=== PATIENT | male | born 1955 | race Caucasian/White ===

== ENCOUNTER 2017-01-01 21:50 | Inpatient (IN) | payer BC ==
[~2017-01-01] VITALS: Ht 182.9 cm; Wt 169.6 kg
[~2017-01-01 21:50] MED LIST: ATOR20TA PO; CITA40TA5 PO; CLOP75TA57 PO; INSU100V13 SQ; INSU100V31 SQ; LISI10TA2 PO; METF500T4 PO; NIAC500T PO; TAMS0.4C97 PO
[2017-01-01 22:42] LABS: BILIRUBIN,URINE SMALL (NEG); GLUCOSE,URINE >=1000 mg/dL (NEG); NITRITE,URINE NEGATIVE (NEG); PROTEIN,URINE 100 mg/dL (NEG-TRACE)
[2017-01-01 22:48] LABS: BASO % 0 % (0-3); EOS % 0 % (0-3); HEMOGLOBIN 9.6 g/dL (13.0-17.5); LYMPH # 0.5 x10^3/uL (1.0-4.8); LYMPH % 3 % (24-48); MEAN CORPUSCULAR HEMOGLOBIN 31 pg (25-35); MEAN CORPUSCULAR HGB CONC 33 g/dL (31-37); MEAN CORPUSCULAR VOLUME 93 fL (79-100); MONO % 9 % (0-9); NEUT % 88 % (31-73); PLATELET COUNT 142 x10^3/uL (140-400); RED BLOOD COUNT 3.13 x10^6/uL (4.30-5.70); RED CELL DISTRIBUTION WIDTH 15.3 % (11.5-14.5); WHITE BLOOD COUNT 16.7 x10^3/uL (4.0-11.0)
[2017-01-01 22:59] LABS: ALBUMIN/GLOBULIN RATIO 0.8 (1.0-1.7); CREATININE 1.8 mg/dL (0.7-1.3); GFR 38.4; POTASSIUM 4.3 mmol/L (3.5-5.1); TOTAL BILIRUBIN 1.5 mg/dL (0.2-1.0); TOTAL PROTEIN 6.7 g/dL (6.4-8.2)
[2017-01-01] MEDS ORDERED: IV NORMAL SALINE 1000ML BAG 1,000 ML IV ONE (23:00)
[2017-01-01 23:02] LABS: BACTERIA,URINE 0 /HPF (0-FEW); RBC,URINE 0 /HPF (0-2); SQUAMOUS EPITHELIAL CELL,UR OCC /LPF; WBC,URINE OCC /HPF (0-4)
[2017-01-02] VITALS (7 sets, daily range): BP systolic 85–128; BP diastolic 53–73
[2017-01-02] MEDS ORDERED: HYDROCORTISONE ACETATE 25 MG SUPP.RECT PR ONE
[2017-01-02] MEDS ORDERED: VANCOMYCIN 2 GM in IV NORMAL SALINE 500ML BAG 500 ML IV ONE ×2
[2017-01-02] MEDS ORDERED: AMPICILLIN/SULBACTAM 3 GM in IV NORMAL SALINE 100ML 100 ML IV ONE ×2
[2017-01-02] MEDS: IV NORMAL SALINE 1000ML BAG 1,000 ML IV SCH ×3 (00:32→04:10)
[2017-01-02] MEDS ORDERED: HYDROmorphone 2 MG/ML VIAL ONE (00:33)
[2017-01-02] MEDS ORDERED: ONDANSETRON PF 4 MG/2 ML VIAL. IV ONE (01:00)
[2017-01-02] MEDS ORDERED: HYDROmorphone 2 MG/ML VIAL IV ONE (01:00)
[2017-01-02] MEDS ORDERED: ACETAMINOPHEN 325 MG TABLET. PO PRN (01:15)
[2017-01-02] MEDS ORDERED: ONDANSETRON PF 4 MG/2 ML VIAL. IV PRN (01:15)
[2017-01-02 01:42] LABS: PLT ESTIMATE ADEQUATE (ADEQUATE)
[2017-01-02] MEDS: fentaNYL PF VIAL 100 MCG/2 ML VIAL IV PRN ×5 (01:59→20:45)
[2017-01-02] MEDS: VANCOMYCIN PER PHARMACY MC PRN ×2 (02:53→13:53)
[2017-01-02] MEDS ORDERED: ESOM40CA PO (03:02)
[2017-01-02] MEDS ORDERED: LOSA50TA6 PO (03:02)
[2017-01-02] MEDS ORDERED: CELE200C PO (03:02)
[2017-01-02] MEDS ORDERED: CHOL10003 PO (03:02)
[2017-01-02] MEDS ORDERED: INSU100C SQ (03:02)
[2017-01-02] MEDS ORDERED: GABA-586 PO (03:02)
--- NOTE | 2017-01-02 06:12 | PHYS DOC ---
Past Medical History Past Medical History: CVA, Depression, Diabetes-Type II, GERD, High Cholesterol , Hypertension, Other Additional Past Medical Histor: charcoit foot, NEUROPATHY, SLEEP APNEA Past Surgical History: Cholecystectomy, Other Additional Past Surgical Histo: right foot surgery, hemmorhoid surgery, non- descended testicle, hernia, R K Alcohol Use: None Drug Use: None Adult General Chief Complaint Chief Complaint: MULTIPLE COMPLAINTS HPI HPI Patient is a 61 year old [f__sex] who presents with [] Review of Systems Review of Systems Constitutional: Denies fever or chills [] Eyes: Denies change in visual acuity, redness, or eye pain [] HENT: Denies nasal congestion or sore throat [] Respiratory: Denies cough or shortness of breath [] Cardiovascular: No additional information not addressed in HPI [] GI: Denies abdominal pain, nausea, vomiting, bloody stools or diarrhea [] : Denies dysuria or hematuria [] Musculoskeletal: Denies back pain or joint pain [] Integument: Denies rash or skin lesions [] Neurologic: Denies headache, focal weakness or sensory changes [] Endocrine: Denies polyuria or polydipsia [] Current Medications Current Medications Current Medications Medications (Trade) Dose Ordered Sig/Serenity Start Time Stop Time Status Last Admin Dose Admin Sodium Chloride 1,000 ml @ 1,000 mls/hr 1X ONCE 01/01/17 23:00 01/01/17 23:59 DC 01/01/17 23:15 1,000 MLS/HR Vancomycin HCl (Vanco Per Pharmacy) 1 each PRN DAILY PRN 01/01/17 23:30 01/02/17 02:53 1 EACH Physical Exam Physical Exam Constitutional: Well developed, well nourished, no acute distress, non-toxic appearance. [] HENT: Normocephalic, atraumatic, bilateral external ears normal, oropharynx moist, no oral exudates, nose normal. [] Eyes: PERRLA, EOMI, conjunctiva normal, no discharge. [] Neck: Normal range of motion, no tenderness, supple, no stridor. [] Cardiovascular:Heart rate regular rhythm, no murmur [] Lungs & Thorax: Bilateral breath sounds clear to auscultation [] Abdomen: Bowel sounds normal, soft, no tenderness, no masses, no pulsatile masses. [] Skin: Warm, dry, no erythema, no rash. [] Back: No tenderness, no CVA tenderness. [] Extremities: No tenderness, no cyanosis, no clubbing, ROM intact, no edema. [] Neurologic: Alert and oriented X 3, normal motor function, normal sensory function, no focal deficits noted. [] Psychologic: Affect normal, judgement normal, mood normal. [] Current Patient Data Vital Signs Vital Signs Date Time Temp Pulse Resp B/P (MAP) Pulse Ox O2 Delivery O2 Flow Rate FiO2 01/01/17 23:30 102 36 96/54 (68) 95 Nasal Cannula 2.0 01/01/17 22:31 99.4 99.4 Lab Values Laboratory Tests Test 01/01/17 22:23 01/01/17 22:25 Glucose (Fingerstick) 453 mg/dL (70-99) H White Blood Count 16.7 x10^3/uL (4.0-11.0) H Red Blood Count 3.13 x10^6/uL (4.30-5.70) L Hemoglobin 9.6 g/dL (13.0-17.5) L Hematocrit 29.0 % (39.0-53.0) L Mean Corpuscular Volume 93 fL (79-100) Mean Corpuscular Hemoglobin 31 pg (25-35) Mean Corpuscular Hemoglobin Concent 33 g/dL (31-37) Red Cell Distribution Width 15.3 % (11.5-14.5) H Platelet Count 142 x10^3/uL (140-400) Neutrophils (%) (Auto) 88 % (31-73) H Lymphocytes (%) (Auto) 3 % (24-48) L Monocytes (%) (Auto) 9 % (0-9) Eosinophils (%) (Auto) 0 % (0-3) Basophils (%) (Auto) 0 % (0-3) Neutrophils # (Auto) 14.6 x10^3uL (1.8-7.7) H Lymphocytes # (Auto) 0.5 x10^3/uL (1.0-4.8) L Monocytes # (Auto) 1.5 x10^3/uL (0.0-1.1) H Eosinophils # (Auto) 0.0 x10^3/uL (0.0-0.7) Basophils # (Auto) 0.0 x10^3/uL (0.0-0.2) Segmented Neutrophils % 68 % (35-66) H Band Neutrophils % 23 % (0-9) H Lymphocytes % 5 % (24-48) L Monocytes % 4 % (0-10) Platelet Estimate Adequate (ADEQUATE) Urine Collection Type Unknown Urine Color Evita Urine Clarity Cloudy Urine pH 5.0 Urine Specific [place] >=1.030 Urine Protein 100 mg/dL (NEG-TRACE) Urine Glucose (UA) >=1000 mg/dL (NEG) Urine Ketones (Stick) Trace mg/dL (NEG) Urine Blood Trace (NEG) Urine Nitrite Negative (NEG) Urine Bilirubin Small (NEG) Urine Urobilinogen Dipstick 1.0 mg/dL (0.2 mg/dL) Urine Leukocyte Esterase Negative (NEG) Urine RBC 0 /HPF (0-2) Urine WBC Occ /HPF (0-4) Urine Squamous Epithelial Cells Occ /LPF Urine Bacteria 0 /HPF (0-FEW) Urine Hyaline Casts Few /HPF Urine Granular Casts Few /HPF Sodium Level 132 mmol/L (136-145) L Potassium Level 4.3 mmol/L (3.5-5.1) Chloride Level 96 mmol/L (98-107) L Carbon Dioxide Level 20 mmol/L (21-32) L Anion Gap 16 (6-14) H Blood Urea Nitrogen 30 mg/dL (8-26) H Creatinine 1.8 mg/dL (0.7-1.3) H Estimated GFR (Cockcroft-Gault) 38.4 BUN/Creatinine Ratio 17 (6-20) Glucose Level 504 mg/dL (70-99) *H Calcium Level 8.0 mg/dL (8.5-10.1) L Total Bilirubin 1.5 mg/dL (0.2-1.0) H Aspartate Amino Transferase (AST) 14 U/L (15-37) L Alanine Aminotransferase (ALT) 22 U/L (16-63) Alkaline Phosphatase 90 U/L (46-116) Troponin I Quantitative < 0.017 ng/mL (0.000-0.055) Total Protein 6.7 g/dL (6.4-8.2) Albumin 3.0 g/dL (3.4-5.0) L Albumin/Globulin Ratio 0.8 (1.0-1.7) L Lipase 81 U/L (73-393) Laboratory Tests 01/01/17 22:25 Laboratory Tests 01/01/17 22:25 EKG EKG [] Radiology/Procedures Radiology/Procedures [] Course & Med Decision Making Course & Med Decision Making Pertinent Labs and Imaging studies reviewed. (See chart for details) [] Dragon Disclaimer Dragon Disclaimer This electronic medical record was generated, in whole or in part, using a voice recognition dictation system. Departure Departure Impression: Primary Impression: Diabetic foot ulcer Additional Impressions: Sepsis Hyperglycemia Disposition: ADMITTED INPATIENT Admitting Physician: Other (reusch) Condition: GUARDED Referrals: TEE BENAVIDES MD (PCP) Problem Qualifiers LEO SCHULTE MD Jan 02, 2017 06:12
--- NOTE | 2017-01-02 08:18 | RAD ---
Indication diabetic. Admission. Protocol study. A single view of the chest was obtained and is compared to an exam 06/09/2013. Heart size is at the upper limits of normal. There is no congestive heart failure. There is no focal infiltrate. Significant pleural fluid is not seen. There is no pneumothorax. Some increased density at the left lung base is likely a reflection of overlying soft tissues. IMPRESSION: No acute finding apparent in the chest
--- NOTE | 2017-01-02 08:25 | RAD ---
Indication diabetic foot. Ulcer.. Assess for potential osteomyelitis. AP oblique and lateral views of the right foot were obtained. Arthrodesis procedure is noted. Vascular calcification is noted. No acute bony finding is seen. Plain film findings of osteomyelitis are not seen. IMPRESSION: Chronic changes. No acute bony finding seen
[2017-01-02] MEDS ORDERED: IV NORMAL SALINE 1000ML BAG 1,000 ML IV ONE (08:45)
[2017-01-02] MEDS ORDERED: DEXTROSE 50% 25 GM / 50ML DISP.SYRIN. IV PRN (08:45)
[2017-01-02] MEDS ORDERED: CELECOXIB 200 MG CAPSULE. PO SCH (09:00)
--- NOTE | 2017-01-02 09:09 | PDOC1 ---
History and Physical Date of Admission Date of Admission DATE: 01/02/17 TIME: 09:01 History of Present Illness History of Present Illness Bunny presents with pain and inability to walk. Pain in right heel is new, new lesion, ulcer with weeping, photos taken, now wrapped. he complains of pain, 6/10, left heel, right knee, right hip and low back. Pain has been worsening, and progressively he cannot walk, the past few weeks. Blood sugar in 500 range, at home, sometime > 600, he has not notified Dr. Costello of this. ONly takes meal-time insulin, 23 u. 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 Current Problem List Problem List Problems Medical Problems: (1) Diabetic foot ulcer Status: Acute (2) Hyperglycemia Status: Acute (3) Sepsis Status: Acute Problems: Current Medications Current Medications Current Medications Sodium Chloride 1,000 ml @ 1,000 mls/hr 1X ONCE IV Last administered on 23:15; Start 01/01/17 at 23:00; Stop 01/01/17 at 23:59; Status DC Ampicillin Sodium/ Sulbactam Sodium 3 gm/Sodium Chloride 100 ml @ 200 mls/hr 1X ONCE IV Last administered on 01/01/17 23:43; Start 01/02/17 at 00:00; Stop 01/02/17 at 00:29; Status DC Vancomycin HCl (Vanco Per Pharmacy) 1 each PRN DAILY PRN MC SEE COMMENTS Last administered on 01/02/17 02:53; Start 01/01/17 at 23:30 Vancomycin HCl 2 gm/Sodium Chloride 500 ml @ 250 mls/hr 1X ONCE IV Last administered on 01/02/17 00:32; Start 01/02/17 at 00:00; Stop 01/02/17 at 01:59 ; Status DC Sodium Chloride 1,000 ml @ 2,000 mls/hr Q30M IV Last administered on 04:10; Start 01/02/17 at 00:00; Stop 01/02/17 at 02:15; Status DC Hydrocortisone Acetate (Anucort-Hc) 25 mg 1X ONCE FL Last administered on 01/01 23:43; Start 01/02/17 at 00:00; Stop 01/02/17 at 00:01; Status DC Hydromorphone HCl (Dilaudid) 1 mg 1X ONCE IV Last administered on 01/02/17 00 :35; Start 01/02/17 at 01:00; Stop 01/02/17 at 01:01; Status DC Ondansetron HCl (Zofran) 4 mg 1X ONCE IV Last administered on 01/02/17 00:35 ; Start 01/02/17 at 01:00; Stop 01/02/17 at 01:01; Status DC Hydromorphone HCl (Dilaudid) 2 mg STK-MED ONCE .ROUTE ; Start 01/02/17 at 00:33 ; Stop 01/02/17 at 00:34; Status DC Ondansetron HCl (Zofran) 4 mg PRN Q8HRS PRN IV NAUSEA/VOMITING; Start 01/02/17 at 01:15; Stop 01/03/17 at 01:14 Fentanyl Citrate (Fentanyl 2ml Vial) 50 mcg PRN Q2HR PRN IV SEVERE PAIN Last administered on 01/02/17 04:09; Start 01/02/17 at 01:15; Stop 01/03/17 at 01:14 Acetaminophen (Tylenol) 650 mg PRN Q4HRS PRN PO FEVER; Start 01/02/17 at 01:15 ; Stop 01/03/17 at 01:14 Vancomycin HCl 2 gm/Sodium Chloride 500 ml @ 250 mls/hr Q12H IV ; Start at 12:00 Vancomycin HCl 1 each 1X ONCE MC ; Start 01/03/17 at 11:30; Stop 01/03/17 at 11 :31 Atorvastatin Calcium (Lipitor) 20 mg QHS PO ; Start 01/02/17 at 21:00 Celecoxib (CeleBREX) 200 mg BID PO ; Start 01/02/17 at 09:00 Vitamin D (Vitamin D3) 1,000 unit DAILY PO ; Start 01/02/17 at 09:00 Clopidogrel Bisulfate (Plavix) 75 mg DAILY PO ; Start 01/02/17 at 09:00 Losartan Potassium (Cozaar) 50 mg DAILY PO ; Start 01/02/17 at 09:00 Metformin HCl (Glucophage) 500 mg BID PO ; Start 01/02/17 at 09:00 Tamsulosin HCl (Flomax) 0.4 mg HS PO ; Start 01/02/17 at 21:00 Citalopram Hydrobromide (CeleXA) 40 mg DAILY PO ; Start 01/02/17 at 09:00 Pantoprazole Sodium (Protonix) 40 mg DAILYAC PO ; Start 01/02/17 at 09:00 Gabapentin (Neurontin) 300 mg BID PO ; Start 01/02/17 at 09:00 Insulin Aspart (NovoLOG) 23 units TIDAC SQ ; Start 01/02/17 at 11:30 Insulin Aspart (NovoLOG) 0-9 UNITS QIDACHS SQ ; Start 01/02/17 at 11:30 Dextrose (Dextrose 50%-Water Syringe) 12.5 gm PRN Q15MIN PRN IV SEE COMMENTS; Start 01/02/17 at 08:45 Sodium Chloride 1,000 ml @ 100 mls/hr 1X ONCE IV ; Start 01/02/17 at 08:45; Stop 01/02/17 at 18:44 Lidocaine (Lidoderm) 1 patch DAILY TD ; Start 01/02/17 at 09:00; Status UNV Insulin Detemir (Levemir) 40 units DAILY08 SQ ; Start 01/02/17 at 09:00; Status UNV Active Scripts Active Reported Humalog (Insulin Lispro) 100 Unit/1 Ml Cartridge 23 Unit SQ TIDAC Vitamin D3 (Cholecalciferol (Vitamin D3)) 1,000 Unit Tablet 1 Tab PO DAILY Nexium Capsule (Esomeprazole Magnesium) 40 Mg Capsule.dr 1 Cap PO DAILY Losartan Potassium 50 Mg Tablet 50 Mg PO DAILY Gabapentin 300 Mg Capsule 300 Mg PO BID Celebrex (Celecoxib) 200 Mg Capsule 200 Mg PO BID 30 Days Citalopram Hbr (Citalopram Hydrobromide) 40 Mg Tablet 40 Mg PO DAILY Lipitor (Atorvastatin Calcium) 20 Mg Tablet 20 Mg PO QHS Flomax (Tamsulosin Hcl) 0.4 Mg Cap.er.24h 0.4 Mg PO HS Metformin Hcl 500 Mg Tablet 500 Mg PO BID Plavix (Clopidogrel Bisulfate) 75 Mg Tablet 75 Mg PO DAILY Allergies Allergies: Coded Allergies: morphine (Verified Allergy, Intermediate, 01/02/17) causes hallucinations Physical Exam General: Alert, Oriented X3, Cooperative, mild distress HEENT: EOMI, Mucous membr. moist/pink Lungs: Clear to auscultation, Normal air movement Heart: S1S2, no gallops, no murmurs Abdomen: Normal bowel sounds, Soft (very obese) Extremities: No clubbing, Other (1+ BLE edema) Skin: No rashes Neuro: Normal speech, Sensation intact Psych/Mental Status: Mental status NL, Mood NL Vitals Vitals Vital Signs Date Time Temp Pulse Resp B/P (MAP) Pulse Ox O2 Delivery O2 Flow Rate FiO2 01/02/17 07:00 98.2 99 22 114/71 (85) 96 Room Air 98.2 01/02/17 04:39 2.0 Labs Labs Laboratory Tests Test 01/01/17 22:23 01/01/17 22:25 01/02/17 00:05 01/02/17 06:51 Glucose (Fingerstick) 453 mg/dL (70-99) White Blood Count 16.7 x10^3/uL (4.0-11.0) Red Blood Count 3.13 x10^6/uL (4.30-5.70) Hemoglobin 9.6 g/dL (13.0-17.5) Hematocrit 29.0 % (39.0-53.0) Mean Corpuscular Volume 93 fL (79-100) Mean Corpuscular Hemoglobin 31 pg (25-35) Mean Corpuscular Hemoglobin Concent 33 g/dL (31-37) Red Cell Distribution Width 15.3 % (11.5-14.5) Platelet Count 142 x10^3/uL (140-400) Neutrophils (%) (Auto) 88 % (31-73) Lymphocytes (%) (Auto) 3 % (24-48) Monocytes (%) (Auto) 9 % (0-9) Eosinophils (%) (Auto) 0 % (0-3) Basophils (%) (Auto) 0 % (0-3) Neutrophils # (Auto) 14.6 x10^3uL (1.8-7.7) Lymphocytes # (Auto) 0.5 x10^3/uL (1.0-4.8) Monocytes # (Auto) 1.5 x10^3/uL (0.0-1.1) Eosinophils # (Auto) 0.0 x10^3/uL (0.0-0.7) Basophils # (Auto) 0.0 x10^3/uL (0.0-0.2) Segmented Neutrophils % 68 % (35-66) Band Neutrophils % 23 % (0-9) Lymphocytes % 5 % (24-48) Monocytes % 4 % (0-10) Platelet Estimate Adequate (ADEQUATE) Urine Collection Type Unknown Urine Color Evita Urine Clarity Cloudy Urine pH 5.0 Urine Specific [place] >=1.030 Urine Protein 100 mg/dL (NEG-TRACE) Urine Glucose (UA) >=1000 mg/dL (NEG) Urine Ketones (Stick) Trace mg/dL (NEG) Urine Blood Trace (NEG) Urine Nitrite Negative (NEG) Urine Bilirubin Small (NEG) Urine Urobilinogen Dipstick 1.0 mg/dL (0.2 mg/dL) Urine Leukocyte Esterase Negative (NEG) Urine RBC 0 /HPF (0-2) Urine WBC Occ /HPF (0-4) Urine Squamous Epithelial Cells Occ /LPF Urine Bacteria 0 /HPF (0-FEW) Urine Hyaline Casts Few /HPF Urine Granular Casts Few /HPF Sodium Level 132 mmol/L (136-145) Potassium Level 4.3 mmol/L (3.5-5.1) Chloride Level 96 mmol/L (98-107) Carbon Dioxide Level 20 mmol/L (21-32) Anion Gap 16 (6-14) Blood Urea Nitrogen 30 mg/dL (8-26) Creatinine 1.8 mg/dL (0.7-1.3) Estimated GFR (Cockcroft-Gault) 38.4 BUN/Creatinine Ratio 17 (6-20) Glucose Level 504 mg/dL (70-99) Calcium Level 8.0 mg/dL (8.5-10.1) Total Bilirubin 1.5 mg/dL (0.2-1.0) Aspartate Amino Transf (AST/SGOT) 14 U/L (15-37) Alanine Aminotransferase (ALT/SGPT) 22 U/L (16-63) Alkaline Phosphatase 90 U/L (46-116) Troponin I Quantitative < 0.017 ng/mL (0.000-0.055) Total Protein 6.7 g/dL (6.4-8.2) Albumin 3.0 g/dL (3.4-5.0) Albumin/Globulin Ratio 0.8 (1.0-1.7) Lipase 81 U/L (73-393) Lactic Acid Level 3.3 mmol/L (0.4-2.0) 1.1 mmol/L (0.4-2.0) Test 01/02/17 07:30 Glucose (Fingerstick) 304 mg/dL (70-99) Laboratory Tests Test 01/01/17 22:23 01/01/17 22:25 01/02/17 00:05 01/02/17 06:51 Glucose (Fingerstick) 453 mg/dL (70-99) White Blood Count 16.7 x10^3/uL (4.0-11.0) Red Blood Count 3.13 x10^6/uL (4.30-5.70) Hemoglobin 9.6 g/dL (13.0-17.5) Hematocrit 29.0 % (39.0-53.0) Mean Corpuscular Volume 93 fL (79-100) Mean Corpuscular Hemoglobin 31 pg (25-35) Mean Corpuscular Hemoglobin Concent 33 g/dL (31-37) Red Cell Distribution Width 15.3 % (11.5-14.5) Platelet Count 142 x10^3/uL (140-400) Neutrophils (%) (Auto) 88 % (31-73) Lymphocytes (%) (Auto) 3 % (24-48) Monocytes (%) (Auto) 9 % (0-9) Eosinophils (%) (Auto) 0 % (0-3) Basophils (%) (Auto) 0 % (0-3) Neutrophils # (Auto) 14.6 x10^3uL (1.8-7.7) Lymphocytes # (Auto) 0.5 x10^3/uL (1.0-4.8) Monocytes # (Auto) 1.5 x10^3/uL (0.0-1.1) Eosinophils # (Auto) 0.0 x10^3/uL (0.0-0.7) Basophils # (Auto) 0.0 x10^3/uL (0.0-0.2) Segmented Neutrophils % 68 % (35-66) Band Neutrophils % 23 % (0-9) Lymphocytes % 5 % (24-48) Monocytes % 4 % (0-10) Platelet Estimate Adequate (ADEQUATE) Urine Collection Type Unknown Urine Color Evita Urine Clarity Cloudy Urine pH 5.0 Urine Specific [place] >=1.030 Urine Protein 100 mg/dL (NEG-TRACE) Urine Glucose (UA) >=1000 mg/dL (NEG) Urine Ketones (Stick) Trace mg/dL (NEG) Urine Blood Trace (NEG) Urine Nitrite Negative (NEG) Urine Bilirubin Small (NEG) Urine Urobilinogen Dipstick 1.0 mg/dL (0.2 mg/dL) Urine Leukocyte Esterase Negative (NEG) Urine RBC 0 /HPF (0-2) Urine WBC Occ /HPF (0-4) Urine Squamous Epithelial Cells Occ /LPF Urine Bacteria 0 /HPF (0-FEW) Urine Hyaline Casts Few /HPF Urine Granular Casts Few /HPF Sodium Level 132 mmol/L (136-145) Potassium Level 4.3 mmol/L (3.5-5.1) Chloride Level 96 mmol/L (98-107) Carbon Dioxide Level 20 mmol/L (21-32) Anion Gap 16 (6-14) Blood Urea Nitrogen 30 mg/dL (8-26) Creatinine 1.8 mg/dL (0.7-1.3) Estimated GFR (Cockcroft-Gault) 38.4 BUN/Creatinine Ratio 17 (6-20) Glucose Level 504 mg/dL (70-99) Calcium Level 8.0 mg/dL (8.5-10.1) Total Bilirubin 1.5 mg/dL (0.2-1.0) Aspartate Amino Transf (AST/SGOT) 14 U/L (15-37) Alanine Aminotransferase (ALT/SGPT) 22 U/L (16-63) Alkaline Phosphatase 90 U/L (46-116) Troponin I Quantitative < 0.017 ng/mL (0.000-0.055) Total Protein 6.7 g/dL (6.4-8.2) Albumin 3.0 g/dL (3.4-5.0) Albumin/Globulin Ratio 0.8 (1.0-1.7) Lipase 81 U/L (73-393) Lactic Acid Level 3.3 mmol/L (0.4-2.0) 1.1 mmol/L (0.4-2.0) Test 01/02/17 07:30 Glucose (Fingerstick) 304 mg/dL (70-99) VTE Prophylaxis Ordered VTE Prophylaxis Devices: No VTE Pharmacological Prophylaxi: Yes Assessment/Plan Assessment/Plan right foot heel ulceration, DM2 foot ulcer, vanc and unasyn started. sepsis, w/ HTN on admit, accel from marked pain, now improved Pain is severe, knee, hip and back pain, try lidoderm and narcotic meds for control. Pain is too high to asif MRI this AM. may need MRI foot tomorrow consult Physiatry for poor mobility, mult pain problems. moderate malnutrition in morbid obesity, BMI 46 Dm2, very poor control, add SSI and long-acting, he has Endo f/u sched for january Anemia of CKD, CKD 3 of DM2 hyponatremia, likely dry, IV Fluid, recheck labs in AM DARYL WANG MD Jan 02, 2017 09:09
[2017-01-02] MEDS: metFORMIN 500 MG TABLET PO SCH ×2 (09:50→23:12)
[2017-01-02] MEDS: CHOLECALCIFEROL (VITAMIN D3) 1,000 UNIT TABLET PO SCH (09:50)
[2017-01-02] MEDS: PANTOPRAZOLE 40 MG TABLET.DR. PO SCH (09:50)
[2017-01-02] MEDS: CITALOPRAM 20 MG TABLET. PO SCH (09:50)
[2017-01-02] MEDS: GABAPENTIN 300 MG CAPSULE. PO SCH ×2 (09:51→23:12)
[2017-01-02] MEDS: LOSARTAN POTASSIUM 50 MG TABLET. PO SCH (09:51)
[2017-01-02] MEDS: CLOPIDOGREL BISULFATE 75 MG TABLET PO SCH (09:51)
[2017-01-02] MEDS: ENOXAPARIN 40 MG/0.4 ML SYRINGE. SQ SCH ×2 (09:52→23:12)
[2017-01-02] MEDS: LIDOCAINE (700MG/PATCH) PATCH. TD SCH (09:52)
--- NOTE | 2017-01-02 11:45 | RAD ---
Indication left calf pain and swelling. Grayscale color Doppler and spectral imaging was performed. Examination was targeted to the veins of the left lower extremity. The common femoral, femoral and popliteal veins demonstrate normal flow compressibility and augmentation. No thrombus is seen. The visualized calf veins appeared unremarkable. The right common femoral vein also appeared normal. IMPRESSION: Negative left lower extremity venous analysis for DVT
--- NOTE | 2017-01-02 11:56 | RAD ---
Indication swelling and pain. AP oblique and lateral views of the left ankle were obtained. No prior imaging of the ankle is available. There is an essentially nondisplaced spiral fracture involving the distal fibula. There is some soft tissue swelling. An additional finding is not seen. IMPRESSION: Nondisplaced fracture distal fibula
--- NOTE | 2017-01-02 11:57 | PDOC2 ---
CONSULT Date of Consult Date of Consult DATE: 01/02/17 TIME: 11:54 Reason for Consult Reason for Consult: Bilateral foot and ankle issues, right heel ulcer, left ankle pain Referring Physician Referring Physician: Sil Identification/Chief Complaint Chief Complaint Right heel ulcer, and left ankle pain Problems: Source Source: Chart review, Patient History of Present Illness Reason for Visit: This 61-year-old man who is retired but lives in his own home and "hobbles" chair to chair has had a right ankle heel ulcer for 2 weeks. He has a previous right ankle fusion surgery performed by Dr. Cyril Lundberg in 2012. He developed left ankle pain, possible trauma. He has severe neuropathy in both lower extremities. He is admitted to the hospital, and I was asked to see him by Dr. Mujica Past Medical History Cardiovascular: HTN, Hyperlipidemia CENTRAL NERVOUS SYSTEM: CVA, Periperal neuropathy, Other (sleep apnea) GI: GERD Psych: Depression Musculoskeletal: low back pain, Osteoarthritis Renal/: Chronic renal insuff Endocrine: Diabetes Current Problem List Problem List Problems Medical Problems: (1) Diabetic foot ulcer Status: Acute (2) Hyperglycemia Status: Acute (3) Sepsis Status: Acute Current Medications Current Medications Current Medications Sodium Chloride 1,000 ml @ 1,000 mls/hr 1X ONCE IV Last administered on 23:15; Start 01/01/17 at 23:00; Stop 01/01/17 at 23:59; Status DC Ampicillin Sodium/ Sulbactam Sodium 3 gm/Sodium Chloride 100 ml @ 200 mls/hr 1X ONCE IV Last administered on 01/01/17 23:43; Start 01/02/17 at 00:00; Stop 01/02/17 at 00:29; Status DC Vancomycin HCl (Vanco Per Pharmacy) 1 each PRN DAILY PRN MC SEE COMMENTS Last administered on 01/02/17 02:53; Start 01/01/17 at 23:30 Vancomycin HCl 2 gm/Sodium Chloride 500 ml @ 250 mls/hr 1X ONCE IV Last administered on 01/02/17 00:32; Start 01/02/17 at 00:00; Stop 01/02/17 at 01:59 ; Status DC Sodium Chloride 1,000 ml @ 2,000 mls/hr Q30M IV Last administered on 04:10; Start 01/02/17 at 00:00; Stop 01/02/17 at 02:15; Status DC Hydrocortisone Acetate (Anucort-Hc) 25 mg 1X ONCE ND Last administered on 01/01 23:43; Start 01/02/17 at 00:00; Stop 01/02/17 at 00:01; Status DC Hydromorphone HCl (Dilaudid) 1 mg 1X ONCE IV Last administered on 01/02/17 00 :35; Start 01/02/17 at 01:00; Stop 01/02/17 at 01:01; Status DC Ondansetron HCl (Zofran) 4 mg 1X ONCE IV Last administered on 01/02/17 00:35 ; Start 01/02/17 at 01:00; Stop 01/02/17 at 01:01; Status DC Hydromorphone HCl (Dilaudid) 2 mg STK-MED ONCE .ROUTE ; Start 01/02/17 at 00:33 ; Stop 01/02/17 at 00:34; Status DC Ondansetron HCl (Zofran) 4 mg PRN Q8HRS PRN IV NAUSEA/VOMITING; Start 01/02/17 at 01:15; Stop 01/03/17 at 01:14 Fentanyl Citrate (Fentanyl 2ml Vial) 50 mcg PRN Q2HR PRN IV SEVERE PAIN Last administered on 01/02/17 09:38; Start 01/02/17 at 01:15; Stop 01/03/17 at 01:14 Acetaminophen (Tylenol) 650 mg PRN Q4HRS PRN PO FEVER; Start 01/02/17 at 01:15 ; Stop 01/03/17 at 01:14 Vancomycin HCl 2 gm/Sodium Chloride 500 ml @ 250 mls/hr Q12H IV ; Start at 12:00 Vancomycin HCl 1 each 1X ONCE MC ; Start 01/03/17 at 11:30; Stop 01/03/17 at 11 :31 Atorvastatin Calcium (Lipitor) 20 mg QHS PO ; Start 01/02/17 at 21:00 Celecoxib (CeleBREX) 200 mg BID PO Last administered on 01/02/17 09:51; Start 01/02/17 at 09:00; Stop 01/02/17 at 10:30; Status DC Vitamin D (Vitamin D3) 1,000 unit DAILY PO Last administered on 01/02/17 09:50 ; Start 01/02/17 at 09:00 Clopidogrel Bisulfate (Plavix) 75 mg DAILY PO Last administered on 01/02/17 09 :51; Start 01/02/17 at 09:00 Losartan Potassium (Cozaar) 50 mg DAILY PO Last administered on 01/02/17 09:51 ; Start 01/02/17 at 09:00 Metformin HCl (Glucophage) 500 mg BID PO Last administered on 01/02/17 09:50; Start 01/02/17 at 09:00 Tamsulosin HCl (Flomax) 0.4 mg HS PO ; Start 01/02/17 at 21:00 Citalopram Hydrobromide (CeleXA) 40 mg DAILY PO Last administered on 01/02/17 09:50; Start 01/02/17 at 09:00 Pantoprazole Sodium (Protonix) 40 mg DAILYAC PO Last administered on 01/02/17 09:50; Start 01/02/17 at 09:00 Gabapentin (Neurontin) 300 mg BID PO Last administered on 01/02/17 09:51; Start 01/02/17 at 09:00 Insulin Aspart (NovoLOG) 23 units TIDAC SQ ; Start 01/02/17 at 11:30 Insulin Aspart (NovoLOG) 0-9 UNITS QIDACHS SQ ; Start 01/02/17 at 11:30 Dextrose (Dextrose 50%-Water Syringe) 12.5 gm PRN Q15MIN PRN IV SEE COMMENTS; Start 01/02/17 at 08:45 Sodium Chloride 1,000 ml @ 100 mls/hr 1X ONCE IV Last administered on 09:50; Start 01/02/17 at 08:45; Stop 01/02/17 at 18:44 Lidocaine (Lidoderm) 1 patch DAILY TD Last administered on 01/02/17 09:52; Start 01/02/17 at 09:00 Insulin Detemir (Levemir) 40 units DAILY08 SQ ; Start 01/02/17 at 09:00 Enoxaparin Sodium (Lovenox Per Pharmacy Prophylaxis Dosing) 1 each PRN DAILY PRN MC SEE COMMENTS; Start 01/02/17 at 09:15 Enoxaparin Sodium (Lovenox 40mg Syringe) 40 mg Q12H SQ Last administered on 7/ 22/17at 09:52; Start 01/02/17 at 10:00 Polysaccharide Iron Complex (Niferex 150) 150 mg BID PO ; Start 01/02/17 at 12: 00 Bisacodyl (Dulcolax Tab) 10 mg DAILY PO ; Start 01/02/17 at 12:00 Senna/Docusate Sodium (Senna Plus) 2 tab PRN BID PRN PO CONSTIPATION; Start at 10:45 Senna/Docusate Sodium (Senna Plus) 1 tab BID PO ; Start 01/02/17 at 12:00 Active Scripts Active Reported Humalog (Insulin Lispro) 100 Unit/1 Ml Cartridge 23 Unit SQ TIDAC Vitamin D3 (Cholecalciferol (Vitamin D3)) 1,000 Unit Tablet 1 Tab PO DAILY Nexium Capsule (Esomeprazole Magnesium) 40 Mg Capsule.dr 1 Cap PO DAILY Losartan Potassium 50 Mg Tablet 50 Mg PO DAILY Gabapentin 300 Mg Capsule 300 Mg PO BID Celebrex (Celecoxib) 200 Mg Capsule 200 Mg PO BID 30 Days Citalopram Hbr (Citalopram Hydrobromide) 40 Mg Tablet 40 Mg PO DAILY Lipitor (Atorvastatin Calcium) 20 Mg Tablet 20 Mg PO QHS Flomax (Tamsulosin Hcl) 0.4 Mg Cap.er.24h 0.4 Mg PO HS Metformin Hcl 500 Mg Tablet 500 Mg PO BID Plavix (Clopidogrel Bisulfate) 75 Mg Tablet 75 Mg PO DAILY Allergies Allergies: Coded Allergies: morphine (Verified Allergy, Intermediate, 01/02/17) causes hallucinations ROS General: No: Chills, Night Sweats PSYCHOLOGICAL ROS: YES: Depression Respiratory: YES: Cough Musculoskeletal: Yes Gait Disturbance Skin: Yes Skin Lesion Changes Physical Exam General: Cooperative, mild distress HEENT: Atraumatic Lungs: Normal air movement Heart: Regular rate Abdomen: Soft Extremities: Other (thready dorsalis pedis pulse bilaterally, barely palpable) Skin: Other (right heel ulcer, full-thickness with necrosis. Probable dry gangrene, possible deep osteomyelitis) Neuro: Other (nearly absent bilateral lower extremity light touch sensation, due to severe bilateral diabetic neuropathy) MUSCULOSKELETAL: Abnormal exam of right (calcaneus as above. The ankle proper seems more benign, and there are well-healed surgical scars from the prior ankle fusion surgery), Abnormal exam of left (ankle, with tenderness, swelling and trace warmth. Examination is suspicious for either trauma, gout flare at the ankle joint, or possibly a low-grade infection) Vitals VITALS Vital Signs Date Time Temp Pulse Resp B/P (MAP) Pulse Ox O2 Delivery O2 Flow Rate FiO2 01/02/17 11:00 98.0 104 22 105/59 (74) 90 Room Air 98.0 01/02/17 10:08 2.0 Labs Labs Laboratory Tests Test 01/01/17 22:23 01/01/17 22:25 01/02/17 00:05 01/02/17 06:51 Glucose (Fingerstick) 453 mg/dL (70-99) White Blood Count 16.7 x10^3/uL (4.0-11.0) Red Blood Count 3.13 x10^6/uL (4.30-5.70) Hemoglobin 9.6 g/dL (13.0-17.5) Hematocrit 29.0 % (39.0-53.0) Mean Corpuscular Volume 93 fL (79-100) Mean Corpuscular Hemoglobin 31 pg (25-35) Mean Corpuscular Hemoglobin Concent 33 g/dL (31-37) Red Cell Distribution Width 15.3 % (11.5-14.5) Platelet Count 142 x10^3/uL (140-400) Neutrophils (%) (Auto) 88 % (31-73) Lymphocytes (%) (Auto) 3 % (24-48) Monocytes (%) (Auto) 9 % (0-9) Eosinophils (%) (Auto) 0 % (0-3) Basophils (%) (Auto) 0 % (0-3) Neutrophils # (Auto) 14.6 x10^3uL (1.8-7.7) Lymphocytes # (Auto) 0.5 x10^3/uL (1.0-4.8) Monocytes # (Auto) 1.5 x10^3/uL (0.0-1.1) Eosinophils # (Auto) 0.0 x10^3/uL (0.0-0.7) Basophils # (Auto) 0.0 x10^3/uL (0.0-0.2) Segmented Neutrophils % 68 % (35-66) Band Neutrophils % 23 % (0-9) Lymphocytes % 5 % (24-48) Monocytes % 4 % (0-10) Platelet Estimate Adequate (ADEQUATE) Urine Collection Type Unknown Urine Color Evita Urine Clarity Cloudy Urine pH 5.0 Urine Specific [place] >=1.030 Urine Protein 100 mg/dL (NEG-TRACE) Urine Glucose (UA) >=1000 mg/dL (NEG) Urine Ketones (Stick) Trace mg/dL (NEG) Urine Blood Trace (NEG) Urine Nitrite Negative (NEG) Urine Bilirubin Small (NEG) Urine Urobilinogen Dipstick 1.0 mg/dL (0.2 mg/dL) Urine Leukocyte Esterase Negative (NEG) Urine RBC 0 /HPF (0-2) Urine WBC Occ /HPF (0-4) Urine Squamous Epithelial Cells Occ /LPF Urine Bacteria 0 /HPF (0-FEW) Urine Hyaline Casts Few /HPF Urine Granular Casts Few /HPF Sodium Level 132 mmol/L (136-145) Potassium Level 4.3 mmol/L (3.5-5.1) Chloride Level 96 mmol/L (98-107) Carbon Dioxide Level 20 mmol/L (21-32) Anion Gap 16 (6-14) Blood Urea Nitrogen 30 mg/dL (8-26) Creatinine 1.8 mg/dL (0.7-1.3) Estimated GFR (Cockcroft-Gault) 38.4 BUN/Creatinine Ratio 17 (6-20) Glucose Level 504 mg/dL (70-99) Calcium Level 8.0 mg/dL (8.5-10.1) Total Bilirubin 1.5 mg/dL (0.2-1.0) Aspartate Amino Transf (AST/SGOT) 14 U/L (15-37) Alanine Aminotransferase (ALT/SGPT) 22 U/L (16-63) Alkaline Phosphatase 90 U/L (46-116) Troponin I Quantitative < 0.017 ng/mL (0.000-0.055) Total Protein 6.7 g/dL (6.4-8.2) Albumin 3.0 g/dL (3.4-5.0) Albumin/Globulin Ratio 0.8 (1.0-1.7) Lipase 81 U/L (73-393) Lactic Acid Level 3.3 mmol/L (0.4-2.0) 1.1 mmol/L (0.4-2.0) Test 01/02/17 07:30 01/02/17 10:55 01/02/17 11:35 Glucose (Fingerstick) 304 mg/dL (70-99) 392 mg/dL (70-99) Uric Acid 6.9 mg/dL (3.5-7.2) Laboratory Tests Test 01/01/17 22:23 01/01/17 22:25 01/02/17 00:05 01/02/17 06:51 Glucose (Fingerstick) 453 mg/dL (70-99) White Blood Count 16.7 x10^3/uL (4.0-11.0) Red Blood Count 3.13 x10^6/uL (4.30-5.70) Hemoglobin 9.6 g/dL (13.0-17.5) Hematocrit 29.0 % (39.0-53.0) Mean Corpuscular Volume 93 fL (79-100) Mean Corpuscular Hemoglobin 31 pg (25-35) Mean Corpuscular Hemoglobin Concent 33 g/dL (31-37) Red Cell Distribution Width 15.3 % (11.5-14.5) Platelet Count 142 x10^3/uL (140-400) Neutrophils (%) (Auto) 88 % (31-73) Lymphocytes (%) (Auto) 3 % (24-48) Monocytes (%) (Auto) 9 % (0-9) Eosinophils (%) (Auto) 0 % (0-3) Basophils (%) (Auto) 0 % (0-3) Neutrophils # (Auto) 14.6 x10^3uL (1.8-7.7) Lymphocytes # (Auto) 0.5 x10^3/uL (1.0-4.8) Monocytes # (Auto) 1.5 x10^3/uL (0.0-1.1) Eosinophils # (Auto) 0.0 x10^3/uL (0.0-0.7) Basophils # (Auto) 0.0 x10^3/uL (0.0-0.2) Segmented Neutrophils % 68 % (35-66) Band Neutrophils % 23 % (0-9) Lymphocytes % 5 % (24-48) Monocytes % 4 % (0-10) Platelet Estimate Adequate (ADEQUATE) Urine Collection Type Unknown Urine Color Evita Urine Clarity Cloudy Urine pH 5.0 Urine Specific [place] >=1.030 Urine Protein 100 mg/dL (NEG-TRACE) Urine Glucose (UA) >=1000 mg/dL (NEG) Urine Ketones (Stick) Trace mg/dL (NEG) Urine Blood Trace (NEG) Urine Nitrite Negative (NEG) Urine Bilirubin Small (NEG) Urine Urobilinogen Dipstick 1.0 mg/dL (0.2 mg/dL) Urine Leukocyte Esterase Negative (NEG) Urine RBC 0 /HPF (0-2) Urine WBC Occ /HPF (0-4) Urine Squamous Epithelial Cells Occ /LPF Urine Bacteria 0 /HPF (0-FEW) Urine Hyaline Casts Few /HPF Urine Granular Casts Few /HPF Sodium Level 132 mmol/L (136-145) Potassium Level 4.3 mmol/L (3.5-5.1) Chloride Level 96 mmol/L (98-107) Carbon Dioxide Level 20 mmol/L (21-32) Anion Gap 16 (6-14) Blood Urea Nitrogen 30 mg/dL (8-26) Creatinine 1.8 mg/dL (0.7-1.3) Estimated GFR (Cockcroft-Gault) 38.4 BUN/Creatinine Ratio 17 (6-20) Glucose Level 504 mg/dL (70-99) Calcium Level 8.0 mg/dL (8.5-10.1) Total Bilirubin 1.5 mg/dL (0.2-1.0) Aspartate Amino Transf (AST/SGOT) 14 U/L (15-37) Alanine Aminotransferase (ALT/SGPT) 22 U/L (16-63) Alkaline Phosphatase 90 U/L (46-116) Troponin I Quantitative < 0.017 ng/mL (0.000-0.055) Total Protein 6.7 g/dL (6.4-8.2) Albumin 3.0 g/dL (3.4-5.0) Albumin/Globulin Ratio 0.8 (1.0-1.7) Lipase 81 U/L (73-393) Lactic Acid Level 3.3 mmol/L (0.4-2.0) 1.1 mmol/L (0.4-2.0) Test 01/02/17 07:30 01/02/17 10:55 01/02/17 11:35 Glucose (Fingerstick) 304 mg/dL (70-99) 392 mg/dL (70-99) Uric Acid 6.9 mg/dL (3.5-7.2) Images Images I reviewed the x-rays of bilateral ankles. The right ankle has a retrograde calcaneotibial nail. There is no remaining talus bone. The hardware is in good position. There is no definitive bridging or healing at the attempted fusion, and there may be a nonunion. Difficult to assess whether there is infection at the nonunion. There are degenerative changes and osteophytes at the remnant tibiocalcaneal joint. The left ankle shows a nondisplaced lateral malleolus fracture, with no widening of the medial clear space. Assessment/Plan Assessment/Plan Nondisplaced fracture of lateral malleolus of left fibula, initial encounter for closed fracture S82.65XA. Splinting and offloading would be appropriate for this fracture. Due to the diabetes he may need nonweightbearing to prevent a Charcot arthropathy or displacement. Plantar ulcer right heel. Consider osteomyelitis. Possible nonunion of the ankle fusion and possible osteomyelitis in that location. Severe diabetic neuropathy bilaterally. Poor pulses. This is likely a combination of neuropathic ulcer and ischemic vascular ulcer on the right. Obtained an MRI of the ankle to evaluate for osteomyelitis and marrow edema. Other option would include a 3-phase bone scan. Arterial Dopplers to assess blood flow. Further recommendations once these studies are completed. Bedrest, antibiotics, and pain control for now. Offloading of the right heel is appropriate at this time. DELVIN STROUD MD Jan 02, 2017 11:56
[2017-01-02] MEDS: SENNOSIDES/DOCUSATE 8.6/50MG TABLET. PO SCH ×2 (12:00→23:12)
[2017-01-02] MEDS: BISACODYL 5 MG TABLET.DR. PO SCH (12:00)
--- NOTE | 2017-01-02 12:00 | RAD ---
Indication wound left foot. Grayscale color Doppler and spectral imaging was performed. The examination was targeted to the major arteries of the lower extremities. On the right there is a biphasic waveform in the common femoral artery indicative of a component of inlet disease. A similar biphasic waveform is seen extending throughout the course of the superficial femoral artery into the popliteal artery. Posterior tibial artery proximally and distally demonstrates a biphasic waveform. The peroneal artery is not visualized. The anterior tibial and dorsal pedal arteries are both biphasic. On the left there is also biphasic waveform in the common femoral artery again indicative of a component of inlet disease. Biphasic waveform is seen throughout the course of the superficial femoral artery extending into the popliteal artery. The posterior tibial artery anteriorly and distally is also biphasic. The peroneal artery is not seen. The anterior tibial artery is biphasic and the dorsal pedal artery is monophasic. 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 Additional superimposed high-grade arterial stenosis is not suggested involving the major arteries of either lower extremity
[2017-01-02] MEDS: SENNOSIDES/DOCUSATE 8.6/50MG TABLET. PO PRN (12:03)
[2017-01-02] MEDS: INSULIN DETEMIR 300 UNITS/3 ML INSULN.PEN. SQ SCH (12:08)
[2017-01-02] MEDS: INSULIN ASPART 300 UNITS/3 ML INSULN.PEN SQ SCH ×5 (12:11→23:19)
[2017-01-02] MEDS: VANCOMYCIN 2 GM in IV NORMAL SALINE 500ML BAG 500 ML IV SCH (12:14)
[2017-01-02] MEDS: IRON POLYSACCHARIDE COMPLEX 150 MG CAPSULE PO SCH ×2 (12:16→23:12)
--- NOTE | 2017-01-02 14:51 | PDOC ---
Infectious Disease Note ROS ROS Vital Sign Vital Signs Vital Signs Date Time Temp Pulse Resp B/P (MAP) Pulse Ox O2 Delivery O2 Flow Rate FiO2 01/02/17 11:00 98.0 104 22 105/59 (74) 90 Room Air 98.0 01/02/17 10:08 2.0 Labs Lab Laboratory Tests Test 01/01/17 22:23 01/01/17 22:25 01/02/17 00:05 01/02/17 06:51 Glucose (Fingerstick) 453 mg/dL (70-99) White Blood Count 16.7 x10^3/uL (4.0-11.0) Red Blood Count 3.13 x10^6/uL (4.30-5.70) Hemoglobin 9.6 g/dL (13.0-17.5) Hematocrit 29.0 % (39.0-53.0) Mean Corpuscular Volume 93 fL (79-100) Mean Corpuscular Hemoglobin 31 pg (25-35) Mean Corpuscular Hemoglobin Concent 33 g/dL (31-37) Red Cell Distribution Width 15.3 % (11.5-14.5) Platelet Count 142 x10^3/uL (140-400) Neutrophils (%) (Auto) 88 % (31-73) Lymphocytes (%) (Auto) 3 % (24-48) Monocytes (%) (Auto) 9 % (0-9) Eosinophils (%) (Auto) 0 % (0-3) Basophils (%) (Auto) 0 % (0-3) Neutrophils # (Auto) 14.6 x10^3uL (1.8-7.7) Lymphocytes # (Auto) 0.5 x10^3/uL (1.0-4.8) Monocytes # (Auto) 1.5 x10^3/uL (0.0-1.1) Eosinophils # (Auto) 0.0 x10^3/uL (0.0-0.7) Basophils # (Auto) 0.0 x10^3/uL (0.0-0.2) Segmented Neutrophils % 68 % (35-66) Band Neutrophils % 23 % (0-9) Lymphocytes % 5 % (24-48) Monocytes % 4 % (0-10) Platelet Estimate Adequate (ADEQUATE) Urine Collection Type Unknown Urine Color Evita Urine Clarity Cloudy Urine pH 5.0 Urine Specific [place] >=1.030 Urine Protein 100 mg/dL (NEG-TRACE) Urine Glucose (UA) >=1000 mg/dL (NEG) Urine Ketones (Stick) Trace mg/dL (NEG) Urine Blood Trace (NEG) Urine Nitrite Negative (NEG) Urine Bilirubin Small (NEG) Urine Urobilinogen Dipstick 1.0 mg/dL (0.2 mg/dL) Urine Leukocyte Esterase Negative (NEG) Urine RBC 0 /HPF (0-2) Urine WBC Occ /HPF (0-4) Urine Squamous Epithelial Cells Occ /LPF Urine Bacteria 0 /HPF (0-FEW) Urine Hyaline Casts Few /HPF Urine Granular Casts Few /HPF Sodium Level 132 mmol/L (136-145) Potassium Level 4.3 mmol/L (3.5-5.1) Chloride Level 96 mmol/L (98-107) Carbon Dioxide Level 20 mmol/L (21-32) Anion Gap 16 (6-14) Blood Urea Nitrogen 30 mg/dL (8-26) Creatinine 1.8 mg/dL (0.7-1.3) Estimated GFR (Cockcroft-Gault) 38.4 BUN/Creatinine Ratio 17 (6-20) Glucose Level 504 mg/dL (70-99) Calcium Level 8.0 mg/dL (8.5-10.1) Total Bilirubin 1.5 mg/dL (0.2-1.0) Aspartate Amino Transf (AST/SGOT) 14 U/L (15-37) Alanine Aminotransferase (ALT/SGPT) 22 U/L (16-63) Alkaline Phosphatase 90 U/L (46-116) Troponin I Quantitative < 0.017 ng/mL (0.000-0.055) Total Protein 6.7 g/dL (6.4-8.2) Albumin 3.0 g/dL (3.4-5.0) Albumin/Globulin Ratio 0.8 (1.0-1.7) Lipase 81 U/L (73-393) Lactic Acid Level 3.3 mmol/L (0.4-2.0) 1.1 mmol/L (0.4-2.0) Test 01/02/17 07:30 01/02/17 10:55 01/02/17 11:35 Glucose (Fingerstick) 304 mg/dL (70-99) 392 mg/dL (70-99) Erythrocyte Sedimentation Rate > 150 (0-15) Uric Acid 6.9 mg/dL (3.5-7.2) Objective Assessment Gangrenous ulcer of right heel, osteomyelitis not ruled out Leukocytosis Lactic acidosis Left ankle nondisplaced fracture PVD Severe peripheral neuropathy Uncontrolled Type II diabetes mellitus CKD Morbid obesity, BMI 46 Plan Plan of Care Vanc, add Zosyn Likely will need debridement, await MRI Await vascular evaluation am labs Thank you [id number] Patient seen and Examined. Chart reviewed in detail. Case discussed with HYPERBARIC TECHNICIAN. Agree with above plan. ULISSES CABEZAS APRN Jan 02, 2017 14:51 MISTI YAÑEZ MD Jan 02, 2017 16:49
[2017-01-02] MEDS: PIPERACILLIN/TAZOBACTAM 3.375 GM in IV NORMAL SALINE 50ML 50 ML IV SCH ×2 (16:00→23:13)
--- NOTE | 2017-01-02 16:46 | RAD ---
EXAM: MRI LUMBAR SPINE WITHOUT CONTRAST. HISTORY: Low back pain. TECHNIQUE: Magnetic resonance images of the lumbar spine were obtained without contrast. COMPARISON: None. FINDINGS: Alignment is normal. No fractures are identified. There is mild degenerative disc disease at L1-2 and T11-12. The conus is at L1 and appears normal. At T11-12, there is a small partially ossified central disc bulge. It exerts mild mass effect on the distal thoracic cord without clear central canal stenosis. At L1-2, there is a small posterior disc bulge. It effaces the anterior thecal sac mildly without clear stenosis. At L2-3, there is mild to moderate right facet and ligamentum flavum hypertrophy. There is no stenosis. At L3-4, there is an annular tear in the left foraminal territory. Facet and ligamentum flavum hypertrophy is mild. There is no stenosis. At L4-5, there is a small posterior disc bulge. Right facet osteoarthritis is moderate. Facet osteophytosis exerts some mass effect on multiple nerve roots in the right lateral recess with overall moderate right lateral recess narrowing. Right neural foraminal stenosis is mild. At L5-S1, there is a minimal posterior disc bulge. There is no stenosis. IMPRESSION: 1. Small posterior disc bulges and facet and ligamentum flavum hypertrophy result in only mild stenosis, worst at the right lateral recess and right neural foramen at L4-5 as detailed above. 2. Mild degenerative disc disease at T11-12 and L1-2. Electronically signed by: Huy Peraza MD (01/02/2017 4:43 PM) [facility] [place]
--- NOTE | 2017-01-02 17:03 | RAD ---
MR of the right ankle with without contrast HISTORY: Ankle fusion 2 months ago. Open wound, gotten larger over the last week. Calcaneal osteomyelitis. FINDINGS: There is severe destruction of the distal tibia, talus and calcaneus. The talus is essentially absent. There is evidence of an intramedullary nail transfixing the tibia and calcaneus and a cross locking calcaneal nail. There is not solid osseous fusion across the tibia and calcaneus, but rather there is a soft tissue gap the 2 structures. Severe degenerative changes at the talonavicular joint. No overtly aggressive acute bone destruction to suggest acute osteomyelitis is apparent. There is no evidence of a drainable fluid collection or abscess. No gross joint effusion is seen. No significant tendon sheath fluid is identified. Mild generalized subcutaneous edema. IMPRESSION: 1. Severe destruction of the distal tibia, talus and calcaneus appears chronic. Talus essentially absent, with evidence of surgical tibiocalcaneal fusion. Soft tissue gap between the tibia and calcaneus without solid osseous bridging. 2. Severe destructive changes at the hindfoot as well as the talonavicular joint could be due to severe chronic neuropathic arthropathy or old osteomyelitis. No definite evidence of acute osteomyelitis, although early or mild osteoarthritis could potentially be undetected due to the background changes of arthropathy and artifact from fusion hardware. 3. No drainable abscess. Electronically signed by: Dipesh Anderson MD (01/02/2017 5:00 PM) [facility]
[2017-01-02] MEDS: ATORVASTATIN CALCIUM 20 MG TABLET PO SCH (23:12)
[2017-01-02] MEDS: TAMSULOSIN 0.4 MG CAP.ER.24H. PO SCH (23:13)
[2017-01-03] VITALS (13 sets, daily range): BP systolic 75–121; BP diastolic 46–77
[2017-01-03] MEDS: VANCOMYCIN 2 GM in IV NORMAL SALINE 500ML BAG 500 ML IV SCH ×2
--- NOTE | 2017-01-03 00:46 | CONS ---
DATE OF CONSULTATION: 01/02/2017 ATTENDING PHYSICIAN: Dr. Bobo. The patient was seen at the request of Dr. Oneal for rehab evaluation. He is in room 406. 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 The patient with known diabetes mellitus with chronic right heel wound for about a year. He is taking care of himself, Dr. Mi Costello is his family physician, but he does not see her regularly. He also complains of pain in his lower back without any specific injury and without any radiation for about 2 months and also left heel area pain for about 2 months. The patient was admitted through the Emergency Room on 01/02/2017, in the morning with pain and inability to walk. The patient also admits pain in his right knee, right hip. The patient is having difficulty to walk for the last several weeks. He was noted with hyperglycemia. The patient had 33 stairs for him to manage at home. The patient is being treated with a tentative diagnosis of hyperglycemia, sepsis. The patient denies any specific injury to his left ankle area. He denies any history of gouty arthritis. The patient had ORIF right ankle done in 2012 or 2011 at [facility]. The patient denies any trouble with bladder control. He admits to constipation for about 3 days. PHYSICAL EXAMINATION: Today revealed a middle-aged male. He is alert, oriented to time, place, person, and circumstance and follows commands appropriately, moves all 4 extremities voluntarily where he had 4+/5 grade muscle strength with relatively increased weakness in hand and foot intrinsic muscles where he had some degree of muscle atrophy noted in his hand intrinsic muscles. He had deep seated ulcer over posterior and lateral aspect of his right heel. The patient had crepitus on range of motion of both knees and ankles. He had significant edema of his feet, especially left one and also left ankle and left leg. Tenderness to palpation of left calf, left ankle, left tendo Achilles, and left heel. He had equal perception of touch and pinprick sensation bilaterally. Deep tendon reflexes are absent at both ankles and decreased at both knees. He had tenderness to palpation over left lumbar paraspinal muscles extending over to sacroiliac joint area and straight leg raising test is negative bilaterally. He had pain free range of motion on both hip joints. He is independent with bed mobility. I have not tested his transfers or ambulation skills at this time. He is using oxygen by nasal cannula and he is receiving IV fluids. ASSESSMENT: Mobility and self-care limitation in a patient with chronic right heel ulcer in a patient with known diabetes mellitus with peripheral neuropathy, to rule out associated peripheral vascular disease and also left ankle area swelling and pain, most probably from degenerative joint disease with associated tendinitis, left heel cord to rule out associated gouty arthritis and deep vein thrombosis, left lower extremity. The patient with known obesity, clinical evidence of peripheral neuropathy, degenerative joint disease of both knees without any significant pain left knee, but pain in right knee and subacute lumbar sprain. No clinical evidence of ongoing lumbar radiculopathy to rule out associated degenerative disk disease of lumbar vertebrae. The patient is also with anemia. RECOMMENDATION: To obtain radiological studies and lab studies to rule out deep venous thrombosis, gouty arthritis, or any new disk problem in the lumbar area, to ask for physical therapy and occupational therapy to see him to get him Rooke boot to get rid of redness and swelling of his left ankle and foot and to use splints to keep pressure of right heel. Dr. Oneal, I appreciate asking me to participate in the care of this interesting patient. I will be glad to follow him with you as needed for his rehabilitation. MARTA SHIPMAN MD DR: MARICRUZ/annika JOB#: [id number] / [id number]
--- NOTE | 2017-01-03 01:44 | CONS ---
DATE OF CONSULTATION: 01/02/2017 REFERRING PHYSICIAN: Monik Bobo MD. REASON FOR CONSULTATION: Diabetic foot infection. HISTORY OF PRESENT ILLNESS: This patient is a 61-year-old male with a history of insulin-dependent type 2 diabetes mellitus, chronic kidney disease and severe peripheral neuropathy who presented with 2-month history of left ankle pain associated with difficulty walking and swelling. He does not recall trauma. An x-ray of the left ankle revealed a nondisplaced fracture of the distal fibula. He was seen by ortho and is to have a splint put in place. In addition, the patient developed an ulcer on the right heel. He recalls noticing a blister about 2 weeks ago that progressively worsened. Denies odor, redness or drainage. He checks his feet regularly. Denies injury or ill-fitting shoes. An x-ray of the right foot revealed chronic changes without evidence of osteomyelitis. A followup MRI is pending. He has an elevated white blood cell count of 16,700, segs 68% and bands 28%. ESR is greater than 150. Lactic acid 3.3. He is on vancomycin and received a one-time dose of Unasyn in the ER. ID has been asked to consult for further evaluation and antibiotic management. PAST MEDICAL HISTORY: Morbid obesity with a BMI of 46, chronic kidney disease stage 3, diabetes mellitus type 2, hypertension, hyperlipidemia, cerebrovascular accident, sleep apnea, gastroesophageal reflux disease, depression, osteoarthritis, bleeding ulcers in esophagus, hemorrhoids. PAST SURGICAL HISTORY: Cataract extraction bilaterally, cholecystectomy, ventral hernia repair, left testicle removed in 1980, right knee arthroscopy x 2, right ankle fusion. 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 FAMILY HISTORY: Positive for diabetes mellitus, cirrhosis, cancer. ALLERGIES: MORPHINE. REVIEW OF SYSTEMS: The patient denies fevers, chills. He has been having sweats. His appetite has been alright. Denies headache, nasal/sinus congestion or sore throat. Denies shortness of air, cough or wheezing. Denies chest pain or palpitations. He has been a little constipated. Denies cramps, bloating, nausea or vomiting. Denies dysuria. Denies rash. PHYSICAL EXAMINATION: GENERAL: Overweight male, limping with his right leg in his room. VITAL SIGNS: Afebrile. Blood pressure 105/59, heart rate 104, respiratory rate 22, pulse oximetry is 90% on room air, weight is 336 pounds. HEENT: Pupils equally round. Normal conjunctivae. Oral mucosa is pink and moist. NECK: Supple. CHEST: Lungs clear to auscultation. HEART: Normal S1, S2. ABDOMEN: Obese, bowel sounds are present, soft, nontender. EXTREMITIES: Left lower extremity 1+ edema. He has a dry gangrenous ulcer of right heel. Distal pulses difficult to palpate bilaterally. No cyanosis. SKIN: Without rash. NEUROLOGIC: Alert and 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. Diminished sensation in lower extremities. LABORATORY DATA: WBC 16.7, hemoglobin 9.6, platelet count 142,000, segs. 68% bands 28%. ESR greater than 150. Sodium 132, potassium 4.3, creatinine 1.8, BUN 30, glucose 504. Repeat lactic acid 1.1. Uric acid 6.9. Total bilirubin 1.5, AST 14, ALT 22. Troponin less than 0.017, albumin 3.0, lipase 81. Urinalysis unremarkable for infection. Blood cultures pending. Venous Doppler left lower extremity negative for DVT. Arterial ultrasound shows evidence of ____ disease bilaterally. Foot and ankle x-ray per HPI. Chest x-ray shows no acute findings. IMPRESSION: 1. Gangrenous ulcer of right heel, osteomyelitis not ruled out. 2. Leukocytosis. 3. Lactic acidosis. 4. Left ankle nondisplaced fracture. 5. Peripheral vascular disease. 6. Severe peripheral neuropathy. 7. Uncontrolled type 2 diabetes mellitus. 8. Chronic kidney disease. 9. Morbid obesity with a BMI of 46. PLAN: Continue the vancomycin and add Zosyn for broader coverage. The patient will likely need debridement. Await MRI to rule out bone involvement. Await vascular evaluation. Repeat labs in the morning. We will continue to follow along. Thank you, Dr. Bobo, for asking us to participate in this patient's care. Should you have further questions or concerns, please call. MISTI YAÑEZ MD DR: ANNE-MARIE/annika JOB#: [id number] / [id number]
[2017-01-03 05:39] LABS: BASO % 0 % (0-3); EOS % 0 % (0-3); HEMATOCRIT 24.4 % (39.0-53.0); HEMOGLOBIN 8.3 g/dL (13.0-17.5); LYMPH # 0.6 x10^3/uL (1.0-4.8); LYMPH % 5 % (24-48); MEAN CORPUSCULAR HEMOGLOBIN 31 pg (25-35); MEAN CORPUSCULAR HGB CONC 34 g/dL (31-37); MEAN CORPUSCULAR VOLUME 93 fL (79-100); MONO % 9 % (0-9); NEUT % 86 % (31-73); PLATELET COUNT 117 x10^3/uL (140-400); RED BLOOD COUNT 2.64 x10^6/uL (4.30-5.70); RED CELL DISTRIBUTION WIDTH 15.7 % (11.5-14.5); WHITE BLOOD COUNT 13.1 x10^3/uL (4.0-11.0)
[2017-01-03] MEDS: PIPERACILLIN/TAZOBACTAM 3.375 GM in IV NORMAL SALINE 50ML 50 ML IV SCH ×2 (06:02→10:40)
[2017-01-03 06:09] LABS: ALBUMIN 2.3 g/dL (3.4-5.0); ALBUMIN/GLOBULIN RATIO 0.5 (1.0-1.7); CALCIUM 7.8 mg/dL (8.5-10.1); CREATININE 3.7 mg/dL (0.7-1.3); GFR 16.7; POTASSIUM 4.4 mmol/L (3.5-5.1); TOTAL BILIRUBIN 0.9 mg/dL (0.2-1.0); TOTAL PROTEIN 6.6 g/dL (6.4-8.2)
[2017-01-03] MEDS: INSULIN ASPART 300 UNITS/3 ML INSULN.PEN SQ SCH ×7 (07:30→21:41)
[2017-01-03] MEDS: SENNOSIDES/DOCUSATE 8.6/50MG TABLET. PO SCH ×2 (09:00→21:40)
--- NOTE | 2017-01-03 09:49 | PDOC ---
PROGRESS NOTES Chief Complaint Chief Complaint Chief complaint: Right lower extremity ulcer Assessment and plan Altered mental status,: Unclear etiology, suspected due to hyperglycemia and acidosis, continue IV hydration, ordered ABGs, and chest x-ray bolus normal saline 500 MLS 1 Right lower extremity heel ulcer, osteomyelitis ruled out: Imaging studies reviewed discussed with Dr. Biswas, orthopedics is planning for a debridement and the VAC placement. Elevated WBC: Continue current antibiotics Zosyn and vancomycin, renal dosing of vancomycin, ESR and the CRP elevated. Metabolic acidosis: Likely related to infection: Ordered blood cultures, and all of temperature spike this morning Acute kidney injury: Continue current IV hydration Type 2 diabetes mellitus with hyperglycemia: Sliding scale insulin with IV hydration Chronic kidney disease unknown baseline : Morbid obesity with sleep apnea: Try BiPAP based on ABGs Peripheral artery disease: Arterial ultrasound reviewed and venous Doppler revealed no DVTs discussed with Dr. Biswas, no plans for angiography based on renal functions at this time. History of Present Illness History of Present Illness Patient is diaphoretic and confused this morning he is alert, but very slow to response fevers Vitals Vitals Vital Signs Date Time Temp Pulse Resp B/P (MAP) Pulse Ox O2 Delivery O2 Flow Rate FiO2 01/03/17 07:00 98.9 106 22 121/77 (92) 88 Room Air 98.9 01/03/17 03:00 2.0 Physical Exam General: Alert, Cooperative, mild distress, Other Heart: Regular rate, Normal S1 (confused slow to response), Normal S2 Lungs: Clear Abdomen: Normal bowel sounds, Soft, Other Extremities: Other (thready dorsalis pedis pulse bilaterally, barely palpable) Skin: Other (right heel ulcer, full-thickness with necrosis. Probable dry gangrene, possible deep osteomyelitis) Labs LABS Laboratory Tests Test 01/02/17 10:55 01/02/17 11:35 01/02/17 17:19 01/02/17 20:20 Erythrocyte Sedimentation Rate > 150 (0-15) Uric Acid 6.9 mg/dL (3.5-7.2) Glucose (Fingerstick) 392 mg/dL (70-99) 263 mg/dL (70-99) 263 mg/dL (70-99) Test 01/03/17 04:40 01/03/17 08:15 01/03/17 09:44 White Blood Count 13.1 x10^3/uL (4.0-11.0) Red Blood Count 2.64 x10^6/uL (4.30-5.70) Hemoglobin 8.3 g/dL (13.0-17.5) Hematocrit 24.4 % (39.0-53.0) Mean Corpuscular Volume 93 fL (79-100) Mean Corpuscular Hemoglobin 31 pg (25-35) Mean Corpuscular Hemoglobin Concent 34 g/dL (31-37) Red Cell Distribution Width 15.7 % (11.5-14.5) Platelet Count 117 x10^3/uL (140-400) Neutrophils (%) (Auto) 86 % (31-73) Lymphocytes (%) (Auto) 5 % (24-48) Monocytes (%) (Auto) 9 % (0-9) Eosinophils (%) (Auto) 0 % (0-3) Basophils (%) (Auto) 0 % (0-3) Neutrophils # (Auto) 11.2 x10^3uL (1.8-7.7) Lymphocytes # (Auto) 0.6 x10^3/uL (1.0-4.8) Monocytes # (Auto) 1.2 x10^3/uL (0.0-1.1) Eosinophils # (Auto) 0.0 x10^3/uL (0.0-0.7) Basophils # (Auto) 0.0 x10^3/uL (0.0-0.2) Sodium Level 135 mmol/L (136-145) Potassium Level 4.4 mmol/L (3.5-5.1) Chloride Level 101 mmol/L (98-107) Carbon Dioxide Level 19 mmol/L (21-32) Anion Gap 15 (6-14) Blood Urea Nitrogen 49 mg/dL (8-26) Creatinine 3.7 mg/dL (0.7-1.3) Estimated GFR (Cockcroft-Gault) 16.7 BUN/Creatinine Ratio 13 (6-20) Glucose Level 231 mg/dL (70-99) Calcium Level 7.8 mg/dL (8.5-10.1) Total Bilirubin 0.9 mg/dL (0.2-1.0) Aspartate Amino Transf (AST/SGOT) 26 U/L (15-37) Alanine Aminotransferase (ALT/SGPT) 26 U/L (16-63) Alkaline Phosphatase 91 U/L (46-116) C-Reactive Protein, Quantitative 408.0 mg/L (0-3.3) Total Protein 6.6 g/dL (6.4-8.2) Albumin 2.3 g/dL (3.4-5.0) Albumin/Globulin Ratio 0.5 (1.0-1.7) Glucose (Fingerstick) 266 mg/dL (70-99) 295 mg/dL (70-99) Assessment and Plan Assessmemt and Plan Problems Medical Problems: (1) Diabetic foot ulcer Status: Acute (2) Hyperglycemia Status: Acute (3) Sepsis Status: Acute Problems: Comment Review of Relevant I have reviewed the following items lauryn (where applicable) has been applied. Labs Laboratory Tests Test 01/01/17 22:23 01/01/17 22:25 01/02/17 00:05 01/02/17 06:51 Glucose (Fingerstick) 453 mg/dL (70-99) White Blood Count 16.7 x10^3/uL (4.0-11.0) Red Blood Count 3.13 x10^6/uL (4.30-5.70) Hemoglobin 9.6 g/dL (13.0-17.5) Hematocrit 29.0 % (39.0-53.0) Mean Corpuscular Volume 93 fL (79-100) Mean Corpuscular Hemoglobin 31 pg (25-35) Mean Corpuscular Hemoglobin Concent 33 g/dL (31-37) Red Cell Distribution Width 15.3 % (11.5-14.5) Platelet Count 142 x10^3/uL (140-400) Neutrophils (%) (Auto) 88 % (31-73) Lymphocytes (%) (Auto) 3 % (24-48) Monocytes (%) (Auto) 9 % (0-9) Eosinophils (%) (Auto) 0 % (0-3) Basophils (%) (Auto) 0 % (0-3) Neutrophils # (Auto) 14.6 x10^3uL (1.8-7.7) Lymphocytes # (Auto) 0.5 x10^3/uL (1.0-4.8) Monocytes # (Auto) 1.5 x10^3/uL (0.0-1.1) Eosinophils # (Auto) 0.0 x10^3/uL (0.0-0.7) Basophils # (Auto) 0.0 x10^3/uL (0.0-0.2) Segmented Neutrophils % 68 % (35-66) Band Neutrophils % 23 % (0-9) Lymphocytes % 5 % (24-48) Monocytes % 4 % (0-10) Platelet Estimate Adequate (ADEQUATE) Urine Collection Type Unknown Urine Color Evita Urine Clarity Cloudy Urine pH 5.0 Urine Specific [place] >=1.030 Urine Protein 100 mg/dL (NEG-TRACE) Urine Glucose (UA) >=1000 mg/dL (NEG) Urine Ketones (Stick) Trace mg/dL (NEG) Urine Blood Trace (NEG) Urine Nitrite Negative (NEG) Urine Bilirubin Small (NEG) Urine Urobilinogen Dipstick 1.0 mg/dL (0.2 mg/dL) Urine Leukocyte Esterase Negative (NEG) Urine RBC 0 /HPF (0-2) Urine WBC Occ /HPF (0-4) Urine Squamous Epithelial Cells Occ /LPF Urine Bacteria 0 /HPF (0-FEW) Urine Hyaline Casts Few /HPF Urine Granular Casts Few /HPF Sodium Level 132 mmol/L (136-145) Potassium Level 4.3 mmol/L (3.5-5.1) Chloride Level 96 mmol/L (98-107) Carbon Dioxide Level 20 mmol/L (21-32) Anion Gap 16 (6-14) Blood Urea Nitrogen 30 mg/dL (8-26) Creatinine 1.8 mg/dL (0.7-1.3) Estimated GFR (Cockcroft-Gault) 38.4 BUN/Creatinine Ratio 17 (6-20) Glucose Level 504 mg/dL (70-99) Calcium Level 8.0 mg/dL (8.5-10.1) Total Bilirubin 1.5 mg/dL (0.2-1.0) Aspartate Amino Transf (AST/SGOT) 14 U/L (15-37) Alanine Aminotransferase (ALT/SGPT) 22 U/L (16-63) Alkaline Phosphatase 90 U/L (46-116) Troponin I Quantitative < 0.017 ng/mL (0.000-0.055) Total Protein 6.7 g/dL (6.4-8.2) Albumin 3.0 g/dL (3.4-5.0) Albumin/Globulin Ratio 0.8 (1.0-1.7) Lipase 81 U/L (73-393) Lactic Acid Level 3.3 mmol/L (0.4-2.0) 1.1 mmol/L (0.4-2.0) Test 01/02/17 06:57 01/02/17 07:30 01/02/17 10:55 01/02/17 11:35 Hemoglobin A1c 10.4 % (4.8-5.6) Glucose (Fingerstick) 304 mg/dL (70-99) 392 mg/dL (70-99) Erythrocyte Sedimentation Rate > 150 (0-15) Uric Acid 6.9 mg/dL (3.5-7.2) Test 01/02/17 17:19 01/02/17 20:20 01/03/17 04:40 01/03/17 08:15 Glucose (Fingerstick) 263 mg/dL (70-99) 263 mg/dL (70-99) 266 mg/dL (70-99) White Blood Count 13.1 x10^3/uL (4.0-11.0) Red Blood Count 2.64 x10^6/uL (4.30-5.70) Hemoglobin 8.3 g/dL (13.0-17.5) Hematocrit 24.4 % (39.0-53.0) Mean Corpuscular Volume 93 fL (79-100) Mean Corpuscular Hemoglobin 31 pg (25-35) Mean Corpuscular Hemoglobin Concent 34 g/dL (31-37) Red Cell Distribution Width 15.7 % (11.5-14.5) Platelet Count 117 x10^3/uL (140-400) Neutrophils (%) (Auto) 86 % (31-73) Lymphocytes (%) (Auto) 5 % (24-48) Monocytes (%) (Auto) 9 % (0-9) Eosinophils (%) (Auto) 0 % (0-3) Basophils (%) (Auto) 0 % (0-3) Neutrophils # (Auto) 11.2 x10^3uL (1.8-7.7) Lymphocytes # (Auto) 0.6 x10^3/uL (1.0-4.8) Monocytes # (Auto) 1.2 x10^3/uL (0.0-1.1) Eosinophils # (Auto) 0.0 x10^3/uL (0.0-0.7) Basophils # (Auto) 0.0 x10^3/uL (0.0-0.2) Sodium Level 135 mmol/L (136-145) Potassium Level 4.4 mmol/L (3.5-5.1) Chloride Level 101 mmol/L (98-107) Carbon Dioxide Level 19 mmol/L (21-32) Anion Gap 15 (6-14) Blood Urea Nitrogen 49 mg/dL (8-26) Creatinine 3.7 mg/dL (0.7-1.3) Estimated GFR (Cockcroft-Gault) 16.7 BUN/Creatinine Ratio 13 (6-20) Glucose Level 231 mg/dL (70-99) Calcium Level 7.8 mg/dL (8.5-10.1) Total Bilirubin 0.9 mg/dL (0.2-1.0) Aspartate Amino Transf (AST/SGOT) 26 U/L (15-37) Alanine Aminotransferase (ALT/SGPT) 26 U/L (16-63) Alkaline Phosphatase 91 U/L (46-116) C-Reactive Protein, Quantitative 408.0 mg/L (0-3.3) Total Protein 6.6 g/dL (6.4-8.2) Albumin 2.3 g/dL (3.4-5.0) Albumin/Globulin Ratio 0.5 (1.0-1.7) Test 01/03/17 09:44 Glucose (Fingerstick) 295 mg/dL (70-99) Laboratory Tests Test 01/02/17 10:55 01/02/17 11:35 01/02/17 17:19 01/02/17 20:20 Erythrocyte Sedimentation Rate > 150 (0-15) Uric Acid 6.9 mg/dL (3.5-7.2) Glucose (Fingerstick) 392 mg/dL (70-99) 263 mg/dL (70-99) 263 mg/dL (70-99) Test 01/03/17 04:40 01/03/17 08:15 01/03/17 09:44 White Blood Count 13.1 x10^3/uL (4.0-11.0) Red Blood Count 2.64 x10^6/uL (4.30-5.70) Hemoglobin 8.3 g/dL (13.0-17.5) Hematocrit 24.4 % (39.0-53.0) Mean Corpuscular Volume 93 fL (79-100) Mean Corpuscular Hemoglobin 31 pg (25-35) Mean Corpuscular Hemoglobin Concent 34 g/dL (31-37) Red Cell Distribution Width 15.7 % (11.5-14.5) Platelet Count 117 x10^3/uL (140-400) Neutrophils (%) (Auto) 86 % (31-73) Lymphocytes (%) (Auto) 5 % (24-48) Monocytes (%) (Auto) 9 % (0-9) Eosinophils (%) (Auto) 0 % (0-3) Basophils (%) (Auto) 0 % (0-3) Neutrophils # (Auto) 11.2 x10^3uL (1.8-7.7) Lymphocytes # (Auto) 0.6 x10^3/uL (1.0-4.8) Monocytes # (Auto) 1.2 x10^3/uL (0.0-1.1) Eosinophils # (Auto) 0.0 x10^3/uL (0.0-0.7) Basophils # (Auto) 0.0 x10^3/uL (0.0-0.2) Sodium Level 135 mmol/L (136-145) Potassium Level 4.4 mmol/L (3.5-5.1) Chloride Level 101 mmol/L (98-107) Carbon Dioxide Level 19 mmol/L (21-32) Anion Gap 15 (6-14) Blood Urea Nitrogen 49 mg/dL (8-26) Creatinine 3.7 mg/dL (0.7-1.3) Estimated GFR (Cockcroft-Gault) 16.7 BUN/Creatinine Ratio 13 (6-20) Glucose Level 231 mg/dL (70-99) Calcium Level 7.8 mg/dL (8.5-10.1) Total Bilirubin 0.9 mg/dL (0.2-1.0) Aspartate Amino Transf (AST/SGOT) 26 U/L (15-37) Alanine Aminotransferase (ALT/SGPT) 26 U/L (16-63) Alkaline Phosphatase 91 U/L (46-116) C-Reactive Protein, Quantitative 408.0 mg/L (0-3.3) Total Protein 6.6 g/dL (6.4-8.2) Albumin 2.3 g/dL (3.4-5.0) Albumin/Globulin Ratio 0.5 (1.0-1.7) Glucose (Fingerstick) 266 mg/dL (70-99) 295 mg/dL (70-99) Microbiology 01/02/17 Blood Culture - Preliminary, Resulted NO GROWTH AFTER 1 DAY Medications Current Medications Sodium Chloride 1,000 ml @ 1,000 mls/hr 1X ONCE IV Last administered on 23:15; Start 01/01/17 at 23:00; Stop 01/01/17 at 23:59; Status DC Ampicillin Sodium/ Sulbactam Sodium 3 gm/Sodium Chloride 100 ml @ 200 mls/hr 1X ONCE IV Last administered on 01/01/17 23:43; Start 01/02/17 at 00:00; Stop 01/02/17 at 00:29; Status DC Vancomycin HCl (Vanco Per Pharmacy) 1 each PRN DAILY PRN MC SEE COMMENTS Last administered on 01/02/17 13:53; Start 01/01/17 at 23:30 Vancomycin HCl 2 gm/Sodium Chloride 500 ml @ 250 mls/hr 1X ONCE IV Last administered on 01/02/17 00:32; Start 01/02/17 at 00:00; Stop 01/02/17 at 01:59 ; Status DC Sodium Chloride 1,000 ml @ 2,000 mls/hr Q30M IV Last administered on 04:10; Start 01/02/17 at 00:00; Stop 01/02/17 at 02:15; Status DC Hydrocortisone Acetate (Anucort-Hc) 25 mg 1X ONCE TX Last administered on 01/01 23:43; Start 01/02/17 at 00:00; Stop 01/02/17 at 00:01; Status DC Hydromorphone HCl (Dilaudid) 1 mg 1X ONCE IV Last administered on 01/02/17 00 :35; Start 01/02/17 at 01:00; Stop 01/02/17 at 01:01; Status DC Ondansetron HCl (Zofran) 4 mg 1X ONCE IV Last administered on 01/02/17 00:35 ; Start 01/02/17 at 01:00; Stop 01/02/17 at 01:01; Status DC Hydromorphone HCl (Dilaudid) 2 mg STK-MED ONCE .ROUTE ; Start 01/02/17 at 00:33 ; Stop 01/02/17 at 00:34; Status DC Ondansetron HCl (Zofran) 4 mg PRN Q8HRS PRN IV NAUSEA/VOMITING; Start 01/02/17 at 01:15; Stop 01/03/17 at 01:14; Status DC Fentanyl Citrate (Fentanyl 2ml Vial) 50 mcg PRN Q2HR PRN IV SEVERE PAIN Last administered on 01/02/17 20:45; Start 01/02/17 at 01:15; Stop 01/03/17 at 01:14 ; Status DC Acetaminophen (Tylenol) 650 mg PRN Q4HRS PRN PO FEVER; Start 01/02/17 at 01:15 ; Stop 01/03/17 at 01:14; Status DC Vancomycin HCl 2 gm/Sodium Chloride 500 ml @ 250 mls/hr Q12H IV Last administered on 01/03/17 00:00; Start 01/02/17 at 12:00 Vancomycin HCl 1 each 1X ONCE MC ; Start 01/03/17 at 11:30; Stop 01/03/17 at 11 :31 Atorvastatin Calcium (Lipitor) 20 mg QHS PO Last administered on 01/02/17 23: 12; Start 01/02/17 at 21:00 Celecoxib (CeleBREX) 200 mg BID PO Last administered on 01/02/17 09:51; Start 01/02/17 at 09:00; Stop 01/02/17 at 10:30; Status DC Vitamin D (Vitamin D3) 1,000 unit DAILY PO Last administered on 01/02/17 09:50 ; Start 01/02/17 at 09:00 Clopidogrel Bisulfate (Plavix) 75 mg DAILY PO Last administered on 01/02/17 09 :51; Start 01/02/17 at 09:00 Losartan Potassium (Cozaar) 50 mg DAILY PO Last administered on 01/02/17 09:51 ; Start 01/02/17 at 09:00 Metformin HCl (Glucophage) 500 mg BID PO Last administered on 01/02/17 23:12; Start 01/02/17 at 09:00 Tamsulosin HCl (Flomax) 0.4 mg HS PO Last administered on 01/02/17 23:13; Start 01/02/17 at 21:00 Citalopram Hydrobromide (CeleXA) 40 mg DAILY PO Last administered on 01/02/17 09:50; Start 01/02/17 at 09:00 Pantoprazole Sodium (Protonix) 40 mg DAILYAC PO Last administered on 01/02/17 09:50; Start 01/02/17 at 09:00 Gabapentin (Neurontin) 300 mg BID PO Last administered on 01/02/17 23:12; Start 01/02/17 at 09:00 Insulin Aspart (NovoLOG) 23 units TIDAC SQ Last administered on 01/02/17 18:20 ; Start 01/02/17 at 11:30 Insulin Aspart (NovoLOG) 0-9 UNITS QIDACHS SQ Last administered on 01/02/17 23 :19; Start 01/02/17 at 11:30 Dextrose (Dextrose 50%-Water Syringe) 12.5 gm PRN Q15MIN PRN IV SEE COMMENTS; Start 01/02/17 at 08:45 Sodium Chloride 1,000 ml @ 100 mls/hr 1X ONCE IV Last administered on 09:50; Start 01/02/17 at 08:45; Stop 01/02/17 at 18:44; Status DC Lidocaine (Lidoderm) 1 patch DAILY TD Last administered on 01/02/17 09:52; Start 01/02/17 at 09:00 Insulin Detemir (Levemir) 40 units DAILY08 SQ Last administered on 01/02/17 12 :08; Start 01/02/17 at 09:00 Enoxaparin Sodium (Lovenox Per Pharmacy Prophylaxis Dosing) 1 each PRN DAILY PRN MC SEE COMMENTS; Start 01/02/17 at 09:15 Enoxaparin Sodium (Lovenox 40mg Syringe) 40 mg Q12H SQ Last administered on 23:12; Start 01/02/17 at 10:00 Polysaccharide Iron Complex (Niferex 150) 150 mg BID PO Last administered on 23:12; Start 01/02/17 at 12:00 Bisacodyl (Dulcolax Tab) 10 mg DAILY PO ; Start 01/02/17 at 12:00 Senna/Docusate Sodium (Senna Plus) 2 tab PRN BID PRN PO CONSTIPATION Last administered on 01/02/17 12:03; Start 01/02/17 at 10:45 Senna/Docusate Sodium (Senna Plus) 1 tab BID PO Last administered on 01/02/17 23:12; Start 01/02/17 at 12:00 Piperacillin Sod/ Tazobactam Sod 3.375 gm/Sodium Chloride 50 ml @ 100 mls/hr Q6H IV Last administered on 01/03/17 06:02; Start 01/02/17 at 16:00 Active Scripts Active Reported Humalog (Insulin Lispro) 100 Unit/1 Ml Cartridge 23 Unit SQ TIDAC Vitamin D3 (Cholecalciferol (Vitamin D3)) 1,000 Unit Tablet 1 Tab PO DAILY Nexium Capsule (Esomeprazole Magnesium) 40 Mg Capsule.dr 1 Cap PO DAILY Losartan Potassium 50 Mg Tablet 50 Mg PO DAILY Gabapentin 300 Mg Capsule 300 Mg PO BID Celebrex (Celecoxib) 200 Mg Capsule 200 Mg PO BID 30 Days Citalopram Hbr (Citalopram Hydrobromide) 40 Mg Tablet 40 Mg PO DAILY Lipitor (Atorvastatin Calcium) 20 Mg Tablet 20 Mg PO QHS Flomax (Tamsulosin Hcl) 0.4 Mg Cap.er.24h 0.4 Mg PO HS Metformin Hcl 500 Mg Tablet 500 Mg PO BID Plavix (Clopidogrel Bisulfate) 75 Mg Tablet 75 Mg PO DAILY Vitals/I & O Vital Sign - Last 24 Hours 01/02/17 01/02/17 01/02/17 01/02/17 09:51 11:00 15:00 18:16 Temp 98.0 98.2 98.0 98.2 Pulse 99 104 93 Resp B/P (MAP) 114/71 105/59 (74) 85/53 (64) Pulse Ox 90 95 O2 Delivery Room Air Room Air Nasal Cannula O2 Flow Rate 2.0 01/02/17 01/02/17 01/02/17 01/02/17 18:46 19:00 20:00 20:00 Temp 98.3 98.3 Pulse 64 Resp 18 B/P (MAP) 92/53 (66) 107/57 (74) Pulse Ox 97 O2 Delivery Nasal Cannula Nasal Cannula Nasal Cannula O2 Flow Rate 2.0 2.0 2.0 01/02/17 01/03/17 01/03/17 23:00 03:00 07:00 Temp 98.3 100.1 98.9 98.3 100.1 98.9 Pulse 113 100 106 Resp 18 18 22 B/P (MAP) 128/68 (88) 106/69 (81) 121/77 (92) Pulse Ox 94 96 88 O2 Delivery Nasal Cannula Nasal Cannula Room Air O2 Flow Rate 2.0 2.0 Intake and Output 01/02/17 01/02/17 01/03/17 15:00 23:00 07:00 Intake Total 200 ml Balance 200 ml CHANELLE BEAL MD Jan 03, 2017 09:49
--- NOTE | 2017-01-03 10:26 | PDOC ---
Provider Note Provider Note Vascular surgery consult dictated 61 year old male with a right heel wound with eschar and small amount of wet necrotic tissue. No severe infection seen. Left ankle fracture with no skin wounds. The feet and ankles have mild swelling. Arterial duplex shows the vessels are patent with no stenosis seen and biphasic flow, likely mild arterial disease. No further arterial testing with angiogram at this time with his elevated Cr and likely on mild disease. Would proceed with right heel debridement and VAC dressing. If heeling is poor over the next few weeks than would consider an angiogram with the risk of worsening renal function. I discussed with plan with ortho and they will proceed with treatment. ISSAC LAGUNA MD Jan 03, 2017 10:26
[2017-01-03] MEDS: LOSARTAN POTASSIUM 50 MG TABLET. PO SCH (10:41)
[2017-01-03] MEDS: GABAPENTIN 300 MG CAPSULE. PO SCH ×2 (10:41→21:40)
[2017-01-03] MEDS: CITALOPRAM 20 MG TABLET. PO SCH (10:41)
[2017-01-03] MEDS: BISACODYL 5 MG TABLET.DR. PO SCH (10:41)
[2017-01-03] MEDS: CLOPIDOGREL BISULFATE 75 MG TABLET PO SCH (10:41)
[2017-01-03] MEDS: IRON POLYSACCHARIDE COMPLEX 150 MG CAPSULE PO SCH ×2 (10:42→21:40)
[2017-01-03] MEDS: PANTOPRAZOLE 40 MG TABLET.DR. PO SCH (10:42)
[2017-01-03] MEDS: metFORMIN 500 MG TABLET PO SCH ×2 (10:42→21:00)
[2017-01-03] MEDS: ENOXAPARIN 40 MG/0.4 ML SYRINGE. SQ SCH ×2 (10:42→21:42)
[2017-01-03] MEDS: SENNOSIDES/DOCUSATE 8.6/50MG TABLET. PO PRN (10:42)
[2017-01-03] MEDS: CHOLECALCIFEROL (VITAMIN D3) 1,000 UNIT TABLET PO SCH (10:43)
[2017-01-03] MEDS: LIDOCAINE (700MG/PATCH) PATCH. TD SCH (10:43)
[2017-01-03] MEDS: IV NORMAL SALINE 1000ML BAG 1,000 ML IV SCH ×2 (10:45→20:45)
[2017-01-03] MEDS: INSULIN DETEMIR 300 UNITS/3 ML INSULN.PEN. SQ SCH (11:01)
--- NOTE | 2017-01-03 11:44 | RAD ---
Indication shortness of breath. A single view of the chest was obtained. Comparison is made to an examination 2 days previously. There is generalized cardiomegaly. The heart size appears increased relative to the previous exam. Some of this may be artifactual in nature.. There is perhaps very slight pulmonary vascular congestion. Gross congestive heart failure is not seen. There is no consolidated pneumonia significant pleural fluid collection or pneumothorax. IMPRESSION: Cardiomegaly. Suspect mild pulmonary vascular congestion. No focal consolidated pneumonia.
--- NOTE | 2017-01-03 12:25 | PDOC ---
Infectious Disease Note Subjective Subjective Developed acute onset SOA, sweats and weakness earlier, feeling better now Denies CP and cough Urinating less ROS ROS GEN: Denies fevers, chills CV: Denies chest pain GI: Denies n/v/d Vital Sign Vital Signs Vital Signs Date Time Temp Pulse Resp B/P (MAP) Pulse Ox O2 Delivery O2 Flow Rate FiO2 01/03/17 10:41 106 121/77 01/03/17 08:00 Nasal Cannula 2.0 01/03/17 07:00 98.9 22 88 98.9 Physical Exam PHYSICAL EXAM GENERAL: Lying down, NAD LUNGS: Clear HEART: S1S2 ABD: Obese, soft, NT EXT: Right foot bandaged. Heel protectors on bilat. 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 TEAM LEADER: Alert, responds appropriately SKIN: No rash Labs Lab Laboratory Tests Test 01/02/17 17:19 01/02/17 20:20 01/03/17 04:40 01/03/17 08:15 Glucose (Fingerstick) 263 mg/dL (70-99) 263 mg/dL (70-99) 266 mg/dL (70-99) White Blood Count 13.1 x10^3/uL (4.0-11.0) Red Blood Count 2.64 x10^6/uL (4.30-5.70) Hemoglobin 8.3 g/dL (13.0-17.5) Hematocrit 24.4 % (39.0-53.0) Mean Corpuscular Volume 93 fL (79-100) Mean Corpuscular Hemoglobin 31 pg (25-35) Mean Corpuscular Hemoglobin Concent 34 g/dL (31-37) Red Cell Distribution Width 15.7 % (11.5-14.5) Platelet Count 117 x10^3/uL (140-400) Neutrophils (%) (Auto) 86 % (31-73) Lymphocytes (%) (Auto) 5 % (24-48) Monocytes (%) (Auto) 9 % (0-9) Eosinophils (%) (Auto) 0 % (0-3) Basophils (%) (Auto) 0 % (0-3) Neutrophils # (Auto) 11.2 x10^3uL (1.8-7.7) Lymphocytes # (Auto) 0.6 x10^3/uL (1.0-4.8) Monocytes # (Auto) 1.2 x10^3/uL (0.0-1.1) Eosinophils # (Auto) 0.0 x10^3/uL (0.0-0.7) Basophils # (Auto) 0.0 x10^3/uL (0.0-0.2) Sodium Level 135 mmol/L (136-145) Potassium Level 4.4 mmol/L (3.5-5.1) Chloride Level 101 mmol/L (98-107) Carbon Dioxide Level 19 mmol/L (21-32) Anion Gap 15 (6-14) Blood Urea Nitrogen 49 mg/dL (8-26) Creatinine 3.7 mg/dL (0.7-1.3) Estimated GFR (Cockcroft-Gault) 16.7 BUN/Creatinine Ratio 13 (6-20) Glucose Level 231 mg/dL (70-99) Calcium Level 7.8 mg/dL (8.5-10.1) Total Bilirubin 0.9 mg/dL (0.2-1.0) Aspartate Amino Transf (AST/SGOT) 26 U/L (15-37) Alanine Aminotransferase (ALT/SGPT) 26 U/L (16-63) Alkaline Phosphatase 91 U/L (46-116) C-Reactive Protein, Quantitative 408.0 mg/L (0-3.3) Total Protein 6.6 g/dL (6.4-8.2) Albumin 2.3 g/dL (3.4-5.0) Albumin/Globulin Ratio 0.5 (1.0-1.7) Test 01/03/17 09:44 01/03/17 11:50 Glucose (Fingerstick) 295 mg/dL (70-99) 346 mg/dL (70-99) Indication shortness of breath. A single view of the chest was obtained. Comparison is made to an examination 2 days previously. There is generalized cardiomegaly. The heart size appears increased relative to the previous exam. Some of this may be artifactual in nature.. There is perhaps very slight pulmonary vascular congestion. Gross congestive heart failure is not seen. There is no consolidated pneumonia significant pleural fluid collection or pneumothorax. IMPRESSION: Cardiomegaly. Suspect mild pulmonary vascular congestion. No focal consolidated pneumonia. MRI right foot IMPRESSION: 1. Severe destruction of the distal tibia, talus and calcaneus appears chronic. Talus essentially absent, with evidence of surgical tibiocalcaneal fusion. Soft tissue gap between the tibia and calcaneus without solid osseous bridging. 2. Severe destructive changes at the hindfoot as well as the talonavicular joint could be due to severe chronic neuropathic arthropathy or old osteomyelitis. No definite evidence of acute osteomyelitis, although early or mild osteoarthritis could potentially be undetected due to the background changes of arthropathy and artifact from fusion hardware. 3. No drainable abscess. Micro BLOOD CULTURE Preliminary NO GROWTH AFTER 1 DAY Objective Assessment Gangrenous ulcer of right heel. MRI shows chronic neuropathic arthropathy changes with hardware in place; no evidence of acute osteo noted Leukocytosis, better Lactic acidosis BRYCE on CKD Left ankle nondisplaced fracture PVD-mild Severe peripheral neuropathy Uncontrolled Type II diabetes mellitus Morbid obesity, BMI 46 Plan Plan of Care D/c vanc Continue Zosyn, dose adjusted for renal function Appreciate vascular input Await debridement by ortho am labs await renal eval Patient seen and examined. Chart reviewed in detail. Case discussed with DIGITAL MARKETING ASSISTANT. Agree with above ULISSES CABEZAS APRN Jan 03, 2017 12:24 MISTI YAÑEZ MD Jan 03, 2017 17:10
[2017-01-03 13:01] LABS: HCO3 ABG 13 mmol/L (21-28); PCO2 ABG 29 mmHg (35-46); PH ABG 7.29 (7.35-7.45); PO2 ABG 60 mmHg (65-108); SAT O2 ABG 88 % (92-99)
[2017-01-03 13:02] LABS: FIO2 ABG 21
--- NOTE | 2017-01-03 13:38 | PDOC ---
PROGRESS NOTES Subjective Subjective Problems overnight: none. Results and plan discussed with him and questions answered. Objective Vital Signs Vital Signs Date Time Temp Pulse Resp B/P (MAP) Pulse Ox O2 Delivery O2 Flow Rate FiO2 01/03/17 13:00 Room Air 01/03/17 11:00 99.4 108 24 106/71 (83) 95 99.4 01/03/17 08:00 2.0 Physical Exam Heel ulcer on the right, left ankle tenderness is slightly improved, [place] boots in the bed bilaterally, although patient not wearing them all the time. Labs Laboratory Tests Test 01/01/17 22:23 01/01/17 22:25 01/02/17 00:05 01/02/17 06:51 Glucose (Fingerstick) 453 mg/dL (70-99) White Blood Count 16.7 x10^3/uL (4.0-11.0) Red Blood Count 3.13 x10^6/uL (4.30-5.70) Hemoglobin 9.6 g/dL (13.0-17.5) Hematocrit 29.0 % (39.0-53.0) Mean Corpuscular Volume 93 fL (79-100) Mean Corpuscular Hemoglobin 31 pg (25-35) Mean Corpuscular Hemoglobin Concent 33 g/dL (31-37) Red Cell Distribution Width 15.3 % (11.5-14.5) Platelet Count 142 x10^3/uL (140-400) Neutrophils (%) (Auto) 88 % (31-73) Lymphocytes (%) (Auto) 3 % (24-48) Monocytes (%) (Auto) 9 % (0-9) Eosinophils (%) (Auto) 0 % (0-3) Basophils (%) (Auto) 0 % (0-3) Neutrophils # (Auto) 14.6 x10^3uL (1.8-7.7) Lymphocytes # (Auto) 0.5 x10^3/uL (1.0-4.8) Monocytes # (Auto) 1.5 x10^3/uL (0.0-1.1) Eosinophils # (Auto) 0.0 x10^3/uL (0.0-0.7) Basophils # (Auto) 0.0 x10^3/uL (0.0-0.2) Segmented Neutrophils % 68 % (35-66) Band Neutrophils % 23 % (0-9) Lymphocytes % 5 % (24-48) Monocytes % 4 % (0-10) Platelet Estimate Adequate (ADEQUATE) Urine Collection Type Unknown Urine Color Evita Urine Clarity Cloudy Urine pH 5.0 Urine Specific [place] >=1.030 Urine Protein 100 mg/dL (NEG-TRACE) Urine Glucose (UA) >=1000 mg/dL (NEG) Urine Ketones (Stick) Trace mg/dL (NEG) Urine Blood Trace (NEG) Urine Nitrite Negative (NEG) Urine Bilirubin Small (NEG) Urine Urobilinogen Dipstick 1.0 mg/dL (0.2 mg/dL) Urine Leukocyte Esterase Negative (NEG) Urine RBC 0 /HPF (0-2) Urine WBC Occ /HPF (0-4) Urine Squamous Epithelial Cells Occ /LPF Urine Bacteria 0 /HPF (0-FEW) Urine Hyaline Casts Few /HPF Urine Granular Casts Few /HPF Sodium Level 132 mmol/L (136-145) Potassium Level 4.3 mmol/L (3.5-5.1) Chloride Level 96 mmol/L (98-107) Carbon Dioxide Level 20 mmol/L (21-32) Anion Gap 16 (6-14) Blood Urea Nitrogen 30 mg/dL (8-26) Creatinine 1.8 mg/dL (0.7-1.3) Estimated GFR (Cockcroft-Gault) 38.4 BUN/Creatinine Ratio 17 (6-20) Glucose Level 504 mg/dL (70-99) Calcium Level 8.0 mg/dL (8.5-10.1) Total Bilirubin 1.5 mg/dL (0.2-1.0) Aspartate Amino Transf (AST/SGOT) 14 U/L (15-37) Alanine Aminotransferase (ALT/SGPT) 22 U/L (16-63) Alkaline Phosphatase 90 U/L (46-116) Troponin I Quantitative < 0.017 ng/mL (0.000-0.055) Total Protein 6.7 g/dL (6.4-8.2) Albumin 3.0 g/dL (3.4-5.0) Albumin/Globulin Ratio 0.8 (1.0-1.7) Lipase 81 U/L (73-393) Lactic Acid Level 3.3 mmol/L (0.4-2.0) 1.1 mmol/L (0.4-2.0) Test 01/02/17 06:57 01/02/17 07:30 01/02/17 10:55 01/02/17 11:35 Hemoglobin A1c 10.4 % (4.8-5.6) Glucose (Fingerstick) 304 mg/dL (70-99) 392 mg/dL (70-99) Erythrocyte Sedimentation Rate > 150 (0-15) Uric Acid 6.9 mg/dL (3.5-7.2) Test 01/02/17 17:19 01/02/17 20:20 01/03/17 04:40 01/03/17 08:15 Glucose (Fingerstick) 263 mg/dL (70-99) 263 mg/dL (70-99) 266 mg/dL (70-99) White Blood Count 13.1 x10^3/uL (4.0-11.0) Red Blood Count 2.64 x10^6/uL (4.30-5.70) Hemoglobin 8.3 g/dL (13.0-17.5) Hematocrit 24.4 % (39.0-53.0) Mean Corpuscular Volume 93 fL (79-100) Mean Corpuscular Hemoglobin 31 pg (25-35) Mean Corpuscular Hemoglobin Concent 34 g/dL (31-37) Red Cell Distribution Width 15.7 % (11.5-14.5) Platelet Count 117 x10^3/uL (140-400) Neutrophils (%) (Auto) 86 % (31-73) Lymphocytes (%) (Auto) 5 % (24-48) Monocytes (%) (Auto) 9 % (0-9) Eosinophils (%) (Auto) 0 % (0-3) Basophils (%) (Auto) 0 % (0-3) Neutrophils # (Auto) 11.2 x10^3uL (1.8-7.7) Lymphocytes # (Auto) 0.6 x10^3/uL (1.0-4.8) Monocytes # (Auto) 1.2 x10^3/uL (0.0-1.1) Eosinophils # (Auto) 0.0 x10^3/uL (0.0-0.7) Basophils # (Auto) 0.0 x10^3/uL (0.0-0.2) Sodium Level 135 mmol/L (136-145) Potassium Level 4.4 mmol/L (3.5-5.1) Chloride Level 101 mmol/L (98-107) Carbon Dioxide Level 19 mmol/L (21-32) Anion Gap 15 (6-14) Blood Urea Nitrogen 49 mg/dL (8-26) Creatinine 3.7 mg/dL (0.7-1.3) Estimated GFR (Cockcroft-Gault) 16.7 BUN/Creatinine Ratio 13 (6-20) Glucose Level 231 mg/dL (70-99) Calcium Level 7.8 mg/dL (8.5-10.1) Total Bilirubin 0.9 mg/dL (0.2-1.0) Aspartate Amino Transf (AST/SGOT) 26 U/L (15-37) Alanine Aminotransferase (ALT/SGPT) 26 U/L (16-63) Alkaline Phosphatase 91 U/L (46-116) C-Reactive Protein, Quantitative 408.0 mg/L (0-3.3) Total Protein 6.6 g/dL (6.4-8.2) Albumin 2.3 g/dL (3.4-5.0) Albumin/Globulin Ratio 0.5 (1.0-1.7) Test 01/03/17 09:44 01/03/17 11:07 01/03/17 11:30 01/03/17 11:50 Glucose (Fingerstick) 295 mg/dL (70-99) 346 mg/dL (70-99) O2 Saturation 88 % (92-99) Arterial Blood pH 7.29 (7.35-7.45) Arterial Blood pCO2 at Patient Temp 29 mmHg (35-46) Arterial Blood pO2 at Patient Temp 60 mmHg (65-108) Arterial Blood HCO3 13 mmol/L (21-28) Arterial Blood Base Excess -12 mmol/L (-3-3) FiO2 21 Vancomycin Level Trough 46.4 mcg/mL (10.0-20.0) Vancomycin Last Dose Date 01/03/17 Vancomycin Last Dose Time 0000 Laboratory Tests Test 01/02/17 17:19 01/02/17 20:20 01/03/17 04:40 01/03/17 08:15 Glucose (Fingerstick) 263 mg/dL (70-99) 263 mg/dL (70-99) 266 mg/dL (70-99) White Blood Count 13.1 x10^3/uL (4.0-11.0) Red Blood Count 2.64 x10^6/uL (4.30-5.70) Hemoglobin 8.3 g/dL (13.0-17.5) Hematocrit 24.4 % (39.0-53.0) Mean Corpuscular Volume 93 fL (79-100) Mean Corpuscular Hemoglobin 31 pg (25-35) Mean Corpuscular Hemoglobin Concent 34 g/dL (31-37) Red Cell Distribution Width 15.7 % (11.5-14.5) Platelet Count 117 x10^3/uL (140-400) Neutrophils (%) (Auto) 86 % (31-73) Lymphocytes (%) (Auto) 5 % (24-48) Monocytes (%) (Auto) 9 % (0-9) Eosinophils (%) (Auto) 0 % (0-3) Basophils (%) (Auto) 0 % (0-3) Neutrophils # (Auto) 11.2 x10^3uL (1.8-7.7) Lymphocytes # (Auto) 0.6 x10^3/uL (1.0-4.8) Monocytes # (Auto) 1.2 x10^3/uL (0.0-1.1) Eosinophils # (Auto) 0.0 x10^3/uL (0.0-0.7) Basophils # (Auto) 0.0 x10^3/uL (0.0-0.2) Sodium Level 135 mmol/L (136-145) Potassium Level 4.4 mmol/L (3.5-5.1) Chloride Level 101 mmol/L (98-107) Carbon Dioxide Level 19 mmol/L (21-32) Anion Gap 15 (6-14) Blood Urea Nitrogen 49 mg/dL (8-26) Creatinine 3.7 mg/dL (0.7-1.3) Estimated GFR (Cockcroft-Gault) 16.7 BUN/Creatinine Ratio 13 (6-20) Glucose Level 231 mg/dL (70-99) Calcium Level 7.8 mg/dL (8.5-10.1) Total Bilirubin 0.9 mg/dL (0.2-1.0) Aspartate Amino Transf (AST/SGOT) 26 U/L (15-37) Alanine Aminotransferase (ALT/SGPT) 26 U/L (16-63) Alkaline Phosphatase 91 U/L (46-116) C-Reactive Protein, Quantitative 408.0 mg/L (0-3.3) Total Protein 6.6 g/dL (6.4-8.2) Albumin 2.3 g/dL (3.4-5.0) Albumin/Globulin Ratio 0.5 (1.0-1.7) Test 01/03/17 09:44 01/03/17 11:07 01/03/17 11:30 01/03/17 11:50 Glucose (Fingerstick) 295 mg/dL (70-99) 346 mg/dL (70-99) O2 Saturation 88 % (92-99) Arterial Blood pH 7.29 (7.35-7.45) Arterial Blood pCO2 at Patient Temp 29 mmHg (35-46) Arterial Blood pO2 at Patient Temp 60 mmHg (65-108) Arterial Blood HCO3 13 mmol/L (21-28) Arterial Blood Base Excess -12 mmol/L (-3-3) FiO2 21 Vancomycin Level Trough 46.4 mcg/mL (10.0-20.0) Vancomycin Last Dose Date 01/03/17 Vancomycin Last Dose Time 0000 Imaging MRI shows nonunion as expected but no convincing evidence of deep osteomyelitis or bone destruction. Assessment Assessment Right calcaneus open wound. No convincing evidence on MRI of osteomyelitis. 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 Problems: Plan Plan of Care Case discussed by Chelita with Dr. Biswas vascular surgery, and with adequate blood flow, and minimal osteomyelitis evidence on MRI, debridement could be successful. We will plan debridement tomorrow and wound VAC application. I discussed the case with the patient, and risks and benefits, and that there is a chance of failure of debridement with wound care, and then I would consider below-knee amputation. We will plan the debridement tomorrow. DELVIN STROUD MD Jan 03, 2017 13:38
--- NOTE | 2017-01-03 14:17 | PDOC ---
Provider Note Provider Note [id number] acute resp fail abnl cxr septis anjelica worsening to icu bipap abx better control of bs see orders EFREM BLUE MD Jan 03, 2017 14:17
--- NOTE | 2017-01-03 14:24 | RAD ---
Indication peripheral vascular disease. At risk for carotid stenosis. Grayscale color Doppler and spectral imaging was performed. Examination was targeted to the carotid bifurcations. On the right there is mild plaquing at the bifurcation. The common carotid waveform and velocities are normal. There is a moderately elevated peak systolic velocity associated with the external carotid compatible with incidental stenosis in this vessel. The internal carotid waveform and velocities are within normal limits. The vertebral is patent and demonstrates normal directional flow. On the left there is also some mild plaquing similar to the contralateral side. The color Doppler images do not suggest significant turbulence. The common carotid waveform and velocities are normal. There is a slightly elevated peak systolic velocity associated with the external carotid compatible with incidental stenosis in this vessel. The internal carotid waveform appears unremarkable.. There is slightly elevated peak systolic and diastolic velocities associated with the external carotid. These values are approximately 141 and 38 cm/s respectively. These findings would be compatible with stenosis in the 50-69% range associated with the internal carotid. The vertebral is patent and demonstrates normal directional flow. The visualized subclavian arteries appear normal. IMPRESSION: Mild plaquing of the carotid bifurcations. Stenosis in the 50-69% range associated with the left internal carotid. No hemodynamically significant stenosis seen on the right Incidental stenosis noted in the external carotid arteries bilaterally. Note: Stenosis calculations for CT, MR and conventional angiography are based upon determination of the distal ICA diameter in accordance with the NASCET methodology. Stenosis calculations for doppler studies are derived from validated velocity criteria which are known to correlate with NASCET methodology of determining stenosis.
--- NOTE | 2017-01-03 14:52 | CONS ---
DATE OF CONSULTATION: 01/03/2017 I was asked to see this 61-year-old gentleman for hypoxemia. HISTORY OF PRESENT ILLNESS: He is a lifelong nonsmoker. He is confused. He opens his eyes and answers all my questions. Per nurse, he had one episode of sweating and has become more confused. An ABG was done, pH 7.28, pCO2 of 28, pO2 of 60 on 2 liters of oxygen. He has foot pain. He has cough. He has shortness of breath. He denies chest pain. PAST MEDICAL HISTORY: Chronic kidney disease, peripheral vascular disease, diabetes mellitus, morbid obesity. He has sleep apnea, but does not use his CPAP. He has gangrenous of the peripheral right heel. He is on antibiotic. He is going for debridement tomorrow. SOCIAL HISTORY: He is lifelong nonsmoker. FAMILY HISTORY: Positive for hypertension. ALLERGIES: MORPHINE. MEDICATIONS: Currently, he is on Zosyn, Flomax, Lipitor, insulin, Lovenox, gabapentin, Protonix, Celexa, Glucophage. REVIEW OF SYSTEMS: As mentioned as above. He states that he does not like his CPAP, other systems are otherwise negative. PHYSICAL EXAMINATION: GENERAL: This is an obese gentleman. VITAL SIGNS: His O2 saturation on 2 liters of oxygen is 92%, respiratory rate 24, blood pressure 103/68, temperature 99.4, heart rate 108. HEENT: Normocephalic, atraumatic. Pupils equal, round, reactive to light. He has shallow oropharynx. Nose is clear. NECK: There is no JVD, lymphadenopathy, or thyromegaly. CARDIOVASCULAR: Tachycardic. CHEST: Inspection is normal. LUNGS: There are bibasilar crackles, dullness at the bases. ABDOMEN: Soft and obese. Bowel sounds are good. EXTREMITIES: There is edema. LYMPHATICS: There is no lymphadenopathy. NEUROLOGIC: He is confused. SKIN: Chronic changes. LABORATORY DATA: I reviewed the following lab data: Chest x-ray shows increased vascular marking and cardiomegaly. Sodium 135, potassium 4.4, chloride 101, CO2 19, glucose 231, BUN 49, creatinine 3.7. On 01/01/2017, his creatinine was 1.8 and glucose 346. ABG: pH 7.28, pCO2 of 28, pO2 of 60 on 2 liters of oxygen. IMPRESSION: 1. Acute hypoxemic respiratory failure. 2. Confusion, could be secondary to sepsis versus others. 3. Metabolic acidosis secondary to worsening renal failure. 4. Acute kidney injury. 5. Chronic kidney disease. 6. Diabetes mellitus. 7. Hypertension. 8. Obstructive sleep apnea-hypopnea syndrome. 9. Diabetic foot. PLAN AND RECOMMENDATIONS: 1. I do recommend to transfer the patient to ICU. 2. Start BiPAP 12/8, rate of 8. Monitor respiratory status very closely. Continue BiPAP until his respiratory status is more stable. 3. Check cardiac enzymes. 4. Continue antibiotic per ID. 5. Nephrology is consulted. 6. Check lactic acidosis. 7. Monitor respiratory status very closely. 8. Lovenox for DVT prophylaxis. 9. Protonix for stress ulcer prophylaxis. 10. The findings and recommendations were discussed with the patient, his family, and RN. I will discuss the findings and recommendations with attending physician regarding transferring the patient to ICU. Thank you very much for allowing me to participate in care of this very nice gentleman. EFREM BLUE M.D. DR: Mich JOB#: [id number] / [id number]
[2017-01-03] MEDS ORDERED: IV NORMAL SALINE 1000ML BAG 1,000 ML IV ONE (15:15)
[2017-01-03] MEDS: IPRATRPIUM/ALBUTEROL 0.5/2.5MG 3 ML NEBU. NEB SCH ×2 (15:30→20:52)
[2017-01-03 15:44] LABS: CKMB MASS 1.4 ng/mL (0.0-3.6)
[2017-01-03] MEDS ORDERED: SODIUM BICARB ADULT 8.4% 50 MEQ/50 ML DISP.SYRIN. IV ONE ×3 (16:00)
[2017-01-03] MEDS ORDERED: IV NORMAL SALINE 500ML BAG 500 ML IV PRN (16:00)
[2017-01-03] MEDS: PIPERACILLIN/TAZOBACTAM 2.25 GM in IV NORMAL SALINE 50ML 50 ML IV SCH ×2 (16:08→21:42)
--- NOTE | 2017-01-03 16:28 | RAD ---
Indication abnormal liver function tests. Grayscale imaging targeted to the kidneys was performed. An attempt was made to also interrogated the renal vasculature but this was unsuccessful on the right. Limited on the left. The proximal left main renal artery was not seen. The mid and distal aspects of the left renal artery were seen. The right kidney measures approximately 12.8 cm and appears grossly morphologically normal. The left kidney measures approximately 12.5 cm and also appears unremarkable. Again the renal vasculature associated with the right kidney was not visualized. That portion of the main left renal artery which was seen appeared normal. The peak systolic velocities associated with the visualized left renal artery appeared normal. The resistive index of 0.77 was normal. The aorta also was obscured by gas. IMPRESSION: Normal morphologic appearance of the kidneys. Inability to visualize renal vasculature associated with the right kidney. Limited evaluation of the renal vasculature associated with the left kidney is unremarkable
--- NOTE | 2017-01-03 16:34 | RAD ---
Indication edema and swelling. Grayscale color Doppler and spectral imaging was performed. The examination was targeted to the veins of the right lower extremity. The common femoral, femoral and popliteal vessels demonstrate normal flow compressibility and augmentation. No thrombus is seen. The visualized calf veins appeared unremarkable. IMPRESSION: Negative right lower extremity venous analysis for DVT
[2017-01-03] MEDS: SODIUM BICARBONATE VIAL 75 MEQ in IV 1/2 NORMAL SALINE 1,000 ML IV SCH (17:09)
[2017-01-03 20:15] LABS: BILIRUBIN,URINE SMALL (NEG); GLUCOSE,URINE >=1000 mg/dL (NEG); NITRITE,URINE NEGATIVE (NEG); PROTEIN,URINE 100 mg/dL (NEG-TRACE)
[2017-01-03 20:27] LABS: BACTERIA,URINE 0 /HPF (0-FEW); RBC,URINE 0 /HPF (0-2); WBC,URINE OCC /HPF (0-4)
[2017-01-03] MEDS: TAMSULOSIN 0.4 MG CAP.ER.24H. PO SCH (21:39)
[2017-01-03] MEDS: ATORVASTATIN CALCIUM 20 MG TABLET PO SCH (21:40)
--- NOTE | 2017-01-03 22:54 | CONS ---
DATE OF CONSULTATION: 01/03/2017 CHIEF COMPLAINT: Right heel DICTATION ENDS HERE ISSAC LAGUNA MD DR: MELISSA/annika JOB#: [id number] / [id number]
[2017-01-04] VITALS (24 sets, daily range): BP systolic 81–125; BP diastolic 51–77
[2017-01-04] MEDS: SODIUM BICARBONATE VIAL 75 MEQ in IV 1/2 NORMAL SALINE 1,000 ML IV SCH ×3 (00:36→20:34)
[2017-01-04 00:39] LABS: HCO3 ABG 18 mmol/L (21-28); PCO2 ABG 36 mmHg (35-46); PO2 ABG 108 mmHg (65-108); SAT O2 ABG 97 % (92-99)
[2017-01-04 00:42] LABS: PH ABG 7.33 (7.35-7.45)
[2017-01-04 00:43] LABS: FIO2 ABG 40
[2017-01-04] MEDS ORDERED: ACETAMINOPHEN 650 MG SUPP.RECT. PR PRN (02:00)
[2017-01-04] MEDS: PIPERACILLIN/TAZOBACTAM 2.25 GM in IV NORMAL SALINE 50ML 50 ML IV SCH ×3 (06:13→21:51)
[2017-01-04 06:58] LABS: BASO % 0 % (0-3); EOS % 0 % (0-3); LYMPH # 0.7 x10^3/uL (1.0-4.8); LYMPH % 6 % (24-48); MEAN CORPUSCULAR HEMOGLOBIN 31 pg (25-35); MEAN CORPUSCULAR HGB CONC 34 g/dL (31-37); MEAN CORPUSCULAR VOLUME 91 fL (79-100); MONO % 8 % (0-9); NEUT % 86 % (31-73); PLATELET COUNT 128 x10^3/uL (140-400); RED BLOOD COUNT 2.24 x10^6/uL (4.30-5.70); RED CELL DISTRIBUTION WIDTH 15.3 % (11.5-14.5); WHITE BLOOD COUNT 11.9 x10^3/uL (4.0-11.0)
[2017-01-04 07:08] LABS: HEMATOCRIT 20.4 % (39.0-53.0)
[2017-01-04 07:15] LABS: CALCIUM 7.9 mg/dL (8.5-10.1); CREATININE 5.5 mg/dL (0.7-1.3); GFR 10.6; POTASSIUM 4.1 mmol/L (3.5-5.1)
[2017-01-04] MEDS: IPRATRPIUM/ALBUTEROL 0.5/2.5MG 3 ML NEBU. NEB SCH ×4 (08:23→20:11)
[2017-01-04] MEDS: LOSARTAN POTASSIUM 50 MG TABLET. PO SCH (09:00)
[2017-01-04] MEDS: metFORMIN 500 MG TABLET PO SCH (09:00)
[2017-01-04] MEDS: CHOLECALCIFEROL (VITAMIN D3) 1,000 UNIT TABLET PO SCH (09:50)
[2017-01-04] MEDS: BISACODYL 5 MG TABLET.DR. PO SCH (09:50)
[2017-01-04] MEDS: PANTOPRAZOLE 40 MG TABLET.DR. PO SCH (09:51)
[2017-01-04] MEDS: IRON POLYSACCHARIDE COMPLEX 150 MG CAPSULE PO SCH ×2 (09:51→20:44)
[2017-01-04] MEDS: CITALOPRAM 20 MG TABLET. PO SCH (09:51)
[2017-01-04] MEDS: SENNOSIDES/DOCUSATE 8.6/50MG TABLET. PO SCH ×2 (09:51→20:44)
[2017-01-04] MEDS: GABAPENTIN 300 MG CAPSULE. PO SCH ×2 (09:51→20:44)
[2017-01-04] MEDS: LIDOCAINE (700MG/PATCH) PATCH. TD SCH (09:53)
--- NOTE | 2017-01-04 09:55 | PDOC ---
Infectious Disease Note Subjective Subjective c/o lower back and left heel pain. Denies SOA, cough or CP Temp 100.0 UO decreased ROS ROS GEN: Denies chills GI: Denies n/v/d NEURO: Denies confusion Vital Sign Vital Signs Vital Signs Date Time Temp Pulse Resp B/P (MAP) Pulse Ox O2 Delivery O2 Flow Rate FiO2 01/04/17 08:23 93 Nasal Cannula 3.0 01/04/17 06:00 99.1 94 20 117/67 (84) 99.1 Physical Exam PHYSICAL EXAM GENERAL: Lying down, NAD LUNGS: Clear HEART: S1S2 ABD: Obese, soft, NT EXT: Right foot bandaged. LLE swelling STADIUM ATTENDANT: Alert, Oriented x 3. SKIN: No rash Peripheral IVs Labs Lab Laboratory Tests Test 01/03/17 11:07 01/03/17 11:30 01/03/17 11:50 01/03/17 15:07 O2 Saturation 88 % (92-99) Arterial Blood pH 7.29 (7.35-7.45) Arterial Blood pCO2 at Patient Temp 29 mmHg (35-46) Arterial Blood pO2 at Patient Temp 60 mmHg (65-108) Arterial Blood HCO3 13 mmol/L (21-28) Arterial Blood Base Excess -12 mmol/L (-3-3) FiO2 21 Vancomycin Level Trough 46.4 mcg/mL (10.0-20.0) Vancomycin Last Dose Date 01/03/17 Vancomycin Last Dose Time 0000 Glucose (Fingerstick) 346 mg/dL (70-99) Lactic Acid Level 1.1 mmol/L (0.4-2.0) Creatine Kinase 106 U/L (39-308) Creatine Kinase MB (Mass) 1.4 ng/mL (0.0-3.6) Creatine Kinase MB Relative Index 1.3 % (0-4) Troponin I Quantitative 0.240 ng/mL (0.000-0.055) Test 01/03/17 17:07 01/03/17 19:00 01/03/17 21:39 01/04/17 00:23 Glucose (Fingerstick) 341 mg/dL (70-99) 262 mg/dL (70-99) Urine Collection Type Unknown Urine Color [place] Urine Clarity Turbid Urine pH 5.0 Urine Specific [place] >=1.030 Urine Protein 100 mg/dL (NEG-TRACE) Urine Glucose (UA) >=1000 mg/dL (NEG) Urine Ketones (Stick) Trace mg/dL (NEG) Urine Blood Negative (NEG) Urine Nitrite Negative (NEG) Urine Bilirubin Small (NEG) Urine Urobilinogen Dipstick 1.0 mg/dL (0.2 mg/dL) Urine Leukocyte Esterase Trace (NEG) Urine RBC 0 /HPF (0-2) Urine WBC Occ /HPF (0-4) Urine Amorphous Sediment Present /HPF Urine Bacteria 0 /HPF (0-FEW) O2 Saturation 97 % (92-99) Arterial Blood pH 7.33 (7.35-7.45) Arterial Blood pCO2 at Patient Temp 36 mmHg (35-46) Arterial Blood pO2 at Patient Temp 108 mmHg (65-108) Arterial Blood HCO3 18 mmol/L (21-28) Arterial Blood Base Excess -7 mmol/L (-3-3) FiO2 40 Test / 06:50 White Blood Count 11.9 x10^3/uL (4.0-11.0) Red Blood Count 2.24 x10^6/uL (4.30-5.70) Hemoglobin 7.0 g/dL (13.0-17.5) Hematocrit 20.4 % (39.0-53.0) Mean Corpuscular Volume 91 fL (79-100) Mean Corpuscular Hemoglobin 31 pg (25-35) Mean Corpuscular Hemoglobin Concent 34 g/dL (31-37) Red Cell Distribution Width 15.3 % (11.5-14.5) Platelet Count 128 x10^3/uL (140-400) Neutrophils (%) (Auto) 86 % (31-73) Lymphocytes (%) (Auto) 6 % (24-48) Monocytes (%) (Auto) 8 % (0-9) Eosinophils (%) (Auto) 0 % (0-3) Basophils (%) (Auto) 0 % (0-3) Neutrophils # (Auto) 10.2 x10^3uL (1.8-7.7) Lymphocytes # (Auto) 0.7 x10^3/uL (1.0-4.8) Monocytes # (Auto) 1.0 x10^3/uL (0.0-1.1) Eosinophils # (Auto) 0.0 x10^3/uL (0.0-0.7) Basophils # (Auto) 0.0 x10^3/uL (0.0-0.2) Sodium Level 135 mmol/L (136-145) Potassium Level 4.1 mmol/L (3.5-5.1) Chloride Level 100 mmol/L (98-107) Carbon Dioxide Level 22 mmol/L (21-32) Anion Gap 13 (6-14) Blood Urea Nitrogen 67 mg/dL (8-26) Creatinine 5.5 mg/dL (0.7-1.3) Estimated GFR (Cockcroft-Gault) 10.6 Glucose Level 227 mg/dL (70-99) Calcium Level 7.9 mg/dL (8.5-10.1) Micro BLOOD CULTURE Preliminary NO GROWTH AFTER 2 DAY Objective Assessment Gangrenous ulcer of right heel. MRI shows chronic neuropathic arthropathy changes with hardware in place; no definite evidence of acute osteo noted but cannot ruled out entirely with elevated ESR and WBC. Leukocytosis, better Lactic acidosis, better BRYCE on CKD, worse Left ankle nondisplaced fracture PVD-mild Severe peripheral neuropathy Uncontrolled Type II diabetes mellitus Morbid obesity, BMI 46 Plan Plan of Care Continue Zosyn, dose for renal function Await debridement, will need intra-op tissue/bone cultures Await renal f/u D/w RN Attending Co-Sign The patient was seen and interviewed as well as examined at the bedside. The chart was reviewed. The case was discussed. Agree with the plan of care. ULISSES CABEZAS APRN Jan 04, 2017 09:55 ROLANDO RUIZ MD Jan 04, 2017 14:46
[2017-01-04] MEDS: INSULIN ASPART 300 UNITS/3 ML INSULN.PEN SQ SCH ×7 (09:56→20:51)
[2017-01-04] MEDS: INSULIN DETEMIR 300 UNITS/3 ML INSULN.PEN. SQ SCH ×2 (09:57→14:00)
[2017-01-04] MEDS ORDERED: HEPARIN for IV BOLUS 10,000 UNIT/10 ML VIAL. ONE (11:22)
--- NOTE | 2017-01-04 11:22 | PDOC2 ---
CONSULT Date of Consult Date of Consult DATE: 01/04/17 TIME: 11:12 Reason for Consult Reason for Consult: BRYCE Referring Physician Referring Physician: ETHAN Identification/Chief Complaint Chief Complaint CONFUSION AND FOOT WOUND Problems: Source Source: Chart review, Patient History of Present Illness Reason for Visit: THIS IS A 61 YR OLD MAN WITH SOB AND CONFUSION. WAS DX WITH ACUTE HYPOXIC RESP FAILURE. ALSO NOTED TO HAVE UNCONTROLLED BLOOD SUGARS AND RIGHT FOOT ULCER AND WOUND NEEDING DEBRIDEMENT. CR ON ADMIT WAS 1.8 BUT SINCE THEN HE HAS HAS PROGRESSIVE DECREASE IN HIS UO AND IS NOTED TO HAVE A CR OF 5.5 NOW. HE IS SCHEDULED FOR THE OR FOR WOUND DEBRIDEMENT TODAY. HE WAS SOMEWHAT CONFUSED ON ADMIT BUT APPEARS TO BE THINKING CLEARLY TODAY Past Medical History Cardiovascular: HTN, Hyperlipidemia CENTRAL NERVOUS SYSTEM: CVA, Periperal neuropathy, Other (sleep apnea) GI: GERD Psych: Depression Musculoskeletal: low back pain, Osteoarthritis Renal/: Chronic renal insuff Endocrine: Diabetes Family History Family History: Diabetes, Hypertension Social History 1 pack per day ALCOHOL: rare Drugs: None Lives: with Family Current Problem List Problem List Problems Medical Problems: (1) Diabetic foot ulcer Status: Acute (2) Hyperglycemia Status: Acute (3) Sepsis Status: Acute Current Medications Current Medications Current Medications Sodium Chloride 1,000 ml @ 1,000 mls/hr 1X ONCE IV Last administered on 23:15; Start 01/01/17 at 23:00; Stop 01/01/17 at 23:59; Status DC Ampicillin Sodium/ Sulbactam Sodium 3 gm/Sodium Chloride 100 ml @ 200 mls/hr 1X ONCE IV Last administered on 01/01/17 23:43; Start 01/02/17 at 00:00; Stop 01/02/17 at 00:29; Status DC Vancomycin HCl (Vanco Per Pharmacy) 1 each PRN DAILY PRN MC SEE COMMENTS Last administered on 01/02/17 13:53; Start 01/01/17 at 23:30; Stop 01/03/17 at 12:11 ; Status DC Vancomycin HCl 2 gm/Sodium Chloride 500 ml @ 250 mls/hr 1X ONCE IV Last administered on 01/02/17 00:32; Start 01/02/17 at 00:00; Stop 01/02/17 at 01:59 ; Status DC Sodium Chloride 1,000 ml @ 2,000 mls/hr Q30M IV Last administered on 04:10; Start 01/02/17 at 00:00; Stop 01/02/17 at 02:15; Status DC Hydrocortisone Acetate (Anucort-Hc) [address] Last administered on 01/01 23:43; Start 01/02/17 at 00:00; Stop 01/02/17 at 00:01; Status DC Hydromorphone HCl (Dilaudid) 1 mg 1X ONCE IV Last administered on 01/02/17 00 :35; Start 01/02/17 at 01:00; Stop 01/02/17 at 01:01; Status DC Ondansetron HCl (Zofran) 4 mg 1X ONCE IV Last administered on 01/02/17 00:35 ; Start 01/02/17 at 01:00; Stop 01/02/17 at 01:01; Status DC Hydromorphone HCl (Dilaudid) 2 mg STK-MED ONCE .ROUTE ; Start 01/02/17 at 00:33 ; Stop 01/02/17 at 00:34; Status DC Ondansetron HCl (Zofran) 4 mg PRN Q8HRS PRN IV NAUSEA/VOMITING; Start 01/02/17 at 01:15; Stop 01/03/17 at 01:14; Status DC Fentanyl Citrate (Fentanyl 2ml Vial) 50 mcg PRN Q2HR PRN IV SEVERE PAIN Last administered on 01/02/17 20:45; Start 01/02/17 at 01:15; Stop 01/03/17 at 01:14 ; Status DC Acetaminophen (Tylenol) 650 mg PRN Q4HRS PRN PO FEVER; Start 01/02/17 at 01:15 ; Stop 01/03/17 at 01:14; Status DC Vancomycin HCl 2 gm/Sodium Chloride 500 ml @ 250 mls/hr Q12H IV Last administered on 01/03/17 00:00; Start 01/02/17 at 12:00; Stop 01/03/17 at 12:11 ; Status DC Vancomycin HCl 1 each 1X ONCE MC Last administered on 01/03/17 11:30; Start 01/03/17 at 11:30; Stop 01/03/17 at 11:31; Status DC Atorvastatin Calcium (Lipitor) 20 mg QHS PO Last administered on 01/03/17 21: 40; Start 01/02/17 at 21:00 Celecoxib (CeleBREX) 200 mg BID PO Last administered on 01/02/17 09:51; Start 01/02/17 at 09:00; Stop 01/02/17 at 10:30; Status DC Vitamin D (Vitamin D3) 1,000 unit DAILY PO Last administered on 01/04/17 09:50 ; Start 01/02/17 at 09:00 Clopidogrel Bisulfate (Plavix) 75 mg DAILY PO Last administered on 01/03/17 10 :41; Start 01/02/17 at 09:00 Losartan Potassium (Cozaar) 50 mg DAILY PO Last administered on 01/03/17 10:41 ; Start 01/02/17 at 09:00 Metformin HCl (Glucophage) 500 mg BID PO Last administered on 01/03/17 10:42; Start 01/02/17 at 09:00 Tamsulosin HCl (Flomax) 0.4 mg HS PO Last administered on 01/03/17 21:39; Start 01/02/17 at 21:00 Citalopram Hydrobromide (CeleXA) 40 mg DAILY PO Last administered on 01/04/17 09:51; Start 01/02/17 at 09:00 Pantoprazole Sodium (Protonix) 40 mg DAILYAC PO Last administered on 01/04/17 09:51; Start 01/02/17 at 09:00 Gabapentin (Neurontin) 300 mg BID PO Last administered on 01/04/17 09:51; Start 01/02/17 at 09:00 Insulin Aspart (NovoLOG) 23 units TIDAC SQ Last administered on 01/04/17 09:56 ; Start 01/02/17 at 11:30 Insulin Aspart (NovoLOG) 0-9 UNITS QIDACHS SQ Last administered on 01/04/17 09 :56; Start 01/02/17 at 11:30 Dextrose (Dextrose 50%-Water Syringe) 12.5 gm PRN Q15MIN PRN IV SEE COMMENTS; Start 01/02/17 at 08:45 Sodium Chloride 1,000 ml @ 100 mls/hr 1X ONCE IV Last administered on 09:50; Start 01/02/17 at 08:45; Stop 01/02/17 at 18:44; Status DC Lidocaine (Lidoderm) 1 patch DAILY TD Last administered on 01/04/17 09:53; Start 01/02/17 at 09:00 Insulin Detemir (Levemir) 40 units DAILY08 SQ Last administered on 01/04/17 09 :57; Start 01/02/17 at 09:00 Enoxaparin Sodium (Lovenox Per Pharmacy Prophylaxis Dosing) 1 each PRN DAILY PRN MC SEE COMMENTS; Start 01/02/17 at 09:15 Enoxaparin Sodium (Lovenox 40mg Syringe) 40 mg Q12H SQ Last administered on 21:42; Start 01/02/17 at 10:00; Stop 01/04/17 at 10:18; Status DC Polysaccharide Iron Complex (Niferex 150) 150 mg BID PO Last administered on 09:51; Start 01/02/17 at 12:00 Bisacodyl (Dulcolax Tab) 10 mg DAILY PO Last administered on 01/04/17 09:50; Start 01/02/17 at 12:00 Senna/Docusate Sodium (Senna Plus) 2 tab PRN BID PRN PO CONSTIPATION Last administered on 01/03/17 10:42; Start 01/02/17 at 10:45 Senna/Docusate Sodium (Senna Plus) 1 tab BID PO Last administered on 01/04/17 09:51; Start 01/02/17 at 12:00 Piperacillin Sod/ Tazobactam Sod 3.375 gm/Sodium Chloride 50 ml @ 100 mls/hr Q6H IV Last administered on 01/03/17 10:40; Start 01/02/17 at 16:00; Stop at 12:11; Status DC Sodium Chloride 1,000 ml @ 100 mls/hr Q10H IV ; Start 01/03/17 at 10:45; Stop 01/04/17 at 00:59; Status DC Piperacillin Sod/ Tazobactam Sod 2.25 gm/Sodium Chloride 50 ml @ 100 mls/hr Q8HRS IV Last administered on 01/04/17 06:13; Start 01/03/17 at 14:00 Albuterol/ Ipratropium (Duoneb) 3 ml RTQID NEB Last administered on 01/04/17 08:23; Start 01/03/17 at 16:00 Sodium Chloride 1,000 ml @ 1,000 mls/hr 1X ONCE IV Last administered on 15:16; Start 01/03/17 at 15:15; Stop 01/03/17 at 16:14; Status DC Sodium Bicarbonate 75 meq/Sodium Chloride 1,075 ml @ 125 mls/hr Q8H36M IV Last administered on 01/04/17 09:52; Start 01/03/17 at 16:00 Sodium Bicarbonate 50 meq 1X ONCE IV Last administered on 01/03/17 16:08; Start 01/03/17 at 16:00; Stop 01/03/17 at 16:15; Status DC Sodium Bicarbonate 50 meq 1X ONCE IV Last administered on 01/03/17 16:09; Start 01/03/17 at 16:00; Stop 01/03/17 at 16:15; Status DC Sodium Bicarbonate 50 meq 1X ONCE IV Last administered on 01/03/17 16:09; Start 01/03/17 at 16:00; Stop 01/03/17 at 16:15; Status DC Sodium Chloride 500 ml @ 500 mls/hr PRN Q4HRS PRN IV HYPOTENSION; Start at 16:00 Acetaminophen (Acetaminophen Supp) 650 [address]N Q6HRS PR[address] MILD PAIN / TEMP Last administered on 01/04/17 02:43; Start 01/04/17 at 02:00 Enoxaparin Sodium (Lovenox 40mg Syringe) 40 mg HS SQ ; Start 01/04/17 at 21:00 Active Scripts Active Reported Humalog (Insulin Lispro) 100 Unit/1 Ml Cartridge 23 Unit SQ TIDAC Vitamin D3 (Cholecalciferol (Vitamin D3)) 1,000 Unit Tablet 1 Tab PO DAILY Nexium Capsule (Esomeprazole Magnesium) 40 Mg Capsule.dr 1 Cap PO DAILY Losartan Potassium 50 Mg Tablet 50 Mg PO DAILY Gabapentin 300 Mg Capsule 300 Mg PO BID Celebrex (Celecoxib) 200 Mg Capsule 200 Mg PO BID 30 Days Citalopram Hbr (Citalopram Hydrobromide) 40 Mg Tablet 40 Mg PO DAILY Lipitor (Atorvastatin Calcium) 20 Mg Tablet 20 Mg PO QHS Flomax (Tamsulosin Hcl) 0.4 Mg Cap.er.24h 0.4 Mg PO HS Metformin Hcl 500 Mg Tablet 500 Mg PO BID Plavix (Clopidogrel Bisulfate) 75 Mg Tablet 75 Mg PO DAILY Allergies Allergies: Coded Allergies: morphine (Verified Allergy, Intermediate, 01/02/17) causes hallucinations ROS General: YES: Fatigue, Appetite PSYCHOLOGICAL ROS: YES: Anxiety Eyes: Yes Decreased vision HEENT: YES: Heacaches Respiratory: YES: Cough, Orthopnea Cardiovascular: yes Orthopnea Gastrointestinal: Yes Constipation Genitourinary: YES Other (ANURIA) Musculoskeletal: Yes Muscular Weakness Neurological: Yes Confusion Skin: Yes Dry Skin, Yes Skin Lesion Changes Physical Exam General: Alert, Oriented X3, Cooperative, No acute distress HEENT: Atraumatic, PERRLA Lungs: Clear to auscultation Heart: Regular rate, Normal S1 Abdomen: Normal bowel sounds, Soft, No tenderness Extremities: No clubbing Skin: Other (RIGHT FOOT GANGRENE) Psych/Mental Status: Mental status NL, Mood NL MUSCULOSKELETAL: No joint tenderness, No swelling Vitals VITALS Vital Signs Date Time Temp Pulse Resp B/P (MAP) Pulse Ox O2 Delivery O2 Flow Rate FiO2 01/04/17 11:00 98 20 104/58 (73) 96 Nasal Cannula 3.0 01/04/17 08:00 98.7 98.7 Labs Labs Laboratory Tests Test 01/02/17 11:35 01/02/17 17:19 01/02/17 20:20 01/03/17 04:40 Glucose (Fingerstick) 392 mg/dL (70-99) 263 mg/dL (70-99) 263 mg/dL (70-99) White Blood Count 13.1 x10^3/uL (4.0-11.0) Red Blood Count 2.64 x10^6/uL (4.30-5.70) Hemoglobin 8.3 g/dL (13.0-17.5) Hematocrit 24.4 % (39.0-53.0) Mean Corpuscular Volume 93 fL (79-100) Mean Corpuscular Hemoglobin 31 pg (25-35) Mean Corpuscular Hemoglobin Concent 34 g/dL (31-37) Red Cell Distribution Width 15.7 % (11.5-14.5) Platelet Count 117 x10^3/uL (140-400) Neutrophils (%) (Auto) 86 % (31-73) Lymphocytes (%) (Auto) 5 % (24-48) Monocytes (%) (Auto) 9 % (0-9) Eosinophils (%) (Auto) 0 % (0-3) Basophils (%) (Auto) 0 % (0-3) Neutrophils # (Auto) 11.2 x10^3uL (1.8-7.7) Lymphocytes # (Auto) 0.6 x10^3/uL (1.0-4.8) Monocytes # (Auto) 1.2 x10^3/uL (0.0-1.1) Eosinophils # (Auto) 0.0 x10^3/uL (0.0-0.7) Basophils # (Auto) 0.0 x10^3/uL (0.0-0.2) Sodium Level 135 mmol/L (136-145) Potassium Level 4.4 mmol/L (3.5-5.1) Chloride Level 101 mmol/L (98-107) Carbon Dioxide Level 19 mmol/L (21-32) Anion Gap 15 (6-14) Blood Urea Nitrogen 49 mg/dL (8-26) Creatinine 3.7 mg/dL (0.7-1.3) Estimated GFR (Cockcroft-Gault) 16.7 BUN/Creatinine Ratio 13 (6-20) Glucose Level 231 mg/dL (70-99) Calcium Level 7.8 mg/dL (8.5-10.1) Total Bilirubin 0.9 mg/dL (0.2-1.0) Aspartate Amino Transf (AST/SGOT) 26 U/L (15-37) Alanine Aminotransferase (ALT/SGPT) 26 U/L (16-63) Alkaline Phosphatase 91 U/L (46-116) C-Reactive Protein, Quantitative 408.0 mg/L (0-3.3) Total Protein 6.6 g/dL (6.4-8.2) Albumin 2.3 g/dL (3.4-5.0) Albumin/Globulin Ratio 0.5 (1.0-1.7) Test 01/03/17 08:15 01/03/17 09:44 01/03/17 11:07 01/03/17 11:30 Glucose (Fingerstick) 266 mg/dL (70-99) 295 mg/dL (70-99) O2 Saturation 88 % (92-99) Arterial Blood pH 7.29 (7.35-7.45) Arterial Blood pCO2 at Patient Temp 29 mmHg (35-46) Arterial Blood pO2 at Patient Temp 60 mmHg (65-108) Arterial Blood HCO3 13 mmol/L (21-28) Arterial Blood Base Excess -12 mmol/L (-3-3) FiO2 21 Vancomycin Level Trough 46.4 mcg/mL (10.0-20.0) Vancomycin Last Dose Date 01/03/17 Vancomycin Last Dose Time 0000 Test 01/03/17 11:50 01/03/17 15:07 01/03/17 17:07 01/03/17 19:00 Glucose (Fingerstick) 346 mg/dL (70-99) 341 mg/dL (70-99) Lactic Acid Level 1.1 mmol/L (0.4-2.0) Creatine Kinase 106 U/L (39-308) Creatine Kinase MB (Mass) 1.4 ng/mL (0.0-3.6) Creatine Kinase MB Relative Index 1.3 % (0-4) Troponin I Quantitative 0.240 ng/mL (0.000-0.055) Urine Collection Type Unknown Urine Color [place] Urine Clarity Turbid Urine pH 5.0 Urine Specific [place] >=1.030 Urine Protein 100 mg/dL (NEG-TRACE) Urine Glucose (UA) >=1000 mg/dL (NEG) Urine Ketones (Stick) Trace mg/dL (NEG) Urine Blood Negative (NEG) Urine Nitrite Negative (NEG) Urine Bilirubin Small (NEG) Urine Urobilinogen Dipstick 1.0 mg/dL (0.2 mg/dL) Urine Leukocyte Esterase Trace (NEG) Urine RBC 0 /HPF (0-2) Urine WBC Occ /HPF (0-4) Urine Amorphous Sediment Present /HPF Urine Bacteria 0 /HPF (0-FEW) Test 01/03/17 21:39 01/04/17 00:23 01/04/17 06:50 Glucose (Fingerstick) 262 mg/dL (70-99) O2 Saturation 97 % (92-99) Arterial Blood pH 7.33 (7.35-7.45) Arterial Blood pCO2 at Patient Temp 36 mmHg (35-46) Arterial Blood pO2 at Patient Temp 108 mmHg (65-108) Arterial Blood HCO3 18 mmol/L (21-28) Arterial Blood Base Excess -7 mmol/L (-3-3) FiO2 40 White Blood Count 11.9 x10^3/uL (4.0-11.0) Red Blood Count 2.24 x10^6/uL (4.30-5.70) Hemoglobin 7.0 g/dL (13.0-17.5) Hematocrit 20.4 % (39.0-53.0) Mean Corpuscular Volume 91 fL (79-100) Mean Corpuscular Hemoglobin 31 pg (25-35) Mean Corpuscular Hemoglobin Concent 34 g/dL (31-37) Red Cell Distribution Width 15.3 % (11.5-14.5) Platelet Count 128 x10^3/uL (140-400) Neutrophils (%) (Auto) 86 % (31-73) Lymphocytes (%) (Auto) 6 % (24-48) Monocytes (%) (Auto) 8 % (0-9) Eosinophils (%) (Auto) 0 % (0-3) Basophils (%) (Auto) 0 % (0-3) Neutrophils # (Auto) 10.2 x10^3uL (1.8-7.7) Lymphocytes # (Auto) 0.7 x10^3/uL (1.0-4.8) Monocytes # (Auto) 1.0 x10^3/uL (0.0-1.1) Eosinophils # (Auto) 0.0 x10^3/uL (0.0-0.7) Basophils # (Auto) 0.0 x10^3/uL (0.0-0.2) Sodium Level 135 mmol/L (136-145) Potassium Level 4.1 mmol/L (3.5-5.1) Chloride Level 100 mmol/L (98-107) Carbon Dioxide Level 22 mmol/L (21-32) Anion Gap 13 (6-14) Blood Urea Nitrogen 67 mg/dL (8-26) Creatinine 5.5 mg/dL (0.7-1.3) Estimated GFR (Cockcroft-Gault) 10.6 Glucose Level 227 mg/dL (70-99) Calcium Level 7.9 mg/dL (8.5-10.1) Laboratory Tests Test 01/03/17 11:30 01/03/17 11:50 01/03/17 15:07 01/03/17 17:07 Vancomycin Level Trough 46.4 mcg/mL (10.0-20.0) Vancomycin Last Dose Date 01/03/17 Vancomycin Last Dose Time 0000 Glucose (Fingerstick) 346 mg/dL (70-99) 341 mg/dL (70-99) Lactic Acid Level 1.1 mmol/L (0.4-2.0) Creatine Kinase 106 U/L (39-308) Creatine Kinase MB (Mass) 1.4 ng/mL (0.0-3.6) Creatine Kinase MB Relative Index 1.3 % (0-4) Troponin I Quantitative 0.240 ng/mL (0.000-0.055) Test 01/03/17 19:00 01/03/17 21:39 01/04/17 00:23 01/04/17 06:50 Urine Collection Type Unknown Urine Color [place] Urine Clarity Turbid Urine pH 5.0 Urine Specific [place] >=1.030 Urine Protein 100 mg/dL (NEG-TRACE) Urine Glucose (UA) >=1000 mg/dL (NEG) Urine Ketones (Stick) Trace mg/dL (NEG) Urine Blood Negative (NEG) Urine Nitrite Negative (NEG) Urine Bilirubin Small (NEG) Urine Urobilinogen Dipstick 1.0 mg/dL (0.2 mg/dL) Urine Leukocyte Esterase Trace (NEG) Urine RBC 0 /HPF (0-2) Urine WBC Occ /HPF (0-4) Urine Amorphous Sediment Present /HPF Urine Bacteria 0 /HPF (0-FEW) Glucose (Fingerstick) 262 mg/dL (70-99) O2 Saturation 97 % (92-99) Arterial Blood pH 7.33 (7.35-7.45) Arterial Blood pCO2 at Patient Temp 36 mmHg (35-46) Arterial Blood pO2 at Patient Temp 108 mmHg (65-108) Arterial Blood HCO3 18 mmol/L (21-28) Arterial Blood Base Excess -7 mmol/L (-3-3) FiO2 40 White Blood Count 11.9 x10^3/uL (4.0-11.0) Red Blood Count 2.24 x10^6/uL (4.30-5.70) Hemoglobin 7.0 g/dL (13.0-17.5) Hematocrit 20.4 % (39.0-53.0) Mean Corpuscular Volume 91 fL (79-100) Mean Corpuscular Hemoglobin 31 pg (25-35) Mean Corpuscular Hemoglobin Concent 34 g/dL (31-37) Red Cell Distribution Width 15.3 % (11.5-14.5) Platelet Count 128 x10^3/uL (140-400) Neutrophils (%) (Auto) 86 % (31-73) Lymphocytes (%) (Auto) 6 % (24-48) Monocytes (%) (Auto) 8 % (0-9) Eosinophils (%) (Auto) 0 % (0-3) Basophils (%) (Auto) 0 % (0-3) Neutrophils # (Auto) 10.2 x10^3uL (1.8-7.7) Lymphocytes # (Auto) 0.7 x10^3/uL (1.0-4.8) Monocytes # (Auto) 1.0 x10^3/uL (0.0-1.1) Eosinophils # (Auto) 0.0 x10^3/uL (0.0-0.7) Basophils # (Auto) 0.0 x10^3/uL (0.0-0.2) Sodium Level 135 mmol/L (136-145) Potassium Level 4.1 mmol/L (3.5-5.1) Chloride Level 100 mmol/L (98-107) Carbon Dioxide Level 22 mmol/L (21-32) Anion Gap 13 (6-14) Blood Urea Nitrogen 67 mg/dL (8-26) Creatinine 5.5 mg/dL (0.7-1.3) Estimated GFR (Cockcroft-Gault) 10.6 Glucose Level 227 mg/dL (70-99) Calcium Level 7.9 mg/dL (8.5-10.1) Assessment/Plan Assessment/Plan IMP BRYCE-POSSIBLE RELATED TO ANTIBIOTICS PROB CKD STAGE 3-CR 1.8 ON ADMIT ANEMIA DM II FOOT ULCER RIGHT LEFT FOOT FX LEUCOCYTOSIS RECENT ACUTE HYPOXIC RESP FAILURE COPD-HX OF TOBACCOISM PLAN STOP IVF'S START ARANESP TRIAL OF IV LASIX UNLESS EMERGENT WOULD HOLD OFF OR TODAY SINCE HE IS ANURIC WITH BRYCE WILL HAVE IR PLACE TEMP HD CATHETER TODAY AND INITIATE HD WILL UF ABOUT 1 LITER TOLERATED STOP HIS METFORMIN STOP HIS LOSARTAN MARSHAL SNOW MD Jan 04, 2017 11:22
[2017-01-04] MEDS ORDERED: LIDOCAINE 1% / SOD BICARB 8.4% 20 ML VIAL. IJ ONE (11:30)
[2017-01-04] MEDS ORDERED: FUROSEMIDE 40 MG/4 ML VIAL. IVP SCH (11:30)
[2017-01-04] MEDS: CLOPIDOGREL BISULFATE 75 MG TABLET PO SCH (12:22)
--- NOTE | 2017-01-04 12:50 | RAD ---
CHEST AP ONLY Clinical Indication: Central line placement Comparison: Chest radiograph dated 01/03/2017 Findings: New right IJ central venous catheter with tip at the superior cavoatrial junction. Low lung volume. No focal consolidation. Possible small right pleural effusion. No pneumothorax. Stable pulmonary vasculature. Stable cardiomegaly. The great vessels of the thorax are stable. No acute osseous abnormality. IMPRESSION: 1. New right IJ central venous catheter with tip at the superior cavoatrial junction. No pneumothorax. 2. Stable cardiomegaly. 3. Possible small right pleural effusion.
[2017-01-04] MEDS ORDERED: IV NORMAL SALINE 1000ML BAG 1,000 ML IV PRN (13:02)
[2017-01-04] MEDS ORDERED: diphenhydrAMINE 50 MG/ML VIAL IV PRN ×2 (13:15)
[2017-01-04] MEDS ORDERED: DIALYSIS PATIENT. MC PRN ×2 (13:15)
--- NOTE | 2017-01-04 13:43 | PDOC ---
PROGRESS NOTES Chief Complaint Chief Complaint Chief complaint: Right lower extremity ulcer Assessment and plan Altered mental status,: Unclear etiology, suspected due to hyperglycemia and acidosis, metabolic encephalopathy with BRYCE Right lower extremity heel ulcer, osteomyelitis ruled out: Imaging studies reviewed discussed with Dr. Biswas, orthopedics is planning for a debridement and the VAC placement. Elevated WBC: Continue current antibiotics Zosyn and vancomycin, fu with ID Metabolic acidosis: Likely related to infection: Ordered blood cultures, and all of temperature spike this morning Acute kidney injury: fu with renal ,new HD 01/04 Type 2 diabetes mellitus with hyperglycemia: Sliding scale insulin, increase levemir ot 45u daily, aspart 23u tid. Chronic kidney disease unknown baseline : Morbid obesity with sleep apnea: Try BiPAP based on ABGs Peripheral artery disease: Arterial ultrasound reviewed and venous Doppler revealed no DVTs discussed with Dr. Biswas, no plans for angiography based on renal functions at this time. Anemia, chronic dz, 1u PRBC 01/04 History of Present Illness History of Present Illness higher Cr, oliguria chronic right heel unhealing wound forgetful, cough with mucus hyperglycemia [id number] Vitals Vitals Vital Signs Date Time Temp Pulse Resp B/P (MAP) Pulse Ox O2 Delivery O2 Flow Rate FiO2 01/04/17 13:00 97 20 104/64 (77) 96 Nasal Cannula 3.0 01/04/17 12:00 99.4 99.4 Physical Exam General: Alert, Oriented X3, Cooperative, No acute distress Heart: Regular rate, Normal S1 Lungs: Clear Abdomen: Normal bowel sounds, Soft, No tenderness Extremities: No clubbing Skin: Other (RIGHT FOOT GANGRENE) Labs LABS Laboratory Tests Test 01/03/17 15:07 01/03/17 17:07 01/03/17 19:00 01/03/17 21:39 Lactic Acid Level 1.1 mmol/L (0.4-2.0) Creatine Kinase 106 U/L (39-308) Creatine Kinase MB (Mass) 1.4 ng/mL (0.0-3.6) Creatine Kinase MB Relative Index 1.3 % (0-4) Troponin I Quantitative 0.240 ng/mL (0.000-0.055) Glucose (Fingerstick) 341 mg/dL (70-99) 262 mg/dL (70-99) Urine Collection Type Unknown Urine Color Riley Urine Clarity Turbid Urine pH 5.0 Urine Specific [place] >=1.030 Urine Protein 100 mg/dL (NEG-TRACE) Urine Glucose (UA) >=1000 mg/dL (NEG) Urine Ketones (Stick) Trace mg/dL (NEG) Urine Blood Negative (NEG) Urine Nitrite Negative (NEG) Urine Bilirubin Small (NEG) Urine Urobilinogen Dipstick 1.0 mg/dL (0.2 mg/dL) Urine Leukocyte Esterase Trace (NEG) Urine RBC 0 /HPF (0-2) Urine WBC Occ /HPF (0-4) Urine Amorphous Sediment Present /HPF Urine Bacteria 0 /HPF (0-FEW) Test 01/04/17 00:23 01/04/17 06:50 01/04/17 09:55 01/04/17 12:20 O2 Saturation 97 % (92-99) Arterial Blood pH 7.33 (7.35-7.45) Arterial Blood pCO2 at Patient Temp 36 mmHg (35-46) Arterial Blood pO2 at Patient Temp 108 mmHg (65-108) Arterial Blood HCO3 18 mmol/L (21-28) Arterial Blood Base Excess -7 mmol/L (-3-3) FiO2 40 White Blood Count 11.9 x10^3/uL (4.0-11.0) Red Blood Count 2.24 x10^6/uL (4.30-5.70) Hemoglobin 7.0 g/dL (13.0-17.5) Hematocrit 20.4 % (39.0-53.0) Mean Corpuscular Volume 91 fL (79-100) Mean Corpuscular Hemoglobin 31 pg (25-35) Mean Corpuscular Hemoglobin Concent 34 g/dL (31-37) Red Cell Distribution Width 15.3 % (11.5-14.5) Platelet Count 128 x10^3/uL (140-400) Neutrophils (%) (Auto) 86 % (31-73) Lymphocytes (%) (Auto) 6 % (24-48) Monocytes (%) (Auto) 8 % (0-9) Eosinophils (%) (Auto) 0 % (0-3) Basophils (%) (Auto) 0 % (0-3) Neutrophils # (Auto) 10.2 x10^3uL (1.8-7.7) Lymphocytes # (Auto) 0.7 x10^3/uL (1.0-4.8) Monocytes # (Auto) 1.0 x10^3/uL (0.0-1.1) Eosinophils # (Auto) 0.0 x10^3/uL (0.0-0.7) Basophils # (Auto) 0.0 x10^3/uL (0.0-0.2) Sodium Level 135 mmol/L (136-145) Potassium Level 4.1 mmol/L (3.5-5.1) Chloride Level 100 mmol/L (98-107) Carbon Dioxide Level 22 mmol/L (21-32) Anion Gap 13 (6-14) Blood Urea Nitrogen 67 mg/dL (8-26) Creatinine 5.5 mg/dL (0.7-1.3) Estimated GFR (Cockcroft-Gault) 10.6 Glucose Level 227 mg/dL (70-99) Calcium Level 7.9 mg/dL (8.5-10.1) Glucose (Fingerstick) 243 mg/dL (70-99) 198 mg/dL (70-99) Review of Systems Review of Systems no fever, chills, sob or chest pain Assessment and Plan Assessmemt and Plan Problems Medical Problems: (1) Diabetic foot ulcer Status: Acute (2) Hyperglycemia Status: Acute (3) Sepsis Status: Acute Problems: Comment Review of Relevant I have reviewed the following items lauryn (where applicable) has been applied. Labs Laboratory Tests Test 01/02/17 17:19 01/02/17 20:20 01/03/17 04:40 01/03/17 08:15 Glucose (Fingerstick) 263 mg/dL (70-99) 263 mg/dL (70-99) 266 mg/dL (70-99) White Blood Count 13.1 x10^3/uL (4.0-11.0) Red Blood Count 2.64 x10^6/uL (4.30-5.70) Hemoglobin 8.3 g/dL (13.0-17.5) Hematocrit 24.4 % (39.0-53.0) Mean Corpuscular Volume 93 fL (79-100) Mean Corpuscular Hemoglobin 31 pg (25-35) Mean Corpuscular Hemoglobin Concent 34 g/dL (31-37) Red Cell Distribution Width 15.7 % (11.5-14.5) Platelet Count 117 x10^3/uL (140-400) Neutrophils (%) (Auto) 86 % (31-73) Lymphocytes (%) (Auto) 5 % (24-48) Monocytes (%) (Auto) 9 % (0-9) Eosinophils (%) (Auto) 0 % (0-3) Basophils (%) (Auto) 0 % (0-3) Neutrophils # (Auto) 11.2 x10^3uL (1.8-7.7) Lymphocytes # (Auto) 0.6 x10^3/uL (1.0-4.8) Monocytes # (Auto) 1.2 x10^3/uL (0.0-1.1) Eosinophils # (Auto) 0.0 x10^3/uL (0.0-0.7) Basophils # (Auto) 0.0 x10^3/uL (0.0-0.2) Sodium Level 135 mmol/L (136-145) Potassium Level 4.4 mmol/L (3.5-5.1) Chloride Level 101 mmol/L (98-107) Carbon Dioxide Level 19 mmol/L (21-32) Anion Gap 15 (6-14) Blood Urea Nitrogen 49 mg/dL (8-26) Creatinine 3.7 mg/dL (0.7-1.3) Estimated GFR (Cockcroft-Gault) 16.7 BUN/Creatinine Ratio 13 (6-20) Glucose Level 231 mg/dL (70-99) Calcium Level 7.8 mg/dL (8.5-10.1) Total Bilirubin 0.9 mg/dL (0.2-1.0) Aspartate Amino Transf (AST/SGOT) 26 U/L (15-37) Alanine Aminotransferase (ALT/SGPT) 26 U/L (16-63) Alkaline Phosphatase 91 U/L (46-116) C-Reactive Protein, Quantitative 408.0 mg/L (0-3.3) Total Protein 6.6 g/dL (6.4-8.2) Albumin 2.3 g/dL (3.4-5.0) Albumin/Globulin Ratio 0.5 (1.0-1.7) Test 01/03/17 09:44 01/03/17 11:07 01/03/17 11:30 01/03/17 11:50 Glucose (Fingerstick) 295 mg/dL (70-99) 346 mg/dL (70-99) O2 Saturation 88 % (92-99) Arterial Blood pH 7.29 (7.35-7.45) Arterial Blood pCO2 at Patient Temp 29 mmHg (35-46) Arterial Blood pO2 at Patient Temp 60 mmHg (65-108) Arterial Blood HCO3 13 mmol/L (21-28) Arterial Blood Base Excess -12 mmol/L (-3-3) FiO2 21 Vancomycin Level Trough 46.4 mcg/mL (10.0-20.0) Vancomycin Last Dose Date 01/03/17 Vancomycin Last Dose Time 0000 Test 01/03/17 15:07 01/03/17 17:07 01/03/17 19:00 01/03/17 21:39 Lactic Acid Level 1.1 mmol/L (0.4-2.0) Creatine Kinase 106 U/L (39-308) Creatine Kinase MB (Mass) 1.4 ng/mL (0.0-3.6) Creatine Kinase MB Relative Index 1.3 % (0-4) Troponin I Quantitative 0.240 ng/mL (0.000-0.055) Glucose (Fingerstick) 341 mg/dL (70-99) 262 mg/dL (70-99) Urine Collection Type Unknown Urine Color Riley Urine Clarity Turbid Urine pH 5.0 Urine Specific [place] >=1.030 Urine Protein 100 mg/dL (NEG-TRACE) Urine Glucose (UA) >=1000 mg/dL (NEG) Urine Ketones (Stick) Trace mg/dL (NEG) Urine Blood Negative (NEG) Urine Nitrite Negative (NEG) Urine Bilirubin Small (NEG) Urine Urobilinogen Dipstick 1.0 mg/dL (0.2 mg/dL) Urine Leukocyte Esterase Trace (NEG) Urine RBC 0 /HPF (0-2) Urine WBC Occ /HPF (0-4) Urine Amorphous Sediment Present /HPF Urine Bacteria 0 /HPF (0-FEW) Test 01/04/17 00:23 01/04/17 06:50 01/04/17 09:55 01/04/17 12:20 O2 Saturation 97 % (92-99) Arterial Blood pH 7.33 (7.35-7.45) Arterial Blood pCO2 at Patient Temp 36 mmHg (35-46) Arterial Blood pO2 at Patient Temp 108 mmHg (65-108) Arterial Blood HCO3 18 mmol/L (21-28) Arterial Blood Base Excess -7 mmol/L (-3-3) FiO2 40 White Blood Count 11.9 x10^3/uL (4.0-11.0) Red Blood Count 2.24 x10^6/uL (4.30-5.70) Hemoglobin 7.0 g/dL (13.0-17.5) Hematocrit 20.4 % (39.0-53.0) Mean Corpuscular Volume 91 fL (79-100) Mean Corpuscular Hemoglobin 31 pg (25-35) Mean Corpuscular Hemoglobin Concent 34 g/dL (31-37) Red Cell Distribution Width 15.3 % (11.5-14.5) Platelet Count 128 x10^3/uL (140-400) Neutrophils (%) (Auto) 86 % (31-73) Lymphocytes (%) (Auto) 6 % (24-48) Monocytes (%) (Auto) 8 % (0-9) Eosinophils (%) (Auto) 0 % (0-3) Basophils (%) (Auto) 0 % (0-3) Neutrophils # (Auto) 10.2 x10^3uL (1.8-7.7) Lymphocytes # (Auto) 0.7 x10^3/uL (1.0-4.8) Monocytes # (Auto) 1.0 x10^3/uL (0.0-1.1) Eosinophils # (Auto) 0.0 x10^3/uL (0.0-0.7) Basophils # (Auto) 0.0 x10^3/uL (0.0-0.2) Sodium Level 135 mmol/L (136-145) Potassium Level 4.1 mmol/L (3.5-5.1) Chloride Level 100 mmol/L (98-107) Carbon Dioxide Level 22 mmol/L (21-32) Anion Gap 13 (6-14) Blood Urea Nitrogen 67 mg/dL (8-26) Creatinine 5.5 mg/dL (0.7-1.3) Estimated GFR (Cockcroft-Gault) 10.6 Glucose Level 227 mg/dL (70-99) Calcium Level 7.9 mg/dL (8.5-10.1) Glucose (Fingerstick) 243 mg/dL (70-99) 198 mg/dL (70-99) Laboratory Tests Test 01/03/17 15:07 01/03/17 17:07 01/03/17 19:00 01/03/17 21:39 Lactic Acid Level 1.1 mmol/L (0.4-2.0) Creatine Kinase 106 U/L (39-308) Creatine Kinase MB (Mass) 1.4 ng/mL (0.0-3.6) Creatine Kinase MB Relative Index 1.3 % (0-4) Troponin I Quantitative 0.240 ng/mL (0.000-0.055) Glucose (Fingerstick) 341 mg/dL (70-99) 262 mg/dL (70-99) Urine Collection Type Unknown Urine Color Riley Urine Clarity Turbid Urine pH 5.0 Urine Specific [place] >=1.030 Urine Protein 100 mg/dL (NEG-TRACE) Urine Glucose (UA) >=1000 mg/dL (NEG) Urine Ketones (Stick) Trace mg/dL (NEG) Urine Blood Negative (NEG) Urine Nitrite Negative (NEG) Urine Bilirubin Small (NEG) Urine Urobilinogen Dipstick 1.0 mg/dL (0.2 mg/dL) Urine Leukocyte Esterase Trace (NEG) Urine RBC 0 /HPF (0-2) Urine WBC Occ /HPF (0-4) Urine Amorphous Sediment Present /HPF Urine Bacteria 0 /HPF (0-FEW) Test 01/04/17 00:23 01/04/17 06:50 01/04/17 09:55 01/04/17 12:20 O2 Saturation 97 % (92-99) Arterial Blood pH 7.33 (7.35-7.45) Arterial Blood pCO2 at Patient Temp 36 mmHg (35-46) Arterial Blood pO2 at Patient Temp 108 mmHg (65-108) Arterial Blood HCO3 18 mmol/L (21-28) Arterial Blood Base Excess -7 mmol/L (-3-3) FiO2 40 White Blood Count 11.9 x10^3/uL (4.0-11.0) Red Blood Count 2.24 x10^6/uL (4.30-5.70) Hemoglobin 7.0 g/dL (13.0-17.5) Hematocrit 20.4 % (39.0-53.0) Mean Corpuscular Volume 91 fL (79-100) Mean Corpuscular Hemoglobin 31 pg (25-35) Mean Corpuscular Hemoglobin Concent 34 g/dL (31-37) Red Cell Distribution Width 15.3 % (11.5-14.5) Platelet Count 128 x10^3/uL (140-400) Neutrophils (%) (Auto) 86 % (31-73) Lymphocytes (%) (Auto) 6 % (24-48) Monocytes (%) (Auto) 8 % (0-9) Eosinophils (%) (Auto) 0 % (0-3) Basophils (%) (Auto) 0 % (0-3) Neutrophils # (Auto) 10.2 x10^3uL (1.8-7.7) Lymphocytes # (Auto) 0.7 x10^3/uL (1.0-4.8) Monocytes # (Auto) 1.0 x10^3/uL (0.0-1.1) Eosinophils # (Auto) 0.0 x10^3/uL (0.0-0.7) Basophils # (Auto) 0.0 x10^3/uL (0.0-0.2) Sodium Level 135 mmol/L (136-145) Potassium Level 4.1 mmol/L (3.5-5.1) Chloride Level 100 mmol/L (98-107) Carbon Dioxide Level 22 mmol/L (21-32) Anion Gap 13 (6-14) Blood Urea Nitrogen 67 mg/dL (8-26) Creatinine 5.5 mg/dL (0.7-1.3) Estimated GFR (Cockcroft-Gault) 10.6 Glucose Level 227 mg/dL (70-99) Calcium Level 7.9 mg/dL (8.5-10.1) Glucose (Fingerstick) 243 mg/dL (70-99) 198 mg/dL (70-99) Microbiology 01/03/17 Blood Culture - Final, Complete 01/03/17 Urine Culture - Preliminary, Resulted 01/03/17 Urine Culture Result 1 (LIONEL) - Preliminary, Resulted Medications Current Medications Sodium Chloride 1,000 ml @ 1,000 mls/hr 1X ONCE IV Last administered on t 23:15; Start 01/01/17 at 23:00; Stop 01/01/17 at 23:59; Status DC Ampicillin Sodium/ Sulbactam Sodium 3 gm/Sodium Chloride 100 ml @ 200 mls/hr 1X ONCE IV Last administered on 01/01/17 23:43; Start 01/02/17 at 00:00; Stop 01/02/17 at 00:29; Status DC Vancomycin HCl (Vanco Per Pharmacy) 1 each PRN DAILY PRN MC SEE COMMENTS Last administered on 01/02/17 13:53; Start 01/01/17 at 23:30; Stop 01/03/17 at 12:11 ; Status DC Vancomycin HCl 2 gm/Sodium Chloride 500 ml @ 250 mls/hr 1X ONCE IV Last administered on 01/02/17 00:32; Start 01/02/17 at 00:00; Stop 01/02/17 at 01:59 ; Status DC Sodium Chloride 1,000 ml @ 2,000 mls/hr Q30M IV Last administered on 04:10; Start 01/02/17 at 00:00; Stop 01/02/17 at 02:15; Status DC Hydrocortisone Acetate (Anucort-Hc) 25 mg 1X ONCE MS Last administered on 01/01 23:43; Start 01/02/17 at 00:00; Stop 01/02/17 at 00:01; Status DC Hydromorphone HCl (Dilaudid) 1 mg 1X ONCE IV Last administered on 01/02/17 00 :35; Start 01/02/17 at 01:00; Stop 01/02/17 at 01:01; Status DC Ondansetron HCl (Zofran) 4 mg 1X ONCE IV Last administered on 01/02/17 00:35 ; Start 01/02/17 at 01:00; Stop 01/02/17 at 01:01; Status DC Hydromorphone HCl (Dilaudid) 2 mg STK-MED ONCE .ROUTE ; Start 01/02/17 at 00:33 ; Stop 01/02/17 at 00:34; Status DC Ondansetron HCl (Zofran) 4 mg PRN Q8HRS PRN IV NAUSEA/VOMITING; Start 01/02/17 at 01:15; Stop 01/03/17 at 01:14; Status DC Fentanyl Citrate (Fentanyl 2ml Vial) 50 mcg PRN Q2HR PRN IV SEVERE PAIN Last administered on 01/02/17 20:45; Start 01/02/17 at 01:15; Stop 01/03/17 at 01:14 ; Status DC Acetaminophen (Tylenol) 650 mg PRN Q4HRS PRN PO FEVER; Start 01/02/17 at 01:15 ; Stop 01/03/17 at 01:14; Status DC Vancomycin HCl 2 gm/Sodium Chloride 500 ml @ 250 mls/hr Q12H IV Last administered on 01/03/17 00:00; Start 01/02/17 at 12:00; Stop 01/03/17 at 12:11 ; Status DC Vancomycin HCl 1 each 1X ONCE MC Last administered on 01/03/17 11:30; Start 01/03/17 at 11:30; Stop 01/03/17 at 11:31; Status DC Atorvastatin Calcium (Lipitor) 20 mg QHS PO Last administered on 01/03/17 21: 40; Start 01/02/17 at 21:00 Celecoxib (CeleBREX) 200 mg BID PO Last administered on 01/02/17 09:51; Start 01/02/17 at 09:00; Stop 01/02/17 at 10:30; Status DC Vitamin D (Vitamin D3) 1,000 unit DAILY PO Last administered on 01/04/17 09:50 ; Start 01/02/17 at 09:00 Clopidogrel Bisulfate (Plavix) 75 mg DAILY PO Last administered on 01/04/17 12 :22; Start 01/02/17 at 09:00 Losartan Potassium (Cozaar) 50 mg DAILY PO Last administered on 01/03/17 10:41 ; Start 01/02/17 at 09:00; Stop 01/04/17 at 11:25; Status DC Metformin HCl (Glucophage) 500 mg BID PO Last administered on 01/03/17 10:42; Start 01/02/17 at 09:00; Stop 01/04/17 at 11:25; Status DC Tamsulosin HCl (Flomax) 0.4 mg HS PO Last administered on 01/03/17 21:39; Start 01/02/17 at 21:00 Citalopram Hydrobromide (CeleXA) 40 mg DAILY PO Last administered on 01/04/17 09:51; Start 01/02/17 at 09:00 Pantoprazole Sodium (Protonix) 40 mg DAILYAC PO Last administered on 01/04/17 09:51; Start 01/02/17 at 09:00 Gabapentin (Neurontin) 300 mg BID PO Last administered on 01/04/17 09:51; Start 01/02/17 at 09:00 Insulin Aspart (NovoLOG) 23 units TIDAC SQ Last administered on 01/04/17 12:25 ; Start 01/02/17 at 11:30 Insulin Aspart (NovoLOG) 0-9 UNITS QIDACHS SQ Last administered on 01/04/17 09 :56; Start 01/02/17 at 11:30 Dextrose (Dextrose 50%-Water Syringe) 12.5 gm PRN Q15MIN PRN IV SEE COMMENTS; Start 01/02/17 at 08:45 Sodium Chloride 1,000 ml @ 100 mls/hr 1X ONCE IV Last administered on 09:50; Start 01/02/17 at 08:45; Stop 01/02/17 at 18:44; Status DC Lidocaine (Lidoderm) 1 patch DAILY TD Last administered on 01/04/17 09:53; Start 01/02/17 at 09:00 Insulin Detemir (Levemir) 40 units DAILY08 SQ Last administered on 01/04/17 09 :57; Start 01/02/17 at 09:00 Enoxaparin Sodium (Lovenox Per Pharmacy Prophylaxis Dosing) 1 each PRN DAILY PRN MC SEE COMMENTS; Start 01/02/17 at 09:15 Enoxaparin Sodium (Lovenox 40mg Syringe) 40 mg Q12H SQ Last administered on 21:42; Start 01/02/17 at 10:00; Stop 01/04/17 at 10:18; Status DC Polysaccharide Iron Complex (Niferex 150) 150 mg BID PO Last administered on 09:51; Start 01/02/17 at 12:00 Bisacodyl (Dulcolax Tab) 10 mg DAILY PO Last administered on 01/04/17 09:50; Start 01/02/17 at 12:00 Senna/Docusate Sodium (Senna Plus) 2 tab PRN BID PRN PO CONSTIPATION Last administered on 01/03/17 10:42; Start 01/02/17 at 10:45 Senna/Docusate Sodium (Senna Plus) 1 tab BID PO Last administered on 01/04/17 09:51; Start 01/02/17 at 12:00 Piperacillin Sod/ Tazobactam Sod 3.375 gm/Sodium Chloride 50 ml @ 100 mls/hr Q6H IV Last administered on 01/03/17 10:40; Start 01/02/17 at 16:00; Stop at 12:11; Status DC Sodium Chloride 1,000 ml @ 100 mls/hr Q10H IV ; Start 01/03/17 at 10:45; Stop 01/04/17 at 00:59; Status DC Piperacillin Sod/ Tazobactam Sod 2.25 gm/Sodium Chloride 50 ml @ 100 mls/hr Q8HRS IV Last administered on 01/04/17 06:13; Start 01/03/17 at 14:00 Albuterol/ Ipratropium (Duoneb) 3 ml RTQID NEB Last administered on 01/04/17 12:28; Start 01/03/17 at 16:00 Sodium Chloride 1,000 ml @ 1,000 mls/hr 1X ONCE IV Last administered on 15:16; Start 01/03/17 at 15:15; Stop 01/03/17 at 16:14; Status DC Sodium Bicarbonate 75 meq/Sodium Chloride 1,075 ml @ 125 mls/hr Q8H36M IV Last administered on 01/04/17 09:52; Start 01/03/17 at 16:00 Sodium Bicarbonate 50 meq 1X ONCE IV Last administered on 01/03/17 16:08; Start 01/03/17 at 16:00; Stop 01/03/17 at 16:15; Status DC Sodium Bicarbonate 50 meq 1X ONCE IV Last administered on 01/03/17 16:09; Start 01/03/17 at 16:00; Stop 01/03/17 at 16:15; Status DC Sodium Bicarbonate 50 meq 1X ONCE IV Last administered on 01/03/17 16:09; Start 01/03/17 at 16:00; Stop 01/03/17 at 16:15; Status DC Sodium Chloride 500 ml @ 500 mls/hr PRN Q4HRS PRN IV HYPOTENSION; Start at 16:00 Acetaminophen (Acetaminophen Supp) 650 mg PRN Q6HRS PRN MS MILD PAIN / TEMP Last administered on 01/04/17 02:43; Start 01/04/17 at 02:00 Enoxaparin Sodium (Lovenox 40mg Syringe) 40 mg HS SQ ; Start 01/04/17 at 21:00 Lidocaine/Sodium Bicarbonate (Buffered Lidocaine 1%) 3 ml 1X ONCE IJ Last administered on 01/04/17 11:50; Start 01/04/17 at 11:30; Stop 01/04/17 at 11:31 ; Status DC Heparin Sodium/ Sodium Chloride 60 unit 1X ONCE IV Last administered on 11:50; Start 01/04/17 at 11:30; Stop 01/04/17 at 11:31; Status DC Heparin Sodium (Porcine) (Heparin Sodium) 2,500 unit 1X ONCE INT CAT Last administered on 01/04/17 11:51; Start 01/04/17 at 11:30; Stop 01/04/17 at 11:31 ; Status DC Heparin Sodium (Porcine) (Heparin Sodium) 10,000 unit STK-MED ONCE .ROUTE ; Start 01/04/17 at 11:22; Stop 01/04/17 at 11:23; Status DC Furosemide (Lasix) 40 mg [id number] IVP ; Start 01/04/17 at 11:30 Darbepoetin Robert (Aranesp) 60 mcg WEEKLYHS SQ ; Start 01/04/17 at 21:00 Sodium Chloride 1,000 ml @ 1,000 mls/hr Q1H PRN IV hypotension; Start 01/04/17 at 13:02; Stop 01/04/17 at 19:01 Diphenhydramine HCl (Benadryl) 25 mg 1X PRN PRN IV ITCHING; Start 01/04/17 at 13:15; Stop 01/05/17 at 13:14 Diphenhydramine HCl (Benadryl) 25 mg 1X PRN PRN IV ITCHING; Start 01/04/17 at 13:15; Stop 01/05/17 at 13:14 Info (PHARMACY MONITORING -- do not chart) 1 each PRN DAILY PRN MC SEE COMMENTS ; Start 01/04/17 at 13:15; Status UNV Info (PHARMACY MONITORING -- do not chart) 1 each PRN DAILY PRN MC SEE COMMENTS ; Start 01/04/17 at 13:15 Active Scripts Active Reported Humalog (Insulin Lispro) 100 Unit/1 Ml Cartridge 23 Unit SQ TIDAC Vitamin D3 (Cholecalciferol (Vitamin D3)) 1,000 Unit Tablet 1 Tab PO DAILY Nexium Capsule (Esomeprazole Magnesium) 40 Mg Capsule.dr 1 Cap PO DAILY Losartan Potassium 50 Mg Tablet 50 Mg PO DAILY Gabapentin 300 Mg Capsule 300 Mg PO BID Celebrex (Celecoxib) 200 Mg Capsule 200 Mg PO BID 30 Days Citalopram Hbr (Citalopram Hydrobromide) 40 Mg Tablet 40 Mg PO DAILY Lipitor (Atorvastatin Calcium) 20 Mg Tablet 20 Mg PO QHS Flomax (Tamsulosin Hcl) 0.4 Mg Cap.er.24h 0.4 Mg PO HS Metformin Hcl 500 Mg Tablet 500 Mg PO BID Plavix (Clopidogrel Bisulfate) 75 Mg Tablet 75 Mg PO DAILY Vitals/I & O Vital Sign - Last 24 Hours 01/03/17 01/03/17 01/03/17 01/03/17 14:45 15:00 15:03 15:33 Temp 99.9 99.9 Pulse 95 92 Resp 16 21 B/P (MAP) 87/56 (66) 75/46 (56) Pulse Ox 99 100 100 O2 Delivery BiPAP/CPAP 01/03/17 01/03/17 01/03/17 01/03/17 16:00 16:00 17:00 17:27 Pulse 92 92 Resp 21 21 B/P (MAP) 75/46 (56) 101/66 (78) Pulse Ox 99 99 100 O2 Delivery BiPAP/CPAP Bi-pap BiPAP/CPAP 01/03/17 01/03/17 01/03/17 01/03/17 18:00 19:00 20:00 20:00 Temp 99.1 99.1 Pulse 94 96 98 Resp 21 20 20 B/P (MAP) 108/66 (80) 111/69 (83) 99/61 (74) Pulse Ox 99 96 96 O2 Delivery BiPAP/CPAP Nasal Cannula Nasal Cannula Nasal Cannula O2 Flow Rate 2.0 2.0 2.0 01/03/17 01/03/17 01/03/17 01/03/17 20:53 21:00 22:00 23:00 Pulse 99 90 100 Resp 20 20 20 B/P (MAP) 96/61 (73) 104/67 (79) 93/53 (66) Pulse Ox 94 94 100 100 O2 Delivery Nasal Cannula Nasal Cannula BiPAP/CPAP BiPAP/CPAP O2 Flow Rate 3.0 2.0 01/04/17 01/04/17 01/04/17 01/04/17 00:00 00:00 00:07 01:00 Temp 99.2 99.2 Pulse 95 88 Resp 20 22 B/P (MAP) 106/59 (75) 90/55 (67) Pulse Ox 100 97 99 O2 Delivery BiPAP/CPAP Bi-pap BiPAP/CPAP 01/04/17 01/04/17 01/04/17 01/04/17 02:00 03:00 03:06 04:00 Temp 100.0 99.1 100.0 99.1 Pulse 94 95 94 Resp 22 20 20 B/P (MAP) 101/62 (75) 97/60 (72) 101/61 (74) Pulse Ox 99 98 98 99 O2 Delivery BiPAP/CPAP BiPAP/CPAP BiPAP/CPAP 01/04/17 01/04/17 01/04/17 01/04/17 04:00 05:00 05:29 06:00 Temp 99.1 99.1 Pulse 94 94 Resp 20 20 B/P (MAP) 100/63 (75) 117/67 (84) Pulse Ox 99 97 99 O2 Delivery Bi-pap BiPAP/CPAP BiPAP/CPAP 01/04/17 01/04/17 01/04/17 01/04/17 07:00 08:00 08:00 08:23 Temp 99.7 99.7 Pulse 92 91 Resp 16 20 B/P (MAP) 106/72 (83) 106/75 (85) Pulse Ox 98 100 93 O2 Delivery BiPAP/CPAP Bi-pap BiPAP/CPAP Nasal Cannula O2 Flow Rate 3.0 01/04/17 01/04/17 01/04/17 01/04/17 09:00 10:00 11:00 12:00 Temp 99.4 99.4 Pulse 97 97 98 98 Resp 17 18 20 24 B/P (MAP) 125/70 (88) 104/58 (73) 104/58 (73) 94/64 (74) Pulse Ox 93 95 96 97 O2 Delivery Nasal Cannula Nasal Cannula Nasal Cannula Nasal Cannula O2 Flow Rate 3.0 3.0 3.0 3.0 01/04/17 01/04/17 01/04/17 12:00 12:28 13:00 Pulse 97 Resp 20 B/P (MAP) 104/64 (77) Pulse Ox 95 96 O2 Delivery Nasal Cannula Nasal Cannula Nasal Cannula O2 Flow Rate 3.0 3.0 3.0 Intake and Output 01/03/17 01/03/17 01/04/17 15:00 23:00 07:00 Intake Total 50 ml 3925 ml Output Total 220 ml 40 ml Balance -170 ml 3885 ml Nutrition Consultation Dietary Evaluation: Recommendations by RD: Increase Calorie Intake Comments: Rec. resume the ada diet as medically appropriate rec. 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
--- NOTE | 2017-01-04 13:47 | RAD ---
Procedure: Temporary hemodialysis catheter placement under fluoroscopy 01/04/2017 Clinical Indication: Renal failure Sterility: All elements of maximal sterile barrier technique including the use of a cap, mask, sterile gown, sterile gloves, large sterile sheet, appropriate hand hygiene, and 2% chlorhexidine for cutaneous antisepsis (or acceptable alternative antiseptic per current guidelines) were followed for this procedure. Consent: The procedure was explained in its entirety to the patient or the patients designated inside technical sales representative by a member of the treatment team, including a discussion of the risks, benefits and commonly accepted alternatives to the procedure, as well as the expected consequences of no therapy whatsoever. Discussion of the risks included, but was not limited to, those that are most frequent and those that are rare but possibly severe or life-threatening, as well as the possibility of unforeseen complications. Technique and Findings: Following informed consent, the patient was prepped and draped in the usual sterile fashion. A timeout procedure was performed. Ultrasound interrogation of the right neck revealed patency and compressibility of the right internal jugular vein. A 21-gauge micropuncture needle was used to gain access to this vein after 1% Lidocaine was used to achieve local anesthesia. A hardcopy ultrasound image was recorded. The needle was exchanged over a wire for serial dilators followed by a 19 cm temporary hemodialysis catheter which was deployed under fluoroscopic guidance such that the distal tip resided in the mid right atrium. The catheter flow rates were assessed manually and found to be excellent. The catheter was then flushed, packed with Heparin, capped, and sutured to the skin. No immediate complications were identified Impression: Successful ultrasound-guided placement of a right internal jugular temporary hemodialysis catheter
[2017-01-04] MEDS: HEPARIN PF for SUB-Q USE 5,000 UNIT/0.5 ML VIAL. SQ SCH ×2 (14:55→21:54)
--- NOTE | 2017-01-04 17:32 | PDOC ---
PROGRESS NOTES Subjective Subjective He continues with low back and right heel pain. 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 He is being considered for hemodialysis. Assessment Assessment Problems Medical Problems: (1) Diabetic foot ulcer Status: Acute (2) Hyperglycemia Status: Acute (3) Sepsis Status: Acute Plan Plan of Care To resume physical and occupational therapy when medically stable and to consider cam boot to left ankle. Comment Review of Relevant I have reviewed the following items lauryn (where applicable) has been applied. Labs Laboratory Tests Test 01/02/17 20:20 01/03/17 04:40 01/03/17 08:15 01/03/17 09:44 Glucose (Fingerstick) 263 mg/dL (70-99) 266 mg/dL (70-99) 295 mg/dL (70-99) White Blood Count 13.1 x10^3/uL (4.0-11.0) Red Blood Count 2.64 x10^6/uL (4.30-5.70) Hemoglobin 8.3 g/dL (13.0-17.5) Hematocrit 24.4 % (39.0-53.0) Mean Corpuscular Volume 93 fL (79-100) Mean Corpuscular Hemoglobin 31 pg (25-35) Mean Corpuscular Hemoglobin Concent 34 g/dL (31-37) Red Cell Distribution Width 15.7 % (11.5-14.5) Platelet Count 117 x10^3/uL (140-400) Neutrophils (%) (Auto) 86 % (31-73) Lymphocytes (%) (Auto) 5 % (24-48) Monocytes (%) (Auto) 9 % (0-9) Eosinophils (%) (Auto) 0 % (0-3) Basophils (%) (Auto) 0 % (0-3) Neutrophils # (Auto) 11.2 x10^3uL (1.8-7.7) Lymphocytes # (Auto) 0.6 x10^3/uL (1.0-4.8) Monocytes # (Auto) 1.2 x10^3/uL (0.0-1.1) Eosinophils # (Auto) 0.0 x10^3/uL (0.0-0.7) Basophils # (Auto) 0.0 x10^3/uL (0.0-0.2) Sodium Level 135 mmol/L (136-145) Potassium Level 4.4 mmol/L (3.5-5.1) Chloride Level 101 mmol/L (98-107) Carbon Dioxide Level 19 mmol/L (21-32) Anion Gap 15 (6-14) Blood Urea Nitrogen 49 mg/dL (8-26) Creatinine 3.7 mg/dL (0.7-1.3) Estimated GFR (Cockcroft-Gault) 16.7 BUN/Creatinine Ratio 13 (6-20) Glucose Level 231 mg/dL (70-99) Calcium Level 7.8 mg/dL (8.5-10.1) Total Bilirubin 0.9 mg/dL (0.2-1.0) Aspartate Amino Transf (AST/SGOT) 26 U/L (15-37) Alanine Aminotransferase (ALT/SGPT) 26 U/L (16-63) Alkaline Phosphatase 91 U/L (46-116) C-Reactive Protein, Quantitative 408.0 mg/L (0-3.3) Total Protein 6.6 g/dL (6.4-8.2) Albumin 2.3 g/dL (3.4-5.0) Albumin/Globulin Ratio 0.5 (1.0-1.7) Test 01/03/17 11:07 01/03/17 11:30 01/03/17 11:50 01/03/17 15:07 O2 Saturation 88 % (92-99) Arterial Blood pH 7.29 (7.35-7.45) Arterial Blood pCO2 at Patient Temp 29 mmHg (35-46) Arterial Blood pO2 at Patient Temp 60 mmHg (65-108) Arterial Blood HCO3 13 mmol/L (21-28) Arterial Blood Base Excess -12 mmol/L (-3-3) FiO2 21 Vancomycin Level Trough 46.4 mcg/mL (10.0-20.0) Vancomycin Last Dose Date 01/03/17 Vancomycin Last Dose Time 0000 Glucose (Fingerstick) 346 mg/dL (70-99) Lactic Acid Level 1.1 mmol/L (0.4-2.0) Creatine Kinase 106 U/L (39-308) Creatine Kinase MB (Mass) 1.4 ng/mL (0.0-3.6) Creatine Kinase MB Relative Index 1.3 % (0-4) Troponin I Quantitative 0.240 ng/mL (0.000-0.055) Test 01/03/17 17:07 01/03/17 18:55 01/03/17 19:00 01/03/17 21:39 Glucose (Fingerstick) 341 mg/dL (70-99) 262 mg/dL (70-99) Nasal Screen MRSA (PCR) Negative (Negative) Urine Collection Type Unknown Urine Color Idamay Urine Clarity Turbid Urine pH 5.0 Urine Specific [place] >=1.030 Urine Protein 100 mg/dL (NEG-TRACE) Urine Glucose (UA) >=1000 mg/dL (NEG) Urine Ketones (Stick) Trace mg/dL (NEG) Urine Blood Negative (NEG) Urine Nitrite Negative (NEG) Urine Bilirubin Small (NEG) Urine Urobilinogen Dipstick 1.0 mg/dL (0.2 mg/dL) Urine Leukocyte Esterase Trace (NEG) Urine RBC 0 /HPF (0-2) Urine WBC Occ /HPF (0-4) Urine Amorphous Sediment Present /HPF Urine Bacteria 0 /HPF (0-FEW) Test 01/04/17 00:23 01/04/17 06:50 01/04/17 09:55 01/04/17 12:20 O2 Saturation 97 % (92-99) Arterial Blood pH 7.33 (7.35-7.45) Arterial Blood pCO2 at Patient Temp 36 mmHg (35-46) Arterial Blood pO2 at Patient Temp 108 mmHg (65-108) Arterial Blood HCO3 18 mmol/L (21-28) Arterial Blood Base Excess -7 mmol/L (-3-3) FiO2 40 White Blood Count 11.9 x10^3/uL (4.0-11.0) Red Blood Count 2.24 x10^6/uL (4.30-5.70) Hemoglobin 7.0 g/dL (13.0-17.5) Hematocrit 20.4 % (39.0-53.0) Mean Corpuscular Volume 91 fL (79-100) Mean Corpuscular Hemoglobin 31 pg (25-35) Mean Corpuscular Hemoglobin Concent 34 g/dL (31-37) Red Cell Distribution Width 15.3 % (11.5-14.5) Platelet Count 128 x10^3/uL (140-400) Neutrophils (%) (Auto) 86 % (31-73) Lymphocytes (%) (Auto) 6 % (24-48) Monocytes (%) (Auto) 8 % (0-9) Eosinophils (%) (Auto) 0 % (0-3) Basophils (%) (Auto) 0 % (0-3) Neutrophils # (Auto) 10.2 x10^3uL (1.8-7.7) Lymphocytes # (Auto) 0.7 x10^3/uL (1.0-4.8) Monocytes # (Auto) 1.0 x10^3/uL (0.0-1.1) Eosinophils # (Auto) 0.0 x10^3/uL (0.0-0.7) Basophils # (Auto) 0.0 x10^3/uL (0.0-0.2) Sodium Level 135 mmol/L (136-145) Potassium Level 4.1 mmol/L (3.5-5.1) Chloride Level 100 mmol/L (98-107) Carbon Dioxide Level 22 mmol/L (21-32) Anion Gap 13 (6-14) Blood Urea Nitrogen 67 mg/dL (8-26) Creatinine 5.5 mg/dL (0.7-1.3) Estimated GFR (Cockcroft-Gault) 10.6 Glucose Level 227 mg/dL (70-99) Calcium Level 7.9 mg/dL (8.5-10.1) Glucose (Fingerstick) 243 mg/dL (70-99) 198 mg/dL (70-99) Test 01/04/17 17:12 Glucose (Fingerstick) 117 mg/dL (70-99) Laboratory Tests Test 01/03/17 18:55 01/03/17 19:00 01/03/17 21:39 01/04/17 00:23 Nasal Screen MRSA (PCR) Negative (Negative) Urine Collection Type Unknown Urine Color Idamay Urine Clarity Turbid Urine pH 5.0 Urine Specific [place] >=1.030 Urine Protein 100 mg/dL (NEG-TRACE) Urine Glucose (UA) >=1000 mg/dL (NEG) Urine Ketones (Stick) Trace mg/dL (NEG) Urine Blood Negative (NEG) Urine Nitrite Negative (NEG) Urine Bilirubin Small (NEG) Urine Urobilinogen Dipstick 1.0 mg/dL (0.2 mg/dL) Urine Leukocyte Esterase Trace (NEG) Urine RBC 0 /HPF (0-2) Urine WBC Occ /HPF (0-4) Urine Amorphous Sediment Present /HPF Urine Bacteria 0 /HPF (0-FEW) Glucose (Fingerstick) 262 mg/dL (70-99) O2 Saturation 97 % (92-99) Arterial Blood pH 7.33 (7.35-7.45) Arterial Blood pCO2 at Patient Temp 36 mmHg (35-46) Arterial Blood pO2 at Patient Temp 108 mmHg (65-108) Arterial Blood HCO3 18 mmol/L (21-28) Arterial Blood Base Excess -7 mmol/L (-3-3) FiO2 40 Test 01/04/17 06:50 01/04/17 09:55 01/04/17 12:20 01/04/17 17:12 White Blood Count 11.9 x10^3/uL (4.0-11.0) Red Blood Count 2.24 x10^6/uL (4.30-5.70) Hemoglobin 7.0 g/dL (13.0-17.5) Hematocrit 20.4 % (39.0-53.0) Mean Corpuscular Volume 91 fL (79-100) Mean Corpuscular Hemoglobin 31 pg (25-35) Mean Corpuscular Hemoglobin Concent 34 g/dL (31-37) Red Cell Distribution Width 15.3 % (11.5-14.5) Platelet Count 128 x10^3/uL (140-400) Neutrophils (%) (Auto) 86 % (31-73) Lymphocytes (%) (Auto) 6 % (24-48) Monocytes (%) (Auto) 8 % (0-9) Eosinophils (%) (Auto) 0 % (0-3) Basophils (%) (Auto) 0 % (0-3) Neutrophils # (Auto) 10.2 x10^3uL (1.8-7.7) Lymphocytes # (Auto) 0.7 x10^3/uL (1.0-4.8) Monocytes # (Auto) 1.0 x10^3/uL (0.0-1.1) Eosinophils # (Auto) 0.0 x10^3/uL (0.0-0.7) Basophils # (Auto) 0.0 x10^3/uL (0.0-0.2) Sodium Level 135 mmol/L (136-145) Potassium Level 4.1 mmol/L (3.5-5.1) Chloride Level 100 mmol/L (98-107) Carbon Dioxide Level 22 mmol/L (21-32) Anion Gap 13 (6-14) Blood Urea Nitrogen 67 mg/dL (8-26) Creatinine 5.5 mg/dL (0.7-1.3) Estimated GFR (Cockcroft-Gault) 10.6 Glucose Level 227 mg/dL (70-99) Calcium Level 7.9 mg/dL (8.5-10.1) Glucose (Fingerstick) 243 mg/dL (70-99) 198 mg/dL (70-99) 117 mg/dL (70-99) Microbiology 01/03/17 Blood Culture - Final, Complete 01/03/17 Urine Culture - Preliminary, Resulted 01/03/17 Urine Culture Result 1 (LIONEL) - Preliminary, Resulted Medications Current Medications Sodium Chloride 1,000 ml @ 1,000 mls/hr 1X ONCE IV Last administered on 23:15; Start 01/01/17 at 23:00; Stop 01/01/17 at 23:59; Status DC Ampicillin Sodium/ Sulbactam Sodium 3 gm/Sodium Chloride 100 ml @ 200 mls/hr 1X ONCE IV Last administered on 01/01/17 23:43; Start 01/02/17 at 00:00; Stop 01/02/17 at 00:29; Status DC Vancomycin HCl (Vanco Per Pharmacy) 1 each PRN DAILY PRN MC SEE COMMENTS Last administered on 01/02/17 13:53; Start 01/01/17 at 23:30; Stop 01/03/17 at 12:11 ; Status DC Vancomycin HCl 2 gm/Sodium Chloride 500 ml @ 250 mls/hr 1X ONCE IV Last administered on 01/02/17 00:32; Start 01/02/17 at 00:00; Stop 01/02/17 at 01:59 ; Status DC Sodium Chloride 1,000 ml @ 2,000 mls/hr Q30M IV Last administered on 04:10; Start 01/02/17 at 00:00; Stop 01/02/17 at 02:15; Status DC Hydrocortisone Acetate (Anucort-Hc) 25 mg 1X ONCE OR Last administered on 01/01 23:43; Start 01/02/17 at 00:00; Stop 01/02/17 at 00:01; Status DC Hydromorphone HCl (Dilaudid) 1 mg 1X ONCE IV Last administered on 01/02/17 00 :35; Start 01/02/17 at 01:00; Stop 01/02/17 at 01:01; Status DC Ondansetron HCl (Zofran) 4 mg 1X ONCE IV Last administered on 01/02/17 00:35 ; Start 01/02/17 at 01:00; Stop 01/02/17 at 01:01; Status DC Hydromorphone HCl (Dilaudid) 2 mg STK-MED ONCE .ROUTE ; Start 01/02/17 at 00:33 ; Stop 01/02/17 at 00:34; Status DC Ondansetron HCl (Zofran) 4 mg PRN Q8HRS PRN IV NAUSEA/VOMITING; Start 01/02/17 at 01:15; Stop 01/03/17 at 01:14; Status DC Fentanyl Citrate (Fentanyl 2ml Vial) 50 mcg PRN Q2HR PRN IV SEVERE PAIN Last administered on 01/02/17 20:45; Start 01/02/17 at 01:15; Stop 01/03/17 at 01:14 ; Status DC Acetaminophen (Tylenol) 650 mg PRN Q4HRS PRN PO FEVER; Start 01/02/17 at 01:15 ; Stop 01/03/17 at 01:14; Status DC Vancomycin HCl 2 gm/Sodium Chloride 500 ml @ 250 mls/hr Q12H IV Last administered on 01/03/17 00:00; Start 01/02/17 at 12:00; Stop 01/03/17 at 12:11 ; Status DC Vancomycin HCl 1 each 1X ONCE MC Last administered on 01/03/17 11:30; Start 01/03/17 at 11:30; Stop 01/03/17 at 11:31; Status DC Atorvastatin Calcium (Lipitor) 20 mg QHS PO Last administered on 01/03/17 21: 40; Start 01/02/17 at 21:00 Celecoxib (CeleBREX) 200 mg BID PO Last administered on 01/02/17 09:51; Start 01/02/17 at 09:00; Stop 01/02/17 at 10:30; Status DC Vitamin D (Vitamin D3) 1,000 unit DAILY PO Last administered on 01/04/17 09:50 ; Start 01/02/17 at 09:00 Clopidogrel Bisulfate (Plavix) 75 mg DAILY PO Last administered on 01/04/17 12 :22; Start 01/02/17 at 09:00 Losartan Potassium (Cozaar) 50 mg DAILY PO Last administered on 01/03/17 10:41 ; Start 01/02/17 at 09:00; Stop 01/04/17 at 11:25; Status DC Metformin HCl (Glucophage) 500 mg BID PO Last administered on 01/03/17 10:42; Start 01/02/17 at 09:00; Stop 01/04/17 at 11:25; Status DC Tamsulosin HCl (Flomax) 0.4 mg HS PO Last administered on 01/03/17 21:39; Start 01/02/17 at 21:00 Citalopram Hydrobromide (CeleXA) 40 mg DAILY PO Last administered on 01/04/17 09:51; Start 01/02/17 at 09:00 Pantoprazole Sodium (Protonix) 40 mg DAILYAC PO Last administered on 01/04/17 09:51; Start 01/02/17 at 09:00 Gabapentin (Neurontin) 300 mg BID PO Last administered on 01/04/17 09:51; Start 01/02/17 at 09:00 Insulin Aspart (NovoLOG) 23 units TIDAC SQ Last administered on 01/04/17 12:25 ; Start 01/02/17 at 11:30 Insulin Aspart (NovoLOG) 0-9 UNITS QIDACHS SQ Last administered on 01/04/17 09 :56; Start 01/02/17 at 11:30 Dextrose (Dextrose 50%-Water Syringe) 12.5 gm PRN Q15MIN PRN IV SEE COMMENTS; Start 01/02/17 at 08:45 Sodium Chloride 1,000 ml @ 100 mls/hr 1X ONCE IV Last administered on 09:50; Start 01/02/17 at 08:45; Stop 01/02/17 at 18:44; Status DC Lidocaine (Lidoderm) 1 patch DAILY TD Last administered on 01/04/17 09:53; Start 01/02/17 at 09:00 Insulin Detemir (Levemir) 40 units DAILY08 SQ Last administered on 01/04/17 09 :57; Start 01/02/17 at 09:00; Stop 01/04/17 at 13:39; Status DC Enoxaparin Sodium (Lovenox Per Pharmacy Prophylaxis Dosing) 1 each PRN DAILY PRN MC SEE COMMENTS; Start 01/02/17 at 09:15; Status Cancel Enoxaparin Sodium (Lovenox 40mg Syringe) 40 mg Q12H SQ Last administered on 21:42; Start 01/02/17 at 10:00; Stop 01/04/17 at 10:18; Status DC Polysaccharide Iron Complex (Niferex 150) 150 mg BID PO Last administered on 09:51; Start 01/02/17 at 12:00 Bisacodyl (Dulcolax Tab) 10 mg DAILY PO Last administered on 01/04/17 09:50; Start 01/02/17 at 12:00 Senna/Docusate Sodium (Senna Plus) 2 tab PRN BID PRN PO CONSTIPATION Last administered on 01/03/17 10:42; Start 01/02/17 at 10:45 Senna/Docusate Sodium (Senna Plus) 1 tab BID PO Last administered on 01/04/17 09:51; Start 01/02/17 at 12:00 Piperacillin Sod/ Tazobactam Sod 3.375 gm/Sodium Chloride 50 ml @ 100 mls/hr Q6H IV Last administered on 01/03/17 10:40; Start 01/02/17 at 16:00; Stop at 12:11; Status DC Sodium Chloride 1,000 ml @ 100 mls/hr Q10H IV ; Start 01/03/17 at 10:45; Stop 01/04/17 at 00:59; Status DC Piperacillin Sod/ Tazobactam Sod 2.25 gm/Sodium Chloride 50 ml @ 100 mls/hr Q8HRS IV Last administered on 01/04/17 06:13; Start 01/03/17 at 14:00 Albuterol/ Ipratropium (Duoneb) 3 ml RTQID NEB Last administered on 01/04/17 16:21; Start 01/03/17 at 16:00 Sodium Chloride 1,000 ml @ 1,000 mls/hr 1X ONCE IV Last administered on 15:16; Start 01/03/17 at 15:15; Stop 01/03/17 at 16:14; Status DC Sodium Bicarbonate 75 meq/Sodium Chloride 1,075 ml @ 75 mls/hr [id number] IV Last administered on 01/04/17 09:52; Start 01/03/17 at 16:00 Sodium Bicarbonate 50 meq 1X ONCE IV Last administered on 01/03/17 16:08; Start 01/03/17 at 16:00; Stop 01/03/17 at 16:15; Status DC Sodium Bicarbonate 50 meq 1X ONCE IV Last administered on 01/03/17 16:09; Start 01/03/17 at 16:00; Stop 01/03/17 at 16:15; Status DC Sodium Bicarbonate 50 meq 1X ONCE IV Last administered on 01/03/17 16:09; Start 01/03/17 at 16:00; Stop 01/03/17 at 16:15; Status DC Sodium Chloride 500 ml @ 500 mls/hr PRN Q4HRS PRN IV HYPOTENSION; Start at 16:00 Acetaminophen (Acetaminophen Supp) 650 mg PRN Q6HRS PRN OR MILD PAIN / TEMP Last administered on 01/04/17 02:43; Start 01/04/17 at 02:00 Enoxaparin Sodium (Lovenox 40mg Syringe) 40 mg HS SQ ; Start 01/04/17 at 21:00; Stop 01/04/17 at 21:00; Status DC Lidocaine/Sodium Bicarbonate (Buffered Lidocaine 1%) 3 ml 1X ONCE IJ Last administered on 01/04/17 11:50; Start 01/04/17 at 11:30; Stop 01/04/17 at 11:31 ; Status DC Heparin Sodium/ Sodium Chloride 60 unit 1X ONCE IV Last administered on 11:50; Start 01/04/17 at 11:30; Stop 01/04/17 at 11:31; Status DC Heparin Sodium (Porcine) (Heparin Sodium) 2,500 unit 1X ONCE INT CAT Last administered on 01/04/17 11:51; Start 01/04/17 at 11:30; Stop 01/04/17 at 11:31 ; Status DC Heparin Sodium (Porcine) (Heparin Sodium) 10,000 unit STK-MED ONCE .ROUTE ; Start 01/04/17 at 11:22; Stop 01/04/17 at 11:23; Status DC Furosemide (Lasix) 40 mg BID92 IVP ; Start 01/04/17 at 11:30; Stop 01/04/17 at 14:58; Status DC Darbepoetin Robert (Aranesp) 60 mcg WEEKLYHS SQ ; Start 01/04/17 at 21:00 Sodium Chloride 1,000 ml @ 1,000 mls/hr Q1H PRN IV hypotension; Start 01/04/17 at 13:02; Stop 01/04/17 at 19:01 Diphenhydramine HCl (Benadryl) 25 mg 1X PRN PRN IV ITCHING; Start 01/04/17 at 13:15; Stop 01/05/17 at 13:14 Diphenhydramine HCl (Benadryl) 25 mg 1X PRN PRN IV ITCHING; Start 01/04/17 at 13:15; Stop 01/05/17 at 13:14 Info (PHARMACY MONITORING -- do not chart) 1 each PRN DAILY PRN MC SEE COMMENTS ; Start 01/04/17 at 13:15; Status UNV Info (PHARMACY MONITORING -- do not chart) 1 each PRN DAILY PRN MC SEE COMMENTS ; Start 01/04/17 at 13:15 Insulin Detemir (Levemir) 45 units DAILY08 SQ ; Start 01/04/17 at 14:00 Heparin Sodium (Porcine) (Heparin Sq) 5,000 unit Q8HRS SQ Last administered on 7/24/17at 14:55; Start 01/04/17 at 14:00 Ondansetron HCl (Zofran) 4 mg PRN Q6HRS PRN IV NAUSEA/VOMITING; Start 01/05/17 at 07:00; Stop 01/06/17 at 06:59 Fentanyl Citrate (Fentanyl 2ml Vial) 25 mcg PRN Q5MIN PRN IV MILD PAIN; Start 01/05/17 at 07:00; Stop 01/06/17 at 06:59 Fentanyl Citrate (Fentanyl 2ml Vial) 50 mcg PRN Q5MIN PRN IV MODERATE PAIN; Start 01/05/17 at 07:00; Stop 01/06/17 at 06:59 Ringer's Solution 1,000 ml @ 30 mls/hr Q24H IV ; Start 01/05/17 at 07:00; Stop 01/05/17 at 18:59 Lidocaine HCl 2 ml PRN 1X PRN ID PRIOR TO IV START; Start 01/05/17 at 07:00; Stop 01/06/17 at 06:59 Prochlorperazine Edisylate (Compazine) 5 mg PACU PRN PRN IV NAUSEA, MRX1; Start 01/05/17 at 07:00; Stop 01/06/17 at 06:59 Furosemide (Lasix) 40 mg BID92 IVP ; Start 01/04/17 at 21:00 Active Scripts Active Reported Humalog (Insulin Lispro) 100 Unit/1 Ml Cartridge 23 Unit SQ TIDAC Vitamin D3 (Cholecalciferol (Vitamin D3)) 1,000 Unit Tablet 1 Tab PO DAILY Nexium Capsule (Esomeprazole Magnesium) 40 Mg Capsule.dr 1 Cap PO DAILY Losartan Potassium 50 Mg Tablet 50 Mg PO DAILY Gabapentin 300 Mg Capsule 300 Mg PO BID Celebrex (Celecoxib) 200 Mg Capsule 200 Mg PO BID 30 Days Citalopram Hbr (Citalopram Hydrobromide) 40 Mg Tablet 40 Mg PO DAILY Lipitor (Atorvastatin Calcium) 20 Mg Tablet 20 Mg PO QHS Flomax (Tamsulosin Hcl) 0.4 Mg Cap.er.24h 0.4 Mg PO HS Metformin Hcl 500 Mg Tablet 500 Mg PO BID Plavix (Clopidogrel Bisulfate) 75 Mg Tablet 75 Mg PO DAILY Vitals/I & O Vital Sign - Last 24 Hours 01/03/17 01/03/17 01/03/17 01/03/17 18:00 19:00 20:00 20:00 Temp 99.1 99.1 Pulse 94 96 98 Resp 21 20 20 B/P (MAP) 108/66 (80) 111/69 (83) 99/61 (74) Pulse Ox 99 96 96 O2 Delivery BiPAP/CPAP Nasal Cannula Nasal Cannula Nasal Cannula O2 Flow Rate 2.0 2.0 2.0 01/03/17 01/03/17 01/03/17 01/03/17 20:53 21:00 22:00 23:00 Pulse 99 90 100 Resp 20 20 20 B/P (MAP) 96/61 (73) 104/67 (79) 93/53 (66) Pulse Ox 94 94 100 100 O2 Delivery Nasal Cannula Nasal Cannula BiPAP/CPAP BiPAP/CPAP O2 Flow Rate 3.0 2.0 01/04/17 01/04/17 01/04/17 01/04/17 00:00 00:00 00:07 01:00 Temp 99.2 99.2 Pulse 95 88 Resp 20 22 B/P (MAP) 106/59 (75) 90/55 (67) Pulse Ox 100 97 99 O2 Delivery BiPAP/CPAP Bi-pap BiPAP/CPAP 01/04/17 01/04/17 01/04/17 01/04/17 02:00 03:00 03:06 04:00 Temp 100.0 99.1 100.0 99.1 Pulse 94 95 94 Resp 22 20 20 B/P (MAP) 101/62 (75) 97/60 (72) 101/61 (74) Pulse Ox 99 98 98 99 O2 Delivery BiPAP/CPAP BiPAP/CPAP BiPAP/CPAP 01/04/17 01/04/17 01/04/17 01/04/17 04:00 05:00 05:29 06:00 Temp 99.1 99.1 Pulse 94 94 Resp 20 20 B/P (MAP) 100/63 (75) 117/67 (84) Pulse Ox 99 97 99 O2 Delivery Bi-pap BiPAP/CPAP BiPAP/CPAP 01/04/17 01/04/17 01/04/17 01/04/17 07:00 08:00 08:00 08:23 Temp 99.7 99.7 Pulse 92 91 Resp 16 20 B/P (MAP) 106/72 (83) 106/75 (85) Pulse Ox 98 100 93 O2 Delivery BiPAP/CPAP Bi-pap BiPAP/CPAP Nasal Cannula O2 Flow Rate 3.0 01/04/17 01/04/17 01/04/17 01/04/17 09:00 10:00 11:00 12:00 Temp 99.4 99.4 Pulse 97 97 98 98 Resp 17 18 20 24 B/P (MAP) 125/70 (88) 104/58 (73) 104/58 (73) 94/64 (74) Pulse Ox 93 95 96 97 O2 Delivery Nasal Cannula Nasal Cannula Nasal Cannula Nasal Cannula O2 Flow Rate 3.0 3.0 3.0 3.0 01/04/17 01/04/17 01/04/17 01/04/17 12:00 12:28 13:00 14:00 Pulse 97 93 Resp 20 21 B/P (MAP) 104/64 (77) 116/63 (80) Pulse Ox 95 96 95 O2 Delivery Nasal Cannula Nasal Cannula Nasal Cannula Nasal Cannula O2 Flow Rate 3.0 3.0 3.0 3.0 01/04/17 01/04/17 01/04/17 01/04/17 15:00 16:00 16:00 16:21 Temp 98.8 98.8 Pulse 91 93 Resp 19 20 B/P (MAP) 100/63 (75) 110/56 (74) Pulse Ox 94 92 92 O2 Delivery Nasal Cannula Nasal Cannula Nasal Cannula Nasal Cannula O2 Flow Rate 3.0 3.0 3.0 3.0 01/04/17 17:00 Pulse 99 Resp 28 B/P (MAP) 95/58 (70) Pulse Ox 94 O2 Delivery Nasal Cannula O2 Flow Rate 3.0 Intake and Output 01/03/17 01/03/17 01/04/17 15:00 23:00 07:00 Intake Total 50 ml 3925 ml Output Total 220 ml 40 ml Balance -170 ml 3885 ml Nutrition Consultation Dietary Evaluation: Recommendations by RD: Increase Calorie Intake Comments: Rec. resume the ada diet as medically appropriate rec. PPN at 80 ml/hr if unable to advance diet Expected Outcomes/Goals: meet 75% estimated nutrition needs Malnutrition Findings: Reduced Attending Psychiatrist Strength: N/A Malnutrition related to morbid: No Weight Status: Morbidly Obese MARTA SHIPMAN MD Jan 04, 2017 17:32
--- NOTE | 2017-01-04 17:41 | PDOC ---
PULMONARY PROGRESS NOTES Subjective PT FEELS BETTER NON COMPLIANT WITH CPAP AT HOME NO O2 AT HOME Vitals Vital Signs Date Time Temp Pulse Resp B/P (MAP) Pulse Ox O2 Delivery O2 Flow Rate FiO2 01/04/17 17:00 99 28 95/58 (70) 94 Nasal Cannula 3.0 01/04/17 16:00 98.8 98.8 ROS: No Nausea, No Chest Pain, No Increase Cough General: Alert Lungs: Crackles Cardiovascular: S1, S2 Abdomen: Other (OBESE) Neuro Exam: Alert, Oriented Extremities: Other (EDEMA) Skin: Warm, Dry Labs Laboratory Tests Test 01/02/17 20:20 01/03/17 04:40 01/03/17 08:15 01/03/17 09:44 Glucose (Fingerstick) 263 mg/dL (70-99) 266 mg/dL (70-99) 295 mg/dL (70-99) White Blood Count 13.1 x10^3/uL (4.0-11.0) Red Blood Count 2.64 x10^6/uL (4.30-5.70) Hemoglobin 8.3 g/dL (13.0-17.5) Hematocrit 24.4 % (39.0-53.0) Mean Corpuscular Volume 93 fL (79-100) Mean Corpuscular Hemoglobin 31 pg (25-35) Mean Corpuscular Hemoglobin Concent 34 g/dL (31-37) Red Cell Distribution Width 15.7 % (11.5-14.5) Platelet Count 117 x10^3/uL (140-400) Neutrophils (%) (Auto) 86 % (31-73) Lymphocytes (%) (Auto) 5 % (24-48) Monocytes (%) (Auto) 9 % (0-9) Eosinophils (%) (Auto) 0 % (0-3) Basophils (%) (Auto) 0 % (0-3) Neutrophils # (Auto) 11.2 x10^3uL (1.8-7.7) Lymphocytes # (Auto) 0.6 x10^3/uL (1.0-4.8) Monocytes # (Auto) 1.2 x10^3/uL (0.0-1.1) Eosinophils # (Auto) 0.0 x10^3/uL (0.0-0.7) Basophils # (Auto) 0.0 x10^3/uL (0.0-0.2) Sodium Level 135 mmol/L (136-145) Potassium Level 4.4 mmol/L (3.5-5.1) Chloride Level 101 mmol/L (98-107) Carbon Dioxide Level 19 mmol/L (21-32) Anion Gap 15 (6-14) Blood Urea Nitrogen 49 mg/dL (8-26) Creatinine 3.7 mg/dL (0.7-1.3) Estimated GFR (Cockcroft-Gault) 16.7 BUN/Creatinine Ratio 13 (6-20) Glucose Level 231 mg/dL (70-99) Calcium Level 7.8 mg/dL (8.5-10.1) Total Bilirubin 0.9 mg/dL (0.2-1.0) Aspartate Amino Transf (AST/SGOT) 26 U/L (15-37) Alanine Aminotransferase (ALT/SGPT) 26 U/L (16-63) Alkaline Phosphatase 91 U/L (46-116) C-Reactive Protein, Quantitative 408.0 mg/L (0-3.3) Total Protein 6.6 g/dL (6.4-8.2) Albumin 2.3 g/dL (3.4-5.0) Albumin/Globulin Ratio 0.5 (1.0-1.7) Test 01/03/17 11:07 01/03/17 11:30 01/03/17 11:50 01/03/17 15:07 O2 Saturation 88 % (92-99) Arterial Blood pH 7.29 (7.35-7.45) Arterial Blood pCO2 at Patient Temp 29 mmHg (35-46) Arterial Blood pO2 at Patient Temp 60 mmHg (65-108) Arterial Blood HCO3 13 mmol/L (21-28) Arterial Blood Base Excess -12 mmol/L (-3-3) FiO2 21 Vancomycin Level Trough 46.4 mcg/mL (10.0-20.0) Vancomycin Last Dose Date 01/03/17 Vancomycin Last Dose Time 0000 Glucose (Fingerstick) 346 mg/dL (70-99) Lactic Acid Level 1.1 mmol/L (0.4-2.0) Creatine Kinase 106 U/L (39-308) Creatine Kinase MB (Mass) 1.4 ng/mL (0.0-3.6) Creatine Kinase MB Relative Index 1.3 % (0-4) Troponin I Quantitative 0.240 ng/mL (0.000-0.055) Test 01/03/17 17:07 01/03/17 18:55 01/03/17 19:00 01/03/17 21:39 Glucose (Fingerstick) 341 mg/dL (70-99) 262 mg/dL (70-99) Nasal Screen MRSA (PCR) Negative (Negative) Urine Collection Type Unknown Urine Color Bailey Urine Clarity Turbid Urine pH 5.0 Urine Specific Goode >=1.030 Urine Protein 100 mg/dL (NEG-TRACE) Urine Glucose (UA) >=1000 mg/dL (NEG) Urine Ketones (Stick) Trace mg/dL (NEG) Urine Blood Negative (NEG) Urine Nitrite Negative (NEG) Urine Bilirubin Small (NEG) Urine Urobilinogen Dipstick 1.0 mg/dL (0.2 mg/dL) Urine Leukocyte Esterase Trace (NEG) Urine RBC 0 /HPF (0-2) Urine WBC Occ /HPF (0-4) Urine Amorphous Sediment Present /HPF Urine Bacteria 0 /HPF (0-FEW) Test 01/04/17 00:23 01/04/17 06:50 01/04/17 09:55 01/04/17 12:20 O2 Saturation 97 % (92-99) Arterial Blood pH 7.33 (7.35-7.45) Arterial Blood pCO2 at Patient Temp 36 mmHg (35-46) Arterial Blood pO2 at Patient Temp 108 mmHg (65-108) Arterial Blood HCO3 18 mmol/L (21-28) Arterial Blood Base Excess -7 mmol/L (-3-3) FiO2 40 White Blood Count 11.9 x10^3/uL (4.0-11.0) Red Blood Count 2.24 x10^6/uL (4.30-5.70) Hemoglobin 7.0 g/dL (13.0-17.5) Hematocrit 20.4 % (39.0-53.0) Mean Corpuscular Volume 91 fL (79-100) Mean Corpuscular Hemoglobin 31 pg (25-35) Mean Corpuscular Hemoglobin Concent 34 g/dL (31-37) Red Cell Distribution Width 15.3 % (11.5-14.5) Platelet Count 128 x10^3/uL (140-400) Neutrophils (%) (Auto) 86 % (31-73) Lymphocytes (%) (Auto) 6 % (24-48) Monocytes (%) (Auto) 8 % (0-9) Eosinophils (%) (Auto) 0 % (0-3) Basophils (%) (Auto) 0 % (0-3) Neutrophils # (Auto) 10.2 x10^3uL (1.8-7.7) Lymphocytes # (Auto) 0.7 x10^3/uL (1.0-4.8) Monocytes # (Auto) 1.0 x10^3/uL (0.0-1.1) Eosinophils # (Auto) 0.0 x10^3/uL (0.0-0.7) Basophils # (Auto) 0.0 x10^3/uL (0.0-0.2) Sodium Level 135 mmol/L (136-145) Potassium Level 4.1 mmol/L (3.5-5.1) Chloride Level 100 mmol/L (98-107) Carbon Dioxide Level 22 mmol/L (21-32) Anion Gap 13 (6-14) Blood Urea Nitrogen 67 mg/dL (8-26) Creatinine 5.5 mg/dL (0.7-1.3) Estimated GFR (Cockcroft-Gault) 10.6 Glucose Level 227 mg/dL (70-99) Calcium Level 7.9 mg/dL (8.5-10.1) Glucose (Fingerstick) 243 mg/dL (70-99) 198 mg/dL (70-99) Test 01/04/17 17:12 Glucose (Fingerstick) 117 mg/dL (70-99) Laboratory Tests Test 01/03/17 18:55 01/03/17 19:00 01/03/17 21:39 01/04/17 00:23 Nasal Screen MRSA (PCR) Negative (Negative) Urine Collection Type Unknown Urine Color Bailey Urine Clarity Turbid Urine pH 5.0 Urine Specific Goode >=1.030 Urine Protein 100 mg/dL (NEG-TRACE) Urine Glucose (UA) >=1000 mg/dL (NEG) Urine Ketones (Stick) Trace mg/dL (NEG) Urine Blood Negative (NEG) Urine Nitrite Negative (NEG) Urine Bilirubin Small (NEG) Urine Urobilinogen Dipstick 1.0 mg/dL (0.2 mg/dL) Urine Leukocyte Esterase Trace (NEG) Urine RBC 0 /HPF (0-2) Urine WBC Occ /HPF (0-4) Urine Amorphous Sediment Present /HPF Urine Bacteria 0 /HPF (0-FEW) Glucose (Fingerstick) 262 mg/dL (70-99) O2 Saturation 97 % (92-99) Arterial Blood pH 7.33 (7.35-7.45) Arterial Blood pCO2 at Patient Temp 36 mmHg (35-46) Arterial Blood pO2 at Patient Temp 108 mmHg (65-108) Arterial Blood HCO3 18 mmol/L (21-28) Arterial Blood Base Excess -7 mmol/L (-3-3) FiO2 40 Test 01/04/17 06:50 01/04/17 09:55 01/04/17 12:20 01/04/17 17:12 White Blood Count 11.9 x10^3/uL (4.0-11.0) Red Blood Count 2.24 x10^6/uL (4.30-5.70) Hemoglobin 7.0 g/dL (13.0-17.5) Hematocrit 20.4 % (39.0-53.0) Mean Corpuscular Volume 91 fL (79-100) Mean Corpuscular Hemoglobin 31 pg (25-35) Mean Corpuscular Hemoglobin Concent 34 g/dL (31-37) Red Cell Distribution Width 15.3 % (11.5-14.5) Platelet Count 128 x10^3/uL (140-400) Neutrophils (%) (Auto) 86 % (31-73) Lymphocytes (%) (Auto) 6 % (24-48) Monocytes (%) (Auto) 8 % (0-9) Eosinophils (%) (Auto) 0 % (0-3) Basophils (%) (Auto) 0 % (0-3) Neutrophils # (Auto) 10.2 x10^3uL (1.8-7.7) Lymphocytes # (Auto) 0.7 x10^3/uL (1.0-4.8) Monocytes # (Auto) 1.0 x10^3/uL (0.0-1.1) Eosinophils # (Auto) 0.0 x10^3/uL (0.0-0.7) Basophils # (Auto) 0.0 x10^3/uL (0.0-0.2) Sodium Level 135 mmol/L (136-145) Potassium Level 4.1 mmol/L (3.5-5.1) Chloride Level 100 mmol/L (98-107) Carbon Dioxide Level 22 mmol/L (21-32) Anion Gap 13 (6-14) Blood Urea Nitrogen 67 mg/dL (8-26) Creatinine 5.5 mg/dL (0.7-1.3) Estimated GFR (Cockcroft-Gault) 10.6 Glucose Level 227 mg/dL (70-99) Calcium Level 7.9 mg/dL (8.5-10.1) Glucose (Fingerstick) 243 mg/dL (70-99) 198 mg/dL (70-99) 117 mg/dL (70-99) Medications Active Scripts Medications Dose Route/Sig Max Daily Dose Days Date Category Humalog (Insulin Lispro) 100 Unit/1 Ml Cartridge 23 Unit SQ TIDAC 01/02/17 Reported Vitamin D3 (Cholecalciferol (Vitamin D3)) 1,000 Unit Tablet 1 Tab PO DAILY 01/02/17 Reported Nexium Capsule (Esomeprazole Magnesium) 40 Mg Capsule.dr 1 Cap PO DAILY 01/02/17 Reported Losartan Potassium 50 Mg Tablet 50 Mg PO DAILY 01/02/17 Reported Gabapentin 300 Mg Capsule 300 Mg PO BID 01/02/17 Reported Celebrex (Celecoxib) 200 Mg Capsule 200 Mg PO BID 30 01/02/17 Reported Citalopram Hbr (Citalopram Hydrobromide) 40 Mg Tablet 40 Mg PO DAILY 06/09/13 Reported Lipitor (Atorvastatin Calcium) 20 Mg Tablet 20 Mg PO QHS 06/09/13 Reported Flomax (Tamsulosin Hcl) 0.4 Mg Cap.er.24h 0.4 Mg PO HS 06/09/13 Reported Metformin Hcl 500 Mg Tablet 500 Mg PO BID 06/09/13 Reported Plavix (Clopidogrel Bisulfate) 75 Mg Tablet 75 Mg PO DAILY 06/09/13 Reported Impression . IMPRESSION: 1. Acute hypoxemic respiratory failure. 2. Met /toxic encephalopathy 3. Metabolic acidosis 4. Acute kidney injury. 5. Chronic kidney disease. 6. Diabetes mellitus. 7. Hypertension. 8. Obstructive sleep apnea-hypopnea syndrome. 9. Diabetic foot. Plan . HD PER NEPHRO BIPAP ANTIBX DVT PROPH MAY NEED BIPAP AT HOME FAILED CPAP ANDERS DESIR MD Jan 04, 2017 17:41
[2017-01-04 20:02] LABS: HEMOGLOBIN 7.3 g/dL (13.0-17.5); RED BLOOD COUNT 2.39 x10^6/uL (4.30-5.70); RED CELL DISTRIBUTION WIDTH 15.7 % (11.5-14.5); WHITE BLOOD COUNT 11.3 x10^3/uL (4.0-11.0)
[2017-01-04 20:21] LABS: CALCIUM 7.7 mg/dL (8.5-10.1); CREATININE 3.7 mg/dL (0.7-1.3); GFR 16.7; MAGNESIUM 1.5 mg/dL (1.8-2.4); POTASSIUM 3.6 mmol/L (3.5-5.1)
[2017-01-04] MEDS ORDERED: oxyCODONE/APAP 5/325 1 TAB TABLET PO PRN (20:30)
[2017-01-04] MEDS: FUROSEMIDE 40 MG/4 ML VIAL. IVP SCH (20:44)
[2017-01-04] MEDS: ATORVASTATIN CALCIUM 20 MG TABLET PO SCH (20:44)
[2017-01-04] MEDS: TAMSULOSIN 0.4 MG CAP.ER.24H. PO SCH (20:44)
[2017-01-04] MEDS ORDERED: DARBEPOETIN ALFA 60 MCG/0.3 ML DISP.SYRIN. SQ SCH (21:00)
[2017-01-04] MEDS ORDERED: ENOXAPARIN 40 MG/0.4 ML SYRINGE. SQ SCH (21:00)
[2017-01-05] VITALS (21 sets, daily range): BP systolic 85–153; BP diastolic 49–88
[2017-01-05] MEDS: PIPERACILLIN/TAZOBACTAM 2.25 GM in IV NORMAL SALINE 50ML 50 ML IV SCH ×3 (05:41→22:01)
[2017-01-05] MEDS: HEPARIN PF for SUB-Q USE 5,000 UNIT/0.5 ML VIAL. SQ SCH ×3 (05:42→22:05)
[2017-01-05] MEDS: fentaNYL PF VIAL 100 MCG/2 ML VIAL IV PRN ×2 (06:12→19:07)
[2017-01-05 06:13] LABS: CALCIUM 7.8 mg/dL (8.5-10.1); CREATININE 4.6 mg/dL (0.7-1.3)
[2017-01-05] MEDS ORDERED: PROCHLORPERAZINE 10 MG/2 ML VIAL. IV PRN (07:00)
[2017-01-05] MEDS ORDERED: LIDOCAINE 1% 1 ML SYRINGE. ID PRN (07:00)
[2017-01-05] MEDS ORDERED: ONDANSETRON PF 4 MG/2 ML VIAL. IV PRN ×2 (07:00→15:30)
[2017-01-05] MEDS ORDERED: IV RINGERS,LACTATED 1000ML 1,000 ML IV SCH (07:00)
[2017-01-05] MEDS ORDERED: fentaNYL PF VIAL 100 MCG/2 ML VIAL IV PRN ×3 (07:00→15:30)
[2017-01-05] MEDS: INSULIN ASPART 300 UNITS/3 ML INSULN.PEN SQ SCH ×6 (07:30→20:39)
[2017-01-05] MEDS: IPRATRPIUM/ALBUTEROL 0.5/2.5MG 3 ML NEBU. NEB SCH ×4 (08:00→20:13)
[2017-01-05] MEDS: CLOPIDOGREL BISULFATE 75 MG TABLET PO SCH (09:00)
[2017-01-05] MEDS: FUROSEMIDE 40 MG/4 ML VIAL. IVP SCH ×2 (09:00→18:23)
--- NOTE | 2017-01-05 09:19 | PDOC ---
Infectious Disease Note Subjective Subjective Not feeling things are going well started on dialysis yesterday No fever last 24 hours ROS ROS GEN: Denies chills, sweats CV: Denies chest pain RESP: Denies shortness of air, cough GI: Denies n/v/d Vital Sign Vital Signs Vital Signs Date Time Temp Pulse Resp B/P (MAP) Pulse Ox O2 Delivery O2 Flow Rate FiO2 01/05/17 08:25 96 Nasal Cannula 4.0 01/05/17 06:00 84 9 108/64 (79) 01/05/17 04:00 98.5 98.5 Physical Exam PHYSICAL EXAM GENERAL: Propped up in bed, NAD LUNGS: Clear anteriorly HEART: S1S2 ABD: Obese, soft, NT EXT: Right foot bandaged. LLE swelling LANDMAN: Alert, Oriented x 3. SKIN: No rash RIJ/HDC. (01/04). clean Labs Lab Laboratory Tests Test 01/04/17 09:55 01/04/17 12:20 01/04/17 17:12 01/04/17 19:55 Glucose (Fingerstick) 243 mg/dL (70-99) 198 mg/dL (70-99) 117 mg/dL (70-99) White Blood Count 11.3 x10^3/uL (4.0-11.0) Red Blood Count 2.39 x10^6/uL (4.30-5.70) Hemoglobin 7.3 g/dL (13.0-17.5) Hematocrit 22.0 % (39.0-53.0) Mean Corpuscular Volume 92 fL (79-100) Mean Corpuscular Hemoglobin 31 pg (25-35) Mean Corpuscular Hemoglobin Concent 33 g/dL (31-37) Red Cell Distribution Width 15.7 % (11.5-14.5) Platelet Count 148 x10^3/uL (140-400) Sodium Level 136 mmol/L (136-145) Potassium Level 3.6 mmol/L (3.5-5.1) Chloride Level 98 mmol/L (98-107) Carbon Dioxide Level 27 mmol/L (21-32) Anion Gap 11 (6-14) Blood Urea Nitrogen 37 mg/dL (8-26) Creatinine 3.7 mg/dL (0.7-1.3) Estimated GFR (Cockcroft-Gault) 16.7 Glucose Level 183 mg/dL (70-99) Calcium Level 7.7 mg/dL (8.5-10.1) Magnesium Level 1.5 mg/dL (1.8-2.4) Test 01/04/17 20:43 01/05/17 05:45 01/05/17 07:51 Glucose (Fingerstick) 208 mg/dL (70-99) 125 mg/dL (70-99) Sodium Level 138 mmol/L (136-145) Potassium Level 4.0 mmol/L (3.5-5.1) Chloride Level 100 mmol/L (98-107) Carbon Dioxide Level 27 mmol/L (21-32) Anion Gap 11 (6-14) Blood Urea Nitrogen 45 mg/dL (8-26) Creatinine 4.6 mg/dL (0.7-1.3) Estimated GFR (Cockcroft-Gault) 13.0 Glucose Level 134 mg/dL (70-99) Calcium Level 7.8 mg/dL (8.5-10.1) Micro BLOOD CULTURE Final GRAM POSITIVE COCCI IN CLUSTERS IN 1 OF 5 BOTTLES(AEROBIC BOTTLE THIS SET);REPRESENTING 3 SETS DRAWN. URINE CULTURE RES 1 Preliminary No growth after 18-24 hours. Objective Assessment Gangrenous ulcer of right heel. MRI shows chronic neuropathic arthropathy changes with hardware in place; no definite evidence of acute osteo noted but cannot ruled out entirely with elevated ESR and WBC. GPC bacteremia (1 of 5 bottles), 01/03 Leukocytosis, better Lactic acidosis, better BRYCE on CKD, worse. Now on HD Left ankle nondisplaced fracture PVD-mild Severe peripheral neuropathy Uncontrolled Type II diabetes mellitus Morbid obesity, BMI 46 Plan Plan of Care Continue Zosyn, dose for renal function Await debridement, will need intra-op tissue/bone cultures Last dose vanc 01/03. Trough 46.4 D/w RN Attending Co-Sign The patient was seen and interviewed as well as examined at the bedside. The chart was reviewed. The case was discussed. Agree with the plan of care. ULISSES CABEZAS APRN Jan 05, 2017 09:19 ROLANDO RUIZ MD Jan 05, 2017 14:29
[2017-01-05] MEDS: LIDOCAINE (700MG/PATCH) PATCH. TD SCH (09:34)
[2017-01-05] MEDS: SENNOSIDES/DOCUSATE 8.6/50MG TABLET. PO SCH ×2 (09:34→20:38)
[2017-01-05] MEDS: CITALOPRAM 20 MG TABLET. PO SCH (09:34)
[2017-01-05] MEDS: IRON POLYSACCHARIDE COMPLEX 150 MG CAPSULE PO SCH ×2 (09:35→20:38)
[2017-01-05] MEDS: GABAPENTIN 300 MG CAPSULE. PO SCH ×2 (09:35→20:38)
[2017-01-05] MEDS: PANTOPRAZOLE 40 MG TABLET.DR. PO SCH (09:35)
[2017-01-05] MEDS: BISACODYL 5 MG TABLET.DR. PO SCH (09:35)
[2017-01-05] MEDS: CHOLECALCIFEROL (VITAMIN D3) 1,000 UNIT TABLET PO SCH (09:35)
[2017-01-05] MEDS: INSULIN DETEMIR 300 UNITS/3 ML INSULN.PEN. SQ SCH (09:37)
--- NOTE | 2017-01-05 10:36 | PDOC ---
PROGRESS NOTES Subjective Subjective He continues with pain in his right foot and low back. Objective Objective Vital Signs Date Time Temp Pulse Resp B/P (MAP) Pulse Ox O2 Delivery O2 Flow Rate FiO2 01/05/17 10:00 89 16 120/66 (84) 94 Nasal Cannula 4.0 01/05/17 08:00 98.8 98.8 Intake and Output 01/05/17 07:00 Intake Total 1488 ml Output Total 53 ml Balance 1435 ml Intake Oral 325 ml IV Total 1163 ml Output Urine Total 53 ml Physical Exam Physical Exam He is supine in bed receiving hemodialysis. Assessment Assessment Problems Medical Problems: (1) Diabetic foot ulcer Status: Acute (2) Hyperglycemia Status: Acute (3) Sepsis Status: Acute Plan Plan of Care To continue present care efforts as tolerated. Comment Review of Relevant I have reviewed the following items lauryn (where applicable) has been applied. Labs Laboratory Tests Test 01/03/17 11:07 01/03/17 11:30 01/03/17 11:50 01/03/17 15:07 O2 Saturation 88 % (92-99) Arterial Blood pH 7.29 (7.35-7.45) Arterial Blood pCO2 at Patient Temp 29 mmHg (35-46) Arterial Blood pO2 at Patient Temp 60 mmHg (65-108) Arterial Blood HCO3 13 mmol/L (21-28) Arterial Blood Base Excess -12 mmol/L (-3-3) FiO2 21 Vancomycin Level Trough 46.4 mcg/mL (10.0-20.0) Vancomycin Last Dose Date 01/03/17 Vancomycin Last Dose Time 0000 Glucose (Fingerstick) 346 mg/dL (70-99) Lactic Acid Level 1.1 mmol/L (0.4-2.0) Creatine Kinase 106 U/L (39-308) Creatine Kinase MB (Mass) 1.4 ng/mL (0.0-3.6) Creatine Kinase MB Relative Index 1.3 % (0-4) Troponin I Quantitative 0.240 ng/mL (0.000-0.055) Test 01/03/17 17:07 01/03/17 18:55 01/03/17 19:00 01/03/17 21:39 Glucose (Fingerstick) 341 mg/dL (70-99) 262 mg/dL (70-99) Nasal Screen MRSA (PCR) Negative (Negative) Urine Collection Type Unknown Urine Color Tower Urine Clarity Turbid Urine pH 5.0 Urine Specific [place] >=1.030 Urine Protein 100 mg/dL (NEG-TRACE) Urine Glucose (UA) >=1000 mg/dL (NEG) Urine Ketones (Stick) Trace mg/dL (NEG) Urine Blood Negative (NEG) Urine Nitrite Negative (NEG) Urine Bilirubin Small (NEG) Urine Urobilinogen Dipstick 1.0 mg/dL (0.2 mg/dL) Urine Leukocyte Esterase Trace (NEG) Urine RBC 0 /HPF (0-2) Urine WBC Occ /HPF (0-4) Urine Amorphous Sediment Present /HPF Urine Bacteria 0 /HPF (0-FEW) Test 01/04/17 00:23 01/04/17 06:50 01/04/17 09:55 01/04/17 12:20 O2 Saturation 97 % (92-99) Arterial Blood pH 7.33 (7.35-7.45) Arterial Blood pCO2 at Patient Temp 36 mmHg (35-46) Arterial Blood pO2 at Patient Temp 108 mmHg (65-108) Arterial Blood HCO3 18 mmol/L (21-28) Arterial Blood Base Excess -7 mmol/L (-3-3) FiO2 40 White Blood Count 11.9 x10^3/uL (4.0-11.0) Red Blood Count 2.24 x10^6/uL (4.30-5.70) Hemoglobin 7.0 g/dL (13.0-17.5) Hematocrit 20.4 % (39.0-53.0) Mean Corpuscular Volume 91 fL (79-100) Mean Corpuscular Hemoglobin 31 pg (25-35) Mean Corpuscular Hemoglobin Concent 34 g/dL (31-37) Red Cell Distribution Width 15.3 % (11.5-14.5) Platelet Count 128 x10^3/uL (140-400) Neutrophils (%) (Auto) 86 % (31-73) Lymphocytes (%) (Auto) 6 % (24-48) Monocytes (%) (Auto) 8 % (0-9) Eosinophils (%) (Auto) 0 % (0-3) Basophils (%) (Auto) 0 % (0-3) Neutrophils # (Auto) 10.2 x10^3uL (1.8-7.7) Lymphocytes # (Auto) 0.7 x10^3/uL (1.0-4.8) Monocytes # (Auto) 1.0 x10^3/uL (0.0-1.1) Eosinophils # (Auto) 0.0 x10^3/uL (0.0-0.7) Basophils # (Auto) 0.0 x10^3/uL (0.0-0.2) Sodium Level 135 mmol/L (136-145) Potassium Level 4.1 mmol/L (3.5-5.1) Chloride Level 100 mmol/L (98-107) Carbon Dioxide Level 22 mmol/L (21-32) Anion Gap 13 (6-14) Blood Urea Nitrogen 67 mg/dL (8-26) Creatinine 5.5 mg/dL (0.7-1.3) Estimated GFR (Cockcroft-Gault) 10.6 Glucose Level 227 mg/dL (70-99) Calcium Level 7.9 mg/dL (8.5-10.1) Glucose (Fingerstick) 243 mg/dL (70-99) 198 mg/dL (70-99) Test 01/04/17 17:12 01/04/17 19:55 01/04/17 20:43 01/05/17 05:45 Glucose (Fingerstick) 117 mg/dL (70-99) 208 mg/dL (70-99) White Blood Count 11.3 x10^3/uL (4.0-11.0) Red Blood Count 2.39 x10^6/uL (4.30-5.70) Hemoglobin 7.3 g/dL (13.0-17.5) Hematocrit 22.0 % (39.0-53.0) Mean Corpuscular Volume 92 fL (79-100) Mean Corpuscular Hemoglobin 31 pg (25-35) Mean Corpuscular Hemoglobin Concent 33 g/dL (31-37) Red Cell Distribution Width 15.7 % (11.5-14.5) Platelet Count 148 x10^3/uL (140-400) Sodium Level 136 mmol/L (136-145) 138 mmol/L (136-145) Potassium Level 3.6 mmol/L (3.5-5.1) 4.0 mmol/L (3.5-5.1) Chloride Level 98 mmol/L (98-107) 100 mmol/L (98-107) Carbon Dioxide Level 27 mmol/L (21-32) 27 mmol/L (21-32) Anion Gap 11 (6-14) 11 (6-14) Blood Urea Nitrogen 37 mg/dL (8-26) 45 mg/dL (8-26) Creatinine 3.7 mg/dL (0.7-1.3) 4.6 mg/dL (0.7-1.3) Estimated GFR (Cockcroft-Gault) 16.7 13.0 Glucose Level 183 mg/dL (70-99) 134 mg/dL (70-99) Calcium Level 7.7 mg/dL (8.5-10.1) 7.8 mg/dL (8.5-10.1) Magnesium Level 1.5 mg/dL (1.8-2.4) Test 01/05/17 07:51 Glucose (Fingerstick) 125 mg/dL (70-99) Laboratory Tests Test 01/04/17 12:20 01/04/17 17:12 01/04/17 19:55 01/04/17 20:43 Glucose (Fingerstick) 198 mg/dL (70-99) 117 mg/dL (70-99) 208 mg/dL (70-99) White Blood Count 11.3 x10^3/uL (4.0-11.0) Red Blood Count 2.39 x10^6/uL (4.30-5.70) Hemoglobin 7.3 g/dL (13.0-17.5) Hematocrit 22.0 % (39.0-53.0) Mean Corpuscular Volume 92 fL (79-100) Mean Corpuscular Hemoglobin 31 pg (25-35) Mean Corpuscular Hemoglobin Concent 33 g/dL (31-37) Red Cell Distribution Width 15.7 % (11.5-14.5) Platelet Count 148 x10^3/uL (140-400) Sodium Level 136 mmol/L (136-145) Potassium Level 3.6 mmol/L (3.5-5.1) Chloride Level 98 mmol/L (98-107) Carbon Dioxide Level 27 mmol/L (21-32) Anion Gap 11 (6-14) Blood Urea Nitrogen 37 mg/dL (8-26) Creatinine 3.7 mg/dL (0.7-1.3) Estimated GFR (Cockcroft-Gault) 16.7 Glucose Level 183 mg/dL (70-99) Calcium Level 7.7 mg/dL (8.5-10.1) Magnesium Level 1.5 mg/dL (1.8-2.4) Test 01/05/17 05:45 01/05/17 07:51 Sodium Level 138 mmol/L (136-145) Potassium Level 4.0 mmol/L (3.5-5.1) Chloride Level 100 mmol/L (98-107) Carbon Dioxide Level 27 mmol/L (21-32) Anion Gap 11 (6-14) Blood Urea Nitrogen 45 mg/dL (8-26) Creatinine 4.6 mg/dL (0.7-1.3) Estimated GFR (Cockcroft-Gault) 13.0 Glucose Level 134 mg/dL (70-99) Calcium Level 7.8 mg/dL (8.5-10.1) Glucose (Fingerstick) 125 mg/dL (70-99) Microbiology 01/03/17 Blood Culture - Preliminary, Resulted 01/03/17 Blood Culture Result 1 (LIONEL) - Preliminary, Resulted 01/03/17 Urine Culture - Preliminary, Resulted 01/03/17 Urine Culture Result 1 (LIONEL) - Preliminary, Resulted Medications Current Medications Sodium Chloride 1,000 ml @ 1,000 mls/hr 1X ONCE IV Last administered on 23:15; Start 01/01/17 at 23:00; Stop 01/01/17 at 23:59; Status DC Ampicillin Sodium/ Sulbactam Sodium 3 gm/Sodium Chloride 100 ml @ 200 mls/hr 1X ONCE IV Last administered on 01/01/17 23:43; Start 01/02/17 at 00:00; Stop 01/02/17 at 00:29; Status DC Vancomycin HCl (Vanco Per Pharmacy) 1 each PRN DAILY PRN MC SEE COMMENTS Last administered on 01/02/17 13:53; Start 01/01/17 at 23:30; Stop 01/03/17 at 12:11 ; Status DC Vancomycin HCl 2 gm/Sodium Chloride 500 ml @ 250 mls/hr 1X ONCE IV Last administered on 01/02/17 00:32; Start 01/02/17 at 00:00; Stop 01/02/17 at 01:59 ; Status DC Sodium Chloride 1,000 ml @ 2,000 mls/hr Q30M IV Last administered on 04:10; Start 01/02/17 at 00:00; Stop 01/02/17 at 02:15; Status DC Hydrocortisone Acetate (Anucort-Hc) 25 mg 1X ONCE MO Last administered on 01/01 23:43; Start 01/02/17 at 00:00; Stop 01/02/17 at 00:01; Status DC Hydromorphone HCl (Dilaudid) 1 mg 1X ONCE IV Last administered on 01/02/17 00 :35; Start 01/02/17 at 01:00; Stop 01/02/17 at 01:01; Status DC Ondansetron HCl (Zofran) 4 mg 1X ONCE IV Last administered on 01/02/17 00:35 ; Start 01/02/17 at 01:00; Stop 01/02/17 at 01:01; Status DC Hydromorphone HCl (Dilaudid) 2 mg STK-MED ONCE .ROUTE ; Start 01/02/17 at 00:33 ; Stop 01/02/17 at 00:34; Status DC Ondansetron HCl (Zofran) 4 mg PRN Q8HRS PRN IV NAUSEA/VOMITING; Start 01/02/17 at 01:15; Stop 01/03/17 at 01:14; Status DC Fentanyl Citrate (Fentanyl 2ml Vial) 50 mcg PRN Q2HR PRN IV SEVERE PAIN Last administered on 01/02/17 20:45; Start 01/02/17 at 01:15; Stop 01/03/17 at 01:14 ; Status DC Acetaminophen (Tylenol) 650 mg PRN Q4HRS PRN PO FEVER; Start 01/02/17 at 01:15 ; Stop 01/03/17 at 01:14; Status DC Vancomycin HCl 2 gm/Sodium Chloride 500 ml @ 250 mls/hr Q12H IV Last administered on 01/03/17 00:00; Start 01/02/17 at 12:00; Stop 01/03/17 at 12:11 ; Status DC Vancomycin HCl 1 each 1X ONCE MC Last administered on 01/03/17 11:30; Start 01/03/17 at 11:30; Stop 01/03/17 at 11:31; Status DC Atorvastatin Calcium (Lipitor) 20 mg QHS PO Last administered on 01/04/17 20: 44; Start 01/02/17 at 21:00 Celecoxib (CeleBREX) 200 mg BID PO Last administered on 01/02/17 09:51; Start 01/02/17 at 09:00; Stop 01/02/17 at 10:30; Status DC Vitamin D (Vitamin D3) 1,000 unit DAILY PO Last administered on 01/05/17 09:35 ; Start 01/02/17 at 09:00 Clopidogrel Bisulfate (Plavix) 75 mg DAILY PO Last administered on 01/04/17 12 :22; Start 01/02/17 at 09:00 Losartan Potassium (Cozaar) 50 mg DAILY PO Last administered on 01/03/17 10:41 ; Start 01/02/17 at 09:00; Stop 01/04/17 at 11:25; Status DC Metformin HCl (Glucophage) 500 mg BID PO Last administered on 01/03/17 10:42; Start 01/02/17 at 09:00; Stop 01/04/17 at 11:25; Status DC Tamsulosin HCl (Flomax) 0.4 mg HS PO Last administered on 01/04/17 20:44; Start 01/02/17 at 21:00 Citalopram Hydrobromide (CeleXA) 40 mg DAILY PO Last administered on 01/05/17 09:34; Start 01/02/17 at 09:00 Pantoprazole Sodium (Protonix) 40 mg DAILYAC PO Last administered on 01/05/17 09:35; Start 01/02/17 at 09:00 Gabapentin (Neurontin) 300 mg BID PO Last administered on 01/05/17 09:35; Start 01/02/17 at 09:00 Insulin Aspart (NovoLOG) 23 units TIDAC SQ Last administered on 01/04/17 12:25 ; Start 01/02/17 at 11:30 Insulin Aspart (NovoLOG) 0-9 UNITS QIDACHS SQ Last administered on 01/04/17 20 :51; Start 01/02/17 at 11:30 Dextrose (Dextrose 50%-Water Syringe) 12.5 gm PRN Q15MIN PRN IV SEE COMMENTS; Start 01/02/17 at 08:45 Sodium Chloride 1,000 ml @ 100 mls/hr 1X ONCE IV Last administered on 09:50; Start 01/02/17 at 08:45; Stop 01/02/17 at 18:44; Status DC Lidocaine (Lidoderm) 1 patch DAILY TD Last administered on 01/05/17 09:34; Start 01/02/17 at 09:00 Insulin Detemir (Levemir) 40 units DAILY08 SQ Last administered on 01/04/17 09 :57; Start 01/02/17 at 09:00; Stop 01/04/17 at 13:39; Status DC Enoxaparin Sodium (Lovenox Per Pharmacy Prophylaxis Dosing) 1 each PRN DAILY PRN MC SEE COMMENTS; Start 01/02/17 at 09:15; Status Cancel Enoxaparin Sodium (Lovenox 40mg Syringe) 40 mg Q12H SQ Last administered on 21:42; Start 01/02/17 at 10:00; Stop 01/04/17 at 10:18; Status DC Polysaccharide Iron Complex (Niferex 150) 150 mg BID PO Last administered on 09:35; Start 01/02/17 at 12:00 Bisacodyl (Dulcolax Tab) 10 mg DAILY PO Last administered on 01/05/17 09:35; Start 01/02/17 at 12:00 Senna/Docusate Sodium (Senna Plus) 2 tab PRN BID PRN PO CONSTIPATION Last administered on 01/03/17 10:42; Start 01/02/17 at 10:45 Senna/Docusate Sodium (Senna Plus) 1 tab BID PO Last administered on 01/05/17 09:34; Start 01/02/17 at 12:00 Piperacillin Sod/ Tazobactam Sod 3.375 gm/Sodium Chloride 50 ml @ 100 mls/hr Q6H IV Last administered on 01/03/17 10:40; Start 01/02/17 at 16:00; Stop at 12:11; Status DC Sodium Chloride 1,000 ml @ 100 mls/hr Q10H IV ; Start 01/03/17 at 10:45; Stop 01/04/17 at 00:59; Status DC Piperacillin Sod/ Tazobactam Sod 2.25 gm/Sodium Chloride 50 ml @ 100 mls/hr Q8HRS IV Last administered on 01/05/17 05:41; Start 01/03/17 at 14:00 Albuterol/ Ipratropium (Duoneb) 3 ml RTQID NEB Last administered on 01/05/17 08:00; Start 01/03/17 at 16:00 Sodium Chloride 1,000 ml @ 1,000 mls/hr 1X ONCE IV Last administered on 15:16; Start 01/03/17 at 15:15; Stop 01/03/17 at 16:14; Status DC Sodium Bicarbonate 75 meq/Sodium Chloride 1,075 ml @ 75 mls/hr [id number] IV Last administered on 01/04/17 09:52; Start 01/03/17 at 16:00 Sodium Bicarbonate 50 meq 1X ONCE IV Last administered on 01/03/17 16:08; Start 01/03/17 at 16:00; Stop 01/03/17 at 16:15; Status DC Sodium Bicarbonate 50 meq 1X ONCE IV Last administered on 01/03/17 16:09; Start 01/03/17 at 16:00; Stop 01/03/17 at 16:15; Status DC Sodium Bicarbonate 50 meq 1X ONCE IV Last administered on 01/03/17 16:09; Start 01/03/17 at 16:00; Stop 01/03/17 at 16:15; Status DC Sodium Chloride 500 ml @ 500 mls/hr PRN Q4HRS PRN IV HYPOTENSION; Start at 16:00 Acetaminophen (Acetaminophen Supp) 650 mg PRN Q6HRS PRN MO MILD PAIN / TEMP Last administered on 01/04/17 02:43; Start 01/04/17 at 02:00 Enoxaparin Sodium (Lovenox 40mg Syringe) 40 mg HS SQ ; Start 01/04/17 at 21:00; Stop 01/04/17 at 21:00; Status DC Lidocaine/Sodium Bicarbonate (Buffered Lidocaine 1%) 3 ml 1X ONCE IJ Last administered on 01/04/17 11:50; Start 01/04/17 at 11:30; Stop 01/04/17 at 11:31 ; Status DC Heparin Sodium/ Sodium Chloride 60 unit 1X ONCE IV Last administered on 11:50; Start 01/04/17 at 11:30; Stop 01/04/17 at 11:31; Status DC Heparin Sodium (Porcine) (Heparin Sodium) 2,500 unit 1X ONCE INT CAT Last administered on 01/04/17 11:51; Start 01/04/17 at 11:30; Stop 01/04/17 at 11:31 ; Status DC Heparin Sodium (Porcine) (Heparin Sodium) 10,000 unit STK-MED ONCE .ROUTE ; Start 01/04/17 at 11:22; Stop 01/04/17 at 11:23; Status DC Furosemide (Lasix) 40 mg BID92 IVP ; Start 01/04/17 at 11:30; Stop 01/04/17 at 14:58; Status DC Darbepoetin Robert (Aranesp) 60 mcg WEEKLYHS SQ Last administered on 01/04/17 20 :45; Start 01/04/17 at 21:00 Sodium Chloride 1,000 ml @ 1,000 mls/hr Q1H PRN IV hypotension; Start 01/04/17 at 13:02; Stop 01/04/17 at 19:01; Status DC Diphenhydramine HCl (Benadryl) 25 mg 1X PRN PRN IV ITCHING; Start 01/04/17 at 13:15; Stop 01/05/17 at 13:14 Diphenhydramine HCl (Benadryl) 25 mg 1X PRN PRN IV ITCHING; Start 01/04/17 at 13:15; Stop 01/05/17 at 13:14 Info (PHARMACY MONITORING -- do not chart) 1 each PRN DAILY PRN MC SEE COMMENTS ; Start 01/04/17 at 13:15; Status UNV Info (PHARMACY MONITORING -- do not chart) 1 each PRN DAILY PRN MC SEE COMMENTS ; Start 01/04/17 at 13:15 Insulin Detemir (Levemir) 45 units DAILY08 SQ Last administered on 01/05/17 09 :37; Start 01/04/17 at 14:00 Heparin Sodium (Porcine) (Heparin Sq) 5,000 unit Q8HRS SQ Last administered on 01/05/17 05:42; Start 01/04/17 at 14:00 Ondansetron HCl (Zofran) 4 mg PRN Q6HRS PRN IV NAUSEA/VOMITING; Start 01/05/17 at 07:00; Stop 01/06/17 at 06:59 Fentanyl Citrate (Fentanyl 2ml Vial) 25 mcg PRN Q5MIN PRN IV MILD PAIN; Start 01/05/17 at 07:00; Stop 01/06/17 at 06:59 Fentanyl Citrate (Fentanyl 2ml Vial) 50 mcg PRN Q5MIN PRN IV MODERATE PAIN; Start 01/05/17 at 07:00; Stop 01/06/17 at 06:59 Ringer's Solution 1,000 ml @ 30 mls/hr Q24H IV ; Start 01/05/17 at 07:00; Stop 01/05/17 at 18:59 Lidocaine HCl 2 ml PRN 1X PRN ID PRIOR TO IV START; Start 01/05/17 at 07:00; Stop 01/06/17 at 06:59 Prochlorperazine Edisylate (Compazine) 5 mg PACU PRN PRN IV NAUSEA, MRX1; Start 01/05/17 at 07:00; Stop 01/06/17 at 06:59 Furosemide (Lasix) 40 mg BID92 IVP Last administered on 01/04/17 20:44; Start 01/04/17 at 21:00 Oxycodone/ Acetaminophen (Percocet 5/325) 1 tab PRN Q4HRS PRN PO PAIN Last administered on 01/04/17 20:44; Start 01/04/17 at 20:30 Fentanyl Citrate (Fentanyl 2ml Vial) 50 mcg PRN Q2HR PRN IV SEVERE PAIN Last administered on 01/05/17 06:12; Start 01/05/17 at 06:00 Active Scripts Active Reported Humalog (Insulin Lispro) 100 Unit/1 Ml Cartridge 23 Unit SQ TIDAC Vitamin D3 (Cholecalciferol (Vitamin D3)) 1,000 Unit Tablet 1 Tab PO DAILY Nexium Capsule (Esomeprazole Magnesium) 40 Mg Capsule.dr 1 Cap PO DAILY Losartan Potassium 50 Mg Tablet 50 Mg PO DAILY Gabapentin 300 Mg Capsule 300 Mg PO BID Celebrex (Celecoxib) 200 Mg Capsule 200 Mg PO BID 30 Days Citalopram Hbr (Citalopram Hydrobromide) 40 Mg Tablet 40 Mg PO DAILY Lipitor (Atorvastatin Calcium) 20 Mg Tablet 20 Mg PO QHS Flomax (Tamsulosin Hcl) 0.4 Mg Cap.er.24h 0.4 Mg PO HS Metformin Hcl 500 Mg Tablet 500 Mg PO BID Plavix (Clopidogrel Bisulfate) 75 Mg Tablet 75 Mg PO DAILY Vitals/I & O Vital Sign - Last 24 Hours 01/04/17 01/04/17 01/04/17 01/04/17 11:00 12:00 12:00 12:28 Temp 99.4 99.4 Pulse 98 98 Resp 20 24 B/P (MAP) 104/58 (73) 94/64 (74) Pulse Ox 96 97 95 O2 Delivery Nasal Cannula Nasal Cannula Nasal Cannula Nasal Cannula O2 Flow Rate 3.0 3.0 3.0 3.0 01/04/17 01/04/17 01/04/17 01/04/17 13:00 14:00 15:00 16:00 Pulse 97 93 91 Resp 20 19 B/P (MAP) 104/64 (77) 116/63 (80) 100/63 (75) Pulse Ox 96 95 94 O2 Delivery Nasal Cannula Nasal Cannula Nasal Cannula Nasal Cannula O2 Flow Rate 3.0 3.0 3.0 3.0 01/04/17 01/04/17 01/04/17 01/04/17 16:00 16:21 17:00 18:00 Temp 98.8 98.8 Pulse 93 99 102 Resp 19 B/P (MAP) 110/56 (74) 95/58 (70) 110/71 (84) Pulse Ox 92 92 94 95 O2 Delivery Nasal Cannula Nasal Cannula Nasal Cannula Nasal Cannula O2 Flow Rate 3.0 3.0 3.0 3.0 01/04/17 01/04/17 01/04/17 01/04/17 19:00 20:00 20:00 20:11 Temp 99.4 99.4 Pulse 101 106 Resp 23 18 B/P (MAP) 116/77 (90) 95/65 (75) Pulse Ox 94 85 96 O2 Delivery Nasal Cannula Room Air Nasal Cannula Nasal Cannula O2 Flow Rate 3.0 3.0 3.0 01/04/17 01/04/17 01/04/17 01/04/17 20:44 21:00 22:00 22:05 Pulse 108 107 Resp 30 22 B/P (MAP) 99/53 (68) 81/59 (66) Pulse Ox 90 97 96 O2 Delivery Nasal Cannula BiPAP/CPAP O2 Flow Rate 3.0 01/04/17 01/05/17 01/05/17 01/05/17 23:00 00:00 00:00 00:09 Temp 99.9 99.9 Pulse 86 89 Resp 19 19 B/P (MAP) 87/51 (63) 89/57 (68) Pulse Ox 99 99 96 O2 Delivery BiPAP/CPAP BiPAP/CPAP Bi-pap 01/05/17 01/05/17 01/05/17 01/05/17 01:00 02:00 02:32 03:00 Pulse 87 88 89 Resp 20 16 11 B/P (MAP) 95/52 (66) 85/59 (68) 118/81 (93) Pulse Ox 98 99 96 100 O2 Delivery BiPAP/CPAP BiPAP/CPAP BiPAP/CPAP 01/05/17 01/05/17 01/05/17 01/05/17 04:00 04:00 05:00 05:10 Temp 98.5 98.5 Pulse 87 86 Resp 16 18 B/P (MAP) 90/56 (67) 106/61 (76) Pulse Ox 100 100 96 O2 Delivery Bi-pap BiPAP/CPAP BiPAP/CPAP 01/05/17 01/05/17 01/05/17 01/05/17 06:00 06:12 06:40 07:00 Pulse 84 86 Resp 9 24 B/P (MAP) 108/64 (79) 111/67 (82) Pulse Ox 97 100 96 98 O2 Delivery BiPAP/CPAP BiPAP/CPAP BiPAP/CPAP BiPAP/CPAP 01/05/17 01/05/17 01/05/17 01/05/17 08:00 08:00 08:25 09:00 Temp 98.8 98.8 Pulse 84 86 Resp 18 19 B/P (MAP) 116/65 (82) 110/72 (85) Pulse Ox 97 96 96 O2 Delivery Nasal Cannula Nasal Cannula Nasal Cannula Nasal Cannula O2 Flow Rate 4.0 4.0 4.0 4.0 01/05/17 10:00 Pulse 89 Resp 16 B/P (MAP) 120/66 (84) Pulse Ox 94 O2 Delivery Nasal Cannula O2 Flow Rate 4.0 Intake and Output 01/04/17 01/04/17 01/05/17 15:00 23:00 07:00 Intake Total 823 ml 300 ml 365 ml Output Total 45 ml 8 ml 0 ml Balance 778 ml 292 ml 365 ml Nutrition Consultation Dietary Evaluation: Recommendations by RD: Increase Calorie Intake Comments: Rec. resume the ada diet as medically appropriate rec. PPN at 80 ml/hr if unable to advance diet Expected Outcomes/Goals: meet 75% estimated nutrition needs Malnutrition Findings: Reduced Paperhanger Pipe Strength: N/A Malnutrition related to morbid: No Weight Status: Morbidly Obese MRATA SHIPMAN MD Jan 05, 2017 10:36
[2017-01-05] MEDS: SODIUM BICARBONATE VIAL 75 MEQ in IV 1/2 NORMAL SALINE 1,000 ML IV SCH (10:54)
[2017-01-05] MEDS ORDERED: IV NORMAL SALINE 1000ML BAG 1,000 ML IV PRN ×2 (11:47)
--- NOTE | 2017-01-05 11:57 | PDOC ---
Renal-Progress Notes Subjective Notes Notes NO COMPLAINTS History of Present Illness Hx of present illness STABLE Vitals Vitals Vital Signs Date Time Temp Pulse Resp B/P (MAP) Pulse Ox O2 Delivery O2 Flow Rate FiO2 01/05/17 11:00 90 17 111/56 (74) 98 Nasal Cannula 4.0 01/05/17 08:00 98.8 98.8 Weight Weight [ ] I.O. Intake and Output Intake and Output 01/05/17 07:00 Intake Total 1488 ml Output Total 53 ml Balance 1435 ml Intake Oral 325 ml IV Total 1163 ml Output Urine Total 53 ml Labs Labs Laboratory Tests Test 01/04/17 12:20 01/04/17 17:12 01/04/17 19:55 01/04/17 20:43 Glucose (Fingerstick) 198 mg/dL (70-99) 117 mg/dL (70-99) 208 mg/dL (70-99) White Blood Count 11.3 x10^3/uL (4.0-11.0) Red Blood Count 2.39 x10^6/uL (4.30-5.70) Hemoglobin 7.3 g/dL (13.0-17.5) Hematocrit 22.0 % (39.0-53.0) Mean Corpuscular Volume 92 fL (79-100) Mean Corpuscular Hemoglobin 31 pg (25-35) Mean Corpuscular Hemoglobin Concent 33 g/dL (31-37) Red Cell Distribution Width 15.7 % (11.5-14.5) Platelet Count 148 x10^3/uL (140-400) Sodium Level 136 mmol/L (136-145) Potassium Level 3.6 mmol/L (3.5-5.1) Chloride Level 98 mmol/L (98-107) Carbon Dioxide Level 27 mmol/L (21-32) Anion Gap 11 (6-14) Blood Urea Nitrogen 37 mg/dL (8-26) Creatinine 3.7 mg/dL (0.7-1.3) Estimated GFR (Cockcroft-Gault) 16.7 Glucose Level 183 mg/dL (70-99) Calcium Level 7.7 mg/dL (8.5-10.1) Magnesium Level 1.5 mg/dL (1.8-2.4) Test 01/05/17 05:45 01/05/17 07:51 01/05/17 11:24 Sodium Level 138 mmol/L (136-145) Potassium Level 4.0 mmol/L (3.5-5.1) Chloride Level 100 mmol/L (98-107) Carbon Dioxide Level 27 mmol/L (21-32) Anion Gap 11 (6-14) Blood Urea Nitrogen 45 mg/dL (8-26) Creatinine 4.6 mg/dL (0.7-1.3) Estimated GFR (Cockcroft-Gault) 13.0 Glucose Level 134 mg/dL (70-99) Calcium Level 7.8 mg/dL (8.5-10.1) Glucose (Fingerstick) 125 mg/dL (70-99) 103 mg/dL (70-99) Micro Micro Microbiology 01/03/17 Blood Culture - Preliminary, Resulted 01/03/17 Blood Culture Result 1 (LIONEL) - Preliminary, Resulted 01/03/17 Urine Culture - Preliminary, Resulted 01/03/17 Urine Culture Result 1 (LIONEL) - Preliminary, Resulted Review of Systems Constitutional: yes: weakness, alert Ears/Nose/Throat: Yes: no symptom reported Eyes: Yes: no symptom reported Pulmonary: Yes dyspnea Cardiovascular: Yes no symptom reported, Yes edema Gastrointestional: Yes: constipation Skin: Yes no symptom reported Psychiatric/Neurological: Yes: no symptom reported Physical Exam General Appearance: no apparent distress Skin: warm Respiratory: bilateral CTA Heart: S1S2 Abdomen: soft, tenderness Genitourinary: bladder flat Neurology: alert Assessment Assessment IMP BRYCE-ATN AND PROB IN LEUCOCYTOSIS CKD STAGE 3-CR PROB 1.8 AT BASELINE DM II RIGHT HEEL WOUND PLAN HD AGAIN TODAY UF 2 LITERS CONT IV LASIX WOUND DEBRIDEMENT PENDING ANTIBIOTICS MARSHAL GROSS MD Jan 05, 2017 11:56
[2017-01-05] MEDS ORDERED: DIALYSIS PATIENT. MC PRN ×2 (12:00)
[2017-01-05] MEDS ORDERED: 0.9 % SODIUM CHLORIDE 10 ML DISP.SYRIN. IV PRN ×2 (12:00)
[2017-01-05] MEDS ORDERED: ONDANSETRON PF 4 MG/2 ML VIAL. ONE (13:42)
[2017-01-05] MEDS ORDERED: LIDOCAINE 2% PF Vial for OR 5 ML VIAL. ONE (13:42)
[2017-01-05] MEDS ORDERED: PROPOFOL 20 ML IV ONE (13:42)
[2017-01-05] MEDS ORDERED: DEXAMETHASONE SOD PHOS 20 MG/5 ML VIAL. ONE (13:42)
--- NOTE | 2017-01-05 13:52 | PDOC ---
PULMONARY PROGRESS NOTES Subjective PT DOES NOT RECALL IF HE WAS ON BIPAP LAST LENA Vitals Vital Signs Date Time Temp Pulse Resp B/P (MAP) Pulse Ox O2 Delivery O2 Flow Rate FiO2 01/05/17 12:53 Nasal Cannula 4.0 01/05/17 12:00 98.0 90 19 153/75 (101) 93 98.0 ROS: No Nausea, No Chest Pain, No Increase Cough General: Alert Lungs: Crackles Cardiovascular: S1, S2 Abdomen: Other (OBESE) Neuro Exam: Alert, Oriented Extremities: Other (EDEMA) Skin: Warm, Dry Labs Laboratory Tests Test 01/03/17 15:07 01/03/17 17:07 01/03/17 18:55 01/03/17 19:00 Lactic Acid Level 1.1 mmol/L (0.4-2.0) Creatine Kinase 106 U/L (39-308) Creatine Kinase MB (Mass) 1.4 ng/mL (0.0-3.6) Creatine Kinase MB Relative Index 1.3 % (0-4) Troponin I Quantitative 0.240 ng/mL (0.000-0.055) Glucose (Fingerstick) 341 mg/dL (70-99) Nasal Screen MRSA (PCR) Negative (Negative) Urine Collection Type Unknown Urine Color Oliver Urine Clarity Turbid Urine pH 5.0 Urine Specific Spencer >=1.030 Urine Protein 100 mg/dL (NEG-TRACE) Urine Glucose (UA) >=1000 mg/dL (NEG) Urine Ketones (Stick) Trace mg/dL (NEG) Urine Blood Negative (NEG) Urine Nitrite Negative (NEG) Urine Bilirubin Small (NEG) Urine Urobilinogen Dipstick 1.0 mg/dL (0.2 mg/dL) Urine Leukocyte Esterase Trace (NEG) Urine RBC 0 /HPF (0-2) Urine WBC Occ /HPF (0-4) Urine Amorphous Sediment Present /HPF Urine Bacteria 0 /HPF (0-FEW) Test 01/03/17 21:39 01/04/17 00:23 01/04/17 06:50 01/04/17 09:55 Glucose (Fingerstick) 262 mg/dL (70-99) 243 mg/dL (70-99) O2 Saturation 97 % (92-99) Arterial Blood pH 7.33 (7.35-7.45) Arterial Blood pCO2 at Patient Temp 36 mmHg (35-46) Arterial Blood pO2 at Patient Temp 108 mmHg (65-108) Arterial Blood HCO3 18 mmol/L (21-28) Arterial Blood Base Excess -7 mmol/L (-3-3) FiO2 40 White Blood Count 11.9 x10^3/uL (4.0-11.0) Red Blood Count 2.24 x10^6/uL (4.30-5.70) Hemoglobin 7.0 g/dL (13.0-17.5) Hematocrit 20.4 % (39.0-53.0) Mean Corpuscular Volume 91 fL (79-100) Mean Corpuscular Hemoglobin 31 pg (25-35) Mean Corpuscular Hemoglobin Concent 34 g/dL (31-37) Red Cell Distribution Width 15.3 % (11.5-14.5) Platelet Count 128 x10^3/uL (140-400) Neutrophils (%) (Auto) 86 % (31-73) Lymphocytes (%) (Auto) 6 % (24-48) Monocytes (%) (Auto) 8 % (0-9) Eosinophils (%) (Auto) 0 % (0-3) Basophils (%) (Auto) 0 % (0-3) Neutrophils # (Auto) 10.2 x10^3uL (1.8-7.7) Lymphocytes # (Auto) 0.7 x10^3/uL (1.0-4.8) Monocytes # (Auto) 1.0 x10^3/uL (0.0-1.1) Eosinophils # (Auto) 0.0 x10^3/uL (0.0-0.7) Basophils # (Auto) 0.0 x10^3/uL (0.0-0.2) Sodium Level 135 mmol/L (136-145) Potassium Level 4.1 mmol/L (3.5-5.1) Chloride Level 100 mmol/L (98-107) Carbon Dioxide Level 22 mmol/L (21-32) Anion Gap 13 (6-14) Blood Urea Nitrogen 67 mg/dL (8-26) Creatinine 5.5 mg/dL (0.7-1.3) Estimated GFR (Cockcroft-Gault) 10.6 Glucose Level 227 mg/dL (70-99) Calcium Level 7.9 mg/dL (8.5-10.1) Test 01/04/17 12:20 01/04/17 17:12 01/04/17 19:55 01/04/17 20:43 Glucose (Fingerstick) 198 mg/dL (70-99) 117 mg/dL (70-99) 208 mg/dL (70-99) White Blood Count 11.3 x10^3/uL (4.0-11.0) Red Blood Count 2.39 x10^6/uL (4.30-5.70) Hemoglobin 7.3 g/dL (13.0-17.5) Hematocrit 22.0 % (39.0-53.0) Mean Corpuscular Volume 92 fL (79-100) Mean Corpuscular Hemoglobin 31 pg (25-35) Mean Corpuscular Hemoglobin Concent 33 g/dL (31-37) Red Cell Distribution Width 15.7 % (11.5-14.5) Platelet Count 148 x10^3/uL (140-400) Sodium Level 136 mmol/L (136-145) Potassium Level 3.6 mmol/L (3.5-5.1) Chloride Level 98 mmol/L (98-107) Carbon Dioxide Level 27 mmol/L (21-32) Anion Gap 11 (6-14) Blood Urea Nitrogen 37 mg/dL (8-26) Creatinine 3.7 mg/dL (0.7-1.3) Estimated GFR (Cockcroft-Gault) 16.7 Glucose Level 183 mg/dL (70-99) Calcium Level 7.7 mg/dL (8.5-10.1) Magnesium Level 1.5 mg/dL (1.8-2.4) Test 01/05/17 05:45 01/05/17 07:51 01/05/17 11:24 Sodium Level 138 mmol/L (136-145) Potassium Level 4.0 mmol/L (3.5-5.1) Chloride Level 100 mmol/L (98-107) Carbon Dioxide Level 27 mmol/L (21-32) Anion Gap 11 (6-14) Blood Urea Nitrogen 45 mg/dL (8-26) Creatinine 4.6 mg/dL (0.7-1.3) Estimated GFR (Cockcroft-Gault) 13.0 Glucose Level 134 mg/dL (70-99) Calcium Level 7.8 mg/dL (8.5-10.1) Glucose (Fingerstick) 125 mg/dL (70-99) 103 mg/dL (70-99) Laboratory Tests Test 01/04/17 17:12 01/04/17 19:55 01/04/17 20:43 01/05/17 05:45 Glucose (Fingerstick) 117 mg/dL (70-99) 208 mg/dL (70-99) White Blood Count 11.3 x10^3/uL (4.0-11.0) Red Blood Count 2.39 x10^6/uL (4.30-5.70) Hemoglobin 7.3 g/dL (13.0-17.5) Hematocrit 22.0 % (39.0-53.0) Mean Corpuscular Volume 92 fL (79-100) Mean Corpuscular Hemoglobin 31 pg (25-35) Mean Corpuscular Hemoglobin Concent 33 g/dL (31-37) Red Cell Distribution Width 15.7 % (11.5-14.5) Platelet Count 148 x10^3/uL (140-400) Sodium Level 136 mmol/L (136-145) 138 mmol/L (136-145) Potassium Level 3.6 mmol/L (3.5-5.1) 4.0 mmol/L (3.5-5.1) Chloride Level 98 mmol/L (98-107) 100 mmol/L (98-107) Carbon Dioxide Level 27 mmol/L (21-32) 27 mmol/L (21-32) Anion Gap 11 (6-14) 11 (6-14) Blood Urea Nitrogen 37 mg/dL (8-26) 45 mg/dL (8-26) Creatinine 3.7 mg/dL (0.7-1.3) 4.6 mg/dL (0.7-1.3) Estimated GFR (Cockcroft-Gault) 16.7 13.0 Glucose Level 183 mg/dL (70-99) 134 mg/dL (70-99) Calcium Level 7.7 mg/dL (8.5-10.1) 7.8 mg/dL (8.5-10.1) Magnesium Level 1.5 mg/dL (1.8-2.4) Test 01/05/17 07:51 01/05/17 11:24 Glucose (Fingerstick) 125 mg/dL (70-99) 103 mg/dL (70-99) Medications Active Scripts Medications Dose Route/Sig Max Daily Dose Days Date Category Humalog (Insulin Lispro) 100 Unit/1 Ml Cartridge 23 Unit SQ TIDAC 01/02/17 Reported Vitamin D3 (Cholecalciferol (Vitamin D3)) 1,000 Unit Tablet 1 Tab PO DAILY 01/02/17 Reported Nexium Capsule (Esomeprazole Magnesium) 40 Mg Capsule.dr 1 Cap PO DAILY 01/02/17 Reported Losartan Potassium 50 Mg Tablet 50 Mg PO DAILY 01/02/17 Reported Gabapentin 300 Mg Capsule 300 Mg PO BID 01/02/17 Reported Celebrex (Celecoxib) 200 Mg Capsule 200 Mg PO BID 30 01/02/17 Reported Citalopram Hbr (Citalopram Hydrobromide) 40 Mg Tablet 40 Mg PO DAILY 06/09/13 Reported Lipitor (Atorvastatin Calcium) 20 Mg Tablet 20 Mg PO QHS 06/09/13 Reported Flomax (Tamsulosin Hcl) 0.4 Mg Cap.er.24h 0.4 Mg PO HS 06/09/13 Reported Metformin Hcl 500 Mg Tablet 500 Mg PO BID 06/09/13 Reported Plavix (Clopidogrel Bisulfate) 75 Mg Tablet 75 Mg PO DAILY 06/09/13 Reported Impression . IMPRESSION: 1. Acute hypoxemic respiratory failure. 2. Met /toxic encephalopathy 3. Metabolic acidosis 4. Acute kidney injury. 5. Chronic kidney disease. 6. Diabetes mellitus. 7. Hypertension. 8. Obstructive sleep apnea-hypopnea syndrome. 9. Diabetic foot. Plan . HD PER NEPHRO BIPAP QHS AND PRN ANTIBX DVT PROPH MAY NEED BIPAP AT HOME FAILED CPAP ANDERS DESIR MD Jan 05, 2017 13:52
--- NOTE | 2017-01-05 13:55 | PDOC ---
PROGRESS NOTES Chief Complaint Chief Complaint Chief complaint: Right lower extremity ulcer Assessment and plan Altered mental status,: Unclear etiology, suspected due to hyperglycemia and acidosis, metabolic encephalopathy with BRYCE Right lower extremity heel ulcer, osteomyelitis ruled out: Imaging studies reviewed discussed with Dr. Biswas, orthopedics is planning for a debridement and the VAC placement. Elevated WBC: Continue current antibiotics Zosyn and vancomycin, fu with ID Metabolic acidosis: Likely related to infection: Ordered blood cultures, and all of temperature spike this morning Acute kidney injury: fu with renal ,new HD 01/04 Type 2 diabetes mellitus with hyperglycemia: Sliding scale insulin, increase levemir ot 45u daily, decrease aspart to 15u tid. Chronic kidney disease unknown baseline : Morbid obesity with sleep apnea: Try BiPAP based on ABGs Peripheral artery disease: Arterial ultrasound reviewed and venous Doppler revealed no DVTs discussed with Dr. Biswas, no plans for angiography based on renal functions at this time. Anemia, chronic dz, 1u PRBC 01/04 1/ + bacteremia, fu with ID, on zosyn History of Present Illness History of Present Illness higher Cr, oliguria, HD start from 01/04 chronic right heel unhealing wound forgetful, cough with mucus hyperglycemia [id number] Vitals Vitals Vital Signs Date Time Temp Pulse Resp B/P (MAP) Pulse Ox O2 Delivery O2 Flow Rate FiO2 01/05/17 12:53 Nasal Cannula 4.0 01/05/17 12:00 98.0 90 19 153/75 (101) 93 98.0 Physical Exam General: Alert, Oriented X3, Cooperative, No acute distress Heart: Regular rate, Normal S1 Lungs: Crackles Abdomen: Normal bowel sounds, Soft, No tenderness Extremities: No clubbing Skin: Other (RIGHT FOOT GANGRENE) Labs LABS Laboratory Tests Test 01/04/17 17:12 01/04/17 19:55 01/04/17 20:43 01/05/17 05:45 Glucose (Fingerstick) 117 mg/dL (70-99) 208 mg/dL (70-99) White Blood Count 11.3 x10^3/uL (4.0-11.0) Red Blood Count 2.39 x10^6/uL (4.30-5.70) Hemoglobin 7.3 g/dL (13.0-17.5) Hematocrit 22.0 % (39.0-53.0) Mean Corpuscular Volume 92 fL (79-100) Mean Corpuscular Hemoglobin 31 pg (25-35) Mean Corpuscular Hemoglobin Concent 33 g/dL (31-37) Red Cell Distribution Width 15.7 % (11.5-14.5) Platelet Count 148 x10^3/uL (140-400) Sodium Level 136 mmol/L (136-145) 138 mmol/L (136-145) Potassium Level 3.6 mmol/L (3.5-5.1) 4.0 mmol/L (3.5-5.1) Chloride Level 98 mmol/L (98-107) 100 mmol/L (98-107) Carbon Dioxide Level 27 mmol/L (21-32) 27 mmol/L (21-32) Anion Gap 11 (6-14) 11 (6-14) Blood Urea Nitrogen 37 mg/dL (8-26) 45 mg/dL (8-26) Creatinine 3.7 mg/dL (0.7-1.3) 4.6 mg/dL (0.7-1.3) Estimated GFR (Cockcroft-Gault) 16.7 13.0 Glucose Level 183 mg/dL (70-99) 134 mg/dL (70-99) Calcium Level 7.7 mg/dL (8.5-10.1) 7.8 mg/dL (8.5-10.1) Magnesium Level 1.5 mg/dL (1.8-2.4) Test 01/05/17 07:51 01/05/17 11:24 Glucose (Fingerstick) 125 mg/dL (70-99) 103 mg/dL (70-99) Review of Systems Review of Systems no fever, chills, sob or chest pain Assessment and Plan Assessmemt and Plan Problems Medical Problems: (1) Diabetic foot ulcer Status: Acute (2) Hyperglycemia Status: Acute (3) Sepsis Status: Acute Problems: Comment Review of Relevant I have reviewed the following items lauryn (where applicable) has been applied. Labs Laboratory Tests Test 01/03/17 15:07 01/03/17 17:07 01/03/17 18:55 01/03/17 19:00 Lactic Acid Level 1.1 mmol/L (0.4-2.0) Creatine Kinase 106 U/L (39-308) Creatine Kinase MB (Mass) 1.4 ng/mL (0.0-3.6) Creatine Kinase MB Relative Index 1.3 % (0-4) Troponin I Quantitative 0.240 ng/mL (0.000-0.055) Glucose (Fingerstick) 341 mg/dL (70-99) Nasal Screen MRSA (PCR) Negative (Negative) Urine Collection Type Unknown Urine Color [place] Urine Clarity Turbid Urine pH 5.0 Urine Specific [place] >=1.030 Urine Protein 100 mg/dL (NEG-TRACE) Urine Glucose (UA) >=1000 mg/dL (NEG) Urine Ketones (Stick) Trace mg/dL (NEG) Urine Blood Negative (NEG) Urine Nitrite Negative (NEG) Urine Bilirubin Small (NEG) Urine Urobilinogen Dipstick 1.0 mg/dL (0.2 mg/dL) Urine Leukocyte Esterase Trace (NEG) Urine RBC 0 /HPF (0-2) Urine WBC Occ /HPF (0-4) Urine Amorphous Sediment Present /HPF Urine Bacteria 0 /HPF (0-FEW) Test 01/03/17 21:39 01/04/17 00:23 01/04/17 06:50 01/04/17 09:55 Glucose (Fingerstick) 262 mg/dL (70-99) 243 mg/dL (70-99) O2 Saturation 97 % (92-99) Arterial Blood pH 7.33 (7.35-7.45) Arterial Blood pCO2 at Patient Temp 36 mmHg (35-46) Arterial Blood pO2 at Patient Temp 108 mmHg (65-108) Arterial Blood HCO3 18 mmol/L (21-28) Arterial Blood Base Excess -7 mmol/L (-3-3) FiO2 40 White Blood Count 11.9 x10^3/uL (4.0-11.0) Red Blood Count 2.24 x10^6/uL (4.30-5.70) Hemoglobin 7.0 g/dL (13.0-17.5) Hematocrit 20.4 % (39.0-53.0) Mean Corpuscular Volume 91 fL (79-100) Mean Corpuscular Hemoglobin 31 pg (25-35) Mean Corpuscular Hemoglobin Concent 34 g/dL (31-37) Red Cell Distribution Width 15.3 % (11.5-14.5) Platelet Count 128 x10^3/uL (140-400) Neutrophils (%) (Auto) 86 % (31-73) Lymphocytes (%) (Auto) 6 % (24-48) Monocytes (%) (Auto) 8 % (0-9) Eosinophils (%) (Auto) 0 % (0-3) Basophils (%) (Auto) 0 % (0-3) Neutrophils # (Auto) 10.2 x10^3uL (1.8-7.7) Lymphocytes # (Auto) 0.7 x10^3/uL (1.0-4.8) Monocytes # (Auto) 1.0 x10^3/uL (0.0-1.1) Eosinophils # (Auto) 0.0 x10^3/uL (0.0-0.7) Basophils # (Auto) 0.0 x10^3/uL (0.0-0.2) Sodium Level 135 mmol/L (136-145) Potassium Level 4.1 mmol/L (3.5-5.1) Chloride Level 100 mmol/L (98-107) Carbon Dioxide Level 22 mmol/L (21-32) Anion Gap 13 (6-14) Blood Urea Nitrogen 67 mg/dL (8-26) Creatinine 5.5 mg/dL (0.7-1.3) Estimated GFR (Cockcroft-Gault) 10.6 Glucose Level 227 mg/dL (70-99) Calcium Level 7.9 mg/dL (8.5-10.1) Test 01/04/17 12:20 01/04/17 17:12 01/04/17 19:55 01/04/17 20:43 Glucose (Fingerstick) 198 mg/dL (70-99) 117 mg/dL (70-99) 208 mg/dL (70-99) White Blood Count 11.3 x10^3/uL (4.0-11.0) Red Blood Count 2.39 x10^6/uL (4.30-5.70) Hemoglobin 7.3 g/dL (13.0-17.5) Hematocrit 22.0 % (39.0-53.0) Mean Corpuscular Volume 92 fL (79-100) Mean Corpuscular Hemoglobin 31 pg (25-35) Mean Corpuscular Hemoglobin Concent 33 g/dL (31-37) Red Cell Distribution Width 15.7 % (11.5-14.5) Platelet Count 148 x10^3/uL (140-400) Sodium Level 136 mmol/L (136-145) Potassium Level 3.6 mmol/L (3.5-5.1) Chloride Level 98 mmol/L (98-107) Carbon Dioxide Level 27 mmol/L (21-32) Anion Gap 11 (6-14) Blood Urea Nitrogen 37 mg/dL (8-26) Creatinine 3.7 mg/dL (0.7-1.3) Estimated GFR (Cockcroft-Gault) 16.7 Glucose Level 183 mg/dL (70-99) Calcium Level 7.7 mg/dL (8.5-10.1) Magnesium Level 1.5 mg/dL (1.8-2.4) Test 01/05/17 05:45 01/05/17 07:51 01/05/17 11:24 Sodium Level 138 mmol/L (136-145) Potassium Level 4.0 mmol/L (3.5-5.1) Chloride Level 100 mmol/L (98-107) Carbon Dioxide Level 27 mmol/L (21-32) Anion Gap 11 (6-14) Blood Urea Nitrogen 45 mg/dL (8-26) Creatinine 4.6 mg/dL (0.7-1.3) Estimated GFR (Cockcroft-Gault) 13.0 Glucose Level 134 mg/dL (70-99) Calcium Level 7.8 mg/dL (8.5-10.1) Glucose (Fingerstick) 125 mg/dL (70-99) 103 mg/dL (70-99) Laboratory Tests Test 01/04/17 17:12 01/04/17 19:55 01/04/17 20:43 01/05/17 05:45 Glucose (Fingerstick) 117 mg/dL (70-99) 208 mg/dL (70-99) White Blood Count 11.3 x10^3/uL (4.0-11.0) Red Blood Count 2.39 x10^6/uL (4.30-5.70) Hemoglobin 7.3 g/dL (13.0-17.5) Hematocrit 22.0 % (39.0-53.0) Mean Corpuscular Volume 92 fL (79-100) Mean Corpuscular Hemoglobin 31 pg (25-35) Mean Corpuscular Hemoglobin Concent 33 g/dL (31-37) Red Cell Distribution Width 15.7 % (11.5-14.5) Platelet Count 148 x10^3/uL (140-400) Sodium Level 136 mmol/L (136-145) 138 mmol/L (136-145) Potassium Level 3.6 mmol/L (3.5-5.1) 4.0 mmol/L (3.5-5.1) Chloride Level 98 mmol/L (98-107) 100 mmol/L (98-107) Carbon Dioxide Level 27 mmol/L (21-32) 27 mmol/L (21-32) Anion Gap 11 (6-14) 11 (6-14) Blood Urea Nitrogen 37 mg/dL (8-26) 45 mg/dL (8-26) Creatinine 3.7 mg/dL (0.7-1.3) 4.6 mg/dL (0.7-1.3) Estimated GFR (Cockcroft-Gault) 16.7 13.0 Glucose Level 183 mg/dL (70-99) 134 mg/dL (70-99) Calcium Level 7.7 mg/dL (8.5-10.1) 7.8 mg/dL (8.5-10.1) Magnesium Level 1.5 mg/dL (1.8-2.4) Test 01/05/17 07:51 01/05/17 11:24 Glucose (Fingerstick) 125 mg/dL (70-99) 103 mg/dL (70-99) Microbiology 01/03/17 Blood Culture - Preliminary, Resulted 01/03/17 Blood Culture Result 1 (LIONEL) - Preliminary, Resulted 01/03/17 Urine Culture - Final, Complete 01/03/17 Urine Culture Result 1 (LIONEL) - Final, Complete Medications Current Medications Sodium Chloride 1,000 ml @ 1,000 mls/hr 1X ONCE IV Last administered on 23:15; Start 01/01/17 at 23:00; Stop 01/01/17 at 23:59; Status DC Ampicillin Sodium/ Sulbactam Sodium 3 gm/Sodium Chloride 100 ml @ 200 mls/hr 1X ONCE IV Last administered on 01/01/17 23:43; Start 01/02/17 at 00:00; Stop 01/02/17 at 00:29; Status DC Vancomycin HCl (Vanco Per Pharmacy) 1 each PRN DAILY PRN MC SEE COMMENTS Last administered on 01/02/17 13:53; Start 01/01/17 at 23:30; Stop 01/03/17 at 12:11 ; Status DC Vancomycin HCl 2 gm/Sodium Chloride 500 ml @ 250 mls/hr 1X ONCE IV Last administered on 01/02/17 00:32; Start 01/02/17 at 00:00; Stop 01/02/17 at 01:59 ; Status DC Sodium Chloride 1,000 ml @ 2,000 mls/hr Q30M IV Last administered on 04:10; Start 01/02/17 at 00:00; Stop 01/02/17 at 02:15; Status DC Hydrocortisone Acetate (Anucort-Hc) 25 mg 1X ONCE MS Last administered on 01/01 23:43; Start 01/02/17 at 00:00; Stop 01/02/17 at 00:01; Status DC Hydromorphone HCl (Dilaudid) 1 mg 1X ONCE IV Last administered on 01/02/17 00 :35; Start 01/02/17 at 01:00; Stop 01/02/17 at 01:01; Status DC Ondansetron HCl (Zofran) 4 mg 1X ONCE IV Last administered on 01/02/17 00:35 ; Start 01/02/17 at 01:00; Stop 01/02/17 at 01:01; Status DC Hydromorphone HCl (Dilaudid) 2 mg STK-MED ONCE .ROUTE ; Start 01/02/17 at 00:33 ; Stop 01/02/17 at 00:34; Status DC Ondansetron HCl (Zofran) 4 mg PRN Q8HRS PRN IV NAUSEA/VOMITING; Start 01/02/17 at 01:15; Stop 01/03/17 at 01:14; Status DC Fentanyl Citrate (Fentanyl 2ml Vial) 50 mcg PRN Q2HR PRN IV SEVERE PAIN Last administered on 01/02/17 20:45; Start 01/02/17 at 01:15; Stop 01/03/17 at 01:14 ; Status DC Acetaminophen (Tylenol) 650 mg PRN Q4HRS PRN PO FEVER; Start 01/02/17 at 01:15 ; Stop 01/03/17 at 01:14; Status DC Vancomycin HCl 2 gm/Sodium Chloride 500 ml @ 250 mls/hr Q12H IV Last administered on 01/03/17 00:00; Start 01/02/17 at 12:00; Stop 01/03/17 at 12:11 ; Status DC Vancomycin HCl 1 each 1X ONCE MC Last administered on 01/03/17 11:30; Start 01/03/17 at 11:30; Stop 01/03/17 at 11:31; Status DC Atorvastatin Calcium (Lipitor) 20 mg QHS PO Last administered on 01/04/17 20: 44; Start 01/02/17 at 21:00 Celecoxib (CeleBREX) 200 mg BID PO Last administered on 01/02/17 09:51; Start 01/02/17 at 09:00; Stop 01/02/17 at 10:30; Status DC Vitamin D (Vitamin D3) 1,000 unit DAILY PO Last administered on 01/05/17 09:35 ; Start 01/02/17 at 09:00 Clopidogrel Bisulfate (Plavix) 75 mg DAILY PO Last administered on 01/04/17 12 :22; Start 01/02/17 at 09:00 Losartan Potassium (Cozaar) 50 mg DAILY PO Last administered on 01/03/17 10:41 ; Start 01/02/17 at 09:00; Stop 01/04/17 at 11:25; Status DC Metformin HCl (Glucophage) 500 mg BID PO Last administered on 01/03/17 10:42; Start 01/02/17 at 09:00; Stop 01/04/17 at 11:25; Status DC Tamsulosin HCl (Flomax) 0.4 mg HS PO Last administered on 01/04/17 20:44; Start 01/02/17 at 21:00 Citalopram Hydrobromide (CeleXA) 40 mg DAILY PO Last administered on 01/05/17 09:34; Start 01/02/17 at 09:00 Pantoprazole Sodium (Protonix) 40 mg DAILYAC PO Last administered on 01/05/17 09:35; Start 01/02/17 at 09:00 Gabapentin (Neurontin) 300 mg BID PO Last administered on 01/05/17 09:35; Start 01/02/17 at 09:00 Insulin Aspart (NovoLOG) 23 units TIDAC SQ Last administered on 01/04/17 12:25 ; Start 01/02/17 at 11:30 Insulin Aspart (NovoLOG) 0-9 UNITS QIDACHS SQ Last administered on 01/04/17 20 :51; Start 01/02/17 at 11:30 Dextrose (Dextrose 50%-Water Syringe) 12.5 gm PRN Q15MIN PRN IV SEE COMMENTS; Start 01/02/17 at 08:45 Sodium Chloride 1,000 ml @ 100 mls/hr 1X ONCE IV Last administered on 09:50; Start 01/02/17 at 08:45; Stop 01/02/17 at 18:44; Status DC Lidocaine (Lidoderm) 1 patch DAILY TD Last administered on 01/05/17 09:34; Start 01/02/17 at 09:00 Insulin Detemir (Levemir) 40 units DAILY08 SQ Last administered on 01/04/17 09 :57; Start 01/02/17 at 09:00; Stop 01/04/17 at 13:39; Status DC Enoxaparin Sodium (Lovenox Per Pharmacy Prophylaxis Dosing) 1 each PRN DAILY PRN MC SEE COMMENTS; Start 01/02/17 at 09:15; Status Cancel Enoxaparin Sodium (Lovenox 40mg Syringe) 40 mg Q12H SQ Last administered on 21:42; Start 01/02/17 at 10:00; Stop 01/04/17 at 10:18; Status DC Polysaccharide Iron Complex (Niferex 150) 150 mg BID PO Last administered on 09:35; Start 01/02/17 at 12:00 Bisacodyl (Dulcolax Tab) 10 mg DAILY PO Last administered on 01/05/17 09:35; Start 01/02/17 at 12:00 Senna/Docusate Sodium (Senna Plus) 2 tab PRN BID PRN PO CONSTIPATION Last administered on 01/03/17 10:42; Start 01/02/17 at 10:45 Senna/Docusate Sodium (Senna Plus) 1 tab BID PO Last administered on 01/05/17 09:34; Start 01/02/17 at 12:00 Piperacillin Sod/ Tazobactam Sod 3.375 gm/Sodium Chloride 50 ml @ 100 mls/hr Q6H IV Last administered on 01/03/17 10:40; Start 01/02/17 at 16:00; Stop at 12:11; Status DC Sodium Chloride 1,000 ml @ 100 mls/hr Q10H IV ; Start 01/03/17 at 10:45; Stop 01/04/17 at 00:59; Status DC Piperacillin Sod/ Tazobactam Sod 2.25 gm/Sodium Chloride 50 ml @ 100 mls/hr Q8HRS IV Last administered on 01/05/17 05:41; Start 01/03/17 at 14:00 Albuterol/ Ipratropium (Duoneb) 3 ml RTQID NEB Last administered on 01/05/17 12:52; Start 01/03/17 at 16:00 Sodium Chloride 1,000 ml @ 1,000 mls/hr 1X ONCE IV Last administered on 15:16; Start 01/03/17 at 15:15; Stop 01/03/17 at 16:14; Status DC Sodium Bicarbonate 75 meq/Sodium Chloride 1,075 ml @ 75 mls/hr [id number] IV Last administered on 01/04/17 09:52; Start 01/03/17 at 16:00 Sodium Bicarbonate 50 meq 1X ONCE IV Last administered on 01/03/17 16:08; Start 01/03/17 at 16:00; Stop 01/03/17 at 16:15; Status DC Sodium Bicarbonate 50 meq 1X ONCE IV Last administered on 01/03/17 16:09; Start 01/03/17 at 16:00; Stop 01/03/17 at 16:15; Status DC Sodium Bicarbonate 50 meq 1X ONCE IV Last administered on 01/03/17 16:09; Start 01/03/17 at 16:00; Stop 01/03/17 at 16:15; Status DC Sodium Chloride 500 ml @ 500 mls/hr PRN Q4HRS PRN IV HYPOTENSION; Start at 16:00 Acetaminophen (Acetaminophen Supp) 650 mg PRN Q6HRS PRN MS MILD PAIN / TEMP Last administered on 01/04/17 02:43; Start 01/04/17 at 02:00 Enoxaparin Sodium (Lovenox 40mg Syringe) 40 mg HS SQ ; Start 01/04/17 at 21:00; Stop 01/04/17 at 21:00; Status DC Lidocaine/Sodium Bicarbonate (Buffered Lidocaine 1%) 3 ml 1X ONCE IJ Last administered on 01/04/17 11:50; Start 01/04/17 at 11:30; Stop 01/04/17 at 11:31 ; Status DC Heparin Sodium/ Sodium Chloride 60 unit 1X ONCE IV Last administered on 11:50; Start 01/04/17 at 11:30; Stop 01/04/17 at 11:31; Status DC Heparin Sodium (Porcine) (Heparin Sodium) 2,500 unit 1X ONCE INT CAT Last administered on 01/04/17 11:51; Start 01/04/17 at 11:30; Stop 01/04/17 at 11:31 ; Status DC Heparin Sodium (Porcine) (Heparin Sodium) 10,000 unit STK-MED ONCE .ROUTE ; Start 01/04/17 at 11:22; Stop 01/04/17 at 11:23; Status DC Furosemide (Lasix) 40 mg [id number] IVP ; Start 01/04/17 at 11:30; Stop 01/04/17 at 14:58; Status DC Darbepoetin Robert (Aranesp) 60 mcg WEEKLYHS SQ Last administered on 01/04/17 20 :45; Start 01/04/17 at 21:00 Sodium Chloride 1,000 ml @ 1,000 mls/hr Q1H PRN IV hypotension; Start 01/04/17 at 13:02; Stop 01/04/17 at 19:01; Status DC Diphenhydramine HCl (Benadryl) 25 mg 1X PRN PRN IV ITCHING; Start 01/04/17 at 13:15; Stop 01/05/17 at 13:14; Status DC Diphenhydramine HCl (Benadryl) 25 mg 1X PRN PRN IV ITCHING; Start 01/04/17 at 13:15; Stop 01/05/17 at 13:14; Status DC Info (PHARMACY MONITORING -- do not chart) 1 each PRN DAILY PRN MC SEE COMMENTS ; Start 01/04/17 at 13:15; Status UNV Info (PHARMACY MONITORING -- do not chart) 1 each PRN DAILY PRN MC SEE COMMENTS ; Start 01/04/17 at 13:15 Insulin Detemir (Levemir) 45 units DAILY08 SQ Last administered on 01/05/17 09 :37; Start 01/04/17 at 14:00 Heparin Sodium (Porcine) (Heparin Sq) 5,000 unit Q8HRS SQ Last administered on 01/05/17 05:42; Start 01/04/17 at 14:00 Ondansetron HCl (Zofran) 4 mg PRN Q6HRS PRN IV NAUSEA/VOMITING; Start 01/05/17 at 07:00; Stop 01/06/17 at 06:59 Fentanyl Citrate (Fentanyl 2ml Vial) 25 mcg PRN Q5MIN PRN IV MILD PAIN; Start 01/05/17 at 07:00; Stop 01/06/17 at 06:59 Fentanyl Citrate (Fentanyl 2ml Vial) 50 mcg PRN Q5MIN PRN IV MODERATE PAIN; Start 01/05/17 at 07:00; Stop 01/06/17 at 06:59 Ringer's Solution 1,000 ml @ 30 mls/hr Q24H IV ; Start 01/05/17 at 07:00; Stop 01/05/17 at 18:59 Lidocaine HCl 2 ml PRN 1X PRN ID PRIOR TO IV START; Start 01/05/17 at 07:00; Stop 01/06/17 at 06:59 Prochlorperazine Edisylate (Compazine) 5 mg PACU PRN PRN IV NAUSEA, MRX1; Start 01/05/17 at 07:00; Stop 01/06/17 at 06:59 Furosemide (Lasix) 40 mg [id number] IVP Last administered on 01/04/17 20:44; Start 01/04/17 at 21:00 Oxycodone/ Acetaminophen (Percocet 5/325) 1 tab PRN Q4HRS PRN PO PAIN Last administered on 01/04/17 20:44; Start 01/04/17 at 20:30 Fentanyl Citrate (Fentanyl 2ml Vial) 50 mcg PRN Q2HR PRN IV SEVERE PAIN Last administered on 01/05/17 06:12; Start 01/05/17 at 06:00 Sodium Chloride 1,000 ml @ 1,000 mls/hr Q1H PRN IV hypotension; Start 01/05/17 at 11:47; Stop 01/05/17 at 17:46 Sodium Chloride (Normal Saline Flush) 10 ml 1X PRN PRN IV AP catheter pack; Start 01/05/17 at 12:00; Stop 01/06/17 at 11:59 Sodium Chloride (Normal Saline Flush) 10 ml 1X PRN PRN IV MARKER MACHINE catheter pack; Start 01/05/17 at 12:00; Stop 01/06/17 at 11:59 Sodium Chloride 1,000 ml @ 400 mls/hr Q2H30M PRN IV PATENCY; Start 01/05/17 at 11:47; Stop 01/05/17 at 23:46 Info (PHARMACY MONITORING -- do not chart) 1 each PRN DAILY PRN MC SEE COMMENTS ; Start 01/05/17 at 12:00; Status UNV Info (PHARMACY MONITORING -- do not chart) 1 each PRN DAILY PRN MC SEE COMMENTS ; Start 01/05/17 at 12:00; Status UNV Propofol 20 ml @ As Directed STK-MED ONCE IV ; Start 01/05/17 at 13:42; Stop at 13:43; Status DC Dexamethasone Sodium Phosphate (Decadron) 20 mg STK-MED ONCE .ROUTE ; Start at 13:42; Stop 01/05/17 at 13:43; Status DC Ondansetron HCl (Zofran) 4 mg STK-MED ONCE .ROUTE ; Start 01/05/17 at 13:42; Stop 01/05/17 at 13:43; Status DC Lidocaine HCl (Lidocaine Pf 2% Vial) 5 ml STK-MED ONCE .ROUTE ; Start 01/05/17 at 13:42; Stop 01/05/17 at 13:43; Status DC Active Scripts Active Reported Humalog (Insulin Lispro) 100 Unit/1 Ml Cartridge 23 Unit SQ TIDAC Vitamin D3 (Cholecalciferol (Vitamin D3)) 1,000 Unit Tablet 1 Tab PO DAILY Nexium Capsule (Esomeprazole Magnesium) 40 Mg Capsule.dr 1 Cap PO DAILY Losartan Potassium 50 Mg Tablet 50 Mg PO DAILY Gabapentin 300 Mg Capsule 300 Mg PO BID Celebrex (Celecoxib) 200 Mg Capsule 200 Mg PO BID 30 Days Citalopram Hbr (Citalopram Hydrobromide) 40 Mg Tablet 40 Mg PO DAILY Lipitor (Atorvastatin Calcium) 20 Mg Tablet 20 Mg PO QHS Flomax (Tamsulosin Hcl) 0.4 Mg Cap.er.24h 0.4 Mg PO HS Metformin Hcl 500 Mg Tablet 500 Mg PO BID Plavix (Clopidogrel Bisulfate) 75 Mg Tablet 75 Mg PO DAILY Vitals/I & O Vital Sign - Last 24 Hours 01/04/17 01/04/17 01/04/17 01/04/17 14:00 15:00 16:00 16:00 Temp 98.8 98.8 Pulse 93 91 93 Resp 21 19 20 B/P (MAP) 116/63 (80) 100/63 (75) 110/56 (74) Pulse Ox 95 94 92 O2 Delivery Nasal Cannula Nasal Cannula Nasal Cannula Nasal Cannula O2 Flow Rate 3.0 3.0 3.0 3.0 01/04/17 01/04/17 01/04/17 01/04/17 16:21 17:00 18:00 19:00 Pulse 99 102 101 Resp 28 19 23 B/P (MAP) 95/58 (70) 110/71 (84) 116/77 (90) Pulse Ox 92 94 95 94 O2 Delivery Nasal Cannula Nasal Cannula Nasal Cannula Nasal Cannula O2 Flow Rate 3.0 3.0 3.0 3.0 01/04/17 01/04/17 01/04/17 01/04/17 20:00 20:00 20:11 20:44 Temp 99.4 99.4 Pulse 106 Resp 18 30 B/P (MAP) 95/65 (75) Pulse Ox 85 96 O2 Delivery Room Air Nasal Cannula Nasal Cannula O2 Flow Rate 3.0 3.0 01/04/17 01/04/17 01/04/17 01/04/17 21:00 22:00 22:05 23:00 Pulse 108 107 86 Resp 25 22 19 B/P (MAP) 99/53 (68) 81/59 (66) 87/51 (63) Pulse Ox 90 97 96 99 O2 Delivery Nasal Cannula BiPAP/CPAP BiPAP/CPAP O2 Flow Rate 3.0 01/05/17 01/05/17 01/05/17 01/05/17 00:00 00:00 00:09 01:00 Temp 99.9 99.9 Pulse 89 87 Resp 19 20 B/P (MAP) 89/57 (68) 95/52 (66) Pulse Ox 99 96 98 O2 Delivery BiPAP/CPAP Bi-pap BiPAP/CPAP 01/05/17 01/05/17 01/05/17 01/05/17 02:00 02:32 03:00 04:00 Pulse 88 89 Resp 16 11 B/P (MAP) 85/59 (68) 118/81 (93) Pulse Ox 99 96 100 O2 Delivery BiPAP/CPAP BiPAP/CPAP Bi-pap 01/05/17 01/05/17 01/05/17 01/05/17 04:00 05:00 05:10 06:00 Temp 98.5 98.5 Pulse 87 86 84 Resp 16 18 9 B/P (MAP) 90/56 (67) 106/61 (76) 108/64 (79) Pulse Ox 100 100 96 97 O2 Delivery BiPAP/CPAP BiPAP/CPAP BiPAP/CPAP 01/05/17 01/05/17 01/05/17 01/05/17 06:12 06:40 07:00 08:00 Pulse 86 Resp 24 B/P (MAP) 111/67 (82) Pulse Ox 100 96 98 O2 Delivery BiPAP/CPAP BiPAP/CPAP BiPAP/CPAP Nasal Cannula O2 Flow Rate 4.0 01/05/17 01/05/17 01/05/17 01/05/17 08:00 08:25 09:00 10:00 Temp 98.8 98.8 Pulse 84 86 89 Resp 18 19 16 B/P (MAP) 116/65 (82) 110/72 (85) 120/66 (84) Pulse Ox 97 96 96 94 O2 Delivery Nasal Cannula Nasal Cannula Nasal Cannula Nasal Cannula O2 Flow Rate 4.0 4.0 4.0 4.0 01/05/17 01/05/17 01/05/17 01/05/17 11:00 12:00 12:00 12:53 Temp 98.0 98.0 Pulse 90 90 Resp 17 19 B/P (MAP) 111/56 (74) 153/75 (101) Pulse Ox 98 93 O2 Delivery Nasal Cannula Nasal Cannula Nasal Cannula Nasal Cannula O2 Flow Rate 4.0 4.0 4.0 4.0 Intake and Output 01/04/17 01/04/17 01/05/17 15:00 23:00 07:00 Intake Total 823 ml 300 ml 365 ml Output Total 45 ml 8 ml 0 ml Balance 778 ml 292 ml 365 ml Nutrition Consultation Dietary Evaluation: Recommendations by RD: Increase Calorie Intake Comments: Rec. resume the ada diet as medically appropriate rec. PPN at 80 ml/hr if unable to advance diet Expected Outcomes/Goals: meet 75% estimated nutrition needs Malnutrition Findings: Reduced Loom Checker Strength: N/A Malnutrition related to morbid: No Weight Status: Morbidly Obese MELISSA CHO MD Jan 05, 2017 13:55
[2017-01-05] MEDS ORDERED: MIDAZOLAM HCL/PF 2 MG/2 ML VIAL. ONE (14:28)
[2017-01-05] MEDS ORDERED: fentaNYL PF VIAL 100 MCG/2 ML VIAL ONE (14:28)
[2017-01-05] MEDS ORDERED: DESFLURANE 31 TO 60 MINUTES IH ONE (15:05)
--- NOTE | 2017-01-05 15:25 | PDOC4 ---
Operative Note Operative Note Date of Procedure: January 05, 2017 Pre-Op Diagnosis: Right heel full-thickness dry gangrene ulcer Post-Op Diagnosis: Same Procedure: Excisional debridement skin and subcutaneous tissue right foot dry gangrene Surgeon: Delvin Van MD Wrapper Stemmer Hand: Chelita Street PA-C Anesthesia: General EBL: 5 mL Specimens Obtained: none Complications: none Drains: none Indications for Procedure: The patient is a 61-year-old man with diabetes, multiple comorbidities, neuropathy, previous ankle fusion, and a full-thickness calcaneal ulcer with necrotic tissue. An MRI shows no obvious evidence of deep abscess or osteomyelitis. The patient and I discussed the risks, benefits and alternatives of surgery. I recommended surgical debridement and he agreed. Written consent was obtained. Procedure in Detail: The patient was identified in the intensive care unit, and the correct right lower extremity was marked by me. The patient was taken to the operating room where general anesthesia was used. The patient was positioned supine on the operating table. The patient remains on intravenous Zosyn and no additional antibodies were given. A timeout procedure was performed. The limb was prepared in sterile fashion with Betadine and sterile drapes were applied. An Esmarch bandage was used as a tourniquet, and tightened around the ankle. A 10 blade scalpel was used for excisional debridement of the skin and subcutaneous tissue. There was a full-thickness dry gangrenous ulcer, without obvious deep infection or obvious extension to the radius bone. The tourniquet was released. Bovie electrocautery was used for hemostasis. Copious irrigation was performed with the Nicole interpulse device. Further hemostasis was achieved with Bovie electrocautery. A sterile dressing was applied. The plan is to begin wound VAC application treatments. There was no obvious purulent drainage nor need for cultures. The patient tolerated the procedure well and returned to the intensive care unit in good condition. Needle and sponge counts were correct. DELVIN VAN MD Jan 05, 2017 15:25
[2017-01-05] MEDS ORDERED: oxyCODONE IR 5 MG TABLET PO PRN (15:30)
[2017-01-05] MEDS ORDERED: DEXTROSE 50% 25 GM / 50ML DISP.SYRIN. IV PRN (15:30)
[2017-01-05] MEDS ORDERED: POLYETHYLENE GLYCOL 3350 17 GM PACKET. PO PRN (15:30)
[2017-01-05 16:16] LABS: HEP B SURFACE ABDY Non Reactive (.)
[2017-01-05] MEDS: ATORVASTATIN CALCIUM 20 MG TABLET PO SCH (20:38)
[2017-01-05] MEDS: TAMSULOSIN 0.4 MG CAP.ER.24H. PO SCH (22:06)
[2017-01-06] VITALS (17 sets, daily range): BP systolic 98–139; BP diastolic 56–78
[2017-01-06] MEDS: SODIUM BICARBONATE VIAL 75 MEQ in IV 1/2 NORMAL SALINE 1,000 ML IV SCH ×2 (01:14→15:34)
[2017-01-06] MEDS: fentaNYL PF VIAL 100 MCG/2 ML VIAL IV PRN (05:33)
[2017-01-06] MEDS: HEPARIN PF for SUB-Q USE 5,000 UNIT/0.5 ML VIAL. SQ SCH ×3 (05:37→20:46)
[2017-01-06] MEDS: PIPERACILLIN/TAZOBACTAM 2.25 GM in IV NORMAL SALINE 50ML 50 ML IV SCH ×3 (05:38→20:31)
[2017-01-06] MEDS ORDERED: MAGNESIUM HYDROXIDE 2,400 MG/30 ML ORAL.SUSP. PO PRN (06:00)
[2017-01-06 06:07] LABS: BASO % 0 % (0-3); EOS % 1 % (0-3); LYMPH # 0.5 x10^3/uL (1.0-4.8); LYMPH % 6 % (24-48); MEAN CORPUSCULAR HEMOGLOBIN 32 pg (25-35); MEAN CORPUSCULAR HGB CONC 34 g/dL (31-37); MEAN CORPUSCULAR VOLUME 94 fL (79-100); MONO % 13 % (0-9); NEUT % 80 % (31-73); PLATELET COUNT 152 x10^3/uL (140-400); RED CELL DISTRIBUTION WIDTH 15.5 % (11.5-14.5); WHITE BLOOD COUNT 9.4 x10^3/uL (4.0-11.0)
[2017-01-06 06:09] LABS: HEMOGLOBIN 6.9 g/dL (13.0-17.5)
[2017-01-06 06:10] LABS: HEMATOCRIT 20.7 % (39.0-53.0)
[2017-01-06 06:14] LABS: CALCIUM 8.2 mg/dL (8.5-10.1); GFR 15.3; POTASSIUM 3.9 mmol/L (3.5-5.1)
[2017-01-06] MEDS: INSULIN ASPART 300 UNITS/3 ML INSULN.PEN SQ SCH ×7 (07:30→21:00)
[2017-01-06] MEDS: INSULIN DETEMIR 300 UNITS/3 ML INSULN.PEN. SQ SCH (08:30)
[2017-01-06] MEDS: LIDOCAINE (700MG/PATCH) PATCH. TD SCH (09:00)
[2017-01-06] MEDS: GABAPENTIN 300 MG CAPSULE. PO SCH ×2 (09:00→20:32)
[2017-01-06] MEDS: SENNOSIDES/DOCUSATE 8.6/50MG TABLET. PO SCH ×3 (09:00→20:32)
[2017-01-06] MEDS: IPRATRPIUM/ALBUTEROL 0.5/2.5MG 3 ML NEBU. NEB SCH ×4 (09:01→19:40)
--- NOTE | 2017-01-06 10:24 | PDOC ---
Infectious Disease Note Subjective Subjective s/p right heel I and D Feeling groggy this morning, otherwise comfortable at the moment No fever last 24 hours ROS ROS GEN: Denies fevers, chills, sweats CV: Denies chest pain RESP: Denies shortness of air, cough GI: Denies n/v/d Vital Sign Vital Signs Vital Signs Date Time Temp Pulse Resp B/P (MAP) Pulse Ox O2 Delivery O2 Flow Rate FiO2 01/06/17 09:04 96 Nasal Cannula 3.0 01/06/17 06:30 18 01/06/17 06:00 89 123/70 (87) 01/06/17 04:00 97.8 97.8 Physical Exam PHYSICAL EXAM GENERAL: Sitting in the chair, NAD LUNGS: Clear anteriorly HEART: S1S2 ABD: Obese, soft, NT EXT: Right foot bandaged. LLE in splint BLOCK CAPTAIN: Alert, Oriented x 3. SKIN: No rash RIJ/HDC. (01/04). clean Labs Lab Laboratory Tests Test 01/05/17 11:24 01/05/17 14:16 01/05/17 16:43 01/05/17 17:19 Glucose (Fingerstick) 103 mg/dL (70-99) 116 mg/dL (70-99) 122 mg/dL (70-99) 126 mg/dL (70-99) Test 01/05/17 20:38 01/06/17 05:15 Glucose (Fingerstick) 174 mg/dL (70-99) White Blood Count 9.4 x10^3/uL (4.0-11.0) Red Blood Count 2.20 x10^6/uL (4.30-5.70) Hemoglobin 6.9 g/dL (13.0-17.5) Hematocrit 20.7 % (39.0-53.0) Mean Corpuscular Volume 94 fL (79-100) Mean Corpuscular Hemoglobin 32 pg (25-35) Mean Corpuscular Hemoglobin Concent 34 g/dL (31-37) Red Cell Distribution Width 15.5 % (11.5-14.5) Platelet Count 152 x10^3/uL (140-400) Neutrophils (%) (Auto) 80 % (31-73) Lymphocytes (%) (Auto) 6 % (24-48) Monocytes (%) (Auto) 13 % (0-9) Eosinophils (%) (Auto) 1 % (0-3) Basophils (%) (Auto) 0 % (0-3) Neutrophils # (Auto) 7.5 x10^3uL (1.8-7.7) Lymphocytes # (Auto) 0.5 x10^3/uL (1.0-4.8) Monocytes # (Auto) 1.2 x10^3/uL (0.0-1.1) Eosinophils # (Auto) 0.1 x10^3/uL (0.0-0.7) Basophils # (Auto) 0.0 x10^3/uL (0.0-0.2) Sodium Level 135 mmol/L (136-145) Potassium Level 3.9 mmol/L (3.5-5.1) Chloride Level 97 mmol/L (98-107) Carbon Dioxide Level 27 mmol/L (21-32) Anion Gap 11 (6-14) Blood Urea Nitrogen 38 mg/dL (8-26) Creatinine 4.0 mg/dL (0.7-1.3) Estimated GFR (Cockcroft-Gault) 15.3 Glucose Level 157 mg/dL (70-99) Calcium Level 8.2 mg/dL (8.5-10.1) Micro BLOOD CULTURE Final GRAM POSITIVE COCCI IN CLUSTERS IN 1 OF 5 BOTTLES(AEROBIC BOTTLE THIS SET);REPRESENTING 3 SETS DRAWN. BLOOD CULTURE PRL Preliminary Preliminary report BLD CULT RESULT 1 Preliminary Comment Coagulase negative Staphylococcus species. Recovered from aerobic bottle only. GROWTH IN 1 OF 3 SETS PROBABLE CONTAMINANT Antibiotic RSLT#1 Ciprofloxacin S Gentamicin S Levofloxacin S Nitrofurantoin S Oxacillin S Penicillin R Rifampin S Tetracycline S Trimethoprim/Sulfa S Vancomycin S URINE CULTURE RES 1 No growth Objective Assessment Gangrenous ulcer of right heel. s/p excisional debridement skin and subcutaneous tissue, 01/05 -MRI shows chronic neuropathic arthropathy changes with hardware in place; no definite evidence of acute osteo noted but cannot ruled out entirely with elevated ESR and WBC. CoNS bacteremia (1 of 5 bottles), 01/03, likely contaminate Leukocytosis, better, Lactic acidosis, better BRYCE on CKD, worse. Now on HD Left ankle nondisplaced fracture, splint in place PVD-mild Severe peripheral neuropathy Uncontrolled Type II diabetes mellitus Morbid obesity, BMI 46 Anemia Plan [facility] for [facility] function D/w Dr. Fatima, HBO in the works Last dose vanc 01/03. Trough 46.4 Received dose steroids pre-op, 01/05 Attending Co-Sign The patient was seen and interviewed as well as examined at the bedside. The chart was reviewed. The case was discussed. Agree with the plan of care. ULISSES CABEZAS APRN Jan 06, 2017 10:24 ROLANDO RUIZ MD Jan 06, 2017 12:49
--- NOTE | 2017-01-06 10:43 | PDOC ---
PROGRESS NOTES Subjective Subjective He feels better. Objective Objective Vital Signs Date Time Temp Pulse Resp B/P (MAP) Pulse Ox O2 Delivery O2 Flow Rate FiO2 01/06/17 09:04 96 Nasal Cannula 3.0 01/06/17 06:30 18 01/06/17 06:00 89 123/70 (87) 01/06/17 04:00 97.8 97.8 Intake and Output 01/06/17 06:59 Intake Total 450 ml Output Total 45 ml Balance 405 ml Intake Oral 250 ml IV Total 200 ml Output Urine Total 45 ml Physical Exam Physical Exam He is sitting up on commode chair at bedside with cam walker boot to left ankle and dressing to right ankle. Assessment Assessment Problems Medical Problems: (1) Diabetic foot ulcer Status: Acute (2) Hyperglycemia Status: Acute (3) Sepsis Status: Acute Plan Plan of Care To resume physical and occupational therapy follow up and get PRAFO boot to right ankle. Comment Review of Relevant I have reviewed the following items lauryn (where applicable) has been applied. Labs Laboratory Tests Test 01/04/17 12:20 01/04/17 17:12 01/04/17 19:55 01/04/17 20:43 Glucose (Fingerstick) 198 mg/dL (70-99) 117 mg/dL (70-99) 208 mg/dL (70-99) White Blood Count 11.3 x10^3/uL (4.0-11.0) Red Blood Count 2.39 x10^6/uL (4.30-5.70) Hemoglobin 7.3 g/dL (13.0-17.5) Hematocrit 22.0 % (39.0-53.0) Mean Corpuscular Volume 92 fL (79-100) Mean Corpuscular Hemoglobin 31 pg (25-35) Mean Corpuscular Hemoglobin Concent 33 g/dL (31-37) Red Cell Distribution Width 15.7 % (11.5-14.5) Platelet Count 148 x10^3/uL (140-400) Sodium Level 136 mmol/L (136-145) Potassium Level 3.6 mmol/L (3.5-5.1) Chloride Level 98 mmol/L (98-107) Carbon Dioxide Level 27 mmol/L (21-32) Anion Gap 11 (6-14) Blood Urea Nitrogen 37 mg/dL (8-26) Creatinine 3.7 mg/dL (0.7-1.3) Estimated GFR (Cockcroft-Gault) 16.7 Glucose Level 183 mg/dL (70-99) Calcium Level 7.7 mg/dL (8.5-10.1) Magnesium Level 1.5 mg/dL (1.8-2.4) Test 01/05/17 05:45 01/05/17 07:51 01/05/17 11:24 01/05/17 14:16 Sodium Level 138 mmol/L (136-145) Potassium Level 4.0 mmol/L (3.5-5.1) Chloride Level 100 mmol/L (98-107) Carbon Dioxide Level 27 mmol/L (21-32) Anion Gap 11 (6-14) Blood Urea Nitrogen 45 mg/dL (8-26) Creatinine 4.6 mg/dL (0.7-1.3) Estimated GFR (Cockcroft-Gault) 13.0 Glucose Level 134 mg/dL (70-99) Calcium Level 7.8 mg/dL (8.5-10.1) Glucose (Fingerstick) 125 mg/dL (70-99) 103 mg/dL (70-99) 116 mg/dL (70-99) Test 01/05/17 16:43 01/05/17 17:19 01/05/17 20:38 01/06/17 05:15 Glucose (Fingerstick) 122 mg/dL (70-99) 126 mg/dL (70-99) 174 mg/dL (70-99) White Blood Count 9.4 x10^3/uL (4.0-11.0) Red Blood Count 2.20 x10^6/uL (4.30-5.70) Hemoglobin 6.9 g/dL (13.0-17.5) Hematocrit 20.7 % (39.0-53.0) Mean Corpuscular Volume 94 fL (79-100) Mean Corpuscular Hemoglobin 32 pg (25-35) Mean Corpuscular Hemoglobin Concent 34 g/dL (31-37) Red Cell Distribution Width 15.5 % (11.5-14.5) Platelet Count 152 x10^3/uL (140-400) Neutrophils (%) (Auto) 80 % (31-73) Lymphocytes (%) (Auto) 6 % (24-48) Monocytes (%) (Auto) 13 % (0-9) Eosinophils (%) (Auto) 1 % (0-3) Basophils (%) (Auto) 0 % (0-3) Neutrophils # (Auto) 7.5 x10^3uL (1.8-7.7) Lymphocytes # (Auto) 0.5 x10^3/uL (1.0-4.8) Monocytes # (Auto) 1.2 x10^3/uL (0.0-1.1) Eosinophils # (Auto) 0.1 x10^3/uL (0.0-0.7) Basophils # (Auto) 0.0 x10^3/uL (0.0-0.2) Sodium Level 135 mmol/L (136-145) Potassium Level 3.9 mmol/L (3.5-5.1) Chloride Level 97 mmol/L (98-107) Carbon Dioxide Level 27 mmol/L (21-32) Anion Gap 11 (6-14) Blood Urea Nitrogen 38 mg/dL (8-26) Creatinine 4.0 mg/dL (0.7-1.3) Estimated GFR (Cockcroft-Gault) 15.3 Glucose Level 157 mg/dL (70-99) Calcium Level 8.2 mg/dL (8.5-10.1) Laboratory Tests Test 01/05/17 11:24 01/05/17 14:16 01/05/17 16:43 01/05/17 17:19 Glucose (Fingerstick) 103 mg/dL (70-99) 116 mg/dL (70-99) 122 mg/dL (70-99) 126 mg/dL (70-99) Test 01/05/17 20:38 01/06/17 05:15 Glucose (Fingerstick) 174 mg/dL (70-99) White Blood Count 9.4 x10^3/uL (4.0-11.0) Red Blood Count 2.20 x10^6/uL (4.30-5.70) Hemoglobin 6.9 g/dL (13.0-17.5) Hematocrit 20.7 % (39.0-53.0) Mean Corpuscular Volume 94 fL (79-100) Mean Corpuscular Hemoglobin 32 pg (25-35) Mean Corpuscular Hemoglobin Concent 34 g/dL (31-37) Red Cell Distribution Width 15.5 % (11.5-14.5) Platelet Count 152 x10^3/uL (140-400) Neutrophils (%) (Auto) 80 % (31-73) Lymphocytes (%) (Auto) 6 % (24-48) Monocytes (%) (Auto) 13 % (0-9) Eosinophils (%) (Auto) 1 % (0-3) Basophils (%) (Auto) 0 % (0-3) Neutrophils # (Auto) 7.5 x10^3uL (1.8-7.7) Lymphocytes # (Auto) 0.5 x10^3/uL (1.0-4.8) Monocytes # (Auto) 1.2 x10^3/uL (0.0-1.1) Eosinophils # (Auto) 0.1 x10^3/uL (0.0-0.7) Basophils # (Auto) 0.0 x10^3/uL (0.0-0.2) Sodium Level 135 mmol/L (136-145) Potassium Level 3.9 mmol/L (3.5-5.1) Chloride Level 97 mmol/L (98-107) Carbon Dioxide Level 27 mmol/L (21-32) Anion Gap 11 (6-14) Blood Urea Nitrogen 38 mg/dL (8-26) Creatinine 4.0 mg/dL (0.7-1.3) Estimated GFR (Cockcroft-Gault) 15.3 Glucose Level 157 mg/dL (70-99) Calcium Level 8.2 mg/dL (8.5-10.1) Microbiology 01/03/17 Blood Culture - Preliminary, Resulted 01/03/17 Blood Culture Result 1 (LIONEL) - Preliminary, Resulted 01/03/17 Antimicrobic Susceptibility - Preliminary, Resulted 01/03/17 Urine Culture - Final, Complete 01/03/17 Urine Culture Result 1 (LIONEL) - Final, Complete Medications Current Medications Sodium Chloride 1,000 ml @ 1,000 mls/hr 1X ONCE IV Last administered on t 23:15; Start 01/01/17 at 23:00; Stop 01/01/17 at 23:59; Status DC Ampicillin Sodium/ Sulbactam Sodium 3 gm/Sodium Chloride 100 ml @ 200 mls/hr 1X ONCE IV Last administered on 01/01/17 23:43; Start 01/02/17 at 00:00; Stop 01/02/17 at 00:29; Status DC Vancomycin HCl (Vanco Per Pharmacy) 1 each PRN DAILY PRN MC SEE COMMENTS Last administered on 01/02/17 13:53; Start 01/01/17 at 23:30; Stop 01/03/17 at 12:11 ; Status DC Vancomycin HCl 2 gm/Sodium Chloride 500 ml @ 250 mls/hr 1X ONCE IV Last administered on 01/02/17 00:32; Start 01/02/17 at 00:00; Stop 01/02/17 at 01:59 ; Status DC Sodium Chloride 1,000 ml @ 2,000 mls/hr Q30M IV Last administered on 04:10; Start 01/02/17 at 00:00; Stop 01/02/17 at 02:15; Status DC Hydrocortisone Acetate (Anucort-Hc) 25 mg 1X ONCE [place] Last administered on 01/01 23:43; Start 01/02/17 at 00:00; Stop 01/02/17 at 00:01; Status DC Hydromorphone HCl (Dilaudid) 1 mg 1X ONCE IV Last administered on 01/02/17 00 :35; Start 01/02/17 at 01:00; Stop 01/02/17 at 01:01; Status DC Ondansetron HCl (Zofran) 4 mg 1X ONCE IV Last administered on 01/02/17 00:35 ; Start 01/02/17 at 01:00; Stop 01/02/17 at 01:01; Status DC Hydromorphone HCl (Dilaudid) 2 mg STK-MED ONCE .ROUTE ; Start 01/02/17 at 00:33 ; Stop 01/02/17 at 00:34; Status DC Ondansetron HCl (Zofran) 4 mg PRN Q8HRS PRN IV NAUSEA/VOMITING; Start 01/02/17 at 01:15; Stop 01/03/17 at 01:14; Status DC Fentanyl Citrate (Fentanyl 2ml Vial) 50 mcg PRN Q2HR PRN IV SEVERE PAIN Last administered on 01/02/17 20:45; Start 01/02/17 at 01:15; Stop 01/03/17 at 01:14 ; Status DC Acetaminophen (Tylenol) 650 mg PRN Q4HRS PRN PO FEVER; Start 01/02/17 at 01:15 ; Stop 01/03/17 at 01:14; Status DC Vancomycin HCl 2 gm/Sodium Chloride 500 ml @ 250 mls/hr Q12H IV Last administered on 01/03/17 00:00; Start 01/02/17 at 12:00; Stop 01/03/17 at 12:11 ; Status DC Vancomycin HCl 1 each 1X ONCE MC Last administered on 01/03/17 11:30; Start 01/03/17 at 11:30; Stop 01/03/17 at 11:31; Status DC Atorvastatin Calcium (Lipitor) 20 mg QHS PO Last administered on 01/05/17 20: 38; Start 01/02/17 at 21:00 Celecoxib (CeleBREX) 200 mg BID PO Last administered on 01/02/17 09:51; Start 01/02/17 at 09:00; Stop 01/02/17 at 10:30; Status DC Vitamin D (Vitamin D3) 1,000 unit DAILY PO Last administered on 01/05/17 09:35 ; Start 01/02/17 at 09:00 Clopidogrel Bisulfate (Plavix) 75 mg DAILY PO Last administered on 01/04/17 12 :22; Start 01/02/17 at 09:00 Losartan Potassium (Cozaar) 50 mg DAILY PO Last administered on 01/03/17 10:41 ; Start 01/02/17 at 09:00; Stop 01/04/17 at 11:25; Status DC Metformin HCl (Glucophage) 500 mg BID PO Last administered on 01/03/17 10:42; Start 01/02/17 at 09:00; Stop 01/04/17 at 11:25; Status DC Tamsulosin HCl (Flomax) 0.4 mg HS PO Last administered on 01/05/17 22:06; Start 01/02/17 at 21:00 Citalopram Hydrobromide (CeleXA) 40 mg DAILY PO Last administered on 01/05/17 09:34; Start 01/02/17 at 09:00 Pantoprazole Sodium (Protonix) 40 mg DAILYAC PO Last administered on 01/05/17 09:35; Start 01/02/17 at 09:00 Gabapentin (Neurontin) 300 mg BID PO Last administered on 01/05/17 20:38; Start 01/02/17 at 09:00 Insulin Aspart (NovoLOG) 23 units TIDAC SQ Last administered on 01/04/17 12:25 ; Start 01/02/17 at 11:30; Stop 01/05/17 at 13:53; Status DC Insulin Aspart (NovoLOG) 0-9 UNITS QIDACHS SQ Last administered on 01/04/17 20 :51; Start 01/02/17 at 11:30 Dextrose (Dextrose 50%-Water Syringe) 12.5 gm PRN Q15MIN PRN IV SEE COMMENTS; Start 01/02/17 at 08:45 Sodium Chloride 1,000 ml @ 100 mls/hr 1X ONCE IV Last administered on 09:50; Start 01/02/17 at 08:45; Stop 01/02/17 at 18:44; Status DC Lidocaine (Lidoderm) 1 patch DAILY TD Last administered on 01/05/17 09:34; Start 01/02/17 at 09:00 Insulin Detemir (Levemir) 40 units DAILY08 SQ Last administered on 01/04/17 09 :57; Start 01/02/17 at 09:00; Stop 01/04/17 at 13:39; Status DC Enoxaparin Sodium (Lovenox Per Pharmacy Prophylaxis Dosing) 1 each PRN DAILY PRN MC SEE COMMENTS; Start 01/02/17 at 09:15; Status Cancel Enoxaparin Sodium (Lovenox 40mg Syringe) 40 mg Q12H SQ Last administered on 21:42; Start 01/02/17 at 10:00; Stop 01/04/17 at 10:18; Status DC Polysaccharide Iron Complex (Niferex 150) 150 mg BID PO Last administered on 20:38; Start 01/02/17 at 12:00 Bisacodyl (Dulcolax Tab) 10 mg DAILY PO Last administered on 01/05/17 09:35; Start 01/02/17 at 12:00 Senna/Docusate Sodium (Senna Plus) 2 tab PRN BID PRN PO CONSTIPATION Last administered on 01/03/17 10:42; Start 01/02/17 at 10:45 Senna/Docusate Sodium (Senna Plus) 1 tab BID PO Last administered on 01/05/17 20:38; Start 01/02/17 at 12:00 Piperacillin Sod/ Tazobactam Sod 3.375 gm/Sodium Chloride 50 ml @ 100 mls/hr Q6H IV Last administered on 01/03/17 10:40; Start 01/02/17 at 16:00; Stop at 12:11; Status DC Sodium Chloride 1,000 ml @ 100 mls/hr Q10H IV ; Start 01/03/17 at 10:45; Stop 01/04/17 at 00:59; Status DC Piperacillin Sod/ Tazobactam Sod 2.25 gm/Sodium Chloride 50 ml @ 100 mls/hr Q8HRS IV Last administered on 01/06/17 05:38; Start 01/03/17 at 14:00 Albuterol/ Ipratropium (Duoneb) 3 ml RTQID NEB Last administered on 01/06/17 09:01; Start 01/03/17 at 16:00 Sodium Chloride 1,000 ml @ 1,000 mls/hr 1X ONCE IV Last administered on 15:16; Start 01/03/17 at 15:15; Stop 01/03/17 at 16:14; Status DC Sodium Bicarbonate 75 meq/Sodium Chloride 1,075 ml @ 75 mls/hr [id number] IV Last administered on 01/04/17 09:52; Start 01/03/17 at 16:00 Sodium Bicarbonate 50 meq 1X ONCE IV Last administered on 01/03/17 16:08; Start 01/03/17 at 16:00; Stop 01/03/17 at 16:15; Status DC Sodium Bicarbonate 50 meq 1X ONCE IV Last administered on 01/03/17 16:09; Start 01/03/17 at 16:00; Stop 01/03/17 at 16:15; Status DC Sodium Bicarbonate 50 meq 1X ONCE IV Last administered on 01/03/17 16:09; Start 01/03/17 at 16:00; Stop 01/03/17 at 16:15; Status DC Sodium Chloride 500 ml @ 500 mls/hr PRN Q4HRS PRN IV HYPOTENSION; Start at 16:00 Acetaminophen (Acetaminophen Supp) 650 mg PRN Q6HRS PRN [place] MILD PAIN / TEMP Last administered on 01/04/17 02:43; Start 01/04/17 at 02:00 Enoxaparin Sodium (Lovenox 40mg Syringe) 40 mg HS SQ ; Start 01/04/17 at 21:00; Stop 01/04/17 at 21:00; Status DC Lidocaine/Sodium Bicarbonate (Buffered Lidocaine 1%) 3 ml 1X ONCE IJ Last administered on 01/04/17 11:50; Start 01/04/17 at 11:30; Stop 01/04/17 at 11:31 ; Status DC Heparin Sodium/ Sodium Chloride 60 unit 1X ONCE IV Last administered on 11:50; Start 01/04/17 at 11:30; Stop 01/04/17 at 11:31; Status DC Heparin Sodium (Porcine) (Heparin Sodium) 2,500 unit 1X ONCE INT CAT Last administered on 01/04/17 11:51; Start 01/04/17 at 11:30; Stop 01/04/17 at 11:31 ; Status DC Heparin Sodium (Porcine) (Heparin Sodium) 10,000 unit STK-MED ONCE .ROUTE ; Start 01/04/17 at 11:22; Stop 01/04/17 at 11:23; Status DC Furosemide (Lasix) 40 mg [id number] IVP ; Start 01/04/17 at 11:30; Stop 01/04/17 at 14:58; Status DC Darbepoetin Robert (Aranesp) 60 mcg [id number] SQ Last administered on 01/04/17 20 :45; Start 01/04/17 at 21:00 Sodium Chloride 1,000 ml @ 1,000 mls/hr Q1H PRN IV hypotension; Start 01/04/17 at 13:02; Stop 01/04/17 at 19:01; Status DC Diphenhydramine HCl (Benadryl) 25 mg 1X PRN PRN IV ITCHING; Start 01/04/17 at 13:15; Stop 01/05/17 at 13:14; Status DC Diphenhydramine HCl (Benadryl) 25 mg 1X PRN PRN IV ITCHING; Start 01/04/17 at 13:15; Stop 01/05/17 at 13:14; Status DC Info (PHARMACY MONITORING -- do not chart) 1 each PRN DAILY PRN MC SEE COMMENTS ; Start 01/04/17 at 13:15; Status UNV Info (PHARMACY MONITORING -- do not chart) 1 each PRN DAILY PRN MC SEE COMMENTS ; Start 01/04/17 at 13:15 Insulin Detemir (Levemir) 45 units DAILY08 SQ Last administered on 01/05/17 09 :37; Start 01/04/17 at 14:00 Heparin Sodium (Porcine) (Heparin Sq) 5,000 unit Q8HRS SQ Last administered on 01/06/17 05:37; Start 01/04/17 at 14:00 Ondansetron HCl (Zofran) 4 mg PRN Q6HRS PRN IV NAUSEA/VOMITING; Start 01/05/17 at 07:00; Stop 01/06/17 at 06:59; Status DC Fentanyl Citrate (Fentanyl 2ml Vial) 25 mcg PRN Q5MIN PRN IV MILD PAIN; Start 01/05/17 at 07:00; Stop 01/06/17 at 06:59; Status DC Fentanyl Citrate (Fentanyl 2ml Vial) 50 mcg PRN Q5MIN PRN IV MODERATE PAIN; Start 01/05/17 at 07:00; Stop 01/06/17 at 06:59; Status DC Ringer's Solution 1,000 ml @ 30 mls/hr Q24H IV ; Start 01/05/17 at 07:00; Stop 01/05/17 at 18:59; Status DC Lidocaine HCl 2 ml PRN 1X PRN ID PRIOR TO IV START; Start 01/05/17 at 07:00; Stop 01/06/17 at 06:59; Status DC Prochlorperazine Edisylate (Compazine) 5 mg PACU PRN PRN IV NAUSEA, MRX1; Start 01/05/17 at 07:00; Stop 01/06/17 at 06:59; Status DC Furosemide (Lasix) 40 mg BID92 IVP Last administered on 01/05/17 18:23; Start 01/04/17 at 21:00 Oxycodone/ Acetaminophen (Percocet 5/325) 1 tab PRN Q4HRS PRN PO PAIN Last administered on 01/04/17 20:44; Start 01/04/17 at 20:30 Fentanyl Citrate (Fentanyl 2ml Vial) 50 mcg PRN Q2HR PRN IV SEVERE PAIN Last administered on 01/06/17 05:33; Start 01/05/17 at 06:00 Sodium Chloride 1,000 ml @ 1,000 mls/hr Q1H PRN IV hypotension; Start 01/05/17 at 11:47; Stop 01/05/17 at 17:46; Status DC Sodium Chloride (Normal Saline Flush) 10 ml 1X PRN PRN IV AP catheter pack; Start 01/05/17 at 12:00; Stop 01/06/17 at 11:59 Sodium Chloride (Normal Saline Flush) 10 ml 1X PRN PRN IV DERMATOLOGY TEACHER catheter pack; Start 01/05/17 at 12:00; Stop 01/06/17 at 11:59 Sodium Chloride 1,000 ml @ 400 mls/hr Q2H30M PRN IV PATENCY; Start 01/05/17 at 11:47; Stop 01/05/17 at 23:46; Status DC Info (PHARMACY MONITORING -- do not chart) 1 each PRN DAILY PRN MC SEE COMMENTS ; Start 01/05/17 at 12:00; Status UNV Info (PHARMACY MONITORING -- do not chart) 1 each PRN DAILY PRN MC SEE COMMENTS ; Start 01/05/17 at 12:00; Status UNV Propofol 20 ml @ As Directed STK-MED ONCE IV ; Start 01/05/17 at 13:42; Stop at 13:43; Status DC Dexamethasone Sodium Phosphate (Decadron) 20 mg STK-MED ONCE .ROUTE ; Start at 13:42; Stop 01/05/17 at 13:43; Status DC Ondansetron HCl (Zofran) 4 mg STK-MED ONCE .ROUTE ; Start 01/05/17 at 13:42; Stop 01/05/17 at 13:43; Status DC Lidocaine HCl (Lidocaine Pf 2% Vial) 5 ml STK-MED ONCE .ROUTE ; Start 01/05/17 at 13:42; Stop 01/05/17 at 13:43; Status DC Insulin Aspart (NovoLOG) 15 units TIDAC SQ Last administered on 01/05/17 18:44 ; Start 01/05/17 at 16:30 Fentanyl Citrate (Fentanyl 2ml Vial) 100 mcg STK-MED ONCE .ROUTE ; Start at 14:28; Stop 01/05/17 at 14:29; Status DC Midazolam HCl (Versed) 2 mg STK-MED ONCE .ROUTE ; Start 01/05/17 at 14:28; Stop 01/05/17 at 14:29; Status DC Desflurane (Suprane) 30 ml STK-MED ONCE IH ; Start 01/05/17 at 15:05; Stop 01/05 at 15:06; Status DC Oxycodone HCl (Roxicodone) 5 mg PRN Q3HRS PRN PO PAIN; Start 01/05/17 at 15:30 Fentanyl Citrate (Fentanyl 2ml Vial) 25 mcg PRN Q1HR PRN IV PAIN; Start at 15:30 Senna/Docusate Sodium (Senna Plus) 1 tab DAILY PO ; Start 01/06/17 at 09:00 Polyethylene Glycol (miraLAX PACKET) 17 gm PRN DAILY PRN PO CONSTIPATION; Start 01/05/17 at 15:30 Ondansetron HCl (Zofran) 4 mg PRN Q4HRS PRN IV NAUSEA/VOMITING; Start 01/05/17 at 15:30 Magnesium Hydroxide (Milk Of Magnesia) 2,400 mg 1X PRN PRN PO CONSTIPATION; Start 01/06/17 at 06:00; Stop 01/07/17 at 05:59 Bisacodyl (Dulcolax Supp) 10 mg 1X PRN PRN [place] CONSTIPATION; Start 01/06/17 at 16:00; Stop 01/07/17 at 15:59 Acetaminophen/ Hydrocodone Bitart (Lortab 7.5/325) 1 tab PRN Q4HRS PRN PO PAIN ; Start 01/05/17 at 15:30 Dextrose (Dextrose 50%-Water Syringe) 12.5 gm PRN Q15MIN PRN IV SEE COMMENTS; Start 01/05/17 at 15:30 Active Scripts Active Reported Humalog (Insulin Lispro) 100 Unit/1 Ml Cartridge 23 Unit SQ TIDAC Vitamin D3 (Cholecalciferol (Vitamin D3)) 1,000 Unit Tablet 1 Tab PO DAILY Nexium Capsule (Esomeprazole Magnesium) 40 Mg Capsule.dr 1 Cap PO DAILY Losartan Potassium 50 Mg Tablet 50 Mg PO DAILY Gabapentin 300 Mg Capsule 300 Mg PO BID Celebrex (Celecoxib) 200 Mg Capsule 200 Mg PO BID 30 Days Citalopram Hbr (Citalopram Hydrobromide) 40 Mg Tablet 40 Mg PO DAILY Lipitor (Atorvastatin Calcium) 20 Mg Tablet 20 Mg PO QHS Flomax (Tamsulosin Hcl) 0.4 Mg Cap.er.24h 0.4 Mg PO HS Metformin Hcl 500 Mg Tablet 500 Mg PO BID Plavix (Clopidogrel Bisulfate) 75 Mg Tablet 75 Mg PO DAILY Vitals/I & O Vital Sign - Last 24 Hours 01/05/17 01/05/17 01/05/17 01/05/17 11:00 12:00 12:00 12:53 Temp 98.0 98.0 Pulse 90 90 Resp 19 B/P (MAP) 111/56 (74) 153/75 (101) Pulse Ox 98 93 O2 Delivery Nasal Cannula Nasal Cannula Nasal Cannula Nasal Cannula O2 Flow Rate 4.0 4.0 4.0 4.0 01/05/17 01/05/17 01/05/17 01/05/17 14:01 15:19 15:19 15:34 Temp 99.9 97.8 99.9 97.8 Pulse 85 98 96 Resp 18 20 20 B/P (MAP) 117/61 (79) 144/90 121/62 Pulse Ox 95 90 97 O2 Delivery Nasal Cannula Simple Mask Mask O2 Flow Rate 4.0 10 10 10 01/05/17 01/05/17 01/05/17 01/05/17 15:59 16:00 16:07 16:22 Temp 98.1 98.1 Pulse 92 92 91 Resp 20 20 B/P (MAP) 125/77 125/77 136/83 Pulse Ox 91 94 94 O2 Delivery Room Air Nasal Cannula Nasal Cannula O2 Flow Rate 10.0 2 2 01/05/17 01/05/17 01/05/17 01/05/17 16:37 17:12 18:04 19:00 Temp 97.5 97.7 97.7 97.5 97.7 97.7 Pulse 92 72 72 94 Resp 20 18 18 13 B/P (MAP) 153/85 151/88 (109) 120/70 (87) 120/70 (87) Pulse Ox 95 95 95 95 O2 Delivery Nasal Cannula Nasal Cannula Nasal Cannula Nasal Cannula O2 Flow Rate 3 4.0 4.0 4.0 01/05/17 01/05/17 01/05/17 01/05/17 19:07 20:00 20:00 20:00 Temp 98.1 98.1 Pulse 94 Resp 15 B/P (MAP) 133/74 (93) Pulse Ox 95 O2 Delivery Nasal Cannula Nasal Cannula Nasal Cannula O2 Flow Rate 4.0 4.0 4.0 01/05/17 01/05/17 01/05/17 01/05/17 20:13 20:39 21:00 22:00 Pulse 90 92 Resp 20 14 B/P (MAP) 101/62 (75) 100/51 (67) Pulse Ox 98 95 94 91 O2 Delivery Nasal Cannula Nasal Cannula Nasal Cannula O2 Flow Rate 3.0 4.0 4.0 01/05/17 01/05/17 01/06/17 01/06/17 23:00 23:08 00:00 00:00 Pulse 91 Resp 12 B/P (MAP) 91/49 (63) Pulse Ox 100 98 O2 Delivery BiPAP/CPAP Nasal Cannula O2 Flow Rate 4.0 4.0 01/06/17 01/06/17 01/06/17 01/06/17 00:00 01:00 02:00 03:00 Temp 98.4 98.4 Pulse 88 90 89 91 Resp 21 16 19 19 B/P (MAP) 126/70 (88) 122/75 (91) 139/78 (98) 135/74 (94) Pulse Ox 97 95 91 96 O2 Delivery BiPAP/CPAP Nasal Cannula Nasal Cannula Nasal Cannula O2 Flow Rate 4.0 4.0 4.0 01/06/17 01/06/17 01/06/17 01/06/17 03:50 04:00 04:00 05:00 Temp 97.8 97.8 Pulse 89 92 Resp 12 19 B/P (MAP) 133/77 (95) 133/71 (91) Pulse Ox 92 96 O2 Delivery Nasal Cannula Nasal Cannula Nasal Cannula O2 Flow Rate 4.0 4.0 4.0 4.0 01/06/17 01/06/17 01/06/17 01/06/17 05:00 05:33 06:00 06:30 Pulse 91 89 Resp 15 20 16 18 B/P (MAP) 133/71 (91) 123/70 (87) Pulse Ox 91 97 98 O2 Delivery Nasal Cannula Nasal Cannula Nasal Cannula Nasal Cannula O2 Flow Rate 4.0 4.0 4.0 4.0 01/06/17 09:04 Pulse Ox 96 O2 Delivery Nasal Cannula O2 Flow Rate 3.0 Intake and Output 01/05/17 01/05/17 01/06/17 14:59 22:59 06:59 Intake Total 150 ml 250 ml 50 ml Output Total 0 ml 15 ml 30 ml Balance 150 ml 235 ml 20 ml Nutrition Consultation Dietary Evaluation: Recommendations by RD: Increase Calorie Intake Comments: Rec. resume the ada diet as medically appropriate rec. 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
--- NOTE | 2017-01-06 12:05 | PDOC ---
PULMONARY PROGRESS NOTES Subjective NO RESP COMPLAINTS Vitals Vital Signs Date Time Temp Pulse Resp B/P (MAP) Pulse Ox O2 Delivery O2 Flow Rate FiO2 01/06/17 09:04 96 Nasal Cannula 3.0 01/06/17 08:00 98.5 119/67 (84) 98.5 01/06/17 06:30 18 01/06/17 06:00 89 ROS: No Nausea, No Chest Pain, No Increase Cough General: Alert Lungs: Crackles Cardiovascular: S1, S2 Abdomen: Other (OBESE) Neuro Exam: Alert, Oriented Extremities: Other (EDEMA) Skin: Warm, Dry Labs Laboratory Tests Test 01/04/17 12:20 01/04/17 17:12 01/04/17 19:55 01/04/17 20:43 Glucose (Fingerstick) 198 mg/dL (70-99) 117 mg/dL (70-99) 208 mg/dL (70-99) White Blood Count 11.3 x10^3/uL (4.0-11.0) Red Blood Count 2.39 x10^6/uL (4.30-5.70) Hemoglobin 7.3 g/dL (13.0-17.5) Hematocrit 22.0 % (39.0-53.0) Mean Corpuscular Volume 92 fL (79-100) Mean Corpuscular Hemoglobin 31 pg (25-35) Mean Corpuscular Hemoglobin Concent 33 g/dL (31-37) Red Cell Distribution Width 15.7 % (11.5-14.5) Platelet Count 148 x10^3/uL (140-400) Sodium Level 136 mmol/L (136-145) Potassium Level 3.6 mmol/L (3.5-5.1) Chloride Level 98 mmol/L (98-107) Carbon Dioxide Level 27 mmol/L (21-32) Anion Gap 11 (6-14) Blood Urea Nitrogen 37 mg/dL (8-26) Creatinine 3.7 mg/dL (0.7-1.3) Estimated GFR (Cockcroft-Gault) 16.7 Glucose Level 183 mg/dL (70-99) Calcium Level 7.7 mg/dL (8.5-10.1) Magnesium Level 1.5 mg/dL (1.8-2.4) Test 01/05/17 05:45 01/05/17 07:51 01/05/17 11:24 01/05/17 14:16 Sodium Level 138 mmol/L (136-145) Potassium Level 4.0 mmol/L (3.5-5.1) Chloride Level 100 mmol/L (98-107) Carbon Dioxide Level 27 mmol/L (21-32) Anion Gap 11 (6-14) Blood Urea Nitrogen 45 mg/dL (8-26) Creatinine 4.6 mg/dL (0.7-1.3) Estimated GFR (Cockcroft-Gault) 13.0 Glucose Level 134 mg/dL (70-99) Calcium Level 7.8 mg/dL (8.5-10.1) Glucose (Fingerstick) 125 mg/dL (70-99) 103 mg/dL (70-99) 116 mg/dL (70-99) Test 01/05/17 16:43 01/05/17 17:19 01/05/17 20:38 01/06/17 05:15 Glucose (Fingerstick) 122 mg/dL (70-99) 126 mg/dL (70-99) 174 mg/dL (70-99) White Blood Count 9.4 x10^3/uL (4.0-11.0) Red Blood Count 2.20 x10^6/uL (4.30-5.70) Hemoglobin 6.9 g/dL (13.0-17.5) Hematocrit 20.7 % (39.0-53.0) Mean Corpuscular Volume 94 fL (79-100) Mean Corpuscular Hemoglobin 32 pg (25-35) Mean Corpuscular Hemoglobin Concent 34 g/dL (31-37) Red Cell Distribution Width 15.5 % (11.5-14.5) Platelet Count 152 x10^3/uL (140-400) Neutrophils (%) (Auto) 80 % (31-73) Lymphocytes (%) (Auto) 6 % (24-48) Monocytes (%) (Auto) 13 % (0-9) Eosinophils (%) (Auto) 1 % (0-3) Basophils (%) (Auto) 0 % (0-3) Neutrophils # (Auto) 7.5 x10^3uL (1.8-7.7) Lymphocytes # (Auto) 0.5 x10^3/uL (1.0-4.8) Monocytes # (Auto) 1.2 x10^3/uL (0.0-1.1) Eosinophils # (Auto) 0.1 x10^3/uL (0.0-0.7) Basophils # (Auto) 0.0 x10^3/uL (0.0-0.2) Sodium Level 135 mmol/L (136-145) Potassium Level 3.9 mmol/L (3.5-5.1) Chloride Level 97 mmol/L (98-107) Carbon Dioxide Level 27 mmol/L (21-32) Anion Gap 11 (6-14) Blood Urea Nitrogen 38 mg/dL (8-26) Creatinine 4.0 mg/dL (0.7-1.3) Estimated GFR (Cockcroft-Gault) 15.3 Glucose Level 157 mg/dL (70-99) Calcium Level 8.2 mg/dL (8.5-10.1) Laboratory Tests Test 01/05/17 14:16 01/05/17 16:43 01/05/17 17:19 01/05/17 20:38 Glucose (Fingerstick) 116 mg/dL (70-99) 122 mg/dL (70-99) 126 mg/dL (70-99) 174 mg/dL (70-99) Test 01/06/17 05:15 White Blood Count 9.4 x10^3/uL (4.0-11.0) Red Blood Count 2.20 x10^6/uL (4.30-5.70) Hemoglobin 6.9 g/dL (13.0-17.5) Hematocrit 20.7 % (39.0-53.0) Mean Corpuscular Volume 94 fL (79-100) Mean Corpuscular Hemoglobin 32 pg (25-35) Mean Corpuscular Hemoglobin Concent 34 g/dL (31-37) Red Cell Distribution Width 15.5 % (11.5-14.5) Platelet Count 152 x10^3/uL (140-400) Neutrophils (%) (Auto) 80 % (31-73) Lymphocytes (%) (Auto) 6 % (24-48) Monocytes (%) (Auto) 13 % (0-9) Eosinophils (%) (Auto) 1 % (0-3) Basophils (%) (Auto) 0 % (0-3) Neutrophils # (Auto) 7.5 x10^3uL (1.8-7.7) Lymphocytes # (Auto) 0.5 x10^3/uL (1.0-4.8) Monocytes # (Auto) 1.2 x10^3/uL (0.0-1.1) Eosinophils # (Auto) 0.1 x10^3/uL (0.0-0.7) Basophils # (Auto) 0.0 x10^3/uL (0.0-0.2) Sodium Level 135 mmol/L (136-145) Potassium Level 3.9 mmol/L (3.5-5.1) Chloride Level 97 mmol/L (98-107) Carbon Dioxide Level 27 mmol/L (21-32) Anion Gap 11 (6-14) Blood Urea Nitrogen 38 mg/dL (8-26) Creatinine 4.0 mg/dL (0.7-1.3) Estimated GFR (Cockcroft-Gault) 15.3 Glucose Level 157 mg/dL (70-99) Calcium Level 8.2 mg/dL (8.5-10.1) Medications Active Scripts Medications Dose Route/Sig Max Daily Dose Days Date Category Humalog (Insulin Lispro) 100 Unit/1 Ml Cartridge 23 Unit SQ TIDAC 01/02/17 Reported Vitamin D3 (Cholecalciferol (Vitamin D3)) 1,000 Unit Tablet 1 Tab PO DAILY 01/02/17 Reported Nexium Capsule (Esomeprazole Magnesium) 40 Mg Capsule.dr 1 Cap PO DAILY 01/02/17 Reported Losartan Potassium 50 Mg Tablet 50 Mg PO DAILY 01/02/17 Reported Gabapentin 300 Mg Capsule 300 Mg PO BID 01/02/17 Reported Celebrex (Celecoxib) 200 Mg Capsule 200 Mg PO BID 30 01/02/17 Reported Citalopram Hbr (Citalopram Hydrobromide) 40 Mg Tablet 40 Mg PO DAILY 06/09/13 Reported Lipitor (Atorvastatin Calcium) 20 Mg Tablet 20 Mg PO QHS 06/09/13 Reported Flomax (Tamsulosin Hcl) 0.4 Mg Cap.er.24h 0.4 Mg PO HS 06/09/13 Reported Metformin Hcl 500 Mg Tablet 500 Mg PO BID 06/09/13 Reported Plavix (Clopidogrel Bisulfate) 75 Mg Tablet 75 Mg PO DAILY 06/09/13 Reported Impression . IMPRESSION: 1. Acute hypoxemic respiratory failure. 2. Met /toxic encephalopathy 3. Metabolic acidosis 4. Acute kidney injury. 5. Chronic kidney disease. 6. Diabetes mellitus. 7. Hypertension. 8. Obstructive sleep apnea-hypopnea syndrome. 9. Diabetic foot. Plan . TRANSFER OUT OF ICU HD PER NEPHRO BIPAP QHS AND PRN ANTIBX DVT PROPH MAY NEED BIPAP AT HOME FAILED CPAP ANDERS DESIR MD Jan 06, 2017 12:05
[2017-01-06] MEDS ORDERED: IV NORMAL SALINE 1000ML BAG 1,000 ML IV PRN (12:10)
[2017-01-06] MEDS ORDERED: diphenhydrAMINE 50 MG/ML VIAL IV PRN ×2 (12:15)
[2017-01-06] MEDS ORDERED: DIALYSIS PATIENT. MC PRN (12:15)
[2017-01-06] MEDS: CITALOPRAM 20 MG TABLET. PO SCH (12:34)
[2017-01-06] MEDS: BISACODYL 5 MG TABLET.DR. PO SCH (12:34)
[2017-01-06] MEDS: CHOLECALCIFEROL (VITAMIN D3) 1,000 UNIT TABLET PO SCH (12:35)
[2017-01-06] MEDS: PANTOPRAZOLE 40 MG TABLET.DR. PO SCH (12:35)
[2017-01-06] MEDS: CLOPIDOGREL BISULFATE 75 MG TABLET PO SCH (12:35)
[2017-01-06] MEDS: IRON POLYSACCHARIDE COMPLEX 150 MG CAPSULE PO SCH ×2 (12:36→20:32)
--- NOTE | 2017-01-06 12:42 | PDOC ---
PROGRESS NOTES Chief Complaint Chief Complaint Chief complaint: Right lower extremity ulcer Assessment and plan Altered mental status,: Unclear etiology, suspected due to hyperglycemia and acidosis, metabolic encephalopathy with BRYCE Right lower extremity heel ulcer, osteomyelitis ruled out: Imaging studies reviewed discussed with Dr. Biswas, orthopedics is planning for a debridement and the VAC placement. Elevated WBC: Continue current antibiotics Zosyn and vancomycin, fu with ID Metabolic acidosis: Likely related to infection: Ordered blood cultures, and all of temperature spike this morning Acute kidney injury: fu with renal ,new HD 01/04 Type 2 diabetes mellitus with hyperglycemia: Sliding scale insulin, increase levemir ot 45u daily, decrease aspart to 15u tid. Chronic kidney disease unknown baseline : Morbid obesity with sleep apnea: Try BiPAP based on ABGs Peripheral artery disease: Arterial ultrasound reviewed and venous Doppler revealed no DVTs discussed with Dr. Biswas, no plans for angiography based on renal functions at this time. Anemia, chronic dz, 1u PRBC 01/06 1/5 + bacteremia, LIKELY CONtamination, fu with ID, on zosyn cont HD x3ds now, fu with vascular, need i and d eventually, monitor glucose, Hb , on ZOSYN, ok to transfer out of ICU. PTOT History of Present Illness History of Present Illness higher Cr, oliguria, HD start from 01/04, 01/05, 01/06 chronic right heel unhealing wound forgetful, cough with mucus hyperglycemia better hb6.9 today, 1u PrBC Vitals Vitals Vital Signs Date Time Temp Pulse Resp B/P (MAP) Pulse Ox O2 Delivery O2 Flow Rate FiO2 01/06/17 09:04 96 Nasal Cannula 3.0 01/06/17 08:00 98.5 119/67 (84) 98.5 01/06/17 06:30 18 01/06/17 06:00 89 Physical Exam General: Alert, Oriented X3, Cooperative, No acute distress Heart: Regular rate, Normal S1 Lungs: Crackles Abdomen: Normal bowel sounds, Soft, No tenderness Extremities: No clubbing Skin: Other (RIGHT FOOT GANGRENE) Labs LABS Laboratory Tests Test 01/05/17 14:16 01/05/17 16:43 01/05/17 17:19 01/05/17 20:38 Glucose (Fingerstick) 116 mg/dL (70-99) 122 mg/dL (70-99) 126 mg/dL (70-99) 174 mg/dL (70-99) Test 01/06/17 05:15 01/06/17 12:08 White Blood Count 9.4 x10^3/uL (4.0-11.0) Red Blood Count 2.20 x10^6/uL (4.30-5.70) Hemoglobin 6.9 g/dL (13.0-17.5) Hematocrit 20.7 % (39.0-53.0) Mean Corpuscular Volume 94 fL (79-100) Mean Corpuscular Hemoglobin 32 pg (25-35) Mean Corpuscular Hemoglobin Concent 34 g/dL (31-37) Red Cell Distribution Width 15.5 % (11.5-14.5) Platelet Count 152 x10^3/uL (140-400) Neutrophils (%) (Auto) 80 % (31-73) Lymphocytes (%) (Auto) 6 % (24-48) Monocytes (%) (Auto) 13 % (0-9) Eosinophils (%) (Auto) 1 % (0-3) Basophils (%) (Auto) 0 % (0-3) Neutrophils # (Auto) 7.5 x10^3uL (1.8-7.7) Lymphocytes # (Auto) 0.5 x10^3/uL (1.0-4.8) Monocytes # (Auto) 1.2 x10^3/uL (0.0-1.1) Eosinophils # (Auto) 0.1 x10^3/uL (0.0-0.7) Basophils # (Auto) 0.0 x10^3/uL (0.0-0.2) Sodium Level 135 mmol/L (136-145) Potassium Level 3.9 mmol/L (3.5-5.1) Chloride Level 97 mmol/L (98-107) Carbon Dioxide Level 27 mmol/L (21-32) Anion Gap 11 (6-14) Blood Urea Nitrogen 38 mg/dL (8-26) Creatinine 4.0 mg/dL (0.7-1.3) Estimated GFR (Cockcroft-Gault) 15.3 Glucose Level 157 mg/dL (70-99) Calcium Level 8.2 mg/dL (8.5-10.1) Glucose (Fingerstick) 257 mg/dL (70-99) Review of Systems Review of Systems no fever, chills, sob or chest pain Assessment and Plan Assessmemt and Plan Problems Medical Problems: (1) Diabetic foot ulcer Status: Acute (2) Hyperglycemia Status: Acute (3) Sepsis Status: Acute Problems: Comment Review of Relevant I have reviewed the following items lauryn (where applicable) has been applied. Labs Laboratory Tests Test 01/04/17 17:12 01/04/17 19:55 01/04/17 20:43 01/05/17 05:45 Glucose (Fingerstick) 117 mg/dL (70-99) 208 mg/dL (70-99) White Blood Count 11.3 x10^3/uL (4.0-11.0) Red Blood Count 2.39 x10^6/uL (4.30-5.70) Hemoglobin 7.3 g/dL (13.0-17.5) Hematocrit 22.0 % (39.0-53.0) Mean Corpuscular Volume 92 fL (79-100) Mean Corpuscular Hemoglobin 31 pg (25-35) Mean Corpuscular Hemoglobin Concent 33 g/dL (31-37) Red Cell Distribution Width 15.7 % (11.5-14.5) Platelet Count 148 x10^3/uL (140-400) Sodium Level 136 mmol/L (136-145) 138 mmol/L (136-145) Potassium Level 3.6 mmol/L (3.5-5.1) 4.0 mmol/L (3.5-5.1) Chloride Level 98 mmol/L (98-107) 100 mmol/L (98-107) Carbon Dioxide Level 27 mmol/L (21-32) 27 mmol/L (21-32) Anion Gap 11 (6-14) 11 (6-14) Blood Urea Nitrogen 37 mg/dL (8-26) 45 mg/dL (8-26) Creatinine 3.7 mg/dL (0.7-1.3) 4.6 mg/dL (0.7-1.3) Estimated GFR (Cockcroft-Gault) 16.7 13.0 Glucose Level 183 mg/dL (70-99) 134 mg/dL (70-99) Calcium Level 7.7 mg/dL (8.5-10.1) 7.8 mg/dL (8.5-10.1) Magnesium Level 1.5 mg/dL (1.8-2.4) Test 01/05/17 07:51 01/05/17 11:24 01/05/17 14:16 01/05/17 16:43 Glucose (Fingerstick) 125 mg/dL (70-99) 103 mg/dL (70-99) 116 mg/dL (70-99) 122 mg/dL (70-99) Test 01/05/17 17:19 01/05/17 20:38 01/06/17 05:15 01/06/17 12:08 Glucose (Fingerstick) 126 mg/dL (70-99) 174 mg/dL (70-99) 257 mg/dL (70-99) White Blood Count 9.4 x10^3/uL (4.0-11.0) Red Blood Count 2.20 x10^6/uL (4.30-5.70) Hemoglobin 6.9 g/dL (13.0-17.5) Hematocrit 20.7 % (39.0-53.0) Mean Corpuscular Volume 94 fL (79-100) Mean Corpuscular Hemoglobin 32 pg (25-35) Mean Corpuscular Hemoglobin Concent 34 g/dL (31-37) Red Cell Distribution Width 15.5 % (11.5-14.5) Platelet Count 152 x10^3/uL (140-400) Neutrophils (%) (Auto) 80 % (31-73) Lymphocytes (%) (Auto) 6 % (24-48) Monocytes (%) (Auto) 13 % (0-9) Eosinophils (%) (Auto) 1 % (0-3) Basophils (%) (Auto) 0 % (0-3) Neutrophils # (Auto) 7.5 x10^3uL (1.8-7.7) Lymphocytes # (Auto) 0.5 x10^3/uL (1.0-4.8) Monocytes # (Auto) 1.2 x10^3/uL (0.0-1.1) Eosinophils # (Auto) 0.1 x10^3/uL (0.0-0.7) Basophils # (Auto) 0.0 x10^3/uL (0.0-0.2) Sodium Level 135 mmol/L (136-145) Potassium Level 3.9 mmol/L (3.5-5.1) Chloride Level 97 mmol/L (98-107) Carbon Dioxide Level 27 mmol/L (21-32) Anion Gap 11 (6-14) Blood Urea Nitrogen 38 mg/dL (8-26) Creatinine 4.0 mg/dL (0.7-1.3) Estimated GFR (Cockcroft-Gault) 15.3 Glucose Level 157 mg/dL (70-99) Calcium Level 8.2 mg/dL (8.5-10.1) Laboratory Tests Test 01/05/17 14:16 01/05/17 16:43 01/05/17 17:19 01/05/17 20:38 Glucose (Fingerstick) 116 mg/dL (70-99) 122 mg/dL (70-99) 126 mg/dL (70-99) 174 mg/dL (70-99) Test 01/06/17 05:15 01/06/17 12:08 White Blood Count 9.4 x10^3/uL (4.0-11.0) Red Blood Count 2.20 x10^6/uL (4.30-5.70) Hemoglobin 6.9 g/dL (13.0-17.5) Hematocrit 20.7 % (39.0-53.0) Mean Corpuscular Volume 94 fL (79-100) Mean Corpuscular Hemoglobin 32 pg (25-35) Mean Corpuscular Hemoglobin Concent 34 g/dL (31-37) Red Cell Distribution Width 15.5 % (11.5-14.5) Platelet Count 152 x10^3/uL (140-400) Neutrophils (%) (Auto) 80 % (31-73) Lymphocytes (%) (Auto) 6 % (24-48) Monocytes (%) (Auto) 13 % (0-9) Eosinophils (%) (Auto) 1 % (0-3) Basophils (%) (Auto) 0 % (0-3) Neutrophils # (Auto) 7.5 x10^3uL (1.8-7.7) Lymphocytes # (Auto) 0.5 x10^3/uL (1.0-4.8) Monocytes # (Auto) 1.2 x10^3/uL (0.0-1.1) Eosinophils # (Auto) 0.1 x10^3/uL (0.0-0.7) Basophils # (Auto) 0.0 x10^3/uL (0.0-0.2) Sodium Level 135 mmol/L (136-145) Potassium Level 3.9 mmol/L (3.5-5.1) Chloride Level 97 mmol/L (98-107) Carbon Dioxide Level 27 mmol/L (21-32) Anion Gap 11 (6-14) Blood Urea Nitrogen 38 mg/dL (8-26) Creatinine 4.0 mg/dL (0.7-1.3) Estimated GFR (Cockcroft-Gault) 15.3 Glucose Level 157 mg/dL (70-99) Calcium Level 8.2 mg/dL (8.5-10.1) Glucose (Fingerstick) 257 mg/dL (70-99) Microbiology 01/03/17 Blood Culture - Preliminary, Resulted 01/03/17 Blood Culture Result 1 (LIONEL) - Preliminary, Resulted 01/03/17 Antimicrobic Susceptibility - Preliminary, Resulted 01/03/17 Urine Culture - Final, Complete 01/03/17 Urine Culture Result 1 (LIONEL) - Final, Complete Medications Current Medications Sodium Chloride 1,000 ml @ 1,000 mls/hr 1X ONCE IV Last administered on 23:15; Start 01/01/17 at 23:00; Stop 01/01/17 at 23:59; Status DC Ampicillin Sodium/ Sulbactam Sodium 3 gm/Sodium Chloride 100 ml @ 200 mls/hr 1X ONCE IV Last administered on 01/01/17 23:43; Start 01/02/17 at 00:00; Stop 01/02/17 at 00:29; Status DC Vancomycin HCl (Vanco Per Pharmacy) 1 each PRN DAILY PRN MC SEE COMMENTS Last administered on 01/02/17 13:53; Start 01/01/17 at 23:30; Stop 01/03/17 at 12:11 ; Status DC Vancomycin HCl 2 gm/Sodium Chloride 500 ml @ 250 mls/hr 1X ONCE IV Last administered on 01/02/17 00:32; Start 01/02/17 at 00:00; Stop 01/02/17 at 01:59 ; Status DC Sodium Chloride 1,000 ml @ 2,000 mls/hr Q30M IV Last administered on 04:10; Start 01/02/17 at 00:00; Stop 01/02/17 at 02:15; Status DC Hydrocortisone Acetate (Anucort-Hc) 25 mg 1X ONCE MT Last administered on 01/01 23:43; Start 01/02/17 at 00:00; Stop 01/02/17 at 00:01; Status DC Hydromorphone HCl (Dilaudid) 1 mg 1X ONCE IV Last administered on 01/02/17 00 :35; Start 01/02/17 at 01:00; Stop 01/02/17 at 01:01; Status DC Ondansetron HCl (Zofran) 4 mg 1X ONCE IV Last administered on 01/02/17 00:35 ; Start 01/02/17 at 01:00; Stop 01/02/17 at 01:01; Status DC Hydromorphone HCl (Dilaudid) 2 mg STK-MED ONCE .ROUTE ; Start 01/02/17 at 00:33 ; Stop 01/02/17 at 00:34; Status DC Ondansetron HCl (Zofran) 4 mg PRN Q8HRS PRN IV NAUSEA/VOMITING; Start 01/02/17 at 01:15; Stop 01/03/17 at 01:14; Status DC Fentanyl Citrate (Fentanyl 2ml Vial) 50 mcg PRN Q2HR PRN IV SEVERE PAIN Last administered on 01/02/17 20:45; Start 01/02/17 at 01:15; Stop 01/03/17 at 01:14 ; Status DC Acetaminophen (Tylenol) 650 mg PRN Q4HRS PRN PO FEVER; Start 01/02/17 at 01:15 ; Stop 01/03/17 at 01:14; Status DC Vancomycin HCl 2 gm/Sodium Chloride 500 ml @ 250 mls/hr Q12H IV Last administered on 01/03/17 00:00; Start 01/02/17 at 12:00; Stop 01/03/17 at 12:11 ; Status DC Vancomycin HCl 1 each 1X ONCE MC Last administered on 01/03/17 11:30; Start 01/03/17 at 11:30; Stop 01/03/17 at 11:31; Status DC Atorvastatin Calcium (Lipitor) 20 mg QHS PO Last administered on 01/05/17 20: 38; Start 01/02/17 at 21:00 Celecoxib (CeleBREX) 200 mg BID PO Last administered on 01/02/17 09:51; Start 01/02/17 at 09:00; Stop 01/02/17 at 10:30; Status DC Vitamin D (Vitamin D3) 1,000 unit DAILY PO Last administered on 01/06/17 12:35 ; Start 01/02/17 at 09:00 Clopidogrel Bisulfate (Plavix) 75 mg DAILY PO Last administered on 01/06/17 12 :35; Start 01/02/17 at 09:00 Losartan Potassium (Cozaar) 50 mg DAILY PO Last administered on 01/03/17 10:41 ; Start 01/02/17 at 09:00; Stop 01/04/17 at 11:25; Status DC Metformin HCl (Glucophage) 500 mg BID PO Last administered on 01/03/17 10:42; Start 01/02/17 at 09:00; Stop 01/04/17 at 11:25; Status DC Tamsulosin HCl (Flomax) 0.4 mg HS PO Last administered on 01/05/17 22:06; Start 01/02/17 at 21:00 Citalopram Hydrobromide (CeleXA) 40 mg DAILY PO Last administered on 01/06/17 12:34; Start 01/02/17 at 09:00 Pantoprazole Sodium (Protonix) 40 mg DAILYAC PO Last administered on 01/06/17 12:35; Start 01/02/17 at 09:00 Gabapentin (Neurontin) 300 mg BID PO Last administered on 01/05/17 20:38; Start 01/02/17 at 09:00 Insulin Aspart (NovoLOG) 23 units TIDAC SQ Last administered on 01/04/17 12:25 ; Start 01/02/17 at 11:30; Stop 01/05/17 at 13:53; Status DC Insulin Aspart (NovoLOG) 0-9 UNITS QIDACHS SQ Last administered on 01/06/17 12 :28; Start 01/02/17 at 11:30 Dextrose (Dextrose 50%-Water Syringe) 12.5 gm PRN Q15MIN PRN IV SEE COMMENTS; Start 01/02/17 at 08:45 Sodium Chloride 1,000 ml @ 100 mls/hr 1X ONCE IV Last administered on 09:50; Start 01/02/17 at 08:45; Stop 01/02/17 at 18:44; Status DC Lidocaine (Lidoderm) 1 patch DAILY TD Last administered on 01/05/17 09:34; Start 01/02/17 at 09:00 Insulin Detemir (Levemir) 40 units DAILY08 SQ Last administered on 01/04/17 09 :57; Start 01/02/17 at 09:00; Stop 01/04/17 at 13:39; Status DC Enoxaparin Sodium (Lovenox Per Pharmacy Prophylaxis Dosing) 1 each PRN DAILY PRN MC SEE COMMENTS; Start 01/02/17 at 09:15; Status Cancel Enoxaparin Sodium (Lovenox 40mg Syringe) 40 mg Q12H SQ Last administered on 21:42; Start 01/02/17 at 10:00; Stop 01/04/17 at 10:18; Status DC Polysaccharide Iron Complex (Niferex 150) 150 mg BID PO Last administered on 12:36; Start 01/02/17 at 12:00 Bisacodyl (Dulcolax Tab) 10 mg DAILY PO Last administered on 01/06/17 12:34; Start 01/02/17 at 12:00 Senna/Docusate Sodium (Senna Plus) 2 tab PRN BID PRN PO CONSTIPATION Last administered on 01/03/17 10:42; Start 01/02/17 at 10:45 Senna/Docusate Sodium (Senna Plus) 1 tab BID PO Last administered on 01/06/17 12:35; Start 01/02/17 at 12:00 Piperacillin Sod/ Tazobactam Sod 3.375 gm/Sodium Chloride 50 ml @ 100 mls/hr Q6H IV Last administered on 01/03/17 10:40; Start 01/02/17 at 16:00; Stop at 12:11; Status DC Sodium Chloride 1,000 ml @ 100 mls/hr Q10H IV ; Start 01/03/17 at 10:45; Stop 01/04/17 at 00:59; Status DC Piperacillin Sod/ Tazobactam Sod 2.25 gm/Sodium Chloride 50 ml @ 100 mls/hr Q8HRS IV Last administered on 01/06/17 05:38; Start 01/03/17 at 14:00 Albuterol/ Ipratropium (Duoneb) 3 ml RTQID NEB Last administered on 01/06/17 09:01; Start 01/03/17 at 16:00 Sodium Chloride 1,000 ml @ 1,000 mls/hr 1X ONCE IV Last administered on 15:16; Start 01/03/17 at 15:15; Stop 01/03/17 at 16:14; Status DC Sodium Bicarbonate 75 meq/Sodium Chloride 1,075 ml @ 75 mls/hr [id number] IV Last administered on 01/04/17 09:52; Start 01/03/17 at 16:00 Sodium Bicarbonate 50 meq 1X ONCE IV Last administered on 01/03/17 16:08; Start 01/03/17 at 16:00; Stop 01/03/17 at 16:15; Status DC Sodium Bicarbonate 50 meq 1X ONCE IV Last administered on 01/03/17 16:09; Start 01/03/17 at 16:00; Stop 01/03/17 at 16:15; Status DC Sodium Bicarbonate 50 meq 1X ONCE IV Last administered on 01/03/17 16:09; Start 01/03/17 at 16:00; Stop 01/03/17 at 16:15; Status DC Sodium Chloride 500 ml @ 500 mls/hr PRN Q4HRS PRN IV HYPOTENSION; Start at 16:00 Acetaminophen (Acetaminophen Supp) 650 mg PRN Q6HRS PRN MT MILD PAIN / TEMP Last administered on 01/04/17 02:43; Start 01/04/17 at 02:00 Enoxaparin Sodium (Lovenox 40mg Syringe) 40 mg HS SQ ; Start 01/04/17 at 21:00; Stop 01/04/17 at 21:00; Status DC Lidocaine/Sodium Bicarbonate (Buffered Lidocaine 1%) 3 ml 1X ONCE IJ Last administered on 01/04/17 11:50; Start 01/04/17 at 11:30; Stop 01/04/17 at 11:31 ; Status DC Heparin Sodium/ Sodium Chloride 60 unit 1X ONCE IV Last administered on 11:50; Start 01/04/17 at 11:30; Stop 01/04/17 at 11:31; Status DC Heparin Sodium (Porcine) (Heparin Sodium) 2,500 unit 1X ONCE INT CAT Last administered on 01/04/17 11:51; Start 01/04/17 at 11:30; Stop 01/04/17 at 11:31 ; Status DC Heparin Sodium (Porcine) (Heparin Sodium) 10,000 unit STK-MED ONCE .ROUTE ; Start 01/04/17 at 11:22; Stop 01/04/17 at 11:23; Status DC Furosemide (Lasix) 40 mg [id number] IVP ; Start 01/04/17 at 11:30; Stop 01/04/17 at 14:58; Status DC Darbepoetin Robert (Aranesp) 60 mcg WEEKLYHS SQ Last administered on 01/04/17 20 :45; Start 01/04/17 at 21:00 Sodium Chloride 1,000 ml @ 1,000 mls/hr Q1H PRN IV hypotension; Start 01/04/17 at 13:02; Stop 01/04/17 at 19:01; Status DC Diphenhydramine HCl (Benadryl) 25 mg 1X PRN PRN IV ITCHING; Start 01/04/17 at 13:15; Stop 01/05/17 at 13:14; Status DC Diphenhydramine HCl (Benadryl) 25 mg 1X PRN PRN IV ITCHING; Start 01/04/17 at 13:15; Stop 01/05/17 at 13:14; Status DC Info (PHARMACY MONITORING -- do not chart) 1 each PRN DAILY PRN MC SEE COMMENTS ; Start 01/04/17 at 13:15; Status UNV Info (PHARMACY MONITORING -- do not chart) 1 each PRN DAILY PRN MC SEE COMMENTS ; Start 01/04/17 at 13:15 Insulin Detemir (Levemir) 45 units DAILY08 SQ Last administered on 01/05/17 09 :37; Start 01/04/17 at 14:00 Heparin Sodium (Porcine) (Heparin Sq) 5,000 unit Q8HRS SQ Last administered on 01/06/17 05:37; Start 01/04/17 at 14:00 Ondansetron HCl (Zofran) 4 mg PRN Q6HRS PRN IV NAUSEA/VOMITING; Start 01/05/17 at 07:00; Stop 01/06/17 at 06:59; Status DC Fentanyl Citrate (Fentanyl 2ml Vial) 25 mcg PRN Q5MIN PRN IV MILD PAIN; Start 01/05/17 at 07:00; Stop 01/06/17 at 06:59; Status DC Fentanyl Citrate (Fentanyl 2ml Vial) 50 mcg PRN Q5MIN PRN IV MODERATE PAIN; Start 01/05/17 at 07:00; Stop 01/06/17 at 06:59; Status DC Ringer's Solution 1,000 ml @ 30 mls/hr Q24H IV ; Start 01/05/17 at 07:00; Stop 01/05/17 at 18:59; Status DC Lidocaine HCl 2 ml PRN 1X PRN ID PRIOR TO IV START; Start 01/05/17 at 07:00; Stop 01/06/17 at 06:59; Status DC Prochlorperazine Edisylate (Compazine) 5 mg PACU PRN PRN IV NAUSEA, MRX1; Start 01/05/17 at 07:00; Stop 01/06/17 at 06:59; Status DC Furosemide (Lasix) 40 mg BID92 IVP Last administered on 01/05/17 18:23; Start 01/04/17 at 21:00 Oxycodone/ Acetaminophen (Percocet 5/325) 1 tab PRN Q4HRS PRN PO PAIN Last administered on 01/04/17 20:44; Start 01/04/17 at 20:30 Fentanyl Citrate (Fentanyl 2ml Vial) 50 mcg PRN Q2HR PRN IV SEVERE PAIN Last administered on 01/06/17 05:33; Start 01/05/17 at 06:00 Sodium Chloride 1,000 ml @ 1,000 mls/hr Q1H PRN IV hypotension; Start 01/05/17 at 11:47; Stop 01/05/17 at 17:46; Status DC Sodium Chloride (Normal Saline Flush) 10 ml 1X PRN PRN IV AP catheter pack; Start 01/05/17 at 12:00; Stop 01/06/17 at 11:59; Status DC Sodium Chloride (Normal Saline Flush) 10 ml 1X PRN PRN IV INSIDE OUTSIDE SALES REPRESENTATIVE catheter pack; Start 01/05/17 at 12:00; Stop 01/06/17 at 11:59; Status DC Sodium Chloride 1,000 ml @ 400 mls/hr Q2H30M PRN IV PATENCY; Start 01/05/17 at 11:47; Stop 01/05/17 at 23:46; Status DC Info (PHARMACY MONITORING -- do not chart) 1 each PRN DAILY PRN MC SEE COMMENTS ; Start 01/05/17 at 12:00; Status UNV Info (PHARMACY MONITORING -- do not chart) 1 each PRN DAILY PRN MC SEE COMMENTS ; Start 01/05/17 at 12:00; Status UNV Propofol 20 ml @ As Directed STK-MED ONCE IV ; Start 01/05/17 at 13:42; Stop at 13:43; Status DC Dexamethasone Sodium Phosphate (Decadron) 20 mg STK-MED ONCE .ROUTE ; Start at 13:42; Stop 01/05/17 at 13:43; Status DC Ondansetron HCl (Zofran) 4 mg STK-MED ONCE .ROUTE ; Start 01/05/17 at 13:42; Stop 01/05/17 at 13:43; Status DC Lidocaine HCl (Lidocaine Pf 2% Vial) 5 ml STK-MED ONCE .ROUTE ; Start 01/05/17 at 13:42; Stop 01/05/17 at 13:43; Status DC Insulin Aspart (NovoLOG) 15 units TIDAC SQ Last administered on 01/05/17t 18:44 ; Start 01/05/17 at 16:30 Fentanyl Citrate (Fentanyl 2ml Vial) 100 mcg STK-MED ONCE .ROUTE ; Start at 14:28; Stop 01/05/17 at 14:29; Status DC Midazolam HCl (Versed) 2 mg STK-MED ONCE .ROUTE ; Start 01/05/17 at 14:28; Stop 01/05/17 at 14:29; Status DC Desflurane (Suprane) 30 ml STK-MED ONCE IH ; Start 01/05/17 at 15:05; Stop 01/05 at 15:06; Status DC Oxycodone HCl (Roxicodone) 5 mg PRN Q3HRS PRN PO PAIN; Start 01/05/17 at 15:30 Fentanyl Citrate (Fentanyl 2ml Vial) 25 mcg PRN Q1HR PRN IV PAIN; Start at 15:30 Senna/Docusate Sodium (Senna Plus) 1 tab DAILY PO ; Start 01/06/17 at 09:00 Polyethylene Glycol (miraLAX PACKET) 17 gm PRN DAILY PRN PO CONSTIPATION; Start 01/05/17 at 15:30 Ondansetron HCl (Zofran) 4 mg PRN Q4HRS PRN IV NAUSEA/VOMITING; Start 01/05/17 at 15:30 Magnesium Hydroxide (Milk Of Magnesia) 2,400 mg 1X PRN PRN PO CONSTIPATION; Start 01/06/17 at 06:00; Stop 01/07/17 at 05:59 Bisacodyl (Dulcolax Supp) 10 mg 1X PRN PRN MT CONSTIPATION; Start 01/06/17 at 16:00; Stop 01/07/17 at 15:59 Acetaminophen/ Hydrocodone Bitart (Lortab 7.5/325) 1 tab PRN Q4HRS PRN PO PAIN ; Start 01/05/17 at 15:30 Dextrose (Dextrose 50%-Water Syringe) 12.5 gm PRN Q15MIN PRN IV SEE COMMENTS; Start 01/05/17 at 15:30; Status Cancel Sodium Chloride 1,000 ml @ 1,000 mls/hr Q1H PRN IV hypotension; Start 01/06/17 at 12:10; Stop 01/06/17 at 19:00 Diphenhydramine HCl (Benadryl) 25 mg 1X PRN PRN IV ITCHING; Start 01/06/17 at 12:15; Stop 01/06/17 at 19:00 Diphenhydramine HCl (Benadryl) 25 mg 1X PRN PRN IV ITCHING; Start 01/06/17 at 12:15; Stop 01/06/17 at 19:00 Info (PHARMACY MONITORING -- do not chart) 1 each PRN DAILY PRN MC SEE COMMENTS ; Start 01/06/17 at 12:15; Status UNV Active Scripts Active Reported Humalog (Insulin Lispro) 100 Unit/1 Ml Cartridge 23 Unit SQ TIDAC Vitamin D3 (Cholecalciferol (Vitamin D3)) 1,000 Unit Tablet 1 Tab PO DAILY Nexium Capsule (Esomeprazole Magnesium) 40 Mg Capsule.dr 1 Cap PO DAILY Losartan Potassium 50 Mg Tablet 50 Mg PO DAILY Gabapentin 300 Mg Capsule 300 Mg PO BID Celebrex (Celecoxib) 200 Mg Capsule 200 Mg PO BID 30 Days Citalopram Hbr (Citalopram Hydrobromide) 40 Mg Tablet 40 Mg PO DAILY Lipitor (Atorvastatin Calcium) 20 Mg Tablet 20 Mg PO QHS Flomax (Tamsulosin Hcl) 0.4 Mg Cap.er.24h 0.4 Mg PO HS Metformin Hcl 500 Mg Tablet 500 Mg PO BID Plavix (Clopidogrel Bisulfate) 75 Mg Tablet 75 Mg PO DAILY Vitals/I & O Vital Sign - Last 24 Hours 01/05/17 01/05/17 01/05/17 01/05/17 12:53 14:01 15:19 15:19 Temp 99.9 97.8 99.9 97.8 Pulse 85 98 Resp 18 20 B/P (MAP) 117/61 (79) 144/90 Pulse Ox 95 90 O2 Delivery Nasal Cannula Nasal Cannula Simple Mask Mask O2 Flow Rate 4.0 4.0 10 10 01/05/17 01/05/17 01/05/17 01/05/17 15:34 15:59 16:00 16:07 Temp 98.1 98.1 Pulse 96 92 92 Resp 20 20 20 B/P (MAP) 121/62 125/77 125/77 Pulse Ox 97 91 94 O2 Delivery Room Air Nasal Cannula O2 Flow Rate 10 10.0 2 01/05/17 01/05/17 01/05/17 01/05/17 16:22 16:37 17:12 18:04 Temp 97.5 97.7 97.7 97.5 97.7 97.7 Pulse 91 92 72 72 Resp 20 20 18 18 B/P (MAP) 136/83 153/85 151/88 (109) 120/70 (87) Pulse Ox 94 95 95 95 O2 Delivery Nasal Cannula Nasal Cannula Nasal Cannula Nasal Cannula O2 Flow Rate 2 3 4.0 4.0 01/05/17 01/05/17 01/05/17 01/05/17 19:00 19:07 20:00 20:00 Temp 98.1 98.1 Pulse 94 94 Resp 13 15 B/P (MAP) 120/70 (87) 133/74 (93) Pulse Ox 95 95 O2 Delivery Nasal Cannula Nasal Cannula Nasal Cannula O2 Flow Rate 4.0 4.0 4.0 01/05/17 01/05/17 01/05/17 01/05/17 20:00 20:13 20:39 21:00 Pulse 90 Resp 20 B/P (MAP) 101/62 (75) Pulse Ox 98 95 94 O2 Delivery Nasal Cannula Nasal Cannula Nasal Cannula O2 Flow Rate 4.0 3.0 4.0 01/05/17 01/05/17 01/05/17 01/06/17 22:00 23:00 23:08 00:00 Pulse 92 91 Resp 14 12 B/P (MAP) 100/51 (67) 91/49 (63) Pulse Ox 91 100 98 O2 Delivery Nasal Cannula BiPAP/CPAP Nasal Cannula O2 Flow Rate 4.0 4.0 01/06/17 01/06/17 01/06/17 01/06/17 00:00 00:00 01:00 02:00 Temp 98.4 98.4 Pulse 88 90 89 Resp 21 16 19 B/P (MAP) 126/70 (88) 122/75 (91) 139/78 (98) Pulse Ox 97 95 91 O2 Delivery BiPAP/CPAP Nasal Cannula Nasal Cannula O2 Flow Rate 4.0 4.0 4.0 01/06/17 01/06/17 01/06/17 01/06/17 03:00 03:50 04:00 04:00 Temp 97.8 97.8 Pulse 91 89 Resp 19 12 B/P (MAP) 135/74 (94) 133/77 (95) Pulse Ox 96 92 O2 Delivery Nasal Cannula Nasal Cannula Nasal Cannula O2 Flow Rate 4.0 4.0 4.0 4.0 01/06/17 01/06/17 01/06/17 01/06/17 05:00 05:00 05:33 06:00 Pulse 92 91 89 Resp 19 15 20 16 B/P (MAP) 133/71 (91) 133/71 (91) 123/70 (87) Pulse Ox 96 91 97 98 O2 Delivery Nasal Cannula Nasal Cannula Nasal Cannula Nasal Cannula O2 Flow Rate 4.0 4.0 4.0 4.0 01/06/17 01/06/17 01/06/17 01/06/17 06:30 08:00 08:00 09:04 Temp 98.5 98.5 Resp 18 B/P (MAP) 119/67 (84) Pulse Ox 96 O2 Delivery Nasal Cannula Nasal Cannula Nasal Cannula Nasal Cannula O2 Flow Rate 4.0 4.0 3.0 Intake and Output 01/05/17 01/05/17 01/06/17 14:59 22:59 06:59 Intake Total 150 ml 250 ml 50 ml Output Total 0 ml 15 ml 30 ml Balance 150 ml 235 ml 20 ml Nutrition Consultation Dietary Evaluation: Recommendations by RD: Increase Calorie Intake Comments: Rec. resume the ada diet as medically appropriate rec. PPN at 80 ml/hr if unable to advance diet Expected Outcomes/Goals: meet 75% estimated nutrition needs Malnutrition Findings: Reduced Ballistician Strength: N/A Malnutrition related to morbid: No Weight Status: Morbidly Obese MELISSA CHO MD Jan 06, 2017 12:42
--- NOTE | 2017-01-06 14:26 | PDOC ---
Renal-Progress Notes Subjective Notes Notes SOME CONFUSION AND SOMNOLENCE History of Present Illness Hx of present illness NO CHANGE Vitals Vitals Vital Signs Date Time Temp Pulse Resp B/P (MAP) Pulse Ox O2 Delivery O2 Flow Rate FiO2 01/06/17 14:15 98.6 79 20 98/56 98.6 01/06/17 09:04 96 Nasal Cannula 3.0 Weight Weight [ ] I.O. Intake and Output Intake and Output 01/06/17 07:00 Intake Total 450 ml Output Total 45 ml Balance 405 ml Intake Oral 250 ml IV Total 200 ml Output Urine Total 45 ml Labs Labs Laboratory Tests Test 01/05/17 16:43 01/05/17 17:19 01/05/17 20:38 01/06/17 05:15 Glucose (Fingerstick) 122 mg/dL (70-99) 126 mg/dL (70-99) 174 mg/dL (70-99) White Blood Count 9.4 x10^3/uL (4.0-11.0) Red Blood Count 2.20 x10^6/uL (4.30-5.70) Hemoglobin 6.9 g/dL (13.0-17.5) Hematocrit 20.7 % (39.0-53.0) Mean Corpuscular Volume 94 fL (79-100) Mean Corpuscular Hemoglobin 32 pg (25-35) Mean Corpuscular Hemoglobin Concent 34 g/dL (31-37) Red Cell Distribution Width 15.5 % (11.5-14.5) Platelet Count 152 x10^3/uL (140-400) Neutrophils (%) (Auto) 80 % (31-73) Lymphocytes (%) (Auto) 6 % (24-48) Monocytes (%) (Auto) 13 % (0-9) Eosinophils (%) (Auto) 1 % (0-3) Basophils (%) (Auto) 0 % (0-3) Neutrophils # (Auto) 7.5 x10^3uL (1.8-7.7) Lymphocytes # (Auto) 0.5 x10^3/uL (1.0-4.8) Monocytes # (Auto) 1.2 x10^3/uL (0.0-1.1) Eosinophils # (Auto) 0.1 x10^3/uL (0.0-0.7) Basophils # (Auto) 0.0 x10^3/uL (0.0-0.2) Sodium Level 135 mmol/L (136-145) Potassium Level 3.9 mmol/L (3.5-5.1) Chloride Level 97 mmol/L (98-107) Carbon Dioxide Level 27 mmol/L (21-32) Anion Gap 11 (6-14) Blood Urea Nitrogen 38 mg/dL (8-26) Creatinine 4.0 mg/dL (0.7-1.3) Estimated GFR (Cockcroft-Gault) 15.3 Glucose Level 157 mg/dL (70-99) Calcium Level 8.2 mg/dL (8.5-10.1) Test 01/06/17 12:08 Glucose (Fingerstick) 257 mg/dL (70-99) Micro Micro Microbiology 01/03/17 Blood Culture - Preliminary, Resulted 01/03/17 Blood Culture Result 1 (LIONEL) - Preliminary, Resulted 01/03/17 Antimicrobic Susceptibility - Preliminary, Resulted 01/03/17 Urine Culture - Final, Complete 01/03/17 Urine Culture Result 1 (LIONEL) - Final, Complete Review of Systems Constitutional: yes: weakness, alert Ears/Nose/Throat: Yes: no symptom reported Eyes: Yes: no symptom reported Pulmonary: Yes dyspnea Cardiovascular: Yes no symptom reported, Yes edema Gastrointestional: Yes: constipation Skin: Yes no symptom reported Psychiatric/Neurological: Yes: no symptom reported Physical Exam General Appearance: no apparent distress Skin: warm Respiratory: bilateral CTA Heart: S1S2 Abdomen: soft, tenderness Genitourinary: bladder flat Neurology: alert Assessment Assessment IMP BRYCE-ATN AND PROB IN LEUCOCYTOSIS CKD STAGE 3-CR PROB 1.8 AT BASELINE DM II RIGHT HEEL WOUND-DEBRIDEMENT SOMNOLENCE RESP FAILURE WITH POOR COMPLIANCE WITH BIPAP PLAN HD AGAIN TODAY UF 2 LITERS INCREASE IV LASIX WOUND DEBRIDEMENT ANTIBIOTICS ARANESP TO CONTINUE CONSIDER ABG PULMONARY FOLLOWING MARSHAL SNOW MD Jan 06, 2017 14:26
--- NOTE | 2017-01-06 14:37 | PDOC ---
PROGRESS NOTES Subjective Subjective Saw patient at HD. Patient somnolent, but HD nurse states mental status is better today. Objective Vital Signs Vital Signs Date Time Temp Pulse Resp B/P (MAP) Pulse Ox O2 Delivery O2 Flow Rate FiO2 01/06/17 14:15 98.6 79 20 98/56 98.6 01/06/17 09:04 96 Nasal Cannula 3.0 Physical Exam Right foot dressing dry and intact. There is an abrasion on top of the right great toe that is new, likely from trying to scoot himself up in bed. CAM walker to left lower extremity. Calf soft. Labs Laboratory Tests Test 01/04/17 17:12 01/04/17 19:55 01/04/17 20:43 01/05/17 05:45 Glucose (Fingerstick) 117 mg/dL (70-99) 208 mg/dL (70-99) White Blood Count 11.3 x10^3/uL (4.0-11.0) Red Blood Count 2.39 x10^6/uL (4.30-5.70) Hemoglobin 7.3 g/dL (13.0-17.5) Hematocrit 22.0 % (39.0-53.0) Mean Corpuscular Volume 92 fL (79-100) Mean Corpuscular Hemoglobin 31 pg (25-35) Mean Corpuscular Hemoglobin Concent 33 g/dL (31-37) Red Cell Distribution Width 15.7 % (11.5-14.5) Platelet Count 148 x10^3/uL (140-400) Sodium Level 136 mmol/L (136-145) 138 mmol/L (136-145) Potassium Level 3.6 mmol/L (3.5-5.1) 4.0 mmol/L (3.5-5.1) Chloride Level 98 mmol/L (98-107) 100 mmol/L (98-107) Carbon Dioxide Level 27 mmol/L (21-32) 27 mmol/L (21-32) Anion Gap 11 (6-14) 11 (6-14) Blood Urea Nitrogen 37 mg/dL (8-26) 45 mg/dL (8-26) Creatinine 3.7 mg/dL (0.7-1.3) 4.6 mg/dL (0.7-1.3) Estimated GFR (Cockcroft-Gault) 16.7 13.0 Glucose Level 183 mg/dL (70-99) 134 mg/dL (70-99) Calcium Level 7.7 mg/dL (8.5-10.1) 7.8 mg/dL (8.5-10.1) Magnesium Level 1.5 mg/dL (1.8-2.4) Test 01/05/17 07:51 01/05/17 11:24 01/05/17 14:16 01/05/17 16:43 Glucose (Fingerstick) 125 mg/dL (70-99) 103 mg/dL (70-99) 116 mg/dL (70-99) 122 mg/dL (70-99) Test 01/05/17 17:19 01/05/17 20:38 01/06/17 05:15 01/06/17 12:08 Glucose (Fingerstick) 126 mg/dL (70-99) 174 mg/dL (70-99) 257 mg/dL (70-99) White Blood Count 9.4 x10^3/uL (4.0-11.0) Red Blood Count 2.20 x10^6/uL (4.30-5.70) Hemoglobin 6.9 g/dL (13.0-17.5) Hematocrit 20.7 % (39.0-53.0) Mean Corpuscular Volume 94 fL (79-100) Mean Corpuscular Hemoglobin 32 pg (25-35) Mean Corpuscular Hemoglobin Concent 34 g/dL (31-37) Red Cell Distribution Width 15.5 % (11.5-14.5) Platelet Count 152 x10^3/uL (140-400) Neutrophils (%) (Auto) 80 % (31-73) Lymphocytes (%) (Auto) 6 % (24-48) Monocytes (%) (Auto) 13 % (0-9) Eosinophils (%) (Auto) 1 % (0-3) Basophils (%) (Auto) 0 % (0-3) Neutrophils # (Auto) 7.5 x10^3uL (1.8-7.7) Lymphocytes # (Auto) 0.5 x10^3/uL (1.0-4.8) Monocytes # (Auto) 1.2 x10^3/uL (0.0-1.1) Eosinophils # (Auto) 0.1 x10^3/uL (0.0-0.7) Basophils # (Auto) 0.0 x10^3/uL (0.0-0.2) Sodium Level 135 mmol/L (136-145) Potassium Level 3.9 mmol/L (3.5-5.1) Chloride Level 97 mmol/L (98-107) Carbon Dioxide Level 27 mmol/L (21-32) Anion Gap 11 (6-14) Blood Urea Nitrogen 38 mg/dL (8-26) Creatinine 4.0 mg/dL (0.7-1.3) Estimated GFR (Cockcroft-Gault) 15.3 Glucose Level 157 mg/dL (70-99) Calcium Level 8.2 mg/dL (8.5-10.1) Laboratory Tests Test 01/05/17 16:43 01/05/17 17:19 01/05/17 20:38 01/06/17 05:15 Glucose (Fingerstick) 122 mg/dL (70-99) 126 mg/dL (70-99) 174 mg/dL (70-99) White Blood Count 9.4 x10^3/uL (4.0-11.0) Red Blood Count 2.20 x10^6/uL (4.30-5.70) Hemoglobin 6.9 g/dL (13.0-17.5) Hematocrit 20.7 % (39.0-53.0) Mean Corpuscular Volume 94 fL (79-100) Mean Corpuscular Hemoglobin 32 pg (25-35) Mean Corpuscular Hemoglobin Concent 34 g/dL (31-37) Red Cell Distribution Width 15.5 % (11.5-14.5) Platelet Count 152 x10^3/uL (140-400) Neutrophils (%) (Auto) 80 % (31-73) Lymphocytes (%) (Auto) 6 % (24-48) Monocytes (%) (Auto) 13 % (0-9) Eosinophils (%) (Auto) 1 % (0-3) Basophils (%) (Auto) 0 % (0-3) Neutrophils # (Auto) 7.5 x10^3uL (1.8-7.7) Lymphocytes # (Auto) 0.5 x10^3/uL (1.0-4.8) Monocytes # (Auto) 1.2 x10^3/uL (0.0-1.1) Eosinophils # (Auto) 0.1 x10^3/uL (0.0-0.7) Basophils # (Auto) 0.0 x10^3/uL (0.0-0.2) Sodium Level 135 mmol/L (136-145) Potassium Level 3.9 mmol/L (3.5-5.1) Chloride Level 97 mmol/L (98-107) Carbon Dioxide Level 27 mmol/L (21-32) Anion Gap 11 (6-14) Blood Urea Nitrogen 38 mg/dL (8-26) Creatinine 4.0 mg/dL (0.7-1.3) Estimated GFR (Cockcroft-Gault) 15.3 Glucose Level 157 mg/dL (70-99) Calcium Level 8.2 mg/dL (8.5-10.1) Test 01/06/17 12:08 Glucose (Fingerstick) 257 mg/dL (70-99) Assessment Assessment POD #1 right heel debridement left lateral malleolus fracture Problems: Plan Plan of Care Continue dressing changes prn to right foot, per wound care team. Continue CAM walker on LLE. May put partial weight on front of right foot for transfers. No weight on heel of right foot. NWB or minimal weightbearing on LLE. D/w ICU nurse and HD nurse. LELAND LUU Jan 06, 2017 14:37
[2017-01-06] MEDS ORDERED: BISACODYL 10 MG SUPP.RECT. PR PRN (16:00)
[2017-01-06] MEDS: FUROSEMIDE 100 MG/10 ML VIAL. IVP SCH (17:16)
[2017-01-06] MEDS: TAMSULOSIN 0.4 MG CAP.ER.24H. PO SCH (20:32)
[2017-01-06] MEDS: ATORVASTATIN CALCIUM 20 MG TABLET PO SCH (20:32)
[2017-01-07] MEDS: PIPERACILLIN/TAZOBACTAM 2.25 GM in IV NORMAL SALINE 50ML 50 ML IV SCH ×3 (04:59→21:23)
[2017-01-07] MEDS: HEPARIN PF for SUB-Q USE 5,000 UNIT/0.5 ML VIAL. SQ SCH ×3 (05:08→21:31)
[2017-01-07 05:25] LABS: BASO # 0.1 x10^3/uL (0.0-0.2); BASO % 1 % (0-3); EOS % 1 % (0-3); HEMOGLOBIN 8.1 g/dL (13.0-17.5); LYMPH # 0.6 x10^3/uL (1.0-4.8); LYMPH % 6 % (24-48); MEAN CORPUSCULAR HEMOGLOBIN 32 pg (25-35); MEAN CORPUSCULAR HGB CONC 35 g/dL (31-37); MEAN CORPUSCULAR VOLUME 91 fL (79-100); MONO % 10 % (0-9); NEUT % 83 % (31-73); PLATELET COUNT 204 x10^3/uL (140-400); RED BLOOD COUNT 2.54 x10^6/uL (4.30-5.70); RED CELL DISTRIBUTION WIDTH 15.3 % (11.5-14.5); WHITE BLOOD COUNT 11.1 x10^3/uL (4.0-11.0)
[2017-01-07 05:36] LABS: CALCIUM 7.7 mg/dL (8.5-10.1); CREATININE 3.7 mg/dL (0.7-1.3); GFR 16.7; POTASSIUM 4.1 mmol/L (3.5-5.1)
--- NOTE | 2017-01-07 05:38 | ACF ---
Admission Forms Criteria SKIN AND WOUND CARE Clinical Indications for Inpatient Care (Place 'X' for any and all applicable criteria): Ongoing inpatient care may be indicated for pressure, venous, arterial, or neuropathic ulcers, with ANY ONE of the following (2)(3)(8)(9)(21)(25): [X]I. Need for ANY ONE of the following(26) [ ]a) Pressure ulcer closure procedures [ ]b) Skin grafting [X]c) Wound debridement [ ]d) Dressing change under general anesthesia [ ]e) Arterial revascularization procedures(19) (Also use Aortofemoral or Aortoiliac Bypass or Femoral Popliteal Bypass Criteria as appropriate) [ ]f) Amputation (Also use Foot: Transmetatarsal Amputation or Knee: Amputation Above or Below Knee Criteria as appropriate) [ ]g) Diverting colostomy [ ]h) Other significant surgical treatment [ ]II. Infection requiring inpatient care as indicated by ALL of the following( 27) [ ]a) ANY ONE of the following signs of infection: [ ]i) Poorly approximated incision line. [ ]ii) Excessive drainage [ ]iii) Foul odor [ ]iv) Pus [ ]v) Increased redness [ ]vi) Breakdown in tissue after suture removal [ ]vii) Fever [ ]b) ANY ONE of the following findings: [ ]i) Mental status changes [ ]ii) Dehydration [ ]iii) Bacteremia [ ]iv) Perineal infection [ ]v) Hemodynamic instability [ ]vi) High-risk conditions, such as ANY ONE of the following: [ ]1) Poorly controlled diabetes [ ]2) Cirrhosis [ ]3) Neutropenia [ ]4) Asplenia [ ]5) HIV infection [ ]6) Immunosuppression Extended stay beyond goal length of stay for primary condition may be needed until ALL of the following are present(1)(2)(13)(21)(27): [ ]a) Tissue necrosis absent or treatment plan manageable at lower level of care [ ]b) Fistulas, tunneling, or underlying deep tissue infection absent or treated [ ]c) Purulence and tissue breakdown absent or improved [ ]d) Ulcer surgical repair absent or healing without complications [ ]e) Wound infection absent or manageable at lower level of care [ ]f) Comorbidities absent or manageable at lower level of care The original [facility] content created by Franci Ontiveros has been revised. The portions of the content which have been revised are identified through the use of italic text or in bold, and [facility] has neither reviewed nor approved the modified material. All other unmodified content is copyright [facility]. Please see references footnoted in the original [facility] edition 2016 Admission Criteria Met?: Yes GABI CHAND Jan 07, 2017 05:38
[2017-01-07] MEDS: SODIUM BICARBONATE VIAL 75 MEQ in IV 1/2 NORMAL SALINE 1,000 ML IV SCH (05:54)
[2017-01-07 08:02] VITALS: BP 137/77
[2017-01-07] MEDS: CHOLECALCIFEROL (VITAMIN D3) 1,000 UNIT TABLET PO SCH (08:20)
[2017-01-07] MEDS: IRON POLYSACCHARIDE COMPLEX 150 MG CAPSULE PO SCH ×2 (08:20→21:22)
[2017-01-07] MEDS: CITALOPRAM 20 MG TABLET. PO SCH (08:20)
[2017-01-07] MEDS: PANTOPRAZOLE 40 MG TABLET.DR. PO SCH (08:20)
[2017-01-07] MEDS: LIDOCAINE (700MG/PATCH) PATCH. TD SCH (08:21)
[2017-01-07] MEDS: SENNOSIDES/DOCUSATE 8.6/50MG TABLET. PO SCH ×2 (08:22→09:00)
[2017-01-07] MEDS: HYDROcodone/APAP 7.5/325MG 1 TAB TABLET PO PRN (08:23)
[2017-01-07] MEDS: BISACODYL 5 MG TABLET.DR. PO SCH (08:25)
[2017-01-07] MEDS: GABAPENTIN 300 MG CAPSULE. PO SCH ×2 (08:25→21:22)
[2017-01-07] MEDS: CLOPIDOGREL BISULFATE 75 MG TABLET PO SCH (08:25)
[2017-01-07] MEDS: FUROSEMIDE 100 MG/10 ML VIAL. IVP SCH ×3 (08:26→15:30)
[2017-01-07] MEDS: IPRATRPIUM/ALBUTEROL 0.5/2.5MG 3 ML NEBU. NEB SCH ×4 (08:29→19:17)
[2017-01-07] MEDS: INSULIN DETEMIR 300 UNITS/3 ML INSULN.PEN. SQ SCH (08:31)
[2017-01-07] MEDS: INSULIN ASPART 300 UNITS/3 ML INSULN.PEN SQ SCH ×7 (08:48→21:31)
--- NOTE | 2017-01-07 10:01 | PDOC ---
Infectious Disease Note Subjective Subjective Transferred to floor Feeling ok Denies pain, Ate breakfast ROS ROS GEN: Denies fevers, chills, sweats CV: Denies chest pain RESP: Denies shortness of air, cough GI: Denies n/v/d NEURO: Denies confusion Vital Sign Vital Signs Vital Signs Date Time Temp Pulse Resp B/P (MAP) Pulse Ox O2 Delivery O2 Flow Rate FiO2 01/07/17 09:25 18 96 Nasal Cannula 3.0 01/07/17 08:02 98.1 85 137/77 (97) 98.1 Physical Exam PHYSICAL EXAM GENERAL: Propped up in bed, relaxed appearance, alert LUNGS: Clear anteriorly HEART: S1S2 ABD: Obese, soft, NT EXT: Right foot bandaged. MARKER ASSEMBLER: Alert, Oriented x 3. SKIN: No rash RIJ/HDC. (01/04). clean Labs Lab Laboratory Tests Test 01/06/17 12:08 01/06/17 17:23 01/06/17 20:37 01/07/17 05:00 Glucose (Fingerstick) 257 mg/dL (70-99) 149 mg/dL (70-99) 196 mg/dL (70-99) White Blood Count 11.1 x10^3/uL (4.0-11.0) Red Blood Count 2.54 x10^6/uL (4.30-5.70) Hemoglobin 8.1 g/dL (13.0-17.5) Hematocrit 23.0 % (39.0-53.0) Mean Corpuscular Volume 91 fL (79-100) Mean Corpuscular Hemoglobin 32 pg (25-35) Mean Corpuscular Hemoglobin Concent 35 g/dL (31-37) Red Cell Distribution Width 15.3 % (11.5-14.5) Platelet Count 204 x10^3/uL (140-400) Neutrophils (%) (Auto) 83 % (31-73) Lymphocytes (%) (Auto) 6 % (24-48) Monocytes (%) (Auto) 10 % (0-9) Eosinophils (%) (Auto) 1 % (0-3) Basophils (%) (Auto) 1 % (0-3) Neutrophils # (Auto) 9.1 x10^3uL (1.8-7.7) Lymphocytes # (Auto) 0.6 x10^3/uL (1.0-4.8) Monocytes # (Auto) 1.1 x10^3/uL (0.0-1.1) Eosinophils # (Auto) 0.1 x10^3/uL (0.0-0.7) Basophils # (Auto) 0.1 x10^3/uL (0.0-0.2) Sodium Level 137 mmol/L (136-145) Potassium Level 4.1 mmol/L (3.5-5.1) Chloride Level 97 mmol/L (98-107) Carbon Dioxide Level 32 mmol/L (21-32) Anion Gap 8 (6-14) Blood Urea Nitrogen 37 mg/dL (8-26) Creatinine 3.7 mg/dL (0.7-1.3) Estimated GFR (Cockcroft-Gault) 16.7 Glucose Level 190 mg/dL (70-99) Calcium Level 7.7 mg/dL (8.5-10.1) Test 01/07/17 08:16 Glucose (Fingerstick) 210 mg/dL (70-99) Objective Assessment Gangrenous ulcer of right heel. s/p excisional debridement skin and subcutaneous tissue, 01/05. No intra-op cultures obtained -MRI shows chronic neuropathic arthropathy changes with hardware in place; no definite evidence of acute osteo noted but cannot ruled out entirely with elevated ESR and WBC. CoNS bacteremia (1 of 5 bottles), 01/03, likely contaminate Leukocytosis, better, Lactic acidosis, better BRYCE on CKD, worse. Now on HD Left ankle nondisplaced fracture, splint in place PVD-mild Severe peripheral neuropathy Uncontrolled Type II diabetes mellitus Morbid obesity, BMI 46 Anemia s/p PRBCs 01/06 Plan Plan of Care Continue Zosyn, dose for renal function HBO in the works Last dose vanc 01/03. Trough 46.4 Received dose steroids pre-op, 01/05 Attending Co-Sign The patient was seen and interviewed as well as examined at the bedside. The chart was reviewed. The case was discussed. Agree with the plan of care. ULISSES CABEZAS APRN Jan 07, 2017 10:01 ROLANDO RUIZ MD Jan 07, 2017 15:37
--- NOTE | 2017-01-07 10:20 | PDOC ---
PULMONARY PROGRESS NOTES Subjective NO RESP COMPLAINTS NON COMPLIANT WITH BIPAP Vitals Vital Signs Date Time Temp Pulse Resp B/P (MAP) Pulse Ox O2 Delivery O2 Flow Rate FiO2 01/07/17 09:25 18 96 Nasal Cannula 3.0 01/07/17 08:02 98.1 85 137/77 (97) 98.1 ROS: No Nausea, No Chest Pain, No Increase Cough General: Alert Lungs: Crackles Cardiovascular: S1, S2 Abdomen: Other (OBESE) Neuro Exam: Alert, Oriented Extremities: Other (EDEMA) Skin: Warm, Dry Labs Laboratory Tests Test 01/05/17 11:24 01/05/17 14:16 01/05/17 16:43 01/05/17 17:19 Glucose (Fingerstick) 103 mg/dL (70-99) 116 mg/dL (70-99) 122 mg/dL (70-99) 126 mg/dL (70-99) Test 01/05/17 20:38 01/06/17 05:15 01/06/17 12:08 01/06/17 17:23 Glucose (Fingerstick) 174 mg/dL (70-99) 257 mg/dL (70-99) 149 mg/dL (70-99) White Blood Count 9.4 x10^3/uL (4.0-11.0) Red Blood Count 2.20 x10^6/uL (4.30-5.70) Hemoglobin 6.9 g/dL (13.0-17.5) Hematocrit 20.7 % (39.0-53.0) Mean Corpuscular Volume 94 fL (79-100) Mean Corpuscular Hemoglobin 32 pg (25-35) Mean Corpuscular Hemoglobin Concent 34 g/dL (31-37) Red Cell Distribution Width 15.5 % (11.5-14.5) Platelet Count 152 x10^3/uL (140-400) Neutrophils (%) (Auto) 80 % (31-73) Lymphocytes (%) (Auto) 6 % (24-48) Monocytes (%) (Auto) 13 % (0-9) Eosinophils (%) (Auto) 1 % (0-3) Basophils (%) (Auto) 0 % (0-3) Neutrophils # (Auto) 7.5 x10^3uL (1.8-7.7) Lymphocytes # (Auto) 0.5 x10^3/uL (1.0-4.8) Monocytes # (Auto) 1.2 x10^3/uL (0.0-1.1) Eosinophils # (Auto) 0.1 x10^3/uL (0.0-0.7) Basophils # (Auto) 0.0 x10^3/uL (0.0-0.2) Sodium Level 135 mmol/L (136-145) Potassium Level 3.9 mmol/L (3.5-5.1) Chloride Level 97 mmol/L (98-107) Carbon Dioxide Level 27 mmol/L (21-32) Anion Gap 11 (6-14) Blood Urea Nitrogen 38 mg/dL (8-26) Creatinine 4.0 mg/dL (0.7-1.3) Estimated GFR (Cockcroft-Gault) 15.3 Glucose Level 157 mg/dL (70-99) Calcium Level 8.2 mg/dL (8.5-10.1) Test 01/06/17 20:37 01/07/17 05:00 01/07/17 08:16 Glucose (Fingerstick) 196 mg/dL (70-99) 210 mg/dL (70-99) White Blood Count 11.1 x10^3/uL (4.0-11.0) Red Blood Count 2.54 x10^6/uL (4.30-5.70) Hemoglobin 8.1 g/dL (13.0-17.5) Hematocrit 23.0 % (39.0-53.0) Mean Corpuscular Volume 91 fL (79-100) Mean Corpuscular Hemoglobin 32 pg (25-35) Mean Corpuscular Hemoglobin Concent 35 g/dL (31-37) Red Cell Distribution Width 15.3 % (11.5-14.5) Platelet Count 204 x10^3/uL (140-400) Neutrophils (%) (Auto) 83 % (31-73) Lymphocytes (%) (Auto) 6 % (24-48) Monocytes (%) (Auto) 10 % (0-9) Eosinophils (%) (Auto) 1 % (0-3) Basophils (%) (Auto) 1 % (0-3) Neutrophils # (Auto) 9.1 x10^3uL (1.8-7.7) Lymphocytes # (Auto) 0.6 x10^3/uL (1.0-4.8) Monocytes # (Auto) 1.1 x10^3/uL (0.0-1.1) Eosinophils # (Auto) 0.1 x10^3/uL (0.0-0.7) Basophils # (Auto) 0.1 x10^3/uL (0.0-0.2) Sodium Level 137 mmol/L (136-145) Potassium Level 4.1 mmol/L (3.5-5.1) Chloride Level 97 mmol/L (98-107) Carbon Dioxide Level 32 mmol/L (21-32) Anion Gap 8 (6-14) Blood Urea Nitrogen 37 mg/dL (8-26) Creatinine 3.7 mg/dL (0.7-1.3) Estimated GFR (Cockcroft-Gault) 16.7 Glucose Level 190 mg/dL (70-99) Calcium Level 7.7 mg/dL (8.5-10.1) Laboratory Tests Test 01/06/17 12:08 01/06/17 17:23 01/06/17 20:37 01/07/17 05:00 Glucose (Fingerstick) 257 mg/dL (70-99) 149 mg/dL (70-99) 196 mg/dL (70-99) White Blood Count 11.1 x10^3/uL (4.0-11.0) Red Blood Count 2.54 x10^6/uL (4.30-5.70) Hemoglobin 8.1 g/dL (13.0-17.5) Hematocrit 23.0 % (39.0-53.0) Mean Corpuscular Volume 91 fL (79-100) Mean Corpuscular Hemoglobin 32 pg (25-35) Mean Corpuscular Hemoglobin Concent 35 g/dL (31-37) Red Cell Distribution Width 15.3 % (11.5-14.5) Platelet Count 204 x10^3/uL (140-400) Neutrophils (%) (Auto) 83 % (31-73) Lymphocytes (%) (Auto) 6 % (24-48) Monocytes (%) (Auto) 10 % (0-9) Eosinophils (%) (Auto) 1 % (0-3) Basophils (%) (Auto) 1 % (0-3) Neutrophils # (Auto) 9.1 x10^3uL (1.8-7.7) Lymphocytes # (Auto) 0.6 x10^3/uL (1.0-4.8) Monocytes # (Auto) 1.1 x10^3/uL (0.0-1.1) Eosinophils # (Auto) 0.1 x10^3/uL (0.0-0.7) Basophils # (Auto) 0.1 x10^3/uL (0.0-0.2) Sodium Level 137 mmol/L (136-145) Potassium Level 4.1 mmol/L (3.5-5.1) Chloride Level 97 mmol/L (98-107) Carbon Dioxide Level 32 mmol/L (21-32) Anion Gap 8 (6-14) Blood Urea Nitrogen 37 mg/dL (8-26) Creatinine 3.7 mg/dL (0.7-1.3) Estimated GFR (Cockcroft-Gault) 16.7 Glucose Level 190 mg/dL (70-99) Calcium Level 7.7 mg/dL (8.5-10.1) Test 01/07/17 08:16 Glucose (Fingerstick) 210 mg/dL (70-99) Medications Active Scripts Medications Dose Route/Sig Max Daily Dose Days Date Category Humalog (Insulin Lispro) 100 Unit/1 Ml Cartridge 23 Unit SQ TIDAC 01/02/17 Reported Vitamin D3 (Cholecalciferol (Vitamin D3)) 1,000 Unit Tablet 1 Tab PO DAILY 01/02/17 Reported Nexium Capsule (Esomeprazole Magnesium) 40 Mg Capsule.dr 1 Cap PO DAILY 01/02/17 Reported Losartan Potassium 50 Mg Tablet 50 Mg PO DAILY 01/02/17 Reported Gabapentin 300 Mg Capsule 300 Mg PO BID 01/02/17 Reported Celebrex (Celecoxib) 200 Mg Capsule 200 Mg PO BID 30 01/02/17 Reported Citalopram Hbr (Citalopram Hydrobromide) 40 Mg Tablet 40 Mg PO DAILY 06/09/13 Reported Lipitor (Atorvastatin Calcium) 20 Mg Tablet 20 Mg PO QHS 06/09/13 Reported Flomax (Tamsulosin Hcl) 0.4 Mg Cap.er.24h 0.4 Mg PO HS 06/09/13 Reported Metformin Hcl 500 Mg Tablet 500 Mg PO BID 06/09/13 Reported Plavix (Clopidogrel Bisulfate) 75 Mg Tablet 75 Mg PO DAILY 06/09/13 Reported Impression . IMPRESSION: 1. Acute hypoxemic respiratory failure. 2. Met /toxic encephalopathy 3. Metabolic acidosis 4. Acute kidney injury. 5. Chronic kidney disease. 6. Diabetes mellitus. 7. Hypertension. 8. Obstructive sleep apnea-hypopnea syndrome. 9. Diabetic foot. Plan . PT INSTRUCTED ON IMPORTANCE OF BIPAP USE TO AVOID FURTHER COMPLICATION I SPOKE TO HIM REGARDING OPTION OF TRACH HE DOES NOT HAVE ANY INTEREST HD PER NEPHRO BIPAP QHS AND PRN ANTIBX DVT PROPH SAY HE HAS BIPAP AT HOME ANDERS DESIR MD Jan 07, 2017 10:20
--- NOTE | 2017-01-07 10:32 | PDOC ---
PROGRESS NOTES Subjective Subjective He is eager to get up. Objective Objective Vital Signs Date Time Temp Pulse Resp B/P (MAP) Pulse Ox O2 Delivery O2 Flow Rate FiO2 01/07/17 09:25 18 96 Nasal Cannula 3.0 01/07/17 08:02 98.1 85 137/77 (97) 98.1 Intake and Output 01/07/17 07:00 Intake Total 1775 ml Output Total 100 ml Balance 1675 ml Intake Oral 1450 ml Blood Product IV Normal Saline Flush 325 ml Output Urine Total 100 ml # Bowel Movements 2 Physical Exam Physical Exam He is receiving dialysis and he is alert,supine in bed and he had cam walker boot to left ankle and L'nard splint to right foot. Assessment Assessment Problems Medical Problems: (1) Diabetic foot ulcer Status: Acute (2) Hyperglycemia Status: Acute (3) Sepsis Status: Acute Plan Plan of Care To get him up as tolerated. Comment Review of Relevant I have reviewed the following items lauryn (where applicable) has been applied. Labs Laboratory Tests Test 01/05/17 11:24 01/05/17 14:16 01/05/17 16:43 01/05/17 17:19 Glucose (Fingerstick) 103 mg/dL (70-99) 116 mg/dL (70-99) 122 mg/dL (70-99) 126 mg/dL (70-99) Test 01/05/17 20:38 01/06/17 05:15 01/06/17 12:08 01/06/17 17:23 Glucose (Fingerstick) 174 mg/dL (70-99) 257 mg/dL (70-99) 149 mg/dL (70-99) White Blood Count 9.4 x10^3/uL (4.0-11.0) Red Blood Count 2.20 x10^6/uL (4.30-5.70) Hemoglobin 6.9 g/dL (13.0-17.5) Hematocrit 20.7 % (39.0-53.0) Mean Corpuscular Volume 94 fL (79-100) Mean Corpuscular Hemoglobin 32 pg (25-35) Mean Corpuscular Hemoglobin Concent 34 g/dL (31-37) Red Cell Distribution Width 15.5 % (11.5-14.5) Platelet Count 152 x10^3/uL (140-400) Neutrophils (%) (Auto) 80 % (31-73) Lymphocytes (%) (Auto) 6 % (24-48) Monocytes (%) (Auto) 13 % (0-9) Eosinophils (%) (Auto) 1 % (0-3) Basophils (%) (Auto) 0 % (0-3) Neutrophils # (Auto) 7.5 x10^3uL (1.8-7.7) Lymphocytes # (Auto) 0.5 x10^3/uL (1.0-4.8) Monocytes # (Auto) 1.2 x10^3/uL (0.0-1.1) Eosinophils # (Auto) 0.1 x10^3/uL (0.0-0.7) Basophils # (Auto) 0.0 x10^3/uL (0.0-0.2) Sodium Level 135 mmol/L (136-145) Potassium Level 3.9 mmol/L (3.5-5.1) Chloride Level 97 mmol/L (98-107) Carbon Dioxide Level 27 mmol/L (21-32) Anion Gap 11 (6-14) Blood Urea Nitrogen 38 mg/dL (8-26) Creatinine 4.0 mg/dL (0.7-1.3) Estimated GFR (Cockcroft-Gault) 15.3 Glucose Level 157 mg/dL (70-99) Calcium Level 8.2 mg/dL (8.5-10.1) Test 01/06/17 20:37 01/07/17 05:00 01/07/17 08:16 Glucose (Fingerstick) 196 mg/dL (70-99) 210 mg/dL (70-99) White Blood Count 11.1 x10^3/uL (4.0-11.0) Red Blood Count 2.54 x10^6/uL (4.30-5.70) Hemoglobin 8.1 g/dL (13.0-17.5) Hematocrit 23.0 % (39.0-53.0) Mean Corpuscular Volume 91 fL (79-100) Mean Corpuscular Hemoglobin 32 pg (25-35) Mean Corpuscular Hemoglobin Concent 35 g/dL (31-37) Red Cell Distribution Width 15.3 % (11.5-14.5) Platelet Count 204 x10^3/uL (140-400) Neutrophils (%) (Auto) 83 % (31-73) Lymphocytes (%) (Auto) 6 % (24-48) Monocytes (%) (Auto) 10 % (0-9) Eosinophils (%) (Auto) 1 % (0-3) Basophils (%) (Auto) 1 % (0-3) Neutrophils # (Auto) 9.1 x10^3uL (1.8-7.7) Lymphocytes # (Auto) 0.6 x10^3/uL (1.0-4.8) Monocytes # (Auto) 1.1 x10^3/uL (0.0-1.1) Eosinophils # (Auto) 0.1 x10^3/uL (0.0-0.7) Basophils # (Auto) 0.1 x10^3/uL (0.0-0.2) Sodium Level 137 mmol/L (136-145) Potassium Level 4.1 mmol/L (3.5-5.1) Chloride Level 97 mmol/L (98-107) Carbon Dioxide Level 32 mmol/L (21-32) Anion Gap 8 (6-14) Blood Urea Nitrogen 37 mg/dL (8-26) Creatinine 3.7 mg/dL (0.7-1.3) Estimated GFR (Cockcroft-Gault) 16.7 Glucose Level 190 mg/dL (70-99) Calcium Level 7.7 mg/dL (8.5-10.1) Laboratory Tests Test 01/06/17 12:08 01/06/17 17:23 01/06/17 20:37 01/07/17 05:00 Glucose (Fingerstick) 257 mg/dL (70-99) 149 mg/dL (70-99) 196 mg/dL (70-99) White Blood Count 11.1 x10^3/uL (4.0-11.0) Red Blood Count 2.54 x10^6/uL (4.30-5.70) Hemoglobin 8.1 g/dL (13.0-17.5) Hematocrit 23.0 % (39.0-53.0) Mean Corpuscular Volume 91 fL (79-100) Mean Corpuscular Hemoglobin 32 pg (25-35) Mean Corpuscular Hemoglobin Concent 35 g/dL (31-37) Red Cell Distribution Width 15.3 % (11.5-14.5) Platelet Count 204 x10^3/uL (140-400) Neutrophils (%) (Auto) 83 % (31-73) Lymphocytes (%) (Auto) 6 % (24-48) Monocytes (%) (Auto) 10 % (0-9) Eosinophils (%) (Auto) 1 % (0-3) Basophils (%) (Auto) 1 % (0-3) Neutrophils # (Auto) 9.1 x10^3uL (1.8-7.7) Lymphocytes # (Auto) 0.6 x10^3/uL (1.0-4.8) Monocytes # (Auto) 1.1 x10^3/uL (0.0-1.1) Eosinophils # (Auto) 0.1 x10^3/uL (0.0-0.7) Basophils # (Auto) 0.1 x10^3/uL (0.0-0.2) Sodium Level 137 mmol/L (136-145) Potassium Level 4.1 mmol/L (3.5-5.1) Chloride Level 97 mmol/L (98-107) Carbon Dioxide Level 32 mmol/L (21-32) Anion Gap 8 (6-14) Blood Urea Nitrogen 37 mg/dL (8-26) Creatinine 3.7 mg/dL (0.7-1.3) Estimated GFR (Cockcroft-Gault) 16.7 Glucose Level 190 mg/dL (70-99) Calcium Level 7.7 mg/dL (8.5-10.1) Test 01/07/17 08:16 Glucose (Fingerstick) 210 mg/dL (70-99) Microbiology 01/03/17 Blood Culture - Preliminary, Resulted 01/03/17 Blood Culture Result 1 (LIONEL) - Preliminary, Resulted 01/03/17 Antimicrobic Susceptibility - Preliminary, Resulted 01/03/17 Urine Culture - Final, Complete 01/03/17 Urine Culture Result 1 (LIONEL) - Final, Complete Medications Current Medications Sodium Chloride 1,000 ml @ 1,000 mls/hr 1X ONCE IV Last administered on t 23:15; Start 01/01/17 at 23:00; Stop 01/01/17 at 23:59; Status DC Ampicillin Sodium/ Sulbactam Sodium 3 gm/Sodium Chloride 100 ml @ 200 mls/hr 1X ONCE IV Last administered on 01/01/17 23:43; Start 01/02/17 at 00:00; Stop 01/02/17 at 00:29; Status DC Vancomycin HCl (Vanco Per Pharmacy) 1 each PRN DAILY PRN MC SEE COMMENTS Last administered on 01/02/17 13:53; Start 01/01/17 at 23:30; Stop 01/03/17 at 12:11 ; Status DC Vancomycin HCl 2 gm/Sodium Chloride 500 ml @ 250 mls/hr 1X ONCE IV Last administered on 01/02/17 00:32; Start 01/02/17 at 00:00; Stop 01/02/17 at 01:59 ; Status DC Sodium Chloride 1,000 ml @ 2,000 mls/hr Q30M IV Last administered on 04:10; Start 01/02/17 at 00:00; Stop 01/02/17 at 02:15; Status DC Hydrocortisone Acetate (Anucort-Hc) 25 mg 1X ONCE TX Last administered on 01/01 23:43; Start 01/02/17 at 00:00; Stop 01/02/17 at 00:01; Status DC Hydromorphone HCl (Dilaudid) 1 mg 1X ONCE IV Last administered on 01/02/17 00 :35; Start 01/02/17 at 01:00; Stop 01/02/17 at 01:01; Status DC Ondansetron HCl (Zofran) 4 mg 1X ONCE IV Last administered on 01/02/17 00:35 ; Start 01/02/17 at 01:00; Stop 01/02/17 at 01:01; Status DC Hydromorphone HCl (Dilaudid) 2 mg STK-MED ONCE .ROUTE ; Start 01/02/17 at 00:33 ; Stop 01/02/17 at 00:34; Status DC Ondansetron HCl (Zofran) 4 mg PRN Q8HRS PRN IV NAUSEA/VOMITING; Start 01/02/17 at 01:15; Stop 01/03/17 at 01:14; Status DC Fentanyl Citrate (Fentanyl 2ml Vial) 50 mcg PRN Q2HR PRN IV SEVERE PAIN Last administered on 01/02/17 20:45; Start 01/02/17 at 01:15; Stop 01/03/17 at 01:14 ; Status DC Acetaminophen (Tylenol) 650 mg PRN Q4HRS PRN PO FEVER; Start 01/02/17 at 01:15 ; Stop 01/03/17 at 01:14; Status DC Vancomycin HCl 2 gm/Sodium Chloride 500 ml @ 250 mls/hr Q12H IV Last administered on 01/03/17 00:00; Start 01/02/17 at 12:00; Stop 01/03/17 at 12:11 ; Status DC Vancomycin HCl 1 each 1X ONCE MC Last administered on 01/03/17 11:30; Start 01/03/17 at 11:30; Stop 01/03/17 at 11:31; Status DC Atorvastatin Calcium (Lipitor) 20 mg QHS PO Last administered on 01/06/17 20: 32; Start 01/02/17 at 21:00 Celecoxib (CeleBREX) 200 mg BID PO Last administered on 01/02/17 09:51; Start 01/02/17 at 09:00; Stop 01/02/17 at 10:30; Status DC Vitamin D (Vitamin D3) 1,000 unit DAILY PO Last administered on 01/07/17 08:20 ; Start 01/02/17 at 09:00 Clopidogrel Bisulfate (Plavix) 75 mg DAILY PO Last administered on 01/07/17 08 :25; Start 01/02/17 at 09:00 Losartan Potassium (Cozaar) 50 mg DAILY PO Last administered on 01/03/17 10:41 ; Start 01/02/17 at 09:00; Stop 01/04/17 at 11:25; Status DC Metformin HCl (Glucophage) 500 mg BID PO Last administered on 01/03/17 10:42; Start 01/02/17 at 09:00; Stop 01/04/17 at 11:25; Status DC Tamsulosin HCl (Flomax) 0.4 mg HS PO Last administered on 01/06/17 20:32; Start 01/02/17 at 21:00 Citalopram Hydrobromide (CeleXA) 40 mg DAILY PO Last administered on 01/07/17 08:20; Start 01/02/17 at 09:00 Pantoprazole Sodium (Protonix) 40 mg DAILYAC PO Last administered on 01/07/17 08:20; Start 01/02/17 at 09:00 Gabapentin (Neurontin) 300 mg BID PO Last administered on 01/07/17 08:25; Start 01/02/17 at 09:00 Insulin Aspart (NovoLOG) 23 units TIDAC SQ Last administered on 01/04/17 12:25 ; Start 01/02/17 at 11:30; Stop 01/05/17 at 13:53; Status DC Insulin Aspart (NovoLOG) 0-9 UNITS QIDACHS SQ Last administered on 01/07/17 08 :49; Start 01/02/17 at 11:30 Dextrose (Dextrose 50%-Water Syringe) 12.5 gm PRN Q15MIN PRN IV SEE COMMENTS; Start 01/02/17 at 08:45 Sodium Chloride 1,000 ml @ 100 mls/hr 1X ONCE IV Last administered on 09:50; Start 01/02/17 at 08:45; Stop 01/02/17 at 18:44; Status DC Lidocaine (Lidoderm) 1 patch DAILY TD Last administered on 01/07/17 08:21; Start 01/02/17 at 09:00 Insulin Detemir (Levemir) 40 units DAILY08 SQ Last administered on 01/04/17 09 :57; Start 01/02/17 at 09:00; Stop 01/04/17 at 13:39; Status DC Enoxaparin Sodium (Lovenox Per Pharmacy Prophylaxis Dosing) 1 each PRN DAILY PRN MC SEE COMMENTS; Start 01/02/17 at 09:15; Status Cancel Enoxaparin Sodium (Lovenox 40mg Syringe) 40 mg Q12H SQ Last administered on 21:42; Start 01/02/17 at 10:00; Stop 01/04/17 at 10:18; Status DC Polysaccharide Iron Complex (Niferex 150) 150 mg BID PO Last administered on 08:20; Start 01/02/17 at 12:00 Bisacodyl (Dulcolax Tab) 10 mg DAILY PO Last administered on 01/07/17 08:25; Start 01/02/17 at 12:00 Senna/Docusate Sodium (Senna Plus) 2 tab PRN BID PRN PO CONSTIPATION Last administered on 01/03/17 10:42; Start 01/02/17 at 10:45 Senna/Docusate Sodium (Senna Plus) 1 tab BID PO Last administered on 01/06/17 20:32; Start 01/02/17 at 12:00 Piperacillin Sod/ Tazobactam Sod 3.375 gm/Sodium Chloride 50 ml @ 100 mls/hr Q6H IV Last administered on 01/03/17 10:40; Start 01/02/17 at 16:00; Stop at 12:11; Status DC Sodium Chloride 1,000 ml @ 100 mls/hr Q10H IV ; Start 01/03/17 at 10:45; Stop 01/04/17 at 00:59; Status DC Piperacillin Sod/ Tazobactam Sod 2.25 gm/Sodium Chloride 50 ml @ 100 mls/hr Q8HRS IV Last administered on 01/07/17 04:59; Start 01/03/17 at 14:00 Albuterol/ Ipratropium (Duoneb) 3 ml RTQID NEB Last administered on 01/07/17 08:29; Start 01/03/17 at 16:00 Sodium Chloride 1,000 ml @ 1,000 mls/hr 1X ONCE IV Last administered on 15:16; Start 01/03/17 at 15:15; Stop 01/03/17 at 16:14; Status DC Sodium Bicarbonate 75 meq/Sodium Chloride 1,075 ml @ 75 mls/hr [id number] IV Last administered on 01/04/17 09:52; Start 01/03/17 at 16:00 Sodium Bicarbonate 50 meq 1X ONCE IV Last administered on 01/03/17 16:08; Start 01/03/17 at 16:00; Stop 01/03/17 at 16:15; Status DC Sodium Bicarbonate 50 meq 1X ONCE IV Last administered on 01/03/17 16:09; Start 01/03/17 at 16:00; Stop 01/03/17 at 16:15; Status DC Sodium Bicarbonate 50 meq 1X ONCE IV Last administered on 01/03/17 16:09; Start 01/03/17 at 16:00; Stop 01/03/17 at 16:15; Status DC Sodium Chloride 500 ml @ 500 mls/hr PRN Q4HRS PRN IV HYPOTENSION; Start at 16:00 Acetaminophen (Acetaminophen Supp) 650 mg PRN Q6HRS PRN TX MILD PAIN / TEMP Last administered on 01/04/17 02:43; Start 01/04/17 at 02:00 Enoxaparin Sodium (Lovenox 40mg Syringe) 40 mg HS SQ ; Start 01/04/17 at 21:00; Stop 01/04/17 at 21:00; Status DC Lidocaine/Sodium Bicarbonate (Buffered Lidocaine 1%) 3 ml 1X ONCE IJ Last administered on 01/04/17 11:50; Start 01/04/17 at 11:30; Stop 01/04/17 at 11:31 ; Status DC Heparin Sodium/ Sodium Chloride 60 unit 1X ONCE IV Last administered on 11:50; Start 01/04/17 at 11:30; Stop 01/04/17 at 11:31; Status DC Heparin Sodium (Porcine) (Heparin Sodium) 2,500 unit 1X ONCE INT CAT Last administered on 01/04/17 11:51; Start 01/04/17 at 11:30; Stop 01/04/17 at 11:31 ; Status DC Heparin Sodium (Porcine) (Heparin Sodium) 10,000 unit STK-MED ONCE .ROUTE ; Start 01/04/17 at 11:22; Stop 01/04/17 at 11:23; Status DC Furosemide (Lasix) 40 mg [id number] IVP ; Start 01/04/17 at 11:30; Stop 01/04/17 at 14:58; Status DC Darbepoetin Robert (Aranesp) 60 mcg [id number] SQ Last administered on 01/04/17 20 :45; Start 01/04/17 at 21:00 Sodium Chloride 1,000 ml @ 1,000 mls/hr Q1H PRN IV hypotension; Start 01/04/17 at 13:02; Stop 01/04/17 at 19:01; Status DC Diphenhydramine HCl (Benadryl) 25 mg 1X PRN PRN IV ITCHING; Start 01/04/17 at 13:15; Stop 01/05/17 at 13:14; Status DC Diphenhydramine HCl (Benadryl) 25 mg 1X PRN PRN IV ITCHING; Start 01/04/17 at 13:15; Stop 01/05/17 at 13:14; Status DC Info (PHARMACY MONITORING -- do not chart) 1 each PRN DAILY PRN MC SEE COMMENTS ; Start 01/04/17 at 13:15; Status UNV Info (PHARMACY MONITORING -- do not chart) 1 each PRN DAILY PRN MC SEE COMMENTS ; Start 01/04/17 at 13:15 Insulin Detemir (Levemir) 45 units DAILY08 SQ Last administered on 01/07/17 08 :31; Start 01/04/17 at 14:00 Heparin Sodium (Porcine) (Heparin Sq) 5,000 unit Q8HRS SQ Last administered on 01/07/17 05:08; Start 01/04/17 at 14:00 Ondansetron HCl (Zofran) 4 mg PRN Q6HRS PRN IV NAUSEA/VOMITING; Start 01/05/17 at 07:00; Stop 01/06/17 at 06:59; Status DC Fentanyl Citrate (Fentanyl 2ml Vial) 25 mcg PRN Q5MIN PRN IV MILD PAIN; Start 01/05/17 at 07:00; Stop 01/06/17 at 06:59; Status DC Fentanyl Citrate (Fentanyl 2ml Vial) 50 mcg PRN Q5MIN PRN IV MODERATE PAIN; Start 01/05/17 at 07:00; Stop 01/06/17 at 06:59; Status DC Ringer's Solution 1,000 ml @ 30 mls/hr Q24H IV ; Start 01/05/17 at 07:00; Stop 01/05/17 at 18:59; Status DC Lidocaine HCl 2 ml PRN 1X PRN ID PRIOR TO IV START; Start 01/05/17 at 07:00; Stop 01/06/17 at 06:59; Status DC Prochlorperazine Edisylate (Compazine) 5 mg PACU PRN PRN IV NAUSEA, MRX1; Start 01/05/17 at 07:00; Stop 01/06/17 at 06:59; Status DC Furosemide (Lasix) 40 mg BID92 IVP Last administered on 01/05/17 18:23; Start 01/04/17 at 21:00; Stop 01/06/17 at 14:28; Status DC Oxycodone/ Acetaminophen (Percocet 5/325) 1 tab PRN Q4HRS PRN PO PAIN Last administered on 01/04/17t 20:44; Start 01/04/17 at 20:30 Fentanyl Citrate (Fentanyl 2ml Vial) 50 mcg PRN Q2HR PRN IV SEVERE PAIN Last administered on 01/06/17t 05:33; Start 01/05/17 at 06:00 Sodium Chloride 1,000 ml @ 1,000 mls/hr Q1H PRN IV hypotension; Start 01/05/17 at 11:47; Stop 01/05/17 at 17:46; Status DC Sodium Chloride (Normal Saline Flush) 10 ml 1X PRN PRN IV AP catheter pack; Start 01/05/17 at 12:00; Stop 01/06/17 at 11:59; Status DC Sodium Chloride (Normal Saline Flush) 10 ml 1X PRN PRN IV [employer] catheter pack; Start 01/05/17 at 12:00; Stop 01/06/17 at 11:59; Status DC Sodium Chloride 1,000 ml @ 400 mls/hr Q2H30M PRN IV PATENCY; Start 01/05/17 at 11:47; Stop 01/05/17 at 23:46; Status DC Info (PHARMACY MONITORING -- do not chart) 1 each PRN DAILY PRN MC SEE COMMENTS ; Start 01/05/17 at 12:00; Status UNV Info (PHARMACY MONITORING -- do not chart) 1 each PRN DAILY PRN MC SEE COMMENTS ; Start 01/05/17 at 12:00; Status UNV Propofol 20 ml @ As Directed STK-MED ONCE IV ; Start 01/05/17 at 13:42; Stop at 13:43; Status DC Dexamethasone Sodium Phosphate (Decadron) 20 mg STK-MED ONCE .ROUTE ; Start at 13:42; Stop 01/05/17 at 13:43; Status DC Ondansetron HCl (Zofran) 4 mg STK-MED ONCE .ROUTE ; Start 01/05/17 at 13:42; Stop 01/05/17 at 13:43; Status DC Lidocaine HCl (Lidocaine Pf 2% Vial) 5 ml STK-MED ONCE .ROUTE ; Start 01/05/17 at 13:42; Stop 01/05/17 at 13:43; Status DC Insulin Aspart (NovoLOG) 15 units TIDAC SQ Last administered on 01/07/17 08:48 ; Start 01/05/17 at 16:30 Fentanyl Citrate (Fentanyl 2ml Vial) 100 mcg STK-MED ONCE .ROUTE ; Start at 14:28; Stop 01/05/17 at 14:29; Status DC Midazolam HCl (Versed) 2 mg STK-MED ONCE .ROUTE ; Start 01/05/17 at 14:28; Stop 01/05/17 at 14:29; Status DC Desflurane (Suprane) 30 ml STK-MED ONCE IH ; Start 01/05/17 at 15:05; Stop 01/05 at 15:06; Status DC Oxycodone HCl (Roxicodone) 5 mg PRN Q3HRS PRN PO PAIN; Start 01/05/17 at 15:30 Fentanyl Citrate (Fentanyl 2ml Vial) 25 mcg PRN Q1HR PRN IV PAIN; Start at 15:30 Senna/Docusate Sodium (Senna Plus) 1 tab DAILY PO Last administered on 08:22; Start 01/06/17 at 09:00 Polyethylene Glycol (miraLAX PACKET) 17 gm PRN DAILY PRN PO CONSTIPATION; Start 01/05/17 at 15:30 Ondansetron HCl (Zofran) 4 mg PRN Q4HRS PRN IV NAUSEA/VOMITING; Start 01/05/17 at 15:30 Magnesium Hydroxide (Milk Of Magnesia) 2,400 mg 1X PRN PRN PO CONSTIPATION; Start 01/06/17 at 06:00; Stop 01/07/17 at 05:59; Status DC Bisacodyl (Dulcolax Supp) 10 mg 1X PRN PRN [place] CONSTIPATION; Start 01/06/17 at 16:00; Stop 01/07/17 at 15:59 Acetaminophen/ Hydrocodone Bitart (Lortab 7.5/325) 1 tab PRN Q4HRS PRN PO PAIN Last administered on 01/07/17 08:23; Start 01/05/17 at 15:30 Dextrose (Dextrose 50%-Water Syringe) 12.5 gm PRN Q15MIN PRN IV SEE COMMENTS; Start 01/05/17 at 15:30; Status Cancel Sodium Chloride 1,000 ml @ 1,000 mls/hr Q1H PRN IV hypotension; Start 01/06/17 at 12:10; Stop 01/06/17 at 19:00; Status DC Diphenhydramine HCl (Benadryl) 25 mg 1X PRN PRN IV ITCHING; Start 01/06/17 at 12:15; Stop 01/06/17 at 19:00; Status DC Diphenhydramine HCl (Benadryl) 25 mg 1X PRN PRN IV ITCHING; Start 01/06/17 at 12:15; Stop 01/06/17 at 19:00; Status DC Info (PHARMACY MONITORING -- do not chart) 1 each PRN DAILY PRN MC SEE COMMENTS ; Start 01/06/17 at 12:15; Status UNV Furosemide (Lasix) 80 mg BID92 IVP Last administered on 01/06/17t 17:16; Start 01/06/17 at 14:30 Active Scripts Active Reported Humalog (Insulin Lispro) 100 Unit/1 Ml Cartridge 23 Unit SQ TIDAC Vitamin D3 (Cholecalciferol (Vitamin D3)) 1,000 Unit Tablet 1 Tab PO DAILY Nexium Capsule (Esomeprazole Magnesium) 40 Mg Capsule.dr 1 Cap PO DAILY Losartan Potassium 50 Mg Tablet 50 Mg PO DAILY Gabapentin 300 Mg Capsule 300 Mg PO BID Celebrex (Celecoxib) 200 Mg Capsule 200 Mg PO BID 30 Days Citalopram Hbr (Citalopram Hydrobromide) 40 Mg Tablet 40 Mg PO DAILY Lipitor (Atorvastatin Calcium) 20 Mg Tablet 20 Mg PO QHS Flomax (Tamsulosin Hcl) 0.4 Mg Cap.er.24h 0.4 Mg PO HS Metformin Hcl 500 Mg Tablet 500 Mg PO BID Plavix (Clopidogrel Bisulfate) 75 Mg Tablet 75 Mg PO DAILY Vitals/I & O Vital Sign - Last 24 Hours 01/06/17 01/06/17 01/06/17 01/06/17 12:00 13:50 14:15 14:40 Temp 98.1 98.9 98.6 98.6 98.1 98.9 98.6 98.6 Pulse 88 84 79 77 Resp 18 20 20 20 B/P (MAP) 121/68 (85) 108/61 98/56 110/57 Pulse Ox 92 O2 Delivery Nasal Cannula O2 Flow Rate 4.0 701/06/17 01/06/17 01/06/17 14:40 17:00 18:06 18:15 Temp 98.6 98.3 97.9 98.6 98.3 97.9 Pulse 76 86 92 85 Resp 20 19 20 B/P (MAP) 110/57 110/68 (82) 116/65 (82) 116/65 (82) Pulse Ox 96 94 O2 Delivery Nasal Cannula Nasal Cannula O2 Flow Rate 4.0 4.0 01/06/17 01/06/17 01/06/17 01/06/17 19:38 19:40 20:00 22:00 Temp 97.6 97.6 Pulse 92 Resp 23 B/P (MAP) 121/64 (83) Pulse Ox 96 96 O2 Delivery Nasal Cannula Nasal Cannula Nasal Cannula Nasal Cannula O2 Flow Rate 4.0 3.0 3.0 3.0 01/06/17 01/06/17 01/06/17 01/06/17 22:00 23:24 23:40 23:59 Temp 97.5 97.5 Pulse 84 82 Resp 22 B/P (MAP) 125/64 (84) Pulse Ox 98 99 O2 Delivery Nasal Cannula O2 Flow Rate 3.0 4.0 01/07/17 01/07/17 01/07/17 01/07/17 03:51 08:02 08:23 08:31 Temp 98.1 98.1 Pulse 90 85 Resp 24 16 B/P (MAP) 137/77 (97) Pulse Ox 96 89 96 O2 Delivery Room Air Room Air Nasal Cannula O2 Flow Rate 3.0 01/07/17 09:25 Resp 18 Pulse Ox 96 O2 Delivery Nasal Cannula O2 Flow Rate 3.0 Intake and Output 01/06/17 01/06/17 01/07/17 15:00 23:00 07:00 Intake Total 325 ml 1050 ml 400 ml Output Total 100 ml Balance 325 ml 1050 ml 300 ml Nutrition Consultation Dietary Evaluation: Recommendations by RD: Increase Calorie Intake Comments: Continue nutrition care plan Encourage good PO intake add the renal diet Expected Outcomes/Goals: meet 75% estimated nutrition needs 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
--- NOTE | 2017-01-07 11:06 | PDOC2 ---
CONSULT Date of Consult Date of Consult DATE: 01/07/17 TIME: 10:54 Reason for Consult Reason for Consult: Right heel wound Referring Physician Referring Physician: Dr. Ca Identification/Chief Complaint Chief Complaint Right heel diabetes Arias to ulceration with evidence of fat layer exposure Problems: Source Source: Chart review, Patient History of Present Illness Reason for Visit: This is a 61-year-old patient who is being seen today for care of right heel diabetic ulceration. On hospital presentation, chart documentation described gangrenous change to the right heel. He subsequently underwent operative debridement and placement of negative pressure wound therapy. Evidence of bone involvement was not demonstrated in the OR or with imaging. He was seen by vascular surgery who suggested adequate blood flow to achieve healing and safe debridement. At this time the patient has no significant complaint of discomfort at the site. He is in a heel lift boot. Wound VAC is not in place at this time. Patient is currently undergoing dialysis during the time of my consultation. He is demonstrating mild confusion. Status of prior ulceration history was questionable. Patient does have history of type 2 diabetes, chronic kidney disease, DAVID and currently with metabolic encephalopathy. Past Medical History Cardiovascular: HTN, Hyperlipidemia CENTRAL NERVOUS SYSTEM: CVA, Periperal neuropathy, Other (sleep apnea) GI: GERD Psych: Depression Renal/: Chronic renal insuff Endocrine: Diabetes Family History Family History: Diabetes, Hypertension Social History 1 pack per day ALCOHOL: rare Drugs: None Lives: with Family Current Problem List Problem List Problems Medical Problems: (1) Diabetic foot ulcer Status: Acute (2) Hyperglycemia Status: Acute (3) Sepsis Status: Acute Current Medications Current Medications Current Medications Sodium Chloride 1,000 ml @ 1,000 mls/hr 1X ONCE IV Last administered on 23:15; Start 01/01/17 at 23:00; Stop 01/01/17 at 23:59; Status DC Ampicillin Sodium/ Sulbactam Sodium 3 gm/Sodium Chloride 100 ml @ 200 mls/hr 1X ONCE IV Last administered on 01/01/17 23:43; Start 01/02/17 at 00:00; Stop 01/02/17 at 00:29; Status DC Vancomycin HCl (Vanco Per Pharmacy) 1 each PRN DAILY PRN MC SEE COMMENTS Last administered on 01/02/17 13:53; Start 01/01/17 at 23:30; Stop 01/03/17 at 12:11 ; Status DC Vancomycin HCl 2 gm/Sodium Chloride 500 ml @ 250 mls/hr 1X ONCE IV Last administered on 01/02/17 00:32; Start 01/02/17 at 00:00; Stop 01/02/17 at 01:59 ; Status DC Sodium Chloride 1,000 ml @ 2,000 mls/hr Q30M IV Last administered on 04:10; Start 01/02/17 at 00:00; Stop 01/02/17 at 02:15; Status DC Hydrocortisone Acetate (Anucort-Hc) 25 mg 1X ONCE AL Last administered on 01/01 23:43; Start 01/02/17 at 00:00; Stop 01/02/17 at 00:01; Status DC Hydromorphone HCl (Dilaudid) 1 mg 1X ONCE IV Last administered on 01/02/17 00 :35; Start 01/02/17 at 01:00; Stop 01/02/17 at 01:01; Status DC Ondansetron HCl (Zofran) 4 mg 1X ONCE IV Last administered on 01/02/17 00:35 ; Start 01/02/17 at 01:00; Stop 01/02/17 at 01:01; Status DC Hydromorphone HCl (Dilaudid) 2 mg STK-MED ONCE .ROUTE ; Start 01/02/17 at 00:33 ; Stop 01/02/17 at 00:34; Status DC Ondansetron HCl (Zofran) 4 mg PRN Q8HRS PRN IV NAUSEA/VOMITING; Start 01/02/17 at 01:15; Stop 01/03/17 at 01:14; Status DC Fentanyl Citrate (Fentanyl 2ml Vial) 50 mcg PRN Q2HR PRN IV SEVERE PAIN Last administered on 01/02/17 20:45; Start 01/02/17 at 01:15; Stop 01/03/17 at 01:14 ; Status DC Acetaminophen (Tylenol) 650 mg PRN Q4HRS PRN PO FEVER; Start 01/02/17 at 01:15 ; Stop 01/03/17 at 01:14; Status DC Vancomycin HCl 2 gm/Sodium Chloride 500 ml @ 250 mls/hr Q12H IV Last administered on 01/03/17 00:00; Start 01/02/17 at 12:00; Stop 01/03/17 at 12:11 ; Status DC Vancomycin HCl 1 each 1X ONCE MC Last administered on 01/03/17 11:30; Start 01/03/17 at 11:30; Stop 01/03/17 at 11:31; Status DC Atorvastatin Calcium (Lipitor) 20 mg QHS PO Last administered on 01/06/17 20: 32; Start 01/02/17 at 21:00 Celecoxib (CeleBREX) 200 mg BID PO Last administered on 01/02/17 09:51; Start 01/02/17 at 09:00; Stop 01/02/17 at 10:30; Status DC Vitamin D (Vitamin D3) 1,000 unit DAILY PO Last administered on 01/07/17 08:20 ; Start 01/02/17 at 09:00 Clopidogrel Bisulfate (Plavix) 75 mg DAILY PO Last administered on 01/07/17 08 :25; Start 01/02/17 at 09:00 Losartan Potassium (Cozaar) 50 mg DAILY PO Last administered on 01/03/17 10:41 ; Start 01/02/17 at 09:00; Stop 01/04/17 at 11:25; Status DC Metformin HCl (Glucophage) 500 mg BID PO Last administered on 01/03/17 10:42; Start 01/02/17 at 09:00; Stop 01/04/17 at 11:25; Status DC Tamsulosin HCl (Flomax) 0.4 mg HS PO Last administered on 01/06/17 20:32; Start 01/02/17 at 21:00 Citalopram Hydrobromide (CeleXA) 40 mg DAILY PO Last administered on 01/07/17 08:20; Start 01/02/17 at 09:00 Pantoprazole Sodium (Protonix) 40 mg DAILYAC PO Last administered on 01/07/17 08:20; Start 01/02/17 at 09:00 Gabapentin (Neurontin) 300 mg BID PO Last administered on 01/07/17 08:25; Start 01/02/17 at 09:00 Insulin Aspart (NovoLOG) 23 units TIDAC SQ Last administered on 01/04/17 12:25 ; Start 01/02/17 at 11:30; Stop 01/05/17 at 13:53; Status DC Insulin Aspart (NovoLOG) 0-9 UNITS QIDACHS SQ Last administered on 01/07/17 08 :49; Start 01/02/17 at 11:30 Dextrose (Dextrose 50%-Water Syringe) 12.5 gm PRN Q15MIN PRN IV SEE COMMENTS; Start 01/02/17 at 08:45 Sodium Chloride 1,000 ml @ 100 mls/hr 1X ONCE IV Last administered on 09:50; Start 01/02/17 at 08:45; Stop 01/02/17 at 18:44; Status DC Lidocaine (Lidoderm) 1 patch DAILY TD Last administered on 01/07/17 08:21; Start 01/02/17 at 09:00 Insulin Detemir (Levemir) 40 units DAILY08 SQ Last administered on 01/04/17 09 :57; Start 01/02/17 at 09:00; Stop 01/04/17 at 13:39; Status DC Enoxaparin Sodium (Lovenox Per Pharmacy Prophylaxis Dosing) 1 each PRN DAILY PRN MC SEE COMMENTS; Start 01/02/17 at 09:15; Status Cancel Enoxaparin Sodium (Lovenox 40mg Syringe) 40 mg Q12H SQ Last administered on 21:42; Start 01/02/17 at 10:00; Stop 01/04/17 at 10:18; Status DC Polysaccharide Iron Complex (Niferex 150) 150 mg BID PO Last administered on 08:20; Start 01/02/17 at 12:00 Bisacodyl (Dulcolax Tab) 10 mg DAILY PO Last administered on 01/07/17 08:25; Start 01/02/17 at 12:00 Senna/Docusate Sodium (Senna Plus) 2 tab PRN BID PRN PO CONSTIPATION Last administered on 01/03/17 10:42; Start 01/02/17 at 10:45 Senna/Docusate Sodium (Senna Plus) 1 tab BID PO Last administered on 01/06/17 20:32; Start 01/02/17 at 12:00 Piperacillin Sod/ Tazobactam Sod 3.375 gm/Sodium Chloride 50 ml @ 100 mls/hr Q6H IV Last administered on 01/03/17 10:40; Start 01/02/17 at 16:00; Stop at 12:11; Status DC Sodium Chloride 1,000 ml @ 100 mls/hr Q10H IV ; Start 01/03/17 at 10:45; Stop 01/04/17 at 00:59; Status DC Piperacillin Sod/ Tazobactam Sod 2.25 gm/Sodium Chloride 50 ml @ 100 mls/hr Q8HRS IV Last administered on 01/07/17 04:59; Start 01/03/17 at 14:00 Albuterol/ Ipratropium (Duoneb) 3 ml RTQID NEB Last administered on 01/07/17 08:29; Start 01/03/17 at 16:00 Sodium Chloride 1,000 ml @ 1,000 mls/hr 1X ONCE IV Last administered on 15:16; Start 01/03/17 at 15:15; Stop 01/03/17 at 16:14; Status DC Sodium Bicarbonate 75 meq/Sodium Chloride 1,075 ml @ 75 mls/hr [id number] IV Last administered on 01/04/17 09:52; Start 01/03/17 at 16:00 Sodium Bicarbonate 50 meq 1X ONCE IV Last administered on 01/03/17 16:08; Start 01/03/17 at 16:00; Stop 01/03/17 at 16:15; Status DC Sodium Bicarbonate 50 meq 1X ONCE IV Last administered on 01/03/17 16:09; Start 01/03/17 at 16:00; Stop 01/03/17 at 16:15; Status DC Sodium Bicarbonate 50 meq 1X ONCE IV Last administered on 01/03/17 16:09; Start 01/03/17 at 16:00; Stop 01/03/17 at 16:15; Status DC Sodium Chloride 500 ml @ 500 mls/hr PRN Q4HRS PRN IV HYPOTENSION; Start at 16:00 Acetaminophen (Acetaminophen Supp) 650 mg PRN Q6HRS PRN AL MILD PAIN / TEMP Last administered on 01/04/17 02:43; Start 01/04/17 at 02:00 Enoxaparin Sodium (Lovenox 40mg Syringe) 40 mg HS SQ ; Start 01/04/17 at 21:00; Stop 01/04/17 at 21:00; Status DC Lidocaine/Sodium Bicarbonate (Buffered Lidocaine 1%) 3 ml 1X ONCE IJ Last administered on 01/04/17 11:50; Start 01/04/17 at 11:30; Stop 01/04/17 at 11:31 ; Status DC Heparin Sodium/ Sodium Chloride 60 unit 1X ONCE IV Last administered on 11:50; Start 01/04/17 at 11:30; Stop 01/04/17 at 11:31; Status DC Heparin Sodium (Porcine) (Heparin Sodium) 2,500 unit 1X ONCE INT CAT Last administered on 01/04/17 11:51; Start 01/04/17 at 11:30; Stop 01/04/17 at 11:31 ; Status DC Heparin Sodium (Porcine) (Heparin Sodium) 10,000 unit STK-MED ONCE .ROUTE ; Start 01/04/17 at 11:22; Stop 01/04/17 at 11:23; Status DC Furosemide (Lasix) 40 mg BID92 IVP ; Start 01/04/17 at 11:30; Stop 01/04/17 at 14:58; Status DC Darbepoetin Robert (Aranesp) 60 mcg WEEKLYHS SQ Last administered on 01/04/17 20 :45; Start 01/04/17 at 21:00 Sodium Chloride 1,000 ml @ 1,000 mls/hr Q1H PRN IV hypotension; Start 01/04/17 at 13:02; Stop 01/04/17 at 19:01; Status DC Diphenhydramine HCl (Benadryl) 25 mg 1X PRN PRN IV ITCHING; Start 01/04/17 at 13:15; Stop 01/05/17 at 13:14; Status DC Diphenhydramine HCl (Benadryl) 25 mg 1X PRN PRN IV ITCHING; Start 01/04/17 at 13:15; Stop 01/05/17 at 13:14; Status DC Info (PHARMACY MONITORING -- do not chart) 1 each PRN DAILY PRN MC SEE COMMENTS ; Start 01/04/17 at 13:15; Status UNV Info (PHARMACY MONITORING -- do not chart) 1 each PRN DAILY PRN MC SEE COMMENTS ; Start 01/04/17 at 13:15 Insulin Detemir (Levemir) 45 units DAILY08 SQ Last administered on 01/07/17 08 :31; Start 01/04/17 at 14:00 Heparin Sodium (Porcine) (Heparin Sq) 5,000 unit Q8HRS SQ Last administered on 01/07/17 05:08; Start 01/04/17 at 14:00 Ondansetron HCl (Zofran) 4 mg PRN Q6HRS PRN IV NAUSEA/VOMITING; Start 01/05/17 at 07:00; Stop 01/06/17 at 06:59; Status DC Fentanyl Citrate (Fentanyl 2ml Vial) 25 mcg PRN Q5MIN PRN IV MILD PAIN; Start 01/05/17 at 07:00; Stop 01/06/17 at 06:59; Status DC Fentanyl Citrate (Fentanyl 2ml Vial) 50 mcg PRN Q5MIN PRN IV MODERATE PAIN; Start 01/05/17 at 07:00; Stop 01/06/17 at 06:59; Status DC Ringer's Solution 1,000 ml @ 30 mls/hr Q24H IV ; Start 01/05/17 at 07:00; Stop 01/05/17 at 18:59; Status DC Lidocaine HCl 2 ml PRN 1X PRN ID PRIOR TO IV START; Start 01/05/17 at 07:00; Stop 01/06/17 at 06:59; Status DC Prochlorperazine Edisylate (Compazine) 5 mg PACU PRN PRN IV NAUSEA, MRX1; Start 01/05/17 at 07:00; Stop 01/06/17 at 06:59; Status DC Furosemide (Lasix) 40 mg BID92 IVP Last administered on 01/05/17 18:23; Start 01/04/17 at 21:00; Stop 01/06/17 at 14:28; Status DC Oxycodone/ Acetaminophen (Percocet 5/325) 1 tab PRN Q4HRS PRN PO PAIN Last administered on 01/04/17 20:44; Start 01/04/17 at 20:30 Fentanyl Citrate (Fentanyl 2ml Vial) 50 mcg PRN Q2HR PRN IV SEVERE PAIN Last administered on 01/06/17 05:33; Start 01/05/17 at 06:00 Sodium Chloride 1,000 ml @ 1,000 mls/hr Q1H PRN IV hypotension; Start 01/05/17 at 11:47; Stop 01/05/17 at 17:46; Status DC Sodium Chloride (Normal Saline Flush) 10 ml 1X PRN PRN IV AP catheter pack; Start 01/05/17 at 12:00; Stop 01/06/17 at 11:59; Status DC Sodium Chloride (Normal Saline Flush) 10 ml 1X PRN PRN IV CARGO CHECKER catheter pack; Start 01/05/17 at 12:00; Stop 01/06/17 at 11:59; Status DC Sodium Chloride 1,000 ml @ 400 mls/hr Q2H30M PRN IV PATENCY; Start 01/05/17 at 11:47; Stop 01/05/17 at 23:46; Status DC Info (PHARMACY MONITORING -- do not chart) 1 each PRN DAILY PRN MC SEE COMMENTS ; Start 01/05/17 at 12:00; Status UNV Info (PHARMACY MONITORING -- do not chart) 1 each PRN DAILY PRN MC SEE COMMENTS ; Start 01/05/17 at 12:00; Status UNV Propofol 20 ml @ As Directed STK-MED ONCE IV ; Start 01/05/17 at 13:42; Stop at 13:43; Status DC Dexamethasone Sodium Phosphate (Decadron) 20 mg STK-MED ONCE .ROUTE ; Start at 13:42; Stop 01/05/17 at 13:43; Status DC Ondansetron HCl (Zofran) 4 mg STK-MED ONCE .ROUTE ; Start 01/05/17 at 13:42; Stop 01/05/17 at 13:43; Status DC Lidocaine HCl (Lidocaine Pf 2% Vial) 5 ml STK-MED ONCE .ROUTE ; Start 01/05/17 at 13:42; Stop 01/05/17 at 13:43; Status DC Insulin Aspart (NovoLOG) 15 units TIDAC SQ Last administered on 01/07/17t 08:48 ; Start 01/05/17 at 16:30 Fentanyl Citrate (Fentanyl 2ml Vial) 100 mcg STK-MED ONCE .ROUTE ; Start at 14:28; Stop 01/05/17 at 14:29; Status DC Midazolam HCl (Versed) 2 mg STK-MED ONCE .ROUTE ; Start 01/05/17 at 14:28; Stop 01/05/17 at 14:29; Status DC Desflurane (Suprane) 30 ml STK-MED ONCE IH ; Start 01/05/17 at 15:05; Stop 01/05 at 15:06; Status DC Oxycodone HCl (Roxicodone) 5 mg PRN Q3HRS PRN PO PAIN; Start 01/05/17 at 15:30 Fentanyl Citrate (Fentanyl 2ml Vial) 25 mcg PRN Q1HR PRN IV PAIN; Start at 15:30 Senna/Docusate Sodium (Senna Plus) 1 tab DAILY PO Last administered on 08:22; Start 01/06/17 at 09:00 Polyethylene Glycol (miraLAX PACKET) 17 gm PRN DAILY PRN PO CONSTIPATION; Start 01/05/17 at 15:30 Ondansetron HCl (Zofran) 4 mg PRN Q4HRS PRN IV NAUSEA/VOMITING; Start 01/05/17 at 15:30 Magnesium Hydroxide (Milk Of Magnesia) 2,400 mg 1X PRN PRN PO CONSTIPATION; Start 01/06/17 at 06:00; Stop 01/07/17 at 05:59; Status DC Bisacodyl (Dulcolax Supp) 10 mg 1X PRN PRN AL CONSTIPATION; Start 01/06/17 at 16:00; Stop 01/07/17 at 15:59 Acetaminophen/ Hydrocodone Bitart (Lortab 7.5/325) 1 tab PRN Q4HRS PRN PO PAIN Last administered on 01/07/17 08:23; Start 01/05/17 at 15:30 Dextrose (Dextrose 50%-Water Syringe) 12.5 gm PRN Q15MIN PRN IV SEE COMMENTS; Start 01/05/17 at 15:30; Status Cancel Sodium Chloride 1,000 ml @ 1,000 mls/hr Q1H PRN IV hypotension; Start 01/06/17 at 12:10; Stop 01/06/17 at 19:00; Status DC Diphenhydramine HCl (Benadryl) 25 mg 1X PRN PRN IV ITCHING; Start 01/06/17 at 12:15; Stop 01/06/17 at 19:00; Status DC Diphenhydramine HCl (Benadryl) 25 mg 1X PRN PRN IV ITCHING; Start 01/06/17 at 12:15; Stop 01/06/17 at 19:00; Status DC Info (PHARMACY MONITORING -- do not chart) 1 each PRN DAILY PRN MC SEE COMMENTS ; Start 01/06/17 at 12:15; Status UNV Furosemide (Lasix) 80 mg BID92 IVP Last administered on 01/06/17t 17:16; Start 01/06/17 at 14:30 Active Scripts Active Reported Humalog (Insulin Lispro) 100 Unit/1 Ml Cartridge 23 Unit SQ TIDAC Vitamin D3 (Cholecalciferol (Vitamin D3)) 1,000 Unit Tablet 1 Tab PO DAILY Nexium Capsule (Esomeprazole Magnesium) 40 Mg Capsule.dr 1 Cap PO DAILY Losartan Potassium 50 Mg Tablet 50 Mg PO DAILY Gabapentin 300 Mg Capsule 300 Mg PO BID Celebrex (Celecoxib) 200 Mg Capsule 200 Mg PO BID 30 Days Citalopram Hbr (Citalopram Hydrobromide) 40 Mg Tablet 40 Mg PO DAILY Lipitor (Atorvastatin Calcium) 20 Mg Tablet 20 Mg PO QHS Flomax (Tamsulosin Hcl) 0.4 Mg Cap.er.24h 0.4 Mg PO HS Metformin Hcl 500 Mg Tablet 500 Mg PO BID Plavix (Clopidogrel Bisulfate) 75 Mg Tablet 75 Mg PO DAILY Allergies Allergies: Coded Allergies: morphine (Verified Allergy, Intermediate, 01/05/17) causes hallucinations ROS General: YES: Fatigue PSYCHOLOGICAL ROS: YES: Concentration difficultie Respiratory: YES: Other (patient denies current shortness of breath) Musculoskeletal: Yes Other (not tested) Neurological: Yes Confusion (mild confusion is demonstrated) Skin: Yes Other (right heel diabetic Arias to ulceration with evidence of fat layer exposure.) Physical Exam General: No acute distress HEENT: Atraumatic, PERRLA, EOMI, Mucous membr. moist/pink Lungs: Other (clear anteriorly) Heart: Regular rate Abdomen: Soft, No tenderness Extremities: Other (mild lower extremity edema) Skin: Other (diabetic Arias to ulceration of the right heel) Psych/Mental Status: Other (mild confusion demonstrated) Vitals VITALS Vital Signs Date Time Temp Pulse Resp B/P (MAP) Pulse Ox O2 Delivery O2 Flow Rate FiO2 01/07/17 09:25 18 96 Nasal Cannula 3.0 01/07/17 08:02 98.1 85 137/77 (97) 98.1 Labs Labs Laboratory Tests Test 01/05/17 11:24 01/05/17 14:16 01/05/17 16:43 01/05/17 17:19 Glucose (Fingerstick) 103 mg/dL (70-99) 116 mg/dL (70-99) 122 mg/dL (70-99) 126 mg/dL (70-99) Test 01/05/17 20:38 01/06/17 05:15 01/06/17 12:08 01/06/17 17:23 Glucose (Fingerstick) 174 mg/dL (70-99) 257 mg/dL (70-99) 149 mg/dL (70-99) White Blood Count 9.4 x10^3/uL (4.0-11.0) Red Blood Count 2.20 x10^6/uL (4.30-5.70) Hemoglobin 6.9 g/dL (13.0-17.5) Hematocrit 20.7 % (39.0-53.0) Mean Corpuscular Volume 94 fL (79-100) Mean Corpuscular Hemoglobin 32 pg (25-35) Mean Corpuscular Hemoglobin Concent 34 g/dL (31-37) Red Cell Distribution Width 15.5 % (11.5-14.5) Platelet Count 152 x10^3/uL (140-400) Neutrophils (%) (Auto) 80 % (31-73) Lymphocytes (%) (Auto) 6 % (24-48) Monocytes (%) (Auto) 13 % (0-9) Eosinophils (%) (Auto) 1 % (0-3) Basophils (%) (Auto) 0 % (0-3) Neutrophils # (Auto) 7.5 x10^3uL (1.8-7.7) Lymphocytes # (Auto) 0.5 x10^3/uL (1.0-4.8) Monocytes # (Auto) 1.2 x10^3/uL (0.0-1.1) Eosinophils # (Auto) 0.1 x10^3/uL (0.0-0.7) Basophils # (Auto) 0.0 x10^3/uL (0.0-0.2) Sodium Level 135 mmol/L (136-145) Potassium Level 3.9 mmol/L (3.5-5.1) Chloride Level 97 mmol/L (98-107) Carbon Dioxide Level 27 mmol/L (21-32) Anion Gap 11 (6-14) Blood Urea Nitrogen 38 mg/dL (8-26) Creatinine 4.0 mg/dL (0.7-1.3) Estimated GFR (Cockcroft-Gault) 15.3 Glucose Level 157 mg/dL (70-99) Calcium Level 8.2 mg/dL (8.5-10.1) Test 01/06/17 20:37 01/07/17 05:00 01/07/17 08:16 Glucose (Fingerstick) 196 mg/dL (70-99) 210 mg/dL (70-99) White Blood Count 11.1 x10^3/uL (4.0-11.0) Red Blood Count 2.54 x10^6/uL (4.30-5.70) Hemoglobin 8.1 g/dL (13.0-17.5) Hematocrit 23.0 % (39.0-53.0) Mean Corpuscular Volume 91 fL (79-100) Mean Corpuscular Hemoglobin 32 pg (25-35) Mean Corpuscular Hemoglobin Concent 35 g/dL (31-37) Red Cell Distribution Width 15.3 % (11.5-14.5) Platelet Count 204 x10^3/uL (140-400) Neutrophils (%) (Auto) 83 % (31-73) Lymphocytes (%) (Auto) 6 % (24-48) Monocytes (%) (Auto) 10 % (0-9) Eosinophils (%) (Auto) 1 % (0-3) Basophils (%) (Auto) 1 % (0-3) Neutrophils # (Auto) 9.1 x10^3uL (1.8-7.7) Lymphocytes # (Auto) 0.6 x10^3/uL (1.0-4.8) Monocytes # (Auto) 1.1 x10^3/uL (0.0-1.1) Eosinophils # (Auto) 0.1 x10^3/uL (0.0-0.7) Basophils # (Auto) 0.1 x10^3/uL (0.0-0.2) Sodium Level 137 mmol/L (136-145) Potassium Level 4.1 mmol/L (3.5-5.1) Chloride Level 97 mmol/L (98-107) Carbon Dioxide Level 32 mmol/L (21-32) Anion Gap 8 (6-14) Blood Urea Nitrogen 37 mg/dL (8-26) Creatinine 3.7 mg/dL (0.7-1.3) Estimated GFR (Cockcroft-Gault) 16.7 Glucose Level 190 mg/dL (70-99) Calcium Level 7.7 mg/dL (8.5-10.1) Laboratory Tests Test 01/06/17 12:08 01/06/17 17:23 01/06/17 20:37 01/07/17 05:00 Glucose (Fingerstick) 257 mg/dL (70-99) 149 mg/dL (70-99) 196 mg/dL (70-99) White Blood Count 11.1 x10^3/uL (4.0-11.0) Red Blood Count 2.54 x10^6/uL (4.30-5.70) Hemoglobin 8.1 g/dL (13.0-17.5) Hematocrit 23.0 % (39.0-53.0) Mean Corpuscular Volume 91 fL (79-100) Mean Corpuscular Hemoglobin 32 pg (25-35) Mean Corpuscular Hemoglobin Concent 35 g/dL (31-37) Red Cell Distribution Width 15.3 % (11.5-14.5) Platelet Count 204 x10^3/uL (140-400) Neutrophils (%) (Auto) 83 % (31-73) Lymphocytes (%) (Auto) 6 % (24-48) Monocytes (%) (Auto) 10 % (0-9) Eosinophils (%) (Auto) 1 % (0-3) Basophils (%) (Auto) 1 % (0-3) Neutrophils # (Auto) 9.1 x10^3uL (1.8-7.7) Lymphocytes # (Auto) 0.6 x10^3/uL (1.0-4.8) Monocytes # (Auto) 1.1 x10^3/uL (0.0-1.1) Eosinophils # (Auto) 0.1 x10^3/uL (0.0-0.7) Basophils # (Auto) 0.1 x10^3/uL (0.0-0.2) Sodium Level 137 mmol/L (136-145) Potassium Level 4.1 mmol/L (3.5-5.1) Chloride Level 97 mmol/L (98-107) Carbon Dioxide Level 32 mmol/L (21-32) Anion Gap 8 (6-14) Blood Urea Nitrogen 37 mg/dL (8-26) Creatinine 3.7 mg/dL (0.7-1.3) Estimated GFR (Cockcroft-Gault) 16.7 Glucose Level 190 mg/dL (70-99) Calcium Level 7.7 mg/dL (8.5-10.1) Test 01/07/17 08:16 Glucose (Fingerstick) 210 mg/dL (70-99) Assessment/Plan Assessment/Plan Diabetic Arias to ulceration of the right heel with fat layer exposure Would recommend current negative pressure wound therapy and heel lift boot as previously prescribed. Upon discharge, it is likely aqua cell AG will be sufficient to continue manage this ulcer. Would recommend heel sparing shoe for offloading at that point. Would be happy to follow along to wound closure in the wound clinic. AYLIN CHRISTENSEN DO Jan 07, 2017 11:06
[2017-01-07] MEDS ORDERED: DIALYSIS PATIENT. MC PRN ×2 (11:45)
[2017-01-07] MEDS ORDERED: 0.9 % SODIUM CHLORIDE 10 ML DISP.SYRIN. IV PRN ×2 (11:45)
[2017-01-07] MEDS ORDERED: IV NORMAL SALINE 1000ML BAG 1,000 ML IV PRN ×2 (11:45)
--- NOTE | 2017-01-07 12:08 | PDOC ---
PROGRESS NOTES Chief Complaint Chief Complaint Chief complaint: Right lower extremity ulcer Assessment and plan Altered mental status,: Unclear etiology, suspected due to hyperglycemia and acidosis, metabolic encephalopathy with BRYCE Right lower extremity heel ulcer, osteomyelitis ruled out: Imaging studies reviewed discussed with Dr. Biswas, orthopedics is planning for a debridement and the VAC placement. Elevated WBC: Continue current antibiotics Zosyn and vancomycin, fu with ID Metabolic acidosis: Likely related to infection: Ordered blood cultures, and all of temperature spike this morning Acute kidney injury: fu with renal ,new HD 01/04 Type 2 diabetes mellitus with hyperglycemia: Sliding scale insulin, increase levemir ot 45u daily, decrease aspart to 15u tid. Chronic kidney disease unknown baseline : Morbid obesity with sleep apnea: Try BiPAP based on ABGs Peripheral artery disease: Arterial ultrasound reviewed and venous Doppler revealed no DVTs discussed with Dr. Biswas, no plans for angiography based on renal functions at this time. Anemia, chronic dz, 1u PRBC 01/06 1/5 + bacteremia, LIKELY CONtamination, fu with ID, on zosyn cont HD x3ds now, fu with vascular, need i and d eventually, monitor glucose, Hb , on ZOSYN, ok to transfer out of ICU. PTOT History of Present Illness History of Present Illness Seen in HD- HD start from 01/04, 01/05, 01/06 Asleep, no RN issues LAbs reviewed, chronic right heel unhealing wound forgetful, cough with mucus hyperglycemia better hb6.9 today, 1u PrBC s/p PLAN: On iV abx IV lasix ESRd - new Screen for LTAC Vitals Vitals Vital Signs Date Time Temp Pulse Resp B/P (MAP) Pulse Ox O2 Delivery O2 Flow Rate FiO2 01/07/17 09:25 18 96 Nasal Cannula 3.0 01/07/17 08:02 98.1 85 137/77 (97) 98.1 Physical Exam General: No acute distress Heart: Regular rate Lungs: Clear, Crackles Abdomen: Soft, No tenderness Extremities: No clubbing, Other (mild lower extremity edema) Skin: No rashes, Other (diabetic Arias to ulceration of the right heel) Labs LABS Laboratory Tests Test 01/06/17 12:08 01/06/17 17:23 01/06/17 20:37 01/07/17 05:00 Glucose (Fingerstick) 257 mg/dL (70-99) 149 mg/dL (70-99) 196 mg/dL (70-99) White Blood Count 11.1 x10^3/uL (4.0-11.0) Red Blood Count 2.54 x10^6/uL (4.30-5.70) Hemoglobin 8.1 g/dL (13.0-17.5) Hematocrit 23.0 % (39.0-53.0) Mean Corpuscular Volume 91 fL (79-100) Mean Corpuscular Hemoglobin 32 pg (25-35) Mean Corpuscular Hemoglobin Concent 35 g/dL (31-37) Red Cell Distribution Width 15.3 % (11.5-14.5) Platelet Count 204 x10^3/uL (140-400) Neutrophils (%) (Auto) 83 % (31-73) Lymphocytes (%) (Auto) 6 % (24-48) Monocytes (%) (Auto) 10 % (0-9) Eosinophils (%) (Auto) 1 % (0-3) Basophils (%) (Auto) 1 % (0-3) Neutrophils # (Auto) 9.1 x10^3uL (1.8-7.7) Lymphocytes # (Auto) 0.6 x10^3/uL (1.0-4.8) Monocytes # (Auto) 1.1 x10^3/uL (0.0-1.1) Eosinophils # (Auto) 0.1 x10^3/uL (0.0-0.7) Basophils # (Auto) 0.1 x10^3/uL (0.0-0.2) Sodium Level 137 mmol/L (136-145) Potassium Level 4.1 mmol/L (3.5-5.1) Chloride Level 97 mmol/L (98-107) Carbon Dioxide Level 32 mmol/L (21-32) Anion Gap 8 (6-14) Blood Urea Nitrogen 37 mg/dL (8-26) Creatinine 3.7 mg/dL (0.7-1.3) Estimated GFR (Cockcroft-Gault) 16.7 Glucose Level 190 mg/dL (70-99) Calcium Level 7.7 mg/dL (8.5-10.1) Test 01/07/17 08:16 Glucose (Fingerstick) 210 mg/dL (70-99) Review of Systems Review of Systems asleep - neg 14 pt Assessment and Plan Assessmemt and Plan Problems Medical Problems: (1) Diabetic foot ulcer Status: Acute (2) Hyperglycemia Status: Acute (3) Sepsis Status: Acute Problems: Comment Review of Relevant I have reviewed the following items lauryn (where applicable) has been applied. Labs Laboratory Tests Test 01/05/17 14:16 01/05/17 16:43 01/05/17 17:19 01/05/17 20:38 Glucose (Fingerstick) 116 mg/dL (70-99) 122 mg/dL (70-99) 126 mg/dL (70-99) 174 mg/dL (70-99) Test 01/06/17 05:15 01/06/17 12:08 01/06/17 17:23 01/06/17 20:37 White Blood Count 9.4 x10^3/uL (4.0-11.0) Red Blood Count 2.20 x10^6/uL (4.30-5.70) Hemoglobin 6.9 g/dL (13.0-17.5) Hematocrit 20.7 % (39.0-53.0) Mean Corpuscular Volume 94 fL (79-100) Mean Corpuscular Hemoglobin 32 pg (25-35) Mean Corpuscular Hemoglobin Concent 34 g/dL (31-37) Red Cell Distribution Width 15.5 % (11.5-14.5) Platelet Count 152 x10^3/uL (140-400) Neutrophils (%) (Auto) 80 % (31-73) Lymphocytes (%) (Auto) 6 % (24-48) Monocytes (%) (Auto) 13 % (0-9) Eosinophils (%) (Auto) 1 % (0-3) Basophils (%) (Auto) 0 % (0-3) Neutrophils # (Auto) 7.5 x10^3uL (1.8-7.7) Lymphocytes # (Auto) 0.5 x10^3/uL (1.0-4.8) Monocytes # (Auto) 1.2 x10^3/uL (0.0-1.1) Eosinophils # (Auto) 0.1 x10^3/uL (0.0-0.7) Basophils # (Auto) 0.0 x10^3/uL (0.0-0.2) Sodium Level 135 mmol/L (136-145) Potassium Level 3.9 mmol/L (3.5-5.1) Chloride Level 97 mmol/L (98-107) Carbon Dioxide Level 27 mmol/L (21-32) Anion Gap 11 (6-14) Blood Urea Nitrogen 38 mg/dL (8-26) Creatinine 4.0 mg/dL (0.7-1.3) Estimated GFR (Cockcroft-Gault) 15.3 Glucose Level 157 mg/dL (70-99) Calcium Level 8.2 mg/dL (8.5-10.1) Glucose (Fingerstick) 257 mg/dL (70-99) 149 mg/dL (70-99) 196 mg/dL (70-99) Test 01/07/17 05:00 01/07/17 08:16 White Blood Count 11.1 x10^3/uL (4.0-11.0) Red Blood Count 2.54 x10^6/uL (4.30-5.70) Hemoglobin 8.1 g/dL (13.0-17.5) Hematocrit 23.0 % (39.0-53.0) Mean Corpuscular Volume 91 fL (79-100) Mean Corpuscular Hemoglobin 32 pg (25-35) Mean Corpuscular Hemoglobin Concent 35 g/dL (31-37) Red Cell Distribution Width 15.3 % (11.5-14.5) Platelet Count 204 x10^3/uL (140-400) Neutrophils (%) (Auto) 83 % (31-73) Lymphocytes (%) (Auto) 6 % (24-48) Monocytes (%) (Auto) 10 % (0-9) Eosinophils (%) (Auto) 1 % (0-3) Basophils (%) (Auto) 1 % (0-3) Neutrophils # (Auto) 9.1 x10^3uL (1.8-7.7) Lymphocytes # (Auto) 0.6 x10^3/uL (1.0-4.8) Monocytes # (Auto) 1.1 x10^3/uL (0.0-1.1) Eosinophils # (Auto) 0.1 x10^3/uL (0.0-0.7) Basophils # (Auto) 0.1 x10^3/uL (0.0-0.2) Sodium Level 137 mmol/L (136-145) Potassium Level 4.1 mmol/L (3.5-5.1) Chloride Level 97 mmol/L (98-107) Carbon Dioxide Level 32 mmol/L (21-32) Anion Gap 8 (6-14) Blood Urea Nitrogen 37 mg/dL (8-26) Creatinine 3.7 mg/dL (0.7-1.3) Estimated GFR (Cockcroft-Gault) 16.7 Glucose Level 190 mg/dL (70-99) Calcium Level 7.7 mg/dL (8.5-10.1) Glucose (Fingerstick) 210 mg/dL (70-99) Laboratory Tests Test 01/06/17 12:08 01/06/17 17:23 01/06/17 20:37 01/07/17 05:00 Glucose (Fingerstick) 257 mg/dL (70-99) 149 mg/dL (70-99) 196 mg/dL (70-99) White Blood Count 11.1 x10^3/uL (4.0-11.0) Red Blood Count 2.54 x10^6/uL (4.30-5.70) Hemoglobin 8.1 g/dL (13.0-17.5) Hematocrit 23.0 % (39.0-53.0) Mean Corpuscular Volume 91 fL (79-100) Mean Corpuscular Hemoglobin 32 pg (25-35) Mean Corpuscular Hemoglobin Concent 35 g/dL (31-37) Red Cell Distribution Width 15.3 % (11.5-14.5) Platelet Count 204 x10^3/uL (140-400) Neutrophils (%) (Auto) 83 % (31-73) Lymphocytes (%) (Auto) 6 % (24-48) Monocytes (%) (Auto) 10 % (0-9) Eosinophils (%) (Auto) 1 % (0-3) Basophils (%) (Auto) 1 % (0-3) Neutrophils # (Auto) 9.1 x10^3uL (1.8-7.7) Lymphocytes # (Auto) 0.6 x10^3/uL (1.0-4.8) Monocytes # (Auto) 1.1 x10^3/uL (0.0-1.1) Eosinophils # (Auto) 0.1 x10^3/uL (0.0-0.7) Basophils # (Auto) 0.1 x10^3/uL (0.0-0.2) Sodium Level 137 mmol/L (136-145) Potassium Level 4.1 mmol/L (3.5-5.1) Chloride Level 97 mmol/L (98-107) Carbon Dioxide Level 32 mmol/L (21-32) Anion Gap 8 (6-14) Blood Urea Nitrogen 37 mg/dL (8-26) Creatinine 3.7 mg/dL (0.7-1.3) Estimated GFR (Cockcroft-Gault) 16.7 Glucose Level 190 mg/dL (70-99) Calcium Level 7.7 mg/dL (8.5-10.1) Test 01/07/17 08:16 Glucose (Fingerstick) 210 mg/dL (70-99) Microbiology 01/03/17 Blood Culture - Preliminary, Resulted 01/03/17 Blood Culture Result 1 (LIONEL) - Preliminary, Resulted 01/03/17 Antimicrobic Susceptibility - Preliminary, Resulted 01/03/17 Urine Culture - Final, Complete 01/03/17 Urine Culture Result 1 (LIONEL) - Final, Complete Medications Current Medications Sodium Chloride 1,000 ml @ 1,000 mls/hr 1X ONCE IV Last administered on 23:15; Start 01/01/17 at 23:00; Stop 01/01/17 at 23:59; Status DC Ampicillin Sodium/ Sulbactam Sodium 3 gm/Sodium Chloride 100 ml @ 200 mls/hr 1X ONCE IV Last administered on 01/01/17 23:43; Start 01/02/17 at 00:00; Stop 01/02/17 at 00:29; Status DC Vancomycin HCl (Vanco Per Pharmacy) 1 each PRN DAILY PRN MC SEE COMMENTS Last administered on 01/02/17 13:53; Start 01/01/17 at 23:30; Stop 01/03/17 at 12:11 ; Status DC Vancomycin HCl 2 gm/Sodium Chloride 500 ml @ 250 mls/hr 1X ONCE IV Last administered on 01/02/17 00:32; Start 01/02/17 at 00:00; Stop 01/02/17 at 01:59 ; Status DC Sodium Chloride 1,000 ml @ 2,000 mls/hr Q30M IV Last administered on 04:10; Start 01/02/17 at 00:00; Stop 01/02/17 at 02:15; Status DC Hydrocortisone Acetate (Anucort-Hc) 25 mg 1X ONCE ND Last administered on 01/01 23:43; Start 01/02/17 at 00:00; Stop 01/02/17 at 00:01; Status DC Hydromorphone HCl (Dilaudid) 1 mg 1X ONCE IV Last administered on 01/02/17 00 :35; Start 01/02/17 at 01:00; Stop 01/02/17 at 01:01; Status DC Ondansetron HCl (Zofran) 4 mg 1X ONCE IV Last administered on 01/02/17 00:35 ; Start 01/02/17 at 01:00; Stop 01/02/17 at 01:01; Status DC Hydromorphone HCl (Dilaudid) 2 mg STK-MED ONCE .ROUTE ; Start 01/02/17 at 00:33 ; Stop 01/02/17 at 00:34; Status DC Ondansetron HCl (Zofran) 4 mg PRN Q8HRS PRN IV NAUSEA/VOMITING; Start 01/02/17 at 01:15; Stop 01/03/17 at 01:14; Status DC Fentanyl Citrate (Fentanyl 2ml Vial) 50 mcg PRN Q2HR PRN IV SEVERE PAIN Last administered on 01/02/17 20:45; Start 01/02/17 at 01:15; Stop 01/03/17 at 01:14 ; Status DC Acetaminophen (Tylenol) 650 mg PRN Q4HRS PRN PO FEVER; Start 01/02/17 at 01:15 ; Stop 01/03/17 at 01:14; Status DC Vancomycin HCl 2 gm/Sodium Chloride 500 ml @ 250 mls/hr Q12H IV Last administered on 01/03/17 00:00; Start 01/02/17 at 12:00; Stop 01/03/17 at 12:11 ; Status DC Vancomycin HCl 1 each 1X ONCE MC Last administered on 01/03/17 11:30; Start 01/03/17 at 11:30; Stop 01/03/17 at 11:31; Status DC Atorvastatin Calcium (Lipitor) 20 mg QHS PO Last administered on 01/06/17 20: 32; Start 01/02/17 at 21:00 Celecoxib (CeleBREX) 200 mg BID PO Last administered on 01/02/17 09:51; Start 01/02/17 at 09:00; Stop 01/02/17 at 10:30; Status DC Vitamin D (Vitamin D3) 1,000 unit DAILY PO Last administered on 01/07/17 08:20 ; Start 01/02/17 at 09:00 Clopidogrel Bisulfate (Plavix) 75 mg DAILY PO Last administered on 01/07/17 08 :25; Start 01/02/17 at 09:00 Losartan Potassium (Cozaar) 50 mg DAILY PO Last administered on 01/03/17 10:41 ; Start 01/02/17 at 09:00; Stop 01/04/17 at 11:25; Status DC Metformin HCl (Glucophage) 500 mg BID PO Last administered on 01/03/17 10:42; Start 01/02/17 at 09:00; Stop 01/04/17 at 11:25; Status DC Tamsulosin HCl (Flomax) 0.4 mg HS PO Last administered on 01/06/17 20:32; Start 01/02/17 at 21:00 Citalopram Hydrobromide (CeleXA) 40 mg DAILY PO Last administered on 01/07/17 08:20; Start 01/02/17 at 09:00 Pantoprazole Sodium (Protonix) 40 mg DAILYAC PO Last administered on 01/07/17 08:20; Start 01/02/17 at 09:00 Gabapentin (Neurontin) 300 mg BID PO Last administered on 01/07/17 08:25; Start 01/02/17 at 09:00 Insulin Aspart (NovoLOG) 23 units TIDAC SQ Last administered on 01/04/17 12:25 ; Start 01/02/17 at 11:30; Stop 01/05/17 at 13:53; Status DC Insulin Aspart (NovoLOG) 0-9 UNITS QIDACHS SQ Last administered on 01/07/17 08 :49; Start 01/02/17 at 11:30 Dextrose (Dextrose 50%-Water Syringe) 12.5 gm PRN Q15MIN PRN IV SEE COMMENTS; Start 01/02/17 at 08:45 Sodium Chloride 1,000 ml @ 100 mls/hr 1X ONCE IV Last administered on 09:50; Start 01/02/17 at 08:45; Stop 01/02/17 at 18:44; Status DC Lidocaine (Lidoderm) 1 patch DAILY TD Last administered on 01/07/17 08:21; Start 01/02/17 at 09:00 Insulin Detemir (Levemir) 40 units DAILY08 SQ Last administered on 01/04/17 09 :57; Start 01/02/17 at 09:00; Stop 01/04/17 at 13:39; Status DC Enoxaparin Sodium (Lovenox Per Pharmacy Prophylaxis Dosing) 1 each PRN DAILY PRN MC SEE COMMENTS; Start 01/02/17 at 09:15; Status Cancel Enoxaparin Sodium (Lovenox 40mg Syringe) 40 mg Q12H SQ Last administered on 21:42; Start 01/02/17 at 10:00; Stop 01/04/17 at 10:18; Status DC Polysaccharide Iron Complex (Niferex 150) 150 mg BID PO Last administered on 08:20; Start 01/02/17 at 12:00 Bisacodyl (Dulcolax Tab) 10 mg DAILY PO Last administered on 01/07/17 08:25; Start 01/02/17 at 12:00 Senna/Docusate Sodium (Senna Plus) 2 tab PRN BID PRN PO CONSTIPATION Last administered on 01/03/17 10:42; Start 01/02/17 at 10:45 Senna/Docusate Sodium (Senna Plus) 1 tab BID PO Last administered on 01/06/17 20:32; Start 01/02/17 at 12:00 Piperacillin Sod/ Tazobactam Sod 3.375 gm/Sodium Chloride 50 ml @ 100 mls/hr Q6H IV Last administered on 01/03/17 10:40; Start 01/02/17 at 16:00; Stop at 12:11; Status DC Sodium Chloride 1,000 ml @ 100 mls/hr Q10H IV ; Start 01/03/17 at 10:45; Stop 01/04/17 at 00:59; Status DC Piperacillin Sod/ Tazobactam Sod 2.25 gm/Sodium Chloride 50 ml @ 100 mls/hr Q8HRS IV Last administered on 01/07/17 04:59; Start 01/03/17 at 14:00 Albuterol/ Ipratropium (Duoneb) 3 ml RTQID NEB Last administered on 01/07/17 08:29; Start 01/03/17 at 16:00 Sodium Chloride 1,000 ml @ 1,000 mls/hr 1X ONCE IV Last administered on 15:16; Start 01/03/17 at 15:15; Stop 01/03/17 at 16:14; Status DC Sodium Bicarbonate 75 meq/Sodium Chloride 1,075 ml @ 75 mls/hr [id number] IV Last administered on 01/04/17 09:52; Start 01/03/17 at 16:00 Sodium Bicarbonate 50 meq 1X ONCE IV Last administered on 01/03/17 16:08; Start 01/03/17 at 16:00; Stop 01/03/17 at 16:15; Status DC Sodium Bicarbonate 50 meq 1X ONCE IV Last administered on 01/03/17 16:09; Start 01/03/17 at 16:00; Stop 01/03/17 at 16:15; Status DC Sodium Bicarbonate 50 meq 1X ONCE IV Last administered on 01/03/17 16:09; Start 01/03/17 at 16:00; Stop 01/03/17 at 16:15; Status DC Sodium Chloride 500 ml @ 500 mls/hr PRN Q4HRS PRN IV HYPOTENSION; Start at 16:00 Acetaminophen (Acetaminophen Supp) 650 mg PRN Q6HRS PRN ND MILD PAIN / TEMP Last administered on 01/04/17 02:43; Start 01/04/17 at 02:00 Enoxaparin Sodium (Lovenox 40mg Syringe) 40 mg HS SQ ; Start 01/04/17 at 21:00; Stop 01/04/17 at 21:00; Status DC Lidocaine/Sodium Bicarbonate (Buffered Lidocaine 1%) 3 ml 1X ONCE IJ Last administered on 01/04/17 11:50; Start 01/04/17 at 11:30; Stop 01/04/17 at 11:31 ; Status DC Heparin Sodium/ Sodium Chloride 60 unit 1X ONCE IV Last administered on 11:50; Start 01/04/17 at 11:30; Stop 01/04/17 at 11:31; Status DC Heparin Sodium (Porcine) (Heparin Sodium) 2,500 unit 1X ONCE INT CAT Last administered on 01/04/17 11:51; Start 01/04/17 at 11:30; Stop 01/04/17 at 11:31 ; Status DC Heparin Sodium (Porcine) (Heparin Sodium) 10,000 unit STK-MED ONCE .ROUTE ; Start 01/04/17 at 11:22; Stop 01/04/17 at 11:23; Status DC Furosemide (Lasix) 40 mg BID92 IVP ; Start 01/04/17 at 11:30; Stop 01/04/17 at 14:58; Status DC Darbepoetin Robert (Aranesp) 60 mcg WEEKLYHS SQ Last administered on 01/04/17 20 :45; Start 01/04/17 at 21:00 Sodium Chloride 1,000 ml @ 1,000 mls/hr Q1H PRN IV hypotension; Start 01/04/17 at 13:02; Stop 01/04/17 at 19:01; Status DC Diphenhydramine HCl (Benadryl) 25 mg 1X PRN PRN IV ITCHING; Start 01/04/17 at 13:15; Stop 01/05/17 at 13:14; Status DC Diphenhydramine HCl (Benadryl) 25 mg 1X PRN PRN IV ITCHING; Start 01/04/17 at 13:15; Stop 01/05/17 at 13:14; Status DC Info (PHARMACY MONITORING -- do not chart) 1 each PRN DAILY PRN MC SEE COMMENTS ; Start 01/04/17 at 13:15; Status UNV Info (PHARMACY MONITORING -- do not chart) 1 each PRN DAILY PRN MC SEE COMMENTS ; Start 01/04/17 at 13:15 Insulin Detemir (Levemir) 45 units DAILY08 SQ Last administered on 01/07/17 08 :31; Start 01/04/17 at 14:00 Heparin Sodium (Porcine) (Heparin Sq) 5,000 unit Q8HRS SQ Last administered on 01/07/17 05:08; Start 01/04/17 at 14:00 Ondansetron HCl (Zofran) 4 mg PRN Q6HRS PRN IV NAUSEA/VOMITING; Start 01/05/17 at 07:00; Stop 01/06/17 at 06:59; Status DC Fentanyl Citrate (Fentanyl 2ml Vial) 25 mcg PRN Q5MIN PRN IV MILD PAIN; Start 01/05/17 at 07:00; Stop 01/06/17 at 06:59; Status DC Fentanyl Citrate (Fentanyl 2ml Vial) 50 mcg PRN Q5MIN PRN IV MODERATE PAIN; Start 01/05/17 at 07:00; Stop 01/06/17 at 06:59; Status DC Ringer's Solution 1,000 ml @ 30 mls/hr Q24H IV ; Start 01/05/17 at 07:00; Stop 01/05/17 at 18:59; Status DC Lidocaine HCl 2 ml PRN 1X PRN ID PRIOR TO IV START; Start 01/05/17 at 07:00; Stop 01/06/17 at 06:59; Status DC Prochlorperazine Edisylate (Compazine) 5 mg PACU PRN PRN IV NAUSEA, MRX1; Start 01/05/17 at 07:00; Stop 01/06/17 at 06:59; Status DC Furosemide (Lasix) 40 mg BID92 IVP Last administered on 01/05/17 18:23; Start 01/04/17 at 21:00; Stop 01/06/17 at 14:28; Status DC Oxycodone/ Acetaminophen (Percocet 5/325) 1 tab PRN Q4HRS PRN PO PAIN Last administered on 01/04/17 20:44; Start 01/04/17 at 20:30 Fentanyl Citrate (Fentanyl 2ml Vial) 50 mcg PRN Q2HR PRN IV SEVERE PAIN Last administered on 01/06/17 05:33; Start 01/05/17 at 06:00 Sodium Chloride 1,000 ml @ 1,000 mls/hr Q1H PRN IV hypotension; Start 01/05/17 at 11:47; Stop 01/05/17 at 17:46; Status DC Sodium Chloride (Normal Saline Flush) 10 ml 1X PRN PRN IV AP catheter pack; Start 01/05/17 at 12:00; Stop 01/06/17 at 11:59; Status DC Sodium Chloride (Normal Saline Flush) 10 ml 1X PRN PRN IV ASSURANCE ANALYST catheter pack; Start 01/05/17 at 12:00; Stop 01/06/17 at 11:59; Status DC Sodium Chloride 1,000 ml @ 400 mls/hr Q2H30M PRN IV PATENCY; Start 01/05/17 at 11:47; Stop 01/05/17 at 23:46; Status DC Info (PHARMACY MONITORING -- do not chart) 1 each PRN DAILY PRN MC SEE COMMENTS ; Start 01/05/17 at 12:00; Status UNV Info (PHARMACY MONITORING -- do not chart) 1 each PRN DAILY PRN MC SEE COMMENTS ; Start 01/05/17 at 12:00; Status UNV Propofol 20 ml @ As Directed STK-MED ONCE IV ; Start 01/05/17 at 13:42; Stop at 13:43; Status DC Dexamethasone Sodium Phosphate (Decadron) 20 mg STK-MED ONCE .ROUTE ; Start at 13:42; Stop 01/05/17 at 13:43; Status DC Ondansetron HCl (Zofran) 4 mg STK-MED ONCE .ROUTE ; Start 01/05/17 at 13:42; Stop 01/05/17 at 13:43; Status DC Lidocaine HCl (Lidocaine Pf 2% Vial) 5 ml STK-MED ONCE .ROUTE ; Start 01/05/17 at 13:42; Stop 01/05/17 at 13:43; Status DC Insulin Aspart (NovoLOG) 15 units TIDAC SQ Last administered on 01/07/17t 08:48 ; Start 01/05/17 at 16:30 Fentanyl Citrate (Fentanyl 2ml Vial) 100 mcg STK-MED ONCE .ROUTE ; Start at 14:28; Stop 01/05/17 at 14:29; Status DC Midazolam HCl (Versed) 2 mg STK-MED ONCE .ROUTE ; Start 01/05/17 at 14:28; Stop 01/05/17 at 14:29; Status DC Desflurane (Suprane) 30 ml STK-MED ONCE IH ; Start 01/05/17 at 15:05; Stop 01/05 at 15:06; Status DC Oxycodone HCl (Roxicodone) 5 mg PRN Q3HRS PRN PO PAIN; Start 01/05/17 at 15:30 Fentanyl Citrate (Fentanyl 2ml Vial) 25 mcg PRN Q1HR PRN IV PAIN; Start at 15:30 Senna/Docusate Sodium (Senna Plus) 1 tab DAILY PO Last administered on 08:22; Start 01/06/17 at 09:00 Polyethylene Glycol (miraLAX PACKET) 17 gm PRN DAILY PRN PO CONSTIPATION; Start 01/05/17 at 15:30 Ondansetron HCl (Zofran) 4 mg PRN Q4HRS PRN IV NAUSEA/VOMITING; Start 01/05/17 at 15:30 Magnesium Hydroxide (Milk Of Magnesia) 2,400 mg 1X PRN PRN PO CONSTIPATION; Start 01/06/17 at 06:00; Stop 01/07/17 at 05:59; Status DC Bisacodyl (Dulcolax Supp) 10 mg 1X PRN PRN ND CONSTIPATION; Start 01/06/17 at 16:00; Stop 01/07/17 at 15:59 Acetaminophen/ Hydrocodone Bitart (Lortab 7.5/325) 1 tab PRN Q4HRS PRN PO PAIN Last administered on 01/07/17 08:23; Start 01/05/17 at 15:30 Dextrose (Dextrose 50%-Water Syringe) 12.5 gm PRN Q15MIN PRN IV SEE COMMENTS; Start 01/05/17 at 15:30; Status Cancel Sodium Chloride 1,000 ml @ 1,000 mls/hr Q1H PRN IV hypotension; Start 01/06/17 at 12:10; Stop 01/06/17 at 19:00; Status DC Diphenhydramine HCl (Benadryl) 25 mg 1X PRN PRN IV ITCHING; Start 01/06/17 at 12:15; Stop 01/06/17 at 19:00; Status DC Diphenhydramine HCl (Benadryl) 25 mg 1X PRN PRN IV ITCHING; Start 01/06/17 at 12:15; Stop 01/06/17 at 19:00; Status DC Info (PHARMACY MONITORING -- do not chart) 1 each PRN DAILY PRN MC SEE COMMENTS ; Start 01/06/17 at 12:15; Status UNV Furosemide (Lasix) 80 mg BID92 IVP Last administered on 01/06/17t 17:16; Start 01/06/17 at 14:30 Sodium Chloride 1,000 ml @ 1,000 mls/hr Q1H PRN IV hypotension; Start 01/07/17 at 11:45; Stop 01/07/17 at 17:44 Sodium Chloride (Normal Saline Flush) 10 ml 1X PRN PRN IV AP catheter pack; Start 01/07/17 at 11:45; Stop 01/08/17 at 11:44 Sodium Chloride (Normal Saline Flush) 10 ml 1X PRN PRN IV ASSURANCE ANALYST catheter pack; Start 01/07/17 at 11:45; Stop 01/08/17 at 11:44 Sodium Chloride 1,000 ml @ 400 mls/hr Q2H30M PRN IV PATENCY; Start 01/07/17 at 11:45; Stop 01/07/17 at 23:44 Info (PHARMACY MONITORING -- do not chart) 1 each PRN DAILY PRN MC SEE COMMENTS ; Start 01/07/17 at 11:45; Status UNV Info (PHARMACY MONITORING -- do not chart) 1 each PRN DAILY PRN MC SEE COMMENTS ; Start 01/07/17 at 11:45; Status UNV Active Scripts Active Reported Humalog (Insulin Lispro) 100 Unit/1 Ml Cartridge 23 Unit SQ TIDAC Vitamin D3 (Cholecalciferol (Vitamin D3)) 1,000 Unit Tablet 1 Tab PO DAILY Nexium Capsule (Esomeprazole Magnesium) 40 Mg Capsule.dr 1 Cap PO DAILY Losartan Potassium 50 Mg Tablet 50 Mg PO DAILY Gabapentin 300 Mg Capsule 300 Mg PO BID Celebrex (Celecoxib) 200 Mg Capsule 200 Mg PO BID 30 Days Citalopram Hbr (Citalopram Hydrobromide) 40 Mg Tablet 40 Mg PO DAILY Lipitor (Atorvastatin Calcium) 20 Mg Tablet 20 Mg PO QHS Flomax (Tamsulosin Hcl) 0.4 Mg Cap.er.24h 0.4 Mg PO HS Metformin Hcl 500 Mg Tablet 500 Mg PO BID Plavix (Clopidogrel Bisulfate) 75 Mg Tablet 75 Mg PO DAILY Vitals/I & O Vital Sign - Last 24 Hours 01/06/17 01/06/17 01/06/17 01/06/17 13:50 14:15 14:40 14:40 Temp 98.9 98.6 98.6 98.6 98.9 98.6 98.6 98.6 Pulse 84 79 77 76 Resp 20 20 20 20 B/P (MAP) 108/61 98/56 110/57 110/57 01/06/17 01/06/17 01/06/17 01/06/17 17:00 18:06 18:15 19:38 Temp 98.3 97.9 97.6 98.3 97.9 97.6 Pulse 86 92 85 92 Resp 19 20 23 B/P (MAP) 110/68 (82) 116/65 (82) 116/65 (82) 121/64 (83) Pulse Ox 96 94 96 O2 Delivery Nasal Cannula Nasal Cannula Nasal Cannula O2 Flow Rate 4.0 4.0 4.0 01/06/17 01/06/17 01/06/17 01/06/17 19:40 20:00 22:00 22:00 Pulse Ox 96 O2 Delivery Nasal Cannula Nasal Cannula Nasal Cannula O2 Flow Rate 3.0 3.0 3.0 3.0 01/06/17 01/06/17 01/06/17 01/07/17 23:24 23:40 23:59 03:51 Temp 97.5 97.5 Pulse 84 82 90 Resp 22 B/P (MAP) 125/64 (84) Pulse Ox 98 99 O2 Delivery Nasal Cannula O2 Flow Rate 4.0 01/07/17 01/07/17 01/07/17 01/07/17 08:00 08:02 08:23 08:31 Temp 98.1 98.1 Pulse 85 Resp 24 16 B/P (MAP) 137/77 (97) Pulse Ox 96 89 96 O2 Delivery Nasal Cannula Room Air Room Air Nasal Cannula O2 Flow Rate 3.0 3.0 01/07/17 09:25 Resp 18 Pulse Ox 96 O2 Delivery Nasal Cannula O2 Flow Rate 3.0 Intake and Output 01/06/17 01/06/17 01/07/17 15:00 23:00 07:00 Intake Total 325 ml 1050 ml 400 ml Output Total 100 ml Balance 325 ml 1050 ml 300 ml Nutrition Consultation Dietary Evaluation: Recommendations by RD: Increase Calorie Intake Comments: Continue nutrition care plan Encourage good PO intake add the renal diet Expected Outcomes/Goals: meet 75% estimated nutrition needs 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
--- NOTE | 2017-01-07 12:57 | PDOC ---
Renal-Progress Notes Subjective Notes Notes NO NEW COMPLAINTS History of Present Illness Hx of present illness NO CHANGE Vitals Vitals Vital Signs Date Time Temp Pulse Resp B/P (MAP) Pulse Ox O2 Delivery O2 Flow Rate FiO2 01/07/17 09:25 18 96 Nasal Cannula 3.0 01/07/17 08:02 98.1 85 137/77 (97) 98.1 Weight Weight [ ] I.O. Intake and Output Intake and Output 01/07/17 07:00 Intake Total 1775 ml Output Total 100 ml Balance 1675 ml Intake Oral 1450 ml Blood Product IV Normal Saline Flush 325 ml Output Urine Total 100 ml # Bowel Movements 2 Labs Labs Laboratory Tests Test 01/06/17 17:23 01/06/17 20:37 01/07/17 05:00 01/07/17 08:16 Glucose (Fingerstick) 149 mg/dL (70-99) 196 mg/dL (70-99) 210 mg/dL (70-99) White Blood Count 11.1 x10^3/uL (4.0-11.0) Red Blood Count 2.54 x10^6/uL (4.30-5.70) Hemoglobin 8.1 g/dL (13.0-17.5) Hematocrit 23.0 % (39.0-53.0) Mean Corpuscular Volume 91 fL (79-100) Mean Corpuscular Hemoglobin 32 pg (25-35) Mean Corpuscular Hemoglobin Concent 35 g/dL (31-37) Red Cell Distribution Width 15.3 % (11.5-14.5) Platelet Count 204 x10^3/uL (140-400) Neutrophils (%) (Auto) 83 % (31-73) Lymphocytes (%) (Auto) 6 % (24-48) Monocytes (%) (Auto) 10 % (0-9) Eosinophils (%) (Auto) 1 % (0-3) Basophils (%) (Auto) 1 % (0-3) Neutrophils # (Auto) 9.1 x10^3uL (1.8-7.7) Lymphocytes # (Auto) 0.6 x10^3/uL (1.0-4.8) Monocytes # (Auto) 1.1 x10^3/uL (0.0-1.1) Eosinophils # (Auto) 0.1 x10^3/uL (0.0-0.7) Basophils # (Auto) 0.1 x10^3/uL (0.0-0.2) Sodium Level 137 mmol/L (136-145) Potassium Level 4.1 mmol/L (3.5-5.1) Chloride Level 97 mmol/L (98-107) Carbon Dioxide Level 32 mmol/L (21-32) Anion Gap 8 (6-14) Blood Urea Nitrogen 37 mg/dL (8-26) Creatinine 3.7 mg/dL (0.7-1.3) Estimated GFR (Cockcroft-Gault) 16.7 Glucose Level 190 mg/dL (70-99) Calcium Level 7.7 mg/dL (8.5-10.1) Micro Micro Microbiology 01/03/17 Blood Culture - Preliminary, Resulted 01/03/17 Blood Culture Result 1 ([facility]IONEL) - Preliminary, Resulted 01/03/17 Antimicrobic Susceptibility - Preliminary, Resulted 01/03/17 Urine Culture - Final, Complete 01/03/17 Urine Culture Result 1 (LIONEL) - Final, Complete Review of Systems Constitutional: yes: weakness, alert Ears/Nose/Throat: Yes: no symptom reported Eyes: Yes: no symptom reported Pulmonary: Yes dyspnea Cardiovascular: Yes no symptom reported, Yes edema Gastrointestional: Yes: constipation Skin: Yes no symptom reported Psychiatric/Neurological: Yes: no symptom reported Physical Exam General Appearance: no apparent distress Skin: warm Respiratory: bilateral CTA Heart: S1S2 Abdomen: soft, tenderness Genitourinary: bladder flat Neurology: alert Assessment Assessment IMP BRYCE-ATN AND PROB IN LEUCOCYTOSIS CKD STAGE 3-CR PROB 1.8 AT BASELINE DM II RIGHT HEEL WOUND-DEBRIDEMENT SOMNOLENCE RESP FAILURE WITH POOR COMPLIANCE WITH BIPAP PLAN HD AGAIN TODAY CONT IV LASIX WOUND DEBRIDEMENT ANTIBIOTICS ARANESP TO CONTINUE PULMONARY FOLLOWING TO [facility] SNOW MD Jan 07, 2017 12:57
[2017-01-07 15:00] VITALS: BP 142/86
[2017-01-07 19:40] VITALS: BP 133/77
[2017-01-07] MEDS: TAMSULOSIN 0.4 MG CAP.ER.24H. PO SCH (21:22)
[2017-01-07] MEDS: ATORVASTATIN CALCIUM 20 MG TABLET PO SCH (21:22)
[2017-01-07 23:30] VITALS: BP 115/76
[2017-01-08 03:35] VITALS: BP 159/84
[2017-01-08] MEDS: PIPERACILLIN/TAZOBACTAM 2.25 GM in IV NORMAL SALINE 50ML 50 ML IV SCH (05:32)
[2017-01-08] MEDS: HYDROcodone/APAP 7.5/325MG 1 TAB TABLET PO PRN (05:33)
[2017-01-08] MEDS: HEPARIN PF for SUB-Q USE 5,000 UNIT/0.5 ML VIAL. SQ SCH (05:38)
[2017-01-08 06:12] LABS: CREATININE 4.1 mg/dL (0.7-1.3); GFR 14.9
[2017-01-08 07:15] VITALS: BP 137/79
[2017-01-08] MEDS: IPRATRPIUM/ALBUTEROL 0.5/2.5MG 3 ML NEBU. NEB SCH ×2 (07:47→12:00)
[2017-01-08] MEDS: FUROSEMIDE 100 MG/10 ML VIAL. IVP SCH (08:27)
[2017-01-08] MEDS: LIDOCAINE (700MG/PATCH) PATCH. TD SCH (08:30)
[2017-01-08] MEDS: CHOLECALCIFEROL (VITAMIN D3) 1,000 UNIT TABLET PO SCH (08:39)
[2017-01-08] MEDS: CITALOPRAM 20 MG TABLET. PO SCH (08:39)
[2017-01-08] MEDS: CLOPIDOGREL BISULFATE 75 MG TABLET PO SCH (08:39)
[2017-01-08] MEDS: PANTOPRAZOLE 40 MG TABLET.DR. PO SCH (08:39)
[2017-01-08] MEDS: GABAPENTIN 300 MG CAPSULE. PO SCH (08:40)
[2017-01-08] MEDS: SENNOSIDES/DOCUSATE 8.6/50MG TABLET. PO SCH (08:40)
[2017-01-08] MEDS: IRON POLYSACCHARIDE COMPLEX 150 MG CAPSULE PO SCH (08:40)
[2017-01-08] MEDS: INSULIN DETEMIR 300 UNITS/3 ML INSULN.PEN. SQ SCH (08:49)
[2017-01-08] MEDS: INSULIN ASPART 300 UNITS/3 ML INSULN.PEN SQ SCH ×2 (08:50)
[2017-01-08] MEDS: BISACODYL 5 MG TABLET.DR. PO SCH (09:00)
--- NOTE | 2017-01-08 09:41 | PDOC ---
Renal-Progress Notes Subjective Notes Notes NO NEW COMPLAINTS History of Present Illness Hx of present illness NO CHANGE Vitals Vitals Vital Signs Date Time Temp Pulse Resp B/P (MAP) Pulse Ox O2 Delivery O2 Flow Rate FiO2 01/08/17 07:50 Nasal Cannula 3.0 01/08/17 07:47 94 01/08/17 07:15 98.3 81 20 137/79 (98) 98.3 Weight Weight [ ] I.O. Intake and Output Intake and Output 01/08/17 07:00 Intake Total 1450 ml Output Total 1375 ml Balance 75 ml Intake Oral 1390 ml IV Total 60 ml Output Urine Total 1375 ml Labs Labs Laboratory Tests Test 01/07/17 14:48 01/07/17 17:14 01/07/17 20:28 01/08/17 05:30 Glucose (Fingerstick) 144 mg/dL (70-99) 185 mg/dL (70-99) 202 mg/dL (70-99) Sodium Level 136 mmol/L (136-145) Potassium Level 4.0 mmol/L (3.5-5.1) Chloride Level 99 mmol/L (98-107) Carbon Dioxide Level 29 mmol/L (21-32) Anion Gap 8 (6-14) Blood Urea Nitrogen 43 mg/dL (8-26) Creatinine 4.1 mg/dL (0.7-1.3) Estimated GFR (Cockcroft-Gault) 14.9 Glucose Level 198 mg/dL (70-99) Calcium Level 8.0 mg/dL (8.5-10.1) Test 01/08/17 07:45 Glucose (Fingerstick) 189 mg/dL (70-99) Micro Micro Microbiology 01/03/17 Blood Culture - Final, Complete 01/03/17 Blood Culture Result 1 (LIONEL) - Final, Complete 01/03/17 Antimicrobic Susceptibility - Final, Complete 01/03/17 Urine Culture - Final, Complete 01/03/17 Urine Culture Result 1 (LIONEL) - Final, Complete Review of Systems Constitutional: yes: weakness, alert Ears/Nose/Throat: Yes: no symptom reported Eyes: Yes: no symptom reported Pulmonary: Yes dyspnea Cardiovascular: Yes no symptom reported, Yes edema Gastrointestional: Yes: constipation Skin: Yes no symptom reported Psychiatric/Neurological: Yes: no symptom reported Physical Exam General Appearance: no apparent distress Skin: warm Respiratory: bilateral CTA Heart: S1S2 Abdomen: soft, tenderness Genitourinary: bladder flat Neurology: alert Assessment Assessment IMP BRYCE-ATN AND PROB IN-INCREASING UO LEUCOCYTOSIS CKD STAGE 3-CR PROB 1.8 AT BASELINE DM II RIGHT HEEL WOUND-DEBRIDEMENT SOMNOLENCE RESP FAILURE WITH POOR COMPLIANCE WITH BIPAP PLAN HD AGAIN TODAY CONT IV LASIX WOUND DEBRIDEMENT ANTIBIOTICS ARANESP TO CONTINUE PULMONARY FOLLOWING TO [facility] SNOW MD Jan 08, 2017 09:41
--- NOTE | 2017-01-08 09:42 | PDOC ---
Infectious Disease Note Subjective Subjective Comfortable, denies pain Appetite good ROS ROS GEN: Denies fevers, chills, sweats CV: Denies chest pain RESP: Denies shortness of air, cough GI: Denies n/v/d Vital Sign Vital Signs Vital Signs Date Time Temp Pulse Resp B/P (MAP) Pulse Ox O2 Delivery O2 Flow Rate FiO2 01/08/17 07:50 Nasal Cannula 3.0 01/08/17 07:47 94 01/08/17 07:15 98.3 81 20 137/79 (98) 98.3 Physical Exam PHYSICAL EXAM GENERAL: Propped up in bed, eating, NAD LUNGS: Clear anteriorly HEART: S1S2 ABD: Obese, soft, NT EXT: Right foot wound vac in place. LLE splin/brace t FOOD SAFETY SPECIALIST: Alert, Oriented x 3. SKIN: No rash RIJ/HDC. (01/04). clean Labs Lab Laboratory Tests Test 01/07/17 14:48 01/07/17 17:14 01/07/17 20:28 01/08/17 05:30 Glucose (Fingerstick) 144 mg/dL (70-99) 185 mg/dL (70-99) 202 mg/dL (70-99) Sodium Level 136 mmol/L (136-145) Potassium Level 4.0 mmol/L (3.5-5.1) Chloride Level 99 mmol/L (98-107) Carbon Dioxide Level 29 mmol/L (21-32) Anion Gap 8 (6-14) Blood Urea Nitrogen 43 mg/dL (8-26) Creatinine 4.1 mg/dL (0.7-1.3) Estimated GFR (Cockcroft-Gault) 14.9 Glucose Level 198 mg/dL (70-99) Calcium Level 8.0 mg/dL (8.5-10.1) Test 01/08/17 07:45 Glucose (Fingerstick) 189 mg/dL (70-99) Objective Assessment Gangrenous ulcer of right heel. s/p excisional debridement skin and subcutaneous tissue, 01/05. No intra-op cultures obtained -MRI shows chronic neuropathic arthropathy changes with hardware in place; no definite evidence of acute osteo noted but cannot ruled out entirely with elevated ESR and WBC. CoNS bacteremia (1 of 5 bottles), 01/03, likely contaminate Leukocytosis, better, Lactic acidosis, better BRYCE on CKD, worse. Now on HD Left ankle nondisplaced fracture, splint in place PVD-mild Severe peripheral neuropathy Uncontrolled Type II diabetes mellitus Morbid obesity, BMI 46 Anemia s/p PRBCs 01/06 Plan Plan of Care Continue Zosyn, dose for renal function Last dose vanc 01/03. Trough 46.4 Received dose steroids pre-op, 01/05 Attending Co-Sign The patient was seen and interviewed as well as examined at the bedside. The chart was reviewed. The case was discussed. Agree with the plan of care. ULISSES CABEZAS APRN Jan 08, 2017 09:42 ROLANDO RUIZ MD Jan 08, 2017 12:46
--- NOTE | 2017-01-08 10:02 | PDOC ---
PROGRESS NOTES Subjective Subjective He feels tired of lying in bed all the time. Objective Objective Vital Signs Date Time Temp Pulse Resp B/P (MAP) Pulse Ox O2 Delivery O2 Flow Rate FiO2 01/08/17 07:50 Nasal Cannula 3.0 01/08/17 07:47 94 01/08/17 07:15 98.3 81 20 137/79 (98) 98.3 Intake and Output 01/08/17 07:00 Intake Total 1450 ml Output Total 1375 ml Balance 75 ml Intake Oral 1390 ml IV Total 60 ml Output Urine Total 1375 ml Physical Exam Physical Exam He is supine in bed and had L'nard splint in place to right ankle and cam boot lying beside bed. Assessment Assessment Problems Medical Problems: (1) Diabetic foot ulcer Status: Acute (2) Hyperglycemia Status: Acute (3) Sepsis Status: Acute Plan Plan of Care To get him up as tolerated. Comment Review of Relevant I have reviewed the following items lauryn (where applicable) has been applied. Labs Laboratory Tests Test 01/06/17 12:08 01/06/17 17:23 01/06/17 20:37 01/07/17 05:00 Glucose (Fingerstick) 257 mg/dL (70-99) 149 mg/dL (70-99) 196 mg/dL (70-99) White Blood Count 11.1 x10^3/uL (4.0-11.0) Red Blood Count 2.54 x10^6/uL (4.30-5.70) Hemoglobin 8.1 g/dL (13.0-17.5) Hematocrit 23.0 % (39.0-53.0) Mean Corpuscular Volume 91 fL (79-100) Mean Corpuscular Hemoglobin 32 pg (25-35) Mean Corpuscular Hemoglobin Concent 35 g/dL (31-37) Red Cell Distribution Width 15.3 % (11.5-14.5) Platelet Count 204 x10^3/uL (140-400) Neutrophils (%) (Auto) 83 % (31-73) Lymphocytes (%) (Auto) 6 % (24-48) Monocytes (%) (Auto) 10 % (0-9) Eosinophils (%) (Auto) 1 % (0-3) Basophils (%) (Auto) 1 % (0-3) Neutrophils # (Auto) 9.1 x10^3uL (1.8-7.7) Lymphocytes # (Auto) 0.6 x10^3/uL (1.0-4.8) Monocytes # (Auto) 1.1 x10^3/uL (0.0-1.1) Eosinophils # (Auto) 0.1 x10^3/uL (0.0-0.7) Basophils # (Auto) 0.1 x10^3/uL (0.0-0.2) Sodium Level 137 mmol/L (136-145) Potassium Level 4.1 mmol/L (3.5-5.1) Chloride Level 97 mmol/L (98-107) Carbon Dioxide Level 32 mmol/L (21-32) Anion Gap 8 (6-14) Blood Urea Nitrogen 37 mg/dL (8-26) Creatinine 3.7 mg/dL (0.7-1.3) Estimated GFR (Cockcroft-Gault) 16.7 Glucose Level 190 mg/dL (70-99) Calcium Level 7.7 mg/dL (8.5-10.1) Test 01/07/17 08:16 01/07/17 14:48 01/07/17 17:14 01/07/17 20:28 Glucose (Fingerstick) 210 mg/dL (70-99) 144 mg/dL (70-99) 185 mg/dL (70-99) 202 mg/dL (70-99) Test 01/08/17 05:30 01/08/17 07:45 Sodium Level 136 mmol/L (136-145) Potassium Level 4.0 mmol/L (3.5-5.1) Chloride Level 99 mmol/L (98-107) Carbon Dioxide Level 29 mmol/L (21-32) Anion Gap 8 (6-14) Blood Urea Nitrogen 43 mg/dL (8-26) Creatinine 4.1 mg/dL (0.7-1.3) Estimated GFR (Cockcroft-Gault) 14.9 Glucose Level 198 mg/dL (70-99) Calcium Level 8.0 mg/dL (8.5-10.1) Glucose (Fingerstick) 189 mg/dL (70-99) Laboratory Tests Test 01/07/17 14:48 01/07/17 17:14 01/07/17 20:28 01/08/17 05:30 Glucose (Fingerstick) 144 mg/dL (70-99) 185 mg/dL (70-99) 202 mg/dL (70-99) Sodium Level 136 mmol/L (136-145) Potassium Level 4.0 mmol/L (3.5-5.1) Chloride Level 99 mmol/L (98-107) Carbon Dioxide Level 29 mmol/L (21-32) Anion Gap 8 (6-14) Blood Urea Nitrogen 43 mg/dL (8-26) Creatinine 4.1 mg/dL (0.7-1.3) Estimated GFR (Cockcroft-Gault) 14.9 Glucose Level 198 mg/dL (70-99) Calcium Level 8.0 mg/dL (8.5-10.1) Test 01/08/17 07:45 Glucose (Fingerstick) 189 mg/dL (70-99) Microbiology 01/03/17 Blood Culture - Final, Complete 01/03/17 Blood Culture Result 1 (LIONEL) - Final, Complete 01/03/17 Antimicrobic Susceptibility - Final, Complete 01/03/17 Urine Culture - Final, Complete 01/03/17 Urine Culture Result 1 (LIONEL) - Final, Complete Medications Current Medications Sodium Chloride 1,000 ml @ 1,000 mls/hr 1X ONCE IV Last administered on 23:15; Start 01/01/17 at 23:00; Stop 01/01/17 at 23:59; Status DC Ampicillin Sodium/ Sulbactam Sodium 3 gm/Sodium Chloride 100 ml @ 200 mls/hr 1X ONCE IV Last administered on 01/01/17 23:43; Start 01/02/17 at 00:00; Stop 01/02/17 at 00:29; Status DC Vancomycin HCl (Vanco Per Pharmacy) 1 each PRN DAILY PRN MC SEE COMMENTS Last administered on 01/02/17 13:53; Start 01/01/17 at 23:30; Stop 01/03/17 at 12:11 ; Status DC Vancomycin HCl 2 gm/Sodium Chloride 500 ml @ 250 mls/hr 1X ONCE IV Last administered on 01/02/17 00:32; Start 01/02/17 at 00:00; Stop 01/02/17 at 01:59 ; Status DC Sodium Chloride 1,000 ml @ 2,000 mls/hr Q30M IV Last administered on 04:10; Start 01/02/17 at 00:00; Stop 01/02/17 at 02:15; Status DC Hydrocortisone Acetate (Anucort-Hc) 25 mg 1X ONCE [place] Last administered on 01/01 23:43; Start 01/02/17 at 00:00; Stop 01/02/17 at 00:01; Status DC Hydromorphone HCl (Dilaudid) 1 mg 1X ONCE IV Last administered on 01/02/17 00 :35; Start 01/02/17 at 01:00; Stop 01/02/17 at 01:01; Status DC Ondansetron HCl (Zofran) 4 mg 1X ONCE IV Last administered on 01/02/17 00:35 ; Start 01/02/17 at 01:00; Stop 01/02/17 at 01:01; Status DC Hydromorphone HCl (Dilaudid) 2 mg STK-MED ONCE .ROUTE ; Start 01/02/17 at 00:33 ; Stop 01/02/17 at 00:34; Status DC Ondansetron HCl (Zofran) 4 mg PRN Q8HRS PRN IV NAUSEA/VOMITING; Start 01/02/17 at 01:15; Stop 01/03/17 at 01:14; Status DC Fentanyl Citrate (Fentanyl 2ml Vial) 50 mcg PRN Q2HR PRN IV SEVERE PAIN Last administered on 01/02/17 20:45; Start 01/02/17 at 01:15; Stop 01/03/17 at 01:14 ; Status DC Acetaminophen (Tylenol) 650 mg PRN Q4HRS PRN PO FEVER; Start 01/02/17 at 01:15 ; Stop 01/03/17 at 01:14; Status DC Vancomycin HCl 2 gm/Sodium Chloride 500 ml @ 250 mls/hr Q12H IV Last administered on 01/03/17 00:00; Start 01/02/17 at 12:00; Stop 01/03/17 at 12:11 ; Status DC Vancomycin HCl 1 each 1X ONCE MC Last administered on 01/03/17 11:30; Start 01/03/17 at 11:30; Stop 01/03/17 at 11:31; Status DC Atorvastatin Calcium (Lipitor) 20 mg QHS PO Last administered on 01/07/17 21: 22; Start 01/02/17 at 21:00 Celecoxib (CeleBREX) 200 mg BID PO Last administered on 01/02/17 09:51; Start 01/02/17 at 09:00; Stop 01/02/17 at 10:30; Status DC Vitamin D (Vitamin D3) 1,000 unit DAILY PO Last administered on 01/08/17 08:39 ; Start 01/02/17 at 09:00 Clopidogrel Bisulfate (Plavix) 75 mg DAILY PO Last administered on 01/08/17 08 :39; Start 01/02/17 at 09:00 Losartan Potassium (Cozaar) 50 mg DAILY PO Last administered on 01/03/17 10:41 ; Start 01/02/17 at 09:00; Stop 01/04/17 at 11:25; Status DC Metformin HCl (Glucophage) 500 mg BID PO Last administered on 01/03/17 10:42; Start 01/02/17 at 09:00; Stop 01/04/17 at 11:25; Status DC Tamsulosin HCl (Flomax) 0.4 mg HS PO Last administered on 01/07/17 21:22; Start 01/02/17 at 21:00 Citalopram Hydrobromide (CeleXA) 40 mg DAILY PO Last administered on 01/08/17 08:39; Start 01/02/17 at 09:00 Pantoprazole Sodium (Protonix) 40 mg DAILYAC PO Last administered on 01/08/17 08:39; Start 01/02/17 at 09:00 Gabapentin (Neurontin) 300 mg BID PO Last administered on 01/08/17 08:40; Start 01/02/17 at 09:00 Insulin Aspart (NovoLOG) 23 units TIDAC SQ Last administered on 01/04/17 12:25 ; Start 01/02/17 at 11:30; Stop 01/05/17 at 13:53; Status DC Insulin Aspart (NovoLOG) 0-9 UNITS QIDACHS SQ Last administered on 01/08/17 08 :50; Start 01/02/17 at 11:30 Dextrose (Dextrose 50%-Water Syringe) 12.5 gm PRN Q15MIN PRN IV SEE COMMENTS; Start 01/02/17 at 08:45 Sodium Chloride 1,000 ml @ 100 mls/hr 1X ONCE IV Last administered on 09:50; Start 01/02/17 at 08:45; Stop 01/02/17 at 18:44; Status DC Lidocaine (Lidoderm) 1 patch DAILY TD Last administered on 01/08/17 08:30; Start 01/02/17 at 09:00 Insulin Detemir (Levemir) 40 units DAILY08 SQ Last administered on 01/04/17 09 :57; Start 01/02/17 at 09:00; Stop 01/04/17 at 13:39; Status DC Enoxaparin Sodium (Lovenox Per Pharmacy Prophylaxis Dosing) 1 each PRN DAILY PRN MC SEE COMMENTS; Start 01/02/17 at 09:15; Status Cancel Enoxaparin Sodium (Lovenox 40mg Syringe) 40 mg Q12H SQ Last administered on 21:42; Start 01/02/17 at 10:00; Stop 01/04/17 at 10:18; Status DC Polysaccharide Iron Complex (Niferex 150) 150 mg BID PO Last administered on 08:40; Start 01/02/17 at 12:00 Bisacodyl (Dulcolax Tab) 10 mg DAILY PO Last administered on 01/07/17 08:25; Start 01/02/17 at 12:00 Senna/Docusate Sodium (Senna Plus) 2 tab PRN BID PRN PO CONSTIPATION Last administered on 01/03/17 10:42; Start 01/02/17 at 10:45 Senna/Docusate Sodium (Senna Plus) 1 tab BID PO Last administered on 01/06/17 20:32; Start 01/02/17 at 12:00; Stop 01/07/17 at 13:17; Status DC Piperacillin Sod/ Tazobactam Sod 3.375 gm/Sodium Chloride 50 ml @ 100 mls/hr Q6H IV Last administered on 01/03/17 10:40; Start 01/02/17 at 16:00; Stop at 12:11; Status DC Sodium Chloride 1,000 ml @ 100 mls/hr Q10H IV ; Start 01/03/17 at 10:45; Stop 01/04/17 at 00:59; Status DC Piperacillin Sod/ Tazobactam Sod 2.25 gm/Sodium Chloride 50 ml @ 100 mls/hr Q8HRS IV Last administered on 01/08/17 05:32; Start 01/03/17 at 14:00 Albuterol/ Ipratropium (Duoneb) 3 ml RTQID NEB Last administered on 01/08/17 07:47; Start 01/03/17 at 16:00 Sodium Chloride 1,000 ml @ 1,000 mls/hr 1X ONCE IV Last administered on 15:16; Start 01/03/17 at 15:15; Stop 01/03/17 at 16:14; Status DC Sodium Bicarbonate 75 meq/Sodium Chloride 1,075 ml @ 75 mls/hr [id number] IV Last administered on 01/04/17 09:52; Start 01/03/17 at 16:00; Stop 01/07/17 at 17:39; Status DC Sodium Bicarbonate 50 meq 1X ONCE IV Last administered on 01/03/17 16:08; Start 01/03/17 at 16:00; Stop 01/03/17 at 16:15; Status DC Sodium Bicarbonate 50 meq 1X ONCE IV Last administered on 01/03/17 16:09; Start 01/03/17 at 16:00; Stop 01/03/17 at 16:15; Status DC Sodium Bicarbonate 50 meq 1X ONCE IV Last administered on 01/03/17 16:09; Start 01/03/17 at 16:00; Stop 01/03/17 at 16:15; Status DC Sodium Chloride 500 ml @ 500 mls/hr PRN Q4HRS PRN IV HYPOTENSION; Start at 16:00 Acetaminophen (Acetaminophen Supp) 650 mg PRN Q6HRS PRN [place] MILD PAIN / TEMP Last administered on 01/04/17 02:43; Start 01/04/17 at 02:00 Enoxaparin Sodium (Lovenox 40mg Syringe) 40 mg HS SQ ; Start 01/04/17 at 21:00; Stop 01/04/17 at 21:00; Status DC Lidocaine/Sodium Bicarbonate (Buffered Lidocaine 1%) 3 ml 1X ONCE IJ Last administered on 01/04/17 11:50; Start 01/04/17 at 11:30; Stop 01/04/17 at 11:31 ; Status DC Heparin Sodium/ Sodium Chloride 60 unit 1X ONCE IV Last administered on 11:50; Start 01/04/17 at 11:30; Stop 01/04/17 at 11:31; Status DC Heparin Sodium (Porcine) (Heparin Sodium) 2,500 unit 1X ONCE INT CAT Last administered on 01/04/17 11:51; Start 01/04/17 at 11:30; Stop 01/04/17 at 11:31 ; Status DC Heparin Sodium (Porcine) (Heparin Sodium) 10,000 unit STK-MED ONCE .ROUTE ; Start 01/04/17 at 11:22; Stop 01/04/17 at 11:23; Status DC Furosemide (Lasix) 40 mg [id number] IVP ; Start 01/04/17 at 11:30; Stop 01/04/17 at 14:58; Status DC Darbepoetin Robert (Aranesp) 60 mcg [id number] SQ Last administered on 01/04/17 20 :45; Start 01/04/17 at 21:00 Sodium Chloride 1,000 ml @ 1,000 mls/hr Q1H PRN IV hypotension; Start 01/04/17 at 13:02; Stop 01/04/17 at 19:01; Status DC Diphenhydramine HCl (Benadryl) 25 mg 1X PRN PRN IV ITCHING; Start 01/04/17 at 13:15; Stop 01/05/17 at 13:14; Status DC Diphenhydramine HCl (Benadryl) 25 mg 1X PRN PRN IV ITCHING; Start 01/04/17 at 13:15; Stop 01/05/17 at 13:14; Status DC Info (PHARMACY MONITORING -- do not chart) 1 each PRN DAILY PRN MC SEE COMMENTS ; Start 01/04/17 at 13:15; Status UNV Info (PHARMACY MONITORING -- do not chart) 1 each PRN DAILY PRN MC SEE COMMENTS ; Start 01/04/17 at 13:15 Insulin Detemir (Levemir) 45 units DAILY08 SQ Last administered on 01/08/17 08 :49; Start 01/04/17 at 14:00 Heparin Sodium (Porcine) (Heparin Sq) 5,000 unit Q8HRS SQ Last administered on 01/08/17 05:38; Start 01/04/17 at 14:00 Ondansetron HCl (Zofran) 4 mg PRN Q6HRS PRN IV NAUSEA/VOMITING; Start 01/05/17 at 07:00; Stop 01/06/17 at 06:59; Status DC Fentanyl Citrate (Fentanyl 2ml Vial) 25 mcg PRN Q5MIN PRN IV MILD PAIN; Start 01/05/17 at 07:00; Stop 01/06/17 at 06:59; Status DC Fentanyl Citrate (Fentanyl 2ml Vial) 50 mcg PRN Q5MIN PRN IV MODERATE PAIN; Start 01/05/17 at 07:00; Stop 01/06/17 at 06:59; Status DC Ringer's Solution 1,000 ml @ 30 mls/hr Q24H IV ; Start 01/05/17 at 07:00; Stop 01/05/17 at 18:59; Status DC Lidocaine HCl 2 ml PRN 1X PRN ID PRIOR TO IV START; Start 01/05/17 at 07:00; Stop 01/06/17 at 06:59; Status DC Prochlorperazine Edisylate (Compazine) 5 mg PACU PRN PRN IV NAUSEA, MRX1; Start 01/05/17 at 07:00; Stop 01/06/17 at 06:59; Status DC Furosemide (Lasix) 40 mg BID92 IVP Last administered on 01/05/17 18:23; Start 01/04/17 at 21:00; Stop 01/06/17 at 14:28; Status DC Oxycodone/ Acetaminophen (Percocet 5/325) 1 tab PRN Q4HRS PRN PO MILD PAIN Last administered on 01/04/17 20:44; Start 01/04/17 at 20:30 Fentanyl Citrate (Fentanyl 2ml Vial) 50 mcg PRN Q2HR PRN IV SEVERE PAIN Last administered on 01/06/17 05:33; Start 01/05/17 at 06:00 Sodium Chloride 1,000 ml @ 1,000 mls/hr Q1H PRN IV hypotension; Start 01/05/17 at 11:47; Stop 01/05/17 at 17:46; Status DC Sodium Chloride (Normal Saline Flush) 10 ml 1X PRN PRN IV AP catheter pack; Start 01/05/17 at 12:00; Stop 01/06/17 at 11:59; Status DC Sodium Chloride (Normal Saline Flush) 10 ml 1X PRN PRN IV ROUGHER OPERATOR catheter pack; Start 01/05/17 at 12:00; Stop 01/06/17 at 11:59; Status DC Sodium Chloride 1,000 ml @ 400 mls/hr Q2H30M PRN IV PATENCY; Start 01/05/17 at 11:47; Stop 01/05/17 at 23:46; Status DC Info (PHARMACY MONITORING -- do not chart) 1 each PRN DAILY PRN MC SEE COMMENTS ; Start 01/05/17 at 12:00; Status UNV Info (PHARMACY MONITORING -- do not chart) 1 each PRN DAILY PRN MC SEE COMMENTS ; Start 01/05/17 at 12:00; Status UNV Propofol 20 ml @ As Directed STK-MED ONCE IV ; Start 01/05/17 at 13:42; Stop at 13:43; Status DC Dexamethasone Sodium Phosphate (Decadron) 20 mg STK-MED ONCE .ROUTE ; Start at 13:42; Stop 01/05/17 at 13:43; Status DC Ondansetron HCl (Zofran) 4 mg STK-MED ONCE .ROUTE ; Start 01/05/17 at 13:42; Stop 01/05/17 at 13:43; Status DC Lidocaine HCl (Lidocaine Pf 2% Vial) 5 ml STK-MED ONCE .ROUTE ; Start 01/05/17 at 13:42; Stop 01/05/17 at 13:43; Status DC Insulin Aspart (NovoLOG) 15 units TIDAC SQ Last administered on 01/08/17t 08:50 ; Start 01/05/17 at 16:30 Fentanyl Citrate (Fentanyl 2ml Vial) 100 mcg STK-MED ONCE .ROUTE ; Start at 14:28; Stop 01/05/17 at 14:29; Status DC Midazolam HCl (Versed) 2 mg STK-MED ONCE .ROUTE ; Start 01/05/17 at 14:28; Stop 01/05/17 at 14:29; Status DC Desflurane (Suprane) 30 ml STK-MED ONCE IH ; Start 01/05/17 at 15:05; Stop 01/05 at 15:06; Status DC Oxycodone HCl (Roxicodone) 5 mg PRN Q3HRS PRN PO PAIN Last administered on 01/07 15:47; Start 01/05/17 at 15:30 Fentanyl Citrate (Fentanyl 2ml Vial) 25 mcg PRN Q1HR PRN IV PAIN; Start at 15:30 Senna/Docusate Sodium (Senna Plus) 1 tab DAILY PO Last administered on 08:40; Start 01/06/17 at 09:00 Polyethylene Glycol (miraLAX PACKET) 17 gm PRN DAILY PRN PO CONSTIPATION; Start 01/05/17 at 15:30 Ondansetron HCl (Zofran) 4 mg PRN Q4HRS PRN IV NAUSEA/VOMITING; Start 01/05/17 at 15:30 Magnesium Hydroxide (Milk Of Magnesia) 2,400 mg 1X PRN PRN PO CONSTIPATION; Start 01/06/17 at 06:00; Stop 01/07/17 at 05:59; Status DC Bisacodyl (Dulcolax Supp) 10 mg 1X PRN PRN [place] CONSTIPATION; Start 01/06/17 at 16:00; Stop 01/07/17 at 15:59; Status DC Acetaminophen/ Hydrocodone Bitart (Lortab 7.5/325) 1 tab PRN Q4HRS PRN PO MODERATE PAIN Last administered on 01/08/17 05:33; Start 01/05/17 at 15:30 Dextrose (Dextrose 50%-Water Syringe) 12.5 gm PRN Q15MIN PRN IV SEE COMMENTS; Start 01/05/17 at 15:30; Status Cancel Sodium Chloride 1,000 ml @ 1,000 mls/hr Q1H PRN IV hypotension; Start 01/06/17 at 12:10; Stop 01/06/17 at 19:00; Status DC Diphenhydramine HCl (Benadryl) 25 mg 1X PRN PRN IV ITCHING; Start 01/06/17 at 12:15; Stop 01/06/17 at 19:00; Status DC Diphenhydramine HCl (Benadryl) 25 mg 1X PRN PRN IV ITCHING; Start 01/06/17 at 12:15; Stop 01/06/17 at 19:00; Status DC Info (PHARMACY MONITORING -- do not chart) 1 each PRN DAILY PRN MC SEE COMMENTS ; Start 01/06/17 at 12:15; Status UNV Furosemide (Lasix) 80 mg BID92 IVP Last administered on 01/08/17t 08:27; Start 01/06/17 at 14:30 Sodium Chloride 1,000 ml @ 1,000 mls/hr Q1H PRN IV hypotension; Start 01/07/17 at 11:45; Stop 01/07/17 at 17:44; Status DC Sodium Chloride (Normal Saline Flush) 10 ml 1X PRN PRN IV AP catheter pack; Start 01/07/17 at 11:45; Stop 01/08/17 at 11:44 Sodium Chloride (Normal Saline Flush) 10 ml 1X PRN PRN IV ROUGHER OPERATOR catheter pack; Start 01/07/17 at 11:45; Stop 01/08/17 at 11:44 Sodium Chloride 1,000 ml @ 400 mls/hr Q2H30M PRN IV PATENCY; Start 01/07/17 at 11:45; Stop 01/07/17 at 23:44; Status DC Info (PHARMACY MONITORING -- do not chart) 1 each PRN DAILY PRN MC SEE COMMENTS ; Start 01/07/17 at 11:45; Status UNV Info (PHARMACY MONITORING -- do not chart) 1 each PRN DAILY PRN MC SEE COMMENTS ; Start 01/07/17 at 11:45; Status UNV Active Scripts Active Reported Humalog (Insulin Lispro) 100 Unit/1 Ml Cartridge 23 Unit SQ TIDAC Vitamin D3 (Cholecalciferol (Vitamin D3)) 1,000 Unit Tablet 1 Tab PO DAILY Nexium Capsule (Esomeprazole Magnesium) 40 Mg Capsule.dr 1 Cap PO DAILY Losartan Potassium 50 Mg Tablet 50 Mg PO DAILY Gabapentin 300 Mg Capsule 300 Mg PO BID Celebrex (Celecoxib) 200 Mg Capsule 200 Mg PO BID 30 Days Citalopram Hbr (Citalopram Hydrobromide) 40 Mg Tablet 40 Mg PO DAILY Lipitor (Atorvastatin Calcium) 20 Mg Tablet 20 Mg PO QHS Flomax (Tamsulosin Hcl) 0.4 Mg Cap.er.24h 0.4 Mg PO HS Metformin Hcl 500 Mg Tablet 500 Mg PO BID Plavix (Clopidogrel Bisulfate) 75 Mg Tablet 75 Mg PO DAILY Vitals/I & O Vital Sign - Last 24 Hours 01/07/17 01/07/17 01/07/17 01/07/17 15:00 15:47 16:09 16:55 Temp 98.4 98.4 Pulse 86 Resp 24 20 18 B/P (MAP) 142/86 (104) Pulse Ox 96 96 97 O2 Delivery Room Air Nasal Cannula Nasal Cannula Nasal Cannula O2 Flow Rate 3.0 3.0 3.0 01/07/17 01/07/17 01/07/17 01/07/17 19:17 19:40 19:40 21:57 Temp 98.3 98.3 Pulse 85 Resp 24 B/P (MAP) 133/77 (95) Pulse Ox 96 95 96 O2 Delivery Nasal Cannula Nasal Cannula Nasal Cannula O2 Flow Rate 3.0 4.0 3.0 01/07/17 01/07/17 01/08/17 01/08/17 23:20 23:30 03:35 05:33 Temp 98.6 98.0 98.6 98.0 Pulse 84 86 Resp 18 21 20 B/P (MAP) 115/76 (89) 159/84 (109) Pulse Ox 98 95 O2 Delivery Nasal Cannula Nasal Cannula Nasal Cannula O2 Flow Rate 4.0 4.0 4.0 2.0 01/08/17 01/08/17 01/08/17 01/08/17 06:33 07:15 07:47 07:50 Temp 98.3 98.3 Pulse 81 Resp 20 20 B/P (MAP) 137/79 (98) Pulse Ox 95 94 O2 Delivery Nasal Cannula Nasal Cannula Nasal Cannula Nasal Cannula O2 Flow Rate 2.0 4.0 3.0 3.0 Intake and Output 01/07/17 01/07/17 01/08/17 15:00 23:00 07:00 Intake Total 240 ml 610 ml 600 ml Output Total 250 ml 1125 ml Balance 240 ml 360 ml -525 ml Nutrition Consultation Dietary Evaluation: Recommendations by RD: Increase Calorie Intake Comments: Continue nutrition care plan Encourage good PO intake add the renal diet Expected Outcomes/Goals: meet 75% estimated nutrition needs Malnutrition 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
[2017-01-08 11:01] VITALS: BP 137/82
--- NOTE | 2017-01-08 11:40 | PDOC3 ---
Discharge Summary Visit Information Date of Admission: Jan 01, 2017 Date of Discharge: Jan 08, 2017 Admitting Diagnosis Comment: Assessment and plan Altered mental status,: Unclear etiology, suspected due to hyperglycemia and acidosis, metabolic encephalopathy with BRYCE Right lower extremity heel ulcer, osteomyelitis ruled out: Imaging studies reviewed discussed with Dr. Biswas, orthopedics is planning for a debridement and the VAC placement. Elevated WBC: Continue current antibiotics Zosyn and vancomycin, fu with ID Metabolic acidosis: Likely related to infection: Ordered blood cultures, and all of temperature spike this morning Acute kidney injury: fu with renal ,new HD 01/04 Type 2 diabetes mellitus with hyperglycemia: Sliding scale insulin, increase levemir ot 45u daily, decrease aspart to 15u tid. Chronic kidney disease unknown baseline : Morbid obesity with sleep apnea: Try BiPAP based on ABGs Peripheral artery disease: Arterial ultrasound reviewed and venous Doppler revealed no DVTs discussed with Dr. Biswas, no plans for angiography based on renal functions at this time. Anemia, chronic dz, 1u PRBC 01/06 1 + bacteremia, LIKELY CONtamination, fu with ID, on zosyn Final Diagnosis Problems Medical Problems: (1) Diabetic foot ulcer Status: Acute (2) Hyperglycemia Status: Acute (3) Sepsis Status: Acute Brief Hospital Course Allergies Allergies Coded Allergies Type Severity Reaction Last Updated Verified morphine Allergy Intermediate 01/05/17 Yes Vital Signs Vital Signs Date Time Temp Pulse Resp B/P (MAP) Pulse Ox O2 Delivery O2 Flow Rate FiO2 01/08/17 11:01 98.1 80 22 137/82 (100) 96 Nasal Cannula 4.0 98.1 Lab Results Laboratory Tests Test 01/06/17 12:08 01/06/17 17:23 01/06/17 20:37 01/07/17 05:00 Glucose (Fingerstick) 257 mg/dL (70-99) 149 mg/dL (70-99) 196 mg/dL (70-99) White Blood Count 11.1 x10^3/uL (4.0-11.0) Red Blood Count 2.54 x10^6/uL (4.30-5.70) Hemoglobin 8.1 g/dL (13.0-17.5) Hematocrit 23.0 % (39.0-53.0) Mean Corpuscular Volume 91 fL (79-100) Mean Corpuscular Hemoglobin 32 pg (25-35) Mean Corpuscular Hemoglobin Concent 35 g/dL (31-37) Red Cell Distribution Width 15.3 % (11.5-14.5) Platelet Count 204 x10^3/uL (140-400) Neutrophils (%) (Auto) 83 % (31-73) Lymphocytes (%) (Auto) 6 % (24-48) Monocytes (%) (Auto) 10 % (0-9) Eosinophils (%) (Auto) 1 % (0-3) Basophils (%) (Auto) 1 % (0-3) Neutrophils # (Auto) 9.1 x10^3uL (1.8-7.7) Lymphocytes # (Auto) 0.6 x10^3/uL (1.0-4.8) Monocytes # (Auto) 1.1 x10^3/uL (0.0-1.1) Eosinophils # (Auto) 0.1 x10^3/uL (0.0-0.7) Basophils # (Auto) 0.1 x10^3/uL (0.0-0.2) Sodium Level 137 mmol/L (136-145) Potassium Level 4.1 mmol/L (3.5-5.1) Chloride Level 97 mmol/L (98-107) Carbon Dioxide Level 32 mmol/L (21-32) Anion Gap 8 (6-14) Blood Urea Nitrogen 37 mg/dL (8-26) Creatinine 3.7 mg/dL (0.7-1.3) Estimated GFR (Cockcroft-Gault) 16.7 Glucose Level 190 mg/dL (70-99) Calcium Level 7.7 mg/dL (8.5-10.1) Test 01/07/17 08:16 01/07/17 14:48 01/07/17 17:14 01/07/17 20:28 Glucose (Fingerstick) 210 mg/dL (70-99) 144 mg/dL (70-99) 185 mg/dL (70-99) 202 mg/dL (70-99) Test 01/08/17 05:30 01/08/17 07:45 01/08/17 11:28 Sodium Level 136 mmol/L (136-145) Potassium Level 4.0 mmol/L (3.5-5.1) Chloride Level 99 mmol/L (98-107) Carbon Dioxide Level 29 mmol/L (21-32) Anion Gap 8 (6-14) Blood Urea Nitrogen 43 mg/dL (8-26) Creatinine 4.1 mg/dL (0.7-1.3) Estimated GFR (Cockcroft-Gault) 14.9 Glucose Level 198 mg/dL (70-99) Calcium Level 8.0 mg/dL (8.5-10.1) Glucose (Fingerstick) 189 mg/dL (70-99) 254 mg/dL (70-99) Laboratory Tests Test 01/07/17 14:48 01/07/17 17:14 01/07/17 20:28 01/08/17 05:30 Glucose (Fingerstick) 144 mg/dL (70-99) 185 mg/dL (70-99) 202 mg/dL (70-99) Sodium Level 136 mmol/L (136-145) Potassium Level 4.0 mmol/L (3.5-5.1) Chloride Level 99 mmol/L (98-107) Carbon Dioxide Level 29 mmol/L (21-32) Anion Gap 8 (6-14) Blood Urea Nitrogen 43 mg/dL (8-26) Creatinine 4.1 mg/dL (0.7-1.3) Estimated GFR (Cockcroft-Gault) 14.9 Glucose Level 198 mg/dL (70-99) Calcium Level 8.0 mg/dL (8.5-10.1) Test 01/08/17 07:45 01/08/17 11:28 Glucose (Fingerstick) 189 mg/dL (70-99) 254 mg/dL (70-99) Brief Hospital Course Mr. Soliz is a 61 old male, complicated medical stay here with us for 7 days - see dx above .BActeremia etc, Essentially has multiple wounds, now has wound vac with IV zosyn, co managed with ID. HAd heel debridement, on special booots,. ON bariatric bed also, minimal ambulation, needs zelaya, DAVID refuses CPAP. ESRD on HD,which is new,.Anemia stable. REady for select on IV antibiotics, wound care for wound vac and PT/OT and new HD sessions, Consult ID and pulmo at select PT seen and examined time 40 mins total Discharge Information Condition at Discharge: Improved, Stable Disposition/Orders: Other (LTAC) Scheduled Atorvastatin Calcium (Lipitor), 20 MG PO QHS, (Reported) Celecoxib (Celebrex), 200 MG PO BID, (Reported) Cholecalciferol (Vitamin D3) (Vitamin D3), 1 TAB PO DAILY, (Reported) Citalopram Hydrobromide (Citalopram Hbr), 40 MG PO DAILY, (Reported) Clopidogrel Bisulfate (Plavix), 75 MG PO DAILY, (Reported) Esomeprazole Magnesium (Nexium Capsule), 1 CAP PO DAILY, (Reported) Gabapentin (Gabapentin), 300 MG PO BID, (Reported) Insulin Lispro (Humalog), 23 UNIT SQ TIDAC, (Reported) Losartan Potassium (Losartan Potassium), 50 MG PO DAILY, (Reported) Metformin Hcl (Metformin Hcl), 500 MG PO BID, (Reported) Tamsulosin Hcl (Flomax), 0.4 MG PO HS, (Reported) Discontinued Medications Insulin Aspart (Novolog), 40 UNIT SQ TIDAC, (Reported) Lisinopril (Lisinopril), 10 MG PO DAILY, (Reported) MARINA GREGG MD Jan 08, 2017 11:40
--- NOTE | 2017-01-08 12:49 | PDOC ---
PULMONARY PROGRESS NOTES Subjective didnt use BIPAP last night, sob better. no cough, no pain Vitals Vital Signs Date Time Temp Pulse Resp B/P (MAP) Pulse Ox O2 Delivery O2 Flow Rate FiO2 01/08/17 11:01 98.1 80 22 137/82 (100) 96 Nasal Cannula 4.0 98.1 ROS: No Nausea, No Chest Pain, No Increase Cough General: Alert Lungs: Crackles Cardiovascular: S1, S2 Abdomen: Other (OBESE) Neuro Exam: Alert, Oriented Extremities: Other (EDEMA) Skin: Warm, Dry Labs Laboratory Tests Test 01/06/17 17:23 01/06/17 20:37 01/07/17 05:00 01/07/17 08:16 Glucose (Fingerstick) 149 mg/dL (70-99) 196 mg/dL (70-99) 210 mg/dL (70-99) White Blood Count 11.1 x10^3/uL (4.0-11.0) Red Blood Count 2.54 x10^6/uL (4.30-5.70) Hemoglobin 8.1 g/dL (13.0-17.5) Hematocrit 23.0 % (39.0-53.0) Mean Corpuscular Volume 91 fL (79-100) Mean Corpuscular Hemoglobin 32 pg (25-35) Mean Corpuscular Hemoglobin Concent 35 g/dL (31-37) Red Cell Distribution Width 15.3 % (11.5-14.5) Platelet Count 204 x10^3/uL (140-400) Neutrophils (%) (Auto) 83 % (31-73) Lymphocytes (%) (Auto) 6 % (24-48) Monocytes (%) (Auto) 10 % (0-9) Eosinophils (%) (Auto) 1 % (0-3) Basophils (%) (Auto) 1 % (0-3) Neutrophils # (Auto) 9.1 x10^3uL (1.8-7.7) Lymphocytes # (Auto) 0.6 x10^3/uL (1.0-4.8) Monocytes # (Auto) 1.1 x10^3/uL (0.0-1.1) Eosinophils # (Auto) 0.1 x10^3/uL (0.0-0.7) Basophils # (Auto) 0.1 x10^3/uL (0.0-0.2) Sodium Level 137 mmol/L (136-145) Potassium Level 4.1 mmol/L (3.5-5.1) Chloride Level 97 mmol/L (98-107) Carbon Dioxide Level 32 mmol/L (21-32) Anion Gap 8 (6-14) Blood Urea Nitrogen 37 mg/dL (8-26) Creatinine 3.7 mg/dL (0.7-1.3) Estimated GFR (Cockcroft-Gault) 16.7 Glucose Level 190 mg/dL (70-99) Calcium Level 7.7 mg/dL (8.5-10.1) Test 01/07/17 14:48 01/07/17 17:14 01/07/17 20:28 01/08/17 05:30 Glucose (Fingerstick) 144 mg/dL (70-99) 185 mg/dL (70-99) 202 mg/dL (70-99) Sodium Level 136 mmol/L (136-145) Potassium Level 4.0 mmol/L (3.5-5.1) Chloride Level 99 mmol/L (98-107) Carbon Dioxide Level 29 mmol/L (21-32) Anion Gap 8 (6-14) Blood Urea Nitrogen 43 mg/dL (8-26) Creatinine 4.1 mg/dL (0.7-1.3) Estimated GFR (Cockcroft-Gault) 14.9 Glucose Level 198 mg/dL (70-99) Calcium Level 8.0 mg/dL (8.5-10.1) Test 01/08/17 07:45 01/08/17 11:28 Glucose (Fingerstick) 189 mg/dL (70-99) 254 mg/dL (70-99) Laboratory Tests Test 01/07/17 14:48 01/07/17 17:14 01/07/17 20:28 01/08/17 05:30 Glucose (Fingerstick) 144 mg/dL (70-99) 185 mg/dL (70-99) 202 mg/dL (70-99) Sodium Level 136 mmol/L (136-145) Potassium Level 4.0 mmol/L (3.5-5.1) Chloride Level 99 mmol/L (98-107) Carbon Dioxide Level 29 mmol/L (21-32) Anion Gap 8 (6-14) Blood Urea Nitrogen 43 mg/dL (8-26) Creatinine 4.1 mg/dL (0.7-1.3) Estimated GFR (Cockcroft-Gault) 14.9 Glucose Level 198 mg/dL (70-99) Calcium Level 8.0 mg/dL (8.5-10.1) Test 01/08/17 07:45 01/08/17 11:28 Glucose (Fingerstick) 189 mg/dL (70-99) 254 mg/dL (70-99) Medications Active Scripts Medications Dose Route/Sig Max Daily Dose Days Date Category Humalog (Insulin Lispro) 100 Unit/1 Ml Cartridge 23 Unit SQ TIDAC 01/02/17 Reported Vitamin D3 (Cholecalciferol (Vitamin D3)) 1,000 Unit Tablet 1 Tab PO DAILY 01/02/17 Reported Nexium Capsule (Esomeprazole Magnesium) 40 Mg Capsule.dr 1 Cap PO DAILY 01/02/17 Reported Losartan Potassium 50 Mg Tablet 50 Mg PO DAILY 01/02/17 Reported Gabapentin 300 Mg Capsule 300 Mg PO BID 01/02/17 Reported Celebrex (Celecoxib) 200 Mg Capsule 200 Mg PO BID 30 01/02/17 Reported Citalopram Hbr (Citalopram Hydrobromide) 40 Mg Tablet 40 Mg PO DAILY 06/09/13 Reported Lipitor (Atorvastatin Calcium) 20 Mg Tablet 20 Mg PO QHS 06/09/13 Reported Flomax (Tamsulosin Hcl) 0.4 Mg Cap.er.24h 0.4 Mg PO HS 06/09/13 Reported Metformin Hcl 500 Mg Tablet 500 Mg PO BID 06/09/13 Reported Plavix (Clopidogrel Bisulfate) 75 Mg Tablet 75 Mg PO DAILY 06/09/13 Reported Impression . IMPRESSION: 1. Acute hypoxemic respiratory failure. 2. Met /toxic encephalopathy 3. Metabolic acidosis 4. Acute kidney injury. 5. Chronic kidney disease. 6. Diabetes mellitus. 7. Hypertension. 8. Obstructive sleep apnea-hypopnea syndrome. 9. Diabetic foot. Plan . the importance of bipap use and tx of aly discussed I SPOKE TO HIM REGARDING OPTION OF TRACH HE DOES NOT HAVE ANY INTEREST HD PER NEPHRO BIPAP QHS AND PRN ANTIBX DVT PROPH SAY HE HAS BIPAP AT HOME discussed w rn, pt EFREM BLUE MD Jan 08, 2017 12:49
== END 2017-01-08 15:30 | DRG 853 ==
LOC: ER 21:50 → 4 NORTH 23:47 → 1 WEST ICU 01-03 14:29 → 2 SOUTH 01-06 18:02
PROVIDERS: ADMIT Internal Medicine Hematology & Oncology; ATTEND Internal Medicine Hematology & Oncology
PROC: 02HV33Z Insertion of Infusion Device into Superior Vena Cava, Percutaneous Approach (ICD-10-PCS; 2017-01-02)
PROC: 5A1D00Z (ICD-10-PCS; 2017-01-02)
PROC: 5A09457 Assistance with Respiratory Ventilation, 24-96 Consecutive Hours, Continuous Positive Airway Pressure (ICD-10-PCS; 2017-01-02)
PROC: 30233N1 Transfusion of Nonautologous Red Blood Cells into Peripheral Vein, Percutaneous Approach (ICD-10-PCS; 2017-01-02)
PROC: B543ZZA Ultrasonography of Right Jugular Veins, Guidance (ICD-10-PCS; 2017-01-04)
PROC: 05HM33Z Insertion of Infusion Device into Right Internal Jugular Vein, Percutaneous Approach (ICD-10-PCS; principal; 2017-01-04 11:00)
PROC: 0JBQ0ZZ Excision of Right Foot Subcutaneous Tissue and Fascia, Open Approach (ICD-10-PCS; 2017-01-05)
DX: A41.9 Sepsis, unspecified organism (principal); J96.01 Acute respiratory failure with hypoxia; G92 Toxic encephalopathy; N17.0 Acute kidney failure with tubular necrosis; N18.6 End stage renal disease; E11.52 Type 2 diabetes mellitus with diabetic peripheral angiopathy with gangrene; E44.0 Moderate protein-calorie malnutrition; Z68.42 Body mass index [BMI] 45.0-49.9, adult; E87.1 Hypo-osmolality and hyponatremia; E87.2 Acidosis; L97.419 Non-pressure chronic ulcer of right heel and midfoot with unspecified severity; N17.9 Acute kidney failure, unspecified; I13.11 Hypertensive heart and chronic kidney disease without heart failure, with stage 5 chronic kidney disease, or end stage renal disease; M86.8X8 Other osteomyelitis, other site; D63.1 Anemia in chronic kidney disease; E11.22 Type 2 diabetes mellitus with diabetic chronic kidney disease; E11.42 Type 2 diabetes mellitus with diabetic polyneuropathy; E11.621 Type 2 diabetes mellitus with foot ulcer; E11.628 Type 2 diabetes mellitus with other skin complications; E11.65 Type 2 diabetes mellitus with hyperglycemia; E11.69 Type 2 diabetes mellitus with other specified complication; E66.01 Morbid (severe) obesity due to excess calories; E78.00 Pure hypercholesterolemia, unspecified; E78.5 Hyperlipidemia, unspecified; G47.33 Obstructive sleep apnea (adult) (pediatric); K21.9 Gastro-esophageal reflux disease without esophagitis; L08.9 Local infection of the skin and subcutaneous tissue, unspecified; L97.509 Non-pressure chronic ulcer of other part of unspecified foot with unspecified severity; M17.0 Bilateral primary osteoarthritis of knee; S82.65XA Nondisplaced fracture of lateral malleolus of left fibula, initial encounter for closed fracture; Z82.49 Family history of ischemic heart disease and other diseases of the circulatory system; Z83.3 Family history of diabetes mellitus; Z86.73 Personal history of transient ischemic attack (TIA), and cerebral infarction without residual deficits; Z87.19 Personal history of other diseases of the digestive system; F32.9 Major depressive disorder, single episode, unspecified; Z88.5 Allergy status to narcotic agent; Z90.49 Acquired absence of other specified parts of digestive tract; J44.9 Chronic obstructive pulmonary disease, unspecified; L97.519 Non-pressure chronic ulcer of other part of right foot with unspecified severity; Z87.891 Personal history of nicotine dependence; Z91.19 Patient's noncompliance with other medical treatment and regimen; Z99.2 Dependence on renal dialysis; Z98.42 Cataract extraction status, left eye; Z98.41 Cataract extraction status, right eye
CPT/HCPCS: 36415; 36556; 36600; 71010; 72148; 73610; 73630; 73721; 76937; 80048; 80053; 80202; 81001; 82553; 82805; 82962; 83036; 83605; 83690; 83735; 84484; 84550; 85007; 85027; 85651; 86140; 86705; 86706; 86850; 86900; 86901; 86920; 87040; 87086; 87205; 87340; 87341; 87641; 93880; 93925; 93971; 93975; 94640; 94660; 94760; 96365; 96375; C1769; C1892; J0295; J0881; J1100; J1170; J1644; J1650; J1815; J1940; J2001; J2250; J2405; J2543; J2704; J3010; J3370; J7030; J7040; J7620; P9016; 97530; 99285-25

== ENCOUNTER 2017-02-02 13:36 | Inpatient (IN) | payer BC ==
[~2017-02-02] VITALS: Ht 182.9 cm; Wt 160.1 kg
[~2017-02-02 13:36] MED LIST changes: +CELE200C PO; +CHOL10003 PO; +ESOM40CA PO; +GABA-586 PO; +INSU100C SQ; +LOSA50TA6 PO
[2017-02-02] MEDS ORDERED: fentaNYL PF VIAL 100 MCG/2 ML VIAL IM ONE (16:00)
--- NOTE | 2017-02-02 16:42 | RAD ---
Foot x-rays Indication: Nontraumatic left foot pain. Technique: 3 views of the left foot Comparison: Previous study from 01/01/2017. Findings: Significant soft tissue swelling around the ankle with multiple foci of gas. There is swelling of the soft tissues of the dorsum of the foot. There is cortical erosion at the posterior inferior aspect of the tibia. Diffuse vascular calcifications noted. No acute fractures. Impression: 1. Diffuse soft tissue swelling in the region of ankle with multiple foci of gas concerning for necrotizing infection. 2. Cortical erosion in the posterior inferior aspect of the tibia. Osteomyelitis not ruled out. The critical findings were discussed with () on 02/02/17 at 4:37 PM.
[2017-02-02] MEDS ORDERED: VANCOMYCIN 2 GM in IV NORMAL SALINE 500ML BAG 500 ML IV ONE (17:00)
[2017-02-02] MEDS ORDERED: PIPERACILLIN/TAZOBACTAM 4.5 GM in IV NORMAL SALINE 100ML 100 ML IV ONE (17:00)
[2017-02-02 17:38] LABS: BASO # 0.1 x10^3/uL (0.0-0.2); BASO % 1 % (0-3); EOS % 3 % (0-3); HEMATOCRIT 21.9 % (39.0-53.0); HEMOGLOBIN 7.7 g/dL (13.0-17.5); LYMPH # 0.8 x10^3/uL (1.0-4.8); LYMPH % 7 % (24-48); MEAN CORPUSCULAR HEMOGLOBIN 32 pg (25-35); MEAN CORPUSCULAR HGB CONC 35 g/dL (31-37); MEAN CORPUSCULAR VOLUME 91 fL (79-100); MONO % 13 % (0-9); NEUT % 76 % (31-73); PLATELET COUNT 182 x10^3/uL (140-400); RED CELL DISTRIBUTION WIDTH 15.9 % (11.5-14.5); WHITE BLOOD COUNT 10.7 x10^3/uL (4.0-11.0)
[2017-02-02 17:47] LABS: INR 1.4 (0.8-1.1); PROTHROMBIN TIME PATIENT 15.9 SEC (11.7-14.0)
[2017-02-02 17:51] LABS: CALCIUM 9.2 mg/dL (8.5-10.1); CREATININE 2.9 mg/dL (0.7-1.3); GFR 22.1; POTASSIUM 4.6 mmol/L (3.5-5.1)
[2017-02-02 17:57] LABS: ALBUMIN 2.8 g/dL (3.4-5.0); ALBUMIN/GLOBULIN RATIO 0.6 (1.0-1.7); C-REACTIVE PROTEIN 99.3 mg/L (0-3.3); TOTAL BILIRUBIN 0.4 mg/dL (0.2-1.0); TOTAL PROTEIN 7.4 g/dL (6.4-8.2)
[2017-02-02] MEDS ORDERED: fentaNYL PF VIAL 100 MCG/2 ML VIAL IV ONE (18:30)
[2017-02-02] MEDS ORDERED: DIPHTH,PERTUSS(ACELL),TET TOX 0.5 ML DISP.SYRIN. VAX IM ONE (18:30)
[2017-02-02] MEDS ORDERED: LABETALOL 20 MG/4 ML DISP.SYRIN. IVP PRN (19:00)
[2017-02-02] MEDS ORDERED: fentaNYL PF VIAL 100 MCG/2 ML VIAL IV PRN ×5 (19:00→21:45)
[2017-02-02] MEDS ORDERED: DEXTROSE 50% 25 GM / 50ML DISP.SYRIN. IV PRN ×2 (19:00→21:45)
[2017-02-02] MEDS ORDERED: IV NORMAL SALINE 1000ML BAG 1,000 ML IV ONE (19:00)
[2017-02-02] MEDS ORDERED: oxyCODONE/APAP 5/325 1 TAB TABLET PO PRN (19:00)
[2017-02-02] MEDS ORDERED: IV RINGERS,LACTATED 1000ML 1,000 ML IV SCH (19:05)
--- NOTE | 2017-02-02 19:07 | PDOC1 ---
History and Physical Date of Admission Date of Admission DATE: 02/02/17 TIME: 18:58 Identification/Chief Complaint Chief Complaint sent from acute rehab bec of painful left ankle Problems: Source Source: Caregiver, Chart review, Patient History of Present Illness History of Present Illness 62 y.o male, very poor historian, has been in acute rehab as inpt for about 4 weeks now accdg to him, he denies falling today but maybe twristed his ankle, then left ankle pain, difficulty ambulating and bleeding, NOt on OAC but on celebrex. Wound is oozing, DM type 2 on insulin BS high side, unknown hgba1c. Looking at old admits also would have high BP and high BS. Xray shows fracture possible left ankle and signs of necrotizing fasciitis, ESR elevated, Started on broad spectrum by mid level provider with ortho consulted. Procalcitonin and lactate still pending at ER level. Hgb 7, normocytic indices CReat 2 ,3 , upon review old records was 4 plus Past Medical History Cardiovascular: HTN, Hyperlipidemia CENTRAL NERVOUS SYSTEM: CVA, Periperal neuropathy, Other GI: GERD Psych: Depression Renal/: Chronic renal insuff Endocrine: Diabetes Past Surgical History Past Surgical History: Other Family History Family History: Diabetes, Hypertension Social History Smoke: No ALCOHOL: rare Drugs: None Current Medications Current Medications Current Medications Fentanyl Citrate (Fentanyl 2ml Vial) 50 mcg 1X ONCE IM Last administered on 15:59; Start 02/02/17 at 16:00; Stop 02/02/17 at 16:01; Status DC Vancomycin HCl (Vanco Per Pharmacy) 1 each DAILY MC ; Start 02/03/17 at 09:00; Status UNV Piperacillin Sod/ Tazobactam Sod 4.5 gm/Sodium Chloride 100 ml @ 200 mls/hr Q6HRS IV ; Start 02/03/17 at 00:00; Status UNV Vancomycin HCl 2 gm/Sodium Chloride 500 ml @ 250 mls/hr 1X ONCE IV Last administered on 02/02/17 18:13; Start 02/02/17 at 17:00; Stop 02/02/17 at 18:59 Piperacillin Sod/ Tazobactam Sod 4.5 gm/Sodium Chloride 100 ml @ 200 mls/hr 1X ONCE IV Last administered on 02/02/17 17:40; Start 02/02/17 at 17:00; Stop 02/02/17 at 17:29; Status DC Diphtheria/ Tetanus/Acell Pertussis (Boostrix) 0.5 ml ONCE ONCE VAX IM Last administered on 02/02/17t 18:35; Start 02/02/17 at 18:30; Stop 02/02/17 at 18:31 ; Status DC Fentanyl Citrate (Fentanyl 2ml Vial) 75 mcg 1X ONCE IV Last administered on 18:33; Start 02/02/17 at 18:30; Stop 02/02/17 at 18:31; Status DC Labetalol HCl (Normodyne) 10 mg PRN Q2HR PRN IVP 160/100; Start 02/02/17 at 19: 00; Status UNV Atorvastatin Calcium (Lipitor) 20 mg QHS PO ; Start 02/02/17 at 21:00; Status UNV Vitamin D (Vitamin D3) 1,000 unit DAILY PO ; Start 02/03/17 at 09:00; Status UNV Losartan Potassium (Cozaar) 50 mg DAILY PO ; Start 02/03/17 at 09:00; Status UNV Metformin HCl (Glucophage) 500 mg BID PO ; Start 02/02/17 at 21:00; Status UNV Tamsulosin HCl (Flomax) 0.4 mg HS PO ; Start 02/02/17 at 21:00; Status UNV Non-Formulary Medication 40 mg DAILY PO ; Start 02/03/17 at 09:00; Status UNV Non-Formulary Medication 1 cap DAILY PO ; Start 02/03/17 at 09:00; Status UNV Non-Formulary Medication 300 mg BID PO ; Start 02/02/17 at 21:00; Status UNV Non-Formulary Medication 23 unit TIDAC SQ ; Start 02/03/17 at 07:30; Status UNV Active Scripts Active Reported Humalog (Insulin Lispro) 100 Unit/1 Ml Cartridge 23 Unit SQ TIDAC Vitamin D3 (Cholecalciferol (Vitamin D3)) 1,000 Unit Tablet 1 Tab PO DAILY Nexium Capsule (Esomeprazole Magnesium) 40 Mg Capsule. 1 Cap PO DAILY Losartan Potassium 50 Mg Tablet 50 Mg PO DAILY Gabapentin 300 Mg Capsule 300 Mg PO BID Celebrex (Celecoxib) 200 Mg Capsule 200 Mg PO BID 30 Days Citalopram Hbr (Citalopram Hydrobromide) 40 Mg Tablet 40 Mg PO DAILY Lipitor (Atorvastatin Calcium) 20 Mg Tablet 20 Mg PO QHS Flomax (Tamsulosin Hcl) 0.4 Mg Cap.er.24h 0.4 Mg PO HS Metformin Hcl 500 Mg Tablet 500 Mg PO BID Plavix (Clopidogrel Bisulfate) 75 Mg Tablet 75 Mg PO DAILY Allergies Allergies: Coded Allergies: morphine (Verified Allergy, Intermediate, 01/05/17) causes hallucinations ROS Review of System left ankle pain, some neuropathy,.otherwise all else neg Physical Exam General: Alert, Oriented X3, Cooperative, No acute distress HEENT: Atraumatic, PERRLA, EOMI Lungs: Clear to auscultation, Normal air movement Heart: S1S2, RRR, no thrills, no rubs, no gallops Cardiovascular: S1, S2 Abdomen: Normal bowel sounds, Soft, No tenderness, No hepatosplenomegaly, No masses Male Genitals Exam: normal genitalia, normal prostate Rectal Exam: not examined PELVIC: Nml ext genitalia Skin: No rashes, No breakdown, No significant lesion, Other (left ankle swelling and pain and limited ROM with palpable sift tissue sweliing, some crepitus appreciable, oozing blood) Neuro: Normal gait, Normal speech, Strength at 5/5 X4 ext, Normal tone, Sensation intact, Cranial nerves 3-12 NL, Reflexes 2+ Psych/Mental Status: Mental status NL, Mood NL Vitals Vitals Vital Signs Date Time Temp Pulse Resp B/P (MAP) Pulse Ox O2 Delivery O2 Flow Rate FiO2 02/02/17 17:39 94 18 153/72 (99) 94 Room Air 02/02/17 13:36 99.4 99.4 Labs Labs Laboratory Tests Test 02/02/17 17:20 White Blood Count 10.7 x10^3/uL (4.0-11.0) Red Blood Count 2.40 x10^6/uL (4.30-5.70) Hemoglobin 7.7 g/dL (13.0-17.5) Hematocrit 21.9 % (39.0-53.0) Mean Corpuscular Volume 91 fL (79-100) Mean Corpuscular Hemoglobin 32 pg (25-35) Mean Corpuscular Hemoglobin Concent 35 g/dL (31-37) Red Cell Distribution Width 15.9 % (11.5-14.5) Platelet Count 182 x10^3/uL (140-400) Neutrophils (%) (Auto) 76 % (31-73) Lymphocytes (%) (Auto) 7 % (24-48) Monocytes (%) (Auto) 13 % (0-9) Eosinophils (%) (Auto) 3 % (0-3) Basophils (%) (Auto) 1 % (0-3) Neutrophils # (Auto) 8.1 x10^3uL (1.8-7.7) Lymphocytes # (Auto) 0.8 x10^3/uL (1.0-4.8) Monocytes # (Auto) 1.4 x10^3/uL (0.0-1.1) Eosinophils # (Auto) 0.3 x10^3/uL (0.0-0.7) Basophils # (Auto) 0.1 x10^3/uL (0.0-0.2) Erythrocyte Sedimentation Rate 143 (0-15) Prothrombin Time 15.9 SEC (11.7-14.0) Prothromb Time International Ratio 1.4 (0.8-1.1) Activated Partial Thromboplast Time 31 SEC (24-38) Sodium Level 138 mmol/L (136-145) Potassium Level 4.6 mmol/L (3.5-5.1) Chloride Level 101 mmol/L (98-107) Carbon Dioxide Level 26 mmol/L (21-32) Anion Gap 11 (6-14) Blood Urea Nitrogen 81 mg/dL (8-26) Creatinine 2.9 mg/dL (0.7-1.3) Estimated GFR (Cockcroft-Gault) 22.1 BUN/Creatinine Ratio 28 (6-20) Glucose Level 215 mg/dL (70-99) Lactic Acid Level 0.9 mmol/L (0.4-2.0) Calcium Level 9.2 mg/dL (8.5-10.1) Total Bilirubin 0.4 mg/dL (0.2-1.0) Aspartate Amino Transf (AST/SGOT) 30 U/L (15-37) Alanine Aminotransferase (ALT/SGPT) 45 U/L (16-63) Alkaline Phosphatase 93 U/L (46-116) C-Reactive Protein, Quantitative 99.3 mg/L (0-3.3) Total Protein 7.4 g/dL (6.4-8.2) Albumin 2.8 g/dL (3.4-5.0) Albumin/Globulin Ratio 0.6 (1.0-1.7) Laboratory Tests Test 02/02/17 17:20 White Blood Count 10.7 x10^3/uL (4.0-11.0) Red Blood Count 2.40 x10^6/uL (4.30-5.70) Hemoglobin 7.7 g/dL (13.0-17.5) Hematocrit 21.9 % (39.0-53.0) Mean Corpuscular Volume 91 fL (79-100) Mean Corpuscular Hemoglobin 32 pg (25-35) Mean Corpuscular Hemoglobin Concent 35 g/dL (31-37) Red Cell Distribution Width 15.9 % (11.5-14.5) Platelet Count 182 x10^3/uL (140-400) Neutrophils (%) (Auto) 76 % (31-73) Lymphocytes (%) (Auto) 7 % (24-48) Monocytes (%) (Auto) 13 % (0-9) Eosinophils (%) (Auto) 3 % (0-3) Basophils (%) (Auto) 1 % (0-3) Neutrophils # (Auto) 8.1 x10^3uL (1.8-7.7) Lymphocytes # (Auto) 0.8 x10^3/uL (1.0-4.8) Monocytes # (Auto) 1.4 x10^3/uL (0.0-1.1) Eosinophils # (Auto) 0.3 x10^3/uL (0.0-0.7) Basophils # (Auto) 0.1 x10^3/uL (0.0-0.2) Erythrocyte Sedimentation Rate 143 (0-15) Prothrombin Time 15.9 SEC (11.7-14.0) Prothromb Time International Ratio 1.4 (0.8-1.1) Activated Partial Thromboplast Time 31 SEC (24-38) Sodium Level 138 mmol/L (136-145) Potassium Level 4.6 mmol/L (3.5-5.1) Chloride Level 101 mmol/L (98-107) Carbon Dioxide Level 26 mmol/L (21-32) Anion Gap 11 (6-14) Blood Urea Nitrogen 81 mg/dL (8-26) Creatinine 2.9 mg/dL (0.7-1.3) Estimated GFR (Cockcroft-Gault) 22.1 BUN/Creatinine Ratio 28 (6-20) Glucose Level 215 mg/dL (70-99) Lactic Acid Level 0.9 mmol/L (0.4-2.0) Calcium Level 9.2 mg/dL (8.5-10.1) Total Bilirubin 0.4 mg/dL (0.2-1.0) Aspartate Amino Transf (AST/SGOT) 30 U/L (15-37) Alanine Aminotransferase (ALT/SGPT) 45 U/L (16-63) Alkaline Phosphatase 93 U/L (46-116) C-Reactive Protein, Quantitative 99.3 mg/L (0-3.3) Total Protein 7.4 g/dL (6.4-8.2) Albumin 2.8 g/dL (3.4-5.0) Albumin/Globulin Ratio 0.6 (1.0-1.7) VTE Prophylaxis Ordered VTE Prophylaxis Devices: Contraindicated VTE Pharmacological Prophylaxi: Contraindicated Assessment/Plan Assessment/Plan 1. Left ankle fx, left ankle necrotizing fasciitis with oozing wound/bloody dc - ortho, ID consults, broad spectrum vanc and zosyn 2. BRYCE on CKD 3. DM 2 insulin req, uncontrolled 4.MOrbid Obesity BMI 46 5. Anemia, normocytic possible of CKD 6. Allergy/adverse effect to morphine (loopy) 7. HTN, Depression CVA, dyslipidemia - - all chronc stable PLAn: Admit 2 MN PT/OT Wound care ADA tonight then NPO post MN incase I and D ID consult SSI high dose REsume home meds HOld losartan and celebrex in case sx and also bec of BRYCE Hydrate, judiciously NO DVT prophy bec of anemia, may do SCDs UA for BRYCE Renal consult to monitor/address kidney fcn while early Would transfuse if hgb < 7 Seen at ER 5 MARINA GREGG MD Feb 02, 2017 19:07
[2017-02-02] MEDS: VANCOMYCIN PER PHARMACY MC PRN (19:11)
[2017-02-02 19:12] LABS: BILIRUBIN,URINE NEGATIVE (NEG); GLUCOSE,URINE NEGATIVE (NEG); NITRITE,URINE NEGATIVE (NEG); PROTEIN,URINE NEGATIVE (NEG-TRACE); UROBILINOGEN,URINE 0.2 mg/dL (0.2 mg/dL)
[2017-02-02] MEDS ORDERED: LIDOCAINE 1% 1 ML SYRINGE. ID PRN (19:15)
[2017-02-02] MEDS ORDERED: PROCHLORPERAZINE 10 MG/2 ML VIAL. IV PRN (19:15)
[2017-02-02 19:17] LABS: BACTERIA,URINE 0 /HPF (0-FEW); RBC,URINE OCC /HPF (0-2)
[2017-02-02 19:18] LABS: SQUAMOUS EPITHELIAL CELL,UR OCC /LPF
[2017-02-02] MEDS ORDERED: DEXAMETHASONE SOD PHOS 20 MG/5 ML VIAL. ONE (19:30)
[2017-02-02] MEDS ORDERED: PROPOFOL 20 ML IV ONE (19:30)
[2017-02-02] MEDS ORDERED: LIDOCAINE 2% PF Vial for OR 5 ML VIAL. ONE (19:30)
[2017-02-02] MEDS ORDERED: DESFLURANE 31 TO 60 MINUTES IH ONE (19:30)
[2017-02-02] MEDS ORDERED: ONDANSETRON PF 4 MG/2 ML VIAL. ONE (19:30)
[2017-02-02] MEDS ORDERED: fentaNYL PF VIAL 100 MCG/2 ML VIAL ONE (19:30)
[2017-02-02] MEDS ORDERED: BUPIVACAINE-EPI 0.25%-1:200000 MPF 30 ML VIAL. ONE (19:33)
[2017-02-02] MEDS ORDERED: ONDANSETRON PF 4 MG/2 ML VIAL. IV PRN ×2 (19:45→21:45)
--- NOTE | 2017-02-02 19:56 | PHYS DOC ---
Past Medical History Past Medical History: CVA, Depression, Diabetes-Type II, GERD, High Cholesterol , Hypertension, Other Additional Past Medical Histor: charcoit foot, NEUROPATHY, SLEEP APNEA Past Surgical History: Cholecystectomy, Other Additional Past Surgical Histo: right foot surgery, hemmorhoid surgery, non- descended testicle, hernia, R K Alcohol Use: None Drug Use: None Adult General Chief Complaint Chief Complaint: FOOT INJURY PAIN HPI HPI Patient is a 62 year old male very poor historian presenting to the ED from [facility]. Patient states he was admitted 4 weeks ago for right foot infection. Patient states this morning at 3 AM he got up to use the bathroom twisting his left ankle and it immediately started hurting. Patient states he has history of renal failure and is currently on dialysis. He also states he has history of diabetes type 2, hypertension, right foot chronic wound with wound vac PCP-Dr. Mi Costello. Review of Systems Review of Systems Constitutional: Denies fever or chills [] Eyes: Denies change in visual acuity, redness, or eye pain [] HENT: Denies nasal congestion or sore throat [] Respiratory: Denies cough or shortness of breath [] Cardiovascular: No additional information not addressed in HPI [] GI: Denies abdominal pain, nausea, vomiting, bloody stools or diarrhea [] : Denies dysuria or hematuria [] Musculoskeletal: Left ankle and foot pain Integument: Right foot chronic wound with a wound VAC, left foot wound Neurologic: Denies headache, focal weakness or sensory changes [] Endocrine: Denies polyuria or polydipsia [] Current Medications Current Medications Current Medications Medications (Trade) Dose Ordered Sig/Serenity Start Time Stop Time Status Last Admin Dose Admin Fentanyl Citrate (Fentanyl 2ml Vial) 50 mcg 1X ONCE 02/02/17 16:00 02/02/17 16:01 DC 02/02/17 15:59 50 MCG Piperacillin Sod/ Tazobactam Sod 4.5 gm/Sodium Chloride 100 ml @ 200 mls/hr 1X ONCE 02/02/17 17:00 02/02/17 17:29 DC 02/02/17 17:40 200 MLS/HR Vancomycin HCl 2 gm/Sodium Chloride 500 ml @ 250 mls/hr 1X ONCE 02/02/17 17:00 02/02/17 18:59 DC 02/02/17 18:13 250 MLS/HR Allergies Allergies Allergies Coded Allergies Type Severity Reaction Last Updated Verified morphine Allergy Intermediate 01/05/17 Yes Physical Exam Physical Exam Constitutional: Overweight patient. Well developed, well nourished, no acute distress, non-toxic appearance. [] HENT: Normocephalic, atraumatic, bilateral external ears normal, oropharynx moist, no oral exudates, nose normal. [] Eyes: PERRLA, EOMI, conjunctiva normal, no discharge. [] Neck: Normal range of motion, no tenderness, supple, no stridor. [] Cardiovascular:Heart rate regular rhythm, no murmur [] Lungs & Thorax: Bilateral breath sounds clear to auscultation [] Abdomen: Bowel sounds normal, soft, no tenderness, no masses, no pulsatile masses. [] Skin: Please see extremity Back: No tenderness, no CVA tenderness. [] Extremities: Left ankle and foot are moderately swollen, left foot above the heel with an open stage 2-3 foot ulcer approx. 6X5 cm with yellow bloody drainage. There is cellulitis noted on anterior aspect of the ankle. The ankle appears deformed. Poor sensation to the left lower extremity due to chronic neuropathy. +1 left pedal pulse. Cap refill less than 2 seconds the left toes. Limited range of motion to the left foot and ankle due to pain. Right foot with a wound vac. Neurologic: Alert and oriented X 3, normal motor function, normal sensory function, no focal deficits noted. [] Psychologic: Affect normal, judgement normal, mood normal. [] Current Patient Data Vital Signs Vital Signs Date Time Temp Pulse Resp B/P (MAP) Pulse Ox O2 Delivery O2 Flow Rate FiO2 02/02/17 18:00 64 18 147/82 (103) 95 Room Air 02/02/17 13:36 99.4 99.4 Lab Values Laboratory Tests Test 02/02/17 16:45 02/02/17 17:20 Urine Collection Type Unknown Urine Color Yellow Urine Clarity Clear Urine pH 5.0 Urine Specific [place] 1.010 Urine Protein Negative mg/dL (NEG-TRACE) Urine Glucose (UA) Negative mg/dL (NEG) Urine Ketones (Stick) Negative mg/dL (NEG) Urine Blood Negative (NEG) Urine Nitrite Negative (NEG) Urine Bilirubin Negative (NEG) Urine Urobilinogen Dipstick 0.2 mg/dL (0.2 mg/dL) Urine Leukocyte Esterase Negative (NEG) Urine RBC Occ /HPF (0-2) Urine WBC 1-4 /HPF (0-4) Urine Squamous Epithelial Cells Occ /LPF Urine Bacteria 0 /HPF (0-FEW) Urine Mucus Slight /LPF White Blood Count 10.7 x10^3/uL (4.0-11.0) Red Blood Count 2.40 x10^6/uL (4.30-5.70) L Hemoglobin 7.7 g/dL (13.0-17.5) L Hematocrit 21.9 % (39.0-53.0) L Mean Corpuscular Volume 91 fL (79-100) Mean Corpuscular Hemoglobin 32 pg (25-35) Mean Corpuscular Hemoglobin Concent 35 g/dL (31-37) Red Cell Distribution Width 15.9 % (11.5-14.5) H Platelet Count 182 x10^3/uL (140-400) Neutrophils (%) (Auto) 76 % (31-73) H Lymphocytes (%) (Auto) 7 % (24-48) L Monocytes (%) (Auto) 13 % (0-9) H Eosinophils (%) (Auto) 3 % (0-3) Basophils (%) (Auto) 1 % (0-3) Neutrophils # (Auto) 8.1 x10^3uL (1.8-7.7) H Lymphocytes # (Auto) 0.8 x10^3/uL (1.0-4.8) L Monocytes # (Auto) 1.4 x10^3/uL (0.0-1.1) H Eosinophils # (Auto) 0.3 x10^3/uL (0.0-0.7) Basophils # (Auto) 0.1 x10^3/uL (0.0-0.2) Erythrocyte Sedimentation Rate 143 (0-15) H Prothrombin Time 15.9 SEC (11.7-14.0) H Prothrombin Time INR 1.4 (0.8-1.1) H PTT 31 SEC (24-38) Sodium Level 138 mmol/L (136-145) Potassium Level 4.6 mmol/L (3.5-5.1) Chloride Level 101 mmol/L (98-107) Carbon Dioxide Level 26 mmol/L (21-32) Anion Gap 11 (6-14) Blood Urea Nitrogen 81 mg/dL (8-26) H Creatinine 2.9 mg/dL (0.7-1.3) H Estimated GFR (Cockcroft-Gault) 22.1 BUN/Creatinine Ratio 28 (6-20) H Glucose Level 215 mg/dL (70-99) H Lactic Acid Level 0.9 mmol/L (0.4-2.0) Calcium Level 9.2 mg/dL (8.5-10.1) Total Bilirubin 0.4 mg/dL (0.2-1.0) Aspartate Amino Transferase (AST) 30 U/L (15-37) Alanine Aminotransferase (ALT) 45 U/L (16-63) Alkaline Phosphatase 93 U/L (46-116) C-Reactive Protein, Quantitative 99.3 mg/L (0-3.3) H Total Protein 7.4 g/dL (6.4-8.2) Albumin 2.8 g/dL (3.4-5.0) L Albumin/Globulin Ratio 0.6 (1.0-1.7) L Procalcitonin 0.56 ng/mL (0.00-0.10) H Laboratory Tests 02/02/17 17:20 Laboratory Tests 02/02/17 17:20 EKG EKG [] Radiology/Procedures Radiology/Procedures [] Course & Med Decision Making Course & Med Decision Making Pertinent Labs and Imaging studies reviewed. (See chart for details) This is a 62-year-old male patient presenting from [facility]. Patient is very poor historian. He is in the ED with complaints of left foot/ankle pain after twisting his ankle this morning at 3 AM at the rehabilitation facility. Left foot x-ray interpreted by radiologist was noted for diffuse soft tissue swelling on the left ankle concerning for gas and necrotizing fasciitis. There is also concern for osteomyelitis. Patient also has Tibia dislocation, he does have a wound on the foot just above the heel draining yellow purulent material. This wound does not appear to be new. Consulted with Dr. Van who will take patient to surgery today Consulted with Dr. Perez who accepted patient for admission Patient was started on the sepsis protocol. Precaution was exercised to avoid IV fluid infusion per sepsis protocol because patient has history of renal failure and is on dialysis. Patient was started on vancomycin and Zosyn. Dragon Disclaimer Dragon Disclaimer This electronic medical record was generated, in whole or in part, using a voice recognition dictation system. Departure Departure Impression: Primary Impression: ESRD (end stage renal disease) Additional Impressions: Necrotizing fasciitis Dislocation of tibia, upper, lateral Fractured fibula Disposition: ADMITTED INPATIENT Condition: STABLE Referrals: MI COSTELLO MD (PCP) Problem Qualifiers Additional Impressions: Dislocation of tibia, upper, lateral Encounter type: initial encounter Laterality: left Qualified Codes: S83.145A - Lateral dislocation of proximal end of tibia, left knee, initial encounter Fractured fibula Encounter type: initial encounter Fibula location: proximal Fracture type: open Open fracture type: open type I or II Fracture morphology: other fracture Laterality: left Qualified Codes: S82.832B - Other fracture of upper and lower end of left fibula, initial encounter for open fracture type I or II ASHLEE TOLENTINO APRN Feb 02, 2017 19:56
[2017-02-02] MEDS: TAMSULOSIN 0.4 MG CAP.ER.24H. PO SCH (21:00)
[2017-02-02] MEDS: ATORVASTATIN CALCIUM 20 MG TABLET PO SCH (21:00)
[2017-02-02] MEDS ORDERED: metFORMIN 500 MG TABLET PO SCH (21:00)
[2017-02-02] MEDS: GABAPENTIN 300 MG CAPSULE. PO SCH (21:00)
--- NOTE | 2017-02-02 21:43 | PDOC ---
BRIEF OPERATIVE NOTE Date: Feb 02, 2017 Pre-Op Diagnosis Closed left ankle trimalleolar fracture dislocation Ankle abscess Post-Op Diagnosis Closed left ankle trimalleolar fracture dislocation Ankle abscess Procedure Performed Closed reduction ankle fracture dislocation with external Fixateur application An incision and drainage of the left ankle abscess Surgeon [address] Anesthesiologist Rolly Anesthesia Type: General Blood Loss 25 mL Specimens Obtained Deep cultures from the lateral ankle Findings Lateral ankle abscess or hematoma probably extending to the ankle joint, and extending somewhat anteriorly along the ankle capsule. Cultures taken. Incision and drainage performed and open wound packing performed. A closed reduction was performed of the ankle dislocation with delta frame external fixator application , including a heel protector posterior hoop. Satisfactory reduction and fixation was obtained with the ex-fix. Copious irrigation was used with the [employer] glove stitcher of that lateral ankle wound. Complications None OPerative Note Dictation to follow DELVIN STROUD MD Feb 02, 2017 21:43
[2017-02-02] MEDS ORDERED: oxyCODONE IR 5 MG TABLET PO PRN (21:45)
[2017-02-02] MEDS ORDERED: POLYETHYLENE GLYCOL 3350 17 GM PACKET. PO PRN (21:45)
[2017-02-02] MEDS ORDERED: PROCHLORPERAZINE 10 MG/2 ML VIAL. ONE (21:58)
[2017-02-02 22:15] VITALS: BP 137/76
[2017-02-02 22:30] VITALS: BP 130/83
[2017-02-02] MEDS: HALOPERIDOL LACTATE 5 MG/ML VIAL. IVP PRN ×2 (22:40→23:35)
[2017-02-02] MEDS ORDERED: HALOPERIDOL LACTATE 5 MG/ML VIAL. IVP PRN (22:45)
[2017-02-02] MEDS ORDERED: LORazepam 1 MG TABLET PO PRN (22:45)
--- NOTE | 2017-02-02 23:28 | ACF ---
Admission Forms Criteria WOUND COMPLICATIONS Clinical Indications for Inpatient Care (Place 'X' for any and all applicable criteria): Ongoing inpatient care may be indicated for wound complications with ANY ONE of the following (1) (15): [X]I. Infection with ANY ONE of the following(32)(33): [ ]a) Temperature greater than 38.5 C (101.3 F) [X]b) Evidence of tissue necrosis [ ]c) Erythema diameter expanding around wound despite treatment [ ]d) Mental status changes [ ]e) Dehydration [ ]f) Bacteremia [ ]g) Hemodynamic instability [ ]h) Suspected necrotizing fasciitis [ ]i) Rapidly spreading lesions [ ]j) High-risk location (eg, perineum, sternum, orbit) [X]k) High-risk coexisting clinical condition as indicated by ANY ONE of the following: [ ]i) Poorly controlled diabetes [ ]ii) Cirrhosis [X]iii) Renal failure [ ]iv) Neutropenia [ ] v) Asplenia [ ]vi) Immunosuppression (eg, AIDS, chronic corticosteroid use) [ ]viii) Other high-risk medical comorbidities [ ] II. Dehiscence requiring frequent monitoring or immediate treatment [ ] III. Hematoma with ANY ONE of the following: [ ]a) Hemodynamic instability or acute anemia due to rapid development of hematoma [ ]b) Neck hematoma causing airway compression [ ]c) Retroperitoneal hematoma [ ]d) Uncontrolled coagulopathy [ ]IV. Seroma with evidence of secondary infection and requirement for IV antibiotics [D](31) [ ]V. Pain that cannot be managed at lower level of care Extended stay beyond goal length of stay for primary condition may be needed until ALL of the following are present(1)(33)(34): [ ]a) Afebrile or fever resolving [ ]b) Hemodynamic stability [ ]c) Pain resolving [ ]d) Wound closed, continuity adequately restored, or wound manageable at lower level of care [ ]e) No drain needed or drain care manageable at lower level of care [ ]f) Wound hematoma or seroma resolving [ ]g) Antibiotics not needed or regimen manageable at lower level of care(38) [ ]h) Dressing care manageable at lower level of care [ ]i) Coagulopathy absent, resolved, or treatable at lower level of care [ ]j) Medical comorbidities resolved or treatable at lower level of care The original [facility] [employer] content created by [employer] has been revised. The portions of the content which have been revised are identified through the use of italic text or in bold, and Franci Ontiveros has neither reviewed nor approved the modified material. All other unmodified content is copyright [facility] [employer]. Please see references footnoted in the original [facility] edition 2016 Admission Criteria Met?: Yes GABI CHAND Feb 02, 2017 23:28
[2017-02-02 23:30] VITALS: BP 134/73
[2017-02-02 23:55] VITALS: BP 136/72
[2017-02-03] VITALS (12 sets, daily range): BP systolic 96–140; BP diastolic 48–77
[2017-02-03] MEDS ORDERED: PIPERACILLIN/TAZOBACTAM 4.5 GM in IV NORMAL SALINE 100ML 100 ML IV SCH ×2
[2017-02-03] MEDS: PIPERACILLIN/TAZOBACTAM 3.375 GM in IV NORMAL SALINE 50ML 50 ML IV SCH ×5 (00:57→18:10)
[2017-02-03] MEDS: HALOPERIDOL LACTATE 5 MG/ML VIAL. IVP PRN (05:47)
[2017-02-03] MEDS ORDERED: MAGNESIUM HYDROXIDE 2,400 MG/30 ML ORAL.SUSP. PO PRN (06:00)
[2017-02-03] MEDS ORDERED: VANCOMYCIN 1 GM in IV NORMAL SALINE 250ML 250 ML IV SCH (06:00)
[2017-02-03] MEDS ORDERED: INSULIN ASPART 300 UNITS/3 ML INSULN.PEN SQ SCH (07:30)
[2017-02-03 08:07] LABS: BASO % 0 % (0-3); EOS % 0 % (0-3); LYMPH # 0.4 x10^3/uL (1.0-4.8); LYMPH % 5 % (24-48); MEAN CORPUSCULAR HEMOGLOBIN 32 pg (25-35); MEAN CORPUSCULAR HGB CONC 34 g/dL (31-37); MEAN CORPUSCULAR VOLUME 93 fL (79-100); MONO % 7 % (0-9); NEUT % 88 % (31-73); PLATELET COUNT 137 x10^3/uL (140-400); RED BLOOD COUNT 2.07 x10^6/uL (4.30-5.70); RED CELL DISTRIBUTION WIDTH 15.9 % (11.5-14.5); WHITE BLOOD COUNT 8.8 x10^3/uL (4.0-11.0)
[2017-02-03 08:14] LABS: HEMATOCRIT 19.2 % (39.0-53.0); HEMOGLOBIN 6.5 g/dL (13.0-17.5)
[2017-02-03 08:15] LABS: CREATININE 2.7 mg/dL (0.7-1.3); POTASSIUM 4.9 mmol/L (3.5-5.1)
--- NOTE | 2017-02-03 08:29 | RAD ---
Left ankle, 3 views, 02/02/2017: History: Fracture, pain There is a fracture of the medial malleolus with considerable lateral displacement of the distal fracture fragment. There is a slightly comminuted fracture of the distal fibula with lateral displacement and angulation of the major distal fracture fragment. The talus is dislocated laterally relative to the articular surface of the distal tibia. There is extensive soft tissue swelling. Arterial calcifications are noted. IMPRESSION: Bimalleolar fracture/dislocation of the left ankle.
--- NOTE | 2017-02-03 08:46 | RAD ---
Portable chest, 02/02/2017: History: Preop evaluation Comparison is made to a study from 01/04/2017. A dialysis type catheter extends into the inferior aspect of the superior vena cava. The heart size and pulmonary vascularity are normal. The lungs are clear. There is no evidence of pleural fluid. IMPRESSION: No acute cardiopulmonary abnormality is detected.
[2017-02-03] MEDS ORDERED: LOSARTAN POTASSIUM 50 MG TABLET. PO SCH (09:00)
--- NOTE | 2017-02-03 09:33 | PDOC ---
Infectious Disease Note Vital Sign Vital Signs Vital Signs Date Time Temp Pulse Resp B/P (MAP) Pulse Ox O2 Delivery O2 Flow Rate FiO2 02/03/17 07:00 97.5 83 18 134/77 (96) 92 Room Air 97.5 02/03/17 02:00 2.0 Labs Lab Laboratory Tests Test 02/02/17 16:45 02/02/17 17:20 02/02/17 21:37 02/02/17 22:25 Urine Collection Type Unknown Urine Color Yellow Urine Clarity Clear Urine pH 5.0 Urine Specific [place] 1.010 Urine Protein Negative mg/dL (NEG-TRACE) Urine Glucose (UA) Negative mg/dL (NEG) Urine Ketones (Stick) Negative mg/dL (NEG) Urine Blood Negative (NEG) Urine Nitrite Negative (NEG) Urine Bilirubin Negative (NEG) Urine Urobilinogen Dipstick 0.2 mg/dL (0.2 mg/dL) Urine Leukocyte Esterase Negative (NEG) Urine RBC Occ /HPF (0-2) Urine WBC 1-4 /HPF (0-4) Urine Squamous Epithelial Cells Occ /LPF Urine Bacteria 0 /HPF (0-FEW) Urine Mucus Slight /LPF White Blood Count 10.7 x10^3/uL (4.0-11.0) Red Blood Count 2.40 x10^6/uL (4.30-5.70) Hemoglobin 7.7 g/dL (13.0-17.5) Hematocrit 21.9 % (39.0-53.0) Mean Corpuscular Volume 91 fL (79-100) Mean Corpuscular Hemoglobin 32 pg (25-35) Mean Corpuscular Hemoglobin Concent 35 g/dL (31-37) Red Cell Distribution Width 15.9 % (11.5-14.5) Platelet Count 182 x10^3/uL (140-400) Neutrophils (%) (Auto) 76 % (31-73) Lymphocytes (%) (Auto) 7 % (24-48) Monocytes (%) (Auto) 13 % (0-9) Eosinophils (%) (Auto) 3 % (0-3) Basophils (%) (Auto) 1 % (0-3) Neutrophils # (Auto) 8.1 x10^3uL (1.8-7.7) Lymphocytes # (Auto) 0.8 x10^3/uL (1.0-4.8) Monocytes # (Auto) 1.4 x10^3/uL (0.0-1.1) Eosinophils # (Auto) 0.3 x10^3/uL (0.0-0.7) Basophils # (Auto) 0.1 x10^3/uL (0.0-0.2) Erythrocyte Sedimentation Rate 143 (0-15) Prothrombin Time 15.9 SEC (11.7-14.0) Prothromb Time International Ratio 1.4 (0.8-1.1) Activated Partial Thromboplast Time 31 SEC (24-38) Sodium Level 138 mmol/L (136-145) Potassium Level 4.6 mmol/L (3.5-5.1) Chloride Level 101 mmol/L (98-107) Carbon Dioxide Level 26 mmol/L (21-32) Anion Gap 11 (6-14) Blood Urea Nitrogen 81 mg/dL (8-26) Creatinine 2.9 mg/dL (0.7-1.3) Estimated GFR (Cockcroft-Gault) 22.1 BUN/Creatinine Ratio 28 (6-20) Glucose Level 215 mg/dL (70-99) Lactic Acid Level 0.9 mmol/L (0.4-2.0) Calcium Level 9.2 mg/dL (8.5-10.1) Total Bilirubin 0.4 mg/dL (0.2-1.0) Aspartate Amino Transf (AST/SGOT) 30 U/L (15-37) Alanine Aminotransferase (ALT/SGPT) 45 U/L (16-63) Alkaline Phosphatase 93 U/L (46-116) C-Reactive Protein, Quantitative 99.3 mg/L (0-3.3) Total Protein 7.4 g/dL (6.4-8.2) Albumin 2.8 g/dL (3.4-5.0) Albumin/Globulin Ratio 0.6 (1.0-1.7) Procalcitonin 0.56 ng/mL (0.00-0.10) Glucose (Fingerstick) 205 mg/dL (70-99) 247 mg/dL (70-99) Test 02/02/17 23:15 02/03/17 07:36 02/03/17 07:45 Lactic Acid Level 1.1 mmol/L (0.4-2.0) Glucose (Fingerstick) 253 mg/dL (70-99) White Blood Count 8.8 x10^3/uL (4.0-11.0) Red Blood Count 2.07 x10^6/uL (4.30-5.70) Hemoglobin 6.5 g/dL (13.0-17.5) Hematocrit 19.2 % (39.0-53.0) Mean Corpuscular Volume 93 fL (79-100) Mean Corpuscular Hemoglobin 32 pg (25-35) Mean Corpuscular Hemoglobin Concent 34 g/dL (31-37) Red Cell Distribution Width 15.9 % (11.5-14.5) Platelet Count 137 x10^3/uL (140-400) Neutrophils (%) (Auto) 88 % (31-73) Lymphocytes (%) (Auto) 5 % (24-48) Monocytes (%) (Auto) 7 % (0-9) Eosinophils (%) (Auto) 0 % (0-3) Basophils (%) (Auto) 0 % (0-3) Neutrophils # (Auto) 7.8 x10^3uL (1.8-7.7) Lymphocytes # (Auto) 0.4 x10^3/uL (1.0-4.8) Monocytes # (Auto) 0.6 x10^3/uL (0.0-1.1) Eosinophils # (Auto) 0.0 x10^3/uL (0.0-0.7) Basophils # (Auto) 0.0 x10^3/uL (0.0-0.2) Sodium Level 139 mmol/L (136-145) Potassium Level 4.9 mmol/L (3.5-5.1) Chloride Level 102 mmol/L (98-107) Carbon Dioxide Level 25 mmol/L (21-32) Anion Gap 12 (6-14) Blood Urea Nitrogen 76 mg/dL (8-26) Creatinine 2.7 mg/dL (0.7-1.3) Estimated GFR (Cockcroft-Gault) 24.0 Glucose Level 255 mg/dL (70-99) Calcium Level 9.0 mg/dL (8.5-10.1) Troponin I Quantitative < 0.017 ng/mL (0.000-0.055) Objective Assessment Left ankle abscess s/p I and D ? necrotizing fascitis Bi malleolar ankle fracture s/p ext fixation Rt calcaneal wound with vac in place ESRD on HD Plan Plan of Care smith I and D done supportive care ROLANDO RUIZ MD Feb 03, 2017 09:33
[2017-02-03 09:42] LABS: HYPOCHROMIA SLIGHT; PLT ESTIMATE ADEQUATE (ADEQUATE)
--- NOTE | 2017-02-03 10:13 | PDOC ---
PROGRESS NOTES Subjective Subjective Resting in bed with RN at bedside preparing for straight cath. Per RN, Joaquim Rick was called last night on patient. RN states pt has been agitated and somewhat confused since surgery. Pt reports he is doing okay and pain is controlled. Objective Vital Signs Vital Signs Date Time Temp Pulse Resp B/P (MAP) Pulse Ox O2 Delivery O2 Flow Rate FiO2 02/03/17 07:00 97.5 83 18 134/77 (96) 92 Room Air 97.5 02/03/17 02:00 2.0 Physical Exam Lying in bed with RN at bedside. Left ankle external fixator in place. Postop dressing intact with spotty drainage around medial ankle. Able to dorsiflex and plantarflex toes without difficulty. NVI distally. Wound vac in place to right heel. Labs Laboratory Tests Test 02/02/17 16:45 02/02/17 17:20 02/02/17 21:37 02/02/17 22:25 Urine Collection Type Unknown Urine Color Yellow Urine Clarity Clear Urine pH 5.0 Urine Specific [place] 1.010 Urine Protein Negative mg/dL (NEG-TRACE) Urine Glucose (UA) Negative mg/dL (NEG) Urine Ketones (Stick) Negative mg/dL (NEG) Urine Blood Negative (NEG) Urine Nitrite Negative (NEG) Urine Bilirubin Negative (NEG) Urine Urobilinogen Dipstick 0.2 mg/dL (0.2 mg/dL) Urine Leukocyte Esterase Negative (NEG) Urine RBC Occ /HPF (0-2) Urine WBC 1-4 /HPF (0-4) Urine Squamous Epithelial Cells Occ /LPF Urine Bacteria 0 /HPF (0-FEW) Urine Mucus Slight /LPF White Blood Count 10.7 x10^3/uL (4.0-11.0) Red Blood Count 2.40 x10^6/uL (4.30-5.70) Hemoglobin 7.7 g/dL (13.0-17.5) Hematocrit 21.9 % (39.0-53.0) Mean Corpuscular Volume 91 fL (79-100) Mean Corpuscular Hemoglobin 32 pg (25-35) Mean Corpuscular Hemoglobin Concent 35 g/dL (31-37) Red Cell Distribution Width 15.9 % (11.5-14.5) Platelet Count 182 x10^3/uL (140-400) Neutrophils (%) (Auto) 76 % (31-73) Lymphocytes (%) (Auto) 7 % (24-48) Monocytes (%) (Auto) 13 % (0-9) Eosinophils (%) (Auto) 3 % (0-3) Basophils (%) (Auto) 1 % (0-3) Neutrophils # (Auto) 8.1 x10^3uL (1.8-7.7) Lymphocytes # (Auto) 0.8 x10^3/uL (1.0-4.8) Monocytes # (Auto) 1.4 x10^3/uL (0.0-1.1) Eosinophils # (Auto) 0.3 x10^3/uL (0.0-0.7) Basophils # (Auto) 0.1 x10^3/uL (0.0-0.2) Erythrocyte Sedimentation Rate 143 (0-15) Prothrombin Time 15.9 SEC (11.7-14.0) Prothromb Time International Ratio 1.4 (0.8-1.1) Activated Partial Thromboplast Time 31 SEC (24-38) Sodium Level 138 mmol/L (136-145) Potassium Level 4.6 mmol/L (3.5-5.1) Chloride Level 101 mmol/L (98-107) Carbon Dioxide Level 26 mmol/L (21-32) Anion Gap 11 (6-14) Blood Urea Nitrogen 81 mg/dL (8-26) Creatinine 2.9 mg/dL (0.7-1.3) Estimated GFR (Cockcroft-Gault) 22.1 BUN/Creatinine Ratio 28 (6-20) Glucose Level 215 mg/dL (70-99) Lactic Acid Level 0.9 mmol/L (0.4-2.0) Calcium Level 9.2 mg/dL (8.5-10.1) Total Bilirubin 0.4 mg/dL (0.2-1.0) Aspartate Amino Transf (AST/SGOT) 30 U/L (15-37) Alanine Aminotransferase (ALT/SGPT) 45 U/L (16-63) Alkaline Phosphatase 93 U/L (46-116) C-Reactive Protein, Quantitative 99.3 mg/L (0-3.3) Total Protein 7.4 g/dL (6.4-8.2) Albumin 2.8 g/dL (3.4-5.0) Albumin/Globulin Ratio 0.6 (1.0-1.7) Procalcitonin 0.56 ng/mL (0.00-0.10) Glucose (Fingerstick) 205 mg/dL (70-99) 247 mg/dL (70-99) Test 02/02/17 23:15 02/03/17 07:36 02/03/17 07:45 Lactic Acid Level 1.1 mmol/L (0.4-2.0) Glucose (Fingerstick) 253 mg/dL (70-99) White Blood Count 8.8 x10^3/uL (4.0-11.0) Red Blood Count 2.07 x10^6/uL (4.30-5.70) Hemoglobin 6.5 g/dL (13.0-17.5) Hematocrit 19.2 % (39.0-53.0) Mean Corpuscular Volume 93 fL (79-100) Mean Corpuscular Hemoglobin 32 pg (25-35) Mean Corpuscular Hemoglobin Concent 34 g/dL (31-37) Red Cell Distribution Width 15.9 % (11.5-14.5) Platelet Count 137 x10^3/uL (140-400) Neutrophils (%) (Auto) 88 % (31-73) Lymphocytes (%) (Auto) 5 % (24-48) Monocytes (%) (Auto) 7 % (0-9) Eosinophils (%) (Auto) 0 % (0-3) Basophils (%) (Auto) 0 % (0-3) Neutrophils # (Auto) 7.8 x10^3uL (1.8-7.7) Lymphocytes # (Auto) 0.4 x10^3/uL (1.0-4.8) Monocytes # (Auto) 0.6 x10^3/uL (0.0-1.1) Eosinophils # (Auto) 0.0 x10^3/uL (0.0-0.7) Basophils # (Auto) 0.0 x10^3/uL (0.0-0.2) Segmented Neutrophils % 94 % (35-66) Lymphocytes % 1 % (24-48) Monocytes % 5 % (0-10) Platelet Estimate Adequate (ADEQUATE) Hypochromasia Slight Sodium Level 139 mmol/L (136-145) Potassium Level 4.9 mmol/L (3.5-5.1) Chloride Level 102 mmol/L (98-107) Carbon Dioxide Level 25 mmol/L (21-32) Anion Gap 12 (6-14) Blood Urea Nitrogen 76 mg/dL (8-26) Creatinine 2.7 mg/dL (0.7-1.3) Estimated GFR (Cockcroft-Gault) 24.0 Glucose Level 255 mg/dL (70-99) Calcium Level 9.0 mg/dL (8.5-10.1) Troponin I Quantitative < 0.017 ng/mL (0.000-0.055) Laboratory Tests Test 02/02/17 16:45 02/02/17 17:20 02/02/17 21:37 02/02/17 22:25 Urine Collection Type Unknown Urine Color Yellow Urine Clarity Clear Urine pH 5.0 Urine Specific [place] 1.010 Urine Protein Negative mg/dL (NEG-TRACE) Urine Glucose (UA) Negative mg/dL (NEG) Urine Ketones (Stick) Negative mg/dL (NEG) Urine Blood Negative (NEG) Urine Nitrite Negative (NEG) Urine Bilirubin Negative (NEG) Urine Urobilinogen Dipstick 0.2 mg/dL (0.2 mg/dL) Urine Leukocyte Esterase Negative (NEG) Urine RBC Occ /HPF (0-2) Urine WBC 1-4 /HPF (0-4) Urine Squamous Epithelial Cells Occ /LPF Urine Bacteria 0 /HPF (0-FEW) Urine Mucus Slight /LPF White Blood Count 10.7 x10^3/uL (4.0-11.0) Red Blood Count 2.40 x10^6/uL (4.30-5.70) Hemoglobin 7.7 g/dL (13.0-17.5) Hematocrit 21.9 % (39.0-53.0) Mean Corpuscular Volume 91 fL (79-100) Mean Corpuscular Hemoglobin 32 pg (25-35) Mean Corpuscular Hemoglobin Concent 35 g/dL (31-37) Red Cell Distribution Width 15.9 % (11.5-14.5) Platelet Count 182 x10^3/uL (140-400) Neutrophils (%) (Auto) 76 % (31-73) Lymphocytes (%) (Auto) 7 % (24-48) Monocytes (%) (Auto) 13 % (0-9) Eosinophils (%) (Auto) 3 % (0-3) Basophils (%) (Auto) 1 % (0-3) Neutrophils # (Auto) 8.1 x10^3uL (1.8-7.7) Lymphocytes # (Auto) 0.8 x10^3/uL (1.0-4.8) Monocytes # (Auto) 1.4 x10^3/uL (0.0-1.1) Eosinophils # (Auto) 0.3 x10^3/uL (0.0-0.7) Basophils # (Auto) 0.1 x10^3/uL (0.0-0.2) Erythrocyte Sedimentation Rate 143 (0-15) Prothrombin Time 15.9 SEC (11.7-14.0) Prothromb Time International Ratio 1.4 (0.8-1.1) Activated Partial Thromboplast Time 31 SEC (24-38) Sodium Level 138 mmol/L (136-145) Potassium Level 4.6 mmol/L (3.5-5.1) Chloride Level 101 mmol/L (98-107) Carbon Dioxide Level 26 mmol/L (21-32) Anion Gap 11 (6-14) Blood Urea Nitrogen 81 mg/dL (8-26) Creatinine 2.9 mg/dL (0.7-1.3) Estimated GFR (Cockcroft-Gault) 22.1 BUN/Creatinine Ratio 28 (6-20) Glucose Level 215 mg/dL (70-99) Lactic Acid Level 0.9 mmol/L (0.4-2.0) Calcium Level 9.2 mg/dL (8.5-10.1) Total Bilirubin 0.4 mg/dL (0.2-1.0) Aspartate Amino Transf (AST/SGOT) 30 U/L (15-37) Alanine Aminotransferase (ALT/SGPT) 45 U/L (16-63) Alkaline Phosphatase 93 U/L (46-116) C-Reactive Protein, Quantitative 99.3 mg/L (0-3.3) Total Protein 7.4 g/dL (6.4-8.2) Albumin 2.8 g/dL (3.4-5.0) Albumin/Globulin Ratio 0.6 (1.0-1.7) Procalcitonin 0.56 ng/mL (0.00-0.10) Glucose (Fingerstick) 205 mg/dL (70-99) 247 mg/dL (70-99) Test 02/02/17 23:15 02/03/17 07:36 02/03/17 07:45 Lactic Acid Level 1.1 mmol/L (0.4-2.0) Glucose (Fingerstick) 253 mg/dL (70-99) White Blood Count 8.8 x10^3/uL (4.0-11.0) Red Blood Count 2.07 x10^6/uL (4.30-5.70) Hemoglobin 6.5 g/dL (13.0-17.5) Hematocrit 19.2 % (39.0-53.0) Mean Corpuscular Volume 93 fL (79-100) Mean Corpuscular Hemoglobin 32 pg (25-35) Mean Corpuscular Hemoglobin Concent 34 g/dL (31-37) Red Cell Distribution Width 15.9 % (11.5-14.5) Platelet Count 137 x10^3/uL (140-400) Neutrophils (%) (Auto) 88 % (31-73) Lymphocytes (%) (Auto) 5 % (24-48) Monocytes (%) (Auto) 7 % (0-9) Eosinophils (%) (Auto) 0 % (0-3) Basophils (%) (Auto) 0 % (0-3) Neutrophils # (Auto) 7.8 x10^3uL (1.8-7.7) Lymphocytes # (Auto) 0.4 x10^3/uL (1.0-4.8) Monocytes # (Auto) 0.6 x10^3/uL (0.0-1.1) Eosinophils # (Auto) 0.0 x10^3/uL (0.0-0.7) Basophils # (Auto) 0.0 x10^3/uL (0.0-0.2) Segmented Neutrophils % 94 % (35-66) Lymphocytes % 1 % (24-48) Monocytes % 5 % (0-10) Platelet Estimate Adequate (ADEQUATE) Hypochromasia Slight Sodium Level 139 mmol/L (136-145) Potassium Level 4.9 mmol/L (3.5-5.1) Chloride Level 102 mmol/L (98-107) Carbon Dioxide Level 25 mmol/L (21-32) Anion Gap 12 (6-14) Blood Urea Nitrogen 76 mg/dL (8-26) Creatinine 2.7 mg/dL (0.7-1.3) Estimated GFR (Cockcroft-Gault) 24.0 Glucose Level 255 mg/dL (70-99) Calcium Level 9.0 mg/dL (8.5-10.1) Troponin I Quantitative < 0.017 ng/mL (0.000-0.055) Assessment Assessment POD #1 left CR of ankle fracture dislocation with ex fix application and I&D of left ankle abscess Problems: Plan Plan of Care Continue POC. Pin care: clean pin sites twice daily with equal parts hydrogen peroxide and saline. Remove approximately 12 inches of iodoform packing from lateral ankle wound and cut off. DO NOT repack. NWB on LLE. LELAND LUU Feb 03, 2017 10:13
[2017-02-03] MEDS: ASPIRIN 325 MG TABLET PO SCH (10:14)
[2017-02-03] MEDS: PANTOPRAZOLE 40 MG TABLET.DR. PO SCH (10:14)
[2017-02-03] MEDS: GABAPENTIN 300 MG CAPSULE. PO SCH ×2 (10:18→22:05)
[2017-02-03] MEDS: CITALOPRAM 20 MG TABLET. PO SCH (10:18)
[2017-02-03] MEDS: SENNOSIDES/DOCUSATE 8.6/50MG TABLET. PO SCH (10:19)
[2017-02-03] MEDS: CHOLECALCIFEROL (VITAMIN D3) 1,000 UNIT TABLET PO SCH (10:19)
[2017-02-03] MEDS ORDERED: diphenhydrAMINE HCL 25 MG CAPSULE PO PRN (10:30)
[2017-02-03] MEDS: INSULIN ASPART 300 UNITS/3 ML INSULN.PEN SQ SCH ×6 (10:53→17:00)
--- NOTE | 2017-02-03 11:29 | PDOC2 ---
CONSULT Date of Consult Date of Consult DATE: 02/03/17 TIME: 11:21 Reason for Consult Reason for Consult: BRYCE Referring Physician Referring Physician: KUSHAL Identification/Chief Complaint Chief Complaint FOOT INFECTION AND BRYCE Problems: Source Source: Chart review History of Present Illness Reason for Visit: THIS IS A 62 YR OLD ADMITTED WITH LEFT FOOT DISLOCATION AND LEFT FOOT INFECTION. ORTHO EVAL AND TX ARE ONGOING AT THIS TIME. HX NOTABLE FOR WHAT WAS FELT TO BE ACUTE INTERSTITIAL NEPHRITIS FOR WHICH HAS BEEN ON HD. LEFT HERE AND WENT TO OP REHAB WHERE HE HAS BEEN RECEIVING HD. LAST HD ON WEDNESDAY. WEDNESDAY HD WAS SKIPPED DUE TO POSSIBLE RECOVERY. HE IS NOW ON ANTIBIOTICS HERE. INTERMITTENT CATH REVEALED A LARGE URINARY RESIDUAL. HE HAS A TUNNELED HD CATHETER ON THE RIGHT. LABS SHOWED A CR OF 2.7 AND ANEMIA WITH HGB OF 6.5. 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 ALERT BUT NOT ORIENTED Past Medical History Cardiovascular: HTN, Hyperlipidemia CENTRAL NERVOUS SYSTEM: CVA, Periperal neuropathy, Other GI: GERD Psych: Depression Renal/: Chronic renal insuff, Acute renal failure Endocrine: Diabetes Past Surgical History Past Surgical History: Other Family History Family History: Diabetes, Hypertension Social History No ALCOHOL: rare Drugs: None Lives: with Family Current Problem List Problem List Problems Medical Problems: (1) Dislocation of tibia, upper, lateral Status: Acute (2) Fractured fibula Status: Acute (3) Necrotizing fasciitis Status: Acute Current Medications Current Medications Current Medications Fentanyl Citrate (Fentanyl 2ml Vial) 50 mcg 1X ONCE IM Last administered on 15:59; Start 02/02/17 at 16:00; Stop 02/02/17 at 16:01; Status DC Vancomycin HCl (Vanco Per Pharmacy) 1 each PRN DAILY PRN MC SEE COMMENTS Last administered on 02/02/17 19:11; Start 02/02/17 at 19:06 Piperacillin Sod/ Tazobactam Sod 4.5 gm/Sodium Chloride 100 ml @ 200 mls/hr Q6HRS IV ; Start 02/03/17 at 00:00; Status UNV Vancomycin HCl 2 gm/Sodium Chloride 500 ml @ 250 mls/hr 1X ONCE IV Last administered on 02/02/17 18:13; Start 02/02/17 at 17:00; Stop 02/02/17 at 18:59 ; Status DC Piperacillin Sod/ Tazobactam Sod 4.5 gm/Sodium Chloride 100 ml @ 200 mls/hr 1X ONCE IV Last administered on 02/02/17 17:40; Start 02/02/17 at 17:00; Stop 02/02/17 at 17:29; Status DC Diphtheria/ Tetanus/Acell Pertussis (Boostrix) 0.5 ml ONCE ONCE VAX IM Last administered on 02/02/17 18:35; Start 02/02/17 at 18:30; Stop 02/02/17 at 18:31 ; Status DC Fentanyl Citrate (Fentanyl 2ml Vial) 75 mcg 1X ONCE IV Last administered on 18:33; Start 02/02/17 at 18:30; Stop 02/02/17 at 18:31; Status DC Labetalol HCl (Normodyne) 10 mg PRN Q2HR PRN IVP 160/100; Start 02/02/17 at 19: 00 Atorvastatin Calcium (Lipitor) 20 mg QHS PO ; Start 02/02/17 at 21:00 Vitamin D (Vitamin D3) 1,000 unit DAILY PO Last administered on 02/03/17 10:19 ; Start 02/03/17 at 09:00 Losartan Potassium (Cozaar) 50 mg DAILY PO Last administered on 02/03/17 10:19 ; Start 02/03/17 at 09:00 Metformin HCl (Glucophage) 500 mg BID PO ; Start 02/02/17 at 21:00; Stop at 21:00; Status DC Tamsulosin HCl (Flomax) 0.4 mg HS PO ; Start 02/02/17 at 21:00 Citalopram Hydrobromide (CeleXA) 40 mg DAILY PO Last administered on 02/03/17 10:18; Start 02/03/17 at 09:00 Pantoprazole Sodium (Protonix) 40 mg DAILYAC PO Last administered on 02/03/17 10:14; Start 02/03/17 at 07:30 Gabapentin (Neurontin) 300 mg BID PO Last administered on 02/03/17 10:18; Start 02/02/17 at 21:00 Insulin Aspart (NovoLOG) 23 units TIDAC SQ ; Start 02/03/17 at 07:30; Stop 02/03 at 09:53; Status DC Fentanyl Citrate (Fentanyl 2ml Vial) 50 mcg PRN Q2HR PRN IV pain; Start at 19:00 Oxycodone/ Acetaminophen (Percocet 5/325) 1 tab PRN QID PRN PO pain; Start at 19:00 Insulin Aspart (NovoLOG) 0-9 UNITS TIDWMEALS SQ Last administered on 02/03/17 10:54; Start 02/03/17 at 08:00 Dextrose (Dextrose 50%-Water Syringe) 12.5 gm PRN Q15MIN PRN IV SEE COMMENTS; Start 02/02/17 at 19:00; Stop 02/02/17 at 21:51; Status DC Sodium Chloride 1,000 ml @ 100 mls/hr 1X ONCE IV Last administered on 19:30; Start 02/02/17 at 19:00; Stop 02/03/17 at 04:59; Status DC Fentanyl Citrate (Fentanyl 2ml Vial) 25 mcg PRN Q5MIN PRN IV MILD PAIN; Start 02/02/17 at 19:15; Stop 02/03/17 at 19:14 Fentanyl Citrate (Fentanyl 2ml Vial) 50 mcg PRN Q5MIN PRN IV MODERATE PAIN; Start 02/02/17 at 19:15; Stop 02/03/17 at 19:14 Ringer's Solution 1,000 ml @ 30 mls/hr Q24H IV Last administered on 02/02/17 19:33; Start 02/02/17 at 19:05; Stop 02/03/17 at 07:04; Status DC Lidocaine HCl 2 ml PRN 1X PRN ID PRIOR TO IV START; Start 02/02/17 at 19:15; Stop 02/03/17 at 19:14 Prochlorperazine Edisylate (Compazine) 5 mg PACU PRN PRN IV NAUSEA, MRX1 Last administered on 02/02/17 21:40; Start 02/02/17 at 19:15; Stop 02/03/17 at 19:14 Vancomycin HCl 1.75 gm/Sodium Chloride 500 ml @ 250 mls/hr Q24H IV ; Start at 18:00; Stop 02/03/17 at 18:00; Status DC Vancomycin HCl 1 each 1X ONCE MC ; Start 02/04/17 at 17:30; Stop 02/04/17 at 17 :31; Status Cancel Piperacillin Sod/ Tazobactam Sod 3.375 gm/Sodium Chloride 50 ml @ 100 mls/hr Q6HRS IV Last administered on 02/03/17t 05:23; Start 02/03/17 at 00:00 Dexamethasone Sodium Phosphate (Decadron) 20 mg STK-MED ONCE .ROUTE ; Start at 19:30; Stop 02/02/17 at 19:31; Status DC Ondansetron HCl (Zofran) 4 mg STK-MED ONCE .ROUTE ; Start 02/02/17 at 19:30; Stop 02/02/17 at 19:31; Status DC Propofol 20 ml @ As Directed STK-MED ONCE IV ; Start 02/02/17 at 19:30; Stop at 19:31; Status DC Lidocaine HCl (Lidocaine Pf 2% Vial) 5 ml STK-MED ONCE .ROUTE ; Start 02/02/17 at 19:30; Stop 02/02/17 at 19:31; Status DC Desflurane (Suprane) 30 ml STK-MED ONCE IH ; Start 02/02/17 at 19:30; Stop 02/02 at 19:31; Status DC Fentanyl Citrate (Fentanyl 2ml Vial) 100 mcg STK-MED ONCE .ROUTE ; Start at 19:30; Stop 02/02/17 at 19:31; Status DC Bupivacaine HCl/ Epinephrine Bitart (Sensorcaine-Epi 0.25%-1:[id number] Mpf) 30 ml STK-MED ONCE .ROUTE ; Start 02/02/17 at 19:33; Stop 02/02/17 at 19:34; Status DC Ondansetron HCl (Zofran) 4 mg PRN Q8HRS PRN IV NAUSEA/VOMITING; Start 02/02/17 at 19:45; Stop 02/03/17 at 19:44 Fentanyl Citrate (Fentanyl 2ml Vial) 50 mcg PRN Q2HR PRN IV PAIN; Start at 19:45; Stop 02/03/17 at 19:44 Oxycodone HCl (Roxicodone) 5 mg PRN Q3HRS PRN PO MODERATE PAIN; Start 02/02/17 at 21:45 Fentanyl Citrate (Fentanyl 2ml Vial) 25 mcg PRN Q1HR PRN IV SEVERE PAIN; Start 02/02/17 at 21:45 Senna/Docusate Sodium (Senna Plus) 1 tab DAILY PO Last administered on 10:19; Start 02/03/17 at 09:00 Polyethylene Glycol (miraLAX PACKET) 17 gm PRN DAILY PRN PO CONSTIPATION; Start 02/02/17 at 21:45 Vancomycin HCl 1 gm/Sodium Chloride 250 ml @ 250 mls/hr Q12H IV ; Start at 06:00; Stop 02/03/17 at 06:59; Status Cancel Ondansetron HCl (Zofran) 4 mg PRN Q4HRS PRN IV NAUSEA/VOMITING; Start 02/02/17 at 21:45 Aspirin (Omkar Aspirin) 325 mg DAILYWBKFT PO Last administered on 02/03/17 10: 14; Start 02/03/17 at 08:00 Magnesium Hydroxide (Milk Of Magnesia) 2,400 mg 1X PRN PRN PO CONSTIPATION; Start 02/03/17 at 06:00; Stop 02/04/17 at 05:59 Bisacodyl (Dulcolax Supp) 10 mg 1X PRN PRN ME CONSTIPATION; Start 02/03/17 at 16:00; Stop 02/04/17 at 15:59 Acetaminophen/ Hydrocodone Bitart (Lortab 7.5/325) 1 tab PRN Q4HRS PRN PO MODERATE PAIN; Start 02/02/17 at 21:45 Acetaminophen/ Hydrocodone Bitart (Lortab 7.5/325) 2 tab PRN Q4HRS PRN PO SEVERE PAIN; Start 02/02/17 at 21:45 Dextrose (Dextrose 50%-Water Syringe) 12.5 gm PRN Q15MIN PRN IV SEE COMMENTS; Start 02/02/17 at 21:45 Prochlorperazine Edisylate (Compazine) 10 mg STK-MED ONCE .ROUTE ; Start at 21:58; Stop 02/02/17 at 21:59; Status DC Haloperidol Lactate (Haldol) 2.5 mg PRN Q6HRS PRN IVP MODERATE AGITATION Last administered on 02/03/17 05:47; Start 02/02/17 at 22:45 Haloperidol Lactate (Haldol) 5 mg PRN Q6HRS PRN IVP SEVERE AGITATION; Start at 22:45; Stop 02/03/17 at 09:53; Status DC Lorazepam (Ativan) 1 mg PRN Q4HRS PRN PO MODERATE ANXIETY / AGITATION; Start at 22:45 Lorazepam (Ativan) 2 mg PRN Q4HRS PRN IV SEVERE ANXIETY / AGITATION; Start at 22:45 Insulin Aspart (NovoLOG) 15 units TIDAC SQ Last administered on 02/03/17t 10:53 ; Start 02/03/17 at 10:00 Insulin Detemir (Levemir) 20 units QHS SQ ; Start 02/03/17 at 21:00 Diphenhydramine HCl (Benadryl) 25 mg 1X PRN PRN PO prior to blood transfusion; Start 02/03/17 at 10:30; Stop 02/04/17 at 10:29 Active Scripts Active Reported Humalog (Insulin Lispro) 100 Unit/1 Ml Cartridge 23 Unit SQ TIDAC Vitamin D3 (Cholecalciferol (Vitamin D3)) 1,000 Unit Tablet 1 Tab PO DAILY Nexium Capsule (Esomeprazole Magnesium) 40 Mg Capsule.dr 1 Cap PO DAILY Losartan Potassium 50 Mg Tablet 50 Mg PO DAILY Gabapentin 300 Mg Capsule 300 Mg PO BID Celebrex (Celecoxib) 200 Mg Capsule 200 Mg PO BID 30 Days Citalopram Hbr (Citalopram Hydrobromide) 40 Mg Tablet 40 Mg PO DAILY Lipitor (Atorvastatin Calcium) 20 Mg Tablet 20 Mg PO QHS Flomax (Tamsulosin Hcl) 0.4 Mg Cap.er.24h 0.4 Mg PO HS Metformin Hcl 500 Mg Tablet 500 Mg PO BID Plavix (Clopidogrel Bisulfate) 75 Mg Tablet 75 Mg PO DAILY Allergies Allergies: Coded Allergies: morphine (Verified Allergy, Intermediate, 01/05/17) causes hallucinations ROS Review of System UNABLE TO OBTAIN, NOT RELIABLE Physical Exam General: Alert, Oriented X3, Cooperative, No acute distress HEENT: Atraumatic, PERRLA Lungs: Clear to auscultation Heart: Regular rate, Normal S1 Abdomen: Normal bowel sounds, Soft, No tenderness Extremities: No clubbing Neuro: Normal speech, Other (NO ASYMMETRY) Psych/Mental Status: Other (CONFUSED) MUSCULOSKELETAL: Other (LEFT ANKLE WRAPPED WITH NOTABLE DRAINAGE) Vitals VITALS Vital Signs Date Time Temp Pulse Resp B/P (MAP) Pulse Ox O2 Delivery O2 Flow Rate FiO2 02/03/17 11:08 97.7 87 18 127/72 (90) 92 Room Air 97.7 02/03/17 02:00 2.0 Labs Labs Laboratory Tests Test 02/02/17 16:45 02/02/17 17:20 02/02/17 21:37 02/02/17 22:25 Urine Collection Type Unknown Urine Color Yellow Urine Clarity Clear Urine pH 5.0 Urine Specific Mcdonough 1.010 Urine Protein Negative mg/dL (NEG-TRACE) Urine Glucose (UA) Negative mg/dL (NEG) Urine Ketones (Stick) Negative mg/dL (NEG) Urine Blood Negative (NEG) Urine Nitrite Negative (NEG) Urine Bilirubin Negative (NEG) Urine Urobilinogen Dipstick 0.2 mg/dL (0.2 mg/dL) Urine Leukocyte Esterase Negative (NEG) Urine RBC Occ /HPF (0-2) Urine WBC 1-4 /HPF (0-4) Urine Squamous Epithelial Cells Occ /LPF Urine Bacteria 0 /HPF (0-FEW) Urine Mucus Slight /LPF White Blood Count 10.7 x10^3/uL (4.0-11.0) Red Blood Count 2.40 x10^6/uL (4.30-5.70) Hemoglobin 7.7 g/dL (13.0-17.5) Hematocrit 21.9 % (39.0-53.0) Mean Corpuscular Volume 91 fL (79-100) Mean Corpuscular Hemoglobin 32 pg (25-35) Mean Corpuscular Hemoglobin Concent 35 g/dL (31-37) Red Cell Distribution Width 15.9 % (11.5-14.5) Platelet Count 182 x10^3/uL (140-400) Neutrophils (%) (Auto) 76 % (31-73) Lymphocytes (%) (Auto) 7 % (24-48) Monocytes (%) (Auto) 13 % (0-9) Eosinophils (%) (Auto) 3 % (0-3) Basophils (%) (Auto) 1 % (0-3) Neutrophils # (Auto) 8.1 x10^3uL (1.8-7.7) Lymphocytes # (Auto) 0.8 x10^3/uL (1.0-4.8) Monocytes # (Auto) 1.4 x10^3/uL (0.0-1.1) Eosinophils # (Auto) 0.3 x10^3/uL (0.0-0.7) Basophils # (Auto) 0.1 x10^3/uL (0.0-0.2) Erythrocyte Sedimentation Rate 143 (0-15) Prothrombin Time 15.9 SEC (11.7-14.0) Prothromb Time International Ratio 1.4 (0.8-1.1) Activated Partial Thromboplast Time 31 SEC (24-38) Sodium Level 138 mmol/L (136-145) Potassium Level 4.6 mmol/L (3.5-5.1) Chloride Level 101 mmol/L (98-107) Carbon Dioxide Level 26 mmol/L (21-32) Anion Gap 11 (6-14) Blood Urea Nitrogen 81 mg/dL (8-26) Creatinine 2.9 mg/dL (0.7-1.3) Estimated GFR (Cockcroft-Gault) 22.1 BUN/Creatinine Ratio 28 (6-20) Glucose Level 215 mg/dL (70-99) Lactic Acid Level 0.9 mmol/L (0.4-2.0) Calcium Level 9.2 mg/dL (8.5-10.1) Total Bilirubin 0.4 mg/dL (0.2-1.0) Aspartate Amino Transf (AST/SGOT) 30 U/L (15-37) Alanine Aminotransferase (ALT/SGPT) 45 U/L (16-63) Alkaline Phosphatase 93 U/L (46-116) C-Reactive Protein, Quantitative 99.3 mg/L (0-3.3) Total Protein 7.4 g/dL (6.4-8.2) Albumin 2.8 g/dL (3.4-5.0) Albumin/Globulin Ratio 0.6 (1.0-1.7) Procalcitonin 0.56 ng/mL (0.00-0.10) Glucose (Fingerstick) 205 mg/dL (70-99) 247 mg/dL (70-99) Test 02/02/17 23:15 02/03/17 07:36 02/03/17 07:45 Lactic Acid Level 1.1 mmol/L (0.4-2.0) Glucose (Fingerstick) 253 mg/dL (70-99) White Blood Count 8.8 x10^3/uL (4.0-11.0) Red Blood Count 2.07 x10^6/uL (4.30-5.70) Hemoglobin 6.5 g/dL (13.0-17.5) Hematocrit 19.2 % (39.0-53.0) Mean Corpuscular Volume 93 fL (79-100) Mean Corpuscular Hemoglobin 32 pg (25-35) Mean Corpuscular Hemoglobin Concent 34 g/dL (31-37) Red Cell Distribution Width 15.9 % (11.5-14.5) Platelet Count 137 x10^3/uL (140-400) Neutrophils (%) (Auto) 88 % (31-73) Lymphocytes (%) (Auto) 5 % (24-48) Monocytes (%) (Auto) 7 % (0-9) Eosinophils (%) (Auto) 0 % (0-3) Basophils (%) (Auto) 0 % (0-3) Neutrophils # (Auto) 7.8 x10^3uL (1.8-7.7) Lymphocytes # (Auto) 0.4 x10^3/uL (1.0-4.8) Monocytes # (Auto) 0.6 x10^3/uL (0.0-1.1) Eosinophils # (Auto) 0.0 x10^3/uL (0.0-0.7) Basophils # (Auto) 0.0 x10^3/uL (0.0-0.2) Segmented Neutrophils % 94 % (35-66) Lymphocytes % 1 % (24-48) Monocytes % 5 % (0-10) Platelet Estimate Adequate (ADEQUATE) Hypochromasia Slight Sodium Level 139 mmol/L (136-145) Potassium Level 4.9 mmol/L (3.5-5.1) Chloride Level 102 mmol/L (98-107) Carbon Dioxide Level 25 mmol/L (21-32) Anion Gap 12 (6-14) Blood Urea Nitrogen 76 mg/dL (8-26) Creatinine 2.7 mg/dL (0.7-1.3) Estimated GFR (Cockcroft-Gault) 24.0 Glucose Level 255 mg/dL (70-99) Calcium Level 9.0 mg/dL (8.5-10.1) Troponin I Quantitative < 0.017 ng/mL (0.000-0.055) Laboratory Tests Test 02/02/17 16:45 02/02/17 17:20 02/02/17 21:37 02/02/17 22:25 Urine Collection Type Unknown Urine Color Yellow Urine Clarity Clear Urine pH 5.0 Urine Specific Mcdonough 1.010 Urine Protein Negative mg/dL (NEG-TRACE) Urine Glucose (UA) Negative mg/dL (NEG) Urine Ketones (Stick) Negative mg/dL (NEG) Urine Blood Negative (NEG) Urine Nitrite Negative (NEG) Urine Bilirubin Negative (NEG) Urine Urobilinogen Dipstick 0.2 mg/dL (0.2 mg/dL) Urine Leukocyte Esterase Negative (NEG) Urine RBC Occ /HPF (0-2) Urine WBC 1-4 /HPF (0-4) Urine Squamous Epithelial Cells Occ /LPF Urine Bacteria 0 /HPF (0-FEW) Urine Mucus Slight /LPF White Blood Count 10.7 x10^3/uL (4.0-11.0) Red Blood Count 2.40 x10^6/uL (4.30-5.70) Hemoglobin 7.7 g/dL (13.0-17.5) Hematocrit 21.9 % (39.0-53.0) Mean Corpuscular Volume 91 fL (79-100) Mean Corpuscular Hemoglobin 32 pg (25-35) Mean Corpuscular Hemoglobin Concent 35 g/dL (31-37) Red Cell Distribution Width 15.9 % (11.5-14.5) Platelet Count 182 x10^3/uL (140-400) Neutrophils (%) (Auto) 76 % (31-73) Lymphocytes (%) (Auto) 7 % (24-48) Monocytes (%) (Auto) 13 % (0-9) Eosinophils (%) (Auto) 3 % (0-3) Basophils (%) (Auto) 1 % (0-3) Neutrophils # (Auto) 8.1 x10^3uL (1.8-7.7) Lymphocytes # (Auto) 0.8 x10^3/uL (1.0-4.8) Monocytes # (Auto) 1.4 x10^3/uL (0.0-1.1) Eosinophils # (Auto) 0.3 x10^3/uL (0.0-0.7) Basophils # (Auto) 0.1 x10^3/uL (0.0-0.2) Erythrocyte Sedimentation Rate 143 (0-15) Prothrombin Time 15.9 SEC (11.7-14.0) Prothromb Time International Ratio 1.4 (0.8-1.1) Activated Partial Thromboplast Time 31 SEC (24-38) Sodium Level 138 mmol/L (136-145) Potassium Level 4.6 mmol/L (3.5-5.1) Chloride Level 101 mmol/L (98-107) Carbon Dioxide Level 26 mmol/L (21-32) Anion Gap 11 (6-14) Blood Urea Nitrogen 81 mg/dL (8-26) Creatinine 2.9 mg/dL (0.7-1.3) Estimated GFR (Cockcroft-Gault) 22.1 BUN/Creatinine Ratio 28 (6-20) Glucose Level 215 mg/dL (70-99) Lactic Acid Level 0.9 mmol/L (0.4-2.0) Calcium Level 9.2 mg/dL (8.5-10.1) Total Bilirubin 0.4 mg/dL (0.2-1.0) Aspartate Amino Transf (AST/SGOT) 30 U/L (15-37) Alanine Aminotransferase (ALT/SGPT) 45 U/L (16-63) Alkaline Phosphatase 93 U/L (46-116) C-Reactive Protein, Quantitative 99.3 mg/L (0-3.3) Total Protein 7.4 g/dL (6.4-8.2) Albumin 2.8 g/dL (3.4-5.0) Albumin/Globulin Ratio 0.6 (1.0-1.7) Procalcitonin 0.56 ng/mL (0.00-0.10) Glucose (Fingerstick) 205 mg/dL (70-99) 247 mg/dL (70-99) Test 02/02/17 23:15 02/03/17 07:36 02/03/17 07:45 Lactic Acid Level 1.1 mmol/L (0.4-2.0) Glucose (Fingerstick) 253 mg/dL (70-99) White Blood Count 8.8 x10^3/uL (4.0-11.0) Red Blood Count 2.07 x10^6/uL (4.30-5.70) Hemoglobin 6.5 g/dL (13.0-17.5) Hematocrit 19.2 % (39.0-53.0) Mean Corpuscular Volume 93 fL (79-100) Mean Corpuscular Hemoglobin 32 pg (25-35) Mean Corpuscular Hemoglobin Concent 34 g/dL (31-37) Red Cell Distribution Width 15.9 % (11.5-14.5) Platelet Count 137 x10^3/uL (140-400) Neutrophils (%) (Auto) 88 % (31-73) Lymphocytes (%) (Auto) 5 % (24-48) Monocytes (%) (Auto) 7 % (0-9) Eosinophils (%) (Auto) 0 % (0-3) Basophils (%) (Auto) 0 % (0-3) Neutrophils # (Auto) 7.8 x10^3uL (1.8-7.7) Lymphocytes # (Auto) 0.4 x10^3/uL (1.0-4.8) Monocytes # (Auto) 0.6 x10^3/uL (0.0-1.1) Eosinophils # (Auto) 0.0 x10^3/uL (0.0-0.7) Basophils # (Auto) 0.0 x10^3/uL (0.0-0.2) Segmented Neutrophils % 94 % (35-66) Lymphocytes % 1 % (24-48) Monocytes % 5 % (0-10) Platelet Estimate Adequate (ADEQUATE) Hypochromasia Slight Sodium Level 139 mmol/L (136-145) Potassium Level 4.9 mmol/L (3.5-5.1) Chloride Level 102 mmol/L (98-107) Carbon Dioxide Level 25 mmol/L (21-32) Anion Gap 12 (6-14) Blood Urea Nitrogen 76 mg/dL (8-26) Creatinine 2.7 mg/dL (0.7-1.3) Estimated GFR (Cockcroft-Gault) 24.0 Glucose Level 255 mg/dL (70-99) Calcium Level 9.0 mg/dL (8.5-10.1) Troponin I Quantitative < 0.017 ng/mL (0.000-0.055) Assessment/Plan Assessment/Plan IMP BRYCE-FELT TO BE SECONDARY TO INTERSTITIAL NEPHRITIS BRYCE-HAS BEEN ON HD BUT CLEARANCE IS IMPROVING LAST HD WAS WEDNESDAY AT OP REHAB. HD SKIPPED ON WEDNESDAY DUE TO IMPROVED CLEARANCE URINARY RETENTION-HAS ABOUT 500 MLS LEFT ANKLE FX LEFT FOOT CELLULITIS ANEMIA MET ENCEPHALOPATHY DM II HTN PLAN STOP LOSARTAN STOP CELEBREX STOP METFORMIN PLACE CORNELIUS TO DD PRBC AND ARANESP START ISOTONIC SALINE ANTIBIOTICS LABS IN AM WILL HOLD OFF ON HD FOR NOW LOOK FOR RENAL RECOVERY WOUND CARE MARSHAL SNOW MD Feb 03, 2017 11:29
[2017-02-03] MEDS: VANCOMYCIN PER PHARMACY MC PRN ×2 (12:09→12:11)
--- NOTE | 2017-02-03 13:07 | PDOC ---
PROGRESS NOTES Chief Complaint Chief Complaint 1. Left ankle fx, left ankle necrotizing fasciitis with oozing wound/bloody dc - s/p left ankle external fixation, I and D , wound vac 2. ESRD on HD, didnot get on Wednesday 3. DM 2 insulin req, uncontrolled 4.MOrbid Obesity BMI 46 5. Anemia, normocytic possible of CKD 6. Allergy/adverse effect to morphine (loopy) 7. HTN, Depression CVA, dyslipidemia - - all chronc stable AMS, metabolic encephalopathy, better today from rehab right heel wound with wound vac acute on chronic anemia, esrd, expected post op plan: fu with ortho, id, renal consider resume HD local wound care on misa leyva now dc ob if mental cont better change insulin to levemir 20u qhs, aspart 15u tid, ssi ptot dvt ppx 1u PRBC 02/03 History of Present Illness History of Present Illness no fever, chills, sob or chest pain confused yesterday, on ob, better today hyperglycemia has urine output, not HD on Wednesday with ok cr post op 02/02 for left ankle Hb 6.5 today Vitals Vitals Vital Signs Date Time Temp Pulse Resp B/P (MAP) Pulse Ox O2 Delivery O2 Flow Rate FiO2 02/03/17 11:08 97.7 87 18 127/72 (90) 92 Room Air 97.7 02/03/17 02:00 2.0 Physical Exam General: Alert, Oriented X3, Cooperative, No acute distress Heart: Regular rate, Normal S1 Lungs: Clear Abdomen: Normal bowel sounds, Soft, No tenderness Extremities: No clubbing Skin: No rashes, No breakdown, No significant lesion, Other (left ankle swelling and pain and limited ROM with palpable sift tissue sweliing, some crepitus appreciable,with external fixaiton. right ankle has wound vac on. ) Labs LABS Laboratory Tests Test 02/02/17 16:45 02/02/17 17:20 02/02/17 21:37 02/02/17 22:25 Urine Collection Type Unknown Urine Color Yellow Urine Clarity Clear Urine pH 5.0 Urine Specific Pringle 1.010 Urine Protein Negative mg/dL (NEG-TRACE) Urine Glucose (UA) Negative mg/dL (NEG) Urine Ketones (Stick) Negative mg/dL (NEG) Urine Blood Negative (NEG) Urine Nitrite Negative (NEG) Urine Bilirubin Negative (NEG) Urine Urobilinogen Dipstick 0.2 mg/dL (0.2 mg/dL) Urine Leukocyte Esterase Negative (NEG) Urine RBC Occ /HPF (0-2) Urine WBC 1-4 /HPF (0-4) Urine Squamous Epithelial Cells Occ /LPF Urine Bacteria 0 /HPF (0-FEW) Urine Mucus Slight /LPF White Blood Count 10.7 x10^3/uL (4.0-11.0) Red Blood Count 2.40 x10^6/uL (4.30-5.70) Hemoglobin 7.7 g/dL (13.0-17.5) Hematocrit 21.9 % (39.0-53.0) Mean Corpuscular Volume 91 fL (79-100) Mean Corpuscular Hemoglobin 32 pg (25-35) Mean Corpuscular Hemoglobin Concent 35 g/dL (31-37) Red Cell Distribution Width 15.9 % (11.5-14.5) Platelet Count 182 x10^3/uL (140-400) Neutrophils (%) (Auto) 76 % (31-73) Lymphocytes (%) (Auto) 7 % (24-48) Monocytes (%) (Auto) 13 % (0-9) Eosinophils (%) (Auto) 3 % (0-3) Basophils (%) (Auto) 1 % (0-3) Neutrophils # (Auto) 8.1 x10^3uL (1.8-7.7) Lymphocytes # (Auto) 0.8 x10^3/uL (1.0-4.8) Monocytes # (Auto) 1.4 x10^3/uL (0.0-1.1) Eosinophils # (Auto) 0.3 x10^3/uL (0.0-0.7) Basophils # (Auto) 0.1 x10^3/uL (0.0-0.2) Erythrocyte Sedimentation Rate 143 (0-15) Prothrombin Time 15.9 SEC (11.7-14.0) Prothromb Time International Ratio 1.4 (0.8-1.1) Activated Partial Thromboplast Time 31 SEC (24-38) Sodium Level 138 mmol/L (136-145) Potassium Level 4.6 mmol/L (3.5-5.1) Chloride Level 101 mmol/L (98-107) Carbon Dioxide Level 26 mmol/L (21-32) Anion Gap 11 (6-14) Blood Urea Nitrogen 81 mg/dL (8-26) Creatinine 2.9 mg/dL (0.7-1.3) Estimated GFR (Cockcroft-Gault) 22.1 BUN/Creatinine Ratio 28 (6-20) Glucose Level 215 mg/dL (70-99) Lactic Acid Level 0.9 mmol/L (0.4-2.0) Calcium Level 9.2 mg/dL (8.5-10.1) Total Bilirubin 0.4 mg/dL (0.2-1.0) Aspartate Amino Transf (AST/SGOT) 30 U/L (15-37) Alanine Aminotransferase (ALT/SGPT) 45 U/L (16-63) Alkaline Phosphatase 93 U/L (46-116) C-Reactive Protein, Quantitative 99.3 mg/L (0-3.3) Total Protein 7.4 g/dL (6.4-8.2) Albumin 2.8 g/dL (3.4-5.0) Albumin/Globulin Ratio 0.6 (1.0-1.7) Procalcitonin 0.56 ng/mL (0.00-0.10) Glucose (Fingerstick) 205 mg/dL (70-99) 247 mg/dL (70-99) Test 02/02/17 23:15 02/03/17 07:36 02/03/17 07:45 02/03/17 12:23 Lactic Acid Level 1.1 mmol/L (0.4-2.0) Glucose (Fingerstick) 253 mg/dL (70-99) 228 mg/dL (70-99) White Blood Count 8.8 x10^3/uL (4.0-11.0) Red Blood Count 2.07 x10^6/uL (4.30-5.70) Hemoglobin 6.5 g/dL (13.0-17.5) Hematocrit 19.2 % (39.0-53.0) Mean Corpuscular Volume 93 fL (79-100) Mean Corpuscular Hemoglobin 32 pg (25-35) Mean Corpuscular Hemoglobin Concent 34 g/dL (31-37) Red Cell Distribution Width 15.9 % (11.5-14.5) Platelet Count 137 x10^3/uL (140-400) Neutrophils (%) (Auto) 88 % (31-73) Lymphocytes (%) (Auto) 5 % (24-48) Monocytes (%) (Auto) 7 % (0-9) Eosinophils (%) (Auto) 0 % (0-3) Basophils (%) (Auto) 0 % (0-3) Neutrophils # (Auto) 7.8 x10^3uL (1.8-7.7) Lymphocytes # (Auto) 0.4 x10^3/uL (1.0-4.8) Monocytes # (Auto) 0.6 x10^3/uL (0.0-1.1) Eosinophils # (Auto) 0.0 x10^3/uL (0.0-0.7) Basophils # (Auto) 0.0 x10^3/uL (0.0-0.2) Segmented Neutrophils % 94 % (35-66) Lymphocytes % 1 % (24-48) Monocytes % 5 % (0-10) Platelet Estimate Adequate (ADEQUATE) Hypochromasia Slight Sodium Level 139 mmol/L (136-145) Potassium Level 4.9 mmol/L (3.5-5.1) Chloride Level 102 mmol/L (98-107) Carbon Dioxide Level 25 mmol/L (21-32) Anion Gap 12 (6-14) Blood Urea Nitrogen 76 mg/dL (8-26) Creatinine 2.7 mg/dL (0.7-1.3) Estimated GFR (Cockcroft-Gault) 24.0 Glucose Level 255 mg/dL (70-99) Calcium Level 9.0 mg/dL (8.5-10.1) Troponin I Quantitative < 0.017 ng/mL (0.000-0.055) Assessment and Plan Assessmemt and Plan Problems Medical Problems: (1) Dislocation of tibia, upper, lateral Status: Acute (2) Fractured fibula Status: Acute (3) Necrotizing fasciitis Status: Acute Problems: Comment Review of Relevant I have reviewed the following items lauryn (where applicable) has been applied. Labs Laboratory Tests Test 02/02/17 16:45 02/02/17 17:20 02/02/17 21:37 02/02/17 22:25 Urine Collection Type Unknown Urine Color Yellow Urine Clarity Clear Urine pH 5.0 Urine Specific Pringle 1.010 Urine Protein Negative mg/dL (NEG-TRACE) Urine Glucose (UA) Negative mg/dL (NEG) Urine Ketones (Stick) Negative mg/dL (NEG) Urine Blood Negative (NEG) Urine Nitrite Negative (NEG) Urine Bilirubin Negative (NEG) Urine Urobilinogen Dipstick 0.2 mg/dL (0.2 mg/dL) Urine Leukocyte Esterase Negative (NEG) Urine RBC Occ /HPF (0-2) Urine WBC 1-4 /HPF (0-4) Urine Squamous Epithelial Cells Occ /LPF Urine Bacteria 0 /HPF (0-FEW) Urine Mucus Slight /LPF White Blood Count 10.7 x10^3/uL (4.0-11.0) Red Blood Count 2.40 x10^6/uL (4.30-5.70) Hemoglobin 7.7 g/dL (13.0-17.5) Hematocrit 21.9 % (39.0-53.0) Mean Corpuscular Volume 91 fL (79-100) Mean Corpuscular Hemoglobin 32 pg (25-35) Mean Corpuscular Hemoglobin Concent 35 g/dL (31-37) Red Cell Distribution Width 15.9 % (11.5-14.5) Platelet Count 182 x10^3/uL (140-400) Neutrophils (%) (Auto) 76 % (31-73) Lymphocytes (%) (Auto) 7 % (24-48) Monocytes (%) (Auto) 13 % (0-9) Eosinophils (%) (Auto) 3 % (0-3) Basophils (%) (Auto) 1 % (0-3) Neutrophils # (Auto) 8.1 x10^3uL (1.8-7.7) Lymphocytes # (Auto) 0.8 x10^3/uL (1.0-4.8) Monocytes # (Auto) 1.4 x10^3/uL (0.0-1.1) Eosinophils # (Auto) 0.3 x10^3/uL (0.0-0.7) Basophils # (Auto) 0.1 x10^3/uL (0.0-0.2) Erythrocyte Sedimentation Rate 143 (0-15) Prothrombin Time 15.9 SEC (11.7-14.0) Prothromb Time International Ratio 1.4 (0.8-1.1) Activated Partial Thromboplast Time 31 SEC (24-38) Sodium Level 138 mmol/L (136-145) Potassium Level 4.6 mmol/L (3.5-5.1) Chloride Level 101 mmol/L (98-107) Carbon Dioxide Level 26 mmol/L (21-32) Anion Gap 11 (6-14) Blood Urea Nitrogen 81 mg/dL (8-26) Creatinine 2.9 mg/dL (0.7-1.3) Estimated GFR (Cockcroft-Gault) 22.1 BUN/Creatinine Ratio 28 (6-20) Glucose Level 215 mg/dL (70-99) Lactic Acid Level 0.9 mmol/L (0.4-2.0) Calcium Level 9.2 mg/dL (8.5-10.1) Total Bilirubin 0.4 mg/dL (0.2-1.0) Aspartate Amino Transf (AST/SGOT) 30 U/L (15-37) Alanine Aminotransferase (ALT/SGPT) 45 U/L (16-63) Alkaline Phosphatase 93 U/L (46-116) C-Reactive Protein, Quantitative 99.3 mg/L (0-3.3) Total Protein 7.4 g/dL (6.4-8.2) Albumin 2.8 g/dL (3.4-5.0) Albumin/Globulin Ratio 0.6 (1.0-1.7) Procalcitonin 0.56 ng/mL (0.00-0.10) Glucose (Fingerstick) 205 mg/dL (70-99) 247 mg/dL (70-99) Test 02/02/17 23:15 02/03/17 07:36 02/03/17 07:45 02/03/17 12:23 Lactic Acid Level 1.1 mmol/L (0.4-2.0) Glucose (Fingerstick) 253 mg/dL (70-99) 228 mg/dL (70-99) White Blood Count 8.8 x10^3/uL (4.0-11.0) Red Blood Count 2.07 x10^6/uL (4.30-5.70) Hemoglobin 6.5 g/dL (13.0-17.5) Hematocrit 19.2 % (39.0-53.0) Mean Corpuscular Volume 93 fL (79-100) Mean Corpuscular Hemoglobin 32 pg (25-35) Mean Corpuscular Hemoglobin Concent 34 g/dL (31-37) Red Cell Distribution Width 15.9 % (11.5-14.5) Platelet Count 137 x10^3/uL (140-400) Neutrophils (%) (Auto) 88 % (31-73) Lymphocytes (%) (Auto) 5 % (24-48) Monocytes (%) (Auto) 7 % (0-9) Eosinophils (%) (Auto) 0 % (0-3) Basophils (%) (Auto) 0 % (0-3) Neutrophils # (Auto) 7.8 x10^3uL (1.8-7.7) Lymphocytes # (Auto) 0.4 x10^3/uL (1.0-4.8) Monocytes # (Auto) 0.6 x10^3/uL (0.0-1.1) Eosinophils # (Auto) 0.0 x10^3/uL (0.0-0.7) Basophils # (Auto) 0.0 x10^3/uL (0.0-0.2) Segmented Neutrophils % 94 % (35-66) Lymphocytes % 1 % (24-48) Monocytes % 5 % (0-10) Platelet Estimate Adequate (ADEQUATE) Hypochromasia Slight Sodium Level 139 mmol/L (136-145) Potassium Level 4.9 mmol/L (3.5-5.1) Chloride Level 102 mmol/L (98-107) Carbon Dioxide Level 25 mmol/L (21-32) Anion Gap 12 (6-14) Blood Urea Nitrogen 76 mg/dL (8-26) Creatinine 2.7 mg/dL (0.7-1.3) Estimated GFR (Cockcroft-Gault) 24.0 Glucose Level 255 mg/dL (70-99) Calcium Level 9.0 mg/dL (8.5-10.1) Troponin I Quantitative < 0.017 ng/mL (0.000-0.055) Laboratory Tests Test 02/02/17 16:45 02/02/17 17:20 02/02/17 21:37 02/02/17 22:25 Urine Collection Type Unknown Urine Color Yellow Urine Clarity Clear Urine pH 5.0 Urine Specific Pringle 1.010 Urine Protein Negative mg/dL (NEG-TRACE) Urine Glucose (UA) Negative mg/dL (NEG) Urine Ketones (Stick) Negative mg/dL (NEG) Urine Blood Negative (NEG) Urine Nitrite Negative (NEG) Urine Bilirubin Negative (NEG) Urine Urobilinogen Dipstick 0.2 mg/dL (0.2 mg/dL) Urine Leukocyte Esterase Negative (NEG) Urine RBC Occ /HPF (0-2) Urine WBC 1-4 /HPF (0-4) Urine Squamous Epithelial Cells Occ /LPF Urine Bacteria 0 /HPF (0-FEW) Urine Mucus Slight /LPF White Blood Count 10.7 x10^3/uL (4.0-11.0) Red Blood Count 2.40 x10^6/uL (4.30-5.70) Hemoglobin 7.7 g/dL (13.0-17.5) Hematocrit 21.9 % (39.0-53.0) Mean Corpuscular Volume 91 fL (79-100) Mean Corpuscular Hemoglobin 32 pg (25-35) Mean Corpuscular Hemoglobin Concent 35 g/dL (31-37) Red Cell Distribution Width 15.9 % (11.5-14.5) Platelet Count 182 x10^3/uL (140-400) Neutrophils (%) (Auto) 76 % (31-73) Lymphocytes (%) (Auto) 7 % (24-48) Monocytes (%) (Auto) 13 % (0-9) Eosinophils (%) (Auto) 3 % (0-3) Basophils (%) (Auto) 1 % (0-3) Neutrophils # (Auto) 8.1 x10^3uL (1.8-7.7) Lymphocytes # (Auto) 0.8 x10^3/uL (1.0-4.8) Monocytes # (Auto) 1.4 x10^3/uL (0.0-1.1) Eosinophils # (Auto) 0.3 x10^3/uL (0.0-0.7) Basophils # (Auto) 0.1 x10^3/uL (0.0-0.2) Erythrocyte Sedimentation Rate 143 (0-15) Prothrombin Time 15.9 SEC (11.7-14.0) Prothromb Time International Ratio 1.4 (0.8-1.1) Activated Partial Thromboplast Time 31 SEC (24-38) Sodium Level 138 mmol/L (136-145) Potassium Level 4.6 mmol/L (3.5-5.1) Chloride Level 101 mmol/L (98-107) Carbon Dioxide Level 26 mmol/L (21-32) Anion Gap 11 (6-14) Blood Urea Nitrogen 81 mg/dL (8-26) Creatinine 2.9 mg/dL (0.7-1.3) Estimated GFR (Cockcroft-Gault) 22.1 BUN/Creatinine Ratio 28 (6-20) Glucose Level 215 mg/dL (70-99) Lactic Acid Level 0.9 mmol/L (0.4-2.0) Calcium Level 9.2 mg/dL (8.5-10.1) Total Bilirubin 0.4 mg/dL (0.2-1.0) Aspartate Amino Transf (AST/SGOT) 30 U/L (15-37) Alanine Aminotransferase (ALT/SGPT) 45 U/L (16-63) Alkaline Phosphatase 93 U/L (46-116) C-Reactive Protein, Quantitative 99.3 mg/L (0-3.3) Total Protein 7.4 g/dL (6.4-8.2) Albumin 2.8 g/dL (3.4-5.0) Albumin/Globulin Ratio 0.6 (1.0-1.7) Procalcitonin 0.56 ng/mL (0.00-0.10) Glucose (Fingerstick) 205 mg/dL (70-99) 247 mg/dL (70-99) Test 02/02/17 23:15 02/03/17 07:36 02/03/17 07:45 02/03/17 12:23 Lactic Acid Level 1.1 mmol/L (0.4-2.0) Glucose (Fingerstick) 253 mg/dL (70-99) 228 mg/dL (70-99) White Blood Count 8.8 x10^3/uL (4.0-11.0) Red Blood Count 2.07 x10^6/uL (4.30-5.70) Hemoglobin 6.5 g/dL (13.0-17.5) Hematocrit 19.2 % (39.0-53.0) Mean Corpuscular Volume 93 fL (79-100) Mean Corpuscular Hemoglobin 32 pg (25-35) Mean Corpuscular Hemoglobin Concent 34 g/dL (31-37) Red Cell Distribution Width 15.9 % (11.5-14.5) Platelet Count 137 x10^3/uL (140-400) Neutrophils (%) (Auto) 88 % (31-73) Lymphocytes (%) (Auto) 5 % (24-48) Monocytes (%) (Auto) 7 % (0-9) Eosinophils (%) (Auto) 0 % (0-3) Basophils (%) (Auto) 0 % (0-3) Neutrophils # (Auto) 7.8 x10^3uL (1.8-7.7) Lymphocytes # (Auto) 0.4 x10^3/uL (1.0-4.8) Monocytes # (Auto) 0.6 x10^3/uL (0.0-1.1) Eosinophils # (Auto) 0.0 x10^3/uL (0.0-0.7) Basophils # (Auto) 0.0 x10^3/uL (0.0-0.2) Segmented Neutrophils % 94 % (35-66) Lymphocytes % 1 % (24-48) Monocytes % 5 % (0-10) Platelet Estimate Adequate (ADEQUATE) Hypochromasia Slight Sodium Level 139 mmol/L (136-145) Potassium Level 4.9 mmol/L (3.5-5.1) Chloride Level 102 mmol/L (98-107) Carbon Dioxide Level 25 mmol/L (21-32) Anion Gap 12 (6-14) Blood Urea Nitrogen 76 mg/dL (8-26) Creatinine 2.7 mg/dL (0.7-1.3) Estimated GFR (Cockcroft-Gault) 24.0 Glucose Level 255 mg/dL (70-99) Calcium Level 9.0 mg/dL (8.5-10.1) Troponin I Quantitative < 0.017 ng/mL (0.000-0.055) Microbiology 02/02/17 Gram Stain - Final, Complete Medications Current Medications Fentanyl Citrate (Fentanyl 2ml Vial) 50 mcg 1X ONCE IM Last administered on t 15:59; Start 02/02/17 at 16:00; Stop 02/02/17 at 16:01; Status DC Vancomycin HCl (Vanco Per Pharmacy) 1 each PRN DAILY PRN MC SEE COMMENTS Last administered on 02/03/17 12:11; Start 02/02/17 at 19:06 Piperacillin Sod/ Tazobactam Sod 4.5 gm/Sodium Chloride 100 ml @ 200 mls/hr Q6HRS IV ; Start 02/03/17 at 00:00; Status UNV Vancomycin HCl 2 gm/Sodium Chloride 500 ml @ 250 mls/hr 1X ONCE IV Last administered on 02/02/17 18:13; Start 02/02/17 at 17:00; Stop 02/02/17 at 18:59 ; Status DC Piperacillin Sod/ Tazobactam Sod 4.5 gm/Sodium Chloride 100 ml @ 200 mls/hr 1X ONCE IV Last administered on 02/02/17 17:40; Start 02/02/17 at 17:00; Stop 02/02/17 at 17:29; Status DC Diphtheria/ Tetanus/Acell Pertussis (Boostrix) 0.5 ml ONCE ONCE VAX IM Last administered on 02/02/17 18:35; Start 02/02/17 at 18:30; Stop 02/02/17 at 18:31 ; Status DC Fentanyl Citrate (Fentanyl 2ml Vial) 75 mcg 1X ONCE IV Last administered on 18:33; Start 02/02/17 at 18:30; Stop 02/02/17 at 18:31; Status DC Labetalol HCl (Normodyne) 10 mg PRN Q2HR PRN IVP 160/100; Start 02/02/17 at 19: 00 Atorvastatin Calcium (Lipitor) 20 mg QHS PO ; Start 02/02/17 at 21:00 Vitamin D (Vitamin D3) 1,000 unit DAILY PO Last administered on 02/03/17 10:19 ; Start 02/03/17 at 09:00 Losartan Potassium (Cozaar) 50 mg DAILY PO Last administered on 02/03/17 10:19 ; Start 02/03/17 at 09:00; Stop 02/03/17 at 11:41; Status DC Metformin HCl (Glucophage) 500 mg BID PO ; Start 02/02/17 at 21:00; Stop at 21:00; Status DC Tamsulosin HCl (Flomax) 0.4 mg HS PO ; Start 02/02/17 at 21:00 Citalopram Hydrobromide (CeleXA) 40 mg DAILY PO Last administered on 02/03/17 10:18; Start 02/03/17 at 09:00 Pantoprazole Sodium (Protonix) 40 mg DAILYAC PO Last administered on 02/03/17 10:14; Start 02/03/17 at 07:30 Gabapentin (Neurontin) 300 mg BID PO Last administered on 02/03/17 10:18; Start 02/02/17 at 21:00 Insulin Aspart (NovoLOG) 23 units TIDAC SQ ; Start 02/03/17 at 07:30; Stop 02/03 at 09:53; Status DC Fentanyl Citrate (Fentanyl 2ml Vial) 50 mcg PRN Q2HR PRN IV pain; Start at 19:00 Oxycodone/ Acetaminophen (Percocet 5/325) 1 tab PRN QID PRN PO pain; Start at 19:00 Insulin Aspart (NovoLOG) 0-9 UNITS TIDWMEALS SQ Last administered on 02/03/17 10:54; Start 02/03/17 at 08:00 Dextrose (Dextrose 50%-Water Syringe) 12.5 gm PRN Q15MIN PRN IV SEE COMMENTS; Start 02/02/17 at 19:00; Stop 02/02/17 at 21:51; Status DC Sodium Chloride 1,000 ml @ 100 mls/hr 1X ONCE IV Last administered on 19:30; Start 02/02/17 at 19:00; Stop 02/03/17 at 04:59; Status DC Fentanyl Citrate (Fentanyl 2ml Vial) 25 mcg PRN Q5MIN PRN IV MILD PAIN; Start 02/02/17 at 19:15; Stop 02/03/17 at 19:14 Fentanyl Citrate (Fentanyl 2ml Vial) 50 mcg PRN Q5MIN PRN IV MODERATE PAIN; Start 02/02/17 at 19:15; Stop 02/03/17 at 19:14 Ringer's Solution 1,000 ml @ 30 mls/hr Q24H IV Last administered on 02/02/17 19:33; Start 02/02/17 at 19:05; Stop 02/03/17 at 07:04; Status DC Lidocaine HCl 2 ml PRN 1X PRN ID PRIOR TO IV START; Start 02/02/17 at 19:15; Stop 02/03/17 at 19:14 Prochlorperazine Edisylate (Compazine) 5 mg PACU PRN PRN IV NAUSEA, MRX1 Last administered on 02/02/17t 21:40; Start 02/02/17 at 19:15; Stop 02/03/17 at 19:14 Vancomycin HCl 1.75 gm/Sodium Chloride 500 ml @ 250 mls/hr Q24H IV ; Start at 18:00 Vancomycin HCl 1 each 1X ONCE MC ; Start 02/04/17 at 17:30; Stop 02/04/17 at 17 :31 Piperacillin Sod/ Tazobactam Sod 3.375 gm/Sodium Chloride 50 ml @ 100 mls/hr Q6HRS IV Last administered on 02/03/17t 05:23; Start 02/03/17 at 00:00 Dexamethasone Sodium Phosphate (Decadron) 20 mg STK-MED ONCE .ROUTE ; Start at 19:30; Stop 02/02/17 at 19:31; Status DC Ondansetron HCl (Zofran) 4 mg STK-MED ONCE .ROUTE ; Start 02/02/17 at 19:30; Stop 02/02/17 at 19:31; Status DC Propofol 20 ml @ As Directed STK-MED ONCE IV ; Start 02/02/17 at 19:30; Stop at 19:31; Status DC Lidocaine HCl (Lidocaine Pf 2% Vial) 5 ml STK-MED ONCE .ROUTE ; Start 02/02/17 at 19:30; Stop 02/02/17 at 19:31; Status DC Desflurane (Suprane) 30 ml STK-MED ONCE IH ; Start 02/02/17 at 19:30; Stop 02/02 at 19:31; Status DC Fentanyl Citrate (Fentanyl 2ml Vial) 100 mcg STK-MED ONCE .ROUTE ; Start at 19:30; Stop 02/02/17 at 19:31; Status DC Bupivacaine HCl/ Epinephrine Bitart (Sensorcaine-Epi 0.25%-1:[id number] Mpf) 30 ml STK-MED ONCE .ROUTE ; Start 02/02/17 at 19:33; Stop 02/02/17 at 19:34; Status DC Ondansetron HCl (Zofran) 4 mg PRN Q8HRS PRN IV NAUSEA/VOMITING; Start 02/02/17 at 19:45; Stop 02/03/17 at 19:44 Fentanyl Citrate (Fentanyl 2ml Vial) 50 mcg PRN Q2HR PRN IV PAIN; Start at 19:45; Stop 02/03/17 at 19:44 Oxycodone HCl (Roxicodone) 5 mg PRN Q3HRS PRN PO MODERATE PAIN; Start 02/02/17 at 21:45 Fentanyl Citrate (Fentanyl 2ml Vial) 25 mcg PRN Q1HR PRN IV SEVERE PAIN; Start 02/02/17 at 21:45 Senna/Docusate Sodium (Senna Plus) 1 tab DAILY PO Last administered on 10:19; Start 02/03/17 at 09:00 Polyethylene Glycol (miraLAX PACKET) 17 gm PRN DAILY PRN PO CONSTIPATION; Start 02/02/17 at 21:45 Vancomycin HCl 1 gm/Sodium Chloride 250 ml @ 250 mls/hr Q12H IV ; Start at 06:00; Stop 02/03/17 at 06:59; Status Cancel Ondansetron HCl (Zofran) 4 mg PRN Q4HRS PRN IV NAUSEA/VOMITING; Start 02/02/17 at 21:45 Aspirin (Omkar Aspirin) 325 mg [id number] PO Last administered on 02/03/17 10: 14; Start 02/03/17 at 08:00 Magnesium Hydroxide (Milk Of Magnesia) 2,400 mg 1X PRN PRN PO CONSTIPATION; Start 02/03/17 at 06:00; Stop 02/04/17 at 05:59 Bisacodyl (Dulcolax Supp) 10 mg 1X PRN PRN NC CONSTIPATION; Start 02/03/17 at 16:00; Stop 02/04/17 at 15:59 Acetaminophen/ Hydrocodone Bitart (Lortab 7.5/325) 1 tab PRN Q4HRS PRN PO MODERATE PAIN; Start 02/02/17 at 21:45 Acetaminophen/ Hydrocodone Bitart (Lortab 7.5/325) 2 tab PRN Q4HRS PRN PO SEVERE PAIN; Start 02/02/17 at 21:45 Dextrose (Dextrose 50%-Water Syringe) 12.5 gm PRN Q15MIN PRN IV SEE COMMENTS; Start 02/02/17 at 21:45 Prochlorperazine Edisylate (Compazine) 10 mg STK-MED ONCE .ROUTE ; Start at 21:58; Stop 02/02/17 at 21:59; Status DC Haloperidol Lactate (Haldol) 2.5 mg PRN Q6HRS PRN IVP MODERATE AGITATION Last administered on 02/03/17 05:47; Start 02/02/17 at 22:45 Haloperidol Lactate (Haldol) 5 mg PRN Q6HRS PRN IVP SEVERE AGITATION; Start at 22:45; Stop 02/03/17 at 09:53; Status DC Lorazepam (Ativan) 1 mg PRN Q4HRS PRN PO MODERATE ANXIETY / AGITATION; Start at 22:45 Lorazepam (Ativan) 2 mg PRN Q4HRS PRN IV SEVERE ANXIETY / AGITATION; Start at 22:45; Stop 02/03/17 at 12:58; Status DC Insulin Aspart (NovoLOG) 15 units TIDAC SQ Last administered on 02/03/17 10:53 ; Start 02/03/17 at 10:00 Insulin Detemir (Levemir) 20 units QHS SQ ; Start 02/03/17 at 21:00 Diphenhydramine HCl (Benadryl) 25 mg 1X PRN PRN PO prior to blood transfusion; Start 02/03/17 at 10:30; Stop 02/04/17 at 10:29 Darbepoetin Orbert (Aranesp) 60 mcg WEEKLYHS SQ ; Start 02/03/17 at 21:00 Sodium Chloride 1,000 ml @ 75 mls/hr [id number] IV ; Start 02/03/17 at 11:30 Active Scripts Active Reported Humalog (Insulin Lispro) 100 Unit/1 Ml Cartridge 23 Unit SQ TIDAC Vitamin D3 (Cholecalciferol (Vitamin D3)) 1,000 Unit Tablet 1 Tab PO DAILY Nexium Capsule (Esomeprazole Magnesium) 40 Mg Capsule.dr 1 Cap PO DAILY Losartan Potassium 50 Mg Tablet 50 Mg PO DAILY Gabapentin 300 Mg Capsule 300 Mg PO BID Celebrex (Celecoxib) 200 Mg Capsule 200 Mg PO BID 30 Days Citalopram Hbr (Citalopram Hydrobromide) 40 Mg Tablet 40 Mg PO DAILY Lipitor (Atorvastatin Calcium) 20 Mg Tablet 20 Mg PO QHS Flomax (Tamsulosin Hcl) 0.4 Mg Cap.er.24h 0.4 Mg PO HS Metformin Hcl 500 Mg Tablet 500 Mg PO BID Plavix (Clopidogrel Bisulfate) 75 Mg Tablet 75 Mg PO DAILY Vitals/I & O Vital Sign - Last 24 Hours 02/02/17 02/02/17 02/02/17 02/02/17 13:36 14:09 16:09 16:39 Temp 99.4 99.4 Pulse 92 94 96 91 Resp 22 18 18 22 B/P (MAP) 112/62 (79) 167/75 (105) 137/69 (91) 112/60 (77) Pulse Ox 97 94 96 96 O2 Delivery Room Air Room Air Room Air Room Air 02/02/17 02/02/17 02/02/17 02/02/17 17:24 17:39 18:00 18:30 Pulse 97 94 64 82 Resp 20 18 18 18 B/P (MAP) 171/75 (107) 153/72 (99) 147/82 (103) 115/64 (81) Pulse Ox 95 94 95 95 O2 Delivery Room Air Room Air Room Air Room Air 02/02/17 02/02/17 02/02/17 02/02/17 19:00 19:30 21:34 21:49 Temp 99.4 99.0 99.4 99.0 Pulse 82 82 82 82 Resp 16 18 15 B/P (MAP) 148/75 (99) 161/77 (105) 161/77 143/75 Pulse Ox 97 96 96 92 O2 Delivery Room Air Room Air 02/02/17 02/02/17 02/02/17 02/02/17 22:15 22:30 23:30 23:55 Temp 99.6 99.6 99.3 97.8 99.6 99.6 99.3 97.8 Pulse 95 99 91 91 Resp 18 19 19 B/P (MAP) 137/76 (96) 130/83 (99) 134/73 (93) 136/72 (93) Pulse Ox 96 93 96 95 O2 Delivery Nasal Cannula Nasal Cannula Nasal Cannula Nasal Cannula O2 Flow Rate 2.0 2.0 2.0 2.0 02/03/17 02/03/17 02/03/17 02/03/17 00:25 00:25 01:00 01:21 Temp 98.1 97.9 98.1 97.9 Pulse 91 88 Resp 16 22 20 12 B/P (MAP) 119/75 (90) 110/48 (68) Pulse Ox 96 98 97 97 O2 Delivery Nasal Cannula Nasal Cannula O2 Flow Rate 2.0 2.0 2.0 02/03/17 02/03/17 02/03/17 02/03/17 02:00 03:00 04:30 05:00 Temp 98.1 98.1 Pulse 78 76 85 Resp 18 16 B/P (MAP) 104/51 (68) Pulse Ox 92 91 95 O2 Delivery Nasal Cannula Room Air Room Air Room Air O2 Flow Rate 2.0 02/03/17 02/03/17 02/03/17 02/03/17 06:00 07:00 10:19 11:08 Temp 97.5 97.7 97.5 97.7 Pulse 83 83 87 Resp 18 18 B/P (MAP) 134/77 (96) 134/77 127/72 (90) Pulse Ox 92 92 O2 Delivery Room Air Room Air Room Air Intake and Output 02/02/17 02/02/17 02/03/17 15:00 23:00 07:00 Intake Total 620 ml 120 ml Output Total 200 ml 300 ml Balance 420 ml -180 ml MELISSA CHO MD Feb 03, 2017 13:07
--- NOTE | 2017-02-03 13:27 | CONS ---
DATE OF CONSULTATION: 02/03/2017 REQUESTING PHYSICIAN: Jayde Perez M.D. REASON FOR CONSULTATION: Left ankle abscess, question necrotizing fasciitis. HISTORY OF PRESENT ILLNESS: This is a 62-year-old . DICTATION ENDS HERE. ROLANDO RUIZ MD DR: RONALDO/annika JOB#: [id number] / [id number]
[2017-02-03] MEDS ORDERED: BISACODYL 10 MG SUPP.RECT. PR PRN (16:00)
[2017-02-03] MEDS ORDERED: VANCOMYCIN 1.75 GM in IV NORMAL SALINE 500ML BAG 500 ML IV SCH (18:00)
[2017-02-03] MEDS: IV NORMAL SALINE 1000ML BAG 1,000 ML IV SCH (18:04)
--- NOTE | 2017-02-03 19:10 | CONS ---
DATE OF CONSULTATION: DATE OF ADMISSION: 02/02/2017 DATE OF CONSULTATION: 02/03/2017 REQUESTING PHYSICIAN: Dr. Jayde Perez. REASON FOR CONSULTATION: Ankle infection. HISTORY OF PRESENT ILLNESS: This is a 62-year-old gentleman with multiple medical problems who had been a month ago here with right calcaneal infection, was getting antibiotics and wound VAC and the patient returned with left ankle infection, bimalleolar fracture and question necrotizing fasciitis. The patient was put on vancomycin and Zosyn and I&D of the ankle done as well as external fixation done yesterday by Dr. Van. The patient is alert, awake. The patient denies any nausea, vomiting, diarrhea. Denies any falls, denies any trauma. Denies any chest pain, shortness of breath, abdominal pain. Denies any fever even. PAST MEDICAL HISTORY: Positive for end-stage renal disease on hemodialysis. The patient also has a right calcaneal infection, hypertension, hyperlipidemia, CVA, peripheral neuropathy, diabetes, depression. SOCIAL HISTORY: Negative for smoking, alcohol, illicit drug use. ALLERGIES: LISTED ALLERGIC TO MORPHINE. CURRENT MEDICATIONS: Reviewed. REVIEW OF SYSTEMS: As per HPI, all other systems reviewed and are negative. PHYSICAL EXAMINATION: GENERAL: Alert, oriented gentleman, not in distress. VITAL SIGNS: Stable, afebrile. HEENT: NAD. NECK: Supple, no JVP, no lymphadenopathy. LUNGS: Clear. HEART: S1, S2 regular. ABDOMEN: Benign. EXTREMITIES: There is no edema or cyanosis. The patient does have right calcaneal wound VAC in place and the left leg with external fixation and a dressing in place, the post-surgical dressing was not opened. NEUROLOGIC: The patient is neurologically intact. LABORATORY DATA: White count is 8.8, hemoglobin 6.5, platelets are 137,000. Sed rate is 143, BUN 76, creatinine 2.7. Lactic acid was normal. Cultures are pending. X-rays reviewed. IMPRESSION: 1. Left ankle abscess with question necrotizing fasciitis status post I&D. 2. Bimalleolar left ankle fracture status post external fixation. 3. Right calcaneal wound with a wound VAC in place. 4. End-stage renal disease. 5. Diabetes. 6. Hypertension. 7. Obesity. PLAN: Recommend continue vancomycin and Zosyn, supportive care. We will check the culture and adjust and will continue to follow. Thank you very much, Dr. Perez for giving me the opportunity to participate in this patient's care. ROLANDO RUIZ MD DR: RONALDO/annika JOB#: [id number] / [id number]
--- NOTE | 2017-02-03 19:48 | RAD ---
Exam: AP portable chest History: PICC line placement. Comparison: February 02, 2017. Findings: Patient is rotated. Cardiac silhouette is probably at the upper limits of normal for size given positioning. A right internal jugular dialysis catheter is unchanged. No pneumothorax or pleural effusion is identified. No failure is evident. There has been placement of left-sided PICC line with tip projecting at the confluence of brachiocephalic veins and superior vena cava. Impression: 1. Left-sided PICC line tip projects at the confluence of brachiocephalic veins and superior vena cava. Electronically signed by: Dipesh Jara MD (02/03/2017 7:45 PM) [id number]
[2017-02-03] MEDS ORDERED: DARBEPOETIN ALFA 60 MCG/0.3 ML DISP.SYRIN. SQ SCH (21:00)
[2017-02-03] MEDS: TAMSULOSIN 0.4 MG CAP.ER.24H. PO SCH (22:05)
[2017-02-03] MEDS: ATORVASTATIN CALCIUM 20 MG TABLET PO SCH (22:05)
[2017-02-03] MEDS: INSULIN DETEMIR 300 UNITS/3 ML INSULN.PEN. SQ SCH (22:55)
[2017-02-04] VITALS (10 sets, daily range): BP systolic 92–122; BP diastolic 48–75
[2017-02-04] MEDS: PIPERACILLIN/TAZOBACTAM 3.375 GM in IV NORMAL SALINE 50ML 50 ML IV SCH ×4 (00:47→17:33)
[2017-02-04] MEDS: IV NORMAL SALINE 1000ML BAG 1,000 ML IV SCH ×2 (00:50→15:26)
[2017-02-04 06:34] LABS: BASO # 0.1 x10^3/uL (0.0-0.2); BASO % 1 % (0-3); EOS % 3 % (0-3); LYMPH # 0.9 x10^3/uL (1.0-4.8); LYMPH % 11 % (24-48); MEAN CORPUSCULAR HEMOGLOBIN 32 pg (25-35); MEAN CORPUSCULAR HGB CONC 34 g/dL (31-37); MEAN CORPUSCULAR VOLUME 94 fL (79-100); MONO % 9 % (0-9); NEUT % 76 % (31-73); PLATELET COUNT 145 x10^3/uL (140-400); RED BLOOD COUNT 2.22 x10^6/uL (4.30-5.70); RED CELL DISTRIBUTION WIDTH 16.2 % (11.5-14.5); WHITE BLOOD COUNT 8.2 x10^3/uL (4.0-11.0)
[2017-02-04 06:38] LABS: HEMATOCRIT 20.8 % (39.0-53.0)
[2017-02-04 06:54] LABS: CREATININE 2.4 mg/dL (0.7-1.3); GFR 27.5; POTASSIUM 4.4 mmol/L (3.5-5.1)
[2017-02-04] MEDS: PANTOPRAZOLE 40 MG TABLET.DR. PO SCH (09:08)
[2017-02-04] MEDS: ASPIRIN 325 MG TABLET PO SCH (09:08)
[2017-02-04] MEDS: CHOLECALCIFEROL (VITAMIN D3) 1,000 UNIT TABLET PO SCH (09:08)
[2017-02-04] MEDS: GABAPENTIN 300 MG CAPSULE. PO SCH ×2 (09:08→21:48)
[2017-02-04] MEDS: CITALOPRAM 20 MG TABLET. PO SCH (09:09)
[2017-02-04] MEDS: SENNOSIDES/DOCUSATE 8.6/50MG TABLET. PO SCH ×3 (09:09→21:49)
--- NOTE | 2017-02-04 09:14 | PDOC ---
Infectious Disease Note Subjective Subjective feeling good ROS ROS GEN: Denies fevers, chills, sweats HEENT: Denies blurred vision, sore throat CV: Denies chest pain RESP: Denies shortness of air, cough GI: Denies n/v/d NEURO: Denies confusion, dizziness Vital Sign Vital Signs Vital Signs Date Time Temp Pulse Resp B/P (MAP) Pulse Ox O2 Delivery O2 Flow Rate FiO2 02/04/17 07:26 97.7 82 18 120/62 (81) 93 97.7 02/03/17 23:00 Room Air Physical Exam PHYSICAL EXAM GENERAL: NAD, Alert HEENT: PERRL, OC/OP NECK: Supple, no JVD, no LN LUNGS: Clear HEART: S1S2, no gallop, no murmur ABD: Soft, NT, no organomegaly, no rebound EXT: No edema, no cyanosis [employer]: Alert, 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, no focal neurologic deficit SKIN: No rash, rt leg with ext fixator, rt foot with wound vac IV: ok Labs Lab Laboratory Tests Test 02/03/17 12:23 02/03/17 16:34 02/03/17 21:44 02/04/17 06:15 Glucose (Fingerstick) 228 mg/dL (70-99) 147 mg/dL (70-99) 187 mg/dL (70-99) White Blood Count 8.2 x10^3/uL (4.0-11.0) Red Blood Count 2.22 x10^6/uL (4.30-5.70) Hemoglobin 7.0 g/dL (13.0-17.5) Hematocrit 20.8 % (39.0-53.0) Mean Corpuscular Volume 94 fL (79-100) Mean Corpuscular Hemoglobin 32 pg (25-35) Mean Corpuscular Hemoglobin Concent 34 g/dL (31-37) Red Cell Distribution Width 16.2 % (11.5-14.5) Platelet Count 145 x10^3/uL (140-400) Neutrophils (%) (Auto) 76 % (31-73) Lymphocytes (%) (Auto) 11 % (24-48) Monocytes (%) (Auto) 9 % (0-9) Eosinophils (%) (Auto) 3 % (0-3) Basophils (%) (Auto) 1 % (0-3) Neutrophils # (Auto) 6.2 x10^3uL (1.8-7.7) Lymphocytes # (Auto) 0.9 x10^3/uL (1.0-4.8) Monocytes # (Auto) 0.7 x10^3/uL (0.0-1.1) Eosinophils # (Auto) 0.3 x10^3/uL (0.0-0.7) Basophils # (Auto) 0.1 x10^3/uL (0.0-0.2) Sodium Level 143 mmol/L (136-145) Potassium Level 4.4 mmol/L (3.5-5.1) Chloride Level 107 mmol/L (98-107) Carbon Dioxide Level 26 mmol/L (21-32) Anion Gap 10 (6-14) Blood Urea Nitrogen 71 mg/dL (8-26) Creatinine 2.4 mg/dL (0.7-1.3) Estimated GFR (Cockcroft-Gault) 27.5 Glucose Level 186 mg/dL (70-99) Calcium Level 9.0 mg/dL (8.5-10.1) Test 02/04/17 07:32 Glucose (Fingerstick) 172 mg/dL (70-99) Micro G neg zhang on G stain Objective Assessment Left ankle abscess s/p I and D Bi malleolar ankle fracture s/p ext fixation Rt calcaneal wound with vac in place ESRD on HD Plan Plan of Care smith I and D done supportive care ROLANDO RUIZ MD Feb 04, 2017 09:14
[2017-02-04] MEDS ORDERED: MAGNESIUM HYDROXIDE 2,400 MG/30 ML ORAL.SUSP. PO PRN (09:15)
[2017-02-04] MEDS: INSULIN ASPART 300 UNITS/3 ML INSULN.PEN SQ SCH ×6 (09:15→17:35)
[2017-02-04] MEDS: fentaNYL 25MCG/HR PATCH 1 PATCH PATCH.TD72 TD SCH (10:36)
[2017-02-04] MEDS: DOCUSATE SODIUM 100 MG CAPSULE. PO SCH ×2 (10:37→21:49)
--- NOTE | 2017-02-04 10:45 | PDOC ---
Renal-Progress Notes Subjective Notes Notes STABLE History of Present Illness Hx of present illness NO CHANGE Vitals Vitals Vital Signs Date Time Temp Pulse Resp B/P (MAP) Pulse Ox O2 Delivery O2 Flow Rate FiO2 02/04/17 10:36 12 93 Room Air 02/04/17 10:15 97.7 77 106/66 97.7 Weight Weight [ ] I.O. Intake and Output Intake and Output 02/04/17 07:00 Intake Total 2940 ml Output Total 1900 ml Balance 1040 ml Intake Oral 1690 ml IV Total 950 ml Blood Product IV Normal Saline Flush 300 ml Output Urine Total 1900 ml Labs Labs Laboratory Tests Test 02/03/17 12:23 02/03/17 16:34 02/03/17 21:44 02/04/17 06:15 Glucose (Fingerstick) 228 mg/dL (70-99) 147 mg/dL (70-99) 187 mg/dL (70-99) White Blood Count 8.2 x10^3/uL (4.0-11.0) Red Blood Count 2.22 x10^6/uL (4.30-5.70) Hemoglobin 7.0 g/dL (13.0-17.5) Hematocrit 20.8 % (39.0-53.0) Mean Corpuscular Volume 94 fL (79-100) Mean Corpuscular Hemoglobin 32 pg (25-35) Mean Corpuscular Hemoglobin Concent 34 g/dL (31-37) Red Cell Distribution Width 16.2 % (11.5-14.5) Platelet Count 145 x10^3/uL (140-400) Neutrophils (%) (Auto) 76 % (31-73) Lymphocytes (%) (Auto) 11 % (24-48) Monocytes (%) (Auto) 9 % (0-9) Eosinophils (%) (Auto) 3 % (0-3) Basophils (%) (Auto) 1 % (0-3) Neutrophils # (Auto) 6.2 x10^3uL (1.8-7.7) Lymphocytes # (Auto) 0.9 x10^3/uL (1.0-4.8) Monocytes # (Auto) 0.7 x10^3/uL (0.0-1.1) Eosinophils # (Auto) 0.3 x10^3/uL (0.0-0.7) Basophils # (Auto) 0.1 x10^3/uL (0.0-0.2) Sodium Level 143 mmol/L (136-145) Potassium Level 4.4 mmol/L (3.5-5.1) Chloride Level 107 mmol/L (98-107) Carbon Dioxide Level 26 mmol/L (21-32) Anion Gap 10 (6-14) Blood Urea Nitrogen 71 mg/dL (8-26) Creatinine 2.4 mg/dL (0.7-1.3) Estimated GFR (Cockcroft-Gault) 27.5 Glucose Level 186 mg/dL (70-99) Calcium Level 9.0 mg/dL (8.5-10.1) Test 02/04/17 07:32 Glucose (Fingerstick) 172 mg/dL (70-99) Micro Micro Microbiology 02/02/17 Blood Culture - Preliminary, Resulted NO GROWTH AFTER 1 DAY 02/02/17 Gram Stain - Final, Complete Review of Systems Constitutional: yes: alert, oriented Ears/Nose/Throat: Yes: no symptom reported Eyes: Yes: no symptom reported Cardiovascular: Yes no symptom reported Musculoskeletal: Yes: joint pain Skin: Yes no symptom reported Endocrine: Yes: no symptom reported Physical Exam General Appearance: no apparent distress Skin: warm Respiratory: bilateral CTA Heart: S1S2, RRR Abdomen: soft, bowel sounds present Genitourinary: bladder flat Extremities: pulses present Neurology: alert, oriented Assessment Assessment IMP BRYCE-MOST LIKELY FROM IN-RESOLVING URINARY RETENTION LEFT ANKLE DISLOCATION AND INFECTION ANEMIA PLAN IVF'S PRBC TODAY CONT TO HOLD OFF DIALYSIS LABS IN AM D/W ATTENDING MARSHAL SNOW MD Feb 04, 2017 10:44
--- NOTE | 2017-02-04 12:45 | PDOC ---
PROGRESS NOTES Chief Complaint Chief Complaint 1. Left ankle fx, left ankle necrotizing fasciitis with oozing wound/bloody dc - s/p left ankle external fixation, I and D 2. ESRD on HD, didnot get on Wednesday 3. DM 2 insulin req, uncontrolled 4.MOrbid Obesity BMI 46 5. Anemia, normocytic possible of CKD 6. Allergy/adverse effect to morphine (loopy) 7. HTN, Depression CVA, dyslipidemia - - all chronc stable AMS, metabolic encephalopathy,post op from rehab right heel wound with wound vac, chronic acute on chronic anemia, esrd, expected post op constipation plan: fu with ortho, id, renal HD held since this Wednesday local wound care on arnulfomisa alvarez now, wound cx + pseudomonas dc ob if mental cont better change insulin to levemir 20u qhs, aspart 15u tid, ssi ptot dvt ppx 1u PRBC 02/03, 02/04 add stool softner History of Present Illness History of Present Illness no fever, chills, sob or chest pain confused post ob, on ob x1 ,, off 02/03 hyperglycemia better has urine output, not HD on Wednesday with ok cr post op 02/02 for left ankle Hb 6.5 to 7 post 1 U PRBC still constipation Vitals Vitals Vital Signs Date Time Temp Pulse Resp B/P (MAP) Pulse Ox O2 Delivery O2 Flow Rate FiO2 02/04/17 12:27 97.6 75 18 107/73 97.6 02/04/17 10:43 95 02/04/17 10:36 Room Air Physical Exam General: Alert, Oriented X3, Cooperative, No acute distress Heart: Regular rate, Normal S1 Lungs: Clear Abdomen: Normal bowel sounds, Soft, No tenderness Extremities: No clubbing Skin: No rashes, No breakdown, No significant lesion, Other (left ankle swelling and pain and limited ROM with palpable sift tissue sweliing, some crepitus appreciable,with external fixaiton. right ankle has wound vac on. ) Labs LABS Laboratory Tests Test 02/03/17 16:34 02/03/17 21:44 02/04/17 06:15 02/04/17 07:32 Glucose (Fingerstick) 147 mg/dL (70-99) 187 mg/dL (70-99) 172 mg/dL (70-99) White Blood Count 8.2 x10^3/uL (4.0-11.0) Red Blood Count 2.22 x10^6/uL (4.30-5.70) Hemoglobin 7.0 g/dL (13.0-17.5) Hematocrit 20.8 % (39.0-53.0) Mean Corpuscular Volume 94 fL (79-100) Mean Corpuscular Hemoglobin 32 pg (25-35) Mean Corpuscular Hemoglobin Concent 34 g/dL (31-37) Red Cell Distribution Width 16.2 % (11.5-14.5) Platelet Count 145 x10^3/uL (140-400) Neutrophils (%) (Auto) 76 % (31-73) Lymphocytes (%) (Auto) 11 % (24-48) Monocytes (%) (Auto) 9 % (0-9) Eosinophils (%) (Auto) 3 % (0-3) Basophils (%) (Auto) 1 % (0-3) Neutrophils # (Auto) 6.2 x10^3uL (1.8-7.7) Lymphocytes # (Auto) 0.9 x10^3/uL (1.0-4.8) Monocytes # (Auto) 0.7 x10^3/uL (0.0-1.1) Eosinophils # (Auto) 0.3 x10^3/uL (0.0-0.7) Basophils # (Auto) 0.1 x10^3/uL (0.0-0.2) Sodium Level 143 mmol/L (136-145) Potassium Level 4.4 mmol/L (3.5-5.1) Chloride Level 107 mmol/L (98-107) Carbon Dioxide Level 26 mmol/L (21-32) Anion Gap 10 (6-14) Blood Urea Nitrogen 71 mg/dL (8-26) Creatinine 2.4 mg/dL (0.7-1.3) Estimated GFR (Cockcroft-Gault) 27.5 Glucose Level 186 mg/dL (70-99) Calcium Level 9.0 mg/dL (8.5-10.1) Test 02/04/17 11:20 Glucose (Fingerstick) 226 mg/dL (70-99) Assessment and Plan Assessmemt and Plan Problems Medical Problems: (1) Dislocation of tibia, upper, lateral Status: Acute (2) Fractured fibula Status: Acute (3) Necrotizing fasciitis Status: Acute Problems: Comment Review of Relevant I have reviewed the following items lauryn (where applicable) has been applied. Labs Laboratory Tests Test 02/02/17 16:45 02/02/17 17:20 02/02/17 21:37 02/02/17 22:25 Urine Collection Type Unknown Urine Color Yellow Urine Clarity Clear Urine pH 5.0 Urine Specific [place] 1.010 Urine Protein Negative mg/dL (NEG-TRACE) Urine Glucose (UA) Negative mg/dL (NEG) Urine Ketones (Stick) Negative mg/dL (NEG) Urine Blood Negative (NEG) Urine Nitrite Negative (NEG) Urine Bilirubin Negative (NEG) Urine Urobilinogen Dipstick 0.2 mg/dL (0.2 mg/dL) Urine Leukocyte Esterase Negative (NEG) Urine RBC Occ /HPF (0-2) Urine WBC 1-4 /HPF (0-4) Urine Squamous Epithelial Cells Occ /LPF Urine Bacteria 0 /HPF (0-FEW) Urine Mucus Slight /LPF White Blood Count 10.7 x10^3/uL (4.0-11.0) Red Blood Count 2.40 x10^6/uL (4.30-5.70) Hemoglobin 7.7 g/dL (13.0-17.5) Hematocrit 21.9 % (39.0-53.0) Mean Corpuscular Volume 91 fL (79-100) Mean Corpuscular Hemoglobin 32 pg (25-35) Mean Corpuscular Hemoglobin Concent 35 g/dL (31-37) Red Cell Distribution Width 15.9 % (11.5-14.5) Platelet Count 182 x10^3/uL (140-400) Neutrophils (%) (Auto) 76 % (31-73) Lymphocytes (%) (Auto) 7 % (24-48) Monocytes (%) (Auto) 13 % (0-9) Eosinophils (%) (Auto) 3 % (0-3) Basophils (%) (Auto) 1 % (0-3) Neutrophils # (Auto) 8.1 x10^3uL (1.8-7.7) Lymphocytes # (Auto) 0.8 x10^3/uL (1.0-4.8) Monocytes # (Auto) 1.4 x10^3/uL (0.0-1.1) Eosinophils # (Auto) 0.3 x10^3/uL (0.0-0.7) Basophils # (Auto) 0.1 x10^3/uL (0.0-0.2) Erythrocyte Sedimentation Rate 143 (0-15) Prothrombin Time 15.9 SEC (11.7-14.0) Prothromb Time International Ratio 1.4 (0.8-1.1) Activated Partial Thromboplast Time 31 SEC (24-38) Sodium Level 138 mmol/L (136-145) Potassium Level 4.6 mmol/L (3.5-5.1) Chloride Level 101 mmol/L (98-107) Carbon Dioxide Level 26 mmol/L (21-32) Anion Gap 11 (6-14) Blood Urea Nitrogen 81 mg/dL (8-26) Creatinine 2.9 mg/dL (0.7-1.3) Estimated GFR (Cockcroft-Gault) 22.1 BUN/Creatinine Ratio 28 (6-20) Glucose Level 215 mg/dL (70-99) Lactic Acid Level 0.9 mmol/L (0.4-2.0) Calcium Level 9.2 mg/dL (8.5-10.1) Total Bilirubin 0.4 mg/dL (0.2-1.0) Aspartate Amino Transf (AST/SGOT) 30 U/L (15-37) Alanine Aminotransferase (ALT/SGPT) 45 U/L (16-63) Alkaline Phosphatase 93 U/L (46-116) C-Reactive Protein, Quantitative 99.3 mg/L (0-3.3) Total Protein 7.4 g/dL (6.4-8.2) Albumin 2.8 g/dL (3.4-5.0) Albumin/Globulin Ratio 0.6 (1.0-1.7) Procalcitonin 0.56 ng/mL (0.00-0.10) Glucose (Fingerstick) 205 mg/dL (70-99) 247 mg/dL (70-99) Test 02/02/17 23:15 02/03/17 06:00 02/03/17 07:36 02/03/17 07:45 Lactic Acid Level 1.1 mmol/L (0.4-2.0) Nasal Screen MRSA (PCR) Negative (Negative) Glucose (Fingerstick) 253 mg/dL (70-99) White Blood Count 8.8 x10^3/uL (4.0-11.0) Red Blood Count 2.07 x10^6/uL (4.30-5.70) Hemoglobin 6.5 g/dL (13.0-17.5) Hematocrit 19.2 % (39.0-53.0) Mean Corpuscular Volume 93 fL (79-100) Mean Corpuscular Hemoglobin 32 pg (25-35) Mean Corpuscular Hemoglobin Concent 34 g/dL (31-37) Red Cell Distribution Width 15.9 % (11.5-14.5) Platelet Count 137 x10^3/uL (140-400) Neutrophils (%) (Auto) 88 % (31-73) Lymphocytes (%) (Auto) 5 % (24-48) Monocytes (%) (Auto) 7 % (0-9) Eosinophils (%) (Auto) 0 % (0-3) Basophils (%) (Auto) 0 % (0-3) Neutrophils # (Auto) 7.8 x10^3uL (1.8-7.7) Lymphocytes # (Auto) 0.4 x10^3/uL (1.0-4.8) Monocytes # (Auto) 0.6 x10^3/uL (0.0-1.1) Eosinophils # (Auto) 0.0 x10^3/uL (0.0-0.7) Basophils # (Auto) 0.0 x10^3/uL (0.0-0.2) Segmented Neutrophils % 94 % (35-66) Lymphocytes % 1 % (24-48) Monocytes % 5 % (0-10) Platelet Estimate Adequate (ADEQUATE) Hypochromasia Slight Sodium Level 139 mmol/L (136-145) Potassium Level 4.9 mmol/L (3.5-5.1) Chloride Level 102 mmol/L (98-107) Carbon Dioxide Level 25 mmol/L (21-32) Anion Gap 12 (6-14) Blood Urea Nitrogen 76 mg/dL (8-26) Creatinine 2.7 mg/dL (0.7-1.3) Estimated GFR (Cockcroft-Gault) 24.0 Glucose Level 255 mg/dL (70-99) Calcium Level 9.0 mg/dL (8.5-10.1) Troponin I Quantitative < 0.017 ng/mL (0.000-0.055) Test 02/03/17 12:23 02/03/17 16:34 02/03/17 21:44 02/04/17 06:15 Glucose (Fingerstick) 228 mg/dL (70-99) 147 mg/dL (70-99) 187 mg/dL (70-99) White Blood Count 8.2 x10^3/uL (4.0-11.0) Red Blood Count 2.22 x10^6/uL (4.30-5.70) Hemoglobin 7.0 g/dL (13.0-17.5) Hematocrit 20.8 % (39.0-53.0) Mean Corpuscular Volume 94 fL (79-100) Mean Corpuscular Hemoglobin 32 pg (25-35) Mean Corpuscular Hemoglobin Concent 34 g/dL (31-37) Red Cell Distribution Width 16.2 % (11.5-14.5) Platelet Count 145 x10^3/uL (140-400) Neutrophils (%) (Auto) 76 % (31-73) Lymphocytes (%) (Auto) 11 % (24-48) Monocytes (%) (Auto) 9 % (0-9) Eosinophils (%) (Auto) 3 % (0-3) Basophils (%) (Auto) 1 % (0-3) Neutrophils # (Auto) 6.2 x10^3uL (1.8-7.7) Lymphocytes # (Auto) 0.9 x10^3/uL (1.0-4.8) Monocytes # (Auto) 0.7 x10^3/uL (0.0-1.1) Eosinophils # (Auto) 0.3 x10^3/uL (0.0-0.7) Basophils # (Auto) 0.1 x10^3/uL (0.0-0.2) Sodium Level 143 mmol/L (136-145) Potassium Level 4.4 mmol/L (3.5-5.1) Chloride Level 107 mmol/L (98-107) Carbon Dioxide Level 26 mmol/L (21-32) Anion Gap 10 (6-14) Blood Urea Nitrogen 71 mg/dL (8-26) Creatinine 2.4 mg/dL (0.7-1.3) Estimated GFR (Cockcroft-Gault) 27.5 Glucose Level 186 mg/dL (70-99) Calcium Level 9.0 mg/dL (8.5-10.1) Test 02/04/17 07:32 02/04/17 11:20 Glucose (Fingerstick) 172 mg/dL (70-99) 226 mg/dL (70-99) Laboratory Tests Test 02/03/17 16:34 02/03/17 21:44 02/04/17 06:15 02/04/17 07:32 Glucose (Fingerstick) 147 mg/dL (70-99) 187 mg/dL (70-99) 172 mg/dL (70-99) White Blood Count 8.2 x10^3/uL (4.0-11.0) Red Blood Count 2.22 x10^6/uL (4.30-5.70) Hemoglobin 7.0 g/dL (13.0-17.5) Hematocrit 20.8 % (39.0-53.0) Mean Corpuscular Volume 94 fL (79-100) Mean Corpuscular Hemoglobin 32 pg (25-35) Mean Corpuscular Hemoglobin Concent 34 g/dL (31-37) Red Cell Distribution Width 16.2 % (11.5-14.5) Platelet Count 145 x10^3/uL (140-400) Neutrophils (%) (Auto) 76 % (31-73) Lymphocytes (%) (Auto) 11 % (24-48) Monocytes (%) (Auto) 9 % (0-9) Eosinophils (%) (Auto) 3 % (0-3) Basophils (%) (Auto) 1 % (0-3) Neutrophils # (Auto) 6.2 x10^3uL (1.8-7.7) Lymphocytes # (Auto) 0.9 x10^3/uL (1.0-4.8) Monocytes # (Auto) 0.7 x10^3/uL (0.0-1.1) Eosinophils # (Auto) 0.3 x10^3/uL (0.0-0.7) Basophils # (Auto) 0.1 x10^3/uL (0.0-0.2) Sodium Level 143 mmol/L (136-145) Potassium Level 4.4 mmol/L (3.5-5.1) Chloride Level 107 mmol/L (98-107) Carbon Dioxide Level 26 mmol/L (21-32) Anion Gap 10 (6-14) Blood Urea Nitrogen 71 mg/dL (8-26) Creatinine 2.4 mg/dL (0.7-1.3) Estimated GFR (Cockcroft-Gault) 27.5 Glucose Level 186 mg/dL (70-99) Calcium Level 9.0 mg/dL (8.5-10.1) Test 02/04/17 11:20 Glucose (Fingerstick) 226 mg/dL (70-99) Microbiology 02/02/17 Blood Culture - Preliminary, Resulted NO GROWTH AFTER 1 DAY 02/02/17 Gram Stain - Final, Complete Medications Current Medications Fentanyl Citrate (Fentanyl 2ml Vial) 50 mcg 1X ONCE IM Last administered on 15:59; Start 02/02/17 at 16:00; Stop 02/02/17 at 16:01; Status DC Vancomycin HCl (Vanco Per Pharmacy) 1 each PRN DAILY PRN MC SEE COMMENTS Last administered on 02/03/17 12:11; Start 02/02/17 at 19:06 Piperacillin Sod/ Tazobactam Sod 4.5 gm/Sodium Chloride 100 ml @ 200 mls/hr Q6HRS IV ; Start 02/03/17 at 00:00; Status UNV Vancomycin HCl 2 gm/Sodium Chloride 500 ml @ 250 mls/hr 1X ONCE IV Last administered on 02/02/17 18:13; Start 02/02/17 at 17:00; Stop 02/02/17 at 18:59 ; Status DC Piperacillin Sod/ Tazobactam Sod 4.5 gm/Sodium Chloride 100 ml @ 200 mls/hr 1X ONCE IV Last administered on 02/02/17 17:40; Start 02/02/17 at 17:00; Stop 02/02/17 at 17:29; Status DC Diphtheria/ Tetanus/Acell Pertussis (Boostrix) 0.5 ml ONCE ONCE VAX IM Last administered on 02/02/17 18:35; Start 02/02/17 at 18:30; Stop 02/02/17 at 18:31 ; Status DC Fentanyl Citrate (Fentanyl 2ml Vial) 75 mcg 1X ONCE IV Last administered on 18:33; Start 02/02/17 at 18:30; Stop 02/02/17 at 18:31; Status DC Labetalol HCl (Normodyne) 10 mg PRN Q2HR PRN IVP 160/100; Start 02/02/17 at 19: 00 Atorvastatin Calcium (Lipitor) 20 mg QHS PO Last administered on 02/03/17 22: 05; Start 02/02/17 at 21:00 Vitamin D (Vitamin D3) 1,000 unit DAILY PO Last administered on 02/04/17 09:08 ; Start 02/03/17 at 09:00 Losartan Potassium (Cozaar) 50 mg DAILY PO Last administered on 02/03/17 10:19 ; Start 02/03/17 at 09:00; Stop 02/03/17 at 11:41; Status DC Metformin HCl (Glucophage) 500 mg BID PO ; Start 02/02/17 at 21:00; Stop at 21:00; Status DC Tamsulosin HCl (Flomax) 0.4 mg HS PO Last administered on 02/03/17 22:05; Start 02/02/17 at 21:00 Citalopram Hydrobromide (CeleXA) 40 mg DAILY PO Last administered on 02/04/17 09:09; Start 02/03/17 at 09:00 Pantoprazole Sodium (Protonix) 40 mg DAILYAC PO Last administered on 02/04/17 09:08; Start 02/03/17 at 07:30 Gabapentin (Neurontin) 300 mg BID PO Last administered on 02/04/17 09:08; Start 02/02/17 at 21:00 Insulin Aspart (NovoLOG) 23 units TIDAC SQ ; Start 02/03/17 at 07:30; Stop 02/03 at 09:53; Status DC Fentanyl Citrate (Fentanyl 2ml Vial) 50 mcg PRN Q2HR PRN IV pain; Start at 19:00 Oxycodone/ Acetaminophen (Percocet 5/325) 1 tab PRN QID PRN PO pain; Start at 19:00 Insulin Aspart (NovoLOG) 0-9 UNITS TIDWMEALS SQ Last administered on 02/04/17 09:16; Start 02/03/17 at 08:00 Dextrose (Dextrose 50%-Water Syringe) 12.5 gm PRN Q15MIN PRN IV SEE COMMENTS; Start 02/02/17 at 19:00; Stop 02/02/17 at 21:51; Status DC Sodium Chloride 1,000 ml @ 100 mls/hr 1X ONCE IV Last administered on 19:30; Start 02/02/17 at 19:00; Stop 02/03/17 at 04:59; Status DC Fentanyl Citrate (Fentanyl 2ml Vial) 25 mcg PRN Q5MIN PRN IV MILD PAIN; Start 02/02/17 at 19:15; Stop 02/03/17 at 19:14; Status DC Fentanyl Citrate (Fentanyl 2ml Vial) 50 mcg PRN Q5MIN PRN IV MODERATE PAIN; Start 02/02/17 at 19:15; Stop 02/03/17 at 19:14; Status DC Ringer's Solution 1,000 ml @ 30 mls/hr Q24H IV Last administered on 02/02/17 19:33; Start 02/02/17 at 19:05; Stop 02/03/17 at 07:04; Status DC Lidocaine HCl 2 ml PRN 1X PRN ID PRIOR TO IV START; Start 02/02/17 at 19:15; Stop 02/03/17 at 19:14; Status DC Prochlorperazine Edisylate (Compazine) 5 mg PACU PRN PRN IV NAUSEA, MRX1 Last administered on 02/02/17 21:40; Start 02/02/17 at 19:15; Stop 02/03/17 at 19:14 ; Status DC Vancomycin HCl 1.75 gm/Sodium Chloride 500 ml @ 250 mls/hr Q24H IV Last administered on 02/03/17 18:06; Start 02/03/17 at 18:00 Vancomycin HCl 1 each 1X ONCE MC ; Start 02/04/17 at 17:30; Stop 02/04/17 at 17 :31 Piperacillin Sod/ Tazobactam Sod 3.375 gm/Sodium Chloride 50 ml @ 100 mls/hr Q6HRS IV Last administered on 02/04/17 06:00; Start 02/03/17 at 00:00 Dexamethasone Sodium Phosphate (Decadron) 20 mg STK-MED ONCE .ROUTE ; Start at 19:30; Stop 02/02/17 at 19:31; Status DC Ondansetron HCl (Zofran) 4 mg STK-MED ONCE .ROUTE ; Start 02/02/17 at 19:30; Stop 02/02/17 at 19:31; Status DC Propofol 20 ml @ As Directed STK-MED ONCE IV ; Start 02/02/17 at 19:30; Stop at 19:31; Status DC Lidocaine HCl (Lidocaine Pf 2% Vial) 5 ml STK-MED ONCE .ROUTE ; Start 02/02/17 at 19:30; Stop 02/02/17 at 19:31; Status DC Desflurane (Suprane) 30 ml STK-MED ONCE IH ; Start 02/02/17 at 19:30; Stop 02/02 at 19:31; Status DC Fentanyl Citrate (Fentanyl 2ml Vial) 100 mcg STK-MED ONCE .ROUTE ; Start at 19:30; Stop 02/02/17 at 19:31; Status DC Bupivacaine HCl/ Epinephrine Bitart (Sensorcaine-Epi 0.25%-1:211409 Mpf) 30 ml STK-MED ONCE .ROUTE ; Start 02/02/17 at 19:33; Stop 02/02/17 at 19:34; Status DC Ondansetron HCl (Zofran) 4 mg PRN Q8HRS PRN IV NAUSEA/VOMITING; Start 02/02/17 at 19:45; Stop 02/03/17 at 19:44; Status DC Fentanyl Citrate (Fentanyl 2ml Vial) 50 mcg PRN Q2HR PRN IV PAIN; Start at 19:45; Stop 02/03/17 at 19:44; Status DC Oxycodone HCl (Roxicodone) 5 mg PRN Q3HRS PRN PO MODERATE PAIN; Start 02/02/17 at 21:45 Fentanyl Citrate (Fentanyl 2ml Vial) 25 mcg PRN Q1HR PRN IV SEVERE PAIN; Start 02/02/17 at 21:45 Senna/Docusate Sodium (Senna Plus) 1 tab DAILY PO Last administered on t 09:09; Start 02/03/17 at 09:00 Polyethylene Glycol (miraLAX PACKET) 17 gm PRN DAILY PRN PO CONSTIPATION Last administered on 02/04/17 09:08; Start 02/02/17 at 21:45 Vancomycin HCl 1 gm/Sodium Chloride 250 ml @ 250 mls/hr Q12H IV ; Start at 06:00; Stop 02/03/17 at 06:59; Status Cancel Ondansetron HCl (Zofran) 4 mg PRN Q4HRS PRN IV NAUSEA/VOMITING; Start 02/02/17 at 21:45 Aspirin (Omkar Aspirin) 325 mg [id number] PO Last administered on 02/04/17 09: 08; Start 02/03/17 at 08:00 Magnesium Hydroxide (Milk Of Magnesia) 2,400 mg 1X PRN PRN PO CONSTIPATION; Start 02/03/17 at 06:00; Stop 02/04/17 at 05:59; Status DC Bisacodyl (Dulcolax Supp) 10 mg 1X PRN PRN MD CONSTIPATION; Start 02/03/17 at 16:00; Stop 02/04/17 at 15:59 Acetaminophen/ Hydrocodone Bitart (Lortab 7.5/325) 1 tab PRN Q4HRS PRN PO MODERATE PAIN; Start 02/02/17 at 21:45 Acetaminophen/ Hydrocodone Bitart (Lortab 7.5/325) 2 tab PRN Q4HRS PRN PO SEVERE PAIN; Start 02/02/17 at 21:45 Dextrose (Dextrose 50%-Water Syringe) 12.5 gm PRN Q15MIN PRN IV SEE COMMENTS; Start 02/02/17 at 21:45 Prochlorperazine Edisylate (Compazine) 10 mg STK-MED ONCE .ROUTE ; Start at 21:58; Stop 02/02/17 at 21:59; Status DC Haloperidol Lactate (Haldol) 2.5 mg PRN Q6HRS PRN IVP MODERATE AGITATION Last administered on 02/03/17 05:47; Start 02/02/17 at 22:45 Haloperidol Lactate (Haldol) 5 mg PRN Q6HRS PRN IVP SEVERE AGITATION; Start at 22:45; Stop 02/03/17 at 09:53; Status DC Lorazepam (Ativan) 1 mg PRN Q4HRS PRN PO MODERATE ANXIETY / AGITATION; Start at 22:45 Lorazepam (Ativan) 2 mg PRN Q4HRS PRN IV SEVERE ANXIETY / AGITATION; Start at 22:45; Stop 02/03/17 at 12:58; Status DC Insulin Aspart (NovoLOG) 15 units TIDAC SQ Last administered on 02/04/17 09:15 ; Start 02/03/17 at 10:00 Insulin Detemir (Levemir) 20 units QHS SQ Last administered on 02/03/17 22:55 ; Start 02/03/17 at 21:00 Diphenhydramine HCl (Benadryl) 25 mg 1X PRN PRN PO prior to blood transfusion; Start 02/03/17 at 10:30; Stop 02/04/17 at 10:29; Status DC Darbepoetin Robert (Aranesp) 60 mcg WEEKLYHS SQ Last administered on 02/03/17 22 :05; Start 02/03/17 at 21:00 Sodium Chloride 1,000 ml @ 75 mls/hr [id number] IV Last administered on 18:04; Start 02/03/17 at 11:30; Stop 02/04/17 at 08:05; Status DC Fentanyl (Duragesic 25mcg/ Hr Patch) 1 patch Q3DAYS TD Last administered on 10:36; Start 02/04/17 at 08:00 Senna/Docusate Sodium (Senna Plus) 1 tab BID PO Last administered on 02/04/17 10:37; Start 02/04/17 at 10:00 Docusate Sodium (Colace) 100 mg BID PO Last administered on 02/04/17 10:37; Start 02/04/17 at 10:00 Magnesium Hydroxide (Milk Of Magnesia) 2,400 mg PRN Q12HR PRN PO CONSTIPATION; Start 02/04/17 at 09:15 Sodium Chloride 1,000 ml @ 75 mls/hr [id number] IV ; Start 02/04/17 at 10:45 Active Scripts Active Reported Humalog (Insulin Lispro) 100 Unit/1 Ml Cartridge 23 Unit SQ TIDAC Vitamin D3 (Cholecalciferol (Vitamin D3)) 1,000 Unit Tablet 1 Tab PO DAILY Nexium Capsule (Esomeprazole Magnesium) 40 Mg Capsule.dr 1 Cap PO DAILY Losartan Potassium 50 Mg Tablet 50 Mg PO DAILY Gabapentin 300 Mg Capsule 300 Mg PO BID Celebrex (Celecoxib) 200 Mg Capsule 200 Mg PO BID 30 Days Citalopram Hbr (Citalopram Hydrobromide) 40 Mg Tablet 40 Mg PO DAILY Lipitor (Atorvastatin Calcium) 20 Mg Tablet 20 Mg PO QHS Flomax (Tamsulosin Hcl) 0.4 Mg Cap.er.24h 0.4 Mg PO HS Metformin Hcl 500 Mg Tablet 500 Mg PO BID Plavix (Clopidogrel Bisulfate) 75 Mg Tablet 75 Mg PO DAILY Vitals/I & O Vital Sign - Last 24 Hours 02/03/17 02/03/17 02/03/17 02/03/17 13:34 14:05 15:00 15:10 Temp 97.5 96.8 98.1 97.5 97.5 96.8 98.1 97.5 Pulse 72 80 79 79 Resp 18 18 16 16 B/P (MAP) 102/65 114/60 (78) 96/52 (67) 140/76 (97) Pulse Ox 92 92 95 O2 Delivery Room Air Room Air Room Air 02/03/17 02/03/17 02/03/17 02/03/17 16:00 19:00 20:10 23:00 Temp 97.5 97.9 97.7 97.5 97.9 97.7 Pulse 80 80 81 Resp 16 18 18 B/P (MAP) 102/53 (69) 112/67 (82) 116/68 (84) Pulse Ox 97 95 92 O2 Delivery Room Air Room Air Room Air Room Air 02/04/17 02/04/17 02/04/17 02/04/17 03:00 07:26 08:20 09:27 Temp 97.9 97.7 96.5 97.9 97.7 96.5 Pulse 76 82 77 Resp 16 18 16 B/P (MAP) 120/68 (85) 120/62 (81) 92/48 Pulse Ox 95 93 O2 Delivery Room Air 02/04/17 02/04/17 02/04/17 02/04/17 09:45 10:15 10:36 10:43 Temp 96.7 97.7 97.7 96.7 97.7 97.7 Pulse 73 77 77 Resp 16 18 12 18 B/P (MAP) 112/64 106/66 106/66 (79) Pulse Ox 93 95 O2 Delivery Room Air 02/04/17 12:27 Temp 97.6 97.6 Pulse 75 Resp 18 B/P (MAP) 107/73 Intake and Output 02/03/17 02/03/17 02/04/17 14:59 22:59 06:59 Intake Total 350 ml 1220 ml 1370 ml Output Total 1200 ml 700 ml Balance -850 ml 1220 ml 670 ml MELISSA CHO MD Feb 04, 2017 12:45
[2017-02-04] MEDS: VANCOMYCIN PER PHARMACY MC PRN ×2 (16:05→18:14)
--- NOTE | 2017-02-04 16:39 | RAD ---
Ankle, 3 views, 02/04/2017: History: Postop evaluation The ankle dislocation has been reduced. The degree of displacement at the sites of the medial malleolar and lateral fibular fractures has also been reduced. There are surgical pins running through the hindfoot and through the mid tibia apparently attached to an external fixation device. There is bony fragmentation and irregularity of the fracture ends at the fibular fracture site raising the possibility of an old nonhealed fracture or superimposed infection. Gas collections are again noted in the soft tissues also raising the possibility of chronic infection.
[2017-02-04] MEDS: TAMSULOSIN 0.4 MG CAP.ER.24H. PO SCH (21:49)
[2017-02-04] MEDS: ATORVASTATIN CALCIUM 20 MG TABLET PO SCH (21:50)
[2017-02-04] MEDS: INSULIN DETEMIR 300 UNITS/3 ML INSULN.PEN. SQ SCH (21:56)
[2017-02-04] MEDS ORDERED: VANCOMYCIN 1.5 GM in IV NORMAL SALINE 500ML BAG 500 ML IV SCH (23:00)
[2017-02-05] MEDS: IV NORMAL SALINE 1000ML BAG 1,000 ML IV SCH ×2 (00:05→13:37)
[2017-02-05] MEDS: PIPERACILLIN/TAZOBACTAM 3.375 GM in IV NORMAL SALINE 50ML 50 ML IV SCH ×4 (01:00→17:42)
[2017-02-05 02:57] VITALS: BP 136/72
[2017-02-05] MEDS ORDERED: ALTEPLASE 2 MG VIAL INT CAT ONE (06:15)
[2017-02-05 07:15] VITALS: BP 138/79
[2017-02-05 08:53] LABS: BASO # 0.1 x10^3/uL (0.0-0.2); BASO % 1 % (0-3); EOS % 4 % (0-3); HEMOGLOBIN 8.2 g/dL (13.0-17.5); LYMPH # 0.7 x10^3/uL (1.0-4.8); LYMPH % 9 % (24-48); MEAN CORPUSCULAR HEMOGLOBIN 31 pg (25-35); MEAN CORPUSCULAR HGB CONC 34 g/dL (31-37); MEAN CORPUSCULAR VOLUME 92 fL (79-100); MONO % 8 % (0-9); NEUT % 78 % (31-73); PLATELET COUNT 169 x10^3/uL (140-400); RED BLOOD COUNT 2.61 x10^6/uL (4.30-5.70); RED CELL DISTRIBUTION WIDTH 16.4 % (11.5-14.5); WHITE BLOOD COUNT 7.9 x10^3/uL (4.0-11.0)
[2017-02-05] MEDS: SENNOSIDES/DOCUSATE 8.6/50MG TABLET. PO SCH (08:57)
[2017-02-05] MEDS: CHOLECALCIFEROL (VITAMIN D3) 1,000 UNIT TABLET PO SCH (08:57)
[2017-02-05] MEDS: PANTOPRAZOLE 40 MG TABLET.DR. PO SCH (08:57)
[2017-02-05] MEDS: CITALOPRAM 20 MG TABLET. PO SCH (08:57)
[2017-02-05] MEDS: GABAPENTIN 300 MG CAPSULE. PO SCH ×2 (08:58→21:05)
[2017-02-05] MEDS: DOCUSATE SODIUM 100 MG CAPSULE. PO SCH ×2 (08:58→21:05)
[2017-02-05] MEDS: ASPIRIN 325 MG TABLET PO SCH (08:58)
--- NOTE | 2017-02-05 09:03 | PDOC ---
Infectious Disease Note Subjective Subjective feeling good ROS ROS GEN: Denies fevers, chills, sweats HEENT: Denies blurred vision, sore throat CV: Denies chest pain RESP: Denies shortness of air, cough GI: Denies n/v/d NEURO: Denies confusion, dizziness MSK: Denies weakness, joint pain/swelling Vital Sign Vital Signs Vital Signs Date Time Temp Pulse Resp B/P (MAP) Pulse Ox O2 Delivery O2 Flow Rate FiO2 02/05/17 07:15 97.8 86 18 138/79 (98) 96 Room Air 97.8 02/04/17 20:00 2.0 Physical Exam PHYSICAL EXAM GENERAL: NAD, Alert HEENT: PERRL, OC/OP NECK: Supple, no JVD, no LN LUNGS: Clear HEART: S1S2, no gallop, no murmur ABD: Soft, NT, no organomegaly, no rebound EXT: No edema, no cyanosis FLIGHT SURVEYOR: Alert, 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, no focal neurologic deficit SKIN: No rash IV: ok Labs Lab Laboratory Tests Test 02/04/17 11:20 02/04/17 16:48 02/04/17 17:35 02/04/17 20:52 Glucose (Fingerstick) 226 mg/dL (70-99) 150 mg/dL (70-99) 228 mg/dL (70-99) Vancomycin Level Trough 21.7 mcg/mL (10.0-20.0) Vancomycin Last Dose Date 02/03/17 Vancomycin Last Dose Time 1800 Test 02/05/17 07:17 02/05/17 08:25 Glucose (Fingerstick) 177 mg/dL (70-99) White Blood Count 7.9 x10^3/uL (4.0-11.0) Red Blood Count 2.61 x10^6/uL (4.30-5.70) Hemoglobin 8.2 g/dL (13.0-17.5) Hematocrit 24.0 % (39.0-53.0) Mean Corpuscular Volume 92 fL (79-100) Mean Corpuscular Hemoglobin 31 pg (25-35) Mean Corpuscular Hemoglobin Concent 34 g/dL (31-37) Red Cell Distribution Width 16.4 % (11.5-14.5) Platelet Count 169 x10^3/uL (140-400) Neutrophils (%) (Auto) 78 % (31-73) Lymphocytes (%) (Auto) 9 % (24-48) Monocytes (%) (Auto) 8 % (0-9) Eosinophils (%) (Auto) 4 % (0-3) Basophils (%) (Auto) 1 % (0-3) Neutrophils # (Auto) 6.2 x10^3uL (1.8-7.7) Lymphocytes # (Auto) 0.7 x10^3/uL (1.0-4.8) Monocytes # (Auto) 0.7 x10^3/uL (0.0-1.1) Eosinophils # (Auto) 0.3 x10^3/uL (0.0-0.7) Basophils # (Auto) 0.1 x10^3/uL (0.0-0.2) Micro G neg zhang on G stain/ PSA Objective Assessment Left ankle abscess s/p I and D PSA Bi malleolar ankle fracture s/p ext fixation Rt calcaneal wound with vac in place ESRD on HD Plan Plan of Care vanc and gordon,,, PSA suseptibility pending,, add cipro and d/c vanc I and D done supportive care ROLANDO RUIZ MD Feb 05, 2017 09:03
[2017-02-05] MEDS: TAMSULOSIN 0.4 MG CAP.ER.24H. PO SCH (09:06)
[2017-02-05 09:08] LABS: CALCIUM 8.8 mg/dL (8.5-10.1); CREATININE 2.3 mg/dL (0.7-1.3); GFR 28.9
[2017-02-05] MEDS: INSULIN ASPART 300 UNITS/3 ML INSULN.PEN SQ SCH ×6 (09:08→17:46)
[2017-02-05 11:14] VITALS: BP 135/78
[2017-02-05] MEDS: CIPROFLOXACIN 400MG PREMIX 200 ML IV SCH ×2 (11:15→21:05)
--- NOTE | 2017-02-05 11:39 | PDOC ---
Renal-Progress Notes Subjective Notes Notes FEELS WELL History of Present Illness Hx of present illness IMPROVED Vitals Vitals Vital Signs Date Time Temp Pulse Resp B/P (MAP) Pulse Ox O2 Delivery O2 Flow Rate FiO2 02/05/17 11:14 98.2 80 18 135/78 (97) 97 Room Air 98.2 02/05/17 08:12 2.0 Weight Weight [ ] I.O. Intake and Output Intake and Output 02/05/17 07:00 Intake Total 2050 ml Output Total 5550 ml Balance -3500 ml Intake Oral 1060 ml IV Total 600 ml Blood Product IV Normal Saline Flush 390 ml Output Urine Total 5550 ml Labs Labs Laboratory Tests Test 02/04/17 16:48 02/04/17 17:35 02/04/17 20:52 02/05/17 07:17 Glucose (Fingerstick) 150 mg/dL (70-99) 228 mg/dL (70-99) 177 mg/dL (70-99) Vancomycin Level Trough 21.7 mcg/mL (10.0-20.0) Vancomycin Last Dose Date 02/03/17 Vancomycin Last Dose Time 1800 Test 02/05/17 08:25 White Blood Count 7.9 x10^3/uL (4.0-11.0) Red Blood Count 2.61 x10^6/uL (4.30-5.70) Hemoglobin 8.2 g/dL (13.0-17.5) Hematocrit 24.0 % (39.0-53.0) Mean Corpuscular Volume 92 fL (79-100) Mean Corpuscular Hemoglobin 31 pg (25-35) Mean Corpuscular Hemoglobin Concent 34 g/dL (31-37) Red Cell Distribution Width 16.4 % (11.5-14.5) Platelet Count 169 x10^3/uL (140-400) Neutrophils (%) (Auto) 78 % (31-73) Lymphocytes (%) (Auto) 9 % (24-48) Monocytes (%) (Auto) 8 % (0-9) Eosinophils (%) (Auto) 4 % (0-3) Basophils (%) (Auto) 1 % (0-3) Neutrophils # (Auto) 6.2 x10^3uL (1.8-7.7) Lymphocytes # (Auto) 0.7 x10^3/uL (1.0-4.8) Monocytes # (Auto) 0.7 x10^3/uL (0.0-1.1) Eosinophils # (Auto) 0.3 x10^3/uL (0.0-0.7) Basophils # (Auto) 0.1 x10^3/uL (0.0-0.2) Sodium Level 145 mmol/L (136-145) Potassium Level 5.0 mmol/L (3.5-5.1) Chloride Level 109 mmol/L (98-107) Carbon Dioxide Level 27 mmol/L (21-32) Anion Gap 9 (6-14) Blood Urea Nitrogen 57 mg/dL (8-26) Creatinine 2.3 mg/dL (0.7-1.3) Estimated GFR (Cockcroft-Gault) 28.9 Glucose Level 214 mg/dL (70-99) Calcium Level 8.8 mg/dL (8.5-10.1) Micro Micro Microbiology 02/02/17 Blood Culture - Preliminary, Resulted NO GROWTH AFTER 2 DAYS 02/02/17 Gram Stain - Final, Complete Review of Systems Constitutional: yes: alert, oriented Ears/Nose/Throat: Yes: no symptom reported Eyes: Yes: no symptom reported Cardiovascular: Yes no symptom reported Musculoskeletal: Yes: joint pain Skin: Yes no symptom reported Endocrine: Yes: no symptom reported Physical Exam General Appearance: no apparent distress Skin: warm Respiratory: bilateral CTA Heart: S1S2, RRR Abdomen: soft, bowel sounds present Genitourinary: bladder flat Extremities: pulses present Neurology: alert, oriented Assessment Assessment IMP BRYCE-MOST LIKELY FROM [id number] DOWN TO 2.3-LAST HD WAS LAST WEDNESDAY ONE WEEK AGO URINARY RETENTION LEFT ANKLE DISLOCATION AND INFECTION ANEMIA-BETTER PLAN IVF'S TO CONTINUE CONT TO HOLD OFF DIALYSIS IF CR CONTINUES TO IMPROVE OVER THE WEEKEND WILL HAVE HIS DIALYSIS CATHETER REMOVED LABS IN AM MARSHAL SNOW MD Feb 05, 2017 11:39
--- NOTE | 2017-02-05 12:53 | PDOC ---
PROGRESS NOTES Chief Complaint Chief Complaint 1. Left ankle fx, left ankle necrotizing fasciitis with oozing wound/bloody dc - s/p left ankle external fixation, I and D 2. ESRD on HD, didnot get on Wednesday 3. DM 2 insulin req, uncontrolled 4.MOrbid Obesity BMI 46 5. Anemia, normocytic possible of CKD 6. Allergy/adverse effect to morphine (loopy) 7. HTN, Depression CVA, dyslipidemia - - all chronc stable AMS, metabolic encephalopathy,post op from rehab right heel wound with wound vac, chronic acute on chronic anemia, esrd, expected post op constipation plan: fu with ortho, id, renal HD held since this Wednesday local wound care on zosyn, dc vanco, on cipro with ID, wound cx + pseudomonas dc ob change insulin to levemir 20u qhs, aspart 15u tid, ssi ptot dvt ppx 1u PRBC 02/03, 02/04 add stool softner cont IVF with renal, cont hold HD, consider remove HD cath next Wednesday fu with ORTHO, if not intervention, likely dc to snf on Wednesday podiatry consult for long nails. pt wants 2nd idea from dr. Galvin. asked nurse to let dr. Van know then let me know and may get Dr. Galvin to talk to pt. History of Present Illness History of Present Illness no fever, chills, sob or chest pain confused post ob, on ob x1 ,, off 02/03 hyperglycemia better has urine output, not HD on Wednesday with ok cr post op 02/02 for left ankle Hb 6.5 to 8 post 1 U PRBC constipation resolved Cr stable Vitals Vitals Vital Signs Date Time Temp Pulse Resp B/P (MAP) Pulse Ox O2 Delivery O2 Flow Rate FiO2 02/05/17 11:14 98.2 80 18 135/78 (97) 97 Room Air 98.2 02/05/17 08:12 2.0 Physical Exam General: Alert, Oriented X3, Cooperative, No acute distress Heart: Regular rate, Normal S1 Lungs: Clear Abdomen: Normal bowel sounds, Soft, No tenderness Extremities: No clubbing Skin: No rashes, No breakdown, No significant lesion, Other (left ankle swelling and pain and limited ROM with palpable sift tissue sweliing, some crepitus appreciable,with external fixaiton. right ankle has wound vac on. ) Labs LABS Laboratory Tests Test 02/04/17 16:48 02/04/17 17:35 02/04/17 20:52 02/05/17 07:17 Glucose (Fingerstick) 150 mg/dL (70-99) 228 mg/dL (70-99) 177 mg/dL (70-99) Vancomycin Level Trough 21.7 mcg/mL (10.0-20.0) Vancomycin Last Dose Date 02/03/17 Vancomycin Last Dose Time 1800 Test 02/05/17 08:25 02/05/17 11:28 White Blood Count 7.9 x10^3/uL (4.0-11.0) Red Blood Count 2.61 x10^6/uL (4.30-5.70) Hemoglobin 8.2 g/dL (13.0-17.5) Hematocrit 24.0 % (39.0-53.0) Mean Corpuscular Volume 92 fL (79-100) Mean Corpuscular Hemoglobin 31 pg (25-35) Mean Corpuscular Hemoglobin Concent 34 g/dL (31-37) Red Cell Distribution Width 16.4 % (11.5-14.5) Platelet Count 169 x10^3/uL (140-400) Neutrophils (%) (Auto) 78 % (31-73) Lymphocytes (%) (Auto) 9 % (24-48) Monocytes (%) (Auto) 8 % (0-9) Eosinophils (%) (Auto) 4 % (0-3) Basophils (%) (Auto) 1 % (0-3) Neutrophils # (Auto) 6.2 x10^3uL (1.8-7.7) Lymphocytes # (Auto) 0.7 x10^3/uL (1.0-4.8) Monocytes # (Auto) 0.7 x10^3/uL (0.0-1.1) Eosinophils # (Auto) 0.3 x10^3/uL (0.0-0.7) Basophils # (Auto) 0.1 x10^3/uL (0.0-0.2) Sodium Level 145 mmol/L (136-145) Potassium Level 5.0 mmol/L (3.5-5.1) Chloride Level 109 mmol/L (98-107) Carbon Dioxide Level 27 mmol/L (21-32) Anion Gap 9 (6-14) Blood Urea Nitrogen 57 mg/dL (8-26) Creatinine 2.3 mg/dL (0.7-1.3) Estimated GFR (Cockcroft-Gault) 28.9 Glucose Level 214 mg/dL (70-99) Calcium Level 8.8 mg/dL (8.5-10.1) Glucose (Fingerstick) 204 mg/dL (70-99) Assessment and Plan Assessmemt and Plan Problems Medical Problems: (1) Dislocation of tibia, upper, lateral Status: Acute (2) Fractured fibula Status: Acute (3) Necrotizing fasciitis Status: Acute Problems: Comment Review of Relevant I have reviewed the following items lauryn (where applicable) has been applied. Labs Laboratory Tests Test 02/03/17 16:34 02/03/17 21:44 02/04/17 06:15 02/04/17 07:32 Glucose (Fingerstick) 147 mg/dL (70-99) 187 mg/dL (70-99) 172 mg/dL (70-99) White Blood Count 8.2 x10^3/uL (4.0-11.0) Red Blood Count 2.22 x10^6/uL (4.30-5.70) Hemoglobin 7.0 g/dL (13.0-17.5) Hematocrit 20.8 % (39.0-53.0) Mean Corpuscular Volume 94 fL (79-100) Mean Corpuscular Hemoglobin 32 pg (25-35) Mean Corpuscular Hemoglobin Concent 34 g/dL (31-37) Red Cell Distribution Width 16.2 % (11.5-14.5) Platelet Count 145 x10^3/uL (140-400) Neutrophils (%) (Auto) 76 % (31-73) Lymphocytes (%) (Auto) 11 % (24-48) Monocytes (%) (Auto) 9 % (0-9) Eosinophils (%) (Auto) 3 % (0-3) Basophils (%) (Auto) 1 % (0-3) Neutrophils # (Auto) 6.2 x10^3uL (1.8-7.7) Lymphocytes # (Auto) 0.9 x10^3/uL (1.0-4.8) Monocytes # (Auto) 0.7 x10^3/uL (0.0-1.1) Eosinophils # (Auto) 0.3 x10^3/uL (0.0-0.7) Basophils # (Auto) 0.1 x10^3/uL (0.0-0.2) Sodium Level 143 mmol/L (136-145) Potassium Level 4.4 mmol/L (3.5-5.1) Chloride Level 107 mmol/L (98-107) Carbon Dioxide Level 26 mmol/L (21-32) Anion Gap 10 (6-14) Blood Urea Nitrogen 71 mg/dL (8-26) Creatinine 2.4 mg/dL (0.7-1.3) Estimated GFR (Cockcroft-Gault) 27.5 Glucose Level 186 mg/dL (70-99) Calcium Level 9.0 mg/dL (8.5-10.1) Test 02/04/17 11:20 02/04/17 16:48 02/04/17 17:35 02/04/17 20:52 Glucose (Fingerstick) 226 mg/dL (70-99) 150 mg/dL (70-99) 228 mg/dL (70-99) Vancomycin Level Trough 21.7 mcg/mL (10.0-20.0) Vancomycin Last Dose Date 02/03/17 Vancomycin Last Dose Time 1800 Test 02/05/17 07:17 02/05/17 08:25 02/05/17 11:28 Glucose (Fingerstick) 177 mg/dL (70-99) 204 mg/dL (70-99) White Blood Count 7.9 x10^3/uL (4.0-11.0) Red Blood Count 2.61 x10^6/uL (4.30-5.70) Hemoglobin 8.2 g/dL (13.0-17.5) Hematocrit 24.0 % (39.0-53.0) Mean Corpuscular Volume 92 fL (79-100) Mean Corpuscular Hemoglobin 31 pg (25-35) Mean Corpuscular Hemoglobin Concent 34 g/dL (31-37) Red Cell Distribution Width 16.4 % (11.5-14.5) Platelet Count 169 x10^3/uL (140-400) Neutrophils (%) (Auto) 78 % (31-73) Lymphocytes (%) (Auto) 9 % (24-48) Monocytes (%) (Auto) 8 % (0-9) Eosinophils (%) (Auto) 4 % (0-3) Basophils (%) (Auto) 1 % (0-3) Neutrophils # (Auto) 6.2 x10^3uL (1.8-7.7) Lymphocytes # (Auto) 0.7 x10^3/uL (1.0-4.8) Monocytes # (Auto) 0.7 x10^3/uL (0.0-1.1) Eosinophils # (Auto) 0.3 x10^3/uL (0.0-0.7) Basophils # (Auto) 0.1 x10^3/uL (0.0-0.2) Sodium Level 145 mmol/L (136-145) Potassium Level 5.0 mmol/L (3.5-5.1) Chloride Level 109 mmol/L (98-107) Carbon Dioxide Level 27 mmol/L (21-32) Anion Gap 9 (6-14) Blood Urea Nitrogen 57 mg/dL (8-26) Creatinine 2.3 mg/dL (0.7-1.3) Estimated GFR (Cockcroft-Gault) 28.9 Glucose Level 214 mg/dL (70-99) Calcium Level 8.8 mg/dL (8.5-10.1) Laboratory Tests Test 02/04/17 16:48 02/04/17 17:35 02/04/17 20:52 02/05/17 07:17 Glucose (Fingerstick) 150 mg/dL (70-99) 228 mg/dL (70-99) 177 mg/dL (70-99) Vancomycin Level Trough 21.7 mcg/mL (10.0-20.0) Vancomycin Last Dose Date 02/03/17 Vancomycin Last Dose Time 1800 Test 02/05/17 08:25 02/05/17 11:28 White Blood Count 7.9 x10^3/uL (4.0-11.0) Red Blood Count 2.61 x10^6/uL (4.30-5.70) Hemoglobin 8.2 g/dL (13.0-17.5) Hematocrit 24.0 % (39.0-53.0) Mean Corpuscular Volume 92 fL (79-100) Mean Corpuscular Hemoglobin 31 pg (25-35) Mean Corpuscular Hemoglobin Concent 34 g/dL (31-37) Red Cell Distribution Width 16.4 % (11.5-14.5) Platelet Count 169 x10^3/uL (140-400) Neutrophils (%) (Auto) 78 % (31-73) Lymphocytes (%) (Auto) 9 % (24-48) Monocytes (%) (Auto) 8 % (0-9) Eosinophils (%) (Auto) 4 % (0-3) Basophils (%) (Auto) 1 % (0-3) Neutrophils # (Auto) 6.2 x10^3uL (1.8-7.7) Lymphocytes # (Auto) 0.7 x10^3/uL (1.0-4.8) Monocytes # (Auto) 0.7 x10^3/uL (0.0-1.1) Eosinophils # (Auto) 0.3 x10^3/uL (0.0-0.7) Basophils # (Auto) 0.1 x10^3/uL (0.0-0.2) Sodium Level 145 mmol/L (136-145) Potassium Level 5.0 mmol/L (3.5-5.1) Chloride Level 109 mmol/L (98-107) Carbon Dioxide Level 27 mmol/L (21-32) Anion Gap 9 (6-14) Blood Urea Nitrogen 57 mg/dL (8-26) Creatinine 2.3 mg/dL (0.7-1.3) Estimated GFR (Cockcroft-Gault) 28.9 Glucose Level 214 mg/dL (70-99) Calcium Level 8.8 mg/dL (8.5-10.1) Glucose (Fingerstick) 204 mg/dL (70-99) Microbiology 02/02/17 Blood Culture - Preliminary, Resulted NO GROWTH AFTER 2 DAYS 02/02/17 Gram Stain - Final, Complete Medications Current Medications Fentanyl Citrate (Fentanyl 2ml Vial) 50 mcg 1X ONCE IM Last administered on 15:59; Start 02/02/17 at 16:00; Stop 02/02/17 at 16:01; Status DC Vancomycin HCl (Vanco Per Pharmacy) 1 each PRN DAILY PRN MC SEE COMMENTS Last administered on 02/04/17 18:14; Start 02/02/17 at 19:06; Stop 02/05/17 at 09:05 ; Status DC Piperacillin Sod/ Tazobactam Sod 4.5 gm/Sodium Chloride 100 ml @ 200 mls/hr Q6HRS IV ; Start 02/03/17 at 00:00; Status UNV Vancomycin HCl 2 gm/Sodium Chloride 500 ml @ 250 mls/hr 1X ONCE IV Last administered on 02/02/17 18:13; Start 02/02/17 at 17:00; Stop 02/02/17 at 18:59 ; Status DC Piperacillin Sod/ Tazobactam Sod 4.5 gm/Sodium Chloride 100 ml @ 200 mls/hr 1X ONCE IV Last administered on 02/02/17 17:40; Start 02/02/17 at 17:00; Stop 02/02/17 at 17:29; Status DC Diphtheria/ Tetanus/Acell Pertussis (Boostrix) 0.5 ml ONCE ONCE VAX IM Last administered on 02/02/17 18:35; Start 02/02/17 at 18:30; Stop 02/02/17 at 18:31 ; Status DC Fentanyl Citrate (Fentanyl 2ml Vial) 75 mcg 1X ONCE IV Last administered on 18:33; Start 02/02/17 at 18:30; Stop 02/02/17 at 18:31; Status DC Labetalol HCl (Normodyne) 10 mg PRN Q2HR PRN IVP 160/100; Start 02/02/17 at 19: 00 Atorvastatin Calcium (Lipitor) 20 mg QHS PO Last administered on 02/04/17 21: 50; Start 02/02/17 at 21:00 Vitamin D (Vitamin D3) 1,000 unit DAILY PO Last administered on 02/05/17 08:57 ; Start 02/03/17 at 09:00 Losartan Potassium (Cozaar) 50 mg DAILY PO Last administered on 02/03/17 10:19 ; Start 02/03/17 at 09:00; Stop 02/03/17 at 11:41; Status DC Metformin HCl (Glucophage) 500 mg BID PO ; Start 02/02/17 at 21:00; Stop at 21:00; Status DC Tamsulosin HCl (Flomax) 0.4 mg HS PO Last administered on 02/05/17 09:06; Start 02/02/17 at 21:00 Citalopram Hydrobromide (CeleXA) 40 mg DAILY PO Last administered on 02/05/17 08:57; Start 02/03/17 at 09:00 Pantoprazole Sodium (Protonix) 40 mg DAILYAC PO Last administered on 02/05/17 08:57; Start 02/03/17 at 07:30 Gabapentin (Neurontin) 300 mg BID PO Last administered on 02/05/17 08:58; Start 02/02/17 at 21:00 Insulin Aspart (NovoLOG) 23 units TIDAC SQ ; Start 02/03/17 at 07:30; Stop 02/03 at 09:53; Status DC Fentanyl Citrate (Fentanyl 2ml Vial) 50 mcg PRN Q2HR PRN IV pain; Start at 19:00 Oxycodone/ Acetaminophen (Percocet 5/325) 1 tab PRN QID PRN PO pain; Start at 19:00; Stop 02/05/17 at 09:31; Status DC Insulin Aspart (NovoLOG) 0-9 UNITS TIDWMEALS SQ Last administered on 02/05/17 09:13; Start 02/03/17 at 08:00 Dextrose (Dextrose 50%-Water Syringe) 12.5 gm PRN Q15MIN PRN IV SEE COMMENTS; Start 02/02/17 at 19:00; Stop 02/02/17 at 21:51; Status DC Sodium Chloride 1,000 ml @ 100 mls/hr 1X ONCE IV Last administered on 19:30; Start 02/02/17 at 19:00; Stop 02/03/17 at 04:59; Status DC Fentanyl Citrate (Fentanyl 2ml Vial) 25 mcg PRN Q5MIN PRN IV MILD PAIN; Start 02/02/17 at 19:15; Stop 02/03/17 at 19:14; Status DC Fentanyl Citrate (Fentanyl 2ml Vial) 50 mcg PRN Q5MIN PRN IV MODERATE PAIN; Start 02/02/17 at 19:15; Stop 02/03/17 at 19:14; Status DC Ringer's Solution 1,000 ml @ 30 mls/hr Q24H IV Last administered on 02/02/17 19:33; Start 02/02/17 at 19:05; Stop 02/03/17 at 07:04; Status DC Lidocaine HCl 2 ml PRN 1X PRN ID PRIOR TO IV START; Start 02/02/17 at 19:15; Stop 02/03/17 at 19:14; Status DC Prochlorperazine Edisylate (Compazine) 5 mg PACU PRN PRN IV NAUSEA, MRX1 Last administered on 02/02/17 21:40; Start 02/02/17 at 19:15; Stop 02/03/17 at 19:14 ; Status DC Vancomycin HCl 1.75 gm/Sodium Chloride 500 ml @ 250 mls/hr Q24H IV Last administered on 02/03/17 18:06; Start 02/03/17 at 18:00; Stop 02/04/17 at 18:12 ; Status DC Vancomycin HCl 1 each 1X ONCE MC ; Start 02/04/17 at 17:30; Stop 02/04/17 at 17 :31; Status DC Piperacillin Sod/ Tazobactam Sod 3.375 gm/Sodium Chloride 50 ml @ 100 mls/hr Q6HRS IV Last administered on 02/05/17 11:14; Start 02/03/17 at 00:00 Dexamethasone Sodium Phosphate (Decadron) 20 mg STK-MED ONCE .ROUTE ; Start at 19:30; Stop 02/02/17 at 19:31; Status DC Ondansetron HCl (Zofran) 4 mg STK-MED ONCE .ROUTE ; Start 02/02/17 at 19:30; Stop 02/02/17 at 19:31; Status DC Propofol 20 ml @ As Directed STK-MED ONCE IV ; Start 02/02/17 at 19:30; Stop at 19:31; Status DC Lidocaine HCl (Lidocaine Pf 2% Vial) 5 ml STK-MED ONCE .ROUTE ; Start 02/02/17 at 19:30; Stop 02/02/17 at 19:31; Status DC Desflurane (Suprane) 30 ml STK-MED ONCE IH ; Start 02/02/17 at 19:30; Stop 02/02 at 19:31; Status DC Fentanyl Citrate (Fentanyl 2ml Vial) 100 mcg STK-MED ONCE .ROUTE ; Start at 19:30; Stop 02/02/17 at 19:31; Status DC Bupivacaine HCl/ Epinephrine Bitart (Sensorcaine-Epi 0.25%-1:075538 Mpf) 30 ml STK-MED ONCE .ROUTE ; Start 02/02/17 at 19:33; Stop 02/02/17 at 19:34; Status DC Ondansetron HCl (Zofran) 4 mg PRN Q8HRS PRN IV NAUSEA/VOMITING; Start 02/02/17 at 19:45; Stop 02/03/17 at 19:44; Status DC Fentanyl Citrate (Fentanyl 2ml Vial) 50 mcg PRN Q2HR PRN IV PAIN; Start at 19:45; Stop 02/03/17 at 19:44; Status DC Oxycodone HCl (Roxicodone) 5 mg PRN Q3HRS PRN PO MODERATE PAIN; Start 02/02/17 at 21:45 Fentanyl Citrate (Fentanyl 2ml Vial) 25 mcg PRN Q1HR PRN IV SEVERE PAIN; Start 02/02/17 at 21:45 Senna/Docusate Sodium (Senna Plus) 1 tab DAILY PO Last administered on 08:57; Start 02/03/17 at 09:00 Polyethylene Glycol (miraLAX PACKET) 17 gm PRN DAILY PRN PO CONSTIPATION Last administered on 02/04/17 09:08; Start 02/02/17 at 21:45 Vancomycin HCl 1 gm/Sodium Chloride 250 ml @ 250 mls/hr Q12H IV ; Start at 06:00; Stop 02/03/17 at 06:59; Status Cancel Ondansetron HCl (Zofran) 4 mg PRN Q4HRS PRN IV NAUSEA/VOMITING; Start 02/02/17 at 21:45 Aspirin (Omkar Aspirin) 325 mg [id number] PO Last administered on 02/05/17 08: 58; Start 02/03/17 at 08:00 Magnesium Hydroxide (Milk Of Magnesia) 2,400 mg 1X PRN PRN PO CONSTIPATION; Start 02/03/17 at 06:00; Stop 02/04/17 at 05:59; Status DC Bisacodyl (Dulcolax Supp) 10 mg 1X PRN PRN NE CONSTIPATION; Start 02/03/17 at 16:00; Stop 02/04/17 at 15:59; Status DC Acetaminophen/ Hydrocodone Bitart (Lortab 7.5/325) 1 tab PRN Q4HRS PRN PO MODERATE PAIN; Start 02/02/17 at 21:45 Acetaminophen/ Hydrocodone Bitart (Lortab 7.5/325) 2 tab PRN Q4HRS PRN PO SEVERE PAIN; Start 02/02/17 at 21:45 Dextrose (Dextrose 50%-Water Syringe) 12.5 gm PRN Q15MIN PRN IV SEE COMMENTS; Start 02/02/17 at 21:45 Prochlorperazine Edisylate (Compazine) 10 mg STK-MED ONCE .ROUTE ; Start at 21:58; Stop 02/02/17 at 21:59; Status DC Haloperidol Lactate (Haldol) 2.5 mg PRN Q6HRS PRN IVP MODERATE AGITATION Last administered on 02/03/17 05:47; Start 02/02/17 at 22:45 Haloperidol Lactate (Haldol) 5 mg PRN Q6HRS PRN IVP SEVERE AGITATION; Start at 22:45; Stop 02/03/17 at 09:53; Status DC Lorazepam (Ativan) 1 mg PRN Q4HRS PRN PO MODERATE ANXIETY / AGITATION; Start at 22:45 Lorazepam (Ativan) 2 mg PRN Q4HRS PRN IV SEVERE ANXIETY / AGITATION; Start at 22:45; Stop 02/03/17 at 12:58; Status DC Insulin Aspart (NovoLOG) 15 units TIDAC SQ Last administered on 02/05/17 09:08 ; Start 02/03/17 at 10:00 Insulin Detemir (Levemir) 20 units QHS SQ Last administered on 02/04/17 21:56 ; Start 02/03/17 at 21:00 Diphenhydramine HCl (Benadryl) 25 mg 1X PRN PRN PO prior to blood transfusion; Start 02/03/17 at 10:30; Stop 02/04/17 at 10:29; Status DC Darbepoetin Robert (Aranesp) 60 mcg [id number] SQ Last administered on 02/03/17 22 :05; Start 02/03/17 at 21:00 Sodium Chloride 1,000 ml @ 75 mls/hr [id number] IV Last administered on 18:04; Start 02/03/17 at 11:30; Stop 02/04/17 at 08:05; Status DC Fentanyl (Duragesic 25mcg/ Hr Patch) 1 patch Q3DAYS TD Last administered on 10:36; Start 02/04/17 at 08:00 Senna/Docusate Sodium (Senna Plus) 1 tab BID PO Last administered on 02/04/17 21:49; Start 02/04/17 at 10:00; Stop 02/05/17 at 09:31; Status DC Docusate Sodium (Colace) 100 mg BID PO Last administered on 02/05/17 08:58; Start 02/04/17 at 10:00 Magnesium Hydroxide (Milk Of Magnesia) 2,400 mg PRN Q12HR PRN PO CONSTIPATION; Start 02/04/17 at 09:15 Sodium Chloride 1,000 ml @ 75 mls/hr [id number] IV Last administered on 00:05; Start 02/04/17 at 10:45 Vancomycin HCl 1.5 gm/Sodium Chloride 500 ml @ 250 mls/hr Q24H IV Last administered on 02/04/17 22:47; Start 02/04/17 at 23:00; Stop 02/05/17 at 09:05 ; Status DC Alteplase, Recombinant (Cathflo) 2 mg 1X ONCE INT CAT Last administered on 06:32; Start 02/05/17 at 06:15; Stop 02/05/17 at 06:16; Status DC Active Scripts Active Reported Humalog (Insulin Lispro) 100 Unit/1 Ml Cartridge 23 Unit SQ TIDAC Vitamin D3 (Cholecalciferol (Vitamin D3)) 1,000 Unit Tablet 1 Tab PO DAILY Nexium Capsule (Esomeprazole Magnesium) 40 Mg Capsule.dr 1 Cap PO DAILY Losartan Potassium 50 Mg Tablet 50 Mg PO DAILY Gabapentin 300 Mg Capsule 300 Mg PO BID Celebrex (Celecoxib) 200 Mg Capsule 200 Mg PO BID 30 Days Citalopram Hbr (Citalopram Hydrobromide) 40 Mg Tablet 40 Mg PO DAILY Lipitor (Atorvastatin Calcium) 20 Mg Tablet 20 Mg PO QHS Flomax (Tamsulosin Hcl) 0.4 Mg Cap.er.24h 0.4 Mg PO HS Metformin Hcl 500 Mg Tablet 500 Mg PO BID Plavix (Clopidogrel Bisulfate) 75 Mg Tablet 75 Mg PO DAILY Vitals/I & O Vital Sign - Last 24 Hours 02/04/17 02/04/17 02/04/17 02/04/17 14:36 14:50 19:00 20:00 Temp 97.7 97.1 97.7 97.1 Pulse 77 79 Resp 12 19 20 B/P (MAP) 114/64 (81) 122/66 (84) Pulse Ox 93 96 97 O2 Delivery Room Air Room Air Room Air O2 Flow Rate 2.0 02/04/17 02/05/17 02/05/17 02/05/17 23:00 02:57 07:15 08:12 Temp 97.9 98.9 97.8 97.9 98.9 97.8 Pulse 82 79 86 Resp 20 20 18 B/P (MAP) 119/71 (87) 136/72 (93) 138/79 (98) Pulse Ox 94 96 96 O2 Delivery Room Air Room Air Room Air Room Air O2 Flow Rate 2.0 02/05/17 11:14 Temp 98.2 98.2 Pulse 80 Resp 18 B/P (MAP) 135/78 (97) Pulse Ox 97 O2 Delivery Room Air Intake and Output 02/04/17 02/04/17 02/05/17 15:00 23:00 07:00 Intake Total 510 ml 750 ml 790 ml Output Total 450 ml 2200 ml 2900 ml Balance 60 ml -1450 ml -2110 ml MELISSA CHO MD Feb 05, 2017 12:53
[2017-02-05 15:10] VITALS: BP 125/78
[2017-02-05] MEDS: HYDROcodone/APAP 7.5/325MG 1 TAB TABLET PO PRN (15:51)
--- NOTE | 2017-02-05 18:29 | PDOC ---
PROGRESS NOTES Subjective Subjective Pt states he is doing better today. Pain is controlled. Objective Vital Signs Vital Signs Date Time Temp Pulse Resp B/P (MAP) Pulse Ox O2 Delivery O2 Flow Rate FiO2 02/05/17 17:47 94 Room Air 02/05/17 15:51 16 02/05/17 15:10 97.9 81 125/78 (94) 97.9 02/05/17 08:12 2.0 Physical Exam Lying in bed. External fixator and postop dressing intact. Pin sites are clean without sign of infection. Right heel wrapped and wound vac in place. Left calf soft and nontender. Can dorsiflex and plantarflex toes. Light touch sensation diminished at toes. Labs Laboratory Tests Test 02/03/17 21:44 02/04/17 06:15 02/04/17 07:32 02/04/17 11:20 Glucose (Fingerstick) 187 mg/dL (70-99) 172 mg/dL (70-99) 226 mg/dL (70-99) White Blood Count 8.2 x10^3/uL (4.0-11.0) Red Blood Count 2.22 x10^6/uL (4.30-5.70) Hemoglobin 7.0 g/dL (13.0-17.5) Hematocrit 20.8 % (39.0-53.0) Mean Corpuscular Volume 94 fL (79-100) Mean Corpuscular Hemoglobin 32 pg (25-35) Mean Corpuscular Hemoglobin Concent 34 g/dL (31-37) Red Cell Distribution Width 16.2 % (11.5-14.5) Platelet Count 145 x10^3/uL (140-400) Neutrophils (%) (Auto) 76 % (31-73) Lymphocytes (%) (Auto) 11 % (24-48) Monocytes (%) (Auto) 9 % (0-9) Eosinophils (%) (Auto) 3 % (0-3) Basophils (%) (Auto) 1 % (0-3) Neutrophils # (Auto) 6.2 x10^3uL (1.8-7.7) Lymphocytes # (Auto) 0.9 x10^3/uL (1.0-4.8) Monocytes # (Auto) 0.7 x10^3/uL (0.0-1.1) Eosinophils # (Auto) 0.3 x10^3/uL (0.0-0.7) Basophils # (Auto) 0.1 x10^3/uL (0.0-0.2) Sodium Level 143 mmol/L (136-145) Potassium Level 4.4 mmol/L (3.5-5.1) Chloride Level 107 mmol/L (98-107) Carbon Dioxide Level 26 mmol/L (21-32) Anion Gap 10 (6-14) Blood Urea Nitrogen 71 mg/dL (8-26) Creatinine 2.4 mg/dL (0.7-1.3) Estimated GFR (Cockcroft-Gault) 27.5 Glucose Level 186 mg/dL (70-99) Calcium Level 9.0 mg/dL (8.5-10.1) Test 02/04/17 16:48 02/04/17 17:35 02/04/17 20:52 02/05/17 07:17 Glucose (Fingerstick) 150 mg/dL (70-99) 228 mg/dL (70-99) 177 mg/dL (70-99) Vancomycin Level Trough 21.7 mcg/mL (10.0-20.0) Vancomycin Last Dose Date 02/03/17 Vancomycin Last Dose Time 1800 Test 02/05/17 08:25 02/05/17 11:28 02/05/17 17:00 White Blood Count 7.9 x10^3/uL (4.0-11.0) Red Blood Count 2.61 x10^6/uL (4.30-5.70) Hemoglobin 8.2 g/dL (13.0-17.5) Hematocrit 24.0 % (39.0-53.0) Mean Corpuscular Volume 92 fL (79-100) Mean Corpuscular Hemoglobin 31 pg (25-35) Mean Corpuscular Hemoglobin Concent 34 g/dL (31-37) Red Cell Distribution Width 16.4 % (11.5-14.5) Platelet Count 169 x10^3/uL (140-400) Neutrophils (%) (Auto) 78 % (31-73) Lymphocytes (%) (Auto) 9 % (24-48) Monocytes (%) (Auto) 8 % (0-9) Eosinophils (%) (Auto) 4 % (0-3) Basophils (%) (Auto) 1 % (0-3) Neutrophils # (Auto) 6.2 x10^3uL (1.8-7.7) Lymphocytes # (Auto) 0.7 x10^3/uL (1.0-4.8) Monocytes # (Auto) 0.7 x10^3/uL (0.0-1.1) Eosinophils # (Auto) 0.3 x10^3/uL (0.0-0.7) Basophils # (Auto) 0.1 x10^3/uL (0.0-0.2) Sodium Level 145 mmol/L (136-145) Potassium Level 5.0 mmol/L (3.5-5.1) Chloride Level 109 mmol/L (98-107) Carbon Dioxide Level 27 mmol/L (21-32) Anion Gap 9 (6-14) Blood Urea Nitrogen 57 mg/dL (8-26) Creatinine 2.3 mg/dL (0.7-1.3) Estimated GFR (Cockcroft-Gault) 28.9 Glucose Level 214 mg/dL (70-99) Calcium Level 8.8 mg/dL (8.5-10.1) Glucose (Fingerstick) 204 mg/dL (70-99) 116 mg/dL (70-99) Laboratory Tests Test 02/04/17 20:52 02/05/17 07:17 02/05/17 08:25 02/05/17 11:28 Glucose (Fingerstick) 228 mg/dL (70-99) 177 mg/dL (70-99) 204 mg/dL (70-99) White Blood Count 7.9 x10^3/uL (4.0-11.0) Red Blood Count 2.61 x10^6/uL (4.30-5.70) Hemoglobin 8.2 g/dL (13.0-17.5) Hematocrit 24.0 % (39.0-53.0) Mean Corpuscular Volume 92 fL (79-100) Mean Corpuscular Hemoglobin 31 pg (25-35) Mean Corpuscular Hemoglobin Concent 34 g/dL (31-37) Red Cell Distribution Width 16.4 % (11.5-14.5) Platelet Count 169 x10^3/uL (140-400) Neutrophils (%) (Auto) 78 % (31-73) Lymphocytes (%) (Auto) 9 % (24-48) Monocytes (%) (Auto) 8 % (0-9) Eosinophils (%) (Auto) 4 % (0-3) Basophils (%) (Auto) 1 % (0-3) Neutrophils # (Auto) 6.2 x10^3uL (1.8-7.7) Lymphocytes # (Auto) 0.7 x10^3/uL (1.0-4.8) Monocytes # (Auto) 0.7 x10^3/uL (0.0-1.1) Eosinophils # (Auto) 0.3 x10^3/uL (0.0-0.7) Basophils # (Auto) 0.1 x10^3/uL (0.0-0.2) Sodium Level 145 mmol/L (136-145) Potassium Level 5.0 mmol/L (3.5-5.1) Chloride Level 109 mmol/L (98-107) Carbon Dioxide Level 27 mmol/L (21-32) Anion Gap 9 (6-14) Blood Urea Nitrogen 57 mg/dL (8-26) Creatinine 2.3 mg/dL (0.7-1.3) Estimated GFR (Cockcroft-Gault) 28.9 Glucose Level 214 mg/dL (70-99) Calcium Level 8.8 mg/dL (8.5-10.1) Test 8 17:00 Glucose (Fingerstick) 116 mg/dL (70-99) Imaging Three views of the left ankle taken 02/04/17 reviewed. External fixation remains intact. Alignment is unchanged from intraoperative films. Assessment Assessment POD #3 left CR of ankle fracture dislocation with ex fix application and I&D of left ankle abscess Problems: Plan Plan of Care Continue POC including PT/OT and DVT ppx. NWB on LLE, may hang legs over side of bed. Per RN, patient has requested a second opinion by Dr. Galvin; Dr. Van would appreciate his input. Will put in consult. Continue pin care twice daily and pulling 12 inches of iodoform packing daily. LELAND LUU Feb 05, 2017 18:29
[2017-02-05 19:00] VITALS: BP 131/75
[2017-02-05] MEDS: ATORVASTATIN CALCIUM 20 MG TABLET PO SCH (21:05)
[2017-02-05] MEDS: INSULIN DETEMIR 300 UNITS/3 ML INSULN.PEN. SQ SCH (21:08)
[2017-02-05 23:00] VITALS: BP 137/77
[2017-02-06 03:00] VITALS: BP 159/86
[2017-02-06 04:54] LABS: CALCIUM 8.8 mg/dL (8.5-10.1); GFR 33.9; POTASSIUM 4.9 mmol/L (3.5-5.1)
[2017-02-06] MEDS: PIPERACILLIN/TAZOBACTAM 3.375 GM in IV NORMAL SALINE 50ML 50 ML IV SCH ×5 (06:00→17:58)
[2017-02-06 07:29] VITALS: BP 140/77
[2017-02-06] MEDS: CIPROFLOXACIN 400MG PREMIX 200 ML IV SCH (08:52)
[2017-02-06] MEDS: ASPIRIN 325 MG TABLET PO SCH (08:53)
[2017-02-06] MEDS: CITALOPRAM 20 MG TABLET. PO SCH (08:54)
[2017-02-06] MEDS: SENNOSIDES/DOCUSATE 8.6/50MG TABLET. PO SCH (08:54)
[2017-02-06] MEDS: CHOLECALCIFEROL (VITAMIN D3) 1,000 UNIT TABLET PO SCH (08:54)
[2017-02-06] MEDS: DOCUSATE SODIUM 100 MG CAPSULE. PO SCH ×2 (08:54→21:07)
[2017-02-06] MEDS: PANTOPRAZOLE 40 MG TABLET.DR. PO SCH (08:54)
[2017-02-06] MEDS: GABAPENTIN 300 MG CAPSULE. PO SCH ×2 (08:54→21:07)
[2017-02-06] MEDS: IV NORMAL SALINE 1000ML BAG 1,000 ML IV SCH ×2 (08:55→16:05)
[2017-02-06] MEDS: INSULIN ASPART 300 UNITS/3 ML INSULN.PEN SQ SCH ×6 (09:10→18:02)
--- NOTE | 2017-02-06 10:57 | PDOC ---
Infectious Disease Note Subjective Subjective Feeling well Pain controlled ROS ROS GEN: Denies fevers, chills, sweats CV: Denies chest pain RESP: Denies shortness of air, cough GI: Denies n/v/d Vital Sign Vital Signs Vital Signs Date Time Temp Pulse Resp B/P (MAP) Pulse Ox O2 Delivery O2 Flow Rate FiO2 02/06/17 07:29 97.5 77 20 140/77 (98) 96 Room Air 97.5 02/05/17 08:12 2.0 Physical Exam PHYSICAL EXAM GENERAL: Sitting side of bed, relaxed appearance HEENT: OC/OP clear NECK: Supple LUNGS: Clear HEART: S1S2, no gallop, no murmur appreciated ABD: Obese, soft, NT EXT: Both feet are bandaged with wound vac on the right foot and external fixator on LLE. 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 clean HDC. clean Labs Lab Laboratory Tests Test 02/05/17 11:28 02/05/17 17:00 02/05/17 21:04 02/06/17 04:40 Glucose (Fingerstick) 204 mg/dL (70-99) 116 mg/dL (70-99) 194 mg/dL (70-99) Sodium Level 145 mmol/L (136-145) Potassium Level 4.9 mmol/L (3.5-5.1) Chloride Level 111 mmol/L (98-107) Carbon Dioxide Level 26 mmol/L (21-32) Anion Gap 8 (6-14) Blood Urea Nitrogen 47 mg/dL (8-26) Creatinine 2.0 mg/dL (0.7-1.3) Estimated GFR (Cockcroft-Gault) 33.9 Glucose Level 205 mg/dL (70-99) Calcium Level 8.8 mg/dL (8.5-10.1) Test 02/06/17 07:31 Glucose (Fingerstick) 216 mg/dL (70-99) Micro BLOOD CULTURE Preliminary NO GROWTH AFTER 3 DAYS Objective Assessment Left ankle abscess s/p I and D, 02/02, Proteus (R tetra), PSA ( R ticarcillin) , Enterococcus spp and Staph aureus Bi malleolar ankle fracture s/p ext fixation, 02/02 Right calcaneal wound with vac in place -h/o gangrenous ulcer of right heel. s/p excisional debridement skin and subcutaneous tissue, 01/05. No intra-op cultures were obtained -MRI from 01/02 showed chronic neuropathic arthropathy changes with hardware in place; no definite evidence of acute osteo noted but could not r/o with elevated ESR and WBC at the time. BRYCE/CKD. Cr clearance improving, off HD since 01/30 Plan Plan of Care Zosyn D/c Cipro supportive care Attending Co-Sign Attending Co-Sign The patient was seen and interviewed as well as examined at the bedside. The chart was reviewed. The case was discussed. Agree with the plan of care. ULISSES CABEZAS APRN Feb 06, 2017 10:57 RADHA SILVA MD Feb 06, 2017 15:24
[2017-02-06 11:44] VITALS: BP 134/79
--- NOTE | 2017-02-06 12:06 | PDOC ---
PROGRESS NOTES Chief Complaint Chief Complaint 1. Left ankle fx, left ankle necrotizing fasciitis with oozing wound/bloody dc s/p External fixation 2. BRYCE on CKD 3. ESRD NEW HD 3. DM 2 insulin req, uncontrolled 4.MOrbid Obesity BMI 46 5. Anemia, normocytic possible of CKD 6. Allergy/adverse effect to morphine (loopy) 7. HTN, Depression CVA, dyslipidemia - - all chronc stable History of Present Illness History of Present Illness NEw HD - got couple sessions in this admission BUt creat stable at 2.0 RENal note reviwed, might be able to get off HD and dc the HD cath PAin controlled LAying flat wants toe nail clipping and H cream Onb iV Cipro q12 per ID PLAN: Podiatry consult for toe nail clipping H cream CPm Kush Gleason Vitals Vitals Vital Signs Date Time Temp Pulse Resp B/P (MAP) Pulse Ox O2 Delivery O2 Flow Rate FiO2 02/06/17 11:44 97.5 80 18 134/79 (97) 94 Room Air 97.5 02/05/17 08:12 2.0 Physical Exam General: Alert, Oriented X3, Cooperative, No acute distress Heart: Regular rate, Normal S1 Lungs: Clear Abdomen: Normal bowel sounds, Soft, No tenderness Extremities: No clubbing Skin: No rashes, No breakdown, No significant lesion, Other (left ankle swelling and pain and limited ROM with palpable sift tissue sweliing, some crepitus appreciable,with external fixaiton. right ankle has wound vac on. ) Labs LABS Laboratory Tests Test 02/05/17 17:00 02/05/17 21:04 02/06/17 04:40 02/06/17 07:31 Glucose (Fingerstick) 116 mg/dL (70-99) 194 mg/dL (70-99) 216 mg/dL (70-99) Sodium Level 145 mmol/L (136-145) Potassium Level 4.9 mmol/L (3.5-5.1) Chloride Level 111 mmol/L (98-107) Carbon Dioxide Level 26 mmol/L (21-32) Anion Gap 8 (6-14) Blood Urea Nitrogen 47 mg/dL (8-26) Creatinine 2.0 mg/dL (0.7-1.3) Estimated GFR (Cockcroft-Gault) 33.9 Glucose Level 205 mg/dL (70-99) Calcium Level 8.8 mg/dL (8.5-10.1) Test 02/06/17 11:45 Glucose (Fingerstick) 238 mg/dL (70-99) Review of Systems Review of Systems hemorrhoids, long toe nails, pain ok Assessment and Plan Assessmemt and Plan Problems Medical Problems: (1) Dislocation of tibia, upper, lateral Status: Acute (2) Fractured fibula Status: Acute (3) Necrotizing fasciitis Status: Acute Problems: Comment Review of Relevant I have reviewed the following items lauryn (where applicable) has been applied. Labs Laboratory Tests Test 02/04/17 16:48 02/04/17 17:35 02/04/17 20:52 02/05/17 07:17 Glucose (Fingerstick) 150 mg/dL (70-99) 228 mg/dL (70-99) 177 mg/dL (70-99) Vancomycin Level Trough 21.7 mcg/mL (10.0-20.0) Vancomycin Last Dose Date 02/03/17 Vancomycin Last Dose Time 1800 Test 02/05/17 08:25 02/05/17 11:28 02/05/17 17:00 02/05/17 21:04 White Blood Count 7.9 x10^3/uL (4.0-11.0) Red Blood Count 2.61 x10^6/uL (4.30-5.70) Hemoglobin 8.2 g/dL (13.0-17.5) Hematocrit 24.0 % (39.0-53.0) Mean Corpuscular Volume 92 fL (79-100) Mean Corpuscular Hemoglobin 31 pg (25-35) Mean Corpuscular Hemoglobin Concent 34 g/dL (31-37) Red Cell Distribution Width 16.4 % (11.5-14.5) Platelet Count 169 x10^3/uL (140-400) Neutrophils (%) (Auto) 78 % (31-73) Lymphocytes (%) (Auto) 9 % (24-48) Monocytes (%) (Auto) 8 % (0-9) Eosinophils (%) (Auto) 4 % (0-3) Basophils (%) (Auto) 1 % (0-3) Neutrophils # (Auto) 6.2 x10^3uL (1.8-7.7) Lymphocytes # (Auto) 0.7 x10^3/uL (1.0-4.8) Monocytes # (Auto) 0.7 x10^3/uL (0.0-1.1) Eosinophils # (Auto) 0.3 x10^3/uL (0.0-0.7) Basophils # (Auto) 0.1 x10^3/uL (0.0-0.2) Sodium Level 145 mmol/L (136-145) Potassium Level 5.0 mmol/L (3.5-5.1) Chloride Level 109 mmol/L (98-107) Carbon Dioxide Level 27 mmol/L (21-32) Anion Gap 9 (6-14) Blood Urea Nitrogen 57 mg/dL (8-26) Creatinine 2.3 mg/dL (0.7-1.3) Estimated GFR (Cockcroft-Gault) 28.9 Glucose Level 214 mg/dL (70-99) Calcium Level 8.8 mg/dL (8.5-10.1) Glucose (Fingerstick) 204 mg/dL (70-99) 116 mg/dL (70-99) 194 mg/dL (70-99) Test 02/06/17 04:40 02/06/17 07:31 02/06/17 11:45 Sodium Level 145 mmol/L (136-145) Potassium Level 4.9 mmol/L (3.5-5.1) Chloride Level 111 mmol/L (98-107) Carbon Dioxide Level 26 mmol/L (21-32) Anion Gap 8 (6-14) Blood Urea Nitrogen 47 mg/dL (8-26) Creatinine 2.0 mg/dL (0.7-1.3) Estimated GFR (Cockcroft-Gault) 33.9 Glucose Level 205 mg/dL (70-99) Calcium Level 8.8 mg/dL (8.5-10.1) Glucose (Fingerstick) 216 mg/dL (70-99) 238 mg/dL (70-99) Laboratory Tests Test 02/05/17 17:00 02/05/17 21:04 02/06/17 04:40 02/06/17 07:31 Glucose (Fingerstick) 116 mg/dL (70-99) 194 mg/dL (70-99) 216 mg/dL (70-99) Sodium Level 145 mmol/L (136-145) Potassium Level 4.9 mmol/L (3.5-5.1) Chloride Level 111 mmol/L (98-107) Carbon Dioxide Level 26 mmol/L (21-32) Anion Gap 8 (6-14) Blood Urea Nitrogen 47 mg/dL (8-26) Creatinine 2.0 mg/dL (0.7-1.3) Estimated GFR (Cockcroft-Gault) 33.9 Glucose Level 205 mg/dL (70-99) Calcium Level 8.8 mg/dL (8.5-10.1) Test 02/06/17 11:45 Glucose (Fingerstick) 238 mg/dL (70-99) Microbiology 02/02/17 Blood Culture - Preliminary, Resulted NO GROWTH AFTER 3 DAYS 02/02/17 Gram Stain - Final, Complete Medications Current Medications Fentanyl Citrate (Fentanyl 2ml Vial) 50 mcg 1X ONCE IM Last administered on 15:59; Start 02/02/17 at 16:00; Stop 02/02/17 at 16:01; Status DC Vancomycin HCl (Vanco Per Pharmacy) 1 each PRN DAILY PRN MC SEE COMMENTS Last administered on 02/04/17 18:14; Start 02/02/17 at 19:06; Stop 02/05/17 at 09:05 ; Status DC Piperacillin Sod/ Tazobactam Sod 4.5 gm/Sodium Chloride 100 ml @ 200 mls/hr Q6HRS IV ; Start 02/03/17 at 00:00; Status UNV Vancomycin HCl 2 gm/Sodium Chloride 500 ml @ 250 mls/hr 1X ONCE IV Last administered on 02/02/17 18:13; Start 02/02/17 at 17:00; Stop 02/02/17 at 18:59 ; Status DC Piperacillin Sod/ Tazobactam Sod 4.5 gm/Sodium Chloride 100 ml @ 200 mls/hr 1X ONCE IV Last administered on 02/02/17 17:40; Start 02/02/17 at 17:00; Stop 02/02/17 at 17:29; Status DC Diphtheria/ Tetanus/Acell Pertussis (Boostrix) 0.5 ml ONCE ONCE VAX IM Last administered on 02/02/17 18:35; Start 02/02/17 at 18:30; Stop 02/02/17 at 18:31 ; Status DC Fentanyl Citrate (Fentanyl 2ml Vial) 75 mcg 1X ONCE IV Last administered on 18:33; Start 02/02/17 at 18:30; Stop 02/02/17 at 18:31; Status DC Labetalol HCl (Normodyne) 10 mg PRN Q2HR PRN IVP 160/100; Start 02/02/17 at 19: 00 Atorvastatin Calcium (Lipitor) 20 mg QHS PO Last administered on 02/05/17 21: 05; Start 02/02/17 at 21:00 Vitamin D (Vitamin D3) 1,000 unit DAILY PO Last administered on 02/06/17 08:54 ; Start 02/03/17 at 09:00 Losartan Potassium (Cozaar) 50 mg DAILY PO Last administered on 02/03/17 10:19 ; Start 02/03/17 at 09:00; Stop 02/03/17 at 11:41; Status DC Metformin HCl (Glucophage) 500 mg BID PO ; Start 02/02/17 at 21:00; Stop at 21:00; Status DC Tamsulosin HCl (Flomax) 0.4 mg HS PO Last administered on 02/05/17 09:06; Start 02/02/17 at 21:00 Citalopram Hydrobromide (CeleXA) 40 mg DAILY PO Last administered on 02/06/17 08:54; Start 02/03/17 at 09:00 Pantoprazole Sodium (Protonix) 40 mg DAILYAC PO Last administered on 02/06/17 08:54; Start 02/03/17 at 07:30 Gabapentin (Neurontin) 300 mg BID PO Last administered on 02/06/17 08:54; Start 02/02/17 at 21:00 Insulin Aspart (NovoLOG) 23 units TIDAC SQ ; Start 02/03/17 at 07:30; Stop 02/03 at 09:53; Status DC Fentanyl Citrate (Fentanyl 2ml Vial) 50 mcg PRN Q2HR PRN IV pain; Start at 19:00 Oxycodone/ Acetaminophen (Percocet 5/325) 1 tab PRN QID PRN PO pain; Start at 19:00; Stop 02/05/17 at 09:31; Status DC Insulin Aspart (NovoLOG) 0-9 UNITS TIDWMEALS SQ Last administered on 02/06/17 09:10; Start 02/03/17 at 08:00 Dextrose (Dextrose 50%-Water Syringe) 12.5 gm PRN Q15MIN PRN IV SEE COMMENTS; Start 02/02/17 at 19:00; Stop 02/02/17 at 21:51; Status DC Sodium Chloride 1,000 ml @ 100 mls/hr 1X ONCE IV Last administered on 19:30; Start 02/02/17 at 19:00; Stop 02/03/17 at 04:59; Status DC Fentanyl Citrate (Fentanyl 2ml Vial) 25 mcg PRN Q5MIN PRN IV MILD PAIN; Start 02/02/17 at 19:15; Stop 02/03/17 at 19:14; Status DC Fentanyl Citrate (Fentanyl 2ml Vial) 50 mcg PRN Q5MIN PRN IV MODERATE PAIN; Start 02/02/17 at 19:15; Stop 02/03/17 at 19:14; Status DC Ringer's Solution 1,000 ml @ 30 mls/hr Q24H IV Last administered on 02/02/17 19:33; Start 02/02/17 at 19:05; Stop 02/03/17 at 07:04; Status DC Lidocaine HCl 2 ml PRN 1X PRN ID PRIOR TO IV START; Start 02/02/17 at 19:15; Stop 02/03/17 at 19:14; Status DC Prochlorperazine Edisylate (Compazine) 5 mg PACU PRN PRN IV NAUSEA, MRX1 Last administered on 02/02/17 21:40; Start 02/02/17 at 19:15; Stop 02/03/17 at 19:14 ; Status DC Vancomycin HCl 1.75 gm/Sodium Chloride 500 ml @ 250 mls/hr Q24H IV Last administered on 02/03/17 18:06; Start 02/03/17 at 18:00; Stop 02/04/17 at 18:12 ; Status DC Vancomycin HCl 1 each 1X ONCE MC ; Start 02/04/17 at 17:30; Stop 02/04/17 at 17 :31; Status DC Piperacillin Sod/ Tazobactam Sod 3.375 gm/Sodium Chloride 50 ml @ 100 mls/hr Q6HRS IV Last administered on 02/06/17t 06:00; Start 02/03/17 at 00:00 Dexamethasone Sodium Phosphate (Decadron) 20 mg STK-MED ONCE .ROUTE ; Start at 19:30; Stop 02/02/17 at 19:31; Status DC Ondansetron HCl (Zofran) 4 mg STK-MED ONCE .ROUTE ; Start 02/02/17 at 19:30; Stop 02/02/17 at 19:31; Status DC Propofol 20 ml @ As Directed STK-MED ONCE IV ; Start 02/02/17 at 19:30; Stop at 19:31; Status DC Lidocaine HCl (Lidocaine Pf 2% Vial) 5 ml STK-MED ONCE .ROUTE ; Start 02/02/17 at 19:30; Stop 02/02/17 at 19:31; Status DC Desflurane (Suprane) 30 ml STK-MED ONCE IH ; Start 02/02/17 at 19:30; Stop 02/02 at 19:31; Status DC Fentanyl Citrate (Fentanyl 2ml Vial) 100 mcg STK-MED ONCE .ROUTE ; Start at 19:30; Stop 02/02/17 at 19:31; Status DC Bupivacaine HCl/ Epinephrine Bitart (Sensorcaine-Epi 0.25%-1:[id number] Mpf) 30 ml STK-MED ONCE .ROUTE ; Start 02/02/17 at 19:33; Stop 02/02/17 at 19:34; Status DC Ondansetron HCl (Zofran) 4 mg PRN Q8HRS PRN IV NAUSEA/VOMITING; Start 02/02/17 at 19:45; Stop 02/03/17 at 19:44; Status DC Fentanyl Citrate (Fentanyl 2ml Vial) 50 mcg PRN Q2HR PRN IV PAIN; Start at 19:45; Stop 02/03/17 at 19:44; Status DC Oxycodone HCl (Roxicodone) 5 mg PRN Q3HRS PRN PO MODERATE PAIN; Start 02/02/17 at 21:45 Fentanyl Citrate (Fentanyl 2ml Vial) 25 mcg PRN Q1HR PRN IV SEVERE PAIN; Start 02/02/17 at 21:45 Senna/Docusate Sodium (Senna Plus) 1 tab DAILY PO Last administered on 08:54; Start 02/03/17 at 09:00 Polyethylene Glycol (miraLAX PACKET) 17 gm PRN DAILY PRN PO CONSTIPATION Last administered on 02/04/17 09:08; Start 02/02/17 at 21:45 Vancomycin HCl 1 gm/Sodium Chloride 250 ml @ 250 mls/hr Q12H IV ; Start at 06:00; Stop 02/03/17 at 06:59; Status Cancel Ondansetron HCl (Zofran) 4 mg PRN Q4HRS PRN IV NAUSEA/VOMITING; Start 02/02/17 at 21:45 Aspirin (Omkar Aspirin) 325 mg [id number] PO Last administered on 02/06/17 08: 53; Start 02/03/17 at 08:00 Magnesium Hydroxide (Milk Of Magnesia) 2,400 mg 1X PRN PRN PO CONSTIPATION; Start 02/03/17 at 06:00; Stop 02/04/17 at 05:59; Status DC Bisacodyl (Dulcolax Supp) 10 mg 1X PRN PRN CA CONSTIPATION; Start 02/03/17 at 16:00; Stop 02/04/17 at 15:59; Status DC Acetaminophen/ Hydrocodone Bitart (Lortab 7.5/325) 1 tab PRN Q4HRS PRN PO MODERATE PAIN Last administered on 02/05/17 15:51; Start 02/02/17 at 21:45 Acetaminophen/ Hydrocodone Bitart (Lortab 7.5/325) 2 tab PRN Q4HRS PRN PO SEVERE PAIN; Start 02/02/17 at 21:45 Dextrose (Dextrose 50%-Water Syringe) 12.5 gm PRN Q15MIN PRN IV SEE COMMENTS; Start 02/02/17 at 21:45 Prochlorperazine Edisylate (Compazine) 10 mg STK-MED ONCE .ROUTE ; Start at 21:58; Stop 02/02/17 at 21:59; Status DC Haloperidol Lactate (Haldol) 2.5 mg PRN Q6HRS PRN IVP MODERATE AGITATION Last administered on 02/03/17 05:47; Start 02/02/17 at 22:45 Haloperidol Lactate (Haldol) 5 mg PRN Q6HRS PRN IVP SEVERE AGITATION; Start at 22:45; Stop 02/03/17 at 09:53; Status DC Lorazepam (Ativan) 1 mg PRN Q4HRS PRN PO MODERATE ANXIETY / AGITATION; Start at 22:45 Lorazepam (Ativan) 2 mg PRN Q4HRS PRN IV SEVERE ANXIETY / AGITATION; Start at 22:45; Stop 02/03/17 at 12:58; Status DC Insulin Aspart (NovoLOG) 15 units TIDAC SQ Last administered on 02/06/17 09:10 ; Start 02/03/17 at 10:00 Insulin Detemir (Levemir) 20 units QHS SQ Last administered on 02/05/17 21:08 ; Start 02/03/17 at 21:00 Diphenhydramine HCl (Benadryl) 25 mg 1X PRN PRN PO prior to blood transfusion; Start 02/03/17 at 10:30; Stop 02/04/17 at 10:29; Status DC Darbepoetin Robert (Aranesp) 60 mcg [id number] SQ Last administered on 02/03/17 22 :05; Start 02/03/17 at 21:00 Sodium Chloride 1,000 ml @ 75 mls/hr [id number] IV Last administered on 18:04; Start 02/03/17 at 11:30; Stop 02/04/17 at 08:05; Status DC Fentanyl (Duragesic 25mcg/ Hr Patch) 1 patch Q3DAYS TD Last administered on 10:36; Start 02/04/17 at 08:00 Senna/Docusate Sodium (Senna Plus) 1 tab BID PO Last administered on 02/04/17 21:49; Start 02/04/17 at 10:00; Stop 02/05/17 at 09:31; Status DC Docusate Sodium (Colace) 100 mg BID PO Last administered on 02/06/17 08:54; Start 02/04/17 at 10:00 Magnesium Hydroxide (Milk Of Magnesia) 2,400 mg PRN Q12HR PRN PO CONSTIPATION; Start 02/04/17 at 09:15 Sodium Chloride 1,000 ml @ 75 mls/hr [id number] IV Last administered on 08:55; Start 02/04/17 at 10:45 Vancomycin HCl 1.5 gm/Sodium Chloride 500 ml @ 250 mls/hr Q24H IV Last administered on 02/04/17 22:47; Start 02/04/17 at 23:00; Stop 02/05/17 at 09:05 ; Status DC Alteplase, Recombinant (Cathflo) 2 mg 1X ONCE INT CAT Last administered on 06:32; Start 02/05/17 at 06:15; Stop 02/05/17 at 06:16; Status DC Active Scripts Active Reported Humalog (Insulin Lispro) 100 Unit/1 Ml Cartridge 23 Unit SQ TIDAC Vitamin D3 (Cholecalciferol (Vitamin D3)) 1,000 Unit Tablet 1 Tab PO DAILY Nexium Capsule (Esomeprazole Magnesium) 40 Mg Capsule.dr 1 Cap PO DAILY Losartan Potassium 50 Mg Tablet 50 Mg PO DAILY Gabapentin 300 Mg Capsule 300 Mg PO BID Celebrex (Celecoxib) 200 Mg Capsule 200 Mg PO BID 30 Days Citalopram Hbr (Citalopram Hydrobromide) 40 Mg Tablet 40 Mg PO DAILY Lipitor (Atorvastatin Calcium) 20 Mg Tablet 20 Mg PO QHS Flomax (Tamsulosin Hcl) 0.4 Mg Cap.er.24h 0.4 Mg PO HS Metformin Hcl 500 Mg Tablet 500 Mg PO BID Plavix (Clopidogrel Bisulfate) 75 Mg Tablet 75 Mg PO DAILY Vitals/I & O Vital Sign - Last 24 Hours 02/05/17 02/05/17 02/05/17 02/05/17 15:10 15:51 17:47 19:00 Temp 97.9 97.9 97.9 97.9 Pulse 81 77 Resp 20 16 20 B/P (MAP) 125/78 (94) 131/75 (93) Pulse Ox 97 94 94 98 O2 Delivery Room Air Room Air Room Air Room Air 02/05/17 02/05/17 02/06/17 02/06/17 20:00 23:00 03:00 07:29 Temp 97.7 97.7 97.5 97.7 97.7 97.5 Pulse 74 84 77 Resp 20 20 20 B/P (MAP) 137/77 (97) 159/86 (110) 140/77 (98) Pulse Ox 97 97 96 O2 Delivery Room Air Room Air Room Air Room Air 02/06/17 02/06/17 07:50 11:44 Temp 97.5 97.5 Pulse 80 Resp 18 B/P (MAP) 134/79 (97) Pulse Ox 94 O2 Delivery Room Air Room Air Intake and Output 02/05/17 02/05/17 02/06/17 14:59 22:59 06:59 Intake Total 580 ml 100 ml Output Total 2000 ml 1250 ml Balance -1420 ml -1150 ml MARINA GREGG MD Feb 06, 2017 12:06
[2017-02-06] MEDS ORDERED: PHENYLEPHRINE SUPP.RECT. PR PRN (12:15)
[2017-02-06 15:08] VITALS: BP 147/77
[2017-02-06 19:45] VITALS: BP 143/79
[2017-02-06] MEDS: ATORVASTATIN CALCIUM 20 MG TABLET PO SCH (21:07)
[2017-02-06] MEDS: HYDROcodone/APAP 7.5/325MG 1 TAB TABLET PO PRN (21:07)
[2017-02-06] MEDS: TAMSULOSIN 0.4 MG CAP.ER.24H. PO SCH (21:07)
[2017-02-06] MEDS: INSULIN DETEMIR 300 UNITS/3 ML INSULN.PEN. SQ SCH (21:18)
[2017-02-06 23:50] VITALS: BP 140/70
[2017-02-07] MEDS: PIPERACILLIN/TAZOBACTAM 3.375 GM in IV NORMAL SALINE 50ML 50 ML IV SCH ×4 (00:18→17:26)
[2017-02-07] MEDS: IV NORMAL SALINE 1000ML BAG 1,000 ML IV SCH ×2 (00:18→17:30)
[2017-02-07 03:30] VITALS: BP 143/85
[2017-02-07 07:20] VITALS: BP 151/89
[2017-02-07] MEDS: CITALOPRAM 20 MG TABLET. PO SCH (07:58)
[2017-02-07] MEDS: GABAPENTIN 300 MG CAPSULE. PO SCH ×2 (07:58→21:47)
[2017-02-07] MEDS: ASPIRIN 325 MG TABLET PO SCH (07:58)
[2017-02-07] MEDS: CHOLECALCIFEROL (VITAMIN D3) 1,000 UNIT TABLET PO SCH (07:58)
[2017-02-07] MEDS: PANTOPRAZOLE 40 MG TABLET.DR. PO SCH (07:59)
[2017-02-07] MEDS: DOCUSATE SODIUM 100 MG CAPSULE. PO SCH ×2 (07:59→21:48)
[2017-02-07] MEDS: SENNOSIDES/DOCUSATE 8.6/50MG TABLET. PO SCH (07:59)
[2017-02-07] MEDS: fentaNYL 25MCG/HR PATCH 1 PATCH PATCH.TD72 TD SCH (08:00)
[2017-02-07] MEDS: INSULIN ASPART 300 UNITS/3 ML INSULN.PEN SQ SCH ×6 (08:08→17:29)
--- NOTE | 2017-02-07 08:44 | PDOC ---
PROGRESS NOTES Chief Complaint Chief Complaint 1. Left ankle fx, left ankle necrotizing fasciitis with oozing wound/bloody dc s/p External fixation 2. BRYCE on CKD 3. ESRD NEW HD 3. DM 2 insulin req, uncontrolled 4.MOrbid Obesity BMI 46 5. Anemia, normocytic possible of CKD 6. Allergy/adverse effect to morphine (loopy) 7. HTN, Depression CVA, dyslipidemia - - all chronc stable History of Present Illness History of Present Illness Doung upper arm ext exercises NEw HD - got couple sessions in this admission BUt creat stable at 2.0 RENal note reviewed, might be able to get off HD and dc the HD cath PLans of dc zelaya cath soon too SN[facility] resident at [facility] BEd bound mostly bec no weight bear on the Rt leg (external fixators) WEDNESDAY ENTRY PAin controlled LAying flat wants toe nail clipping and H cream Onb iV Cipro q12 per ID PLAN: Podiatry consult for toe nail clipping - done wednesday H cream CPm DOing very well, totally changed man - we went and had some small talk about govt, healthcare etc today NO confusion anymore, that was initially present at ER Dw [facility] Gleason Vitals Vitals Vital Signs Date Time Temp Pulse Resp B/P (MAP) Pulse Ox O2 Delivery O2 Flow Rate FiO2 02/07/17 08:00 Room Air 02/07/17 07:20 96.4 78 18 151/89 (109) 96 96.4 Physical Exam General: Alert, Oriented X3, Cooperative, No acute distress Heart: Regular rate, Normal S1 Lungs: Clear Abdomen: Normal bowel sounds, Soft, No tenderness Extremities: No clubbing Skin: No rashes, No breakdown, No significant lesion, Other (left ankle swelling and pain and limited ROM with palpable sift tissue sweliing, some crepitus appreciable,with external fixaiton. right ankle has wound vac on. ) Labs LABS Laboratory Tests Test 02/06/17 11:45 02/06/17 16:18 02/06/17 19:38 02/07/17 07:26 Glucose (Fingerstick) 238 mg/dL (70-99) 149 mg/dL (70-99) 194 mg/dL (70-99) 174 mg/dL (70-99) Review of Systems Review of Systems denies Assessment and Plan Assessmemt and Plan Problems Medical Problems: (1) Dislocation of tibia, upper, lateral Status: Acute (2) Fractured fibula Status: Acute (3) Necrotizing fasciitis Status: Acute Problems: Comment Review of Relevant I have reviewed the following items lauryn (where applicable) has been applied. Labs Laboratory Tests Test 02/05/17 11:28 02/05/17 17:00 02/05/17 21:04 02/06/17 04:40 Glucose (Fingerstick) 204 mg/dL (70-99) 116 mg/dL (70-99) 194 mg/dL (70-99) Sodium Level 145 mmol/L (136-145) Potassium Level 4.9 mmol/L (3.5-5.1) Chloride Level 111 mmol/L (98-107) Carbon Dioxide Level 26 mmol/L (21-32) Anion Gap 8 (6-14) Blood Urea Nitrogen 47 mg/dL (8-26) Creatinine 2.0 mg/dL (0.7-1.3) Estimated GFR (Cockcroft-Gault) 33.9 Glucose Level 205 mg/dL (70-99) Calcium Level 8.8 mg/dL (8.5-10.1) Test 02/06/17 07:31 02/06/17 11:45 02/06/17 16:18 02/06/17 19:38 Glucose (Fingerstick) 216 mg/dL (70-99) 238 mg/dL (70-99) 149 mg/dL (70-99) 194 mg/dL (70-99) Test 02/07/17 07:26 Glucose (Fingerstick) 174 mg/dL (70-99) Laboratory Tests Test 02/06/17 11:45 02/06/17 16:18 02/06/17 19:38 02/07/17 07:26 Glucose (Fingerstick) 238 mg/dL (70-99) 149 mg/dL (70-99) 194 mg/dL (70-99) 174 mg/dL (70-99) Microbiology 02/02/17 Blood Culture - Preliminary, Resulted NO GROWTH AFTER 4 DAYS 02/02/17 Gram Stain - Final, Complete Medications Current Medications Fentanyl Citrate (Fentanyl 2ml Vial) 50 mcg 1X ONCE IM Last administered on t 15:59; Start 02/02/17 at 16:00; Stop 02/02/17 at 16:01; Status DC Vancomycin HCl (Vanco Per Pharmacy) 1 each PRN DAILY PRN MC SEE COMMENTS Last administered on 02/04/17 18:14; Start 02/02/17 at 19:06; Stop 02/05/17 at 09:05 ; Status DC Piperacillin Sod/ Tazobactam Sod 4.5 gm/Sodium Chloride 100 ml @ 200 mls/hr Q6HRS IV ; Start 02/03/17 at 00:00; Status UNV Vancomycin HCl 2 gm/Sodium Chloride 500 ml @ 250 mls/hr 1X ONCE IV Last administered on 02/02/17 18:13; Start 02/02/17 at 17:00; Stop 02/02/17 at 18:59 ; Status DC Piperacillin Sod/ Tazobactam Sod 4.5 gm/Sodium Chloride 100 ml @ 200 mls/hr 1X ONCE IV Last administered on 02/02/17 17:40; Start 02/02/17 at 17:00; Stop 02/02/17 at 17:29; Status DC Diphtheria/ Tetanus/Acell Pertussis (Boostrix) 0.5 ml ONCE ONCE VAX IM Last administered on 02/02/17 18:35; Start 02/02/17 at 18:30; Stop 02/02/17 at 18:31 ; Status DC Fentanyl Citrate (Fentanyl 2ml Vial) 75 mcg 1X ONCE IV Last administered on 18:33; Start 02/02/17 at 18:30; Stop 02/02/17 at 18:31; Status DC Labetalol HCl (Normodyne) 10 mg PRN Q2HR PRN IVP 160/100; Start 02/02/17 at 19: 00 Atorvastatin Calcium (Lipitor) 20 mg QHS PO Last administered on 02/06/17 21: 07; Start 02/02/17 at 21:00 Vitamin D (Vitamin D3) 1,000 unit DAILY PO Last administered on 02/07/17 07:58 ; Start 02/03/17 at 09:00 Losartan Potassium (Cozaar) 50 mg DAILY PO Last administered on 02/03/17 10:19 ; Start 02/03/17 at 09:00; Stop 02/03/17 at 11:41; Status DC Metformin HCl (Glucophage) 500 mg BID PO ; Start 02/02/17 at 21:00; Stop at 21:00; Status DC Tamsulosin HCl (Flomax) 0.4 mg HS PO Last administered on 02/06/17 21:07; Start 02/02/17 at 21:00 Citalopram Hydrobromide (CeleXA) 40 mg DAILY PO Last administered on 02/07/17 07:58; Start 02/03/17 at 09:00 Pantoprazole Sodium (Protonix) 40 mg DAILYAC PO Last administered on 02/07/17 07:59; Start 02/03/17 at 07:30 Gabapentin (Neurontin) 300 mg BID PO Last administered on 02/07/17 07:58; Start 02/02/17 at 21:00 Insulin Aspart (NovoLOG) 23 units TIDAC SQ ; Start 02/03/17 at 07:30; Stop 02/03 at 09:53; Status DC Fentanyl Citrate (Fentanyl 2ml Vial) 50 mcg PRN Q2HR PRN IV pain; Start at 19:00; Stop 02/06/17 at 16:12; Status DC Oxycodone/ Acetaminophen (Percocet 5/325) 1 tab PRN QID PRN PO pain; Start at 19:00; Stop 02/05/17 at 09:31; Status DC Insulin Aspart (NovoLOG) 0-9 UNITS TIDWMEALS SQ Last administered on 02/07/17 08:08; Start 02/03/17 at 08:00 Dextrose (Dextrose 50%-Water Syringe) 12.5 gm PRN Q15MIN PRN IV SEE COMMENTS; Start 02/02/17 at 19:00; Stop 02/02/17 at 21:51; Status DC Sodium Chloride 1,000 ml @ 100 mls/hr 1X ONCE IV Last administered on 19:30; Start 02/02/17 at 19:00; Stop 02/03/17 at 04:59; Status DC Fentanyl Citrate (Fentanyl 2ml Vial) 25 mcg PRN Q5MIN PRN IV MILD PAIN; Start 02/02/17 at 19:15; Stop 02/03/17 at 19:14; Status DC Fentanyl Citrate (Fentanyl 2ml Vial) 50 mcg PRN Q5MIN PRN IV MODERATE PAIN; Start 02/02/17 at 19:15; Stop 02/03/17 at 19:14; Status DC Ringer's Solution 1,000 ml @ 30 mls/hr Q24H IV Last administered on 02/02/17 19:33; Start 02/02/17 at 19:05; Stop 02/03/17 at 07:04; Status DC Lidocaine HCl 2 ml PRN 1X PRN ID PRIOR TO IV START; Start 02/02/17 at 19:15; Stop 02/03/17 at 19:14; Status DC Prochlorperazine Edisylate (Compazine) 5 mg PACU PRN PRN IV NAUSEA, MRX1 Last administered on 02/02/17 21:40; Start 02/02/17 at 19:15; Stop 02/03/17 at 19:14 ; Status DC Vancomycin HCl 1.75 gm/Sodium Chloride 500 ml @ 250 mls/hr Q24H IV Last administered on 02/03/17 18:06; Start 02/03/17 at 18:00; Stop 02/04/17 at 18:12 ; Status DC Vancomycin HCl 1 each 1X ONCE MC ; Start 02/04/17 at 17:30; Stop 02/04/17 at 17 :31; Status DC Piperacillin Sod/ Tazobactam Sod 3.375 gm/Sodium Chloride 50 ml @ 100 mls/hr Q6HRS IV Last administered on 02/07/17 06:48; Start 02/03/17 at 00:00 Dexamethasone Sodium Phosphate (Decadron) 20 mg STK-MED ONCE .ROUTE ; Start at 19:30; Stop 02/02/17 at 19:31; Status DC Ondansetron HCl (Zofran) 4 mg STK-MED ONCE .ROUTE ; Start 02/02/17 at 19:30; Stop 02/02/17 at 19:31; Status DC Propofol 20 ml @ As Directed STK-MED ONCE IV ; Start 02/02/17 at 19:30; Stop at 19:31; Status DC Lidocaine HCl (Lidocaine Pf 2% Vial) 5 ml STK-MED ONCE .ROUTE ; Start 02/02/17 at 19:30; Stop 02/02/17 at 19:31; Status DC Desflurane (Suprane) 30 ml STK-MED ONCE IH ; Start 02/02/17 at 19:30; Stop 02/02 at 19:31; Status DC Fentanyl Citrate (Fentanyl 2ml Vial) 100 mcg STK-MED ONCE .ROUTE ; Start at 19:30; Stop 02/02/17 at 19:31; Status DC Bupivacaine HCl/ Epinephrine Bitart (Sensorcaine-Epi 0.25%-1:470840 Mpf) 30 ml STK-MED ONCE .ROUTE ; Start 02/02/17 at 19:33; Stop 02/02/17 at 19:34; Status DC Ondansetron HCl (Zofran) 4 mg PRN Q8HRS PRN IV NAUSEA/VOMITING; Start 02/02/17 at 19:45; Stop 02/03/17 at 19:44; Status DC Fentanyl Citrate (Fentanyl 2ml Vial) 50 mcg PRN Q2HR PRN IV PAIN; Start at 19:45; Stop 02/03/17 at 19:44; Status DC Oxycodone HCl (Roxicodone) 5 mg PRN Q3HRS PRN PO MODERATE PAIN; Start 02/02/17 at 21:45 Fentanyl Citrate (Fentanyl 2ml Vial) 25 mcg PRN Q1HR PRN IV SEVERE PAIN; Start 02/02/17 at 21:45 Senna/Docusate Sodium (Senna Plus) 1 tab DAILY PO Last administered on 07:59; Start 02/03/17 at 09:00 Polyethylene Glycol (miraLAX PACKET) 17 gm PRN DAILY PRN PO CONSTIPATION Last administered on 02/04/17 09:08; Start 02/02/17 at 21:45 Vancomycin HCl 1 gm/Sodium Chloride 250 ml @ 250 mls/hr Q12H IV ; Start at 06:00; Stop 02/03/17 at 06:59; Status Cancel Ondansetron HCl (Zofran) 4 mg PRN Q4HRS PRN IV NAUSEA/VOMITING; Start 02/02/17 at 21:45 Aspirin (Omkar Aspirin) 325 mg [id number] PO Last administered on 02/07/17 07: 58; Start 02/03/17 at 08:00 Magnesium Hydroxide (Milk Of Magnesia) 2,400 mg 1X PRN PRN PO CONSTIPATION; Start 02/03/17 at 06:00; Stop 02/04/17 at 05:59; Status DC Bisacodyl (Dulcolax Supp) 10 mg 1X PRN PRN CO CONSTIPATION; Start 02/03/17 at 16:00; Stop 02/04/17 at 15:59; Status DC Acetaminophen/ Hydrocodone Bitart (Lortab 7.5/325) 1 tab PRN Q4HRS PRN PO MODERATE PAIN Last administered on 02/06/17 21:07; Start 02/02/17 at 21:45 Acetaminophen/ Hydrocodone Bitart (Lortab 7.5/325) 2 tab PRN Q4HRS PRN PO SEVERE PAIN; Start 02/02/17 at 21:45 Dextrose (Dextrose 50%-Water Syringe) 12.5 gm PRN Q15MIN PRN IV SEE COMMENTS; Start 02/02/17 at 21:45 Prochlorperazine Edisylate (Compazine) 10 mg STK-MED ONCE .ROUTE ; Start at 21:58; Stop 02/02/17 at 21:59; Status DC Haloperidol Lactate (Haldol) 2.5 mg PRN Q6HRS PRN IVP MODERATE AGITATION Last administered on 02/03/17 05:47; Start 02/02/17 at 22:45 Haloperidol Lactate (Haldol) 5 mg PRN Q6HRS PRN IVP SEVERE AGITATION; Start at 22:45; Stop 02/03/17 at 09:53; Status DC Lorazepam (Ativan) 1 mg PRN Q4HRS PRN PO MODERATE ANXIETY / AGITATION; Start at 22:45 Lorazepam (Ativan) 2 mg PRN Q4HRS PRN IV SEVERE ANXIETY / AGITATION; Start at 22:45; Stop 02/03/17 at 12:58; Status DC Insulin Aspart (NovoLOG) 15 units TIDAC SQ Last administered on 02/07/17 08:08 ; Start 02/03/17 at 10:00 Insulin Detemir (Levemir) 20 units QHS SQ Last administered on 02/06/17 21:18 ; Start 02/03/17 at 21:00 Diphenhydramine HCl (Benadryl) 25 mg 1X PRN PRN PO prior to blood transfusion; Start 02/03/17 at 10:30; Stop 02/04/17 at 10:29; Status DC Darbepoetin Robert (Aranesp) 60 mcg [id number] SQ Last administered on 02/03/17 22 :05; Start 02/03/17 at 21:00 Sodium Chloride 1,000 ml @ 75 mls/hr [id number] IV Last administered on 18:04; Start 02/03/17 at 11:30; Stop 02/04/17 at 08:05; Status DC Fentanyl (Duragesic 25mcg/ Hr Patch) 1 patch Q3DAYS TD Last administered on 08:00; Start 02/04/17 at 08:00 Senna/Docusate Sodium (Senna Plus) 1 tab BID PO Last administered on 02/04/17 21:49; Start 02/04/17 at 10:00; Stop 02/05/17 at 09:31; Status DC Docusate Sodium (Colace) 100 mg BID PO Last administered on 02/07/17 07:59; Start 02/04/17 at 10:00 Magnesium Hydroxide (Milk Of Magnesia) 2,400 mg PRN Q12HR PRN PO CONSTIPATION; Start 02/04/17 at 09:15 Sodium Chloride 1,000 ml @ 75 mls/hr [id number] IV Last administered on 00:18; Start 02/04/17 at 10:45 Vancomycin HCl 1.5 gm/Sodium Chloride 500 ml @ 250 mls/hr Q24H IV Last administered on 02/04/17 22:47; Start 02/04/17 at 23:00; Stop 02/05/17 at 09:05 ; Status DC Alteplase, Recombinant (Cathflo) 2 mg 1X ONCE INT CAT Last administered on 06:32; Start 02/05/17 at 06:15; Stop 02/05/17 at 06:16; Status DC Phenylephrine HCl (Hemorrhoidal) 1 supp PRN Q12HR PRN CO RECTAL PAIN; Start at 12:15 Active Scripts Active Reported Humalog (Insulin Lispro) 100 Unit/1 Ml Cartridge 23 Unit SQ TIDAC Vitamin D3 (Cholecalciferol (Vitamin D3)) 1,000 Unit Tablet 1 Tab PO DAILY Nexium Capsule (Esomeprazole Magnesium) 40 Mg Capsule.dr 1 Cap PO DAILY Losartan Potassium 50 Mg Tablet 50 Mg PO DAILY Gabapentin 300 Mg Capsule 300 Mg PO BID Celebrex (Celecoxib) 200 Mg Capsule 200 Mg PO BID 30 Days Citalopram Hbr (Citalopram Hydrobromide) 40 Mg Tablet 40 Mg PO DAILY Lipitor (Atorvastatin Calcium) 20 Mg Tablet 20 Mg PO QHS Flomax (Tamsulosin Hcl) 0.4 Mg Cap.er.24h 0.4 Mg PO HS Metformin Hcl 500 Mg Tablet 500 Mg PO BID Plavix (Clopidogrel Bisulfate) 75 Mg Tablet 75 Mg PO DAILY Vitals/I & O Vital Sign - Last 24 Hours 02/06/17 02/06/17 02/06/17 02/06/17 11:44 15:08 19:45 20:00 Temp 97.5 97.7 98.6 97.5 97.7 98.6 Pulse 80 60 82 Resp 18 18 16 B/P (MAP) 134/79 (97) 147/77 (100) 143/79 (100) Pulse Ox 94 97 96 O2 Delivery Room Air Room Air Room Air Room Air 02/06/17 02/07/17 02/07/17 02/07/17 23:50 03:30 07:20 08:00 Temp 97.9 99.9 96.4 97.9 99.9 96.4 Pulse 78 89 78 Resp 16 18 18 B/P (MAP) 140/70 (93) 143/85 (104) 151/89 (109) Pulse Ox 97 96 96 O2 Delivery Room Air Room Air Room Air Room Air Intake and Output 02/06/17 02/06/17 02/07/17 15:00 23:00 07:00 Intake Total 720 ml 180 ml 850 ml Output Total 2500 ml 700 ml 1500 ml Balance -1780 ml -520 ml -650 ml MARINA GREGG MD Feb 07, 2017 08:44
--- NOTE | 2017-02-07 09:29 | PDOC ---
Infectious Disease Note Subjective Subjective Feeling well Pain controlled ROS ROS GEN: Denies fevers, chills, sweats CV: Denies chest pain RESP: Denies shortness of air, cough GI: Denies n/v/d Vital Sign Vital Signs Vital Signs Date Time Temp Pulse Resp B/P (MAP) Pulse Ox O2 Delivery O2 Flow Rate FiO2 02/07/17 08:00 Room Air 02/07/17 07:20 96.4 78 18 151/89 (109) 96 96.4 Physical Exam PHYSICAL EXAM GENERAL: Lying down, performing upper body resistant exercises w/ band HEENT: OC/OP clear NECK: Supple LUNGS: Clear HEART: S1S2, no gallop, no murmur appreciated ABD: Obese, soft, NT : Brooks EXT: Both feet are bandaged with wound vac on the right foot and external fixator on LLE. 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 clean HDC. clean Labs Lab Laboratory Tests Test 02/06/17 11:45 02/06/17 16:18 02/06/17 19:38 02/07/17 07:26 Glucose (Fingerstick) 238 mg/dL (70-99) 149 mg/dL (70-99) 194 mg/dL (70-99) 174 mg/dL (70-99) Micro BLOOD CULTURE Preliminary NO GROWTH AFTER 4 DAYS Left foot/ankle ANAEROBIC RES 1 Preliminary No anaerobes recovered in 48 hours. AEROBIC CULT Final Final report AEROBIC RES 1 Final Pseudomonas aeruginosa AEROBIC RES 2 Final Enterococcus faecalis AEROBIC RES 3 Final Staphylococcus aureus Antibiotic RSLT#1 RSLT#2 RSLT#3 Amikacin S Cefepime S Ceftazidime S Ciprofloxacin S R Clindamycin S Erythromycin S Gentamicin S S Imipenem S Levofloxacin S I Linezolid S Meropenem S Moxifloxacin S Oxacillin S Penicillin S R Piperacillin S Quinupristin/Dalfopristin S Rifampin S Tetracycline S Ticarcillin R Tobramycin S Trimethoprim/Sulfa R Vancomycin S S AEROBIC RES 1 Final Proteus mirabilis Antibiotic RSLT#1 Amoxicillin/Clavulanic Acid S Ampicillin S Cefepime S Ceftriaxone S Cefuroxime S Ciprofloxacin S Ertapenem S Gentamicin S Levofloxacin S Piperacillin S Tetracycline R Tobramycin S Trimethoprim/Sulfa S Objective Assessment Left ankle abscess s/p I and D, 02/02, Proteus (R tetra), PSA ( R ticarcillin) , E. faecalis-PCNS & MSSA Bi malleolar ankle fracture s/p ext fixation, 02/02 Right calcaneal wound with vac in place -h/o gangrenous ulcer of right heel. s/p excisional debridement skin and subcutaneous tissue, 01/05. No intra-op cultures were obtained -MRI from 01/02 showed chronic neuropathic arthropathy changes with hardware in place; no definite evidence of acute osteo noted but could not r/o with elevated ESR and WBC at the time. BRYCE/CKD. Cr clearance improving, off HD since 01/30 Plan Plan of Care Zosyn f/u am labs Await further Ortho eval supportive care D/w family Attending Co-Sign Attending Co-Sign The patient was seen and interviewed as well as examined at the bedside. The chart was reviewed. The case was discussed. Agree with the plan of care. ULISSES CABEZAS APRN Feb 07, 2017 09:29 RADHA SILVA MD Feb 07, 2017 14:56
[2017-02-07 11:16] VITALS: BP 145/87
[2017-02-07 14:58] VITALS: BP 130/78
[2017-02-07 19:00] VITALS: BP 138/77
[2017-02-07] MEDS: ATORVASTATIN CALCIUM 20 MG TABLET PO SCH (21:47)
[2017-02-07] MEDS: TAMSULOSIN 0.4 MG CAP.ER.24H. PO SCH (21:47)
[2017-02-07] MEDS: HYDROcodone/APAP 7.5/325MG 1 TAB TABLET PO PRN (21:48)
[2017-02-07] MEDS: INSULIN DETEMIR 300 UNITS/3 ML INSULN.PEN. SQ SCH (21:54)
[2017-02-07 23:00] VITALS: BP 123/71
--- NOTE | 2017-02-07 23:55 | PDOC ---
Provider Note Provider Note RENAL F/U : XOCHILT S : Doing OK No new issues. O : VSS Afberile BP low stable Alert No distress Neck : Supple Lungs : Non labored CVS : RRR Abd : Soft, no masses Ext : Trace edema Labs and meds reviewed. A/P: Check Cr in am If stable off HD DC line ROBBI LEMON MD Feb 07, 2017 23:55
--- NOTE | 2017-02-07 23:55 | PDOC ---
Provider Note Provider Note RENAL F/U : XOCHILT DOS 02/06/17 S : Doing OK No new issues. O : VSS Afberile BP low stable Alert No distress Neck : Supple Lungs : Non labored CVS : RRR Abd : Soft, no masses Ext : Trace edema Labs and meds reviewed. A/P: ESRD DEHYDRATION HTN w CKD Cr stable off HD Watch If stable Mon DC HD line d/w pt ROBBI LEMON MD Feb 07, 2017 23:54
[2017-02-08 03:00] VITALS: BP 138/80
[2017-02-08] MEDS: PIPERACILLIN/TAZOBACTAM 3.375 GM in IV NORMAL SALINE 50ML 50 ML IV SCH ×5 (05:16→17:45)
[2017-02-08] MEDS: PANTOPRAZOLE 40 MG TABLET.DR. PO SCH (05:16)
[2017-02-08] MEDS: HYDROcodone/APAP 7.5/325MG 1 TAB TABLET PO PRN ×3 (05:17→21:25)
[2017-02-08] MEDS: IV NORMAL SALINE 1000ML BAG 1,000 ML IV SCH (05:19)
[2017-02-08 05:29] LABS: BASO # 0.1 x10^3/uL (0.0-0.2); BASO % 1 % (0-3); EOS % 5 % (0-3); HEMATOCRIT 23.1 % (39.0-53.0); LYMPH # 0.8 x10^3/uL (1.0-4.8); LYMPH % 11 % (24-48); MEAN CORPUSCULAR HEMOGLOBIN 32 pg (25-35); MEAN CORPUSCULAR HGB CONC 35 g/dL (31-37); MEAN CORPUSCULAR VOLUME 91 fL (79-100); MONO % 7 % (0-9); NEUT % 76 % (31-73); PLATELET COUNT 139 x10^3/uL (140-400); RED BLOOD COUNT 2.54 x10^6/uL (4.30-5.70); WHITE BLOOD COUNT 7.7 x10^3/uL (4.0-11.0)
[2017-02-08 05:55] LABS: ALBUMIN 2.3 g/dL (3.4-5.0); CALCIUM 8.9 mg/dL (8.5-10.1); CREATININE 1.9 mg/dL (0.7-1.3); PHOSPHORUS 4.1 mg/dL (2.6-4.7); POTASSIUM 4.4 mmol/L (3.5-5.1)
[2017-02-08 07:00] VITALS: BP 145/95
[2017-02-08] MEDS: DOCUSATE SODIUM 100 MG CAPSULE. PO SCH ×2 (08:35→21:23)
[2017-02-08] MEDS: GABAPENTIN 300 MG CAPSULE. PO SCH ×2 (08:35→21:18)
[2017-02-08] MEDS: ASPIRIN 325 MG TABLET PO SCH (08:35)
[2017-02-08] MEDS: CITALOPRAM 20 MG TABLET. PO SCH (08:35)
[2017-02-08] MEDS: CHOLECALCIFEROL (VITAMIN D3) 1,000 UNIT TABLET PO SCH (08:35)
[2017-02-08] MEDS: SENNOSIDES/DOCUSATE 8.6/50MG TABLET. PO SCH (08:35)
[2017-02-08] MEDS: INSULIN ASPART 300 UNITS/3 ML INSULN.PEN SQ SCH ×6 (08:40→17:48)
[2017-02-08 11:03] VITALS: BP 120/75
--- NOTE | 2017-02-08 11:19 | PDOC ---
Infectious Disease Note Subjective Subjective Feeling well Pain controlled ROS ROS GEN: Denies fevers, chills, sweats HEENT: Denies blurred vision, sore throat CV: Denies chest pain RESP: Denies shortness of air, cough GI: Denies n/v/d NEURO: Denies confusion, dizziness MSK: Denies weakness, joint pain/swelling Vital Sign Vital Signs Vital Signs Date Time Temp Pulse Resp B/P (MAP) Pulse Ox O2 Delivery O2 Flow Rate FiO2 02/08/17 11:03 97.9 79 20 120/75 (90) 98 Room Air 97.9 Physical Exam PHYSICAL EXAM GENERAL: NAD , coop HEENT: OC/OP clear NECK: Supple LUNGS: Clear HEART: S1S2, no gallop, no murmur appreciated ABD: Obese, soft, NT : Brooks EXT: Left heel with some min slough but clean/moist. on the right foot with ex f-ix. Wounds clean packed on lateral aspect. 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 clean HDC. clean Labs Lab Laboratory Tests Test 02/07/17 11:21 02/07/17 16:14 02/07/17 20:57 02/08/17 05:15 Glucose (Fingerstick) 212 mg/dL (70-99) 148 mg/dL (70-99) 184 mg/dL (70-99) White Blood Count 7.7 x10^3/uL (4.0-11.0) Red Blood Count 2.54 x10^6/uL (4.30-5.70) Hemoglobin 8.0 g/dL (13.0-17.5) Hematocrit 23.1 % (39.0-53.0) Mean Corpuscular Volume 91 fL (79-100) Mean Corpuscular Hemoglobin 32 pg (25-35) Mean Corpuscular Hemoglobin Concent 35 g/dL (31-37) Red Cell Distribution Width 16.0 % (11.5-14.5) Platelet Count 139 x10^3/uL (140-400) Neutrophils (%) (Auto) 76 % (31-73) Lymphocytes (%) (Auto) 11 % (24-48) Monocytes (%) (Auto) 7 % (0-9) Eosinophils (%) (Auto) 5 % (0-3) Basophils (%) (Auto) 1 % (0-3) Neutrophils # (Auto) 5.8 x10^3uL (1.8-7.7) Lymphocytes # (Auto) 0.8 x10^3/uL (1.0-4.8) Monocytes # (Auto) 0.5 x10^3/uL (0.0-1.1) Eosinophils # (Auto) 0.4 x10^3/uL (0.0-0.7) Basophils # (Auto) 0.1 x10^3/uL (0.0-0.2) Sodium Level 145 mmol/L (136-145) Potassium Level 4.4 mmol/L (3.5-5.1) Chloride Level 110 mmol/L (98-107) Carbon Dioxide Level 25 mmol/L (21-32) Anion Gap 10 (6-14) Blood Urea Nitrogen 31 mg/dL (8-26) Creatinine 1.9 mg/dL (0.7-1.3) Estimated GFR (Cockcroft-Gault) 36.0 Glucose Level 170 mg/dL (70-99) Calcium Level 8.9 mg/dL (8.5-10.1) Phosphorus Level 4.1 mg/dL (2.6-4.7) Albumin 2.3 g/dL (3.4-5.0) Test 02/08/17 07:27 Glucose (Fingerstick) 155 mg/dL (70-99) Objective Assessment Left ankle abscess s/p I and D, 02/02, Proteus (R tetra), PSA ( R ticarcillin) , E. faecalis-PCNS & MSSA Bi malleolar ankle fracture s/p ext fixation, 02/02 Right calcaneal wound with vac in place -h/o gangrenous ulcer of right heel. s/p excisional debridement skin and subcutaneous tissue, 01/05. No intra-op cultures were obtained -MRI from 01/02 showed chronic neuropathic arthropathy changes with hardware in place; no definite evidence of acute osteo noted but could not r/o with elevated ESR and WBC at the time. BRYCE/CKD. Cr clearance improving, off HD since 01/30 Plan Plan of Care Zosyn Await further Ortho eval supportive care Wound care D/w family Attending Co-Sign Attending Co-Sign The patient was seen and interviewed as well as examined at the bedside. The chart was reviewed. The case was discussed. Agree with the plan of care. RADHA SILVA MD Feb 08, 2017 11:19
--- NOTE | 2017-02-08 13:20 | PDOC ---
SUBJECTIVE ROS BRYCE/ ATN doign and feeling better today CVS: no Orthopnea, no CP RESP: no SOB, no ROMAN GI: no Nausea, no Vomiting : no Dysuria, no Urgency OBJECTIVE Vital Signs Vital Signs Date Time Temp Pulse Resp B/P (MAP) Pulse Ox O2 Delivery O2 Flow Rate FiO2 02/08/17 11:03 97.9 79 20 120/75 (90) 98 Room Air 97.9 I & 0 Intake and Output 02/08/17 07:00 Intake Total 920 ml Output Total 4025 ml Balance -3105 ml Intake Oral 920 ml Output Urine Total 4025 ml # Bowel Movements 1 PHYSICAL EXAM Physical Exam GEN: Awake, Oriented x 3, In no distress EYES: Vision Unchanged, Conjunctiva Normal EN: No EN Drainage, Mucous Membranes moist NECK: no JVD, no JVP, Supple, no Thyromegaly - thick neck CVS: S1S2, no Murmur, No Gallop, No Rub,+ Left Ankle Edema RESP: no Rales, no Rhonchi,no Acc. Muscle Use GI: BS + ve, NO Bruit, Non Tender, Non Distended - obese : no CVA tenderness, no Suprapubic Tenderness DIAGNOSIS/ASSESSMENT Assessment & Plan BRYCE/ ATN - appears to be recovering for now. Current fluid and E-lyte status does not necessitate emergent need for dialysis. Will re-evaluate for dialysis in the am ANEMIA; Aranap as ordered, Transfuse as needed HTN: Current BP meds as reviewed. See orders for changes. BONE & MINERAL: may need to liberalize diet soon D/c Permacath prior to D/c Problems: COMMENT/RELEVANT DATA Meds Current Medications Medications (Trade) Dose Ordered Sig/Serenity Start Time Stop Time Status Last Admin Dose Admin Acetaminophen/ Hydrocodone Bitart (Lortab 7.5/325) 2 tab PRN Q4HRS PRN 02/02/17 21:45 Alteplase, Recombinant (Cathflo) 2 mg 1X ONCE 02/05/17 06:15 02/05/17 06:16 DC 02/05/17 06:32 2 MG Aspirin (Omkar Aspirin) 325 mg DAILYWBKFT 02/03/17 08:00 02/08/17 08:35 325 MG Atorvastatin Calcium (Lipitor) 20 mg QHS 02/02/17 21:00 02/07/17 21:47 20 MG Bisacodyl (Dulcolax Supp) 10 mg 1X PRN PRN 02/03/17 16:00 02/04/17 15:59 DC Bupivacaine HCl/ Epinephrine Bitart (Sensorcaine-Epi 0.25%-1:926371 Mpf) 30 ml STK-MED ONCE 02/02/17 19:33 02/02/17 19:34 DC Citalopram Hydrobromide (CeleXA) 40 mg DAILY 02/03/17 09:00 02/08/17 08:35 40 MG Darbepoetin Robert (Aranesp) 60 mcg WEEKLYHS 02/03/17 21:00 02/03/17 22:05 60 MCG Desflurane (Suprane) 30 ml STK-MED ONCE 02/02/17 19:30 02/02/17 19:31 DC Dexamethasone Sodium Phosphate (Decadron) 20 mg STK-MED ONCE 02/02/17 19:30 02/02/17 19:31 DC Dextrose (Dextrose 50%-Water Syringe) 12.5 gm PRN Q15MIN PRN 02/02/17 21:45 Diphenhydramine HCl (Benadryl) 25 mg 1X PRN PRN 02/03/17 10:30 02/04/17 10:29 DC Diphtheria/ Tetanus/Acell Pertussis (Boostrix) 0.5 ml ONCE ONCE 02/02/17 18:30 02/02/17 18:31 DC 02/02/17 18:35 0.5 ML Docusate Sodium (Colace) 100 mg BID 02/04/17 10:00 02/08/17 08:35 100 MG Fentanyl (Duragesic 25mcg/ Hr Patch) 1 patch Q3DAYS 02/04/17 08:00 02/07/17 08:00 1 PATCH Fentanyl Citrate (Fentanyl 2ml Vial) 25 mcg PRN Q1HR PRN 02/02/17 21:45 Gabapentin (Neurontin) 300 mg BID 02/02/17 21:00 02/08/17 08:35 300 MG Haloperidol Lactate (Haldol) 5 mg PRN Q6HRS PRN 02/02/17 22:45 02/03/17 09:53 DC Insulin Aspart (NovoLOG) 15 units TIDAC 02/03/17 10:00 02/08/17 12:41 15 UNITS Insulin Detemir (Levemir) 20 units QHS 02/03/17 21:00 02/07/17 21:54 20 UNITS Labetalol HCl (Normodyne) 10 mg PRN Q2HR PRN 02/02/17 19:00 Lidocaine HCl (Lidocaine Pf 2% Vial) 5 ml STK-MED ONCE 02/02/17 19:30 02/02/17 19:31 DC Lorazepam (Ativan) 2 mg PRN Q4HRS PRN 02/02/17 22:45 02/03/17 12:58 DC Losartan Potassium (Cozaar) 50 mg DAILY 02/03/17 09:00 02/03/17 11:41 DC 02/03/17 10:19 50 MG Magnesium Hydroxide (Milk Of Magnesia) 2,400 mg PRN Q12HR PRN 02/04/17 09:15 Metformin HCl (Glucophage) 500 mg BID 02/02/17 21:00 02/02/17 21:00 DC Ondansetron HCl (Zofran) 4 mg PRN Q4HRS PRN 02/02/17 21:45 Oxycodone HCl (Roxicodone) 5 mg PRN Q3HRS PRN 02/02/17 21:45 Oxycodone/ Acetaminophen (Percocet 5/325) 1 tab PRN QID PRN 02/02/17 19:00 02/05/17 09:31 DC Pantoprazole Sodium (Protonix) 40 mg DAILYAC 02/03/17 07:30 02/08/17 05:16 40 MG Phenylephrine HCl (Hemorrhoidal) 1 supp PRN Q12HR PRN 02/06/17 12:15 Piperacillin Sod/ Tazobactam Sod 3.375 gm/Sodium Chloride 50 ml @ 100 mls/hr Q6HRS 02/03/17 00:00 02/08/17 12:37 100 MLS/HR Piperacillin Sod/ Tazobactam Sod 4.5 gm/Sodium Chloride 100 ml @ 200 mls/hr 1X ONCE 02/02/17 17:00 02/02/17 17:29 DC 02/02/17 17:40 200 MLS/HR Polyethylene Glycol (miraLAX PACKET) 17 gm PRN DAILY PRN 02/02/17 21:45 02/04/17 09:08 17 GM Prochlorperazine Edisylate (Compazine) 10 mg STK-MED ONCE 02/02/17 21:58 02/02/17 21:59 DC Propofol 20 ml @ As Directed STK-MED ONCE 02/02/17 19:30 02/02/17 19:31 DC Ringer's Solution 1,000 ml @ 30 mls/hr Q24H 02/02/17 19:05 02/03/17 07:04 DC 02/02/17 19:33 30 MLS/HR Senna/Docusate Sodium (Senna Plus) 1 tab BID 02/04/17 10:00 02/05/17 09:31 DC 02/04/17 21:49 1 TAB Sodium Chloride 1,000 ml @ 75 mls/hr [id number] 02/04/17 10:45 02/08/17 05:19 75 MLS/HR Tamsulosin HCl (Flomax) 0.4 mg HS 02/02/17 21:00 02/07/17 21:47 0.4 MG Vancomycin HCl (Vanco Per Pharmacy) 1 each PRN DAILY PRN 02/02/17 19:06 02/05/17 09:05 DC 02/04/17 18:14 1 EACH Vancomycin HCl 1.5 gm/Sodium Chloride 500 ml @ 250 mls/hr Q24H 02/04/17 23:00 02/05/17 09:05 DC 02/04/17 22:47 250 MLS/HR Vancomycin HCl 1.75 gm/Sodium Chloride 500 ml @ 250 mls/hr Q24H 02/03/17 18:00 02/04/17 18:12 DC 02/03/17 18:06 250 MLS/HR Vancomycin HCl 1 gm/Sodium Chloride 250 ml @ 250 mls/hr Q12H 02/03/17 06:00 02/03/17 06:59 Cancel Vancomycin HCl 2 gm/Sodium Chloride 500 ml @ 250 mls/hr 1X ONCE 02/02/17 17:00 02/02/17 18:59 DC 02/02/17 18:13 250 MLS/HR Vitamin D (Vitamin D3) 1,000 unit DAILY 02/03/17 09:00 02/08/17 08:35 1,000 UNIT Lab Laboratory Tests Test 02/07/17 16:14 02/07/17 20:57 02/08/17 05:15 02/08/17 07:27 Glucose (Fingerstick) 148 mg/dL (70-99) 184 mg/dL (70-99) 155 mg/dL (70-99) White Blood Count 7.7 x10^3/uL (4.0-11.0) Red Blood Count 2.54 x10^6/uL (4.30-5.70) Hemoglobin 8.0 g/dL (13.0-17.5) Hematocrit 23.1 % (39.0-53.0) Mean Corpuscular Volume 91 fL (79-100) Mean Corpuscular Hemoglobin 32 pg (25-35) Mean Corpuscular Hemoglobin Concent 35 g/dL (31-37) Red Cell Distribution Width 16.0 % (11.5-14.5) Platelet Count 139 x10^3/uL (140-400) Neutrophils (%) (Auto) 76 % (31-73) Lymphocytes (%) (Auto) 11 % (24-48) Monocytes (%) (Auto) 7 % (0-9) Eosinophils (%) (Auto) 5 % (0-3) Basophils (%) (Auto) 1 % (0-3) Neutrophils # (Auto) 5.8 x10^3uL (1.8-7.7) Lymphocytes # (Auto) 0.8 x10^3/uL (1.0-4.8) Monocytes # (Auto) 0.5 x10^3/uL (0.0-1.1) Eosinophils # (Auto) 0.4 x10^3/uL (0.0-0.7) Basophils # (Auto) 0.1 x10^3/uL (0.0-0.2) Sodium Level 145 mmol/L (136-145) Potassium Level 4.4 mmol/L (3.5-5.1) Chloride Level 110 mmol/L (98-107) Carbon Dioxide Level 25 mmol/L (21-32) Anion Gap 10 (6-14) Blood Urea Nitrogen 31 mg/dL (8-26) Creatinine 1.9 mg/dL (0.7-1.3) Estimated GFR (Cockcroft-Gault) 36.0 Glucose Level 170 mg/dL (70-99) Calcium Level 8.9 mg/dL (8.5-10.1) Phosphorus Level 4.1 mg/dL (2.6-4.7) Albumin 2.3 g/dL (3.4-5.0) Test 02/08/17 11:52 Glucose (Fingerstick) 150 mg/dL (70-99) TERRIE RUIZ MD Feb 08, 2017 13:20
[2017-02-08] MEDS ORDERED: MAGNESIUM SULFATE 2GM 50 ML IV PRN (13:30)
--- NOTE | 2017-02-08 14:49 | PDOC ---
PROGRESS NOTES Chief Complaint Chief Complaint 1. Left ankle fx, left ankle necrotizing fasciitis with oozing wound/bloody dc s/p External fixation 2. BRYCE on CKD 3. ESRD NEW HD 3. DM 2 insulin req, uncontrolled 4.MOrbid Obesity BMI 46 5. Anemia, normocytic possible of CKD 6. Allergy/adverse effect to morphine (loopy) 7. HTN, Depression CVA, dyslipidemia - - all chronc stable History of Present Illness History of Present Illness mentally OK, upset about his wifes recent stroke, [facility], he would like to rehab there if possible New HD - has been off now > 1 week. cont current, good urine output But creat stable at 2.0 Renal note reviewed, might be able to get off HD and dc the HD cath Plans of dc zelaya cath soon too [facility] resident at [facility] BEd bound mostly bec no weight bear on the Rt leg Vitals Vitals Vital Signs Date Time Temp Pulse Resp B/P (MAP) Pulse Ox O2 Delivery O2 Flow Rate FiO2 02/08/17 11:03 97.9 79 20 120/75 (90) 98 Room Air 97.9 Physical Exam General: Alert, Oriented X3, Cooperative, No acute distress Heart: Regular rate, Normal S1 Lungs: Clear Abdomen: Normal bowel sounds, Soft, No tenderness Extremities: No clubbing Skin: No rashes, No breakdown, No significant lesion, Other (left ankle swelling and pain and limited ROM with palpable sift tissue sweliing, some crepitus appreciable,with external fixaiton. right ankle has wound vac on. ) Labs LABS Laboratory Tests Test 02/07/17 16:14 02/07/17 20:57 02/08/17 05:15 02/08/17 07:27 Glucose (Fingerstick) 148 mg/dL (70-99) 184 mg/dL (70-99) 155 mg/dL (70-99) White Blood Count 7.7 x10^3/uL (4.0-11.0) Red Blood Count 2.54 x10^6/uL (4.30-5.70) Hemoglobin 8.0 g/dL (13.0-17.5) Hematocrit 23.1 % (39.0-53.0) Mean Corpuscular Volume 91 fL (79-100) Mean Corpuscular Hemoglobin 32 pg (25-35) Mean Corpuscular Hemoglobin Concent 35 g/dL (31-37) Red Cell Distribution Width 16.0 % (11.5-14.5) Platelet Count 139 x10^3/uL (140-400) Neutrophils (%) (Auto) 76 % (31-73) Lymphocytes (%) (Auto) 11 % (24-48) Monocytes (%) (Auto) 7 % (0-9) Eosinophils (%) (Auto) 5 % (0-3) Basophils (%) (Auto) 1 % (0-3) Neutrophils # (Auto) 5.8 x10^3uL (1.8-7.7) Lymphocytes # (Auto) 0.8 x10^3/uL (1.0-4.8) Monocytes # (Auto) 0.5 x10^3/uL (0.0-1.1) Eosinophils # (Auto) 0.4 x10^3/uL (0.0-0.7) Basophils # (Auto) 0.1 x10^3/uL (0.0-0.2) Sodium Level 145 mmol/L (136-145) Potassium Level 4.4 mmol/L (3.5-5.1) Chloride Level 110 mmol/L (98-107) Carbon Dioxide Level 25 mmol/L (21-32) Anion Gap 10 (6-14) Blood Urea Nitrogen 31 mg/dL (8-26) Creatinine 1.9 mg/dL (0.7-1.3) Estimated GFR (Cockcroft-Gault) 36.0 Glucose Level 170 mg/dL (70-99) Calcium Level 8.9 mg/dL (8.5-10.1) Phosphorus Level 4.1 mg/dL (2.6-4.7) Albumin 2.3 g/dL (3.4-5.0) Test 02/08/17 11:52 Glucose (Fingerstick) 150 mg/dL (70-99) Review of Systems Review of Systems no n.v.d pain OK Assessment and Plan Assessmemt and Plan Problems Medical Problems: (1) Dislocation of tibia, upper, lateral Status: Acute (2) Fractured fibula Status: Acute (3) Necrotizing fasciitis Status: Acute Problems: Comment Review of Relevant I have reviewed the following items lauryn (where applicable) has been applied. Labs Laboratory Tests Test 8/26/17 16:18 02/06/17 19:38 02/07/17 07:26 02/07/17 11:21 Glucose (Fingerstick) 149 mg/dL (70-99) 194 mg/dL (70-99) 174 mg/dL (70-99) 212 mg/dL (70-99) Test 02/07/17 16:14 02/07/17 20:57 02/08/17 05:15 02/08/17 07:27 Glucose (Fingerstick) 148 mg/dL (70-99) 184 mg/dL (70-99) 155 mg/dL (70-99) White Blood Count 7.7 x10^3/uL (4.0-11.0) Red Blood Count 2.54 x10^6/uL (4.30-5.70) Hemoglobin 8.0 g/dL (13.0-17.5) Hematocrit 23.1 % (39.0-53.0) Mean Corpuscular Volume 91 fL (79-100) Mean Corpuscular Hemoglobin 32 pg (25-35) Mean Corpuscular Hemoglobin Concent 35 g/dL (31-37) Red Cell Distribution Width 16.0 % (11.5-14.5) Platelet Count 139 x10^3/uL (140-400) Neutrophils (%) (Auto) 76 % (31-73) Lymphocytes (%) (Auto) 11 % (24-48) Monocytes (%) (Auto) 7 % (0-9) Eosinophils (%) (Auto) 5 % (0-3) Basophils (%) (Auto) 1 % (0-3) Neutrophils # (Auto) 5.8 x10^3uL (1.8-7.7) Lymphocytes # (Auto) 0.8 x10^3/uL (1.0-4.8) Monocytes # (Auto) 0.5 x10^3/uL (0.0-1.1) Eosinophils # (Auto) 0.4 x10^3/uL (0.0-0.7) Basophils # (Auto) 0.1 x10^3/uL (0.0-0.2) Sodium Level 145 mmol/L (136-145) Potassium Level 4.4 mmol/L (3.5-5.1) Chloride Level 110 mmol/L (98-107) Carbon Dioxide Level 25 mmol/L (21-32) Anion Gap 10 (6-14) Blood Urea Nitrogen 31 mg/dL (8-26) Creatinine 1.9 mg/dL (0.7-1.3) Estimated GFR (Cockcroft-Gault) 36.0 Glucose Level 170 mg/dL (70-99) Calcium Level 8.9 mg/dL (8.5-10.1) Phosphorus Level 4.1 mg/dL (2.6-4.7) Albumin 2.3 g/dL (3.4-5.0) Test 02/08/17 11:52 Glucose (Fingerstick) 150 mg/dL (70-99) Laboratory Tests Test 02/07/17 16:14 02/07/17 20:57 02/08/17 05:15 02/08/17 07:27 Glucose (Fingerstick) 148 mg/dL (70-99) 184 mg/dL (70-99) 155 mg/dL (70-99) White Blood Count 7.7 x10^3/uL (4.0-11.0) Red Blood Count 2.54 x10^6/uL (4.30-5.70) Hemoglobin 8.0 g/dL (13.0-17.5) Hematocrit 23.1 % (39.0-53.0) Mean Corpuscular Volume 91 fL (79-100) Mean Corpuscular Hemoglobin 32 pg (25-35) Mean Corpuscular Hemoglobin Concent 35 g/dL (31-37) Red Cell Distribution Width 16.0 % (11.5-14.5) Platelet Count 139 x10^3/uL (140-400) Neutrophils (%) (Auto) 76 % (31-73) Lymphocytes (%) (Auto) 11 % (24-48) Monocytes (%) (Auto) 7 % (0-9) Eosinophils (%) (Auto) 5 % (0-3) Basophils (%) (Auto) 1 % (0-3) Neutrophils # (Auto) 5.8 x10^3uL (1.8-7.7) Lymphocytes # (Auto) 0.8 x10^3/uL (1.0-4.8) Monocytes # (Auto) 0.5 x10^3/uL (0.0-1.1) Eosinophils # (Auto) 0.4 x10^3/uL (0.0-0.7) Basophils # (Auto) 0.1 x10^3/uL (0.0-0.2) Sodium Level 145 mmol/L (136-145) Potassium Level 4.4 mmol/L (3.5-5.1) Chloride Level 110 mmol/L (98-107) Carbon Dioxide Level 25 mmol/L (21-32) Anion Gap 10 (6-14) Blood Urea Nitrogen 31 mg/dL (8-26) Creatinine 1.9 mg/dL (0.7-1.3) Estimated GFR (Cockcroft-Gault) 36.0 Glucose Level 170 mg/dL (70-99) Calcium Level 8.9 mg/dL (8.5-10.1) Phosphorus Level 4.1 mg/dL (2.6-4.7) Albumin 2.3 g/dL (3.4-5.0) Test 02/08/17 11:52 Glucose (Fingerstick) 150 mg/dL (70-99) Microbiology 02/02/17 Blood Culture - Final, Complete NO GROWTH AFTER 5 DAYS 02/02/17 Gram Stain - Final, Complete Medications Current Medications Fentanyl Citrate (Fentanyl 2ml Vial) 50 mcg 1X ONCE IM Last administered on 15:59; Start 02/02/17 at 16:00; Stop 02/02/17 at 16:01; Status DC Vancomycin HCl (Vanco Per Pharmacy) 1 each PRN DAILY PRN MC SEE COMMENTS Last administered on 02/04/17 18:14; Start 02/02/17 at 19:06; Stop 02/05/17 at 09:05 ; Status DC Piperacillin Sod/ Tazobactam Sod 4.5 gm/Sodium Chloride 100 ml @ 200 mls/hr Q6HRS IV ; Start 02/03/17 at 00:00; Status UNV Vancomycin HCl 2 gm/Sodium Chloride 500 ml @ 250 mls/hr 1X ONCE IV Last administered on 02/02/17 18:13; Start 02/02/17 at 17:00; Stop 02/02/17 at 18:59 ; Status DC Piperacillin Sod/ Tazobactam Sod 4.5 gm/Sodium Chloride 100 ml @ 200 mls/hr 1X ONCE IV Last administered on 02/02/17 17:40; Start 02/02/17 at 17:00; Stop 02/02/17 at 17:29; Status DC Diphtheria/ Tetanus/Acell Pertussis (Boostrix) 0.5 ml ONCE ONCE VAX IM Last administered on 02/02/17 18:35; Start 02/02/17 at 18:30; Stop 02/02/17 at 18:31 ; Status DC Fentanyl Citrate (Fentanyl 2ml Vial) 75 mcg 1X ONCE IV Last administered on 18:33; Start 02/02/17 at 18:30; Stop 02/02/17 at 18:31; Status DC Labetalol HCl (Normodyne) 10 mg PRN Q2HR PRN IVP 160/100; Start 02/02/17 at 19: 00 Atorvastatin Calcium (Lipitor) 20 mg QHS PO Last administered on 02/07/17 21: 47; Start 02/02/17 at 21:00 Vitamin D (Vitamin D3) 1,000 unit DAILY PO Last administered on 02/08/17 08:35 ; Start 02/03/17 at 09:00 Losartan Potassium (Cozaar) 50 mg DAILY PO Last administered on 02/03/17 10:19 ; Start 02/03/17 at 09:00; Stop 02/03/17 at 11:41; Status DC Metformin HCl (Glucophage) 500 mg BID PO ; Start 02/02/17 at 21:00; Stop at 21:00; Status DC Tamsulosin HCl (Flomax) 0.4 mg HS PO Last administered on 02/07/17 21:47; Start 02/02/17 at 21:00 Citalopram Hydrobromide (CeleXA) 40 mg DAILY PO Last administered on 02/08/17 08:35; Start 02/03/17 at 09:00 Pantoprazole Sodium (Protonix) 40 mg DAILYAC PO Last administered on 02/08/17 05:16; Start 02/03/17 at 07:30 Gabapentin (Neurontin) 300 mg BID PO Last administered on 02/08/17 08:35; Start 02/02/17 at 21:00 Insulin Aspart (NovoLOG) 23 units TIDAC SQ ; Start 02/03/17 at 07:30; Stop 02/03 at 09:53; Status DC Fentanyl Citrate (Fentanyl 2ml Vial) 50 mcg PRN Q2HR PRN IV pain; Start at 19:00; Stop 02/06/17 at 16:12; Status DC Oxycodone/ Acetaminophen (Percocet 5/325) 1 tab PRN QID PRN PO pain; Start at 19:00; Stop 02/05/17 at 09:31; Status DC Insulin Aspart (NovoLOG) 0-9 UNITS TIDWMEALS SQ Last administered on 02/08/17 08:41; Start 02/03/17 at 08:00 Dextrose (Dextrose 50%-Water Syringe) 12.5 gm PRN Q15MIN PRN IV SEE COMMENTS; Start 02/02/17 at 19:00; Stop 02/02/17 at 21:51; Status DC Sodium Chloride 1,000 ml @ 100 mls/hr 1X ONCE IV Last administered on 19:30; Start 02/02/17 at 19:00; Stop 02/03/17 at 04:59; Status DC Fentanyl Citrate (Fentanyl 2ml Vial) 25 mcg PRN Q5MIN PRN IV MILD PAIN; Start 02/02/17 at 19:15; Stop 02/03/17 at 19:14; Status DC Fentanyl Citrate (Fentanyl 2ml Vial) 50 mcg PRN Q5MIN PRN IV MODERATE PAIN; Start 02/02/17 at 19:15; Stop 02/03/17 at 19:14; Status DC Ringer's Solution 1,000 ml @ 30 mls/hr Q24H IV Last administered on 02/02/17 19:33; Start 02/02/17 at 19:05; Stop 02/03/17 at 07:04; Status DC Lidocaine HCl 2 ml PRN 1X PRN ID PRIOR TO IV START; Start 02/02/17 at 19:15; Stop 02/03/17 at 19:14; Status DC Prochlorperazine Edisylate (Compazine) 5 mg PACU PRN PRN IV NAUSEA, MRX1 Last administered on 02/02/17 21:40; Start 02/02/17 at 19:15; Stop 02/03/17 at 19:14 ; Status DC Vancomycin HCl 1.75 gm/Sodium Chloride 500 ml @ 250 mls/hr Q24H IV Last administered on 02/03/17 18:06; Start 02/03/17 at 18:00; Stop 02/04/17 at 18:12 ; Status DC Vancomycin HCl 1 each 1X ONCE MC ; Start 02/04/17 at 17:30; Stop 02/04/17 at 17 :31; Status DC Piperacillin Sod/ Tazobactam Sod 3.375 gm/Sodium Chloride 50 ml @ 100 mls/hr Q6HRS IV Last administered on 02/08/17t 12:37; Start 02/03/17 at 00:00 Dexamethasone Sodium Phosphate (Decadron) 20 mg STK-MED ONCE .ROUTE ; Start at 19:30; Stop 02/02/17 at 19:31; Status DC Ondansetron HCl (Zofran) 4 mg STK-MED ONCE .ROUTE ; Start 02/02/17 at 19:30; Stop 02/02/17 at 19:31; Status DC Propofol 20 ml @ As Directed STK-MED ONCE IV ; Start 02/02/17 at 19:30; Stop at 19:31; Status DC Lidocaine HCl (Lidocaine Pf 2% Vial) 5 ml STK-MED ONCE .ROUTE ; Start 02/02/17 at 19:30; Stop 02/02/17 at 19:31; Status DC Desflurane (Suprane) 30 ml STK-MED ONCE IH ; Start 02/02/17 at 19:30; Stop 02/02 at 19:31; Status DC Fentanyl Citrate (Fentanyl 2ml Vial) 100 mcg STK-MED ONCE .ROUTE ; Start at 19:30; Stop 02/02/17 at 19:31; Status DC Bupivacaine HCl/ Epinephrine Bitart (Sensorcaine-Epi 0.25%-1:914114 Mpf) 30 ml STK-MED ONCE .ROUTE ; Start 02/02/17 at 19:33; Stop 02/02/17 at 19:34; Status DC Ondansetron HCl (Zofran) 4 mg PRN Q8HRS PRN IV NAUSEA/VOMITING; Start 02/02/17 at 19:45; Stop 02/03/17 at 19:44; Status DC Fentanyl Citrate (Fentanyl 2ml Vial) 50 mcg PRN Q2HR PRN IV PAIN; Start at 19:45; Stop 02/03/17 at 19:44; Status DC Oxycodone HCl (Roxicodone) 5 mg PRN Q3HRS PRN PO MODERATE PAIN; Start 02/02/17 at 21:45 Fentanyl Citrate (Fentanyl 2ml Vial) 25 mcg PRN Q1HR PRN IV SEVERE PAIN; Start 02/02/17 at 21:45 Senna/Docusate Sodium (Senna Plus) 1 tab DAILY PO Last administered on 08:35; Start 02/03/17 at 09:00 Polyethylene Glycol (miraLAX PACKET) 17 gm PRN DAILY PRN PO CONSTIPATION Last administered on 02/04/17 09:08; Start 02/02/17 at 21:45 Vancomycin HCl 1 gm/Sodium Chloride 250 ml @ 250 mls/hr Q12H IV ; Start at 06:00; Stop 02/03/17 at 06:59; Status Cancel Ondansetron HCl (Zofran) 4 mg PRN Q4HRS PRN IV NAUSEA/VOMITING; Start 02/02/17 at 21:45 Aspirin (Omkar Aspirin) 325 mg [id number] PO Last administered on 02/08/17 08: 35; Start 02/03/17 at 08:00 Magnesium Hydroxide (Milk Of Magnesia) 2,400 mg 1X PRN PRN PO CONSTIPATION; Start 02/03/17 at 06:00; Stop 02/04/17 at 05:59; Status DC Bisacodyl (Dulcolax Supp) 10 mg 1X PRN PRN OR CONSTIPATION; Start 02/03/17 at 16:00; Stop 02/04/17 at 15:59; Status DC Acetaminophen/ Hydrocodone Bitart (Lortab 7.5/325) 1 tab PRN Q4HRS PRN PO MODERATE PAIN Last administered on 02/08/17 05:17; Start 02/02/17 at 21:45 Acetaminophen/ Hydrocodone Bitart (Lortab 7.5/325) 2 tab PRN Q4HRS PRN PO SEVERE PAIN; Start 02/02/17 at 21:45 Dextrose (Dextrose 50%-Water Syringe) 12.5 gm PRN Q15MIN PRN IV SEE COMMENTS; Start 02/02/17 at 21:45 Prochlorperazine Edisylate (Compazine) 10 mg STK-MED ONCE .ROUTE ; Start at 21:58; Stop 02/02/17 at 21:59; Status DC Haloperidol Lactate (Haldol) 2.5 mg PRN Q6HRS PRN IVP MODERATE AGITATION Last administered on 02/03/17 05:47; Start 02/02/17 at 22:45 Haloperidol Lactate (Haldol) 5 mg PRN Q6HRS PRN IVP SEVERE AGITATION; Start at 22:45; Stop 02/03/17 at 09:53; Status DC Lorazepam (Ativan) 1 mg PRN Q4HRS PRN PO MODERATE ANXIETY / AGITATION; Start at 22:45 Lorazepam (Ativan) 2 mg PRN Q4HRS PRN IV SEVERE ANXIETY / AGITATION; Start at 22:45; Stop 02/03/17 at 12:58; Status DC Insulin Aspart (NovoLOG) 15 units TIDAC SQ Last administered on 02/08/17 12:41 ; Start 02/03/17 at 10:00 Insulin Detemir (Levemir) 20 units QHS SQ Last administered on 02/07/17 21:54 ; Start 02/03/17 at 21:00 Diphenhydramine HCl (Benadryl) 25 mg 1X PRN PRN PO prior to blood transfusion; Start 02/03/17 at 10:30; Stop 02/04/17 at 10:29; Status DC Darbepoetin Robert (Aranesp) 60 mcg [id number] SQ Last administered on 02/03/17 22 :05; Start 02/03/17 at 21:00 Sodium Chloride 1,000 ml @ 75 mls/hr [id number] IV Last administered on 18:04; Start 02/03/17 at 11:30; Stop 02/04/17 at 08:05; Status DC Fentanyl (Duragesic 25mcg/ Hr Patch) 1 patch [id number] TD Last administered on 08:00; Start 02/04/17 at 08:00 Senna/Docusate Sodium (Senna Plus) 1 tab BID PO Last administered on 02/04/17 21:49; Start 02/04/17 at 10:00; Stop 02/05/17 at 09:31; Status DC Docusate Sodium (Colace) 100 mg BID PO Last administered on 02/08/17 08:35; Start 02/04/17 at 10:00 Magnesium Hydroxide (Milk Of Magnesia) 2,400 mg PRN Q12HR PRN PO CONSTIPATION; Start 02/04/17 at 09:15 Sodium Chloride 1,000 ml @ 75 mls/hr [id number] IV Last administered on 05:19; Start 02/04/17 at 10:45; Stop 02/08/17 at 13:28; Status DC Vancomycin HCl 1.5 gm/Sodium Chloride 500 ml @ 250 mls/hr Q24H IV Last administered on 02/04/17 22:47; Start 02/04/17 at 23:00; Stop 02/05/17 at 09:05 ; Status DC Alteplase, Recombinant (Cathflo) 2 mg 1X ONCE INT CAT Last administered on 06:32; Start 02/05/17 at 06:15; Stop 02/05/17 at 06:16; Status DC Phenylephrine HCl (Hemorrhoidal) 1 supp PRN Q12HR PRN OR RECTAL PAIN; Start at 12:15 Magnesium Sulfate/ Dextrose 50 ml @ 25 mls/hr PRN DAILY PRN IV for Mag < 1.7 on am labs; Start 02/08/17 at 13:30 Active Scripts Active Reported Humalog (Insulin Lispro) 100 Unit/1 Ml Cartridge 23 Unit SQ TIDAC Vitamin D3 (Cholecalciferol (Vitamin D3)) 1,000 Unit Tablet 1 Tab PO DAILY Nexium Capsule (Esomeprazole Magnesium) 40 Mg Capsule.dr 1 Cap PO DAILY Losartan Potassium 50 Mg Tablet 50 Mg PO DAILY Gabapentin 300 Mg Capsule 300 Mg PO BID Celebrex (Celecoxib) 200 Mg Capsule 200 Mg PO BID 30 Days Citalopram Hbr (Citalopram Hydrobromide) 40 Mg Tablet 40 Mg PO DAILY Lipitor (Atorvastatin Calcium) 20 Mg Tablet 20 Mg PO QHS Flomax (Tamsulosin Hcl) 0.4 Mg Cap.er.24h 0.4 Mg PO HS Metformin Hcl 500 Mg Tablet 500 Mg PO BID Plavix (Clopidogrel Bisulfate) 75 Mg Tablet 75 Mg PO DAILY Vitals/I & O Vital Sign - Last 24 Hours 02/07/17 02/07/17 02/07/17 02/07/17 14:58 19:00 20:00 23:00 Temp 98.3 97.7 95.5 98.3 97.7 95.5 Pulse 75 81 75 Resp 18 20 20 B/P (MAP) 130/78 (95) 138/77 (97) 123/71 (88) Pulse Ox 96 95 96 O2 Delivery Room Air Room Air Room Air Room Air 02/08/17 02/08/17 02/08/17 02/08/17 03:00 05:17 07:00 08:00 Temp 97.5 98.6 97.5 98.6 Pulse 78 80 Resp 20 20 20 B/P (MAP) 138/80 (99) 145/95 (112) Pulse Ox 98 98 97 O2 Delivery Room Air Room Air Room Air Room Air 02/08/17 11:03 Temp 97.9 97.9 Pulse 79 Resp 20 B/P (MAP) 120/75 (90) Pulse Ox 98 O2 Delivery Room Air Intake and Output 02/07/17 02/07/17 02/08/17 15:00 23:00 07:00 Intake Total 540 ml 180 ml 200 ml Output Total 2025 ml 800 ml 1200 ml Balance -1485 ml -620 ml -1000 ml DARYL WANG MD Feb 08, 2017 14:49
[2017-02-08 15:00] VITALS: BP 152/86
[2017-02-08 19:00] VITALS: BP 149/74
[2017-02-08] MEDS: ATORVASTATIN CALCIUM 20 MG TABLET PO SCH (21:18)
[2017-02-08] MEDS: TAMSULOSIN 0.4 MG CAP.ER.24H. PO SCH (21:18)
[2017-02-08] MEDS: INSULIN DETEMIR 300 UNITS/3 ML INSULN.PEN. SQ SCH (21:31)
[2017-02-08 23:00] VITALS: BP 164/91
[2017-02-09 03:05] VITALS: BP 140/80
[2017-02-09] MEDS: HYDROcodone/APAP 7.5/325MG 1 TAB TABLET PO PRN ×3 (03:43→22:27)
[2017-02-09 07:00] VITALS: BP 131/62
[2017-02-09 08:27] LABS: ALBUMIN 2.6 g/dL (3.4-5.0); CALCIUM 9.1 mg/dL (8.5-10.1); CREATININE 1.8 mg/dL (0.7-1.3); GFR 38.3; POTASSIUM 4.5 mmol/L (3.5-5.1)
[2017-02-09] MEDS: SENNOSIDES/DOCUSATE 8.6/50MG TABLET. PO SCH (09:00)
[2017-02-09] MEDS: INSULIN ASPART 300 UNITS/3 ML INSULN.PEN SQ SCH ×6 (09:04→18:34)
--- NOTE | 2017-02-09 09:15 | PDOC ---
Infectious Disease Note Subjective Subjective Feeling well Pain controlled ROS ROS GEN: Denies fevers, chills, sweats HEENT: Denies blurred vision, sore throat CV: Denies chest pain RESP: Denies shortness of air, cough GI: Denies n/v/d NEURO: Denies confusion, dizziness MSK: Denies weakness, joint pain/swelling Vital Sign Vital Signs Vital Signs Date Time Temp Pulse Resp B/P (MAP) Pulse Ox O2 Delivery O2 Flow Rate FiO2 02/09/17 04:57 Room Air 02/09/17 03:05 96.4 87 20 140/80 (100) 96 96.4 Physical Exam PHYSICAL EXAM GENERAL: NAD , coop, on side of bed HEENT: OC/OP clear NECK: Supple LUNGS: Clear HEART: S1S2, no gallop, no murmur appreciated ABD: Obese, soft, NT : Zelaya EXT: Left heel with vac and dressed. Right foot with ex f-ix. 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 clean HDC. clean Labs Lab Laboratory Tests Test 02/08/17 11:52 02/08/17 16:56 02/08/17 20:13 02/09/17 05:00 Glucose (Fingerstick) 150 mg/dL (70-99) 109 mg/dL (70-99) 209 mg/dL (70-99) Hemoglobin 8.3 g/dL (13.0-17.5) Sodium Level 144 mmol/L (136-145) Potassium Level 4.5 mmol/L (3.5-5.1) Chloride Level 109 mmol/L (98-107) Carbon Dioxide Level 25 mmol/L (21-32) Anion Gap 10 (6-14) Blood Urea Nitrogen 30 mg/dL (8-26) Creatinine 1.8 mg/dL (0.7-1.3) Estimated GFR (Cockcroft-Gault) 38.3 Glucose Level 164 mg/dL (70-99) Calcium Level 9.1 mg/dL (8.5-10.1) Phosphorus Level 4.0 mg/dL (2.6-4.7) Magnesium Level 1.2 mg/dL (1.8-2.4) Albumin 2.6 g/dL (3.4-5.0) Test 02/09/17 07:48 Glucose (Fingerstick) 154 mg/dL (70-99) Objective Assessment Left ankle abscess s/p I and D, 02/02, Proteus (R tetra), PSA ( R ticarcillin) , E. faecalis-PCNS & MSSA Bi malleolar ankle fracture s/p ext fixation, 02/02 Right calcaneal wound with vac in place -h/o gangrenous ulcer of right heel. s/p excisional debridement skin and subcutaneous tissue, 01/05. No intra-op cultures were obtained -MRI from 01/02 showed chronic neuropathic arthropathy changes with hardware in place; no definite evidence of acute osteo noted but could not r/o with elevated ESR and WBC at the time. BRYCE/CKD. Cr clearance improving, off HD since 01/30 Plan Plan of Care ? D/c zelaya/HD cath Cont Zosyn Await further Ortho eval. Will have another call placed supportive care Wound care RADHA SILVA MD Feb 09, 2017 09:15
[2017-02-09] MEDS: ASPIRIN 325 MG TABLET PO SCH (10:53)
[2017-02-09] MEDS: CITALOPRAM 20 MG TABLET. PO SCH (10:53)
[2017-02-09] MEDS: DOCUSATE SODIUM 100 MG CAPSULE. PO SCH ×2 (10:53→22:28)
[2017-02-09] MEDS: PANTOPRAZOLE 40 MG TABLET.DR. PO SCH (10:54)
[2017-02-09] MEDS: GABAPENTIN 300 MG CAPSULE. PO SCH ×2 (10:54→22:28)
[2017-02-09] MEDS: CHOLECALCIFEROL (VITAMIN D3) 1,000 UNIT TABLET PO SCH (10:54)
[2017-02-09 10:58] VITALS: BP 181/94
[2017-02-09] MEDS: PIPERACILLIN/TAZOBACTAM 3.375 GM in IV NORMAL SALINE 50ML 50 ML IV SCH ×5 (12:00→18:20)
--- NOTE | 2017-02-09 13:47 | PDOC ---
SUBJECTIVE ROS BRYCE/ ATN DOing OK, Wondering where he will be going at D/c CVS: no Orthopnea, no CP RESP: no SOB, no ROMAN GI: no Nausea, no Vomiting : no Dysuria, no Urgency OBJECTIVE Vital Signs Vital Signs Date Time Temp Pulse Resp B/P (MAP) Pulse Ox O2 Delivery O2 Flow Rate FiO2 02/09/17 10:58 97.7 94 20 181/94 (123) 97 Room Air 97.7 I & 0 Intake and Output 02/10/17 07:00 Intake Total 180 ml Balance 180 ml Intake Oral 180 ml PHYSICAL EXAM Physical Exam GEN: Awake, Oriented x 3, In no distress EYES: Vision Unchanged, Conjunctiva Normal EN: No EN Drainage, Mucous Membranes moist NECK: no JVD, no JVP, Supple, no Thyromegaly - thick neck CVS: S1S2, no Murmur, No Gallop, No Rub,+ Left Ankle Edema RESP: no Rales, no Rhonchi,no Acc. Muscle Use GI: BS + ve, NO Bruit, Non Tender, Non Distended - obese : no CVA tenderness, no Suprapubic Tenderness DIAGNOSIS/ASSESSMENT Assessment & Plan BRYCE/ ATN - appears to be recovering for now. Current fluid and E-lyte status does not necessitate emergent need for dialysis. Will re-evaluate for dialysis in the am ANEMIA; Aranap as ordered, Transfuse as needed HTN: Current BP meds as reviewed. See orders for changes. BONE & MINERAL: may need to liberalize diet soon Low Mag - replace per protocol D/c Permacath prior to D/c COMMENT/RELEVANT DATA Meds Current Medications Medications (Trade) Dose Ordered Sig/Serenity Start Time Stop Time Status Last Admin Dose Admin Acetaminophen/ Hydrocodone Bitart (Lortab 7.5/325) 2 tab PRN Q4HRS PRN 02/02/17 21:45 Alteplase, Recombinant (Cathflo) 2 mg 1X ONCE 02/05/17 06:15 02/05/17 06:16 DC 02/05/17 06:32 2 MG Aspirin (Omkar Aspirin) 325 mg DAILYWBKFT 02/03/17 08:00 02/09/17 10:53 325 MG Atorvastatin Calcium (Lipitor) 20 mg QHS 02/02/17 21:00 02/08/17 21:18 20 MG Bisacodyl (Dulcolax Supp) 10 mg 1X PRN PRN 02/03/17 16:00 02/04/17 15:59 DC Bupivacaine HCl/ Epinephrine Bitart (Sensorcaine-Epi 0.25%-1:949625 Mpf) 30 ml STK-MED ONCE 02/02/17 19:33 02/02/17 19:34 DC Citalopram Hydrobromide (CeleXA) 40 mg DAILY 02/03/17 09:00 02/09/17 10:53 40 MG Darbepoetin Robert (Aranesp) 60 mcg WEEKLYHS 02/03/17 21:00 02/03/17 22:05 60 MCG Desflurane (Suprane) 30 ml STK-MED ONCE 02/02/17 19:30 02/02/17 19:31 DC Dexamethasone Sodium Phosphate (Decadron) 20 mg STK-MED ONCE 02/02/17 19:30 02/02/17 19:31 DC Dextrose (Dextrose 50%-Water Syringe) 12.5 gm PRN Q15MIN PRN 02/02/17 21:45 Diphenhydramine HCl (Benadryl) 25 mg 1X PRN PRN 02/03/17 10:30 02/04/17 10:29 DC Diphtheria/ Tetanus/Acell Pertussis (Boostrix) 0.5 ml ONCE ONCE 02/02/17 18:30 02/02/17 18:31 DC 02/02/17 18:35 0.5 ML Docusate Sodium (Colace) 100 mg BID 02/04/17 10:00 02/09/17 10:53 100 MG Fentanyl (Duragesic 25mcg/ Hr Patch) 1 patch Q3DAYS 02/04/17 08:00 02/07/17 08:00 1 PATCH Fentanyl Citrate (Fentanyl 2ml Vial) 25 mcg PRN Q1HR PRN 02/02/17 21:45 Gabapentin (Neurontin) 300 mg BID 02/02/17 21:00 02/09/17 10:54 300 MG Haloperidol Lactate (Haldol) 5 mg PRN Q6HRS PRN 02/02/17 22:45 02/03/17 09:53 DC Insulin Aspart (NovoLOG) 15 units TIDAC 02/03/17 10:00 02/09/17 09:05 15 UNITS Insulin Detemir (Levemir) 20 units QHS 02/03/17 21:00 02/08/17 21:31 20 UNITS Labetalol HCl (Normodyne) 10 mg PRN Q2HR PRN 02/02/17 19:00 Lidocaine HCl (Lidocaine Pf 2% Vial) 5 ml STK-MED ONCE 02/02/17 19:30 02/02/17 19:31 DC Lorazepam (Ativan) 2 mg PRN Q4HRS PRN 02/02/17 22:45 02/03/17 12:58 DC Losartan Potassium (Cozaar) 50 mg DAILY 02/03/17 09:00 02/03/17 11:41 DC 02/03/17 10:19 50 MG Magnesium Hydroxide (Milk Of Magnesia) 2,400 mg PRN Q12HR PRN 02/04/17 09:15 Magnesium Sulfate/ Dextrose 50 ml @ 25 mls/hr PRN DAILY PRN 02/08/17 13:30 Metformin HCl (Glucophage) 500 mg BID 02/02/17 21:00 02/02/17 21:00 DC Ondansetron HCl (Zofran) 4 mg PRN Q4HRS PRN 02/02/17 21:45 Oxycodone HCl (Roxicodone) 5 mg PRN Q3HRS PRN 02/02/17 21:45 Oxycodone/ Acetaminophen (Percocet 5/325) 1 tab PRN QID PRN 02/02/17 19:00 02/05/17 09:31 DC Pantoprazole Sodium (Protonix) 40 mg DAILYAC 02/03/17 07:30 02/09/17 10:54 40 MG Phenylephrine HCl (Hemorrhoidal) 1 supp PRN Q12HR PRN 02/06/17 12:15 Piperacillin Sod/ Tazobactam Sod 3.375 gm/Sodium Chloride 50 ml @ 100 mls/hr Q6HRS 02/03/17 00:00 02/09/17 00:00 100 MLS/HR Piperacillin Sod/ Tazobactam Sod 4.5 gm/Sodium Chloride 100 ml @ 200 mls/hr 1X ONCE 02/02/17 17:00 02/02/17 17:29 DC 02/02/17 17:40 200 MLS/HR Polyethylene Glycol (miraLAX PACKET) 17 gm PRN DAILY PRN 8/22/17 21:45 02/04/17 09:08 17 GM Prochlorperazine Edisylate (Compazine) 10 mg STK-MED ONCE 02/02/17 21:58 02/02/17 21:59 DC Propofol 20 ml @ As Directed STK-MED ONCE 02/02/17 19:30 02/02/17 19:31 DC Ringer's Solution 1,000 ml @ 30 mls/hr Q24H 02/02/17 19:05 02/03/17 07:04 DC 02/02/17 19:33 30 MLS/HR Senna/Docusate Sodium (Senna Plus) 1 tab BID 02/04/17 10:00 02/05/17 09:31 DC 02/04/17 21:49 1 TAB Sodium Chloride 1,000 ml @ 75 mls/hr [id number] 02/04/17 10:45 02/08/17 13:28 DC 02/08/17 05:19 75 MLS/HR Tamsulosin HCl (Flomax) 0.4 mg HS 02/02/17 21:00 02/08/17 21:18 0.4 MG Vancomycin HCl (Vanco Per Pharmacy) 1 each PRN DAILY PRN 02/02/17 19:06 02/05/17 09:05 DC 02/04/17 18:14 1 EACH Vancomycin HCl 1.5 gm/Sodium Chloride 500 ml @ 250 mls/hr Q24H 02/04/17 23:00 02/05/17 09:05 DC 02/04/17 22:47 250 MLS/HR Vancomycin HCl 1.75 gm/Sodium Chloride 500 ml @ 250 mls/hr Q24H 02/03/17 18:00 02/04/17 18:12 DC 02/03/17 18:06 250 MLS/HR Vancomycin HCl 1 gm/Sodium Chloride 250 ml @ 250 mls/hr Q12H 02/03/17 06:00 02/03/17 06:59 Cancel Vancomycin HCl 2 gm/Sodium Chloride 500 ml @ 250 mls/hr 1X ONCE 02/02/17 17:00 02/02/17 18:59 DC 02/02/17 18:13 250 MLS/HR Vitamin D (Vitamin D3) 1,000 unit DAILY 02/03/17 09:00 02/09/17 10:54 1,000 UNIT Lab Laboratory Tests Test 02/08/17 16:56 02/08/17 20:13 02/09/17 05:00 02/09/17 07:48 Glucose (Fingerstick) 109 mg/dL (70-99) 209 mg/dL (70-99) 154 mg/dL (70-99) Hemoglobin 8.3 g/dL (13.0-17.5) Sodium Level 144 mmol/L (136-145) Potassium Level 4.5 mmol/L (3.5-5.1) Chloride Level 109 mmol/L (98-107) Carbon Dioxide Level 25 mmol/L (21-32) Anion Gap 10 (6-14) Blood Urea Nitrogen 30 mg/dL (8-26) Creatinine 1.8 mg/dL (0.7-1.3) Estimated GFR (Cockcroft-Gault) 38.3 Glucose Level 164 mg/dL (70-99) Calcium Level 9.1 mg/dL (8.5-10.1) Phosphorus Level 4.0 mg/dL (2.6-4.7) Magnesium Level 1.2 mg/dL (1.8-2.4) Albumin 2.6 g/dL (3.4-5.0) Test 02/09/17 11:41 Glucose (Fingerstick) 181 mg/dL (70-99) TERRIE RUIZ MD Feb 09, 2017 13:47
--- NOTE | 2017-02-09 13:54 | PDOC ---
PROGRESS NOTES Chief Complaint Chief Complaint 1. Left ankle fx, left ankle necrotizing fasciitis with oozing wound/bloody dc s/p External fixation 2. BRYCE on CKD 3. ESRD NEW HD 3. DM 2 insulin req, uncontrolled 4. Morbid Obesity BMI 46 5. Anemia, normocytic possible of CKD 6. Allergy/adverse effect to morphine (loopy) 7. HTN, Depression CVA, dyslipidemia - - all chronc stable History of Present Illness History of Present Illness mentally OK, upset about his wifes recent stroke, [facility], he would like to rehab there if possible New HD - has been off now > 1 week. cont current, good urine output But creat stable at 2.0 Renal note reviewed, might be able to get off HD and dc the HD cath Plans of dc zelaya cath soon too SN[facility] resident at [facility] sitting up well Vitals Vitals Vital Signs Date Time Temp Pulse Resp B/P (MAP) Pulse Ox O2 Delivery O2 Flow Rate FiO2 02/09/17 10:58 97.7 94 20 181/94 (123) 97 Room Air 97.7 Physical Exam General: Alert, Oriented X3, Cooperative, No acute distress Heart: Regular rate, Normal S1 Lungs: Clear Abdomen: Normal bowel sounds, Soft, No tenderness Extremities: No clubbing Skin: No rashes, No breakdown, No significant lesion, Other (left ankle swelling and pain and limited ROM with palpable sift tissue sweliing, some crepitus appreciable,with external fixaiton. right ankle has wound vac on. ) Labs LABS Laboratory Tests Test 02/08/17 16:56 02/08/17 20:13 02/09/17 05:00 02/09/17 07:48 Glucose (Fingerstick) 109 mg/dL (70-99) 209 mg/dL (70-99) 154 mg/dL (70-99) Hemoglobin 8.3 g/dL (13.0-17.5) Sodium Level 144 mmol/L (136-145) Potassium Level 4.5 mmol/L (3.5-5.1) Chloride Level 109 mmol/L (98-107) Carbon Dioxide Level 25 mmol/L (21-32) Anion Gap 10 (6-14) Blood Urea Nitrogen 30 mg/dL (8-26) Creatinine 1.8 mg/dL (0.7-1.3) Estimated GFR (Cockcroft-Gault) 38.3 Glucose Level 164 mg/dL (70-99) Calcium Level 9.1 mg/dL (8.5-10.1) Phosphorus Level 4.0 mg/dL (2.6-4.7) Magnesium Level 1.2 mg/dL (1.8-2.4) Albumin 2.6 g/dL (3.4-5.0) Test 02/09/17 11:41 Glucose (Fingerstick) 181 mg/dL (70-99) Assessment and Plan Assessmemt and Plan Problems Medical Problems: (1) Dislocation of tibia, upper, lateral Status: Acute (2) Fractured fibula Status: Acute (3) Necrotizing fasciitis Status: Acute Problems: Comment Review of Relevant I have reviewed the following items lauryn (where applicable) has been applied. Labs Laboratory Tests Test 02/07/17 16:14 02/07/17 20:57 02/08/17 05:15 02/08/17 07:27 Glucose (Fingerstick) 148 mg/dL (70-99) 184 mg/dL (70-99) 155 mg/dL (70-99) White Blood Count 7.7 x10^3/uL (4.0-11.0) Red Blood Count 2.54 x10^6/uL (4.30-5.70) Hemoglobin 8.0 g/dL (13.0-17.5) Hematocrit 23.1 % (39.0-53.0) Mean Corpuscular Volume 91 fL (79-100) Mean Corpuscular Hemoglobin 32 pg (25-35) Mean Corpuscular Hemoglobin Concent 35 g/dL (31-37) Red Cell Distribution Width 16.0 % (11.5-14.5) Platelet Count 139 x10^3/uL (140-400) Neutrophils (%) (Auto) 76 % (31-73) Lymphocytes (%) (Auto) 11 % (24-48) Monocytes (%) (Auto) 7 % (0-9) Eosinophils (%) (Auto) 5 % (0-3) Basophils (%) (Auto) 1 % (0-3) Neutrophils # (Auto) 5.8 x10^3uL (1.8-7.7) Lymphocytes # (Auto) 0.8 x10^3/uL (1.0-4.8) Monocytes # (Auto) 0.5 x10^3/uL (0.0-1.1) Eosinophils # (Auto) 0.4 x10^3/uL (0.0-0.7) Basophils # (Auto) 0.1 x10^3/uL (0.0-0.2) Sodium Level 145 mmol/L (136-145) Potassium Level 4.4 mmol/L (3.5-5.1) Chloride Level 110 mmol/L (98-107) Carbon Dioxide Level 25 mmol/L (21-32) Anion Gap 10 (6-14) Blood Urea Nitrogen 31 mg/dL (8-26) Creatinine 1.9 mg/dL (0.7-1.3) Estimated GFR (Cockcroft-Gault) 36.0 Glucose Level 170 mg/dL (70-99) Calcium Level 8.9 mg/dL (8.5-10.1) Phosphorus Level 4.1 mg/dL (2.6-4.7) Albumin 2.3 g/dL (3.4-5.0) Test 02/08/17 11:52 02/08/17 16:56 02/08/17 20:13 02/09/17 05:00 Glucose (Fingerstick) 150 mg/dL (70-99) 109 mg/dL (70-99) 209 mg/dL (70-99) Hemoglobin 8.3 g/dL (13.0-17.5) Sodium Level 144 mmol/L (136-145) Potassium Level 4.5 mmol/L (3.5-5.1) Chloride Level 109 mmol/L (98-107) Carbon Dioxide Level 25 mmol/L (21-32) Anion Gap 10 (6-14) Blood Urea Nitrogen 30 mg/dL (8-26) Creatinine 1.8 mg/dL (0.7-1.3) Estimated GFR (Cockcroft-Gault) 38.3 Glucose Level 164 mg/dL (70-99) Calcium Level 9.1 mg/dL (8.5-10.1) Phosphorus Level 4.0 mg/dL (2.6-4.7) Magnesium Level 1.2 mg/dL (1.8-2.4) Albumin 2.6 g/dL (3.4-5.0) Test 02/09/17 07:48 02/09/17 11:41 Glucose (Fingerstick) 154 mg/dL (70-99) 181 mg/dL (70-99) Laboratory Tests Test 02/08/17 16:56 02/08/17 20:13 02/09/17 05:00 02/09/17 07:48 Glucose (Fingerstick) 109 mg/dL (70-99) 209 mg/dL (70-99) 154 mg/dL (70-99) Hemoglobin 8.3 g/dL (13.0-17.5) Sodium Level 144 mmol/L (136-145) Potassium Level 4.5 mmol/L (3.5-5.1) Chloride Level 109 mmol/L (98-107) Carbon Dioxide Level 25 mmol/L (21-32) Anion Gap 10 (6-14) Blood Urea Nitrogen 30 mg/dL (8-26) Creatinine 1.8 mg/dL (0.7-1.3) Estimated GFR (Cockcroft-Gault) 38.3 Glucose Level 164 mg/dL (70-99) Calcium Level 9.1 mg/dL (8.5-10.1) Phosphorus Level 4.0 mg/dL (2.6-4.7) Magnesium Level 1.2 mg/dL (1.8-2.4) Albumin 2.6 g/dL (3.4-5.0) Test 02/09/17 11:41 Glucose (Fingerstick) 181 mg/dL (70-99) Microbiology 02/02/17 Blood Culture - Final, Complete NO GROWTH AFTER 5 DAYS 02/02/17 Gram Stain - Final, Complete Medications Current Medications Fentanyl Citrate (Fentanyl 2ml Vial) 50 mcg 1X ONCE IM Last administered on 15:59; Start 02/02/17 at 16:00; Stop 02/02/17 at 16:01; Status DC Vancomycin HCl (Vanco Per Pharmacy) 1 each PRN DAILY PRN MC SEE COMMENTS Last administered on 02/04/17t 18:14; Start 02/02/17 at 19:06; Stop 02/05/17 at 09:05 ; Status DC Piperacillin Sod/ Tazobactam Sod 4.5 gm/Sodium Chloride 100 ml @ 200 mls/hr Q6HRS IV ; Start 02/03/17 at 00:00; Status UNV Vancomycin HCl 2 gm/Sodium Chloride 500 ml @ 250 mls/hr 1X ONCE IV Last administered on 02/02/17 18:13; Start 02/02/17 at 17:00; Stop 02/02/17 at 18:59 ; Status DC Piperacillin Sod/ Tazobactam Sod 4.5 gm/Sodium Chloride 100 ml @ 200 mls/hr 1X ONCE IV Last administered on 02/02/17 17:40; Start 02/02/17 at 17:00; Stop 02/02/17 at 17:29; Status DC Diphtheria/ Tetanus/Acell Pertussis (Boostrix) 0.5 ml ONCE ONCE VAX IM Last administered on 02/02/17 18:35; Start 02/02/17 at 18:30; Stop 02/02/17 at 18:31 ; Status DC Fentanyl Citrate (Fentanyl 2ml Vial) 75 mcg 1X ONCE IV Last administered on 18:33; Start 02/02/17 at 18:30; Stop 02/02/17 at 18:31; Status DC Labetalol HCl (Normodyne) 10 mg PRN Q2HR PRN IVP 160/100; Start 02/02/17 at 19: 00 Atorvastatin Calcium (Lipitor) 20 mg QHS PO Last administered on 02/08/17 21: 18; Start 02/02/17 at 21:00 Vitamin D (Vitamin D3) 1,000 unit DAILY PO Last administered on 02/09/17 10:54 ; Start 02/03/17 at 09:00 Losartan Potassium (Cozaar) 50 mg DAILY PO Last administered on 02/03/17 10:19 ; Start 02/03/17 at 09:00; Stop 02/03/17 at 11:41; Status DC Metformin HCl (Glucophage) 500 mg BID PO ; Start 02/02/17 at 21:00; Stop at 21:00; Status DC Tamsulosin HCl (Flomax) 0.4 mg HS PO Last administered on 02/08/17 21:18; Start 02/02/17 at 21:00 Citalopram Hydrobromide (CeleXA) 40 mg DAILY PO Last administered on 02/09/17 10:53; Start 02/03/17 at 09:00 Pantoprazole Sodium (Protonix) 40 mg DAILYAC PO Last administered on 02/09/17 10:54; Start 02/03/17 at 07:30 Gabapentin (Neurontin) 300 mg BID PO Last administered on 02/09/17 10:54; Start 02/02/17 at 21:00 Insulin Aspart (NovoLOG) 23 units TIDAC SQ ; Start 02/03/17 at 07:30; Stop 02/03 at 09:53; Status DC Fentanyl Citrate (Fentanyl 2ml Vial) 50 mcg PRN Q2HR PRN IV pain; Start at 19:00; Stop 02/06/17 at 16:12; Status DC Oxycodone/ Acetaminophen (Percocet 5/325) 1 tab PRN QID PRN PO pain; Start at 19:00; Stop 02/05/17 at 09:31; Status DC Insulin Aspart (NovoLOG) 0-9 UNITS TIDWMEALS SQ Last administered on 02/09/17 13:51; Start 02/03/17 at 08:00 Dextrose (Dextrose 50%-Water Syringe) 12.5 gm PRN Q15MIN PRN IV SEE COMMENTS; Start 02/02/17 at 19:00; Stop 02/02/17 at 21:51; Status DC Sodium Chloride 1,000 ml @ 100 mls/hr 1X ONCE IV Last administered on 19:30; Start 02/02/17 at 19:00; Stop 02/03/17 at 04:59; Status DC Fentanyl Citrate (Fentanyl 2ml Vial) 25 mcg PRN Q5MIN PRN IV MILD PAIN; Start 02/02/17 at 19:15; Stop 02/03/17 at 19:14; Status DC Fentanyl Citrate (Fentanyl 2ml Vial) 50 mcg PRN Q5MIN PRN IV MODERATE PAIN; Start 02/02/17 at 19:15; Stop 02/03/17 at 19:14; Status DC Ringer's Solution 1,000 ml @ 30 mls/hr Q24H IV Last administered on 02/02/17 19:33; Start 02/02/17 at 19:05; Stop 02/03/17 at 07:04; Status DC Lidocaine HCl 2 ml PRN 1X PRN ID PRIOR TO IV START; Start 02/02/17 at 19:15; Stop 02/03/17 at 19:14; Status DC Prochlorperazine Edisylate (Compazine) 5 mg PACU PRN PRN IV NAUSEA, MRX1 Last administered on 02/02/17 21:40; Start 02/02/17 at 19:15; Stop 02/03/17 at 19:14 ; Status DC Vancomycin HCl 1.75 gm/Sodium Chloride 500 ml @ 250 mls/hr Q24H IV Last administered on 02/03/17 18:06; Start 02/03/17 at 18:00; Stop 02/04/17 at 18:12 ; Status DC Vancomycin HCl 1 each 1X ONCE MC ; Start 02/04/17 at 17:30; Stop 02/04/17 at 17 :31; Status DC Piperacillin Sod/ Tazobactam Sod 3.375 gm/Sodium Chloride 50 ml @ 100 mls/hr Q6HRS IV Last administered on 02/09/17 13:35; Start 02/03/17 at 00:00 Dexamethasone Sodium Phosphate (Decadron) 20 mg STK-MED ONCE .ROUTE ; Start at 19:30; Stop 02/02/17 at 19:31; Status DC Ondansetron HCl (Zofran) 4 mg STK-MED ONCE .ROUTE ; Start 02/02/17 at 19:30; Stop 02/02/17 at 19:31; Status DC Propofol 20 ml @ As Directed STK-MED ONCE IV ; Start 02/02/17 at 19:30; Stop at 19:31; Status DC Lidocaine HCl (Lidocaine Pf 2% Vial) 5 ml STK-MED ONCE .ROUTE ; Start 02/02/17 at 19:30; Stop 02/02/17 at 19:31; Status DC Desflurane (Suprane) 30 ml STK-MED ONCE IH ; Start 02/02/17 at 19:30; Stop 02/02 at 19:31; Status DC Fentanyl Citrate (Fentanyl 2ml Vial) 100 mcg STK-MED ONCE .ROUTE ; Start at 19:30; Stop 02/02/17 at 19:31; Status DC Bupivacaine HCl/ Epinephrine Bitart (Sensorcaine-Epi 0.25%-1:921904 Mpf) 30 ml STK-MED ONCE .ROUTE ; Start 02/02/17 at 19:33; Stop 02/02/17 at 19:34; Status DC Ondansetron HCl (Zofran) 4 mg PRN Q8HRS PRN IV NAUSEA/VOMITING; Start 02/02/17 at 19:45; Stop 02/03/17 at 19:44; Status DC Fentanyl Citrate (Fentanyl 2ml Vial) 50 mcg PRN Q2HR PRN IV PAIN; Start at 19:45; Stop 02/03/17 at 19:44; Status DC Oxycodone HCl (Roxicodone) 5 mg PRN Q3HRS PRN PO MODERATE PAIN; Start 02/02/17 at 21:45 Fentanyl Citrate (Fentanyl 2ml Vial) 25 mcg PRN Q1HR PRN IV SEVERE PAIN; Start 02/02/17 at 21:45 Senna/Docusate Sodium (Senna Plus) 1 tab DAILY PO Last administered on 08:35; Start 02/03/17 at 09:00 Polyethylene Glycol (miraLAX PACKET) 17 gm PRN DAILY PRN PO CONSTIPATION Last administered on 02/04/17 09:08; Start 02/02/17 at 21:45 Vancomycin HCl 1 gm/Sodium Chloride 250 ml @ 250 mls/hr Q12H IV ; Start at 06:00; Stop 02/03/17 at 06:59; Status Cancel Ondansetron HCl (Zofran) 4 mg PRN Q4HRS PRN IV NAUSEA/VOMITING; Start 02/02/17 at 21:45 Aspirin (Omkar Aspirin) 325 mg DAILYWBKFT PO Last administered on 02/09/17 10: 53; Start 02/03/17 at 08:00 Magnesium Hydroxide (Milk Of Magnesia) 2,400 mg 1X PRN PRN PO CONSTIPATION; Start 02/03/17 at 06:00; Stop 02/04/17 at 05:59; Status DC Bisacodyl (Dulcolax Supp) 10 mg 1X PRN PRN [place] CONSTIPATION; Start 02/03/17 at 16:00; Stop 02/04/17 at 15:59; Status DC Acetaminophen/ Hydrocodone Bitart (Lortab 7.5/325) 1 tab PRN Q4HRS PRN PO MODERATE PAIN Last administered on 02/09/17 03:43; Start 02/02/17 at 21:45 Acetaminophen/ Hydrocodone Bitart (Lortab 7.5/325) 2 tab PRN Q4HRS PRN PO SEVERE PAIN; Start 02/02/17 at 21:45 Dextrose (Dextrose 50%-Water Syringe) 12.5 gm PRN Q15MIN PRN IV SEE COMMENTS; Start 02/02/17 at 21:45 Prochlorperazine Edisylate (Compazine) 10 mg STK-MED ONCE .ROUTE ; Start at 21:58; Stop 02/02/17 at 21:59; Status DC Haloperidol Lactate (Haldol) 2.5 mg PRN Q6HRS PRN IVP MODERATE AGITATION Last administered on 02/03/17 05:47; Start 02/02/17 at 22:45 Haloperidol Lactate (Haldol) 5 mg PRN Q6HRS PRN IVP SEVERE AGITATION; Start at 22:45; Stop 02/03/17 at 09:53; Status DC Lorazepam (Ativan) 1 mg PRN Q4HRS PRN PO MODERATE ANXIETY / AGITATION; Start at 22:45 Lorazepam (Ativan) 2 mg PRN Q4HRS PRN IV SEVERE ANXIETY / AGITATION; Start at 22:45; Stop 02/03/17 at 12:58; Status DC Insulin Aspart (NovoLOG) 15 units TIDAC SQ Last administered on 02/09/17 13:49 ; Start 02/03/17 at 10:00 Insulin Detemir (Levemir) 20 units QHS SQ Last administered on 02/08/17 21:31 ; Start 02/03/17 at 21:00 Diphenhydramine HCl (Benadryl) 25 mg 1X PRN PRN PO prior to blood transfusion; Start 02/03/17 at 10:30; Stop 02/04/17 at 10:29; Status DC Darbepoetin Robert (Aranesp) 60 mcg [id number] SQ Last administered on 02/03/17 22 :05; Start 02/03/17 at 21:00 Sodium Chloride 1,000 ml @ 75 mls/hr [id number] IV Last administered on 18:04; Start 02/03/17 at 11:30; Stop 02/04/17 at 08:05; Status DC Fentanyl (Duragesic 25mcg/ Hr Patch) 1 patch [id number] TD Last administered on 08:00; Start 02/04/17 at 08:00 Senna/Docusate Sodium (Senna Plus) 1 tab BID PO Last administered on 02/04/17 21:49; Start 02/04/17 at 10:00; Stop 02/05/17 at 09:31; Status DC Docusate Sodium (Colace) 100 mg BID PO Last administered on 02/09/17 10:53; Start 02/04/17 at 10:00 Magnesium Hydroxide (Milk Of Magnesia) 2,400 mg PRN Q12HR PRN PO CONSTIPATION; Start 02/04/17 at 09:15 Sodium Chloride 1,000 ml @ 75 mls/hr [id number] IV Last administered on 05:19; Start 02/04/17 at 10:45; Stop 02/08/17 at 13:28; Status DC Vancomycin HCl 1.5 gm/Sodium Chloride 500 ml @ 250 mls/hr Q24H IV Last administered on 02/04/17 22:47; Start 02/04/17 at 23:00; Stop 02/05/17 at 09:05 ; Status DC Alteplase, Recombinant (Cathflo) 2 mg 1X ONCE INT CAT Last administered on 06:32; Start 02/05/17 at 06:15; Stop 02/05/17 at 06:16; Status DC Phenylephrine HCl (Hemorrhoidal) 1 supp PRN Q12HR PRN [place] RECTAL PAIN; Start at 12:15 Magnesium Sulfate/ Dextrose 50 ml @ 25 mls/hr PRN DAILY PRN IV for Mag < 1.7 on am labs; Start 02/08/17 at 13:30 Active Scripts Active Reported Humalog (Insulin Lispro) 100 Unit/1 Ml Cartridge 23 Unit SQ TIDAC Vitamin D3 (Cholecalciferol (Vitamin D3)) 1,000 Unit Tablet 1 Tab PO DAILY Nexium Capsule (Esomeprazole Magnesium) 40 Mg Capsule.dr 1 Cap PO DAILY Losartan Potassium 50 Mg Tablet 50 Mg PO DAILY Gabapentin 300 Mg Capsule 300 Mg PO BID Celebrex (Celecoxib) 200 Mg Capsule 200 Mg PO BID 30 Days Citalopram Hbr (Citalopram Hydrobromide) 40 Mg Tablet 40 Mg PO DAILY Lipitor (Atorvastatin Calcium) 20 Mg Tablet 20 Mg PO QHS Flomax (Tamsulosin Hcl) 0.4 Mg Cap.er.24h 0.4 Mg PO HS Metformin Hcl 500 Mg Tablet 500 Mg PO BID Plavix (Clopidogrel Bisulfate) 75 Mg Tablet 75 Mg PO DAILY Vitals/I & O Vital Sign - Last 24 Hours 02/08/17 02/08/17 02/08/17 02/08/17 15:00 15:04 16:05 19:00 Temp 96.3 97.5 96.3 97.5 Pulse 74 78 Resp 20 20 16 20 B/P (MAP) 152/86 (108) 149/74 (99) Pulse Ox 98 96 94 98 O2 Delivery Room Air Room Air Room Air 02/08/17 02/08/17 02/08/17 02/09/17 20:00 21:25 23:00 03:05 Temp 97.7 96.4 97.7 96.4 Pulse 83 87 Resp 20 20 B/P (MAP) 164/91 (115) 140/80 (100) Pulse Ox 97 96 O2 Delivery Room Air Room Air Room Air Room Air 02/09/17 02/09/17 02/09/17 02/09/17 03:43 04:57 07:00 10:58 Temp 97.5 97.7 97.5 97.7 Pulse 83 94 Resp 20 20 B/P (MAP) 131/62 (85) 181/94 (123) Pulse Ox 97 97 O2 Delivery Room Air Room Air Room Air Room Air Intake and Output 02/09/17 02/09/17 02/10/17 15:00 23:00 07:00 Intake Total 180 ml Balance 180 ml DARYL WANG MD Feb 09, 2017 13:54
[2017-02-09 15:00] VITALS: BP 145/96
[2017-02-09 19:00] VITALS: BP 147/81
[2017-02-09] MEDS: ATORVASTATIN CALCIUM 20 MG TABLET PO SCH (22:26)
[2017-02-09] MEDS: TAMSULOSIN 0.4 MG CAP.ER.24H. PO SCH (22:28)
[2017-02-09] MEDS: INSULIN DETEMIR 300 UNITS/3 ML INSULN.PEN. SQ SCH (22:37)
[2017-02-09 23:00] VITALS: BP 149/77
[2017-02-10] MEDS: PIPERACILLIN/TAZOBACTAM 3.375 GM in IV NORMAL SALINE 50ML 50 ML IV SCH ×4 (00:24→17:45)
[2017-02-10 03:00] VITALS: BP 150/81
[2017-02-10 07:00] VITALS: BP 142/79
[2017-02-10 07:12] LABS: ALBUMIN 2.6 g/dL (3.4-5.0); CALCIUM 8.3 mg/dL (8.5-10.1); CREATININE 1.9 mg/dL (0.7-1.3); PHOSPHORUS 4.3 mg/dL (2.6-4.7)
[2017-02-10] MEDS: CHOLECALCIFEROL (VITAMIN D3) 1,000 UNIT TABLET PO SCH (09:01)
[2017-02-10] MEDS: PANTOPRAZOLE 40 MG TABLET.DR. PO SCH (09:01)
[2017-02-10] MEDS: ASPIRIN 325 MG TABLET PO SCH (09:01)
[2017-02-10] MEDS: CITALOPRAM 20 MG TABLET. PO SCH (09:02)
[2017-02-10] MEDS: GABAPENTIN 300 MG CAPSULE. PO SCH (09:02)
[2017-02-10] MEDS: DOCUSATE SODIUM 100 MG CAPSULE. PO SCH (09:02)
[2017-02-10] MEDS: HYDROcodone/APAP 7.5/325MG 1 TAB TABLET PO PRN ×2 (09:02→17:43)
[2017-02-10] MEDS: SENNOSIDES/DOCUSATE 8.6/50MG TABLET. PO SCH (09:02)
[2017-02-10] MEDS: INSULIN ASPART 300 UNITS/3 ML INSULN.PEN SQ SCH ×6 (09:24→17:48)
[2017-02-10 11:00] VITALS: BP 155/68
--- NOTE | 2017-02-10 12:16 | PDOC ---
Infectious Disease Note Subjective Subjective Feeling well Pain controlled ROS ROS GEN: Denies fevers, chills, sweats HEENT: Denies blurred vision, sore throat CV: Denies chest pain RESP: Denies shortness of air, cough GI: Denies n/v/d NEURO: Denies confusion, dizziness MSK: Denies weakness, joint pain/swelling Vital Sign Vital Signs Vital Signs Date Time Temp Pulse Resp B/P (MAP) Pulse Ox O2 Delivery O2 Flow Rate FiO2 02/10/17 11:00 97.7 88 18 155/68 (97) 96 Room Air 97.7 02/09/17 18:21 2.0 Physical Exam PHYSICAL EXAM GENERAL: NAD , coop, on side of bed HEENT: OC/OP clear NECK: Supple LUNGS: Clear HEART: S1S2, no gallop, no murmur appreciated ABD: Obese, soft, NT : Zelaya EXT: Left heel with vac and dressed. Right foot with ex f-ix. CODE ENFORCEMENT OFFICER: Alert, 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, no focal neurologic deficit SKIN: No rash LUE-PICC. clean HDC. clean Labs Lab Laboratory Tests Test 02/09/17 16:34 02/09/17 21:08 02/10/17 06:35 02/10/17 07:25 Glucose (Fingerstick) 215 mg/dL (70-99) 250 mg/dL (70-99) 162 mg/dL (70-99) Sodium Level 147 mmol/L (136-145) Potassium Level 4.0 mmol/L (3.5-5.1) Chloride Level 110 mmol/L (98-107) Carbon Dioxide Level 26 mmol/L (21-32) Anion Gap 11 (6-14) Blood Urea Nitrogen 29 mg/dL (8-26) Creatinine 1.9 mg/dL (0.7-1.3) Estimated GFR (Cockcroft-Gault) 36.0 Glucose Level 170 mg/dL (70-99) Calcium Level 8.3 mg/dL (8.5-10.1) Phosphorus Level 4.3 mg/dL (2.6-4.7) Magnesium Level 1.2 mg/dL (1.8-2.4) Albumin 2.6 g/dL (3.4-5.0) Test 02/10/17 11:13 Glucose (Fingerstick) 207 mg/dL (70-99) Objective Assessment Left ankle abscess s/p I and D, 02/02, Proteus (R tetra), PSA ( R ticarcillin) , E. faecalis-PCNS & MSSA Bi malleolar ankle fracture s/p ext fixation, 02/02 Right calcaneal wound with vac in place -h/o gangrenous ulcer of right heel. s/p excisional debridement skin and subcutaneous tissue, 01/05. No intra-op cultures were obtained -MRI from 01/02 showed chronic neuropathic arthropathy changes with hardware in place; no definite evidence of acute osteo noted but could not r/o with elevated ESR and WBC at the time. BRYCE/CKD. Cr clearance improving, off HD since 01/30 Plan Plan of Care ? D/c zelaya/HD cath Cont Zosyn for 2 more weeks given joint infection 02/24 Await further Ortho eval. supportive care Wound care RADHA SILVA MD Feb 10, 2017 12:16
[2017-02-10] MEDS: fentaNYL 25MCG/HR PATCH 1 PATCH PATCH.TD72 TD SCH (12:37)
[2017-02-10] MEDS ORDERED: HYDR-2762 PO (12:58)
--- NOTE | 2017-02-10 14:09 | PDOC4 ---
Operative Note Operative Note Date: Feb 02, 2017 Pre-Op Diagnosis: Closed left ankle trimalleolar fracture dislocation, Ankle abscess Post-Op Diagnosis: Closed left ankle trimalleolar fracture dislocation, Ankle abscess Procedure Performed 1. Closed reduction ankle fracture dislocation with external Fixator application 2. Incision and drainage of the left ankle abscess Surgeon: Carlota [employer] Agent: Jad Anesthesiologist: Rolly Anesthesia Type: General Blood Loss: 25 mL Specimens Obtained:Deep cultures from the lateral ankle Findings: Lateral ankle abscess or hematoma probably extending to the ankle joint, and extending somewhat anteriorly along the ankle capsule. Cultures taken. Incision and drainage performed and open wound packing performed. A closed reduction was performed of the ankle dislocation with delta frame external fixator application , including a heel protector posterior hoop. Satisfactory reduction and fixation was obtained with the ex-fix. Copious irrigation was used with the [employer] Nicole welt cutter of that lateral ankle wound. Complications None Indication for procedure: Mr. Soliz is a patient familiar to me with severe diabetes. He had a nondisplaced lateral malleolus fracture previously that was treated nonoperatively. He fell in the bathroom, and now has a severe displaced trimalleolar fracture. Since I saw him last he has developed a severe ulceration around the posterior ankle, and has an open draining ulcer posteriorly. There is significant swelling laterally almost what looks like an abscess, and is more red and warm than a typical fracture. Due to the open wound there is some consideration that this fracture could even be open, although my clinical judgment says the fracture itself is technically closed but there is a significant open ulceration that appears either infected or contaminated which would compromise any ability to perform open treatment with internal fixation. I spoke to Mr. Kyle about a closed reduction and external fixator application for his trimalleolar fracture. I recommended incision and drainage of the ankle, probably an abscess although it could be related to the fracture. We talked about the potential risks of surgery especially in light of his severe diabetes and neuropathy. This injury could lead to an amputation. We will attempt to preserve the length by the external fixator application, fracture treatment, by stabilizing with the external fixator, and that will also allowed wound care of the posterior open wound. Closed treatment with a cast would be contraindicated because of the open wound. Open treatment with plate and screws is again contraindicated. He stated understanding of the risks, benefits, and alternatives, and desires to proceed with surgery. Operative Note He was identified in the preoperative holding area. The correct left ankle is marked by me. He was taken to the operating room where a general anesthetic was used. Preoperative antibiotic were given intravenously. The limb was prepared in sterile fashion and sterile drapes were applied. The trimalleolar fracture was reduced using the large C-arm. I had Chelita apply countertraction, I used gentle recreation of the deformity, traction, and correction of the deformity, to achieve the reduction. The image intensifier was used throughout, and all of the images were interpreted intraoperatively by me. Once a satisfactory reduction was obtained, I proceeded with external fixation. A trans-calcaneal pin was performed using the image intensifier for positioning 1 fingerbreadth anterior to the posterior aspect of the calcaneus, and one finger breath superior to the inferior aspect of the calcaneus. There is an open wound around the ankle, and I made care not to plunge the fixator pin through the ulcer, and avoided it is much as possible while maintaining correct position and the calcaneus. The pin was placed through a stab incision medially, and exited laterally, away from the open ulcer. Next the proximal fixation was applied. Three stab incisions were placed in the anteromedial tibial cortex area, part of superior to avoid contaminating any future internal fixation. Predrilling was performed, followed by self drilling self-tapping bicortical pins. I held the reduction stable, and had Chelita apply those external fixator pins, through a drill guide to make three parallel proximal fixator pins. We then applied a pin clamp to the proximal aspect. Pin-to-bar clamps were used at the trans-calcaneal pin. A delta frame was created. I then again had Chelita use countertraction on the thigh, and I manipulated the ankle using the image intensifier. Once I achieve the reduction , I had Chelita tighten all of the fixator fasteners. Once she secured all of the fixator fasteners with a wrench, the reduction was able to be let off, and final reduction images were obtained using the image intensifier. An anatomic- appearing reduction was obtained with satisfactory reduction of the medial malleolus, the lateral mortise, and the posterior malleolus. The tibiotalar joint appeared anatomically aligned. Finally, the lateral swelling persisted. This appears to be almost an abscess of the lateral malleolus. Sharp dissection was used. Bloody to almost purulent drainage was obtained. Deep cultures were taken of this fluid. The lateral incision was left open. Copious irrigation was used in the lateral incision using the [employer] pulse welt cutter. approximately 36 inches of Iodoform packing was used in the lateral incision.Sterile dressings were applied. Needle and sponge counts were correct. There were no apparent complications. The patient returned to the recovery room in stable condition. Despite a prior diagnosis of necrotizing fasciitis during this admission, I saw no evidence of that. He may have an infected ankle joint, perhaps a lateral ankle abscess or hematoma, and he certainly has a chronic-appearing ulcer along the posterior ankle which was not present at his prior admission. The displaced trimalleolar ankle fracture now appears well aligned in the external fixator, and we can continue wound care and dressing changes. He should remain nonweightbearing. DELVIN STROUD MD Feb 10, 2017 14:09
[2017-02-10 15:00] VITALS: BP 126/79
--- NOTE | 2017-02-10 15:03 | PDOC2 ---
CONSULT Date of Consult Date of Consult DATE: 02/02/17 *late entry, patient was seen in preop by Dr. Alves on 02/02/17 prior to surgery. Reason for Consult Reason for Consult: left ankle fracture Identification/Chief Complaint Chief Complaint left ankle pain Problems: Source Source: Chart review, Patient History of Present Illness Reason for Visit: Mr. Soliz is a 62 year old male patient who presented to the ED from [facility] after falling and injuring his left ankle. He states he was walking to the bathroom and suddenly twisted his ankle, causing him to fall. He is familiar to us as we treated his right heel ulcer with debridement and wound vac placement and his nondisplaced lateral malleolus fracture nonoperatively with a CAM walker last month. He now has an open draining ulcer of the left ankle. Past Medical History Cardiovascular: HTN, Hyperlipidemia CENTRAL NERVOUS SYSTEM: CVA, Periperal neuropathy, Other GI: GERD Psych: Depression Renal/: Chronic renal insuff, Acute renal failure Endocrine: Diabetes Past Surgical History Past Surgical History: Other (right heel wound debridement with wound vac placement ) Family History Family History: Diabetes, Hypertension Social History No ALCOHOL: rare Drugs: None Lives: with Family Current Problem List Problem List Problems Medical Problems: (1) Dislocation of tibia, upper, lateral Status: Acute (2) Fractured fibula Status: Acute (3) Necrotizing fasciitis Status: Acute Current Medications Current Medications Current Medications Fentanyl Citrate (Fentanyl 2ml Vial) 50 mcg 1X ONCE IM Last administered on 15:59; Start 02/02/17 at 16:00; Stop 02/02/17 at 16:01; Status DC Vancomycin HCl (Vanco Per Pharmacy) 1 each PRN DAILY PRN MC SEE COMMENTS Last administered on 02/04/17 18:14; Start 02/02/17 at 19:06; Stop 02/05/17 at 09:05 ; Status DC Piperacillin Sod/ Tazobactam Sod 4.5 gm/Sodium Chloride 100 ml @ 200 mls/hr Q6HRS IV ; Start 02/03/17 at 00:00; Status UNV Vancomycin HCl 2 gm/Sodium Chloride 500 ml @ 250 mls/hr 1X ONCE IV Last administered on 02/02/17 18:13; Start 02/02/17 at 17:00; Stop 02/02/17 at 18:59 ; Status DC Piperacillin Sod/ Tazobactam Sod 4.5 gm/Sodium Chloride 100 ml @ 200 mls/hr 1X ONCE IV Last administered on 02/02/17 17:40; Start 02/02/17 at 17:00; Stop 02/02/17 at 17:29; Status DC Diphtheria/ Tetanus/Acell Pertussis (Boostrix) 0.5 ml ONCE ONCE VAX IM Last administered on 02/02/17 18:35; Start 02/02/17 at 18:30; Stop 02/02/17 at 18:31 ; Status DC Fentanyl Citrate (Fentanyl 2ml Vial) 75 mcg 1X ONCE IV Last administered on 18:33; Start 02/02/17 at 18:30; Stop 02/02/17 at 18:31; Status DC Labetalol HCl (Normodyne) 10 mg PRN Q2HR PRN IVP 160/100; Start 02/02/17 at 19: 00 Atorvastatin Calcium (Lipitor) 20 mg QHS PO Last administered on 02/09/17 22: 26; Start 02/02/17 at 21:00 Vitamin D (Vitamin D3) 1,000 unit DAILY PO Last administered on 02/10/17 09:01 ; Start 02/03/17 at 09:00 Losartan Potassium (Cozaar) 50 mg DAILY PO Last administered on 02/03/17 10:19 ; Start 02/03/17 at 09:00; Stop 02/03/17 at 11:41; Status DC Metformin HCl (Glucophage) 500 mg BID PO ; Start 02/02/17 at 21:00; Stop at 21:00; Status DC Tamsulosin HCl (Flomax) 0.4 mg HS PO Last administered on 02/09/17 22:28; Start 02/02/17 at 21:00 Citalopram Hydrobromide (CeleXA) 40 mg DAILY PO Last administered on 02/10/17 09:02; Start 02/03/17 at 09:00 Pantoprazole Sodium (Protonix) 40 mg DAILYAC PO Last administered on 02/10/17 09:01; Start 02/03/17 at 07:30 Gabapentin (Neurontin) 300 mg BID PO Last administered on 02/10/17 09:02; Start 02/02/17 at 21:00 Insulin Aspart (NovoLOG) 23 units TIDAC SQ ; Start 02/03/17 at 07:30; Stop 02/03 at 09:53; Status DC Fentanyl Citrate (Fentanyl 2ml Vial) 50 mcg PRN Q2HR PRN IV pain; Start at 19:00; Stop 02/06/17 at 16:12; Status DC Oxycodone/ Acetaminophen (Percocet 5/325) 1 tab PRN QID PRN PO pain; Start at 19:00; Stop 02/05/17 at 09:31; Status DC Insulin Aspart (NovoLOG) 0-9 UNITS TIDWMEALS SQ Last administered on 02/10/17 12:50; Start 02/03/17 at 08:00 Dextrose (Dextrose 50%-Water Syringe) 12.5 gm PRN Q15MIN PRN IV SEE COMMENTS; Start 02/02/17 at 19:00; Stop 02/02/17 at 21:51; Status DC Sodium Chloride 1,000 ml @ 100 mls/hr 1X ONCE IV Last administered on 19:30; Start 02/02/17 at 19:00; Stop 02/03/17 at 04:59; Status DC Fentanyl Citrate (Fentanyl 2ml Vial) 25 mcg PRN Q5MIN PRN IV MILD PAIN; Start 02/02/17 at 19:15; Stop 02/03/17 at 19:14; Status DC Fentanyl Citrate (Fentanyl 2ml Vial) 50 mcg PRN Q5MIN PRN IV MODERATE PAIN; Start 02/02/17 at 19:15; Stop 02/03/17 at 19:14; Status DC Ringer's Solution 1,000 ml @ 30 mls/hr Q24H IV Last administered on 02/02/17 19:33; Start 02/02/17 at 19:05; Stop 02/03/17 at 07:04; Status DC Lidocaine HCl 2 ml PRN 1X PRN ID PRIOR TO IV START; Start 02/02/17 at 19:15; Stop 02/03/17 at 19:14; Status DC Prochlorperazine Edisylate (Compazine) 5 mg PACU PRN PRN IV NAUSEA, MRX1 Last administered on 8/22/17at 21:40; Start 02/02/17 at 19:15; Stop 02/03/17 at 19:14 ; Status DC Vancomycin HCl 1.75 gm/Sodium Chloride 500 ml @ 250 mls/hr Q24H IV Last administered on 02/03/17 18:06; Start 02/03/17 at 18:00; Stop 02/04/17 at 18:12 ; Status DC Vancomycin HCl 1 each 1X ONCE MC ; Start 02/04/17 at 17:30; Stop 02/04/17 at 17 :31; Status DC Piperacillin Sod/ Tazobactam Sod 3.375 gm/Sodium Chloride 50 ml @ 100 mls/hr Q6HRS IV Last administered on 02/10/17 12:36; Start 02/03/17 at 00:00 Dexamethasone Sodium Phosphate (Decadron) 20 mg STK-MED ONCE .ROUTE ; Start at 19:30; Stop 02/02/17 at 19:31; Status DC Ondansetron HCl (Zofran) 4 mg STK-MED ONCE .ROUTE ; Start 02/02/17 at 19:30; Stop 02/02/17 at 19:31; Status DC Propofol 20 ml @ As Directed STK-MED ONCE IV ; Start 02/02/17 at 19:30; Stop at 19:31; Status DC Lidocaine HCl (Lidocaine Pf 2% Vial) 5 ml STK-MED ONCE .ROUTE ; Start 02/02/17 at 19:30; Stop 02/02/17 at 19:31; Status DC Desflurane (Suprane) 30 ml STK-MED ONCE IH ; Start 02/02/17 at 19:30; Stop 02/02 at 19:31; Status DC Fentanyl Citrate (Fentanyl 2ml Vial) 100 mcg STK-MED ONCE .ROUTE ; Start at 19:30; Stop 02/02/17 at 19:31; Status DC Bupivacaine HCl/ Epinephrine Bitart (Sensorcaine-Epi 0.25%-1:134527 Mpf) 30 ml STK-MED ONCE .ROUTE ; Start 02/02/17 at 19:33; Stop 02/02/17 at 19:34; Status DC Ondansetron HCl (Zofran) 4 mg PRN Q8HRS PRN IV NAUSEA/VOMITING; Start 02/02/17 at 19:45; Stop 02/03/17 at 19:44; Status DC Fentanyl Citrate (Fentanyl 2ml Vial) 50 mcg PRN Q2HR PRN IV PAIN; Start at 19:45; Stop 02/03/17 at 19:44; Status DC Oxycodone HCl (Roxicodone) 5 mg PRN Q3HRS PRN PO MODERATE PAIN; Start 02/02/17 at 21:45 Fentanyl Citrate (Fentanyl 2ml Vial) 25 mcg PRN Q1HR PRN IV SEVERE PAIN; Start 02/02/17 at 21:45 Senna/Docusate Sodium (Senna Plus) 1 tab DAILY PO Last administered on 09:02; Start 02/03/17 at 09:00 Polyethylene Glycol (miraLAX PACKET) 17 gm PRN DAILY PRN PO CONSTIPATION Last administered on 02/04/17 09:08; Start 02/02/17 at 21:45 Vancomycin HCl 1 gm/Sodium Chloride 250 ml @ 250 mls/hr Q12H IV ; Start at 06:00; Stop 02/03/17 at 06:59; Status Cancel Ondansetron HCl (Zofran) 4 mg PRN Q4HRS PRN IV NAUSEA/VOMITING; Start 02/02/17 at 21:45 Aspirin (Omkar Aspirin) 325 mg DAILYWBKFT PO Last administered on 02/10/17 09: 01; Start 02/03/17 at 08:00 Magnesium Hydroxide (Milk Of Magnesia) 2,400 mg 1X PRN PRN PO CONSTIPATION; Start 02/03/17 at 06:00; Stop 02/04/17 at 05:59; Status DC Bisacodyl (Dulcolax Supp) 10 mg 1X PRN PRN [place] CONSTIPATION; Start 02/03/17 at 16:00; Stop 02/04/17 at 15:59; Status DC Acetaminophen/ Hydrocodone Bitart (Lortab 7.5/325) 1 tab PRN Q4HRS PRN PO MODERATE PAIN Last administered on 02/09/17 03:43; Start 02/02/17 at 21:45 Acetaminophen/ Hydrocodone Bitart (Lortab 7.5/325) 2 tab PRN Q4HRS PRN PO SEVERE PAIN Last administered on 02/10/17 09:02; Start 02/02/17 at 21:45 Dextrose (Dextrose 50%-Water Syringe) 12.5 gm PRN Q15MIN PRN IV SEE COMMENTS; Start 02/02/17 at 21:45 Prochlorperazine Edisylate (Compazine) 10 mg STK-MED ONCE .ROUTE ; Start at 21:58; Stop 02/02/17 at 21:59; Status DC Haloperidol Lactate (Haldol) 2.5 mg PRN Q6HRS PRN IVP MODERATE AGITATION Last administered on 02/03/17 05:47; Start 02/02/17 at 22:45 Haloperidol Lactate (Haldol) 5 mg PRN Q6HRS PRN IVP SEVERE AGITATION; Start at 22:45; Stop 02/03/17 at 09:53; Status DC Lorazepam (Ativan) 1 mg PRN Q4HRS PRN PO MODERATE ANXIETY / AGITATION; Start at 22:45 Lorazepam (Ativan) 2 mg PRN Q4HRS PRN IV SEVERE ANXIETY / AGITATION; Start at 22:45; Stop 02/03/17 at 12:58; Status DC Insulin Aspart (NovoLOG) 15 units TIDAC SQ Last administered on 02/10/17 12:51 ; Start 02/03/17 at 10:00 Insulin Detemir (Levemir) 20 units QHS SQ Last administered on 02/09/17 22:37 ; Start 02/03/17 at 21:00 Diphenhydramine HCl (Benadryl) 25 mg 1X PRN PRN PO prior to blood transfusion; Start 02/03/17 at 10:30; Stop 02/04/17 at 10:29; Status DC Darbepoetin Robert (Aranesp) 60 mcg WEEKLYHS SQ Last administered on 02/03/17 22 :05; Start 02/03/17 at 21:00 Sodium Chloride 1,000 ml @ 75 mls/hr [id number] IV Last administered on 18:04; Start 02/03/17 at 11:30; Stop 02/04/17 at 08:05; Status DC Fentanyl (Duragesic 25mcg/ Hr Patch) 1 patch Q3DAYS TD Last administered on 12:37; Start 02/04/17 at 08:00 Senna/Docusate Sodium (Senna Plus) 1 tab BID PO Last administered on 02/04/17 21:49; Start 02/04/17 at 10:00; Stop 02/05/17 at 09:31; Status DC Docusate Sodium (Colace) 100 mg BID PO Last administered on 02/10/17 09:02; Start 02/04/17 at 10:00 Magnesium Hydroxide (Milk Of Magnesia) 2,400 mg PRN Q12HR PRN PO CONSTIPATION; Start 02/04/17 at 09:15 Sodium Chloride 1,000 ml @ 75 mls/hr [id number] IV Last administered on 05:19; Start 02/04/17 at 10:45; Stop 02/08/17 at 13:28; Status DC Vancomycin HCl 1.5 gm/Sodium Chloride 500 ml @ 250 mls/hr Q24H IV Last administered on 02/04/17 22:47; Start 02/04/17 at 23:00; Stop 02/05/17 at 09:05 ; Status DC Alteplase, Recombinant (Cathflo) 2 mg 1X ONCE INT CAT Last administered on 06:32; Start 02/05/17 at 06:15; Stop 02/05/17 at 06:16; Status DC Phenylephrine HCl (Hemorrhoidal) 1 supp PRN Q12HR PRN [place] RECTAL PAIN; Start at 12:15 Magnesium Sulfate/ Dextrose 50 ml @ 25 mls/hr PRN DAILY PRN IV for Mag < 1.7 on am labs; Start 02/08/17 at 13:30 Active Scripts Active Hydrocodone-Apap 7.5-325 (Hydrocodone Bit/Acetaminophen) 1 Each Tablet 1 Tab PO PRN Q4HRS PRN Reported Humalog (Insulin Lispro) 100 Unit/1 Ml Cartridge 23 Unit SQ TIDAC Vitamin D3 (Cholecalciferol (Vitamin D3)) 1,000 Unit Tablet 1 Tab PO DAILY Nexium Capsule (Esomeprazole Magnesium) 40 Mg Capsule.dr 1 Cap PO DAILY Losartan Potassium 50 Mg Tablet 50 Mg PO DAILY Gabapentin 300 Mg Capsule 300 Mg PO BID Celebrex (Celecoxib) 200 Mg Capsule 200 Mg PO BID 30 Days Citalopram Hbr (Citalopram Hydrobromide) 40 Mg Tablet 40 Mg PO DAILY Lipitor (Atorvastatin Calcium) 20 Mg Tablet 20 Mg PO QHS Flomax (Tamsulosin Hcl) 0.4 Mg Cap.er.24h 0.4 Mg PO HS Metformin Hcl 500 Mg Tablet 500 Mg PO BID Plavix (Clopidogrel Bisulfate) 75 Mg Tablet 75 Mg PO DAILY Allergies Allergies: Coded Allergies: morphine (Verified Allergy, Intermediate, 01/05/17) causes hallucinations Physical Exam General: Alert, Oriented X3, Cooperative, No acute distress HEENT: Atraumatic, EOMI Lungs: Normal air movement Heart: Regular rate Abdomen: Soft Extremities: No clubbing, No cyanosis Skin: No rashes Neuro: Normal speech Psych/Mental Status: Mental status NL, Mood NL MUSCULOSKELETAL: Other (Left ankle with obvious deformity. Pain medially and laterally with attempted motion. Draining ulcer posteriorly around. Significant swelling laterally with fluctuance, likely an abscess. Dorsalis pedis and posterior tibialis pulse thready. Sensation is severely diminished due to chronic neuropathy.) Vitals VITALS Vital Signs Date Time Temp Pulse Resp B/P (MAP) Pulse Ox O2 Delivery O2 Flow Rate FiO2 02/10/17 11:00 97.7 88 18 155/68 (97) 96 Room Air 97.7 02/09/17 18:21 2.0 Labs Labs Laboratory Tests Test 02/08/17 16:56 02/08/17 20:13 02/09/17 05:00 02/09/17 07:48 Glucose (Fingerstick) 109 mg/dL (70-99) 209 mg/dL (70-99) 154 mg/dL (70-99) Hemoglobin 8.3 g/dL (13.0-17.5) Sodium Level 144 mmol/L (136-145) Potassium Level 4.5 mmol/L (3.5-5.1) Chloride Level 109 mmol/L (98-107) Carbon Dioxide Level 25 mmol/L (21-32) Anion Gap 10 (6-14) Blood Urea Nitrogen 30 mg/dL (8-26) Creatinine 1.8 mg/dL (0.7-1.3) Estimated GFR (Cockcroft-Gault) 38.3 Glucose Level 164 mg/dL (70-99) Calcium Level 9.1 mg/dL (8.5-10.1) Phosphorus Level 4.0 mg/dL (2.6-4.7) Magnesium Level 1.2 mg/dL (1.8-2.4) Albumin 2.6 g/dL (3.4-5.0) Test 02/09/17 11:41 02/09/17 16:34 02/09/17 21:08 02/10/17 06:35 Glucose (Fingerstick) 181 mg/dL (70-99) 215 mg/dL (70-99) 250 mg/dL (70-99) Sodium Level 147 mmol/L (136-145) Potassium Level 4.0 mmol/L (3.5-5.1) Chloride Level 110 mmol/L (98-107) Carbon Dioxide Level 26 mmol/L (21-32) Anion Gap 11 (6-14) Blood Urea Nitrogen 29 mg/dL (8-26) Creatinine 1.9 mg/dL (0.7-1.3) Estimated GFR (Cockcroft-Gault) 36.0 Glucose Level 170 mg/dL (70-99) Calcium Level 8.3 mg/dL (8.5-10.1) Phosphorus Level 4.3 mg/dL (2.6-4.7) Magnesium Level 1.2 mg/dL (1.8-2.4) Albumin 2.6 g/dL (3.4-5.0) Test 02/10/17 07:25 02/10/17 11:13 Glucose (Fingerstick) 162 mg/dL (70-99) 207 mg/dL (70-99) Laboratory Tests Test 02/09/17 16:34 02/09/17 21:08 02/10/17 06:35 02/10/17 07:25 Glucose (Fingerstick) 215 mg/dL (70-99) 250 mg/dL (70-99) 162 mg/dL (70-99) Sodium Level 147 mmol/L (136-145) Potassium Level 4.0 mmol/L (3.5-5.1) Chloride Level 110 mmol/L (98-107) Carbon Dioxide Level 26 mmol/L (21-32) Anion Gap 11 (6-14) Blood Urea Nitrogen 29 mg/dL (8-26) Creatinine 1.9 mg/dL (0.7-1.3) Estimated GFR (Cockcroft-Gault) 36.0 Glucose Level 170 mg/dL (70-99) Calcium Level 8.3 mg/dL (8.5-10.1) Phosphorus Level 4.3 mg/dL (2.6-4.7) Magnesium Level 1.2 mg/dL (1.8-2.4) Albumin 2.6 g/dL (3.4-5.0) Test 02/10/17 11:13 Glucose (Fingerstick) 207 mg/dL (70-99) Images Images There is a fracture of the medial malleolus with considerable lateral displacement of the distal fracture fragment. There is a slightly comminuted fracture of the distal fibula with lateral displacement and angulation of the major distal fracture fragment. The talus is dislocated laterally relative to the articular surface of the distal tibia. There is extensive soft tissue swelling. Arterial calcifications are noted. Assessment/Plan Assessment/Plan Displaced left trimalleolar ankle fracture dislocation with draining ulcer round ankle. He had a nondisplaced lateral malleolus fracture previously that was treated nonoperatively. He fell in the bathroom, and now has a severe displaced trimalleolar fracture. Since we saw him last he has developed a severe ulceration around the posterior ankle, and has an open draining ulcer posteriorly. There is significant swelling laterally almost what looks like an abscess, and is more red and warm than a typical fracture. Due to the open wound there is some consideration that this fracture could even be open, although clinical judgment says the fracture itself is technically closed but there is a significant open ulceration that appears either infected or contaminated which would compromise any ability to perform open treatment with internal fixation. We spoke to Mr. Soliz about a closed reduction and external fixator application for his trimalleolar fracture. We recommended incision and drainage of the ankle, probably an abscess although it could be related to the fracture. We talked about the potential risks of surgery especially in light of his severe diabetes and neuropathy. This injury could lead to an amputation. We will attempt to preserve the length by the external fixator application, fracture treatment, by stabilizing with the external fixator, and that will also allowed wound care of the posterior open wound. Closed treatment with a cast would be contraindicated because of the open wound. Open treatment with plate and screws is again contraindicated. He stated understanding of the risks, benefits, and alternatives, and desires to proceed with surgery. LELAND LUU Feb 10, 2017 15:03
--- NOTE | 2017-02-10 15:42 | PDOC ---
SUBJECTIVE ROS BRYCE/ ATN - Doing much better, admits to not drinking much PO fluids CVS: no Orthopnea, no CP RESP: no SOB, no ROMAN GI: no Nausea, no Vomiting : no Dysuria, no Urgency OBJECTIVE Vital Signs Vital Signs Date Time Temp Pulse Resp B/P (MAP) Pulse Ox O2 Delivery O2 Flow Rate FiO2 02/10/17 11:00 97.7 88 18 155/68 (97) 96 Room Air 97.7 02/09/17 18:21 2.0 I & 0 Intake and Output 02/11/17 07:00 Output Total 200 ml Balance -200 ml Output Urine Total 200 ml # Bowel Movements 1 PHYSICAL EXAM Physical Exam GEN: Awake, Oriented x 3, In no distress EYES: Vision Unchanged, Conjunctiva Normal EN: No EN Drainage, Mucous Membranes moist NECK: no JVD, no JVP, Supple, no Thyromegaly - thick neck CVS: S1S2, no Murmur, No Gallop, No Rub,+ Left Ankle Edema RESP: no Rales, no Rhonchi,no Acc. Muscle Use GI: BS + ve, NO Bruit, Non Tender, Non Distended - obese : no CVA tenderness, no Suprapubic Tenderness DIAGNOSIS/ASSESSMENT Assessment & Plan BRYCE/ ATN - appears to be recovering for now. Current fluid and E-lyte status does not necessitate emergent need for dialysis. Will re-evaluate for dialysis in the am Min ^ed Na - ^ PO Water intake as D/w Pt ANEMIA; Aranesp as ordered, Transfuse as needed HTN: Current BP meds as reviewed. See orders for changes. BONE & MINERAL: may need to liberalize diet soon Low Mag - replace per prn order - D/w RN D/c Permacath today COMMENT/RELEVANT DATA Meds Current Medications Medications (Trade) Dose Ordered Sig/Serenity Start Time Stop Time Status Last Admin Dose Admin Acetaminophen/ Hydrocodone Bitart (Lortab 7.5/325) 2 tab PRN Q4HRS PRN 02/02/17 21:45 02/10/17 09:02 2 TAB Alteplase, Recombinant (Cathflo) 2 mg 1X ONCE 02/05/17 06:15 02/05/17 06:16 DC 02/05/17 06:32 2 MG Aspirin (Omkar Aspirin) 325 mg [id number] 02/03/17 08:00 8/30/17 09:01 325 MG Atorvastatin Calcium (Lipitor) 20 mg QHS 02/02/17 21:00 02/09/17 22:26 20 MG Bisacodyl (Dulcolax Supp) 10 mg 1X PRN PRN 02/03/17 16:00 02/04/17 15:59 DC Bupivacaine HCl/ Epinephrine Bitart (Sensorcaine-Epi 0.25%-1:236584 Mpf) 30 ml STK-MED ONCE 02/02/17 19:33 02/02/17 19:34 DC Citalopram Hydrobromide (CeleXA) 40 mg DAILY 02/03/17 09:00 02/10/17 09:02 40 MG Darbepoetin Robert (Aranesp) 60 mcg WEEKLYHS 02/03/17 21:00 02/03/17 22:05 60 MCG Desflurane (Suprane) 30 ml STK-MED ONCE 02/02/17 19:30 02/02/17 19:31 DC Dexamethasone Sodium Phosphate (Decadron) 20 mg STK-MED ONCE 02/02/17 19:30 02/02/17 19:31 DC Dextrose (Dextrose 50%-Water Syringe) 12.5 gm PRN Q15MIN PRN 02/02/17 21:45 Diphenhydramine HCl (Benadryl) 25 mg 1X PRN PRN 02/03/17 10:30 02/04/17 10:29 DC Diphtheria/ Tetanus/Acell Pertussis (Boostrix) 0.5 ml ONCE ONCE 02/02/17 18:30 02/02/17 18:31 DC 02/02/17 18:35 0.5 ML Docusate Sodium (Colace) 100 mg BID 02/04/17 10:00 02/10/17 09:02 100 MG Fentanyl (Duragesic 25mcg/ Hr Patch) 1 patch Q3DAYS 02/04/17 08:00 02/10/17 12:37 1 PATCH Fentanyl Citrate (Fentanyl 2ml Vial) 25 mcg PRN Q1HR PRN 02/02/17 21:45 Gabapentin (Neurontin) 300 mg BID 02/02/17 21:00 02/10/17 09:02 300 MG Haloperidol Lactate (Haldol) 5 mg PRN Q6HRS PRN 02/02/17 22:45 02/03/17 09:53 DC Insulin Aspart (NovoLOG) 15 units TIDAC 02/03/17 10:00 02/10/17 12:51 15 UNITS Insulin Detemir (Levemir) 20 units QHS 02/03/17 21:00 02/09/17 22:37 20 UNITS Labetalol HCl (Normodyne) 10 mg PRN Q2HR PRN 02/02/17 19:00 Lidocaine HCl (Lidocaine Pf 2% Vial) 5 ml STK-MED ONCE 02/02/17 19:30 02/02/17 19:31 DC Lorazepam (Ativan) 2 mg PRN Q4HRS PRN 02/02/17 22:45 02/03/17 12:58 DC Losartan Potassium (Cozaar) 50 mg DAILY 02/03/17 09:00 02/03/17 11:41 DC 02/03/17 10:19 50 MG Magnesium Hydroxide (Milk Of Magnesia) 2,400 mg PRN Q12HR PRN 02/04/17 09:15 Magnesium Sulfate/ Dextrose 50 ml @ 25 mls/hr PRN DAILY PRN 02/08/17 13:30 Metformin HCl (Glucophage) 500 mg BID 02/02/17 21:00 02/02/17 21:00 DC Ondansetron HCl (Zofran) 4 mg PRN Q4HRS PRN 02/02/17 21:45 Oxycodone HCl (Roxicodone) 5 mg PRN Q3HRS PRN 02/02/17 21:45 Oxycodone/ Acetaminophen (Percocet 5/325) 1 tab PRN QID PRN 02/02/17 19:00 02/05/17 09:31 DC Pantoprazole Sodium (Protonix) 40 mg DAILYAC 02/03/17 07:30 02/10/17 09:01 40 MG Phenylephrine HCl (Hemorrhoidal) 1 supp PRN Q12HR PRN 02/06/17 12:15 Piperacillin Sod/ Tazobactam Sod 3.375 gm/Sodium Chloride 50 ml @ 100 mls/hr Q6HRS 02/03/17 00:00 02/10/17 12:36 100 MLS/HR Piperacillin Sod/ Tazobactam Sod 4.5 gm/Sodium Chloride 100 ml @ 200 mls/hr 1X ONCE 02/02/17 17:00 02/02/17 17:29 DC 02/02/17 17:40 200 MLS/HR Polyethylene Glycol (miraLAX PACKET) 17 gm PRN DAILY PRN 02/02/17 21:45 02/04/17 09:08 17 GM Prochlorperazine Edisylate (Compazine) 10 mg STK-MED ONCE 02/02/17 21:58 02/02/17 21:59 DC Propofol 20 ml @ As Directed STK-MED ONCE 02/02/17 19:30 02/02/17 19:31 DC Ringer's Solution 1,000 ml @ 30 mls/hr Q24H 02/02/17 19:05 02/03/17 07:04 DC 02/02/17 19:33 30 MLS/HR Senna/Docusate Sodium (Senna Plus) 1 tab BID 02/04/17 10:00 02/05/17 09:31 DC 02/04/17 21:49 1 TAB Sodium Chloride 1,000 ml @ 75 mls/hr [id number] 02/04/17 10:45 02/08/17 13:28 DC 02/08/17 05:19 75 MLS/HR Tamsulosin HCl (Flomax) 0.4 mg HS 02/02/17 21:00 02/09/17 22:28 0.4 MG Vancomycin HCl (Vanco Per Pharmacy) 1 each PRN DAILY PRN 02/02/17 19:06 02/05/17 09:05 DC 02/04/17 18:14 1 EACH Vancomycin HCl 1.5 gm/Sodium Chloride 500 ml @ 250 mls/hr Q24H 02/04/17 23:00 02/05/17 09:05 DC 02/04/17 22:47 250 MLS/HR Vancomycin HCl 1.75 gm/Sodium Chloride 500 ml @ 250 mls/hr Q24H 02/03/17 18:00 02/04/17 18:12 DC 02/03/17 18:06 250 MLS/HR Vancomycin HCl 1 gm/Sodium Chloride 250 ml @ 250 mls/hr Q12H 02/03/17 06:00 02/03/17 06:59 Cancel Vancomycin HCl 2 gm/Sodium Chloride 500 ml @ 250 mls/hr 1X ONCE 02/02/17 17:00 02/02/17 18:59 DC 02/02/17 18:13 250 MLS/HR Vitamin D (Vitamin D3) 1,000 unit DAILY 02/03/17 09:00 02/10/17 09:01 1,000 UNIT Lab Laboratory Tests Test 02/09/17 16:34 02/09/17 21:08 02/10/17 06:35 02/10/17 07:25 Glucose (Fingerstick) 215 mg/dL (70-99) 250 mg/dL (70-99) 162 mg/dL (70-99) Sodium Level 147 mmol/L (136-145) Potassium Level 4.0 mmol/L (3.5-5.1) Chloride Level 110 mmol/L (98-107) Carbon Dioxide Level 26 mmol/L (21-32) Anion Gap 11 (6-14) Blood Urea Nitrogen 29 mg/dL (8-26) Creatinine 1.9 mg/dL (0.7-1.3) Estimated GFR (Cockcroft-Gault) 36.0 Glucose Level 170 mg/dL (70-99) Calcium Level 8.3 mg/dL (8.5-10.1) Phosphorus Level 4.3 mg/dL (2.6-4.7) Magnesium Level 1.2 mg/dL (1.8-2.4) Albumin 2.6 g/dL (3.4-5.0) Test 02/10/17 11:13 Glucose (Fingerstick) 207 mg/dL (70-99) TERRIE RUIZ MD Feb 10, 2017 15:42
--- NOTE | 2017-02-10 15:54 | PDOC3 ---
Discharge Summary Visit Information Date of Admission: Feb 02, 2017 Date of Discharge: Feb 10, 2017 Admitting Diagnosis: ankle fracture Final Diagnosis 1. Left ankle fx, left ankle necrotizing fasciitis with oozing wound/bloody dc s/p External fixation 2. BRYCE on CKD 3. ESRD NEW HD 3. DM 2 insulin req, uncontrolled 4. Morbid Obesity BMI 46 5. Anemia, normocytic possible of CKD 6. Allergy/adverse effect to morphine (loopy) 7. HTN, Depression CVA, dyslipidemia - - all chronc stable Problems Medical Problems: (1) Dislocation of tibia, upper, lateral Status: Acute (2) Fractured fibula Status: Acute (3) Necrotizing fasciitis Status: Acute Brief Hospital Course Allergies Allergies Coded Allergies Type Severity Reaction Last Updated Verified morphine Allergy Intermediate 01/05/17 Yes Vital Signs Vital Signs Date Time Temp Pulse Resp B/P (MAP) Pulse Ox O2 Delivery O2 Flow Rate FiO2 02/10/17 11:00 97.7 88 18 155/68 (97) 96 Room Air 97.7 02/09/17 18:21 2.0 Lab Results Laboratory Tests Test 02/08/17 16:56 02/08/17 20:13 02/09/17 05:00 02/09/17 07:48 Glucose (Fingerstick) 109 mg/dL (70-99) 209 mg/dL (70-99) 154 mg/dL (70-99) Hemoglobin 8.3 g/dL (13.0-17.5) Sodium Level 144 mmol/L (136-145) Potassium Level 4.5 mmol/L (3.5-5.1) Chloride Level 109 mmol/L (98-107) Carbon Dioxide Level 25 mmol/L (21-32) Anion Gap 10 (6-14) Blood Urea Nitrogen 30 mg/dL (8-26) Creatinine 1.8 mg/dL (0.7-1.3) Estimated GFR (Cockcroft-Gault) 38.3 Glucose Level 164 mg/dL (70-99) Calcium Level 9.1 mg/dL (8.5-10.1) Phosphorus Level 4.0 mg/dL (2.6-4.7) Magnesium Level 1.2 mg/dL (1.8-2.4) Albumin 2.6 g/dL (3.4-5.0) Test 02/09/17 11:41 02/09/17 16:34 02/09/17 21:08 02/10/17 06:35 Glucose (Fingerstick) 181 mg/dL (70-99) 215 mg/dL (70-99) 250 mg/dL (70-99) Sodium Level 147 mmol/L (136-145) Potassium Level 4.0 mmol/L (3.5-5.1) Chloride Level 110 mmol/L (98-107) Carbon Dioxide Level 26 mmol/L (21-32) Anion Gap 11 (6-14) Blood Urea Nitrogen 29 mg/dL (8-26) Creatinine 1.9 mg/dL (0.7-1.3) Estimated GFR (Cockcroft-Gault) 36.0 Glucose Level 170 mg/dL (70-99) Calcium Level 8.3 mg/dL (8.5-10.1) Phosphorus Level 4.3 mg/dL (2.6-4.7) Magnesium Level 1.2 mg/dL (1.8-2.4) Albumin 2.6 g/dL (3.4-5.0) Test 02/10/17 07:25 02/10/17 11:13 Glucose (Fingerstick) 162 mg/dL (70-99) 207 mg/dL (70-99) Laboratory Tests Test 02/09/17 16:34 02/09/17 21:08 02/10/17 06:35 02/10/17 07:25 Glucose (Fingerstick) 215 mg/dL (70-99) 250 mg/dL (70-99) 162 mg/dL (70-99) Sodium Level 147 mmol/L (136-145) Potassium Level 4.0 mmol/L (3.5-5.1) Chloride Level 110 mmol/L (98-107) Carbon Dioxide Level 26 mmol/L (21-32) Anion Gap 11 (6-14) Blood Urea Nitrogen 29 mg/dL (8-26) Creatinine 1.9 mg/dL (0.7-1.3) Estimated GFR (Cockcroft-Gault) 36.0 Glucose Level 170 mg/dL (70-99) Calcium Level 8.3 mg/dL (8.5-10.1) Phosphorus Level 4.3 mg/dL (2.6-4.7) Magnesium Level 1.2 mg/dL (1.8-2.4) Albumin 2.6 g/dL (3.4-5.0) Test 02/10/17 11:13 Glucose (Fingerstick) 207 mg/dL (70-99) Brief Hospital Course Mr. Soliz is a 62 old male with right leg wound with wound vac. Fell at [facility], new left aknle fracture to OR, now has external fixator, he has been upset about his wifes recent stroke, she is at [facility], he would rehab there he had been getting HD - has been off now > 1 week. cont current, good urine output and creat stable at 2.0 pt and OT and abx, restart plavix, will need stopped when surg planned fro revision Discharge Information Condition at Discharge: Improved Follow Up: Weeks Disposition/Orders: D/C to Another Facility Scheduled Atorvastatin Calcium (Lipitor), 20 MG PO QHS, (Reported) Celecoxib (Celebrex), 200 MG PO BID, (Reported) Cholecalciferol (Vitamin D3) (Vitamin D3), 1 TAB PO DAILY, (Reported) Citalopram Hydrobromide (Citalopram Hbr), 40 MG PO DAILY, (Reported) Clopidogrel Bisulfate (Plavix), 75 MG PO DAILY, (Reported) Esomeprazole Magnesium (Nexium Capsule), 1 CAP PO DAILY, (Reported) Gabapentin (Gabapentin), 300 MG PO BID, (Reported) Insulin Lispro (Humalog), 23 UNIT SQ TIDAC, (Reported) Losartan Potassium (Losartan Potassium), 50 MG PO DAILY, (Reported) Metformin Hcl (Metformin Hcl), 500 MG PO BID, (Reported) Tamsulosin Hcl (Flomax), 0.4 MG PO HS, (Reported) Scheduled PRN Hydrocodone Bit/Acetaminophen (Hydrocodone-Apap 7.5-325 ), 1 TAB PO PRN Q4HRS PRN for MODERATE PAIN Patient Instructions Patient Instructions cont IV zosyn, per ID > 30 min DARYL WANG MD Feb 10, 2017 15:54
== END 2017-02-10 18:45 | DRG 500 ==
LOC: ER 13:36 → 1 WEST ICU 18:08 → 4 NORTH 20:02
PROVIDERS: ADMIT Internal Medicine; ATTEND Internal Medicine
PROC: 0J9R0ZZ Drainage of Left Foot Subcutaneous Tissue and Fascia, Open Approach (ICD-10-PCS; 2017-02-02)
PROC: 0QSHXZZ Reposition Left Tibia, External Approach (ICD-10-PCS; 2017-02-02)
PROC: 02HV33Z Insertion of Infusion Device into Superior Vena Cava, Percutaneous Approach (ICD-10-PCS; principal; 2017-02-02 20:00)
DX: M72.6 Necrotizing fasciitis (principal); G93.41 Metabolic encephalopathy; I63.9 Cerebral infarction, unspecified; N17.0 Acute kidney failure with tubular necrosis; N18.6 End stage renal disease; N12 Tubulo-interstitial nephritis, not specified as acute or chronic; I12.0 Hypertensive chronic kidney disease with stage 5 chronic kidney disease or end stage renal disease; L03.116 Cellulitis of left lower limb; L97.329 Non-pressure chronic ulcer of left ankle with unspecified severity; Z68.42 Body mass index [BMI] 45.0-49.9, adult; L97.419 Non-pressure chronic ulcer of right heel and midfoot with unspecified severity; L02.416 Cutaneous abscess of left lower limb; S82.852A Displaced trimalleolar fracture of left lower leg, initial encounter for closed fracture; S82.66XA Nondisplaced fracture of lateral malleolus of unspecified fibula, initial encounter for closed fracture; D63.1 Anemia in chronic kidney disease; E11.22 Type 2 diabetes mellitus with diabetic chronic kidney disease; E11.42 Type 2 diabetes mellitus with diabetic polyneuropathy; E11.622 Type 2 diabetes mellitus with other skin ulcer; E11.65 Type 2 diabetes mellitus with hyperglycemia; E66.01 Morbid (severe) obesity due to excess calories; E78.00 Pure hypercholesterolemia, unspecified; E78.5 Hyperlipidemia, unspecified; E86.0 Dehydration; F32.9 Major depressive disorder, single episode, unspecified; G47.30 Sleep apnea, unspecified; K21.9 Gastro-esophageal reflux disease without esophagitis; K59.00 Constipation, unspecified; M12.9 Arthropathy, unspecified; R33.9 Retention of urine, unspecified; S93.05XA Dislocation of left ankle joint, initial encounter; Y92.002 Bathroom of unspecified non-institutional (private) residence as the place of occurrence of the external cause; Z74.01 Bed confinement status; Z79.4 Long term (current) use of insulin; Z82.49 Family history of ischemic heart disease and other diseases of the circulatory system; Z83.3 Family history of diabetes mellitus; Z86.73 Personal history of transient ischemic attack (TIA), and cerebral infarction without residual deficits; Z99.2 Dependence on renal dialysis; Y93.89 Activity, other specified; Y99.8 Other external cause status; Z88.5 Allergy status to narcotic agent; Z90.49 Acquired absence of other specified parts of digestive tract
CPT/HCPCS: 36415; 71010; 73610; 73630; 80048; 80053; 80069; 80202; 81001; 82962; 83605; 83735; 84145; 84484; 85007; 85018; 85025; 85610; 85651; 85730; 86140; 86850; 86900; 86901; 86920; 87040; 87071; 87075; 87186; 87205; 87641; 90715; 96361; 96365; 96367; 96375; C1713; J0744; J0780; J0881; J1100; J1630; J1815; J2405; J2543; J2704; J2997; J3010; J3370; J7030; J7040; J7060; J7120; P9016; 97110; 97530; 97535; 99285-25; J2001

== ENCOUNTER 2017-02-19 11:36 | Inpatient (IN) | payer BC ==
[2017-02-19] VITALS (13 sets, daily range): BP systolic 115–179; BP diastolic 65–89
[~2017-02-19] VITALS: Ht 182.9 cm; Wt 160.1 kg
[~2017-02-19 11:36] MED LIST changes: +ASPI325T8 PO; +DOCU-109 PO; +FENT1PAT19 TP; +HYDR-2762 PO; +INSU100C4 SQ; +LORA-434 PO; +PANT40TA5 PO; +PIPE3.377 IV
[2017-02-19] MEDS ORDERED: TAMS0.4C2 PO (11:55)
[2017-02-19 12:09] LABS: BASO # 0.1 x10^3/uL (0.0-0.2); BASO % 1 % (0-3); EOS % 9 % (0-3); LYMPH # 0.7 x10^3/uL (1.0-4.8); LYMPH % 11 % (24-48); MEAN CORPUSCULAR HEMOGLOBIN 32 pg (25-35); MEAN CORPUSCULAR HGB CONC 34 g/dL (31-37); MEAN CORPUSCULAR VOLUME 93 fL (79-100); MONO % 11 % (0-9); NEUT % 68 % (31-73); PLATELET COUNT 145 x10^3/uL (140-400); RED CELL DISTRIBUTION WIDTH 16.2 % (11.5-14.5); WHITE BLOOD COUNT 6.5 x10^3/uL (4.0-11.0)
[2017-02-19] MEDS: IV RINGERS,LACTATED 1000ML 1,000 ML IV SCH ×2 (12:09→20:07)
[2017-02-19 12:12] LABS: HEMATOCRIT 20.5 % (39.0-53.0); HEMOGLOBIN 6.9 g/dL (13.0-17.5)
[2017-02-19] MEDS ORDERED: MIDAZOLAM HCL/PF 2 MG/2 ML VIAL. IV PRN (12:15)
[2017-02-19] MEDS ORDERED: LIDOCAINE 1% 1 ML SYRINGE. ID PRN ×2 (12:15→18:00)
[2017-02-19] MEDS ORDERED: fentaNYL PF VIAL 100 MCG/2 ML VIAL IV PRN ×5 (12:15→19:00)
[2017-02-19 12:29] LABS: CALCIUM 9.1 mg/dL (8.5-10.1); CREATININE 1.5 mg/dL (0.7-1.3); GFR 47.3
[2017-02-19] MEDS ORDERED: ROCURONIUM 100 MG/10 ML VIAL. ONE (13:02)
[2017-02-19] MEDS ORDERED: fentaNYL PF VIAL 250 MCG/5 ML VIAL ONE (13:02)
[2017-02-19] MEDS ORDERED: PROPOFOL 20 ML IV ONE ×2 (13:04→14:57)
[2017-02-19] MEDS ORDERED: SEVOFLURANE > 120 MINUTES. IH ONE (13:04)
[2017-02-19] MEDS ORDERED: DEXAMETHASONE SOD PHOS 20 MG/5 ML VIAL. ONE (13:04)
[2017-02-19] MEDS ORDERED: ONDANSETRON PF 4 MG/2 ML VIAL. ONE (13:04)
[2017-02-19] MEDS ORDERED: LIDOCAINE 2% PF Vial for OR 5 ML VIAL. ONE (13:05)
[2017-02-19] MEDS ORDERED: ceFAZolin 2GM PREMIX 2 GM/50 ML BAG IV ONE (14:00)
[2017-02-19] MEDS ORDERED: NEOSTIGMINE 10 MG/10 ML VIAL. ONE ×2 (14:50→14:51)
[2017-02-19] MEDS ORDERED: GLYCOPYRROLATE 1 MG/5 ML VIAL. ONE (14:50)
[2017-02-19] MEDS ORDERED: PHENYLEPHRINE in 0.9% NACL PF 1 MG/10 ML DISP.SYRIN. IV ONE (15:46)
[2017-02-19 17:07] LABS: HEMATOCRIT 21.3 % (39.0-53.0); HEMOGLOBIN 7.5 g/dL (13.0-17.5); RED BLOOD COUNT 2.34 x10^6/uL (4.30-5.70); RED CELL DISTRIBUTION WIDTH 16.2 % (11.5-14.5); WHITE BLOOD COUNT 8.8 x10^3/uL (4.0-11.0)
[2017-02-19] MEDS ORDERED: IV RINGERS,LACTATED 1000ML 1,000 ML IV SCH (17:58)
[2017-02-19] MEDS ORDERED: ONDANSETRON PF 4 MG/2 ML VIAL. IV PRN ×2 (18:00→19:00)
[2017-02-19] MEDS ORDERED: PROCHLORPERAZINE 10 MG/2 ML VIAL. IV PRN (18:00)
[2017-02-19] MEDS ORDERED: POLYETHYLENE GLYCOL 3350 17 GM PACKET. PO PRN (19:00)
[2017-02-19] MEDS ORDERED: HYDROcodone/APAP 7.5/325MG 1 TAB TABLET PO PRN ×2 (19:00)
[2017-02-19] MEDS ORDERED: DEXTROSE 50% 25 GM / 50ML DISP.SYRIN. IV PRN (19:00)
--- NOTE | 2017-02-19 19:38 | PDOC4 ---
Operative Note Operative Note Date of surgery: 02/19/2017 Preoperative diagnosis: Left ankle fracture dislocation with re-displacement in external fixator Postoperative diagnosis: Same Procedure: Left ankle fracture fixation and fusion with hindfoot nail and supplementary application of external fixator Surgeon: Glenis Anesthesia: GenHemant endotracheal Estimated blood loss: 1000 cc Complications none Operative indications: Patient was treated by Dr. Van for an ankle fracture dislocation with an external fixator and on postoperative follow-up was noted to have displacement of his fracture and essentially equivalent alignment and condition as how he presented with talotibial fracture dislocation. I went over with Mr. Soliz the treatment recommendations and operative options. His situation is particularly challenging due to the other soft tissue compromise on his foot in the presence of his diabetic neuropathy. We talked about the significant challenge of fixation of the joint with plate and screws and I think fusion of the ankle with internal fixation is a much better and reliable mechanically sound option. It would limit the motion of his ankle and also have a chance of not healing due to his risk factors however again I think it's his best chance at healing and avoiding what could otherwise result in a below knee amputation in his leg. All his questions were answered consent was obtained and he agrees to proceed with surgical evaluation and treatment Operative text: Patient was identified procedure verified patient placed in the supine position on the operating table. After adequate amounts of general endotracheal anesthesia were administered, the external fixator parts were removed with the exception of the calcaneal pin and tibial pins. The calcaneal pin was noted to be loose and was prepped and removed from the heel bone. Any other dressings were then removed including a packed wound at the lateral ankle. The wound areas were scrubbed and prepped with Betadine and an overall prep was carried out with ChloraPrep and the left lower extremity was draped in standard sterile fashion. After timeout was performed patient procedure identified and verified, reduction was first attempted under fluoroscopic guidance and with an incision made in the anterior calcaneus area a guidewire was placed under fluoroscopic guidance with the subtalar and ankle joints reduced and in neutral foot flexion a guidewire was. Placed into the tibial shaft. Placement was verified under multiple fluoroscopic views as well as reduction and alignment of all the joints. Over drilling was carried out and a long guidewire was placed up the tibial shaft. Reaming was carried out up to a size 12 which obtained excellent chatter and a size 11 mm x 210 mm length Biomet hindfoot nail was then placed on its alignment guide. Initially a locking screw was placed in the dynamic hole for the fixation of the talus. Proximal locking screws were placed in the dynamic and proximal locking hole from the lateral position. The talotibial joint was then compressed. The insertion guide was then brought posteriorly and the subtalar joint was compressed and aligned and a calcaneal fixation screw was placed in the standard fashion and obtain excellent fixation from the tuberosity to the anterior process. The calcaneal locking screw was then locked in place and the alignment jig removed with hindfoot nail hardware alignment and bony reduction examined under all degrees of fluoroscopic guidance and found to be excellent. Thorough irrigation was carried out normal saline solution bleeding vein was tied off along the medial incision and thorough irrigation carried out normal saline solution skin closure with nylon suture #2 in a trauma fashion to relax any tension on the skin. The lateral wound was packed heel wound was dressed a calcaneal traction pin was placed in the heel and a different position more distal to the calcaneal locking screw fixation of the hindfoot nail and external fixator bars were reapplied and tightened adequately. Excellent stability of this construct was noted sterile dressings were applied and patient was returned to recovery room in stable condition having tolerated procedure well. He was transfused a total of 2 units packed red blood cells intraoperatively and an additional unit of packed red blood cells postoperatively in the recovery room and remained stable and awake at baseline neurovascular status prior to transfer to the medical surgical floor TIFFANY PAYNE MD Feb 19, 2017 19:37
[2017-02-19] MEDS: GABAPENTIN 300 MG CAPSULE. PO SCH (20:52)
[2017-02-19] MEDS: metFORMIN 500 MG TABLET PO SCH (20:52)
[2017-02-19] MEDS: TAMSULOSIN 0.4 MG CAP.ER.24H. PO SCH (20:52)
[2017-02-19] MEDS: ATORVASTATIN CALCIUM 20 MG TABLET PO SCH (20:52)
[2017-02-19] MEDS: CELECOXIB 200 MG CAPSULE. PO SCH (20:52)
[2017-02-19] MEDS ORDERED: TAMSULOSIN 0.4 MG CAP.ER.24H. PO SCH (21:00)
[2017-02-19] MEDS: INSULIN DETEMIR 300 UNITS/3 ML INSULN.PEN. SQ SCH (21:02)
[2017-02-19] MEDS ORDERED: ALTEPLASE 2 MG VIAL INT CAT ONE (23:30)
[2017-02-20] VITALS (9 sets, daily range): BP systolic 107–140; BP diastolic 60–78
[2017-02-20] MEDS ORDERED: [UNRECOGNIZED DRUG - OTHER] IV SCH
[2017-02-20] MEDS ORDERED: PIPERACILLIN TAZO DEXTROSE ISO IV SCH
[2017-02-20] MEDS ORDERED: MAGNESIUM HYDROXIDE 2,400 MG/30 ML ORAL.SUSP. PO PRN (06:00)
[2017-02-20] MEDS: PANTOPRAZOLE 40 MG TABLET.DR. PO SCH (06:30)
[2017-02-20] MEDS: SENNOSIDES/DOCUSATE 8.6/50MG TABLET. PO SCH (09:56)
[2017-02-20] MEDS: GABAPENTIN 300 MG CAPSULE. PO SCH ×2 (09:56→20:17)
[2017-02-20] MEDS: CELECOXIB 200 MG CAPSULE. PO SCH ×2 (09:56→20:17)
[2017-02-20] MEDS: CHOLECALCIFEROL (VITAMIN D3) 1,000 UNIT TABLET PO SCH (09:56)
[2017-02-20] MEDS: TAMSULOSIN 0.4 MG CAP.ER.24H. PO SCH ×2 (09:56→20:17)
[2017-02-20] MEDS: ASPIRIN 325 MG TABLET PO SCH (09:56)
[2017-02-20] MEDS: DOCUSATE SODIUM 100 MG CAPSULE. PO SCH (09:56)
[2017-02-20] MEDS: CLOPIDOGREL BISULFATE 75 MG TABLET PO SCH (09:56)
[2017-02-20] MEDS: CITALOPRAM 20 MG TABLET. PO SCH (09:56)
[2017-02-20] MEDS: metFORMIN 500 MG TABLET PO SCH ×2 (09:57→18:03)
[2017-02-20] MEDS: LOSARTAN POTASSIUM 50 MG TABLET. PO SCH (09:58)
[2017-02-20] MEDS: INSULIN ASPART 300 UNITS/3 ML INSULN.PEN SQ SCH ×3 (10:00→16:57)
[2017-02-20 10:03] LABS: BASO % 1 % (0-3); EOS % 4 % (0-3); HEMOGLOBIN 7.8 g/dL (13.0-17.5); LYMPH # 0.6 x10^3/uL (1.0-4.8); LYMPH % 9 % (24-48); MEAN CORPUSCULAR HEMOGLOBIN 31 pg (25-35); MEAN CORPUSCULAR HGB CONC 34 g/dL (31-37); MEAN CORPUSCULAR VOLUME 92 fL (79-100); MONO % 12 % (0-9); NEUT % 74 % (31-73); PLATELET COUNT 136 x10^3/uL (140-400); WHITE BLOOD COUNT 6.8 x10^3/uL (4.0-11.0)
[2017-02-20 10:08] LABS: CALCIUM 8.4 mg/dL (8.5-10.1); CREATININE 1.6 mg/dL (0.7-1.3); GFR 43.9
[2017-02-20] MEDS: oxyCODONE IR 5 MG TABLET PO PRN (12:06)
[2017-02-20] MEDS ORDERED: PIP/TAZO PER PHARMACY MC PRN (15:30)
[2017-02-20] MEDS ORDERED: BISACODYL 10 MG SUPP.RECT. PR PRN (16:00)
[2017-02-20] MEDS: HYDROcodone/APAP 7.5/325MG 1 TAB TABLET PO PRN ×2 (16:50→20:18)
[2017-02-20] MEDS: PIPERACILLIN/TAZOBACTAM 3.375 GM in IV NORMAL SALINE 50ML 50 ML IV SCH ×2 (16:50→23:36)
--- NOTE | 2017-02-20 16:53 | PDOC1 ---
History and Physical Date of Admission Date of Admission DATE: 02/20/17 TIME: 16:47 Identification/Chief Complaint Chief Complaint ankle pain Problems: Source Source: Chart review, Patient History of Present Illness History of Present Illness I Magdi Hollis from here 02/10 after surg for Left ankle fx, s/p External fixation I first met him 2 months ago at [facility] for wound vac care, leg wound s./p celluitis and necrotizing fasciiits, that is improved he has been at [facility] with his , she has been hospitalized with Myasthenia Gravis, and is slowly improving, having trouble with her eyesight. He had surg with Dr. Van, and wanted a second opinion with Dr. De La Cruz, f/u in clinic this week, and fracture did not seem to be healing properly, taken to OR today for new hardware and screw placement Past Medical History Cardiovascular: HTN, Hyperlipidemia CENTRAL NERVOUS SYSTEM: CVA, Periperal neuropathy, Other GI: GERD Psych: Depression Renal/: Chronic renal insuff, Acute renal failure Endocrine: Diabetes Past Surgical History Past Surgical History: Other Family History Family History: Diabetes, Hypertension Social History Smoke: No ALCOHOL: rare Drugs: None Current Medications Current Medications Current Medications Midazolam HCl (Versed) 2 mg PRN 1X PRN IV PRIOR TO PROCEDURE; Start 02/19/17 at 12:15; Stop 02/20/17 at 12:14; Status DC Fentanyl Citrate (Fentanyl 2ml Vial) 25 mcg PRN Q5MIN PRN IV X 2 DOSES FOR PAIN ; Start 02/19/17 at 12:15; Stop 02/20/17 at 12:14; Status DC Fentanyl Citrate (Fentanyl 2ml Vial) 50 mcg PRN Q5MIN PRN IV X 2 DOSES FOR PAIN ; Start 02/19/17 at 12:15; Stop 02/20/17 at 12:14; Status DC Ringer's Solution 1,000 ml @ 125 mls/hr Q8H IV Last administered on 02/19/17t 12:09; Start 02/19/17 at 12:07; Stop 02/20/17 at 00:06; Status DC Lidocaine HCl 2 ml 1X PRN PRN ID IV START; Start 02/19/17 at 12:15; Stop at 12:14; Status DC Fentanyl Citrate (Fentanyl 5ml Vial) 250 mcg STK-MED ONCE .ROUTE ; Start at 13:02; Stop 02/19/17 at 13:03; Status DC Rocuronium Mcleod (Zemuron) 100 mg STK-MED ONCE .ROUTE ; Start 02/19/17 at 13:02 ; Stop 02/19/17 at 13:03; Status DC Sevoflurane (Ultane) 90 ml STK-MED ONCE IH ; Start 02/19/17 at 13:04; Stop at 13:05; Status DC Propofol 20 ml @ As Directed STK-MED ONCE IV ; Start 02/19/17 at 13:04; Stop 02/19 at 13:05; Status DC Dexamethasone Sodium Phosphate (Decadron) 20 mg STK-MED ONCE .ROUTE ; Start 02/19 at 13:04; Stop 02/19/17 at 13:05; Status DC Ondansetron HCl (Zofran) 4 mg STK-MED ONCE .ROUTE ; Start 02/19/17 at 13:04; Stop 02/19/17 at 13:05; Status DC Lidocaine HCl (Lidocaine Pf 2% Vial) 5 ml STK-MED ONCE .ROUTE ; Start 02/19/17 at 13:05; Stop 02/19/17 at 13:06; Status DC Cefazolin Sodium 50 ml @ As Directed STK-MED ONCE IV ; Start 02/19/17 at 13:50; Stop 02/19/17 at 13:51; Status DC Neostigmine Methylsulfate (Bloxiverz) 10 mg STK-MED ONCE .ROUTE ; Start 02/19/17 at 14:50; Stop 02/19/17 at 14:51; Status DC Glycopyrrolate (Robinul) 1 mg STK-MED ONCE .ROUTE ; Start 02/19/17 at 14:50; Stop 02/19/17 at 14:51; Status DC Neostigmine Methylsulfate (Bloxiverz) 10 mg STK-MED ONCE .ROUTE ; Start 02/19/17 at 14:51; Stop 02/19/17 at 14:52; Status DC Propofol 20 ml @ As Directed STK-MED ONCE IV ; Start 02/19/17 at 14:57; Stop 02/19 at 14:58; Status DC Phenylephrine HCl 1 mg STK-MED ONCE IV ; Start 02/19/17 at 15:46; Stop 02/19/17 at 15:47; Status DC Ondansetron HCl (Zofran) 4 mg PRN Q6HRS PRN IV NAUSEA/VOMITING; Start 02/19/17 at 18:00; Stop 02/19/17 at 20:00; Status DC Fentanyl Citrate (Fentanyl 2ml Vial) 25 mcg PRN Q5MIN PRN IV MILD PAIN; Start 02/19/17 at 18:00; Stop 02/19/17 at 18:06; Status DC Fentanyl Citrate (Fentanyl 2ml Vial) 50 mcg PRN Q5MIN PRN IV MODERATE PAIN; Start 02/19/17 at 18:00; Stop 02/19/17 at 18:05; Status DC Ringer's Solution 1,000 ml @ 30 mls/hr Q24H IV ; Start 02/19/17 at 17:58; Stop 02/20/17 at 05:57; Status DC Lidocaine HCl 2 ml PRN 1X PRN ID PRIOR TO IV START; Start 02/19/17 at 18:00; Stop 02/19/17 at 18:05; Status DC Prochlorperazine Edisylate (Compazine) 5 mg PACU PRN PRN IV NAUSEA, MRX1; Start 02/19/17 at 18:00; Stop 02/19/17 at 20:00; Status DC Oxycodone HCl (Roxicodone) 5 mg PRN Q3HRS PRN PO PAIN Last administered on t 12:06; Start 02/19/17 at 19:00 Fentanyl Citrate (Fentanyl 2ml Vial) 25 mcg PRN Q1HR PRN IV PAIN; Start at 19:00 Senna/Docusate Sodium (Senna Plus) 1 tab DAILY PO Last administered on t 09:56; Start 02/20/17 at 09:00 Polyethylene Glycol (miraLAX PACKET) 17 gm PRN DAILY PRN PO CONSTIPATION; Start 02/19/17 at 19:00 Ondansetron HCl (Zofran) 4 mg PRN Q4HRS PRN IV NAUSEA/VOMITING; Start 02/19/17 at 19:00 Magnesium Hydroxide (Milk Of Magnesia) 2,400 mg 1X PRN PRN PO CONSTIPATION; Start 02/20/17 at 06:00; Stop 02/21/17 at 05:59 Bisacodyl (Dulcolax Supp) 10 mg 1X PRN PRN [place] CONSTIPATION; Start 02/20/17 at 16 :00; Stop 02/21/17 at 15:59 Acetaminophen/ Hydrocodone Bitart (Lortab 7.5/325) 1 tab PRN Q4HRS PRN PO PAIN Last administered on 02/20/17 09:55; Start 02/19/17 at 19:00 Acetaminophen/ Hydrocodone Bitart (Lortab 7.5/325) 2 tab PRN Q4HRS PRN PO PAIN ; Start 02/19/17 at 19:00 Dextrose (Dextrose 50%-Water Syringe) 12.5 gm PRN Q15MIN PRN IV SEE COMMENTS; Start 02/19/17 at 19:00 Cefazolin Sodium 3 gm/Sodium Chloride 100 ml @ 200 mls/hr Q6H IV Last administered on 02/20/17 06:30; Start 02/19/17 at 19:00; Stop 02/20/17 at 07:29; Status DC Aspirin (Omkar Aspirin) 325 mg DAILY PO Last administered on 02/20/17 09:56; Start 02/20/17 at 09:00 Atorvastatin Calcium (Lipitor) 20 mg QHS PO Last administered on 02/19/17 20:52 ; Start 02/19/17 at 21:00 Celecoxib (CeleBREX) 200 mg BID PO Last administered on 02/20/17 09:56; Start 02/19/17 at 21:00 Vitamin D (Vitamin D3) 1,000 unit DAILY PO Last administered on 02/20/17 09:56 ; Start 02/20/17 at 09:00 Clopidogrel Bisulfate (Plavix) 75 mg DAILY PO Last administered on 02/20/17 09: 56; Start 02/20/17 at 09:00 Docusate Sodium (Colace) 100 mg DAILY PO Last administered on 02/20/17 09:56; Start 02/20/17 at 09:00 Fentanyl (Duragesic 75mcg/ Hr Patch) 1 patch Q3DAYS TD ; Start 02/20/17 at 20:00 Acetaminophen/ Hydrocodone Bitart (Lortab 7.5/325) 1 tab PRN Q4HRS PRN PO MODERATE PAIN; Start 02/19/17 at 19:00; Stop 02/19/17 at 19:27; Status DC Losartan Potassium (Cozaar) 50 mg DAILY PO Last administered on 02/20/17 09:58 ; Start 02/20/17 at 09:00 Metformin HCl (Glucophage) 500 mg BIDAFTMEAL PO Last administered on 02/20/17 09:57; Start 02/19/17 at 21:00 Pantoprazole Sodium (Protonix) 40 mg DAILYAC PO Last administered on 02/20/17 06:30; Start 02/20/17 at 07:30 Tamsulosin HCl (Flomax) 0.4 mg BID PO Last administered on 02/20/17 09:56; Start 02/19/17 at 21:00 Tamsulosin HCl (Flomax) 0.4 mg HS PO ; Start 02/19/17 at 21:00; Stop 02/19/17 at 21:00; Status DC Citalopram Hydrobromide (CeleXA) 40 mg DAILY PO Last administered on 02/20/17 09:56; Start 02/20/17 at 09:00 Gabapentin (Neurontin) 300 mg BID PO Last administered on 02/20/17 09:56; Start 02/19/17 at 21:00 Insulin Aspart (NovoLOG) 15 units TIDAC SQ Last administered on 02/20/17 12:10 ; Start 02/20/17 at 07:30 Insulin Detemir (Levemir) 22 units QHS SQ Last administered on 02/19/17 21:02; Start 02/19/17 at 21:00 Non-Formulary Medication 3.375 gm Q6HRS IV ; Start 02/20/17 at 00:00; Stop at 00:00; Status DC Alteplase, Recombinant (Cathflo) 2 mg 1X ONCE INT CAT Last administered on 02/19 23:32; Start 02/19/17 at 23:30; Stop 02/19/17 at 23:31; Status DC Piperacillin Sod/ Tazobactam Sod (Zosyn Per Pharmacy) 1 each PRN DAILY PRN MC SEE COMMENTS; Start 02/20/17 at 15:30 Piperacillin Sod/ Tazobactam Sod 3.375 gm/Sodium Chloride 50 ml @ 100 mls/hr Q6HRS IV ; Start 02/20/17 at 15:30 Active Scripts Active Hydrocodone-Apap 7.5-325 (Hydrocodone Bit/Acetaminophen) 1 Each Tablet 1 Tab PO PRN Q4HRS PRN Reported Tamsulosin Hcl 0.4 Mg Cap.er.24h 1 Cap PO DAILY Zosyn 3.375 Gm Galaxy Bag (Zadrwclrajjs-Vfwo-Omvltqse,Iso) 3.375 Gm/50 Ml Froz.piggy 3.375 Gm IV Q6HRS Novolog (Insulin Aspart) 100 Unit/1 Ml Cartridge 15 Unit SQ TIDAC Pantoprazole Sodium 40 Mg Tablet.dr 40 Mg PO DAILY Levemir (Insulin Detemir) 100 Unit/1 Ml Vial 22 Unit SQ HS FENTANYL 75mcg/hr (Fentanyl) 1 Each Patch.td72 1 Patch TP Q3DAYS Colace (Docusate Sodium) 100 Mg Capsule 1 Cap PO DAILY Aspirin 325 Mg Tablet 1 Tab PO DAILY Vitamin D3 (Cholecalciferol (Vitamin D3)) 1,000 Unit Tablet 1 Tab PO DAILY Losartan Potassium 50 Mg Tablet 50 Mg PO DAILY Gabapentin 300 Mg Capsule 300 Mg PO BID Celebrex (Celecoxib) 200 Mg Capsule 200 Mg PO BID 30 Days Citalopram Hbr (Citalopram Hydrobromide) 40 Mg Tablet 40 Mg PO DAILY Lipitor (Atorvastatin Calcium) 20 Mg Tablet 20 Mg PO QHS Flomax (Tamsulosin Hcl) 0.4 Mg Cap.er.24h 0.4 Mg PO HS Metformin Hcl 500 Mg Tablet 500 Mg PO BID Plavix (Clopidogrel Bisulfate) 75 Mg Tablet 75 Mg PO DAILY Allergies Allergies: Coded Allergies: morphine (Verified Allergy, Intermediate, 02/19/17) causes hallucinations ROS General: YES: Fatigue, No: Chills, Night Sweats, Malaise, Appetite, Other PSYCHOLOGICAL ROS: YES: Other, No: Anxiety, Behavioral Disorder, Concentration difficultie, Decreased libido , Depression, Disorientation, Hallucinations, Hostility, Irritablity, Memory difficulties, Mood Swings, Obsessive thoughts Eyes: No Blurry vision, No Decreased vision, No Double vision, No Dry eyes, No Excessive tearing, No Eye Pain, No Itchy Eyes, No Loss of vision, No Photophobia , No Scotomata, No Uses contacts, No Uses glasses, No Other HEENT: No: Heacaches, Visual Changes, Hearing change, Nasal congestion, Nasal discharge, Oral lesions, Sinus pain, Sore Throat, Epistaxis, Sneezing, Snoring, Tinnitus, Vertigo, Vocal changes, Other Respiratory: No: Cough, Hemoptysis, Orthopnea, Pleuritic Pain, Shortness of breath, SOB with excertion, Sputum Changes, Stridor, Tachypnea, Wheezing, Other Cardiovascular: No Chest Pain, No Palpitations, No Orthopnea, No Paroxysmal Noc. Dyspnea, No Edema, No Lt Headedness, No Other Gastrointestinal: Yes Nausea, No Vomiting, No Abdominal Pain, No Diarrhea, No Constipation, No Melena, No Hematochezia, No Other Genitourinary: No Dysuria, No Frequency, No Incontinence, No Hematuria, No Retention, No Discharge, No Urgency, No Pain, No Flank Pain, No Other, No , No , No , No , No , No , No Musculoskeletal: Yes Gait Disturbance, Yes Joint Pain, Yes Joint Stiffness Neurological: Yes Gait Disturbance, No Behavorial Changes, No Bowel/Bladder ControlChng, No Confusion, No Dizziness, No Headaches, No Impaired Coord/balance, No Memory Loss, No Numbness/ Tingling, No Seizures, No Speech Problems, No Tremors, No Visual Changes, No Weakness, No Other Skin: No Dry Skin, No Eczema, No Hair Changes, No Lumps, No Mole Changes, No Mottling, No Nail Changes, No Pruritus, No Rash, No Skin Lesion Changes, No Other, No Acne Physical Exam General: Alert, No acute distress HEENT: Atraumatic, PERRLA, EOMI Lungs: Clear to auscultation, Normal air movement Heart: no gallops, no murmurs Abdomen: Normal bowel sounds, Soft (obese) Extremities: No clubbing, Other (ttr edema, ext. hardware to LLE) Skin: No breakdown, Other Neuro: Normal speech, Cranial nerves 3-12 NL Psych/Mental Status: Mental status NL, Mood NL Vitals Vitals Vital Signs Date Time Temp Pulse Resp B/P (MAP) Pulse Ox O2 Delivery O2 Flow Rate FiO2 02/20/17 15:00 97.9 92 20 111/66 (81) 94 Room Air 97.9 02/20/17 11:00 2.0 Labs Labs Laboratory Tests Test 02/19/17 12:00 02/19/17 16:58 02/19/17 17:46 02/19/17 20:58 White Blood Count 6.5 x10^3/uL (4.0-11.0) 8.8 x10^3/uL (4.0-11.0) Red Blood Count 2.20 x10^6/uL (4.30-5.70) 2.34 x10^6/uL (4.30-5.70) Hemoglobin 6.9 g/dL (13.0-17.5) 7.5 g/dL (13.0-17.5) Hematocrit 20.5 % (39.0-53.0) 21.3 % (39.0-53.0) Mean Corpuscular Volume 93 fL (79-100) 91 fL (79-100) Mean Corpuscular Hemoglobin 32 pg (25-35) 32 pg (25-35) Mean Corpuscular Hemoglobin Concent 34 g/dL (31-37) 35 g/dL (31-37) Red Cell Distribution Width 16.2 % (11.5-14.5) 16.2 % (11.5-14.5) Platelet Count 145 x10^3/uL (140-400) 160 x10^3/uL (140-400) Neutrophils (%) (Auto) 68 % (31-73) Lymphocytes (%) (Auto) 11 % (24-48) Monocytes (%) (Auto) 11 % (0-9) Eosinophils (%) (Auto) 9 % (0-3) Basophils (%) (Auto) 1 % (0-3) Neutrophils # (Auto) 4.4 x10^3uL (1.8-7.7) Lymphocytes # (Auto) 0.7 x10^3/uL (1.0-4.8) Monocytes # (Auto) 0.7 x10^3/uL (0.0-1.1) Eosinophils # (Auto) 0.6 x10^3/uL (0.0-0.7) Basophils # (Auto) 0.1 x10^3/uL (0.0-0.2) Sodium Level 142 mmol/L (136-145) Potassium Level 4.0 mmol/L (3.5-5.1) Chloride Level 105 mmol/L (98-107) Carbon Dioxide Level 25 mmol/L (21-32) Anion Gap 12 (6-14) Blood Urea Nitrogen 20 mg/dL (8-26) Creatinine 1.5 mg/dL (0.7-1.3) Estimated GFR (Cockcroft-Gault) 47.3 Glucose Level 137 mg/dL (70-99) Calcium Level 9.1 mg/dL (8.5-10.1) Glucose (Fingerstick) 174 mg/dL (70-99) 197 mg/dL (70-99) Test 02/20/17 08:01 02/20/17 09:35 02/20/17 11:31 02/20/17 16:15 Glucose (Fingerstick) 150 mg/dL (70-99) 161 mg/dL (70-99) 169 mg/dL (70-99) White Blood Count 6.8 x10^3/uL (4.0-11.0) Red Blood Count 2.50 x10^6/uL (4.30-5.70) Hemoglobin 7.8 g/dL (13.0-17.5) Hematocrit 23.0 % (39.0-53.0) Mean Corpuscular Volume 92 fL (79-100) Mean Corpuscular Hemoglobin 31 pg (25-35) Mean Corpuscular Hemoglobin Concent 34 g/dL (31-37) Red Cell Distribution Width 16.0 % (11.5-14.5) Platelet Count 136 x10^3/uL (140-400) Neutrophils (%) (Auto) 74 % (31-73) Lymphocytes (%) (Auto) 9 % (24-48) Monocytes (%) (Auto) 12 % (0-9) Eosinophils (%) (Auto) 4 % (0-3) Basophils (%) (Auto) 1 % (0-3) Neutrophils # (Auto) 5.1 x10^3uL (1.8-7.7) Lymphocytes # (Auto) 0.6 x10^3/uL (1.0-4.8) Monocytes # (Auto) 0.8 x10^3/uL (0.0-1.1) Eosinophils # (Auto) 0.3 x10^3/uL (0.0-0.7) Basophils # (Auto) 0.0 x10^3/uL (0.0-0.2) Sodium Level 142 mmol/L (136-145) Potassium Level 4.0 mmol/L (3.5-5.1) Chloride Level 106 mmol/L (98-107) Carbon Dioxide Level 27 mmol/L (21-32) Anion Gap 9 (6-14) Blood Urea Nitrogen 24 mg/dL (8-26) Creatinine 1.6 mg/dL (0.7-1.3) Estimated GFR (Cockcroft-Gault) 43.9 Glucose Level 190 mg/dL (70-99) Calcium Level 8.4 mg/dL (8.5-10.1) Laboratory Tests Test 02/19/17 16:58 02/19/17 17:46 02/19/17 20:58 02/20/17 08:01 White Blood Count 8.8 x10^3/uL (4.0-11.0) Red Blood Count 2.34 x10^6/uL (4.30-5.70) Hemoglobin 7.5 g/dL (13.0-17.5) Hematocrit 21.3 % (39.0-53.0) Mean Corpuscular Volume 91 fL (79-100) Mean Corpuscular Hemoglobin 32 pg (25-35) Mean Corpuscular Hemoglobin Concent 35 g/dL (31-37) Red Cell Distribution Width 16.2 % (11.5-14.5) Platelet Count 160 x10^3/uL (140-400) Glucose (Fingerstick) 174 mg/dL (70-99) 197 mg/dL (70-99) 150 mg/dL (70-99) Test 02/20/17 09:35 02/20/17 11:31 02/20/17 16:15 White Blood Count 6.8 x10^3/uL (4.0-11.0) Red Blood Count 2.50 x10^6/uL (4.30-5.70) Hemoglobin 7.8 g/dL (13.0-17.5) Hematocrit 23.0 % (39.0-53.0) Mean Corpuscular Volume 92 fL (79-100) Mean Corpuscular Hemoglobin 31 pg (25-35) Mean Corpuscular Hemoglobin Concent 34 g/dL (31-37) Red Cell Distribution Width 16.0 % (11.5-14.5) Platelet Count 136 x10^3/uL (140-400) Neutrophils (%) (Auto) 74 % (31-73) Lymphocytes (%) (Auto) 9 % (24-48) Monocytes (%) (Auto) 12 % (0-9) Eosinophils (%) (Auto) 4 % (0-3) Basophils (%) (Auto) 1 % (0-3) Neutrophils # (Auto) 5.1 x10^3uL (1.8-7.7) Lymphocytes # (Auto) 0.6 x10^3/uL (1.0-4.8) Monocytes # (Auto) 0.8 x10^3/uL (0.0-1.1) Eosinophils # (Auto) 0.3 x10^3/uL (0.0-0.7) Basophils # (Auto) 0.0 x10^3/uL (0.0-0.2) Sodium Level 142 mmol/L (136-145) Potassium Level 4.0 mmol/L (3.5-5.1) Chloride Level 106 mmol/L (98-107) Carbon Dioxide Level 27 mmol/L (21-32) Anion Gap 9 (6-14) Blood Urea Nitrogen 24 mg/dL (8-26) Creatinine 1.6 mg/dL (0.7-1.3) Estimated GFR (Cockcroft-Gault) 43.9 Glucose Level 190 mg/dL (70-99) Calcium Level 8.4 mg/dL (8.5-10.1) Glucose (Fingerstick) 161 mg/dL (70-99) 169 mg/dL (70-99) VTE Prophylaxis Ordered VTE Prophylaxis Devices: No VTE Pharmacological Prophylaxi: Yes Assessment/Plan Assessment/Plan left lower leg fracture, poorly healing left ankle fracture with external hardware replaced today morbid obesity, BMI 47 DM2, insulin req weakness and debility prior cellulitis and wound vac for fasciitis . BRYCE on CKD, recent hemodialysis a month ago, improved UO stable Anemia, normocytic of CKD . HTN, Depression, , dyslipidemia - - DARYL WANG MD Feb 20, 2017 16:53
[2017-02-20] MEDS: ATORVASTATIN CALCIUM 20 MG TABLET PO SCH (20:17)
[2017-02-20] MEDS: fentaNYL 75MCG/HR PATCH 1 PATCH PATCH.TD72 TD SCH (20:18)
--- NOTE | 2017-02-20 20:54 | PDOC ---
PROGRESS NOTES Subjective Subjective Problems overnight: Pain well controlled no complaints Objective Vital Signs Vital Signs Date Time Temp Pulse Resp B/P (MAP) Pulse Ox O2 Delivery O2 Flow Rate FiO2 02/20/17 20:18 20 94 Room Air 02/20/17 19:00 98.1 91 107/60 (76) 98.1 02/20/17 11:00 2.0 Physical Exam dressings changed neuro at baseline, neuropathic pin sites and incisions ok lateral wound improving, packed Labs Laboratory Tests Test 02/19/17 12:00 02/19/17 16:58 02/19/17 17:46 02/19/17 20:58 White Blood Count 6.5 x10^3/uL (4.0-11.0) 8.8 x10^3/uL (4.0-11.0) Red Blood Count 2.20 x10^6/uL (4.30-5.70) 2.34 x10^6/uL (4.30-5.70) Hemoglobin 6.9 g/dL (13.0-17.5) 7.5 g/dL (13.0-17.5) Hematocrit 20.5 % (39.0-53.0) 21.3 % (39.0-53.0) Mean Corpuscular Volume 93 fL (79-100) 91 fL (79-100) Mean Corpuscular Hemoglobin 32 pg (25-35) 32 pg (25-35) Mean Corpuscular Hemoglobin Concent 34 g/dL (31-37) 35 g/dL (31-37) Red Cell Distribution Width 16.2 % (11.5-14.5) 16.2 % (11.5-14.5) Platelet Count 145 x10^3/uL (140-400) 160 x10^3/uL (140-400) Neutrophils (%) (Auto) 68 % (31-73) Lymphocytes (%) (Auto) 11 % (24-48) Monocytes (%) (Auto) 11 % (0-9) Eosinophils (%) (Auto) 9 % (0-3) Basophils (%) (Auto) 1 % (0-3) Neutrophils # (Auto) 4.4 x10^3uL (1.8-7.7) Lymphocytes # (Auto) 0.7 x10^3/uL (1.0-4.8) Monocytes # (Auto) 0.7 x10^3/uL (0.0-1.1) Eosinophils # (Auto) 0.6 x10^3/uL (0.0-0.7) Basophils # (Auto) 0.1 x10^3/uL (0.0-0.2) Sodium Level 142 mmol/L (136-145) Potassium Level 4.0 mmol/L (3.5-5.1) Chloride Level 105 mmol/L (98-107) Carbon Dioxide Level 25 mmol/L (21-32) Anion Gap 12 (6-14) Blood Urea Nitrogen 20 mg/dL (8-26) Creatinine 1.5 mg/dL (0.7-1.3) Estimated GFR (Cockcroft-Gault) 47.3 Glucose Level 137 mg/dL (70-99) Calcium Level 9.1 mg/dL (8.5-10.1) Glucose (Fingerstick) 174 mg/dL (70-99) 197 mg/dL (70-99) Test 02/20/17 08:01 02/20/17 09:35 02/20/17 11:31 02/20/17 16:15 Glucose (Fingerstick) 150 mg/dL (70-99) 161 mg/dL (70-99) 169 mg/dL (70-99) White Blood Count 6.8 x10^3/uL (4.0-11.0) Red Blood Count 2.50 x10^6/uL (4.30-5.70) Hemoglobin 7.8 g/dL (13.0-17.5) Hematocrit 23.0 % (39.0-53.0) Mean Corpuscular Volume 92 fL (79-100) Mean Corpuscular Hemoglobin 31 pg (25-35) Mean Corpuscular Hemoglobin Concent 34 g/dL (31-37) Red Cell Distribution Width 16.0 % (11.5-14.5) Platelet Count 136 x10^3/uL (140-400) Neutrophils (%) (Auto) 74 % (31-73) Lymphocytes (%) (Auto) 9 % (24-48) Monocytes (%) (Auto) 12 % (0-9) Eosinophils (%) (Auto) 4 % (0-3) Basophils (%) (Auto) 1 % (0-3) Neutrophils # (Auto) 5.1 x10^3uL (1.8-7.7) Lymphocytes # (Auto) 0.6 x10^3/uL (1.0-4.8) Monocytes # (Auto) 0.8 x10^3/uL (0.0-1.1) Eosinophils # (Auto) 0.3 x10^3/uL (0.0-0.7) Basophils # (Auto) 0.0 x10^3/uL (0.0-0.2) Sodium Level 142 mmol/L (136-145) Potassium Level 4.0 mmol/L (3.5-5.1) Chloride Level 106 mmol/L (98-107) Carbon Dioxide Level 27 mmol/L (21-32) Anion Gap 9 (6-14) Blood Urea Nitrogen 24 mg/dL (8-26) Creatinine 1.6 mg/dL (0.7-1.3) Estimated GFR (Cockcroft-Gault) 43.9 Glucose Level 190 mg/dL (70-99) Calcium Level 8.4 mg/dL (8.5-10.1) Laboratory Tests Test 02/19/17 20:58 02/20/17 08:01 02/20/17 09:35 02/20/17 11:31 Glucose (Fingerstick) 197 mg/dL (70-99) 150 mg/dL (70-99) 161 mg/dL (70-99) White Blood Count 6.8 x10^3/uL (4.0-11.0) Red Blood Count 2.50 x10^6/uL (4.30-5.70) Hemoglobin 7.8 g/dL (13.0-17.5) Hematocrit 23.0 % (39.0-53.0) Mean Corpuscular Volume 92 fL (79-100) Mean Corpuscular Hemoglobin 31 pg (25-35) Mean Corpuscular Hemoglobin Concent 34 g/dL (31-37) Red Cell Distribution Width 16.0 % (11.5-14.5) Platelet Count 136 x10^3/uL (140-400) Neutrophils (%) (Auto) 74 % (31-73) Lymphocytes (%) (Auto) 9 % (24-48) Monocytes (%) (Auto) 12 % (0-9) Eosinophils (%) (Auto) 4 % (0-3) Basophils (%) (Auto) 1 % (0-3) Neutrophils # (Auto) 5.1 x10^3uL (1.8-7.7) Lymphocytes # (Auto) 0.6 x10^3/uL (1.0-4.8) Monocytes # (Auto) 0.8 x10^3/uL (0.0-1.1) Eosinophils # (Auto) 0.3 x10^3/uL (0.0-0.7) Basophils # (Auto) 0.0 x10^3/uL (0.0-0.2) Sodium Level 142 mmol/L (136-145) Potassium Level 4.0 mmol/L (3.5-5.1) Chloride Level 106 mmol/L (98-107) Carbon Dioxide Level 27 mmol/L (21-32) Anion Gap 9 (6-14) Blood Urea Nitrogen 24 mg/dL (8-26) Creatinine 1.6 mg/dL (0.7-1.3) Estimated GFR (Cockcroft-Gault) 43.9 Glucose Level 190 mg/dL (70-99) Calcium Level 8.4 mg/dL (8.5-10.1) Test 02/20/17 16:15 Glucose (Fingerstick) 169 mg/dL (70-99) Assessment Assessment POD# [1], S/P [ankle fusion, revision ext fixator] Problems: Plan Plan of Care Non wt bearing l leg will get heel protector on right sugars better controlled Hb 7.8 asymptomatic D/C to SNF when stable TIFFANY PAYNE MD Feb 20, 2017 20:54
[2017-02-20 21:03] LABS: HEMATOCRIT 20.2 % (39.0-53.0); HEMOGLOBIN 6.9 g/dL (13.0-17.5)
[2017-02-20] MEDS: INSULIN DETEMIR 300 UNITS/3 ML INSULN.PEN. SQ SCH (21:36)
[2017-02-21] VITALS (12 sets, daily range): BP systolic 105–148; BP diastolic 65–89
[2017-02-21] MEDS: PIPERACILLIN/TAZOBACTAM 3.375 GM in IV NORMAL SALINE 50ML 50 ML IV SCH ×4 (05:45→22:27)
[2017-02-21 05:55] LABS: BASO % 0 % (0-3); EOS % 6 % (0-3); LYMPH # 0.6 x10^3/uL (1.0-4.8); LYMPH % 10 % (24-48); MEAN CORPUSCULAR HEMOGLOBIN 32 pg (25-35); MEAN CORPUSCULAR HGB CONC 35 g/dL (31-37); MEAN CORPUSCULAR VOLUME 92 fL (79-100); MONO % 14 % (0-9); NEUT % 70 % (31-73); PLATELET COUNT 128 x10^3/uL (140-400); RED BLOOD COUNT 2.18 x10^6/uL (4.30-5.70); RED CELL DISTRIBUTION WIDTH 16.5 % (11.5-14.5); WHITE BLOOD COUNT 5.6 x10^3/uL (4.0-11.0)
[2017-02-21 06:06] LABS: ALBUMIN/GLOBULIN RATIO 0.5 (1.0-1.7); CALCIUM 8.3 mg/dL (8.5-10.1); CREATININE 1.6 mg/dL (0.7-1.3); GFR 43.9; POTASSIUM 4.1 mmol/L (3.5-5.1); TOTAL BILIRUBIN 0.2 mg/dL (0.2-1.0); TOTAL PROTEIN 5.9 g/dL (6.4-8.2)
[2017-02-21] MEDS: metFORMIN 500 MG TABLET PO SCH ×2 (07:46→17:29)
[2017-02-21] MEDS: TAMSULOSIN 0.4 MG CAP.ER.24H. PO SCH ×2 (07:46→20:13)
[2017-02-21] MEDS: CELECOXIB 200 MG CAPSULE. PO SCH ×2 (07:46→20:13)
[2017-02-21] MEDS: ASPIRIN 325 MG TABLET PO SCH (07:46)
[2017-02-21] MEDS: PANTOPRAZOLE 40 MG TABLET.DR. PO SCH (07:46)
[2017-02-21] MEDS: CITALOPRAM 20 MG TABLET. PO SCH (07:46)
[2017-02-21] MEDS: SENNOSIDES/DOCUSATE 8.6/50MG TABLET. PO SCH (07:46)
[2017-02-21] MEDS: CLOPIDOGREL BISULFATE 75 MG TABLET PO SCH (07:46)
[2017-02-21] MEDS: CHOLECALCIFEROL (VITAMIN D3) 1,000 UNIT TABLET PO SCH (07:47)
[2017-02-21] MEDS: LOSARTAN POTASSIUM 50 MG TABLET. PO SCH (07:47)
[2017-02-21] MEDS: DOCUSATE SODIUM 100 MG CAPSULE. PO SCH (07:47)
[2017-02-21] MEDS: GABAPENTIN 300 MG CAPSULE. PO SCH ×2 (07:47→20:13)
--- NOTE | 2017-02-21 07:48 | RAD ---
Portable chest, 02/20/2017: History: Check PICC placement Comparison is made to a study from 02/03/2017. The right jugular dialysis type catheter has been removed. A left PICC is in place with its tip directed laterally to the right in the superior vena cava. The heart size and pulmonary vascularity are normal. No pulmonary infiltrates are seen. There is no evidence of pleural fluid. IMPRESSION: 1. The left PICC extends into the superior vena cava. 2. No acute cardiopulmonary abnormality is detected.
[2017-02-21] MEDS: INSULIN ASPART 300 UNITS/3 ML INSULN.PEN SQ SCH ×3 (07:54→17:34)
--- NOTE | 2017-02-21 11:07 | PDOC2 ---
CONSULT Date of Consult Date of Consult DATE: 02/21/17 TIME: 10:56 Reason for Consult Reason for Consult: Anemia Source Source: Chart review, Patient History of Present Illness Reason for Visit: Bunny is a 62 yo male with pmh sig htn, hyper chol, previous cva, neuropathy, GERD, DM and was recently on HD (Now is off) was admitted for L ankle fusion and revision of external fixation. I was consulted for anemia. He denies any bleeding, dark or tarry stools or change in bowel habits. He is currently not symptomatic from his anemia. Past Medical History Cardiovascular: HTN, Hyperlipidemia CENTRAL NERVOUS SYSTEM: CVA, Periperal neuropathy, Other GI: GERD Psych: Depression Renal/: Chronic renal insuff, Acute renal failure Endocrine: Diabetes Past Surgical History Past Surgical History: Other Family History Family History: Diabetes, Hypertension Social History No ALCOHOL: rare Drugs: None Lives: with Family Current Medications Current Medications Current Medications Midazolam HCl (Versed) 2 mg PRN 1X PRN IV PRIOR TO PROCEDURE; Start 02/19/17 at 12:15; Stop 02/20/17 at 12:14; Status DC Fentanyl Citrate (Fentanyl 2ml Vial) 25 mcg PRN Q5MIN PRN IV X 2 DOSES FOR PAIN ; Start 02/19/17 at 12:15; Stop 02/20/17 at 12:14; Status DC Fentanyl Citrate (Fentanyl 2ml Vial) 50 mcg PRN Q5MIN PRN IV X 2 DOSES FOR PAIN ; Start 02/19/17 at 12:15; Stop 02/20/17 at 12:14; Status DC Ringer's Solution 1,000 ml @ 125 mls/hr Q8H IV Last administered on 02/19/17t 12:09; Start 02/19/17 at 12:07; Stop 02/20/17 at 00:06; Status DC Lidocaine HCl 2 ml 1X PRN PRN ID IV START; Start 02/19/17 at 12:15; Stop at 12:14; Status DC Fentanyl Citrate (Fentanyl 5ml Vial) 250 mcg STK-MED ONCE .ROUTE ; Start at 13:02; Stop 02/19/17 at 13:03; Status DC Rocuronium [place] (Zemuron) 100 mg STK-MED ONCE .ROUTE ; Start 02/19/17 at 13:02 ; Stop 02/19/17 at 13:03; Status DC Sevoflurane (Ultane) 90 ml STK-MED ONCE IH ; Start 02/19/17 at 13:04; Stop at 13:05; Status DC Propofol 20 ml @ As Directed STK-MED ONCE IV ; Start 02/19/17 at 13:04; Stop 02/19 at 13:05; Status DC Dexamethasone Sodium Phosphate (Decadron) 20 mg STK-MED ONCE .ROUTE ; Start 02/19 at 13:04; Stop 02/19/17 at 13:05; Status DC Ondansetron HCl (Zofran) 4 mg STK-MED ONCE .ROUTE ; Start 02/19/17 at 13:04; Stop 02/19/17 at 13:05; Status DC Lidocaine HCl (Lidocaine Pf 2% Vial) 5 ml STK-MED ONCE .ROUTE ; Start 02/19/17 at 13:05; Stop 02/19/17 at 13:06; Status DC Cefazolin Sodium 50 ml @ As Directed STK-MED ONCE IV ; Start 02/19/17 at 13:50; Stop 02/19/17 at 13:51; Status DC Neostigmine Methylsulfate (Bloxiverz) 10 mg STK-MED ONCE .ROUTE ; Start 02/19/17 at 14:50; Stop 02/19/17 at 14:51; Status DC Glycopyrrolate (Robinul) 1 mg STK-MED ONCE .ROUTE ; Start 02/19/17 at 14:50; Stop 02/19/17 at 14:51; Status DC Neostigmine Methylsulfate (Bloxiverz) 10 mg STK-MED ONCE .ROUTE ; Start 02/19/17 at 14:51; Stop 02/19/17 at 14:52; Status DC Propofol 20 ml @ As Directed STK-MED ONCE IV ; Start 02/19/17 at 14:57; Stop 02/19 at 14:58; Status DC Phenylephrine HCl 1 mg STK-MED ONCE IV ; Start 02/19/17 at 15:46; Stop 02/19/17 at 15:47; Status DC Ondansetron HCl (Zofran) 4 mg PRN Q6HRS PRN IV NAUSEA/VOMITING; Start 02/19/17 at 18:00; Stop 02/19/17 at 20:00; Status DC Fentanyl Citrate (Fentanyl 2ml Vial) 25 mcg PRN Q5MIN PRN IV MILD PAIN; Start 02/19/17 at 18:00; Stop 02/19/17 at 18:06; Status DC Fentanyl Citrate (Fentanyl 2ml Vial) 50 mcg PRN Q5MIN PRN IV MODERATE PAIN; Start 02/19/17 at 18:00; Stop 02/19/17 at 18:05; Status DC Ringer's Solution 1,000 ml @ 30 mls/hr Q24H IV ; Start 02/19/17 at 17:58; Stop 02/20/17 at 05:57; Status DC Lidocaine HCl 2 ml PRN 1X PRN ID PRIOR TO IV START; Start 02/19/17 at 18:00; Stop 02/19/17 at 18:05; Status DC Prochlorperazine Edisylate (Compazine) 5 mg PACU PRN PRN IV NAUSEA, MRX1; Start 02/19/17 at 18:00; Stop 02/19/17 at 20:00; Status DC Oxycodone HCl (Roxicodone) 5 mg PRN Q3HRS PRN PO PAIN Last administered on t 12:06; Start 02/19/17 at 19:00 Fentanyl Citrate (Fentanyl 2ml Vial) 25 mcg PRN Q1HR PRN IV PAIN; Start at 19:00 Senna/Docusate Sodium (Senna Plus) 1 tab DAILY PO Last administered on t 07:46; Start 02/20/17 at 09:00 Polyethylene Glycol (miraLAX PACKET) 17 gm PRN DAILY PRN PO CONSTIPATION; Start 02/19/17 at 19:00 Ondansetron HCl (Zofran) 4 mg PRN Q4HRS PRN IV NAUSEA/VOMITING; Start 02/19/17 at 19:00 Magnesium Hydroxide (Milk Of Magnesia) 2,400 mg 1X PRN PRN PO CONSTIPATION; Start 02/20/17 at 06:00; Stop 02/21/17 at 05:59; Status DC Bisacodyl (Dulcolax Supp) 10 mg 1X PRN PRN CA CONSTIPATION; Start 02/20/17 at 16 :00; Stop 02/21/17 at 15:59 Acetaminophen/ Hydrocodone Bitart (Lortab 7.5/325) 1 tab PRN Q4HRS PRN PO PAIN Last administered on 02/20/17 09:55; Start 02/19/17 at 19:00 Acetaminophen/ Hydrocodone Bitart (Lortab 7.5/325) 2 tab PRN Q4HRS PRN PO PAIN Last administered on 02/20/17 20:18; Start 02/19/17 at 19:00 Dextrose (Dextrose 50%-Water Syringe) 12.5 gm PRN Q15MIN PRN IV SEE COMMENTS; Start 02/19/17 at 19:00 Cefazolin Sodium 3 gm/Sodium Chloride 100 ml @ 200 mls/hr Q6H IV Last administered on 02/20/17 06:30; Start 02/19/17 at 19:00; Stop 02/20/17 at 07:29; Status DC Aspirin (Omkar Aspirin) 325 mg DAILY PO Last administered on 02/21/17 07:46; Start 02/20/17 at 09:00 Atorvastatin Calcium (Lipitor) 20 mg QHS PO Last administered on 02/20/17 20:17 ; Start 02/19/17 at 21:00 Celecoxib (CeleBREX) 200 mg BID PO Last administered on 02/21/17 07:46; Start 02/19/17 at 21:00 Vitamin D (Vitamin D3) 1,000 unit DAILY PO Last administered on 02/21/17 07:47 ; Start 02/20/17 at 09:00 Clopidogrel Bisulfate (Plavix) 75 mg DAILY PO Last administered on 02/21/17 07 :46; Start 02/20/17 at 09:00 Docusate Sodium (Colace) 100 mg DAILY PO Last administered on 02/21/17 07:47; Start 02/20/17 at 09:00 Fentanyl (Duragesic 75mcg/ Hr Patch) 1 patch Q3DAYS TD Last administered on 02/20 20:18; Start 02/20/17 at 20:00 Acetaminophen/ Hydrocodone Bitart (Lortab 7.5/325) 1 tab PRN Q4HRS PRN PO MODERATE PAIN; Start 02/19/17 at 19:00; Stop 02/19/17 at 19:27; Status DC Losartan Potassium (Cozaar) 50 mg DAILY PO Last administered on 02/21/17 07:47 ; Start 02/20/17 at 09:00 Metformin HCl (Glucophage) 500 mg BIDAFTMEAL PO Last administered on 02/21/17 07:46; Start 02/19/17 at 21:00 Pantoprazole Sodium (Protonix) 40 mg DAILYAC PO Last administered on 02/21/17 07:46; Start 02/20/17 at 07:30 Tamsulosin HCl (Flomax) 0.4 mg BID PO Last administered on 02/21/17 07:46; Start 02/19/17 at 21:00 Tamsulosin HCl (Flomax) 0.4 mg HS PO ; Start 02/19/17 at 21:00; Stop 02/19/17 at 21:00; Status DC Citalopram Hydrobromide (CeleXA) 40 mg DAILY PO Last administered on 02/21/17 07:46; Start 02/20/17 at 09:00 Gabapentin (Neurontin) 300 mg BID PO Last administered on 02/21/17 07:47; Start 02/19/17 at 21:00 Insulin Aspart (NovoLOG) 15 units TIDAC SQ Last administered on 02/21/17 07:54 ; Start 02/20/17 at 07:30 Insulin Detemir (Levemir) 22 units QHS SQ Last administered on 02/20/17 21:36; Start 02/19/17 at 21:00 Non-Formulary Medication 3.375 gm Q6HRS IV ; Start 02/20/17 at 00:00; Stop at 00:00; Status DC Alteplase, Recombinant (Cathflo) 2 mg 1X ONCE INT CAT Last administered on 02/19 23:32; Start 02/19/17 at 23:30; Stop 02/19/17 at 23:31; Status DC Piperacillin Sod/ Tazobactam Sod (Zosyn Per Pharmacy) 1 each PRN DAILY PRN MC SEE COMMENTS; Start 02/20/17 at 15:30 Piperacillin Sod/ Tazobactam Sod 3.375 gm/Sodium Chloride 50 ml @ 100 mls/hr Q6HRS IV Last administered on 02/21/17 05:45; Start 02/20/17 at 15:30 Active Scripts Active Hydrocodone-Apap 7.5-325 (Hydrocodone Bit/Acetaminophen) 1 Each Tablet 1 Tab PO PRN Q4HRS PRN Reported Tamsulosin Hcl 0.4 Mg Cap.er.24h 1 Cap PO DAILY Zosyn 3.375 Gm Galaxy Bag (Txmrdqwbrubh-Zidj-Ygsvlxaa,Iso) 3.375 Gm/50 Ml Froz.piggy 3.375 Gm IV Q6HRS Novolog (Insulin Aspart) 100 Unit/1 Ml Cartridge 15 Unit SQ TIDAC Pantoprazole Sodium 40 Mg Tablet.dr 40 Mg PO DAILY Levemir (Insulin Detemir) 100 Unit/1 Ml Vial 22 Unit SQ HS FENTANYL 75mcg/hr (Fentanyl) 1 Each Patch.td72 1 Patch TP Q3DAYS Colace (Docusate Sodium) 100 Mg Capsule 1 Cap PO DAILY Aspirin 325 Mg Tablet 1 Tab PO DAILY Vitamin D3 (Cholecalciferol (Vitamin D3)) 1,000 Unit Tablet 1 Tab PO DAILY Losartan Potassium 50 Mg Tablet 50 Mg PO DAILY Gabapentin 300 Mg Capsule 300 Mg PO BID Celebrex (Celecoxib) 200 Mg Capsule 200 Mg PO BID 30 Days Citalopram Hbr (Citalopram Hydrobromide) 40 Mg Tablet 40 Mg PO DAILY Lipitor (Atorvastatin Calcium) 20 Mg Tablet 20 Mg PO QHS Flomax (Tamsulosin Hcl) 0.4 Mg Cap.er.24h 0.4 Mg PO HS Metformin Hcl 500 Mg Tablet 500 Mg PO BID Plavix (Clopidogrel Bisulfate) 75 Mg Tablet 75 Mg PO DAILY Allergies Allergies: Coded Allergies: morphine (Verified Allergy, Intermediate, 02/19/17) causes hallucinations ROS General: No: Chills, Night Sweats, Fatigue, Malaise, Appetite, Other PSYCHOLOGICAL ROS: No: Anxiety, Behavioral Disorder, Concentration difficultie , Decreased libido, Depression, Disorientation, Hallucinations, Hostility, Irritablity, Memory difficulties, Mood Swings, Obsessive thoughts, Physical abuse, Sexual abuse, Sleep disturbances, Suicidal ideation, Other Eyes: No Blurry vision, No Decreased vision, No Double vision, No Dry eyes, No Excessive tearing, No Eye Pain, No Itchy Eyes, No Loss of vision, No Photophobia , No Scotomata, No Uses contacts, No Uses glasses, No Other HEENT: No: Heacaches, Visual Changes, Hearing change, Nasal congestion, Nasal discharge, Oral lesions, Sinus pain, Sore Throat, Epistaxis, Sneezing, Snoring, Tinnitus, Vertigo, Vocal changes, Other ALLERGY AND IMMUNOLOGY: No: Hives, Insect Bite Sensitivity, Itchy/Watery Eyes, Nasal Congestion, Post Nasal Drip, Seasonal Allergies, Other Hematological and Lymphatic: No: Bleeding Problems, Blood Clots, Blood Transfusions, Brusing, Night Sweats, Pallor, Swollen Lymph Nodes, Other ENDOCRINE: No: Breast Changes, Galactorrhea, Hair Pattern Changes, Hot Flashes , Malaise/lethargy, Mood Swings, Palpitations, Polydipsia/polyuria, Skin Changes , Temperature Intolerance, Unexpected Weight Changes, Other Respiratory: No: Cough, Hemoptysis, Orthopnea, Pleuritic Pain, Shortness of breath, SOB with excertion, Sputum Changes, Stridor, Tachypnea, Wheezing, Other Cardiovascular: No Chest Pain, No Palpitations, No Orthopnea, No Paroxysmal Noc. Dyspnea, No Edema, No Lt Headedness, No Other Gastrointestinal: No Nausea, No Vomiting, No Abdominal Pain, No Diarrhea, No Constipation, No Melena, No Hematochezia, No Other Musculoskeletal: Yes Other (pain in left ankle post surgical in nature) Physical Exam General: Alert, Oriented X3 HEENT: Atraumatic, PERRLA Lungs: Clear to auscultation Heart: Regular rate, Normal S1, Normal S2 Abdomen: Normal bowel sounds, Soft, Other (Left ankle s/p surgery wrapped with bandages and hardware in place) Extremities: No clubbing Vitals VITALS Vital Signs Date Time Temp Pulse Resp B/P (MAP) Pulse Ox O2 Delivery O2 Flow Rate FiO2 02/21/17 07:47 89 121/71 02/21/17 07:10 Room Air 02/21/17 07:00 98.7 20 92 2.0 98.7 Labs Labs Laboratory Tests Test 02/19/17 12:00 02/19/17 16:58 02/19/17 17:46 02/19/17 20:58 White Blood Count 6.5 x10^3/uL (4.0-11.0) 8.8 x10^3/uL (4.0-11.0) Red Blood Count 2.20 x10^6/uL (4.30-5.70) 2.34 x10^6/uL (4.30-5.70) Hemoglobin 6.9 g/dL (13.0-17.5) 7.5 g/dL (13.0-17.5) Hematocrit 20.5 % (39.0-53.0) 21.3 % (39.0-53.0) Mean Corpuscular Volume 93 fL (79-100) 91 fL (79-100) Mean Corpuscular Hemoglobin 32 pg (25-35) 32 pg (25-35) Mean Corpuscular Hemoglobin Concent 34 g/dL (31-37) 35 g/dL (31-37) Red Cell Distribution Width 16.2 % (11.5-14.5) 16.2 % (11.5-14.5) Platelet Count 145 x10^3/uL (140-400) 160 x10^3/uL (140-400) Neutrophils (%) (Auto) 68 % (31-73) Lymphocytes (%) (Auto) 11 % (24-48) Monocytes (%) (Auto) 11 % (0-9) Eosinophils (%) (Auto) 9 % (0-3) Basophils (%) (Auto) 1 % (0-3) Neutrophils # (Auto) 4.4 x10^3uL (1.8-7.7) Lymphocytes # (Auto) 0.7 x10^3/uL (1.0-4.8) Monocytes # (Auto) 0.7 x10^3/uL (0.0-1.1) Eosinophils # (Auto) 0.6 x10^3/uL (0.0-0.7) Basophils # (Auto) 0.1 x10^3/uL (0.0-0.2) Sodium Level 142 mmol/L (136-145) Potassium Level 4.0 mmol/L (3.5-5.1) Chloride Level 105 mmol/L (98-107) Carbon Dioxide Level 25 mmol/L (21-32) Anion Gap 12 (6-14) Blood Urea Nitrogen 20 mg/dL (8-26) Creatinine 1.5 mg/dL (0.7-1.3) Estimated GFR (Cockcroft-Gault) 47.3 Glucose Level 137 mg/dL (70-99) Calcium Level 9.1 mg/dL (8.5-10.1) Glucose (Fingerstick) 174 mg/dL (70-99) 197 mg/dL (70-99) Test 02/20/17 08:01 02/20/17 09:35 02/20/17 11:31 02/20/17 16:15 Glucose (Fingerstick) 150 mg/dL (70-99) 161 mg/dL (70-99) 169 mg/dL (70-99) White Blood Count 6.8 x10^3/uL (4.0-11.0) Red Blood Count 2.50 x10^6/uL (4.30-5.70) Hemoglobin 7.8 g/dL (13.0-17.5) Hematocrit 23.0 % (39.0-53.0) Mean Corpuscular Volume 92 fL (79-100) Mean Corpuscular Hemoglobin 31 pg (25-35) Mean Corpuscular Hemoglobin Concent 34 g/dL (31-37) Red Cell Distribution Width 16.0 % (11.5-14.5) Platelet Count 136 x10^3/uL (140-400) Neutrophils (%) (Auto) 74 % (31-73) Lymphocytes (%) (Auto) 9 % (24-48) Monocytes (%) (Auto) 12 % (0-9) Eosinophils (%) (Auto) 4 % (0-3) Basophils (%) (Auto) 1 % (0-3) Neutrophils # (Auto) 5.1 x10^3uL (1.8-7.7) Lymphocytes # (Auto) 0.6 x10^3/uL (1.0-4.8) Monocytes # (Auto) 0.8 x10^3/uL (0.0-1.1) Eosinophils # (Auto) 0.3 x10^3/uL (0.0-0.7) Basophils # (Auto) 0.0 x10^3/uL (0.0-0.2) Sodium Level 142 mmol/L (136-145) Potassium Level 4.0 mmol/L (3.5-5.1) Chloride Level 106 mmol/L (98-107) Carbon Dioxide Level 27 mmol/L (21-32) Anion Gap 9 (6-14) Blood Urea Nitrogen 24 mg/dL (8-26) Creatinine 1.6 mg/dL (0.7-1.3) Estimated GFR (Cockcroft-Gault) 43.9 Glucose Level 190 mg/dL (70-99) Calcium Level 8.4 mg/dL (8.5-10.1) Test 02/20/17 20:00 02/20/17 21:02 02/21/17 03:30 02/21/17 07:11 Hemoglobin 6.9 g/dL (13.0-17.5) 7.0 g/dL (13.0-17.5) Hematocrit 20.2 % (39.0-53.0) 20.0 % (39.0-53.0) Mean Corpuscular Hemoglobin Concent 34 g/dL (31-37) 35 g/dL (31-37) Glucose (Fingerstick) 204 mg/dL (70-99) 108 mg/dL (70-99) White Blood Count 5.6 x10^3/uL (4.0-11.0) Red Blood Count 2.18 x10^6/uL (4.30-5.70) Mean Corpuscular Volume 92 fL (79-100) Mean Corpuscular Hemoglobin 32 pg (25-35) Red Cell Distribution Width 16.5 % (11.5-14.5) Platelet Count 128 x10^3/uL (140-400) Neutrophils (%) (Auto) 70 % (31-73) Lymphocytes (%) (Auto) 10 % (24-48) Monocytes (%) (Auto) 14 % (0-9) Eosinophils (%) (Auto) 6 % (0-3) Basophils (%) (Auto) 0 % (0-3) Neutrophils # (Auto) 3.9 x10^3uL (1.8-7.7) Lymphocytes # (Auto) 0.6 x10^3/uL (1.0-4.8) Monocytes # (Auto) 0.8 x10^3/uL (0.0-1.1) Eosinophils # (Auto) 0.3 x10^3/uL (0.0-0.7) Basophils # (Auto) 0.0 x10^3/uL (0.0-0.2) Sodium Level 141 mmol/L (136-145) Potassium Level 4.1 mmol/L (3.5-5.1) Chloride Level 106 mmol/L (98-107) Carbon Dioxide Level 25 mmol/L (21-32) Anion Gap 10 (6-14) Blood Urea Nitrogen 30 mg/dL (8-26) Creatinine 1.6 mg/dL (0.7-1.3) Estimated GFR (Cockcroft-Gault) 43.9 BUN/Creatinine Ratio 19 (6-20) Glucose Level 172 mg/dL (70-99) Calcium Level 8.3 mg/dL (8.5-10.1) Total Bilirubin 0.2 mg/dL (0.2-1.0) Aspartate Amino Transf (AST/SGOT) 15 U/L (15-37) Alanine Aminotransferase (ALT/SGPT) 12 U/L (16-63) Alkaline Phosphatase 67 U/L (46-116) Total Protein 5.9 g/dL (6.4-8.2) Albumin 2.0 g/dL (3.4-5.0) Albumin/Globulin Ratio 0.5 (1.0-1.7) Laboratory Tests Test 02/20/17 11:31 02/20/17 16:15 02/20/17 20:00 02/20/17 21:02 Glucose (Fingerstick) 161 mg/dL (70-99) 169 mg/dL (70-99) 204 mg/dL (70-99) Hemoglobin 6.9 g/dL (13.0-17.5) Hematocrit 20.2 % (39.0-53.0) Mean Corpuscular Hemoglobin Concent 34 g/dL (31-37) Test 02/21/17 03:30 02/21/17 07:11 White Blood Count 5.6 x10^3/uL (4.0-11.0) Red Blood Count 2.18 x10^6/uL (4.30-5.70) Hemoglobin 7.0 g/dL (13.0-17.5) Hematocrit 20.0 % (39.0-53.0) Mean Corpuscular Volume 92 fL (79-100) Mean Corpuscular Hemoglobin 32 pg (25-35) Mean Corpuscular Hemoglobin Concent 35 g/dL (31-37) Red Cell Distribution Width 16.5 % (11.5-14.5) Platelet Count 128 x10^3/uL (140-400) Neutrophils (%) (Auto) 70 % (31-73) Lymphocytes (%) (Auto) 10 % (24-48) Monocytes (%) (Auto) 14 % (0-9) Eosinophils (%) (Auto) 6 % (0-3) Basophils (%) (Auto) 0 % (0-3) Neutrophils # (Auto) 3.9 x10^3uL (1.8-7.7) Lymphocytes # (Auto) 0.6 x10^3/uL (1.0-4.8) Monocytes # (Auto) 0.8 x10^3/uL (0.0-1.1) Eosinophils # (Auto) 0.3 x10^3/uL (0.0-0.7) Basophils # (Auto) 0.0 x10^3/uL (0.0-0.2) Sodium Level 141 mmol/L (136-145) Potassium Level 4.1 mmol/L (3.5-5.1) Chloride Level 106 mmol/L (98-107) Carbon Dioxide Level 25 mmol/L (21-32) Anion Gap 10 (6-14) Blood Urea Nitrogen 30 mg/dL (8-26) Creatinine 1.6 mg/dL (0.7-1.3) Estimated GFR (Cockcroft-Gault) 43.9 BUN/Creatinine Ratio 19 (6-20) Glucose Level 172 mg/dL (70-99) Calcium Level 8.3 mg/dL (8.5-10.1) Total Bilirubin 0.2 mg/dL (0.2-1.0) Aspartate Amino Transf (AST/SGOT) 15 U/L (15-37) Alanine Aminotransferase (ALT/SGPT) 12 U/L (16-63) Alkaline Phosphatase 67 U/L (46-116) Total Protein 5.9 g/dL (6.4-8.2) Albumin 2.0 g/dL (3.4-5.0) Albumin/Globulin Ratio 0.5 (1.0-1.7) Glucose (Fingerstick) 108 mg/dL (70-99) Assessment/Plan Assessment/Plan 62 yo male with multiple comorbidities admitted to the hospital for revision of Left ankle external fixation and fusion. He was found to be anemic and we were consulted. Anemia. Most likely this is anemia of chronic disease. It is slightly worsened from his surgical procedure. On 01/01/17 he had a hgb of 9.6. I did not see any previous workup of his anemia. Would check iron studies, b12, folic acid, retic count, Given renal insufficiency would also check SPEP and immunofixation. I would transfuse if he becomes symptomatic. ABHI CORONADO MD Feb 21, 2017 11:07
--- NOTE | 2017-02-21 11:37 | PDOC2 ---
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 Oneal for abx management Patient known to our service from recent hospitalization. Refer to previous consult from Feb 03 for details. He had left ankle abscess s/p I and D on 02/02 with growth of proteus, PSA, Enterococcus and MSSA on culture. He was discharged on Zosyn through Feb 24. He has since been re-ad[facility] from [facility] for a left ankle fracture dislocation with re-displacement in external fixator. He was taken to OR yesterday, underwent ankle fracture fixation and fusion with hindfoot nail and supplementary application of external fixator, performed by Dr. Galvin. PMH, PSH, SH, FH reviewed All: Morphine MEDS: Reviewed ROS: Pain controlled. Denies F/C/S or body aches. Denies fall. Denies headaches, sore throat, cough, SOA or CP. Denies N/V/D. Denies rash PHYSICAL EXAM GENRAL: Overweight, male, lying down, NAD VSS: Afebrile. Stable. BMI 47.9 HEENT: PERRL. Oral cavity, pharynx pink LUNGS: Clear HEART: Normal S1 and S2 ABDOMEN: Obese, soft, NT, BS present EXT: Trace edema, BLE, LLE dressing dry w/ external fixator in place. 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 SKIN: Without rash TRAFFIC POLICE OFFICER: Alert, 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. Calm LUE-PICC. clean (POA) LABS: WBC 5.6, Hgb 7.0 (6.9), PLT 128, Cr 1.6, BUN 30, glucose 172 Portable chest, 02/20/2017: IMPRESSION: 1. The left PICC extends into the superior vena cava. 2. No acute cardiopulmonary abnormality is detected. IMPRESSION Recent history left ankle abscess s/p I and D, 02/02, with growth of Proteus ( R tetra), PSA ( R ticarcillin), E. faecalis-PCNS & MSSA on culture. s/p left ankle fracture fixation and fusion with hindfoot nail and supplementary application of external fixator, 02/19 following Bi malleolar ankle fracture s/p ext fixation, 02/02 Right calcaneal wound -h/o gangrenous ulcer of right heel. s/p excisional debridement skin and subcutaneous tissue, 01/05. No intra-op cultures were obtained -MRI from 01/02 showed chronic neuropathic arthropathy changes with hardware in place; no definite evidence of acute osteo noted but could not r/o with elevated ESR and WBC at the time. Diabetes with neuropathy CKD. Recently off HD Anemia s/p PRBCs Morbid obesity Plan of Care Continue Zosyn Monitor labs Supportive care D/w family Thank you RADHA SILVA MD 02/21/17 1256: Consult: S/p tibocalcaneal dislocation requiring additional fixation. D/w Dr. Morrow Seen/Performed PE/Reviewed labs/cults and previous records/Formulated Imp and Plan D/w ULISSES ROYAL APRN Feb 21, 2017 11:37 RADHA SILVA MD Feb 21, 2017 12:56
--- NOTE | 2017-02-21 12:44 | PDOC ---
PROGRESS NOTES Chief Complaint Chief Complaint left lower leg fracture, poorly healing left ankle fracture with external hardware s/p OR sx 02/20/17 morbid obesity, BMI 47 DM2, insulin req weakness and debility prior cellulitis and wound vac for fasciitis . BRYCE on CKD, recent hemodialysis a month ago, improved UO stable - off HD Anemia, normocytic of CKD . HTN, Depression, , dyslipidemia - - History of Present Illness History of Present Illness Known to me from last admit for external hardware and new HD but now able to get off HD prior to last dc Asleep did not awaken Abx per ID LAbs reviewed HGb 7 - stone circular sawyer ordered 1 unit pRBC WBC in the teens, no fevers CReat 1,6 - STABLE PLAN: CPM LAbs in AM MOnitor anemia and kidney fcn - hx of needing temp HD last admit PT.OT No nephrotoxins Dw RN Vitals Vitals Vital Signs Date Time Temp Pulse Resp B/P (MAP) Pulse Ox O2 Delivery O2 Flow Rate FiO2 02/21/17 07:47 89 121/71 02/21/17 07:10 Room Air 02/21/17 07:00 98.7 20 92 2.0 98.7 Physical Exam General: Alert, Oriented X3 Heart: Regular rate, Normal S1, Normal S2 Lungs: Clear Abdomen: Normal bowel sounds, Soft, Other (Left ankle s/p surgery wrapped with bandages and hardware in place) Extremities: No clubbing Skin: No breakdown, Other Labs LABS Laboratory Tests Test 02/20/17 16:15 02/20/17 20:00 02/20/17 21:02 02/21/17 03:30 Glucose (Fingerstick) 169 mg/dL (70-99) 204 mg/dL (70-99) Hemoglobin 6.9 g/dL (13.0-17.5) 7.0 g/dL (13.0-17.5) Hematocrit 20.2 % (39.0-53.0) 20.0 % (39.0-53.0) Mean Corpuscular Hemoglobin Concent 34 g/dL (31-37) 35 g/dL (31-37) White Blood Count 5.6 x10^3/uL (4.0-11.0) Red Blood Count 2.18 x10^6/uL (4.30-5.70) Mean Corpuscular Volume 92 fL (79-100) Mean Corpuscular Hemoglobin 32 pg (25-35) Red Cell Distribution Width 16.5 % (11.5-14.5) Platelet Count 128 x10^3/uL (140-400) Neutrophils (%) (Auto) 70 % (31-73) Lymphocytes (%) (Auto) 10 % (24-48) Monocytes (%) (Auto) 14 % (0-9) Eosinophils (%) (Auto) 6 % (0-3) Basophils (%) (Auto) 0 % (0-3) Neutrophils # (Auto) 3.9 x10^3uL (1.8-7.7) Lymphocytes # (Auto) 0.6 x10^3/uL (1.0-4.8) Monocytes # (Auto) 0.8 x10^3/uL (0.0-1.1) Eosinophils # (Auto) 0.3 x10^3/uL (0.0-0.7) Basophils # (Auto) 0.0 x10^3/uL (0.0-0.2) Sodium Level 141 mmol/L (136-145) Potassium Level 4.1 mmol/L (3.5-5.1) Chloride Level 106 mmol/L (98-107) Carbon Dioxide Level 25 mmol/L (21-32) Anion Gap 10 (6-14) Blood Urea Nitrogen 30 mg/dL (8-26) Creatinine 1.6 mg/dL (0.7-1.3) Estimated GFR (Cockcroft-Gault) 43.9 BUN/Creatinine Ratio 19 (6-20) Glucose Level 172 mg/dL (70-99) Calcium Level 8.3 mg/dL (8.5-10.1) Total Bilirubin 0.2 mg/dL (0.2-1.0) Aspartate Amino Transf (AST/SGOT) 15 U/L (15-37) Alanine Aminotransferase (ALT/SGPT) 12 U/L (16-63) Alkaline Phosphatase 67 U/L (46-116) Total Protein 5.9 g/dL (6.4-8.2) Albumin 2.0 g/dL (3.4-5.0) Albumin/Globulin Ratio 0.5 (1.0-1.7) Test 02/21/17 07:11 02/21/17 12:13 Glucose (Fingerstick) 108 mg/dL (70-99) 167 mg/dL (70-99) Review of Systems Review of Systems asleep Comment Review of Relevant I have reviewed the following items lauryn (where applicable) has been applied. Labs Laboratory Tests Test 02/19/17 16:58 02/19/17 17:46 02/19/17 20:58 02/20/17 08:01 White Blood Count 8.8 x10^3/uL (4.0-11.0) Red Blood Count 2.34 x10^6/uL (4.30-5.70) Hemoglobin 7.5 g/dL (13.0-17.5) Hematocrit 21.3 % (39.0-53.0) Mean Corpuscular Volume 91 fL (79-100) Mean Corpuscular Hemoglobin 32 pg (25-35) Mean Corpuscular Hemoglobin Concent 35 g/dL (31-37) Red Cell Distribution Width 16.2 % (11.5-14.5) Platelet Count 160 x10^3/uL (140-400) Glucose (Fingerstick) 174 mg/dL (70-99) 197 mg/dL (70-99) 150 mg/dL (70-99) Test 02/20/17 09:35 02/20/17 11:31 02/20/17 16:15 02/20/17 20:00 White Blood Count 6.8 x10^3/uL (4.0-11.0) Red Blood Count 2.50 x10^6/uL (4.30-5.70) Hemoglobin 7.8 g/dL (13.0-17.5) 6.9 g/dL (13.0-17.5) Hematocrit 23.0 % (39.0-53.0) 20.2 % (39.0-53.0) Mean Corpuscular Volume 92 fL (79-100) Mean Corpuscular Hemoglobin 31 pg (25-35) Mean Corpuscular Hemoglobin Concent 34 g/dL (31-37) 34 g/dL (31-37) Red Cell Distribution Width 16.0 % (11.5-14.5) Platelet Count 136 x10^3/uL (140-400) Neutrophils (%) (Auto) 74 % (31-73) Lymphocytes (%) (Auto) 9 % (24-48) Monocytes (%) (Auto) 12 % (0-9) Eosinophils (%) (Auto) 4 % (0-3) Basophils (%) (Auto) 1 % (0-3) Neutrophils # (Auto) 5.1 x10^3uL (1.8-7.7) Lymphocytes # (Auto) 0.6 x10^3/uL (1.0-4.8) Monocytes # (Auto) 0.8 x10^3/uL (0.0-1.1) Eosinophils # (Auto) 0.3 x10^3/uL (0.0-0.7) Basophils # (Auto) 0.0 x10^3/uL (0.0-0.2) Sodium Level 142 mmol/L (136-145) Potassium Level 4.0 mmol/L (3.5-5.1) Chloride Level 106 mmol/L (98-107) Carbon Dioxide Level 27 mmol/L (21-32) Anion Gap 9 (6-14) Blood Urea Nitrogen 24 mg/dL (8-26) Creatinine 1.6 mg/dL (0.7-1.3) Estimated GFR (Cockcroft-Gault) 43.9 Glucose Level 190 mg/dL (70-99) Calcium Level 8.4 mg/dL (8.5-10.1) Glucose (Fingerstick) 161 mg/dL (70-99) 169 mg/dL (70-99) Test 02/20/17 21:02 02/21/17 03:30 02/21/17 07:11 02/21/17 12:13 Glucose (Fingerstick) 204 mg/dL (70-99) 108 mg/dL (70-99) 167 mg/dL (70-99) White Blood Count 5.6 x10^3/uL (4.0-11.0) Red Blood Count 2.18 x10^6/uL (4.30-5.70) Hemoglobin 7.0 g/dL (13.0-17.5) Hematocrit 20.0 % (39.0-53.0) Mean Corpuscular Volume 92 fL (79-100) Mean Corpuscular Hemoglobin 32 pg (25-35) Mean Corpuscular Hemoglobin Concent 35 g/dL (31-37) Red Cell Distribution Width 16.5 % (11.5-14.5) Platelet Count 128 x10^3/uL (140-400) Neutrophils (%) (Auto) 70 % (31-73) Lymphocytes (%) (Auto) 10 % (24-48) Monocytes (%) (Auto) 14 % (0-9) Eosinophils (%) (Auto) 6 % (0-3) Basophils (%) (Auto) 0 % (0-3) Neutrophils # (Auto) 3.9 x10^3uL (1.8-7.7) Lymphocytes # (Auto) 0.6 x10^3/uL (1.0-4.8) Monocytes # (Auto) 0.8 x10^3/uL (0.0-1.1) Eosinophils # (Auto) 0.3 x10^3/uL (0.0-0.7) Basophils # (Auto) 0.0 x10^3/uL (0.0-0.2) Sodium Level 141 mmol/L (136-145) Potassium Level 4.1 mmol/L (3.5-5.1) Chloride Level 106 mmol/L (98-107) Carbon Dioxide Level 25 mmol/L (21-32) Anion Gap 10 (6-14) Blood Urea Nitrogen 30 mg/dL (8-26) Creatinine 1.6 mg/dL (0.7-1.3) Estimated GFR (Cockcroft-Gault) 43.9 BUN/Creatinine Ratio 19 (6-20) Glucose Level 172 mg/dL (70-99) Calcium Level 8.3 mg/dL (8.5-10.1) Total Bilirubin 0.2 mg/dL (0.2-1.0) Aspartate Amino Transf (AST/SGOT) 15 U/L (15-37) Alanine Aminotransferase (ALT/SGPT) 12 U/L (16-63) Alkaline Phosphatase 67 U/L (46-116) Total Protein 5.9 g/dL (6.4-8.2) Albumin 2.0 g/dL (3.4-5.0) Albumin/Globulin Ratio 0.5 (1.0-1.7) Laboratory Tests Test 02/20/17 16:15 02/20/17 20:00 02/20/17 21:02 02/21/17 03:30 Glucose (Fingerstick) 169 mg/dL (70-99) 204 mg/dL (70-99) Hemoglobin 6.9 g/dL (13.0-17.5) 7.0 g/dL (13.0-17.5) Hematocrit 20.2 % (39.0-53.0) 20.0 % (39.0-53.0) Mean Corpuscular Hemoglobin Concent 34 g/dL (31-37) 35 g/dL (31-37) White Blood Count 5.6 x10^3/uL (4.0-11.0) Red Blood Count 2.18 x10^6/uL (4.30-5.70) Mean Corpuscular Volume 92 fL (79-100) Mean Corpuscular Hemoglobin 32 pg (25-35) Red Cell Distribution Width 16.5 % (11.5-14.5) Platelet Count 128 x10^3/uL (140-400) Neutrophils (%) (Auto) 70 % (31-73) Lymphocytes (%) (Auto) 10 % (24-48) Monocytes (%) (Auto) 14 % (0-9) Eosinophils (%) (Auto) 6 % (0-3) Basophils (%) (Auto) 0 % (0-3) Neutrophils # (Auto) 3.9 x10^3uL (1.8-7.7) Lymphocytes # (Auto) 0.6 x10^3/uL (1.0-4.8) Monocytes # (Auto) 0.8 x10^3/uL (0.0-1.1) Eosinophils # (Auto) 0.3 x10^3/uL (0.0-0.7) Basophils # (Auto) 0.0 x10^3/uL (0.0-0.2) Sodium Level 141 mmol/L (136-145) Potassium Level 4.1 mmol/L (3.5-5.1) Chloride Level 106 mmol/L (98-107) Carbon Dioxide Level 25 mmol/L (21-32) Anion Gap 10 (6-14) Blood Urea Nitrogen 30 mg/dL (8-26) Creatinine 1.6 mg/dL (0.7-1.3) Estimated GFR (Cockcroft-Gault) 43.9 BUN/Creatinine Ratio 19 (6-20) Glucose Level 172 mg/dL (70-99) Calcium Level 8.3 mg/dL (8.5-10.1) Total Bilirubin 0.2 mg/dL (0.2-1.0) Aspartate Amino Transf (AST/SGOT) 15 U/L (15-37) Alanine Aminotransferase (ALT/SGPT) 12 U/L (16-63) Alkaline Phosphatase 67 U/L (46-116) Total Protein 5.9 g/dL (6.4-8.2) Albumin 2.0 g/dL (3.4-5.0) Albumin/Globulin Ratio 0.5 (1.0-1.7) Test 02/21/17 07:11 02/21/17 12:13 Glucose (Fingerstick) 108 mg/dL (70-99) 167 mg/dL (70-99) Medications Current Medications Midazolam HCl (Versed) 2 mg PRN 1X PRN IV PRIOR TO PROCEDURE; Start 02/19/17 at 12:15; Stop 02/20/17 at 12:14; Status DC Fentanyl Citrate (Fentanyl 2ml Vial) 25 mcg PRN Q5MIN PRN IV X 2 DOSES FOR PAIN ; Start 02/19/17 at 12:15; Stop 02/20/17 at 12:14; Status DC Fentanyl Citrate (Fentanyl 2ml Vial) 50 mcg PRN Q5MIN PRN IV X 2 DOSES FOR PAIN ; Start 02/19/17 at 12:15; Stop 02/20/17 at 12:14; Status DC Ringer's Solution 1,000 ml @ 125 mls/hr Q8H IV Last administered on 02/19/17t 12:09; Start 02/19/17 at 12:07; Stop 02/20/17 at 00:06; Status DC Lidocaine HCl 2 ml 1X PRN PRN ID IV START; Start 02/19/17 at 12:15; Stop at 12:14; Status DC Fentanyl Citrate (Fentanyl 5ml Vial) 250 mcg STK-MED ONCE .ROUTE ; Start at 13:02; Stop 02/19/17 at 13:03; Status DC Rocuronium [place] (Zemuron) 100 mg STK-MED ONCE .ROUTE ; Start 02/19/17 at 13:02 ; Stop 02/19/17 at 13:03; Status DC Sevoflurane (Ultane) 90 ml STK-MED ONCE IH ; Start 02/19/17 at 13:04; Stop at 13:05; Status DC Propofol 20 ml @ As Directed STK-MED ONCE IV ; Start 02/19/17 at 13:04; Stop 02/19 at 13:05; Status DC Dexamethasone Sodium Phosphate (Decadron) 20 mg STK-MED ONCE .ROUTE ; Start 02/19 at 13:04; Stop 02/19/17 at 13:05; Status DC Ondansetron HCl (Zofran) 4 mg STK-MED ONCE .ROUTE ; Start 02/19/17 at 13:04; Stop 02/19/17 at 13:05; Status DC Lidocaine HCl (Lidocaine Pf 2% Vial) 5 ml STK-MED ONCE .ROUTE ; Start 02/19/17 at 13:05; Stop 02/19/17 at 13:06; Status DC Cefazolin Sodium 50 ml @ As Directed STK-MED ONCE IV ; Start 02/19/17 at 13:50; Stop 02/19/17 at 13:51; Status DC Neostigmine Methylsulfate (Bloxiverz) 10 mg STK-MED ONCE .ROUTE ; Start 02/19/17 at 14:50; Stop 02/19/17 at 14:51; Status DC Glycopyrrolate (Robinul) 1 mg STK-MED ONCE .ROUTE ; Start 02/19/17 at 14:50; Stop 02/19/17 at 14:51; Status DC Neostigmine Methylsulfate (Bloxiverz) 10 mg STK-MED ONCE .ROUTE ; Start 02/19/17 at 14:51; Stop 02/19/17 at 14:52; Status DC Propofol 20 ml @ As Directed STK-MED ONCE IV ; Start 02/19/17 at 14:57; Stop 02/19 at 14:58; Status DC Phenylephrine HCl 1 mg STK-MED ONCE IV ; Start 02/19/17 at 15:46; Stop 02/19/17 at 15:47; Status DC Ondansetron HCl (Zofran) 4 mg PRN Q6HRS PRN IV NAUSEA/VOMITING; Start 02/19/17 at 18:00; Stop 02/19/17 at 20:00; Status DC Fentanyl Citrate (Fentanyl 2ml Vial) 25 mcg PRN Q5MIN PRN IV MILD PAIN; Start 02/19/17 at 18:00; Stop 02/19/17 at 18:06; Status DC Fentanyl Citrate (Fentanyl 2ml Vial) 50 mcg PRN Q5MIN PRN IV MODERATE PAIN; Start 02/19/17 at 18:00; Stop 02/19/17 at 18:05; Status DC Ringer's Solution 1,000 ml @ 30 mls/hr Q24H IV ; Start 02/19/17 at 17:58; Stop 02/20/17 at 05:57; Status DC Lidocaine HCl 2 ml PRN 1X PRN ID PRIOR TO IV START; Start 02/19/17 at 18:00; Stop 02/19/17 at 18:05; Status DC Prochlorperazine Edisylate (Compazine) 5 mg PACU PRN PRN IV NAUSEA, MRX1; Start 02/19/17 at 18:00; Stop 02/19/17 at 20:00; Status DC Oxycodone HCl (Roxicodone) 5 mg PRN Q3HRS PRN PO PAIN Last administered on t 12:06; Start 02/19/17 at 19:00 Fentanyl Citrate (Fentanyl 2ml Vial) 25 mcg PRN Q1HR PRN IV PAIN; Start at 19:00 Senna/Docusate Sodium (Senna Plus) 1 tab DAILY PO Last administered on t 07:46; Start 02/20/17 at 09:00 Polyethylene Glycol (miraLAX PACKET) 17 gm PRN DAILY PRN PO CONSTIPATION; Start 02/19/17 at 19:00 Ondansetron HCl (Zofran) 4 mg PRN Q4HRS PRN IV NAUSEA/VOMITING; Start 02/19/17 at 19:00 Magnesium Hydroxide (Milk Of Magnesia) 2,400 mg 1X PRN PRN PO CONSTIPATION; Start 02/20/17 at 06:00; Stop 02/21/17 at 05:59; Status DC Bisacodyl (Dulcolax Supp) 10 mg 1X PRN PRN [place] CONSTIPATION; Start 02/20/17 at 16 :00; Stop 02/21/17 at 15:59 Acetaminophen/ Hydrocodone Bitart (Lortab 7.5/325) 1 tab PRN Q4HRS PRN PO PAIN Last administered on 02/20/17 09:55; Start 02/19/17 at 19:00 Acetaminophen/ Hydrocodone Bitart (Lortab 7.5/325) 2 tab PRN Q4HRS PRN PO PAIN Last administered on 02/20/17 20:18; Start 02/19/17 at 19:00 Dextrose (Dextrose 50%-Water Syringe) 12.5 gm PRN Q15MIN PRN IV SEE COMMENTS; Start 02/19/17 at 19:00 Cefazolin Sodium 3 gm/Sodium Chloride 100 ml @ 200 mls/hr Q6H IV Last administered on 02/20/17 06:30; Start 02/19/17 at 19:00; Stop 02/20/17 at 07:29; Status DC Aspirin (Omkar Aspirin) 325 mg DAILY PO Last administered on 02/21/17 07:46; Start 02/20/17 at 09:00 Atorvastatin Calcium (Lipitor) 20 mg QHS PO Last administered on 02/20/17 20:17 ; Start 02/19/17 at 21:00 Celecoxib (CeleBREX) 200 mg BID PO Last administered on 02/21/17 07:46; Start 02/19/17 at 21:00 Vitamin D (Vitamin D3) 1,000 unit DAILY PO Last administered on 02/21/17 07:47 ; Start 02/20/17 at 09:00 Clopidogrel Bisulfate (Plavix) 75 mg DAILY PO Last administered on 02/21/17 07 :46; Start 02/20/17 at 09:00 Docusate Sodium (Colace) 100 mg DAILY PO Last administered on 02/21/17 07:47; Start 02/20/17 at 09:00 Fentanyl (Duragesic 75mcg/ Hr Patch) 1 patch Q3DAYS TD Last administered on 02/20 20:18; Start 02/20/17 at 20:00 Acetaminophen/ Hydrocodone Bitart (Lortab 7.5/325) 1 tab PRN Q4HRS PRN PO MODERATE PAIN; Start 02/19/17 at 19:00; Stop 02/19/17 at 19:27; Status DC Losartan Potassium (Cozaar) 50 mg DAILY PO Last administered on 02/21/17 07:47 ; Start 02/20/17 at 09:00 Metformin HCl (Glucophage) 500 mg BIDAFTMEAL PO Last administered on 02/21/17 07:46; Start 02/19/17 at 21:00 Pantoprazole Sodium (Protonix) 40 mg DAILYAC PO Last administered on 02/21/17 07:46; Start 02/20/17 at 07:30 Tamsulosin HCl (Flomax) 0.4 mg BID PO Last administered on 02/21/17 07:46; Start 02/19/17 at 21:00 Tamsulosin HCl (Flomax) 0.4 mg HS PO ; Start 02/19/17 at 21:00; Stop 02/19/17 at 21:00; Status DC Citalopram Hydrobromide (CeleXA) 40 mg DAILY PO Last administered on 02/21/17 07:46; Start 02/20/17 at 09:00 Gabapentin (Neurontin) 300 mg BID PO Last administered on 02/21/17 07:47; Start 02/19/17 at 21:00 Insulin Aspart (NovoLOG) 15 units TIDAC SQ Last administered on 02/21/17 07:54 ; Start 02/20/17 at 07:30 Insulin Detemir (Levemir) 22 units QHS SQ Last administered on 02/20/17 21:36; Start 02/19/17 at 21:00 Non-Formulary Medication 3.375 gm Q6HRS IV ; Start 02/20/17 at 00:00; Stop at 00:00; Status DC Alteplase, Recombinant (Cathflo) 2 mg 1X ONCE INT CAT Last administered on 02/19 23:32; Start 02/19/17 at 23:30; Stop 02/19/17 at 23:31; Status DC Piperacillin Sod/ Tazobactam Sod (Zosyn Per Pharmacy) 1 each PRN DAILY PRN MC SEE COMMENTS; Start 02/20/17 at 15:30 Piperacillin Sod/ Tazobactam Sod 3.375 gm/Sodium Chloride 50 ml @ 100 mls/hr Q6HRS IV Last administered on 02/21/17 05:45; Start 02/20/17 at 15:30 Active Scripts Active Hydrocodone-Apap 7.5-325 (Hydrocodone Bit/Acetaminophen) 1 Each Tablet 1 Tab PO PRN Q4HRS PRN Reported Tamsulosin Hcl 0.4 Mg Cap.er.24h 1 Cap PO DAILY Zosyn 3.375 Gm Galaxy Bag (Arlbrqajjtqj-Qdfm-Gddysxko,Iso) 3.375 Gm/50 Ml Froz.piggy 3.375 Gm IV Q6HRS Novolog (Insulin Aspart) 100 Unit/1 Ml Cartridge 15 Unit SQ TIDAC Pantoprazole Sodium 40 Mg Tablet.dr 40 Mg PO DAILY Levemir (Insulin Detemir) 100 Unit/1 Ml Vial 22 Unit SQ HS FENTANYL 75mcg/hr (Fentanyl) 1 Each Patch.td72 1 Patch TP Q3DAYS Colace (Docusate Sodium) 100 Mg Capsule 1 Cap PO DAILY Aspirin 325 Mg Tablet 1 Tab PO DAILY Vitamin D3 (Cholecalciferol (Vitamin D3)) 1,000 Unit Tablet 1 Tab PO DAILY Losartan Potassium 50 Mg Tablet 50 Mg PO DAILY Gabapentin 300 Mg Capsule 300 Mg PO BID Celebrex (Celecoxib) 200 Mg Capsule 200 Mg PO BID 30 Days Citalopram Hbr (Citalopram Hydrobromide) 40 Mg Tablet 40 Mg PO DAILY Lipitor (Atorvastatin Calcium) 20 Mg Tablet 20 Mg PO QHS Flomax (Tamsulosin Hcl) 0.4 Mg Cap.er.24h 0.4 Mg PO HS Metformin Hcl 500 Mg Tablet 500 Mg PO BID Plavix (Clopidogrel Bisulfate) 75 Mg Tablet 75 Mg PO DAILY Vitals/I & O Vital Sign - Last 24 Hours 02/20/17 02/20/17 02/20/17 02/20/17 15:00 16:50 19:00 20:00 Temp 97.9 98.1 97.9 98.1 Pulse 92 91 Resp 20 18 B/P (MAP) 111/66 (81) 107/60 (76) Pulse Ox 94 94 O2 Delivery Room Air Room Air Room Air Room Air 02/20/17 02/20/17 02/20/17 02/20/17 20:18 20:18 21:18 22:01 Temp 98.1 98.1 Pulse 91 Resp 20 20 20 18 B/P (MAP) 107/60 Pulse Ox 94 94 94 O2 Delivery Room Air Room Air Room Air 02/20/17 02/20/17 02/20/1717 22:30 22:31 23:45 00:18 Temp 98.1 98.1 98.6 98.1 98.1 98.6 Pulse 88 88 88 Resp 18 18 20 B/P (MAP) 110/65 (80) 110/65 123/70 Pulse Ox 94 94 O2 Delivery Room Air Room Air 02/21/17 02/21/17 02/21/17 02/21/17 03:00 07:00 07:10 07:47 Temp 97.7 98.7 97.7 98.7 Pulse 86 89 89 Resp 18 20 B/P (MAP) 105/65 (78) 121/71 (88) 121/71 Pulse Ox 95 92 O2 Delivery Room Air Nasal Cannula Room Air O2 Flow Rate 2.0 Intake and Output 02/21/17 02/21/17 02/22/17 15:00 23:00 07:00 Output Total 350 ml Balance -350 ml MARINA GREGG MD Feb 21, 2017 12:44
[2017-02-21 13:13] LABS: % SAT IRON 15 % (15-34); IRON,SERUM 22 ug/dL (65-175)
[2017-02-21] MEDS: HYDROcodone/APAP 7.5/325MG 1 TAB TABLET PO PRN ×2 (16:35→20:13)
[2017-02-21] MEDS: ATORVASTATIN CALCIUM 20 MG TABLET PO SCH (20:13)
[2017-02-21] MEDS: INSULIN DETEMIR 300 UNITS/3 ML INSULN.PEN. SQ SCH (21:04)
[2017-02-21] MEDS: oxyCODONE IR 5 MG TABLET PO PRN (22:27)
--- NOTE | 2017-02-21 23:24 | ACF ---
Admission Forms Criteria MUSCULOSKELETAL DISEASE GRG Clinical Indications for Admission to Inpatient Care (Place 'X' for any and all applicable criteria): Hospital admission is needed for appropriate care of the patient because of 1 or more of the following: [X]I. Fracture, dislocation, or other musculoskeletal injury requiring inpatient care(medical) as indicated by 1 or more of the following(4)(5)(6)(7) [ ]a) Vertebral fracture requiring observation for instability or neurologic compromise (8) [ ]b) Compartment syndrome (proven or cannot be ruled out during observation level of care) (9) [ ]c) Limb-threatening injury [X]d) Major injury requiring inpatient stabilization such as traction initiation or external fixation before internal fixation or closure of complex or open fracture [ ]e) Major injury requiring inpatient treatment after emergency or observation level care (as appropriate) [ ]f) Severe pain requiring acute inpatient management [ ]g) Injury with suspicion of abuse or neglect (eg., child, dependent elderly) [ ]II. Newly diagnosed or suspected bone, joint, or orthopedic device infection (e.g., osteomyelitis, septic arthritis) needing 1 or more of the following(1)(2)(3) [ ]a) IV antibiotics that cannot be initiated in other than inpatient setting (e.g., patient too unstable or home infusion not available) [ ]b) Device removal or replacement [ ]c) Bone or soft tissue debridement [ ]d) Joint drainage (drain placement or repetitive aspirations) [ ]III. Severe rheumatologic disease (e.g., systemic lupus erythematosus, rheumatoid arthritis) with complications or comorbidities (Also use Optimal Recovery Care Criteria or General Recovery Criteria as appropriate on the basis of predominant condition), including 1 or more of the following( 10)(11)(12)(13) [ ]a) Severe infection (e.g., BELTING CUTTER infection, sepsis) (14) [ ]b) Respiratory complications, including 1 or more of the following : [ ]i) Pleural effusion with respiratory compromise [ ]ii) Pulmonary hypertension with congestive failure [ ]iii) Respiratory failure [ ]iv) Pulmonary hemorrhage (15) [ ]c) Hematologic disease, including 1 or more of the following: [ ]i) Coagulopathy with bleeding [ ]ii) Thrombosis with hypercoagulable state [ ]iii) Thrombotic thrombocytopenic purpura [ ]d) Cerebritis with seizures, psychosis, or other severe abnormalities [ ]e) Vertebral destruction with monitoring needed for cervical myelopathy& possible respiratory compromise [ ]f) Exacerbation that requires inpatient treatment (e.g., intravenous immunosuppression) (16) [ ]g) Acute renal failure [ ]h) Cerebritis with seizures, psychosis, Altered mental status, or other neurologic abnormalities [ ]i) Pericardial effusion with tamponade [ ]j) Vertebral destruction, with monitoring needed for cervical myelopathy and possible respiratory compromise [ ]IV. Severe vasculitis with complications or comorbidities (Also use Optimal Recovery Care Criteria General Recovery Criteria as appropriate on the basis of predominant condition), including 1 or more of the following(11)(12)(17)(18)(19)(20) [ ]a) Exacerbation that requires inpatient treatment (e.g., intravenous immunosuppression) (19)(21) [ ]b) Pulmonary hemorrhage (15) [ ]c) BELTING CUTTER vasculitis with seizures, psychosis, Altered mental status that is severe or persistent, or other severe abnormalities (22) [ ]d) Cerebral infarction [ ]e) Gastrointestinal ischemia [ ]f) Gangrene or threatened amputation [ ]g) Renal failure (16) [ ]h) Other significant complications of vasculitis ( eg., tissue or organ ischemia, organ dysfunction ) [ ]V. Severe myopathy as indicated by 1 or more of the following (28)(29) [ ]a) New onset of airway compromise or inability to swallow [ ]b) Respiratory deterioration with observation needed for impending respiratory failure [ ]c) Exacerbation that requires inpatient treatment (e.g., intravenous immunosuppression) [ ]. Severe crystal gout (arthropathy) indicated by 1 or more of the following (23)(24) [ ]a) Severe pain requiring acute inpatient management [ ]b) Exacerbation that requires inpatient treatment (e.g., intravenous treatment) [ ]VII.Rhabdomyolysis and 1 or more of the following (25)(26)(27) [ ]a) Acute renal failure [ ]b) Need for intravenous hydration after emergency or observation level care (as appropriate) [ ]c) Inability to maintain oral hydration [ ]d) Change in mental status [ ]e) Electrolyte abnormality that remains after emergency or observation level care (as appropriate) [ ]VIII Post amputation complication, as indicated by ANY ONE of the following [ ]a) Infection [ ]b) Dehiscence [ ]c) Myodesis failure [ ]IX. Severe pain requiring acute inpatient management due to musculoskeletal condition [ ]X. Musculoskeletal Disease and ALL of the following: [ ]a) Symptom or finding for which emergency and observation care have failed or are not considered appropriate (Use General Criteria: Observation Care as appropriate) [ ]b) Presence of ANY ONE of the following [ ]i) A General Admission Criteria [ ]ii) A Pediatric General Admission Criteria The original [facility] content created by [facility] has been revised. The portions of the content which have been revised are identified through the use of italic text or in bold, and [facility] has neither reviewed nor approved the modified material. All other unmodified content is copyright [facility]. Please see references footnoted in the original [facility] edition 2016 Admission Criteria Met?: Yes GABI CHAND Feb 21, 2017 23:24
[2017-02-22] MEDS: ALBUTEROL SULFATE 2.5 MG/3 ML NEBU. NEB PRN ×2 (01:00→22:49)
[2017-02-22 03:00] VITALS: BP 143/93
[2017-02-22] MEDS: PIPERACILLIN/TAZOBACTAM 3.375 GM in IV NORMAL SALINE 50ML 50 ML IV SCH ×4 (05:32→23:17)
[2017-02-22 07:00] VITALS: BP 153/88
[2017-02-22] MEDS ORDERED: IPRATRPIUM/ALBUTEROL 0.5/2.5MG 3 ML NEBU. NEB SCH (08:00)
--- NOTE | 2017-02-22 08:50 | PDOC ---
Infectious Disease Note Subjective Subjective Doing ok. Pain 2/10 Urinating well Doing well S/p PRBCs ROS ROS GEN: Denies fevers, chills, sweats HEENT: Denies blurred vision, sore throat CV: Denies chest pain RESP: Denies shortness of air, cough GI: Denies n/v/d NEURO: Denies confusion, dizziness MSK: Denies weakness Vital Sign Vital Signs Vital Signs Date Time Temp Pulse Resp B/P (MAP) Pulse Ox O2 Delivery O2 Flow Rate FiO2 02/22/17 07:00 97.9 85 20 153/88 (109) 94 Room Air 97.9 02/21/17 23:27 2.0 Physical Exam PHYSICAL EXAM GENERAL: NAD, Alert. On side of bed eating HEENT: PERRL, OC/OP- clear NECK: Supple, no JVD, no LN LUNGS: Clear HEART: S1S2, no gallop, no murmur ABD: Soft, NT, no organomegaly, no rebound, obese EXT: RLE with boot and dressed. 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, no focal neurologic deficit SKIN: No rash IV: PICC LUE clean Labs Lab Laboratory Tests Test 02/21/17 12:13 02/21/17 12:20 02/21/17 17:18 02/21/17 20:32 Glucose (Fingerstick) 167 mg/dL (70-99) 180 mg/dL (70-99) 176 mg/dL (70-99) Reticulocyte Count (auto) 2.4 % (0.5-2.5) Iron Level 22 ug/dL (65-175) Total Iron Binding Capacity 146 ug/dL (250-450) Iron Saturation 15 % (15-34) Ferritin 802 ng/mL (26-388) Test 02/22/17 07:28 Glucose (Fingerstick) 151 mg/dL (70-99) Objective Assessment Anemia - S/p PRBCs Recent history left ankle abscess s/p I and D, 02/02, with growth of Proteus ( R tetra), PSA ( R ticarcillin), E. faecalis-PCNS & MSSA on culture. s/p left ankle fracture fixation and fusion with hindfoot nail and supplementary application of external fixator, 02/19 following Bi malleolar ankle fracture s/p ext fixation, 02/02 Right calcaneal wound -h/o gangrenous ulcer of right heel. s/p excisional debridement skin and subcutaneous tissue, 01/05. No intra-op cultures were obtained -MRI from 01/02 showed chronic neuropathic arthropathy changes with hardware in place; no definite evidence of acute osteo noted but could not r/o with elevated ESR and WBC at the time. Diabetes with neuropathy CKD. Recently off HD Anemia s/p PRBCs Morbid obesity Plan Plan of Care D/w Dr. Galvin. Wound is clean and no gross signs of intraop infection but uncertain etiology of loosening of hardware could be trauma Will cont Zosyn through 03/04 Will need CBC/Cr and Sed rate Q Wednesday F/u ID office 03/04 RADHA SILVA MD Feb 22, 2017 08:50
[2017-02-22] MEDS: CELECOXIB 200 MG CAPSULE. PO SCH ×2 (10:46→20:35)
[2017-02-22] MEDS: PANTOPRAZOLE 40 MG TABLET.DR. PO SCH (10:46)
[2017-02-22] MEDS: GABAPENTIN 300 MG CAPSULE. PO SCH ×2 (10:46→20:36)
[2017-02-22] MEDS: SENNOSIDES/DOCUSATE 8.6/50MG TABLET. PO SCH (10:47)
[2017-02-22] MEDS: LOSARTAN POTASSIUM 50 MG TABLET. PO SCH (10:47)
[2017-02-22] MEDS: metFORMIN 500 MG TABLET PO SCH ×2 (10:47→18:47)
[2017-02-22] MEDS: CLOPIDOGREL BISULFATE 75 MG TABLET PO SCH (10:47)
[2017-02-22] MEDS: ASPIRIN 325 MG TABLET PO SCH (10:47)
[2017-02-22] MEDS: DOCUSATE SODIUM 100 MG CAPSULE. PO SCH (10:48)
[2017-02-22] MEDS: TAMSULOSIN 0.4 MG CAP.ER.24H. PO SCH ×2 (10:48→20:36)
[2017-02-22] MEDS: CHOLECALCIFEROL (VITAMIN D3) 1,000 UNIT TABLET PO SCH (10:48)
[2017-02-22] MEDS: CITALOPRAM 20 MG TABLET. PO SCH (10:48)
[2017-02-22 11:00] VITALS: BP 134/80
[2017-02-22] MEDS: INSULIN ASPART 300 UNITS/3 ML INSULN.PEN SQ SCH ×3 (11:00→18:52)
[2017-02-22 11:20] LABS: BASO % 1 % (0-3); EOS % 8 % (0-3); HEMATOCRIT 22.2 % (39.0-53.0); HEMOGLOBIN 7.8 g/dL (13.0-17.5); LYMPH # 0.5 x10^3/uL (1.0-4.8); LYMPH % 9 % (24-48); MEAN CORPUSCULAR HEMOGLOBIN 32 pg (25-35); MEAN CORPUSCULAR HGB CONC 35 g/dL (31-37); MEAN CORPUSCULAR VOLUME 90 fL (79-100); MONO % 11 % (0-9); NEUT % 71 % (31-73); PLATELET COUNT 114 x10^3/uL (140-400); RED BLOOD COUNT 2.46 x10^6/uL (4.30-5.70); RED CELL DISTRIBUTION WIDTH 16.2 % (11.5-14.5); WHITE BLOOD COUNT 5.1 x10^3/uL (4.0-11.0)
--- NOTE | 2017-02-22 11:58 | PDOC ---
PROGRESS NOTES Chief Complaint Chief Complaint Left lower leg fracture, poorly healing left ankle fracture with external hardware s/p OR sx 02/20/17 Morbid obesity, BMI 47 DM2, insulin req Prior cellulitis and wound vac for fasciitis BRYCE on CKD, recent hemodialysis a month ago, improved UO stable - off HD Anemia, normocytic of CKD HTN, Depression, dyslipidemia History of Present Illness History of Present Illness Pt laying in bed and was talkative. Discussed current status Vitals Vitals Vital Signs Date Time Temp Pulse Resp B/P (MAP) Pulse Ox O2 Delivery O2 Flow Rate FiO2 02/22/17 11:00 97.9 88 20 134/80 (98) 96 Room Air 97.9 02/21/17 23:27 2.0 Physical Exam General: Alert, Oriented X3 Heart: Regular rate, Normal S1, Normal S2 Lungs: Clear, Other (No acute respiratory distress noted) Abdomen: Normal bowel sounds, Soft, Other Extremities: No clubbing, Other (Left ankle s/p surgery wrapped with bandages and hardware in place) Skin: No rashes, No breakdown, Other Labs LABS Laboratory Tests Test 02/21/17 12:13 02/21/17 12:20 02/21/17 17:18 02/21/17 20:32 Glucose (Fingerstick) 167 mg/dL (70-99) 180 mg/dL (70-99) 176 mg/dL (70-99) Reticulocyte Count (auto) 2.4 % (0.5-2.5) Iron Level 22 ug/dL (65-175) Total Iron Binding Capacity 146 ug/dL (250-450) Iron Saturation 15 % (15-34) Ferritin 802 ng/mL (26-388) Test 02/22/17 07:28 02/22/17 10:56 02/22/17 11:00 Glucose (Fingerstick) 151 mg/dL (70-99) 210 mg/dL (70-99) White Blood Count 5.1 x10^3/uL (4.0-11.0) Red Blood Count 2.46 x10^6/uL (4.30-5.70) Hemoglobin 7.8 g/dL (13.0-17.5) Hematocrit 22.2 % (39.0-53.0) Mean Corpuscular Volume 90 fL (79-100) Mean Corpuscular Hemoglobin 32 pg (25-35) Mean Corpuscular Hemoglobin Concent 35 g/dL (31-37) Red Cell Distribution Width 16.2 % (11.5-14.5) Platelet Count 114 x10^3/uL (140-400) Neutrophils (%) (Auto) 71 % (31-73) Lymphocytes (%) (Auto) 9 % (24-48) Monocytes (%) (Auto) 11 % (0-9) Eosinophils (%) (Auto) 8 % (0-3) Basophils (%) (Auto) 1 % (0-3) Neutrophils # (Auto) 3.7 x10^3uL (1.8-7.7) Lymphocytes # (Auto) 0.5 x10^3/uL (1.0-4.8) Monocytes # (Auto) 0.6 x10^3/uL (0.0-1.1) Eosinophils # (Auto) 0.4 x10^3/uL (0.0-0.7) Basophils # (Auto) 0.0 x10^3/uL (0.0-0.2) Review of Systems Review of Systems c/o fatigue c/o hunger Assessment and Plan Assessmemt and Plan cc: Left lower leg fracture, poorly healing Morbid obesity, BMI 47: discuss wt loss DM2, insulin req: continue meds BRYCE on CKD, recent hemodialysis a month ago, improved UO stable - off HD: continue to monitor. Anemia, normocytic of CKD: PRN transfusions HTN: continue losartan & other meds Depression: continue celexa Consulting heme- will follow Probable d/c SNU when stable Problems: Comment Review of Relevant I have reviewed the following items lauryn (where applicable) has been applied. Labs Laboratory Tests Test 02/20/17 16:15 02/20/17 20:00 02/20/17 21:02 02/21/17 03:30 Glucose (Fingerstick) 169 mg/dL (70-99) 204 mg/dL (70-99) Hemoglobin 6.9 g/dL (13.0-17.5) 7.0 g/dL (13.0-17.5) Hematocrit 20.2 % (39.0-53.0) 20.0 % (39.0-53.0) Mean Corpuscular Hemoglobin Concent 34 g/dL (31-37) 35 g/dL (31-37) White Blood Count 5.6 x10^3/uL (4.0-11.0) Red Blood Count 2.18 x10^6/uL (4.30-5.70) Mean Corpuscular Volume 92 fL (79-100) Mean Corpuscular Hemoglobin 32 pg (25-35) Red Cell Distribution Width 16.5 % (11.5-14.5) Platelet Count 128 x10^3/uL (140-400) Neutrophils (%) (Auto) 70 % (31-73) Lymphocytes (%) (Auto) 10 % (24-48) Monocytes (%) (Auto) 14 % (0-9) Eosinophils (%) (Auto) 6 % (0-3) Basophils (%) (Auto) 0 % (0-3) Neutrophils # (Auto) 3.9 x10^3uL (1.8-7.7) Lymphocytes # (Auto) 0.6 x10^3/uL (1.0-4.8) Monocytes # (Auto) 0.8 x10^3/uL (0.0-1.1) Eosinophils # (Auto) 0.3 x10^3/uL (0.0-0.7) Basophils # (Auto) 0.0 x10^3/uL (0.0-0.2) Sodium Level 141 mmol/L (136-145) Potassium Level 4.1 mmol/L (3.5-5.1) Chloride Level 106 mmol/L (98-107) Carbon Dioxide Level 25 mmol/L (21-32) Anion Gap 10 (6-14) Blood Urea Nitrogen 30 mg/dL (8-26) Creatinine 1.6 mg/dL (0.7-1.3) Estimated GFR (Cockcroft-Gault) 43.9 BUN/Creatinine Ratio 19 (6-20) Glucose Level 172 mg/dL (70-99) Calcium Level 8.3 mg/dL (8.5-10.1) Total Bilirubin 0.2 mg/dL (0.2-1.0) Aspartate Amino Transf (AST/SGOT) 15 U/L (15-37) Alanine Aminotransferase (ALT/SGPT) 12 U/L (16-63) Alkaline Phosphatase 67 U/L (46-116) Total Protein 5.9 g/dL (6.4-8.2) Albumin 2.0 g/dL (3.4-5.0) Albumin/Globulin Ratio 0.5 (1.0-1.7) Test 02/21/17 07:11 02/21/17 12:13 02/21/17 12:20 02/21/17 17:18 Glucose (Fingerstick) 108 mg/dL (70-99) 167 mg/dL (70-99) 180 mg/dL (70-99) Reticulocyte Count (auto) 2.4 % (0.5-2.5) Iron Level 22 ug/dL (65-175) Total Iron Binding Capacity 146 ug/dL (250-450) Iron Saturation 15 % (15-34) Ferritin 802 ng/mL (26-388) Test 02/21/17 20:32 02/22/17 07:28 02/22/17 10:56 02/22/17 11:00 Glucose (Fingerstick) 176 mg/dL (70-99) 151 mg/dL (70-99) 210 mg/dL (70-99) White Blood Count 5.1 x10^3/uL (4.0-11.0) Red Blood Count 2.46 x10^6/uL (4.30-5.70) Hemoglobin 7.8 g/dL (13.0-17.5) Hematocrit 22.2 % (39.0-53.0) Mean Corpuscular Volume 90 fL (79-100) Mean Corpuscular Hemoglobin 32 pg (25-35) Mean Corpuscular Hemoglobin Concent 35 g/dL (31-37) Red Cell Distribution Width 16.2 % (11.5-14.5) Platelet Count 114 x10^3/uL (140-400) Neutrophils (%) (Auto) 71 % (31-73) Lymphocytes (%) (Auto) 9 % (24-48) Monocytes (%) (Auto) 11 % (0-9) Eosinophils (%) (Auto) 8 % (0-3) Basophils (%) (Auto) 1 % (0-3) Neutrophils # (Auto) 3.7 x10^3uL (1.8-7.7) Lymphocytes # (Auto) 0.5 x10^3/uL (1.0-4.8) Monocytes # (Auto) 0.6 x10^3/uL (0.0-1.1) Eosinophils # (Auto) 0.4 x10^3/uL (0.0-0.7) Basophils # (Auto) 0.0 x10^3/uL (0.0-0.2) Laboratory Tests Test 02/21/17 12:13 02/21/17 12:20 02/21/17 17:18 02/21/17 20:32 Glucose (Fingerstick) 167 mg/dL (70-99) 180 mg/dL (70-99) 176 mg/dL (70-99) Reticulocyte Count (auto) 2.4 % (0.5-2.5) Iron Level 22 ug/dL (65-175) Total Iron Binding Capacity 146 ug/dL (250-450) Iron Saturation 15 % (15-34) Ferritin 802 ng/mL (26-388) Test 02/22/17 07:28 02/22/17 10:56 02/22/17 11:00 Glucose (Fingerstick) 151 mg/dL (70-99) 210 mg/dL (70-99) White Blood Count 5.1 x10^3/uL (4.0-11.0) Red Blood Count 2.46 x10^6/uL (4.30-5.70) Hemoglobin 7.8 g/dL (13.0-17.5) Hematocrit 22.2 % (39.0-53.0) Mean Corpuscular Volume 90 fL (79-100) Mean Corpuscular Hemoglobin 32 pg (25-35) Mean Corpuscular Hemoglobin Concent 35 g/dL (31-37) Red Cell Distribution Width 16.2 % (11.5-14.5) Platelet Count 114 x10^3/uL (140-400) Neutrophils (%) (Auto) 71 % (31-73) Lymphocytes (%) (Auto) 9 % (24-48) Monocytes (%) (Auto) 11 % (0-9) Eosinophils (%) (Auto) 8 % (0-3) Basophils (%) (Auto) 1 % (0-3) Neutrophils # (Auto) 3.7 x10^3uL (1.8-7.7) Lymphocytes # (Auto) 0.5 x10^3/uL (1.0-4.8) Monocytes # (Auto) 0.6 x10^3/uL (0.0-1.1) Eosinophils # (Auto) 0.4 x10^3/uL (0.0-0.7) Basophils # (Auto) 0.0 x10^3/uL (0.0-0.2) Medications Current Medications Midazolam HCl (Versed) 2 mg PRN 1X PRN IV PRIOR TO PROCEDURE; Start 02/19/17 at 12:15; Stop 02/20/17 at 12:14; Status DC Fentanyl Citrate (Fentanyl 2ml Vial) 25 mcg PRN Q5MIN PRN IV X 2 DOSES FOR PAIN ; Start 02/19/17 at 12:15; Stop 02/20/17 at 12:14; Status DC Fentanyl Citrate (Fentanyl 2ml Vial) 50 mcg PRN Q5MIN PRN IV X 2 DOSES FOR PAIN ; Start 02/19/17 at 12:15; Stop 02/20/17 at 12:14; Status DC Ringer's Solution 1,000 ml @ 125 mls/hr Q8H IV Last administered on 02/19/17t 12:09; Start 02/19/17 at 12:07; Stop 02/20/17 at 00:06; Status DC Lidocaine HCl 2 ml 1X PRN PRN ID IV START; Start 02/19/17 at 12:15; Stop at 12:14; Status DC Fentanyl Citrate (Fentanyl 5ml Vial) 250 mcg STK-MED ONCE .ROUTE ; Start at 13:02; Stop 02/19/17 at 13:03; Status DC Rocuronium [place] (Zemuron) 100 mg STK-MED ONCE .ROUTE ; Start 02/19/17 at 13:02 ; Stop 02/19/17 at 13:03; Status DC Sevoflurane (Ultane) 90 ml STK-MED ONCE IH ; Start 02/19/17 at 13:04; Stop at 13:05; Status DC Propofol 20 ml @ As Directed STK-MED ONCE IV ; Start 02/19/17 at 13:04; Stop 02/19 at 13:05; Status DC Dexamethasone Sodium Phosphate (Decadron) 20 mg STK-MED ONCE .ROUTE ; Start 02/19 at 13:04; Stop 02/19/17 at 13:05; Status DC Ondansetron HCl (Zofran) 4 mg STK-MED ONCE .ROUTE ; Start 02/19/17 at 13:04; Stop 02/19/17 at 13:05; Status DC Lidocaine HCl (Lidocaine Pf 2% Vial) 5 ml STK-MED ONCE .ROUTE ; Start 02/19/17 at 13:05; Stop 02/19/17 at 13:06; Status DC Cefazolin Sodium 50 ml @ As Directed STK-MED ONCE IV ; Start 02/19/17 at 13:50; Stop 02/19/17 at 13:51; Status DC Neostigmine Methylsulfate (Bloxiverz) 10 mg STK-MED ONCE .ROUTE ; Start 02/19/17 at 14:50; Stop 02/19/17 at 14:51; Status DC Glycopyrrolate (Robinul) 1 mg STK-MED ONCE .ROUTE ; Start 02/19/17 at 14:50; Stop 02/19/17 at 14:51; Status DC Neostigmine Methylsulfate (Bloxiverz) 10 mg STK-MED ONCE .ROUTE ; Start 02/19/17 at 14:51; Stop 02/19/17 at 14:52; Status DC Propofol 20 ml @ As Directed STK-MED ONCE IV ; Start 02/19/17 at 14:57; Stop 02/19 at 14:58; Status DC Phenylephrine HCl 1 mg STK-MED ONCE IV ; Start 02/19/17 at 15:46; Stop 02/19/17 at 15:47; Status DC Ondansetron HCl (Zofran) 4 mg PRN Q6HRS PRN IV NAUSEA/VOMITING; Start 02/19/17 at 18:00; Stop 02/19/17 at 20:00; Status DC Fentanyl Citrate (Fentanyl 2ml Vial) 25 mcg PRN Q5MIN PRN IV MILD PAIN; Start 02/19/17 at 18:00; Stop 02/19/17 at 18:06; Status DC Fentanyl Citrate (Fentanyl 2ml Vial) 50 mcg PRN Q5MIN PRN IV MODERATE PAIN; Start 02/19/17 at 18:00; Stop 02/19/17 at 18:05; Status DC Ringer's Solution 1,000 ml @ 30 mls/hr Q24H IV ; Start 02/19/17 at 17:58; Stop 02/20/17 at 05:57; Status DC Lidocaine HCl 2 ml PRN 1X PRN ID PRIOR TO IV START; Start 02/19/17 at 18:00; Stop 02/19/17 at 18:05; Status DC Prochlorperazine Edisylate (Compazine) 5 mg PACU PRN PRN IV NAUSEA, MRX1; Start 02/19/17 at 18:00; Stop 02/19/17 at 20:00; Status DC Oxycodone HCl (Roxicodone) 5 mg PRN Q3HRS PRN PO PAIN Last administered on 02/21 22:27; Start 02/19/17 at 19:00 Fentanyl Citrate (Fentanyl 2ml Vial) 25 mcg PRN Q1HR PRN IV PAIN; Start at 19:00 Senna/Docusate Sodium (Senna Plus) 1 tab DAILY PO Last administered on 10:47; Start 02/20/17 at 09:00 Polyethylene Glycol (miraLAX PACKET) 17 gm PRN DAILY PRN PO CONSTIPATION; Start 02/19/17 at 19:00 Ondansetron HCl (Zofran) 4 mg PRN Q4HRS PRN IV NAUSEA/VOMITING; Start 02/19/17 at 19:00 Magnesium Hydroxide (Milk Of Magnesia) 2,400 mg 1X PRN PRN PO CONSTIPATION; Start 02/20/17 at 06:00; Stop 02/21/17 at 05:59; Status DC Bisacodyl (Dulcolax Supp) 10 mg 1X PRN PRN [place] CONSTIPATION; Start 02/20/17 at 16 :00; Stop 02/21/17 at 15:59; Status DC Acetaminophen/ Hydrocodone Bitart (Lortab 7.5/325) 1 tab PRN Q4HRS PRN PO PAIN Last administered on 02/20/17 09:55; Start 02/19/17 at 19:00 Acetaminophen/ Hydrocodone Bitart (Lortab 7.5/325) 2 tab PRN Q4HRS PRN PO PAIN Last administered on 02/21/17 20:13; Start 02/19/17 at 19:00 Dextrose (Dextrose 50%-Water Syringe) 12.5 gm PRN Q15MIN PRN IV SEE COMMENTS; Start 02/19/17 at 19:00 Cefazolin Sodium 3 gm/Sodium Chloride 100 ml @ 200 mls/hr Q6H IV Last administered on 02/20/17 06:30; Start 02/19/17 at 19:00; Stop 02/20/17 at 07:29; Status DC Aspirin (Omkar Aspirin) 325 mg DAILY PO Last administered on 02/22/17 10:47; Start 02/20/17 at 09:00 Atorvastatin Calcium (Lipitor) 20 mg QHS PO Last administered on 02/21/17 20: 13; Start 02/19/17 at 21:00 Celecoxib (CeleBREX) 200 mg BID PO Last administered on 02/22/17 10:46; Start 02/19/17 at 21:00 Vitamin D (Vitamin D3) 1,000 unit DAILY PO Last administered on 02/22/17 10:48 ; Start 02/20/17 at 09:00 Clopidogrel Bisulfate (Plavix) 75 mg DAILY PO Last administered on 02/22/17 10 :47; Start 02/20/17 at 09:00 Docusate Sodium (Colace) 100 mg DAILY PO Last administered on 02/22/17 10:48; Start 02/20/17 at 09:00 Fentanyl (Duragesic 75mcg/ Hr Patch) 1 patch Q3DAYS TD Last administered on 02/20 20:18; Start 02/20/17 at 20:00 Acetaminophen/ Hydrocodone Bitart (Lortab 7.5/325) 1 tab PRN Q4HRS PRN PO MODERATE PAIN; Start 02/19/17 at 19:00; Stop 02/19/17 at 19:27; Status DC Losartan Potassium (Cozaar) 50 mg DAILY PO Last administered on 02/22/17 10:47 ; Start 02/20/17 at 09:00 Metformin HCl (Glucophage) 500 mg BIDAFTMEAL PO Last administered on 02/22/17 10:47; Start 02/19/17 at 21:00 Pantoprazole Sodium (Protonix) 40 mg DAILYAC PO Last administered on 02/22/17 10:46; Start 02/20/17 at 07:30 Tamsulosin HCl (Flomax) 0.4 mg BID PO Last administered on 02/22/17 10:48; Start 02/19/17 at 21:00 Tamsulosin HCl (Flomax) 0.4 mg HS PO ; Start 02/19/17 at 21:00; Stop 02/19/17 at 21:00; Status DC Citalopram Hydrobromide (CeleXA) 40 mg DAILY PO Last administered on 02/22/17 10:48; Start 02/20/17 at 09:00 Gabapentin (Neurontin) 300 mg BID PO Last administered on 02/22/17 10:46; Start 02/19/17 at 21:00 Insulin Aspart (NovoLOG) 15 units TIDAC SQ Last administered on 02/22/17 11:00 ; Start 02/20/17 at 07:30 Insulin Detemir (Levemir) 22 units QHS SQ Last administered on 02/21/17 21:04 ; Start 02/19/17 at 21:00 Non-Formulary Medication 3.375 gm Q6HRS IV ; Start 02/20/17 at 00:00; Stop at 00:00; Status DC Alteplase, Recombinant (Cathflo) 2 mg 1X ONCE INT CAT Last administered on 02/19 23:32; Start 02/19/17 at 23:30; Stop 02/19/17 at 23:31; Status DC Piperacillin Sod/ Tazobactam Sod (Zosyn Per Pharmacy) 1 each PRN DAILY PRN MC SEE COMMENTS; Start 02/20/17 at 15:30 Piperacillin Sod/ Tazobactam Sod 3.375 gm/Sodium Chloride 50 ml @ 100 mls/hr Q6HRS IV Last administered on 02/22/17 05:32; Start 02/20/17 at 15:30 Albuterol/ Ipratropium (Duoneb) 3 ml RTQID NEB ; Start 02/22/17 at 08:00; Stop 02/22/17 at 08:00; Status DC Albuterol Sulfate (Ventolin Neb Soln) 2.5 mg PRN Q2HR PRN NEB SHORTNESS OF BREATH Last administered on 02/22/17 01:00; Start 02/22/17 at 00:45 Active Scripts Active Hydrocodone-Apap 7.5-325 (Hydrocodone Bit/Acetaminophen) 1 Each Tablet 1 Tab PO PRN Q4HRS PRN Reported Tamsulosin Hcl 0.4 Mg Cap.er.24h 1 Cap PO DAILY Zosyn 3.375 Gm Galaxy Bag (Oxhcznndwblp-Ymmm-Fuzdkbkw,Iso) 3.375 Gm/50 Ml Froz.piggy 3.375 Gm IV Q6HRS Novolog (Insulin Aspart) 100 Unit/1 Ml Cartridge 15 Unit SQ TIDAC Pantoprazole Sodium 40 Mg Tablet.dr 40 Mg PO DAILY Levemir (Insulin Detemir) 100 Unit/1 Ml Vial 22 Unit SQ HS FENTANYL 75mcg/hr (Fentanyl) 1 Each Patch.td72 1 Patch TP Q3DAYS Colace (Docusate Sodium) 100 Mg Capsule 1 Cap PO DAILY Aspirin 325 Mg Tablet 1 Tab PO DAILY Vitamin D3 (Cholecalciferol (Vitamin D3)) 1,000 Unit Tablet 1 Tab PO DAILY Losartan Potassium 50 Mg Tablet 50 Mg PO DAILY Gabapentin 300 Mg Capsule 300 Mg PO BID Celebrex (Celecoxib) 200 Mg Capsule 200 Mg PO BID 30 Days Citalopram Hbr (Citalopram Hydrobromide) 40 Mg Tablet 40 Mg PO DAILY Lipitor (Atorvastatin Calcium) 20 Mg Tablet 20 Mg PO QHS Flomax (Tamsulosin Hcl) 0.4 Mg Cap.er.24h 0.4 Mg PO HS Metformin Hcl 500 Mg Tablet 500 Mg PO BID Plavix (Clopidogrel Bisulfate) 75 Mg Tablet 75 Mg PO DAILY Vitals/I & O Vital Sign - Last 24 Hours 02/21/17 02/21/17 02/21/17 02/21/17 13:03 13:18 14:20 15:00 Temp 97.7 97.7 98.1 98.1 97.7 97.7 98.1 98.1 Pulse 89 89 82 83 Resp 18 18 20 20 B/P (MAP) 111/68 114/68 118/68 118/68 (85) Pulse Ox 96 O2 Delivery Room Air 02/21/17 02/21/17 02/21/17 02/21/17 15:20 15:55 16:35 17:00 Temp 97.7 98.1 97.7 97.7 98.1 97.7 Pulse 84 92 100 Resp 20 22 22 B/P (MAP) 133/74 147/89 131/79 (96) Pulse Ox 96 O2 Delivery Room Air Room Air 02/21/17 02/21/17 02/21/17 02/21/17 19:00 20:00 20:13 21:13 Temp 98.1 98.1 Pulse 87 Resp 20 20 20 B/P (MAP) 116/69 (85) Pulse Ox 94 94 94 O2 Delivery Room Air Nasal Cannula Room Air Nasal Cannula O2 Flow Rate 2.0 2.0 02/21/17 02/21/17 02/21/17 02/22/17 22:27 23:00 23:27 01:02 Temp 97.1 97.1 Pulse 90 Resp 20 20 20 B/P (MAP) 148/85 (106) Pulse Ox 94 94 94 97 O2 Delivery Nasal Cannula Room Air Nasal Cannula Room Air O2 Flow Rate 2.0 2.0 02/22/17 02/22/17 02/22/17 02/22/17 03:00 07:00 10:47 11:00 Temp 98.1 97.9 97.9 98.1 97.9 97.9 Pulse 85 85 85 88 Resp 20 20 20 B/P (MAP) 143/93 (110) 153/88 (109) 153/88 134/80 (98) Pulse Ox 95 94 96 O2 Delivery Room Air Room Air Room Air Intake and Output 02/22/17 02/22/17 02/23/17 15:00 23:00 07:00 Intake Total 350 ml Balance 350 ml PRATIBHA FATIMA III DO Feb 22, 2017 11:58
[2017-02-22 13:32] LABS: FOLATE 6.63 ng/ml (3.2-20.0)
--- NOTE | 2017-02-22 14:36 | PDOC ---
PROGRESS NOTES Subjective Subjective c/c - f/u of Anemia Objective Objective Vital Signs Date Time Temp Pulse Resp B/P (MAP) Pulse Ox O2 Delivery O2 Flow Rate FiO2 02/22/17 11:00 97.9 88 20 134/80 (98) 96 Room Air 97.9 02/21/17 23:27 2.0 Intake and Output 02/23/17 07:00 Intake Total 650 ml Balance 650 ml Intake Oral 650 ml Physical Exam Heart: Normal S1, Normal S2 General: Alert, Oriented X3 Lungs: Clear to auscultation Neuro: Normal speech Psych/Mental Status: Mental status NL Assessment Assessment Assessment/Plan 62 yo male with multiple comorbidities admitted to the hospital for revision of Left ankle external fixation and fusion. He was found to be anemic and we were consulted. Anemia. Most likely this is anemia of chronic disease. It is slightly worsened from his surgical procedure. On 01/01/17 he had a hgb of 9.6. Iron studies, b12 , folic acid, do not reveal any deficiencies. Retic count unremarkable. Given renal insufficiency would also check SPEP and immunofixation. I would transfuse if he becomes symptomatic. Hb better at 7.8 on 02/22/17, monitor cbc. Comment Review of Relevant I have reviewed the following items lauryn (where applicable) has been applied. Labs Laboratory Tests Test 02/20/17 16:15 02/20/17 20:00 02/20/17 21:02 02/21/17 03:30 Glucose (Fingerstick) 169 mg/dL (70-99) 204 mg/dL (70-99) Hemoglobin 6.9 g/dL (13.0-17.5) 7.0 g/dL (13.0-17.5) Hematocrit 20.2 % (39.0-53.0) 20.0 % (39.0-53.0) Mean Corpuscular Hemoglobin Concent 34 g/dL (31-37) 35 g/dL (31-37) White Blood Count 5.6 x10^3/uL (4.0-11.0) Red Blood Count 2.18 x10^6/uL (4.30-5.70) Mean Corpuscular Volume 92 fL (79-100) Mean Corpuscular Hemoglobin 32 pg (25-35) Red Cell Distribution Width 16.5 % (11.5-14.5) Platelet Count 128 x10^3/uL (140-400) Neutrophils (%) (Auto) 70 % (31-73) Lymphocytes (%) (Auto) 10 % (24-48) Monocytes (%) (Auto) 14 % (0-9) Eosinophils (%) (Auto) 6 % (0-3) Basophils (%) (Auto) 0 % (0-3) Neutrophils # (Auto) 3.9 x10^3uL (1.8-7.7) Lymphocytes # (Auto) 0.6 x10^3/uL (1.0-4.8) Monocytes # (Auto) 0.8 x10^3/uL (0.0-1.1) Eosinophils # (Auto) 0.3 x10^3/uL (0.0-0.7) Basophils # (Auto) 0.0 x10^3/uL (0.0-0.2) Sodium Level 141 mmol/L (136-145) Potassium Level 4.1 mmol/L (3.5-5.1) Chloride Level 106 mmol/L (98-107) Carbon Dioxide Level 25 mmol/L (21-32) Anion Gap 10 (6-14) Blood Urea Nitrogen 30 mg/dL (8-26) Creatinine 1.6 mg/dL (0.7-1.3) Estimated GFR (Cockcroft-Gault) 43.9 BUN/Creatinine Ratio 19 (6-20) Glucose Level 172 mg/dL (70-99) Calcium Level 8.3 mg/dL (8.5-10.1) Total Bilirubin 0.2 mg/dL (0.2-1.0) Aspartate Amino Transf (AST/SGOT) 15 U/L (15-37) Alanine Aminotransferase (ALT/SGPT) 12 U/L (16-63) Alkaline Phosphatase 67 U/L (46-116) Total Protein 5.9 g/dL (6.4-8.2) Albumin 2.0 g/dL (3.4-5.0) Albumin/Globulin Ratio 0.5 (1.0-1.7) Test 02/21/17 07:11 02/21/17 12:13 02/21/17 12:20 02/21/17 17:18 Glucose (Fingerstick) 108 mg/dL (70-99) 167 mg/dL (70-99) 180 mg/dL (70-99) Reticulocyte Count (auto) 2.4 % (0.5-2.5) Iron Level 22 ug/dL (65-175) Total Iron Binding Capacity 146 ug/dL (250-450) Iron Saturation 15 % (15-34) Ferritin 802 ng/mL (26-388) Vitamin B12 Level 400 pg/mL (247-911) Serum Folate 6.63 ng/ml (3.2-20.0) Test 02/21/17 20:32 02/22/17 07:28 02/22/17 10:56 02/22/17 11:00 Glucose (Fingerstick) 176 mg/dL (70-99) 151 mg/dL (70-99) 210 mg/dL (70-99) White Blood Count 5.1 x10^3/uL (4.0-11.0) Red Blood Count 2.46 x10^6/uL (4.30-5.70) Hemoglobin 7.8 g/dL (13.0-17.5) Hematocrit 22.2 % (39.0-53.0) Mean Corpuscular Volume 90 fL (79-100) Mean Corpuscular Hemoglobin 32 pg (25-35) Mean Corpuscular Hemoglobin Concent 35 g/dL (31-37) Red Cell Distribution Width 16.2 % (11.5-14.5) Platelet Count 114 x10^3/uL (140-400) Neutrophils (%) (Auto) 71 % (31-73) Lymphocytes (%) (Auto) 9 % (24-48) Monocytes (%) (Auto) 11 % (0-9) Eosinophils (%) (Auto) 8 % (0-3) Basophils (%) (Auto) 1 % (0-3) Neutrophils # (Auto) 3.7 x10^3uL (1.8-7.7) Lymphocytes # (Auto) 0.5 x10^3/uL (1.0-4.8) Monocytes # (Auto) 0.6 x10^3/uL (0.0-1.1) Eosinophils # (Auto) 0.4 x10^3/uL (0.0-0.7) Basophils # (Auto) 0.0 x10^3/uL (0.0-0.2) Laboratory Tests Test 02/21/17 17:18 02/21/17 20:32 02/22/17 07:28 02/22/17 10:56 Glucose (Fingerstick) 180 mg/dL (70-99) 176 mg/dL (70-99) 151 mg/dL (70-99) 210 mg/dL (70-99) Test 02/22/17 11:00 White Blood Count 5.1 x10^3/uL (4.0-11.0) Red Blood Count 2.46 x10^6/uL (4.30-5.70) Hemoglobin 7.8 g/dL (13.0-17.5) Hematocrit 22.2 % (39.0-53.0) Mean Corpuscular Volume 90 fL (79-100) Mean Corpuscular Hemoglobin 32 pg (25-35) Mean Corpuscular Hemoglobin Concent 35 g/dL (31-37) Red Cell Distribution Width 16.2 % (11.5-14.5) Platelet Count 114 x10^3/uL (140-400) Neutrophils (%) (Auto) 71 % (31-73) Lymphocytes (%) (Auto) 9 % (24-48) Monocytes (%) (Auto) 11 % (0-9) Eosinophils (%) (Auto) 8 % (0-3) Basophils (%) (Auto) 1 % (0-3) Neutrophils # (Auto) 3.7 x10^3uL (1.8-7.7) Lymphocytes # (Auto) 0.5 x10^3/uL (1.0-4.8) Monocytes # (Auto) 0.6 x10^3/uL (0.0-1.1) Eosinophils # (Auto) 0.4 x10^3/uL (0.0-0.7) Basophils # (Auto) 0.0 x10^3/uL (0.0-0.2) Medications Current Medications Midazolam HCl (Versed) 2 mg PRN 1X PRN IV PRIOR TO PROCEDURE; Start 02/19/17 at 12:15; Stop 02/20/17 at 12:14; Status DC Fentanyl Citrate (Fentanyl 2ml Vial) 25 mcg PRN Q5MIN PRN IV X 2 DOSES FOR PAIN ; Start 02/19/17 at 12:15; Stop 02/20/17 at 12:14; Status DC Fentanyl Citrate (Fentanyl 2ml Vial) 50 mcg PRN Q5MIN PRN IV X 2 DOSES FOR PAIN ; Start 02/19/17 at 12:15; Stop 02/20/17 at 12:14; Status DC Ringer's Solution 1,000 ml @ 125 mls/hr Q8H IV Last administered on 02/19/17t 12:09; Start 02/19/17 at 12:07; Stop 02/20/17 at 00:06; Status DC Lidocaine HCl 2 ml 1X PRN PRN ID IV START; Start 02/19/17 at 12:15; Stop at 12:14; Status DC Fentanyl Citrate (Fentanyl 5ml Vial) 250 mcg STK-MED ONCE .ROUTE ; Start at 13:02; Stop 02/19/17 at 13:03; Status DC Rocuronium [place] (Zemuron) 100 mg STK-MED ONCE .ROUTE ; Start 02/19/17 at 13:02 ; Stop 02/19/17 at 13:03; Status DC Sevoflurane (Ultane) 90 ml STK-MED ONCE IH ; Start 02/19/17 at 13:04; Stop at 13:05; Status DC Propofol 20 ml @ As Directed STK-MED ONCE IV ; Start 02/19/17 at 13:04; Stop 02/19 at 13:05; Status DC Dexamethasone Sodium Phosphate (Decadron) 20 mg STK-MED ONCE .ROUTE ; Start 02/19 at 13:04; Stop 02/19/17 at 13:05; Status DC Ondansetron HCl (Zofran) 4 mg STK-MED ONCE .ROUTE ; Start 02/19/17 at 13:04; Stop 02/19/17 at 13:05; Status DC Lidocaine HCl (Lidocaine Pf 2% Vial) 5 ml STK-MED ONCE .ROUTE ; Start 02/19/17 at 13:05; Stop 02/19/17 at 13:06; Status DC Cefazolin Sodium 50 ml @ As Directed STK-MED ONCE IV ; Start 02/19/17 at 13:50; Stop 02/19/17 at 13:51; Status DC Neostigmine Methylsulfate (Bloxiverz) 10 mg STK-MED ONCE .ROUTE ; Start 02/19/17 at 14:50; Stop 02/19/17 at 14:51; Status DC Glycopyrrolate (Robinul) 1 mg STK-MED ONCE .ROUTE ; Start 02/19/17 at 14:50; Stop 02/19/17 at 14:51; Status DC Neostigmine Methylsulfate (Bloxiverz) 10 mg STK-MED ONCE .ROUTE ; Start 02/19/17 at 14:51; Stop 02/19/17 at 14:52; Status DC Propofol 20 ml @ As Directed STK-MED ONCE IV ; Start 02/19/17 at 14:57; Stop 02/19 at 14:58; Status DC Phenylephrine HCl 1 mg STK-MED ONCE IV ; Start 02/19/17 at 15:46; Stop 02/19/17 at 15:47; Status DC Ondansetron HCl (Zofran) 4 mg PRN Q6HRS PRN IV NAUSEA/VOMITING; Start 02/19/17 at 18:00; Stop 02/19/17 at 20:00; Status DC Fentanyl Citrate (Fentanyl 2ml Vial) 25 mcg PRN Q5MIN PRN IV MILD PAIN; Start 02/19/17 at 18:00; Stop 02/19/17 at 18:06; Status DC Fentanyl Citrate (Fentanyl 2ml Vial) 50 mcg PRN Q5MIN PRN IV MODERATE PAIN; Start 02/19/17 at 18:00; Stop 02/19/17 at 18:05; Status DC Ringer's Solution 1,000 ml @ 30 mls/hr Q24H IV ; Start 02/19/17 at 17:58; Stop 02/20/17 at 05:57; Status DC Lidocaine HCl 2 ml PRN 1X PRN ID PRIOR TO IV START; Start 02/19/17 at 18:00; Stop 02/19/17 at 18:05; Status DC Prochlorperazine Edisylate (Compazine) 5 mg PACU PRN PRN IV NAUSEA, MRX1; Start 02/19/17 at 18:00; Stop 02/19/17 at 20:00; Status DC Oxycodone HCl (Roxicodone) 5 mg PRN Q3HRS PRN PO PAIN Last administered on 02/21t 22:27; Start 02/19/17 at 19:00 Fentanyl Citrate (Fentanyl 2ml Vial) 25 mcg PRN Q1HR PRN IV PAIN; Start at 19:00 Senna/Docusate Sodium (Senna Plus) 1 tab DAILY PO Last administered on 10:47; Start 02/20/17 at 09:00 Polyethylene Glycol (miraLAX PACKET) 17 gm PRN DAILY PRN PO CONSTIPATION; Start 02/19/17 at 19:00 Ondansetron HCl (Zofran) 4 mg PRN Q4HRS PRN IV NAUSEA/VOMITING; Start 02/19/17 at 19:00 Magnesium Hydroxide (Milk Of Magnesia) 2,400 mg 1X PRN PRN PO CONSTIPATION; Start 02/20/17 at 06:00; Stop 02/21/17 at 05:59; Status DC Bisacodyl (Dulcolax Supp) 10 mg 1X PRN PRN [place] CONSTIPATION; Start 02/20/17 at 16 :00; Stop 02/21/17 at 15:59; Status DC Acetaminophen/ Hydrocodone Bitart (Lortab 7.5/325) 1 tab PRN Q4HRS PRN PO PAIN Last administered on 02/20/17 09:55; Start 02/19/17 at 19:00 Acetaminophen/ Hydrocodone Bitart (Lortab 7.5/325) 2 tab PRN Q4HRS PRN PO PAIN Last administered on 02/21/17 20:13; Start 02/19/17 at 19:00 Dextrose (Dextrose 50%-Water Syringe) 12.5 gm PRN Q15MIN PRN IV SEE COMMENTS; Start 02/19/17 at 19:00 Cefazolin Sodium 3 gm/Sodium Chloride 100 ml @ 200 mls/hr Q6H IV Last administered on 02/20/17 06:30; Start 02/19/17 at 19:00; Stop 02/20/17 at 07:29; Status DC Aspirin (Omkar Aspirin) 325 mg DAILY PO Last administered on 02/22/17 10:47; Start 02/20/17 at 09:00 Atorvastatin Calcium (Lipitor) 20 mg QHS PO Last administered on 02/21/17 20: 13; Start 02/19/17 at 21:00 Celecoxib (CeleBREX) 200 mg BID PO Last administered on 02/22/17 10:46; Start 02/19/17 at 21:00 Vitamin D (Vitamin D3) 1,000 unit DAILY PO Last administered on 02/22/17 10:48 ; Start 02/20/17 at 09:00 Clopidogrel Bisulfate (Plavix) 75 mg DAILY PO Last administered on 02/22/17 10 :47; Start 02/20/17 at 09:00 Docusate Sodium (Colace) 100 mg DAILY PO Last administered on 02/22/17 10:48; Start 02/20/17 at 09:00 Fentanyl (Duragesic 75mcg/ Hr Patch) 1 patch Q3DAYS TD Last administered on 02/20 20:18; Start 02/20/17 at 20:00 Acetaminophen/ Hydrocodone Bitart (Lortab 7.5/325) 1 tab PRN Q4HRS PRN PO MODERATE PAIN; Start 02/19/17 at 19:00; Stop 02/19/17 at 19:27; Status DC Losartan Potassium (Cozaar) 50 mg DAILY PO Last administered on 02/22/17 10:47 ; Start 02/20/17 at 09:00 Metformin HCl (Glucophage) 500 mg BIDAFTMEAL PO Last administered on 02/22/17 10:47; Start 02/19/17 at 21:00 Pantoprazole Sodium (Protonix) 40 mg DAILYAC PO Last administered on 02/22/17 10:46; Start 02/20/17 at 07:30 Tamsulosin HCl (Flomax) 0.4 mg BID PO Last administered on 02/22/17 10:48; Start 02/19/17 at 21:00 Tamsulosin HCl (Flomax) 0.4 mg HS PO ; Start 02/19/17 at 21:00; Stop 02/19/17 at 21:00; Status DC Citalopram Hydrobromide (CeleXA) 40 mg DAILY PO Last administered on 02/22/17 10:48; Start 02/20/17 at 09:00 Gabapentin (Neurontin) 300 mg BID PO Last administered on 02/22/17 10:46; Start 02/19/17 at 21:00 Insulin Aspart (NovoLOG) 15 units TIDAC SQ Last administered on 02/22/17 13:48 ; Start 02/20/17 at 07:30 Insulin Detemir (Levemir) 22 units QHS SQ Last administered on 02/21/17 21:04 ; Start 02/19/17 at 21:00 Non-Formulary Medication 3.375 gm Q6HRS IV ; Start 02/20/17 at 00:00; Stop at 00:00; Status DC Alteplase, Recombinant (Cathflo) 2 mg 1X ONCE INT CAT Last administered on 02/19 23:32; Start 02/19/17 at 23:30; Stop 02/19/17 at 23:31; Status DC Piperacillin Sod/ Tazobactam Sod (Zosyn Per Pharmacy) 1 each PRN DAILY PRN MC SEE COMMENTS; Start 02/20/17 at 15:30 Piperacillin Sod/ Tazobactam Sod 3.375 gm/Sodium Chloride 50 ml @ 100 mls/hr Q6HRS IV Last administered on 02/22/17 13:43; Start 02/20/17 at 15:30 Albuterol/ Ipratropium (Duoneb) 3 ml RTQID NEB ; Start 02/22/17 at 08:00; Stop 02/22/17 at 08:00; Status DC Albuterol Sulfate (Ventolin Neb Soln) 2.5 mg PRN Q2HR PRN NEB SHORTNESS OF BREATH Last administered on 02/22/17 01:00; Start 02/22/17 at 00:45 Cefazolin Sodium/ Dextrose (Ancef 2gm Premix) 2 gm STK-MED ONCE IV ; Start at 14:00; Stop 02/22/17 at 12:48; Status DC Active Scripts Active Hydrocodone-Apap 7.5-325 (Hydrocodone Bit/Acetaminophen) 1 Each Tablet 1 Tab PO PRN Q4HRS PRN Reported Tamsulosin Hcl 0.4 Mg Cap.er.24h 1 Cap PO DAILY Zosyn 3.375 Gm Galaxy Bag (Yuhwviqcdfvc-Wveg-Uaaknqlw,Iso) 3.375 Gm/50 Ml Froz.piggy 3.375 Gm IV Q6HRS Novolog (Insulin Aspart) 100 Unit/1 Ml Cartridge 15 Unit SQ TIDAC Pantoprazole Sodium 40 Mg Tablet.dr 40 Mg PO DAILY Levemir (Insulin Detemir) 100 Unit/1 Ml Vial 22 Unit SQ HS FENTANYL 75mcg/hr (Fentanyl) 1 Each Patch.td72 1 Patch TP Q3DAYS Colace (Docusate Sodium) 100 Mg Capsule 1 Cap PO DAILY Aspirin 325 Mg Tablet 1 Tab PO DAILY Vitamin D3 (Cholecalciferol (Vitamin D3)) 1,000 Unit Tablet 1 Tab PO DAILY Losartan Potassium 50 Mg Tablet 50 Mg PO DAILY Gabapentin 300 Mg Capsule 300 Mg PO BID Celebrex (Celecoxib) 200 Mg Capsule 200 Mg PO BID 30 Days Citalopram Hbr (Citalopram Hydrobromide) 40 Mg Tablet 40 Mg PO DAILY Lipitor (Atorvastatin Calcium) 20 Mg Tablet 20 Mg PO QHS Flomax (Tamsulosin Hcl) 0.4 Mg Cap.er.24h 0.4 Mg PO HS Metformin Hcl 500 Mg Tablet 500 Mg PO BID Plavix (Clopidogrel Bisulfate) 75 Mg Tablet 75 Mg PO DAILY Vitals/I & O Vital Sign - Last 24 Hours 02/21/17 02/21/17 02/21/17 02/21/17 15:00 15:20 15:55 16:35 Temp 98.1 97.7 98.1 98.1 97.7 98.1 Pulse 83 84 92 Resp 20 20 22 B/P (MAP) 118/68 (85) 133/74 147/89 Pulse Ox 96 O2 Delivery Room Air Room Air 02/21/17 02/21/17 02/21/17 02/21/17 17:00 19:00 20:00 20:13 Temp 97.7 98.1 97.7 98.1 Pulse 100 87 Resp 22 20 20 B/P (MAP) 131/79 (96) 116/69 (85) Pulse Ox 96 94 94 O2 Delivery Room Air Room Air Nasal Cannula Room Air O2 Flow Rate 2.0 02/21/17 02/21/17 02/21/17 02/21/17 21:13 22:27 23:00 23:27 Temp 97.1 97.1 Pulse 90 Resp 20 20 20 20 B/P (MAP) 148/85 (106) Pulse Ox 94 94 94 94 O2 Delivery Nasal Cannula Nasal Cannula Room Air Nasal Cannula O2 Flow Rate 2.0 2.0 2.0 02/22/17 02/22/17 02/22/17 02/22/17 01:02 03:00 07:00 10:47 Temp 98.1 97.9 98.1 97.9 Pulse 85 85 85 Resp 20 20 B/P (MAP) 143/93 (110) 153/88 (109) 153/88 Pulse Ox 97 95 94 O2 Delivery Room Air Room Air Room Air 02/22/17 11:00 Temp 97.9 97.9 Pulse 88 Resp 20 B/P (MAP) 134/80 (98) Pulse Ox 96 O2 Delivery Room Air Intake and Output 02/22/17 02/22/17 02/23/17 15:00 23:00 07:00 Intake Total 650 ml Balance 650 ml KAYCE MCKEON MD Feb 22, 2017 14:36
[2017-02-22 15:00] VITALS: BP 145/82
--- NOTE | 2017-02-22 16:46 | PDOC ---
PROGRESS NOTES Subjective Subjective Problems overnight: Delayed injury from 02/21/2017. Pain well-controlled no complaints Objective Vital Signs Vital Signs Date Time Temp Pulse Resp B/P (MAP) Pulse Ox O2 Delivery O2 Flow Rate FiO2 02/22/17 15:00 97.9 84 20 145/82 (103) 95 Room Air 97.9 02/21/17 23:27 2.0 Physical Exam Dressing changed yesterday minimal drainage fix it are intact can wiggle toes neuropathic at baseline Labs Laboratory Tests Test 02/20/17 20:00 02/20/17 21:02 02/21/17 03:30 02/21/17 07:11 Hemoglobin 6.9 g/dL (13.0-17.5) 7.0 g/dL (13.0-17.5) Hematocrit 20.2 % (39.0-53.0) 20.0 % (39.0-53.0) Mean Corpuscular Hemoglobin Concent 34 g/dL (31-37) 35 g/dL (31-37) Glucose (Fingerstick) 204 mg/dL (70-99) 108 mg/dL (70-99) White Blood Count 5.6 x10^3/uL (4.0-11.0) Red Blood Count 2.18 x10^6/uL (4.30-5.70) Mean Corpuscular Volume 92 fL (79-100) Mean Corpuscular Hemoglobin 32 pg (25-35) Red Cell Distribution Width 16.5 % (11.5-14.5) Platelet Count 128 x10^3/uL (140-400) Neutrophils (%) (Auto) 70 % (31-73) Lymphocytes (%) (Auto) 10 % (24-48) Monocytes (%) (Auto) 14 % (0-9) Eosinophils (%) (Auto) 6 % (0-3) Basophils (%) (Auto) 0 % (0-3) Neutrophils # (Auto) 3.9 x10^3uL (1.8-7.7) Lymphocytes # (Auto) 0.6 x10^3/uL (1.0-4.8) Monocytes # (Auto) 0.8 x10^3/uL (0.0-1.1) Eosinophils # (Auto) 0.3 x10^3/uL (0.0-0.7) Basophils # (Auto) 0.0 x10^3/uL (0.0-0.2) Sodium Level 141 mmol/L (136-145) Potassium Level 4.1 mmol/L (3.5-5.1) Chloride Level 106 mmol/L (98-107) Carbon Dioxide Level 25 mmol/L (21-32) Anion Gap 10 (6-14) Blood Urea Nitrogen 30 mg/dL (8-26) Creatinine 1.6 mg/dL (0.7-1.3) Estimated GFR (Cockcroft-Gault) 43.9 BUN/Creatinine Ratio 19 (6-20) Glucose Level 172 mg/dL (70-99) Calcium Level 8.3 mg/dL (8.5-10.1) Total Bilirubin 0.2 mg/dL (0.2-1.0) Aspartate Amino Transf (AST/SGOT) 15 U/L (15-37) Alanine Aminotransferase (ALT/SGPT) 12 U/L (16-63) Alkaline Phosphatase 67 U/L (46-116) Total Protein 5.9 g/dL (6.4-8.2) Albumin 2.0 g/dL (3.4-5.0) Albumin/Globulin Ratio 0.5 (1.0-1.7) Test 02/21/17 12:13 02/21/17 12:20 02/21/17 17:18 02/21/17 20:32 Glucose (Fingerstick) 167 mg/dL (70-99) 180 mg/dL (70-99) 176 mg/dL (70-99) Reticulocyte Count (auto) 2.4 % (0.5-2.5) Iron Level 22 ug/dL (65-175) Total Iron Binding Capacity 146 ug/dL (250-450) Iron Saturation 15 % (15-34) Ferritin 802 ng/mL (26-388) Vitamin B12 Level 400 pg/mL (247-911) Serum Folate 6.63 ng/ml (3.2-20.0) Test 02/22/17 07:28 02/22/17 10:56 02/22/17 11:00 Glucose (Fingerstick) 151 mg/dL (70-99) 210 mg/dL (70-99) White Blood Count 5.1 x10^3/uL (4.0-11.0) Red Blood Count 2.46 x10^6/uL (4.30-5.70) Hemoglobin 7.8 g/dL (13.0-17.5) Hematocrit 22.2 % (39.0-53.0) Mean Corpuscular Volume 90 fL (79-100) Mean Corpuscular Hemoglobin 32 pg (25-35) Mean Corpuscular Hemoglobin Concent 35 g/dL (31-37) Red Cell Distribution Width 16.2 % (11.5-14.5) Platelet Count 114 x10^3/uL (140-400) Neutrophils (%) (Auto) 71 % (31-73) Lymphocytes (%) (Auto) 9 % (24-48) Monocytes (%) (Auto) 11 % (0-9) Eosinophils (%) (Auto) 8 % (0-3) Basophils (%) (Auto) 1 % (0-3) Neutrophils # (Auto) 3.7 x10^3uL (1.8-7.7) Lymphocytes # (Auto) 0.5 x10^3/uL (1.0-4.8) Monocytes # (Auto) 0.6 x10^3/uL (0.0-1.1) Eosinophils # (Auto) 0.4 x10^3/uL (0.0-0.7) Basophils # (Auto) 0.0 x10^3/uL (0.0-0.2) Laboratory Tests Test 02/21/17 17:18 02/21/17 20:32 02/22/17 07:28 02/22/17 10:56 Glucose (Fingerstick) 180 mg/dL (70-99) 176 mg/dL (70-99) 151 mg/dL (70-99) 210 mg/dL (70-99) Test 02/22/17 11:00 White Blood Count 5.1 x10^3/uL (4.0-11.0) Red Blood Count 2.46 x10^6/uL (4.30-5.70) Hemoglobin 7.8 g/dL (13.0-17.5) Hematocrit 22.2 % (39.0-53.0) Mean Corpuscular Volume 90 fL (79-100) Mean Corpuscular Hemoglobin 32 pg (25-35) Mean Corpuscular Hemoglobin Concent 35 g/dL (31-37) Red Cell Distribution Width 16.2 % (11.5-14.5) Platelet Count 114 x10^3/uL (140-400) Neutrophils (%) (Auto) 71 % (31-73) Lymphocytes (%) (Auto) 9 % (24-48) Monocytes (%) (Auto) 11 % (0-9) Eosinophils (%) (Auto) 8 % (0-3) Basophils (%) (Auto) 1 % (0-3) Neutrophils # (Auto) 3.7 x10^3uL (1.8-7.7) Lymphocytes # (Auto) 0.5 x10^3/uL (1.0-4.8) Monocytes # (Auto) 0.6 x10^3/uL (0.0-1.1) Eosinophils # (Auto) 0.4 x10^3/uL (0.0-0.7) Basophils # (Auto) 0.0 x10^3/uL (0.0-0.2) Assessment Assessment POD# [2], S/P [ankle fusion and placement of external fixator] Problems: Plan Plan of Care Infectious disease input appreciated Back on Zosyn Placement when medically stable TIFFANY PAYNE MD Feb 22, 2017 16:46
--- NOTE | 2017-02-22 16:50 | PDOC ---
PROGRESS NOTES Subjective Subjective Problems overnight: Bunny is comfortable with no complaints Objective Vital Signs Vital Signs Date Time Temp Pulse Resp B/P (MAP) Pulse Ox O2 Delivery O2 Flow Rate FiO2 02/22/17 15:00 97.9 84 20 145/82 (103) 95 Room Air 97.9 02/21/17 23:27 2.0 Physical Exam On exam dressings were taken down today. Incisions are healing well medial incision had some moderate serosanguineous drainage pin sites are intact. He had some additional slough with devitalized tissue on the medial aspect of his foot. The packed area on the lateral aspect of his foot appears to be deep but resolving fairly well Labs Laboratory Tests Test 02/20/17 20:00 02/20/17 21:02 02/21/17 03:30 02/21/17 07:11 Hemoglobin 6.9 g/dL (13.0-17.5) 7.0 g/dL (13.0-17.5) Hematocrit 20.2 % (39.0-53.0) 20.0 % (39.0-53.0) Mean Corpuscular Hemoglobin Concent 34 g/dL (31-37) 35 g/dL (31-37) Glucose (Fingerstick) 204 mg/dL (70-99) 108 mg/dL (70-99) White Blood Count 5.6 x10^3/uL (4.0-11.0) Red Blood Count 2.18 x10^6/uL (4.30-5.70) Mean Corpuscular Volume 92 fL (79-100) Mean Corpuscular Hemoglobin 32 pg (25-35) Red Cell Distribution Width 16.5 % (11.5-14.5) Platelet Count 128 x10^3/uL (140-400) Neutrophils (%) (Auto) 70 % (31-73) Lymphocytes (%) (Auto) 10 % (24-48) Monocytes (%) (Auto) 14 % (0-9) Eosinophils (%) (Auto) 6 % (0-3) Basophils (%) (Auto) 0 % (0-3) Neutrophils # (Auto) 3.9 x10^3uL (1.8-7.7) Lymphocytes # (Auto) 0.6 x10^3/uL (1.0-4.8) Monocytes # (Auto) 0.8 x10^3/uL (0.0-1.1) Eosinophils # (Auto) 0.3 x10^3/uL (0.0-0.7) Basophils # (Auto) 0.0 x10^3/uL (0.0-0.2) Sodium Level 141 mmol/L (136-145) Potassium Level 4.1 mmol/L (3.5-5.1) Chloride Level 106 mmol/L (98-107) Carbon Dioxide Level 25 mmol/L (21-32) Anion Gap 10 (6-14) Blood Urea Nitrogen 30 mg/dL (8-26) Creatinine 1.6 mg/dL (0.7-1.3) Estimated GFR (Cockcroft-Gault) 43.9 BUN/Creatinine Ratio 19 (6-20) Glucose Level 172 mg/dL (70-99) Calcium Level 8.3 mg/dL (8.5-10.1) Total Bilirubin 0.2 mg/dL (0.2-1.0) Aspartate Amino Transf (AST/SGOT) 15 U/L (15-37) Alanine Aminotransferase (ALT/SGPT) 12 U/L (16-63) Alkaline Phosphatase 67 U/L (46-116) Total Protein 5.9 g/dL (6.4-8.2) Albumin 2.0 g/dL (3.4-5.0) Albumin/Globulin Ratio 0.5 (1.0-1.7) Test 02/21/17 12:13 02/21/17 12:20 02/21/17 17:18 02/21/17 20:32 Glucose (Fingerstick) 167 mg/dL (70-99) 180 mg/dL (70-99) 176 mg/dL (70-99) Reticulocyte Count (auto) 2.4 % (0.5-2.5) Iron Level 22 ug/dL (65-175) Total Iron Binding Capacity 146 ug/dL (250-450) Iron Saturation 15 % (15-34) Ferritin 802 ng/mL (26-388) Vitamin B12 Level 400 pg/mL (247-911) Serum Folate 6.63 ng/ml (3.2-20.0) Test 02/22/17 07:28 02/22/17 10:56 02/22/17 11:00 Glucose (Fingerstick) 151 mg/dL (70-99) 210 mg/dL (70-99) White Blood Count 5.1 x10^3/uL (4.0-11.0) Red Blood Count 2.46 x10^6/uL (4.30-5.70) Hemoglobin 7.8 g/dL (13.0-17.5) Hematocrit 22.2 % (39.0-53.0) Mean Corpuscular Volume 90 fL (79-100) Mean Corpuscular Hemoglobin 32 pg (25-35) Mean Corpuscular Hemoglobin Concent 35 g/dL (31-37) Red Cell Distribution Width 16.2 % (11.5-14.5) Platelet Count 114 x10^3/uL (140-400) Neutrophils (%) (Auto) 71 % (31-73) Lymphocytes (%) (Auto) 9 % (24-48) Monocytes (%) (Auto) 11 % (0-9) Eosinophils (%) (Auto) 8 % (0-3) Basophils (%) (Auto) 1 % (0-3) Neutrophils # (Auto) 3.7 x10^3uL (1.8-7.7) Lymphocytes # (Auto) 0.5 x10^3/uL (1.0-4.8) Monocytes # (Auto) 0.6 x10^3/uL (0.0-1.1) Eosinophils # (Auto) 0.4 x10^3/uL (0.0-0.7) Basophils # (Auto) 0.0 x10^3/uL (0.0-0.2) Laboratory Tests Test 02/21/17 17:18 02/21/17 20:32 02/22/17 07:28 02/22/17 10:56 Glucose (Fingerstick) 180 mg/dL (70-99) 176 mg/dL (70-99) 151 mg/dL (70-99) 210 mg/dL (70-99) Test 02/22/17 11:00 White Blood Count 5.1 x10^3/uL (4.0-11.0) Red Blood Count 2.46 x10^6/uL (4.30-5.70) Hemoglobin 7.8 g/dL (13.0-17.5) Hematocrit 22.2 % (39.0-53.0) Mean Corpuscular Volume 90 fL (79-100) Mean Corpuscular Hemoglobin 32 pg (25-35) Mean Corpuscular Hemoglobin Concent 35 g/dL (31-37) Red Cell Distribution Width 16.2 % (11.5-14.5) Platelet Count 114 x10^3/uL (140-400) Neutrophils (%) (Auto) 71 % (31-73) Lymphocytes (%) (Auto) 9 % (24-48) Monocytes (%) (Auto) 11 % (0-9) Eosinophils (%) (Auto) 8 % (0-3) Basophils (%) (Auto) 1 % (0-3) Neutrophils # (Auto) 3.7 x10^3uL (1.8-7.7) Lymphocytes # (Auto) 0.5 x10^3/uL (1.0-4.8) Monocytes # (Auto) 0.6 x10^3/uL (0.0-1.1) Eosinophils # (Auto) 0.4 x10^3/uL (0.0-0.7) Basophils # (Auto) 0.0 x10^3/uL (0.0-0.2) Assessment Assessment POD# [3], S/P [left ankle fusion and placement of external fixator] Problems: Plan Plan of Care Continue Zosyn times planned 2 weeks, appreciate infectious disease input Left medial heel area debrided and wet-to-dry dressing placed rest of fixator incisions and pin sites were dressed and the lateral area packed with plain packing Placement when medically stable likely tomorrow at [facility] TIFFANY PAYNE MD Feb 22, 2017 16:50
[2017-02-22 19:00] VITALS: BP 146/71
[2017-02-22] MEDS: ATORVASTATIN CALCIUM 20 MG TABLET PO SCH (20:35)
[2017-02-22] MEDS: HYDROcodone/APAP 7.5/325MG 1 TAB TABLET PO PRN (20:35)
[2017-02-22] MEDS: INSULIN DETEMIR 300 UNITS/3 ML INSULN.PEN. SQ SCH (20:42)
[2017-02-22 23:00] VITALS: BP 124/69
[2017-02-23 03:00] VITALS: BP 134/73
[2017-02-23 05:07] LABS: BASO % 1 % (0-3); EOS % 8 % (0-3); HEMATOCRIT 23.5 % (39.0-53.0); HEMOGLOBIN 8.3 g/dL (13.0-17.5); LYMPH # 0.5 x10^3/uL (1.0-4.8); LYMPH % 10 % (24-48); MEAN CORPUSCULAR HEMOGLOBIN 32 pg (25-35); MEAN CORPUSCULAR HGB CONC 35 g/dL (31-37); MEAN CORPUSCULAR VOLUME 90 fL (79-100); MONO % 11 % (0-9); NEUT % 72 % (31-73); PLATELET COUNT 123 x10^3/uL (140-400); WHITE BLOOD COUNT 5.6 x10^3/uL (4.0-11.0)
[2017-02-23] MEDS: PIPERACILLIN/TAZOBACTAM 3.375 GM in IV NORMAL SALINE 50ML 50 ML IV SCH ×2 (05:36→14:03)
[2017-02-23 05:38] LABS: CALCIUM 9.3 mg/dL (8.5-10.1); CREATININE 1.4 mg/dL (0.7-1.3); GFR 51.2; POTASSIUM 4.1 mmol/L (3.5-5.1)
[2017-02-23 07:15] VITALS: BP 140/84
--- NOTE | 2017-02-23 09:09 | PDOC ---
PROGRESS NOTES Subjective Subjective c/c - f/u of anemia ROS - no CP Objective Objective Vital Signs Date Time Temp Pulse Resp B/P (MAP) Pulse Ox O2 Delivery O2 Flow Rate FiO2 02/23/17 07:15 97.5 82 20 140/84 (102) 99 Nasal Cannula 2.0 97.5 Intake and Output 02/24/17 07:00 Intake Total 350 ml Balance 350 ml Intake Oral 350 ml Physical Exam General: Alert, Oriented X3 Lungs: Clear to auscultation Neuro: Normal speech Assessment Assessment Assessment/Plan 62 yo male with multiple comorbidities admitted to the hospital for revision of Left ankle external fixation and fusion. He was found to be anemic and we were consulted. Anemia. Most likely this is anemia of chronic disease. It is slightly worsened from his surgical procedure. On 01/01/17 he had a hgb of 9.6. Iron studies, b12 , folic acid, do not reveal any deficiencies. Retic count unremarkable. Given renal insufficiency would also check SPEP and immunofixation. I would transfuse if he becomes symptomatic. Hb better at 8.3 on 02/23/17, monitor cbc. Comment Review of Relevant I have reviewed the following items lauryn (where applicable) has been applied. Labs Laboratory Tests Test 02/21/17 12:13 02/21/17 12:20 02/21/17 17:18 02/21/17 20:32 Glucose (Fingerstick) 167 mg/dL (70-99) 180 mg/dL (70-99) 176 mg/dL (70-99) Reticulocyte Count (auto) 2.4 % (0.5-2.5) Iron Level 22 ug/dL (65-175) Total Iron Binding Capacity 146 ug/dL (250-450) Iron Saturation 15 % (15-34) Ferritin 802 ng/mL (26-388) Vitamin B12 Level 400 pg/mL (247-911) Serum Folate 6.63 ng/ml (3.2-20.0) Test 02/22/17 07:28 02/22/17 10:56 02/22/17 11:00 02/22/17 16:03 Glucose (Fingerstick) 151 mg/dL (70-99) 210 mg/dL (70-99) 124 mg/dL (70-99) White Blood Count 5.1 x10^3/uL (4.0-11.0) Red Blood Count 2.46 x10^6/uL (4.30-5.70) Hemoglobin 7.8 g/dL (13.0-17.5) Hematocrit 22.2 % (39.0-53.0) Mean Corpuscular Volume 90 fL (79-100) Mean Corpuscular Hemoglobin 32 pg (25-35) Mean Corpuscular Hemoglobin Concent 35 g/dL (31-37) Red Cell Distribution Width 16.2 % (11.5-14.5) Platelet Count 114 x10^3/uL (140-400) Neutrophils (%) (Auto) 71 % (31-73) Lymphocytes (%) (Auto) 9 % (24-48) Monocytes (%) (Auto) 11 % (0-9) Eosinophils (%) (Auto) 8 % (0-3) Basophils (%) (Auto) 1 % (0-3) Neutrophils # (Auto) 3.7 x10^3uL (1.8-7.7) Lymphocytes # (Auto) 0.5 x10^3/uL (1.0-4.8) Monocytes # (Auto) 0.6 x10^3/uL (0.0-1.1) Eosinophils # (Auto) 0.4 x10^3/uL (0.0-0.7) Basophils # (Auto) 0.0 x10^3/uL (0.0-0.2) Test 02/22/17 20:39 02/23/17 03:35 02/23/17 07:04 Glucose (Fingerstick) 156 mg/dL (70-99) 117 mg/dL (70-99) White Blood Count 5.6 x10^3/uL (4.0-11.0) Red Blood Count 2.60 x10^6/uL (4.30-5.70) Hemoglobin 8.3 g/dL (13.0-17.5) Hematocrit 23.5 % (39.0-53.0) Mean Corpuscular Volume 90 fL (79-100) Mean Corpuscular Hemoglobin 32 pg (25-35) Mean Corpuscular Hemoglobin Concent 35 g/dL (31-37) Red Cell Distribution Width 16.0 % (11.5-14.5) Platelet Count 123 x10^3/uL (140-400) Neutrophils (%) (Auto) 72 % (31-73) Lymphocytes (%) (Auto) 10 % (24-48) Monocytes (%) (Auto) 11 % (0-9) Eosinophils (%) (Auto) 8 % (0-3) Basophils (%) (Auto) 1 % (0-3) Neutrophils # (Auto) 4.0 x10^3uL (1.8-7.7) Lymphocytes # (Auto) 0.5 x10^3/uL (1.0-4.8) Monocytes # (Auto) 0.6 x10^3/uL (0.0-1.1) Eosinophils # (Auto) 0.4 x10^3/uL (0.0-0.7) Basophils # (Auto) 0.0 x10^3/uL (0.0-0.2) Sodium Level 141 mmol/L (136-145) Potassium Level 4.1 mmol/L (3.5-5.1) Chloride Level 105 mmol/L (98-107) Carbon Dioxide Level 25 mmol/L (21-32) Anion Gap 11 (6-14) Blood Urea Nitrogen 25 mg/dL (8-26) Creatinine 1.4 mg/dL (0.7-1.3) Estimated GFR (Cockcroft-Gault) 51.2 Glucose Level 109 mg/dL (70-99) Calcium Level 9.3 mg/dL (8.5-10.1) Laboratory Tests Test 02/22/17 10:56 02/22/17 11:00 02/22/17 16:03 02/22/17 20:39 Glucose (Fingerstick) 210 mg/dL (70-99) 124 mg/dL (70-99) 156 mg/dL (70-99) White Blood Count 5.1 x10^3/uL (4.0-11.0) Red Blood Count 2.46 x10^6/uL (4.30-5.70) Hemoglobin 7.8 g/dL (13.0-17.5) Hematocrit 22.2 % (39.0-53.0) Mean Corpuscular Volume 90 fL (79-100) Mean Corpuscular Hemoglobin 32 pg (25-35) Mean Corpuscular Hemoglobin Concent 35 g/dL (31-37) Red Cell Distribution Width 16.2 % (11.5-14.5) Platelet Count 114 x10^3/uL (140-400) Neutrophils (%) (Auto) 71 % (31-73) Lymphocytes (%) (Auto) 9 % (24-48) Monocytes (%) (Auto) 11 % (0-9) Eosinophils (%) (Auto) 8 % (0-3) Basophils (%) (Auto) 1 % (0-3) Neutrophils # (Auto) 3.7 x10^3uL (1.8-7.7) Lymphocytes # (Auto) 0.5 x10^3/uL (1.0-4.8) Monocytes # (Auto) 0.6 x10^3/uL (0.0-1.1) Eosinophils # (Auto) 0.4 x10^3/uL (0.0-0.7) Basophils # (Auto) 0.0 x10^3/uL (0.0-0.2) Test 02/23/17 03:35 02/23/17 07:04 White Blood Count 5.6 x10^3/uL (4.0-11.0) Red Blood Count 2.60 x10^6/uL (4.30-5.70) Hemoglobin 8.3 g/dL (13.0-17.5) Hematocrit 23.5 % (39.0-53.0) Mean Corpuscular Volume 90 fL (79-100) Mean Corpuscular Hemoglobin 32 pg (25-35) Mean Corpuscular Hemoglobin Concent 35 g/dL (31-37) Red Cell Distribution Width 16.0 % (11.5-14.5) Platelet Count 123 x10^3/uL (140-400) Neutrophils (%) (Auto) 72 % (31-73) Lymphocytes (%) (Auto) 10 % (24-48) Monocytes (%) (Auto) 11 % (0-9) Eosinophils (%) (Auto) 8 % (0-3) Basophils (%) (Auto) 1 % (0-3) Neutrophils # (Auto) 4.0 x10^3uL (1.8-7.7) Lymphocytes # (Auto) 0.5 x10^3/uL (1.0-4.8) Monocytes # (Auto) 0.6 x10^3/uL (0.0-1.1) Eosinophils # (Auto) 0.4 x10^3/uL (0.0-0.7) Basophils # (Auto) 0.0 x10^3/uL (0.0-0.2) Sodium Level 141 mmol/L (136-145) Potassium Level 4.1 mmol/L (3.5-5.1) Chloride Level 105 mmol/L (98-107) Carbon Dioxide Level 25 mmol/L (21-32) Anion Gap 11 (6-14) Blood Urea Nitrogen 25 mg/dL (8-26) Creatinine 1.4 mg/dL (0.7-1.3) Estimated GFR (Cockcroft-Gault) 51.2 Glucose Level 109 mg/dL (70-99) Calcium Level 9.3 mg/dL (8.5-10.1) Glucose (Fingerstick) 117 mg/dL (70-99) Medications Current Medications Midazolam HCl (Versed) 2 mg PRN 1X PRN IV PRIOR TO PROCEDURE; Start 02/19/17 at 12:15; Stop 02/20/17 at 12:14; Status DC Fentanyl Citrate (Fentanyl 2ml Vial) 25 mcg PRN Q5MIN PRN IV X 2 DOSES FOR PAIN ; Start 02/19/17 at 12:15; Stop 02/20/17 at 12:14; Status DC Fentanyl Citrate (Fentanyl 2ml Vial) 50 mcg PRN Q5MIN PRN IV X 2 DOSES FOR PAIN ; Start 02/19/17 at 12:15; Stop 02/20/17 at 12:14; Status DC Ringer's Solution 1,000 ml @ 125 mls/hr Q8H IV Last administered on 02/19/17t 12:09; Start 02/19/17 at 12:07; Stop 02/20/17 at 00:06; Status DC Lidocaine HCl 2 ml 1X PRN PRN ID IV START; Start 02/19/17 at 12:15; Stop at 12:14; Status DC Fentanyl Citrate (Fentanyl 5ml Vial) 250 mcg STK-MED ONCE .ROUTE ; Start at 13:02; Stop 02/19/17 at 13:03; Status DC Rocuronium [place] (Zemuron) 100 mg STK-MED ONCE .ROUTE ; Start 02/19/17 at 13:02 ; Stop 02/19/17 at 13:03; Status DC Sevoflurane (Ultane) 90 ml STK-MED ONCE IH ; Start 02/19/17 at 13:04; Stop at 13:05; Status DC Propofol 20 ml @ As Directed STK-MED ONCE IV ; Start 02/19/17 at 13:04; Stop 02/19 at 13:05; Status DC Dexamethasone Sodium Phosphate (Decadron) 20 mg STK-MED ONCE .ROUTE ; Start 02/19 at 13:04; Stop 02/19/17 at 13:05; Status DC Ondansetron HCl (Zofran) 4 mg STK-MED ONCE .ROUTE ; Start 02/19/17 at 13:04; Stop 02/19/17 at 13:05; Status DC Lidocaine HCl (Lidocaine Pf 2% Vial) 5 ml STK-MED ONCE .ROUTE ; Start 02/19/17 at 13:05; Stop 02/19/17 at 13:06; Status DC Cefazolin Sodium 50 ml @ As Directed STK-MED ONCE IV ; Start 02/19/17 at 13:50; Stop 02/19/17 at 13:51; Status DC Neostigmine Methylsulfate (Bloxiverz) 10 mg STK-MED ONCE .ROUTE ; Start 02/19/17 at 14:50; Stop 02/19/17 at 14:51; Status DC Glycopyrrolate (Robinul) 1 mg STK-MED ONCE .ROUTE ; Start 02/19/17 at 14:50; Stop 02/19/17 at 14:51; Status DC Neostigmine Methylsulfate (Bloxiverz) 10 mg STK-MED ONCE .ROUTE ; Start 02/19/17 at 14:51; Stop 02/19/17 at 14:52; Status DC Propofol 20 ml @ As Directed STK-MED ONCE IV ; Start 02/19/17 at 14:57; Stop 02/19 at 14:58; Status DC Phenylephrine HCl 1 mg STK-MED ONCE IV ; Start 02/19/17 at 15:46; Stop 02/19/17 at 15:47; Status DC Ondansetron HCl (Zofran) 4 mg PRN Q6HRS PRN IV NAUSEA/VOMITING; Start 02/19/17 at 18:00; Stop 02/19/17 at 20:00; Status DC Fentanyl Citrate (Fentanyl 2ml Vial) 25 mcg PRN Q5MIN PRN IV MILD PAIN; Start 02/19/17 at 18:00; Stop 02/19/17 at 18:06; Status DC Fentanyl Citrate (Fentanyl 2ml Vial) 50 mcg PRN Q5MIN PRN IV MODERATE PAIN; Start 02/19/17 at 18:00; Stop 02/19/17 at 18:05; Status DC Ringer's Solution 1,000 ml @ 30 mls/hr Q24H IV ; Start 02/19/17 at 17:58; Stop 02/20/17 at 05:57; Status DC Lidocaine HCl 2 ml PRN 1X PRN ID PRIOR TO IV START; Start 02/19/17 at 18:00; Stop 02/19/17 at 18:05; Status DC Prochlorperazine Edisylate (Compazine) 5 mg PACU PRN PRN IV NAUSEA, MRX1; Start 02/19/17 at 18:00; Stop 02/19/17 at 20:00; Status DC Oxycodone HCl (Roxicodone) 5 mg PRN Q3HRS PRN PO PAIN Last administered on 02/21t 22:27; Start 02/19/17 at 19:00 Fentanyl Citrate (Fentanyl 2ml Vial) 25 mcg PRN Q1HR PRN IV PAIN; Start at 19:00 Senna/Docusate Sodium (Senna Plus) 1 tab DAILY PO Last administered on t 10:47; Start 02/20/17 at 09:00 Polyethylene Glycol (miraLAX PACKET) 17 gm PRN DAILY PRN PO CONSTIPATION; Start 02/19/17 at 19:00 Ondansetron HCl (Zofran) 4 mg PRN Q4HRS PRN IV NAUSEA/VOMITING; Start 02/19/17 at 19:00 Magnesium Hydroxide (Milk Of Magnesia) 2,400 mg 1X PRN PRN PO CONSTIPATION; Start 02/20/17 at 06:00; Stop 02/21/17 at 05:59; Status DC Bisacodyl (Dulcolax Supp) 10 mg 1X PRN PRN ME CONSTIPATION; Start 02/20/17 at 16 :00; Stop 02/21/17 at 15:59; Status DC Acetaminophen/ Hydrocodone Bitart (Lortab 7.5/325) 1 tab PRN Q4HRS PRN PO PAIN Last administered on 02/20/17 09:55; Start 02/19/17 at 19:00 Acetaminophen/ Hydrocodone Bitart (Lortab 7.5/325) 2 tab PRN Q4HRS PRN PO PAIN Last administered on 02/22/17 20:35; Start 02/19/17 at 19:00 Dextrose (Dextrose 50%-Water Syringe) 12.5 gm PRN Q15MIN PRN IV SEE COMMENTS; Start 02/19/17 at 19:00 Cefazolin Sodium 3 gm/Sodium Chloride 100 ml @ 200 mls/hr Q6H IV Last administered on 02/20/17 06:30; Start 02/19/17 at 19:00; Stop 02/20/17 at 07:29; Status DC Aspirin (Omkar Aspirin) 325 mg DAILY PO Last administered on 02/22/17 10:47; Start 02/20/17 at 09:00 Atorvastatin Calcium (Lipitor) 20 mg QHS PO Last administered on 02/22/17 20: 35; Start 02/19/17 at 21:00 Celecoxib (CeleBREX) 200 mg BID PO Last administered on 02/22/17 20:35; Start 02/19/17 at 21:00 Vitamin D (Vitamin D3) 1,000 unit DAILY PO Last administered on 02/22/17 10:48 ; Start 02/20/17 at 09:00 Clopidogrel Bisulfate (Plavix) 75 mg DAILY PO Last administered on 02/22/17 10 :47; Start 02/20/17 at 09:00 Docusate Sodium (Colace) 100 mg DAILY PO Last administered on 02/22/17 10:48; Start 02/20/17 at 09:00 Fentanyl (Duragesic 75mcg/ Hr Patch) 1 patch Q3DAYS TD Last administered on 02/20 20:18; Start 02/20/17 at 20:00 Acetaminophen/ Hydrocodone Bitart (Lortab 7.5/325) 1 tab PRN Q4HRS PRN PO MODERATE PAIN; Start 02/19/17 at 19:00; Stop 02/19/17 at 19:27; Status DC Losartan Potassium (Cozaar) 50 mg DAILY PO Last administered on 02/22/17 10:47 ; Start 02/20/17 at 09:00 Metformin HCl (Glucophage) 500 mg BIDAFTMEAL PO Last administered on 02/22/17 18:47; Start 02/19/17 at 21:00 Pantoprazole Sodium (Protonix) 40 mg DAILYAC PO Last administered on 02/22/17 10:46; Start 02/20/17 at 07:30 Tamsulosin HCl (Flomax) 0.4 mg BID PO Last administered on 02/22/17 20:36; Start 02/19/17 at 21:00 Tamsulosin HCl (Flomax) 0.4 mg HS PO ; Start 02/19/17 at 21:00; Stop 02/19/17 at 21:00; Status DC Citalopram Hydrobromide (CeleXA) 40 mg DAILY PO Last administered on 02/22/17 10:48; Start 02/20/17 at 09:00 Gabapentin (Neurontin) 300 mg BID PO Last administered on 02/22/17 20:36; Start 02/19/17 at 21:00 Insulin Aspart (NovoLOG) 15 units TIDAC SQ Last administered on 02/22/17 18:52 ; Start 02/20/17 at 07:30 Insulin Detemir (Levemir) 22 units QHS SQ Last administered on 02/22/17 20:42 ; Start 02/19/17 at 21:00 Non-Formulary Medication 3.375 gm Q6HRS IV ; Start 02/20/17 at 00:00; Stop at 00:00; Status DC Alteplase, Recombinant (Cathflo) 2 mg 1X ONCE INT CAT Last administered on 02/19 23:32; Start 02/19/17 at 23:30; Stop 02/19/17 at 23:31; Status DC Piperacillin Sod/ Tazobactam Sod (Zosyn Per Pharmacy) 1 each PRN DAILY PRN MC SEE COMMENTS; Start 02/20/17 at 15:30 Piperacillin Sod/ Tazobactam Sod 3.375 gm/Sodium Chloride 50 ml @ 100 mls/hr Q6HRS IV Last administered on 02/23/17 05:36; Start 02/20/17 at 15:30 Albuterol/ Ipratropium (Duoneb) 3 ml RTQID NEB ; Start 02/22/17 at 08:00; Stop 02/22/17 at 08:00; Status DC Albuterol Sulfate (Ventolin Neb Soln) 2.5 mg PRN Q2HR PRN NEB SHORTNESS OF BREATH Last administered on 02/22/17 22:49; Start 02/22/17 at 00:45 Cefazolin Sodium/ Dextrose (Ancef 2gm Premix) 2 gm STK-MED ONCE IV ; Start at 14:00; Stop 02/22/17 at 12:48; Status DC Active Scripts Active Hydrocodone-Apap 7.5-325 (Hydrocodone Bit/Acetaminophen) 1 Each Tablet 1 Tab PO PRN Q4HRS PRN Reported Tamsulosin Hcl 0.4 Mg Cap.er.24h 1 Cap PO DAILY Zosyn 3.375 Gm Galaxy Bag (Nlklmestyqsu-Rpxr-Jaqpaysh,Iso) 3.375 Gm/50 Ml Froz.piggy 3.375 Gm IV Q6HRS Novolog (Insulin Aspart) 100 Unit/1 Ml Cartridge 15 Unit SQ TIDAC Pantoprazole Sodium 40 Mg Tablet.dr 40 Mg PO DAILY Levemir (Insulin Detemir) 100 Unit/1 Ml Vial 22 Unit SQ HS FENTANYL 75mcg/hr (Fentanyl) 1 Each Patch.td72 1 Patch TP Q3DAYS Colace (Docusate Sodium) 100 Mg Capsule 1 Cap PO DAILY Aspirin 325 Mg Tablet 1 Tab PO DAILY Vitamin D3 (Cholecalciferol (Vitamin D3)) 1,000 Unit Tablet 1 Tab PO DAILY Losartan Potassium 50 Mg Tablet 50 Mg PO DAILY Gabapentin 300 Mg Capsule 300 Mg PO BID Celebrex (Celecoxib) 200 Mg Capsule 200 Mg PO BID 30 Days Citalopram Hbr (Citalopram Hydrobromide) 40 Mg Tablet 40 Mg PO DAILY Lipitor (Atorvastatin Calcium) 20 Mg Tablet 20 Mg PO QHS Flomax (Tamsulosin Hcl) 0.4 Mg Cap.er.24h 0.4 Mg PO HS Metformin Hcl 500 Mg Tablet 500 Mg PO BID Plavix (Clopidogrel Bisulfate) 75 Mg Tablet 75 Mg PO DAILY Vitals/I & O Vital Sign - Last 24 Hours 02/22/17 02/22/17 02/22/17 02/22/17 10:47 11:00 15:00 19:00 Temp 97.9 97.9 98.1 97.9 97.9 98.1 Pulse 85 88 84 93 Resp 20 20 18 B/P (MAP) 153/88 134/80 (98) 145/82 (103) 146/71 (96) Pulse Ox 96 95 94 O2 Delivery Room Air Room Air Room Air 02/22/17 02/22/17 02/22/17 02/22/17 20:00 20:35 21:35 22:49 Pulse Ox 93 O2 Delivery Room Air Room Air Room Air Room Air 02/22/17 02/23/17 02/23/17 23:00 03:00 07:15 Temp 97.5 97.5 97.5 97.5 97.5 97.5 Pulse 90 88 82 Resp 18 18 20 B/P (MAP) 124/69 (87) 134/73 (93) 140/84 (102) Pulse Ox 98 98 99 O2 Delivery Room Air Room Air Nasal Cannula O2 Flow Rate 2.0 Intake and Output 02/23/17 02/23/17 02/24/17 15:00 23:00 07:00 Intake Total 350 ml Balance 350 ml KAYCE MCKEON MD Feb 23, 2017 09:09
[2017-02-23] MEDS: DOCUSATE SODIUM 100 MG CAPSULE. PO SCH (09:36)
[2017-02-23] MEDS: LOSARTAN POTASSIUM 50 MG TABLET. PO SCH (09:36)
[2017-02-23] MEDS: CLOPIDOGREL BISULFATE 75 MG TABLET PO SCH (09:36)
[2017-02-23] MEDS: CHOLECALCIFEROL (VITAMIN D3) 1,000 UNIT TABLET PO SCH (09:36)
[2017-02-23] MEDS: CELECOXIB 200 MG CAPSULE. PO SCH (09:36)
[2017-02-23] MEDS: ASPIRIN 325 MG TABLET PO SCH (09:37)
[2017-02-23] MEDS: TAMSULOSIN 0.4 MG CAP.ER.24H. PO SCH (09:37)
[2017-02-23] MEDS: PANTOPRAZOLE 40 MG TABLET.DR. PO SCH (09:37)
[2017-02-23] MEDS: CITALOPRAM 20 MG TABLET. PO SCH (09:37)
[2017-02-23] MEDS: GABAPENTIN 300 MG CAPSULE. PO SCH (09:37)
[2017-02-23] MEDS: metFORMIN 500 MG TABLET PO SCH (09:37)
[2017-02-23] MEDS: INSULIN ASPART 300 UNITS/3 ML INSULN.PEN SQ SCH ×2 (09:42→14:08)
[2017-02-23] MEDS: fentaNYL 75MCG/HR PATCH 1 PATCH PATCH.TD72 TD SCH (09:44)
--- NOTE | 2017-02-23 10:01 | PDOC ---
Infectious Disease Note Subjective Subjective Doing ok. States Ex-fix a little loose and Dr. Galvin returning later to tighten Urinating well ROS ROS GEN: Denies fevers, chills, sweats HEENT: Denies blurred vision, sore throat CV: Denies chest pain RESP: Denies shortness of air, cough GI: Denies n/v/d NEURO: Denies confusion, dizziness MSK: Denies weakness, joint pain/swelling Vital Sign Vital Signs Vital Signs Date Time Temp Pulse Resp B/P (MAP) Pulse Ox O2 Delivery O2 Flow Rate FiO2 02/23/17 09:44 18 97 Room Air 02/23/17 09:36 82 140/84 02/23/17 07:15 97.5 2.0 97.5 Physical Exam PHYSICAL EXAM GENERAL: NAD, Alert. On side of bed HEENT: PERRL, OC/OP- clear NECK: Supple, no JVD, no LN LUNGS: Clear HEART: S1S2, no gallop, no murmur ABD: Soft, NT, no organomegaly, no rebound, obese EXT: RLE with boot and dressed. LLE dressed with ex-fix in place BUTTON TUFTER: Alert, 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, no focal neurologic deficit SKIN: No rash IV: PICC LUE clean Labs Lab Laboratory Tests Test 02/22/17 10:56 02/22/17 11:00 02/22/17 16:03 02/22/17 20:39 Glucose (Fingerstick) 210 mg/dL (70-99) 124 mg/dL (70-99) 156 mg/dL (70-99) White Blood Count 5.1 x10^3/uL (4.0-11.0) Red Blood Count 2.46 x10^6/uL (4.30-5.70) Hemoglobin 7.8 g/dL (13.0-17.5) Hematocrit 22.2 % (39.0-53.0) Mean Corpuscular Volume 90 fL (79-100) Mean Corpuscular Hemoglobin 32 pg (25-35) Mean Corpuscular Hemoglobin Concent 35 g/dL (31-37) Red Cell Distribution Width 16.2 % (11.5-14.5) Platelet Count 114 x10^3/uL (140-400) Neutrophils (%) (Auto) 71 % (31-73) Lymphocytes (%) (Auto) 9 % (24-48) Monocytes (%) (Auto) 11 % (0-9) Eosinophils (%) (Auto) 8 % (0-3) Basophils (%) (Auto) 1 % (0-3) Neutrophils # (Auto) 3.7 x10^3uL (1.8-7.7) Lymphocytes # (Auto) 0.5 x10^3/uL (1.0-4.8) Monocytes # (Auto) 0.6 x10^3/uL (0.0-1.1) Eosinophils # (Auto) 0.4 x10^3/uL (0.0-0.7) Basophils # (Auto) 0.0 x10^3/uL (0.0-0.2) Test 02/23/17 03:35 02/23/17 07:04 White Blood Count 5.6 x10^3/uL (4.0-11.0) Red Blood Count 2.60 x10^6/uL (4.30-5.70) Hemoglobin 8.3 g/dL (13.0-17.5) Hematocrit 23.5 % (39.0-53.0) Mean Corpuscular Volume 90 fL (79-100) Mean Corpuscular Hemoglobin 32 pg (25-35) Mean Corpuscular Hemoglobin Concent 35 g/dL (31-37) Red Cell Distribution Width 16.0 % (11.5-14.5) Platelet Count 123 x10^3/uL (140-400) Neutrophils (%) (Auto) 72 % (31-73) Lymphocytes (%) (Auto) 10 % (24-48) Monocytes (%) (Auto) 11 % (0-9) Eosinophils (%) (Auto) 8 % (0-3) Basophils (%) (Auto) 1 % (0-3) Neutrophils # (Auto) 4.0 x10^3uL (1.8-7.7) Lymphocytes # (Auto) 0.5 x10^3/uL (1.0-4.8) Monocytes # (Auto) 0.6 x10^3/uL (0.0-1.1) Eosinophils # (Auto) 0.4 x10^3/uL (0.0-0.7) Basophils # (Auto) 0.0 x10^3/uL (0.0-0.2) Sodium Level 141 mmol/L (136-145) Potassium Level 4.1 mmol/L (3.5-5.1) Chloride Level 105 mmol/L (98-107) Carbon Dioxide Level 25 mmol/L (21-32) Anion Gap 11 (6-14) Blood Urea Nitrogen 25 mg/dL (8-26) Creatinine 1.4 mg/dL (0.7-1.3) Estimated GFR (Cockcroft-Gault) 51.2 Glucose Level 109 mg/dL (70-99) Calcium Level 9.3 mg/dL (8.5-10.1) Glucose (Fingerstick) 117 mg/dL (70-99) Objective Assessment Anemia - S/p PRBCs Recent history left ankle abscess s/p I and D, 02/02, with growth of Proteus ( R tetra), PSA ( R ticarcillin), E. faecalis-PCNS & MSSA on culture. s/p left ankle fracture fixation and fusion with hindfoot nail and supplementary application of external fixator, 02/19 following Bi malleolar ankle fracture s/p ext fixation, 02/02 Right calcaneal wound -h/o gangrenous ulcer of right heel. s/p excisional debridement skin and subcutaneous tissue, 01/05. No intra-op cultures were obtained -MRI from 01/02 showed chronic neuropathic arthropathy changes with hardware in place; no definite evidence of acute osteo noted but could not r/o with elevated ESR and WBC at the time. Diabetes with neuropathy CKD. Recently off HD Anemia s/p PRBCs Morbid obesity Plan Plan of Care Ok to transfer D/w Dr. Galvin 02/22. Wound is clean and no gross signs of intraop infection but uncertain etiology of loosening of hardware could be trauma Will cont Zosyn through 03/04 Will need CBC/Cr and Sed rate Q Wednesday F/u ID office 03/04 RADHA SILVA MD Feb 23, 2017 10:01
[2017-02-23 11:12] VITALS: BP 144/84
--- NOTE | 2017-02-23 12:49 | PDOC ---
PROGRESS NOTES Chief Complaint Chief Complaint Left lower leg fracture left ankle fracture with external hardware s/p OR sx 02/20/17 Morbid obesity, BMI 47 DM2, insulin req Prior cellulitis and wound vac for fasciitis BRYCE on CKD, recent hemodialysis a month ago, improved UO stable - off HD Anemia, normocytic of CKD HTN, Depression, dyslipidemia History of Present Illness History of Present Illness Pt sitting up at side of bed when we entered room. Talkative and anxious to leave. Vitals Vitals Vital Signs Date Time Temp Pulse Resp B/P (MAP) Pulse Ox O2 Delivery O2 Flow Rate FiO2 02/23/17 11:12 97.5 80 18 144/84 (104) 97 Room Air 97.5 02/23/17 07:15 2.0 Physical Exam General: Alert, Oriented X3 Heart: Normal S1, Normal S2 Lungs: Clear, Other (No acute respiratory distress noted) Abdomen: Normal bowel sounds, Soft, Other Extremities: No clubbing, Other (Left ankle s/p surger. Hardware in place) Skin: No rashes, No breakdown, Other Labs LABS Laboratory Tests Test 02/22/17 16:03 02/22/17 20:39 02/23/17 03:35 02/23/17 07:04 Glucose (Fingerstick) 124 mg/dL (70-99) 156 mg/dL (70-99) 117 mg/dL (70-99) White Blood Count 5.6 x10^3/uL (4.0-11.0) Red Blood Count 2.60 x10^6/uL (4.30-5.70) Hemoglobin 8.3 g/dL (13.0-17.5) Hematocrit 23.5 % (39.0-53.0) Mean Corpuscular Volume 90 fL (79-100) Mean Corpuscular Hemoglobin 32 pg (25-35) Mean Corpuscular Hemoglobin Concent 35 g/dL (31-37) Red Cell Distribution Width 16.0 % (11.5-14.5) Platelet Count 123 x10^3/uL (140-400) Neutrophils (%) (Auto) 72 % (31-73) Lymphocytes (%) (Auto) 10 % (24-48) Monocytes (%) (Auto) 11 % (0-9) Eosinophils (%) (Auto) 8 % (0-3) Basophils (%) (Auto) 1 % (0-3) Neutrophils # (Auto) 4.0 x10^3uL (1.8-7.7) Lymphocytes # (Auto) 0.5 x10^3/uL (1.0-4.8) Monocytes # (Auto) 0.6 x10^3/uL (0.0-1.1) Eosinophils # (Auto) 0.4 x10^3/uL (0.0-0.7) Basophils # (Auto) 0.0 x10^3/uL (0.0-0.2) Sodium Level 141 mmol/L (136-145) Potassium Level 4.1 mmol/L (3.5-5.1) Chloride Level 105 mmol/L (98-107) Carbon Dioxide Level 25 mmol/L (21-32) Anion Gap 11 (6-14) Blood Urea Nitrogen 25 mg/dL (8-26) Creatinine 1.4 mg/dL (0.7-1.3) Estimated GFR (Cockcroft-Gault) 51.2 Glucose Level 109 mg/dL (70-99) Calcium Level 9.3 mg/dL (8.5-10.1) Test 02/23/17 11:23 Glucose (Fingerstick) 158 mg/dL (70-99) Review of Systems Review of Systems Anxious to leave Positive demeanor Assessment and Plan Assessmemt and Plan Left lower leg fracture: continue to monitor wound Morbid obesity, BMI 47: discuss wt loss DM2, insulin req: continue meds BRYCE on CKD, recent hemodialysis a month ago, improved UO stable - off HD: continue to monitor. Anemia, normocytic of CKD: PRN transfusions HTN: continue losartan & other meds Depression: continue celexa Probable d/c SNU when stable & when ok w/ surgery Problems: Comment Review of Relevant I have reviewed the following items lauryn (where applicable) has been applied. Labs Laboratory Tests Test 02/21/17 17:18 02/21/17 20:32 02/22/17 07:28 02/22/17 10:56 Glucose (Fingerstick) 180 mg/dL (70-99) 176 mg/dL (70-99) 151 mg/dL (70-99) 210 mg/dL (70-99) Test 02/22/17 11:00 02/22/17 16:03 02/22/17 20:39 02/23/17 03:35 White Blood Count 5.1 x10^3/uL (4.0-11.0) 5.6 x10^3/uL (4.0-11.0) Red Blood Count 2.46 x10^6/uL (4.30-5.70) 2.60 x10^6/uL (4.30-5.70) Hemoglobin 7.8 g/dL (13.0-17.5) 8.3 g/dL (13.0-17.5) Hematocrit 22.2 % (39.0-53.0) 23.5 % (39.0-53.0) Mean Corpuscular Volume 90 fL (79-100) 90 fL (79-100) Mean Corpuscular Hemoglobin 32 pg (25-35) 32 pg (25-35) Mean Corpuscular Hemoglobin Concent 35 g/dL (31-37) 35 g/dL (31-37) Red Cell Distribution Width 16.2 % (11.5-14.5) 16.0 % (11.5-14.5) Platelet Count 114 x10^3/uL (140-400) 123 x10^3/uL (140-400) Neutrophils (%) (Auto) 71 % (31-73) 72 % (31-73) Lymphocytes (%) (Auto) 9 % (24-48) 10 % (24-48) Monocytes (%) (Auto) 11 % (0-9) 11 % (0-9) Eosinophils (%) (Auto) 8 % (0-3) 8 % (0-3) Basophils (%) (Auto) 1 % (0-3) 1 % (0-3) Neutrophils # (Auto) 3.7 x10^3uL (1.8-7.7) 4.0 x10^3uL (1.8-7.7) Lymphocytes # (Auto) 0.5 x10^3/uL (1.0-4.8) 0.5 x10^3/uL (1.0-4.8) Monocytes # (Auto) 0.6 x10^3/uL (0.0-1.1) 0.6 x10^3/uL (0.0-1.1) Eosinophils # (Auto) 0.4 x10^3/uL (0.0-0.7) 0.4 x10^3/uL (0.0-0.7) Basophils # (Auto) 0.0 x10^3/uL (0.0-0.2) 0.0 x10^3/uL (0.0-0.2) Glucose (Fingerstick) 124 mg/dL (70-99) 156 mg/dL (70-99) Sodium Level 141 mmol/L (136-145) Potassium Level 4.1 mmol/L (3.5-5.1) Chloride Level 105 mmol/L (98-107) Carbon Dioxide Level 25 mmol/L (21-32) Anion Gap 11 (6-14) Blood Urea Nitrogen 25 mg/dL (8-26) Creatinine 1.4 mg/dL (0.7-1.3) Estimated GFR (Cockcroft-Gault) 51.2 Glucose Level 109 mg/dL (70-99) Calcium Level 9.3 mg/dL (8.5-10.1) Test 02/23/17 07:04 02/23/17 11:23 Glucose (Fingerstick) 117 mg/dL (70-99) 158 mg/dL (70-99) Laboratory Tests Test 02/22/17 16:03 02/22/17 20:39 02/23/17 03:35 02/23/17 07:04 Glucose (Fingerstick) 124 mg/dL (70-99) 156 mg/dL (70-99) 117 mg/dL (70-99) White Blood Count 5.6 x10^3/uL (4.0-11.0) Red Blood Count 2.60 x10^6/uL (4.30-5.70) Hemoglobin 8.3 g/dL (13.0-17.5) Hematocrit 23.5 % (39.0-53.0) Mean Corpuscular Volume 90 fL (79-100) Mean Corpuscular Hemoglobin 32 pg (25-35) Mean Corpuscular Hemoglobin Concent 35 g/dL (31-37) Red Cell Distribution Width 16.0 % (11.5-14.5) Platelet Count 123 x10^3/uL (140-400) Neutrophils (%) (Auto) 72 % (31-73) Lymphocytes (%) (Auto) 10 % (24-48) Monocytes (%) (Auto) 11 % (0-9) Eosinophils (%) (Auto) 8 % (0-3) Basophils (%) (Auto) 1 % (0-3) Neutrophils # (Auto) 4.0 x10^3uL (1.8-7.7) Lymphocytes # (Auto) 0.5 x10^3/uL (1.0-4.8) Monocytes # (Auto) 0.6 x10^3/uL (0.0-1.1) Eosinophils # (Auto) 0.4 x10^3/uL (0.0-0.7) Basophils # (Auto) 0.0 x10^3/uL (0.0-0.2) Sodium Level 141 mmol/L (136-145) Potassium Level 4.1 mmol/L (3.5-5.1) Chloride Level 105 mmol/L (98-107) Carbon Dioxide Level 25 mmol/L (21-32) Anion Gap 11 (6-14) Blood Urea Nitrogen 25 mg/dL (8-26) Creatinine 1.4 mg/dL (0.7-1.3) Estimated GFR (Cockcroft-Gault) 51.2 Glucose Level 109 mg/dL (70-99) Calcium Level 9.3 mg/dL (8.5-10.1) Test 02/23/17 11:23 Glucose (Fingerstick) 158 mg/dL (70-99) Medications Current Medications Midazolam HCl (Versed) 2 mg PRN 1X PRN IV PRIOR TO PROCEDURE; Start 02/19/17 at 12:15; Stop 02/20/17 at 12:14; Status DC Fentanyl Citrate (Fentanyl 2ml Vial) 25 mcg PRN Q5MIN PRN IV X 2 DOSES FOR PAIN ; Start 02/19/17 at 12:15; Stop 02/20/17 at 12:14; Status DC Fentanyl Citrate (Fentanyl 2ml Vial) 50 mcg PRN Q5MIN PRN IV X 2 DOSES FOR PAIN ; Start 02/19/17 at 12:15; Stop 02/20/17 at 12:14; Status DC Ringer's Solution 1,000 ml @ 125 mls/hr Q8H IV Last administered on 02/19/17t 12:09; Start 02/19/17 at 12:07; Stop 02/20/17 at 00:06; Status DC Lidocaine HCl 2 ml 1X PRN PRN ID IV START; Start 02/19/17 at 12:15; Stop at 12:14; Status DC Fentanyl Citrate (Fentanyl 5ml Vial) 250 mcg STK-MED ONCE .ROUTE ; Start at 13:02; Stop 02/19/17 at 13:03; Status DC Rocuronium Emma (Zemuron) 100 mg STK-MED ONCE .ROUTE ; Start 02/19/17 at 13:02 ; Stop 02/19/17 at 13:03; Status DC Sevoflurane (Ultane) 90 ml STK-MED ONCE IH ; Start 02/19/17 at 13:04; Stop at 13:05; Status DC Propofol 20 ml @ As Directed STK-MED ONCE IV ; Start 02/19/17 at 13:04; Stop 02/19 at 13:05; Status DC Dexamethasone Sodium Phosphate (Decadron) 20 mg STK-MED ONCE .ROUTE ; Start 02/19 at 13:04; Stop 02/19/17 at 13:05; Status DC Ondansetron HCl (Zofran) 4 mg STK-MED ONCE .ROUTE ; Start 02/19/17 at 13:04; Stop 02/19/17 at 13:05; Status DC Lidocaine HCl (Lidocaine Pf 2% Vial) 5 ml STK-MED ONCE .ROUTE ; Start 02/19/17 at 13:05; Stop 02/19/17 at 13:06; Status DC Cefazolin Sodium 50 ml @ As Directed STK-MED ONCE IV ; Start 02/19/17 at 13:50; Stop 02/19/17 at 13:51; Status DC Neostigmine Methylsulfate (Bloxiverz) 10 mg STK-MED ONCE .ROUTE ; Start 02/19/17 at 14:50; Stop 02/19/17 at 14:51; Status DC Glycopyrrolate (Robinul) 1 mg STK-MED ONCE .ROUTE ; Start 02/19/17 at 14:50; Stop 02/19/17 at 14:51; Status DC Neostigmine Methylsulfate (Bloxiverz) 10 mg STK-MED ONCE .ROUTE ; Start 02/19/17 at 14:51; Stop 02/19/17 at 14:52; Status DC Propofol 20 ml @ As Directed STK-MED ONCE IV ; Start 02/19/17 at 14:57; Stop 02/19 at 14:58; Status DC Phenylephrine HCl 1 mg STK-MED ONCE IV ; Start 02/19/17 at 15:46; Stop 02/19/17 at 15:47; Status DC Ondansetron HCl (Zofran) 4 mg PRN Q6HRS PRN IV NAUSEA/VOMITING; Start 02/19/17 at 18:00; Stop 02/19/17 at 20:00; Status DC Fentanyl Citrate (Fentanyl 2ml Vial) 25 mcg PRN Q5MIN PRN IV MILD PAIN; Start 02/19/17 at 18:00; Stop 02/19/17 at 18:06; Status DC Fentanyl Citrate (Fentanyl 2ml Vial) 50 mcg PRN Q5MIN PRN IV MODERATE PAIN; Start 02/19/17 at 18:00; Stop 02/19/17 at 18:05; Status DC Ringer's Solution 1,000 ml @ 30 mls/hr Q24H IV ; Start 02/19/17 at 17:58; Stop 02/20/17 at 05:57; Status DC Lidocaine HCl 2 ml PRN 1X PRN ID PRIOR TO IV START; Start 02/19/17 at 18:00; Stop 02/19/17 at 18:05; Status DC Prochlorperazine Edisylate (Compazine) 5 mg PACU PRN PRN IV NAUSEA, MRX1; Start 02/19/17 at 18:00; Stop 02/19/17 at 20:00; Status DC Oxycodone HCl (Roxicodone) 5 mg PRN Q3HRS PRN PO PAIN Last administered on 02/21t 22:27; Start 02/19/17 at 19:00 Fentanyl Citrate (Fentanyl 2ml Vial) 25 mcg PRN Q1HR PRN IV PAIN; Start at 19:00 Senna/Docusate Sodium (Senna Plus) 1 tab DAILY PO Last administered on t 10:47; Start 02/20/17 at 09:00 Polyethylene Glycol (miraLAX PACKET) 17 gm PRN DAILY PRN PO CONSTIPATION; Start 02/19/17 at 19:00 Ondansetron HCl (Zofran) 4 mg PRN Q4HRS PRN IV NAUSEA/VOMITING; Start 02/19/17 at 19:00 Magnesium Hydroxide (Milk Of Magnesia) 2,400 mg 1X PRN PRN PO CONSTIPATION; Start 02/20/17 at 06:00; Stop 02/21/17 at 05:59; Status DC Bisacodyl (Dulcolax Supp) 10 mg 1X PRN PRN MD CONSTIPATION; Start 02/20/17 at 16 :00; Stop 02/21/17 at 15:59; Status DC Acetaminophen/ Hydrocodone Bitart (Lortab 7.5/325) 1 tab PRN Q4HRS PRN PO PAIN Last administered on 02/20/17 09:55; Start 02/19/17 at 19:00 Acetaminophen/ Hydrocodone Bitart (Lortab 7.5/325) 2 tab PRN Q4HRS PRN PO PAIN Last administered on 02/22/17 20:35; Start 02/19/17 at 19:00 Dextrose (Dextrose 50%-Water Syringe) 12.5 gm PRN Q15MIN PRN IV SEE COMMENTS; Start 02/19/17 at 19:00 Cefazolin Sodium 3 gm/Sodium Chloride 100 ml @ 200 mls/hr Q6H IV Last administered on 02/20/17 06:30; Start 02/19/17 at 19:00; Stop 02/20/17 at 07:29; Status DC Aspirin (Omkar Aspirin) 325 mg DAILY PO Last administered on 02/23/17 09:37; Start 02/20/17 at 09:00 Atorvastatin Calcium (Lipitor) 20 mg QHS PO Last administered on 02/22/17 20: 35; Start 02/19/17 at 21:00 Celecoxib (CeleBREX) 200 mg BID PO Last administered on 02/23/17 09:36; Start 02/19/17 at 21:00 Vitamin D (Vitamin D3) 1,000 unit DAILY PO Last administered on 02/23/17 09:36 ; Start 02/20/17 at 09:00 Clopidogrel Bisulfate (Plavix) 75 mg DAILY PO Last administered on 02/23/17 09 :36; Start 02/20/17 at 09:00 Docusate Sodium (Colace) 100 mg DAILY PO Last administered on 02/23/17 09:36; Start 02/20/17 at 09:00 Fentanyl (Duragesic 75mcg/ Hr Patch) 1 patch Q3DAYS TD Last administered on 09:44; Start 02/20/17 at 20:00 Acetaminophen/ Hydrocodone Bitart (Lortab 7.5/325) 1 tab PRN Q4HRS PRN PO MODERATE PAIN; Start 02/19/17 at 19:00; Stop 02/19/17 at 19:27; Status DC Losartan Potassium (Cozaar) 50 mg DAILY PO Last administered on 02/23/17 09:36 ; Start 02/20/17 at 09:00 Metformin HCl (Glucophage) 500 mg BIDAFTMEAL PO Last administered on 02/23/17 09:37; Start 02/19/17 at 21:00 Pantoprazole Sodium (Protonix) 40 mg DAILYAC PO Last administered on 02/23/17 09:37; Start 02/20/17 at 07:30 Tamsulosin HCl (Flomax) 0.4 mg BID PO Last administered on 02/23/17 09:37; Start 02/19/17 at 21:00 Tamsulosin HCl (Flomax) 0.4 mg HS PO ; Start 02/19/17 at 21:00; Stop 02/19/17 at 21:00; Status DC Citalopram Hydrobromide (CeleXA) 40 mg DAILY PO Last administered on 02/23/17 09:37; Start 02/20/17 at 09:00 Gabapentin (Neurontin) 300 mg BID PO Last administered on 02/23/17 09:37; Start 02/19/17 at 21:00 Insulin Aspart (NovoLOG) 15 units TIDAC SQ Last administered on 02/23/17 09:42 ; Start 02/20/17 at 07:30 Insulin Detemir (Levemir) 22 units QHS SQ Last administered on 02/22/17 20:42 ; Start 02/19/17 at 21:00 Non-Formulary Medication 3.375 gm Q6HRS IV ; Start 02/20/17 at 00:00; Stop at 00:00; Status DC Alteplase, Recombinant (Cathflo) 2 mg 1X ONCE INT CAT Last administered on 02/19 23:32; Start 02/19/17 at 23:30; Stop 02/19/17 at 23:31; Status DC Piperacillin Sod/ Tazobactam Sod (Zosyn Per Pharmacy) 1 each PRN DAILY PRN MC SEE COMMENTS; Start 02/20/17 at 15:30 Piperacillin Sod/ Tazobactam Sod 3.375 gm/Sodium Chloride 50 ml @ 100 mls/hr Q6HRS IV Last administered on 02/23/17 05:36; Start 02/20/17 at 15:30 Albuterol/ Ipratropium (Duoneb) 3 ml RTQID NEB ; Start 02/22/17 at 08:00; Stop 02/22/17 at 08:00; Status DC Albuterol Sulfate (Ventolin Neb Soln) 2.5 mg PRN Q2HR PRN NEB SHORTNESS OF BREATH Last administered on 02/22/17 22:49; Start 02/22/17 at 00:45 Cefazolin Sodium/ Dextrose (Ancef 2gm Premix) 2 gm STK-MED ONCE IV ; Start at 14:00; Stop 02/22/17 at 12:48; Status DC Active Scripts Active Hydrocodone-Apap 7.5-325 (Hydrocodone Bit/Acetaminophen) 1 Each Tablet 1 Tab PO PRN Q4HRS PRN Reported Tamsulosin Hcl 0.4 Mg Cap.er.24h 1 Cap PO DAILY Zosyn 3.375 Gm Galaxy Bag (Txzxrkuzbswa-Uifx-Tworlygf,Iso) 3.375 Gm/50 Ml Froz.piggy 3.375 Gm IV Q6HRS Novolog (Insulin Aspart) 100 Unit/1 Ml Cartridge 15 Unit SQ TIDAC Pantoprazole Sodium 40 Mg Tablet.dr 40 Mg PO DAILY Levemir (Insulin Detemir) 100 Unit/1 Ml Vial 22 Unit SQ HS FENTANYL 75mcg/hr (Fentanyl) 1 Each Patch.td72 1 Patch TP Q3DAYS Colace (Docusate Sodium) 100 Mg Capsule 1 Cap PO DAILY Aspirin 325 Mg Tablet 1 Tab PO DAILY Vitamin D3 (Cholecalciferol (Vitamin D3)) 1,000 Unit Tablet 1 Tab PO DAILY Losartan Potassium 50 Mg Tablet 50 Mg PO DAILY Gabapentin 300 Mg Capsule 300 Mg PO BID Celebrex (Celecoxib) 200 Mg Capsule 200 Mg PO BID 30 Days Citalopram Hbr (Citalopram Hydrobromide) 40 Mg Tablet 40 Mg PO DAILY Lipitor (Atorvastatin Calcium) 20 Mg Tablet 20 Mg PO QHS Flomax (Tamsulosin Hcl) 0.4 Mg Cap.er.24h 0.4 Mg PO HS Metformin Hcl 500 Mg Tablet 500 Mg PO BID Plavix (Clopidogrel Bisulfate) 75 Mg Tablet 75 Mg PO DAILY Vitals/I & O Vital Sign - Last 24 Hours 02/22/17 02/22/17 02/22/17 02/22/17 15:00 19:00 20:00 20:35 Temp 97.9 98.1 97.9 98.1 Pulse 84 93 Resp 20 18 B/P (MAP) 145/82 (103) 146/71 (96) Pulse Ox 95 94 O2 Delivery Room Air Room Air Room Air Room Air 02/22/17 02/22/17 02/22/17 02/23/17 21:35 22:49 23:00 03:00 Temp 97.5 97.5 97.5 97.5 Pulse 90 88 Resp 18 18 B/P (MAP) 124/69 (87) 134/73 (93) Pulse Ox 93 98 98 O2 Delivery Room Air Room Air Room Air Room Air 02/23/17 02/23/17 02/23/17 02/23/17 07:15 08:20 09:36 09:44 Temp 97.5 97.5 Pulse 82 82 Resp 20 18 B/P (MAP) 140/84 (102) 140/84 Pulse Ox 99 97 O2 Delivery Nasal Cannula Room Air Room Air O2 Flow Rate 2.0 02/23/17 11:12 Temp 97.5 97.5 Pulse 80 Resp 18 B/P (MAP) 144/84 (104) Pulse Ox 97 O2 Delivery Room Air Intake and Output 02/23/17 02/23/17 02/24/17 15:00 23:00 07:00 Intake Total 350 ml Balance 350 ml PRATIBHA FATIMA III DO Feb 23, 2017 12:49
[2017-02-23] MEDS: SENNOSIDES/DOCUSATE 8.6/50MG TABLET. PO SCH (14:02)
--- NOTE | 2017-02-24 08:49 | DS ---
DATE OF DISCHARGE: 02/23/2017 PRINCIPAL DIAGNOSES: Left ankle fracture dislocation and bilateral heel wounds. PROCEDURES: Left ankle fusion with hindfoot nail and reapplication of external fixator left leg, debridement of heel wounds. DISPOSITION MEDICATIONS: Include Zosyn 3.375 g IV q.6 hours times planned duration of 2 weeks, fentanyl patch 75 mcg per hour for pain, Lortab 5/325 one p.o. q.6 hours p.r.n. breakthrough pain. Resume home medications including sliding scale insulin. FOLLOWUP: Follow up with Dr. Galvin in 2 weeks. ACTIVITY: Nonweightbearing left lower extremity, heel protected to right lower extremity. Pin site dressing and changes include pin site care daily with ChloraPrep, daily swab of incisions with ChloraPrep, daily wet-to-dry dressing changes for medial left heel wound and daily packing changes for right heel wound. DISPOSITION: [facility]. BRIEF DESCRIPTION OF HOSPITAL COURSE: I was asked to see the patient by Dr. Van who had initially treated him for a left ankle fracture dislocation with an external fixator. Unfortunately, the patient underwent displacement of the fracture and underwent fixation with hindfoot nail and external fixator. He was discharged to [facility] in stable condition after medically stable and acceptance at [facility] for further care. TIFFANY GALVIN MD DR: ISABEL/nts JOB#: [id number] / [id number]
[2017-02-25 11:23] LABS: ALPHA 1 0.2 g/dL (0.0-0.4); ALPHA 2 0.9 g/dL (0.4-1.0); BETA 0.9 g/dL (0.7-1.3); GAMMA 1.2 g/dL (0.4-1.8); M-SPIKE 0.1 g/dL (Not Observed); PROTEIN TOTAL 6.5 g/dL (6.0-8.5)
== END 2017-02-23 15:15 | DRG 493 ==
LOC: SURG 11:36 → 4 NORTH 18:40
PROVIDERS: ADMIT Orthopaedic Surgery; ATTEND Orthopaedic Surgery
PROC: 30233N1 Transfusion of Nonautologous Red Blood Cells into Peripheral Vein, Percutaneous Approach (ICD-10-PCS; 2017-02-19)
PROC: 0SGG05Z Fusion of Left Ankle Joint with External Fixation Device, Open Approach (ICD-10-PCS; principal; 2017-02-19 13:30)
PROC: 30233N1 Transfusion of Nonautologous Red Blood Cells into Peripheral Vein, Percutaneous Approach (ICD-10-PCS; 2017-02-20)
PROC: 30233N1 Transfusion of Nonautologous Red Blood Cells into Peripheral Vein, Percutaneous Approach (ICD-10-PCS; 2017-02-21)
DX: S82.892A Other fracture of left lower leg, initial encounter for closed fracture (principal); N17.9 Acute kidney failure, unspecified; E11.22 Type 2 diabetes mellitus with diabetic chronic kidney disease; E11.40 Type 2 diabetes mellitus with diabetic neuropathy, unspecified; Z68.42 Body mass index [BMI] 45.0-49.9, adult; G70.00 Myasthenia gravis without (acute) exacerbation; I12.9 Hypertensive chronic kidney disease with stage 1 through stage 4 chronic kidney disease, or unspecified chronic kidney disease; D63.8 Anemia in other chronic diseases classified elsewhere; E66.01 Morbid (severe) obesity due to excess calories; M72.9 Fibroblastic disorder, unspecified; F32.9 Major depressive disorder, single episode, unspecified; K21.9 Gastro-esophageal reflux disease without esophagitis; X58.XXXA Exposure to other specified factors, initial encounter; N18.9 Chronic kidney disease, unspecified; E78.5 Hyperlipidemia, unspecified; Z86.73 Personal history of transient ischemic attack (TIA), and cerebral infarction without residual deficits; Y93.89 Activity, other specified; Y92.89 Other specified places as the place of occurrence of the external cause; Y99.8 Other external cause status; Z83.3 Family history of diabetes mellitus; Z82.49 Family history of ischemic heart disease and other diseases of the circulatory system
CPT/HCPCS: 36415; 71010; 76000; 80048; 80053; 82607; 82728; 82746; 82962; 83540; 83550; 85014; 85018; 85025; 85027; 85045; 86850; 86900; 86901; 86920; 94250; 94640; J0690; J1100; J1815; J2370; J2405; J2543; J2704; J2710; J2997; J3010; J3490; J7613; P9016; 97110; 97530; 97535; J2001

== ENCOUNTER → 2017-03-02 | Outpatient (CLI) | payer BC ==
[2017-02-23 11:12] VITALS: BP 144/84
[~2017-03-02] MED LIST changes: +TAMS0.4C2 PO
== END ==
LOC: PMGWOUND 11:04
PROVIDERS: ATTEND Emergency Medicine Undersea and Hyperbaric Medicine
DX: E11.621 Type 2 diabetes mellitus with foot ulcer (principal); L97.412 Non-pressure chronic ulcer of right heel and midfoot with fat layer exposed; L97.511 Non-pressure chronic ulcer of other part of right foot limited to breakdown of skin; E11.622 Type 2 diabetes mellitus with other skin ulcer; L97.321 Non-pressure chronic ulcer of left ankle limited to breakdown of skin; L97.423 Non-pressure chronic ulcer of left heel and midfoot with necrosis of muscle; E11.22 Type 2 diabetes mellitus with diabetic chronic kidney disease; I12.0 Hypertensive chronic kidney disease with stage 5 chronic kidney disease or end stage renal disease; N18.6 End stage renal disease; Z99.2 Dependence on renal dialysis
CPT/HCPCS: 99214

== ENCOUNTER → 2017-03-08 | Outpatient (CLI) | payer BC ==
[2017-02-23 11:12] VITALS: BP 144/84
== END | disposition home or self-care (01) ==
LOC: PMGWOUND 09:02
PROVIDERS: ATTEND Emergency Medicine Undersea and Hyperbaric Medicine
DX: E11.621 Type 2 diabetes mellitus with foot ulcer (principal); L97.412 Non-pressure chronic ulcer of right heel and midfoot with fat layer exposed; L97.423 Non-pressure chronic ulcer of left heel and midfoot with necrosis of muscle; E11.622 Type 2 diabetes mellitus with other skin ulcer; L97.321 Non-pressure chronic ulcer of left ankle limited to breakdown of skin; E11.22 Type 2 diabetes mellitus with diabetic chronic kidney disease; I12.0 Hypertensive chronic kidney disease with stage 5 chronic kidney disease or end stage renal disease; N18.6 End stage renal disease; Z99.2 Dependence on renal dialysis; K21.9 Gastro-esophageal reflux disease without esophagitis; F32.9 Major depressive disorder, single episode, unspecified; E66.01 Morbid (severe) obesity due to excess calories; Z68.42 Body mass index [BMI] 45.0-49.9, adult; E78.5 Hyperlipidemia, unspecified; E11.40 Type 2 diabetes mellitus with diabetic neuropathy, unspecified; Z86.73 Personal history of transient ischemic attack (TIA), and cerebral infarction without residual deficits; E78.00 Pure hypercholesterolemia, unspecified; E11.42 Type 2 diabetes mellitus with diabetic polyneuropathy
CPT/HCPCS: 11042; 97597; 97598; 97605

== ENCOUNTER 2017-03-11 14:41 | Inpatient (IN) | payer BC ==
[~2017-03-11] VITALS: Ht 182.9 cm; Wt 155.1 kg
[2017-03-11] MEDS ORDERED: diphenhydrAMINE 50 MG/ML VIAL IVP ONE (15:30)
[2017-03-11 15:46] LABS: HEMOGLOBIN 7.1 g/dL (13.0-17.5); RED BLOOD COUNT 2.23 x10^6/uL (4.30-5.70); RED CELL DISTRIBUTION WIDTH 16.9 % (11.5-14.5); WHITE BLOOD COUNT 7.8 x10^3/uL (4.0-11.0)
--- NOTE | 2017-03-11 15:48 | RAD ---
CT head without contrast History: Aphasia, moderate mental status. Code stroke Comparison: 04/23/2011. Procedure: Axial images are obtained of the head from the skull base through the vertex without IV contrast. Findings: Mild bilateral periventricular white matter hypodensity likely chronic small vessel ischemic disease. The ventricles and sulci are normal for the patient's age. No mass-effect, intracranial mass, midline shift, hemorrhage or obvious acute infarction is identified. Basilar cisterns are patent. Bone windows demonstrate no significant calvarial abnormality. The visualized paranasal sinuses appear clear. Impression: 1. No acute intracranial process. Results called to ordering physician at time of dictation. PQRS Compliance Statement: One or more of the following individualized dose reduction techniques were utilized for this examination: 1. Automated exposure control 2. Adjustment of the mA and/or kV according to patient size 3. Use of iterative reconstruction technique faint
--- NOTE | 2017-03-11 15:52 | RAD ---
1 view of the Chest 03/11/2017 5:22 PM Indication: aphasia Comparison: Chest radiograph February 20, 2017 Findings: Cardiomegaly is similar prior exam allowing for low inspiratory volumes. There is central vascular congestion and mild interstitial thickening which may represent pulmonary edema, possibly representing mild congestive failure. No pneumothorax is identified. No acute osseous changes are seen. Impression: Low lung volumes. Cardiomegaly, central vascular congestion, mild interstitial thickening are seen most commonly reflecting mild interstitial edema in the setting of congestive failure
[2017-03-11 15:55] LABS: INR 1.3 (0.8-1.1); PROTHROMBIN TIME PATIENT 15.5 SEC (11.7-14.0)
[2017-03-11 16:03] LABS: CREATININE 1.6 mg/dL (0.7-1.3); GFR 43.9; POTASSIUM 3.8 mmol/L (3.5-5.1)
[2017-03-11 16:13] LABS: HEMATOCRIT 20.2 % (39.0-53.0)
--- NOTE | 2017-03-11 17:08 | RAD ---
MRI Brain without contrast History: Altered mental status, aphasia Technique: Multiplanar, multisequential noncontrast MR imaging was performed of the brain. Contrast: None Comparison: None Findings: There is motion degradation. There could be a tiny focus of restricted diffusion of the left lauro although in an area of artifact. Otherwise no other restricted diffusion is identified. There is no intra-axial mass effect, midline shift, extra-axial fluid collection. Ventricular size is within normal limits. There is mild generalized supratentorial involutional change. There is minimal T2 and FLAIR hyperintense abnormality of the supratentorial white matter. There is preservation of the major arterial intracranial flow voids the skull base. There has been lens surgery bilaterally, slightly disconjugate gaze. Mastoid air cells are overall aerated. There is minimal right maxillary sinus mucosal thickening. Cerebellar tonsils are normal in location. There is preserved marrow signal clivus. There is no significant abnormality of pineal gland or pituitary gland. There is possible small focus of old microhemorrhage of the left lauro although poorly characterized due to motion. Impression: 1. Exam is degraded by motion. Tiny acute infarct of the left lauro is possible although in an area of artifact. There is possible small focus of old microhemorrhage of the left lauro. There is mild supratentorial atrophy. Minimal T2 and FLAIR hyperintense abnormality of the supratentorial white matter may be due to chronic microvascular ischemic disease. FOR INTERNAL CODING PURPOSES Critical result: Findings discussed with Dr. Vicente at 03/11/2017 5:04 PM. RESULT CODE: (C) Electronically signed by: Kleber Cisneros MD (03/11/2017 5:04 PM) [id number]
--- NOTE | 2017-03-11 17:38 | EKG ---
[facility] [address] [place] [address] Test Date: 2017-03-11 Test Time: 17:17:50 Pat Name: RED MOMIN Department: Room: Gender: M Deli Worker: : 1955 Requested By: LEO SCHULTE Order Number: [id number] Reading MD: Measurements Intervals [place] Rate: 93 P: 90 FL: 136 QRS: -24 QRSD: 86 T: 12 QT: 382 QTc: 478 Interpretive Statements SINUS RHYTHM LEFTWARD AXIS QRS(T) CONTOUR ABNORMALITY CONSIDER INFERIOR INFARCT RI6.01 Unconfirmed report No previous ECG available for comparison
--- NOTE | 2017-03-11 18:16 | PHYS DOC ---
Past Medical History Past Medical History: CVA, Depression, Diabetes-Type II, GERD, High Cholesterol , Hypertension, Other Additional Past Medical Histor: charcoit foot, NEUROPATHY, SLEEP APNEA Past Surgical History: Cholecystectomy, Other Additional Past Surgical Histo: right foot surgery, hemmorhoid surgery, non- descended testicle, hernia, R K Alcohol Use: None Drug Use: None Adult General Chief Complaint Chief Complaint: MECHANICAL FALL HPI HPI Patient is a 62 year old gentleman who presents to the ER today from [facility] facility secondary to an altered mental status. Record per the half-way facility reports that the patient approximate 1 hour prior to coming to the ER fell out of his wheelchair. Patient was reaching for an object in the sink and fell off his wheelchair. The nurse evaluated the patient and he reported that he did have positive head trauma however no loss of consciousness. Per the nurse at [facility] the patient was alert awake and oriented 4 and at his baseline mental status which is conversant. The only injury that the nurse found at that time with a scrape to his right lateral knee which he put a 4 x 4 on. Patient was placed on neuro checks every 15 minutes times one hour which the patient passed and remained stable and had normal mentation and a normal neuro exam during that time.. The patient was sent over for his physical therapy and during his physical therapy the patient had an acute alteration in his mental status and became aphasic/aphonic and appeared agitated. EMS was called and the patient was sent to the ER. Patient had a blood sugar of 152 by EMS. Patient is currently at [facility] secondary to lower extremity injury requiring a external fixator that per the nursing report he might have injured during his fall today. Per the half-way the patient has been in his usual state of health with no fevers shakes vomiting diarrhea cough cold rhinorrhea abdominal pain chest pain. Patient is currently on Plavix and taken his dose earlier today. This is a 62-year-old gentleman who presents to the ER today secondary to possible stroke. Patient had a stroke alert initiated on him. Patient's CT scan of his head was negative for an acute stroke. I discussed the case with our neurologist irrigationist designer Dr. arriola. She is recommended that we get an MRI. Patient had an MRI that revealed a possible small left pontine acute infarct. cbC and CMP within normal limits. PT equals 15.5. INR was 1.3. Assessment and plan 62-year-old gentleman with possible acute stroke by MRI. Patient is not a candidate for thrombolytic therapy secondary to an elevated PT of 15.5. Patient' s symptoms are somewhat inconsistent with an acute stroke. Case was discussed with our neurologist irrigationist designer and she agrees with the current plan to follow him and watch him in the hospital. Patient has received a dose of Plavix. Patient appears to have difficulty moving his tongue although it is midline and he is able to wiggle it on command. Question is whether or not this was a dystonic reaction also qasim. Patient was given Benadryl IV without any change in his symptoms. Question is whether not symptoms were secondary to subdural bleed secondary to his head trauma versus concussion. Patient's head CT is unremarkable for any acute trauma. This will be followed up on the hospital. Patient's labs were all within normal limits. Patient does not show any evidence of infectious process that might be causing this. Patient's neck is supple without any Kernig's or Buczynski sign it would be consistent with meningitis. Patient does not present with any signs or symptoms of be concerning with meningitis at this time. Review of Systems Review of Systems Review of systems: Constitutional: Denies fever or chills Eyes: Denies change in visual acuity, redness, or eye pain HENT: Denies nasal congestion or sore throat Review of systems difficult to obtain secondary to patient's inability to phonate. Current Medications Current Medications Current Medications Medications (Trade) Dose Ordered Sig/Serenity Start Time Stop Time Status Last Admin Dose Admin Diphenhydramine HCl (Benadryl) 50 mg 1X ONCE 03/11/17 15:30 03/11/17 15:32 DC 03/11/17 17:11 50 MG Allergies Allergies Allergies Coded Allergies Type Severity Reaction Last Updated Verified morphine Allergy Intermediate 02/19/17 Yes Physical Exam Physical Exam Review of systems: Constitutional: Denies fever or chills Eyes: Denies change in visual acuity, redness, or eye pain HENT: Denies nasal congestion or sore throat All other review systems are negative except as documented in the history of present illness. Physical exam: Constitutional: Well developed, well nourished, no acute distress, non-toxic appearance. HENT: Normocephalic, atraumatic, bilateral external ears normal, oropharynx moist, no oral exudates, nose normal. Eyes: PERRLA, EOMI, conjunctiva normal, no discharge. Neck: Normal range of motion, no tenderness, supple, no stridor. Cardiovascular:Heart rate regular rhythm, Lungs & Thorax: Bilateral breath sounds clear to auscultation Abdomen: Bowel sounds normal, soft, no tenderness, no masses, no pulsatile masses. Skin: Warm, dry, no erythema, no rash. Back: No tenderness, no CVA tenderness. Extremities: Patient with external fixator to his left lower extremity with some bleeding at the site. Neurologic: Alert and awake. Normal motor function, normal sensory function, no focal deficits noted. Patient is 5 out of 5 upper and lower extremity motor function but limited in his left lower 70 secondary to his external fixator. Patient 5 out of 5 hand grasp. Patient's current nerves to 12 are intact. Patient has no facial droop. Patient's tongue is midline. Patient's pupils were equally round and reactive to light and extraocular motions are intact. Patient is unable to speak and is unable to phonate sensory difficult to assess patient' s aphasia versus inability to make noise. Patient appears to get frustrated while trying to make sounds. Patient appears to follow commands. Patient appears to be aware of his environment. Psychologic appears frustrated. Current Patient Data Vital Signs Vital Signs Date Time Temp Pulse Resp B/P (MAP) Pulse Ox O2 Delivery O2 Flow Rate FiO2 03/11/17 17:30 96 22 159/83 (108) 96 Nasal Cannula 2.0 03/11/17 14:41 98.0 98.0 Lab Values Laboratory Tests Test 03/11/17 15:40 White Blood Count 7.8 x10^3/uL (4.0-11.0) Red Blood Count 2.23 x10^6/uL (4.30-5.70) L Hemoglobin 7.1 g/dL (13.0-17.5) L Hematocrit 20.2 % (39.0-53.0) *L Mean Corpuscular Volume 91 fL (79-100) Mean Corpuscular Hemoglobin 32 pg (25-35) Mean Corpuscular Hemoglobin Concent 35 g/dL (31-37) Red Cell Distribution Width 16.9 % (11.5-14.5) H Platelet Count 166 x10^3/uL (140-400) Prothrombin Time 15.5 SEC (11.7-14.0) H Prothrombin Time INR 1.3 (0.8-1.1) H PTT 33 SEC (24-38) Sodium Level 143 mmol/L (136-145) Potassium Level 3.8 mmol/L (3.5-5.1) Chloride Level 106 mmol/L (98-107) Carbon Dioxide Level 26 mmol/L (21-32) Anion Gap 11 (6-14) Blood Urea Nitrogen 22 mg/dL (8-26) Creatinine 1.6 mg/dL (0.7-1.3) H Estimated GFR (Cockcroft-Gault) 43.9 Glucose Level 168 mg/dL (70-99) H Calcium Level 9.0 mg/dL (8.5-10.1) Troponin I Quantitative < 0.017 ng/mL (0.000-0.055) Laboratory Tests 03/11/17 15:40 Laboratory Tests 03/11/17 15:40 EKG EKG [] Radiology/Procedures Radiology/Procedures [] Course & Med Decision Making Course & Med Decision Making Pertinent Labs and Imaging studies reviewed. (See chart for details) [] Dragon Disclaimer Dragon Disclaimer This electronic medical record was generated, in whole or in part, using a voice recognition dictation system. Departure Departure Impression: Primary Impression: Ischemic stroke Disposition: ADMITTED INPATIENT Admitting Physician: Other (reusch) Condition: GUARDED Referrals: PRATIBHA FATIMA III, DO (PCP) LEO SCHULTE MD Mar 11, 2017 18:16
[2017-03-11 18:23] LABS: BILIRUBIN,URINE NEGATIVE (NEG); GLUCOSE,URINE NEGATIVE (NEG); NITRITE,URINE NEGATIVE (NEG); PH,URINE 5.5; PROTEIN,URINE NEGATIVE (NEG-TRACE); UROBILINOGEN,URINE 0.2 mg/dL (0.2 mg/dL)
[2017-03-11 18:29] LABS: BARBITURATES NEG (NEG); BENZODIAZEPINES NEG (NEG); CANNABINOIDS NEG (NEG); COCAINE NEG (NEG); METHADONE NEG (NEG); OPIATES POS (NEG); PHENCYCLIDINE NEG (NEG)
[2017-03-11] MEDS ORDERED: ONDANSETRON PF 4 MG/2 ML VIAL. IV PRN (18:30)
[2017-03-11] MEDS ORDERED: CLOPIDOGREL BISULFATE 75 MG TABLET PO ONE (18:30)
[2017-03-11] MEDS ORDERED: MORPHINE SULFATE 4 MG/ML DISP.SYRIN. IV PRN (18:30)
[2017-03-11] MEDS ORDERED: ACETAMINOPHEN 325 MG TABLET. PO PRN (18:30)
[2017-03-11 18:32] LABS: BACTERIA,URINE 0 /HPF (0-FEW); RBC,URINE 0 /HPF (0-2); WBC,URINE 0 /HPF (0-4)
--- NOTE | 2017-03-11 19:08 | RAD ---
Indication: Aphasia, stroke workup Technique: Study is dated March 11, 2017. Grayscale, color-flow, and spectral waveform analysis was performed. There is no comparison study available. Findings: Right Carotid: The 2 D images demonstrate mild plaquing with no evidence of significant narrowing. The color images are normal without turbulence or jet effect. The CCA Peak systolic velocity is 96 cm/sec, ICA peak systolic velocity is 65 cm/sec, and ICA end-diastolic velocity is 24 cm/sec. The ICA/CCA ratio is 0.7. Left Carotid: The 2 D images demonstrate mild plaquing with no evidence of significant narrowing. The color images are normal without turbulence or jet effect. The CCA Peak systolic velocity is 83 cm/sec, ICA peak systolic velocity is 129 cm/sec, and ICA end-diastolic velocity is 43 cm/sec. The ICA/CCA ratio is 1.5. Vertebral Arteries: Antegrade flow is noted within both vertebral arteries. All measurements follow NASCET methodology. Impression: Plaquing at the carotid bulbs. Very mildly elevated left ICA peak systolic velocity and end-diastolic velocity, without elevation of ratio. Stenosis of 50-69 percent is possible. Electronically signed by: Sridhar Rea MD (03/11/2017 7:05 PM) [facility]
[2017-03-11] MEDS ORDERED: DEXTROSE 50% 25 GM / 50ML DISP.SYRIN. IV PRN (19:30)
[2017-03-11 20:25] VITALS: BP 130/74
[2017-03-11] MEDS: GABAPENTIN 300 MG CAPSULE. PO SCH (21:00)
[2017-03-11] MEDS: CELECOXIB 200 MG CAPSULE. PO SCH (21:00)
[2017-03-11] MEDS: TAMSULOSIN 0.4 MG CAP.ER.24H. PO SCH (21:00)
[2017-03-11] MEDS: ATORVASTATIN CALCIUM 20 MG TABLET PO SCH (21:00)
[2017-03-11] MEDS ORDERED: TAMSULOSIN 0.4 MG CAP.ER.24H. PO SCH (21:00)
--- NOTE | 2017-03-11 22:10 | HP ---
ADMIT DATE: 03/11/2017 CHIEF COMPLAINT: Fall, aphasia. HISTORY OF PRESENT ILLNESS: The patient is a morbidly obese 62-year-old gentleman who has been transferred from [facility] to the Emergency Room with an episode of aphasia. Apparently, because of rehab for an acute ankle fracture with external fixation on 02/19, he had been in a wheelchair try to reach for an object in the sink and apparently slid out of his wheelchair. The patient did not have any acute injuries at this time. No further evaluation was undertaken aside from bedside exam. However, one hour later, he had an episode of altered mental status, becoming aphasic, aphonic and appeared agitated. EMS was called and he was transferred to the Emergency Room at [facility]. Blood sugar at that time was completely normal. Blood pressure is slightly elevated. In the Emergency Room, a CT of the head without contrast did not show any abnormalities. A stat MRI was obtained, which unfortunately was degraded by motion artifact. A possible tiny acute infarct in the left palm was noted. Also, old micro hemorrhage in the left lauro. No other pertinent abnormalities were noted. As these findings were not congruent with his symptomatology and his PT was slightly elevated, he did not receive TPA for suspected stroke. Neurology has seen the patient as well and concurred. The patient is now admitted for further monitoring and evaluation. Of note, the patient actually has been in the healthcare setting either in the hospital, rehab or LTAC for the past 2 months after having initially wound infection in his left heel, then later ankle fracture and dislocation of the same site requiring external fixation, which had to be redone a couple of weeks after initial surgery due to displacement. His most recent surgery was on 02/[address] Galvin. PAST MEDICAL HISTORY: Hypertension, hyperlipidemia, diabetes mellitus, peripheral neuropathy, history of CVA, GERD, depression, chronic renal insufficiency. FAMILY HISTORY: Positive for diabetes and hypertension. SOCIAL HISTORY: Lives with his prior to all his recent health issues. No toxic habits. ALLERGIES: MORPHINE. MEDICATIONS: MAR reconciled with home medications. REVIEW OF SYSTEMS: The patient relates that he has back pain that he rates 7/10, left foot pain 5/10, right foot pain 2/10. Of note, he is writing as he is unable to vocalize the answers. He denies any nausea or vomiting, any headaches, any vision problems, lightheadedness, chest pain, shortness of breath or abdominal symptoms. Likewise, rest of organ system review is negative. PHYSICAL EXAMINATION: VITAL SIGNS: From today show a blood pressure of 147/79, heart rate at 94, respiratory rate at 22, he is afebrile. GENERAL: This is a morbidly obese 62-year-old gentleman, awake, alert, in no acute distress. HEENT: Shows no scleral icterus. NECK: Supple. LUNGS: Clear. HEART: Has regular rate and rhythm. ABDOMEN: Has positive bowel sounds, soft, nontender. EXTREMITIES: Show external fixation on left dorsey and foot. There is some blood around the external pin on the lateral malleolus. LABORATORY DATA: CBC with a WBC of 7.8, hemoglobin 7.1, MCV of 91. Chemistries with a BUN and creatinine of 22 and 1.6, which is slightly above his baseline of approximately 1.3. Electrolytes, however, are within normal limits. Glucose at 168, calcium 9.1, troponin is negative. TSH 1.2. IMAGING: MRI of the brain as above. Chest x-ray with cardiomegaly and central vascular congestion, but still has low lung volumes. ASSESSMENT AND PLAN: The patient is a 62-year-old gentleman with multiple medical issues, most recent issues with ankle fracture and infection. He now presents after a fall and subsequent development of aphasia/aphonia. The neurological deficit is completely isolated. He is able to understand and respond nonverbally. MRI is not revealing at this time. Further workup is pending under Dr. Ruiz's direction. I will continue his home medications including aspirin and Plavix for the time being. Second issue is his recent fall. As he had previous displacement of external fixation, I am a bit concerned that there is blood around his external fixation in the malleolus. We will contact Dr. Galvin for evaluation. The patient does have hypertension and is currently slightly elevated. We will continue his home medications and add hydralazine p.r.n. IV. The patient does have a history of previous chronic renal insufficiency with occasional acute failure, which actually required temporary dialysis in the past. Current levels are fairly close. We will monitor with IV fluids cautiously. The patient does not have any heart history per se, but on secondary prevention medications with previous history of cerebrovascular accident. The patient has significant anemia at this time. Suspect this is related to the ongoing inflammation. On previous admissions, this actually had been worked up and had been found to be due to inflammation, not iron deficiency. He should be on p.o. iron. If need be with worsening, he may need transfusions. The patient is diabetic, which appears to be well controlled at this time. Continue his home Levemir. He will be placed on individualized sliding scale to account for his insulin needs. NEVIN LONG MD DR: CRISTOFER/nts JOB#: [id number] / [id number] TOMAS
[2017-03-11] MEDS: INSULIN DETEMIR 300 UNITS/3 ML INSULN.PEN. SQ SCH (22:51)
[2017-03-11 23:10] VITALS: BP 140/78
[2017-03-11] MEDS: HYDROmorphone 2 MG/ML VIAL IVP PRN (23:44)
[2017-03-11] MEDS: PIPERACILLIN/TAZOBACTAM 3.375 GM in IV NORMAL SALINE 50ML 50 ML IV SCH (23:44)
[2017-03-12] MEDS ORDERED: PIPERACILLIN TAZO DEXTROSE ISO IV SCH
[2017-03-12] MEDS ORDERED: [UNRECOGNIZED DRUG - OTHER] IV SCH
[2017-03-12 03:10] VITALS: BP 151/78
[2017-03-12 04:47] LABS: BASO % 1 % (0-3); EOS % 5 % (0-3); HEMATOCRIT 22.1 % (39.0-53.0); HEMOGLOBIN 7.4 g/dL (13.0-17.5); LYMPH # 0.8 x10^3/uL (1.0-4.8); LYMPH % 11 % (24-48); MEAN CORPUSCULAR HEMOGLOBIN 31 pg (25-35); MEAN CORPUSCULAR HGB CONC 33 g/dL (31-37); MEAN CORPUSCULAR VOLUME 93 fL (79-100); MONO % 9 % (0-9); NEUT % 74 % (31-73); PLATELET COUNT 158 x10^3/uL (140-400); RED BLOOD COUNT 2.39 x10^6/uL (4.30-5.70); RED CELL DISTRIBUTION WIDTH 16.7 % (11.5-14.5); WHITE BLOOD COUNT 6.9 x10^3/uL (4.0-11.0)
[2017-03-12 05:03] LABS: CHOLESTEROL/HDL RATIO 3.2
[2017-03-12 05:09] LABS: ALBUMIN 2.7 g/dL (3.4-5.0); ALBUMIN/GLOBULIN RATIO 0.6 (1.0-1.7); CALCIUM 9.4 mg/dL (8.5-10.1); CREATININE 1.4 mg/dL (0.7-1.3); GFR 51.2; POTASSIUM 3.8 mmol/L (3.5-5.1); TOTAL BILIRUBIN 0.5 mg/dL (0.2-1.0); TOTAL PROTEIN 7.4 g/dL (6.4-8.2)
[2017-03-12] MEDS: PIPERACILLIN/TAZOBACTAM 3.375 GM in IV NORMAL SALINE 50ML 50 ML IV SCH ×3 (06:08→17:25)
[2017-03-12 07:00] VITALS: BP 128/54
[2017-03-12] MEDS: IPRATRPIUM/ALBUTEROL 0.5/2.5MG 3 ML NEBU. NEB SCH ×4 (07:22→19:38)
[2017-03-12] MEDS: HYDROmorphone 2 MG/ML VIAL IVP PRN (07:55)
[2017-03-12] MEDS: INSULIN ASPART 300 UNITS/3 ML INSULN.PEN SQ SCH ×3 (08:00→17:31)
[2017-03-12] MEDS: metFORMIN 500 MG TABLET PO SCH ×2 (08:00→17:24)
--- NOTE | 2017-03-12 10:08 | PDOC ---
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 History of Present Illness History of Present Illness Pt resting. Awoke Seems depressed VSS Vitals Vitals Vital Signs Date Time Temp Pulse Resp B/P (MAP) Pulse Ox O2 Delivery O2 Flow Rate FiO2 03/12/17 07:55 94 Nasal Cannula 2.0 03/12/17 07:00 97.7 95 20 128/54 (78) 97.7 Physical Exam General: Alert, Oriented X3 Heart: Regular rate, Normal S1, Normal S2 Lungs: Clear, Other Abdomen: Normal bowel sounds, Soft Extremities: Other (L foot and ankle with ext fixator) Labs LABS Laboratory Tests Test 03/11/17 15:40 03/11/17 18:00 03/11/17 21:55 03/12/17 04:30 White Blood Count 7.8 x10^3/uL (4.0-11.0) 6.9 x10^3/uL (4.0-11.0) Red Blood Count 2.23 x10^6/uL (4.30-5.70) 2.39 x10^6/uL (4.30-5.70) Hemoglobin 7.1 g/dL (13.0-17.5) 7.4 g/dL (13.0-17.5) Hematocrit 20.2 % (39.0-53.0) 22.1 % (39.0-53.0) Mean Corpuscular Volume 91 fL (79-100) 93 fL (79-100) Mean Corpuscular Hemoglobin 32 pg (25-35) 31 pg (25-35) Mean Corpuscular Hemoglobin Concent 35 g/dL (31-37) 33 g/dL (31-37) Red Cell Distribution Width 16.9 % (11.5-14.5) 16.7 % (11.5-14.5) Platelet Count 166 x10^3/uL (140-400) 158 x10^3/uL (140-400) Prothrombin Time 15.5 SEC (11.7-14.0) Prothromb Time International Ratio 1.3 (0.8-1.1) Activated Partial Thromboplast Time 33 SEC (24-38) Sodium Level 143 mmol/L (136-145) 145 mmol/L (136-145) Potassium Level 3.8 mmol/L (3.5-5.1) 3.8 mmol/L (3.5-5.1) Chloride Level 106 mmol/L (98-107) 107 mmol/L (98-107) Carbon Dioxide Level 26 mmol/L (21-32) 27 mmol/L (21-32) Anion Gap 11 (6-14) 11 (6-14) Blood Urea Nitrogen 22 mg/dL (8-26) 21 mg/dL (8-26) Creatinine 1.6 mg/dL (0.7-1.3) 1.4 mg/dL (0.7-1.3) Estimated GFR (Cockcroft-Gault) 43.9 51.2 Glucose Level 168 mg/dL (70-99) 203 mg/dL (70-99) Calcium Level 9.0 mg/dL (8.5-10.1) 9.4 mg/dL (8.5-10.1) Troponin I Quantitative < 0.017 ng/mL (0.000-0.055) Vitamin B12 Level 421 pg/mL (247-911) Thyroid Stimulating Hormone (TSH) 1.245 uIU/mL (0.358-3.74) Urine Collection Type Unknown Urine Color Yellow Urine Clarity Clear Urine pH 5.5 Urine Specific Holden 1.015 Urine Protein Negative mg/dL (NEG-TRACE) Urine Glucose (UA) Negative mg/dL (NEG) Urine Ketones (Stick) Negative mg/dL (NEG) Urine Blood Negative (NEG) Urine Nitrite Negative (NEG) Urine Bilirubin Negative (NEG) Urine Urobilinogen Dipstick 0.2 mg/dL (0.2 mg/dL) Urine Leukocyte Esterase Negative (NEG) Urine RBC 0 /HPF (0-2) Urine WBC 0 /HPF (0-4) Urine Squamous Epithelial Cells None /LPF Urine Bacteria 0 /HPF (0-FEW) Urine Hyaline Casts Few /HPF Urine Mucus Slight /LPF Urine Opiates Screen Pos (NEG) Urine Methadone Screen Neg (NEG) Urine Barbiturates Neg (NEG) Urine Phencyclidine Screen Neg (NEG) Urine Amphetamine/Methamphetamine Neg (NEG) Urine Benzodiazepines Screen Neg (NEG) Urine Cocaine Screen Neg (NEG) Urine Cannabinoids Screen Neg (NEG) Urine Ethyl Alcohol Neg (NEG) Glucose (Fingerstick) 215 mg/dL (70-99) Neutrophils (%) (Auto) 74 % (31-73) Lymphocytes (%) (Auto) 11 % (24-48) Monocytes (%) (Auto) 9 % (0-9) Eosinophils (%) (Auto) 5 % (0-3) Basophils (%) (Auto) 1 % (0-3) Neutrophils # (Auto) 5.1 x10^3uL (1.8-7.7) Lymphocytes # (Auto) 0.8 x10^3/uL (1.0-4.8) Monocytes # (Auto) 0.6 x10^3/uL (0.0-1.1) Eosinophils # (Auto) 0.3 x10^3/uL (0.0-0.7) Basophils # (Auto) 0.0 x10^3/uL (0.0-0.2) BUN/Creatinine Ratio 15 (6-20) Total Bilirubin 0.5 mg/dL (0.2-1.0) Aspartate Amino Transf (AST/SGOT) 15 U/L (15-37) Alanine Aminotransferase (ALT/SGPT) 15 U/L (16-63) Alkaline Phosphatase 76 U/L (46-116) Total Protein 7.4 g/dL (6.4-8.2) Albumin 2.7 g/dL (3.4-5.0) Albumin/Globulin Ratio 0.6 (1.0-1.7) Triglycerides Level 78 mg/dL (0-150) Cholesterol Level 127 mg/dL (0-200) LDL Cholesterol, Calculated 71 mg/dL (0-100) VLDL Cholesterol, Calculated 16 mg/dL (0-40) Non-HDL Cholesterol Calculated 87 mg/dL (0-129) HDL Cholesterol 40 mg/dL (40-60) Cholesterol/HDL Ratio 3.2 Test 03/12/17 07:21 Glucose (Fingerstick) 172 mg/dL (70-99) Review of Systems Review of Systems co pain co weakness Assessment and Plan Assessmemt and Plan Possible CVA MS change weakness Aphasia 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 Labs Laboratory Tests Test 03/11/17 15:40 03/11/17 18:00 03/11/17 21:55 03/12/17 04:30 White Blood Count 7.8 x10^3/uL (4.0-11.0) 6.9 x10^3/uL (4.0-11.0) Red Blood Count 2.23 x10^6/uL (4.30-5.70) 2.39 x10^6/uL (4.30-5.70) Hemoglobin 7.1 g/dL (13.0-17.5) 7.4 g/dL (13.0-17.5) Hematocrit 20.2 % (39.0-53.0) 22.1 % (39.0-53.0) Mean Corpuscular Volume 91 fL (79-100) 93 fL (79-100) Mean Corpuscular Hemoglobin 32 pg (25-35) 31 pg (25-35) Mean Corpuscular Hemoglobin Concent 35 g/dL (31-37) 33 g/dL (31-37) Red Cell Distribution Width 16.9 % (11.5-14.5) 16.7 % (11.5-14.5) Platelet Count 166 x10^3/uL (140-400) 158 x10^3/uL (140-400) Prothrombin Time 15.5 SEC (11.7-14.0) Prothromb Time International Ratio 1.3 (0.8-1.1) Activated Partial Thromboplast Time 33 SEC (24-38) Sodium Level 143 mmol/L (136-145) 145 mmol/L (136-145) Potassium Level 3.8 mmol/L (3.5-5.1) 3.8 mmol/L (3.5-5.1) Chloride Level 106 mmol/L (98-107) 107 mmol/L (98-107) Carbon Dioxide Level 26 mmol/L (21-32) 27 mmol/L (21-32) Anion Gap 11 (6-14) 11 (6-14) Blood Urea Nitrogen 22 mg/dL (8-26) 21 mg/dL (8-26) Creatinine 1.6 mg/dL (0.7-1.3) 1.4 mg/dL (0.7-1.3) Estimated GFR (Cockcroft-Gault) 43.9 51.2 Glucose Level 168 mg/dL (70-99) 203 mg/dL (70-99) Calcium Level 9.0 mg/dL (8.5-10.1) 9.4 mg/dL (8.5-10.1) Troponin I Quantitative < 0.017 ng/mL (0.000-0.055) Vitamin B12 Level 421 pg/mL (247-911) Thyroid Stimulating Hormone (TSH) 1.245 uIU/mL (0.358-3.74) Urine Collection Type Unknown Urine Color Yellow Urine Clarity Clear Urine pH 5.5 Urine Specific Holden 1.015 Urine Protein Negative mg/dL (NEG-TRACE) Urine Glucose (UA) Negative mg/dL (NEG) Urine Ketones (Stick) Negative mg/dL (NEG) Urine Blood Negative (NEG) Urine Nitrite Negative (NEG) Urine Bilirubin Negative (NEG) Urine Urobilinogen Dipstick 0.2 mg/dL (0.2 mg/dL) Urine Leukocyte Esterase Negative (NEG) Urine RBC 0 /HPF (0-2) Urine WBC 0 /HPF (0-4) Urine Squamous Epithelial Cells None /LPF Urine Bacteria 0 /HPF (0-FEW) Urine Hyaline Casts Few /HPF Urine Mucus Slight /LPF Urine Opiates Screen Pos (NEG) Urine Methadone Screen Neg (NEG) Urine Barbiturates Neg (NEG) Urine Phencyclidine Screen Neg (NEG) Urine Amphetamine/Methamphetamine Neg (NEG) Urine Benzodiazepines Screen Neg (NEG) Urine Cocaine Screen Neg (NEG) Urine Cannabinoids Screen Neg (NEG) Urine Ethyl Alcohol Neg (NEG) Glucose (Fingerstick) 215 mg/dL (70-99) Neutrophils (%) (Auto) 74 % (31-73) Lymphocytes (%) (Auto) 11 % (24-48) Monocytes (%) (Auto) 9 % (0-9) Eosinophils (%) (Auto) 5 % (0-3) Basophils (%) (Auto) 1 % (0-3) Neutrophils # (Auto) 5.1 x10^3uL (1.8-7.7) Lymphocytes # (Auto) 0.8 x10^3/uL (1.0-4.8) Monocytes # (Auto) 0.6 x10^3/uL (0.0-1.1) Eosinophils # (Auto) 0.3 x10^3/uL (0.0-0.7) Basophils # (Auto) 0.0 x10^3/uL (0.0-0.2) BUN/Creatinine Ratio 15 (6-20) Total Bilirubin 0.5 mg/dL (0.2-1.0) Aspartate Amino Transf (AST/SGOT) 15 U/L (15-37) Alanine Aminotransferase (ALT/SGPT) 15 U/L (16-63) Alkaline Phosphatase 76 U/L (46-116) Total Protein 7.4 g/dL (6.4-8.2) Albumin 2.7 g/dL (3.4-5.0) Albumin/Globulin Ratio 0.6 (1.0-1.7) Triglycerides Level 78 mg/dL (0-150) Cholesterol Level 127 mg/dL (0-200) LDL Cholesterol, Calculated 71 mg/dL (0-100) VLDL Cholesterol, Calculated 16 mg/dL (0-40) Non-HDL Cholesterol Calculated 87 mg/dL (0-129) HDL Cholesterol 40 mg/dL (40-60) Cholesterol/HDL Ratio 3.2 Test 03/12/17 07:21 Glucose (Fingerstick) 172 mg/dL (70-99) Laboratory Tests Test 03/11/17 15:40 03/11/17 18:00 03/11/17 21:55 03/12/17 04:30 White Blood Count 7.8 x10^3/uL (4.0-11.0) 6.9 x10^3/uL (4.0-11.0) Red Blood Count 2.23 x10^6/uL (4.30-5.70) 2.39 x10^6/uL (4.30-5.70) Hemoglobin 7.1 g/dL (13.0-17.5) 7.4 g/dL (13.0-17.5) Hematocrit 20.2 % (39.0-53.0) 22.1 % (39.0-53.0) Mean Corpuscular Volume 91 fL (79-100) 93 fL (79-100) Mean Corpuscular Hemoglobin 32 pg (25-35) 31 pg (25-35) Mean Corpuscular Hemoglobin Concent 35 g/dL (31-37) 33 g/dL (31-37) Red Cell Distribution Width 16.9 % (11.5-14.5) 16.7 % (11.5-14.5) Platelet Count 166 x10^3/uL (140-400) 158 x10^3/uL (140-400) Prothrombin Time 15.5 SEC (11.7-14.0) Prothromb Time International Ratio 1.3 (0.8-1.1) Activated Partial Thromboplast Time 33 SEC (24-38) Sodium Level 143 mmol/L (136-145) 145 mmol/L (136-145) Potassium Level 3.8 mmol/L (3.5-5.1) 3.8 mmol/L (3.5-5.1) Chloride Level 106 mmol/L (98-107) 107 mmol/L (98-107) Carbon Dioxide Level 26 mmol/L (21-32) 27 mmol/L (21-32) Anion Gap 11 (6-14) 11 (6-14) Blood Urea Nitrogen 22 mg/dL (8-26) 21 mg/dL (8-26) Creatinine 1.6 mg/dL (0.7-1.3) 1.4 mg/dL (0.7-1.3) Estimated GFR (Cockcroft-Gault) 43.9 51.2 Glucose Level 168 mg/dL (70-99) 203 mg/dL (70-99) Calcium Level 9.0 mg/dL (8.5-10.1) 9.4 mg/dL (8.5-10.1) Troponin I Quantitative < 0.017 ng/mL (0.000-0.055) Vitamin B12 Level 421 pg/mL (247-911) Thyroid Stimulating Hormone (TSH) 1.245 uIU/mL (0.358-3.74) Urine Collection Type Unknown Urine Color Yellow Urine Clarity Clear Urine pH 5.5 Urine Specific Holden 1.015 Urine Protein Negative mg/dL (NEG-TRACE) Urine Glucose (UA) Negative mg/dL (NEG) Urine Ketones (Stick) Negative mg/dL (NEG) Urine Blood Negative (NEG) Urine Nitrite Negative (NEG) Urine Bilirubin Negative (NEG) Urine Urobilinogen Dipstick 0.2 mg/dL (0.2 mg/dL) Urine Leukocyte Esterase Negative (NEG) Urine RBC 0 /HPF (0-2) Urine WBC 0 /HPF (0-4) Urine Squamous Epithelial Cells None /LPF Urine Bacteria 0 /HPF (0-FEW) Urine Hyaline Casts Few /HPF Urine Mucus Slight /LPF Urine Opiates Screen Pos (NEG) Urine Methadone Screen Neg (NEG) Urine Barbiturates Neg (NEG) Urine Phencyclidine Screen Neg (NEG) Urine Amphetamine/Methamphetamine Neg (NEG) Urine Benzodiazepines Screen Neg (NEG) Urine Cocaine Screen Neg (NEG) Urine Cannabinoids Screen Neg (NEG) Urine Ethyl Alcohol Neg (NEG) Glucose (Fingerstick) 215 mg/dL (70-99) Neutrophils (%) (Auto) 74 % (31-73) Lymphocytes (%) (Auto) 11 % (24-48) Monocytes (%) (Auto) 9 % (0-9) Eosinophils (%) (Auto) 5 % (0-3) Basophils (%) (Auto) 1 % (0-3) Neutrophils # (Auto) 5.1 x10^3uL (1.8-7.7) Lymphocytes # (Auto) 0.8 x10^3/uL (1.0-4.8) Monocytes # (Auto) 0.6 x10^3/uL (0.0-1.1) Eosinophils # (Auto) 0.3 x10^3/uL (0.0-0.7) Basophils # (Auto) 0.0 x10^3/uL (0.0-0.2) BUN/Creatinine Ratio 15 (6-20) Total Bilirubin 0.5 mg/dL (0.2-1.0) Aspartate Amino Transf (AST/SGOT) 15 U/L (15-37) Alanine Aminotransferase (ALT/SGPT) 15 U/L (16-63) Alkaline Phosphatase 76 U/L (46-116) Total Protein 7.4 g/dL (6.4-8.2) Albumin 2.7 g/dL (3.4-5.0) Albumin/Globulin Ratio 0.6 (1.0-1.7) Triglycerides Level 78 mg/dL (0-150) Cholesterol Level 127 mg/dL (0-200) LDL Cholesterol, Calculated 71 mg/dL (0-100) VLDL Cholesterol, Calculated 16 mg/dL (0-40) Non-HDL Cholesterol Calculated 87 mg/dL (0-129) HDL Cholesterol 40 mg/dL (40-60) Cholesterol/HDL Ratio 3.2 Test 03/12/17 07:21 Glucose (Fingerstick) 172 mg/dL (70-99) Medications Current Medications Diphenhydramine HCl (Benadryl) 50 mg 1X ONCE IVP Last administered on 17:11; Start 03/11/17 at 15:30; Stop 03/11/17 at 15:32; Status DC Ondansetron HCl (Zofran) 4 mg PRN Q8HRS PRN IV NAUSEA/VOMITING; Start 03/11/17 at 18:30; Stop 03/12/17 at 18:29 Morphine Sulfate 4 mg PRN Q2HR PRN IV PAIN; Start 03/11/17 at 18:30; Stop 03/12 at 18:29 Acetaminophen (Tylenol) 650 mg PRN Q4HRS PRN PO FEVER; Start 03/11/17 at 18:30 ; Stop 03/12/17 at 18:29 Clopidogrel Bisulfate (Plavix) 75 mg 1X ONCE PO Last administered on 18:48; Start 03/11/17 at 18:30; Stop 03/11/17 at 18:31; Status DC Aspirin (Omkar Aspirin) 325 mg DAILY PO ; Start 03/12/17 at 09:00 Atorvastatin Calcium (Lipitor) 20 mg QHS PO ; Start 03/11/17 at 21:00 Celecoxib (CeleBREX) 200 mg BID PO ; Start 03/11/17 at 21:00 Vitamin D (Vitamin D3) 1,000 unit DAILY PO ; Start 03/12/17 at 09:00 Clopidogrel Bisulfate (Plavix) 75 mg DAILY PO ; Start 03/12/17 at 09:00 Docusate Sodium (Colace) 100 mg DAILY PO ; Start 03/12/17 at 09:00 Fentanyl (Duragesic 75mcg/ Hr Patch) 1 patch Q3DAYS TD ; Start 03/12/17 at 09:00 Acetaminophen/ Hydrocodone Bitart (Lortab 7.5/325) 1 tab PRN Q4HRS PRN PO MODERATE PAIN; Start 03/11/17 at 19:30 Losartan Potassium (Cozaar) 50 mg DAILY PO ; Start 03/12/17 at 09:00 Metformin HCl (Glucophage) 500 mg BIDWMEALS PO ; Start 03/12/17 at 08:00 Pantoprazole Sodium (Protonix) 40 mg DAILYAC PO ; Start 03/12/17 at 07:30 Tamsulosin HCl (Flomax) 0.4 mg BID PO ; Start 03/11/17 at 21:00 Tamsulosin HCl (Flomax) 0.4 mg HS PO ; Start 03/11/17 at 21:00; Status UNV Citalopram Hydrobromide (CeleXA) 40 mg DAILY PO ; Start 03/12/17 at 09:00 Gabapentin (Neurontin) 300 mg BID PO ; Start 03/11/17 at 21:00 Insulin Detemir (Levemir) 22 units QHS SQ Last administered on 03/11/17 22:51 ; Start 03/11/17 at 21:00 Non-Formulary Medication 3.375 gm Q6HRS IV ; Start 03/12/17 at 00:00; Status UNV Insulin Aspart (NovoLOG) TIDWMEALS SQ ; Start 03/12/17 at 08:00 Dextrose (Dextrose 50%-Water Syringe) 12.5 gm PRN Q15MIN PRN IV SEE COMMENTS; Start 03/11/17 at 19:30 Piperacillin Sod/ Tazobactam Sod 3.375 gm/Sodium Chloride 50 ml @ 100 mls/hr Q6HRS IV Last administered on 03/12/17 06:08; Start 03/12/17 at 00:00 Hydromorphone HCl (Dilaudid) 0.5 mg PRN Q3HRS PRN IVP SEVERE PAIN Last administered on 03/12/17 07:55; Start 03/11/17 at 23:15 Albuterol/ Ipratropium (Duoneb) 3 ml RTQID NEB Last administered on 03/12/17 07:22; Start 03/12/17 at 08:00 Albuterol Sulfate (Ventolin Neb Soln) 2.5 mg PRN Q4HRS PRN NEB SHORTNESS OF BREATH; Start 03/12/17 at 06:00 Active Scripts Active Hydrocodone-Apap 7.5-325 (Hydrocodone Bit/Acetaminophen) 1 Each Tablet 1 Tab PO PRN Q4HRS PRN Reported Tamsulosin Hcl 0.4 Mg Cap.er.24h 1 Cap PO DAILY Zosyn 3.375 Gm Galaxy Bag (Fxbqfhqnxioc-Uxov-Dbtriksx,Iso) 3.375 Gm/50 Ml Froz.piggy 3.375 Gm IV Q6HRS Novolog (Insulin Aspart) 100 Unit/1 Ml Cartridge 15 Unit SQ TIDAC Pantoprazole Sodium 40 Mg Tablet.dr 40 Mg PO DAILY Levemir (Insulin Detemir) 100 Unit/1 Ml Vial 22 Unit SQ HS FENTANYL 75mcg/hr (Fentanyl) 1 Each Patch.td72 1 Patch TP Q3DAYS Colace (Docusate Sodium) 100 Mg Capsule 1 Cap PO DAILY Aspirin 325 Mg Tablet 1 Tab PO DAILY Vitamin D3 (Cholecalciferol (Vitamin D3)) 1,000 Unit Tablet 1 Tab PO DAILY Losartan Potassium 50 Mg Tablet 50 Mg PO DAILY Gabapentin 300 Mg Capsule 300 Mg PO BID Celebrex (Celecoxib) 200 Mg Capsule 200 Mg PO BID 30 Days Citalopram Hbr (Citalopram Hydrobromide) 40 Mg Tablet 40 Mg PO DAILY Lipitor (Atorvastatin Calcium) 20 Mg Tablet 20 Mg PO QHS Flomax (Tamsulosin Hcl) 0.4 Mg Cap.er.24h 0.4 Mg PO HS Metformin Hcl 500 Mg Tablet 500 Mg PO BID Plavix (Clopidogrel Bisulfate) 75 Mg Tablet 75 Mg PO DAILY Vitals/I & O Vital Sign - Last 24 Hours 03/11/17 03/11/17 03/11/17 03/11/17 14:41 17:14 17:30 18:01 Temp 98.0 98.0 Pulse 89 93 96 94 Resp 22 22 22 B/P (MAP) 152/72 (98) 140/72 (94) 159/83 (108) 147/79 (101) Pulse Ox 87 95 96 95 O2 Delivery Room Air Nasal Cannula Nasal Cannula O2 Flow Rate 2.0 2.0 2.0 03/11/17 03/11/17 03/11/17 03/11/17 18:50 19:00 19:30 20:25 Temp 97.9 97.9 Pulse 97 94 94 97 Resp 22 22 18 20 B/P (MAP) 161/90 (113) 161/93 (115) 167/103 (124) 130/74 (92) Pulse Ox 93 91 90 95 O2 Delivery Nasal Cannula O2 Flow Rate 2.0 03/11/17 03/11/17 03/11/17 03/12/17 20:30 23:10 23:44 00:14 Temp 98.0 98.0 Pulse 101 Resp 20 B/P (MAP) 140/78 (98) Pulse Ox 95 O2 Delivery Nasal Cannula Nasal Cannula Room Air Nasal Cannula O2 Flow Rate 2.0 2.0 2.0 03/12/17 03/12/17 03/12/17 03/12/17 03:10 07:00 07:22 07:55 Temp 97.9 97.7 97.9 97.7 Pulse 97 95 Resp 20 20 B/P (MAP) 151/78 (102) 128/54 (78) Pulse Ox 91 94 94 94 O2 Delivery Nasal Cannula Nasal Cannula Room Air Nasal Cannula O2 Flow Rate 2.0 2.0 2.0 PRATIBHA FATIMA III DO Mar 12, 2017 10:08
[2017-03-12 11:00] VITALS: BP 138/60
--- NOTE | 2017-03-12 12:22 | CARD ---
APPROVED REPORT EXAM: Two-dimensional and M-mode echocardiogram with Doppler and color Doppler. Other Information Quality : GoodHR: 87bpm Rhythm : NSR INDICATION CVA syndrome Echo Enhancing Agent Indication: Rule Out Septal Defect Agent/Amount Used: Agitated Saline 8mL RISK FACTORS Obesity 2D DIMENSIONS RVDd2.9 (2.9-3.5cm)Left Atrium(2D)5.4 (1.6-4.0cm) IVSd0.9 (0.7-1.1cm)Aortic Root(2D)2.8 (2.0-3.7cm) LVDd6.6 (3.9-5.9cm)LVOT Diameter2.5 (1.8-2.4cm) PWd1.0 (0.7-1.1cm)LVDs3.7 (2.5-4.0cm) FS (%) 42.9 %SV160.2 ml LVEF(%)72.9 (>50%) Aortic Valve AoV Peak Gama.175.0cm/sAoV VTI32.0cm AO Peak GR.12.2mmHgLVOT Peak Gama.109.0cm/s AO Mean GR.6mmHgAVA (VMAX)3.01cm2 Mitral Valve MV E Mpnvsjeo327.6cm/sMV DECEL [id number] MV A Hhovgdnu999.3cm/sE/A Ratio0.9 MV A [id number] Pulmonary Valve PV Peak Mlebtjst29.8cm/s Pulmonary Vein S1 Zimlcvft58.9cm/sD2 Eybwoooy88.0cm/s PVa [id number] LEFT VENTRICLE The Left Ventricle is mildly dilated. There is normal left ventricular wall thickness. The left ventr icular systolic function is normal and the ejection fraction is within normal range. The Ejection Fra ction is 60-65%. There is normal LV segmental wall motion. Transmitral Doppler flow pattern is Grade I-abnormal relaxation pattern. RIGHT VENTRICLE The right ventricle is normal size. There is normal right ventricular wall thickness. The right ventr icular systolic function is normal. ATRIA The left atrium is mildly dilated. The right atrium size is normal. The interatrial septum is intact with no evidence for an atrial septal defect or patent foramen ovale as noted on 2-D or Doppler imagi ng. Injection of agitated saline bubbles documented no interatrial shunt. AORTIC VALVE The aortic valve is not well visualized but appears mildly calcified and opens adequately. Doppler an d Color Flow revealed no significant aortic regurgitation. There is no significant aortic valvular st enosis. MITRAL VALVE Mitral annular calcification is mild. The mitral valve leaflets are thickened. There is no evidence o f mitral valve prolapse. There is no mitral valve stenosis. Doppler and Color Flow revealed trace leslie ral regurgitation. TRICUSPID VALVE Doppler and Color Flow revealed trace tricuspid regurgitation. PULMONIC VALVE The pulmonic valve is not well visualized but appears to open adequately. Doppler and Color Flow reve aled no pulmonic valvular regurgitation. There is no pulmonic valvular stenosis by spectral Doppler. GREAT VESSELS The aortic root is normal in size. The ascending aorta is normal in size. The pulmonary artery is nor mal. The IVC is normal in size and collapses >50% with inspiration. PERICARDIAL EFFUSION There is no evidence of significant pericardial effusion. Critical Notification Critical Value: No <Conclusion> The Left Ventricle is mildly dilated. The left ventricular systolic function is normal and the ejection fraction is within normal range. The Ejection Fraction is 60-65%. There is normal left ventricular wall thickness. The interatrial septum is intact with no evidence for an atrial septal defect or patent foramen ovale as noted on 2-D or Doppler imaging. Injection of agitated saline bubbles documented no interatrial shunt. There is no significant aortic valvular stenosis. Doppler and Color Flow revealed no significant aortic regurgitation. Doppler and Color Flow revealed trace mitral regurgitation. Doppler and Color Flow revealed trace tricuspid regurgitation.
--- NOTE | 2017-03-12 13:15 | PDOC ---
Infectious Disease Note Vital Sign Vital Signs Vital Signs Date Time Temp Pulse Resp B/P (MAP) Pulse Ox O2 Delivery O2 Flow Rate FiO2 03/12/17 11:38 Room Air 03/12/17 11:00 96.3 86 20 138/60 (86) 97 2.0 96.3 Labs Lab Laboratory Tests Test 03/11/17 15:40 03/11/17 18:00 03/11/17 21:55 03/12/17 04:30 White Blood Count 7.8 x10^3/uL (4.0-11.0) 6.9 x10^3/uL (4.0-11.0) Red Blood Count 2.23 x10^6/uL (4.30-5.70) 2.39 x10^6/uL (4.30-5.70) Hemoglobin 7.1 g/dL (13.0-17.5) 7.4 g/dL (13.0-17.5) Hematocrit 20.2 % (39.0-53.0) 22.1 % (39.0-53.0) Mean Corpuscular Volume 91 fL (79-100) 93 fL (79-100) Mean Corpuscular Hemoglobin 32 pg (25-35) 31 pg (25-35) Mean Corpuscular Hemoglobin Concent 35 g/dL (31-37) 33 g/dL (31-37) Red Cell Distribution Width 16.9 % (11.5-14.5) 16.7 % (11.5-14.5) Platelet Count 166 x10^3/uL (140-400) 158 x10^3/uL (140-400) Prothrombin Time 15.5 SEC (11.7-14.0) Prothromb Time International Ratio 1.3 (0.8-1.1) Activated Partial Thromboplast Time 33 SEC (24-38) Sodium Level 143 mmol/L (136-145) 145 mmol/L (136-145) Potassium Level 3.8 mmol/L (3.5-5.1) 3.8 mmol/L (3.5-5.1) Chloride Level 106 mmol/L (98-107) 107 mmol/L (98-107) Carbon Dioxide Level 26 mmol/L (21-32) 27 mmol/L (21-32) Anion Gap 11 (6-14) 11 (6-14) Blood Urea Nitrogen 22 mg/dL (8-26) 21 mg/dL (8-26) Creatinine 1.6 mg/dL (0.7-1.3) 1.4 mg/dL (0.7-1.3) Estimated GFR (Cockcroft-Gault) 43.9 51.2 Glucose Level 168 mg/dL (70-99) 203 mg/dL (70-99) Calcium Level 9.0 mg/dL (8.5-10.1) 9.4 mg/dL (8.5-10.1) Troponin I Quantitative < 0.017 ng/mL (0.000-0.055) Vitamin B12 Level 421 pg/mL (247-911) Thyroid Stimulating Hormone (TSH) 1.245 uIU/mL (0.358-3.74) Urine Collection Type Unknown Urine Color Yellow Urine Clarity Clear Urine pH 5.5 Urine Specific [place] 1.015 Urine Protein Negative mg/dL (NEG-TRACE) Urine Glucose (UA) Negative mg/dL (NEG) Urine Ketones (Stick) Negative mg/dL (NEG) Urine Blood Negative (NEG) Urine Nitrite Negative (NEG) Urine Bilirubin Negative (NEG) Urine Urobilinogen Dipstick 0.2 mg/dL (0.2 mg/dL) Urine Leukocyte Esterase Negative (NEG) Urine RBC 0 /HPF (0-2) Urine WBC 0 /HPF (0-4) Urine Squamous Epithelial Cells None /LPF Urine Bacteria 0 /HPF (0-FEW) Urine Hyaline Casts Few /HPF Urine Mucus Slight /LPF Urine Opiates Screen Pos (NEG) Urine Methadone Screen Neg (NEG) Urine Barbiturates Neg (NEG) Urine Phencyclidine Screen Neg (NEG) Urine Amphetamine/Methamphetamine Neg (NEG) Urine Benzodiazepines Screen Neg (NEG) Urine Cocaine Screen Neg (NEG) Urine Cannabinoids Screen Neg (NEG) Urine Ethyl Alcohol Neg (NEG) Glucose (Fingerstick) 215 mg/dL (70-99) Neutrophils (%) (Auto) 74 % (31-73) Lymphocytes (%) (Auto) 11 % (24-48) Monocytes (%) (Auto) 9 % (0-9) Eosinophils (%) (Auto) 5 % (0-3) Basophils (%) (Auto) 1 % (0-3) Neutrophils # (Auto) 5.1 x10^3uL (1.8-7.7) Lymphocytes # (Auto) 0.8 x10^3/uL (1.0-4.8) Monocytes # (Auto) 0.6 x10^3/uL (0.0-1.1) Eosinophils # (Auto) 0.3 x10^3/uL (0.0-0.7) Basophils # (Auto) 0.0 x10^3/uL (0.0-0.2) BUN/Creatinine Ratio 15 (6-20) Total Bilirubin 0.5 mg/dL (0.2-1.0) Aspartate Amino Transf (AST/SGOT) 15 U/L (15-37) Alanine Aminotransferase (ALT/SGPT) 15 U/L (16-63) Alkaline Phosphatase 76 U/L (46-116) Total Protein 7.4 g/dL (6.4-8.2) Albumin 2.7 g/dL (3.4-5.0) Albumin/Globulin Ratio 0.6 (1.0-1.7) Triglycerides Level 78 mg/dL (0-150) Cholesterol Level 127 mg/dL (0-200) LDL Cholesterol, Calculated 71 mg/dL (0-100) VLDL Cholesterol, Calculated 16 mg/dL (0-40) Non-HDL Cholesterol Calculated 87 mg/dL (0-129) HDL Cholesterol 40 mg/dL (40-60) Cholesterol/HDL Ratio 3.2 Test 03/12/17 07:21 03/12/17 11:00 Glucose (Fingerstick) 172 mg/dL (70-99) 172 mg/dL (70-99) Objective Assessment Left ankle infection Left foot infection Rt calcaneal Encephalopathy DM Plan Plan of Care cont leg elevation zosyn supportive care likely will need BKA, though he absolutely refuses ROLANDO RUIZ MD Mar 12, 2017 13:15
[2017-03-12] MEDS: GABAPENTIN 300 MG CAPSULE. PO SCH ×2 (13:33→20:41)
[2017-03-12] MEDS: TAMSULOSIN 0.4 MG CAP.ER.24H. PO SCH ×2 (13:33→20:41)
[2017-03-12] MEDS: CITALOPRAM 20 MG TABLET. PO SCH (13:33)
[2017-03-12] MEDS: CELECOXIB 200 MG CAPSULE. PO SCH ×2 (13:34→20:41)
[2017-03-12] MEDS: LOSARTAN POTASSIUM 50 MG TABLET. PO SCH (13:34)
[2017-03-12] MEDS: CHOLECALCIFEROL (VITAMIN D3) 1,000 UNIT TABLET PO SCH (13:34)
[2017-03-12] MEDS: PANTOPRAZOLE 40 MG TABLET.DR. PO SCH (13:34)
[2017-03-12] MEDS: DOCUSATE SODIUM 100 MG CAPSULE. PO SCH (13:35)
[2017-03-12] MEDS: ASPIRIN 325 MG TABLET PO SCH (13:35)
[2017-03-12] MEDS: CLOPIDOGREL BISULFATE 75 MG TABLET PO SCH (13:35)
[2017-03-12] MEDS: fentaNYL 75MCG/HR PATCH 1 PATCH PATCH.TD72 TD SCH (13:37)
--- NOTE | 2017-03-12 14:53 | PDOC2 ---
NEUROLOGY CONSULT Date of Admission Date of Admission DATE: 03/12/17 TIME: 14:37 Reason for Consult Reason for Consult: 03-11-17 IMPRESSION: Speech problem. CVA symptoms? Metabolic encephalopathy. Cognitive impairment, Narcotics side effects. Fall DM HTN HLD Renal failure. Wound, left ankle. Chronic left ankle fracture. Carotid A stenosis < 69%. Anemia. Morbid obesity. Doubted acute stroke. RECOMMENDATIONS/PLAN: Continue Plavix 75 mg daily. Continue ASA daily. Continue Lipitor HS. Treat medical diseases. OT/PT. HISTORY OF THE PRESENT ILLNESS: 62-y-old male patient with above medical diseases had left ankle fracture about 8 weeks ago and received surgery, but his wound still persistent and has not been able to walk. He was in wheel chair and was trying to reach object in sink but he fell off wheelchair. He was found to have some mental status changes and speech problem to be brought to the ER of [facility]. Stat MRI was performed but was uncertain whether a stroke or artifact. However, he received all stroke evaluation and treatment. He talked normal since in the hospital. He stated his speech came back after midnight. No motor or sensory deficits. Past Medical History: CVA, Depression, Diabetes-Type II, GERD, High Cholesterol , Hypertension, charcoit foot, NEUROPATHY, SLEEP APNEA Past Surgical History: Cholecystectomy, right foot surgery, hemmorhoid surgery , non-descended testicle, hernia, R K ALLERGY: Reviewed. MEDICATIONS: Refer to [facility] FAMILY HISTORY: Non contributory. SOCIAL HISTORY: From Rehab facility. Lives with his at home before. Denies current smoking, drinking, and illicit drug use. REVIEW OF SYSTEMS: Constitutional: Morbid obesity. Head: No recent traumatic brain or head injury. Skin: No edema, or rash. Ear: No infection, tinnitus. Eyes: No vision loss or color blindness. Nose: No bleeding or purulent discharges. Hearing: Hearing decrease. Neck: No recent injury. Cardiac: HTN, HLD. Pulmonary: No COPD. GI: No GI ulcer, GI bleeding. Urinary/genital: UTI. Endocrinologic: Diabetes Mellitus, morbid obesity. Skeletomuscular: Left ankle fracture. Neurological: see HP. Psychiatric: Denies drug use/abuse. Otherwise, not [id number] review of systems. PHYSICAL EXAMINATION: General appearance is in subacute distress. HEENT: Normocephalic and nontraumatic. Eyes, nose, ears, and throat are unremarkable. Neck is supple. No lymphadenopathy. No bruits are heard over the carotid artery. No crepitus. Cardiovascular: S1, S2, regular rate and rhythm. Pulmonary: Clear to auscultation bilaterally. Abdomen: Bowel sounds are positive. Extremities: No rash, lesions, or edema. No restriction of range of motion NEUROLOGICAL EXAMINATION: Drowsiness. Restless. Agitated. Confused. Not oriented to time, place and person. PERRL. EOMI. CN: no focal findings. Muscle tone: within normal. Muscle strength: 5 DTR: 1+ Plantar reflex: Flexor response bilaterally Gait: not examined in bed. Sensory exam: withdraw to stimuli. Not able to access cerebellar signs. F-T-N test not performed due to not follow commands. Current Medications Current Medications Current Medications Diphenhydramine HCl (Benadryl) 50 mg 1X ONCE IVP Last administered on 17:11; Start 03/11/17 at 15:30; Stop 03/11/17 at 15:32; Status DC Ondansetron HCl (Zofran) 4 mg PRN Q8HRS PRN IV NAUSEA/VOMITING; Start 03/11/17 at 18:30; Stop 03/12/17 at 18:29 Morphine Sulfate 4 mg PRN Q2HR PRN IV PAIN; Start 03/11/17 at 18:30; Stop 03/12 at 18:29 Acetaminophen (Tylenol) 650 mg PRN Q4HRS PRN PO FEVER; Start 03/11/17 at 18:30 ; Stop 03/12/17 at 18:29 Clopidogrel Bisulfate (Plavix) 75 mg 1X ONCE PO Last administered on 18:48; Start 03/11/17 at 18:30; Stop 03/11/17 at 18:31; Status DC Aspirin (Omkar Aspirin) 325 mg DAILY PO Last administered on 03/12/17 13:35; Start 03/12/17 at 09:00 Atorvastatin Calcium (Lipitor) 20 mg QHS PO ; Start 03/11/17 at 21:00 Celecoxib (CeleBREX) 200 mg BID PO Last administered on 03/12/17 13:34; Start 03/11/17 at 21:00 Vitamin D (Vitamin D3) 1,000 unit DAILY PO Last administered on 03/12/17 13:34 ; Start 03/12/17 at 09:00 Clopidogrel Bisulfate (Plavix) 75 mg DAILY PO Last administered on 03/12/17 13 :35; Start 03/12/17 at 09:00 Docusate Sodium (Colace) 100 mg DAILY PO Last administered on 03/12/17 13:35; Start 03/12/17 at 09:00 Fentanyl (Duragesic 75mcg/ Hr Patch) 1 patch Q3DAYS TD Last administered on 13:37; Start 03/12/17 at 09:00 Acetaminophen/ Hydrocodone Bitart (Lortab 7.5/325) 1 tab PRN Q4HRS PRN PO MODERATE PAIN; Start 03/11/17 at 19:30 Losartan Potassium (Cozaar) 50 mg DAILY PO Last administered on 03/12/17 13:34 ; Start 03/12/17 at 09:00 Metformin HCl (Glucophage) 500 mg BIDWMEALS PO ; Start 03/12/17 at 08:00 Pantoprazole Sodium (Protonix) 40 mg DAILYAC PO Last administered on 03/12/17 13:34; Start 03/12/17 at 07:30 Tamsulosin HCl (Flomax) 0.4 mg BID PO Last administered on 03/12/17 13:33; Start 03/11/17 at 21:00 Tamsulosin HCl (Flomax) 0.4 mg HS PO ; Start 03/11/17 at 21:00; Status UNV Citalopram Hydrobromide (CeleXA) 40 mg DAILY PO Last administered on 03/12/17 13:33; Start 03/12/17 at 09:00 Gabapentin (Neurontin) 300 mg BID PO Last administered on 03/12/17 13:33; Start 03/11/17 at 21:00 Insulin Detemir (Levemir) 22 units QHS SQ Last administered on 03/11/17 22:51 ; Start 03/11/17 at 21:00 Non-Formulary Medication 3.375 gm Q6HRS IV ; Start 03/12/17 at 00:00; Status UNV Insulin Aspart (NovoLOG) TIDWMEALS SQ ; Start 03/12/17 at 08:00 Dextrose (Dextrose 50%-Water Syringe) 12.5 gm PRN Q15MIN PRN IV SEE COMMENTS; Start 03/11/17 at 19:30 Piperacillin Sod/ Tazobactam Sod 3.375 gm/Sodium Chloride 50 ml @ 100 mls/hr Q6HRS IV Last administered on 03/12/17 13:49; Start 03/12/17 at 00:00 Hydromorphone HCl (Dilaudid) 0.5 mg PRN Q3HRS PRN IVP SEVERE PAIN Last administered on 03/12/17 07:55; Start 03/11/17 at 23:15 Albuterol/ Ipratropium (Duoneb) 3 ml RTQID NEB Last administered on 03/12/17 11:38; Start 03/12/17 at 08:00 Albuterol Sulfate (Ventolin Neb Soln) 2.5 mg PRN Q4HRS PRN NEB SHORTNESS OF BREATH; Start 03/12/17 at 06:00 Active Scripts Active Hydrocodone-Apap 7.5-325 (Hydrocodone Bit/Acetaminophen) 1 Each Tablet 1 Tab PO PRN Q4HRS PRN Reported Tamsulosin Hcl 0.4 Mg Cap.er.24h 1 Cap PO DAILY Zosyn 3.375 Gm Galaxy Bag (Aekwcbnheifn-Yqyk-Nlqnwkiw,Iso) 3.375 Gm/50 Ml Froz.piggy 3.375 Gm IV Q6HRS Novolog (Insulin Aspart) 100 Unit/1 Ml Cartridge 15 Unit SQ TIDAC Pantoprazole Sodium 40 Mg Tablet.dr 40 Mg PO DAILY Levemir (Insulin Detemir) 100 Unit/1 Ml Vial 22 Unit SQ HS FENTANYL 75mcg/hr (Fentanyl) 1 Each Patch.td72 1 Patch TP Q3DAYS Colace (Docusate Sodium) 100 Mg Capsule 1 Cap PO DAILY Aspirin 325 Mg Tablet 1 Tab PO DAILY Vitamin D3 (Cholecalciferol (Vitamin D3)) 1,000 Unit Tablet 1 Tab PO DAILY Losartan Potassium 50 Mg Tablet 50 Mg PO DAILY Gabapentin 300 Mg Capsule 300 Mg PO BID Celebrex (Celecoxib) 200 Mg Capsule 200 Mg PO BID 30 Days Citalopram Hbr (Citalopram Hydrobromide) 40 Mg Tablet 40 Mg PO DAILY Lipitor (Atorvastatin Calcium) 20 Mg Tablet 20 Mg PO QHS Flomax (Tamsulosin Hcl) 0.4 Mg Cap.er.24h 0.4 Mg PO HS Metformin Hcl 500 Mg Tablet 500 Mg PO BID Plavix (Clopidogrel Bisulfate) 75 Mg Tablet 75 Mg PO DAILY Allergies Allergies: Coded Allergies: morphine (Verified Allergy, Intermediate, 02/19/17) causes hallucinations Vitals VITALS Vital Signs Date Time Temp Pulse Resp B/P (MAP) Pulse Ox O2 Delivery O2 Flow Rate FiO2 03/12/17 13:55 97 Nasal Cannula 2.0 03/12/17 13:34 86 138/60 03/12/17 11:00 96.3 20 96.3 Labs Labs Laboratory Tests Test 03/11/17 15:40 03/11/17 18:00 03/11/17 21:55 03/11/17 22:30 White Blood Count 7.8 x10^3/uL (4.0-11.0) Red Blood Count 2.23 x10^6/uL (4.30-5.70) Hemoglobin 7.1 g/dL (13.0-17.5) Hematocrit 20.2 % (39.0-53.0) Mean Corpuscular Volume 91 fL (79-100) Mean Corpuscular Hemoglobin 32 pg (25-35) Mean Corpuscular Hemoglobin Concent 35 g/dL (31-37) Red Cell Distribution Width 16.9 % (11.5-14.5) Platelet Count 166 x10^3/uL (140-400) Prothrombin Time 15.5 SEC (11.7-14.0) Prothromb Time International Ratio 1.3 (0.8-1.1) Activated Partial Thromboplast Time 33 SEC (24-38) Sodium Level 143 mmol/L (136-145) Potassium Level 3.8 mmol/L (3.5-5.1) Chloride Level 106 mmol/L (98-107) Carbon Dioxide Level 26 mmol/L (21-32) Anion Gap 11 (6-14) Blood Urea Nitrogen 22 mg/dL (8-26) Creatinine 1.6 mg/dL (0.7-1.3) Estimated GFR (Cockcroft-Gault) 43.9 Glucose Level 168 mg/dL (70-99) Calcium Level 9.0 mg/dL (8.5-10.1) Troponin I Quantitative < 0.017 ng/mL (0.000-0.055) Vitamin B12 Level 421 pg/mL (247-911) Thyroid Stimulating Hormone (TSH) 1.245 uIU/mL (0.358-3.74) Urine Collection Type Unknown Urine Color Yellow Urine Clarity Clear Urine pH 5.5 Urine Specific [place] 1.015 Urine Protein Negative mg/dL (NEG-TRACE) Urine Glucose (UA) Negative mg/dL (NEG) Urine Ketones (Stick) Negative mg/dL (NEG) Urine Blood Negative (NEG) Urine Nitrite Negative (NEG) Urine Bilirubin Negative (NEG) Urine Urobilinogen Dipstick 0.2 mg/dL (0.2 mg/dL) Urine Leukocyte Esterase Negative (NEG) Urine RBC 0 /HPF (0-2) Urine WBC 0 /HPF (0-4) Urine Squamous Epithelial Cells None /LPF Urine Bacteria 0 /HPF (0-FEW) Urine Hyaline Casts Few /HPF Urine Mucus Slight /LPF Urine Opiates Screen Pos (NEG) Urine Methadone Screen Neg (NEG) Urine Barbiturates Neg (NEG) Urine Phencyclidine Screen Neg (NEG) Urine Amphetamine/Methamphetamine Neg (NEG) Urine Benzodiazepines Screen Neg (NEG) Urine Cocaine Screen Neg (NEG) Urine Cannabinoids Screen Neg (NEG) Urine Ethyl Alcohol Neg (NEG) Glucose (Fingerstick) 215 mg/dL (70-99) Nasal Screen MRSA (PCR) Negative (Negative) Test 03/12/17 04:30 03/12/17 07:21 03/12/17 11:00 White Blood Count 6.9 x10^3/uL (4.0-11.0) Red Blood Count 2.39 x10^6/uL (4.30-5.70) Hemoglobin 7.4 g/dL (13.0-17.5) Hematocrit 22.1 % (39.0-53.0) Mean Corpuscular Volume 93 fL (79-100) Mean Corpuscular Hemoglobin 31 pg (25-35) Mean Corpuscular Hemoglobin Concent 33 g/dL (31-37) Red Cell Distribution Width 16.7 % (11.5-14.5) Platelet Count 158 x10^3/uL (140-400) Neutrophils (%) (Auto) 74 % (31-73) Lymphocytes (%) (Auto) 11 % (24-48) Monocytes (%) (Auto) 9 % (0-9) Eosinophils (%) (Auto) 5 % (0-3) Basophils (%) (Auto) 1 % (0-3) Neutrophils # (Auto) 5.1 x10^3uL (1.8-7.7) Lymphocytes # (Auto) 0.8 x10^3/uL (1.0-4.8) Monocytes # (Auto) 0.6 x10^3/uL (0.0-1.1) Eosinophils # (Auto) 0.3 x10^3/uL (0.0-0.7) Basophils # (Auto) 0.0 x10^3/uL (0.0-0.2) Sodium Level 145 mmol/L (136-145) Potassium Level 3.8 mmol/L (3.5-5.1) Chloride Level 107 mmol/L (98-107) Carbon Dioxide Level 27 mmol/L (21-32) Anion Gap 11 (6-14) Blood Urea Nitrogen 21 mg/dL (8-26) Creatinine 1.4 mg/dL (0.7-1.3) Estimated GFR (Cockcroft-Gault) 51.2 BUN/Creatinine Ratio 15 (6-20) Glucose Level 203 mg/dL (70-99) Calcium Level 9.4 mg/dL (8.5-10.1) Total Bilirubin 0.5 mg/dL (0.2-1.0) Aspartate Amino Transf (AST/SGOT) 15 U/L (15-37) Alanine Aminotransferase (ALT/SGPT) 15 U/L (16-63) Alkaline Phosphatase 76 U/L (46-116) Total Protein 7.4 g/dL (6.4-8.2) Albumin 2.7 g/dL (3.4-5.0) Albumin/Globulin Ratio 0.6 (1.0-1.7) Triglycerides Level 78 mg/dL (0-150) Cholesterol Level 127 mg/dL (0-200) LDL Cholesterol, Calculated 71 mg/dL (0-100) VLDL Cholesterol, Calculated 16 mg/dL (0-40) Non-HDL Cholesterol Calculated 87 mg/dL (0-129) HDL Cholesterol 40 mg/dL (40-60) Cholesterol/HDL Ratio 3.2 Glucose (Fingerstick) 172 mg/dL (70-99) 172 mg/dL (70-99) Laboratory Tests Test 03/11/17 15:40 03/11/17 18:00 03/11/17 21:55 03/11/17 22:30 White Blood Count 7.8 x10^3/uL (4.0-11.0) Red Blood Count 2.23 x10^6/uL (4.30-5.70) Hemoglobin 7.1 g/dL (13.0-17.5) Hematocrit 20.2 % (39.0-53.0) Mean Corpuscular Volume 91 fL (79-100) Mean Corpuscular Hemoglobin 32 pg (25-35) Mean Corpuscular Hemoglobin Concent 35 g/dL (31-37) Red Cell Distribution Width 16.9 % (11.5-14.5) Platelet Count 166 x10^3/uL (140-400) Prothrombin Time 15.5 SEC (11.7-14.0) Prothromb Time International Ratio 1.3 (0.8-1.1) Activated Partial Thromboplast Time 33 SEC (24-38) Sodium Level 143 mmol/L (136-145) Potassium Level 3.8 mmol/L (3.5-5.1) Chloride Level 106 mmol/L (98-107) Carbon Dioxide Level 26 mmol/L (21-32) Anion Gap 11 (6-14) Blood Urea Nitrogen 22 mg/dL (8-26) Creatinine 1.6 mg/dL (0.7-1.3) Estimated GFR (Cockcroft-Gault) 43.9 Glucose Level 168 mg/dL (70-99) Calcium Level 9.0 mg/dL (8.5-10.1) Troponin I Quantitative < 0.017 ng/mL (0.000-0.055) Vitamin B12 Level 421 pg/mL (247-911) Thyroid Stimulating Hormone (TSH) 1.245 uIU/mL (0.358-3.74) Urine Collection Type Unknown Urine Color Yellow Urine Clarity Clear Urine pH 5.5 Urine Specific [place] 1.015 Urine Protein Negative mg/dL (NEG-TRACE) Urine Glucose (UA) Negative mg/dL (NEG) Urine Ketones (Stick) Negative mg/dL (NEG) Urine Blood Negative (NEG) Urine Nitrite Negative (NEG) Urine Bilirubin Negative (NEG) Urine Urobilinogen Dipstick 0.2 mg/dL (0.2 mg/dL) Urine Leukocyte Esterase Negative (NEG) Urine RBC 0 /HPF (0-2) Urine WBC 0 /HPF (0-4) Urine Squamous Epithelial Cells None /LPF Urine Bacteria 0 /HPF (0-FEW) Urine Hyaline Casts Few /HPF Urine Mucus Slight /LPF Urine Opiates Screen Pos (NEG) Urine Methadone Screen Neg (NEG) Urine Barbiturates Neg (NEG) Urine Phencyclidine Screen Neg (NEG) Urine Amphetamine/Methamphetamine Neg (NEG) Urine Benzodiazepines Screen Neg (NEG) Urine Cocaine Screen Neg (NEG) Urine Cannabinoids Screen Neg (NEG) Urine Ethyl Alcohol Neg (NEG) Glucose (Fingerstick) 215 mg/dL (70-99) Nasal Screen MRSA (PCR) Negative (Negative) Test 03/12/17 04:30 03/12/17 07:21 03/12/17 11:00 White Blood Count 6.9 x10^3/uL (4.0-11.0) Red Blood Count 2.39 x10^6/uL (4.30-5.70) Hemoglobin 7.4 g/dL (13.0-17.5) Hematocrit 22.1 % (39.0-53.0) Mean Corpuscular Volume 93 fL (79-100) Mean Corpuscular Hemoglobin 31 pg (25-35) Mean Corpuscular Hemoglobin Concent 33 g/dL (31-37) Red Cell Distribution Width 16.7 % (11.5-14.5) Platelet Count 158 x10^3/uL (140-400) Neutrophils (%) (Auto) 74 % (31-73) Lymphocytes (%) (Auto) 11 % (24-48) Monocytes (%) (Auto) 9 % (0-9) Eosinophils (%) (Auto) 5 % (0-3) Basophils (%) (Auto) 1 % (0-3) Neutrophils # (Auto) 5.1 x10^3uL (1.8-7.7) Lymphocytes # (Auto) 0.8 x10^3/uL (1.0-4.8) Monocytes # (Auto) 0.6 x10^3/uL (0.0-1.1) Eosinophils # (Auto) 0.3 x10^3/uL (0.0-0.7) Basophils # (Auto) 0.0 x10^3/uL (0.0-0.2) Sodium Level 145 mmol/L (136-145) Potassium Level 3.8 mmol/L (3.5-5.1) Chloride Level 107 mmol/L (98-107) Carbon Dioxide Level 27 mmol/L (21-32) Anion Gap 11 (6-14) Blood Urea Nitrogen 21 mg/dL (8-26) Creatinine 1.4 mg/dL (0.7-1.3) Estimated GFR (Cockcroft-Gault) 51.2 BUN/Creatinine Ratio 15 (6-20) Glucose Level 203 mg/dL (70-99) Calcium Level 9.4 mg/dL (8.5-10.1) Total Bilirubin 0.5 mg/dL (0.2-1.0) Aspartate Amino Transf (AST/SGOT) 15 U/L (15-37) Alanine Aminotransferase (ALT/SGPT) 15 U/L (16-63) Alkaline Phosphatase 76 U/L (46-116) Total Protein 7.4 g/dL (6.4-8.2) Albumin 2.7 g/dL (3.4-5.0) Albumin/Globulin Ratio 0.6 (1.0-1.7) Triglycerides Level 78 mg/dL (0-150) Cholesterol Level 127 mg/dL (0-200) LDL Cholesterol, Calculated 71 mg/dL (0-100) VLDL Cholesterol, Calculated 16 mg/dL (0-40) Non-HDL Cholesterol Calculated 87 mg/dL (0-129) HDL Cholesterol 40 mg/dL (40-60) Cholesterol/HDL Ratio 3.2 Glucose (Fingerstick) 172 mg/dL (70-99) 172 mg/dL (70-99) ADRIANA CUETO MD Mar 12, 2017 14:53
--- NOTE | 2017-03-12 14:58 | PDOC ---
PROGRESS NOTES Assessment Assessment Speech problem, resolved. CVA syndrome not likely. Metabolic encephalopathy. Cognitive impairment, Narcotics side effects. Fall DM HTN HLD Renal failure. Wound, left ankle. Chronic left ankle fracture. Carotid A stenosis < 69%. Anemia. Morbid obesity. Doubted acute stroke. RECOMMENDATIONS/PLAN: Continue Plavix 75 mg daily. Continue ASA daily. Continue Lipitor HS. See Vascular Surgery as out-patient. Treat medical diseases. OT/PT. Carotid A US + Doppler: < 69% stenosis. Echo: Unremarkable. HISTORY OF THE PRESENT ILLNESS: 62-y-old male patient with above medical diseases had left ankle fracture about 8 weeks ago and received surgery, but his wound still persistent and has not been able to walk. He was in wheel chair and was trying to reach object in sink but he fell off wheelchair. He was found to have some mental status changes and speech problem to be brought to the ER of [facility]. Stat MRI was performed but was uncertain whether a stroke or artifact. However, he received all stroke evaluation and treatment. He talked normal since in the hospital. He stated his speech came back after midnight. No motor or sensory deficits. Past Medical History: Diabetes-Type II GERD High Cholesterol Hypertension Charcot foot NEUROPATHY SLEEP APNEA Past Surgical History: Cholecystectomy Right foot surgery Non-descended testicle Hernia Left ankle surgery ALLERGY: Reviewed. MEDICATIONS: Refer to [facility] HISTORY: Non contributory. SOCIAL HISTORY: From Rehab facility. Lives with his at home before. Denies current smoking, drinking, and illicit drug use. REVIEW OF SYSTEMS: Constitutional: Morbid obesity. Head: No recent traumatic brain or head injury. Skin: No edema, or rash. Ear: No infection, tinnitus. Eyes: No vision loss or color blindness. Nose: No bleeding or purulent discharges. Hearing: Hearing decrease. Neck: No recent injury. Cardiac: HTN, HLD. Pulmonary: No COPD. GI: No GI ulcer, GI bleeding. Urinary/genital: UTI. Endocrinologic: Diabetes Mellitus, morbid obesity. Skeletomuscular: Left ankle fracture. Neurological: see HP. Psychiatric: Denies drug use/abuse. Otherwise, not [id number] review of systems. PHYSICAL EXAMINATION: General appearance is in no acute distress. HEENT: Normocephalic and nontraumatic. Eyes, nose, ears, and throat are unremarkable. Neck is supple. No lymphadenopathy. No bruits are heard over the carotid artery. No crepitus. Cardiovascular: S1, S2, regular rate and rhythm. Pulmonary: Clear to auscultation bilaterally. Abdomen: Bowel sounds are positive. Extremities: No rash, lesions, or edema. No restriction of range of motion NEUROLOGICAL EXAMINATION: Awake. Oriented to time, place and person. PERRL. EOMI. CN: no focal findings. Muscle tone: within normal. Muscle strength: 5 DTR: 1+ Plantar reflex: Flexor response bilaterally Gait: not examined in bed. Sensory exam: withdraw to stimuli. No cerebellar signs elicited. F-T-N test accurate. Objective Objective Vital Signs Date Time Temp Pulse Resp B/P (MAP) Pulse Ox O2 Delivery O2 Flow Rate FiO2 03/12/17 13:55 97 Nasal Cannula 2.0 03/12/17 13:34 86 138/60 03/12/17 11:00 96.3 20 96.3 Vitals Signs Vitals VS - Last 72 Hours, by Label Date Time Temp Pulse Resp B/P (MAP) Pulse Ox O2 Delivery O2 Flow Rate FiO2 03/12/17 13:55 97 Nasal Cannula 2.0 03/12/17 13:37 97 Nasal Cannula 2.0 03/12/17 13:34 86 138/60 03/12/17 11:38 Room Air 03/12/17 11:00 96.3 86 20 138/60 (86) 97 Nasal Cannula 2.0 96.3 03/12/17 08:00 Nasal Cannula 2.0 03/12/17 07:55 94 Nasal Cannula 2.0 03/12/17 07:22 94 Room Air 03/12/17 07:00 97.7 95 20 128/54 (78) 94 Nasal Cannula 2.0 97.7 03/12/17 03:10 97.9 97 20 151/78 (102) 91 Nasal Cannula 2.0 97.9 03/11/17 23:44 Room Air 03/11/17 23:10 98.0 101 20 140/78 (98) 95 Nasal Cannula 2.0 98.0 03/11/17 20:30 Nasal Cannula 2.0 03/11/17 20:25 97.9 97 20 130/74 (92) 95 Nasal Cannula 2.0 97.9 03/11/17 19:30 94 18 167/103 (124) 90 03/11/17 19:00 94 22 161/93 (115) 91 03/11/17 18:50 97 22 161/90 (113) 93 03/11/17 18:01 94 22 147/79 (101) 95 2.0 03/11/17 17:30 96 22 159/83 (108) 96 Nasal Cannula 2.0 03/11/17 17:14 93 22 140/72 (94) 95 Nasal Cannula 2.0 03/11/17 14:41 98.0 89 22 152/72 (98) 87 Room Air 98.0 Laboratory Laboratory Laboratory Tests Test 03/11/17 15:40 03/11/17 18:00 03/11/17 21:55 03/11/17 22:30 White Blood Count 7.8 x10^3/uL (4.0-11.0) Red Blood Count 2.23 x10^6/uL (4.30-5.70) Hemoglobin 7.1 g/dL (13.0-17.5) Hematocrit 20.2 % (39.0-53.0) Mean Corpuscular Volume 91 fL (79-100) Mean Corpuscular Hemoglobin 32 pg (25-35) Mean Corpuscular Hemoglobin Concent 35 g/dL (31-37) Red Cell Distribution Width 16.9 % (11.5-14.5) Platelet Count 166 x10^3/uL (140-400) Prothrombin Time 15.5 SEC (11.7-14.0) Prothromb Time International Ratio 1.3 (0.8-1.1) Activated Partial Thromboplast Time 33 SEC (24-38) Sodium Level 143 mmol/L (136-145) Potassium Level 3.8 mmol/L (3.5-5.1) Chloride Level 106 mmol/L (98-107) Carbon Dioxide Level 26 mmol/L (21-32) Anion Gap 11 (6-14) Blood Urea Nitrogen 22 mg/dL (8-26) Creatinine 1.6 mg/dL (0.7-1.3) Estimated GFR (Cockcroft-Gault) 43.9 Glucose Level 168 mg/dL (70-99) Calcium Level 9.0 mg/dL (8.5-10.1) Troponin I Quantitative < 0.017 ng/mL (0.000-0.055) Vitamin B12 Level 421 pg/mL (247-911) Thyroid Stimulating Hormone (TSH) 1.245 uIU/mL (0.358-3.74) Urine Collection Type Unknown Urine Color Yellow Urine Clarity Clear Urine pH 5.5 Urine Specific [place] 1.015 Urine Protein Negative mg/dL (NEG-TRACE) Urine Glucose (UA) Negative mg/dL (NEG) Urine Ketones (Stick) Negative mg/dL (NEG) Urine Blood Negative (NEG) Urine Nitrite Negative (NEG) Urine Bilirubin Negative (NEG) Urine Urobilinogen Dipstick 0.2 mg/dL (0.2 mg/dL) Urine Leukocyte Esterase Negative (NEG) Urine RBC 0 /HPF (0-2) Urine WBC 0 /HPF (0-4) Urine Squamous Epithelial Cells None /LPF Urine Bacteria 0 /HPF (0-FEW) Urine Hyaline Casts Few /HPF Urine Mucus Slight /LPF Urine Opiates Screen Pos (NEG) Urine Methadone Screen Neg (NEG) Urine Barbiturates Neg (NEG) Urine Phencyclidine Screen Neg (NEG) Urine Amphetamine/Methamphetamine Neg (NEG) Urine Benzodiazepines Screen Neg (NEG) Urine Cocaine Screen Neg (NEG) Urine Cannabinoids Screen Neg (NEG) Urine Ethyl Alcohol Neg (NEG) Glucose (Fingerstick) 215 mg/dL (70-99) Nasal Screen MRSA (PCR) Negative (Negative) Test 03/12/17 04:30 03/12/17 07:21 03/12/17 11:00 White Blood Count 6.9 x10^3/uL (4.0-11.0) Red Blood Count 2.39 x10^6/uL (4.30-5.70) Hemoglobin 7.4 g/dL (13.0-17.5) Hematocrit 22.1 % (39.0-53.0) Mean Corpuscular Volume 93 fL (79-100) Mean Corpuscular Hemoglobin 31 pg (25-35) Mean Corpuscular Hemoglobin Concent 33 g/dL (31-37) Red Cell Distribution Width 16.7 % (11.5-14.5) Platelet Count 158 x10^3/uL (140-400) Neutrophils (%) (Auto) 74 % (31-73) Lymphocytes (%) (Auto) 11 % (24-48) Monocytes (%) (Auto) 9 % (0-9) Eosinophils (%) (Auto) 5 % (0-3) Basophils (%) (Auto) 1 % (0-3) Neutrophils # (Auto) 5.1 x10^3uL (1.8-7.7) Lymphocytes # (Auto) 0.8 x10^3/uL (1.0-4.8) Monocytes # (Auto) 0.6 x10^3/uL (0.0-1.1) Eosinophils # (Auto) 0.3 x10^3/uL (0.0-0.7) Basophils # (Auto) 0.0 x10^3/uL (0.0-0.2) Sodium Level 145 mmol/L (136-145) Potassium Level 3.8 mmol/L (3.5-5.1) Chloride Level 107 mmol/L (98-107) Carbon Dioxide Level 27 mmol/L (21-32) Anion Gap 11 (6-14) Blood Urea Nitrogen 21 mg/dL (8-26) Creatinine 1.4 mg/dL (0.7-1.3) Estimated GFR (Cockcroft-Gault) 51.2 BUN/Creatinine Ratio 15 (6-20) Glucose Level 203 mg/dL (70-99) Calcium Level 9.4 mg/dL (8.5-10.1) Total Bilirubin 0.5 mg/dL (0.2-1.0) Aspartate Amino Transf (AST/SGOT) 15 U/L (15-37) Alanine Aminotransferase (ALT/SGPT) 15 U/L (16-63) Alkaline Phosphatase 76 U/L (46-116) Total Protein 7.4 g/dL (6.4-8.2) Albumin 2.7 g/dL (3.4-5.0) Albumin/Globulin Ratio 0.6 (1.0-1.7) Triglycerides Level 78 mg/dL (0-150) Cholesterol Level 127 mg/dL (0-200) LDL Cholesterol, Calculated 71 mg/dL (0-100) VLDL Cholesterol, Calculated 16 mg/dL (0-40) Non-HDL Cholesterol Calculated 87 mg/dL (0-129) HDL Cholesterol 40 mg/dL (40-60) Cholesterol/HDL Ratio 3.2 Glucose (Fingerstick) 172 mg/dL (70-99) 172 mg/dL (70-99) Medication Medications Current Medications Acetaminophen (Tylenol) 650 mg PRN Q4HRS PRN PO FEVER; Start 03/11/17 at 18:30 ; Stop 03/12/17 at 18:29 Acetaminophen/ Hydrocodone Bitart (Lortab 7.5/325) 1 tab PRN Q4HRS PRN PO MODERATE PAIN; Start 03/11/17 at 19:30 Albuterol Sulfate (Ventolin Neb Soln) 2.5 mg PRN Q4HRS PRN NEB SHORTNESS OF BREATH; Start 03/12/17 at 06:00 Albuterol/ Ipratropium (Duoneb) 3 ml RTQID NEB Last administered on 03/12/17 11:38; Start 03/12/17 at 08:00 Aspirin (Omkar Aspirin) 325 mg DAILY PO Last administered on 03/12/17 13:35; Start 03/12/17 at 09:00 Atorvastatin Calcium (Lipitor) 20 mg QHS PO ; Start 03/11/17 at 21:00 Celecoxib (CeleBREX) 200 mg BID PO Last administered on 03/12/17 13:34; Start 03/11/17 at 21:00 Citalopram Hydrobromide (CeleXA) 40 mg DAILY PO Last administered on 03/12/17 13:33; Start 03/12/17 at 09:00 Clopidogrel Bisulfate (Plavix) 75 mg 1X ONCE PO Last administered on 18:48; Start 03/11/17 at 18:30; Stop 03/11/17 at 18:31; Status DC Clopidogrel Bisulfate (Plavix) 75 mg DAILY PO Last administered on 03/12/17 13 :35; Start 03/12/17 at 09:00 Dextrose (Dextrose 50%-Water Syringe) 12.5 gm PRN Q15MIN PRN IV SEE COMMENTS; Start 03/11/17 at 19:30 Diphenhydramine HCl (Benadryl) 50 mg 1X ONCE IVP Last administered on 17:11; Start 03/11/17 at 15:30; Stop 03/11/17 at 15:32; Status DC Docusate Sodium (Colace) 100 mg DAILY PO Last administered on 03/12/17 13:35; Start 03/12/17 at 09:00 Fentanyl (Duragesic 75mcg/ Hr Patch) 1 patch Q3DAYS TD Last administered on 13:37; Start 03/12/17 at 09:00 Gabapentin (Neurontin) 300 mg BID PO Last administered on 03/12/17 13:33; Start 03/11/17 at 21:00 Hydromorphone HCl (Dilaudid) 0.5 mg PRN Q3HRS PRN IVP SEVERE PAIN Last administered on 03/12/17 07:55; Start 03/11/17 at 23:15 Insulin Aspart (NovoLOG) TIDWMEALS SQ ; Start 03/12/17 at 08:00 Insulin Detemir (Levemir) 22 units QHS SQ Last administered on 03/11/17 22:51 ; Start 03/11/17 at 21:00 Losartan Potassium (Cozaar) 50 mg DAILY PO Last administered on 03/12/17 13:34 ; Start 03/12/17 at 09:00 Metformin HCl (Glucophage) 500 mg BIDWMEALS PO ; Start 03/12/17 at 08:00 Morphine Sulfate 4 mg PRN Q2HR PRN IV PAIN; Start 03/11/17 at 18:30; Stop 03/12 at 18:29 Non-Formulary Medication 3.375 gm Q6HRS IV ; Start 03/12/17 at 00:00; Status UNV Ondansetron HCl (Zofran) 4 mg PRN Q8HRS PRN IV NAUSEA/VOMITING; Start 03/11/17 at 18:30; Stop 03/12/17 at 18:29 Pantoprazole Sodium (Protonix) 40 mg DAILYAC PO Last administered on 03/12/17 13:34; Start 03/12/17 at 07:30 Piperacillin Sod/ Tazobactam Sod 3.375 gm/Sodium Chloride 50 ml @ 100 mls/hr Q6HRS IV Last administered on 03/12/17 13:49; Start 03/12/17 at 00:00 Tamsulosin HCl (Flomax) 0.4 mg BID PO Last administered on 03/12/17 13:33; Start 03/11/17 at 21:00 Tamsulosin HCl (Flomax) 0.4 mg HS PO ; Start 03/11/17 at 21:00; Status UNV Vitamin D (Vitamin D3) 1,000 unit DAILY PO Last administered on 03/12/17t 13:34 ; Start 03/12/17 at 09:00 Comment Review of Relevant I have reviewed the following items lauryn (where applicable) has been applied. ADRIANA CUETO MD Mar 12, 2017 14:58
[2017-03-12 15:00] VITALS: BP 137/67
--- NOTE | 2017-03-12 17:13 | PDOC ---
PROGRESS NOTES Assessment Assessment Speech problem, resolved. CVA syndrome not likely. Metabolic encephalopathy. Cognitive impairment, Narcotics side effects. Fall DM HTN HLD UTI, acute. Renal failure. Wound, left ankle. Chronic left ankle fracture. Carotid A stenosis < 69%. Anemia. Morbid obesity. Doubted acute stroke. RECOMMENDATIONS/PLAN: Continue Plavix 75 mg daily. Continue ASA daily. Continue Lipitor HS. Treat UTI per floor team. Treat medical diseases. See Vascular Surgery as out-patient. OT/PT. Carotid A US + Doppler: < 69% stenosis. Echo: Unremarkable. HISTORY OF THE PRESENT ILLNESS: 62-y-old male patient with above medical diseases had left ankle fracture about 8 weeks ago and received surgery, but his wound still persistent and has not been able to walk. He was in wheel chair and was trying to reach object in sink but he fell off wheelchair. He was found to have some mental status changes and speech problem to be brought to the ER of [facility]. Stat MRI was performed but was uncertain whether a stroke or artifact. However, he received all stroke evaluation and treatment. He talked normal since in the hospital. He stated his speech came back after midnight. No motor or sensory deficits. Past Medical History: Diabetes-Type II GERD High Cholesterol Hypertension Charcot foot NEUROPATHY SLEEP APNEA Past Surgical History: Cholecystectomy Right foot surgery Non-descended testicle Hernia Left ankle surgery ALLERGY: Reviewed. MEDICATIONS: Refer to [facility] HISTORY: Non contributory. SOCIAL HISTORY: From Rehab facility. Lives with his at home before. Denies current smoking, drinking, and illicit drug use. REVIEW OF SYSTEMS: Constitutional: Morbid obesity. Head: No recent traumatic brain or head injury. Skin: No edema, or rash. Ear: No infection, tinnitus. Eyes: No vision loss or color blindness. Nose: No bleeding or purulent discharges. Hearing: Hearing decrease. Neck: No recent injury. Cardiac: HTN, HLD. Pulmonary: No COPD. GI: No GI ulcer, GI bleeding. Urinary/genital: UTI. Endocrinologic: Diabetes Mellitus, morbid obesity. Skeletomuscular: Left ankle fracture. Neurological: see HP. Psychiatric: Denies drug use/abuse. Otherwise, not [id number] review of systems. PHYSICAL EXAMINATION: General appearance is in no acute distress. HEENT: Normocephalic and nontraumatic. Eyes, nose, ears, and throat are unremarkable. Neck is supple. No lymphadenopathy. No bruits are heard over the carotid artery. No crepitus. Cardiovascular: S1, S2, regular rate and rhythm. Pulmonary: Clear to auscultation bilaterally. Abdomen: Bowel sounds are positive. Extremities: No rash, lesions, or edema. No restriction of range of motion NEUROLOGICAL EXAMINATION: Awake. Oriented to time, place and person. PERRL. EOMI. CN: no focal findings. Muscle tone: within normal. Muscle strength: 5 DTR: 1+ Plantar reflex: Flexor response bilaterally Gait: not examined in bed. Sensory exam: withdraw to stimuli. No cerebellar signs elicited. F-T-N test accurate. Objective Objective Vital Signs Date Time Temp Pulse Resp B/P (MAP) Pulse Ox O2 Delivery O2 Flow Rate FiO2 03/12/17 15:31 Room Air 03/12/17 15:00 98.8 93 20 137/67 (90) 94 2.0 98.8 Intake and Output 03/13/17 07:00 Intake Total 400 ml Output Total 700 ml Balance -300 ml Intake Oral 400 ml Output Urine Total 700 ml Vitals Signs Vitals VS - Last 72 Hours, by Label Date Time Temp Pulse Resp B/P (MAP) Pulse Ox O2 Delivery O2 Flow Rate FiO2 03/12/17 15:31 Room Air 03/12/17 15:00 98.8 93 20 137/67 (90) 94 Nasal Cannula 2.0 98.8 03/12/17 13:55 97 Nasal Cannula 2.0 03/12/17 13:37 97 Nasal Cannula 2.0 03/12/17 13:34 86 138/60 03/12/17 11:38 Room Air 03/12/17 11:00 96.3 86 20 138/60 (86) 97 Nasal Cannula 2.0 96.3 03/12/17 08:00 Nasal Cannula 2.0 03/12/17 07:55 94 Nasal Cannula 2.0 03/12/17 07:22 94 Room Air 03/12/17 07:00 97.7 95 20 128/54 (78) 94 Nasal Cannula 2.0 97.7 03/12/17 03:10 97.9 97 20 151/78 (102) 91 Nasal Cannula 2.0 97.9 03/11/17 23:44 Room Air 03/11/17 23:10 98.0 101 20 140/78 (98) 95 Nasal Cannula 2.0 98.0 03/11/17 20:30 Nasal Cannula 2.0 03/11/17 20:25 97.9 97 20 130/74 (92) 95 Nasal Cannula 2.0 97.9 03/11/17 19:30 94 18 167/103 (124) 90 03/11/17 19:00 94 22 161/93 (115) 91 03/11/17 18:50 97 22 161/90 (113) 93 03/11/17 18:01 94 22 147/79 (101) 95 2.0 03/11/17 17:30 96 22 159/83 (108) 96 Nasal Cannula 2.0 03/11/17 17:14 93 22 140/72 (94) 95 Nasal Cannula 2.0 03/11/17 14:41 98.0 89 22 152/72 (98) 87 Room Air 98.0 Laboratory Laboratory Laboratory Tests Test 03/11/17 18:00 03/11/17 21:55 03/11/17 22:30 03/12/17 04:30 Urine Collection Type Unknown Urine Color Yellow Urine Clarity Clear Urine pH 5.5 Urine Specific [place] 1.015 Urine Protein Negative mg/dL (NEG-TRACE) Urine Glucose (UA) Negative mg/dL (NEG) Urine Ketones (Stick) Negative mg/dL (NEG) Urine Blood Negative (NEG) Urine Nitrite Negative (NEG) Urine Bilirubin Negative (NEG) Urine Urobilinogen Dipstick 0.2 mg/dL (0.2 mg/dL) Urine Leukocyte Esterase Negative (NEG) Urine RBC 0 /HPF (0-2) Urine WBC 0 /HPF (0-4) Urine Squamous Epithelial Cells None /LPF Urine Bacteria 0 /HPF (0-FEW) Urine Hyaline Casts Few /HPF Urine Mucus Slight /LPF Urine Opiates Screen Pos (NEG) Urine Methadone Screen Neg (NEG) Urine Barbiturates Neg (NEG) Urine Phencyclidine Screen Neg (NEG) Urine Amphetamine/Methamphetamine Neg (NEG) Urine Benzodiazepines Screen Neg (NEG) Urine Cocaine Screen Neg (NEG) Urine Cannabinoids Screen Neg (NEG) Urine Ethyl Alcohol Neg (NEG) Glucose (Fingerstick) 215 mg/dL (70-99) Nasal Screen MRSA (PCR) Negative (Negative) White Blood Count 6.9 x10^3/uL (4.0-11.0) Red Blood Count 2.39 x10^6/uL (4.30-5.70) Hemoglobin 7.4 g/dL (13.0-17.5) Hematocrit 22.1 % (39.0-53.0) Mean Corpuscular Volume 93 fL (79-100) Mean Corpuscular Hemoglobin 31 pg (25-35) Mean Corpuscular Hemoglobin Concent 33 g/dL (31-37) Red Cell Distribution Width 16.7 % (11.5-14.5) Platelet Count 158 x10^3/uL (140-400) Neutrophils (%) (Auto) 74 % (31-73) Lymphocytes (%) (Auto) 11 % (24-48) Monocytes (%) (Auto) 9 % (0-9) Eosinophils (%) (Auto) 5 % (0-3) Basophils (%) (Auto) 1 % (0-3) Neutrophils # (Auto) 5.1 x10^3uL (1.8-7.7) Lymphocytes # (Auto) 0.8 x10^3/uL (1.0-4.8) Monocytes # (Auto) 0.6 x10^3/uL (0.0-1.1) Eosinophils # (Auto) 0.3 x10^3/uL (0.0-0.7) Basophils # (Auto) 0.0 x10^3/uL (0.0-0.2) Sodium Level 145 mmol/L (136-145) Potassium Level 3.8 mmol/L (3.5-5.1) Chloride Level 107 mmol/L (98-107) Carbon Dioxide Level 27 mmol/L (21-32) Anion Gap 11 (6-14) Blood Urea Nitrogen 21 mg/dL (8-26) Creatinine 1.4 mg/dL (0.7-1.3) Estimated GFR (Cockcroft-Gault) 51.2 BUN/Creatinine Ratio 15 (6-20) Glucose Level 203 mg/dL (70-99) Calcium Level 9.4 mg/dL (8.5-10.1) Total Bilirubin 0.5 mg/dL (0.2-1.0) Aspartate Amino Transf (AST/SGOT) 15 U/L (15-37) Alanine Aminotransferase (ALT/SGPT) 15 U/L (16-63) Alkaline Phosphatase 76 U/L (46-116) Total Protein 7.4 g/dL (6.4-8.2) Albumin 2.7 g/dL (3.4-5.0) Albumin/Globulin Ratio 0.6 (1.0-1.7) Triglycerides Level 78 mg/dL (0-150) Cholesterol Level 127 mg/dL (0-200) LDL Cholesterol, Calculated 71 mg/dL (0-100) VLDL Cholesterol, Calculated 16 mg/dL (0-40) Non-HDL Cholesterol Calculated 87 mg/dL (0-129) HDL Cholesterol 40 mg/dL (40-60) Cholesterol/HDL Ratio 3.2 Test 03/12/17 07:21 03/12/17 11:00 03/12/17 16:18 Glucose (Fingerstick) 172 mg/dL (70-99) 172 mg/dL (70-99) 183 mg/dL (70-99) Medication Medications Current Medications Acetaminophen (Tylenol) 650 mg PRN Q4HRS PRN PO FEVER; Start 03/11/17 at 18:30 ; Stop 03/12/17 at 18:29 Acetaminophen/ Hydrocodone Bitart (Lortab 7.5/325) 1 tab PRN Q4HRS PRN PO MODERATE PAIN; Start 03/11/17 at 19:30 Albuterol Sulfate (Ventolin Neb Soln) 2.5 mg PRN Q4HRS PRN NEB SHORTNESS OF BREATH; Start 03/12/17 at 06:00 Albuterol/ Ipratropium (Duoneb) 3 ml RTQID NEB Last administered on 03/12/17 15:31; Start 03/12/17 at 08:00 Aspirin (Omkar Aspirin) 325 mg DAILY PO Last administered on 03/12/17 13:35; Start 03/12/17 at 09:00 Atorvastatin Calcium (Lipitor) 20 mg QHS PO ; Start 03/11/17 at 21:00 Celecoxib (CeleBREX) 200 mg BID PO Last administered on 03/12/17 13:34; Start 03/11/17 at 21:00 Citalopram Hydrobromide (CeleXA) 40 mg DAILY PO Last administered on 03/12/17 13:33; Start 03/12/17 at 09:00 Clopidogrel Bisulfate (Plavix) 75 mg 1X ONCE PO Last administered on 18:48; Start 03/11/17 at 18:30; Stop 03/11/17 at 18:31; Status DC Clopidogrel Bisulfate (Plavix) 75 mg DAILY PO Last administered on 03/12/17 13 :35; Start 03/12/17 at 09:00 Dextrose (Dextrose 50%-Water Syringe) 12.5 gm PRN Q15MIN PRN IV SEE COMMENTS; Start 03/11/17 at 19:30 Docusate Sodium (Colace) 100 mg DAILY PO Last administered on 03/12/17 13:35; Start 03/12/17 at 09:00 Fentanyl (Duragesic 75mcg/ Hr Patch) 1 patch Q3DAYS TD Last administered on 13:37; Start 03/12/17 at 09:00 Gabapentin (Neurontin) 300 mg BID PO Last administered on 03/12/17 13:33; Start 03/11/17 at 21:00 Hydromorphone HCl (Dilaudid) 0.5 mg PRN Q3HRS PRN IVP SEVERE PAIN Last administered on 03/12/17 07:55; Start 03/11/17 at 23:15 Insulin Aspart (NovoLOG) TIDWMEALS SQ ; Start 03/12/17 at 08:00 Insulin Detemir (Levemir) 22 units QHS SQ Last administered on 03/11/17 22:51 ; Start 03/11/17 at 21:00 Losartan Potassium (Cozaar) 50 mg DAILY PO Last administered on 03/12/17 13:34 ; Start 03/12/17 at 09:00 Metformin HCl (Glucophage) 500 mg BIDWMEALS PO ; Start 03/12/17 at 08:00 Morphine Sulfate 4 mg PRN Q2HR PRN IV PAIN; Start 03/11/17 at 18:30; Stop 03/12 at 18:29 Non-Formulary Medication 3.375 gm Q6HRS IV ; Start 03/12/17 at 00:00; Status UNV Ondansetron HCl (Zofran) 4 mg PRN Q8HRS PRN IV NAUSEA/VOMITING; Start 03/11/17 at 18:30; Stop 03/12/17 at 18:29 Pantoprazole Sodium (Protonix) 40 mg DAILYAC PO Last administered on 03/12/17 13:34; Start 03/12/17 at 07:30 Piperacillin Sod/ Tazobactam Sod 3.375 gm/Sodium Chloride 50 ml @ 100 mls/hr Q6HRS IV Last administered on 03/12/17 13:49; Start 03/12/17 at 00:00 Tamsulosin HCl (Flomax) 0.4 mg BID PO Last administered on 03/12/17 13:33; Start 03/11/17 at 21:00 Tamsulosin HCl (Flomax) 0.4 mg HS PO ; Start 03/11/17 at 21:00; Status UNV Vitamin D (Vitamin D3) 1,000 unit DAILY PO Last administered on 03/12/17 13:34 ; Start 03/12/17 at 09:00 Comment Review of Relevant I have reviewed the following items lauryn (where applicable) has been applied. ADRIANA CUETO MD Mar 12, 2017 17:13
[2017-03-12 19:05] VITALS: BP 124/79
[2017-03-12] MEDS: ATORVASTATIN CALCIUM 20 MG TABLET PO SCH (20:41)
[2017-03-12] MEDS: INSULIN DETEMIR 300 UNITS/3 ML INSULN.PEN. SQ SCH (20:47)
--- NOTE | 2017-03-12 22:07 | PDOC ---
PROGRESS NOTES Subjective Subjective Problems overnight: Patient is well-known to me from previous ankle fusion with hindfoot nail and continued application of external fixator for protection who sustained a fall and admission to the hospital. I was consulted with concern for a hardware problem apparently with his fixator. He is unaware of any real problem with the ankle either pain or shifting of any type and has not been bearing weight on the left lower extremity. He did indicate that apparently there was some increased drainage continues to have the wound VAC on both medial and lateral wounds Objective Vital Signs Vital Signs Date Time Temp Pulse Resp B/P (MAP) Pulse Ox O2 Delivery O2 Flow Rate FiO2 03/12/17 20:00 Nasal Cannula 2.0 03/12/17 19:05 98.0 93 20 124/79 (94) 94 98.0 Physical Exam On examination his external fixator appears to be intact tight and well aligned the only issue is that the threaded area in his calcaneus has now allowed some slight movement along the pin itself but again fixator remains intact and well supportive with some expected drainage from the heel pin sites. Wound VAC is intact to his medial and lateral wounds and no redness or erythema appears to be present Labs Laboratory Tests Test 03/11/17 15:40 03/11/17 18:00 03/11/17 21:55 03/11/17 22:30 White Blood Count 7.8 x10^3/uL (4.0-11.0) Red Blood Count 2.23 x10^6/uL (4.30-5.70) Hemoglobin 7.1 g/dL (13.0-17.5) Hematocrit 20.2 % (39.0-53.0) Mean Corpuscular Volume 91 fL (79-100) Mean Corpuscular Hemoglobin 32 pg (25-35) Mean Corpuscular Hemoglobin Concent 35 g/dL (31-37) Red Cell Distribution Width 16.9 % (11.5-14.5) Platelet Count 166 x10^3/uL (140-400) Prothrombin Time 15.5 SEC (11.7-14.0) Prothromb Time International Ratio 1.3 (0.8-1.1) Activated Partial Thromboplast Time 33 SEC (24-38) Sodium Level 143 mmol/L (136-145) Potassium Level 3.8 mmol/L (3.5-5.1) Chloride Level 106 mmol/L (98-107) Carbon Dioxide Level 26 mmol/L (21-32) Anion Gap 11 (6-14) Blood Urea Nitrogen 22 mg/dL (8-26) Creatinine 1.6 mg/dL (0.7-1.3) Estimated GFR (Cockcroft-Gault) 43.9 Glucose Level 168 mg/dL (70-99) Calcium Level 9.0 mg/dL (8.5-10.1) Troponin I Quantitative < 0.017 ng/mL (0.000-0.055) Vitamin B12 Level 421 pg/mL (247-911) Thyroid Stimulating Hormone (TSH) 1.245 uIU/mL (0.358-3.74) Urine Collection Type Unknown Urine Color Yellow Urine Clarity Clear Urine pH 5.5 Urine Specific Dorothy 1.015 Urine Protein Negative mg/dL (NEG-TRACE) Urine Glucose (UA) Negative mg/dL (NEG) Urine Ketones (Stick) Negative mg/dL (NEG) Urine Blood Negative (NEG) Urine Nitrite Negative (NEG) Urine Bilirubin Negative (NEG) Urine Urobilinogen Dipstick 0.2 mg/dL (0.2 mg/dL) Urine Leukocyte Esterase Negative (NEG) Urine RBC 0 /HPF (0-2) Urine WBC 0 /HPF (0-4) Urine Squamous Epithelial Cells None /LPF Urine Bacteria 0 /HPF (0-FEW) Urine Hyaline Casts Few /HPF Urine Mucus Slight /LPF Urine Opiates Screen Pos (NEG) Urine Methadone Screen Neg (NEG) Urine Barbiturates Neg (NEG) Urine Phencyclidine Screen Neg (NEG) Urine Amphetamine/Methamphetamine Neg (NEG) Urine Benzodiazepines Screen Neg (NEG) Urine Cocaine Screen Neg (NEG) Urine Cannabinoids Screen Neg (NEG) Urine Ethyl Alcohol Neg (NEG) Glucose (Fingerstick) 215 mg/dL (70-99) Nasal Screen MRSA (PCR) Negative (Negative) Test 03/12/17 04:30 03/12/17 07:21 03/12/17 11:00 03/12/17 16:18 White Blood Count 6.9 x10^3/uL (4.0-11.0) Red Blood Count 2.39 x10^6/uL (4.30-5.70) Hemoglobin 7.4 g/dL (13.0-17.5) Hematocrit 22.1 % (39.0-53.0) Mean Corpuscular Volume 93 fL (79-100) Mean Corpuscular Hemoglobin 31 pg (25-35) Mean Corpuscular Hemoglobin Concent 33 g/dL (31-37) Red Cell Distribution Width 16.7 % (11.5-14.5) Platelet Count 158 x10^3/uL (140-400) Neutrophils (%) (Auto) 74 % (31-73) Lymphocytes (%) (Auto) 11 % (24-48) Monocytes (%) (Auto) 9 % (0-9) Eosinophils (%) (Auto) 5 % (0-3) Basophils (%) (Auto) 1 % (0-3) Neutrophils # (Auto) 5.1 x10^3uL (1.8-7.7) Lymphocytes # (Auto) 0.8 x10^3/uL (1.0-4.8) Monocytes # (Auto) 0.6 x10^3/uL (0.0-1.1) Eosinophils # (Auto) 0.3 x10^3/uL (0.0-0.7) Basophils # (Auto) 0.0 x10^3/uL (0.0-0.2) Sodium Level 145 mmol/L (136-145) Potassium Level 3.8 mmol/L (3.5-5.1) Chloride Level 107 mmol/L (98-107) Carbon Dioxide Level 27 mmol/L (21-32) Anion Gap 11 (6-14) Blood Urea Nitrogen 21 mg/dL (8-26) Creatinine 1.4 mg/dL (0.7-1.3) Estimated GFR (Cockcroft-Gault) 51.2 BUN/Creatinine Ratio 15 (6-20) Glucose Level 203 mg/dL (70-99) Calcium Level 9.4 mg/dL (8.5-10.1) Total Bilirubin 0.5 mg/dL (0.2-1.0) Aspartate Amino Transf (AST/SGOT) 15 U/L (15-37) Alanine Aminotransferase (ALT/SGPT) 15 U/L (16-63) Alkaline Phosphatase 76 U/L (46-116) Total Protein 7.4 g/dL (6.4-8.2) Albumin 2.7 g/dL (3.4-5.0) Albumin/Globulin Ratio 0.6 (1.0-1.7) Triglycerides Level 78 mg/dL (0-150) Cholesterol Level 127 mg/dL (0-200) LDL Cholesterol, Calculated 71 mg/dL (0-100) VLDL Cholesterol, Calculated 16 mg/dL (0-40) Non-HDL Cholesterol Calculated 87 mg/dL (0-129) HDL Cholesterol 40 mg/dL (40-60) Cholesterol/HDL Ratio 3.2 Glucose (Fingerstick) 172 mg/dL (70-99) 172 mg/dL (70-99) 183 mg/dL (70-99) Test 03/12/17 20:20 Glucose (Fingerstick) 212 mg/dL (70-99) Laboratory Tests Test 03/11/17 22:30 03/12/17 04:30 03/12/17 07:21 03/12/17 11:00 Nasal Screen MRSA (PCR) Negative (Negative) White Blood Count 6.9 x10^3/uL (4.0-11.0) Red Blood Count 2.39 x10^6/uL (4.30-5.70) Hemoglobin 7.4 g/dL (13.0-17.5) Hematocrit 22.1 % (39.0-53.0) Mean Corpuscular Volume 93 fL (79-100) Mean Corpuscular Hemoglobin 31 pg (25-35) Mean Corpuscular Hemoglobin Concent 33 g/dL (31-37) Red Cell Distribution Width 16.7 % (11.5-14.5) Platelet Count 158 x10^3/uL (140-400) Neutrophils (%) (Auto) 74 % (31-73) Lymphocytes (%) (Auto) 11 % (24-48) Monocytes (%) (Auto) 9 % (0-9) Eosinophils (%) (Auto) 5 % (0-3) Basophils (%) (Auto) 1 % (0-3) Neutrophils # (Auto) 5.1 x10^3uL (1.8-7.7) Lymphocytes # (Auto) 0.8 x10^3/uL (1.0-4.8) Monocytes # (Auto) 0.6 x10^3/uL (0.0-1.1) Eosinophils # (Auto) 0.3 x10^3/uL (0.0-0.7) Basophils # (Auto) 0.0 x10^3/uL (0.0-0.2) Sodium Level 145 mmol/L (136-145) Potassium Level 3.8 mmol/L (3.5-5.1) Chloride Level 107 mmol/L (98-107) Carbon Dioxide Level 27 mmol/L (21-32) Anion Gap 11 (6-14) Blood Urea Nitrogen 21 mg/dL (8-26) Creatinine 1.4 mg/dL (0.7-1.3) Estimated GFR (Cockcroft-Gault) 51.2 BUN/Creatinine Ratio 15 (6-20) Glucose Level 203 mg/dL (70-99) Calcium Level 9.4 mg/dL (8.5-10.1) Total Bilirubin 0.5 mg/dL (0.2-1.0) Aspartate Amino Transf (AST/SGOT) 15 U/L (15-37) Alanine Aminotransferase (ALT/SGPT) 15 U/L (16-63) Alkaline Phosphatase 76 U/L (46-116) Total Protein 7.4 g/dL (6.4-8.2) Albumin 2.7 g/dL (3.4-5.0) Albumin/Globulin Ratio 0.6 (1.0-1.7) Triglycerides Level 78 mg/dL (0-150) Cholesterol Level 127 mg/dL (0-200) LDL Cholesterol, Calculated 71 mg/dL (0-100) VLDL Cholesterol, Calculated 16 mg/dL (0-40) Non-HDL Cholesterol Calculated 87 mg/dL (0-129) HDL Cholesterol 40 mg/dL (40-60) Cholesterol/HDL Ratio 3.2 Glucose (Fingerstick) 172 mg/dL (70-99) 172 mg/dL (70-99) Test 03/12/17 16:18 03/12/17 20:20 Glucose (Fingerstick) 183 mg/dL (70-99) 212 mg/dL (70-99) Assessment Assessment Postoperative from ankle fusion with hindfoot nail and external fixator Problems: Plan Plan of Care Continue wound VAC to medial and lateral wounds will obtain x-ray of left ankle AP and lateral due to his recent fall although I see no evidence of malalignment or loosening of any type of the external fixator Continue antibiotics and wound care Weightbearing as tolerated on right leg if able to ambulate safely, continue nonweightbearing on left TIFFANY PAYNE MD Mar 12, 2017 22:07
[2017-03-12 23:05] VITALS: BP 131/74
[2017-03-13] VITALS (11 sets, daily range): BP systolic 113–186; BP diastolic 67–96
[2017-03-13] MEDS: PIPERACILLIN/TAZOBACTAM 3.375 GM in IV NORMAL SALINE 50ML 50 ML IV SCH ×4 (00:29→17:39)
[2017-03-13 05:12] LABS: BASO % 1 % (0-3); EOS % 4 % (0-3); LYMPH # 0.5 x10^3/uL (1.0-4.8); LYMPH % 9 % (24-48); MEAN CORPUSCULAR HEMOGLOBIN 32 pg (25-35); MEAN CORPUSCULAR HGB CONC 34 g/dL (31-37); MEAN CORPUSCULAR VOLUME 93 fL (79-100); MONO % 10 % (0-9); NEUT % 76 % (31-73); PLATELET COUNT 137 x10^3/uL (140-400); RED BLOOD COUNT 2.05 x10^6/uL (4.30-5.70); RED CELL DISTRIBUTION WIDTH 16.8 % (11.5-14.5); WHITE BLOOD COUNT 5.9 x10^3/uL (4.0-11.0)
[2017-03-13 05:14] LABS: CALCIUM 8.9 mg/dL (8.5-10.1); CREATININE 1.2 mg/dL (0.7-1.3); GFR 61.1; POTASSIUM 4.4 mmol/L (3.5-5.1)
[2017-03-13 05:30] LABS: HEMOGLOBIN 6.5 g/dL (13.0-17.5)
--- NOTE | 2017-03-13 06:55 | PDOC ---
Infectious Disease Note Subjective Subjective Doing ok. S/p fall while in bathroom mild rash ROS ROS GEN: Denies fevers, chills, sweats HEENT: Denies blurred vision, sore throat CV: Denies chest pain RESP: Denies shortness of air, cough GI: Denies n/v/d NEURO: Denies confusion, dizziness MSK: Denies weakness, joint pain/swelling Vital Sign Vital Signs Vital Signs Date Time Temp Pulse Resp B/P (MAP) Pulse Ox O2 Delivery O2 Flow Rate FiO2 03/13/17 03:05 98.1 85 20 113/67 (82) 94 Room Air 98.1 03/12/17 20:00 2.0 Physical Exam PHYSICAL EXAM GENERAL: NAD, Alert HEENT: PERRL, OC/OP- clear NECK: Supple, no JVD, no LN LUNGS: Clear HEART: S1S2, no gallop, no murmur ABD: Soft, NT, obese, no rebound EXT: No edema, no cyanosis. Ex - fix in place and vac TANK FARM GAUGER: Alert, 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, no focal neurologic deficit SKIN: No rash IV: PICC - clean Labs Lab Laboratory Tests Test 03/12/17 07:21 03/12/17 11:00 03/12/17 16:18 03/12/17 20:20 Glucose (Fingerstick) 172 mg/dL (70-99) 172 mg/dL (70-99) 183 mg/dL (70-99) 212 mg/dL (70-99) Test 03/13/17 04:05 White Blood Count 5.9 x10^3/uL (4.0-11.0) Red Blood Count 2.05 x10^6/uL (4.30-5.70) Hemoglobin 6.5 g/dL (13.0-17.5) Hematocrit 19.0 % (39.0-53.0) Mean Corpuscular Volume 93 fL (79-100) Mean Corpuscular Hemoglobin 32 pg (25-35) Mean Corpuscular Hemoglobin Concent 34 g/dL (31-37) Red Cell Distribution Width 16.8 % (11.5-14.5) Platelet Count 137 x10^3/uL (140-400) Neutrophils (%) (Auto) 76 % (31-73) Lymphocytes (%) (Auto) 9 % (24-48) Monocytes (%) (Auto) 10 % (0-9) Eosinophils (%) (Auto) 4 % (0-3) Basophils (%) (Auto) 1 % (0-3) Neutrophils # (Auto) 4.4 x10^3uL (1.8-7.7) Lymphocytes # (Auto) 0.5 x10^3/uL (1.0-4.8) Monocytes # (Auto) 0.6 x10^3/uL (0.0-1.1) Eosinophils # (Auto) 0.3 x10^3/uL (0.0-0.7) Basophils # (Auto) 0.0 x10^3/uL (0.0-0.2) Sodium Level 143 mmol/L (136-145) Potassium Level 4.4 mmol/L (3.5-5.1) Chloride Level 106 mmol/L (98-107) Carbon Dioxide Level 29 mmol/L (21-32) Anion Gap 8 (6-14) Blood Urea Nitrogen 19 mg/dL (8-26) Creatinine 1.2 mg/dL (0.7-1.3) Estimated GFR (Cockcroft-Gault) 61.1 Glucose Level 259 mg/dL (70-99) Calcium Level 8.9 mg/dL (8.5-10.1) Objective Assessment Left ankle infection Left foot infection Rt calcaneal Encephalopathy DM Plan Plan of Care cont leg elevation F/u XRAY Cont zosyn Add nystatin supportive care likely will need BKA, though he absolutely refuses RADHA SILVA MD Mar 13, 2017 06:55
[2017-03-13] MEDS: PANTOPRAZOLE 40 MG TABLET.DR. PO SCH (08:05)
[2017-03-13] MEDS: GABAPENTIN 300 MG CAPSULE. PO SCH ×2 (08:05→21:19)
[2017-03-13] MEDS: DOCUSATE SODIUM 100 MG CAPSULE. PO SCH (08:05)
[2017-03-13] MEDS: CITALOPRAM 20 MG TABLET. PO SCH (08:05)
[2017-03-13] MEDS: TAMSULOSIN 0.4 MG CAP.ER.24H. PO SCH ×2 (08:05→21:19)
[2017-03-13] MEDS: metFORMIN 500 MG TABLET PO SCH ×2 (08:05→17:39)
[2017-03-13] MEDS: CELECOXIB 200 MG CAPSULE. PO SCH ×2 (08:05→21:19)
[2017-03-13] MEDS: CLOPIDOGREL BISULFATE 75 MG TABLET PO SCH (08:05)
[2017-03-13] MEDS: ASPIRIN 325 MG TABLET PO SCH (08:05)
[2017-03-13] MEDS: LOSARTAN POTASSIUM 50 MG TABLET. PO SCH (08:06)
[2017-03-13] MEDS: CHOLECALCIFEROL (VITAMIN D3) 1,000 UNIT TABLET PO SCH (08:06)
[2017-03-13] MEDS: NYSTATIN TOPICAL POWDER 15GM BOTTLE. TP SCH ×2 (08:13→21:19)
[2017-03-13] MEDS: INSULIN ASPART 300 UNITS/3 ML INSULN.PEN SQ SCH ×3 (08:16→17:46)
[2017-03-13] MEDS: IPRATRPIUM/ALBUTEROL 0.5/2.5MG 3 ML NEBU. NEB SCH ×5 (08:31→19:41)
--- NOTE | 2017-03-13 09:44 | RAD ---
Left ankle 2 views. History: Previous ankle and subtalar fusion with hindfoot nail, recent fall AP and lateral views were taken of the ankle. The external fixating device obscures visualization. There is a harsh through the calcaneus, talus and vertical through the tibia for an ankle fusion. There is extensive vascular calcification. On the lateral view there is deformity of the talus suggesting a displaced fracture through the neck of the talus. CT imaging or additional oblique views at the ankle could be of benefit. There is extensive soft tissue swelling. Harsh appears unchanged in position. Impression: 1. Probable fracture through the neck of the talus, additional imaging would be of benefit.
--- NOTE | 2017-03-13 12:58 | PDOC ---
PROGRESS NOTES Chief Complaint Chief Complaint Fall Aphasia PMH: HTN Hyperlipidemia Peripheral Neuropathy CVA GERD Depression CRI History of Present Illness History of Present Illness Pt was awake and laying in bed. Pt was conversant. He was actively undergoing transfusion while I was in the room. Discussed keeping him in the hospital until his low Hgb/Hct resolves at least. Infectious disease: continue zosyn and add Nystatin will likely need BKA Nephro: elevate leg for drainage purposes will likely need BKA Ortho: NWB LLE, wound vac Neuro: cont. Plavix 75 mg cont. ASA cont. Lipitor See vascular surgery outpatient Vitals Vitals Vital Signs Date Time Temp Pulse Resp B/P (MAP) Pulse Ox O2 Delivery O2 Flow Rate FiO2 03/13/17 11:33 98.6 80 16 126/80 98.6 03/13/17 11:06 Room Air 03/13/17 10:40 98 03/12/17 20:00 2.0 Physical Exam General: Alert, Oriented X3, Cooperative, No acute distress Heart: Regular rate, Normal S1, Normal S2 Lungs: Clear, Other Abdomen: Normal bowel sounds, Soft Extremities: No cyanosis, Other (L foot and ankle with ext fixator, ) Skin: No rashes, Other (wound vac over wound; wound clean, dry and intact) Labs LABS Laboratory Tests Test 03/12/17 16:18 03/12/17 20:20 03/13/17 04:05 03/13/17 07:55 Glucose (Fingerstick) 183 mg/dL (70-99) 212 mg/dL (70-99) 190 mg/dL (70-99) White Blood Count 5.9 x10^3/uL (4.0-11.0) Red Blood Count 2.05 x10^6/uL (4.30-5.70) Hemoglobin 6.5 g/dL (13.0-17.5) Hematocrit 19.0 % (39.0-53.0) Mean Corpuscular Volume 93 fL (79-100) Mean Corpuscular Hemoglobin 32 pg (25-35) Mean Corpuscular Hemoglobin Concent 34 g/dL (31-37) Red Cell Distribution Width 16.8 % (11.5-14.5) Platelet Count 137 x10^3/uL (140-400) Neutrophils (%) (Auto) 76 % (31-73) Lymphocytes (%) (Auto) 9 % (24-48) Monocytes (%) (Auto) 10 % (0-9) Eosinophils (%) (Auto) 4 % (0-3) Basophils (%) (Auto) 1 % (0-3) Neutrophils # (Auto) 4.4 x10^3uL (1.8-7.7) Lymphocytes # (Auto) 0.5 x10^3/uL (1.0-4.8) Monocytes # (Auto) 0.6 x10^3/uL (0.0-1.1) Eosinophils # (Auto) 0.3 x10^3/uL (0.0-0.7) Basophils # (Auto) 0.0 x10^3/uL (0.0-0.2) Sodium Level 143 mmol/L (136-145) Potassium Level 4.4 mmol/L (3.5-5.1) Chloride Level 106 mmol/L (98-107) Carbon Dioxide Level 29 mmol/L (21-32) Anion Gap 8 (6-14) Blood Urea Nitrogen 19 mg/dL (8-26) Creatinine 1.2 mg/dL (0.7-1.3) Estimated GFR (Cockcroft-Gault) 61.1 Glucose Level 259 mg/dL (70-99) Calcium Level 8.9 mg/dL (8.5-10.1) Test 03/13/17 10:50 Glucose (Fingerstick) 244 mg/dL (70-99) Review of Systems Review of Systems Pt complains of weakness PT complains of fatigue Pt complains of hunger Assessment and Plan Assessmemt and Plan Assessment: Fall Aphasia PMH: HTN Hyperlipidemia Peripheral Neuropathy CVA GERD Depression CRI Plan: Transfuse 1 unit of blood Recheck labs Cont. medications Cont. monitoring Appreciate subspecialty input PT/OT as tolerated Problems: Comment Review of Relevant I have reviewed the following items lauryn (where applicable) has been applied. Labs Laboratory Tests Test 03/11/17 15:40 03/11/17 18:00 03/11/17 21:55 03/11/17 22:30 White Blood Count 7.8 x10^3/uL (4.0-11.0) Red Blood Count 2.23 x10^6/uL (4.30-5.70) Hemoglobin 7.1 g/dL (13.0-17.5) Hematocrit 20.2 % (39.0-53.0) Mean Corpuscular Volume 91 fL (79-100) Mean Corpuscular Hemoglobin 32 pg (25-35) Mean Corpuscular Hemoglobin Concent 35 g/dL (31-37) Red Cell Distribution Width 16.9 % (11.5-14.5) Platelet Count 166 x10^3/uL (140-400) Prothrombin Time 15.5 SEC (11.7-14.0) Prothromb Time International Ratio 1.3 (0.8-1.1) Activated Partial Thromboplast Time 33 SEC (24-38) Sodium Level 143 mmol/L (136-145) Potassium Level 3.8 mmol/L (3.5-5.1) Chloride Level 106 mmol/L (98-107) Carbon Dioxide Level 26 mmol/L (21-32) Anion Gap 11 (6-14) Blood Urea Nitrogen 22 mg/dL (8-26) Creatinine 1.6 mg/dL (0.7-1.3) Estimated GFR (Cockcroft-Gault) 43.9 Glucose Level 168 mg/dL (70-99) Calcium Level 9.0 mg/dL (8.5-10.1) Troponin I Quantitative < 0.017 ng/mL (0.000-0.055) Vitamin B12 Level 421 pg/mL (247-911) Thyroid Stimulating Hormone (TSH) 1.245 uIU/mL (0.358-3.74) Urine Collection Type Unknown Urine Color Yellow Urine Clarity Clear Urine pH 5.5 Urine Specific [place] 1.015 Urine Protein Negative mg/dL (NEG-TRACE) Urine Glucose (UA) Negative mg/dL (NEG) Urine Ketones (Stick) Negative mg/dL (NEG) Urine Blood Negative (NEG) Urine Nitrite Negative (NEG) Urine Bilirubin Negative (NEG) Urine Urobilinogen Dipstick 0.2 mg/dL (0.2 mg/dL) Urine Leukocyte Esterase Negative (NEG) Urine RBC 0 /HPF (0-2) Urine WBC 0 /HPF (0-4) Urine Squamous Epithelial Cells None /LPF Urine Bacteria 0 /HPF (0-FEW) Urine Hyaline Casts Few /HPF Urine Mucus Slight /LPF Urine Opiates Screen Pos (NEG) Urine Methadone Screen Neg (NEG) Urine Barbiturates Neg (NEG) Urine Phencyclidine Screen Neg (NEG) Urine Amphetamine/Methamphetamine Neg (NEG) Urine Benzodiazepines Screen Neg (NEG) Urine Cocaine Screen Neg (NEG) Urine Cannabinoids Screen Neg (NEG) Urine Ethyl Alcohol Neg (NEG) Glucose (Fingerstick) 215 mg/dL (70-99) Nasal Screen MRSA (PCR) Negative (Negative) Test 03/12/17 04:30 03/12/17 07:21 03/12/17 11:00 03/12/17 16:18 White Blood Count 6.9 x10^3/uL (4.0-11.0) Red Blood Count 2.39 x10^6/uL (4.30-5.70) Hemoglobin 7.4 g/dL (13.0-17.5) Hematocrit 22.1 % (39.0-53.0) Mean Corpuscular Volume 93 fL (79-100) Mean Corpuscular Hemoglobin 31 pg (25-35) Mean Corpuscular Hemoglobin Concent 33 g/dL (31-37) Red Cell Distribution Width 16.7 % (11.5-14.5) Platelet Count 158 x10^3/uL (140-400) Neutrophils (%) (Auto) 74 % (31-73) Lymphocytes (%) (Auto) 11 % (24-48) Monocytes (%) (Auto) 9 % (0-9) Eosinophils (%) (Auto) 5 % (0-3) Basophils (%) (Auto) 1 % (0-3) Neutrophils # (Auto) 5.1 x10^3uL (1.8-7.7) Lymphocytes # (Auto) 0.8 x10^3/uL (1.0-4.8) Monocytes # (Auto) 0.6 x10^3/uL (0.0-1.1) Eosinophils # (Auto) 0.3 x10^3/uL (0.0-0.7) Basophils # (Auto) 0.0 x10^3/uL (0.0-0.2) Sodium Level 145 mmol/L (136-145) Potassium Level 3.8 mmol/L (3.5-5.1) Chloride Level 107 mmol/L (98-107) Carbon Dioxide Level 27 mmol/L (21-32) Anion Gap 11 (6-14) Blood Urea Nitrogen 21 mg/dL (8-26) Creatinine 1.4 mg/dL (0.7-1.3) Estimated GFR (Cockcroft-Gault) 51.2 BUN/Creatinine Ratio 15 (6-20) Glucose Level 203 mg/dL (70-99) Calcium Level 9.4 mg/dL (8.5-10.1) Total Bilirubin 0.5 mg/dL (0.2-1.0) Aspartate Amino Transf (AST/SGOT) 15 U/L (15-37) Alanine Aminotransferase (ALT/SGPT) 15 U/L (16-63) Alkaline Phosphatase 76 U/L (46-116) Total Protein 7.4 g/dL (6.4-8.2) Albumin 2.7 g/dL (3.4-5.0) Albumin/Globulin Ratio 0.6 (1.0-1.7) Triglycerides Level 78 mg/dL (0-150) Cholesterol Level 127 mg/dL (0-200) LDL Cholesterol, Calculated 71 mg/dL (0-100) VLDL Cholesterol, Calculated 16 mg/dL (0-40) Non-HDL Cholesterol Calculated 87 mg/dL (0-129) HDL Cholesterol 40 mg/dL (40-60) Cholesterol/HDL Ratio 3.2 Glucose (Fingerstick) 172 mg/dL (70-99) 172 mg/dL (70-99) 183 mg/dL (70-99) Test 03/12/17 20:20 03/13/17 04:05 03/13/17 07:55 03/13/17 10:50 Glucose (Fingerstick) 212 mg/dL (70-99) 190 mg/dL (70-99) 244 mg/dL (70-99) White Blood Count 5.9 x10^3/uL (4.0-11.0) Red Blood Count 2.05 x10^6/uL (4.30-5.70) Hemoglobin 6.5 g/dL (13.0-17.5) Hematocrit 19.0 % (39.0-53.0) Mean Corpuscular Volume 93 fL (79-100) Mean Corpuscular Hemoglobin 32 pg (25-35) Mean Corpuscular Hemoglobin Concent 34 g/dL (31-37) Red Cell Distribution Width 16.8 % (11.5-14.5) Platelet Count 137 x10^3/uL (140-400) Neutrophils (%) (Auto) 76 % (31-73) Lymphocytes (%) (Auto) 9 % (24-48) Monocytes (%) (Auto) 10 % (0-9) Eosinophils (%) (Auto) 4 % (0-3) Basophils (%) (Auto) 1 % (0-3) Neutrophils # (Auto) 4.4 x10^3uL (1.8-7.7) Lymphocytes # (Auto) 0.5 x10^3/uL (1.0-4.8) Monocytes # (Auto) 0.6 x10^3/uL (0.0-1.1) Eosinophils # (Auto) 0.3 x10^3/uL (0.0-0.7) Basophils # (Auto) 0.0 x10^3/uL (0.0-0.2) Sodium Level 143 mmol/L (136-145) Potassium Level 4.4 mmol/L (3.5-5.1) Chloride Level 106 mmol/L (98-107) Carbon Dioxide Level 29 mmol/L (21-32) Anion Gap 8 (6-14) Blood Urea Nitrogen 19 mg/dL (8-26) Creatinine 1.2 mg/dL (0.7-1.3) Estimated GFR (Cockcroft-Gault) 61.1 Glucose Level 259 mg/dL (70-99) Calcium Level 8.9 mg/dL (8.5-10.1) Laboratory Tests Test 03/12/17 16:18 03/12/17 20:20 03/13/17 04:05 03/13/17 07:55 Glucose (Fingerstick) 183 mg/dL (70-99) 212 mg/dL (70-99) 190 mg/dL (70-99) White Blood Count 5.9 x10^3/uL (4.0-11.0) Red Blood Count 2.05 x10^6/uL (4.30-5.70) Hemoglobin 6.5 g/dL (13.0-17.5) Hematocrit 19.0 % (39.0-53.0) Mean Corpuscular Volume 93 fL (79-100) Mean Corpuscular Hemoglobin 32 pg (25-35) Mean Corpuscular Hemoglobin Concent 34 g/dL (31-37) Red Cell Distribution Width 16.8 % (11.5-14.5) Platelet Count 137 x10^3/uL (140-400) Neutrophils (%) (Auto) 76 % (31-73) Lymphocytes (%) (Auto) 9 % (24-48) Monocytes (%) (Auto) 10 % (0-9) Eosinophils (%) (Auto) 4 % (0-3) Basophils (%) (Auto) 1 % (0-3) Neutrophils # (Auto) 4.4 x10^3uL (1.8-7.7) Lymphocytes # (Auto) 0.5 x10^3/uL (1.0-4.8) Monocytes # (Auto) 0.6 x10^3/uL (0.0-1.1) Eosinophils # (Auto) 0.3 x10^3/uL (0.0-0.7) Basophils # (Auto) 0.0 x10^3/uL (0.0-0.2) Sodium Level 143 mmol/L (136-145) Potassium Level 4.4 mmol/L (3.5-5.1) Chloride Level 106 mmol/L (98-107) Carbon Dioxide Level 29 mmol/L (21-32) Anion Gap 8 (6-14) Blood Urea Nitrogen 19 mg/dL (8-26) Creatinine 1.2 mg/dL (0.7-1.3) Estimated GFR (Cockcroft-Gault) 61.1 Glucose Level 259 mg/dL (70-99) Calcium Level 8.9 mg/dL (8.5-10.1) Test 03/13/17 10:50 Glucose (Fingerstick) 244 mg/dL (70-99) Medications Current Medications Diphenhydramine HCl (Benadryl) 50 mg 1X ONCE IVP Last administered on t 17:11; Start 03/11/17 at 15:30; Stop 03/11/17 at 15:32; Status DC Ondansetron HCl (Zofran) 4 mg PRN Q8HRS PRN IV NAUSEA/VOMITING; Start 03/11/17 at 18:30; Stop 03/12/17 at 18:29; Status DC Morphine Sulfate 4 mg PRN Q2HR PRN IV PAIN; Start 03/11/17 at 18:30; Stop 03/12 at 18:29; Status DC Acetaminophen (Tylenol) 650 mg PRN Q4HRS PRN PO FEVER; Start 03/11/17 at 18:30 ; Stop 03/12/17 at 18:29; Status DC Clopidogrel Bisulfate (Plavix) 75 mg 1X ONCE PO Last administered on 18:48; Start 03/11/17 at 18:30; Stop 03/11/17 at 18:31; Status DC Aspirin (Omkar Aspirin) 325 mg DAILY PO Last administered on 03/13/17 08:05; Start 03/12/17 at 09:00 Atorvastatin Calcium (Lipitor) 20 mg QHS PO Last administered on 03/12/17 20: 41; Start 03/11/17 at 21:00 Celecoxib (CeleBREX) 200 mg BID PO Last administered on 03/13/17 08:05; Start 03/11/17 at 21:00 Vitamin D (Vitamin D3) 1,000 unit DAILY PO Last administered on 03/13/17 08:06 ; Start 03/12/17 at 09:00 Clopidogrel Bisulfate (Plavix) 75 mg DAILY PO Last administered on 03/13/17 08 :05; Start 03/12/17 at 09:00 Docusate Sodium (Colace) 100 mg DAILY PO Last administered on 03/13/17 08:05; Start 03/12/17 at 09:00 Fentanyl (Duragesic 75mcg/ Hr Patch) 1 patch Q3DAYS TD Last administered on 13:37; Start 03/12/17 at 09:00 Acetaminophen/ Hydrocodone Bitart (Lortab 7.5/325) 1 tab PRN Q4HRS PRN PO MODERATE PAIN; Start 03/11/17 at 19:30 Losartan Potassium (Cozaar) 50 mg DAILY PO Last administered on 03/13/17 08:06 ; Start 03/12/17 at 09:00 Metformin HCl (Glucophage) 500 mg BIDWMEALS PO Last administered on 03/13/17 08:05; Start 03/12/17 at 08:00 Pantoprazole Sodium (Protonix) 40 mg DAILYAC PO Last administered on 03/13/17 08:05; Start 03/12/17 at 07:30 Tamsulosin HCl (Flomax) 0.4 mg BID PO Last administered on 03/13/17 08:05; Start 03/11/17 at 21:00 Tamsulosin HCl (Flomax) 0.4 mg HS PO ; Start 03/11/17 at 21:00; Status UNV Citalopram Hydrobromide (CeleXA) 40 mg DAILY PO Last administered on 03/13/17 08:05; Start 03/12/17 at 09:00 Gabapentin (Neurontin) 300 mg BID PO Last administered on 03/13/17 08:05; Start 03/11/17 at 21:00 Insulin Detemir (Levemir) 22 units QHS SQ Last administered on 03/12/17 20:47 ; Start 03/11/17 at 21:00 Non-Formulary Medication 3.375 gm Q6HRS IV ; Start 03/12/17 at 00:00; Status UNV Insulin Aspart (NovoLOG) TIDWMEALS SQ Last administered on 03/13/17 12:45; Start 03/12/17 at 08:00 Dextrose (Dextrose 50%-Water Syringe) 12.5 gm PRN Q15MIN PRN IV SEE COMMENTS; Start 03/11/17 at 19:30 Piperacillin Sod/ Tazobactam Sod 3.375 gm/Sodium Chloride 50 ml @ 100 mls/hr Q6HRS IV Last administered on 03/13/17 12:37; Start 03/12/17 at 00:00 Hydromorphone HCl (Dilaudid) 0.5 mg PRN Q3HRS PRN IVP SEVERE PAIN Last administered on 03/12/17 07:55; Start 03/11/17 at 23:15 Albuterol/ Ipratropium (Duoneb) 3 ml RTQID NEB Last administered on 03/13/17 11:05; Start 03/12/17 at 08:00 Albuterol Sulfate (Ventolin Neb Soln) 2.5 mg PRN Q4HRS PRN NEB SHORTNESS OF BREATH; Start 03/12/17 at 06:00 Nystatin (Nystop) 1 rae BID TP Last administered on 03/13/17 08:13; Start at 09:00 Active Scripts Active Hydrocodone-Apap 7.5-325 (Hydrocodone Bit/Acetaminophen) 1 Each Tablet 1 Tab PO PRN Q4HRS PRN Reported Tamsulosin Hcl 0.4 Mg Cap.er.24h 1 Cap PO DAILY Zosyn 3.375 Gm Galaxy Bag (Sgxdeccfrumt-Leiv-Zgyuwvnn,Iso) 3.375 Gm/50 Ml Froz.piggy 3.375 Gm IV Q6HRS Novolog (Insulin Aspart) 100 Unit/1 Ml Cartridge 15 Unit SQ TIDAC Pantoprazole Sodium 40 Mg Tablet.dr 40 Mg PO DAILY Levemir (Insulin Detemir) 100 Unit/1 Ml Vial 22 Unit SQ HS FENTANYL 75mcg/hr (Fentanyl) 1 Each Patch.td72 1 Patch TP Q3DAYS Colace (Docusate Sodium) 100 Mg Capsule 1 Cap PO DAILY Aspirin 325 Mg Tablet 1 Tab PO DAILY Vitamin D3 (Cholecalciferol (Vitamin D3)) 1,000 Unit Tablet 1 Tab PO DAILY Losartan Potassium 50 Mg Tablet 50 Mg PO DAILY Gabapentin 300 Mg Capsule 300 Mg PO BID Celebrex (Celecoxib) 200 Mg Capsule 200 Mg PO BID 30 Days Citalopram Hbr (Citalopram Hydrobromide) 40 Mg Tablet 40 Mg PO DAILY Lipitor (Atorvastatin Calcium) 20 Mg Tablet 20 Mg PO QHS Flomax (Tamsulosin Hcl) 0.4 Mg Cap.er.24h 0.4 Mg PO HS Metformin Hcl 500 Mg Tablet 500 Mg PO BID Plavix (Clopidogrel Bisulfate) 75 Mg Tablet 75 Mg PO DAILY Vitals/I & O Vital Sign - Last 24 Hours 03/12/17 03/12/17 03/12/17 03/12/17 13:34 13:37 13:55 15:00 Temp 98.8 98.8 Pulse 86 93 Resp 20 B/P (MAP) 138/60 137/67 (90) Pulse Ox 97 97 94 O2 Delivery Nasal Cannula Nasal Cannula Nasal Cannula O2 Flow Rate 2.0 2.0 2.0 03/12/17 03/12/17 03/12/17 03/12/17 15:31 19:05 19:39 20:00 Temp 98.0 98.0 Pulse 93 Resp 20 B/P (MAP) 124/79 (94) Pulse Ox 94 O2 Delivery Room Air Nasal Cannula Room Air Nasal Cannula O2 Flow Rate 2.0 2.0 03/12/17 03/13/17 03/13/17 03/13/17 23:05 03:05 07:10 08:06 Temp 97.3 98.1 98.6 97.3 98.1 98.6 Pulse 89 85 92 85 Resp 20 20 20 B/P (MAP) 131/74 (93) 113/67 (82) 138/77 (97) 113/67 Pulse Ox 95 94 94 O2 Delivery Room Air Room Air Room Air 03/13/17 03/13/17 03/13/17 03/13/17 08:25 08:33 10:26 10:40 Temp 98.4 98.4 98.4 98.4 Pulse 86 89 Resp 16 20 B/P (MAP) 141/89 151/83 (105) Pulse Ox 93 98 O2 Delivery Room Air Room Air Room Air 03/13/17 03/13/17 03/13/17 10:42 11:06 11:33 Temp 97.9 98.6 97.9 98.6 Pulse 83 80 Resp 18 16 B/P (MAP) 128/78 126/80 O2 Delivery Room Air Intake and Output 03/13/17 03/13/17 03/14/17 15:00 23:00 07:00 Intake Total 227 ml Balance 227 ml PRATIBHA FATIMA III DO Mar 13, 2017 12:58
[2017-03-13 17:16] LABS: BASO % 1 % (0-3); EOS % 6 % (0-3); HEMATOCRIT 21.1 % (39.0-53.0); HEMOGLOBIN 7.1 g/dL (13.0-17.5); LYMPH # 0.6 x10^3/uL (1.0-4.8); LYMPH % 11 % (24-48); MEAN CORPUSCULAR HEMOGLOBIN 31 pg (25-35); MEAN CORPUSCULAR HGB CONC 34 g/dL (31-37); MEAN CORPUSCULAR VOLUME 92 fL (79-100); MONO % 10 % (0-9); NEUT % 73 % (31-73); PLATELET COUNT 140 x10^3/uL (140-400); RED BLOOD COUNT 2.29 x10^6/uL (4.30-5.70); RED CELL DISTRIBUTION WIDTH 17.3 % (11.5-14.5); WHITE BLOOD COUNT 5.2 x10^3/uL (4.0-11.0)
[2017-03-13 17:19] LABS: CALCIUM 9.3 mg/dL (8.5-10.1); CREATININE 1.1 mg/dL (0.7-1.3); GFR 67.6; POTASSIUM 3.8 mmol/L (3.5-5.1)
[2017-03-13 17:24] LABS: ALBUMIN 2.6 g/dL (3.4-5.0); ALBUMIN/GLOBULIN RATIO 0.6 (1.0-1.7); MAGNESIUM 1.6 mg/dL (1.8-2.4); TOTAL BILIRUBIN 0.5 mg/dL (0.2-1.0); TOTAL PROTEIN 7.1 g/dL (6.4-8.2)
--- NOTE | 2017-03-13 17:26 | RAD ---
CT CODE STROKE HEAD WO dated 03/13/2017 4:43 PM Indication:SUDDEN ONSET OF AMS
PRIOR SENT Comparison: 03/11/2017. Technique: Noncontrast images were obtained. One or more of the following individualized dose reduction techniques were utilized for this examination: 1. Automated exposure control 2. Adjustment of the mA and/or kV according to patient size 3. Use of iterative reconstruction technique Findings: There is no apparent intracranial mass, hemorrhage or abnormal extra-axial fluid collection. No new area of abnormal density is identified in the brain. The ventricles and basilar cisterns are normally positioned. The sinuses and mastoid air cells appear clear. IMPRESSION: No apparent acute intracranial abnormality or change from the prior study. Critical results were telephoned to the patient's nurse Kacy at 1720. Electronically signed by: Hay Benedict Jr., MD (03/13/2017 5:23 PM) [facility]
[2017-03-13] MEDS ORDERED: MAGNESIUM SULFATE 2GM 50 ML IV ONE (18:15)
[2017-03-13] MEDS: ATORVASTATIN CALCIUM 20 MG TABLET PO SCH (21:19)
[2017-03-13] MEDS: INSULIN DETEMIR 300 UNITS/3 ML INSULN.PEN. SQ SCH (21:29)
[2017-03-14] MEDS: PIPERACILLIN/TAZOBACTAM 3.375 GM in IV NORMAL SALINE 50ML 50 ML IV SCH ×4 (00:09→17:22)
[2017-03-14 03:03] VITALS: BP 141/80
[2017-03-14] MEDS: NYSTATIN TOPICAL POWDER 15GM BOTTLE. TP SCH ×2 (06:31→21:29)
[2017-03-14 06:55] VITALS: BP 112/79
[2017-03-14] MEDS: IPRATRPIUM/ALBUTEROL 0.5/2.5MG 3 ML NEBU. NEB SCH ×4 (07:33→19:27)
[2017-03-14] MEDS: CHOLECALCIFEROL (VITAMIN D3) 1,000 UNIT TABLET PO SCH (08:10)
[2017-03-14] MEDS: DOCUSATE SODIUM 100 MG CAPSULE. PO SCH (08:10)
[2017-03-14] MEDS: TAMSULOSIN 0.4 MG CAP.ER.24H. PO SCH ×2 (08:10→21:28)
[2017-03-14] MEDS: metFORMIN 500 MG TABLET PO SCH ×2 (08:10→17:21)
[2017-03-14] MEDS: CELECOXIB 200 MG CAPSULE. PO SCH ×2 (08:10→21:28)
[2017-03-14] MEDS: CLOPIDOGREL BISULFATE 75 MG TABLET PO SCH (08:11)
[2017-03-14] MEDS: CITALOPRAM 20 MG TABLET. PO SCH (08:11)
[2017-03-14] MEDS: PANTOPRAZOLE 40 MG TABLET.DR. PO SCH (08:11)
[2017-03-14] MEDS: GABAPENTIN 300 MG CAPSULE. PO SCH ×2 (08:11→21:28)
[2017-03-14] MEDS: ASPIRIN 325 MG TABLET PO SCH (08:11)
[2017-03-14] MEDS: LOSARTAN POTASSIUM 50 MG TABLET. PO SCH (08:12)
[2017-03-14] MEDS: INSULIN ASPART 300 UNITS/3 ML INSULN.PEN SQ SCH ×3 (08:17→17:25)
[2017-03-14 09:05] LABS: BASO # 0.1 x10^3/uL (0.0-0.2); BASO % 1 % (0-3); EOS % 5 % (0-3); HEMATOCRIT 21.5 % (39.0-53.0); HEMOGLOBIN 7.3 g/dL (13.0-17.5); LYMPH # 0.5 x10^3/uL (1.0-4.8); LYMPH % 9 % (24-48); MEAN CORPUSCULAR HEMOGLOBIN 31 pg (25-35); MEAN CORPUSCULAR HGB CONC 34 g/dL (31-37); MEAN CORPUSCULAR VOLUME 92 fL (79-100); MONO % 8 % (0-9); NEUT % 77 % (31-73); PLATELET COUNT 132 x10^3/uL (140-400); RED BLOOD COUNT 2.34 x10^6/uL (4.30-5.70)
[2017-03-14 10:04] LABS: CALCIUM 9.3 mg/dL (8.5-10.1); CREATININE 1.1 mg/dL (0.7-1.3); GFR 67.6; POTASSIUM 3.9 mmol/L (3.5-5.1)
--- NOTE | 2017-03-14 10:29 | PDOC ---
Infectious Disease Note Subjective Subjective Periods of confusion, s/p rapid response, CT head neg c/o mild let foot pain ROS ROS GEN: Denies fevers, chills, sweats CV: Denies chest pain RESP: Denies shortness of air, cough GI: Denies n/v/d Vital Sign Vital Signs Vital Signs Date Time Temp Pulse Resp B/P (MAP) Pulse Ox O2 Delivery O2 Flow Rate FiO2 03/14/17 08:12 88 112/79 03/14/17 08:00 Nasal Cannula 2.0 03/14/17 07:34 98 03/14/17 06:55 98.8 20 98.8 Physical Exam PHYSICAL EXAM GENERAL: Sleeping, snoring, arouses easily to name HEENT: OC/OP dry LUNGS: Clear HEART: S1 and S2 ABD: Obese, soft, NT EXT: Left foot trace edema, no cyanosis, external fixator intact; right foot bandaged (reviewed pics) DIRECTOR OF GRADUATE ADMISSIONS: Responds appropriately SKIN: No rash LUE-PICC. clean Labs Lab Laboratory Tests Test 03/13/17 10:50 03/13/17 16:06 03/13/17 16:35 03/13/17 17:00 Glucose (Fingerstick) 244 mg/dL (70-99) 263 mg/dL (70-99) 238 mg/dL (70-99) White Blood Count 5.2 x10^3/uL (4.0-11.0) Red Blood Count 2.29 x10^6/uL (4.30-5.70) Hemoglobin 7.1 g/dL (13.0-17.5) Hematocrit 21.1 % (39.0-53.0) Mean Corpuscular Volume 92 fL (79-100) Mean Corpuscular Hemoglobin 31 pg (25-35) Mean Corpuscular Hemoglobin Concent 34 g/dL (31-37) Red Cell Distribution Width 17.3 % (11.5-14.5) Platelet Count 140 x10^3/uL (140-400) Neutrophils (%) (Auto) 73 % (31-73) Lymphocytes (%) (Auto) 11 % (24-48) Monocytes (%) (Auto) 10 % (0-9) Eosinophils (%) (Auto) 6 % (0-3) Basophils (%) (Auto) 1 % (0-3) Neutrophils # (Auto) 3.8 x10^3uL (1.8-7.7) Lymphocytes # (Auto) 0.6 x10^3/uL (1.0-4.8) Monocytes # (Auto) 0.5 x10^3/uL (0.0-1.1) Eosinophils # (Auto) 0.3 x10^3/uL (0.0-0.7) Basophils # (Auto) 0.0 x10^3/uL (0.0-0.2) Sodium Level 142 mmol/L (136-145) Potassium Level 3.8 mmol/L (3.5-5.1) Chloride Level 106 mmol/L (98-107) Carbon Dioxide Level 28 mmol/L (21-32) Anion Gap 8 (6-14) Blood Urea Nitrogen 18 mg/dL (8-26) Creatinine 1.1 mg/dL (0.7-1.3) Estimated GFR (Cockcroft-Gault) 67.6 BUN/Creatinine Ratio 16 (6-20) Glucose Level 255 mg/dL (70-99) Lactic Acid Level 1.5 mmol/L (0.4-2.0) Calcium Level 9.3 mg/dL (8.5-10.1) Magnesium Level 1.6 mg/dL (1.8-2.4) Total Bilirubin 0.5 mg/dL (0.2-1.0) Aspartate Amino Transf (AST/SGOT) 11 U/L (15-37) Alanine Aminotransferase (ALT/SGPT) 13 U/L (16-63) Alkaline Phosphatase 76 U/L (46-116) Total Protein 7.1 g/dL (6.4-8.2) Albumin 2.6 g/dL (3.4-5.0) Albumin/Globulin Ratio 0.6 (1.0-1.7) Test 03/14/17 07:29 03/14/17 08:50 Glucose (Fingerstick) 213 mg/dL (70-99) White Blood Count 6.0 x10^3/uL (4.0-11.0) Red Blood Count 2.34 x10^6/uL (4.30-5.70) Hemoglobin 7.3 g/dL (13.0-17.5) Hematocrit 21.5 % (39.0-53.0) Mean Corpuscular Volume 92 fL (79-100) Mean Corpuscular Hemoglobin 31 pg (25-35) Mean Corpuscular Hemoglobin Concent 34 g/dL (31-37) Red Cell Distribution Width 17.0 % (11.5-14.5) Platelet Count 132 x10^3/uL (140-400) Neutrophils (%) (Auto) 77 % (31-73) Lymphocytes (%) (Auto) 9 % (24-48) Monocytes (%) (Auto) 8 % (0-9) Eosinophils (%) (Auto) 5 % (0-3) Basophils (%) (Auto) 1 % (0-3) Neutrophils # (Auto) 4.6 x10^3uL (1.8-7.7) Lymphocytes # (Auto) 0.5 x10^3/uL (1.0-4.8) Monocytes # (Auto) 0.5 x10^3/uL (0.0-1.1) Eosinophils # (Auto) 0.3 x10^3/uL (0.0-0.7) Basophils # (Auto) 0.1 x10^3/uL (0.0-0.2) Objective Assessment Left ankle infection -hx proteus, PSA, Enterococcus and MSSA Left foot infection Right calcaneal wound - superficial Encephalopathy, CT neg DM ? Talus fracture left Plan Plan of Care Zosyn Nystatin Leg elevation Supportive care likely will need BKA, though he absolutely refuses Await Ortho f/u Attending Co-Sign Attending Co-Sign The patient was seen and interviewed as well as examined at the bedside. The chart was reviewed. The case was discussed. Agree with the plan of care. ULISSES CABEZAS APRN Mar 14, 2017 10:29 RADHA SILVA MD Mar 14, 2017 13:06
--- NOTE | 2017-03-14 10:55 | PDOC2 ---
CONSULT Date of Consult Date of Consult DATE: 03/14/17 TIME: 10:49 Reason for Consult Reason for Consult: Carotid stenosis History of Present Illness Reason for Visit: This is a pleasant 62-year-old male who was admitted for left lower extremity fracture requiring external fixation. Patient has a history of falls at home with questionable TIA versus stroke. I was asked to see the patient to evaluate the carotid ultrasound results that were obtained during this admission. Based on the patient's history to me, he does not give me obvious symptoms of hemispheric stroke with unilateral focal findings. He denies any history of amaurosis. Past Medical History Cardiovascular: HTN, Hyperlipidemia CENTRAL NERVOUS SYSTEM: CVA, Periperal neuropathy, Other GI: GERD Psych: Depression Renal/: Chronic renal insuff, Acute renal failure Endocrine: Diabetes Past Surgical History Past Surgical History: Other Family History Family History: Diabetes, Hypertension Social History ALCOHOL: rare Drugs: None Lives: with Family Current Medications Current Medications Current Medications Diphenhydramine HCl (Benadryl) 50 mg 1X ONCE IVP Last administered on 17:11; Start 03/11/17 at 15:30; Stop 03/11/17 at 15:32; Status DC Ondansetron HCl (Zofran) 4 mg PRN Q8HRS PRN IV NAUSEA/VOMITING; Start 03/11/17 at 18:30; Stop 03/12/17 at 18:29; Status DC Morphine Sulfate 4 mg PRN Q2HR PRN IV PAIN; Start 03/11/17 at 18:30; Stop 03/12 at 18:29; Status DC Acetaminophen (Tylenol) 650 mg PRN Q4HRS PRN PO FEVER; Start 03/11/17 at 18:30 ; Stop 03/12/17 at 18:29; Status DC Clopidogrel Bisulfate (Plavix) 75 mg 1X ONCE PO Last administered on 18:48; Start 03/11/17 at 18:30; Stop 03/11/17 at 18:31; Status DC Aspirin (Omkar Aspirin) 325 mg DAILY PO Last administered on 03/14/17 08:11; Start 03/12/17 at 09:00 Atorvastatin Calcium (Lipitor) 20 mg QHS PO Last administered on 03/13/17 21: 19; Start 03/11/17 at 21:00 Celecoxib (CeleBREX) 200 mg BID PO Last administered on 03/14/17 08:10; Start 03/11/17 at 21:00 Vitamin D (Vitamin D3) 1,000 unit DAILY PO Last administered on 03/14/17 08:10 ; Start 03/12/17 at 09:00 Clopidogrel Bisulfate (Plavix) 75 mg DAILY PO Last administered on 03/14/17 08 :11; Start 03/12/17 at 09:00 Docusate Sodium (Colace) 100 mg DAILY PO Last administered on 03/14/17 08:10; Start 03/12/17 at 09:00 Fentanyl (Duragesic 75mcg/ Hr Patch) 1 patch Q3DAYS TD Last administered on 13:37; Start 03/12/17 at 09:00 Acetaminophen/ Hydrocodone Bitart (Lortab 7.5/325) 1 tab PRN Q4HRS PRN PO MODERATE PAIN; Start 03/11/17 at 19:30 Losartan Potassium (Cozaar) 50 mg DAILY PO Last administered on 03/14/17 08:12 ; Start 03/12/17 at 09:00 Metformin HCl (Glucophage) 500 mg BIDWMEALS PO Last administered on 03/14/17 08:10; Start 03/12/17 at 08:00 Pantoprazole Sodium (Protonix) 40 mg DAILYAC PO Last administered on 03/14/17 08:11; Start 03/12/17 at 07:30 Tamsulosin HCl (Flomax) 0.4 mg BID PO Last administered on 03/14/17 08:10; Start 03/11/17 at 21:00 Tamsulosin HCl (Flomax) 0.4 mg HS PO ; Start 03/11/17 at 21:00; Status UNV Citalopram Hydrobromide (CeleXA) 40 mg DAILY PO Last administered on 03/14/17 08:11; Start 03/12/17 at 09:00 Gabapentin (Neurontin) 300 mg BID PO Last administered on 03/14/17 08:11; Start 03/11/17 at 21:00 Insulin Detemir (Levemir) 22 units QHS SQ Last administered on 03/13/17 21:29 ; Start 03/11/17 at 21:00 Non-Formulary Medication 3.375 gm Q6HRS IV ; Start 03/12/17 at 00:00; Status UNV Insulin Aspart (NovoLOG) TIDWMEALS SQ Last administered on 03/14/17 08:17; Start 03/12/17 at 08:00 Dextrose (Dextrose 50%-Water Syringe) 12.5 gm PRN Q15MIN PRN IV SEE COMMENTS; Start 03/11/17 at 19:30 Piperacillin Sod/ Tazobactam Sod 3.375 gm/Sodium Chloride 50 ml @ 100 mls/hr Q6HRS IV Last administered on 03/14/17 06:30; Start 03/12/17 at 00:00 Hydromorphone HCl (Dilaudid) 0.5 mg PRN Q3HRS PRN IVP SEVERE PAIN Last administered on 03/12/17 07:55; Start 03/11/17 at 23:15 Albuterol/ Ipratropium (Duoneb) 3 ml RTQID NEB Last administered on 03/14/17 07:33; Start 03/12/17 at 08:00 Albuterol Sulfate (Ventolin Neb Soln) 2.5 mg PRN Q4HRS PRN NEB SHORTNESS OF BREATH; Start 03/12/17 at 06:00 Nystatin (Nystop) 1 rae BID TP Last administered on 03/14/17 06:31; Start at 09:00 Magnesium Sulfate/ Dextrose 50 ml @ 25 mls/hr 1X ONCE IV Last administered on 03/13/17 18:31; Start 03/13/17 at 18:15; Stop 03/13/17 at 20:14; Status DC Active Scripts Active Hydrocodone-Apap 7.5-325 (Hydrocodone Bit/Acetaminophen) 1 Each Tablet 1 Tab PO PRN Q4HRS PRN Reported Tamsulosin Hcl 0.4 Mg Cap.er.24h 1 Cap PO DAILY Zosyn 3.375 Gm Galaxy Bag (Rsmxoydmajfa-Sfxf-Ncpzeyfo,Iso) 3.375 Gm/50 Ml Froz.piggy 3.375 Gm IV Q6HRS Novolog (Insulin Aspart) 100 Unit/1 Ml Cartridge 15 Unit SQ TIDAC Pantoprazole Sodium 40 Mg Tablet.dr 40 Mg PO DAILY Levemir (Insulin Detemir) 100 Unit/1 Ml Vial 22 Unit SQ HS FENTANYL 75mcg/hr (Fentanyl) 1 Each Patch.td72 1 Patch TP Q3DAYS Colace (Docusate Sodium) 100 Mg Capsule 1 Cap PO DAILY Aspirin 325 Mg Tablet 1 Tab PO DAILY Vitamin D3 (Cholecalciferol (Vitamin D3)) 1,000 Unit Tablet 1 Tab PO DAILY Losartan Potassium 50 Mg Tablet 50 Mg PO DAILY Gabapentin 300 Mg Capsule 300 Mg PO BID Celebrex (Celecoxib) 200 Mg Capsule 200 Mg PO BID 30 Days Citalopram Hbr (Citalopram Hydrobromide) 40 Mg Tablet 40 Mg PO DAILY Lipitor (Atorvastatin Calcium) 20 Mg Tablet 20 Mg PO QHS Flomax (Tamsulosin Hcl) 0.4 Mg Cap.er.24h 0.4 Mg PO HS Metformin Hcl 500 Mg Tablet 500 Mg PO BID Plavix (Clopidogrel Bisulfate) 75 Mg Tablet 75 Mg PO DAILY Allergies Allergies: Coded Allergies: morphine (Verified Allergy, Intermediate, 02/19/17) causes hallucinations Physical Exam General: Alert, Oriented X3, Cooperative, No acute distress HEENT: Atraumatic, EOMI Lungs: Clear to auscultation, Normal air movement Heart: Regular rate, Normal S1, Normal S2 Abdomen: Normal bowel sounds, Soft, No tenderness, Other (morbidly obese) Extremities: No clubbing, No edema, Other (left lower extremity external fixator in place) Skin: No rashes Neuro: Strength at 5/5 X4 ext, Cranial nerves 3-12 NL Psych/Mental Status: Mental status NL, Mood NL MUSCULOSKELETAL: Other (positive Charcot deformities of both feet) Vitals VITALS Vital Signs Date Time Temp Pulse Resp B/P (MAP) Pulse Ox O2 Delivery O2 Flow Rate FiO2 03/14/17 08:12 88 112/79 03/14/17 08:00 Nasal Cannula 2.0 03/14/17 07:34 98 03/14/17 06:55 98.8 20 98.8 Labs Labs Laboratory Tests Test 03/12/17 11:00 03/12/17 16:18 03/12/17 20:20 03/13/17 04:05 Glucose (Fingerstick) 172 mg/dL (70-99) 183 mg/dL (70-99) 212 mg/dL (70-99) White Blood Count 5.9 x10^3/uL (4.0-11.0) Red Blood Count 2.05 x10^6/uL (4.30-5.70) Hemoglobin 6.5 g/dL (13.0-17.5) Hematocrit 19.0 % (39.0-53.0) Mean Corpuscular Volume 93 fL (79-100) Mean Corpuscular Hemoglobin 32 pg (25-35) Mean Corpuscular Hemoglobin Concent 34 g/dL (31-37) Red Cell Distribution Width 16.8 % (11.5-14.5) Platelet Count 137 x10^3/uL (140-400) Neutrophils (%) (Auto) 76 % (31-73) Lymphocytes (%) (Auto) 9 % (24-48) Monocytes (%) (Auto) 10 % (0-9) Eosinophils (%) (Auto) 4 % (0-3) Basophils (%) (Auto) 1 % (0-3) Neutrophils # (Auto) 4.4 x10^3uL (1.8-7.7) Lymphocytes # (Auto) 0.5 x10^3/uL (1.0-4.8) Monocytes # (Auto) 0.6 x10^3/uL (0.0-1.1) Eosinophils # (Auto) 0.3 x10^3/uL (0.0-0.7) Basophils # (Auto) 0.0 x10^3/uL (0.0-0.2) Sodium Level 143 mmol/L (136-145) Potassium Level 4.4 mmol/L (3.5-5.1) Chloride Level 106 mmol/L (98-107) Carbon Dioxide Level 29 mmol/L (21-32) Anion Gap 8 (6-14) Blood Urea Nitrogen 19 mg/dL (8-26) Creatinine 1.2 mg/dL (0.7-1.3) Estimated GFR (Cockcroft-Gault) 61.1 Glucose Level 259 mg/dL (70-99) Calcium Level 8.9 mg/dL (8.5-10.1) Test 03/13/17 07:55 03/13/17 10:50 03/13/17 16:06 03/13/17 16:35 Glucose (Fingerstick) 190 mg/dL (70-99) 244 mg/dL (70-99) 263 mg/dL (70-99) 238 mg/dL (70-99) Test 03/13/17 17:00 03/14/17 07:29 03/14/17 08:50 White Blood Count 5.2 x10^3/uL (4.0-11.0) 6.0 x10^3/uL (4.0-11.0) Red Blood Count 2.29 x10^6/uL (4.30-5.70) 2.34 x10^6/uL (4.30-5.70) Hemoglobin 7.1 g/dL (13.0-17.5) 7.3 g/dL (13.0-17.5) Hematocrit 21.1 % (39.0-53.0) 21.5 % (39.0-53.0) Mean Corpuscular Volume 92 fL (79-100) 92 fL (79-100) Mean Corpuscular Hemoglobin 31 pg (25-35) 31 pg (25-35) Mean Corpuscular Hemoglobin Concent 34 g/dL (31-37) 34 g/dL (31-37) Red Cell Distribution Width 17.3 % (11.5-14.5) 17.0 % (11.5-14.5) Platelet Count 140 x10^3/uL (140-400) 132 x10^3/uL (140-400) Neutrophils (%) (Auto) 73 % (31-73) 77 % (31-73) Lymphocytes (%) (Auto) 11 % (24-48) 9 % (24-48) Monocytes (%) (Auto) 10 % (0-9) 8 % (0-9) Eosinophils (%) (Auto) 6 % (0-3) 5 % (0-3) Basophils (%) (Auto) 1 % (0-3) 1 % (0-3) Neutrophils # (Auto) 3.8 x10^3uL (1.8-7.7) 4.6 x10^3uL (1.8-7.7) Lymphocytes # (Auto) 0.6 x10^3/uL (1.0-4.8) 0.5 x10^3/uL (1.0-4.8) Monocytes # (Auto) 0.5 x10^3/uL (0.0-1.1) 0.5 x10^3/uL (0.0-1.1) Eosinophils # (Auto) 0.3 x10^3/uL (0.0-0.7) 0.3 x10^3/uL (0.0-0.7) Basophils # (Auto) 0.0 x10^3/uL (0.0-0.2) 0.1 x10^3/uL (0.0-0.2) Sodium Level 142 mmol/L (136-145) 141 mmol/L (136-145) Potassium Level 3.8 mmol/L (3.5-5.1) 3.9 mmol/L (3.5-5.1) Chloride Level 106 mmol/L (98-107) 105 mmol/L (98-107) Carbon Dioxide Level 28 mmol/L (21-32) 27 mmol/L (21-32) Anion Gap 8 (6-14) 9 (6-14) Blood Urea Nitrogen 18 mg/dL (8-26) 18 mg/dL (8-26) Creatinine 1.1 mg/dL (0.7-1.3) 1.1 mg/dL (0.7-1.3) Estimated GFR (Cockcroft-Gault) 67.6 67.6 BUN/Creatinine Ratio 16 (6-20) Glucose Level 255 mg/dL (70-99) 230 mg/dL (70-99) Lactic Acid Level 1.5 mmol/L (0.4-2.0) Calcium Level 9.3 mg/dL (8.5-10.1) 9.3 mg/dL (8.5-10.1) Magnesium Level 1.6 mg/dL (1.8-2.4) Total Bilirubin 0.5 mg/dL (0.2-1.0) Aspartate Amino Transf (AST/SGOT) 11 U/L (15-37) Alanine Aminotransferase (ALT/SGPT) 13 U/L (16-63) Alkaline Phosphatase 76 U/L (46-116) Total Protein 7.1 g/dL (6.4-8.2) Albumin 2.6 g/dL (3.4-5.0) Albumin/Globulin Ratio 0.6 (1.0-1.7) Glucose (Fingerstick) 213 mg/dL (70-99) Laboratory Tests Test 03/13/17 10:50 03/13/17 16:06 03/13/17 16:35 03/13/17 17:00 Glucose (Fingerstick) 244 mg/dL (70-99) 263 mg/dL (70-99) 238 mg/dL (70-99) White Blood Count 5.2 x10^3/uL (4.0-11.0) Red Blood Count 2.29 x10^6/uL (4.30-5.70) Hemoglobin 7.1 g/dL (13.0-17.5) Hematocrit 21.1 % (39.0-53.0) Mean Corpuscular Volume 92 fL (79-100) Mean Corpuscular Hemoglobin 31 pg (25-35) Mean Corpuscular Hemoglobin Concent 34 g/dL (31-37) Red Cell Distribution Width 17.3 % (11.5-14.5) Platelet Count 140 x10^3/uL (140-400) Neutrophils (%) (Auto) 73 % (31-73) Lymphocytes (%) (Auto) 11 % (24-48) Monocytes (%) (Auto) 10 % (0-9) Eosinophils (%) (Auto) 6 % (0-3) Basophils (%) (Auto) 1 % (0-3) Neutrophils # (Auto) 3.8 x10^3uL (1.8-7.7) Lymphocytes # (Auto) 0.6 x10^3/uL (1.0-4.8) Monocytes # (Auto) 0.5 x10^3/uL (0.0-1.1) Eosinophils # (Auto) 0.3 x10^3/uL (0.0-0.7) Basophils # (Auto) 0.0 x10^3/uL (0.0-0.2) Sodium Level 142 mmol/L (136-145) Potassium Level 3.8 mmol/L (3.5-5.1) Chloride Level 106 mmol/L (98-107) Carbon Dioxide Level 28 mmol/L (21-32) Anion Gap 8 (6-14) Blood Urea Nitrogen 18 mg/dL (8-26) Creatinine 1.1 mg/dL (0.7-1.3) Estimated GFR (Cockcroft-Gault) 67.6 BUN/Creatinine Ratio 16 (6-20) Glucose Level 255 mg/dL (70-99) Lactic Acid Level 1.5 mmol/L (0.4-2.0) Calcium Level 9.3 mg/dL (8.5-10.1) Magnesium Level 1.6 mg/dL (1.8-2.4) Total Bilirubin 0.5 mg/dL (0.2-1.0) Aspartate Amino Transf (AST/SGOT) 11 U/L (15-37) Alanine Aminotransferase (ALT/SGPT) 13 U/L (16-63) Alkaline Phosphatase 76 U/L (46-116) Total Protein 7.1 g/dL (6.4-8.2) Albumin 2.6 g/dL (3.4-5.0) Albumin/Globulin Ratio 0.6 (1.0-1.7) Test 03/14/17 07:29 03/14/17 08:50 Glucose (Fingerstick) 213 mg/dL (70-99) White Blood Count 6.0 x10^3/uL (4.0-11.0) Red Blood Count 2.34 x10^6/uL (4.30-5.70) Hemoglobin 7.3 g/dL (13.0-17.5) Hematocrit 21.5 % (39.0-53.0) Mean Corpuscular Volume 92 fL (79-100) Mean Corpuscular Hemoglobin 31 pg (25-35) Mean Corpuscular Hemoglobin Concent 34 g/dL (31-37) Red Cell Distribution Width 17.0 % (11.5-14.5) Platelet Count 132 x10^3/uL (140-400) Neutrophils (%) (Auto) 77 % (31-73) Lymphocytes (%) (Auto) 9 % (24-48) Monocytes (%) (Auto) 8 % (0-9) Eosinophils (%) (Auto) 5 % (0-3) Basophils (%) (Auto) 1 % (0-3) Neutrophils # (Auto) 4.6 x10^3uL (1.8-7.7) Lymphocytes # (Auto) 0.5 x10^3/uL (1.0-4.8) Monocytes # (Auto) 0.5 x10^3/uL (0.0-1.1) Eosinophils # (Auto) 0.3 x10^3/uL (0.0-0.7) Basophils # (Auto) 0.1 x10^3/uL (0.0-0.2) Sodium Level 141 mmol/L (136-145) Potassium Level 3.9 mmol/L (3.5-5.1) Chloride Level 105 mmol/L (98-107) Carbon Dioxide Level 27 mmol/L (21-32) Anion Gap 9 (6-14) Blood Urea Nitrogen 18 mg/dL (8-26) Creatinine 1.1 mg/dL (0.7-1.3) Estimated GFR (Cockcroft-Gault) 67.6 Glucose Level 230 mg/dL (70-99) Calcium Level 9.3 mg/dL (8.5-10.1) Assessment/Plan Assessment/Plan Asymptomatic carotid stenosis--I did review the patient's carotid duplex which reveals near normal carotid velocities with mild atherosclerotic plaque. I do not think that the carotid arteries are related to the patient's events. Rarely do the carotid arteries cause syncope or near syncope. The patient has no focal neurologic deficits. I would recommend given his risk factors, that the patient be on 81 mg aspirin and a high-dose statin with a goal LDL level less than 70. Vascular surgery will otherwise sign off. If there are any questions or concerns regarding his management, please not hesitate to contact us. STACEY LEIGH DO Mar 14, 2017 10:55
[2017-03-14 11:08] VITALS: BP 129/78
--- NOTE | 2017-03-14 12:28 | PDOC ---
PROGRESS NOTES Chief Complaint Chief Complaint Fall Aphasia PMH: HTN Hyperlipidemia Peripheral Neuropathy CVA GERD Depression CRI History of Present Illness History of Present Illness Pt was awake and laying in bed. Pt was conversant. Discussed plan of care with pt and nurse. Discussed going to SNU in 1-2 days after director of social media marketing eval. Pt had an episode last night with pain in the back of the head an bilateral non- responsive pupils. CT was obtained CT was negative for masses, hemorrhage, or fluid Vitals Vitals Vital Signs Date Time Temp Pulse Resp B/P (MAP) Pulse Ox O2 Delivery O2 Flow Rate FiO2 03/14/17 11:13 Nasal Cannula 2.0 03/14/17 11:08 97.6 86 20 129/78 (95) 98 97.6 Physical Exam General: Alert, Oriented X3, Cooperative, No acute distress Heart: Regular rate, Normal S1, Normal S2 Lungs: Clear Abdomen: Normal bowel sounds, Soft, No tenderness, Other (morbidly obese) Extremities: No clubbing, No cyanosis, Other (left lower extremity external fixator in place) Skin: No rashes, Other (LLE wound) Labs LABS Laboratory Tests Test 03/13/17 16:06 03/13/17 16:35 03/13/17 17:00 03/14/17 07:29 Glucose (Fingerstick) 263 mg/dL (70-99) 238 mg/dL (70-99) 213 mg/dL (70-99) White Blood Count 5.2 x10^3/uL (4.0-11.0) Red Blood Count 2.29 x10^6/uL (4.30-5.70) Hemoglobin 7.1 g/dL (13.0-17.5) Hematocrit 21.1 % (39.0-53.0) Mean Corpuscular Volume 92 fL (79-100) Mean Corpuscular Hemoglobin 31 pg (25-35) Mean Corpuscular Hemoglobin Concent 34 g/dL (31-37) Red Cell Distribution Width 17.3 % (11.5-14.5) Platelet Count 140 x10^3/uL (140-400) Neutrophils (%) (Auto) 73 % (31-73) Lymphocytes (%) (Auto) 11 % (24-48) Monocytes (%) (Auto) 10 % (0-9) Eosinophils (%) (Auto) 6 % (0-3) Basophils (%) (Auto) 1 % (0-3) Neutrophils # (Auto) 3.8 x10^3uL (1.8-7.7) Lymphocytes # (Auto) 0.6 x10^3/uL (1.0-4.8) Monocytes # (Auto) 0.5 x10^3/uL (0.0-1.1) Eosinophils # (Auto) 0.3 x10^3/uL (0.0-0.7) Basophils # (Auto) 0.0 x10^3/uL (0.0-0.2) Sodium Level 142 mmol/L (136-145) Potassium Level 3.8 mmol/L (3.5-5.1) Chloride Level 106 mmol/L (98-107) Carbon Dioxide Level 28 mmol/L (21-32) Anion Gap 8 (6-14) Blood Urea Nitrogen 18 mg/dL (8-26) Creatinine 1.1 mg/dL (0.7-1.3) Estimated GFR (Cockcroft-Gault) 67.6 BUN/Creatinine Ratio 16 (6-20) Glucose Level 255 mg/dL (70-99) Lactic Acid Level 1.5 mmol/L (0.4-2.0) Calcium Level 9.3 mg/dL (8.5-10.1) Magnesium Level 1.6 mg/dL (1.8-2.4) Total Bilirubin 0.5 mg/dL (0.2-1.0) Aspartate Amino Transf (AST/SGOT) 11 U/L (15-37) Alanine Aminotransferase (ALT/SGPT) 13 U/L (16-63) Alkaline Phosphatase 76 U/L (46-116) Total Protein 7.1 g/dL (6.4-8.2) Albumin 2.6 g/dL (3.4-5.0) Albumin/Globulin Ratio 0.6 (1.0-1.7) Test 03/14/17 08:50 03/14/17 11:18 White Blood Count 6.0 x10^3/uL (4.0-11.0) Red Blood Count 2.34 x10^6/uL (4.30-5.70) Hemoglobin 7.3 g/dL (13.0-17.5) Hematocrit 21.5 % (39.0-53.0) Mean Corpuscular Volume 92 fL (79-100) Mean Corpuscular Hemoglobin 31 pg (25-35) Mean Corpuscular Hemoglobin Concent 34 g/dL (31-37) Red Cell Distribution Width 17.0 % (11.5-14.5) Platelet Count 132 x10^3/uL (140-400) Neutrophils (%) (Auto) 77 % (31-73) Lymphocytes (%) (Auto) 9 % (24-48) Monocytes (%) (Auto) 8 % (0-9) Eosinophils (%) (Auto) 5 % (0-3) Basophils (%) (Auto) 1 % (0-3) Neutrophils # (Auto) 4.6 x10^3uL (1.8-7.7) Lymphocytes # (Auto) 0.5 x10^3/uL (1.0-4.8) Monocytes # (Auto) 0.5 x10^3/uL (0.0-1.1) Eosinophils # (Auto) 0.3 x10^3/uL (0.0-0.7) Basophils # (Auto) 0.1 x10^3/uL (0.0-0.2) Sodium Level 141 mmol/L (136-145) Potassium Level 3.9 mmol/L (3.5-5.1) Chloride Level 105 mmol/L (98-107) Carbon Dioxide Level 27 mmol/L (21-32) Anion Gap 9 (6-14) Blood Urea Nitrogen 18 mg/dL (8-26) Creatinine 1.1 mg/dL (0.7-1.3) Estimated GFR (Cockcroft-Gault) 67.6 Glucose Level 230 mg/dL (70-99) Calcium Level 9.3 mg/dL (8.5-10.1) Glucose (Fingerstick) 204 mg/dL (70-99) Review of Systems Review of Systems Pt complains of hunger Pt complains of fatigue PT complains of LE cramping Assessment and Plan Assessmemt and Plan Fall Aphasia PMH: HTN Hyperlipidemia Peripheral Neuropathy CVA GERD Depression CRI Plan: cont. abx P/OT recheck labs Cont. 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 Labs Laboratory Tests Test 03/12/17 16:18 03/12/17 20:20 03/13/17 04:05 03/13/17 07:55 Glucose (Fingerstick) 183 mg/dL (70-99) 212 mg/dL (70-99) 190 mg/dL (70-99) White Blood Count 5.9 x10^3/uL (4.0-11.0) Red Blood Count 2.05 x10^6/uL (4.30-5.70) Hemoglobin 6.5 g/dL (13.0-17.5) Hematocrit 19.0 % (39.0-53.0) Mean Corpuscular Volume 93 fL (79-100) Mean Corpuscular Hemoglobin 32 pg (25-35) Mean Corpuscular Hemoglobin Concent 34 g/dL (31-37) Red Cell Distribution Width 16.8 % (11.5-14.5) Platelet Count 137 x10^3/uL (140-400) Neutrophils (%) (Auto) 76 % (31-73) Lymphocytes (%) (Auto) 9 % (24-48) Monocytes (%) (Auto) 10 % (0-9) Eosinophils (%) (Auto) 4 % (0-3) Basophils (%) (Auto) 1 % (0-3) Neutrophils # (Auto) 4.4 x10^3uL (1.8-7.7) Lymphocytes # (Auto) 0.5 x10^3/uL (1.0-4.8) Monocytes # (Auto) 0.6 x10^3/uL (0.0-1.1) Eosinophils # (Auto) 0.3 x10^3/uL (0.0-0.7) Basophils # (Auto) 0.0 x10^3/uL (0.0-0.2) Sodium Level 143 mmol/L (136-145) Potassium Level 4.4 mmol/L (3.5-5.1) Chloride Level 106 mmol/L (98-107) Carbon Dioxide Level 29 mmol/L (21-32) Anion Gap 8 (6-14) Blood Urea Nitrogen 19 mg/dL (8-26) Creatinine 1.2 mg/dL (0.7-1.3) Estimated GFR (Cockcroft-Gault) 61.1 Glucose Level 259 mg/dL (70-99) Calcium Level 8.9 mg/dL (8.5-10.1) Test 03/13/17 10:50 03/13/17 16:06 03/13/17 16:35 03/13/17 17:00 Glucose (Fingerstick) 244 mg/dL (70-99) 263 mg/dL (70-99) 238 mg/dL (70-99) White Blood Count 5.2 x10^3/uL (4.0-11.0) Red Blood Count 2.29 x10^6/uL (4.30-5.70) Hemoglobin 7.1 g/dL (13.0-17.5) Hematocrit 21.1 % (39.0-53.0) Mean Corpuscular Volume 92 fL (79-100) Mean Corpuscular Hemoglobin 31 pg (25-35) Mean Corpuscular Hemoglobin Concent 34 g/dL (31-37) Red Cell Distribution Width 17.3 % (11.5-14.5) Platelet Count 140 x10^3/uL (140-400) Neutrophils (%) (Auto) 73 % (31-73) Lymphocytes (%) (Auto) 11 % (24-48) Monocytes (%) (Auto) 10 % (0-9) Eosinophils (%) (Auto) 6 % (0-3) Basophils (%) (Auto) 1 % (0-3) Neutrophils # (Auto) 3.8 x10^3uL (1.8-7.7) Lymphocytes # (Auto) 0.6 x10^3/uL (1.0-4.8) Monocytes # (Auto) 0.5 x10^3/uL (0.0-1.1) Eosinophils # (Auto) 0.3 x10^3/uL (0.0-0.7) Basophils # (Auto) 0.0 x10^3/uL (0.0-0.2) Sodium Level 142 mmol/L (136-145) Potassium Level 3.8 mmol/L (3.5-5.1) Chloride Level 106 mmol/L (98-107) Carbon Dioxide Level 28 mmol/L (21-32) Anion Gap 8 (6-14) Blood Urea Nitrogen 18 mg/dL (8-26) Creatinine 1.1 mg/dL (0.7-1.3) Estimated GFR (Cockcroft-Gault) 67.6 BUN/Creatinine Ratio 16 (6-20) Glucose Level 255 mg/dL (70-99) Lactic Acid Level 1.5 mmol/L (0.4-2.0) Calcium Level 9.3 mg/dL (8.5-10.1) Magnesium Level 1.6 mg/dL (1.8-2.4) Total Bilirubin 0.5 mg/dL (0.2-1.0) Aspartate Amino Transf (AST/SGOT) 11 U/L (15-37) Alanine Aminotransferase (ALT/SGPT) 13 U/L (16-63) Alkaline Phosphatase 76 U/L (46-116) Total Protein 7.1 g/dL (6.4-8.2) Albumin 2.6 g/dL (3.4-5.0) Albumin/Globulin Ratio 0.6 (1.0-1.7) Test 03/14/17 07:29 03/14/17 08:50 03/14/17 11:18 Glucose (Fingerstick) 213 mg/dL (70-99) 204 mg/dL (70-99) White Blood Count 6.0 x10^3/uL (4.0-11.0) Red Blood Count 2.34 x10^6/uL (4.30-5.70) Hemoglobin 7.3 g/dL (13.0-17.5) Hematocrit 21.5 % (39.0-53.0) Mean Corpuscular Volume 92 fL (79-100) Mean Corpuscular Hemoglobin 31 pg (25-35) Mean Corpuscular Hemoglobin Concent 34 g/dL (31-37) Red Cell Distribution Width 17.0 % (11.5-14.5) Platelet Count 132 x10^3/uL (140-400) Neutrophils (%) (Auto) 77 % (31-73) Lymphocytes (%) (Auto) 9 % (24-48) Monocytes (%) (Auto) 8 % (0-9) Eosinophils (%) (Auto) 5 % (0-3) Basophils (%) (Auto) 1 % (0-3) Neutrophils # (Auto) 4.6 x10^3uL (1.8-7.7) Lymphocytes # (Auto) 0.5 x10^3/uL (1.0-4.8) Monocytes # (Auto) 0.5 x10^3/uL (0.0-1.1) Eosinophils # (Auto) 0.3 x10^3/uL (0.0-0.7) Basophils # (Auto) 0.1 x10^3/uL (0.0-0.2) Sodium Level 141 mmol/L (136-145) Potassium Level 3.9 mmol/L (3.5-5.1) Chloride Level 105 mmol/L (98-107) Carbon Dioxide Level 27 mmol/L (21-32) Anion Gap 9 (6-14) Blood Urea Nitrogen 18 mg/dL (8-26) Creatinine 1.1 mg/dL (0.7-1.3) Estimated GFR (Cockcroft-Gault) 67.6 Glucose Level 230 mg/dL (70-99) Calcium Level 9.3 mg/dL (8.5-10.1) Laboratory Tests Test 03/13/17 16:06 03/13/17 16:35 03/13/17 17:00 03/14/17 07:29 Glucose (Fingerstick) 263 mg/dL (70-99) 238 mg/dL (70-99) 213 mg/dL (70-99) White Blood Count 5.2 x10^3/uL (4.0-11.0) Red Blood Count 2.29 x10^6/uL (4.30-5.70) Hemoglobin 7.1 g/dL (13.0-17.5) Hematocrit 21.1 % (39.0-53.0) Mean Corpuscular Volume 92 fL (79-100) Mean Corpuscular Hemoglobin 31 pg (25-35) Mean Corpuscular Hemoglobin Concent 34 g/dL (31-37) Red Cell Distribution Width 17.3 % (11.5-14.5) Platelet Count 140 x10^3/uL (140-400) Neutrophils (%) (Auto) 73 % (31-73) Lymphocytes (%) (Auto) 11 % (24-48) Monocytes (%) (Auto) 10 % (0-9) Eosinophils (%) (Auto) 6 % (0-3) Basophils (%) (Auto) 1 % (0-3) Neutrophils # (Auto) 3.8 x10^3uL (1.8-7.7) Lymphocytes # (Auto) 0.6 x10^3/uL (1.0-4.8) Monocytes # (Auto) 0.5 x10^3/uL (0.0-1.1) Eosinophils # (Auto) 0.3 x10^3/uL (0.0-0.7) Basophils # (Auto) 0.0 x10^3/uL (0.0-0.2) Sodium Level 142 mmol/L (136-145) Potassium Level 3.8 mmol/L (3.5-5.1) Chloride Level 106 mmol/L (98-107) Carbon Dioxide Level 28 mmol/L (21-32) Anion Gap 8 (6-14) Blood Urea Nitrogen 18 mg/dL (8-26) Creatinine 1.1 mg/dL (0.7-1.3) Estimated GFR (Cockcroft-Gault) 67.6 BUN/Creatinine Ratio 16 (6-20) Glucose Level 255 mg/dL (70-99) Lactic Acid Level 1.5 mmol/L (0.4-2.0) Calcium Level 9.3 mg/dL (8.5-10.1) Magnesium Level 1.6 mg/dL (1.8-2.4) Total Bilirubin 0.5 mg/dL (0.2-1.0) Aspartate Amino Transf (AST/SGOT) 11 U/L (15-37) Alanine Aminotransferase (ALT/SGPT) 13 U/L (16-63) Alkaline Phosphatase 76 U/L (46-116) Total Protein 7.1 g/dL (6.4-8.2) Albumin 2.6 g/dL (3.4-5.0) Albumin/Globulin Ratio 0.6 (1.0-1.7) Test 03/14/17 08:50 03/14/17 11:18 White Blood Count 6.0 x10^3/uL (4.0-11.0) Red Blood Count 2.34 x10^6/uL (4.30-5.70) Hemoglobin 7.3 g/dL (13.0-17.5) Hematocrit 21.5 % (39.0-53.0) Mean Corpuscular Volume 92 fL (79-100) Mean Corpuscular Hemoglobin 31 pg (25-35) Mean Corpuscular Hemoglobin Concent 34 g/dL (31-37) Red Cell Distribution Width 17.0 % (11.5-14.5) Platelet Count 132 x10^3/uL (140-400) Neutrophils (%) (Auto) 77 % (31-73) Lymphocytes (%) (Auto) 9 % (24-48) Monocytes (%) (Auto) 8 % (0-9) Eosinophils (%) (Auto) 5 % (0-3) Basophils (%) (Auto) 1 % (0-3) Neutrophils # (Auto) 4.6 x10^3uL (1.8-7.7) Lymphocytes # (Auto) 0.5 x10^3/uL (1.0-4.8) Monocytes # (Auto) 0.5 x10^3/uL (0.0-1.1) Eosinophils # (Auto) 0.3 x10^3/uL (0.0-0.7) Basophils # (Auto) 0.1 x10^3/uL (0.0-0.2) Sodium Level 141 mmol/L (136-145) Potassium Level 3.9 mmol/L (3.5-5.1) Chloride Level 105 mmol/L (98-107) Carbon Dioxide Level 27 mmol/L (21-32) Anion Gap 9 (6-14) Blood Urea Nitrogen 18 mg/dL (8-26) Creatinine 1.1 mg/dL (0.7-1.3) Estimated GFR (Cockcroft-Gault) 67.6 Glucose Level 230 mg/dL (70-99) Calcium Level 9.3 mg/dL (8.5-10.1) Glucose (Fingerstick) 204 mg/dL (70-99) Medications Current Medications Diphenhydramine HCl (Benadryl) 50 mg 1X ONCE IVP Last administered on t 17:11; Start 03/11/17 at 15:30; Stop 03/11/17 at 15:32; Status DC Ondansetron HCl (Zofran) 4 mg PRN Q8HRS PRN IV NAUSEA/VOMITING; Start 03/11/17 at 18:30; Stop 03/12/17 at 18:29; Status DC Morphine Sulfate 4 mg PRN Q2HR PRN IV PAIN; Start 03/11/17 at 18:30; Stop 03/12 at 18:29; Status DC Acetaminophen (Tylenol) 650 mg PRN Q4HRS PRN PO FEVER; Start 03/11/17 at 18:30 ; Stop 03/12/17 at 18:29; Status DC Clopidogrel Bisulfate (Plavix) 75 mg 1X ONCE PO Last administered on 18:48; Start 03/11/17 at 18:30; Stop 03/11/17 at 18:31; Status DC Aspirin (Omkar Aspirin) 325 mg DAILY PO Last administered on 03/14/17 08:11; Start 03/12/17 at 09:00 Atorvastatin Calcium (Lipitor) 20 mg QHS PO Last administered on 03/13/17 21: 19; Start 03/11/17 at 21:00 Celecoxib (CeleBREX) 200 mg BID PO Last administered on 03/14/17 08:10; Start 03/11/17 at 21:00 Vitamin D (Vitamin D3) 1,000 unit DAILY PO Last administered on 03/14/17 08:10 ; Start 03/12/17 at 09:00 Clopidogrel Bisulfate (Plavix) 75 mg DAILY PO Last administered on 03/14/17 08 :11; Start 03/12/17 at 09:00 Docusate Sodium (Colace) 100 mg DAILY PO Last administered on 03/14/17 08:10; Start 03/12/17 at 09:00 Fentanyl (Duragesic 75mcg/ Hr Patch) 1 patch Q3DAYS TD Last administered on 13:37; Start 03/12/17 at 09:00 Acetaminophen/ Hydrocodone Bitart (Lortab 7.5/325) 1 tab PRN Q4HRS PRN PO MODERATE PAIN; Start 03/11/17 at 19:30 Losartan Potassium (Cozaar) 50 mg DAILY PO Last administered on 03/14/17 08:12 ; Start 03/12/17 at 09:00 Metformin HCl (Glucophage) 500 mg BIDWMEALS PO Last administered on 03/14/17 08:10; Start 03/12/17 at 08:00 Pantoprazole Sodium (Protonix) 40 mg DAILYAC PO Last administered on 03/14/17 08:11; Start 03/12/17 at 07:30 Tamsulosin HCl (Flomax) 0.4 mg BID PO Last administered on 03/14/17 08:10; Start 03/11/17 at 21:00 Tamsulosin HCl (Flomax) 0.4 mg HS PO ; Start 03/11/17 at 21:00; Status UNV Citalopram Hydrobromide (CeleXA) 40 mg DAILY PO Last administered on 03/14/17 08:11; Start 03/12/17 at 09:00 Gabapentin (Neurontin) 300 mg BID PO Last administered on 03/14/17 08:11; Start 03/11/17 at 21:00 Insulin Detemir (Levemir) 22 units QHS SQ Last administered on 03/13/17 21:29 ; Start 03/11/17 at 21:00 Non-Formulary Medication 3.375 gm Q6HRS IV ; Start 03/12/17 at 00:00; Status UNV Insulin Aspart (NovoLOG) TIDWMEALS SQ Last administered on 03/14/17 11:49; Start 03/12/17 at 08:00 Dextrose (Dextrose 50%-Water Syringe) 12.5 gm PRN Q15MIN PRN IV SEE COMMENTS; Start 03/11/17 at 19:30 Piperacillin Sod/ Tazobactam Sod 3.375 gm/Sodium Chloride 50 ml @ 100 mls/hr Q6HRS IV Last administered on 03/14/17 11:42; Start 03/12/17 at 00:00 Hydromorphone HCl (Dilaudid) 0.5 mg PRN Q3HRS PRN IVP SEVERE PAIN Last administered on 03/12/17 07:55; Start 03/11/17 at 23:15 Albuterol/ Ipratropium (Duoneb) 3 ml RTQID NEB Last administered on 03/14/17 11:13; Start 03/12/17 at 08:00 Albuterol Sulfate (Ventolin Neb Soln) 2.5 mg PRN Q4HRS PRN NEB SHORTNESS OF BREATH; Start 03/12/17 at 06:00 Nystatin (Nystop) 1 rae BID TP Last administered on 03/14/17 06:31; Start at 09:00 Magnesium Sulfate/ Dextrose 50 ml @ 25 mls/hr 1X ONCE IV Last administered on 03/13/17 18:31; Start 03/13/17 at 18:15; Stop 03/13/17 at 20:14; Status DC Magnesium Sulfate/ Dextrose 50 ml @ 25 mls/hr 1X ONCE IV ; Start 03/14/17 at 13 :00; Stop 03/14/17 at 14:59 Active Scripts Active Hydrocodone-Apap 7.5-325 (Hydrocodone Bit/Acetaminophen) 1 Each Tablet 1 Tab PO PRN Q4HRS PRN Reported Tamsulosin Hcl 0.4 Mg Cap.er.24h 1 Cap PO DAILY Zosyn 3.375 Gm Galaxy Bag (Ykxbrcxdxwhp-Jnsm-Syfojazx,Iso) 3.375 Gm/50 Ml Froz.piggy 3.375 Gm IV Q6HRS Novolog (Insulin Aspart) 100 Unit/1 Ml Cartridge 15 Unit SQ TIDAC Pantoprazole Sodium 40 Mg Tablet.dr 40 Mg PO DAILY Levemir (Insulin Detemir) 100 Unit/1 Ml Vial 22 Unit SQ HS FENTANYL 75mcg/hr (Fentanyl) 1 Each Patch.td72 1 Patch TP Q3DAYS Colace (Docusate Sodium) 100 Mg Capsule 1 Cap PO DAILY Aspirin 325 Mg Tablet 1 Tab PO DAILY Vitamin D3 (Cholecalciferol (Vitamin D3)) 1,000 Unit Tablet 1 Tab PO DAILY Losartan Potassium 50 Mg Tablet 50 Mg PO DAILY Gabapentin 300 Mg Capsule 300 Mg PO BID Celebrex (Celecoxib) 200 Mg Capsule 200 Mg PO BID 30 Days Citalopram Hbr (Citalopram Hydrobromide) 40 Mg Tablet 40 Mg PO DAILY Lipitor (Atorvastatin Calcium) 20 Mg Tablet 20 Mg PO QHS Flomax (Tamsulosin Hcl) 0.4 Mg Cap.er.24h 0.4 Mg PO HS Metformin Hcl 500 Mg Tablet 500 Mg PO BID Plavix (Clopidogrel Bisulfate) 75 Mg Tablet 75 Mg PO DAILY Vitals/I & O Vital Sign - Last 24 Hours 03/13/17 03/13/17 03/13/17 03/13/17 13:05 15:51 17:14 19:42 Temp 98.2 98.4 97.9 98.2 98.4 97.9 Pulse 82 89 84 Resp 16 20 18 B/P (MAP) 132/78 130/70 (90) 186/96 (126) Pulse Ox 98 94 O2 Delivery Room Air Room Air Room Air 03/13/17 03/13/17 03/13/17 03/14/17 19:52 20:00 23:51 03:03 Temp 97.7 97.5 97.4 97.7 97.5 97.4 Pulse 79 81 85 Resp 20 18 20 B/P (MAP) 126/73 (90) 113/82 (92) 141/80 (100) Pulse Ox 98 95 96 O2 Delivery Nasal Cannula Nasal Cannula Nasal Cannula Nasal Cannula O2 Flow Rate 2.0 2.0 2.0 2.0 03/14/17 03/14/17 03/14/17 03/14/17 06:55 07:34 08:00 08:12 Temp 98.8 98.8 Pulse 88 88 Resp 20 B/P (MAP) 112/79 (90) 112/79 Pulse Ox 97 98 O2 Delivery Nasal Cannula Nasal Cannula Nasal Cannula O2 Flow Rate 2.0 2.0 2.0 03/14/17 03/14/17 11:08 11:13 Temp 97.6 97.6 Pulse 86 Resp 20 B/P (MAP) 129/78 (95) Pulse Ox 98 O2 Delivery Nasal Cannula Nasal Cannula O2 Flow Rate 2.0 2.0 PRATIBHA FATIMA III DO Mar 14, 2017 12:28
[2017-03-14] MEDS ORDERED: MAGNESIUM SULFATE 2GM 50 ML IV ONE (13:00)
[2017-03-14 15:45] VITALS: BP 163/70
[2017-03-14 19:46] VITALS: BP 137/78
[2017-03-14] MEDS: ATORVASTATIN CALCIUM 20 MG TABLET PO SCH (21:28)
[2017-03-14] MEDS: INSULIN DETEMIR 300 UNITS/3 ML INSULN.PEN. SQ SCH (21:38)
[2017-03-14 23:10] VITALS: BP 144/72
[2017-03-15] VITALS (10 sets, daily range): BP systolic 126–163; BP diastolic 64–92
[2017-03-15] MEDS: PIPERACILLIN/TAZOBACTAM 3.375 GM in IV NORMAL SALINE 50ML 50 ML IV SCH ×2 (00:19→05:39)
[2017-03-15] MEDS: HYDROcodone/APAP 7.5/325MG 1 TAB TABLET PO PRN (01:41)
[2017-03-15 04:49] LABS: BASO % 1 % (0-3); EOS % 6 % (0-3); LYMPH # 0.6 x10^3/uL (1.0-4.8); LYMPH % 9 % (24-48); MEAN CORPUSCULAR HEMOGLOBIN 31 pg (25-35); MEAN CORPUSCULAR HGB CONC 34 g/dL (31-37); MEAN CORPUSCULAR VOLUME 92 fL (79-100); MONO % 9 % (0-9); NEUT % 75 % (31-73); PLATELET COUNT 147 x10^3/uL (140-400); RED BLOOD COUNT 2.23 x10^6/uL (4.30-5.70); WHITE BLOOD COUNT 6.1 x10^3/uL (4.0-11.0)
[2017-03-15 05:01] LABS: HEMATOCRIT 20.6 % (39.0-53.0); HEMOGLOBIN 6.9 g/dL (13.0-17.5)
[2017-03-15 05:14] LABS: CALCIUM 9.5 mg/dL (8.5-10.1); CREATININE 1.3 mg/dL (0.7-1.3); GFR 55.8; POTASSIUM 4.4 mmol/L (3.5-5.1)
[2017-03-15] MEDS: PANTOPRAZOLE 40 MG TABLET.DR. PO SCH (07:50)
[2017-03-15] MEDS: CITALOPRAM 20 MG TABLET. PO SCH (07:50)
[2017-03-15] MEDS: DOCUSATE SODIUM 100 MG CAPSULE. PO SCH (07:50)
[2017-03-15] MEDS: TAMSULOSIN 0.4 MG CAP.ER.24H. PO SCH ×2 (07:50→21:04)
[2017-03-15] MEDS: metFORMIN 500 MG TABLET PO SCH ×2 (07:50→17:22)
[2017-03-15] MEDS: fentaNYL 75MCG/HR PATCH 1 PATCH PATCH.TD72 TD SCH (07:50)
[2017-03-15] MEDS: GABAPENTIN 300 MG CAPSULE. PO SCH ×2 (07:51→21:04)
[2017-03-15] MEDS: ASPIRIN 325 MG TABLET PO SCH (07:51)
[2017-03-15] MEDS: CHOLECALCIFEROL (VITAMIN D3) 1,000 UNIT TABLET PO SCH (07:51)
[2017-03-15] MEDS: LOSARTAN POTASSIUM 50 MG TABLET. PO SCH (07:51)
[2017-03-15] MEDS: CLOPIDOGREL BISULFATE 75 MG TABLET PO SCH (07:51)
[2017-03-15] MEDS: CELECOXIB 200 MG CAPSULE. PO SCH ×2 (07:51→21:04)
[2017-03-15] MEDS: INSULIN ASPART 300 UNITS/3 ML INSULN.PEN SQ SCH ×3 (07:59→17:24)
[2017-03-15] MEDS: NYSTATIN TOPICAL POWDER 15GM BOTTLE. TP SCH ×2 (08:01→21:05)
--- NOTE | 2017-03-15 08:20 | PDOC ---
Infectious Disease Note Subjective Subjective Periods of confusion Groin rash ok c/o mild let foot pain ROS ROS GEN: Denies fevers, chills, sweats HEENT: Denies blurred vision, sore throat CV: Denies chest pain RESP: Denies shortness of air, cough GI: Denies n/v/d NEURO: Denies confusion, dizziness MSK: Denies weakness, joint pain/swelling Vital Sign Vital Signs Vital Signs Date Time Temp Pulse Resp B/P (MAP) Pulse Ox O2 Delivery O2 Flow Rate FiO2 03/15/17 07:51 90 128/77 03/15/17 07:50 95 Nasal Cannula 2.0 03/15/17 03:06 97.4 16 97.4 Physical Exam PHYSICAL EXAM GENERAL: NAD, Alert, eating, sitting up on side of bed HEENT: PERRL, OC/OP NECK: Supple, no JVD, no LN LUNGS: Clear HEART: S1S2, no gallop, no murmur ABD: Soft, NT, no organomegaly, no rebound EXT: Left foot trace edema, no cyanosis, external fixator intact; right foot bandaged (reviewed pics) 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 clean Labs Lab Laboratory Tests Test 03/14/17 08:50 03/14/17 11:18 03/14/17 15:53 03/14/17 20:54 White Blood Count 6.0 x10^3/uL (4.0-11.0) Red Blood Count 2.34 x10^6/uL (4.30-5.70) Hemoglobin 7.3 g/dL (13.0-17.5) Hematocrit 21.5 % (39.0-53.0) Mean Corpuscular Volume 92 fL (79-100) Mean Corpuscular Hemoglobin 31 pg (25-35) Mean Corpuscular Hemoglobin Concent 34 g/dL (31-37) Red Cell Distribution Width 17.0 % (11.5-14.5) Platelet Count 132 x10^3/uL (140-400) Neutrophils (%) (Auto) 77 % (31-73) Lymphocytes (%) (Auto) 9 % (24-48) Monocytes (%) (Auto) 8 % (0-9) Eosinophils (%) (Auto) 5 % (0-3) Basophils (%) (Auto) 1 % (0-3) Neutrophils # (Auto) 4.6 x10^3uL (1.8-7.7) Lymphocytes # (Auto) 0.5 x10^3/uL (1.0-4.8) Monocytes # (Auto) 0.5 x10^3/uL (0.0-1.1) Eosinophils # (Auto) 0.3 x10^3/uL (0.0-0.7) Basophils # (Auto) 0.1 x10^3/uL (0.0-0.2) Sodium Level 141 mmol/L (136-145) Potassium Level 3.9 mmol/L (3.5-5.1) Chloride Level 105 mmol/L (98-107) Carbon Dioxide Level 27 mmol/L (21-32) Anion Gap 9 (6-14) Blood Urea Nitrogen 18 mg/dL (8-26) Creatinine 1.1 mg/dL (0.7-1.3) Estimated GFR (Cockcroft-Gault) 67.6 Glucose Level 230 mg/dL (70-99) Calcium Level 9.3 mg/dL (8.5-10.1) Glucose (Fingerstick) 204 mg/dL (70-99) 198 mg/dL (70-99) 236 mg/dL (70-99) Test 03/15/17 04:30 03/15/17 07:26 White Blood Count 6.1 x10^3/uL (4.0-11.0) Red Blood Count 2.23 x10^6/uL (4.30-5.70) Hemoglobin 6.9 g/dL (13.0-17.5) Hematocrit 20.6 % (39.0-53.0) Mean Corpuscular Volume 92 fL (79-100) Mean Corpuscular Hemoglobin 31 pg (25-35) Mean Corpuscular Hemoglobin Concent 34 g/dL (31-37) Red Cell Distribution Width 17.0 % (11.5-14.5) Platelet Count 147 x10^3/uL (140-400) Neutrophils (%) (Auto) 75 % (31-73) Lymphocytes (%) (Auto) 9 % (24-48) Monocytes (%) (Auto) 9 % (0-9) Eosinophils (%) (Auto) 6 % (0-3) Basophils (%) (Auto) 1 % (0-3) Neutrophils # (Auto) 4.6 x10^3uL (1.8-7.7) Lymphocytes # (Auto) 0.6 x10^3/uL (1.0-4.8) Monocytes # (Auto) 0.6 x10^3/uL (0.0-1.1) Eosinophils # (Auto) 0.3 x10^3/uL (0.0-0.7) Basophils # (Auto) 0.0 x10^3/uL (0.0-0.2) Sodium Level 141 mmol/L (136-145) Potassium Level 4.4 mmol/L (3.5-5.1) Chloride Level 106 mmol/L (98-107) Carbon Dioxide Level 27 mmol/L (21-32) Anion Gap 8 (6-14) Blood Urea Nitrogen 24 mg/dL (8-26) Creatinine 1.3 mg/dL (0.7-1.3) Estimated GFR (Cockcroft-Gault) 55.8 Glucose Level 219 mg/dL (70-99) Calcium Level 9.5 mg/dL (8.5-10.1) Glucose (Fingerstick) 191 mg/dL (70-99) Objective Assessment Left ankle infection -hx proteus, PSA, Enterococcus and MSSA Left foot infection Anemia - for several months - evaluated by Dr. Ravi previously. Right calcaneal wound - superficial Encephalopathy, CT neg DM ? Talus fracture left Previous CVA Plan Plan of Care Will d/c Zosyn as he has been on this for almost 2 months. R/o as a cause of Anemia, although unlikely Begin Cefepime Consult Dr. Trav Cheng Leg elevation Supportive care likely will need BKA, though he absolutely refuses Await Ortho f/u RADHA SILVA MD Mar 15, 2017 08:20
[2017-03-15] MEDS: IPRATRPIUM/ALBUTEROL 0.5/2.5MG 3 ML NEBU. NEB SCH ×3 (08:49→20:51)
[2017-03-15] MEDS: CEFEPIME HCL 2 GM in IV NORMAL SALINE 100ML 100 ML IV SCH ×3 (09:14→21:04)
[2017-03-15 09:21] LABS: % SAT IRON 28 % (15-34); IRON,SERUM 62 ug/dL (65-175)
--- NOTE | 2017-03-15 11:06 | PDOC ---
PROGRESS NOTES Chief Complaint Chief Complaint Fall Aphasia PMH: HTN Hyperlipidemia Peripheral Neuropathy CVA GERD Depression CRI History of Present Illness History of Present Illness Pt was laying in bed and conversant. Complains of symptomatic anemia with a Hgb of 6.9. Will be transfused today. wound vac was present on the left leg and draining. Wound was dressed properly. Discussed plan of care with pt including vascular surgery's recommendations of BKA. Infectious disease will cont. zosyn and nystatin as well as keep the leg elevated. Vascular surgery says carotids not related to the fall and recommends high dose statin therapy as well as baby aspirin. Vitals Vitals Vital Signs Date Time Temp Pulse Resp B/P (MAP) Pulse Ox O2 Delivery O2 Flow Rate FiO2 03/15/17 10:53 97.9 91 126/64 (84) 94 Room Air 97.9 03/15/17 10:46 18 03/15/17 08:50 2.0 Physical Exam General: Alert, Oriented X3, Cooperative, No acute distress Heart: Normal S1, Normal S2, Other (tachycardic) Lungs: Clear Abdomen: Normal bowel sounds, Soft, No tenderness, Other (morbidly obese) Extremities: No clubbing, No cyanosis, Other (left lower extremity external fixator in place) Skin: No rashes, Other (LLE wound with wound vac in place and draining ) Labs LABS Laboratory Tests Test 03/14/17 11:18 03/14/17 15:53 03/14/17 20:54 03/15/17 04:30 Glucose (Fingerstick) 204 mg/dL (70-99) 198 mg/dL (70-99) 236 mg/dL (70-99) White Blood Count 6.1 x10^3/uL (4.0-11.0) Red Blood Count 2.23 x10^6/uL (4.30-5.70) Hemoglobin 6.9 g/dL (13.0-17.5) Hematocrit 20.6 % (39.0-53.0) Mean Corpuscular Volume 92 fL (79-100) Mean Corpuscular Hemoglobin 31 pg (25-35) Mean Corpuscular Hemoglobin Concent 34 g/dL (31-37) Red Cell Distribution Width 17.0 % (11.5-14.5) Platelet Count 147 x10^3/uL (140-400) Neutrophils (%) (Auto) 75 % (31-73) Lymphocytes (%) (Auto) 9 % (24-48) Monocytes (%) (Auto) 9 % (0-9) Eosinophils (%) (Auto) 6 % (0-3) Basophils (%) (Auto) 1 % (0-3) Neutrophils # (Auto) 4.6 x10^3uL (1.8-7.7) Lymphocytes # (Auto) 0.6 x10^3/uL (1.0-4.8) Monocytes # (Auto) 0.6 x10^3/uL (0.0-1.1) Eosinophils # (Auto) 0.3 x10^3/uL (0.0-0.7) Basophils # (Auto) 0.0 x10^3/uL (0.0-0.2) Reticulocyte Count (auto) 1.5 % (0.5-2.5) Sodium Level 141 mmol/L (136-145) Potassium Level 4.4 mmol/L (3.5-5.1) Chloride Level 106 mmol/L (98-107) Carbon Dioxide Level 27 mmol/L (21-32) Anion Gap 8 (6-14) Blood Urea Nitrogen 24 mg/dL (8-26) Creatinine 1.3 mg/dL (0.7-1.3) Estimated GFR (Cockcroft-Gault) 55.8 Glucose Level 219 mg/dL (70-99) Calcium Level 9.5 mg/dL (8.5-10.1) Iron Level 62 ug/dL (65-175) Total Iron Binding Capacity 222 ug/dL (250-450) Iron Saturation 28 % (15-34) Ferritin 794 ng/mL (26-388) Test 03/15/17 07:26 03/15/17 10:24 Glucose (Fingerstick) 191 mg/dL (70-99) 223 mg/dL (70-99) Review of Systems Review of Systems Pt complains of hunger Pt complains of fatigue Pt complains of leg pain Pt complains of mild trouble breathing Assessment and Plan Assessmemt and Plan Fall Aphasia PMH: HTN Hyperlipidemia Peripheral Neuropathy CVA GERD Depression CRI Plan: Treat symptomatic anemia with transfusion today cont. abx cont wound care change dressings as needed recheck labs PT/OT monitor vitals increased statin to 40mg per vascular recommendation Problems: Comment Review of Relevant I have reviewed the following items lauryn (where applicable) has been applied. Labs Laboratory Tests Test 03/13/17 16:06 03/13/17 16:35 03/13/17 17:00 03/13/17 20:48 Glucose (Fingerstick) 263 mg/dL (70-99) 238 mg/dL (70-99) 256 mg/dL (70-99) White Blood Count 5.2 x10^3/uL (4.0-11.0) Red Blood Count 2.29 x10^6/uL (4.30-5.70) Hemoglobin 7.1 g/dL (13.0-17.5) Hematocrit 21.1 % (39.0-53.0) Mean Corpuscular Volume 92 fL (79-100) Mean Corpuscular Hemoglobin 31 pg (25-35) Mean Corpuscular Hemoglobin Concent 34 g/dL (31-37) Red Cell Distribution Width 17.3 % (11.5-14.5) Platelet Count 140 x10^3/uL (140-400) Neutrophils (%) (Auto) 73 % (31-73) Lymphocytes (%) (Auto) 11 % (24-48) Monocytes (%) (Auto) 10 % (0-9) Eosinophils (%) (Auto) 6 % (0-3) Basophils (%) (Auto) 1 % (0-3) Neutrophils # (Auto) 3.8 x10^3uL (1.8-7.7) Lymphocytes # (Auto) 0.6 x10^3/uL (1.0-4.8) Monocytes # (Auto) 0.5 x10^3/uL (0.0-1.1) Eosinophils # (Auto) 0.3 x10^3/uL (0.0-0.7) Basophils # (Auto) 0.0 x10^3/uL (0.0-0.2) Sodium Level 142 mmol/L (136-145) Potassium Level 3.8 mmol/L (3.5-5.1) Chloride Level 106 mmol/L (98-107) Carbon Dioxide Level 28 mmol/L (21-32) Anion Gap 8 (6-14) Blood Urea Nitrogen 18 mg/dL (8-26) Creatinine 1.1 mg/dL (0.7-1.3) Estimated GFR (Cockcroft-Gault) 67.6 BUN/Creatinine Ratio 16 (6-20) Glucose Level 255 mg/dL (70-99) Lactic Acid Level 1.5 mmol/L (0.4-2.0) Calcium Level 9.3 mg/dL (8.5-10.1) Magnesium Level 1.6 mg/dL (1.8-2.4) Total Bilirubin 0.5 mg/dL (0.2-1.0) Aspartate Amino Transf (AST/SGOT) 11 U/L (15-37) Alanine Aminotransferase (ALT/SGPT) 13 U/L (16-63) Alkaline Phosphatase 76 U/L (46-116) Total Protein 7.1 g/dL (6.4-8.2) Albumin 2.6 g/dL (3.4-5.0) Albumin/Globulin Ratio 0.6 (1.0-1.7) Test 03/14/17 07:29 03/14/17 08:50 03/14/17 11:18 03/14/17 15:53 Glucose (Fingerstick) 213 mg/dL (70-99) 204 mg/dL (70-99) 198 mg/dL (70-99) White Blood Count 6.0 x10^3/uL (4.0-11.0) Red Blood Count 2.34 x10^6/uL (4.30-5.70) Hemoglobin 7.3 g/dL (13.0-17.5) Hematocrit 21.5 % (39.0-53.0) Mean Corpuscular Volume 92 fL (79-100) Mean Corpuscular Hemoglobin 31 pg (25-35) Mean Corpuscular Hemoglobin Concent 34 g/dL (31-37) Red Cell Distribution Width 17.0 % (11.5-14.5) Platelet Count 132 x10^3/uL (140-400) Neutrophils (%) (Auto) 77 % (31-73) Lymphocytes (%) (Auto) 9 % (24-48) Monocytes (%) (Auto) 8 % (0-9) Eosinophils (%) (Auto) 5 % (0-3) Basophils (%) (Auto) 1 % (0-3) Neutrophils # (Auto) 4.6 x10^3uL (1.8-7.7) Lymphocytes # (Auto) 0.5 x10^3/uL (1.0-4.8) Monocytes # (Auto) 0.5 x10^3/uL (0.0-1.1) Eosinophils # (Auto) 0.3 x10^3/uL (0.0-0.7) Basophils # (Auto) 0.1 x10^3/uL (0.0-0.2) Sodium Level 141 mmol/L (136-145) Potassium Level 3.9 mmol/L (3.5-5.1) Chloride Level 105 mmol/L (98-107) Carbon Dioxide Level 27 mmol/L (21-32) Anion Gap 9 (6-14) Blood Urea Nitrogen 18 mg/dL (8-26) Creatinine 1.1 mg/dL (0.7-1.3) Estimated GFR (Cockcroft-Gault) 67.6 Glucose Level 230 mg/dL (70-99) Calcium Level 9.3 mg/dL (8.5-10.1) Test 03/14/17 20:54 03/15/17 04:30 03/15/17 07:26 03/15/17 10:24 Glucose (Fingerstick) 236 mg/dL (70-99) 191 mg/dL (70-99) 223 mg/dL (70-99) White Blood Count 6.1 x10^3/uL (4.0-11.0) Red Blood Count 2.23 x10^6/uL (4.30-5.70) Hemoglobin 6.9 g/dL (13.0-17.5) Hematocrit 20.6 % (39.0-53.0) Mean Corpuscular Volume 92 fL (79-100) Mean Corpuscular Hemoglobin 31 pg (25-35) Mean Corpuscular Hemoglobin Concent 34 g/dL (31-37) Red Cell Distribution Width 17.0 % (11.5-14.5) Platelet Count 147 x10^3/uL (140-400) Neutrophils (%) (Auto) 75 % (31-73) Lymphocytes (%) (Auto) 9 % (24-48) Monocytes (%) (Auto) 9 % (0-9) Eosinophils (%) (Auto) 6 % (0-3) Basophils (%) (Auto) 1 % (0-3) Neutrophils # (Auto) 4.6 x10^3uL (1.8-7.7) Lymphocytes # (Auto) 0.6 x10^3/uL (1.0-4.8) Monocytes # (Auto) 0.6 x10^3/uL (0.0-1.1) Eosinophils # (Auto) 0.3 x10^3/uL (0.0-0.7) Basophils # (Auto) 0.0 x10^3/uL (0.0-0.2) Reticulocyte Count (auto) 1.5 % (0.5-2.5) Sodium Level 141 mmol/L (136-145) Potassium Level 4.4 mmol/L (3.5-5.1) Chloride Level 106 mmol/L (98-107) Carbon Dioxide Level 27 mmol/L (21-32) Anion Gap 8 (6-14) Blood Urea Nitrogen 24 mg/dL (8-26) Creatinine 1.3 mg/dL (0.7-1.3) Estimated GFR (Cockcroft-Gault) 55.8 Glucose Level 219 mg/dL (70-99) Calcium Level 9.5 mg/dL (8.5-10.1) Iron Level 62 ug/dL (65-175) Total Iron Binding Capacity 222 ug/dL (250-450) Iron Saturation 28 % (15-34) Ferritin 794 ng/mL (26-388) Laboratory Tests Test 03/14/17 11:18 03/14/17 15:53 03/14/17 20:54 03/15/17 04:30 Glucose (Fingerstick) 204 mg/dL (70-99) 198 mg/dL (70-99) 236 mg/dL (70-99) White Blood Count 6.1 x10^3/uL (4.0-11.0) Red Blood Count 2.23 x10^6/uL (4.30-5.70) Hemoglobin 6.9 g/dL (13.0-17.5) Hematocrit 20.6 % (39.0-53.0) Mean Corpuscular Volume 92 fL (79-100) Mean Corpuscular Hemoglobin 31 pg (25-35) Mean Corpuscular Hemoglobin Concent 34 g/dL (31-37) Red Cell Distribution Width 17.0 % (11.5-14.5) Platelet Count 147 x10^3/uL (140-400) Neutrophils (%) (Auto) 75 % (31-73) Lymphocytes (%) (Auto) 9 % (24-48) Monocytes (%) (Auto) 9 % (0-9) Eosinophils (%) (Auto) 6 % (0-3) Basophils (%) (Auto) 1 % (0-3) Neutrophils # (Auto) 4.6 x10^3uL (1.8-7.7) Lymphocytes # (Auto) 0.6 x10^3/uL (1.0-4.8) Monocytes # (Auto) 0.6 x10^3/uL (0.0-1.1) Eosinophils # (Auto) 0.3 x10^3/uL (0.0-0.7) Basophils # (Auto) 0.0 x10^3/uL (0.0-0.2) Reticulocyte Count (auto) 1.5 % (0.5-2.5) Sodium Level 141 mmol/L (136-145) Potassium Level 4.4 mmol/L (3.5-5.1) Chloride Level 106 mmol/L (98-107) Carbon Dioxide Level 27 mmol/L (21-32) Anion Gap 8 (6-14) Blood Urea Nitrogen 24 mg/dL (8-26) Creatinine 1.3 mg/dL (0.7-1.3) Estimated GFR (Cockcroft-Gault) 55.8 Glucose Level 219 mg/dL (70-99) Calcium Level 9.5 mg/dL (8.5-10.1) Iron Level 62 ug/dL (65-175) Total Iron Binding Capacity 222 ug/dL (250-450) Iron Saturation 28 % (15-34) Ferritin 794 ng/mL (26-388) Test 03/15/17 07:26 03/15/17 10:24 Glucose (Fingerstick) 191 mg/dL (70-99) 223 mg/dL (70-99) Medications Current Medications Diphenhydramine HCl (Benadryl) 50 mg 1X ONCE IVP Last administered on t 17:11; Start 03/11/17 at 15:30; Stop 03/11/17 at 15:32; Status DC Ondansetron HCl (Zofran) 4 mg PRN Q8HRS PRN IV NAUSEA/VOMITING; Start 03/11/17 at 18:30; Stop 03/12/17 at 18:29; Status DC Morphine Sulfate 4 mg PRN Q2HR PRN IV PAIN; Start 03/11/17 at 18:30; Stop 03/12 at 18:29; Status DC Acetaminophen (Tylenol) 650 mg PRN Q4HRS PRN PO FEVER; Start 03/11/17 at 18:30 ; Stop 03/12/17 at 18:29; Status DC Clopidogrel Bisulfate (Plavix) 75 mg 1X ONCE PO Last administered on 18:48; Start 03/11/17 at 18:30; Stop 03/11/17 at 18:31; Status DC Aspirin (Omkar Aspirin) 325 mg DAILY PO Last administered on 03/15/17 07:51; Start 03/12/17 at 09:00 Atorvastatin Calcium (Lipitor) 20 mg QHS PO Last administered on 03/14/17 21: 28; Start 03/11/17 at 21:00 Celecoxib (CeleBREX) 200 mg BID PO Last administered on 03/15/17 07:51; Start 03/11/17 at 21:00 Vitamin D (Vitamin D3) 1,000 unit DAILY PO Last administered on 03/15/17 07:51 ; Start 03/12/17 at 09:00 Clopidogrel Bisulfate (Plavix) 75 mg DAILY PO Last administered on 03/15/17 07 :51; Start 03/12/17 at 09:00 Docusate Sodium (Colace) 100 mg DAILY PO Last administered on 03/15/17 07:50; Start 03/12/17 at 09:00 Fentanyl (Duragesic 75mcg/ Hr Patch) 1 patch Q3DAYS TD Last administered on 07:50; Start 03/12/17 at 09:00 Acetaminophen/ Hydrocodone Bitart (Lortab 7.5/325) 1 tab PRN Q4HRS PRN PO MODERATE PAIN Last administered on 03/15/17 01:41; Start 03/11/17 at 19:30 Losartan Potassium (Cozaar) 50 mg DAILY PO Last administered on 03/15/17 07:51 ; Start 03/12/17 at 09:00 Metformin HCl (Glucophage) 500 mg BIDWMEALS PO Last administered on 03/15/17 07:50; Start 03/12/17 at 08:00 Pantoprazole Sodium (Protonix) 40 mg DAILYAC PO Last administered on 03/15/17 07:50; Start 03/12/17 at 07:30 Tamsulosin HCl (Flomax) 0.4 mg BID PO Last administered on 03/15/17 07:50; Start 03/11/17 at 21:00 Tamsulosin HCl (Flomax) 0.4 mg HS PO ; Start 03/11/17 at 21:00; Status UNV Citalopram Hydrobromide (CeleXA) 40 mg DAILY PO Last administered on 03/15/17 07:50; Start 03/12/17 at 09:00 Gabapentin (Neurontin) 300 mg BID PO Last administered on 03/15/17 07:51; Start 03/11/17 at 21:00 Insulin Detemir (Levemir) 22 units QHS SQ Last administered on 03/14/17 21:38 ; Start 03/11/17 at 21:00 Non-Formulary Medication 3.375 gm Q6HRS IV ; Start 03/12/17 at 00:00; Status UNV Insulin Aspart (NovoLOG) TIDWMEALS SQ Last administered on 03/15/17 07:59; Start 03/12/17 at 08:00 Dextrose (Dextrose 50%-Water Syringe) 12.5 gm PRN Q15MIN PRN IV SEE COMMENTS; Start 03/11/17 at 19:30 Piperacillin Sod/ Tazobactam Sod 3.375 gm/Sodium Chloride 50 ml @ 100 mls/hr Q6HRS IV Last administered on 03/15/17 05:39; Start 03/12/17 at 00:00; Stop 03/15/17 at 08:19; Status DC Hydromorphone HCl (Dilaudid) 0.5 mg PRN Q3HRS PRN IVP SEVERE PAIN Last administered on 03/12/17 07:55; Start 03/11/17 at 23:15 Albuterol/ Ipratropium (Duoneb) 3 ml RTQID NEB Last administered on 03/15/17 08:49; Start 03/12/17 at 08:00 Albuterol Sulfate (Ventolin Neb Soln) 2.5 mg PRN Q4HRS PRN NEB SHORTNESS OF BREATH; Start 03/12/17 at 06:00 Nystatin (Nystop) 1 rae BID TP Last administered on 03/15/17 08:01; Start at 09:00 Magnesium Sulfate/ Dextrose 50 ml @ 25 mls/hr 1X ONCE IV Last administered on 03/13/17 18:31; Start 03/13/17 at 18:15; Stop 03/14/17 at 13:16; Status DC Magnesium Sulfate/ Dextrose 50 ml @ 25 mls/hr 1X ONCE IV ; Start 03/14/17 at 13 :00; Stop 03/14/17 at 14:59; Status DC Cefepime HCl 2 gm/ Sodium Chloride 100 ml @ 200 mls/hr Q8HRS IV Last administered on 03/15/17 09:14; Start 03/15/17 at 09:00 Active Scripts Active Hydrocodone-Apap 7.5-325 (Hydrocodone Bit/Acetaminophen) 1 Each Tablet 1 Tab PO PRN Q4HRS PRN Reported Tamsulosin Hcl 0.4 Mg Cap.er.24h 1 Cap PO DAILY Zosyn 3.375 Gm Galaxy Bag (Fpclhcjcgulj-Uzfy-Ycdfnuvs,Iso) 3.375 Gm/50 Ml Froz.piggy 3.375 Gm IV Q6HRS Novolog (Insulin Aspart) 100 Unit/1 Ml Cartridge 15 Unit SQ TIDAC Pantoprazole Sodium 40 Mg Tablet.dr 40 Mg PO DAILY Levemir (Insulin Detemir) 100 Unit/1 Ml Vial 22 Unit SQ HS FENTANYL 75mcg/hr (Fentanyl) 1 Each Patch.td72 1 Patch TP Q3DAYS Colace (Docusate Sodium) 100 Mg Capsule 1 Cap PO DAILY Aspirin 325 Mg Tablet 1 Tab PO DAILY Vitamin D3 (Cholecalciferol (Vitamin D3)) 1,000 Unit Tablet 1 Tab PO DAILY Losartan Potassium 50 Mg Tablet 50 Mg PO DAILY Gabapentin 300 Mg Capsule 300 Mg PO BID Celebrex (Celecoxib) 200 Mg Capsule 200 Mg PO BID 30 Days Citalopram Hbr (Citalopram Hydrobromide) 40 Mg Tablet 40 Mg PO DAILY Lipitor (Atorvastatin Calcium) 20 Mg Tablet 20 Mg PO QHS Flomax (Tamsulosin Hcl) 0.4 Mg Cap.er.24h 0.4 Mg PO HS Metformin Hcl 500 Mg Tablet 500 Mg PO BID Plavix (Clopidogrel Bisulfate) 75 Mg Tablet 75 Mg PO DAILY Vitals/I & O Vital Sign - Last 24 Hours 03/14/17 03/14/17 03/14/17 03/14/17 11:08 11:13 14:50 15:45 Temp 97.6 97.6 97.6 97.6 Pulse 86 87 Resp 20 20 B/P (MAP) 129/78 (95) 163/70 (101) Pulse Ox 98 96 O2 Delivery Nasal Cannula Nasal Cannula Nasal Cannula Nasal Cannula O2 Flow Rate 2.0 2.0 2.0 2.0 03/14/17 03/14/17 03/14/17 03/14/17 19:26 19:46 19:55 23:10 Temp 97.6 98.1 97.6 98.1 Pulse 89 89 Resp 20 20 B/P (MAP) 137/78 (97) 144/72 (96) Pulse Ox 97 96 98 O2 Delivery Nasal Cannula Nasal Cannula Nasal Cannula Nasal Cannula O2 Flow Rate 2.0 2.0 2.0 2.0 03/15/17 03/15/17 03/15/17 03/15/17 01:41 02:40 03:06 07:00 Temp 97.4 97.7 97.4 97.7 Pulse 90 96 Resp 16 18 16 18 B/P (MAP) 128/77 (94) 147/92 (110) Pulse Ox 95 93 O2 Delivery Nasal Cannula Nasal Cannula Nasal Cannula Room Air O2 Flow Rate 2.0 2.0 03/15/17 03/15/17 03/15/17 03/15/17 07:50 07:51 08:00 08:50 Pulse 90 B/P (MAP) 128/77 Pulse Ox 95 93 O2 Delivery Nasal Cannula Nasal Cannula Nasal Cannula O2 Flow Rate 2.0 2.0 2.0 03/15/17 03/15/17 03/15/17 10:30 10:46 10:53 Temp 98.1 98.0 97.9 98.1 98.0 97.9 Pulse 90 88 91 Resp 18 18 B/P (MAP) 131/76 127/73 126/64 (84) Pulse Ox 94 O2 Delivery Room Air Intake and Output 03/15/17 03/15/17 03/16/17 15:00 23:00 07:00 Intake Total 320 ml Balance 320 ml PRATIBHA FATIMA III DO Mar 15, 2017 11:06
--- NOTE | 2017-03-15 13:14 | PDOC ---
PROGRESS NOTES Assessment Dysarthria, probably due to metabolic problems or maybe just the narcotics No evidence of stroke or transient ischemic attack Metabolic encephalopathy. Rapid response was called on 03/13, neurology was not notified, CT head negative , patient back to baseline Plan Continue Plavix 75 mg daily. Continue ASA daily. Continue Lipitor HS. Treat UTI per floor team. Treat medical diseases. Dr. Ruiz thinks patient should see Vascular Surgery as out-patient. OT/PT. Objective Vital Signs Date Time Temp Pulse Resp B/P (MAP) Pulse Ox O2 Delivery O2 Flow Rate FiO2 03/15/17 12:33 98.2 86 18 128/76 98.2 03/15/17 12:23 94 Nasal Cannula 2.0 Intake and Output 03/16/17 07:00 Intake Total 340 ml Balance 340 ml Intake Oral 300 ml Blood Product IV Normal Saline Flush 40 ml PHYSICAL EXAM Alert. Oriented to time, place and person. PERRL. EOMI. CN: no focal findings. Muscle tone: normal. Muscle strength: 5/5 DTR: 1+ Plantar reflex: flexor Gait: not examined in bed. Sensory exam: no abnormal findings. No cerebellar signs elicited. Review of Relevant I have reviewed the following items lauryn (where applicable) has been applied. Labs Laboratory Tests Test 03/13/17 16:06 03/13/17 16:35 03/13/17 17:00 03/13/17 20:48 Glucose (Fingerstick) 263 mg/dL (70-99) 238 mg/dL (70-99) 256 mg/dL (70-99) White Blood Count 5.2 x10^3/uL (4.0-11.0) Red Blood Count 2.29 x10^6/uL (4.30-5.70) Hemoglobin 7.1 g/dL (13.0-17.5) Hematocrit 21.1 % (39.0-53.0) Mean Corpuscular Volume 92 fL (79-100) Mean Corpuscular Hemoglobin 31 pg (25-35) Mean Corpuscular Hemoglobin Concent 34 g/dL (31-37) Red Cell Distribution Width 17.3 % (11.5-14.5) Platelet Count 140 x10^3/uL (140-400) Neutrophils (%) (Auto) 73 % (31-73) Lymphocytes (%) (Auto) 11 % (24-48) Monocytes (%) (Auto) 10 % (0-9) Eosinophils (%) (Auto) 6 % (0-3) Basophils (%) (Auto) 1 % (0-3) Neutrophils # (Auto) 3.8 x10^3uL (1.8-7.7) Lymphocytes # (Auto) 0.6 x10^3/uL (1.0-4.8) Monocytes # (Auto) 0.5 x10^3/uL (0.0-1.1) Eosinophils # (Auto) 0.3 x10^3/uL (0.0-0.7) Basophils # (Auto) 0.0 x10^3/uL (0.0-0.2) Sodium Level 142 mmol/L (136-145) Potassium Level 3.8 mmol/L (3.5-5.1) Chloride Level 106 mmol/L (98-107) Carbon Dioxide Level 28 mmol/L (21-32) Anion Gap 8 (6-14) Blood Urea Nitrogen 18 mg/dL (8-26) Creatinine 1.1 mg/dL (0.7-1.3) Estimated GFR (Cockcroft-Gault) 67.6 BUN/Creatinine Ratio 16 (6-20) Glucose Level 255 mg/dL (70-99) Lactic Acid Level 1.5 mmol/L (0.4-2.0) Calcium Level 9.3 mg/dL (8.5-10.1) Magnesium Level 1.6 mg/dL (1.8-2.4) Total Bilirubin 0.5 mg/dL (0.2-1.0) Aspartate Amino Transf (AST/SGOT) 11 U/L (15-37) Alanine Aminotransferase (ALT/SGPT) 13 U/L (16-63) Alkaline Phosphatase 76 U/L (46-116) Total Protein 7.1 g/dL (6.4-8.2) Albumin 2.6 g/dL (3.4-5.0) Albumin/Globulin Ratio 0.6 (1.0-1.7) Test 03/14/17 07:29 03/14/17 08:50 03/14/17 11:18 03/14/17 15:53 Glucose (Fingerstick) 213 mg/dL (70-99) 204 mg/dL (70-99) 198 mg/dL (70-99) White Blood Count 6.0 x10^3/uL (4.0-11.0) Red Blood Count 2.34 x10^6/uL (4.30-5.70) Hemoglobin 7.3 g/dL (13.0-17.5) Hematocrit 21.5 % (39.0-53.0) Mean Corpuscular Volume 92 fL (79-100) Mean Corpuscular Hemoglobin 31 pg (25-35) Mean Corpuscular Hemoglobin Concent 34 g/dL (31-37) Red Cell Distribution Width 17.0 % (11.5-14.5) Platelet Count 132 x10^3/uL (140-400) Neutrophils (%) (Auto) 77 % (31-73) Lymphocytes (%) (Auto) 9 % (24-48) Monocytes (%) (Auto) 8 % (0-9) Eosinophils (%) (Auto) 5 % (0-3) Basophils (%) (Auto) 1 % (0-3) Neutrophils # (Auto) 4.6 x10^3uL (1.8-7.7) Lymphocytes # (Auto) 0.5 x10^3/uL (1.0-4.8) Monocytes # (Auto) 0.5 x10^3/uL (0.0-1.1) Eosinophils # (Auto) 0.3 x10^3/uL (0.0-0.7) Basophils # (Auto) 0.1 x10^3/uL (0.0-0.2) Sodium Level 141 mmol/L (136-145) Potassium Level 3.9 mmol/L (3.5-5.1) Chloride Level 105 mmol/L (98-107) Carbon Dioxide Level 27 mmol/L (21-32) Anion Gap 9 (6-14) Blood Urea Nitrogen 18 mg/dL (8-26) Creatinine 1.1 mg/dL (0.7-1.3) Estimated GFR (Cockcroft-Gault) 67.6 Glucose Level 230 mg/dL (70-99) Calcium Level 9.3 mg/dL (8.5-10.1) Test 03/14/17 20:54 03/15/17 04:30 03/15/17 07:26 03/15/17 10:24 Glucose (Fingerstick) 236 mg/dL (70-99) 191 mg/dL (70-99) 223 mg/dL (70-99) White Blood Count 6.1 x10^3/uL (4.0-11.0) Red Blood Count 2.23 x10^6/uL (4.30-5.70) Hemoglobin 6.9 g/dL (13.0-17.5) Hematocrit 20.6 % (39.0-53.0) Mean Corpuscular Volume 92 fL (79-100) Mean Corpuscular Hemoglobin 31 pg (25-35) Mean Corpuscular Hemoglobin Concent 34 g/dL (31-37) Red Cell Distribution Width 17.0 % (11.5-14.5) Platelet Count 147 x10^3/uL (140-400) Neutrophils (%) (Auto) 75 % (31-73) Lymphocytes (%) (Auto) 9 % (24-48) Monocytes (%) (Auto) 9 % (0-9) Eosinophils (%) (Auto) 6 % (0-3) Basophils (%) (Auto) 1 % (0-3) Neutrophils # (Auto) 4.6 x10^3uL (1.8-7.7) Lymphocytes # (Auto) 0.6 x10^3/uL (1.0-4.8) Monocytes # (Auto) 0.6 x10^3/uL (0.0-1.1) Eosinophils # (Auto) 0.3 x10^3/uL (0.0-0.7) Basophils # (Auto) 0.0 x10^3/uL (0.0-0.2) Reticulocyte Count (auto) 1.5 % (0.5-2.5) Sodium Level 141 mmol/L (136-145) Potassium Level 4.4 mmol/L (3.5-5.1) Chloride Level 106 mmol/L (98-107) Carbon Dioxide Level 27 mmol/L (21-32) Anion Gap 8 (6-14) Blood Urea Nitrogen 24 mg/dL (8-26) Creatinine 1.3 mg/dL (0.7-1.3) Estimated GFR (Cockcroft-Gault) 55.8 Glucose Level 219 mg/dL (70-99) Calcium Level 9.5 mg/dL (8.5-10.1) Iron Level 62 ug/dL (65-175) Total Iron Binding Capacity 222 ug/dL (250-450) Iron Saturation 28 % (15-34) Ferritin 794 ng/mL (26-388) Laboratory Tests Test 03/14/17 15:53 03/14/17 20:54 03/15/17 04:30 03/15/17 07:26 Glucose (Fingerstick) 198 mg/dL (70-99) 236 mg/dL (70-99) 191 mg/dL (70-99) White Blood Count 6.1 x10^3/uL (4.0-11.0) Red Blood Count 2.23 x10^6/uL (4.30-5.70) Hemoglobin 6.9 g/dL (13.0-17.5) Hematocrit 20.6 % (39.0-53.0) Mean Corpuscular Volume 92 fL (79-100) Mean Corpuscular Hemoglobin 31 pg (25-35) Mean Corpuscular Hemoglobin Concent 34 g/dL (31-37) Red Cell Distribution Width 17.0 % (11.5-14.5) Platelet Count 147 x10^3/uL (140-400) Neutrophils (%) (Auto) 75 % (31-73) Lymphocytes (%) (Auto) 9 % (24-48) Monocytes (%) (Auto) 9 % (0-9) Eosinophils (%) (Auto) 6 % (0-3) Basophils (%) (Auto) 1 % (0-3) Neutrophils # (Auto) 4.6 x10^3uL (1.8-7.7) Lymphocytes # (Auto) 0.6 x10^3/uL (1.0-4.8) Monocytes # (Auto) 0.6 x10^3/uL (0.0-1.1) Eosinophils # (Auto) 0.3 x10^3/uL (0.0-0.7) Basophils # (Auto) 0.0 x10^3/uL (0.0-0.2) Reticulocyte Count (auto) 1.5 % (0.5-2.5) Sodium Level 141 mmol/L (136-145) Potassium Level 4.4 mmol/L (3.5-5.1) Chloride Level 106 mmol/L (98-107) Carbon Dioxide Level 27 mmol/L (21-32) Anion Gap 8 (6-14) Blood Urea Nitrogen 24 mg/dL (8-26) Creatinine 1.3 mg/dL (0.7-1.3) Estimated GFR (Cockcroft-Gault) 55.8 Glucose Level 219 mg/dL (70-99) Calcium Level 9.5 mg/dL (8.5-10.1) Iron Level 62 ug/dL (65-175) Total Iron Binding Capacity 222 ug/dL (250-450) Iron Saturation 28 % (15-34) Ferritin 794 ng/mL (26-388) Test 03/15/17 10:24 Glucose (Fingerstick) 223 mg/dL (70-99) Medications Current Medications Diphenhydramine HCl (Benadryl) 50 mg 1X ONCE IVP Last administered on 17:11; Start 03/11/17 at 15:30; Stop 03/11/17 at 15:32; Status DC Ondansetron HCl (Zofran) 4 mg PRN Q8HRS PRN IV NAUSEA/VOMITING; Start 03/11/17 at 18:30; Stop 03/12/17 at 18:29; Status DC Morphine Sulfate 4 mg PRN Q2HR PRN IV PAIN; Start 03/11/17 at 18:30; Stop 03/12 at 18:29; Status DC Acetaminophen (Tylenol) 650 mg PRN Q4HRS PRN PO FEVER; Start 03/11/17 at 18:30 ; Stop 03/12/17 at 18:29; Status DC Clopidogrel Bisulfate (Plavix) 75 mg 1X ONCE PO Last administered on 18:48; Start 03/11/17 at 18:30; Stop 03/11/17 at 18:31; Status DC Aspirin (Omkar Aspirin) 325 mg DAILY PO Last administered on 03/15/17 07:51; Start 03/12/17 at 09:00 Atorvastatin Calcium (Lipitor) 20 mg QHS PO Last administered on 03/14/17 21: 28; Start 03/11/17 at 21:00; Stop 03/15/17 at 10:59; Status DC Celecoxib (CeleBREX) 200 mg BID PO Last administered on 03/15/17 07:51; Start 03/11/17 at 21:00 Vitamin D (Vitamin D3) 1,000 unit DAILY PO Last administered on 03/15/17 07:51 ; Start 03/12/17 at 09:00 Clopidogrel Bisulfate (Plavix) 75 mg DAILY PO Last administered on 03/15/17 07 :51; Start 03/12/17 at 09:00 Docusate Sodium (Colace) 100 mg DAILY PO Last administered on 03/15/17 07:50; Start 03/12/17 at 09:00 Fentanyl (Duragesic 75mcg/ Hr Patch) 1 patch Q3DAYS TD Last administered on 07:50; Start 03/12/17 at 09:00 Acetaminophen/ Hydrocodone Bitart (Lortab 7.5/325) 1 tab PRN Q4HRS PRN PO MODERATE PAIN Last administered on 03/15/17 01:41; Start 03/11/17 at 19:30 Losartan Potassium (Cozaar) 50 mg DAILY PO Last administered on 03/15/17 07:51 ; Start 03/12/17 at 09:00 Metformin HCl (Glucophage) 500 mg BIDWMEALS PO Last administered on 03/15/17 07:50; Start 03/12/17 at 08:00 Pantoprazole Sodium (Protonix) 40 mg DAILYAC PO Last administered on 03/15/17 07:50; Start 03/12/17 at 07:30 Tamsulosin HCl (Flomax) 0.4 mg BID PO Last administered on 03/15/17 07:50; Start 03/11/17 at 21:00 Tamsulosin HCl (Flomax) 0.4 mg HS PO ; Start 03/11/17 at 21:00; Status UNV Citalopram Hydrobromide (CeleXA) 40 mg DAILY PO Last administered on 03/15/17 07:50; Start 03/12/17 at 09:00 Gabapentin (Neurontin) 300 mg BID PO Last administered on 03/15/17 07:51; Start 03/11/17 at 21:00 Insulin Detemir (Levemir) 22 units QHS SQ Last administered on 03/14/17 21:38 ; Start 03/11/17 at 21:00 Non-Formulary Medication 3.375 gm Q6HRS IV ; Start 03/12/17 at 00:00; Status UNV Insulin Aspart (NovoLOG) TIDWMEALS SQ Last administered on 03/15/17 12:21; Start 03/12/17 at 08:00 Dextrose (Dextrose 50%-Water Syringe) 12.5 gm PRN Q15MIN PRN IV SEE COMMENTS; Start 03/11/17 at 19:30 Piperacillin Sod/ Tazobactam Sod 3.375 gm/Sodium Chloride 50 ml @ 100 mls/hr Q6HRS IV Last administered on 03/15/17 05:39; Start 03/12/17 at 00:00; Stop 03/15/17 at 08:19; Status DC Hydromorphone HCl (Dilaudid) 0.5 mg PRN Q3HRS PRN IVP SEVERE PAIN Last administered on 03/12/17 07:55; Start 03/11/17 at 23:15 Albuterol/ Ipratropium (Duoneb) 3 ml RTQID NEB Last administered on 03/15/17 08:49; Start 03/12/17 at 08:00 Albuterol Sulfate (Ventolin Neb Soln) 2.5 mg PRN Q4HRS PRN NEB SHORTNESS OF BREATH; Start 03/12/17 at 06:00 Nystatin (Nystop) 1 rae BID TP Last administered on 03/15/17 08:01; Start at 09:00 Magnesium Sulfate/ Dextrose 50 ml @ 25 mls/hr 1X ONCE IV Last administered on 03/13/17 18:31; Start 03/13/17 at 18:15; Stop 03/14/17 at 13:16; Status DC Magnesium Sulfate/ Dextrose 50 ml @ 25 mls/hr 1X ONCE IV ; Start 03/14/17 at 13 :00; Stop 03/14/17 at 14:59; Status DC Cefepime HCl 2 gm/ Sodium Chloride 100 ml @ 200 mls/hr Q8HRS IV Last administered on 03/15/17 09:14; Start 03/15/17 at 09:00 Atorvastatin Calcium (Lipitor) 40 mg QHS PO ; Start 03/15/17 at 21:00 Active Scripts Active Hydrocodone-Apap 7.5-325 (Hydrocodone Bit/Acetaminophen) 1 Each Tablet 1 Tab PO PRN Q4HRS PRN Reported Tamsulosin Hcl 0.4 Mg Cap.er.24h 1 Cap PO DAILY Zosyn 3.375 Gm Galaxy Bag (Hecvmeyeiusy-Ecos-Roqwkbeh,Iso) 3.375 Gm/50 Ml Froz.piggy 3.375 Gm IV Q6HRS Novolog (Insulin Aspart) 100 Unit/1 Ml Cartridge 15 Unit SQ TIDAC Pantoprazole Sodium 40 Mg Tablet.dr 40 Mg PO DAILY Levemir (Insulin Detemir) 100 Unit/1 Ml Vial 22 Unit SQ HS FENTANYL 75mcg/hr (Fentanyl) 1 Each Patch.td72 1 Patch TP Q3DAYS Colace (Docusate Sodium) 100 Mg Capsule 1 Cap PO DAILY Aspirin 325 Mg Tablet 1 Tab PO DAILY Vitamin D3 (Cholecalciferol (Vitamin D3)) 1,000 Unit Tablet 1 Tab PO DAILY Losartan Potassium 50 Mg Tablet 50 Mg PO DAILY Gabapentin 300 Mg Capsule 300 Mg PO BID Celebrex (Celecoxib) 200 Mg Capsule 200 Mg PO BID 30 Days Citalopram Hbr (Citalopram Hydrobromide) 40 Mg Tablet 40 Mg PO DAILY Lipitor (Atorvastatin Calcium) 20 Mg Tablet 20 Mg PO QHS Flomax (Tamsulosin Hcl) 0.4 Mg Cap.er.24h 0.4 Mg PO HS Metformin Hcl 500 Mg Tablet 500 Mg PO BID Plavix (Clopidogrel Bisulfate) 75 Mg Tablet 75 Mg PO DAILY Vitals/I & O Vital Sign - Last 24 Hours 03/14/17 03/14/17 03/14/17 03/14/17 14:50 15:45 19:26 19:46 Temp 97.6 97.6 97.6 97.6 Pulse 87 89 Resp 20 20 B/P (MAP) 163/70 (101) 137/78 (97) Pulse Ox 96 97 96 O2 Delivery Nasal Cannula Nasal Cannula Nasal Cannula Nasal Cannula O2 Flow Rate 2.0 2.0 2.0 2.0 03/14/17 03/14/17 03/15/17 03/15/17 19:55 23:10 01:41 02:40 Temp 98.1 98.1 Pulse 89 Resp 20 16 18 B/P (MAP) 144/72 (96) Pulse Ox 98 O2 Delivery Nasal Cannula Nasal Cannula Nasal Cannula Nasal Cannula O2 Flow Rate 2.0 2.0 2.0 03/15/17 03/15/17 03/15/17 03/15/17 03:06 07:00 07:50 07:51 Temp 97.4 97.7 97.4 97.7 Pulse 90 96 90 Resp 16 18 B/P (MAP) 128/77 (94) 147/92 (110) 128/77 Pulse Ox 95 93 95 O2 Delivery Nasal Cannula Room Air Nasal Cannula O2 Flow Rate 2.0 2.0 03/15/17 03/15/17 03/15/17 03/15/17 08:00 08:50 10:30 10:46 Temp 98.1 98.0 98.1 98.0 Pulse 90 88 Resp 18 18 B/P (MAP) 131/76 127/73 Pulse Ox 93 O2 Delivery Nasal Cannula Nasal Cannula O2 Flow Rate 2.0 2.0 03/15/17 03/15/17 03/15/17 03/15/17 10:53 11:45 11:56 12:23 Temp 97.9 97.7 97.9 97.7 Pulse 91 84 Resp 18 B/P (MAP) 126/64 (84) 132/78 Pulse Ox 94 94 O2 Delivery Room Air Nasal Cannula Nasal Cannula O2 Flow Rate 2.0 2.0 03/15/17 12:33 Temp 98.2 98.2 Pulse 86 Resp 18 B/P (MAP) 128/76 Intake and Output 03/15/17 03/15/17 03/16/17 15:00 23:00 07:00 Intake Total 340 ml Balance [address] head 03/13: There is no apparent intracranial mass, hemorrhage or abnormal extra-axial fluid collection. No new area of abnormal density is identified in the brain. The ventricles and basilar cisterns are normally positioned. The sinuses and mastoid air cells appear clear. IMPRESSION: No apparent acute intracranial abnormality or change from the prior study. YAZ ESCOBEDO MD Mar 15, 2017 13:14
[2017-03-15] MEDS: ATORVASTATIN CALCIUM 20 MG TABLET PO SCH (21:04)
[2017-03-15] MEDS: INSULIN DETEMIR 300 UNITS/3 ML INSULN.PEN. SQ SCH (21:17)
[2017-03-16] MEDS: HYDROcodone/APAP 7.5/325MG 1 TAB TABLET PO PRN ×2 (01:23→08:51)
[2017-03-16 03:14] VITALS: BP 155/92
[2017-03-16] MEDS: CEFEPIME HCL 2 GM in IV NORMAL SALINE 100ML 100 ML IV SCH ×3 (05:46→21:42)
[2017-03-16 06:08] LABS: BASO % 1 % (0-3); EOS % 5 % (0-3); HEMATOCRIT 21.2 % (39.0-53.0); HEMOGLOBIN 7.4 g/dL (13.0-17.5); LYMPH # 0.6 x10^3/uL (1.0-4.8); LYMPH % 10 % (24-48); MEAN CORPUSCULAR HEMOGLOBIN 32 pg (25-35); MEAN CORPUSCULAR HGB CONC 35 g/dL (31-37); MEAN CORPUSCULAR VOLUME 91 fL (79-100); MONO % 10 % (0-9); NEUT % 74 % (31-73); PLATELET COUNT 144 x10^3/uL (140-400); RED BLOOD COUNT 2.33 x10^6/uL (4.30-5.70); RED CELL DISTRIBUTION WIDTH 17.2 % (11.5-14.5)
--- NOTE | 2017-03-16 06:14 | CONS ---
DATE OF CONSULTATION: 03/15/2017 HEMATOLOGY/ONCOLOGY CONSULTATION Consultation requested by Dr. Rdaha Luo. REASON FOR CONSULTATION: Persistent anemia. HISTORY OF PRESENT ILLNESS: The patient is a 62-year-old gentleman who has history of hypertension, hypercholesterolemia, CVA, neuropathy, GERD, diabetes mellitus and history of hemodialysis, but is not on it at this time and he has had a history of left ankle fusion and revision with external fixation. He has a left heel wound. He was getting rehab at [facility]. He had an episode of altered mental status, becoming aphasic, aphonic and agitated and hence he was transferred to [facility] and admitted on 03/11/2017. CT scan of the head did not show any abnormalities. He has been in the long-term acute care facility for almost 2 months because of wound infection in the left heel. He has had chronic anemia. Review of the old records indicates that he has been anemic since 01/01/2017 with a hemoglobin of 9.6. He has had periods of significant anemia requiring transfusions. Hence, I was consulted for further evaluation. His iron studies from 03/15/2017 revealed iron of 62, TIBC 222, iron saturation 28% and ferritin of 794 suggestive of anemia due to chronic disease. His M-spike on 02/21/2017 was 0.1 with possible presence of monoclonal free lambda light chain on immunofixation. B12 was 421 on 03/11/2017 with folic acid of 6.63. His creatinine improved to 1.3 on 03/15/2017 and the calcium level is normal at 9.5. His total protein is normal at 7.1 with albumin of 2.6. PAST MEDICAL HISTORY: Hypertension, hyperlipidemia, diabetes mellitus, peripheral neuropathy, CVA, GERD, depression, chronic renal insufficiency, left ankle external fixation and left heel wound. FAMILY HISTORY: Diabetes and hypertension. SOCIAL HISTORY: He lives with his , but recently has been in LTAC. No smoking or alcohol abuse. REVIEW OF SYSTEMS: A 12-point review of systems was performed. Pertinent positives are mentioned in the history of present illness. Rest of the system review is negative. PHYSICAL EXAMINATION: GENERAL APPEARANCE: The patient is a 62-year-old gentleman who is in no acute cardiorespiratory distress. VITAL SIGNS: Blood pressure 150/91, temperature 97.7. HEENT: Head: Atraumatic, normocephalic. Eyes: No icterus. NECK: Supple. CHEST: Bilaterally symmetrical. HEART: S1, S2 normal. ABDOMEN: Soft, nontender. CENTRAL NERVOUS SYSTEM: No focal deficits. LYMPHATICS: No lymphadenopathy. SKIN: No rashes. MUSCULOSKELETAL: He has left leg external fixation in place. He also has a left heel wound. LABORATORY DATA: WBC 6.1, hemoglobin 6.9, platelet count 147. IMPRESSION AND PLAN: 1. Anemia. Iron studies are suggestive of anemia due to chronic disease. He has multiple comorbid conditions. He has persistent left heel wound and he has noticed some bleeding from that occasionally. I suspect that the etiology of anemia is due to chronic disease and chronic left heel wound. I will continue to monitor hemoglobin and transfuse as needed. His reticulocyte count is 1.5 and hence I do not suspect hemolysis. His iron studies, B12 and folic acid do not reveal any deficiencies. His differential count is unremarkable and there is no evidence of immature white cells to suggest leukemia. It is very unlikely that he has a primary bone marrow disorder. Bone marrow biopsy would be reasonable to consider when he is able to lie down. The patient has external fixation apparatus in the left leg. This will be difficult to perform at this time and it is not an emergency. He does have a M-spike noted during his prior labs and hence a bone marrow biopsy would be reasonable to be performed when possible. 2. 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 Plan for a bone marrow aspiration and biopsy when he is unable to tolerate. 3. Left heel wound. Appreciate management per Infectious Diseases. I discussed with Dr. Radha Luo. He has been started on cefepime. 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 KAYCE MCKEON MD DR: TULIO/annika JOB#: [id number] / [id number] RADHA Vera MD [facility]
[2017-03-16 06:34] LABS: CALCIUM 9.3 mg/dL (8.5-10.1); CREATININE 1.2 mg/dL (0.7-1.3); GFR 61.1; POTASSIUM 4.3 mmol/L (3.5-5.1)
[2017-03-16 06:50] VITALS: BP 138/80
[2017-03-16] MEDS: IPRATRPIUM/ALBUTEROL 0.5/2.5MG 3 ML NEBU. NEB SCH ×4 (07:12→19:57)
--- NOTE | 2017-03-16 08:30 | PDOC ---
Infectious Disease Note Subjective Subjective Better Groin rash improving c/o mild let foot pain at times ROS ROS GEN: Denies fevers, chills, sweats HEENT: Denies blurred vision, sore throat CV: Denies chest pain RESP: Denies shortness of air, cough GI: Denies n/v/d NEURO: Denies confusion, dizziness MSK: Denies weakness, joint pain/swelling Vital Sign Vital Signs Vital Signs Date Time Temp Pulse Resp B/P (MAP) Pulse Ox O2 Delivery O2 Flow Rate FiO2 03/16/17 07:14 99 Nasal Cannula 2.0 03/16/17 06:50 97.9 82 19 138/80 (99) 97.9 Physical Exam PHYSICAL EXAM GENERAL: NAD, Alert, sitting on side of bed, coop HEENT: PERRL, OC/OP - clear NECK: Supple, no JVD, no LN LUNGS: Clear HEART: S1S2, no gallop, no murmur ABD: Soft, NT, no organomegaly, no rebound, obese EXT: No edema, no cyanosis. Ex-fix to LLE - clean. R LE dressed ACIDIZER: Alert, 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, no focal neurologic deficit SKIN: No rash IV: LUE - clean Labs Lab Laboratory Tests Test 03/15/17 10:24 03/15/17 17:19 03/15/17 19:48 03/16/17 05:30 Glucose (Fingerstick) 223 mg/dL (70-99) 243 mg/dL (70-99) 263 mg/dL (70-99) White Blood Count 6.0 x10^3/uL (4.0-11.0) Red Blood Count 2.33 x10^6/uL (4.30-5.70) Hemoglobin 7.4 g/dL (13.0-17.5) Hematocrit 21.2 % (39.0-53.0) Mean Corpuscular Volume 91 fL (79-100) Mean Corpuscular Hemoglobin 32 pg (25-35) Mean Corpuscular Hemoglobin Concent 35 g/dL (31-37) Red Cell Distribution Width 17.2 % (11.5-14.5) Platelet Count 144 x10^3/uL (140-400) Neutrophils (%) (Auto) 74 % (31-73) Lymphocytes (%) (Auto) 10 % (24-48) Monocytes (%) (Auto) 10 % (0-9) Eosinophils (%) (Auto) 5 % (0-3) Basophils (%) (Auto) 1 % (0-3) Neutrophils # (Auto) 4.5 x10^3uL (1.8-7.7) Lymphocytes # (Auto) 0.6 x10^3/uL (1.0-4.8) Monocytes # (Auto) 0.6 x10^3/uL (0.0-1.1) Eosinophils # (Auto) 0.3 x10^3/uL (0.0-0.7) Basophils # (Auto) 0.0 x10^3/uL (0.0-0.2) Sodium Level 141 mmol/L (136-145) Potassium Level 4.3 mmol/L (3.5-5.1) Chloride Level 106 mmol/L (98-107) Carbon Dioxide Level 28 mmol/L (21-32) Anion Gap 7 (6-14) Blood Urea Nitrogen 25 mg/dL (8-26) Creatinine 1.2 mg/dL (0.7-1.3) Estimated GFR (Cockcroft-Gault) 61.1 Glucose Level 220 mg/dL (70-99) Calcium Level 9.3 mg/dL (8.5-10.1) Test 03/16/17 07:30 Glucose (Fingerstick) 186 mg/dL (70-99) Objective Assessment Left ankle infection -hx proteus, PSA, Enterococcus and MSSA Left foot infection Anemia - for several months - evaluated by Dr. Ravi previously. S/p PRBCs . Appreciate Dr. Ravi f/u Right calcaneal wound - superficial Encephalopathy, CT neg. improved DM ? Talus fracture left Previous CVA Plan Plan of Care Cont Cefepime for 2 weeks. Weekly CBC/Sed rate/Cr - fax to [phone] Cont Nystatin Leg elevation Supportive care F/u ID office 2 weeks [phone] Await Ortho f/u RADHA SILVA MD Mar 16, 2017 08:30
[2017-03-16] MEDS: CELECOXIB 200 MG CAPSULE. PO SCH ×2 (08:48→21:41)
[2017-03-16] MEDS: PANTOPRAZOLE 40 MG TABLET.DR. PO SCH (08:49)
[2017-03-16] MEDS: DOCUSATE SODIUM 100 MG CAPSULE. PO SCH (08:51)
[2017-03-16] MEDS: CLOPIDOGREL BISULFATE 75 MG TABLET PO SCH (08:52)
[2017-03-16] MEDS: CITALOPRAM 20 MG TABLET. PO SCH (08:53)
[2017-03-16] MEDS: metFORMIN 500 MG TABLET PO SCH ×2 (08:53→17:55)
[2017-03-16] MEDS: TAMSULOSIN 0.4 MG CAP.ER.24H. PO SCH ×2 (08:53→21:41)
[2017-03-16] MEDS: CHOLECALCIFEROL (VITAMIN D3) 1,000 UNIT TABLET PO SCH (08:55)
[2017-03-16] MEDS: ASPIRIN 325 MG TABLET PO SCH (08:55)
[2017-03-16] MEDS: LOSARTAN POTASSIUM 50 MG TABLET. PO SCH (08:55)
[2017-03-16] MEDS: GABAPENTIN 300 MG CAPSULE. PO SCH ×2 (08:56→21:41)
[2017-03-16] MEDS: INSULIN ASPART 300 UNITS/3 ML INSULN.PEN SQ SCH ×3 (08:58→17:58)
[2017-03-16] MEDS: NYSTATIN TOPICAL POWDER 15GM BOTTLE. TP SCH ×2 (09:00→21:00)
--- NOTE | 2017-03-16 11:11 | PDOC ---
PROGRESS NOTES Chief Complaint Chief Complaint Fall Aphasia PMH: HTN Hyperlipidemia Peripheral Neuropathy CVA GERD Depression CRI History of Present Illness History of Present Illness Pt was laying in bed and conversant. He has no new complaints at this time. There was a wound vac running on his left leg. External fixators were also in place on this leg. Discussed plan of care with him including further workup with Heme/Onc Neuro will cont. Plavix, ASA, and Lipitor. No stroke or ischemia is noted. Dysarthria is most likely secondary to metabolic abnormality or narcotic use. Heme/Onc - Anemia most likely due to chronic disease. would like to obtain a bone marrow biopsy once his acute condition improves. Pt has had M spike in the past (02/21/17) ID - cont cefepime and nystatin Vitals Vitals Vital Signs Date Time Temp Pulse Resp B/P (MAP) Pulse Ox O2 Delivery O2 Flow Rate FiO2 03/16/17 08:55 82 138/80 03/16/17 08:51 18 Room Air 03/16/17 08:00 2.0 03/16/17 07:14 99 03/16/17 06:50 97.9 97.9 Physical Exam General: Alert, Oriented X3, Cooperative, No acute distress Heart: Regular rate, Normal S1, Normal S2 Lungs: Clear Abdomen: Normal bowel sounds, Soft, No tenderness, Other (morbidly obese) Extremities: No clubbing, No cyanosis, Other (left lower extremity external fixator in place) Skin: No rashes, Other (LLE wound with wound vac in place and draining ) Labs LABS Laboratory Tests Test 03/15/17 17:19 03/15/17 19:48 03/16/17 05:30 03/16/17 07:30 Glucose (Fingerstick) 243 mg/dL (70-99) 263 mg/dL (70-99) 186 mg/dL (70-99) White Blood Count 6.0 x10^3/uL (4.0-11.0) Red Blood Count 2.33 x10^6/uL (4.30-5.70) Hemoglobin 7.4 g/dL (13.0-17.5) Hematocrit 21.2 % (39.0-53.0) Mean Corpuscular Volume 91 fL (79-100) Mean Corpuscular Hemoglobin 32 pg (25-35) Mean Corpuscular Hemoglobin Concent 35 g/dL (31-37) Red Cell Distribution Width 17.2 % (11.5-14.5) Platelet Count 144 x10^3/uL (140-400) Neutrophils (%) (Auto) 74 % (31-73) Lymphocytes (%) (Auto) 10 % (24-48) Monocytes (%) (Auto) 10 % (0-9) Eosinophils (%) (Auto) 5 % (0-3) Basophils (%) (Auto) 1 % (0-3) Neutrophils # (Auto) 4.5 x10^3uL (1.8-7.7) Lymphocytes # (Auto) 0.6 x10^3/uL (1.0-4.8) Monocytes # (Auto) 0.6 x10^3/uL (0.0-1.1) Eosinophils # (Auto) 0.3 x10^3/uL (0.0-0.7) Basophils # (Auto) 0.0 x10^3/uL (0.0-0.2) Sodium Level 141 mmol/L (136-145) Potassium Level 4.3 mmol/L (3.5-5.1) Chloride Level 106 mmol/L (98-107) Carbon Dioxide Level 28 mmol/L (21-32) Anion Gap 7 (6-14) Blood Urea Nitrogen 25 mg/dL (8-26) Creatinine 1.2 mg/dL (0.7-1.3) Estimated GFR (Cockcroft-Gault) 61.1 Glucose Level 220 mg/dL (70-99) Calcium Level 9.3 mg/dL (8.5-10.1) Review of Systems Review of Systems Pt complains of hunger Pt complains of fatigue Assessment and Plan Assessmemt and Plan Fall Aphasia Anemiaof chronic disease PMH: HTN Hyperlipidemia Peripheral Neuropathy CVA GERD Depression CRI Plan: Anemia, may need another transfusion Monitor Hgb Recheck labs PT/OT cont. abx Cont. wound care appreciate subspecialist input Problems: Comment Review of Relevant I have reviewed the following items lauryn (where applicable) has been applied. Labs Laboratory Tests Test 03/14/17 11:18 03/14/17 15:53 03/14/17 20:54 03/15/17 04:30 Glucose (Fingerstick) 204 mg/dL (70-99) 198 mg/dL (70-99) 236 mg/dL (70-99) White Blood Count 6.1 x10^3/uL (4.0-11.0) Red Blood Count 2.23 x10^6/uL (4.30-5.70) Hemoglobin 6.9 g/dL (13.0-17.5) Hematocrit 20.6 % (39.0-53.0) Mean Corpuscular Volume 92 fL (79-100) Mean Corpuscular Hemoglobin 31 pg (25-35) Mean Corpuscular Hemoglobin Concent 34 g/dL (31-37) Red Cell Distribution Width 17.0 % (11.5-14.5) Platelet Count 147 x10^3/uL (140-400) Neutrophils (%) (Auto) 75 % (31-73) Lymphocytes (%) (Auto) 9 % (24-48) Monocytes (%) (Auto) 9 % (0-9) Eosinophils (%) (Auto) 6 % (0-3) Basophils (%) (Auto) 1 % (0-3) Neutrophils # (Auto) 4.6 x10^3uL (1.8-7.7) Lymphocytes # (Auto) 0.6 x10^3/uL (1.0-4.8) Monocytes # (Auto) 0.6 x10^3/uL (0.0-1.1) Eosinophils # (Auto) 0.3 x10^3/uL (0.0-0.7) Basophils # (Auto) 0.0 x10^3/uL (0.0-0.2) Reticulocyte Count (auto) 1.5 % (0.5-2.5) Sodium Level 141 mmol/L (136-145) Potassium Level 4.4 mmol/L (3.5-5.1) Chloride Level 106 mmol/L (98-107) Carbon Dioxide Level 27 mmol/L (21-32) Anion Gap 8 (6-14) Blood Urea Nitrogen 24 mg/dL (8-26) Creatinine 1.3 mg/dL (0.7-1.3) Estimated GFR (Cockcroft-Gault) 55.8 Glucose Level 219 mg/dL (70-99) Calcium Level 9.5 mg/dL (8.5-10.1) Iron Level 62 ug/dL (65-175) Total Iron Binding Capacity 222 ug/dL (250-450) Iron Saturation 28 % (15-34) Ferritin 794 ng/mL (26-388) Test 03/15/17 07:26 03/15/17 10:24 03/15/17 17:19 03/15/17 19:48 Glucose (Fingerstick) 191 mg/dL (70-99) 223 mg/dL (70-99) 243 mg/dL (70-99) 263 mg/dL (70-99) Test 03/16/17 05:30 03/16/17 07:30 White Blood Count 6.0 x10^3/uL (4.0-11.0) Red Blood Count 2.33 x10^6/uL (4.30-5.70) Hemoglobin 7.4 g/dL (13.0-17.5) Hematocrit 21.2 % (39.0-53.0) Mean Corpuscular Volume 91 fL (79-100) Mean Corpuscular Hemoglobin 32 pg (25-35) Mean Corpuscular Hemoglobin Concent 35 g/dL (31-37) Red Cell Distribution Width 17.2 % (11.5-14.5) Platelet Count 144 x10^3/uL (140-400) Neutrophils (%) (Auto) 74 % (31-73) Lymphocytes (%) (Auto) 10 % (24-48) Monocytes (%) (Auto) 10 % (0-9) Eosinophils (%) (Auto) 5 % (0-3) Basophils (%) (Auto) 1 % (0-3) Neutrophils # (Auto) 4.5 x10^3uL (1.8-7.7) Lymphocytes # (Auto) 0.6 x10^3/uL (1.0-4.8) Monocytes # (Auto) 0.6 x10^3/uL (0.0-1.1) Eosinophils # (Auto) 0.3 x10^3/uL (0.0-0.7) Basophils # (Auto) 0.0 x10^3/uL (0.0-0.2) Sodium Level 141 mmol/L (136-145) Potassium Level 4.3 mmol/L (3.5-5.1) Chloride Level 106 mmol/L (98-107) Carbon Dioxide Level 28 mmol/L (21-32) Anion Gap 7 (6-14) Blood Urea Nitrogen 25 mg/dL (8-26) Creatinine 1.2 mg/dL (0.7-1.3) Estimated GFR (Cockcroft-Gault) 61.1 Glucose Level 220 mg/dL (70-99) Calcium Level 9.3 mg/dL (8.5-10.1) Glucose (Fingerstick) 186 mg/dL (70-99) Laboratory Tests Test 03/15/17 17:19 03/15/17 19:48 03/16/17 05:30 03/16/17 07:30 Glucose (Fingerstick) 243 mg/dL (70-99) 263 mg/dL (70-99) 186 mg/dL (70-99) White Blood Count 6.0 x10^3/uL (4.0-11.0) Red Blood Count 2.33 x10^6/uL (4.30-5.70) Hemoglobin 7.4 g/dL (13.0-17.5) Hematocrit 21.2 % (39.0-53.0) Mean Corpuscular Volume 91 fL (79-100) Mean Corpuscular Hemoglobin 32 pg (25-35) Mean Corpuscular Hemoglobin Concent 35 g/dL (31-37) Red Cell Distribution Width 17.2 % (11.5-14.5) Platelet Count 144 x10^3/uL (140-400) Neutrophils (%) (Auto) 74 % (31-73) Lymphocytes (%) (Auto) 10 % (24-48) Monocytes (%) (Auto) 10 % (0-9) Eosinophils (%) (Auto) 5 % (0-3) Basophils (%) (Auto) 1 % (0-3) Neutrophils # (Auto) 4.5 x10^3uL (1.8-7.7) Lymphocytes # (Auto) 0.6 x10^3/uL (1.0-4.8) Monocytes # (Auto) 0.6 x10^3/uL (0.0-1.1) Eosinophils # (Auto) 0.3 x10^3/uL (0.0-0.7) Basophils # (Auto) 0.0 x10^3/uL (0.0-0.2) Sodium Level 141 mmol/L (136-145) Potassium Level 4.3 mmol/L (3.5-5.1) Chloride Level 106 mmol/L (98-107) Carbon Dioxide Level 28 mmol/L (21-32) Anion Gap 7 (6-14) Blood Urea Nitrogen 25 mg/dL (8-26) Creatinine 1.2 mg/dL (0.7-1.3) Estimated GFR (Cockcroft-Gault) 61.1 Glucose Level 220 mg/dL (70-99) Calcium Level 9.3 mg/dL (8.5-10.1) Medications Current Medications Diphenhydramine HCl (Benadryl) 50 mg 1X ONCE IVP Last administered on 17:11; Start 03/11/17 at 15:30; Stop 03/11/17 at 15:32; Status DC Ondansetron HCl (Zofran) 4 mg PRN Q8HRS PRN IV NAUSEA/VOMITING; Start 03/11/17 at 18:30; Stop 03/12/17 at 18:29; Status DC Morphine Sulfate 4 mg PRN Q2HR PRN IV PAIN; Start 03/11/17 at 18:30; Stop 03/12 at 18:29; Status DC Acetaminophen (Tylenol) 650 mg PRN Q4HRS PRN PO FEVER; Start 03/11/17 at 18:30 ; Stop 03/12/17 at 18:29; Status DC Clopidogrel Bisulfate (Plavix) 75 mg 1X ONCE PO Last administered on 18:48; Start 03/11/17 at 18:30; Stop 03/11/17 at 18:31; Status DC Aspirin (Omkar Aspirin) 325 mg DAILY PO Last administered on 03/16/17 08:55; Start 03/12/17 at 09:00 Atorvastatin Calcium (Lipitor) 20 mg QHS PO Last administered on 03/14/17 21: 28; Start 03/11/17 at 21:00; Stop 03/15/17 at 10:59; Status DC Celecoxib (CeleBREX) 200 mg BID PO Last administered on 03/16/17 08:48; Start 03/11/17 at 21:00 Vitamin D (Vitamin D3) 1,000 unit DAILY PO Last administered on 03/16/17 08:55 ; Start 03/12/17 at 09:00 Clopidogrel Bisulfate (Plavix) 75 mg DAILY PO Last administered on 03/16/17 08 :52; Start 03/12/17 at 09:00 Docusate Sodium (Colace) 100 mg DAILY PO Last administered on 03/16/17 08:51; Start 03/12/17 at 09:00 Fentanyl (Duragesic 75mcg/ Hr Patch) 1 patch Q3DAYS TD Last administered on 07:50; Start 03/12/17 at 09:00 Acetaminophen/ Hydrocodone Bitart (Lortab 7.5/325) 1 tab PRN Q4HRS PRN PO MODERATE PAIN Last administered on 03/16/17 08:51; Start 03/11/17 at 19:30 Losartan Potassium (Cozaar) 50 mg DAILY PO Last administered on 03/16/17 08:55 ; Start 03/12/17 at 09:00 Metformin HCl (Glucophage) 500 mg BIDWMEALS PO Last administered on 03/16/17 08:53; Start 03/12/17 at 08:00 Pantoprazole Sodium (Protonix) 40 mg DAILYAC PO Last administered on 03/16/17 08:49; Start 03/12/17 at 07:30 Tamsulosin HCl (Flomax) 0.4 mg BID PO Last administered on 03/16/17 08:53; Start 03/11/17 at 21:00 Tamsulosin HCl (Flomax) 0.4 mg HS PO ; Start 03/11/17 at 21:00; Status UNV Citalopram Hydrobromide (CeleXA) 40 mg DAILY PO Last administered on 03/16/17 08:53; Start 03/12/17 at 09:00 Gabapentin (Neurontin) 300 mg BID PO Last administered on 03/16/17 08:56; Start 03/11/17 at 21:00 Insulin Detemir (Levemir) 22 units QHS SQ Last administered on 03/15/17 21:17 ; Start 03/11/17 at 21:00 Non-Formulary Medication 3.375 gm Q6HRS IV ; Start 03/12/17 at 00:00; Status UNV Insulin Aspart (NovoLOG) TIDWMEALS SQ Last administered on 03/16/17 08:58; Start 03/12/17 at 08:00 Dextrose (Dextrose 50%-Water Syringe) 12.5 gm PRN Q15MIN PRN IV SEE COMMENTS; Start 03/11/17 at 19:30 Piperacillin Sod/ Tazobactam Sod 3.375 gm/Sodium Chloride 50 ml @ 100 mls/hr Q6HRS IV Last administered on 03/15/17 05:39; Start 03/12/17 at 00:00; Stop 03/15/17 at 08:19; Status DC Hydromorphone HCl (Dilaudid) 0.5 mg PRN Q3HRS PRN IVP SEVERE PAIN Last administered on 03/12/17 07:55; Start 03/11/17 at 23:15 Albuterol/ Ipratropium (Duoneb) 3 ml RTQID NEB Last administered on 03/16/17 07:12; Start 03/12/17 at 08:00 Albuterol Sulfate (Ventolin Neb Soln) 2.5 mg PRN Q4HRS PRN NEB SHORTNESS OF BREATH; Start 03/12/17 at 06:00 Nystatin (Nystop) 1 rae BID TP Last administered on 03/16/17 09:00; Start at 09:00 Magnesium Sulfate/ Dextrose 50 ml @ 25 mls/hr 1X ONCE IV Last administered on 03/13/17 18:31; Start 03/13/17 at 18:15; Stop 03/14/17 at 13:16; Status DC Magnesium Sulfate/ Dextrose 50 ml @ 25 mls/hr 1X ONCE IV ; Start 03/14/17 at 13 :00; Stop 03/14/17 at 14:59; Status DC Cefepime HCl 2 gm/ Sodium Chloride 100 ml @ 200 mls/hr Q8HRS IV Last administered on 03/16/17 05:46; Start 03/15/17 at 09:00 Atorvastatin Calcium (Lipitor) 40 mg QHS PO Last administered on 03/15/17 21: 04; Start 03/15/17 at 21:00 Active Scripts Active Hydrocodone-Apap 7.5-325 (Hydrocodone Bit/Acetaminophen) 1 Each Tablet 1 Tab PO PRN Q4HRS PRN Reported Tamsulosin Hcl 0.4 Mg Cap.er.24h 1 Cap PO DAILY Zosyn 3.375 Gm Galaxy Bag (Zozzlgescotv-Robz-Dkiwevlv,Iso) 3.375 Gm/50 Ml Froz.piggy 3.375 Gm IV Q6HRS Novolog (Insulin Aspart) 100 Unit/1 Ml Cartridge 15 Unit SQ TIDAC Pantoprazole Sodium 40 Mg Tablet.dr 40 Mg PO DAILY Levemir (Insulin Detemir) 100 Unit/1 Ml Vial 22 Unit SQ HS FENTANYL 75mcg/hr (Fentanyl) 1 Each Patch.td72 1 Patch TP Q3DAYS Colace (Docusate Sodium) 100 Mg Capsule 1 Cap PO DAILY Aspirin 325 Mg Tablet 1 Tab PO DAILY Vitamin D3 (Cholecalciferol (Vitamin D3)) 1,000 Unit Tablet 1 Tab PO DAILY Losartan Potassium 50 Mg Tablet 50 Mg PO DAILY Gabapentin 300 Mg Capsule 300 Mg PO BID Celebrex (Celecoxib) 200 Mg Capsule 200 Mg PO BID 30 Days Citalopram Hbr (Citalopram Hydrobromide) 40 Mg Tablet 40 Mg PO DAILY Lipitor (Atorvastatin Calcium) 20 Mg Tablet 20 Mg PO QHS Flomax (Tamsulosin Hcl) 0.4 Mg Cap.er.24h 0.4 Mg PO HS Metformin Hcl 500 Mg Tablet 500 Mg PO BID Plavix (Clopidogrel Bisulfate) 75 Mg Tablet 75 Mg PO DAILY Vitals/I & O Vital Sign - Last 24 Hours 03/15/17 03/15/17 03/15/17 03/15/17 11:45 11:56 12:23 12:33 Temp 97.7 98.2 97.7 98.2 Pulse 84 86 Resp 18 B/P (MAP) 132/78 128/76 Pulse Ox 94 O2 Delivery Nasal Cannula Nasal Cannula O2 Flow Rate 2.0 2.0 03/15/17 03/15/17 03/15/17 03/15/17 14:53 15:31 19:57 20:00 Temp 97.7 98.4 97.7 98.4 Pulse 96 91 Resp 18 18 B/P (MAP) 150/91 (110) 143/81 (101) Pulse Ox 96 96 O2 Delivery Room Air Nasal Cannula Room Air Nasal Cannula O2 Flow Rate 2.0 2.0 03/15/17 03/15/17 03/16/17 03/16/17 20:52 23:00 03:14 06:50 Temp 97.6 98.1 97.9 97.6 98.1 97.9 Pulse 87 88 82 Resp 18 20 19 B/P (MAP) 163/73 (103) 155/92 (113) 138/80 (99) Pulse Ox 93 95 92 97 O2 Delivery Nasal Cannula Room Air Nasal Cannula Nasal Cannula O2 Flow Rate 2.0 3.0 3.0 03/16/17 03/16/17 03/16/17 03/16/17 07:14 08:00 08:51 08:55 Pulse 82 Resp 18 B/P (MAP) 138/80 Pulse Ox 99 O2 Delivery Nasal Cannula Nasal Cannula Room Air O2 Flow Rate 2.0 2.0 Intake and Output 03/16/17 03/16/17 03/17/17 15:00 23:00 07:00 Intake Total 300 ml Balance 300 ml PRATIBHA FATIMA III DO Mar 16, 2017 11:10
[2017-03-16] MEDS ORDERED: ALTEPLASE 2 MG VIAL INT CAT ONE (11:15)
[2017-03-16 11:28] VITALS: BP 128/83
--- NOTE | 2017-03-16 12:45 | PDOC ---
PROGRESS NOTES Assessment Dysarthria, probably due to metabolic problems or maybe just the narcotics No evidence of stroke or transient ischemic attack Metabolic encephalopathy. Plan Continue Plavix 75 mg daily. Continue ASA daily. Continue Lipitor HS. Treat UTI per floor team. Treat medical diseases. Dr. Ruiz thinks patient should see Vascular Surgery as out-patient. OT/PT. SNU or acute rehab Subjective No further episodes of dysarthria Objective Vital Signs Date Time Temp Pulse Resp B/P (MAP) Pulse Ox O2 Delivery O2 Flow Rate FiO2 03/16/17 12:41 69 Nasal Cannula 3.0 03/16/17 11:28 97.9 89 19 128/83 (98) 97.9 Intake and Output 03/17/17 07:00 Intake Total 300 ml Balance 300 ml Intake Oral 300 ml PHYSICAL EXAM Alert. Oriented to time, place and person. PERRL. EOMI. CN: no focal findings. Muscle tone: normal. Muscle strength: 5/5 DTR: 1+ Plantar reflex: flexor Gait: not examined in bed. Sensory exam: no abnormal findings. No cerebellar signs elicited. Review of Relevant I have reviewed the following items lauryn (where applicable) has been applied. Labs Laboratory Tests Test 03/14/17 15:53 03/14/17 20:54 03/15/17 04:30 03/15/17 07:26 Glucose (Fingerstick) 198 mg/dL (70-99) 236 mg/dL (70-99) 191 mg/dL (70-99) White Blood Count 6.1 x10^3/uL (4.0-11.0) Red Blood Count 2.23 x10^6/uL (4.30-5.70) Hemoglobin 6.9 g/dL (13.0-17.5) Hematocrit 20.6 % (39.0-53.0) Mean Corpuscular Volume 92 fL (79-100) Mean Corpuscular Hemoglobin 31 pg (25-35) Mean Corpuscular Hemoglobin Concent 34 g/dL (31-37) Red Cell Distribution Width 17.0 % (11.5-14.5) Platelet Count 147 x10^3/uL (140-400) Neutrophils (%) (Auto) 75 % (31-73) Lymphocytes (%) (Auto) 9 % (24-48) Monocytes (%) (Auto) 9 % (0-9) Eosinophils (%) (Auto) 6 % (0-3) Basophils (%) (Auto) 1 % (0-3) Neutrophils # (Auto) 4.6 x10^3uL (1.8-7.7) Lymphocytes # (Auto) 0.6 x10^3/uL (1.0-4.8) Monocytes # (Auto) 0.6 x10^3/uL (0.0-1.1) Eosinophils # (Auto) 0.3 x10^3/uL (0.0-0.7) Basophils # (Auto) 0.0 x10^3/uL (0.0-0.2) Reticulocyte Count (auto) 1.5 % (0.5-2.5) Sodium Level 141 mmol/L (136-145) Potassium Level 4.4 mmol/L (3.5-5.1) Chloride Level 106 mmol/L (98-107) Carbon Dioxide Level 27 mmol/L (21-32) Anion Gap 8 (6-14) Blood Urea Nitrogen 24 mg/dL (8-26) Creatinine 1.3 mg/dL (0.7-1.3) Estimated GFR (Cockcroft-Gault) 55.8 Glucose Level 219 mg/dL (70-99) Calcium Level 9.5 mg/dL (8.5-10.1) Iron Level 62 ug/dL (65-175) Total Iron Binding Capacity 222 ug/dL (250-450) Iron Saturation 28 % (15-34) Ferritin 794 ng/mL (26-388) Test 03/15/17 10:24 03/15/17 17:19 03/15/17 19:48 03/16/17 05:30 Glucose (Fingerstick) 223 mg/dL (70-99) 243 mg/dL (70-99) 263 mg/dL (70-99) White Blood Count 6.0 x10^3/uL (4.0-11.0) Red Blood Count 2.33 x10^6/uL (4.30-5.70) Hemoglobin 7.4 g/dL (13.0-17.5) Hematocrit 21.2 % (39.0-53.0) Mean Corpuscular Volume 91 fL (79-100) Mean Corpuscular Hemoglobin 32 pg (25-35) Mean Corpuscular Hemoglobin Concent 35 g/dL (31-37) Red Cell Distribution Width 17.2 % (11.5-14.5) Platelet Count 144 x10^3/uL (140-400) Neutrophils (%) (Auto) 74 % (31-73) Lymphocytes (%) (Auto) 10 % (24-48) Monocytes (%) (Auto) 10 % (0-9) Eosinophils (%) (Auto) 5 % (0-3) Basophils (%) (Auto) 1 % (0-3) Neutrophils # (Auto) 4.5 x10^3uL (1.8-7.7) Lymphocytes # (Auto) 0.6 x10^3/uL (1.0-4.8) Monocytes # (Auto) 0.6 x10^3/uL (0.0-1.1) Eosinophils # (Auto) 0.3 x10^3/uL (0.0-0.7) Basophils # (Auto) 0.0 x10^3/uL (0.0-0.2) Sodium Level 141 mmol/L (136-145) Potassium Level 4.3 mmol/L (3.5-5.1) Chloride Level 106 mmol/L (98-107) Carbon Dioxide Level 28 mmol/L (21-32) Anion Gap 7 (6-14) Blood Urea Nitrogen 25 mg/dL (8-26) Creatinine 1.2 mg/dL (0.7-1.3) Estimated GFR (Cockcroft-Gault) 61.1 Glucose Level 220 mg/dL (70-99) Calcium Level 9.3 mg/dL (8.5-10.1) Test 03/16/17 07:30 03/16/17 11:11 Glucose (Fingerstick) 186 mg/dL (70-99) 255 mg/dL (70-99) Laboratory Tests Test 03/15/17 17:19 03/15/17 19:48 03/16/17 05:30 03/16/17 07:30 Glucose (Fingerstick) 243 mg/dL (70-99) 263 mg/dL (70-99) 186 mg/dL (70-99) White Blood Count 6.0 x10^3/uL (4.0-11.0) Red Blood Count 2.33 x10^6/uL (4.30-5.70) Hemoglobin 7.4 g/dL (13.0-17.5) Hematocrit 21.2 % (39.0-53.0) Mean Corpuscular Volume 91 fL (79-100) Mean Corpuscular Hemoglobin 32 pg (25-35) Mean Corpuscular Hemoglobin Concent 35 g/dL (31-37) Red Cell Distribution Width 17.2 % (11.5-14.5) Platelet Count 144 x10^3/uL (140-400) Neutrophils (%) (Auto) 74 % (31-73) Lymphocytes (%) (Auto) 10 % (24-48) Monocytes (%) (Auto) 10 % (0-9) Eosinophils (%) (Auto) 5 % (0-3) Basophils (%) (Auto) 1 % (0-3) Neutrophils # (Auto) 4.5 x10^3uL (1.8-7.7) Lymphocytes # (Auto) 0.6 x10^3/uL (1.0-4.8) Monocytes # (Auto) 0.6 x10^3/uL (0.0-1.1) Eosinophils # (Auto) 0.3 x10^3/uL (0.0-0.7) Basophils # (Auto) 0.0 x10^3/uL (0.0-0.2) Sodium Level 141 mmol/L (136-145) Potassium Level 4.3 mmol/L (3.5-5.1) Chloride Level 106 mmol/L (98-107) Carbon Dioxide Level 28 mmol/L (21-32) Anion Gap 7 (6-14) Blood Urea Nitrogen 25 mg/dL (8-26) Creatinine 1.2 mg/dL (0.7-1.3) Estimated GFR (Cockcroft-Gault) 61.1 Glucose Level 220 mg/dL (70-99) Calcium Level 9.3 mg/dL (8.5-10.1) Test 03/16/17 11:11 Glucose (Fingerstick) 255 mg/dL (70-99) Medications Current Medications Diphenhydramine HCl (Benadryl) 50 mg 1X ONCE IVP Last administered on t 17:11; Start 03/11/17 at 15:30; Stop 03/11/17 at 15:32; Status DC Ondansetron HCl (Zofran) 4 mg PRN Q8HRS PRN IV NAUSEA/VOMITING; Start 03/11/17 at 18:30; Stop 03/12/17 at 18:29; Status DC Morphine Sulfate 4 mg PRN Q2HR PRN IV PAIN; Start 03/11/17 at 18:30; Stop 03/12 at 18:29; Status DC Acetaminophen (Tylenol) 650 mg PRN Q4HRS PRN PO FEVER; Start 03/11/17 at 18:30 ; Stop 03/12/17 at 18:29; Status DC Clopidogrel Bisulfate (Plavix) 75 mg 1X ONCE PO Last administered on 18:48; Start 03/11/17 at 18:30; Stop 03/11/17 at 18:31; Status DC Aspirin (Omkar Aspirin) 325 mg DAILY PO Last administered on 03/16/17 08:55; Start 03/12/17 at 09:00 Atorvastatin Calcium (Lipitor) 20 mg QHS PO Last administered on 03/14/17 21: 28; Start 03/11/17 at 21:00; Stop 03/15/17 at 10:59; Status DC Celecoxib (CeleBREX) 200 mg BID PO Last administered on 03/16/17 08:48; Start 03/11/17 at 21:00 Vitamin D (Vitamin D3) 1,000 unit DAILY PO Last administered on 03/16/17 08:55 ; Start 03/12/17 at 09:00 Clopidogrel Bisulfate (Plavix) 75 mg DAILY PO Last administered on 03/16/17 08 :52; Start 03/12/17 at 09:00 Docusate Sodium (Colace) 100 mg DAILY PO Last administered on 03/16/17 08:51; Start 03/12/17 at 09:00 Fentanyl (Duragesic 75mcg/ Hr Patch) 1 patch Q3DAYS TD Last administered on 07:50; Start 03/12/17 at 09:00 Acetaminophen/ Hydrocodone Bitart (Lortab 7.5/325) 1 tab PRN Q4HRS PRN PO MODERATE PAIN Last administered on 03/16/17 08:51; Start 03/11/17 at 19:30 Losartan Potassium (Cozaar) 50 mg DAILY PO Last administered on 03/16/17 08:55 ; Start 03/12/17 at 09:00 Metformin HCl (Glucophage) 500 mg BIDWMEALS PO Last administered on 03/16/17 08:53; Start 03/12/17 at 08:00 Pantoprazole Sodium (Protonix) 40 mg DAILYAC PO Last administered on 03/16/17 08:49; Start 03/12/17 at 07:30 Tamsulosin HCl (Flomax) 0.4 mg BID PO Last administered on 03/16/17 08:53; Start 03/11/17 at 21:00 Tamsulosin HCl (Flomax) 0.4 mg HS PO ; Start 03/11/17 at 21:00; Status UNV Citalopram Hydrobromide (CeleXA) 40 mg DAILY PO Last administered on 03/16/17 08:53; Start 03/12/17 at 09:00 Gabapentin (Neurontin) 300 mg BID PO Last administered on 03/16/17 08:56; Start 03/11/17 at 21:00 Insulin Detemir (Levemir) 22 units QHS SQ Last administered on 03/15/17 21:17 ; Start 03/11/17 at 21:00 Non-Formulary Medication 3.375 gm Q6HRS IV ; Start 03/12/17 at 00:00; Status UNV Insulin Aspart (NovoLOG) TIDWMEALS SQ Last administered on 03/16/17 12:41; Start 03/12/17 at 08:00 Dextrose (Dextrose 50%-Water Syringe) 12.5 gm PRN Q15MIN PRN IV SEE COMMENTS; Start 03/11/17 at 19:30 Piperacillin Sod/ Tazobactam Sod 3.375 gm/Sodium Chloride 50 ml @ 100 mls/hr Q6HRS IV Last administered on 03/15/17 05:39; Start 03/12/17 at 00:00; Stop 03/15/17 at 08:19; Status DC Hydromorphone HCl (Dilaudid) 0.5 mg PRN Q3HRS PRN IVP SEVERE PAIN Last administered on 03/12/17 07:55; Start 03/11/17 at 23:15 Albuterol/ Ipratropium (Duoneb) 3 ml RTQID NEB Last administered on 03/16/17 11:07; Start 03/12/17 at 08:00 Albuterol Sulfate (Ventolin Neb Soln) 2.5 mg PRN Q4HRS PRN NEB SHORTNESS OF BREATH; Start 03/12/17 at 06:00 Nystatin (Nystop) 1 rae BID TP Last administered on 03/16/17 09:00; Start at 09:00 Magnesium Sulfate/ Dextrose 50 ml @ 25 mls/hr 1X ONCE IV Last administered on 03/13/17 18:31; Start 03/13/17 at 18:15; Stop 03/14/17 at 13:16; Status DC Magnesium Sulfate/ Dextrose 50 ml @ 25 mls/hr 1X ONCE IV ; Start 03/14/17 at 13 :00; Stop 03/14/17 at 14:59; Status DC Cefepime HCl 2 gm/ Sodium Chloride 100 ml @ 200 mls/hr Q8HRS IV Last administered on 03/16/17 05:46; Start 03/15/17 at 09:00 Atorvastatin Calcium (Lipitor) 40 mg QHS PO Last administered on 03/15/17 21: 04; Start 03/15/17 at 21:00 Alteplase, Recombinant (Cathflo) 2 mg 1X ONCE INT CAT ; Start 03/16/17 at 11:15 ; Stop 03/16/17 at 11:18; Status DC Active Scripts Active Hydrocodone-Apap 7.5-325 (Hydrocodone Bit/Acetaminophen) 1 Each Tablet 1 Tab PO PRN Q4HRS PRN Reported Tamsulosin Hcl 0.4 Mg Cap.er.24h 1 Cap PO DAILY Zosyn 3.375 Gm Galaxy Bag (Sgckbvnqwddr-Gwze-Lbdcjyae,Iso) 3.375 Gm/50 Ml Froz.piggy 3.375 Gm IV Q6HRS Novolog (Insulin Aspart) 100 Unit/1 Ml Cartridge 15 Unit SQ TIDAC Pantoprazole Sodium 40 Mg Tablet.dr 40 Mg PO DAILY Levemir (Insulin Detemir) 100 Unit/1 Ml Vial 22 Unit SQ HS FENTANYL 75mcg/hr (Fentanyl) 1 Each Patch.td72 1 Patch TP Q3DAYS Colace (Docusate Sodium) 100 Mg Capsule 1 Cap PO DAILY Aspirin 325 Mg Tablet 1 Tab PO DAILY Vitamin D3 (Cholecalciferol (Vitamin D3)) 1,000 Unit Tablet 1 Tab PO DAILY Losartan Potassium 50 Mg Tablet 50 Mg PO DAILY Gabapentin 300 Mg Capsule 300 Mg PO BID Celebrex (Celecoxib) 200 Mg Capsule 200 Mg PO BID 30 Days Citalopram Hbr (Citalopram Hydrobromide) 40 Mg Tablet 40 Mg PO DAILY Lipitor (Atorvastatin Calcium) 20 Mg Tablet 20 Mg PO QHS Flomax (Tamsulosin Hcl) 0.4 Mg Cap.er.24h 0.4 Mg PO HS Metformin Hcl 500 Mg Tablet 500 Mg PO BID Plavix (Clopidogrel Bisulfate) 75 Mg Tablet 75 Mg PO DAILY Vitals/I & O Vital Sign - Last 24 Hours 03/15/17 03/15/17 03/15/17 03/15/17 14:53 15:31 19:57 20:00 Temp 97.7 98.4 97.7 98.4 Pulse 96 91 Resp 18 18 B/P (MAP) 150/91 (110) 143/81 (101) Pulse Ox 96 96 O2 Delivery Room Air Nasal Cannula Room Air Nasal Cannula O2 Flow Rate 2.0 2.0 03/15/17 03/15/17 03/16/17 03/16/17 20:52 23:00 03:14 06:50 Temp 97.6 98.1 97.9 97.6 98.1 97.9 Pulse 87 88 82 Resp 18 20 19 B/P (MAP) 163/73 (103) 155/92 (113) 138/80 (99) Pulse Ox 93 95 92 97 O2 Delivery Nasal Cannula Room Air Nasal Cannula Nasal Cannula O2 Flow Rate 2.0 3.0 3.0 03/16/17 03/16/17 03/16/17 03/16/17 07:14 08:00 08:51 08:55 Pulse 82 Resp 18 B/P (MAP) 138/80 Pulse Ox 99 O2 Delivery Nasal Cannula Nasal Cannula Room Air O2 Flow Rate 2.0 2.0 03/16/17 03/16/17 03/16/17 11:07 11:28 12:41 Temp 97.9 97.9 Pulse 89 Resp 19 B/P (MAP) 128/83 (98) Pulse Ox 99 69 69 O2 Delivery Nasal Cannula Nasal Cannula Nasal Cannula O2 Flow Rate 2.0 3.0 3.0 Intake and Output 03/16/17 03/16/17 03/17/17 15:00 23:00 07:00 Intake Total 300 ml Balance 300 ml YAZ ESCOBEDO MD Mar 16, 2017 12:45
--- NOTE | 2017-03-16 14:09 | PDOC ---
PROGRESS NOTES Subjective Subjective c/c - f/u of anemia Objective Objective Vital Signs Date Time Temp Pulse Resp B/P (MAP) Pulse Ox O2 Delivery O2 Flow Rate FiO2 03/16/17 12:49 Nasal Cannula 3.0 03/16/17 12:41 69 03/16/17 11:28 97.9 89 19 128/83 (98) 97.9 Intake and Output 03/17/17 06:59 Intake Total 300 ml Balance 300 ml Intake Oral 300 ml Physical Exam Heart: Normal S1, Normal S2 General: Alert, Oriented X3 Lungs: Clear to auscultation Neuro: Normal speech Psych/Mental Status: Mental status NL Assessment Assessment IMPRESSION AND PLAN: 1. Anemia. Iron studies are suggestive of anemia due to chronic disease. He has multiple comorbid conditions. He has persistent left heel wound and he has noticed some bleeding from that occasionally. I suspect that the etiology of anemia is due to chronic disease and chronic left heel wound. I will continue to monitor hemoglobin and transfuse as needed. His reticulocyte count is 1.5 and hence I do not suspect hemolysis. His iron studies, B12 and folic acid do not reveal any deficiencies. His differential count is unremarkable and there is no evidence of immature white cells to suggest leukemia. It is very unlikely that he has a primary bone marrow disorder. Bone marrow biopsy would be reasonable to consider when he is able to lie down. The patient has external fixation apparatus in the left leg. This will be difficult to perform at this time and it is not an emergency. He does have a M-spike noted during his prior labs and hence a bone marrow biopsy would be reasonable to be performed when possible. s/p 1 PRBC 03/15/17 Hb now 7.4 Monitor cbc and transfuse as needed. 2. 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 Plan for a bone marrow aspiration and biopsy when he is unable to tolerate. 3. Left heel wound. Appreciate management per Infectious Diseases. I discussed with Dr. Chente Luo. He has been started on cefepime. 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 Comment Review of Relevant I have reviewed the following items lauryn (where applicable) has been applied. Labs Laboratory Tests Test 03/14/17 15:53 03/14/17 20:54 03/15/17 04:30 03/15/17 07:26 Glucose (Fingerstick) 198 mg/dL (70-99) 236 mg/dL (70-99) 191 mg/dL (70-99) White Blood Count 6.1 x10^3/uL (4.0-11.0) Red Blood Count 2.23 x10^6/uL (4.30-5.70) Hemoglobin 6.9 g/dL (13.0-17.5) Hematocrit 20.6 % (39.0-53.0) Mean Corpuscular Volume 92 fL (79-100) Mean Corpuscular Hemoglobin 31 pg (25-35) Mean Corpuscular Hemoglobin Concent 34 g/dL (31-37) Red Cell Distribution Width 17.0 % (11.5-14.5) Platelet Count 147 x10^3/uL (140-400) Neutrophils (%) (Auto) 75 % (31-73) Lymphocytes (%) (Auto) 9 % (24-48) Monocytes (%) (Auto) 9 % (0-9) Eosinophils (%) (Auto) 6 % (0-3) Basophils (%) (Auto) 1 % (0-3) Neutrophils # (Auto) 4.6 x10^3uL (1.8-7.7) Lymphocytes # (Auto) 0.6 x10^3/uL (1.0-4.8) Monocytes # (Auto) 0.6 x10^3/uL (0.0-1.1) Eosinophils # (Auto) 0.3 x10^3/uL (0.0-0.7) Basophils # (Auto) 0.0 x10^3/uL (0.0-0.2) Reticulocyte Count (auto) 1.5 % (0.5-2.5) Sodium Level 141 mmol/L (136-145) Potassium Level 4.4 mmol/L (3.5-5.1) Chloride Level 106 mmol/L (98-107) Carbon Dioxide Level 27 mmol/L (21-32) Anion Gap 8 (6-14) Blood Urea Nitrogen 24 mg/dL (8-26) Creatinine 1.3 mg/dL (0.7-1.3) Estimated GFR (Cockcroft-Gault) 55.8 Glucose Level 219 mg/dL (70-99) Calcium Level 9.5 mg/dL (8.5-10.1) Iron Level 62 ug/dL (65-175) Total Iron Binding Capacity 222 ug/dL (250-450) Iron Saturation 28 % (15-34) Ferritin 794 ng/mL (26-388) Test 03/15/17 10:24 03/15/17 17:19 03/15/17 19:48 03/16/17 05:30 Glucose (Fingerstick) 223 mg/dL (70-99) 243 mg/dL (70-99) 263 mg/dL (70-99) White Blood Count 6.0 x10^3/uL (4.0-11.0) Red Blood Count 2.33 x10^6/uL (4.30-5.70) Hemoglobin 7.4 g/dL (13.0-17.5) Hematocrit 21.2 % (39.0-53.0) Mean Corpuscular Volume 91 fL (79-100) Mean Corpuscular Hemoglobin 32 pg (25-35) Mean Corpuscular Hemoglobin Concent 35 g/dL (31-37) Red Cell Distribution Width 17.2 % (11.5-14.5) Platelet Count 144 x10^3/uL (140-400) Neutrophils (%) (Auto) 74 % (31-73) Lymphocytes (%) (Auto) 10 % (24-48) Monocytes (%) (Auto) 10 % (0-9) Eosinophils (%) (Auto) 5 % (0-3) Basophils (%) (Auto) 1 % (0-3) Neutrophils # (Auto) 4.5 x10^3uL (1.8-7.7) Lymphocytes # (Auto) 0.6 x10^3/uL (1.0-4.8) Monocytes # (Auto) 0.6 x10^3/uL (0.0-1.1) Eosinophils # (Auto) 0.3 x10^3/uL (0.0-0.7) Basophils # (Auto) 0.0 x10^3/uL (0.0-0.2) Sodium Level 141 mmol/L (136-145) Potassium Level 4.3 mmol/L (3.5-5.1) Chloride Level 106 mmol/L (98-107) Carbon Dioxide Level 28 mmol/L (21-32) Anion Gap 7 (6-14) Blood Urea Nitrogen 25 mg/dL (8-26) Creatinine 1.2 mg/dL (0.7-1.3) Estimated GFR (Cockcroft-Gault) 61.1 Glucose Level 220 mg/dL (70-99) Calcium Level 9.3 mg/dL (8.5-10.1) Test 03/16/17 07:30 03/16/17 11:11 Glucose (Fingerstick) 186 mg/dL (70-99) 255 mg/dL (70-99) Laboratory Tests Test 03/15/17 17:19 03/15/17 19:48 03/16/17 05:30 03/16/17 07:30 Glucose (Fingerstick) 243 mg/dL (70-99) 263 mg/dL (70-99) 186 mg/dL (70-99) White Blood Count 6.0 x10^3/uL (4.0-11.0) Red Blood Count 2.33 x10^6/uL (4.30-5.70) Hemoglobin 7.4 g/dL (13.0-17.5) Hematocrit 21.2 % (39.0-53.0) Mean Corpuscular Volume 91 fL (79-100) Mean Corpuscular Hemoglobin 32 pg (25-35) Mean Corpuscular Hemoglobin Concent 35 g/dL (31-37) Red Cell Distribution Width 17.2 % (11.5-14.5) Platelet Count 144 x10^3/uL (140-400) Neutrophils (%) (Auto) 74 % (31-73) Lymphocytes (%) (Auto) 10 % (24-48) Monocytes (%) (Auto) 10 % (0-9) Eosinophils (%) (Auto) 5 % (0-3) Basophils (%) (Auto) 1 % (0-3) Neutrophils # (Auto) 4.5 x10^3uL (1.8-7.7) Lymphocytes # (Auto) 0.6 x10^3/uL (1.0-4.8) Monocytes # (Auto) 0.6 x10^3/uL (0.0-1.1) Eosinophils # (Auto) 0.3 x10^3/uL (0.0-0.7) Basophils # (Auto) 0.0 x10^3/uL (0.0-0.2) Sodium Level 141 mmol/L (136-145) Potassium Level 4.3 mmol/L (3.5-5.1) Chloride Level 106 mmol/L (98-107) Carbon Dioxide Level 28 mmol/L (21-32) Anion Gap 7 (6-14) Blood Urea Nitrogen 25 mg/dL (8-26) Creatinine 1.2 mg/dL (0.7-1.3) Estimated GFR (Cockcroft-Gault) 61.1 Glucose Level 220 mg/dL (70-99) Calcium Level 9.3 mg/dL (8.5-10.1) Test 03/16/17 11:11 Glucose (Fingerstick) 255 mg/dL (70-99) Medications Current Medications Diphenhydramine HCl (Benadryl) 50 mg 1X ONCE IVP Last administered on 17:11; Start 03/11/17 at 15:30; Stop 03/11/17 at 15:32; Status DC Ondansetron HCl (Zofran) 4 mg PRN Q8HRS PRN IV NAUSEA/VOMITING; Start 03/11/17 at 18:30; Stop 03/12/17 at 18:29; Status DC Morphine Sulfate 4 mg PRN Q2HR PRN IV PAIN; Start 03/11/17 at 18:30; Stop 03/12 at 18:29; Status DC Acetaminophen (Tylenol) 650 mg PRN Q4HRS PRN PO FEVER; Start 03/11/17 at 18:30 ; Stop 03/12/17 at 18:29; Status DC Clopidogrel Bisulfate (Plavix) 75 mg 1X ONCE PO Last administered on 18:48; Start 03/11/17 at 18:30; Stop 03/11/17 at 18:31; Status DC Aspirin (Omkar Aspirin) 325 mg DAILY PO Last administered on 03/16/17 08:55; Start 03/12/17 at 09:00 Atorvastatin Calcium (Lipitor) 20 mg QHS PO Last administered on 03/14/17 21: 28; Start 03/11/17 at 21:00; Stop 03/15/17 at 10:59; Status DC Celecoxib (CeleBREX) 200 mg BID PO Last administered on 03/16/17 08:48; Start 03/11/17 at 21:00 Vitamin D (Vitamin D3) 1,000 unit DAILY PO Last administered on 03/16/17 08:55 ; Start 03/12/17 at 09:00 Clopidogrel Bisulfate (Plavix) 75 mg DAILY PO Last administered on 03/16/17 08 :52; Start 03/12/17 at 09:00 Docusate Sodium (Colace) 100 mg DAILY PO Last administered on 03/16/17 08:51; Start 03/12/17 at 09:00 Fentanyl (Duragesic 75mcg/ Hr Patch) 1 patch Q3DAYS TD Last administered on 07:50; Start 03/12/17 at 09:00 Acetaminophen/ Hydrocodone Bitart (Lortab 7.5/325) 1 tab PRN Q4HRS PRN PO MODERATE PAIN Last administered on 03/16/17 08:51; Start 03/11/17 at 19:30 Losartan Potassium (Cozaar) 50 mg DAILY PO Last administered on 03/16/17 08:55 ; Start 03/12/17 at 09:00 Metformin HCl (Glucophage) 500 mg BIDWMEALS PO Last administered on 03/16/17 08:53; Start 03/12/17 at 08:00 Pantoprazole Sodium (Protonix) 40 mg DAILYAC PO Last administered on 03/16/17 08:49; Start 03/12/17 at 07:30 Tamsulosin HCl (Flomax) 0.4 mg BID PO Last administered on 03/16/17 08:53; Start 03/11/17 at 21:00 Tamsulosin HCl (Flomax) 0.4 mg HS PO ; Start 03/11/17 at 21:00; Status UNV Citalopram Hydrobromide (CeleXA) 40 mg DAILY PO Last administered on 03/16/17 08:53; Start 03/12/17 at 09:00 Gabapentin (Neurontin) 300 mg BID PO Last administered on 03/16/17 08:56; Start 03/11/17 at 21:00 Insulin Detemir (Levemir) 22 units QHS SQ Last administered on 03/15/17 21:17 ; Start 03/11/17 at 21:00 Non-Formulary Medication 3.375 gm Q6HRS IV ; Start 03/12/17 at 00:00; Status UNV Insulin Aspart (NovoLOG) TIDWMEALS SQ Last administered on 03/16/17 12:41; Start 03/12/17 at 08:00 Dextrose (Dextrose 50%-Water Syringe) 12.5 gm PRN Q15MIN PRN IV SEE COMMENTS; Start 03/11/17 at 19:30 Piperacillin Sod/ Tazobactam Sod 3.375 gm/Sodium Chloride 50 ml @ 100 mls/hr Q6HRS IV Last administered on 03/15/17 05:39; Start 03/12/17 at 00:00; Stop 03/15/17 at 08:19; Status DC Hydromorphone HCl (Dilaudid) 0.5 mg PRN Q3HRS PRN IVP SEVERE PAIN Last administered on 03/12/17 07:55; Start 03/11/17 at 23:15 Albuterol/ Ipratropium (Duoneb) 3 ml RTQID NEB Last administered on 03/16/17 11:07; Start 03/12/17 at 08:00 Albuterol Sulfate (Ventolin Neb Soln) 2.5 mg PRN Q4HRS PRN NEB SHORTNESS OF BREATH; Start 03/12/17 at 06:00 Nystatin (Nystop) 1 rae BID TP Last administered on 03/16/17 09:00; Start at 09:00 Magnesium Sulfate/ Dextrose 50 ml @ 25 mls/hr 1X ONCE IV Last administered on 03/13/17 18:31; Start 03/13/17 at 18:15; Stop 03/14/17 at 13:16; Status DC Magnesium Sulfate/ Dextrose 50 ml @ 25 mls/hr 1X ONCE IV ; Start 03/14/17 at 13 :00; Stop 03/14/17 at 14:59; Status DC Cefepime HCl 2 gm/ Sodium Chloride 100 ml @ 200 mls/hr Q8HRS IV Last administered on 03/16/17 13:23; Start 03/15/17 at 09:00 Atorvastatin Calcium (Lipitor) 40 mg QHS PO Last administered on 03/15/17 21: 04; Start 03/15/17 at 21:00 Alteplase, Recombinant (Cathflo) 2 mg 1X ONCE INT CAT ; Start 03/16/17 at 11:15 ; Stop 03/16/17 at 11:18; Status DC Active Scripts Active Hydrocodone-Apap 7.5-325 (Hydrocodone Bit/Acetaminophen) 1 Each Tablet 1 Tab PO PRN Q4HRS PRN Reported Tamsulosin Hcl 0.4 Mg Cap.er.24h 1 Cap PO DAILY Zosyn 3.375 Gm Galaxy Bag (Cymzqnoxyhex-Qove-Mkdxwjul,Iso) 3.375 Gm/50 Ml Froz.piggy 3.375 Gm IV Q6HRS Novolog (Insulin Aspart) 100 Unit/1 Ml Cartridge 15 Unit SQ TIDAC Pantoprazole Sodium 40 Mg Tablet.dr 40 Mg PO DAILY Levemir (Insulin Detemir) 100 Unit/1 Ml Vial 22 Unit SQ HS FENTANYL 75mcg/hr (Fentanyl) 1 Each Patch.td72 1 Patch TP Q3DAYS Colace (Docusate Sodium) 100 Mg Capsule 1 Cap PO DAILY Aspirin 325 Mg Tablet 1 Tab PO DAILY Vitamin D3 (Cholecalciferol (Vitamin D3)) 1,000 Unit Tablet 1 Tab PO DAILY Losartan Potassium 50 Mg Tablet 50 Mg PO DAILY Gabapentin 300 Mg Capsule 300 Mg PO BID Celebrex (Celecoxib) 200 Mg Capsule 200 Mg PO BID 30 Days Citalopram Hbr (Citalopram Hydrobromide) 40 Mg Tablet 40 Mg PO DAILY Lipitor (Atorvastatin Calcium) 20 Mg Tablet 20 Mg PO QHS Flomax (Tamsulosin Hcl) 0.4 Mg Cap.er.24h 0.4 Mg PO HS Metformin Hcl 500 Mg Tablet 500 Mg PO BID Plavix (Clopidogrel Bisulfate) 75 Mg Tablet 75 Mg PO DAILY Vitals/I & O Vital Sign - Last 24 Hours 03/15/17 03/15/17 03/15/17 03/15/17 14:53 15:31 19:57 20:00 Temp 97.7 98.4 97.7 98.4 Pulse 96 91 Resp 18 18 B/P (MAP) 150/91 (110) 143/81 (101) Pulse Ox 96 96 O2 Delivery Room Air Nasal Cannula Room Air Nasal Cannula O2 Flow Rate 2.0 2.0 03/15/17 03/15/17 03/16/17 03/16/17 20:52 23:00 03:14 06:50 Temp 97.6 98.1 97.9 97.6 98.1 97.9 Pulse 87 88 82 Resp 18 20 19 B/P (MAP) 163/73 (103) 155/92 (113) 138/80 (99) Pulse Ox 93 95 92 97 O2 Delivery Nasal Cannula Room Air Nasal Cannula Nasal Cannula O2 Flow Rate 2.0 3.0 3.0 03/16/17 03/16/17 03/16/17 03/16/17 07:14 08:00 08:51 08:55 Pulse 82 Resp 18 B/P (MAP) 138/80 Pulse Ox 99 O2 Delivery Nasal Cannula Nasal Cannula Room Air O2 Flow Rate 2.0 2.0 03/16/17 03/16/17 03/16/17 03/16/17 11:07 11:28 12:41 12:49 Temp 97.9 97.9 Pulse 89 Resp 19 B/P (MAP) 128/83 (98) Pulse Ox 99 69 69 O2 Delivery Nasal Cannula Nasal Cannula Nasal Cannula Nasal Cannula O2 Flow Rate 2.0 3.0 3.0 3.0 Intake and Output 03/16/17 03/16/17 03/17/17 14:59 22:59 06:59 Intake Total 300 ml Balance 300 ml KAYCE MCKEON MD Mar 16, 2017 14:09
[2017-03-16 15:14] VITALS: BP 143/83
[2017-03-16 19:50] VITALS: BP 148/85
[2017-03-16] MEDS: ATORVASTATIN CALCIUM 20 MG TABLET PO SCH (21:42)
[2017-03-16] MEDS: INSULIN DETEMIR 300 UNITS/3 ML INSULN.PEN. SQ SCH (21:51)
[2017-03-16 23:05] VITALS: BP 139/78
[2017-03-17] MEDS: HYDROcodone/APAP 7.5/325MG 1 TAB TABLET PO PRN (01:13)
[2017-03-17 03:27] VITALS: BP 153/93
[2017-03-17] MEDS: CEFEPIME HCL 2 GM in IV NORMAL SALINE 100ML 100 ML IV SCH ×3 (05:20→21:43)
[2017-03-17 06:34] LABS: BASO # 0.1 x10^3/uL (0.0-0.2); BASO % 1 % (0-3); CALCIUM 9.8 mg/dL (8.5-10.1); CREATININE 1.2 mg/dL (0.7-1.3); EOS % 5 % (0-3); GFR 61.1; HEMATOCRIT 21.9 % (39.0-53.0); HEMOGLOBIN 7.7 g/dL (13.0-17.5); LYMPH # 0.7 x10^3/uL (1.0-4.8); LYMPH % 11 % (24-48); MEAN CORPUSCULAR HEMOGLOBIN 32 pg (25-35); MEAN CORPUSCULAR HGB CONC 35 g/dL (31-37); MEAN CORPUSCULAR VOLUME 90 fL (79-100); MONO % 8 % (0-9); NEUT % 75 % (31-73); PLATELET COUNT 150 x10^3/uL (140-400); POTASSIUM 4.3 mmol/L (3.5-5.1); RED BLOOD COUNT 2.42 x10^6/uL (4.30-5.70); RED CELL DISTRIBUTION WIDTH 16.7 % (11.5-14.5); WHITE BLOOD COUNT 6.7 x10^3/uL (4.0-11.0)
[2017-03-17 07:00] VITALS: BP 151/83
[2017-03-17] MEDS: IPRATRPIUM/ALBUTEROL 0.5/2.5MG 3 ML NEBU. NEB SCH ×4 (07:55→19:18)
[2017-03-17] MEDS: INSULIN ASPART 300 UNITS/3 ML INSULN.PEN SQ SCH ×3 (08:00→17:41)
[2017-03-17] MEDS: GABAPENTIN 300 MG CAPSULE. PO SCH ×2 (08:53→20:34)
[2017-03-17] MEDS: metFORMIN 500 MG TABLET PO SCH ×2 (08:53→17:38)
[2017-03-17] MEDS: PANTOPRAZOLE 40 MG TABLET.DR. PO SCH (08:53)
[2017-03-17] MEDS: CITALOPRAM 20 MG TABLET. PO SCH (08:54)
[2017-03-17] MEDS: ASPIRIN 325 MG TABLET PO SCH (08:54)
[2017-03-17] MEDS: DOCUSATE SODIUM 100 MG CAPSULE. PO SCH (08:54)
[2017-03-17] MEDS: TAMSULOSIN 0.4 MG CAP.ER.24H. PO SCH ×2 (08:54→20:35)
[2017-03-17] MEDS: CLOPIDOGREL BISULFATE 75 MG TABLET PO SCH (08:54)
[2017-03-17] MEDS: CELECOXIB 200 MG CAPSULE. PO SCH ×2 (08:54→20:35)
[2017-03-17] MEDS: CHOLECALCIFEROL (VITAMIN D3) 1,000 UNIT TABLET PO SCH (08:54)
[2017-03-17] MEDS: LOSARTAN POTASSIUM 50 MG TABLET. PO SCH (08:55)
[2017-03-17] MEDS: NYSTATIN TOPICAL POWDER 15GM BOTTLE. TP SCH ×2 (09:00→20:37)
--- NOTE | 2017-03-17 10:17 | PDOC ---
PROGRESS NOTES Assessment Dysarthria, probably due to metabolic problems or maybe just the narcotics No evidence of stroke or transient ischemic attack Metabolic encephalopathy. Plan Continue Plavix 75 mg daily. Continue ASA daily. Continue Lipitor HS. Treat UTI per floor team. Treat medical diseases. Dr. Ruiz thinks patient should see Vascular Surgery as out-patient. OT/PT. SNU or acute rehab Subjective no more spells Objective Vital Signs Date Time Temp Pulse Resp B/P (MAP) Pulse Ox O2 Delivery O2 Flow Rate FiO2 03/17/17 08:55 85 151/83 03/17/17 07:56 93 Room Air 03/17/17 07:00 97.8 18 97.8 03/17/17 02:13 2.0 Intake and Output 03/18/17 07:00 Intake Total 300 ml Balance 300 ml Intake Oral 300 ml PHYSICAL EXAM Alert. Oriented to time, place and person. PERRL. EOMI. CN: no focal findings. Muscle tone: normal. Muscle strength: 5/5 DTR: 1+ Plantar reflex: flexor Gait: not examined in bed. Sensory exam: no abnormal findings. No cerebellar signs elicited. Review of Relevant I have reviewed the following items lauryn (where applicable) has been applied. Labs Laboratory Tests Test 03/15/17 10:24 03/15/17 17:19 03/15/17 19:48 03/16/17 05:30 Glucose (Fingerstick) 223 mg/dL (70-99) 243 mg/dL (70-99) 263 mg/dL (70-99) White Blood Count 6.0 x10^3/uL (4.0-11.0) Red Blood Count 2.33 x10^6/uL (4.30-5.70) Hemoglobin 7.4 g/dL (13.0-17.5) Hematocrit 21.2 % (39.0-53.0) Mean Corpuscular Volume 91 fL (79-100) Mean Corpuscular Hemoglobin 32 pg (25-35) Mean Corpuscular Hemoglobin Concent 35 g/dL (31-37) Red Cell Distribution Width 17.2 % (11.5-14.5) Platelet Count 144 x10^3/uL (140-400) Neutrophils (%) (Auto) 74 % (31-73) Lymphocytes (%) (Auto) 10 % (24-48) Monocytes (%) (Auto) 10 % (0-9) Eosinophils (%) (Auto) 5 % (0-3) Basophils (%) (Auto) 1 % (0-3) Neutrophils # (Auto) 4.5 x10^3uL (1.8-7.7) Lymphocytes # (Auto) 0.6 x10^3/uL (1.0-4.8) Monocytes # (Auto) 0.6 x10^3/uL (0.0-1.1) Eosinophils # (Auto) 0.3 x10^3/uL (0.0-0.7) Basophils # (Auto) 0.0 x10^3/uL (0.0-0.2) Sodium Level 141 mmol/L (136-145) Potassium Level 4.3 mmol/L (3.5-5.1) Chloride Level 106 mmol/L (98-107) Carbon Dioxide Level 28 mmol/L (21-32) Anion Gap 7 (6-14) Blood Urea Nitrogen 25 mg/dL (8-26) Creatinine 1.2 mg/dL (0.7-1.3) Estimated GFR (Cockcroft-Gault) 61.1 Glucose Level 220 mg/dL (70-99) Calcium Level 9.3 mg/dL (8.5-10.1) Test 03/16/17 07:30 03/16/17 11:11 03/16/17 16:18 03/16/17 20:36 Glucose (Fingerstick) 186 mg/dL (70-99) 255 mg/dL (70-99) 234 mg/dL (70-99) 201 mg/dL (70-99) Test 03/17/17 06:10 03/17/17 07:37 White Blood Count 6.7 x10^3/uL (4.0-11.0) Red Blood Count 2.42 x10^6/uL (4.30-5.70) Hemoglobin 7.7 g/dL (13.0-17.5) Hematocrit 21.9 % (39.0-53.0) Mean Corpuscular Volume 90 fL (79-100) Mean Corpuscular Hemoglobin 32 pg (25-35) Mean Corpuscular Hemoglobin Concent 35 g/dL (31-37) Red Cell Distribution Width 16.7 % (11.5-14.5) Platelet Count 150 x10^3/uL (140-400) Neutrophils (%) (Auto) 75 % (31-73) Lymphocytes (%) (Auto) 11 % (24-48) Monocytes (%) (Auto) 8 % (0-9) Eosinophils (%) (Auto) 5 % (0-3) Basophils (%) (Auto) 1 % (0-3) Neutrophils # (Auto) 5.0 x10^3uL (1.8-7.7) Lymphocytes # (Auto) 0.7 x10^3/uL (1.0-4.8) Monocytes # (Auto) 0.6 x10^3/uL (0.0-1.1) Eosinophils # (Auto) 0.3 x10^3/uL (0.0-0.7) Basophils # (Auto) 0.1 x10^3/uL (0.0-0.2) Sodium Level 141 mmol/L (136-145) Potassium Level 4.3 mmol/L (3.5-5.1) Chloride Level 105 mmol/L (98-107) Carbon Dioxide Level 28 mmol/L (21-32) Anion Gap 8 (6-14) Blood Urea Nitrogen 28 mg/dL (8-26) Creatinine 1.2 mg/dL (0.7-1.3) Estimated GFR (Cockcroft-Gault) 61.1 Glucose Level 170 mg/dL (70-99) Calcium Level 9.8 mg/dL (8.5-10.1) Glucose (Fingerstick) 144 mg/dL (70-99) Laboratory Tests Test 03/16/17 11:11 03/16/17 16:18 03/16/17 20:36 03/17/17 06:10 Glucose (Fingerstick) 255 mg/dL (70-99) 234 mg/dL (70-99) 201 mg/dL (70-99) White Blood Count 6.7 x10^3/uL (4.0-11.0) Red Blood Count 2.42 x10^6/uL (4.30-5.70) Hemoglobin 7.7 g/dL (13.0-17.5) Hematocrit 21.9 % (39.0-53.0) Mean Corpuscular Volume 90 fL (79-100) Mean Corpuscular Hemoglobin 32 pg (25-35) Mean Corpuscular Hemoglobin Concent 35 g/dL (31-37) Red Cell Distribution Width 16.7 % (11.5-14.5) Platelet Count 150 x10^3/uL (140-400) Neutrophils (%) (Auto) 75 % (31-73) Lymphocytes (%) (Auto) 11 % (24-48) Monocytes (%) (Auto) 8 % (0-9) Eosinophils (%) (Auto) 5 % (0-3) Basophils (%) (Auto) 1 % (0-3) Neutrophils # (Auto) 5.0 x10^3uL (1.8-7.7) Lymphocytes # (Auto) 0.7 x10^3/uL (1.0-4.8) Monocytes # (Auto) 0.6 x10^3/uL (0.0-1.1) Eosinophils # (Auto) 0.3 x10^3/uL (0.0-0.7) Basophils # (Auto) 0.1 x10^3/uL (0.0-0.2) Sodium Level 141 mmol/L (136-145) Potassium Level 4.3 mmol/L (3.5-5.1) Chloride Level 105 mmol/L (98-107) Carbon Dioxide Level 28 mmol/L (21-32) Anion Gap 8 (6-14) Blood Urea Nitrogen 28 mg/dL (8-26) Creatinine 1.2 mg/dL (0.7-1.3) Estimated GFR (Cockcroft-Gault) 61.1 Glucose Level 170 mg/dL (70-99) Calcium Level 9.8 mg/dL (8.5-10.1) Test 03/17/17 07:37 Glucose (Fingerstick) 144 mg/dL (70-99) Medications Current Medications Diphenhydramine HCl (Benadryl) 50 mg 1X ONCE IVP Last administered on t 17:11; Start 03/11/17 at 15:30; Stop 03/11/17 at 15:32; Status DC Ondansetron HCl (Zofran) 4 mg PRN Q8HRS PRN IV NAUSEA/VOMITING; Start 03/11/17 at 18:30; Stop 03/12/17 at 18:29; Status DC Morphine Sulfate 4 mg PRN Q2HR PRN IV PAIN; Start 03/11/17 at 18:30; Stop 03/12 at 18:29; Status DC Acetaminophen (Tylenol) 650 mg PRN Q4HRS PRN PO FEVER; Start 03/11/17 at 18:30 ; Stop 03/12/17 at 18:29; Status DC Clopidogrel Bisulfate (Plavix) 75 mg 1X ONCE PO Last administered on 18:48; Start 03/11/17 at 18:30; Stop 03/11/17 at 18:31; Status DC Aspirin (Omkar Aspirin) 325 mg DAILY PO Last administered on 03/17/17 08:54; Start 03/12/17 at 09:00 Atorvastatin Calcium (Lipitor) 20 mg QHS PO Last administered on 03/14/17 21: 28; Start 03/11/17 at 21:00; Stop 03/15/17 at 10:59; Status DC Celecoxib (CeleBREX) 200 mg BID PO Last administered on 03/17/17 08:54; Start 03/11/17 at 21:00 Vitamin D (Vitamin D3) 1,000 unit DAILY PO Last administered on 03/17/17 08:54 ; Start 03/12/17 at 09:00 Clopidogrel Bisulfate (Plavix) 75 mg DAILY PO Last administered on 03/17/17 08 :54; Start 03/12/17 at 09:00 Docusate Sodium (Colace) 100 mg DAILY PO Last administered on 03/17/17 08:54; Start 03/12/17 at 09:00 Fentanyl (Duragesic 75mcg/ Hr Patch) 1 patch Q3DAYS TD Last administered on 07:50; Start 03/12/17 at 09:00 Acetaminophen/ Hydrocodone Bitart (Lortab 7.5/325) 1 tab PRN Q4HRS PRN PO MODERATE PAIN Last administered on 03/17/17 01:13; Start 03/11/17 at 19:30 Losartan Potassium (Cozaar) 50 mg DAILY PO Last administered on 03/17/17 08:55 ; Start 03/12/17 at 09:00 Metformin HCl (Glucophage) 500 mg BIDWMEALS PO Last administered on 03/17/17 08:53; Start 03/12/17 at 08:00 Pantoprazole Sodium (Protonix) 40 mg DAILYAC PO Last administered on 03/17/17 08:53; Start 03/12/17 at 07:30 Tamsulosin HCl (Flomax) 0.4 mg BID PO Last administered on 03/17/17 08:54; Start 03/11/17 at 21:00 Tamsulosin HCl (Flomax) 0.4 mg HS PO ; Start 03/11/17 at 21:00; Status UNV Citalopram Hydrobromide (CeleXA) 40 mg DAILY PO Last administered on 03/17/17 08:54; Start 03/12/17 at 09:00 Gabapentin (Neurontin) 300 mg BID PO Last administered on 03/17/17 08:53; Start 03/11/17 at 21:00 Insulin Detemir (Levemir) 22 units QHS SQ Last administered on 03/16/17 21:51 ; Start 03/11/17 at 21:00 Non-Formulary Medication 3.375 gm Q6HRS IV ; Start 03/12/17 at 00:00; Status UNV Insulin Aspart (NovoLOG) TIDWMEALS SQ Last administered on 03/16/17 17:58; Start 03/12/17 at 08:00 Dextrose (Dextrose 50%-Water Syringe) 12.5 gm PRN Q15MIN PRN IV SEE COMMENTS; Start 03/11/17 at 19:30 Piperacillin Sod/ Tazobactam Sod 3.375 gm/Sodium Chloride 50 ml @ 100 mls/hr Q6HRS IV Last administered on 03/15/17 05:39; Start 03/12/17 at 00:00; Stop 03/15/17 at 08:19; Status DC Hydromorphone HCl (Dilaudid) 0.5 mg PRN Q3HRS PRN IVP SEVERE PAIN Last administered on 03/12/17 07:55; Start 03/11/17 at 23:15 Albuterol/ Ipratropium (Duoneb) 3 ml RTQID NEB Last administered on 03/17/17 07:55; Start 03/12/17 at 08:00 Albuterol Sulfate (Ventolin Neb Soln) 2.5 mg PRN Q4HRS PRN NEB SHORTNESS OF BREATH; Start 03/12/17 at 06:00 Nystatin (Nystop) 1 rae BID TP Last administered on 03/16/17 09:00; Start at 09:00 Magnesium Sulfate/ Dextrose 50 ml @ 25 mls/hr 1X ONCE IV Last administered on 03/13/17 18:31; Start 03/13/17 at 18:15; Stop 03/14/17 at 13:16; Status DC Magnesium Sulfate/ Dextrose 50 ml @ 25 mls/hr 1X ONCE IV ; Start 03/14/17 at 13 :00; Stop 03/14/17 at 14:59; Status DC Cefepime HCl 2 gm/ Sodium Chloride 100 ml @ 200 mls/hr Q8HRS IV Last administered on 03/17/17 05:20; Start 03/15/17 at 09:00 Atorvastatin Calcium (Lipitor) 40 mg QHS PO Last administered on 03/16/17 21: 42; Start 03/15/17 at 21:00 Alteplase, Recombinant (Cathflo) 2 mg 1X ONCE INT CAT Last administered on 14:26; Start 03/16/17 at 11:15; Stop 03/16/17 at 11:18; Status DC Active Scripts Active Hydrocodone-Apap 7.5-325 (Hydrocodone Bit/Acetaminophen) 1 Each Tablet 1 Tab PO PRN Q4HRS PRN Reported Tamsulosin Hcl 0.4 Mg Cap.er.24h 1 Cap PO DAILY Zosyn 3.375 Gm Galaxy Bag (Utagqwbxupnw-Patj-Ppwpvypa,Iso) 3.375 Gm/50 Ml Froz.piggy 3.375 Gm IV Q6HRS Novolog (Insulin Aspart) 100 Unit/1 Ml Cartridge 15 Unit SQ TIDAC Pantoprazole Sodium 40 Mg Tablet.dr 40 Mg PO DAILY Levemir (Insulin Detemir) 100 Unit/1 Ml Vial 22 Unit SQ HS FENTANYL 75mcg/hr (Fentanyl) 1 Each Patch.td72 1 Patch TP Q3DAYS Colace (Docusate Sodium) 100 Mg Capsule 1 Cap PO DAILY Aspirin 325 Mg Tablet 1 Tab PO DAILY Vitamin D3 (Cholecalciferol (Vitamin D3)) 1,000 Unit Tablet 1 Tab PO DAILY Losartan Potassium 50 Mg Tablet 50 Mg PO DAILY Gabapentin 300 Mg Capsule 300 Mg PO BID Celebrex (Celecoxib) 200 Mg Capsule 200 Mg PO BID 30 Days Citalopram Hbr (Citalopram Hydrobromide) 40 Mg Tablet 40 Mg PO DAILY Lipitor (Atorvastatin Calcium) 20 Mg Tablet 20 Mg PO QHS Flomax (Tamsulosin Hcl) 0.4 Mg Cap.er.24h 0.4 Mg PO HS Metformin Hcl 500 Mg Tablet 500 Mg PO BID Plavix (Clopidogrel Bisulfate) 75 Mg Tablet 75 Mg PO DAILY Vitals/I & O Vital Sign - Last 24 Hours 03/16/17 03/16/17 03/16/17 03/16/17 11:07 11:28 12:49 15:04 Temp 97.9 97.9 Pulse 89 Resp 19 B/P (MAP) 128/83 (98) Pulse Ox 99 69 99 O2 Delivery Nasal Cannula Nasal Cannula Nasal Cannula Nasal Cannula O2 Flow Rate 2.0 3.0 3.0 2.0 03/16/17 03/16/17 03/16/17 03/16/17 15:14 19:50 19:58 20:00 Temp 97.9 97.7 97.9 97.7 Pulse 84 88 Resp 19 18 B/P (MAP) 143/83 (103) 148/85 (106) Pulse Ox 95 96 97 O2 Delivery Nasal Cannula Nasal Cannula Nasal Cannula Nasal Cannula O2 Flow Rate 3.0 3.0 2.0 2.0 03/16/17 03/17/17 03/17/17 03/17/17 23:05 01:13 02:13 03:27 Temp 97.9 97.8 97.9 97.8 Pulse 87 79 Resp 16 20 18 18 B/P (MAP) 139/78 (98) 153/93 (113) Pulse Ox 91 98 96 96 O2 Delivery Room Air Room Air Nasal Cannula Room Air O2 Flow Rate 2.0 03/17/17 03/17/17 03/17/17 07:00 07:56 08:55 Temp 97.8 97.8 Pulse 85 85 Resp 18 B/P (MAP) 151/83 (105) 151/83 Pulse Ox 98 93 O2 Delivery Room Air Room Air Intake and Output 03/17/17 03/17/17 03/18/17 15:00 23:00 07:00 Intake Total 300 ml Balance 300 ml YAZ ESCOBEDO MD Mar 17, 2017 10:17
--- NOTE | 2017-03-17 10:22 | PDOC ---
PROGRESS NOTES Subjective Subjective HPI - anemia and left heel wound ROS - reports bleeding from wound Objective Objective Vital Signs Date Time Temp Pulse Resp B/P (MAP) Pulse Ox O2 Delivery O2 Flow Rate FiO2 03/17/17 08:55 85 151/83 03/17/17 07:56 93 Room Air 03/17/17 07:00 97.8 18 97.8 03/17/17 02:13 2.0 Intake and Output 03/18/17 07:00 Intake Total 300 ml Balance 300 ml Intake Oral 300 ml Physical Exam Heart: Normal S1, Normal S2 General: Alert, Oriented X3 Lungs: Clear to auscultation Neuro: Normal speech Assessment Assessment IMPRESSION AND PLAN: 1. Anemia. Iron studies are suggestive of anemia due to chronic disease. He has multiple comorbid conditions. He has persistent left heel wound and he has noticed some bleeding from that occasionally. I suspect that the etiology of anemia is due to chronic disease and chronic left heel wound. I will continue to monitor hemoglobin and transfuse as needed. His reticulocyte count is 1.5 and hence I do not suspect hemolysis. His iron studies, B12 and folic acid do not reveal any deficiencies. His differential count is unremarkable and there is no evidence of immature white cells to suggest leukemia. It is very unlikely that he has a primary bone marrow disorder. Bone marrow biopsy would be reasonable to consider when he is able to lie down. The patient has external fixation apparatus in the left leg. This will be difficult to perform at this time and it is not an emergency. He does have a M-spike noted during his prior labs and hence a bone marrow biopsy would be reasonable to be performed when possible. s/p 1 PRBC 03/15/17 Hb now 7.4 Monitor cbc and transfuse as needed. 2. 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 Plan for a bone marrow aspiration and biopsy when he is unable to tolerate. 3. Left heel wound. Appreciate management per Infectious Diseases. I discussed with Dr. Chente Luo. He has been started on cefepime. 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 Comment Review of Relevant I have reviewed the following items lauryn (where applicable) has been applied. Labs Laboratory Tests Test 03/15/17 10:24 03/15/17 17:19 03/15/17 19:48 03/16/17 05:30 Glucose (Fingerstick) 223 mg/dL (70-99) 243 mg/dL (70-99) 263 mg/dL (70-99) White Blood Count 6.0 x10^3/uL (4.0-11.0) Red Blood Count 2.33 x10^6/uL (4.30-5.70) Hemoglobin 7.4 g/dL (13.0-17.5) Hematocrit 21.2 % (39.0-53.0) Mean Corpuscular Volume 91 fL (79-100) Mean Corpuscular Hemoglobin 32 pg (25-35) Mean Corpuscular Hemoglobin Concent 35 g/dL (31-37) Red Cell Distribution Width 17.2 % (11.5-14.5) Platelet Count 144 x10^3/uL (140-400) Neutrophils (%) (Auto) 74 % (31-73) Lymphocytes (%) (Auto) 10 % (24-48) Monocytes (%) (Auto) 10 % (0-9) Eosinophils (%) (Auto) 5 % (0-3) Basophils (%) (Auto) 1 % (0-3) Neutrophils # (Auto) 4.5 x10^3uL (1.8-7.7) Lymphocytes # (Auto) 0.6 x10^3/uL (1.0-4.8) Monocytes # (Auto) 0.6 x10^3/uL (0.0-1.1) Eosinophils # (Auto) 0.3 x10^3/uL (0.0-0.7) Basophils # (Auto) 0.0 x10^3/uL (0.0-0.2) Sodium Level 141 mmol/L (136-145) Potassium Level 4.3 mmol/L (3.5-5.1) Chloride Level 106 mmol/L (98-107) Carbon Dioxide Level 28 mmol/L (21-32) Anion Gap 7 (6-14) Blood Urea Nitrogen 25 mg/dL (8-26) Creatinine 1.2 mg/dL (0.7-1.3) Estimated GFR (Cockcroft-Gault) 61.1 Glucose Level 220 mg/dL (70-99) Calcium Level 9.3 mg/dL (8.5-10.1) Test 03/16/17 07:30 03/16/17 11:11 03/16/17 16:18 03/16/17 20:36 Glucose (Fingerstick) 186 mg/dL (70-99) 255 mg/dL (70-99) 234 mg/dL (70-99) 201 mg/dL (70-99) Test 03/17/17 06:10 03/17/17 07:37 White Blood Count 6.7 x10^3/uL (4.0-11.0) Red Blood Count 2.42 x10^6/uL (4.30-5.70) Hemoglobin 7.7 g/dL (13.0-17.5) Hematocrit 21.9 % (39.0-53.0) Mean Corpuscular Volume 90 fL (79-100) Mean Corpuscular Hemoglobin 32 pg (25-35) Mean Corpuscular Hemoglobin Concent 35 g/dL (31-37) Red Cell Distribution Width 16.7 % (11.5-14.5) Platelet Count 150 x10^3/uL (140-400) Neutrophils (%) (Auto) 75 % (31-73) Lymphocytes (%) (Auto) 11 % (24-48) Monocytes (%) (Auto) 8 % (0-9) Eosinophils (%) (Auto) 5 % (0-3) Basophils (%) (Auto) 1 % (0-3) Neutrophils # (Auto) 5.0 x10^3uL (1.8-7.7) Lymphocytes # (Auto) 0.7 x10^3/uL (1.0-4.8) Monocytes # (Auto) 0.6 x10^3/uL (0.0-1.1) Eosinophils # (Auto) 0.3 x10^3/uL (0.0-0.7) Basophils # (Auto) 0.1 x10^3/uL (0.0-0.2) Sodium Level 141 mmol/L (136-145) Potassium Level 4.3 mmol/L (3.5-5.1) Chloride Level 105 mmol/L (98-107) Carbon Dioxide Level 28 mmol/L (21-32) Anion Gap 8 (6-14) Blood Urea Nitrogen 28 mg/dL (8-26) Creatinine 1.2 mg/dL (0.7-1.3) Estimated GFR (Cockcroft-Gault) 61.1 Glucose Level 170 mg/dL (70-99) Calcium Level 9.8 mg/dL (8.5-10.1) Glucose (Fingerstick) 144 mg/dL (70-99) Laboratory Tests Test 03/16/17 11:11 03/16/17 16:18 03/16/17 20:36 03/17/17 06:10 Glucose (Fingerstick) 255 mg/dL (70-99) 234 mg/dL (70-99) 201 mg/dL (70-99) White Blood Count 6.7 x10^3/uL (4.0-11.0) Red Blood Count 2.42 x10^6/uL (4.30-5.70) Hemoglobin 7.7 g/dL (13.0-17.5) Hematocrit 21.9 % (39.0-53.0) Mean Corpuscular Volume 90 fL (79-100) Mean Corpuscular Hemoglobin 32 pg (25-35) Mean Corpuscular Hemoglobin Concent 35 g/dL (31-37) Red Cell Distribution Width 16.7 % (11.5-14.5) Platelet Count 150 x10^3/uL (140-400) Neutrophils (%) (Auto) 75 % (31-73) Lymphocytes (%) (Auto) 11 % (24-48) Monocytes (%) (Auto) 8 % (0-9) Eosinophils (%) (Auto) 5 % (0-3) Basophils (%) (Auto) 1 % (0-3) Neutrophils # (Auto) 5.0 x10^3uL (1.8-7.7) Lymphocytes # (Auto) 0.7 x10^3/uL (1.0-4.8) Monocytes # (Auto) 0.6 x10^3/uL (0.0-1.1) Eosinophils # (Auto) 0.3 x10^3/uL (0.0-0.7) Basophils # (Auto) 0.1 x10^3/uL (0.0-0.2) Sodium Level 141 mmol/L (136-145) Potassium Level 4.3 mmol/L (3.5-5.1) Chloride Level 105 mmol/L (98-107) Carbon Dioxide Level 28 mmol/L (21-32) Anion Gap 8 (6-14) Blood Urea Nitrogen 28 mg/dL (8-26) Creatinine 1.2 mg/dL (0.7-1.3) Estimated GFR (Cockcroft-Gault) 61.1 Glucose Level 170 mg/dL (70-99) Calcium Level 9.8 mg/dL (8.5-10.1) Test 03/17/17 07:37 Glucose (Fingerstick) 144 mg/dL (70-99) Medications Current Medications Diphenhydramine HCl (Benadryl) 50 mg 1X ONCE IVP Last administered on 17:11; Start 03/11/17 at 15:30; Stop 03/11/17 at 15:32; Status DC Ondansetron HCl (Zofran) 4 mg PRN Q8HRS PRN IV NAUSEA/VOMITING; Start 03/11/17 at 18:30; Stop 03/12/17 at 18:29; Status DC Morphine Sulfate 4 mg PRN Q2HR PRN IV PAIN; Start 03/11/17 at 18:30; Stop 03/12 at 18:29; Status DC Acetaminophen (Tylenol) 650 mg PRN Q4HRS PRN PO FEVER; Start 03/11/17 at 18:30 ; Stop 03/12/17 at 18:29; Status DC Clopidogrel Bisulfate (Plavix) 75 mg 1X ONCE PO Last administered on 18:48; Start 03/11/17 at 18:30; Stop 03/11/17 at 18:31; Status DC Aspirin (Omkar Aspirin) 325 mg DAILY PO Last administered on 03/17/17 08:54; Start 03/12/17 at 09:00 Atorvastatin Calcium (Lipitor) 20 mg QHS PO Last administered on 03/14/17 21: 28; Start 03/11/17 at 21:00; Stop 03/15/17 at 10:59; Status DC Celecoxib (CeleBREX) 200 mg BID PO Last administered on 03/17/17 08:54; Start 03/11/17 at 21:00 Vitamin D (Vitamin D3) 1,000 unit DAILY PO Last administered on 03/17/17 08:54 ; Start 03/12/17 at 09:00 Clopidogrel Bisulfate (Plavix) 75 mg DAILY PO Last administered on 03/17/17 08 :54; Start 03/12/17 at 09:00 Docusate Sodium (Colace) 100 mg DAILY PO Last administered on 03/17/17 08:54; Start 03/12/17 at 09:00 Fentanyl (Duragesic 75mcg/ Hr Patch) 1 patch Q3DAYS TD Last administered on 07:50; Start 03/12/17 at 09:00 Acetaminophen/ Hydrocodone Bitart (Lortab 7.5/325) 1 tab PRN Q4HRS PRN PO MODERATE PAIN Last administered on 03/17/17 01:13; Start 03/11/17 at 19:30 Losartan Potassium (Cozaar) 50 mg DAILY PO Last administered on 03/17/17 08:55 ; Start 03/12/17 at 09:00 Metformin HCl (Glucophage) 500 mg BIDWMEALS PO Last administered on 03/17/17 08:53; Start 03/12/17 at 08:00 Pantoprazole Sodium (Protonix) 40 mg DAILYAC PO Last administered on 03/17/17 08:53; Start 03/12/17 at 07:30 Tamsulosin HCl (Flomax) 0.4 mg BID PO Last administered on 03/17/17 08:54; Start 03/11/17 at 21:00 Tamsulosin HCl (Flomax) 0.4 mg HS PO ; Start 03/11/17 at 21:00; Status UNV Citalopram Hydrobromide (CeleXA) 40 mg DAILY PO Last administered on 03/17/17 08:54; Start 03/12/17 at 09:00 Gabapentin (Neurontin) 300 mg BID PO Last administered on 03/17/17 08:53; Start 03/11/17 at 21:00 Insulin Detemir (Levemir) 22 units QHS SQ Last administered on 03/16/17 21:51 ; Start 03/11/17 at 21:00 Non-Formulary Medication 3.375 gm Q6HRS IV ; Start 03/12/17 at 00:00; Status UNV Insulin Aspart (NovoLOG) TIDWMEALS SQ Last administered on 03/16/17 17:58; Start 03/12/17 at 08:00 Dextrose (Dextrose 50%-Water Syringe) 12.5 gm PRN Q15MIN PRN IV SEE COMMENTS; Start 03/11/17 at 19:30 Piperacillin Sod/ Tazobactam Sod 3.375 gm/Sodium Chloride 50 ml @ 100 mls/hr Q6HRS IV Last administered on 03/15/17 05:39; Start 03/12/17 at 00:00; Stop 03/15/17 at 08:19; Status DC Hydromorphone HCl (Dilaudid) 0.5 mg PRN Q3HRS PRN IVP SEVERE PAIN Last administered on 03/12/17 07:55; Start 03/11/17 at 23:15 Albuterol/ Ipratropium (Duoneb) 3 ml RTQID NEB Last administered on 03/17/17 07:55; Start 03/12/17 at 08:00 Albuterol Sulfate (Ventolin Neb Soln) 2.5 mg PRN Q4HRS PRN NEB SHORTNESS OF BREATH; Start 03/12/17 at 06:00 Nystatin (Nystop) 1 rae BID TP Last administered on 03/17/17 09:00; Start at 09:00 Magnesium Sulfate/ Dextrose 50 ml @ 25 mls/hr 1X ONCE IV Last administered on 03/13/17 18:31; Start 03/13/17 at 18:15; Stop 03/14/17 at 13:16; Status DC Magnesium Sulfate/ Dextrose 50 ml @ 25 mls/hr 1X ONCE IV ; Start 03/14/17 at 13 :00; Stop 03/14/17 at 14:59; Status DC Cefepime HCl 2 gm/ Sodium Chloride 100 ml @ 200 mls/hr Q8HRS IV Last administered on 03/17/17 05:20; Start 03/15/17 at 09:00 Atorvastatin Calcium (Lipitor) 40 mg QHS PO Last administered on 03/16/17 21: 42; Start 03/15/17 at 21:00 Alteplase, Recombinant (Cathflo) 2 mg 1X ONCE INT CAT Last administered on 14:26; Start 03/16/17 at 11:15; Stop 03/16/17 at 11:18; Status DC Active Scripts Active Hydrocodone-Apap 7.5-325 (Hydrocodone Bit/Acetaminophen) 1 Each Tablet 1 Tab PO PRN Q4HRS PRN Reported Tamsulosin Hcl 0.4 Mg Cap.er.24h 1 Cap PO DAILY Zosyn 3.375 Gm Galaxy Bag (Blxhhkyxexye-Kyqp-Htqalwac,Iso) 3.375 Gm/50 Ml Froz.piggy 3.375 Gm IV Q6HRS Novolog (Insulin Aspart) 100 Unit/1 Ml Cartridge 15 Unit SQ TIDAC Pantoprazole Sodium 40 Mg Tablet.dr 40 Mg PO DAILY Levemir (Insulin Detemir) 100 Unit/1 Ml Vial 22 Unit SQ HS FENTANYL 75mcg/hr (Fentanyl) 1 Each Patch.td72 1 Patch TP Q3DAYS Colace (Docusate Sodium) 100 Mg Capsule 1 Cap PO DAILY Aspirin 325 Mg Tablet 1 Tab PO DAILY Vitamin D3 (Cholecalciferol (Vitamin D3)) 1,000 Unit Tablet 1 Tab PO DAILY Losartan Potassium 50 Mg Tablet 50 Mg PO DAILY Gabapentin 300 Mg Capsule 300 Mg PO BID Celebrex (Celecoxib) 200 Mg Capsule 200 Mg PO BID 30 Days Citalopram Hbr (Citalopram Hydrobromide) 40 Mg Tablet 40 Mg PO DAILY Lipitor (Atorvastatin Calcium) 20 Mg Tablet 20 Mg PO QHS Flomax (Tamsulosin Hcl) 0.4 Mg Cap.er.24h 0.4 Mg PO HS Metformin Hcl 500 Mg Tablet 500 Mg PO BID Plavix (Clopidogrel Bisulfate) 75 Mg Tablet 75 Mg PO DAILY Vitals/I & O Vital Sign - Last 24 Hours 03/16/17 03/16/17 03/16/17 03/16/17 11:07 11:28 12:49 15:04 Temp 97.9 97.9 Pulse 89 Resp 19 B/P (MAP) 128/83 (98) Pulse Ox 99 69 99 O2 Delivery Nasal Cannula Nasal Cannula Nasal Cannula Nasal Cannula O2 Flow Rate 2.0 3.0 3.0 2.0 03/16/17 03/16/17 03/16/17 03/16/17 15:14 19:50 19:58 20:00 Temp 97.9 97.7 97.9 97.7 Pulse 84 88 Resp 19 18 B/P (MAP) 143/83 (103) 148/85 (106) Pulse Ox 95 96 97 O2 Delivery Nasal Cannula Nasal Cannula Nasal Cannula Nasal Cannula O2 Flow Rate 3.0 3.0 2.0 2.0 03/16/17 03/17/17 03/17/17 03/17/17 23:05 01:13 02:13 03:27 Temp 97.9 97.8 97.9 97.8 Pulse 87 79 Resp 16 20 18 18 B/P (MAP) 139/78 (98) 153/93 (113) Pulse Ox 91 98 96 96 O2 Delivery Room Air Room Air Nasal Cannula Room Air O2 Flow Rate 2.0 03/17/17 03/17/17 03/17/17 07:00 07:56 08:55 Temp 97.8 97.8 Pulse 85 85 Resp 18 B/P (MAP) 151/83 (105) 151/83 Pulse Ox 98 93 O2 Delivery Room Air Room Air Intake and Output 03/17/17 03/17/17 03/18/17 15:00 23:00 07:00 Intake Total 300 ml Balance 300 ml KAYCE MCKEON MD Mar 17, 2017 10:22
[2017-03-17 10:50] LABS: % EOS 6 % (0-5); PLT ESTIMATE ADEQUATE (ADEQUATE)
[2017-03-17 11:00] VITALS: BP 153/80
--- NOTE | 2017-03-17 11:00 | PDOC ---
PROGRESS NOTES Chief Complaint Chief Complaint Fall Aphasia PMH: HTN Hyperlipidemia Peripheral Neuropathy CVA GERD Depression CRI History of Present Illness History of Present Illness Pt was laying in bed and conversant. He has no new complaints and is in NAD. Discussed plan of care including possible D/C pending eval. External fixator and wound vac noted on LLE. Heme Onc - anemia of chronic disease with BM biopsy when able to tolerate Neuro - cont. plavix, asa, and lipitor -consult vascular surgery as outpatient ID - cont. cefepime and nystatin -would like weekly CBC, Sed rate, and creatinine sent to hime -see him in office in 2 weeks Vitals Vitals Vital Signs Date Time Temp Pulse Resp B/P (MAP) Pulse Ox O2 Delivery O2 Flow Rate FiO2 03/17/17 08:55 85 151/83 03/17/17 07:56 93 Room Air 03/17/17 07:00 97.8 18 97.8 03/17/17 02:13 2.0 Physical Exam General: Alert, Oriented X3, Cooperative Heart: Regular rate, Normal S1, Normal S2 Lungs: Clear Abdomen: Normal bowel sounds, Soft, No tenderness, Other (morbidly obese) Extremities: No clubbing, No cyanosis, Other (left lower extremity external fixator in place) Skin: No rashes, Other (LLE wound with wound vac in place and draining ) Labs LABS Laboratory Tests Test 03/16/17 11:11 03/16/17 16:18 03/16/17 20:36 03/17/17 06:10 Glucose (Fingerstick) 255 mg/dL (70-99) 234 mg/dL (70-99) 201 mg/dL (70-99) White Blood Count 6.7 x10^3/uL (4.0-11.0) Red Blood Count 2.42 x10^6/uL (4.30-5.70) Hemoglobin 7.7 g/dL (13.0-17.5) Hematocrit 21.9 % (39.0-53.0) Mean Corpuscular Volume 90 fL (79-100) Mean Corpuscular Hemoglobin 32 pg (25-35) Mean Corpuscular Hemoglobin Concent 35 g/dL (31-37) Red Cell Distribution Width 16.7 % (11.5-14.5) Platelet Count 150 x10^3/uL (140-400) Neutrophils (%) (Auto) 75 % (31-73) Lymphocytes (%) (Auto) 11 % (24-48) Monocytes (%) (Auto) 8 % (0-9) Eosinophils (%) (Auto) 5 % (0-3) Basophils (%) (Auto) 1 % (0-3) Neutrophils # (Auto) 5.0 x10^3uL (1.8-7.7) Lymphocytes # (Auto) 0.7 x10^3/uL (1.0-4.8) Monocytes # (Auto) 0.6 x10^3/uL (0.0-1.1) Eosinophils # (Auto) 0.3 x10^3/uL (0.0-0.7) Basophils # (Auto) 0.1 x10^3/uL (0.0-0.2) Segmented Neutrophils % 69 % (35-66) Band Neutrophils % 5 % (0-9) Lymphocytes % 12 % (24-48) Monocytes % 8 % (0-10) Eosinophils % 6 % (0-5) Platelet Estimate Adequate (ADEQUATE) Sodium Level 141 mmol/L (136-145) Potassium Level 4.3 mmol/L (3.5-5.1) Chloride Level 105 mmol/L (98-107) Carbon Dioxide Level 28 mmol/L (21-32) Anion Gap 8 (6-14) Blood Urea Nitrogen 28 mg/dL (8-26) Creatinine 1.2 mg/dL (0.7-1.3) Estimated GFR (Cockcroft-Gault) 61.1 Glucose Level 170 mg/dL (70-99) Calcium Level 9.8 mg/dL (8.5-10.1) Test 03/17/17 07:37 Glucose (Fingerstick) 144 mg/dL (70-99) Review of Systems Review of Systems Pt fatigued Pt complains of hunger Pt complains of stiffness Assessment and Plan Assessmemt and Plan Fall Aphasia PMH: HTN Hyperlipidemia Peripheral Neuropathy CVA GERD Depression CRI Plan: D/C disposition pending Cont. fluids cont. abx recheck labs home meds appreciate subspecialist input will like be D/C with wound vac Problems: Comment Review of Relevant I have reviewed the following items lauryn (where applicable) has been applied. Labs Laboratory Tests Test 03/15/17 17:19 03/15/17 19:48 03/16/17 05:30 03/16/17 07:30 Glucose (Fingerstick) 243 mg/dL (70-99) 263 mg/dL (70-99) 186 mg/dL (70-99) White Blood Count 6.0 x10^3/uL (4.0-11.0) Red Blood Count 2.33 x10^6/uL (4.30-5.70) Hemoglobin 7.4 g/dL (13.0-17.5) Hematocrit 21.2 % (39.0-53.0) Mean Corpuscular Volume 91 fL (79-100) Mean Corpuscular Hemoglobin 32 pg (25-35) Mean Corpuscular Hemoglobin Concent 35 g/dL (31-37) Red Cell Distribution Width 17.2 % (11.5-14.5) Platelet Count 144 x10^3/uL (140-400) Neutrophils (%) (Auto) 74 % (31-73) Lymphocytes (%) (Auto) 10 % (24-48) Monocytes (%) (Auto) 10 % (0-9) Eosinophils (%) (Auto) 5 % (0-3) Basophils (%) (Auto) 1 % (0-3) Neutrophils # (Auto) 4.5 x10^3uL (1.8-7.7) Lymphocytes # (Auto) 0.6 x10^3/uL (1.0-4.8) Monocytes # (Auto) 0.6 x10^3/uL (0.0-1.1) Eosinophils # (Auto) 0.3 x10^3/uL (0.0-0.7) Basophils # (Auto) 0.0 x10^3/uL (0.0-0.2) Sodium Level 141 mmol/L (136-145) Potassium Level 4.3 mmol/L (3.5-5.1) Chloride Level 106 mmol/L (98-107) Carbon Dioxide Level 28 mmol/L (21-32) Anion Gap 7 (6-14) Blood Urea Nitrogen 25 mg/dL (8-26) Creatinine 1.2 mg/dL (0.7-1.3) Estimated GFR (Cockcroft-Gault) 61.1 Glucose Level 220 mg/dL (70-99) Calcium Level 9.3 mg/dL (8.5-10.1) Test 03/16/17 11:11 03/16/17 16:18 03/16/17 20:36 03/17/17 06:10 Glucose (Fingerstick) 255 mg/dL (70-99) 234 mg/dL (70-99) 201 mg/dL (70-99) White Blood Count 6.7 x10^3/uL (4.0-11.0) Red Blood Count 2.42 x10^6/uL (4.30-5.70) Hemoglobin 7.7 g/dL (13.0-17.5) Hematocrit 21.9 % (39.0-53.0) Mean Corpuscular Volume 90 fL (79-100) Mean Corpuscular Hemoglobin 32 pg (25-35) Mean Corpuscular Hemoglobin Concent 35 g/dL (31-37) Red Cell Distribution Width 16.7 % (11.5-14.5) Platelet Count 150 x10^3/uL (140-400) Neutrophils (%) (Auto) 75 % (31-73) Lymphocytes (%) (Auto) 11 % (24-48) Monocytes (%) (Auto) 8 % (0-9) Eosinophils (%) (Auto) 5 % (0-3) Basophils (%) (Auto) 1 % (0-3) Neutrophils # (Auto) 5.0 x10^3uL (1.8-7.7) Lymphocytes # (Auto) 0.7 x10^3/uL (1.0-4.8) Monocytes # (Auto) 0.6 x10^3/uL (0.0-1.1) Eosinophils # (Auto) 0.3 x10^3/uL (0.0-0.7) Basophils # (Auto) 0.1 x10^3/uL (0.0-0.2) Segmented Neutrophils % 69 % (35-66) Band Neutrophils % 5 % (0-9) Lymphocytes % 12 % (24-48) Monocytes % 8 % (0-10) Eosinophils % 6 % (0-5) Platelet Estimate Adequate (ADEQUATE) Sodium Level 141 mmol/L (136-145) Potassium Level 4.3 mmol/L (3.5-5.1) Chloride Level 105 mmol/L (98-107) Carbon Dioxide Level 28 mmol/L (21-32) Anion Gap 8 (6-14) Blood Urea Nitrogen 28 mg/dL (8-26) Creatinine 1.2 mg/dL (0.7-1.3) Estimated GFR (Cockcroft-Gault) 61.1 Glucose Level 170 mg/dL (70-99) Calcium Level 9.8 mg/dL (8.5-10.1) Test 03/17/17 07:37 Glucose (Fingerstick) 144 mg/dL (70-99) Laboratory Tests Test 03/16/17 11:11 03/16/17 16:18 03/16/17 20:36 03/17/17 06:10 Glucose (Fingerstick) 255 mg/dL (70-99) 234 mg/dL (70-99) 201 mg/dL (70-99) White Blood Count 6.7 x10^3/uL (4.0-11.0) Red Blood Count 2.42 x10^6/uL (4.30-5.70) Hemoglobin 7.7 g/dL (13.0-17.5) Hematocrit 21.9 % (39.0-53.0) Mean Corpuscular Volume 90 fL (79-100) Mean Corpuscular Hemoglobin 32 pg (25-35) Mean Corpuscular Hemoglobin Concent 35 g/dL (31-37) Red Cell Distribution Width 16.7 % (11.5-14.5) Platelet Count 150 x10^3/uL (140-400) Neutrophils (%) (Auto) 75 % (31-73) Lymphocytes (%) (Auto) 11 % (24-48) Monocytes (%) (Auto) 8 % (0-9) Eosinophils (%) (Auto) 5 % (0-3) Basophils (%) (Auto) 1 % (0-3) Neutrophils # (Auto) 5.0 x10^3uL (1.8-7.7) Lymphocytes # (Auto) 0.7 x10^3/uL (1.0-4.8) Monocytes # (Auto) 0.6 x10^3/uL (0.0-1.1) Eosinophils # (Auto) 0.3 x10^3/uL (0.0-0.7) Basophils # (Auto) 0.1 x10^3/uL (0.0-0.2) Segmented Neutrophils % 69 % (35-66) Band Neutrophils % 5 % (0-9) Lymphocytes % 12 % (24-48) Monocytes % 8 % (0-10) Eosinophils % 6 % (0-5) Platelet Estimate Adequate (ADEQUATE) Sodium Level 141 mmol/L (136-145) Potassium Level 4.3 mmol/L (3.5-5.1) Chloride Level 105 mmol/L (98-107) Carbon Dioxide Level 28 mmol/L (21-32) Anion Gap 8 (6-14) Blood Urea Nitrogen 28 mg/dL (8-26) Creatinine 1.2 mg/dL (0.7-1.3) Estimated GFR (Cockcroft-Gault) 61.1 Glucose Level 170 mg/dL (70-99) Calcium Level 9.8 mg/dL (8.5-10.1) Test 03/17/17 07:37 Glucose (Fingerstick) 144 mg/dL (70-99) Medications Current Medications Diphenhydramine HCl (Benadryl) 50 mg 1X ONCE IVP Last administered on 17:11; Start 03/11/17 at 15:30; Stop 03/11/17 at 15:32; Status DC Ondansetron HCl (Zofran) 4 mg PRN Q8HRS PRN IV NAUSEA/VOMITING; Start 03/11/17 at 18:30; Stop 03/12/17 at 18:29; Status DC Morphine Sulfate 4 mg PRN Q2HR PRN IV PAIN; Start 03/11/17 at 18:30; Stop 03/12 at 18:29; Status DC Acetaminophen (Tylenol) 650 mg PRN Q4HRS PRN PO FEVER; Start 03/11/17 at 18:30 ; Stop 03/12/17 at 18:29; Status DC Clopidogrel Bisulfate (Plavix) 75 mg 1X ONCE PO Last administered on 18:48; Start 03/11/17 at 18:30; Stop 03/11/17 at 18:31; Status DC Aspirin (Omkar Aspirin) 325 mg DAILY PO Last administered on 03/17/17 08:54; Start 03/12/17 at 09:00 Atorvastatin Calcium (Lipitor) 20 mg QHS PO Last administered on 03/14/17 21: 28; Start 03/11/17 at 21:00; Stop 03/15/17 at 10:59; Status DC Celecoxib (CeleBREX) 200 mg BID PO Last administered on 03/17/17 08:54; Start 03/11/17 at 21:00 Vitamin D (Vitamin D3) 1,000 unit DAILY PO Last administered on 03/17/17 08:54 ; Start 03/12/17 at 09:00 Clopidogrel Bisulfate (Plavix) 75 mg DAILY PO Last administered on 03/17/17 08 :54; Start 03/12/17 at 09:00 Docusate Sodium (Colace) 100 mg DAILY PO Last administered on 03/17/17 08:54; Start 03/12/17 at 09:00 Fentanyl (Duragesic 75mcg/ Hr Patch) 1 patch Q3DAYS TD Last administered on 07:50; Start 03/12/17 at 09:00 Acetaminophen/ Hydrocodone Bitart (Lortab 7.5/325) 1 tab PRN Q4HRS PRN PO MODERATE PAIN Last administered on 03/17/17 01:13; Start 03/11/17 at 19:30 Losartan Potassium (Cozaar) 50 mg DAILY PO Last administered on 03/17/17 08:55 ; Start 03/12/17 at 09:00 Metformin HCl (Glucophage) 500 mg BIDWMEALS PO Last administered on 03/17/17 08:53; Start 03/12/17 at 08:00 Pantoprazole Sodium (Protonix) 40 mg DAILYAC PO Last administered on 03/17/17 08:53; Start 03/12/17 at 07:30 Tamsulosin HCl (Flomax) 0.4 mg BID PO Last administered on 03/17/17 08:54; Start 03/11/17 at 21:00 Tamsulosin HCl (Flomax) 0.4 mg HS PO ; Start 03/11/17 at 21:00; Status UNV Citalopram Hydrobromide (CeleXA) 40 mg DAILY PO Last administered on 03/17/17 08:54; Start 03/12/17 at 09:00 Gabapentin (Neurontin) 300 mg BID PO Last administered on 03/17/17 08:53; Start 03/11/17 at 21:00 Insulin Detemir (Levemir) 22 units QHS SQ Last administered on 03/16/17 21:51 ; Start 03/11/17 at 21:00 Non-Formulary Medication 3.375 gm Q6HRS IV ; Start 03/12/17 at 00:00; Status UNV Insulin Aspart (NovoLOG) TIDWMEALS SQ Last administered on 03/16/17 17:58; Start 03/12/17 at 08:00 Dextrose (Dextrose 50%-Water Syringe) 12.5 gm PRN Q15MIN PRN IV SEE COMMENTS; Start 03/11/17 at 19:30 Piperacillin Sod/ Tazobactam Sod 3.375 gm/Sodium Chloride 50 ml @ 100 mls/hr Q6HRS IV Last administered on 03/15/17 05:39; Start 03/12/17 at 00:00; Stop 03/15/17 at 08:19; Status DC Hydromorphone HCl (Dilaudid) 0.5 mg PRN Q3HRS PRN IVP SEVERE PAIN Last administered on 03/12/17 07:55; Start 03/11/17 at 23:15 Albuterol/ Ipratropium (Duoneb) 3 ml RTQID NEB Last administered on 03/17/17 07:55; Start 03/12/17 at 08:00 Albuterol Sulfate (Ventolin Neb Soln) 2.5 mg PRN Q4HRS PRN NEB SHORTNESS OF BREATH; Start 03/12/17 at 06:00 Nystatin (Nystop) 1 rae BID TP Last administered on 03/17/17 09:00; Start at 09:00 Magnesium Sulfate/ Dextrose 50 ml @ 25 mls/hr 1X ONCE IV Last administered on 03/13/17 18:31; Start 03/13/17 at 18:15; Stop 03/14/17 at 13:16; Status DC Magnesium Sulfate/ Dextrose 50 ml @ 25 mls/hr 1X ONCE IV ; Start 03/14/17 at 13 :00; Stop 03/14/17 at 14:59; Status DC Cefepime HCl 2 gm/ Sodium Chloride 100 ml @ 200 mls/hr Q8HRS IV Last administered on 03/17/17 05:20; Start 03/15/17 at 09:00 Atorvastatin Calcium (Lipitor) 40 mg QHS PO Last administered on 03/16/17 21: 42; Start 03/15/17 at 21:00 Alteplase, Recombinant (Cathflo) 2 mg 1X ONCE INT CAT Last administered on 14:26; Start 03/16/17 at 11:15; Stop 03/16/17 at 11:18; Status DC Active Scripts Active Hydrocodone-Apap 7.5-325 (Hydrocodone Bit/Acetaminophen) 1 Each Tablet 1 Tab PO PRN Q4HRS PRN Reported Tamsulosin Hcl 0.4 Mg Cap.er.24h 1 Cap PO DAILY Zosyn 3.375 Gm Galaxy Bag (Ostqnvllhdqh-Ncts-Atoopumf,Iso) 3.375 Gm/50 Ml Froz.piggy 3.375 Gm IV Q6HRS Novolog (Insulin Aspart) 100 Unit/1 Ml Cartridge 15 Unit SQ TIDAC Pantoprazole Sodium 40 Mg Tablet.dr 40 Mg PO DAILY Levemir (Insulin Detemir) 100 Unit/1 Ml Vial 22 Unit SQ HS FENTANYL 75mcg/hr (Fentanyl) 1 Each Patch.td72 1 Patch TP Q3DAYS Colace (Docusate Sodium) 100 Mg Capsule 1 Cap PO DAILY Aspirin 325 Mg Tablet 1 Tab PO DAILY Vitamin D3 (Cholecalciferol (Vitamin D3)) 1,000 Unit Tablet 1 Tab PO DAILY Losartan Potassium 50 Mg Tablet 50 Mg PO DAILY Gabapentin 300 Mg Capsule 300 Mg PO BID Celebrex (Celecoxib) 200 Mg Capsule 200 Mg PO BID 30 Days Citalopram Hbr (Citalopram Hydrobromide) 40 Mg Tablet 40 Mg PO DAILY Lipitor (Atorvastatin Calcium) 20 Mg Tablet 20 Mg PO QHS Flomax (Tamsulosin Hcl) 0.4 Mg Cap.er.24h 0.4 Mg PO HS Metformin Hcl 500 Mg Tablet 500 Mg PO BID Plavix (Clopidogrel Bisulfate) 75 Mg Tablet 75 Mg PO DAILY Vitals/I & O Vital Sign - Last 24 Hours 03/16/17 03/16/17 03/16/17 03/16/17 11:07 11:28 12:49 15:04 Temp 97.9 97.9 Pulse 89 Resp 19 B/P (MAP) 128/83 (98) Pulse Ox 99 69 99 O2 Delivery Nasal Cannula Nasal Cannula Nasal Cannula Nasal Cannula O2 Flow Rate 2.0 3.0 3.0 2.0 03/16/17 03/16/17 03/16/17 03/16/17 15:14 19:50 19:58 20:00 Temp 97.9 97.7 97.9 97.7 Pulse 84 88 Resp 19 18 B/P (MAP) 143/83 (103) 148/85 (106) Pulse Ox 95 96 97 O2 Delivery Nasal Cannula Nasal Cannula Nasal Cannula Nasal Cannula O2 Flow Rate 3.0 3.0 2.0 2.0 03/16/17 03/17/17 03/17/17 03/17/17 23:05 01:13 02:13 03:27 Temp 97.9 97.8 97.9 97.8 Pulse 87 79 Resp 16 20 18 18 B/P (MAP) 139/78 (98) 153/93 (113) Pulse Ox 91 98 96 96 O2 Delivery Room Air Room Air Nasal Cannula Room Air O2 Flow Rate 2.0 03/17/17 03/17/17 03/17/17 07:00 07:56 08:55 Temp 97.8 97.8 Pulse 85 85 Resp 18 B/P (MAP) 151/83 (105) 151/83 Pulse Ox 98 93 O2 Delivery Room Air Room Air Intake and Output 03/17/17 03/17/17 03/18/17 15:00 23:00 07:00 Intake Total 300 ml Balance 300 ml CASTDIANENIAL K III DO Mar 17, 2017 11:00
[2017-03-17 14:54] VITALS: BP 154/79
[2017-03-17 19:42] VITALS: BP 147/77
[2017-03-17] MEDS: ATORVASTATIN CALCIUM 20 MG TABLET PO SCH (20:34)
[2017-03-17] MEDS: ASCORBIC ACID 500 MG TABLET PO SCH (20:35)
[2017-03-17] MEDS: INSULIN DETEMIR 300 UNITS/3 ML INSULN.PEN. SQ SCH (21:50)
[2017-03-17 23:08] VITALS: BP 150/84
[2017-03-18] MEDS: ALBUTEROL SULFATE 2.5 MG/3 ML NEBU. NEB PRN (00:23)
[2017-03-18] MEDS: HYDROcodone/APAP 7.5/325MG 1 TAB TABLET PO PRN ×4 (01:25→20:43)
[2017-03-18 03:28] VITALS: BP 157/77
[2017-03-18 05:06] LABS: BASO # 0.1 x10^3/uL (0.0-0.2); BASO % 1 % (0-3); EOS % 5 % (0-3); HEMATOCRIT 21.8 % (39.0-53.0); HEMOGLOBIN 7.3 g/dL (13.0-17.5); LYMPH # 0.6 x10^3/uL (1.0-4.8); LYMPH % 9 % (24-48); MEAN CORPUSCULAR HEMOGLOBIN 31 pg (25-35); MEAN CORPUSCULAR HGB CONC 33 g/dL (31-37); MEAN CORPUSCULAR VOLUME 92 fL (79-100); MONO % 10 % (0-9); NEUT % 75 % (31-73); PLATELET COUNT 135 x10^3/uL (140-400); RED BLOOD COUNT 2.35 x10^6/uL (4.30-5.70); RED CELL DISTRIBUTION WIDTH 16.5 % (11.5-14.5); WHITE BLOOD COUNT 6.8 x10^3/uL (4.0-11.0)
[2017-03-18 05:36] LABS: CALCIUM 9.5 mg/dL (8.5-10.1); CREATININE 1.1 mg/dL (0.7-1.3); GFR 67.6; POTASSIUM 4.1 mmol/L (3.5-5.1)
[2017-03-18] MEDS: CEFEPIME HCL 2 GM in IV NORMAL SALINE 100ML 100 ML IV SCH ×3 (06:00→20:44)
[2017-03-18] MEDS: IPRATRPIUM/ALBUTEROL 0.5/2.5MG 3 ML NEBU. NEB SCH ×4 (06:08→20:07)
[2017-03-18 07:26] VITALS: BP 148/88
[2017-03-18] MEDS: fentaNYL 75MCG/HR PATCH 1 PATCH PATCH.TD72 TD SCH (08:39)
[2017-03-18] MEDS: ASPIRIN 325 MG TABLET PO SCH (08:42)
[2017-03-18] MEDS: CELECOXIB 200 MG CAPSULE. PO SCH ×2 (08:43→20:43)
[2017-03-18] MEDS: CLOPIDOGREL BISULFATE 75 MG TABLET PO SCH (08:43)
[2017-03-18] MEDS: ASCORBIC ACID 500 MG TABLET PO SCH ×2 (08:43→20:43)
[2017-03-18] MEDS: TAMSULOSIN 0.4 MG CAP.ER.24H. PO SCH ×2 (08:43→20:42)
[2017-03-18] MEDS: CITALOPRAM 20 MG TABLET. PO SCH (08:43)
[2017-03-18] MEDS: GABAPENTIN 300 MG CAPSULE. PO SCH ×2 (08:44→20:42)
[2017-03-18] MEDS: PANTOPRAZOLE 40 MG TABLET.DR. PO SCH (08:44)
[2017-03-18] MEDS: metFORMIN 500 MG TABLET PO SCH ×2 (08:44→17:28)
[2017-03-18] MEDS: CHOLECALCIFEROL (VITAMIN D3) 1,000 UNIT TABLET PO SCH (08:44)
[2017-03-18] MEDS: DOCUSATE SODIUM 100 MG CAPSULE. PO SCH (08:44)
[2017-03-18] MEDS: MULTIVITAMIN with MINERAL TABLET. PO SCH (08:45)
[2017-03-18] MEDS: LOSARTAN POTASSIUM 50 MG TABLET. PO SCH (08:45)
[2017-03-18] MEDS: INSULIN ASPART 300 UNITS/3 ML INSULN.PEN SQ SCH ×3 (08:47→17:31)
[2017-03-18] MEDS: NYSTATIN TOPICAL POWDER 15GM BOTTLE. TP SCH ×2 (08:49→21:00)
[2017-03-18 10:48] VITALS: BP 118/85
--- NOTE | 2017-03-18 11:12 | PDOC ---
PROGRESS NOTES Chief Complaint Chief Complaint Fall Aphasia PMH: HTN Hyperlipidemia Peripheral Neuropathy CVA GERD Depression CRI History of Present Illness History of Present Illness Pt was laying in bed and conversant. [employer] was in room taking vitals at the time. External fixator and wound vac are noted on the LLE. Pt has constipation and was given mag citrate. He also complained of some trouble breathing at night. Plan of care was discussed with the patient including going to SNU either at [facility] or at [facility]. Awaiting SW and insurance authorization. Pt appears to be in NAD. Heme Onc - anemia of chronic disease with BM biopsy when able to tolerate Neuro - cont. plavix, asa, and lipitor -consult vascular surgery as outpatient ID - cont. cefepime and nystatin -would like weekly CBC, Sed rate, and creatinine sent to hime -see him in office in 2 weeks Vitals Vitals Vital Signs Date Time Temp Pulse Resp B/P (MAP) Pulse Ox O2 Delivery O2 Flow Rate FiO2 03/18/17 10:52 91 Nasal Cannula 2.0 03/18/17 10:48 97.8 83 20 118/85 (96) 97.8 Physical Exam General: Alert, Oriented X3, Cooperative Heart: Regular rate, Normal S1, Normal S2 Lungs: Clear Abdomen: Normal bowel sounds, Soft, No tenderness, Other (morbidly obese) Extremities: No clubbing, No cyanosis, Other (left lower extremity external fixator in place) Skin: No rashes, Other (LLE wound with wound vac in place and draining ) Labs LABS Laboratory Tests Test 03/17/17 12:13 03/17/17 16:51 03/17/17 21:13 03/18/17 04:45 Glucose (Fingerstick) 232 mg/dL (70-99) 249 mg/dL (70-99) 239 mg/dL (70-99) White Blood Count 6.8 x10^3/uL (4.0-11.0) Red Blood Count 2.35 x10^6/uL (4.30-5.70) Hemoglobin 7.3 g/dL (13.0-17.5) Hematocrit 21.8 % (39.0-53.0) Mean Corpuscular Volume 92 fL (79-100) Mean Corpuscular Hemoglobin 31 pg (25-35) Mean Corpuscular Hemoglobin Concent 33 g/dL (31-37) Red Cell Distribution Width 16.5 % (11.5-14.5) Platelet Count 135 x10^3/uL (140-400) Neutrophils (%) (Auto) 75 % (31-73) Lymphocytes (%) (Auto) 9 % (24-48) Monocytes (%) (Auto) 10 % (0-9) Eosinophils (%) (Auto) 5 % (0-3) Basophils (%) (Auto) 1 % (0-3) Neutrophils # (Auto) 5.1 x10^3uL (1.8-7.7) Lymphocytes # (Auto) 0.6 x10^3/uL (1.0-4.8) Monocytes # (Auto) 0.7 x10^3/uL (0.0-1.1) Eosinophils # (Auto) 0.3 x10^3/uL (0.0-0.7) Basophils # (Auto) 0.1 x10^3/uL (0.0-0.2) Sodium Level 138 mmol/L (136-145) Potassium Level 4.1 mmol/L (3.5-5.1) Chloride Level 104 mmol/L (98-107) Carbon Dioxide Level 26 mmol/L (21-32) Anion Gap 8 (6-14) Blood Urea Nitrogen 29 mg/dL (8-26) Creatinine 1.1 mg/dL (0.7-1.3) Estimated GFR (Cockcroft-Gault) 67.6 Glucose Level 232 mg/dL (70-99) Calcium Level 9.5 mg/dL (8.5-10.1) Test 03/18/17 07:29 Glucose (Fingerstick) 241 mg/dL (70-99) Review of Systems Review of Systems Pt complains of nocturnal trouble breathing Pt complains of constipation Assessment and Plan Assessmemt and Plan Fall Aphasia PMH: HTN Hyperlipidemia Peripheral Neuropathy CVA GERD Depression CRI Plan: Ordered mag citrate Recheck labs Cont. to monitor Cont. abx cont. fluids wound care Probable [facility] for SNU Problems: Comment Review of Relevant I have reviewed the following items lauryn (where applicable) has been applied. Labs Laboratory Tests Test 03/16/17 11:11 03/16/17 16:18 03/16/17 20:36 03/17/17 06:10 Glucose (Fingerstick) 255 mg/dL (70-99) 234 mg/dL (70-99) 201 mg/dL (70-99) White Blood Count 6.7 x10^3/uL (4.0-11.0) Red Blood Count 2.42 x10^6/uL (4.30-5.70) Hemoglobin 7.7 g/dL (13.0-17.5) Hematocrit 21.9 % (39.0-53.0) Mean Corpuscular Volume 90 fL (79-100) Mean Corpuscular Hemoglobin 32 pg (25-35) Mean Corpuscular Hemoglobin Concent 35 g/dL (31-37) Red Cell Distribution Width 16.7 % (11.5-14.5) Platelet Count 150 x10^3/uL (140-400) Neutrophils (%) (Auto) 75 % (31-73) Lymphocytes (%) (Auto) 11 % (24-48) Monocytes (%) (Auto) 8 % (0-9) Eosinophils (%) (Auto) 5 % (0-3) Basophils (%) (Auto) 1 % (0-3) Neutrophils # (Auto) 5.0 x10^3uL (1.8-7.7) Lymphocytes # (Auto) 0.7 x10^3/uL (1.0-4.8) Monocytes # (Auto) 0.6 x10^3/uL (0.0-1.1) Eosinophils # (Auto) 0.3 x10^3/uL (0.0-0.7) Basophils # (Auto) 0.1 x10^3/uL (0.0-0.2) Segmented Neutrophils % 69 % (35-66) Band Neutrophils % 5 % (0-9) Lymphocytes % 12 % (24-48) Monocytes % 8 % (0-10) Eosinophils % 6 % (0-5) Platelet Estimate Adequate (ADEQUATE) Sodium Level 141 mmol/L (136-145) Potassium Level 4.3 mmol/L (3.5-5.1) Chloride Level 105 mmol/L (98-107) Carbon Dioxide Level 28 mmol/L (21-32) Anion Gap 8 (6-14) Blood Urea Nitrogen 28 mg/dL (8-26) Creatinine 1.2 mg/dL (0.7-1.3) Estimated GFR (Cockcroft-Gault) 61.1 Glucose Level 170 mg/dL (70-99) Calcium Level 9.8 mg/dL (8.5-10.1) Test 03/17/17 07:37 03/17/17 12:13 03/17/17 16:51 03/17/17 21:13 Glucose (Fingerstick) 144 mg/dL (70-99) 232 mg/dL (70-99) 249 mg/dL (70-99) 239 mg/dL (70-99) Test 03/18/17 04:45 03/18/17 07:29 White Blood Count 6.8 x10^3/uL (4.0-11.0) Red Blood Count 2.35 x10^6/uL (4.30-5.70) Hemoglobin 7.3 g/dL (13.0-17.5) Hematocrit 21.8 % (39.0-53.0) Mean Corpuscular Volume 92 fL (79-100) Mean Corpuscular Hemoglobin 31 pg (25-35) Mean Corpuscular Hemoglobin Concent 33 g/dL (31-37) Red Cell Distribution Width 16.5 % (11.5-14.5) Platelet Count 135 x10^3/uL (140-400) Neutrophils (%) (Auto) 75 % (31-73) Lymphocytes (%) (Auto) 9 % (24-48) Monocytes (%) (Auto) 10 % (0-9) Eosinophils (%) (Auto) 5 % (0-3) Basophils (%) (Auto) 1 % (0-3) Neutrophils # (Auto) 5.1 x10^3uL (1.8-7.7) Lymphocytes # (Auto) 0.6 x10^3/uL (1.0-4.8) Monocytes # (Auto) 0.7 x10^3/uL (0.0-1.1) Eosinophils # (Auto) 0.3 x10^3/uL (0.0-0.7) Basophils # (Auto) 0.1 x10^3/uL (0.0-0.2) Sodium Level 138 mmol/L (136-145) Potassium Level 4.1 mmol/L (3.5-5.1) Chloride Level 104 mmol/L (98-107) Carbon Dioxide Level 26 mmol/L (21-32) Anion Gap 8 (6-14) Blood Urea Nitrogen 29 mg/dL (8-26) Creatinine 1.1 mg/dL (0.7-1.3) Estimated GFR (Cockcroft-Gault) 67.6 Glucose Level 232 mg/dL (70-99) Calcium Level 9.5 mg/dL (8.5-10.1) Glucose (Fingerstick) 241 mg/dL (70-99) Laboratory Tests Test 03/17/17 12:13 03/17/17 16:51 03/17/17 21:13 03/18/17 04:45 Glucose (Fingerstick) 232 mg/dL (70-99) 249 mg/dL (70-99) 239 mg/dL (70-99) White Blood Count 6.8 x10^3/uL (4.0-11.0) Red Blood Count 2.35 x10^6/uL (4.30-5.70) Hemoglobin 7.3 g/dL (13.0-17.5) Hematocrit 21.8 % (39.0-53.0) Mean Corpuscular Volume 92 fL (79-100) Mean Corpuscular Hemoglobin 31 pg (25-35) Mean Corpuscular Hemoglobin Concent 33 g/dL (31-37) Red Cell Distribution Width 16.5 % (11.5-14.5) Platelet Count 135 x10^3/uL (140-400) Neutrophils (%) (Auto) 75 % (31-73) Lymphocytes (%) (Auto) 9 % (24-48) Monocytes (%) (Auto) 10 % (0-9) Eosinophils (%) (Auto) 5 % (0-3) Basophils (%) (Auto) 1 % (0-3) Neutrophils # (Auto) 5.1 x10^3uL (1.8-7.7) Lymphocytes # (Auto) 0.6 x10^3/uL (1.0-4.8) Monocytes # (Auto) 0.7 x10^3/uL (0.0-1.1) Eosinophils # (Auto) 0.3 x10^3/uL (0.0-0.7) Basophils # (Auto) 0.1 x10^3/uL (0.0-0.2) Sodium Level 138 mmol/L (136-145) Potassium Level 4.1 mmol/L (3.5-5.1) Chloride Level 104 mmol/L (98-107) Carbon Dioxide Level 26 mmol/L (21-32) Anion Gap 8 (6-14) Blood Urea Nitrogen 29 mg/dL (8-26) Creatinine 1.1 mg/dL (0.7-1.3) Estimated GFR (Cockcroft-Gault) 67.6 Glucose Level 232 mg/dL (70-99) Calcium Level 9.5 mg/dL (8.5-10.1) Test 03/18/17 07:29 Glucose (Fingerstick) 241 mg/dL (70-99) Medications Current Medications Diphenhydramine HCl (Benadryl) 50 mg 1X ONCE IVP Last administered on 17:11; Start 03/11/17 at 15:30; Stop 03/11/17 at 15:32; Status DC Ondansetron HCl (Zofran) 4 mg PRN Q8HRS PRN IV NAUSEA/VOMITING; Start 03/11/17 at 18:30; Stop 03/12/17 at 18:29; Status DC Morphine Sulfate 4 mg PRN Q2HR PRN IV PAIN; Start 03/11/17 at 18:30; Stop 03/12 at 18:29; Status DC Acetaminophen (Tylenol) 650 mg PRN Q4HRS PRN PO FEVER; Start 03/11/17 at 18:30 ; Stop 03/12/17 at 18:29; Status DC Clopidogrel Bisulfate (Plavix) 75 mg 1X ONCE PO Last administered on 18:48; Start 03/11/17 at 18:30; Stop 03/11/17 at 18:31; Status DC Aspirin (Omkar Aspirin) 325 mg DAILY PO Last administered on 03/18/17 08:42; Start 03/12/17 at 09:00 Atorvastatin Calcium (Lipitor) 20 mg QHS PO Last administered on 03/14/17 21: 28; Start 03/11/17 at 21:00; Stop 03/15/17 at 10:59; Status DC Celecoxib (CeleBREX) 200 mg BID PO Last administered on 03/18/17 08:43; Start 03/11/17 at 21:00 Vitamin D (Vitamin D3) 1,000 unit DAILY PO Last administered on 03/18/17 08:44 ; Start 03/12/17 at 09:00 Clopidogrel Bisulfate (Plavix) 75 mg DAILY PO Last administered on 03/18/17 08 :43; Start 03/12/17 at 09:00 Docusate Sodium (Colace) 100 mg DAILY PO Last administered on 03/18/17 08:44; Start 03/12/17 at 09:00 Fentanyl (Duragesic 75mcg/ Hr Patch) 1 patch Q3DAYS TD Last administered on 08:39; Start 03/12/17 at 09:00 Acetaminophen/ Hydrocodone Bitart (Lortab 7.5/325) 1 tab PRN Q4HRS PRN PO MODERATE PAIN Last administered on 03/18/17 06:07; Start 03/11/17 at 19:30 Losartan Potassium (Cozaar) 50 mg DAILY PO Last administered on 03/18/17 08:45 ; Start 03/12/17 at 09:00 Metformin HCl (Glucophage) 500 mg BIDWMEALS PO Last administered on 03/18/17 08:44; Start 03/12/17 at 08:00 Pantoprazole Sodium (Protonix) 40 mg DAILYAC PO Last administered on 03/18/17 08:44; Start 03/12/17 at 07:30 Tamsulosin HCl (Flomax) 0.4 mg BID PO Last administered on 03/18/17 08:43; Start 03/11/17 at 21:00 Tamsulosin HCl (Flomax) 0.4 mg HS PO ; Start 03/11/17 at 21:00; Status UNV Citalopram Hydrobromide (CeleXA) 40 mg DAILY PO Last administered on 03/18/17 08:43; Start 03/12/17 at 09:00 Gabapentin (Neurontin) 300 mg BID PO Last administered on 03/18/17 08:44; Start 03/11/17 at 21:00 Insulin Detemir (Levemir) 22 units QHS SQ Last administered on 03/17/17 21:50 ; Start 03/11/17 at 21:00 Non-Formulary Medication 3.375 gm Q6HRS IV ; Start 03/12/17 at 00:00; Status UNV Insulin Aspart (NovoLOG) TIDWMEALS SQ Last administered on 03/18/17 08:47; Start 03/12/17 at 08:00 Dextrose (Dextrose 50%-Water Syringe) 12.5 gm PRN Q15MIN PRN IV SEE COMMENTS; Start 03/11/17 at 19:30 Piperacillin Sod/ Tazobactam Sod 3.375 gm/Sodium Chloride 50 ml @ 100 mls/hr Q6HRS IV Last administered on 03/15/17 05:39; Start 03/12/17 at 00:00; Stop 03/15/17 at 08:19; Status DC Hydromorphone HCl (Dilaudid) 0.5 mg PRN Q3HRS PRN IVP SEVERE PAIN Last administered on 03/12/17 07:55; Start 03/11/17 at 23:15 Albuterol/ Ipratropium (Duoneb) 3 ml RTQID NEB Last administered on 03/18/17 10:51; Start 03/12/17 at 08:00 Albuterol Sulfate (Ventolin Neb Soln) 2.5 mg PRN Q4HRS PRN NEB SHORTNESS OF BREATH Last administered on 03/18/17 00:23; Start 03/12/17 at 06:00 Nystatin (Nystop) 1 rae BID TP Last administered on 03/18/17 08:49; Start at 09:00 Magnesium Sulfate/ Dextrose 50 ml @ 25 mls/hr 1X ONCE IV Last administered on 03/13/17 18:31; Start 03/13/17 at 18:15; Stop 03/14/17 at 13:16; Status DC Magnesium Sulfate/ Dextrose 50 ml @ 25 mls/hr 1X ONCE IV ; Start 03/14/17 at 13 :00; Stop 03/14/17 at 14:59; Status DC Cefepime HCl 2 gm/ Sodium Chloride 100 ml @ 200 mls/hr Q8HRS IV Last administered on 03/18/17 06:00; Start 03/15/17 at 09:00 Atorvastatin Calcium (Lipitor) 40 mg QHS PO Last administered on 03/17/17 20: 34; Start 03/15/17 at 21:00 Alteplase, Recombinant (Cathflo) 2 mg 1X ONCE INT CAT Last administered on 14:26; Start 03/16/17 at 11:15; Stop 03/16/17 at 11:18; Status DC Ascorbic Acid (Vitamin C) 500 mg BID PO Last administered on 03/18/17 08:43; Start 03/17/17 at 21:00 Multivitamins (Thera M Plus) 1 tab DAILY PO Last administered on 03/18/17 08: 45; Start 03/18/17 at 09:00 Active Scripts Active Hydrocodone-Apap 7.5-325 (Hydrocodone Bit/Acetaminophen) 1 Each Tablet 1 Tab PO PRN Q4HRS PRN Reported Tamsulosin Hcl 0.4 Mg Cap.er.24h 1 Cap PO DAILY Zosyn 3.375 Gm Galaxy Bag (Tokmdyvngvcv-Dbyu-Mkfuzqbc,Iso) 3.375 Gm/50 Ml Froz.piggy 3.375 Gm IV Q6HRS Novolog (Insulin Aspart) 100 Unit/1 Ml Cartridge 15 Unit SQ TIDAC Pantoprazole Sodium 40 Mg Tablet.dr 40 Mg PO DAILY Levemir (Insulin Detemir) 100 Unit/1 Ml Vial 22 Unit SQ HS FENTANYL 75mcg/hr (Fentanyl) 1 Each Patch.td72 1 Patch TP Q3DAYS Colace (Docusate Sodium) 100 Mg Capsule 1 Cap PO DAILY Aspirin 325 Mg Tablet 1 Tab PO DAILY Vitamin D3 (Cholecalciferol (Vitamin D3)) 1,000 Unit Tablet 1 Tab PO DAILY Losartan Potassium 50 Mg Tablet 50 Mg PO DAILY Gabapentin 300 Mg Capsule 300 Mg PO BID Celebrex (Celecoxib) 200 Mg Capsule 200 Mg PO BID 30 Days Citalopram Hbr (Citalopram Hydrobromide) 40 Mg Tablet 40 Mg PO DAILY Lipitor (Atorvastatin Calcium) 20 Mg Tablet 20 Mg PO QHS Flomax (Tamsulosin Hcl) 0.4 Mg Cap.er.24h 0.4 Mg PO HS Metformin Hcl 500 Mg Tablet 500 Mg PO BID Plavix (Clopidogrel Bisulfate) 75 Mg Tablet 75 Mg PO DAILY Vitals/I & O Vital Sign - Last 24 Hours 03/17/17 03/17/17 03/17/17 03/17/17 11:54 14:54 15:35 19:19 Temp 97.9 97.9 Pulse 92 Resp 18 B/P (MAP) 154/79 (104) Pulse Ox 97 97 93 94 O2 Delivery Nasal Cannula Room Air Nasal Cannula Room Air O2 Flow Rate 2.0 2.0 03/17/17 03/17/17 03/17/17 03/18/17 19:42 20:00 23:08 00:23 Temp 98.2 97.9 98.2 97.9 Pulse 85 72 Resp 16 20 B/P (MAP) 147/77 (100) 150/84 (106) Pulse Ox 93 96 96 O2 Delivery Room Air Nasal Cannula Room Air Nasal Cannula O2 Flow Rate 2.0 2.0 03/18/17 03/18/17 03/18/17 03/18/17 02:25 03:28 06:07 06:15 Temp 98.4 98.4 Pulse 74 Resp 20 18 24 B/P (MAP) 157/77 (103) Pulse Ox 96 91 O2 Delivery Room Air Nasal Cannula O2 Flow Rate 2.0 03/18/17 03/18/17 03/18/17 03/18/17 07:26 08:00 08:39 08:45 Temp 97.8 97.8 Pulse 89 89 Resp 20 B/P (MAP) 148/88 (108) 148/88 Pulse Ox 94 94 O2 Delivery Nasal Cannula Nasal Cannula Nasal Cannula O2 Flow Rate 2.0 2.0 2.0 03/18/17 03/18/17 03/18/17 08:48 10:48 10:52 Temp 97.8 97.8 Pulse 83 Resp 20 B/P (MAP) 118/85 (96) Pulse Ox 94 95 91 O2 Delivery Nasal Cannula Nasal Cannula Nasal Cannula O2 Flow Rate 2.0 2.0 2.0 Intake and Output 03/18/17 03/18/17 03/19/17 15:00 23:00 07:00 Intake Total 240 ml Output Total 350 ml Balance -110 ml PRATIBHA FATIMA III DO Mar 18, 2017 11:11
[2017-03-18] MEDS: MAGNESIUM CITRATE 296 ML SOLUTION. PO ONE ×2 (11:15→12:18)
--- NOTE | 2017-03-18 14:29 | PDOC ---
PROGRESS NOTES Assessment Dysarthria, probably due to metabolic problems or maybe just the narcotics No evidence of stroke or transient ischemic attack Metabolic encephalopathy. Plan Continue Plavix 75 mg daily. Continue ASA daily. Continue Lipitor HS. Treat UTI per floor team. Treat medical diseases. Dr. Ruiz thinks patient should see Vascular Surgery as out-patient. OT/PT. SNU or acute rehab, still awaiting placement Subjective No neurological symptoms Objective Vital Signs Date Time Temp Pulse Resp B/P (MAP) Pulse Ox O2 Delivery O2 Flow Rate FiO2 03/18/17 13:31 91 Nasal Cannula 2.0 03/18/17 10:48 97.8 83 20 118/85 (96) 97.8 Intake and Output 03/19/17 07:00 Intake Total 480 ml Output Total 1200 ml Balance -720 ml Intake Oral 480 ml Output Urine Total 1200 ml # Bowel Movements 1 PHYSICAL EXAM Alert. Oriented to time, place and person. PERRL. EOMI. CN: no focal findings. Muscle tone: normal. Muscle strength: 5/5 DTR: 1+ Plantar reflex: flexor Gait: not examined in bed. Sensory exam: no abnormal findings. No cerebellar signs elicited. Review of Relevant I have reviewed the following items lauryn (where applicable) has been applied. Labs Laboratory Tests Test 03/16/17 16:18 03/16/17 20:36 03/17/17 06:10 03/17/17 07:37 Glucose (Fingerstick) 234 mg/dL (70-99) 201 mg/dL (70-99) 144 mg/dL (70-99) White Blood Count 6.7 x10^3/uL (4.0-11.0) Red Blood Count 2.42 x10^6/uL (4.30-5.70) Hemoglobin 7.7 g/dL (13.0-17.5) Hematocrit 21.9 % (39.0-53.0) Mean Corpuscular Volume 90 fL (79-100) Mean Corpuscular Hemoglobin 32 pg (25-35) Mean Corpuscular Hemoglobin Concent 35 g/dL (31-37) Red Cell Distribution Width 16.7 % (11.5-14.5) Platelet Count 150 x10^3/uL (140-400) Neutrophils (%) (Auto) 75 % (31-73) Lymphocytes (%) (Auto) 11 % (24-48) Monocytes (%) (Auto) 8 % (0-9) Eosinophils (%) (Auto) 5 % (0-3) Basophils (%) (Auto) 1 % (0-3) Neutrophils # (Auto) 5.0 x10^3uL (1.8-7.7) Lymphocytes # (Auto) 0.7 x10^3/uL (1.0-4.8) Monocytes # (Auto) 0.6 x10^3/uL (0.0-1.1) Eosinophils # (Auto) 0.3 x10^3/uL (0.0-0.7) Basophils # (Auto) 0.1 x10^3/uL (0.0-0.2) Segmented Neutrophils % 69 % (35-66) Band Neutrophils % 5 % (0-9) Lymphocytes % 12 % (24-48) Monocytes % 8 % (0-10) Eosinophils % 6 % (0-5) Platelet Estimate Adequate (ADEQUATE) Sodium Level 141 mmol/L (136-145) Potassium Level 4.3 mmol/L (3.5-5.1) Chloride Level 105 mmol/L (98-107) Carbon Dioxide Level 28 mmol/L (21-32) Anion Gap 8 (6-14) Blood Urea Nitrogen 28 mg/dL (8-26) Creatinine 1.2 mg/dL (0.7-1.3) Estimated GFR (Cockcroft-Gault) 61.1 Glucose Level 170 mg/dL (70-99) Calcium Level 9.8 mg/dL (8.5-10.1) Test 03/17/17 12:13 03/17/17 16:51 03/17/17 21:13 03/18/17 04:45 Glucose (Fingerstick) 232 mg/dL (70-99) 249 mg/dL (70-99) 239 mg/dL (70-99) White Blood Count 6.8 x10^3/uL (4.0-11.0) Red Blood Count 2.35 x10^6/uL (4.30-5.70) Hemoglobin 7.3 g/dL (13.0-17.5) Hematocrit 21.8 % (39.0-53.0) Mean Corpuscular Volume 92 fL (79-100) Mean Corpuscular Hemoglobin 31 pg (25-35) Mean Corpuscular Hemoglobin Concent 33 g/dL (31-37) Red Cell Distribution Width 16.5 % (11.5-14.5) Platelet Count 135 x10^3/uL (140-400) Neutrophils (%) (Auto) 75 % (31-73) Lymphocytes (%) (Auto) 9 % (24-48) Monocytes (%) (Auto) 10 % (0-9) Eosinophils (%) (Auto) 5 % (0-3) Basophils (%) (Auto) 1 % (0-3) Neutrophils # (Auto) 5.1 x10^3uL (1.8-7.7) Lymphocytes # (Auto) 0.6 x10^3/uL (1.0-4.8) Monocytes # (Auto) 0.7 x10^3/uL (0.0-1.1) Eosinophils # (Auto) 0.3 x10^3/uL (0.0-0.7) Basophils # (Auto) 0.1 x10^3/uL (0.0-0.2) Sodium Level 138 mmol/L (136-145) Potassium Level 4.1 mmol/L (3.5-5.1) Chloride Level 104 mmol/L (98-107) Carbon Dioxide Level 26 mmol/L (21-32) Anion Gap 8 (6-14) Blood Urea Nitrogen 29 mg/dL (8-26) Creatinine 1.1 mg/dL (0.7-1.3) Estimated GFR (Cockcroft-Gault) 67.6 Glucose Level 232 mg/dL (70-99) Calcium Level 9.5 mg/dL (8.5-10.1) Test 03/18/17 07:29 03/18/17 11:40 Glucose (Fingerstick) 241 mg/dL (70-99) 283 mg/dL (70-99) Laboratory Tests Test 03/17/17 16:51 03/17/17 21:13 03/18/17 04:45 03/18/17 07:29 Glucose (Fingerstick) 249 mg/dL (70-99) 239 mg/dL (70-99) 241 mg/dL (70-99) White Blood Count 6.8 x10^3/uL (4.0-11.0) Red Blood Count 2.35 x10^6/uL (4.30-5.70) Hemoglobin 7.3 g/dL (13.0-17.5) Hematocrit 21.8 % (39.0-53.0) Mean Corpuscular Volume 92 fL (79-100) Mean Corpuscular Hemoglobin 31 pg (25-35) Mean Corpuscular Hemoglobin Concent 33 g/dL (31-37) Red Cell Distribution Width 16.5 % (11.5-14.5) Platelet Count 135 x10^3/uL (140-400) Neutrophils (%) (Auto) 75 % (31-73) Lymphocytes (%) (Auto) 9 % (24-48) Monocytes (%) (Auto) 10 % (0-9) Eosinophils (%) (Auto) 5 % (0-3) Basophils (%) (Auto) 1 % (0-3) Neutrophils # (Auto) 5.1 x10^3uL (1.8-7.7) Lymphocytes # (Auto) 0.6 x10^3/uL (1.0-4.8) Monocytes # (Auto) 0.7 x10^3/uL (0.0-1.1) Eosinophils # (Auto) 0.3 x10^3/uL (0.0-0.7) Basophils # (Auto) 0.1 x10^3/uL (0.0-0.2) Sodium Level 138 mmol/L (136-145) Potassium Level 4.1 mmol/L (3.5-5.1) Chloride Level 104 mmol/L (98-107) Carbon Dioxide Level 26 mmol/L (21-32) Anion Gap 8 (6-14) Blood Urea Nitrogen 29 mg/dL (8-26) Creatinine 1.1 mg/dL (0.7-1.3) Estimated GFR (Cockcroft-Gault) 67.6 Glucose Level 232 mg/dL (70-99) Calcium Level 9.5 mg/dL (8.5-10.1) Test 03/18/17 11:40 Glucose (Fingerstick) 283 mg/dL (70-99) Medications Current Medications Diphenhydramine HCl (Benadryl) 50 mg 1X ONCE IVP Last administered on t 17:11; Start 03/11/17 at 15:30; Stop 03/11/17 at 15:32; Status DC Ondansetron HCl (Zofran) 4 mg PRN Q8HRS PRN IV NAUSEA/VOMITING; Start 03/11/17 at 18:30; Stop 03/12/17 at 18:29; Status DC Morphine Sulfate 4 mg PRN Q2HR PRN IV PAIN; Start 03/11/17 at 18:30; Stop 03/12 at 18:29; Status DC Acetaminophen (Tylenol) 650 mg PRN Q4HRS PRN PO FEVER; Start 03/11/17 at 18:30 ; Stop 03/12/17 at 18:29; Status DC Clopidogrel Bisulfate (Plavix) 75 mg 1X ONCE PO Last administered on 18:48; Start 03/11/17 at 18:30; Stop 03/11/17 at 18:31; Status DC Aspirin (Omkar Aspirin) 325 mg DAILY PO Last administered on 03/18/17 08:42; Start 03/12/17 at 09:00 Atorvastatin Calcium (Lipitor) 20 mg QHS PO Last administered on 03/14/17 21: 28; Start 03/11/17 at 21:00; Stop 03/15/17 at 10:59; Status DC Celecoxib (CeleBREX) 200 mg BID PO Last administered on 03/18/17 08:43; Start 03/11/17 at 21:00 Vitamin D (Vitamin D3) 1,000 unit DAILY PO Last administered on 03/18/17 08:44 ; Start 03/12/17 at 09:00 Clopidogrel Bisulfate (Plavix) 75 mg DAILY PO Last administered on 03/18/17 08 :43; Start 03/12/17 at 09:00 Docusate Sodium (Colace) 100 mg DAILY PO Last administered on 03/18/17 08:44; Start 03/12/17 at 09:00 Fentanyl (Duragesic 75mcg/ Hr Patch) 1 patch Q3DAYS TD Last administered on 08:39; Start 03/12/17 at 09:00 Acetaminophen/ Hydrocodone Bitart (Lortab 7.5/325) 1 tab PRN Q4HRS PRN PO MODERATE PAIN Last administered on 03/18/17 06:07; Start 03/11/17 at 19:30 Losartan Potassium (Cozaar) 50 mg DAILY PO Last administered on 03/18/17 08:45 ; Start 03/12/17 at 09:00 Metformin HCl (Glucophage) 500 mg BIDWMEALS PO Last administered on 03/18/17 08:44; Start 03/12/17 at 08:00 Pantoprazole Sodium (Protonix) 40 mg DAILYAC PO Last administered on 03/18/17 08:44; Start 03/12/17 at 07:30 Tamsulosin HCl (Flomax) 0.4 mg BID PO Last administered on 03/18/17 08:43; Start 03/11/17 at 21:00 Tamsulosin HCl (Flomax) 0.4 mg HS PO ; Start 03/11/17 at 21:00; Status UNV Citalopram Hydrobromide (CeleXA) 40 mg DAILY PO Last administered on 03/18/17 08:43; Start 03/12/17 at 09:00 Gabapentin (Neurontin) 300 mg BID PO Last administered on 03/18/17 08:44; Start 03/11/17 at 21:00 Insulin Detemir (Levemir) 22 units QHS SQ Last administered on 03/17/17 21:50 ; Start 03/11/17 at 21:00 Non-Formulary Medication 3.375 gm Q6HRS IV ; Start 03/12/17 at 00:00; Status UNV Insulin Aspart (NovoLOG) TIDWMEALS SQ Last administered on 03/18/17 12:22; Start 03/12/17 at 08:00 Dextrose (Dextrose 50%-Water Syringe) 12.5 gm PRN Q15MIN PRN IV SEE COMMENTS; Start 03/11/17 at 19:30 Piperacillin Sod/ Tazobactam Sod 3.375 gm/Sodium Chloride 50 ml @ 100 mls/hr Q6HRS IV Last administered on 03/15/17 05:39; Start 03/12/17 at 00:00; Stop 03/15/17 at 08:19; Status DC Hydromorphone HCl (Dilaudid) 0.5 mg PRN Q3HRS PRN IVP SEVERE PAIN Last administered on 03/12/17 07:55; Start 03/11/17 at 23:15 Albuterol/ Ipratropium (Duoneb) 3 ml RTQID NEB Last administered on 03/18/17 10:51; Start 03/12/17 at 08:00 Albuterol Sulfate (Ventolin Neb Soln) 2.5 mg PRN Q4HRS PRN NEB SHORTNESS OF BREATH Last administered on 03/18/17 00:23; Start 03/12/17 at 06:00 Nystatin (Nystop) 1 rae BID TP Last administered on 03/18/17 08:49; Start at 09:00 Magnesium Sulfate/ Dextrose 50 ml @ 25 mls/hr 1X ONCE IV Last administered on 03/13/17 18:31; Start 03/13/17 at 18:15; Stop 03/14/17 at 13:16; Status DC Magnesium Sulfate/ Dextrose 50 ml @ 25 mls/hr 1X ONCE IV ; Start 03/14/17 at 13 :00; Stop 03/14/17 at 14:59; Status DC Cefepime HCl 2 gm/ Sodium Chloride 100 ml @ 200 mls/hr Q8HRS IV Last administered on 03/18/17 06:00; Start 03/15/17 at 09:00 Atorvastatin Calcium (Lipitor) 40 mg QHS PO Last administered on 03/17/17 20: 34; Start 03/15/17 at 21:00 Alteplase, Recombinant (Cathflo) 2 mg 1X ONCE INT CAT Last administered on 14:26; Start 03/16/17 at 11:15; Stop 03/16/17 at 11:18; Status DC Ascorbic Acid (Vitamin C) 500 mg BID PO Last administered on 03/18/17 08:43; Start 03/17/17 at 21:00 Multivitamins (Thera M Plus) 1 tab DAILY PO Last administered on 03/18/17 08: 45; Start 03/18/17 at 09:00 Magnesium Citrate (Citroma) 296 ml 1X ONCE PO Last administered on 03/18/17 12:18; Start 03/18/17 at 11:15; Stop 03/18/17 at 11:16; Status DC Active Scripts Active Hydrocodone-Apap 7.5-325 (Hydrocodone Bit/Acetaminophen) 1 Each Tablet 1 Tab PO PRN Q4HRS PRN Reported Tamsulosin Hcl 0.4 Mg Cap.er.24h 1 Cap PO DAILY Zosyn 3.375 Gm Galaxy Bag (Rnpezrleoinw-Lckz-Vclwojft,Iso) 3.375 Gm/50 Ml Froz.piggy 3.375 Gm IV Q6HRS Novolog (Insulin Aspart) 100 Unit/1 Ml Cartridge 15 Unit SQ TIDAC Pantoprazole Sodium 40 Mg Tablet.dr 40 Mg PO DAILY Levemir (Insulin Detemir) 100 Unit/1 Ml Vial 22 Unit SQ HS FENTANYL 75mcg/hr (Fentanyl) 1 Each Patch.td72 1 Patch TP Q3DAYS Colace (Docusate Sodium) 100 Mg Capsule 1 Cap PO DAILY Aspirin 325 Mg Tablet 1 Tab PO DAILY Vitamin D3 (Cholecalciferol (Vitamin D3)) 1,000 Unit Tablet 1 Tab PO DAILY Losartan Potassium 50 Mg Tablet 50 Mg PO DAILY Gabapentin 300 Mg Capsule 300 Mg PO BID Celebrex (Celecoxib) 200 Mg Capsule 200 Mg PO BID 30 Days Citalopram Hbr (Citalopram Hydrobromide) 40 Mg Tablet 40 Mg PO DAILY Lipitor (Atorvastatin Calcium) 20 Mg Tablet 20 Mg PO QHS Flomax (Tamsulosin Hcl) 0.4 Mg Cap.er.24h 0.4 Mg PO HS Metformin Hcl 500 Mg Tablet 500 Mg PO BID Plavix (Clopidogrel Bisulfate) 75 Mg Tablet 75 Mg PO DAILY Vitals/I & O Vital Sign - Last 24 Hours 03/17/17 03/17/17 03/17/17 03/17/17 14:54 15:35 19:19 19:42 Temp 97.9 98.2 97.9 98.2 Pulse 92 85 Resp 18 16 B/P (MAP) 154/79 (104) 147/77 (100) Pulse Ox 97 93 94 93 O2 Delivery Room Air Nasal Cannula Room Air Room Air O2 Flow Rate 2.0 03/17/17 03/17/17 03/18/17 03/18/17 20:00 23:08 00:23 02:25 Temp 97.9 97.9 Pulse 72 Resp 20 20 B/P (MAP) 150/84 (106) Pulse Ox 96 96 O2 Delivery Nasal Cannula Room Air Nasal Cannula O2 Flow Rate 2.0 2.0 03/18/17 03/18/17 03/18/17 03/18/17 03:28 06:07 06:15 07:26 Temp 98.4 97.8 98.4 97.8 Pulse 74 89 Resp 18 24 20 B/P (MAP) 157/77 (103) 148/88 (108) Pulse Ox 96 91 94 O2 Delivery Room Air Nasal Cannula Nasal Cannula O2 Flow Rate 2.0 2.0 03/18/17 03/18/17 03/18/17 03/18/17 08:00 08:39 08:45 08:48 Pulse 89 B/P (MAP) 148/88 Pulse Ox 94 94 O2 Delivery Nasal Cannula Nasal Cannula Nasal Cannula O2 Flow Rate 2.0 2.0 2.0 03/18/17 03/18/17 03/18/17 10:48 10:52 13:31 Temp 97.8 97.8 Pulse 83 Resp 20 B/P (MAP) 118/85 (96) Pulse Ox 95 91 91 O2 Delivery Nasal Cannula Nasal Cannula Nasal Cannula O2 Flow Rate 2.0 2.0 2.0 Intake and Output 03/18/17 03/18/17 03/19/17 15:00 23:00 07:00 Intake Total 480 ml Output Total 1200 ml Balance -720 ml YAZ ESCOBEDO MD Mar 18, 2017 14:29
[2017-03-18 14:31] VITALS: BP 143/80
--- NOTE | 2017-03-18 16:18 | PDOC ---
PROGRESS NOTES Subjective Subjective c/c - f/u of anemia Objective Objective Vital Signs Date Time Temp Pulse Resp B/P (MAP) Pulse Ox O2 Delivery O2 Flow Rate FiO2 03/18/17 15:55 97 Nasal Cannula 2.0 03/18/17 14:31 97.9 81 20 143/80 (101) 97.9 Intake and Output 03/19/17 07:00 Intake Total 480 ml Output Total 1200 ml Balance -720 ml Intake Oral 480 ml Output Urine Total 1200 ml # Bowel Movements 1 Physical Exam Heart: Normal S1, Normal S2 General: Alert, Oriented X3, No acute distress Lungs: Clear to auscultation Neuro: Normal speech Assessment Assessment IMPRESSION AND PLAN: 1. Anemia. Iron studies are suggestive of anemia due to chronic disease. He has multiple comorbid conditions. He has persistent left heel wound and he has noticed some bleeding from that occasionally. I suspect that the etiology of anemia is due to chronic disease and chronic left heel wound. I will continue to monitor hemoglobin and transfuse as needed. His reticulocyte count is 1.5 and hence I do not suspect hemolysis. His iron studies, B12 and folic acid do not reveal any deficiencies. His differential count is unremarkable and there is no evidence of immature white cells to suggest leukemia. It is very unlikely that he has a primary bone marrow disorder. Bone marrow biopsy would be reasonable to consider when he is able to lie down. The patient has external fixation apparatus in the left leg. This will be difficult to perform at this time and it is not an emergency. He does have a M-spike noted during his prior labs and hence a bone marrow biopsy would be reasonable to be performed when possible. s/p 1 PRBC 03/15/17 Hb now 7.3 Monitor cbc and transfuse as needed. 2. 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 Plan for a bone marrow aspiration and biopsy when he is unable to tolerate. 3. Left heel wound. Appreciate management per Infectious Diseases. I discussed with Dr. Chente Luo. He has been started on cefepime. 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 Comment Review of Relevant I have reviewed the following items lauryn (where applicable) has been applied. Labs Laboratory Tests Test 03/16/17 16:18 03/16/17 20:36 10/4/17 06:10 03/17/17 07:37 Glucose (Fingerstick) 234 mg/dL (70-99) 201 mg/dL (70-99) 144 mg/dL (70-99) White Blood Count 6.7 x10^3/uL (4.0-11.0) Red Blood Count 2.42 x10^6/uL (4.30-5.70) Hemoglobin 7.7 g/dL (13.0-17.5) Hematocrit 21.9 % (39.0-53.0) Mean Corpuscular Volume 90 fL (79-100) Mean Corpuscular Hemoglobin 32 pg (25-35) Mean Corpuscular Hemoglobin Concent 35 g/dL (31-37) Red Cell Distribution Width 16.7 % (11.5-14.5) Platelet Count 150 x10^3/uL (140-400) Neutrophils (%) (Auto) 75 % (31-73) Lymphocytes (%) (Auto) 11 % (24-48) Monocytes (%) (Auto) 8 % (0-9) Eosinophils (%) (Auto) 5 % (0-3) Basophils (%) (Auto) 1 % (0-3) Neutrophils # (Auto) 5.0 x10^3uL (1.8-7.7) Lymphocytes # (Auto) 0.7 x10^3/uL (1.0-4.8) Monocytes # (Auto) 0.6 x10^3/uL (0.0-1.1) Eosinophils # (Auto) 0.3 x10^3/uL (0.0-0.7) Basophils # (Auto) 0.1 x10^3/uL (0.0-0.2) Segmented Neutrophils % 69 % (35-66) Band Neutrophils % 5 % (0-9) Lymphocytes % 12 % (24-48) Monocytes % 8 % (0-10) Eosinophils % 6 % (0-5) Platelet Estimate Adequate (ADEQUATE) Sodium Level 141 mmol/L (136-145) Potassium Level 4.3 mmol/L (3.5-5.1) Chloride Level 105 mmol/L (98-107) Carbon Dioxide Level 28 mmol/L (21-32) Anion Gap 8 (6-14) Blood Urea Nitrogen 28 mg/dL (8-26) Creatinine 1.2 mg/dL (0.7-1.3) Estimated GFR (Cockcroft-Gault) 61.1 Glucose Level 170 mg/dL (70-99) Calcium Level 9.8 mg/dL (8.5-10.1) Test 03/17/17 12:13 03/17/17 16:51 03/17/17 21:13 03/18/17 04:45 Glucose (Fingerstick) 232 mg/dL (70-99) 249 mg/dL (70-99) 239 mg/dL (70-99) White Blood Count 6.8 x10^3/uL (4.0-11.0) Red Blood Count 2.35 x10^6/uL (4.30-5.70) Hemoglobin 7.3 g/dL (13.0-17.5) Hematocrit 21.8 % (39.0-53.0) Mean Corpuscular Volume 92 fL (79-100) Mean Corpuscular Hemoglobin 31 pg (25-35) Mean Corpuscular Hemoglobin Concent 33 g/dL (31-37) Red Cell Distribution Width 16.5 % (11.5-14.5) Platelet Count 135 x10^3/uL (140-400) Neutrophils (%) (Auto) 75 % (31-73) Lymphocytes (%) (Auto) 9 % (24-48) Monocytes (%) (Auto) 10 % (0-9) Eosinophils (%) (Auto) 5 % (0-3) Basophils (%) (Auto) 1 % (0-3) Neutrophils # (Auto) 5.1 x10^3uL (1.8-7.7) Lymphocytes # (Auto) 0.6 x10^3/uL (1.0-4.8) Monocytes # (Auto) 0.7 x10^3/uL (0.0-1.1) Eosinophils # (Auto) 0.3 x10^3/uL (0.0-0.7) Basophils # (Auto) 0.1 x10^3/uL (0.0-0.2) Sodium Level 138 mmol/L (136-145) Potassium Level 4.1 mmol/L (3.5-5.1) Chloride Level 104 mmol/L (98-107) Carbon Dioxide Level 26 mmol/L (21-32) Anion Gap 8 (6-14) Blood Urea Nitrogen 29 mg/dL (8-26) Creatinine 1.1 mg/dL (0.7-1.3) Estimated GFR (Cockcroft-Gault) 67.6 Glucose Level 232 mg/dL (70-99) Calcium Level 9.5 mg/dL (8.5-10.1) Test 03/18/17 07:29 03/18/17 11:40 Glucose (Fingerstick) 241 mg/dL (70-99) 283 mg/dL (70-99) Laboratory Tests Test 03/17/17 16:51 03/17/17 21:13 03/18/17 04:45 03/18/17 07:29 Glucose (Fingerstick) 249 mg/dL (70-99) 239 mg/dL (70-99) 241 mg/dL (70-99) White Blood Count 6.8 x10^3/uL (4.0-11.0) Red Blood Count 2.35 x10^6/uL (4.30-5.70) Hemoglobin 7.3 g/dL (13.0-17.5) Hematocrit 21.8 % (39.0-53.0) Mean Corpuscular Volume 92 fL (79-100) Mean Corpuscular Hemoglobin 31 pg (25-35) Mean Corpuscular Hemoglobin Concent 33 g/dL (31-37) Red Cell Distribution Width 16.5 % (11.5-14.5) Platelet Count 135 x10^3/uL (140-400) Neutrophils (%) (Auto) 75 % (31-73) Lymphocytes (%) (Auto) 9 % (24-48) Monocytes (%) (Auto) 10 % (0-9) Eosinophils (%) (Auto) 5 % (0-3) Basophils (%) (Auto) 1 % (0-3) Neutrophils # (Auto) 5.1 x10^3uL (1.8-7.7) Lymphocytes # (Auto) 0.6 x10^3/uL (1.0-4.8) Monocytes # (Auto) 0.7 x10^3/uL (0.0-1.1) Eosinophils # (Auto) 0.3 x10^3/uL (0.0-0.7) Basophils # (Auto) 0.1 x10^3/uL (0.0-0.2) Sodium Level 138 mmol/L (136-145) Potassium Level 4.1 mmol/L (3.5-5.1) Chloride Level 104 mmol/L (98-107) Carbon Dioxide Level 26 mmol/L (21-32) Anion Gap 8 (6-14) Blood Urea Nitrogen 29 mg/dL (8-26) Creatinine 1.1 mg/dL (0.7-1.3) Estimated GFR (Cockcroft-Gault) 67.6 Glucose Level 232 mg/dL (70-99) Calcium Level 9.5 mg/dL (8.5-10.1) Test 03/18/17 11:40 Glucose (Fingerstick) 283 mg/dL (70-99) Medications Current Medications Diphenhydramine HCl (Benadryl) 50 mg 1X ONCE IVP Last administered on 17:11; Start 03/11/17 at 15:30; Stop 03/11/17 at 15:32; Status DC Ondansetron HCl (Zofran) 4 mg PRN Q8HRS PRN IV NAUSEA/VOMITING; Start 03/11/17 at 18:30; Stop 03/12/17 at 18:29; Status DC Morphine Sulfate 4 mg PRN Q2HR PRN IV PAIN; Start 03/11/17 at 18:30; Stop 03/12 at 18:29; Status DC Acetaminophen (Tylenol) 650 mg PRN Q4HRS PRN PO FEVER; Start 03/11/17 at 18:30 ; Stop 03/12/17 at 18:29; Status DC Clopidogrel Bisulfate (Plavix) 75 mg 1X ONCE PO Last administered on 18:48; Start 03/11/17 at 18:30; Stop 03/11/17 at 18:31; Status DC Aspirin (Omkar Aspirin) 325 mg DAILY PO Last administered on 03/18/17 08:42; Start 03/12/17 at 09:00 Atorvastatin Calcium (Lipitor) 20 mg QHS PO Last administered on 03/14/17 21: 28; Start 03/11/17 at 21:00; Stop 03/15/17 at 10:59; Status DC Celecoxib (CeleBREX) 200 mg BID PO Last administered on 03/18/17 08:43; Start 03/11/17 at 21:00 Vitamin D (Vitamin D3) 1,000 unit DAILY PO Last administered on 03/18/17 08:44 ; Start 03/12/17 at 09:00 Clopidogrel Bisulfate (Plavix) 75 mg DAILY PO Last administered on 03/18/17 08 :43; Start 03/12/17 at 09:00 Docusate Sodium (Colace) 100 mg DAILY PO Last administered on 03/18/17 08:44; Start 03/12/17 at 09:00 Fentanyl (Duragesic 75mcg/ Hr Patch) 1 patch Q3DAYS TD Last administered on 08:39; Start 03/12/17 at 09:00 Acetaminophen/ Hydrocodone Bitart (Lortab 7.5/325) 1 tab PRN Q4HRS PRN PO MODERATE PAIN Last administered on 03/18/17 15:55; Start 03/11/17 at 19:30 Losartan Potassium (Cozaar) 50 mg DAILY PO Last administered on 03/18/17 08:45 ; Start 03/12/17 at 09:00 Metformin HCl (Glucophage) 500 mg BIDWMEALS PO Last administered on 03/18/17 08:44; Start 03/12/17 at 08:00 Pantoprazole Sodium (Protonix) 40 mg DAILYAC PO Last administered on 03/18/17 08:44; Start 03/12/17 at 07:30 Tamsulosin HCl (Flomax) 0.4 mg BID PO Last administered on 03/18/17 08:43; Start 03/11/17 at 21:00 Tamsulosin HCl (Flomax) 0.4 mg HS PO ; Start 03/11/17 at 21:00; Status UNV Citalopram Hydrobromide (CeleXA) 40 mg DAILY PO Last administered on 03/18/17 08:43; Start 03/12/17 at 09:00 Gabapentin (Neurontin) 300 mg BID PO Last administered on 03/18/17 08:44; Start 03/11/17 at 21:00 Insulin Detemir (Levemir) 22 units QHS SQ Last administered on 03/17/17 21:50 ; Start 03/11/17 at 21:00 Non-Formulary Medication 3.375 gm Q6HRS IV ; Start 03/12/17 at 00:00; Status UNV Insulin Aspart (NovoLOG) TIDWMEALS SQ Last administered on 03/18/17 12:22; Start 03/12/17 at 08:00 Dextrose (Dextrose 50%-Water Syringe) 12.5 gm PRN Q15MIN PRN IV SEE COMMENTS; Start 03/11/17 at 19:30 Piperacillin Sod/ Tazobactam Sod 3.375 gm/Sodium Chloride 50 ml @ 100 mls/hr Q6HRS IV Last administered on 03/15/17 05:39; Start 03/12/17 at 00:00; Stop 03/15/17 at 08:19; Status DC Hydromorphone HCl (Dilaudid) 0.5 mg PRN Q3HRS PRN IVP SEVERE PAIN Last administered on 03/12/17 07:55; Start 03/11/17 at 23:15 Albuterol/ Ipratropium (Duoneb) 3 ml RTQID NEB Last administered on 03/18/17 14:44; Start 03/12/17 at 08:00 Albuterol Sulfate (Ventolin Neb Soln) 2.5 mg PRN Q4HRS PRN NEB SHORTNESS OF BREATH Last administered on 03/18/17 00:23; Start 03/12/17 at 06:00 Nystatin (Nystop) 1 rae BID TP Last administered on 03/18/17 08:49; Start at 09:00 Magnesium Sulfate/ Dextrose 50 ml @ 25 mls/hr 1X ONCE IV Last administered on 03/13/17 18:31; Start 03/13/17 at 18:15; Stop 03/14/17 at 13:16; Status DC Magnesium Sulfate/ Dextrose 50 ml @ 25 mls/hr 1X ONCE IV ; Start 03/14/17 at 13 :00; Stop 03/14/17 at 14:59; Status DC Cefepime HCl 2 gm/ Sodium Chloride 100 ml @ 200 mls/hr Q8HRS IV Last administered on 03/18/17 06:00; Start 03/15/17 at 09:00 Atorvastatin Calcium (Lipitor) 40 mg QHS PO Last administered on 03/17/17 20: 34; Start 03/15/17 at 21:00 Alteplase, Recombinant (Cathflo) 2 mg 1X ONCE INT CAT Last administered on 14:26; Start 03/16/17 at 11:15; Stop 03/16/17 at 11:18; Status DC Ascorbic Acid (Vitamin C) 500 mg BID PO Last administered on 03/18/17 08:43; Start 03/17/17 at 21:00 Multivitamins (Thera M Plus) 1 tab DAILY PO Last administered on 03/18/17 08: 45; Start 03/18/17 at 09:00 Magnesium Citrate (Citroma) 296 ml 1X ONCE PO Last administered on 03/18/17 12:18; Start 03/18/17 at 11:15; Stop 03/18/17 at 11:16; Status DC Active Scripts Active Hydrocodone-Apap 7.5-325 (Hydrocodone Bit/Acetaminophen) 1 Each Tablet 1 Tab PO PRN Q4HRS PRN Reported Tamsulosin Hcl 0.4 Mg Cap.er.24h 1 Cap PO DAILY Zosyn 3.375 Gm Galaxy Bag (Clovmetlejty-Lpnl-Pzunrogl,Iso) 3.375 Gm/50 Ml Froz.piggy 3.375 Gm IV Q6HRS Novolog (Insulin Aspart) 100 Unit/1 Ml Cartridge 15 Unit SQ TIDAC Pantoprazole Sodium 40 Mg Tablet.dr 40 Mg PO DAILY Levemir (Insulin Detemir) 100 Unit/1 Ml Vial 22 Unit SQ HS FENTANYL 75mcg/hr (Fentanyl) 1 Each Patch.td72 1 Patch TP Q3DAYS Colace (Docusate Sodium) 100 Mg Capsule 1 Cap PO DAILY Aspirin 325 Mg Tablet 1 Tab PO DAILY Vitamin D3 (Cholecalciferol (Vitamin D3)) 1,000 Unit Tablet 1 Tab PO DAILY Losartan Potassium 50 Mg Tablet 50 Mg PO DAILY Gabapentin 300 Mg Capsule 300 Mg PO BID Celebrex (Celecoxib) 200 Mg Capsule 200 Mg PO BID 30 Days Citalopram Hbr (Citalopram Hydrobromide) 40 Mg Tablet 40 Mg PO DAILY Lipitor (Atorvastatin Calcium) 20 Mg Tablet 20 Mg PO QHS Flomax (Tamsulosin Hcl) 0.4 Mg Cap.er.24h 0.4 Mg PO HS Metformin Hcl 500 Mg Tablet 500 Mg PO BID Plavix (Clopidogrel Bisulfate) 75 Mg Tablet 75 Mg PO DAILY Vitals/I & O Vital Sign - Last 24 Hours 03/17/17 03/17/17 03/17/17 03/17/17 19:19 19:42 20:00 23:08 Temp 98.2 97.9 98.2 97.9 Pulse 85 72 Resp 16 20 B/P (MAP) 147/77 (100) 150/84 (106) Pulse Ox 94 93 96 O2 Delivery Room Air Room Air Nasal Cannula Room Air O2 Flow Rate 2.0 03/18/17 03/18/17 03/18/17 03/18/17 00:23 02:25 03:28 06:07 Temp 98.4 98.4 Pulse 74 Resp 20 18 24 B/P (MAP) 157/77 (103) Pulse Ox 96 96 O2 Delivery Nasal Cannula Room Air O2 Flow Rate 2.0 03/18/17 03/18/17 03/18/17 03/18/17 06:15 07:26 08:00 08:39 Temp 97.8 97.8 Pulse 89 Resp 20 B/P (MAP) 148/88 (108) Pulse Ox 91 94 94 O2 Delivery Nasal Cannula Nasal Cannula Nasal Cannula Nasal Cannula O2 Flow Rate 2.0 2.0 2.0 2.0 03/18/17 03/18/17 03/18/17 03/18/17 08:45 08:48 10:48 10:52 Temp 97.8 97.8 Pulse 89 83 Resp 20 B/P (MAP) 148/88 118/85 (96) Pulse Ox 94 95 91 O2 Delivery Nasal Cannula Nasal Cannula Nasal Cannula O2 Flow Rate 2.0 2.0 2.0 03/18/17 03/18/17 03/18/17 03/18/17 13:31 14:31 14:45 15:55 Temp 97.9 97.9 Pulse 81 Resp 20 B/P (MAP) 143/80 (101) Pulse Ox 91 97 97 O2 Delivery Nasal Cannula Nasal Cannula Nasal Cannula Nasal Cannula O2 Flow Rate 2.0 2.0 2.0 2.0 Intake and Output 03/18/17 03/18/17 03/19/17 15:00 23:00 07:00 Intake Total 480 ml Output Total 1200 ml Balance -720 ml KAYCE MCKEON MD Mar 18, 2017 16:17
[2017-03-18 19:50] VITALS: BP 123/74
[2017-03-18] MEDS: ATORVASTATIN CALCIUM 20 MG TABLET PO SCH (20:43)
[2017-03-18] MEDS: INSULIN DETEMIR 300 UNITS/3 ML INSULN.PEN. SQ SCH (22:36)
[2017-03-18 23:31] VITALS: BP 110/61
[2017-03-19 03:33] VITALS: BP 136/73
[2017-03-19] MEDS: CEFEPIME HCL 2 GM in IV NORMAL SALINE 100ML 100 ML IV SCH ×3 (05:25→20:52)
[2017-03-19 07:02] VITALS: BP 139/87
[2017-03-19] MEDS: IPRATRPIUM/ALBUTEROL 0.5/2.5MG 3 ML NEBU. NEB SCH ×4 (07:52→18:10)
--- NOTE | 2017-03-19 07:56 | PDOC ---
PROGRESS NOTES Assessment Dysarthria, probably due to metabolic problems or maybe just the narcotics No evidence of stroke or transient ischemic attack Metabolic encephalopathy. Plan Continue Plavix 75 mg daily. Continue ASA daily. Continue Lipitor HS. SNU or acute rehab, still awaiting placement Subjective Slept well Objective Vital Signs Date Time Temp Pulse Resp B/P (MAP) Pulse Ox O2 Delivery O2 Flow Rate FiO2 03/19/17 07:53 96 Nasal Cannula 3.0 03/19/17 07:02 97.8 93 19 139/87 (104) 97.8 PHYSICAL EXAM Alert. Oriented to time, place and person. PERRL. EOMI. CN: no focal findings. Muscle tone: normal. Muscle strength: 5/5 DTR: 1+ Plantar reflex: flexor Gait: not examined in bed. Sensory exam: no abnormal findings. No cerebellar signs elicited. Review of Relevant I have reviewed the following items lauryn (where applicable) has been applied. Labs Laboratory Tests Test 03/17/17 12:13 03/17/17 16:51 03/17/17 21:13 03/18/17 04:45 Glucose (Fingerstick) 232 mg/dL (70-99) 249 mg/dL (70-99) 239 mg/dL (70-99) White Blood Count 6.8 x10^3/uL (4.0-11.0) Red Blood Count 2.35 x10^6/uL (4.30-5.70) Hemoglobin 7.3 g/dL (13.0-17.5) Hematocrit 21.8 % (39.0-53.0) Mean Corpuscular Volume 92 fL (79-100) Mean Corpuscular Hemoglobin 31 pg (25-35) Mean Corpuscular Hemoglobin Concent 33 g/dL (31-37) Red Cell Distribution Width 16.5 % (11.5-14.5) Platelet Count 135 x10^3/uL (140-400) Neutrophils (%) (Auto) 75 % (31-73) Lymphocytes (%) (Auto) 9 % (24-48) Monocytes (%) (Auto) 10 % (0-9) Eosinophils (%) (Auto) 5 % (0-3) Basophils (%) (Auto) 1 % (0-3) Neutrophils # (Auto) 5.1 x10^3uL (1.8-7.7) Lymphocytes # (Auto) 0.6 x10^3/uL (1.0-4.8) Monocytes # (Auto) 0.7 x10^3/uL (0.0-1.1) Eosinophils # (Auto) 0.3 x10^3/uL (0.0-0.7) Basophils # (Auto) 0.1 x10^3/uL (0.0-0.2) Sodium Level 138 mmol/L (136-145) Potassium Level 4.1 mmol/L (3.5-5.1) Chloride Level 104 mmol/L (98-107) Carbon Dioxide Level 26 mmol/L (21-32) Anion Gap 8 (6-14) Blood Urea Nitrogen 29 mg/dL (8-26) Creatinine 1.1 mg/dL (0.7-1.3) Estimated GFR (Cockcroft-Gault) 67.6 Glucose Level 232 mg/dL (70-99) Calcium Level 9.5 mg/dL (8.5-10.1) Test 03/18/17 07:29 03/18/17 11:40 03/18/17 16:45 03/18/17 20:58 Glucose (Fingerstick) 241 mg/dL (70-99) 283 mg/dL (70-99) 208 mg/dL (70-99) 286 mg/dL (70-99) Test 03/19/17 07:02 Glucose (Fingerstick) 165 mg/dL (70-99) Laboratory Tests Test 03/18/17 11:40 03/18/17 16:45 03/18/17 20:58 03/19/17 07:02 Glucose (Fingerstick) 283 mg/dL (70-99) 208 mg/dL (70-99) 286 mg/dL (70-99) 165 mg/dL (70-99) Medications Current Medications Diphenhydramine HCl (Benadryl) 50 mg 1X ONCE IVP Last administered on t 17:11; Start 03/11/17 at 15:30; Stop 03/11/17 at 15:32; Status DC Ondansetron HCl (Zofran) 4 mg PRN Q8HRS PRN IV NAUSEA/VOMITING; Start 03/11/17 at 18:30; Stop 03/12/17 at 18:29; Status DC Morphine Sulfate 4 mg PRN Q2HR PRN IV PAIN; Start 03/11/17 at 18:30; Stop 03/12 at 18:29; Status DC Acetaminophen (Tylenol) 650 mg PRN Q4HRS PRN PO FEVER; Start 03/11/17 at 18:30 ; Stop 03/12/17 at 18:29; Status DC Clopidogrel Bisulfate (Plavix) 75 mg 1X ONCE PO Last administered on 18:48; Start 03/11/17 at 18:30; Stop 03/11/17 at 18:31; Status DC Aspirin (Omkar Aspirin) 325 mg DAILY PO Last administered on 03/18/17 08:42; Start 03/12/17 at 09:00 Atorvastatin Calcium (Lipitor) 20 mg QHS PO Last administered on 03/14/17 21: 28; Start 03/11/17 at 21:00; Stop 03/15/17 at 10:59; Status DC Celecoxib (CeleBREX) 200 mg BID PO Last administered on 03/18/17 20:43; Start 03/11/17 at 21:00 Vitamin D (Vitamin D3) 1,000 unit DAILY PO Last administered on 03/18/17 08:44 ; Start 03/12/17 at 09:00 Clopidogrel Bisulfate (Plavix) 75 mg DAILY PO Last administered on 03/18/17 08 :43; Start 03/12/17 at 09:00 Docusate Sodium (Colace) 100 mg DAILY PO Last administered on 03/18/17 08:44; Start 03/12/17 at 09:00 Fentanyl (Duragesic 75mcg/ Hr Patch) 1 patch Q3DAYS TD Last administered on 08:39; Start 03/12/17 at 09:00 Acetaminophen/ Hydrocodone Bitart (Lortab 7.5/325) 1 tab PRN Q4HRS PRN PO MODERATE PAIN Last administered on 03/18/17 20:43; Start 03/11/17 at 19:30 Losartan Potassium (Cozaar) 50 mg DAILY PO Last administered on 03/18/17 08:45 ; Start 03/12/17 at 09:00 Metformin HCl (Glucophage) 500 mg BIDWMEALS PO Last administered on 03/18/17 17:28; Start 03/12/17 at 08:00 Pantoprazole Sodium (Protonix) 40 mg DAILYAC PO Last administered on 03/18/17 08:44; Start 03/12/17 at 07:30 Tamsulosin HCl (Flomax) 0.4 mg BID PO Last administered on 03/18/17 20:42; Start 03/11/17 at 21:00 Tamsulosin HCl (Flomax) 0.4 mg HS PO ; Start 03/11/17 at 21:00; Status UNV Citalopram Hydrobromide (CeleXA) 40 mg DAILY PO Last administered on 03/18/17 08:43; Start 03/12/17 at 09:00 Gabapentin (Neurontin) 300 mg BID PO Last administered on 03/18/17 20:42; Start 03/11/17 at 21:00 Insulin Detemir (Levemir) 22 units QHS SQ Last administered on 03/18/17 22:36 ; Start 03/11/17 at 21:00 Non-Formulary Medication 3.375 gm Q6HRS IV ; Start 03/12/17 at 00:00; Status UNV Insulin Aspart (NovoLOG) TIDWMEALS SQ Last administered on 03/18/17 17:31; Start 03/12/17 at 08:00 Dextrose (Dextrose 50%-Water Syringe) 12.5 gm PRN Q15MIN PRN IV SEE COMMENTS; Start 03/11/17 at 19:30 Piperacillin Sod/ Tazobactam Sod 3.375 gm/Sodium Chloride 50 ml @ 100 mls/hr Q6HRS IV Last administered on 03/15/17 05:39; Start 03/12/17 at 00:00; Stop 03/15/17 at 08:19; Status DC Hydromorphone HCl (Dilaudid) 0.5 mg PRN Q3HRS PRN IVP SEVERE PAIN Last administered on 03/12/17 07:55; Start 03/11/17 at 23:15 Albuterol/ Ipratropium (Duoneb) 3 ml RTQID NEB Last administered on 03/19/17 07:52; Start 03/12/17 at 08:00 Albuterol Sulfate (Ventolin Neb Soln) 2.5 mg PRN Q4HRS PRN NEB SHORTNESS OF BREATH Last administered on 03/18/17 00:23; Start 03/12/17 at 06:00 Nystatin (Nystop) 1 rae BID TP Last administered on 03/18/17 08:49; Start at 09:00 Magnesium Sulfate/ Dextrose 50 ml @ 25 mls/hr 1X ONCE IV Last administered on 03/13/17 18:31; Start 03/13/17 at 18:15; Stop 03/14/17 at 13:16; Status DC Magnesium Sulfate/ Dextrose 50 ml @ 25 mls/hr 1X ONCE IV ; Start 03/14/17 at 13 :00; Stop 03/14/17 at 14:59; Status DC Cefepime HCl 2 gm/ Sodium Chloride 100 ml @ 200 mls/hr Q8HRS IV Last administered on 03/19/17 05:25; Start 03/15/17 at 09:00 Atorvastatin Calcium (Lipitor) 40 mg QHS PO Last administered on 03/18/17 20: 43; Start 03/15/17 at 21:00 Alteplase, Recombinant (Cathflo) 2 mg 1X ONCE INT CAT Last administered on 14:26; Start 03/16/17 at 11:15; Stop 03/16/17 at 11:18; Status DC Ascorbic Acid (Vitamin C) 500 mg BID PO Last administered on 03/18/17 20:43; Start 03/17/17 at 21:00 Multivitamins (Thera M Plus) 1 tab DAILY PO Last administered on 03/18/17 08: 45; Start 03/18/17 at 09:00 Magnesium Citrate (Citroma) 296 ml 1X ONCE PO ; Start 03/18/17 at 11:15; Stop 03/18/17 at 11:16; Status DC Active Scripts Active Hydrocodone-Apap 7.5-325 (Hydrocodone Bit/Acetaminophen) 1 Each Tablet 1 Tab PO PRN Q4HRS PRN Reported Tamsulosin Hcl 0.4 Mg Cap.er.24h 1 Cap PO DAILY Zosyn 3.375 Gm Galaxy Bag (Wkmabtzdekep-Amex-Ryhwopqa,Iso) 3.375 Gm/50 Ml Froz.piggy 3.375 Gm IV Q6HRS Novolog (Insulin Aspart) 100 Unit/1 Ml Cartridge 15 Unit SQ TIDAC Pantoprazole Sodium 40 Mg Tablet.dr 40 Mg PO DAILY Levemir (Insulin Detemir) 100 Unit/1 Ml Vial 22 Unit SQ HS FENTANYL 75mcg/hr (Fentanyl) 1 Each Patch.td72 1 Patch TP Q3DAYS Colace (Docusate Sodium) 100 Mg Capsule 1 Cap PO DAILY Aspirin 325 Mg Tablet 1 Tab PO DAILY Vitamin D3 (Cholecalciferol (Vitamin D3)) 1,000 Unit Tablet 1 Tab PO DAILY Losartan Potassium 50 Mg Tablet 50 Mg PO DAILY Gabapentin 300 Mg Capsule 300 Mg PO BID Celebrex (Celecoxib) 200 Mg Capsule 200 Mg PO BID 30 Days Citalopram Hbr (Citalopram Hydrobromide) 40 Mg Tablet 40 Mg PO DAILY Lipitor (Atorvastatin Calcium) 20 Mg Tablet 20 Mg PO QHS Flomax (Tamsulosin Hcl) 0.4 Mg Cap.er.24h 0.4 Mg PO HS Metformin Hcl 500 Mg Tablet 500 Mg PO BID Plavix (Clopidogrel Bisulfate) 75 Mg Tablet 75 Mg PO DAILY Vitals/I & O Vital Sign - Last 24 Hours 03/18/17 03/18/17 03/18/17 03/18/17 08:00 08:39 08:45 10:48 Temp 97.8 97.8 Pulse 89 83 Resp 20 B/P (MAP) 148/88 118/85 (96) Pulse Ox 94 95 O2 Delivery Nasal Cannula Nasal Cannula Nasal Cannula O2 Flow Rate 2.0 2.0 2.0 03/18/17 03/18/17 03/18/17 03/18/17 10:52 13:31 14:31 14:45 Temp 97.9 97.9 Pulse 81 Resp 20 B/P (MAP) 143/80 (101) Pulse Ox 91 91 97 O2 Delivery Nasal Cannula Nasal Cannula Nasal Cannula Nasal Cannula O2 Flow Rate 2.0 2.0 2.0 2.0 03/18/17 03/18/17 03/18/17 03/18/17 15:55 19:50 20:05 20:07 Temp 98.2 98.2 Pulse 83 Resp 20 B/P (MAP) 123/74 (90) Pulse Ox 97 97 O2 Delivery Nasal Cannula Nasal Cannula Nasal Cannula Nasal Cannula O2 Flow Rate 2.0 2.0 2.0 2.0 03/18/17 03/18/17 03/18/176/17 20:43 21:43 23:31 03:33 Temp 98.1 97.6 98.1 97.6 Pulse 81 80 Resp 20 20 20 18 B/P (MAP) 110/61 (77) 136/73 (94) Pulse Ox 98 98 97 96 O2 Delivery Nasal Cannula Nasal Cannula Nasal Cannula Nasal Cannula O2 Flow Rate 2.0 2.0 2.0 2.0 03/19/17 03/19/17 07:02 07:53 Temp 97.8 97.8 Pulse 93 Resp 19 B/P (MAP) 139/87 (104) Pulse Ox 94 96 O2 Delivery Room Air Nasal Cannula O2 Flow Rate 3.0 YAZ ESCOBEDO MD Mar 19, 2017 07:56
[2017-03-19] MEDS: TAMSULOSIN 0.4 MG CAP.ER.24H. PO SCH ×2 (08:27→20:53)
[2017-03-19] MEDS: ASCORBIC ACID 500 MG TABLET PO SCH ×2 (08:28→20:53)
[2017-03-19] MEDS: GABAPENTIN 300 MG CAPSULE. PO SCH ×2 (08:28→20:52)
[2017-03-19] MEDS: LOSARTAN POTASSIUM 50 MG TABLET. PO SCH (08:28)
[2017-03-19] MEDS: PANTOPRAZOLE 40 MG TABLET.DR. PO SCH (08:29)
[2017-03-19] MEDS: DOCUSATE SODIUM 100 MG CAPSULE. PO SCH (08:29)
[2017-03-19] MEDS: CELECOXIB 200 MG CAPSULE. PO SCH ×2 (08:29→20:52)
[2017-03-19] MEDS: CLOPIDOGREL BISULFATE 75 MG TABLET PO SCH (08:29)
[2017-03-19] MEDS: metFORMIN 500 MG TABLET PO SCH ×2 (08:29→17:37)
[2017-03-19] MEDS: MULTIVITAMIN with MINERAL TABLET. PO SCH (08:30)
[2017-03-19] MEDS: ASPIRIN 325 MG TABLET PO SCH (08:30)
[2017-03-19] MEDS: CHOLECALCIFEROL (VITAMIN D3) 1,000 UNIT TABLET PO SCH (08:30)
[2017-03-19] MEDS: CITALOPRAM 20 MG TABLET. PO SCH (08:30)
[2017-03-19] MEDS: INSULIN ASPART 300 UNITS/3 ML INSULN.PEN SQ SCH ×3 (08:38→17:40)
[2017-03-19] MEDS: NYSTATIN TOPICAL POWDER 15GM BOTTLE. TP SCH ×2 (09:00→19:18)
--- NOTE | 2017-03-19 09:45 | PDOC ---
PROGRESS NOTES Chief Complaint Chief Complaint Fall Aphasia ASSESSMENT AND PLAN: 1. Aphasia: appreciate Dr Garvey's input: no evidence of TIA/CVA; thought to be 2ary to metabolic derangements/narcotics. now resolved 2. Ankle fx L: external fixation intact. F/U with Dr Galvin on O/P basis 3. Cellulitis L ankle: cont IV cefepime until 03/31, cont nystatin. O/P weekly CBC/Sed rate/Cr (fax to [phone]). F/u ID office 2 weeks 4. Anemia: chronic inflammation per anemia labs. 5. M-spike: minimal, 0.1 g/dl free lambda light chain. planned BM bx when physically able to undergo procedure 6. HTN/HLD: continue home meds 7. Hx CVA 8. DM2: on low dose metformin, levemir/ISS. not optimally controlled; increase levemir 9. Peripheral Neuropathy: on neurontin 10. GERD: PPI 11. CKD2: stable creat 12. Depression: on citalopram 13. Dispo: not eligible for SNU per his insurance. not acute rehab candidate either. cannot safely d/c.ed to home with current situation and no one at home to help. d/w CM & SW History of Present Illness History of Present Illness clinically ok, but anxious about dispo plans. Vitals Vitals Vital Signs Date Time Temp Pulse Resp B/P (MAP) Pulse Ox O2 Delivery O2 Flow Rate FiO2 03/19/17 08:28 93 139/87 03/19/17 08:00 Nasal Cannula 3.0 03/19/17 07:53 96 03/19/17 07:02 97.8 19 97.8 Physical Exam General: Alert, Oriented X3, No acute distress Heart: Normal S1, Normal S2 Lungs: Clear Abdomen: Normal bowel sounds, Soft, No tenderness, Other (morbidly obese) Extremities: No clubbing, No cyanosis, Other (left lower extremity external fixator in place) Skin: No rashes, Other (LLE wound with wound vac in place and draining ) Labs LABS Laboratory Tests Test 03/18/17 11:40 03/18/17 16:45 03/18/17 20:58 03/19/17 07:02 Glucose (Fingerstick) 283 mg/dL (70-99) 208 mg/dL (70-99) 286 mg/dL (70-99) 165 mg/dL (70-99) NEVIN LONG MD Mar 19, 2017 09:45
[2017-03-19] MEDS ORDERED: ALTEPLASE 2 MG VIAL INT CAT ONE (10:00)
[2017-03-19 10:38] VITALS: BP 138/80
[2017-03-19 11:52] LABS: BASO # 0.1 x10^3/uL (0.0-0.2); BASO % 1 % (0-3); EOS % 5 % (0-3); HEMATOCRIT 23.5 % (39.0-53.0); HEMOGLOBIN 7.8 g/dL (13.0-17.5); LYMPH # 0.7 x10^3/uL (1.0-4.8); LYMPH % 10 % (24-48); MEAN CORPUSCULAR HEMOGLOBIN 31 pg (25-35); MEAN CORPUSCULAR HGB CONC 33 g/dL (31-37); MEAN CORPUSCULAR VOLUME 93 fL (79-100); MONO % 10 % (0-9); NEUT % 75 % (31-73); PLATELET COUNT 134 x10^3/uL (140-400); RED BLOOD COUNT 2.54 x10^6/uL (4.30-5.70); RED CELL DISTRIBUTION WIDTH 17.2 % (11.5-14.5)
[2017-03-19 11:57] LABS: CALCIUM 9.6 mg/dL (8.5-10.1); CREATININE 1.2 mg/dL (0.7-1.3); GFR 61.1; POTASSIUM 4.4 mmol/L (3.5-5.1)
--- NOTE | 2017-03-19 12:03 | PDOC ---
PROGRESS NOTES Subjective Subjective HPI - anemia due to chronic disease ROS - mild amount of blood from heel wound Objective Objective Vital Signs Date Time Temp Pulse Resp B/P (MAP) Pulse Ox O2 Delivery O2 Flow Rate FiO2 03/19/17 10:38 97.5 85 20 138/80 (99) 96 Room Air 97.5 03/19/17 08:00 3.0 Intake and Output 03/20/17 07:00 Intake Total 680 ml Output Total 650 ml Balance 30 ml Intake Oral 680 ml Output Urine Total 650 ml Physical Exam Heart: Normal S1, Normal S2 General: Alert, Oriented X3 Lungs: Clear to auscultation Neuro: Normal speech Psych/Mental Status: Mental status NL Assessment Assessment IMPRESSION AND PLAN: 1. Anemia. Iron studies are suggestive of anemia due to chronic disease. He has multiple comorbid conditions. He has persistent left heel wound and he has noticed some bleeding from that occasionally. I suspect that the etiology of anemia is due to chronic disease and chronic left heel wound. I will continue to monitor hemoglobin and transfuse as needed. His reticulocyte count is 1.5 and hence I do not suspect hemolysis. His iron studies, B12 and folic acid do not reveal any deficiencies. His differential count is unremarkable and there is no evidence of immature white cells to suggest leukemia. It is very unlikely that he has a primary bone marrow disorder. Bone marrow biopsy would be reasonable to consider when he is able to lie down. The patient has external fixation apparatus in the left leg. This will be difficult to perform at this time and it is not an emergency. He does have a M-spike noted during his prior labs and hence a bone marrow biopsy would be reasonable to be performed when possible. s/p 1 PRBC 03/15/17 Hb now 7.8 Monitor cbc and transfuse as needed. 2. 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 Plan for a bone marrow aspiration and biopsy when he is unable to tolerate. 3. Left heel wound. Appreciate management per Infectious Diseases. I discussed with Dr. Chente Luo. He has been started on cefepime. 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 Comment Review of Relevant I have reviewed the following items lauryn (where applicable) has been applied. Labs Laboratory Tests Test 03/17/17 12:13 03/17/17 16:51 03/17/17 21:13 03/18/17 04:45 Glucose (Fingerstick) 232 mg/dL (70-99) 249 mg/dL (70-99) 239 mg/dL (70-99) White Blood Count 6.8 x10^3/uL (4.0-11.0) Red Blood Count 2.35 x10^6/uL (4.30-5.70) Hemoglobin 7.3 g/dL (13.0-17.5) Hematocrit 21.8 % (39.0-53.0) Mean Corpuscular Volume 92 fL (79-100) Mean Corpuscular Hemoglobin 31 pg (25-35) Mean Corpuscular Hemoglobin Concent 33 g/dL (31-37) Red Cell Distribution Width 16.5 % (11.5-14.5) Platelet Count 135 x10^3/uL (140-400) Neutrophils (%) (Auto) 75 % (31-73) Lymphocytes (%) (Auto) 9 % (24-48) Monocytes (%) (Auto) 10 % (0-9) Eosinophils (%) (Auto) 5 % (0-3) Basophils (%) (Auto) 1 % (0-3) Neutrophils # (Auto) 5.1 x10^3uL (1.8-7.7) Lymphocytes # (Auto) 0.6 x10^3/uL (1.0-4.8) Monocytes # (Auto) 0.7 x10^3/uL (0.0-1.1) Eosinophils # (Auto) 0.3 x10^3/uL (0.0-0.7) Basophils # (Auto) 0.1 x10^3/uL (0.0-0.2) Sodium Level 138 mmol/L (136-145) Potassium Level 4.1 mmol/L (3.5-5.1) Chloride Level 104 mmol/L (98-107) Carbon Dioxide Level 26 mmol/L (21-32) Anion Gap 8 (6-14) Blood Urea Nitrogen 29 mg/dL (8-26) Creatinine 1.1 mg/dL (0.7-1.3) Estimated GFR (Cockcroft-Gault) 67.6 Glucose Level 232 mg/dL (70-99) Calcium Level 9.5 mg/dL (8.5-10.1) Test 03/18/17 07:29 03/18/17 11:40 03/18/17 16:45 03/18/17 20:58 Glucose (Fingerstick) 241 mg/dL (70-99) 283 mg/dL (70-99) 208 mg/dL (70-99) 286 mg/dL (70-99) Test 03/19/17 07:02 03/19/17 11:20 03/19/17 11:31 Glucose (Fingerstick) 165 mg/dL (70-99) 277 mg/dL (70-99) White Blood Count 7.0 x10^3/uL (4.0-11.0) Red Blood Count 2.54 x10^6/uL (4.30-5.70) Hemoglobin 7.8 g/dL (13.0-17.5) Hematocrit 23.5 % (39.0-53.0) Mean Corpuscular Volume 93 fL (79-100) Mean Corpuscular Hemoglobin 31 pg (25-35) Mean Corpuscular Hemoglobin Concent 33 g/dL (31-37) Red Cell Distribution Width 17.2 % (11.5-14.5) Platelet Count 134 x10^3/uL (140-400) Neutrophils (%) (Auto) 75 % (31-73) Lymphocytes (%) (Auto) 10 % (24-48) Monocytes (%) (Auto) 10 % (0-9) Eosinophils (%) (Auto) 5 % (0-3) Basophils (%) (Auto) 1 % (0-3) Neutrophils # (Auto) 5.2 x10^3uL (1.8-7.7) Lymphocytes # (Auto) 0.7 x10^3/uL (1.0-4.8) Monocytes # (Auto) 0.7 x10^3/uL (0.0-1.1) Eosinophils # (Auto) 0.4 x10^3/uL (0.0-0.7) Basophils # (Auto) 0.1 x10^3/uL (0.0-0.2) Sodium Level 139 mmol/L (136-145) Potassium Level 4.4 mmol/L (3.5-5.1) Chloride Level 104 mmol/L (98-107) Carbon Dioxide Level 28 mmol/L (21-32) Anion Gap 7 (6-14) Blood Urea Nitrogen 33 mg/dL (8-26) Creatinine 1.2 mg/dL (0.7-1.3) Estimated GFR (Cockcroft-Gault) 61.1 Glucose Level 251 mg/dL (70-99) Calcium Level 9.6 mg/dL (8.5-10.1) Laboratory Tests Test 03/18/17 16:45 03/18/17 20:58 03/19/17 07:02 03/19/17 11:20 Glucose (Fingerstick) 208 mg/dL (70-99) 286 mg/dL (70-99) 165 mg/dL (70-99) 277 mg/dL (70-99) Test 03/19/17 11:31 White Blood Count 7.0 x10^3/uL (4.0-11.0) Red Blood Count 2.54 x10^6/uL (4.30-5.70) Hemoglobin 7.8 g/dL (13.0-17.5) Hematocrit 23.5 % (39.0-53.0) Mean Corpuscular Volume 93 fL (79-100) Mean Corpuscular Hemoglobin 31 pg (25-35) Mean Corpuscular Hemoglobin Concent 33 g/dL (31-37) Red Cell Distribution Width 17.2 % (11.5-14.5) Platelet Count 134 x10^3/uL (140-400) Neutrophils (%) (Auto) 75 % (31-73) Lymphocytes (%) (Auto) 10 % (24-48) Monocytes (%) (Auto) 10 % (0-9) Eosinophils (%) (Auto) 5 % (0-3) Basophils (%) (Auto) 1 % (0-3) Neutrophils # (Auto) 5.2 x10^3uL (1.8-7.7) Lymphocytes # (Auto) 0.7 x10^3/uL (1.0-4.8) Monocytes # (Auto) 0.7 x10^3/uL (0.0-1.1) Eosinophils # (Auto) 0.4 x10^3/uL (0.0-0.7) Basophils # (Auto) 0.1 x10^3/uL (0.0-0.2) Sodium Level 139 mmol/L (136-145) Potassium Level 4.4 mmol/L (3.5-5.1) Chloride Level 104 mmol/L (98-107) Carbon Dioxide Level 28 mmol/L (21-32) Anion Gap 7 (6-14) Blood Urea Nitrogen 33 mg/dL (8-26) Creatinine 1.2 mg/dL (0.7-1.3) Estimated GFR (Cockcroft-Gault) 61.1 Glucose Level 251 mg/dL (70-99) Calcium Level 9.6 mg/dL (8.5-10.1) Medications Current Medications Diphenhydramine HCl (Benadryl) 50 mg 1X ONCE IVP Last administered on 17:11; Start 03/11/17 at 15:30; Stop 03/11/17 at 15:32; Status DC Ondansetron HCl (Zofran) 4 mg PRN Q8HRS PRN IV NAUSEA/VOMITING; Start 03/11/17 at 18:30; Stop 03/12/17 at 18:29; Status DC Morphine Sulfate 4 mg PRN Q2HR PRN IV PAIN; Start 03/11/17 at 18:30; Stop 03/12 at 18:29; Status DC Acetaminophen (Tylenol) 650 mg PRN Q4HRS PRN PO FEVER; Start 03/11/17 at 18:30 ; Stop 03/12/17 at 18:29; Status DC Clopidogrel Bisulfate (Plavix) 75 mg 1X ONCE PO Last administered on 18:48; Start 03/11/17 at 18:30; Stop 03/11/17 at 18:31; Status DC Aspirin (Omkar Aspirin) 325 mg DAILY PO Last administered on 03/19/17 08:30; Start 03/12/17 at 09:00 Atorvastatin Calcium (Lipitor) 20 mg QHS PO Last administered on 03/14/17 21: 28; Start 03/11/17 at 21:00; Stop 03/15/17 at 10:59; Status DC Celecoxib (CeleBREX) 200 mg BID PO Last administered on 03/19/17 08:29; Start 03/11/17 at 21:00 Vitamin D (Vitamin D3) 1,000 unit DAILY PO Last administered on 03/19/17 08:30 ; Start 03/12/17 at 09:00 Clopidogrel Bisulfate (Plavix) 75 mg DAILY PO Last administered on 03/19/17 08 :29; Start 03/12/17 at 09:00 Docusate Sodium (Colace) 100 mg DAILY PO Last administered on 03/19/17 08:29; Start 03/12/17 at 09:00 Fentanyl (Duragesic 75mcg/ Hr Patch) 1 patch Q3DAYS TD Last administered on 08:39; Start 03/12/17 at 09:00 Acetaminophen/ Hydrocodone Bitart (Lortab 7.5/325) 1 tab PRN Q4HRS PRN PO MODERATE PAIN Last administered on 03/18/17 20:43; Start 03/11/17 at 19:30 Losartan Potassium (Cozaar) 50 mg DAILY PO Last administered on 03/19/17 08:28 ; Start 03/12/17 at 09:00 Metformin HCl (Glucophage) 500 mg BIDWMEALS PO Last administered on 03/19/17 08:29; Start 03/12/17 at 08:00 Pantoprazole Sodium (Protonix) 40 mg DAILYAC PO Last administered on 03/19/17 08:29; Start 03/12/17 at 07:30 Tamsulosin HCl (Flomax) 0.4 mg BID PO Last administered on 03/19/17 08:27; Start 03/11/17 at 21:00 Tamsulosin HCl (Flomax) 0.4 mg HS PO ; Start 03/11/17 at 21:00; Status UNV Citalopram Hydrobromide (CeleXA) 40 mg DAILY PO Last administered on 03/19/17 08:30; Start 03/12/17 at 09:00 Gabapentin (Neurontin) 300 mg BID PO Last administered on 03/19/17 08:28; Start 03/11/17 at 21:00 Insulin Detemir (Levemir) 22 units QHS SQ Last administered on 03/18/17 22:36 ; Start 03/11/17 at 21:00; Stop 03/19/17 at 09:34; Status DC Non-Formulary Medication 3.375 gm Q6HRS IV ; Start 03/12/17 at 00:00; Status UNV Insulin Aspart (NovoLOG) TIDWMEALS SQ Last administered on 03/19/17 08:38; Start 03/12/17 at 08:00 Dextrose (Dextrose 50%-Water Syringe) 12.5 gm PRN Q15MIN PRN IV SEE COMMENTS; Start 03/11/17 at 19:30 Piperacillin Sod/ Tazobactam Sod 3.375 gm/Sodium Chloride 50 ml @ 100 mls/hr Q6HRS IV Last administered on 03/15/17 05:39; Start 03/12/17 at 00:00; Stop 03/15/17 at 08:19; Status DC Hydromorphone HCl (Dilaudid) 0.5 mg PRN Q3HRS PRN IVP SEVERE PAIN Last administered on 03/12/17 07:55; Start 03/11/17 at 23:15 Albuterol/ Ipratropium (Duoneb) 3 ml RTQID NEB Last administered on 03/19/17 07:52; Start 03/12/17 at 08:00 Albuterol Sulfate (Ventolin Neb Soln) 2.5 mg PRN Q4HRS PRN NEB SHORTNESS OF BREATH Last administered on 03/18/17 00:23; Start 03/12/17 at 06:00 Nystatin (Nystop) 1 rae BID TP Last administered on 03/18/17 08:49; Start at 09:00 Magnesium Sulfate/ Dextrose 50 ml @ 25 mls/hr 1X ONCE IV Last administered on 03/13/17 18:31; Start 03/13/17 at 18:15; Stop 03/14/17 at 13:16; Status DC Magnesium Sulfate/ Dextrose 50 ml @ 25 mls/hr 1X ONCE IV ; Start 03/14/17 at 13 :00; Stop 03/14/17 at 14:59; Status DC Cefepime HCl 2 gm/ Sodium Chloride 100 ml @ 200 mls/hr Q8HRS IV Last administered on 03/19/17 05:25; Start 03/15/17 at 09:00 Atorvastatin Calcium (Lipitor) 40 mg QHS PO Last administered on 03/18/17 20: 43; Start 03/15/17 at 21:00 Alteplase, Recombinant (Cathflo) 2 mg 1X ONCE INT CAT Last administered on 14:26; Start 03/16/17 at 11:15; Stop 03/16/17 at 11:18; Status DC Ascorbic Acid (Vitamin C) 500 mg BID PO Last administered on 03/19/17 08:28; Start 03/17/17 at 21:00 Multivitamins (Thera M Plus) 1 tab DAILY PO Last administered on 03/19/17 08: 30; Start 03/18/17 at 09:00 Magnesium Citrate (Citroma) 296 ml 1X ONCE PO ; Start 03/18/17 at 11:15; Stop 03/18/17 at 11:16; Status DC Insulin Detemir (Levemir) 28 units QHS SQ ; Start 03/19/17 at 21:00 Alteplase, Recombinant (Cathflo) 2 mg 1X ONCE INT CAT Last administered on 09:58; Start 03/19/17 at 10:00; Stop 03/19/17 at 10:01; Status DC Ferrous Sulfate (Feosol) 325 mg QHS PO ; Start 03/19/17 at 21:00 Active Scripts Active Hydrocodone-Apap 7.5-325 (Hydrocodone Bit/Acetaminophen) 1 Each Tablet 1 Tab PO PRN Q4HRS PRN Reported Tamsulosin Hcl 0.4 Mg Cap.er.24h 1 Cap PO DAILY Zosyn 3.375 Gm Galaxy Bag (Xrufqttkvjyy-Kjfz-Wktshljs,Iso) 3.375 Gm/50 Ml Froz.piggy 3.375 Gm IV Q6HRS Novolog (Insulin Aspart) 100 Unit/1 Ml Cartridge 15 Unit SQ TIDAC Pantoprazole Sodium 40 Mg Tablet.dr 40 Mg PO DAILY Levemir (Insulin Detemir) 100 Unit/1 Ml Vial 22 Unit SQ HS FENTANYL 75mcg/hr (Fentanyl) 1 Each Patch.td72 1 Patch TP Q3DAYS Colace (Docusate Sodium) 100 Mg Capsule 1 Cap PO DAILY Aspirin 325 Mg Tablet 1 Tab PO DAILY Vitamin D3 (Cholecalciferol (Vitamin D3)) 1,000 Unit Tablet 1 Tab PO DAILY Losartan Potassium 50 Mg Tablet 50 Mg PO DAILY Gabapentin 300 Mg Capsule 300 Mg PO BID Celebrex (Celecoxib) 200 Mg Capsule 200 Mg PO BID 30 Days Citalopram Hbr (Citalopram Hydrobromide) 40 Mg Tablet 40 Mg PO DAILY Lipitor (Atorvastatin Calcium) 20 Mg Tablet 20 Mg PO QHS Flomax (Tamsulosin Hcl) 0.4 Mg Cap.er.24h 0.4 Mg PO HS Metformin Hcl 500 Mg Tablet 500 Mg PO BID Plavix (Clopidogrel Bisulfate) 75 Mg Tablet 75 Mg PO DAILY Vitals/I & O Vital Sign - Last 24 Hours 03/18/17 03/18/17 03/18/17 03/18/17 13:31 14:31 14:45 15:55 Temp 97.9 97.9 Pulse 81 Resp 20 B/P (MAP) 143/80 (101) Pulse Ox 91 97 97 O2 Delivery Nasal Cannula Nasal Cannula Nasal Cannula Nasal Cannula O2 Flow Rate 2.0 2.0 2.0 2.0 03/18/17 03/18/17 03/18/17 03/18/17 19:50 20:05 20:07 20:43 Temp 98.2 98.2 Pulse 83 Resp 20 20 B/P (MAP) 123/74 (90) Pulse Ox 97 98 O2 Delivery Nasal Cannula Nasal Cannula Nasal Cannula Nasal Cannula O2 Flow Rate 2.0 2.0 2.0 2.0 03/18/17 03/18/17 03/19/17 03/19/17 21:43 23:31 03:33 07:02 Temp 98.1 97.6 97.8 98.1 97.6 97.8 Pulse 81 80 93 Resp 20 20 18 19 B/P (MAP) 110/61 (77) 136/73 (94) 139/87 (104) Pulse Ox 98 97 96 94 O2 Delivery Nasal Cannula Nasal Cannula Nasal Cannula Room Air O2 Flow Rate 2.0 2.0 2.0 03/19/17 03/19/17 03/19/17 03/19/17 07:53 08:00 08:28 10:38 Temp 97.5 97.5 Pulse 93 85 Resp 20 B/P (MAP) 139/87 138/80 (99) Pulse Ox 96 96 O2 Delivery Nasal Cannula Nasal Cannula Room Air O2 Flow Rate 3.0 3.0 Intake and Output 03/19/17 03/19/17 03/20/17 15:00 23:00 07:00 Intake Total 680 ml Output Total 650 ml Balance 30 ml KAYCE MCKEON MD Mar 19, 2017 12:02
[2017-03-19] MEDS: HYDROcodone/APAP 7.5/325MG 1 TAB TABLET PO PRN (13:16)
[2017-03-19 14:50] VITALS: BP 150/85
[2017-03-19 19:05] VITALS: BP 141/76
[2017-03-19] MEDS: ATORVASTATIN CALCIUM 20 MG TABLET PO SCH (20:53)
[2017-03-19] MEDS: FERROUS SULFATE 325 MG TABLET. PO SCH (20:53)
[2017-03-19] MEDS: INSULIN DETEMIR 300 UNITS/3 ML INSULN.PEN. SQ SCH (20:58)
[2017-03-19 23:10] VITALS: BP 131/71
[2017-03-20] MEDS: HYDROcodone/APAP 7.5/325MG 1 TAB TABLET PO PRN ×2 (01:52→21:30)
[2017-03-20] MEDS: ALBUTEROL SULFATE 2.5 MG/3 ML NEBU. NEB PRN (02:18)
[2017-03-20 03:10] VITALS: BP 138/73
[2017-03-20] MEDS: CEFEPIME HCL 2 GM in IV NORMAL SALINE 100ML 100 ML IV SCH ×3 (06:14→21:30)
[2017-03-20 07:00] VITALS: BP 135/74
[2017-03-20] MEDS: IPRATRPIUM/ALBUTEROL 0.5/2.5MG 3 ML NEBU. NEB SCH ×4 (07:23→19:25)
--- NOTE | 2017-03-20 09:16 | PDOC ---
PROGRESS NOTES Chief Complaint Chief Complaint Fall Aphasia ASSESSMENT AND PLAN: SOB: worsening w/o other respir sx. obtain CT chest 1. Aphasia: appreciate Dr Garvey's input: no evidence of TIA/CVA; thought to be 2ary to metabolic derangements/narcotics. now resolved 2. Ankle fx L: external fixation intact. F/U with Dr Galvin on O/P basis 3. Cellulitis L ankle: cont IV cefepime until 03/31, cont nystatin. O/P weekly CBC/Sed rate/Cr (fax to [phone]). F/u ID office 2 weeks [phone] 4. Anemia: chronic inflammation per anemia labs. 5. M-spike: minimal, 0.1 g/dl free lambda light chain. planned BM bx when physically able to undergo procedure 6. HTN/HLD: continue home meds 7. Hx CVA 8. DM2: on low dose metformin, levemir/ISS. not optimally controlled; increase levemir 9. Peripheral Neuropathy: on neurontin 10. GERD: PPI 11. CKD2: stable creat 12. Depression: on citalopram 13. Dispo: not eligible for SNU per his insurance. not acute rehab candidate either. cannot safely d/c.ed to home with current situation and no one at home to help. d/w CM & SW History of Present Illness History of Present Illness doing ok, relates he has increasing need for inhaler, which he is not using at home, also O2. no cough, stuffy nose sore throat or CP Vitals Vitals Vital Signs Date Time Temp Pulse Resp B/P (MAP) Pulse Ox O2 Delivery O2 Flow Rate FiO2 03/20/17 07:24 98 Nasal Cannula 3.0 03/20/17 07:00 97.9 94 20 135/74 (94) 97.9 Physical Exam General: Alert, Oriented X3 Heart: Regular rate Lungs: Clear Abdomen: Normal bowel sounds, Soft, No tenderness, Other (morbidly obese) Extremities: No clubbing, No cyanosis, Other (left lower extremity external fixator in place) Skin: No rashes, Other (bilat heel wounds covered w/gauze) Labs LABS Laboratory Tests Test 03/19/17 11:20 03/19/17 11:31 03/19/17 16:51 03/19/17 20:53 Glucose (Fingerstick) 277 mg/dL (70-99) 195 mg/dL (70-99) 262 mg/dL (70-99) White Blood Count 7.0 x10^3/uL (4.0-11.0) Red Blood Count 2.54 x10^6/uL (4.30-5.70) Hemoglobin 7.8 g/dL (13.0-17.5) Hematocrit 23.5 % (39.0-53.0) Mean Corpuscular Volume 93 fL (79-100) Mean Corpuscular Hemoglobin 31 pg (25-35) Mean Corpuscular Hemoglobin Concent 33 g/dL (31-37) Red Cell Distribution Width 17.2 % (11.5-14.5) Platelet Count 134 x10^3/uL (140-400) Neutrophils (%) (Auto) 75 % (31-73) Lymphocytes (%) (Auto) 10 % (24-48) Monocytes (%) (Auto) 10 % (0-9) Eosinophils (%) (Auto) 5 % (0-3) Basophils (%) (Auto) 1 % (0-3) Neutrophils # (Auto) 5.2 x10^3uL (1.8-7.7) Lymphocytes # (Auto) 0.7 x10^3/uL (1.0-4.8) Monocytes # (Auto) 0.7 x10^3/uL (0.0-1.1) Eosinophils # (Auto) 0.4 x10^3/uL (0.0-0.7) Basophils # (Auto) 0.1 x10^3/uL (0.0-0.2) Sodium Level 139 mmol/L (136-145) Potassium Level 4.4 mmol/L (3.5-5.1) Chloride Level 104 mmol/L (98-107) Carbon Dioxide Level 28 mmol/L (21-32) Anion Gap 7 (6-14) Blood Urea Nitrogen 33 mg/dL (8-26) Creatinine 1.2 mg/dL (0.7-1.3) Estimated GFR (Cockcroft-Gault) 61.1 Glucose Level 251 mg/dL (70-99) Calcium Level 9.6 mg/dL (8.5-10.1) Test 03/20/17 07:11 Glucose (Fingerstick) 182 mg/dL (70-99) NEVIN LONG MD Mar 20, 2017 09:16
[2017-03-20] MEDS: ASPIRIN 325 MG TABLET PO SCH (09:23)
[2017-03-20] MEDS: ASCORBIC ACID 500 MG TABLET PO SCH ×2 (09:23→21:29)
[2017-03-20] MEDS: PANTOPRAZOLE 40 MG TABLET.DR. PO SCH (09:23)
[2017-03-20] MEDS: GABAPENTIN 300 MG CAPSULE. PO SCH ×2 (09:23→21:29)
[2017-03-20] MEDS: metFORMIN 500 MG TABLET PO SCH ×2 (09:23→18:11)
[2017-03-20] MEDS: CELECOXIB 200 MG CAPSULE. PO SCH ×2 (09:23→21:30)
[2017-03-20] MEDS: CLOPIDOGREL BISULFATE 75 MG TABLET PO SCH (09:23)
[2017-03-20] MEDS: DOCUSATE SODIUM 100 MG CAPSULE. PO SCH (09:23)
[2017-03-20] MEDS: CHOLECALCIFEROL (VITAMIN D3) 1,000 UNIT TABLET PO SCH (09:23)
[2017-03-20] MEDS: LOSARTAN POTASSIUM 50 MG TABLET. PO SCH (09:24)
[2017-03-20] MEDS: CITALOPRAM 20 MG TABLET. PO SCH (09:24)
[2017-03-20] MEDS: NYSTATIN TOPICAL POWDER 15GM BOTTLE. TP SCH ×2 (09:24→18:58)
[2017-03-20] MEDS: MULTIVITAMIN with MINERAL TABLET. PO SCH (09:24)
[2017-03-20] MEDS: TAMSULOSIN 0.4 MG CAP.ER.24H. PO SCH ×2 (09:24→21:29)
[2017-03-20] MEDS: INSULIN ASPART 300 UNITS/3 ML INSULN.PEN SQ SCH ×3 (09:32→18:15)
[2017-03-20 10:49] VITALS: BP 117/70
--- NOTE | 2017-03-20 13:04 | PDOC ---
Infectious Disease Note Subjective Subjective Better Groin rash improving c/o mild let foot pain at times ROS ROS GEN: Denies fevers, chills, sweats HEENT: Denies blurred vision, sore throat CV: Denies chest pain RESP: Denies shortness of air, cough GI: Denies n/v/d NEURO: Denies confusion, dizziness MSK: Denies weakness, joint pain/swelling Vital Sign Vital Signs Vital Signs Date Time Temp Pulse Resp B/P (MAP) Pulse Ox O2 Delivery O2 Flow Rate FiO2 03/20/17 11:08 95 Room Air 03/20/17 10:49 98.0 83 20 117/70 (86) 3.0 98.0 Physical Exam PHYSICAL EXAM GENERAL: NAD, Alert HEENT: PERRL, OC/OP NECK: Supple, no JVD, no LN LUNGS: Clear HEART: S1S2, no gallop, no murmur ABD: Soft, NT, no organomegaly, no rebound EXT: No edema, 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 Ravi previously. S/p PRBCs . Appreciate Dr. Ravi f/u Right calcaneal wound - superficial Encephalopathy, CT neg. improved DM ? Talus fracture left Previous CVA Plan Plan of Care Cont Cefepime for 2 weeks. Weekly CBC/Sed rate/Cr - fax to [phone] Cont Nystatin Leg elevation Supportive care ROLANDO RUIZ MD Mar 20, 2017 13:04
[2017-03-20 15:17] VITALS: BP 134/65
[2017-03-20 19:49] VITALS: BP 141/77
[2017-03-20] MEDS: FERROUS SULFATE 325 MG TABLET. PO SCH (21:30)
[2017-03-20] MEDS: ATORVASTATIN CALCIUM 20 MG TABLET PO SCH (21:30)
[2017-03-20] MEDS: INSULIN DETEMIR 300 UNITS/3 ML INSULN.PEN. SQ SCH (21:35)
[2017-03-20 23:06] VITALS: BP 150/84
[2017-03-21 03:36] VITALS: BP 150/81
[2017-03-21] MEDS: CEFEPIME HCL 2 GM in IV NORMAL SALINE 100ML 100 ML IV SCH ×3 (05:46→21:42)
[2017-03-21 07:00] VITALS: BP 131/78
[2017-03-21] MEDS: IPRATRPIUM/ALBUTEROL 0.5/2.5MG 3 ML NEBU. NEB SCH ×4 (07:51→20:53)
--- NOTE | 2017-03-21 08:48 | RAD ---
CT of the chest without contrast, 03/20/2017: History: Shortness of breath Noncontrast scans were obtained as requested. There is mild calcific plaquing of the thoracic aorta without evidence of aneurysm. Moderate scattered coronary artery calcifications are present. The heart is not enlarged. There is a small amount of pericardial fluid present. A left PICC extends into the left innominate vein near its junction with the superior vena cava. A few small scattered mediastinal lymph nodes are seen without evidence of pathologic enlargement. There are small bilateral pleural effusions, larger on the right. There is mild underlying atelectasis posteriorly in the lung bases, more so on the right. There are a few other scattered linear parenchymal opacities compatible with atelectasis and/or scarring. There are moderate scattered degenerative changes in the spine. The spleen is only partially visualized on this exam, however, it appears to be prominent. IMPRESSION: 1. Small bilateral pleural effusions, right greater than left with mild underlying basilar atelectasis. 2. Moderate coronary artery calcifications. 3. Small pericardial effusion. PQRS Compliance Statement: One or more of the following individualized dose reduction techniques were utilized for this examination: 1. Automated exposure control 2. Adjustment of the mA and/or kV according to patient size 3. Use of iterative reconstruction technique
[2017-03-21] MEDS: CITALOPRAM 20 MG TABLET. PO SCH (09:54)
[2017-03-21] MEDS: DOCUSATE SODIUM 100 MG CAPSULE. PO SCH (09:54)
[2017-03-21] MEDS: CHOLECALCIFEROL (VITAMIN D3) 1,000 UNIT TABLET PO SCH (09:54)
[2017-03-21] MEDS: CELECOXIB 200 MG CAPSULE. PO SCH ×2 (09:54→21:43)
[2017-03-21] MEDS: MULTIVITAMIN with MINERAL TABLET. PO SCH (09:54)
[2017-03-21] MEDS: GABAPENTIN 300 MG CAPSULE. PO SCH ×2 (09:54→21:42)
[2017-03-21] MEDS: fentaNYL 75MCG/HR PATCH 1 PATCH PATCH.TD72 TD SCH (09:54)
[2017-03-21] MEDS: TAMSULOSIN 0.4 MG CAP.ER.24H. PO SCH ×2 (09:55→21:42)
[2017-03-21] MEDS: PANTOPRAZOLE 40 MG TABLET.DR. PO SCH (09:55)
[2017-03-21] MEDS: CLOPIDOGREL BISULFATE 75 MG TABLET PO SCH (09:55)
[2017-03-21] MEDS: ASPIRIN 325 MG TABLET PO SCH (09:55)
[2017-03-21] MEDS: NYSTATIN TOPICAL POWDER 15GM BOTTLE. TP SCH ×2 (09:55→21:43)
[2017-03-21] MEDS: metFORMIN 500 MG TABLET PO SCH ×2 (09:55→18:24)
[2017-03-21] MEDS: ASCORBIC ACID 500 MG TABLET PO SCH ×2 (09:55→21:42)
[2017-03-21] MEDS: LOSARTAN POTASSIUM 50 MG TABLET. PO SCH (09:55)
[2017-03-21] MEDS: INSULIN ASPART 300 UNITS/3 ML INSULN.PEN SQ SCH ×3 (10:00→18:38)
[2017-03-21 11:00] VITALS: BP 145/76
--- NOTE | 2017-03-21 14:24 | PDOC ---
PROGRESS NOTES Chief Complaint Chief Complaint Fall Aphasia ASSESSMENT AND PLAN: SOB: CT chest with small bilat peural effusions, mild pericardial effusion. trial lasix diuresis 1. Aphasia: appreciate Dr Garvey's input: no evidence of TIA/CVA; thought to be 2ary to metabolic derangements/narcotics. now resolved 2. Ankle fx L: external fixation intact. F/U with Dr Galvin on O/P basis 3. Cellulitis L ankle: cont IV cefepime until 03/31, cont nystatin. weekly CBC/Sed rate/Cr (fax to [phone]). F/u ID office 2 weeks [phone] 4. Anemia: chronic inflammation per anemia labs. 5. M-spike: minimal, 0.1 g/dl free lambda light chain. planned BM bx when physically able to undergo procedure 6. HTN/HLD: continue home meds 7. Hx CVA 8. DM2: on low dose metformin, levemir/ISS. not optimally controlled; increase levemir 9. Peripheral Neuropathy: on neurontin 10. GERD: PPI 11. CKD2: stable creat 12. Depression: on citalopram 13. Dispo: not eligible for SNU per his insurance. not acute rehab candidate either with non-weightbaring bilat. cannot safely d/c.ed to home with current situation and no one at home to help. History of Present Illness History of Present Illness unchanged Vitals Vitals Vital Signs Date Time Temp Pulse Resp B/P (MAP) Pulse Ox O2 Delivery O2 Flow Rate FiO2 03/21/17 11:40 Nasal Cannula 2.0 03/21/17 11:00 97.9 89 20 145/76 (99) 99 97.9 Physical Exam General: Alert, Oriented X3 Heart: Regular rate Lungs: Clear Abdomen: Normal bowel sounds, Soft, No tenderness, Other (morbidly obese) Extremities: Other (left lower extremity external fixator in place) Skin: No rashes, Other (bilat heel wounds covered w/gauze) Labs LABS Laboratory Tests Test 03/20/17 16:41 03/20/17 21:21 03/21/17 07:03 03/21/17 12:00 Glucose (Fingerstick) 202 mg/dL (70-99) 226 mg/dL (70-99) 177 mg/dL (70-99) 179 mg/dL (70-99) NEVIN LONG MD Mar 21, 2017 14:23
[2017-03-21 15:05] VITALS: BP 128/72
[2017-03-21] MEDS: FUROSEMIDE 20 MG TABLET PO SCH (15:09)
[2017-03-21 19:00] VITALS: BP 149/78
[2017-03-21] MEDS: FERROUS SULFATE 325 MG TABLET. PO SCH (21:43)
[2017-03-21] MEDS: ATORVASTATIN CALCIUM 20 MG TABLET PO SCH (21:43)
[2017-03-21] MEDS: INSULIN DETEMIR 300 UNITS/3 ML INSULN.PEN. SQ SCH (21:50)
[2017-03-21 23:22] VITALS: BP 134/77
[2017-03-22] MEDS: ALBUTEROL SULFATE 2.5 MG/3 ML NEBU. NEB PRN (03:41)
[2017-03-22 03:59] VITALS: BP 136/75
[2017-03-22] MEDS: CEFEPIME HCL 2 GM in IV NORMAL SALINE 100ML 100 ML IV SCH ×3 (05:29→22:16)
[2017-03-22 06:40] LABS: BASO # 0.1 x10^3/uL (0.0-0.2); BASO % 1 % (0-3); EOS % 5 % (0-3); HEMOGLOBIN 7.1 g/dL (13.0-17.5); LYMPH # 0.7 x10^3/uL (1.0-4.8); LYMPH % 9 % (24-48); MEAN CORPUSCULAR HEMOGLOBIN 31 pg (25-35); MEAN CORPUSCULAR HGB CONC 34 g/dL (31-37); MEAN CORPUSCULAR VOLUME 91 fL (79-100); MONO % 9 % (0-9); NEUT % 76 % (31-73); PLATELET COUNT 117 x10^3/uL (140-400); RED BLOOD COUNT 2.29 x10^6/uL (4.30-5.70); RED CELL DISTRIBUTION WIDTH 17.3 % (11.5-14.5); WHITE BLOOD COUNT 7.2 x10^3/uL (4.0-11.0)
[2017-03-22 06:54] LABS: CALCIUM 9.8 mg/dL (8.5-10.1); GFR 75.5; MAGNESIUM 1.7 mg/dL (1.8-2.4); POTASSIUM 4.2 mmol/L (3.5-5.1)
[2017-03-22 07:00] VITALS: BP 120/68
[2017-03-22 07:12] LABS: HEMATOCRIT 20.8 % (39.0-53.0)
[2017-03-22] MEDS: IPRATRPIUM/ALBUTEROL 0.5/2.5MG 3 ML NEBU. NEB SCH ×4 (08:16→19:52)
--- NOTE | 2017-03-22 08:58 | PDOC ---
Infectious Disease Note Subjective Subjective feeling good ROS ROS GEN: Denies fevers, chills, sweats HEENT: Denies blurred vision, sore throat CV: Denies chest pain RESP: Denies shortness of air, cough GI: Denies n/v/d NEURO: Denies confusion, dizziness Vital Sign Vital Signs Vital Signs Date Time Temp Pulse Resp B/P (MAP) Pulse Ox O2 Delivery O2 Flow Rate FiO2 03/22/17 08:18 97 Room Air 03/22/17 07:00 98.5 83 20 120/68 (85) 2.0 98.5 Physical Exam PHYSICAL EXAM GENERAL: NAD, Alert HEENT: PERRL, OC/OP NECK: Supple, no JVD, no LN LUNGS: Clear HEART: S1S2, no gallop, no murmur ABD: Soft, NT, no organomegaly, no rebound EXT: No edema, no cyanosis,, ext fixator in place, drainage from left ankle wound [employer]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, 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, no focal neurologic deficit SKIN: No rash IV: ok Labs Lab Laboratory Tests Test 03/21/17 12:00 03/21/17 16:39 03/21/17 21:43 03/22/17 06:20 Glucose (Fingerstick) 179 mg/dL (70-99) 177 mg/dL (70-99) 222 mg/dL (70-99) White Blood Count 7.2 x10^3/uL (4.0-11.0) Red Blood Count 2.29 x10^6/uL (4.30-5.70) Hemoglobin 7.1 g/dL (13.0-17.5) Hematocrit 20.8 % (39.0-53.0) Mean Corpuscular Volume 91 fL (79-100) Mean Corpuscular Hemoglobin 31 pg (25-35) Mean Corpuscular Hemoglobin Concent 34 g/dL (31-37) Red Cell Distribution Width 17.3 % (11.5-14.5) Platelet Count 117 x10^3/uL (140-400) Neutrophils (%) (Auto) 76 % (31-73) Lymphocytes (%) (Auto) 9 % (24-48) Monocytes (%) (Auto) 9 % (0-9) Eosinophils (%) (Auto) 5 % (0-3) Basophils (%) (Auto) 1 % (0-3) Neutrophils # (Auto) 5.5 x10^3uL (1.8-7.7) Lymphocytes # (Auto) 0.7 x10^3/uL (1.0-4.8) Monocytes # (Auto) 0.7 x10^3/uL (0.0-1.1) Eosinophils # (Auto) 0.3 x10^3/uL (0.0-0.7) Basophils # (Auto) 0.1 x10^3/uL (0.0-0.2) Sodium Level 141 mmol/L (136-145) Potassium Level 4.2 mmol/L (3.5-5.1) Chloride Level 106 mmol/L (98-107) Carbon Dioxide Level 27 mmol/L (21-32) Anion Gap 8 (6-14) Blood Urea Nitrogen 30 mg/dL (8-26) Creatinine 1.0 mg/dL (0.7-1.3) Estimated GFR (Cockcroft-Gault) 75.5 Glucose Level 166 mg/dL (70-99) Calcium Level 9.8 mg/dL (8.5-10.1) Magnesium Level 1.7 mg/dL (1.8-2.4) Test 03/22/17 07:12 Glucose (Fingerstick) 157 mg/dL (70-99) Objective Assessment Left ankle infection -hx proteus, PSA, Enterococcus and MSSA Left foot infection Anemia - for several months - evaluated by Dr. Ravi previously. S/p PRBCs . Appreciate Dr. Ravi f/u Right calcaneal wound - superficial Encephalopathy, CT neg. improved DM ? Talus fracture left Previous CVA Plan Plan of Care Cont Cefepime Weekly CBC/Sed rate/Cr - fax to [phone] Cont Nystatin Leg elevation Supportive care ROLANDO RUIZ MD Mar 22, 2017 08:58
[2017-03-22] MEDS: NYSTATIN TOPICAL POWDER 15GM BOTTLE. TP SCH ×2 (09:00→22:21)
[2017-03-22] MEDS: DOCUSATE SODIUM 100 MG CAPSULE. PO SCH (09:18)
[2017-03-22] MEDS: CLOPIDOGREL BISULFATE 75 MG TABLET PO SCH (09:18)
[2017-03-22] MEDS: CITALOPRAM 20 MG TABLET. PO SCH (09:18)
[2017-03-22] MEDS: GABAPENTIN 300 MG CAPSULE. PO SCH ×2 (09:18→22:13)
[2017-03-22] MEDS: metFORMIN 500 MG TABLET PO SCH ×2 (09:18→17:50)
[2017-03-22] MEDS: PANTOPRAZOLE 40 MG TABLET.DR. PO SCH (09:18)
[2017-03-22] MEDS: TAMSULOSIN 0.4 MG CAP.ER.24H. PO SCH ×2 (09:18→22:13)
[2017-03-22] MEDS: ASPIRIN 325 MG TABLET PO SCH (09:18)
[2017-03-22] MEDS: ASCORBIC ACID 500 MG TABLET PO SCH ×2 (09:18→22:14)
[2017-03-22] MEDS: CELECOXIB 200 MG CAPSULE. PO SCH ×2 (09:18→22:14)
[2017-03-22] MEDS: FUROSEMIDE 20 MG TABLET PO SCH (09:19)
[2017-03-22] MEDS: CHOLECALCIFEROL (VITAMIN D3) 1,000 UNIT TABLET PO SCH (09:19)
[2017-03-22] MEDS: MULTIVITAMIN with MINERAL TABLET. PO SCH (09:19)
[2017-03-22] MEDS: LOSARTAN POTASSIUM 50 MG TABLET. PO SCH (09:22)
[2017-03-22] MEDS: INSULIN ASPART 300 UNITS/3 ML INSULN.PEN SQ SCH ×3 (09:27→17:56)
--- NOTE | 2017-03-22 10:09 | PDOC ---
PROGRESS NOTES Chief Complaint Chief Complaint Fall Aphasia ASSESSMENT AND PLAN: SOB: CT chest with small bilat peural effusions, mild pericardial effusion. breathing improved with lasix diuresis. 1. Aphasia: appreciate Dr Garvey's input: no evidence of TIA/CVA; thought to be 2ary to metabolic derangements/narcotics. now resolved 2. Ankle fx L: external fixation intact. F/U with Dr Galvin on O/P basis 3. Cellulitis L ankle: cont IV cefepime until 03/31, cont nystatin. weekly CBC/Sed rate/Cr (fax to [phone]). F/u ID office 2 weeks [phone] 4. Anemia: chronic inflammation per anemia labs. 5. M-spike: minimal, 0.1 g/dl free lambda light chain. planned BM bx when physically able to undergo procedure 6. HTN/HLD: continue home meds 7. Hx CVA 8. DM2: on low dose metformin, levemir/ISS. not optimally controlled; increase levemir 9. Peripheral Neuropathy: on neurontin 10. GERD: PPI 11. CKD2: stable creat 12. Depression: on citalopram 13. Dispo: not eligible for SNU per his insurance. not acute rehab candidate either with non-weightbearing bilat. cannot safely d/c.ed to home with current situation and no one at home to help. History of Present Illness History of Present Illness feels good today. sitting in wheelchair. pain controlled Vitals Vitals Vital Signs Date Time Temp Pulse Resp B/P (MAP) Pulse Ox O2 Delivery O2 Flow Rate FiO2 03/22/17 09:22 83 120/68 03/22/17 08:18 97 Room Air 03/22/17 07:00 98.5 20 2.0 98.5 Physical Exam General: Alert, Oriented X3 Heart: Regular rate Lungs: Clear Abdomen: Normal bowel sounds, Soft, No tenderness, Other (morbidly obese) Extremities: Other (left lower extremity external fixator in place) Skin: No rashes, Other (bilat heel wounds covered w/gauze) Labs LABS Laboratory Tests Test 03/21/17 12:00 03/21/17 16:39 03/21/17 21:43 03/22/17 06:20 Glucose (Fingerstick) 179 mg/dL (70-99) 177 mg/dL (70-99) 222 mg/dL (70-99) White Blood Count 7.2 x10^3/uL (4.0-11.0) Red Blood Count 2.29 x10^6/uL (4.30-5.70) Hemoglobin 7.1 g/dL (13.0-17.5) Hematocrit 20.8 % (39.0-53.0) Mean Corpuscular Volume 91 fL (79-100) Mean Corpuscular Hemoglobin 31 pg (25-35) Mean Corpuscular Hemoglobin Concent 34 g/dL (31-37) Red Cell Distribution Width 17.3 % (11.5-14.5) Platelet Count 117 x10^3/uL (140-400) Neutrophils (%) (Auto) 76 % (31-73) Lymphocytes (%) (Auto) 9 % (24-48) Monocytes (%) (Auto) 9 % (0-9) Eosinophils (%) (Auto) 5 % (0-3) Basophils (%) (Auto) 1 % (0-3) Neutrophils # (Auto) 5.5 x10^3uL (1.8-7.7) Lymphocytes # (Auto) 0.7 x10^3/uL (1.0-4.8) Monocytes # (Auto) 0.7 x10^3/uL (0.0-1.1) Eosinophils # (Auto) 0.3 x10^3/uL (0.0-0.7) Basophils # (Auto) 0.1 x10^3/uL (0.0-0.2) Sodium Level 141 mmol/L (136-145) Potassium Level 4.2 mmol/L (3.5-5.1) Chloride Level 106 mmol/L (98-107) Carbon Dioxide Level 27 mmol/L (21-32) Anion Gap 8 (6-14) Blood Urea Nitrogen 30 mg/dL (8-26) Creatinine 1.0 mg/dL (0.7-1.3) Estimated GFR (Cockcroft-Gault) 75.5 Glucose Level 166 mg/dL (70-99) Calcium Level 9.8 mg/dL (8.5-10.1) Magnesium Level 1.7 mg/dL (1.8-2.4) Test 10//17 07:12 Glucose (Fingerstick) 157 mg/dL (70-99) NEVIN LONG MD Mar 22, 2017 10:09
[2017-03-22 10:42] VITALS: BP 123/70
[2017-03-22] MEDS ORDERED: ALTEPLASE 25 MG in IV NORMAL SALINE 250ML 250 ML IV SCH (11:45)
[2017-03-22] MEDS ORDERED: ALTEPLASE 2 MG VIAL INT CAT ONE ×2 (12:00→12:15)
--- NOTE | 2017-03-22 12:35 | PDOC ---
PROGRESS NOTES Subjective Subjective HPI - f/u of anemia ROS - no bleed Objective Objective Vital Signs Date Time Temp Pulse Resp B/P (MAP) Pulse Ox O2 Delivery O2 Flow Rate FiO2 03/22/17 12:11 98 Room Air 03/22/17 10:42 97.9 83 20 123/70 (87) 97.9 03/22/17 08:00 2.0 Physical Exam Heart: Normal S1, Normal S2 General: Alert, Oriented X3, No acute distress Lungs: Clear to auscultation Neuro: Normal speech Psych/Mental Status: Mental status NL Assessment Assessment IMPRESSION AND PLAN: 1. Anemia. Iron studies are suggestive of anemia due to chronic disease. He has multiple comorbid conditions. He has persistent left heel wound and he has noticed some bleeding from that occasionally. I suspect that the etiology of anemia is due to chronic disease and chronic left heel wound. I will continue to monitor hemoglobin and transfuse as needed. His reticulocyte count is 1.5 and hence I do not suspect hemolysis. His iron studies, B12 and folic acid do not reveal any deficiencies. His differential count is unremarkable and there is no evidence of immature white cells to suggest leukemia. It is very unlikely that he has a primary bone marrow disorder. Bone marrow biopsy would be reasonable to consider when he is able to lie down. The patient has external fixation apparatus in the left leg. This will be difficult to perform at this time and it is not an emergency. He does have a M-spike noted during his prior labs and hence a bone marrow biopsy would be reasonable to be performed when possible. s/p 1 PRBC 03/15/17 Hb now 7.1 Monitor cbc and transfuse as needed. 2. 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 Plan for a bone marrow aspiration and biopsy when he is unable to tolerate. 3. Left heel wound. Appreciate management per Infectious Diseases. I discussed with Dr. Chente Luo. He has been started on cefepime. 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 Comment Review of Relevant I have reviewed the following items lauryn (where applicable) has been applied. Labs Laboratory Tests Test 03/20/17 16:41 03/20/17 21:21 03/21/17 07:03 03/21/17 12:00 Glucose (Fingerstick) 202 mg/dL (70-99) 226 mg/dL (70-99) 177 mg/dL (70-99) 179 mg/dL (70-99) Test 03/21/17 16:39 03/21/17 21:43 03/22/17 06:20 03/22/17 07:12 Glucose (Fingerstick) 177 mg/dL (70-99) 222 mg/dL (70-99) 157 mg/dL (70-99) White Blood Count 7.2 x10^3/uL (4.0-11.0) Red Blood Count 2.29 x10^6/uL (4.30-5.70) Hemoglobin 7.1 g/dL (13.0-17.5) Hematocrit 20.8 % (39.0-53.0) Mean Corpuscular Volume 91 fL (79-100) Mean Corpuscular Hemoglobin 31 pg (25-35) Mean Corpuscular Hemoglobin Concent 34 g/dL (31-37) Red Cell Distribution Width 17.3 % (11.5-14.5) Platelet Count 117 x10^3/uL (140-400) Neutrophils (%) (Auto) 76 % (31-73) Lymphocytes (%) (Auto) 9 % (24-48) Monocytes (%) (Auto) 9 % (0-9) Eosinophils (%) (Auto) 5 % (0-3) Basophils (%) (Auto) 1 % (0-3) Neutrophils # (Auto) 5.5 x10^3uL (1.8-7.7) Lymphocytes # (Auto) 0.7 x10^3/uL (1.0-4.8) Monocytes # (Auto) 0.7 x10^3/uL (0.0-1.1) Eosinophils # (Auto) 0.3 x10^3/uL (0.0-0.7) Basophils # (Auto) 0.1 x10^3/uL (0.0-0.2) Sodium Level 141 mmol/L (136-145) Potassium Level 4.2 mmol/L (3.5-5.1) Chloride Level 106 mmol/L (98-107) Carbon Dioxide Level 27 mmol/L (21-32) Anion Gap 8 (6-14) Blood Urea Nitrogen 30 mg/dL (8-26) Creatinine 1.0 mg/dL (0.7-1.3) Estimated GFR (Cockcroft-Gault) 75.5 Glucose Level 166 mg/dL (70-99) Calcium Level 9.8 mg/dL (8.5-10.1) Magnesium Level 1.7 mg/dL (1.8-2.4) Test 03/22/17 12:01 Glucose (Fingerstick) 193 mg/dL (70-99) Laboratory Tests Test 03/21/17 16:39 03/21/17 21:43 03/22/17 06:20 03/22/17 07:12 Glucose (Fingerstick) 177 mg/dL (70-99) 222 mg/dL (70-99) 157 mg/dL (70-99) White Blood Count 7.2 x10^3/uL (4.0-11.0) Red Blood Count 2.29 x10^6/uL (4.30-5.70) Hemoglobin 7.1 g/dL (13.0-17.5) Hematocrit 20.8 % (39.0-53.0) Mean Corpuscular Volume 91 fL (79-100) Mean Corpuscular Hemoglobin 31 pg (25-35) Mean Corpuscular Hemoglobin Concent 34 g/dL (31-37) Red Cell Distribution Width 17.3 % (11.5-14.5) Platelet Count 117 x10^3/uL (140-400) Neutrophils (%) (Auto) 76 % (31-73) Lymphocytes (%) (Auto) 9 % (24-48) Monocytes (%) (Auto) 9 % (0-9) Eosinophils (%) (Auto) 5 % (0-3) Basophils (%) (Auto) 1 % (0-3) Neutrophils # (Auto) 5.5 x10^3uL (1.8-7.7) Lymphocytes # (Auto) 0.7 x10^3/uL (1.0-4.8) Monocytes # (Auto) 0.7 x10^3/uL (0.0-1.1) Eosinophils # (Auto) 0.3 x10^3/uL (0.0-0.7) Basophils # (Auto) 0.1 x10^3/uL (0.0-0.2) Sodium Level 141 mmol/L (136-145) Potassium Level 4.2 mmol/L (3.5-5.1) Chloride Level 106 mmol/L (98-107) Carbon Dioxide Level 27 mmol/L (21-32) Anion Gap 8 (6-14) Blood Urea Nitrogen 30 mg/dL (8-26) Creatinine 1.0 mg/dL (0.7-1.3) Estimated GFR (Cockcroft-Gault) 75.5 Glucose Level 166 mg/dL (70-99) Calcium Level 9.8 mg/dL (8.5-10.1) Magnesium Level 1.7 mg/dL (1.8-2.4) Test 03/22/17 12:01 Glucose (Fingerstick) 193 mg/dL (70-99) Medications Current Medications Diphenhydramine HCl (Benadryl) 50 mg 1X ONCE IVP Last administered on 17:11; Start 03/11/17 at 15:30; Stop 03/11/17 at 15:32; Status DC Ondansetron HCl (Zofran) 4 mg PRN Q8HRS PRN IV NAUSEA/VOMITING; Start 03/11/17 at 18:30; Stop 03/12/17 at 18:29; Status DC Morphine Sulfate 4 mg PRN Q2HR PRN IV PAIN; Start 03/11/17 at 18:30; Stop 03/12 at 18:29; Status DC Acetaminophen (Tylenol) 650 mg PRN Q4HRS PRN PO FEVER; Start 03/11/17 at 18:30 ; Stop 03/12/17 at 18:29; Status DC Clopidogrel Bisulfate (Plavix) 75 mg 1X ONCE PO Last administered on 18:48; Start 03/11/17 at 18:30; Stop 03/11/17 at 18:31; Status DC Aspirin (Omkar Aspirin) 325 mg DAILY PO Last administered on 03/22/17 09:18; Start 03/12/17 at 09:00 Atorvastatin Calcium (Lipitor) 20 mg QHS PO Last administered on 03/14/17 21: 28; Start 03/11/17 at 21:00; Stop 03/15/17 at 10:59; Status DC Celecoxib (CeleBREX) 200 mg BID PO Last administered on 03/22/17 09:18; Start 03/11/17 at 21:00 Vitamin D (Vitamin D3) 1,000 unit DAILY PO Last administered on 03/22/17 09:19 ; Start 03/12/17 at 09:00 Clopidogrel Bisulfate (Plavix) 75 mg DAILY PO Last administered on 03/22/17 09 :18; Start 03/12/17 at 09:00 Docusate Sodium (Colace) 100 mg DAILY PO Last administered on 03/22/17 09:18; Start 03/12/17 at 09:00 Fentanyl (Duragesic 75mcg/ Hr Patch) 1 patch Q3DAYS TD Last administered on 09:54; Start 03/12/17 at 09:00 Acetaminophen/ Hydrocodone Bitart (Lortab 7.5/325) 1 tab PRN Q4HRS PRN PO MODERATE PAIN Last administered on 03/20/17 21:30; Start 03/11/17 at 19:30 Losartan Potassium (Cozaar) 50 mg DAILY PO Last administered on 03/22/17 09:22 ; Start 03/12/17 at 09:00 Metformin HCl (Glucophage) 500 mg BIDWMEALS PO Last administered on 03/22/17 09:18; Start 03/12/17 at 08:00 Pantoprazole Sodium (Protonix) 40 mg DAILYAC PO Last administered on 03/22/17 09:18; Start 03/12/17 at 07:30 Tamsulosin HCl (Flomax) 0.4 mg BID PO Last administered on 03/22/17 09:18; Start 03/11/17 at 21:00 Tamsulosin HCl (Flomax) 0.4 mg HS PO ; Start 03/11/17 at 21:00; Status UNV Citalopram Hydrobromide (CeleXA) 40 mg DAILY PO Last administered on 03/22/17 09:18; Start 03/12/17 at 09:00 Gabapentin (Neurontin) 300 mg BID PO Last administered on 03/22/17 09:18; Start 03/11/17 at 21:00 Insulin Detemir (Levemir) 22 units QHS SQ Last administered on 03/18/17 22:36 ; Start 03/11/17 at 21:00; Stop 03/19/17 at 09:34; Status DC Non-Formulary Medication 3.375 gm Q6HRS IV ; Start 03/12/17 at 00:00; Status UNV Insulin Aspart (NovoLOG) TIDWMEALS SQ Last administered on 03/22/17 09:27; Start 03/12/17 at 08:00 Dextrose (Dextrose 50%-Water Syringe) 12.5 gm PRN Q15MIN PRN IV SEE COMMENTS; Start 03/11/17 at 19:30 Piperacillin Sod/ Tazobactam Sod 3.375 gm/Sodium Chloride 50 ml @ 100 mls/hr Q6HRS IV Last administered on 03/15/17 05:39; Start 03/12/17 at 00:00; Stop 03/15/17 at 08:19; Status DC Hydromorphone HCl (Dilaudid) 0.5 mg PRN Q3HRS PRN IVP SEVERE PAIN Last administered on 03/12/17 07:55; Start 03/11/17 at 23:15 Albuterol/ Ipratropium (Duoneb) 3 ml RTQID NEB Last administered on 03/22/17 12:10; Start 03/12/17 at 08:00 Albuterol Sulfate (Ventolin Neb Soln) 2.5 mg PRN Q4HRS PRN NEB SHORTNESS OF BREATH Last administered on 03/22/17 03:41; Start 03/12/17 at 06:00 Nystatin (Nystop) 1 rae BID TP Last administered on 03/18/17 08:49; Start at 09:00 Magnesium Sulfate/ Dextrose 50 ml @ 25 mls/hr 1X ONCE IV Last administered on 03/13/17 18:31; Start 03/13/17 at 18:15; Stop 03/14/17 at 13:16; Status DC Magnesium Sulfate/ Dextrose 50 ml @ 25 mls/hr 1X ONCE IV ; Start 03/14/17 at 13 :00; Stop 03/14/17 at 14:59; Status DC Cefepime HCl 2 gm/ Sodium Chloride 100 ml @ 200 mls/hr Q8HRS IV Last administered on 03/22/17 05:29; Start 03/15/17 at 09:00 Atorvastatin Calcium (Lipitor) 40 mg QHS PO Last administered on 03/21/17 21: 43; Start 03/15/17 at 21:00 Alteplase, Recombinant (Cathflo) 2 mg 1X ONCE INT CAT Last administered on 14:26; Start 03/16/17 at 11:15; Stop 03/16/17 at 11:18; Status DC Ascorbic Acid (Vitamin C) 500 mg BID PO Last administered on 03/22/17 09:18; Start 03/17/17 at 21:00 Multivitamins (Thera M Plus) 1 tab DAILY PO Last administered on 03/22/17 09: 19; Start 03/18/17 at 09:00 Magnesium Citrate (Citroma) 296 ml 1X ONCE PO ; Start 03/18/17 at 11:15; Stop 03/18/17 at 11:16; Status DC Insulin Detemir (Levemir) 28 units QHS SQ Last administered on 03/21/17 21:50 ; Start 03/19/17 at 21:00 Alteplase, Recombinant (Cathflo) 2 mg 1X ONCE INT CAT Last administered on 09:58; Start 03/19/17 at 10:00; Stop 03/19/17 at 10:01; Status DC Ferrous Sulfate (Feosol) 325 mg QHS PO Last administered on 03/21/17 21:43; Start 03/19/17 at 21:00 Furosemide (Lasix) 20 mg DAILY PO Last administered on 03/22/17 09:19; Start 03/21/17 at 14:30 Alteplase, Recombinant 25 mg/ Sodium Chloride 250 ml @ 10 mls/hr Q25H IV ; Start 03/22/17 at 11:45; Status UNV Alteplase, Recombinant (Cathflo) 2 mg 1X ONCE INT CAT ; Start 03/22/17 at 12:00 ; Stop 03/22/17 at 12:01; Status DC Alteplase, Recombinant (Cathflo) 4 mg 1X ONCE INT CAT ; Start 03/22/17 at 12:15 ; Stop 03/22/17 at 12:16; Status DC Active Scripts Active Hydrocodone-Apap 7.5-325 (Hydrocodone Bit/Acetaminophen) 1 Each Tablet 1 Tab PO PRN Q4HRS PRN Reported Tamsulosin Hcl 0.4 Mg Cap.er.24h 1 Cap PO DAILY Zosyn 3.375 Gm Galaxy Bag (Rftbnzfnpxug-Hlsr-Jbprjwyu,Iso) 3.375 Gm/50 Ml Froz.piggy 3.375 Gm IV Q6HRS Novolog (Insulin Aspart) 100 Unit/1 Ml Cartridge 15 Unit SQ TIDAC Pantoprazole Sodium 40 Mg Tablet.dr 40 Mg PO DAILY Levemir (Insulin Detemir) 100 Unit/1 Ml Vial 22 Unit SQ HS FENTANYL 75mcg/hr (Fentanyl) 1 Each Patch.td72 1 Patch TP Q3DAYS Colace (Docusate Sodium) 100 Mg Capsule 1 Cap PO DAILY Aspirin 325 Mg Tablet 1 Tab PO DAILY Vitamin D3 (Cholecalciferol (Vitamin D3)) 1,000 Unit Tablet 1 Tab PO DAILY Losartan Potassium 50 Mg Tablet 50 Mg PO DAILY Gabapentin 300 Mg Capsule 300 Mg PO BID Celebrex (Celecoxib) 200 Mg Capsule 200 Mg PO BID 30 Days Citalopram Hbr (Citalopram Hydrobromide) 40 Mg Tablet 40 Mg PO DAILY Lipitor (Atorvastatin Calcium) 20 Mg Tablet 20 Mg PO QHS Flomax (Tamsulosin Hcl) 0.4 Mg Cap.er.24h 0.4 Mg PO HS Metformin Hcl 500 Mg Tablet 500 Mg PO BID Plavix (Clopidogrel Bisulfate) 75 Mg Tablet 75 Mg PO DAILY Vitals/I & O Vital Sign - Last 24 Hours 03/21/17 03/21/17 03/21/17 03/21/17 15:05 16:31 19:00 20:00 Temp 98.1 98.2 98.1 98.2 Pulse 90 90 Resp 20 20 B/P (MAP) 128/72 (90) 149/78 (101) Pulse Ox 96 97 95 O2 Delivery Nasal Cannula Nasal Cannula Room Air Nasal Cannula O2 Flow Rate 2.0 2.0 2.0 03/21/17 03/21/17 03/22/17 03/22/17 20:54 23:22 03:42 03:59 Temp 97.5 97.5 97.5 97.5 Pulse 91 85 Resp 20 20 B/P (MAP) 134/77 (96) 136/75 (95) Pulse Ox 93 97 O2 Delivery Nasal Cannula Room Air Nasal Cannula Room Air O2 Flow Rate 2.0 2.0 1003/22/17 03/22/17 03/22/17 07:00 08:00 08:18 09:22 Temp 98.5 98.5 Pulse 83 83 Resp 20 B/P (MAP) 120/68 (85) 120/68 Pulse Ox 97 97 O2 Delivery Nasal Cannula Room Air Room Air O2 Flow Rate 2.0 2.0 03/22/17 03/22/17 10:42 12:11 Temp 97.9 97.9 Pulse 83 Resp 20 B/P (MAP) 123/70 (87) Pulse Ox 95 98 O2 Delivery Room Air Room Air KAYCE MCKEON MD Mar 22, 2017 12:35
[2017-03-22 15:00] VITALS: BP 122/72
--- NOTE | 2017-03-22 15:47 | PDOC ---
PROGRESS NOTES Assessment Assessment Speech problem, dysarthria, resolved. CVA syndrome not likely. Metabolic encephalopathy. Cognitive impairment, Narcotics side effects. Fall DM HTN HLD UTI, acute. Renal failure. Wound, left ankle. Chronic left ankle fracture. Carotid A stenosis < 69%. Anemia. Vit D deficiency. Morbid obesity. No evidence of acute stroke this time. RECOMMENDATIONS/PLAN: Continue Plavix 75 mg daily. Continue ASA 325 mg daily. Continue Lipitor 40 mg HS. Vit D supplement. Treat UTI per floor team. Treat medical diseases. See Vascular Surgery, outpatient [place]. OT/PT. Carotid A US + Doppler: < 69% stenosis. Echo: Unremarkable. HISTORY OF THE PRESENT ILLNESS: 62-y-old male patient with above medical diseases had left ankle fracture about 8 weeks ago and received surgery, but his wound still persistent and has not been able to walk. He was in wheel chair and was trying to reach object in sink but he fell off wheelchair. He was found to have some mental status changes and speech problem to be brought to the ER of [facility]. Stat MRI was performed but was uncertain whether a stroke or artifact. However, he received all stroke evaluation and treatment. He talked normal since in the hospital. He stated his speech came back after midnight. No motor or sensory deficits. Past Medical History: Diabetes-Type II GERD High Cholesterol Hypertension Charcot foot NEUROPATHY SLEEP APNEA Past Surgical History: Cholecystectomy Right foot surgery Non-descended testicle Hernia Left ankle surgery ALLERGY: Reviewed. MEDICATIONS: Refer to [facility] FAMILY HISTORY: Non contributory. SOCIAL HISTORY: From Rehab facility. Lives with his at home before. Denies current smoking, drinking, and illicit drug use. REVIEW OF SYSTEMS: Constitutional: Morbid obesity. Head: No recent traumatic brain or head injury. Skin: No edema, or rash. Ear: No infection, tinnitus. Eyes: No vision loss or color blindness. Nose: No bleeding or purulent discharges. Hearing: Hearing decrease. Neck: No recent injury. Cardiac: HTN, HLD. Pulmonary: No COPD. GI: No GI ulcer, GI bleeding. Urinary/genital: UTI. Endocrinologic: Diabetes Mellitus, morbid obesity. Skeletomuscular: Left ankle fracture. Neurological: see HP. Psychiatric: Denies drug use/abuse. Otherwise, not [id number] review of systems. PHYSICAL EXAMINATION: General appearance is in no acute distress. HEENT: Normocephalic and nontraumatic. Eyes, nose, ears, and throat are unremarkable. Neck is supple. No lymphadenopathy. No bruits are heard over the carotid artery. No crepitus. Cardiovascular: S1, S2, regular rate and rhythm. Pulmonary: Clear to auscultation bilaterally. Abdomen: Bowel sounds are positive. Extremities: No rash, lesions, or edema. No restriction of range of motion NEUROLOGICAL EXAMINATION: Awake. Oriented to time, place and person. PERRL. EOMI. CN: no focal findings. Muscle tone: within normal. Muscle strength: 5-, except left LE due to wound. DTR: 1+ Plantar reflex: Flexor response bilaterally Gait: not examined in bed. Sensory exam: withdraw to stimuli. No cerebellar signs elicited. F-T-N test accurate. Objective Objective Vital Signs Date Time Temp Pulse Resp B/P (MAP) Pulse Ox O2 Delivery O2 Flow Rate FiO2 03/22/17 15:00 98.0 86 20 122/72 (89) 92 Room Air 98.0 03/22/17 08:00 2.0 Vitals Signs Vitals VS - Last 72 Hours, by Label Date Time Temp Pulse Resp B/P (MAP) Pulse Ox O2 Delivery O2 Flow Rate FiO2 03/22/17 15:00 98.0 86 20 122/72 (89) 92 Room Air 98.0 03/22/17 12:11 98 Room Air 03/22/17 10:42 97.9 83 20 123/70 (87) 95 Room Air 97.9 03/22/17 09:22 83 120/68 03/22/17 08:18 97 Room Air 03/22/17 08:00 Room Air 2.0 03/22/17 07:00 98.5 83 20 120/68 (85) 97 Nasal Cannula 2.0 98.5 03/22/17 03:59 97.5 85 20 136/75 (95) 97 Room Air 97.5 03/22/17 03:42 Nasal Cannula 2.0 03/21/17 23:22 97.5 91 20 134/77 (96) 93 Room Air 97.5 03/21/17 20:54 Nasal Cannula 2.0 03/21/17 20:00 Nasal Cannula 2.0 03/21/17 19:00 98.2 90 20 149/78 (101) 95 Room Air 98.2 03/21/17 16:31 97 Nasal Cannula 2.0 03/21/17 15:05 98.1 90 20 128/72 (90) 96 Nasal Cannula 2.0 98.1 03/21/17 11:40 Nasal Cannula 2.0 03/21/17 11:00 97.9 89 20 145/76 (99) 99 Nasal Cannula 2.0 97.9 03/21/17 09:55 89 131/78 03/21/17 08:00 Nasal Cannula 2.0 03/21/17 07:51 95 Nasal Cannula 2.0 03/21/17 07:00 98.2 89 20 131/78 (95) 95 Nasal Cannula 2.0 98.2 Laboratory Laboratory Laboratory Tests Test 03/21/17 16:39 03/21/17 21:43 03/22/17 06:20 03/22/17 07:12 Glucose (Fingerstick) 177 mg/dL (70-99) 222 mg/dL (70-99) 157 mg/dL (70-99) White Blood Count 7.2 x10^3/uL (4.0-11.0) Red Blood Count 2.29 x10^6/uL (4.30-5.70) Hemoglobin 7.1 g/dL (13.0-17.5) Hematocrit 20.8 % (39.0-53.0) Mean Corpuscular Volume 91 fL (79-100) Mean Corpuscular Hemoglobin 31 pg (25-35) Mean Corpuscular Hemoglobin Concent 34 g/dL (31-37) Red Cell Distribution Width 17.3 % (11.5-14.5) Platelet Count 117 x10^3/uL (140-400) Neutrophils (%) (Auto) 76 % (31-73) Lymphocytes (%) (Auto) 9 % (24-48) Monocytes (%) (Auto) 9 % (0-9) Eosinophils (%) (Auto) 5 % (0-3) Basophils (%) (Auto) 1 % (0-3) Neutrophils # (Auto) 5.5 x10^3uL (1.8-7.7) Lymphocytes # (Auto) 0.7 x10^3/uL (1.0-4.8) Monocytes # (Auto) 0.7 x10^3/uL (0.0-1.1) Eosinophils # (Auto) 0.3 x10^3/uL (0.0-0.7) Basophils # (Auto) 0.1 x10^3/uL (0.0-0.2) Sodium Level 141 mmol/L (136-145) Potassium Level 4.2 mmol/L (3.5-5.1) Chloride Level 106 mmol/L (98-107) Carbon Dioxide Level 27 mmol/L (21-32) Anion Gap 8 (6-14) Blood Urea Nitrogen 30 mg/dL (8-26) Creatinine 1.0 mg/dL (0.7-1.3) Estimated GFR (Cockcroft-Gault) 75.5 Glucose Level 166 mg/dL (70-99) Calcium Level 9.8 mg/dL (8.5-10.1) Magnesium Level 1.7 mg/dL (1.8-2.4) Test 03/22/17 12:01 Glucose (Fingerstick) 193 mg/dL (70-99) Medication Medications Current Medications Alteplase, Recombinant (Cathflo) 2 mg 1X ONCE INT CAT Last administered on t 12:00; Start 03/22/17 at 12:00; Stop 03/22/17 at 12:01; Status DC Alteplase, Recombinant (Cathflo) 4 mg 1X ONCE INT CAT ; Start 03/22/17 at 12:15 ; Stop 03/22/17 at 12:16; Status DC Alteplase, Recombinant 25 mg/ Sodium Chloride 250 ml @ 10 mls/hr Q25H IV ; Start 03/22/17 at 11:45; Status UNV Comment Review of Relevant I have reviewed the following items lauryn (where applicable) has been applied. ADRIANA CUETO MD Mar 22, 2017 15:47
[2017-03-22 19:10] VITALS: BP 127/74
[2017-03-22] MEDS: FERROUS SULFATE 325 MG TABLET. PO SCH (22:14)
[2017-03-22] MEDS: ATORVASTATIN CALCIUM 20 MG TABLET PO SCH (22:14)
[2017-03-22] MEDS: INSULIN DETEMIR 300 UNITS/3 ML INSULN.PEN. SQ SCH (22:28)
[2017-03-22 23:10] VITALS: BP 131/70
[2017-03-23 03:10] VITALS: BP 128/70
[2017-03-23] MEDS: CEFEPIME HCL 2 GM in IV NORMAL SALINE 100ML 100 ML IV SCH (06:12)
[2017-03-23 07:00] VITALS: BP 131/75
[2017-03-23] MEDS: IPRATRPIUM/ALBUTEROL 0.5/2.5MG 3 ML NEBU. NEB SCH ×2 (07:33→11:44)
[2017-03-23] MEDS: DOCUSATE SODIUM 100 MG CAPSULE. PO SCH (08:55)
[2017-03-23] MEDS: metFORMIN 500 MG TABLET PO SCH (08:56)
[2017-03-23] MEDS: CITALOPRAM 20 MG TABLET. PO SCH (08:56)
[2017-03-23] MEDS: ASPIRIN 325 MG TABLET PO SCH (08:56)
[2017-03-23] MEDS: GABAPENTIN 300 MG CAPSULE. PO SCH (08:56)
[2017-03-23] MEDS: TAMSULOSIN 0.4 MG CAP.ER.24H. PO SCH (08:56)
[2017-03-23] MEDS: CLOPIDOGREL BISULFATE 75 MG TABLET PO SCH (08:56)
[2017-03-23] MEDS: ASCORBIC ACID 500 MG TABLET PO SCH (08:56)
[2017-03-23] MEDS: PANTOPRAZOLE 40 MG TABLET.DR. PO SCH (08:56)
[2017-03-23] MEDS: CHOLECALCIFEROL (VITAMIN D3) 1,000 UNIT TABLET PO SCH (08:57)
[2017-03-23] MEDS: MULTIVITAMIN with MINERAL TABLET. PO SCH (08:57)
[2017-03-23] MEDS: FUROSEMIDE 20 MG TABLET PO SCH (08:57)
[2017-03-23] MEDS: CELECOXIB 200 MG CAPSULE. PO SCH (08:57)
[2017-03-23] MEDS: LOSARTAN POTASSIUM 50 MG TABLET. PO SCH (08:57)
[2017-03-23] MEDS: NYSTATIN TOPICAL POWDER 15GM BOTTLE. TP SCH (08:58)
[2017-03-23] MEDS: INSULIN ASPART 300 UNITS/3 ML INSULN.PEN SQ SCH ×2 (09:08→12:17)
[2017-03-23] MEDS ORDERED: FENT1PAT17 TP (09:19)
[2017-03-23] MEDS ORDERED: HYDR-2762 PO (09:21)
--- NOTE | 2017-03-23 10:21 | PDOC ---
Infectious Disease Note Subjective Subjective feeling good ROS ROS GEN: Denies fevers, chills, sweats HEENT: Denies blurred vision, sore throat CV: Denies chest pain RESP: Denies shortness of air, cough GI: Denies n/v/d NEURO: Denies confusion, dizziness MSK: Denies weakness, joint pain/swelling Vital Sign Vital Signs Vital Signs Date Time Temp Pulse Resp B/P (MAP) Pulse Ox O2 Delivery O2 Flow Rate FiO2 03/23/17 08:57 84 131/75 03/23/17 07:35 97 Nasal Cannula 2.0 03/23/17 07:00 98.4 20 98.4 Physical Exam PHYSICAL EXAM GENERAL: NAD, Alert HEENT: PERRL, OC/OP NECK: Supple, no JVD, no LN LUNGS: Clear HEART: S1S2, no gallop, no murmur ABD: Soft, NT, no organomegaly, no rebound EXT: No edema, no cyanosis.. ext fixator in place and drainage NUTRITION COORDINATOR: Alert, 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, no focal neurologic deficit SKIN: No rash IV: ok Labs Lab Laboratory Tests Test 03/22/17 12:01 03/22/17 16:58 03/22/17 20:43 03/23/17 07:16 Glucose (Fingerstick) 193 mg/dL (70-99) 161 mg/dL (70-99) 233 mg/dL (70-99) 173 mg/dL (70-99) Objective Assessment Left ankle infection -hx proteus, PSA, Enterococcus and MSSA Left foot infection Anemia - for several months - evaluated by Dr. Ravi previously. S/p PRBCs . Appreciate Dr. Ravi f/u Right calcaneal wound - superficial Encephalopathy, CT neg. improved DM ? Talus fracture left Previous CVA Plan Plan of Care Cont Cefepime Weekly CBC/Sed rate/Cr - fax to [phone] Cont Nystatin Leg elevation Supportive care ROLANDO RUIZ MD Mar 23, 2017 10:21
[2017-03-23 11:00] VITALS: BP 144/81
--- NOTE | 2017-03-23 11:54 | PDOC ---
PROGRESS NOTES Subjective Subjective c/c- f/u of anemia ros-mild bleed from heel. Objective Objective Vital Signs Date Time Temp Pulse Resp B/P (MAP) Pulse Ox O2 Delivery O2 Flow Rate FiO2 03/23/17 11:44 Nasal Cannula 2.0 03/23/17 11:00 98.2 84 20 144/81 (102) 97 98.2 Physical Exam Heart: Normal S1, Normal S2 General: Alert, Oriented X3 Lungs: Clear to auscultation Neuro: Normal speech Psych/Mental Status: Mental status NL Assessment Assessment IMPRESSION AND PLAN: 1. Anemia. Iron studies are suggestive of anemia due to chronic disease. He has multiple comorbid conditions. He has persistent left heel wound and he has noticed some bleeding from that occasionally. I suspect that the etiology of anemia is due to chronic disease and chronic left heel wound. I will continue to monitor hemoglobin and transfuse as needed. His reticulocyte count is 1.5 and hence I do not suspect hemolysis. His iron studies, B12 and folic acid do not reveal any deficiencies. His differential count is unremarkable and there is no evidence of immature white cells to suggest leukemia. It is very unlikely that he has a primary bone marrow disorder. Bone marrow biopsy would be reasonable to consider when he is able to lie down. The patient has external fixation apparatus in the left leg. This will be difficult to perform at this time and it is not an emergency. He does have a M-spike noted during his prior labs and hence a bone marrow biopsy would be reasonable to be performed when possible. s/p 1 PRBC 03/15/17 Hb now 7.1. mild bleed from heel. Monitor cbc and transfuse as needed. 2. 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 Plan for a bone marrow aspiration and biopsy when he is unable to tolerate. 3. Left heel wound. Appreciate management per Infectious Diseases. I discussed with Dr. Chente Luo. He has been started on cefepime. 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 Comment Review of Relevant I have reviewed the following items lauryn (where applicable) has been applied. Labs Laboratory Tests Test 03/21/17 12:00 03/21/17 16:39 03/21/17 21:43 03/22/17 06:20 Glucose (Fingerstick) 179 mg/dL (70-99) 177 mg/dL (70-99) 222 mg/dL (70-99) White Blood Count 7.2 x10^3/uL (4.0-11.0) Red Blood Count 2.29 x10^6/uL (4.30-5.70) Hemoglobin 7.1 g/dL (13.0-17.5) Hematocrit 20.8 % (39.0-53.0) Mean Corpuscular Volume 91 fL (79-100) Mean Corpuscular Hemoglobin 31 pg (25-35) Mean Corpuscular Hemoglobin Concent 34 g/dL (31-37) Red Cell Distribution Width 17.3 % (11.5-14.5) Platelet Count 117 x10^3/uL (140-400) Neutrophils (%) (Auto) 76 % (31-73) Lymphocytes (%) (Auto) 9 % (24-48) Monocytes (%) (Auto) 9 % (0-9) Eosinophils (%) (Auto) 5 % (0-3) Basophils (%) (Auto) 1 % (0-3) Neutrophils # (Auto) 5.5 x10^3uL (1.8-7.7) Lymphocytes # (Auto) 0.7 x10^3/uL (1.0-4.8) Monocytes # (Auto) 0.7 x10^3/uL (0.0-1.1) Eosinophils # (Auto) 0.3 x10^3/uL (0.0-0.7) Basophils # (Auto) 0.1 x10^3/uL (0.0-0.2) Sodium Level 141 mmol/L (136-145) Potassium Level 4.2 mmol/L (3.5-5.1) Chloride Level 106 mmol/L (98-107) Carbon Dioxide Level 27 mmol/L (21-32) Anion Gap 8 (6-14) Blood Urea Nitrogen 30 mg/dL (8-26) Creatinine 1.0 mg/dL (0.7-1.3) Estimated GFR (Cockcroft-Gault) 75.5 Glucose Level 166 mg/dL (70-99) Calcium Level 9.8 mg/dL (8.5-10.1) Magnesium Level 1.7 mg/dL (1.8-2.4) Test 03/22/17 07:12 03/22/17 12:01 03/22/17 16:58 03/22/17 20:43 Glucose (Fingerstick) 157 mg/dL (70-99) 193 mg/dL (70-99) 161 mg/dL (70-99) 233 mg/dL (70-99) Test 03/23/17 07:16 Glucose (Fingerstick) 173 mg/dL (70-99) Laboratory Tests Test 03/22/17 12:01 03/22/17 16:58 03/22/17 20:43 03/23/17 07:16 Glucose (Fingerstick) 193 mg/dL (70-99) 161 mg/dL (70-99) 233 mg/dL (70-99) 173 mg/dL (70-99) Medications Current Medications Diphenhydramine HCl (Benadryl) 50 mg 1X ONCE IVP Last administered on 17:11; Start 03/11/17 at 15:30; Stop 03/11/17 at 15:32; Status DC Ondansetron HCl (Zofran) 4 mg PRN Q8HRS PRN IV NAUSEA/VOMITING; Start 03/11/17 at 18:30; Stop 03/12/17 at 18:29; Status DC Morphine Sulfate 4 mg PRN Q2HR PRN IV PAIN; Start 03/11/17 at 18:30; Stop 03/12 at 18:29; Status DC Acetaminophen (Tylenol) 650 mg PRN Q4HRS PRN PO FEVER; Start 03/11/17 at 18:30 ; Stop 03/12/17 at 18:29; Status DC Clopidogrel Bisulfate (Plavix) 75 mg 1X ONCE PO Last administered on 18:48; Start 03/11/17 at 18:30; Stop 03/11/17 at 18:31; Status DC Aspirin (Omkar Aspirin) 325 mg DAILY PO Last administered on 03/23/17 08:56; Start 03/12/17 at 09:00 Atorvastatin Calcium (Lipitor) 20 mg QHS PO Last administered on 03/14/17 21: 28; Start 03/11/17 at 21:00; Stop 03/15/17 at 10:59; Status DC Celecoxib (CeleBREX) 200 mg BID PO Last administered on 03/23/17 08:57; Start 03/11/17 at 21:00 Vitamin D (Vitamin D3) 1,000 unit DAILY PO Last administered on 03/23/17 08: 57; Start 03/12/17 at 09:00 Clopidogrel Bisulfate (Plavix) 75 mg DAILY PO Last administered on 03/23/17 08:56; Start 03/12/17 at 09:00 Docusate Sodium (Colace) 100 mg DAILY PO Last administered on 03/23/17 08:55 ; Start 03/12/17 at 09:00 Fentanyl (Duragesic 75mcg/ Hr Patch) 1 patch Q3DAYS TD Last administered on 09:54; Start 03/12/17 at 09:00 Acetaminophen/ Hydrocodone Bitart (Lortab 7.5/325) 1 tab PRN Q4HRS PRN PO MODERATE PAIN Last administered on 03/20/17 21:30; Start 03/11/17 at 19:30 Losartan Potassium (Cozaar) 50 mg DAILY PO Last administered on 03/23/17 08: 57; Start 03/12/17 at 09:00 Metformin HCl (Glucophage) 500 mg BIDWMEALS PO Last administered on 03/23/17 08:56; Start 03/12/17 at 08:00 Pantoprazole Sodium (Protonix) 40 mg DAILYAC PO Last administered on 08:56; Start 03/12/17 at 07:30 Tamsulosin HCl (Flomax) 0.4 mg BID PO Last administered on 03/23/17 08:56; Start 03/11/17 at 21:00 Tamsulosin HCl (Flomax) 0.4 mg HS PO ; Start 03/11/17 at 21:00; Status UNV Citalopram Hydrobromide (CeleXA) 40 mg DAILY PO Last administered on 08:56; Start 03/12/17 at 09:00 Gabapentin (Neurontin) 300 mg BID PO Last administered on 03/23/17 08:56; Start 03/11/17 at 21:00 Insulin Detemir (Levemir) 22 units QHS SQ Last administered on 03/18/17 22:36 ; Start 03/11/17 at 21:00; Stop 03/19/17 at 09:34; Status DC Non-Formulary Medication 3.375 gm Q6HRS IV ; Start 03/12/17 at 00:00; Status UNV Insulin Aspart (NovoLOG) TIDWMEALS SQ Last administered on 03/23/17 09:08; Start 03/12/17 at 08:00 Dextrose (Dextrose 50%-Water Syringe) 12.5 gm PRN Q15MIN PRN IV SEE COMMENTS; Start 03/11/17 at 19:30 Piperacillin Sod/ Tazobactam Sod 3.375 gm/Sodium Chloride 50 ml @ 100 mls/hr Q6HRS IV Last administered on 03/15/17 05:39; Start 03/12/17 at 00:00; Stop 03/15/17 at 08:19; Status DC Hydromorphone HCl (Dilaudid) 0.5 mg PRN Q3HRS PRN IVP SEVERE PAIN Last administered on 03/12/17 07:55; Start 03/11/17 at 23:15 Albuterol/ Ipratropium (Duoneb) 3 ml RTQID NEB Last administered on 03/23/17 11:44; Start 03/12/17 at 08:00 Albuterol Sulfate (Ventolin Neb Soln) 2.5 mg PRN Q4HRS PRN NEB SHORTNESS OF BREATH Last administered on 03/22/17 03:41; Start 03/12/17 at 06:00 Nystatin (Nystop) 1 rae BID TP Last administered on 03/23/17 08:58; Start at 09:00 Magnesium Sulfate/ Dextrose 50 ml @ 25 mls/hr 1X ONCE IV Last administered on 03/13/17 18:31; Start 03/13/17 at 18:15; Stop 03/14/17 at 13:16; Status DC Magnesium Sulfate/ Dextrose 50 ml @ 25 mls/hr 1X ONCE IV ; Start 03/14/17 at 13 :00; Stop 03/14/17 at 14:59; Status DC Cefepime HCl 2 gm/ Sodium Chloride 100 ml @ 200 mls/hr Q8HRS IV Last administered on 03/23/17 06:12; Start 03/15/17 at 09:00 Atorvastatin Calcium (Lipitor) 40 mg QHS PO Last administered on 03/22/17 22: 14; Start 03/15/17 at 21:00 Alteplase, Recombinant (Cathflo) 2 mg 1X ONCE INT CAT Last administered on 14:26; Start 03/16/17 at 11:15; Stop 03/16/17 at 11:18; Status DC Ascorbic Acid (Vitamin C) 500 mg BID PO Last administered on 03/23/17 08:56; Start 03/17/17 at 21:00 Multivitamins (Thera M Plus) 1 tab DAILY PO Last administered on 03/23/17 08: 57; Start 03/18/17 at 09:00 Magnesium Citrate (Citroma) 296 ml 1X ONCE PO ; Start 03/18/17 at 11:15; Stop 03/18/17 at 11:16; Status DC Insulin Detemir (Levemir) 28 units QHS SQ Last administered on 03/22/17 22:28 ; Start 03/19/17 at 21:00 Alteplase, Recombinant (Cathflo) 2 mg 1X ONCE INT CAT Last administered on 09:58; Start 03/19/17 at 10:00; Stop 03/19/17 at 10:01; Status DC Ferrous Sulfate (Feosol) 325 mg QHS PO Last administered on 03/22/17 22:14; Start 03/19/17 at 21:00 Furosemide (Lasix) 20 mg DAILY PO Last administered on 03/23/17 08:57; Start 03/21/17 at 14:30 Alteplase, Recombinant 25 mg/ Sodium Chloride 250 ml @ 10 mls/hr Q25H IV ; Start 03/22/17 at 11:45; Status UNV Alteplase, Recombinant (Cathflo) 2 mg 1X ONCE INT CAT Last administered on 12:00; Start 03/22/17 at 12:00; Stop 03/22/17 at 12:01; Status DC Alteplase, Recombinant (Cathflo) 4 mg 1X ONCE INT CAT ; Start 03/22/17 at 12:15 ; Stop 03/22/17 at 12:16; Status DC Active Scripts Active Hydrocodone-Apap 7.5-325 (Hydrocodone Bit/Acetaminophen) 1 Each Tablet 1 Tab PO PRN Q6HRS PRN FENTANYL 50mcg/hr (Fentanyl) 1 Each Patch.td72 1 Patch TP Q3DAYS Reported Tamsulosin Hcl 0.4 Mg Cap.er.24h 1 Cap PO DAILY Zosyn 3.375 Gm Galaxy Bag (Bjzwogemjqwb-Lumg-Vzspdjmb,Iso) 3.375 Gm/50 Ml Froz.piggy 3.375 Gm IV Q6HRS Novolog (Insulin Aspart) 100 Unit/1 Ml Cartridge 15 Unit SQ TIDAC Pantoprazole Sodium 40 Mg Tablet.dr 40 Mg PO DAILY Levemir (Insulin Detemir) 100 Unit/1 Ml Vial 22 Unit SQ HS FENTANYL 75mcg/hr (Fentanyl) 1 Each Patch.td72 1 Patch TP Q3DAYS Colace (Docusate Sodium) 100 Mg Capsule 1 Cap PO DAILY Aspirin 325 Mg Tablet 1 Tab PO DAILY Vitamin D3 (Cholecalciferol (Vitamin D3)) 1,000 Unit Tablet 1 Tab PO DAILY Losartan Potassium 50 Mg Tablet 50 Mg PO DAILY Gabapentin 300 Mg Capsule 300 Mg PO BID Celebrex (Celecoxib) 200 Mg Capsule 200 Mg PO BID 30 Days Citalopram Hbr (Citalopram Hydrobromide) 40 Mg Tablet 40 Mg PO DAILY Lipitor (Atorvastatin Calcium) 20 Mg Tablet 20 Mg PO QHS Flomax (Tamsulosin Hcl) 0.4 Mg Cap.er.24h 0.4 Mg PO HS Metformin Hcl 500 Mg Tablet 500 Mg PO BID Plavix (Clopidogrel Bisulfate) 75 Mg Tablet 75 Mg PO DAILY Vitals/I & O Vital Sign - Last 24 Hours 03/22/17 03/22/17 03/22/17 03/22/17 12:11 15:00 15:48 19:10 Temp 98.0 97.7 98.0 97.7 Pulse 86 83 Resp 20 20 B/P (MAP) 122/72 (89) 127/74 (91) Pulse Ox 98 92 98 97 O2 Delivery Room Air Room Air Room Air Nasal Cannula O2 Flow Rate 2.0 03/22/17 03/22/17 03/22/17 03/23/17 19:52 20:00 23:10 03:10 Temp 97.7 97.8 97.7 97.8 Pulse 81 79 Resp 18 18 B/P (MAP) 131/70 (90) 128/70 (89) Pulse Ox 98 98 98 O2 Delivery Nasal Cannula Nasal Cannula Nasal Cannula Nasal Cannula O2 Flow Rate 2.0 2.0 2.0 2.0 03/23/17 03/23/17 03/23/17 03/23/17 07:00 07:35 08:57 11:00 Temp 98.4 98.2 98.4 98.2 Pulse 84 84 84 Resp 20 20 B/P (MAP) 131/75 (93) 131/75 144/81 (102) Pulse Ox 96 97 97 O2 Delivery Nasal Cannula Nasal Cannula Nasal Cannula O2 Flow Rate 2.0 2.0 2.0 03/23/17 11:44 O2 Delivery Nasal Cannula O2 Flow Rate 2.0 KAYCE MCKEON MD Mar 23, 2017 11:54
--- NOTE | 2017-03-23 19:48 | PDOC ---
PROGRESS NOTES Assessment Assessment Speech problem, dysarthria, resolved. CVA syndrome not likely. Metabolic encephalopathy. Cognitive impairment, Narcotics side effects. Fall DM HTN HLD UTI, acute. Renal failure. Wound, left ankle. Chronic left ankle fracture. Carotid A stenosis < 69%. Anemia. Vit D deficiency. Morbid obesity. No evidence of acute stroke this time. RECOMMENDATIONS/PLAN: Continue Plavix 75 mg daily. Continue ASA 325 mg daily. Continue Lipitor 40 mg HS. Vit D supplement. Treat UTI per floor team. Treat medical diseases. See Vascular Surgery, outpatient [facility] [place]. OT/PT. Carotid A US + Doppler: < 69% stenosis. Echo: Unremarkable. HISTORY OF THE PRESENT ILLNESS: 62-y-old male patient with above medical diseases had left ankle fracture about 8 weeks ago and received surgery, but his wound still persistent and has not been able to walk. He was in wheel chair and was trying to reach object in sink but he fell off wheelchair. He was found to have some mental status changes and speech problem to be brought to the ER of [facility]. Stat MRI was performed but was uncertain whether a stroke or artifact. However, he received all stroke evaluation and treatment. He talked normal since in the hospital. He stated his speech came back after midnight. No motor or sensory deficits. Past Medical History: Diabetes-Type II GERD High Cholesterol Hypertension Charcot foot NEUROPATHY SLEEP APNEA Past Surgical History: Cholecystectomy Right foot surgery Non-descended testicle Hernia Left ankle surgery ALLERGY: Reviewed. MEDICATIONS: Refer to MAR FAMILY HISTORY: Non contributory. SOCIAL HISTORY: From Rehab facility. Lives with his at home before. Denies current smoking, drinking, and illicit drug use. REVIEW OF SYSTEMS: Constitutional: Morbid obesity. Head: No recent traumatic brain or head injury. Skin: No edema, or rash. Ear: No infection, tinnitus. Eyes: No vision loss or color blindness. Nose: No bleeding or purulent discharges. Hearing: Hearing decrease. Neck: No recent injury. Cardiac: HTN, HLD. Pulmonary: No COPD. GI: No GI ulcer, GI bleeding. Urinary/genital: UTI. Endocrinologic: Diabetes Mellitus, morbid obesity. Skeletomuscular: Left ankle fracture. Neurological: see HP. Psychiatric: Denies drug use/abuse. Otherwise, not -fxqda review of systems. PHYSICAL EXAMINATION: General appearance is in no acute distress. HEENT: Normocephalic and nontraumatic. Eyes, nose, ears, and throat are unremarkable. Neck is supple. No lymphadenopathy. No bruits are heard over the carotid artery. No crepitus. Cardiovascular: S1, S2, regular rate and rhythm. Pulmonary: Clear to auscultation bilaterally. Abdomen: Bowel sounds are positive. Extremities: No rash, lesions, or edema. No restriction of range of motion NEUROLOGICAL EXAMINATION: Awake. Oriented to time, place and person. PERRL. EOMI. CN: no focal findings. Muscle tone: within normal. Muscle strength: 5-, 3+ left LE DTR: 1+ Plantar reflex: Flexor response bilaterally Gait: not examined in bed. Sensory exam: withdraw to stimuli. No cerebellar signs elicited. F-T-N test accurate. Objective Objective Vital Signs Date Time Temp Pulse Resp B/P (MAP) Pulse Ox O2 Delivery O2 Flow Rate FiO2 03/23/17 11:44 Nasal Cannula 2.0 03/23/17 11:00 98.2 84 20 144/81 (102) 97 98.2 Vitals Signs Vitals VS - Last 72 Hours, by Label Date Time Temp Pulse Resp B/P (MAP) Pulse Ox O2 Delivery O2 Flow Rate FiO2 03/23/17 11:44 Nasal Cannula 2.0 03/23/17 11:00 98.2 84 20 144/81 (102) 97 Nasal Cannula 2.0 98.2 03/23/17 08:57 84 131/75 03/23/17 08:00 Nasal Cannula 2.0 03/23/17 07:35 97 Nasal Cannula 2.0 03/23/17 07:00 98.4 84 20 131/75 (93) 96 Nasal Cannula 2.0 98.4 03/23/17 03:10 97.8 79 18 128/70 (89) 98 Nasal Cannula 2.0 97.8 03/22/17 23:10 97.7 81 18 131/70 (90) 98 Nasal Cannula 2.0 97.7 03/22/17 20:00 Nasal Cannula 2.0 03/22/17 19:52 98 Nasal Cannula 2.0 03/22/17 19:10 97.7 83 20 127/74 (91) 97 Nasal Cannula 2.0 97.7 03/22/17 15:48 98 Room Air 03/22/17 15:00 98.0 86 20 122/72 (89) 92 Room Air 98.0 03/22/17 12:11 98 Room Air 03/22/17 10:42 97.9 83 20 123/70 (87) 95 Room Air 97.9 03/22/17 09:22 83 120/68 03/22/17 08:18 97 Room Air 03/22/17 08:00 Room Air 2.0 03/22/17 07:00 98.5 83 20 120/68 (85) 97 Nasal Cannula 2.0 98.5 Laboratory Laboratory Laboratory Tests Test 03/22/17 20:43 03/23/17 07:16 03/23/17 11:54 Glucose (Fingerstick) 233 mg/dL (70-99) 173 mg/dL (70-99) 176 mg/dL (70-99) Comment Review of Relevant I have reviewed the following items lauryn (where applicable) has been applied. ADRIANA CUETO MD Mar 23, 2017 19:48
--- NOTE | 2017-03-24 13:02 | CONS ---
DATE OF CONSULTATION: 03/12/2017 REQUESTING PHYSICIAN: Dr. Cobb. REASON FOR CONSULTATION: Antibiotic management. HISTORY OF PRESENT ILLNESS: This is a 62-year-old gentleman who is known to us. The patient had a long history of leg wounds. Especially, it started with a right calcaneal wound and gangrenous ulcers on the right heel and then he fell at the nursing facility I believe and developed left ankle fracture. The patient had wound infection and then required surgery, subsequent more surgery and now he has external fixation on the left ankle. The patient is leaking from the wound on the left ankle as well as from one of the pain site. The patient is brought in this time when he became unresponsive and it was thought to have had a stroke. The patient was absolutely or completely not talking, although workup has been negative and he woke up and patient is alert, awake now, appropriate and back to his baseline. The patient denies any nausea, vomiting, diarrhea, chest pain, shortness of breath, abdominal pain, urinary symptoms or bowel symptoms. He has external fixator on the left leg and he has had surgeries done on to the ankle including significant hardware in place. PAST MEDICAL HISTORY: Positive for diabetes mellitus, depression, CVA, hyperlipidemia, obesity, hypertension, gastroesophageal reflux disease, sleep apnea. PAST SURGICAL HISTORY: Cholecystectomy, right foot surgery and extensive left ankle surgery. SOCIAL HISTORY: Negative for smoking, alcohol or illicit drug use. The patient is currently in a nursing facility. ALLERGIES: MORPHINE. CURRENT MEDICATIONS: Reviewed. The patient is on Zosyn. REVIEW OF SYSTEMS: As per HPI. All the systems reviewed are negative. PHYSICIAL EXAMINATION: GENERAL: Alert, oriented gentleman not in distress. VITAL SIGNS: Stable, afebrile. HEENT: Anicteric. NECK: Supple, no JVP or lymphadenopathy. LUNGS: Clear. CARDIOVASCULAR: S1 and S2 regular. ABDOMEN: Benign. EXTREMITIES: Right lower extremity, the patient has a minor skin breakdown at the right knee laterally. The patient has breakdown in the right calcaneal area which is soppy and not healthy looking because of the leakage of fluid with 3+ pitting edema. The left ankle has a large necrotic wound which is deep and significant drainage from that as well as there is another drainage site from the pin into the calcaneal area. The patient also has about 2-3+ pitting edema there. NEUROLOGIC: Intact. LABORATORY DATA: White count of 6.9, hemoglobin 7.4, platelets are 158,000, BUN and creatinine is 21 and 1.4. His last ankle culture on 02/02/2017 was Proteus and another culture from 02/02/2017 was Pseudomonas, Enterococcus and MSSA. X-rays of the ankle reviewed. Brain MRI was done which is unremarkable for any apparent acute changes. Chest x-ray was unremarkable other than mild congestive heart failure. IMPRESSION: 1. Left ankle wound with infection and hardware in place, internal as well as external hardware. 2. Right calcaneal wound. 3. Encephalopathy, which may have been related to pain medication. He has been back to his normal. 4. Diabetes. 5. History of cerebrovascular accident. 6. Hypertension. 7. Obesity. RECOMMEND: I would continue Zosyn for the time being. The patient needs a strict elevation to control the drainage. Supportive care; although, overall for the left leg at least the prognosis is poor. He would require amputation; although, he absolutely refuses. He says he is going to if he gets amputation. We will continue to work at his wound and his infection. Thank you very much Dr. Bobo and Dr. Cobb for giving me opportunity to participate in this patient's care. ROLANDO RUIZ MD DR: RONALDO/annika JOB#: [id number] / [id number]
--- NOTE | 2017-03-25 00:22 | DS ---
DATE OF DISCHARGE: 03/23/2017 CHIEF COMPLAINT: Fall, aphasia. HOSPITAL COURSE: The patient is a 62-year-old gentleman who had been transferred from [facility] to the Emergency Room with an episode of aphasia, initially thought to be CVA. This, however, was ruled out and the patient recovered spontaneously. However, he was found with suspected sepsis and wound infection on his heel. This was concerning as he has external fixator for comminuted fracture in place since early February. Orthopedic service as well as Infectious Disease were consulted. The patient was started on antibiotics, and on Infectious Disease advice, was continued on cefepime beyond his discharge. Discharge was somewhat complicated as the patient is unable to actually take care of himself due to bilateral nonweightbearing status due to infections in both heels as well as morbid obesity and inability to self-administer IV antibiotics. He was therefore transferred to LT[facility] for continuation of his antibiotic treatment. PHYSICAL EXAMINATION: VITAL SIGNS: Show a blood pressure of 144/81, heart rate of 84, respiratory rate of 20. He is afebrile. GENERAL: This is a morbidly obese gentleman, alert and oriented, no acute distress. LUNGS: Clear. HEART: Regular rate and rhythm. ABDOMEN: Has positive bowel sounds. Morbidly obese. EXTREMITIES: Show left external fixator in distal lower extremity. Both heels are covered. DISCHARGE DIAGNOSES: Wound infection. Comminuted left ankle fracture with external fixators. Morbid obesity. DISCHARGE DISPOSITION: To LTAC. DISCHARGE CONDITION: Improved. DISCHARGE MEDICATIONS: Please refer to MAR. DISCHARGE INSTRUCTIONS: The patient will continue with antibiotic regimen and returned to Ortho as previously arranged. NEVIN LONG MD DR: CRISTOFER/nts JOB#: [id number] / [id number] TIFFANY Gonsales MD
== END 2017-03-23 14:50 | disposition home or self-care (01) | DRG 91 ==
LOC: ER 14:41 → 6 SOUTH 17:45
PROVIDERS: ADMIT Internal Medicine Hematology & Oncology; ATTEND Internal Medicine Hematology & Oncology
PROC: 30233N1 Transfusion of Nonautologous Red Blood Cells into Peripheral Vein, Percutaneous Approach (ICD-10-PCS; principal; 2017-03-11)
DX: R47.01 Aphasia (principal); G93.41 Metabolic encephalopathy; E11.22 Type 2 diabetes mellitus with diabetic chronic kidney disease; E11.42 Type 2 diabetes mellitus with diabetic polyneuropathy; Z68.42 Body mass index [BMI] 45.0-49.9, adult; L03.116 Cellulitis of left lower limb; L97.419 Non-pressure chronic ulcer of right heel and midfoot with unspecified severity; N39.0 Urinary tract infection, site not specified; D63.8 Anemia in other chronic diseases classified elsewhere; E11.610 Type 2 diabetes mellitus with diabetic neuropathic arthropathy; E11.621 Type 2 diabetes mellitus with foot ulcer; E55.9 Vitamin D deficiency, unspecified; E66.01 Morbid (severe) obesity due to excess calories; E78.00 Pure hypercholesterolemia, unspecified; E78.5 Hyperlipidemia, unspecified; F32.9 Major depressive disorder, single episode, unspecified; G47.30 Sleep apnea, unspecified; I12.9 Hypertensive chronic kidney disease with stage 1 through stage 4 chronic kidney disease, or unspecified chronic kidney disease; K21.9 Gastro-esophageal reflux disease without esophagitis; K59.00 Constipation, unspecified; M14.679 Charcot's joint, unspecified ankle and foot; N18.2 Chronic kidney disease, stage 2 (mild); Z82.49 Family history of ischemic heart disease and other diseases of the circulatory system; Z83.3 Family history of diabetes mellitus; Z86.73 Personal history of transient ischemic attack (TIA), and cerebral infarction without residual deficits; Z89.519 Acquired absence of unspecified leg below knee; Z90.49 Acquired absence of other specified parts of digestive tract; Z88.5 Allergy status to narcotic agent; I65.29 Occlusion and stenosis of unspecified carotid artery; D47.2 Monoclonal gammopathy
CPT/HCPCS: 99285; C8929; 36415; 70450; 70551; 71010; 71250; 73600; 80048; 80053; 80061; 80307; 81001; 82306; 82607; 82728; 82962; 83540; 83550; 83605; 83735; 84443; 84484; 85007; 85025; 85027; 85045; 85610; 85730; 86850; 86900; 86901; 86920; 87641; 93005; 93880; 94250; 94640; 94760; J0692; J1170; J1200; J1815; J2543; J2997; J7060; J7613; J7620; P9016; 92526; 92610; 97110; 97116; 97530; 97535; G0479

== ENCOUNTER 2017-04-29 14:07 | Inpatient (IN) | payer BC ==
[~2017-04-29] VITALS: Ht 182.9 cm; Wt 148.9 kg
[~2017-04-29 14:07] MED LIST changes: +FENT1PAT17 TP
[2017-04-29 15:38] LABS: BASO # 0.1 x10^3/uL (0.0-0.2); BASO % 1 % (0-3); EOS % 5 % (0-3); HEMATOCRIT 23.4 % (39.0-53.0); HEMOGLOBIN 7.9 g/dL (13.0-17.5); LYMPH % 13 % (24-48); MEAN CORPUSCULAR HEMOGLOBIN 32 pg (25-35); MEAN CORPUSCULAR HGB CONC 34 g/dL (31-37); MEAN CORPUSCULAR VOLUME 95 fL (79-100); MONO % 10 % (0-9); NEUT % 71 % (31-73); PLATELET COUNT 173 x10^3/uL (140-400); RED BLOOD COUNT 2.45 x10^6/uL (4.30-5.70); RED CELL DISTRIBUTION WIDTH 16.1 % (11.5-14.5)
[2017-04-29 15:39] LABS: BILIRUBIN,URINE NEGATIVE (NEG); GLUCOSE,URINE NEGATIVE (NEG); NITRITE,URINE NEGATIVE (NEG); PH,URINE 5.5; PROTEIN,URINE NEGATIVE (NEG-TRACE); UROBILINOGEN,URINE 0.2 mg/dL (0.2 mg/dL)
--- NOTE | 2017-04-29 15:45 | RAD ---
Single view chest 04/29/2017 Clinical indication: Syncopal episode. Comparison: Chest 03/11/2017 Findings: Cardiac and mediastinal silhouettes are within normal limits. No pleural effusion, pneumothorax or focal consolidation. Impression: No acute cardiopulmonary abnormality.
[2017-04-29 15:47] LABS: BACTERIA,URINE 0 /HPF (0-FEW)
[2017-04-29 15:54] LABS: CALCIUM 9.3 mg/dL (8.5-10.1); CREATININE 1.6 mg/dL (0.7-1.3); GFR 43.9; POTASSIUM 4.4 mmol/L (3.5-5.1)
[2017-04-29 15:59] LABS: ALBUMIN 2.8 g/dL (3.4-5.0); ALBUMIN/GLOBULIN RATIO 0.6 (1.0-1.7); TOTAL BILIRUBIN 0.4 mg/dL (0.2-1.0); TOTAL PROTEIN 7.2 g/dL (6.4-8.2)
[2017-04-29] MEDS: IV NORMAL SALINE 1000ML BAG 1,000 ML IV SCH ×7 (16:08→23:36)
--- NOTE | 2017-04-29 16:19 | EKG ---
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
--- NOTE | 2017-04-29 16:56 | PHYS DOC ---
Past Medical History Past Medical History: CVA, Depression, Diabetes-Type II, GERD, High Cholesterol , Hypertension, Other Additional Past Medical Histor: charcoit foot, NEUROPATHY, SLEEP APNEA Past Surgical History: Cholecystectomy, Other Additional Past Surgical Histo: right foot surgery, hemmorhoid surgery, non- descended testicle, hernia, R K Alcohol Use: None Drug Use: None Adult General Chief Complaint Chief Complaint: DIZZY/LIGHT HEADED HPI HPI 62-year-old male with a history of morbid obesity hypertension, high cholesterol , depression, type 2 diabetes with insulin use, end-stage renal disease with prior CVA as well as a recent diagnosis of necrotizing fasciitis for which patient continues to receive outpatient antibiotics. Patient now presents the emergency department after an episode of syncope. He was in the lobby of the infectious disease doctor's office was found to be "unresponsive. "Initially patient denied having taken narcotics or benzodiazepines however he later admitted that he may have taken extra dose of benzodiazepine. Patient was sleepy appearing however he wanted to verbal stimuli would open his eyes and other conversation without any difficulty and with a nonfocal neurologic exam alert and oriented. The symptoms persisted on arrival in the emergency department upon my evaluation. He is not sure how he "passed out. "Patient denies chest pain or shortness of breath. Denies palpitations. He is otherwise asymptomatic Review of Systems Review of Systems Constitutional: Denies fever or chills [] Eyes: Denies change in visual acuity, redness, or eye pain [] HENT: Denies nasal congestion or sore throat [] Respiratory: Denies cough or shortness of breath [] Cardiovascular: No additional information not addressed in HPI [] GI: Denies abdominal pain, nausea, vomiting, bloody stools or diarrhea [] : Denies dysuria or hematuria [] Musculoskeletal: Denies back pain or joint pain [] Integument: Denies rash or skin lesions [] Neurologic: Denies headache, focal weakness or sensory changes [] Endocrine: Denies polyuria or polydipsia [] All other systems were reviewed and found to be within normal limits, except as documented in this note. Current Medications Current Medications Current Medications Medications (Trade) Dose Ordered Sig/Serenity Start Time Stop Time Status Last Admin Dose Admin Sodium Chloride 1,000 ml @ 999 mls/hr Q1H1M 04/29/17 15:28 04/29/17 16:08 999 MLS/HR Allergies Allergies Allergies Coded Allergies Type Severity Reaction Last Updated Verified morphine Allergy Intermediate 02/19/17 Yes Physical Exam Physical Exam Morbidly obese 62-year-old male appearing older than his stated age. He appears sleepy but is easily awakened with verbal stimuli and is able to conversation during which is alert and oriented as well as communicative and appropriate. Mucous membranes moist supple neck clear lungs regular rate and rhythm no tachycardia benign abdomen with baseline distention secondary to obesity. Bilateral lower extremities with fresh dressings on chronic wounds in place. No crepitance or fluctuance of either leg no focal tenderness or asymmetry. Constitutional: Well developed, well nourished, no acute distress, non-toxic appearance. [] HENT: Normocephalic, atraumatic, bilateral external ears normal, oropharynx moist, no oral exudates, nose normal. [] Eyes: PERRLA, EOMI, conjunctiva normal, no discharge. [] Neck: Normal range of motion, no tenderness, supple, no stridor. [] Cardiovascular:Heart rate regular rhythm, no murmur [] Lungs & Thorax: Bilateral breath sounds clear to auscultation [] Abdomen: Bowel sounds normal, soft, no tenderness, no masses, no pulsatile masses. [] Skin: Warm, dry, no erythema, skin lesions. History of present illness bilateral lower extremity baseline per patient without acute change Back: No tenderness, no CVA tenderness. [] Extremities: No tenderness, no cyanosis, no clubbing, ROM intact, no edema. [] Neurologic: Alert and oriented X 3, normal motor function, normal sensory function, no focal deficits noted. [] Psychologic: Affect normal, judgement normal, mood normal. [] Current Patient Data Vital Signs Vital Signs Date Time Temp Pulse Resp B/P (MAP) Pulse Ox O2 Delivery O2 Flow Rate FiO2 04/29/17 16:41 78 15 04/29/17 16:11 99 04/29/17 14:08 97.9 143/71 (95) Nasal Cannula 2.0 97.9 Lab Values Laboratory Tests Test 04/29/17 14:10 04/29/17 15:54 White Blood Count 8.0 x10^3/uL (4.0-11.0) Red Blood Count 2.45 x10^6/uL (4.30-5.70) L Hemoglobin 7.9 g/dL (13.0-17.5) L Hematocrit 23.4 % (39.0-53.0) L Mean Corpuscular Volume 95 fL (79-100) Mean Corpuscular Hemoglobin 32 pg (25-35) Mean Corpuscular Hemoglobin Concent 34 g/dL (31-37) Red Cell Distribution Width 16.1 % (11.5-14.5) H Platelet Count 173 x10^3/uL (140-400) Neutrophils (%) (Auto) 71 % (31-73) Lymphocytes (%) (Auto) 13 % (24-48) L Monocytes (%) (Auto) 10 % (0-9) H Eosinophils (%) (Auto) 5 % (0-3) H Basophils (%) (Auto) 1 % (0-3) Neutrophils # (Auto) 5.7 x10^3uL (1.8-7.7) Lymphocytes # (Auto) 1.0 x10^3/uL (1.0-4.8) Monocytes # (Auto) 0.8 x10^3/uL (0.0-1.1) Eosinophils # (Auto) 0.4 x10^3/uL (0.0-0.7) Basophils # (Auto) 0.1 x10^3/uL (0.0-0.2) Urine Collection Type Unknown Urine Color Yellow Urine Clarity Clear Urine pH 5.5 Urine Specific [place] 1.010 Urine Protein Negative mg/dL (NEG-TRACE) Urine Glucose (UA) Negative mg/dL (NEG) Urine Ketones (Stick) Negative mg/dL (NEG) Urine Blood Negative (NEG) Urine Nitrite Negative (NEG) Urine Bilirubin Negative (NEG) Urine Urobilinogen Dipstick 0.2 mg/dL (0.2 mg/dL) Urine Leukocyte Esterase Negative (NEG) Urine RBC 3-5 /HPF (0-2) Urine WBC 1-4 /HPF (0-4) Urine Bacteria 0 /HPF (0-FEW) Urine Hyaline Casts Many /HPF Urine Mucus Mod /LPF Sodium Level 142 mmol/L (136-145) Potassium Level 4.4 mmol/L (3.5-5.1) Chloride Level 103 mmol/L (98-107) Carbon Dioxide Level 31 mmol/L (21-32) Anion Gap 8 (6-14) Blood Urea Nitrogen 33 mg/dL (8-26) H Creatinine 1.6 mg/dL (0.7-1.3) H Estimated GFR (Cockcroft-Gault) 43.9 BUN/Creatinine Ratio 21 (6-20) H Glucose Level 182 mg/dL (70-99) H Calcium Level 9.3 mg/dL (8.5-10.1) Total Bilirubin 0.4 mg/dL (0.2-1.0) Aspartate Amino Transferase (AST) 31 U/L (15-37) Alanine Aminotransferase (ALT) 31 U/L (16-63) Alkaline Phosphatase 115 U/L (46-116) Troponin I Quantitative < 0.017 ng/mL (0.000-0.055) Total Protein 7.2 g/dL (6.4-8.2) Albumin 2.8 g/dL (3.4-5.0) L Albumin/Globulin Ratio 0.6 (1.0-1.7) L Thyroid Stimulating Hormone (TSH) 1.962 uIU/mL (0.358-3.74) Glucose (Fingerstick) 141 mg/dL (70-99) H Laboratory Tests 04/29/17 14:10 Laboratory Tests 04/29/17 14:10 EKG EKG EKG with normal sinus rhythm at 75 left axis deviation Radiology/Procedures Radiology/Procedures Chest x-ray no acute disease interpreted by me[] Course & Med Decision Making Course & Med Decision Making Pertinent Labs and Imaging studies reviewed. (See chart for details) Signs and symptoms consistent with suspected oversedation with patient's benzodiazepine prescription however cannot rule out possibility of syncope potentially from arrhythmia so patient will be admitted for monitoring to rule out arrhythmia for further workup and treatment as needed. Patient's sleepiness on arrival gradually resolved completely and he is alert communicative cooperative and appropriate. Hemoglobin 7.9 in keeping with his prior recent results and BUN/creatinine 33 and 1.6 which is also unremarkable given his prior history. Urinalysis benign. Case discussed with Dr. Sophia alva who knows this patient very well as he is admitted him before and provided care for him during his episode of necrotizing fasciitis. Dr. alva is where the history and findings and agrees with inpatient [place] his service for further workup and treatment as needed. [] Dragon Disclaimer Dragon Disclaimer This electronic medical record was generated, in whole or in part, using a voice recognition dictation system. Departure Departure Impression: Primary Impression: Syncope Additional Impression: Anemia Disposition: 09 ADMITTED INPATIENT Admitting Physician: Sophia Alva Condition: STABLE Referrals: TEE BENAVIDES MD (PCP) Problem Qualifiers DARRYL STILES MD Apr 29, 2017 16:56
[2017-04-29] MEDS ORDERED: LABETALOL 20 MG/4 ML DISP.SYRIN. IVP PRN (18:00)
[2017-04-29] MEDS ORDERED: HYDROcodone/APAP 7.5/325MG 1 TAB TABLET PO PRN (18:00)
--- NOTE | 2017-04-29 18:04 | PDOC1 ---
History and Physical Date of Admission Date of Admission DATE: 04/29/17 TIME: 17:57 Source Source: Caregiver (Dr. Gonzalez), Chart review, Patient History of Present Illness History of Present Illness seen in ID clinic today for f/u of LLE cellulitis, s/p I+D, with long-term use of wound vac, and poor wound healing, Dr. Kristian Gonzalez wanted to restart Zosyn Bunny passed out in the waiting room, no prodrome, no post-ictal syncope, admit to w/u he has no pain, breathing well, no complaint marked HTN in ER, 215/105 Past Medical History Cardiovascular: HTN, Hyperlipidemia CENTRAL NERVOUS SYSTEM: CVA, Periperal neuropathy, Other GI: GERD Psych: Depression Renal/: Chronic renal insuff, Acute renal failure Endocrine: Diabetes Past Surgical History Past Surgical History: Other Family History Family History: Diabetes, Hypertension Social History Smoke: No ALCOHOL: rare Drugs: None Current Problem List Problem List Problems Medical Problems: (1) Anemia Status: Acute (2) Syncope Status: Acute Problems: Current Medications Current Medications Current Medications Sodium Chloride 1,000 ml @ 999 mls/hr Q1H1M IV Last administered on t 16:08; Start 04/29/17 at 15:28 Active Scripts Active Hydrocodone-Apap 7.5-325 (Hydrocodone Bit/Acetaminophen) 1 Each Tablet 1 Tab PO PRN Q6HRS PRN FENTANYL 50mcg/hr (Fentanyl) 1 Each Patch.td72 1 Patch TP Q3DAYS Reported Tamsulosin Hcl 0.4 Mg Cap.er.24h 1 Cap PO DAILY Zosyn 3.375 Gm Galaxy Bag (Kblpbvgoxiwf-Dwfx-Lfdpglro,Iso) 3.375 Gm/50 Ml Froz.piggy 3.375 Gm IV Q6HRS Novolog (Insulin Aspart) 100 Unit/1 Ml Cartridge 15 Unit SQ TIDAC Pantoprazole Sodium 40 Mg Tablet. 40 Mg PO DAILY Levemir (Insulin Detemir) 100 Unit/1 Ml Vial 22 Unit SQ HS FENTANYL 75mcg/hr (Fentanyl) 1 Each Patch.td72 1 Patch TP Q3DAYS Colace (Docusate Sodium) 100 Mg Capsule 1 Cap PO DAILY Aspirin 325 Mg Tablet 1 Tab PO DAILY Vitamin D3 (Cholecalciferol (Vitamin D3)) 1,000 Unit Tablet 1 Tab PO DAILY Losartan Potassium 50 Mg Tablet 50 Mg PO DAILY Gabapentin 300 Mg Capsule 300 Mg PO BID Celebrex (Celecoxib) 200 Mg Capsule 200 Mg PO BID 30 Days Citalopram Hbr (Citalopram Hydrobromide) 40 Mg Tablet 40 Mg PO DAILY Lipitor (Atorvastatin Calcium) 20 Mg Tablet 20 Mg PO QHS Flomax (Tamsulosin Hcl) 0.4 Mg Cap.er.24h 0.4 Mg PO HS Metformin Hcl 500 Mg Tablet 500 Mg PO BID Plavix (Clopidogrel Bisulfate) 75 Mg Tablet 75 Mg PO DAILY Allergies Allergies: Coded Allergies: morphine (Verified Allergy, Intermediate, 02/19/17) causes hallucinations ROS General: No: Chills, Night Sweats, Fatigue, Malaise, Appetite, Other PSYCHOLOGICAL ROS: No: Anxiety, Behavioral Disorder, Concentration difficultie , Decreased libido, Depression, Disorientation, Hallucinations, Hostility, Irritablity, Memory difficulties, Mood Swings, Obsessive thoughts, Physical abuse, Sexual abuse, Sleep disturbances, Suicidal ideation, Other Eyes: No Blurry vision, No Decreased vision, No Double vision, No Dry eyes, No Excessive tearing, No Eye Pain, No Itchy Eyes, No Loss of vision, No Photophobia , No Scotomata, No Uses contacts, No Uses glasses, No Other HEENT: No: Heacaches, Visual Changes, Hearing change, Nasal congestion, Nasal discharge, Oral lesions, Sinus pain, Sore Throat, Epistaxis, Sneezing, Snoring, Tinnitus, Vertigo, Vocal changes, Other Respiratory: No: Cough, Hemoptysis, Orthopnea, Pleuritic Pain, Shortness of breath, SOB with excertion, Sputum Changes, Stridor, Tachypnea, Wheezing, Other Cardiovascular: No Chest Pain, No Palpitations, No Orthopnea, No Paroxysmal Noc. Dyspnea, No Edema, No Lt Headedness, No Other Gastrointestinal: No Nausea, No Vomiting, No Abdominal Pain, No Diarrhea, No Constipation, No Melena, No Hematochezia, No Other Genitourinary: No Dysuria, No Frequency, No Incontinence, No Hematuria, No Retention, No Discharge, No Urgency, No Pain, No Flank Pain, No Other, No , No , No , No , No , No , No Musculoskeletal: Yes Gait Disturbance, Yes Joint Pain, Yes Joint Swelling, Yes Pain In: (foot), No Muscle Pain, No Muscular Weakness, No Swelling In:, No Other Neurological: Yes Gait Disturbance, No Behavorial Changes, No Bowel/Bladder ControlChng, No Confusion, No Dizziness, No Headaches, No Impaired Coord/balance, No Memory Loss, No Numbness/ Tingling, No Seizures, No Speech Problems, No Tremors, No Visual Changes, No Weakness, No Other Skin: Yes Dry Skin, No Eczema, No Hair Changes, No Lumps, No Mole Changes, No Mottling, No Nail Changes, No Pruritus, No Rash, No Skin Lesion Changes, No Other, No Acne Physical Exam General: Alert, Oriented X3, No acute distress HEENT: Atraumatic, PERRLA, EOMI Lungs: Clear to auscultation, Normal air movement Heart: S1S2, RRR, no gallops, no murmurs Extremities: No cyanosis, Other (tr bilat edema, worse swellign to left ankle and LE where prior cellulitis, ) Skin: No breakdown, No significant lesion Neuro: Sensation intact, Cranial nerves 3-12 NL Psych/Mental Status: Other (flat affect) Vitals Vitals Vital Signs Date Time Temp Pulse Resp B/P (MAP) Pulse Ox O2 Delivery O2 Flow Rate FiO2 04/29/17 14:08 97.9 78 28 143/71 (95) 100 Nasal Cannula 2.0 97.9 Labs Labs Laboratory Tests Test 04/29/17 14:10 04/29/17 15:54 White Blood Count 8.0 x10^3/uL (4.0-11.0) Red Blood Count 2.45 x10^6/uL (4.30-5.70) Hemoglobin 7.9 g/dL (13.0-17.5) Hematocrit 23.4 % (39.0-53.0) Mean Corpuscular Volume 95 fL (79-100) Mean Corpuscular Hemoglobin 32 pg (25-35) Mean Corpuscular Hemoglobin Concent 34 g/dL (31-37) Red Cell Distribution Width 16.1 % (11.5-14.5) Platelet Count 173 x10^3/uL (140-400) Neutrophils (%) (Auto) 71 % (31-73) Lymphocytes (%) (Auto) 13 % (24-48) Monocytes (%) (Auto) 10 % (0-9) Eosinophils (%) (Auto) 5 % (0-3) Basophils (%) (Auto) 1 % (0-3) Neutrophils # (Auto) 5.7 x10^3uL (1.8-7.7) Lymphocytes # (Auto) 1.0 x10^3/uL (1.0-4.8) Monocytes # (Auto) 0.8 x10^3/uL (0.0-1.1) Eosinophils # (Auto) 0.4 x10^3/uL (0.0-0.7) Basophils # (Auto) 0.1 x10^3/uL (0.0-0.2) Urine Collection Type Unknown Urine Color Yellow Urine Clarity Clear Urine pH 5.5 Urine Specific [place] 1.010 Urine Protein Negative mg/dL (NEG-TRACE) Urine Glucose (UA) Negative mg/dL (NEG) Urine Ketones (Stick) Negative mg/dL (NEG) Urine Blood Negative (NEG) Urine Nitrite Negative (NEG) Urine Bilirubin Negative (NEG) Urine Urobilinogen Dipstick 0.2 mg/dL (0.2 mg/dL) Urine Leukocyte Esterase Negative (NEG) Urine RBC 3-5 /HPF (0-2) Urine WBC 1-4 /HPF (0-4) Urine Bacteria 0 /HPF (0-FEW) Urine Hyaline Casts Many /HPF Urine Mucus Mod /LPF Sodium Level 142 mmol/L (136-145) Potassium Level 4.4 mmol/L (3.5-5.1) Chloride Level 103 mmol/L (98-107) Carbon Dioxide Level 31 mmol/L (21-32) Anion Gap 8 (6-14) Blood Urea Nitrogen 33 mg/dL (8-26) Creatinine 1.6 mg/dL (0.7-1.3) Estimated GFR (Cockcroft-Gault) 43.9 BUN/Creatinine Ratio 21 (6-20) Glucose Level 182 mg/dL (70-99) Calcium Level 9.3 mg/dL (8.5-10.1) Total Bilirubin 0.4 mg/dL (0.2-1.0) Aspartate Amino Transf (AST/SGOT) 31 U/L (15-37) Alanine Aminotransferase (ALT/SGPT) 31 U/L (16-63) Alkaline Phosphatase 115 U/L (46-116) Troponin I Quantitative < 0.017 ng/mL (0.000-0.055) Total Protein 7.2 g/dL (6.4-8.2) Albumin 2.8 g/dL (3.4-5.0) Albumin/Globulin Ratio 0.6 (1.0-1.7) Thyroid Stimulating Hormone (TSH) 1.962 uIU/mL (0.358-3.74) Glucose (Fingerstick) 141 mg/dL (70-99) Laboratory Tests Test 04/29/17 14:10 04/29/17 15:54 White Blood Count 8.0 x10^3/uL (4.0-11.0) Red Blood Count 2.45 x10^6/uL (4.30-5.70) Hemoglobin 7.9 g/dL (13.0-17.5) Hematocrit 23.4 % (39.0-53.0) Mean Corpuscular Volume 95 fL (79-100) Mean Corpuscular Hemoglobin 32 pg (25-35) Mean Corpuscular Hemoglobin Concent 34 g/dL (31-37) Red Cell Distribution Width 16.1 % (11.5-14.5) Platelet Count 173 x10^3/uL (140-400) Neutrophils (%) (Auto) 71 % (31-73) Lymphocytes (%) (Auto) 13 % (24-48) Monocytes (%) (Auto) 10 % (0-9) Eosinophils (%) (Auto) 5 % (0-3) Basophils (%) (Auto) 1 % (0-3) Neutrophils # (Auto) 5.7 x10^3uL (1.8-7.7) Lymphocytes # (Auto) 1.0 x10^3/uL (1.0-4.8) Monocytes # (Auto) 0.8 x10^3/uL (0.0-1.1) Eosinophils # (Auto) 0.4 x10^3/uL (0.0-0.7) Basophils # (Auto) 0.1 x10^3/uL (0.0-0.2) Urine Collection Type Unknown Urine Color Yellow Urine Clarity Clear Urine pH 5.5 Urine Specific [place] 1.010 Urine Protein Negative mg/dL (NEG-TRACE) Urine Glucose (UA) Negative mg/dL (NEG) Urine Ketones (Stick) Negative mg/dL (NEG) Urine Blood Negative (NEG) Urine Nitrite Negative (NEG) Urine Bilirubin Negative (NEG) Urine Urobilinogen Dipstick 0.2 mg/dL (0.2 mg/dL) Urine Leukocyte Esterase Negative (NEG) Urine RBC 3-5 /HPF (0-2) Urine WBC 1-4 /HPF (0-4) Urine Bacteria 0 /HPF (0-FEW) Urine Hyaline Casts Many /HPF Urine Mucus Mod /LPF Sodium Level 142 mmol/L (136-145) Potassium Level 4.4 mmol/L (3.5-5.1) Chloride Level 103 mmol/L (98-107) Carbon Dioxide Level 31 mmol/L (21-32) Anion Gap 8 (6-14) Blood Urea Nitrogen 33 mg/dL (8-26) Creatinine 1.6 mg/dL (0.7-1.3) Estimated GFR (Cockcroft-Gault) 43.9 BUN/Creatinine Ratio 21 (6-20) Glucose Level 182 mg/dL (70-99) Calcium Level 9.3 mg/dL (8.5-10.1) Total Bilirubin 0.4 mg/dL (0.2-1.0) Aspartate Amino Transf (AST/SGOT) 31 U/L (15-37) Alanine Aminotransferase (ALT/SGPT) 31 U/L (16-63) Alkaline Phosphatase 115 U/L (46-116) Troponin I Quantitative < 0.017 ng/mL (0.000-0.055) Total Protein 7.2 g/dL (6.4-8.2) Albumin 2.8 g/dL (3.4-5.0) Albumin/Globulin Ratio 0.6 (1.0-1.7) Thyroid Stimulating Hormone (TSH) 1.962 uIU/mL (0.358-3.74) Glucose (Fingerstick) 141 mg/dL (70-99) VTE Prophylaxis Ordered VTE Prophylaxis Devices: Yes VTE Pharmacological Prophylaxi: Yes Assessment/Plan Assessment/Plan accelerated htn and synocpe left leg cellulitis, erythema, s/p I+D and req. wound vac for > 6 weeks seen in ID clinic today, Dr. Kristian Gonzalez wanted to restart [place] Hollis passed out in the waiting room, no prodrome, no post-ictal syncope, admit to w/u morbid obesity, BMI 46. w/ moderately severe malnutrition, serum albumin 2.8 DM2, on insulin htn lipids CAD hx, CVA hx recent BRYEC, had been on dialysis, now with improved renal fxDARYL Katz MD Apr 29, 2017 18:04
[2017-04-29] MEDS ORDERED: PIPERACILLIN/TAZOBACTAM 4.5 GM in IV DEXTROSE 5% 100 ML IV ONE (18:15)
[2017-04-29] MEDS ORDERED: PIPERACILLIN/TAZO IV Push 4.5 GM VIAL. IVP ONE (18:30)
[2017-04-29 19:45] VITALS: BP 131/73
[2017-04-29] MEDS ORDERED: INSULIN DETEMIR 300 UNITS/3 ML INSULN.PEN. SQ SCH (21:00)
[2017-04-29] MEDS ORDERED: TAMSULOSIN 0.4 MG CAP.ER.24H. PO SCH (21:00)
[2017-04-29] MEDS: ATORVASTATIN CALCIUM 20 MG TABLET PO SCH (21:25)
[2017-04-29] MEDS: TAMSULOSIN 0.4 MG CAP.ER.24H. PO SCH (21:25)
[2017-04-29] MEDS: CELECOXIB 200 MG CAPSULE. PO SCH (21:25)
[2017-04-29] MEDS: GABAPENTIN 300 MG CAPSULE. PO SCH (21:25)
[2017-04-29] MEDS ORDERED: HYDROmorphone 2 MG/ML VIAL IV ONE (22:45)
[2017-04-29 23:00] VITALS: BP 150/83
[2017-04-29] MEDS ORDERED: HYDROmorphone 2 MG/ML VIAL IVP PRN (23:00)
[2017-04-30] MEDS ORDERED: TAZOBACTAM IV SCH
[2017-04-30] MEDS ORDERED: PIPERACILLIN IV SCH
[2017-04-30] MEDS: PIPERACILLIN/TAZO IV Push 3.375 GM VIAL. IVP SCH ×4 (00:01→17:59)
[2017-04-30] MEDS: IV NORMAL SALINE 1000ML BAG 1,000 ML IV SCH ×4 (00:02→02:39)
[2017-04-30 03:00] VITALS: BP 145/86
[2017-04-30 07:00] VITALS: BP 121/81
[2017-04-30] MEDS: PANTOPRAZOLE 40 MG TABLET.DR. PO SCH (07:59)
[2017-04-30] MEDS: HYDROcodone/APAP 7.5/325MG 1 TAB TABLET PO PRN (08:00)
[2017-04-30] MEDS: INSULIN ASPART 300 UNITS/3 ML INSULN.PEN SQ SCH ×3 (08:03→18:00)
--- NOTE | 2017-04-30 08:36 | PDOC ---
PROGRESS NOTES Chief Complaint Chief Complaint Syncope Cellulitis ASSESSMENT AND PLAN: 1. Syncope: poss vasovagal. cardiology consult pending 2. HTN: borderline control. increase cozaa 3. L LE cellulitis: on zosyn as per ID service 4. L fxL external hardware removed 2 weeks ago, sites purulent. ortho consult 5. DM2: poorly controlled (chronic). switch to AM levemir, increase dose 6. CAD: no acute issues. cont 2ary prevention meds 7. Hx CVA 8. Hx severe BRYCE with HD requirement: mild BRYCE at admit, prob vasomotor. monitor with IVF, PO fluids 9. Anemia: chronic. nl vitamin levels, ferritin and retic c/w inflammatory anemia. cont low dose PO iron, folate 10. morbid obesity, BMI 46. w/ moderately severe malnutrition, serum albumin 2.8. dietary teaching History of Present Illness History of Present Illness feels ok. worried about foot wounds Vitals Vitals Vital Signs Date Time Temp Pulse Resp B/P (MAP) Pulse Ox O2 Delivery O2 Flow Rate FiO2 04/30/17 08:00 20 93 Room Air 04/30/17 03:00 97.2 87 145/86 (105) 97.2 04/29/17 22:55 2.0 Physical Exam General: Alert, Oriented X3, No acute distress Heart: Regular rate Lungs: Clear Abdomen: Normal bowel sounds, No tenderness Extremities: No cyanosis, Other (L ankle swollen. post heel wound with jay pus, medial and lateral wounds not well healing, with detritus, ?pus) Skin: Other Labs LABS Laboratory Tests Test 04/29/17 14:10 04/29/17 15:54 04/29/17 20:53 04/30/17 07:22 White Blood Count 8.0 x10^3/uL (4.0-11.0) Red Blood Count 2.45 x10^6/uL (4.30-5.70) Hemoglobin 7.9 g/dL (13.0-17.5) Hematocrit 23.4 % (39.0-53.0) Mean Corpuscular Volume 95 fL (79-100) Mean Corpuscular Hemoglobin 32 pg (25-35) Mean Corpuscular Hemoglobin Concent 34 g/dL (31-37) Red Cell Distribution Width 16.1 % (11.5-14.5) Platelet Count 173 x10^3/uL (140-400) Neutrophils (%) (Auto) 71 % (31-73) Lymphocytes (%) (Auto) 13 % (24-48) Monocytes (%) (Auto) 10 % (0-9) Eosinophils (%) (Auto) 5 % (0-3) Basophils (%) (Auto) 1 % (0-3) Neutrophils # (Auto) 5.7 x10^3uL (1.8-7.7) Lymphocytes # (Auto) 1.0 x10^3/uL (1.0-4.8) Monocytes # (Auto) 0.8 x10^3/uL (0.0-1.1) Eosinophils # (Auto) 0.4 x10^3/uL (0.0-0.7) Basophils # (Auto) 0.1 x10^3/uL (0.0-0.2) Urine Collection Type Unknown Urine Color Yellow Urine Clarity Clear Urine pH 5.5 Urine Specific [place] 1.010 Urine Protein Negative mg/dL (NEG-TRACE) Urine Glucose (UA) Negative mg/dL (NEG) Urine Ketones (Stick) Negative mg/dL (NEG) Urine Blood Negative (NEG) Urine Nitrite Negative (NEG) Urine Bilirubin Negative (NEG) Urine Urobilinogen Dipstick 0.2 mg/dL (0.2 mg/dL) Urine Leukocyte Esterase Negative (NEG) Urine RBC 3-5 /HPF (0-2) Urine WBC 1-4 /HPF (0-4) Urine Bacteria 0 /HPF (0-FEW) Urine Hyaline Casts Many /HPF Urine Mucus Mod /LPF Sodium Level 142 mmol/L (136-145) Potassium Level 4.4 mmol/L (3.5-5.1) Chloride Level 103 mmol/L (98-107) Carbon Dioxide Level 31 mmol/L (21-32) Anion Gap 8 (6-14) Blood Urea Nitrogen 33 mg/dL (8-26) Creatinine 1.6 mg/dL (0.7-1.3) Estimated GFR (Cockcroft-Gault) 43.9 BUN/Creatinine Ratio 21 (6-20) Glucose Level 182 mg/dL (70-99) Calcium Level 9.3 mg/dL (8.5-10.1) Total Bilirubin 0.4 mg/dL (0.2-1.0) Aspartate Amino Transf (AST/SGOT) 31 U/L (15-37) Alanine Aminotransferase (ALT/SGPT) 31 U/L (16-63) Alkaline Phosphatase 115 U/L (46-116) Troponin I Quantitative < 0.017 ng/mL (0.000-0.055) Total Protein 7.2 g/dL (6.4-8.2) Albumin 2.8 g/dL (3.4-5.0) Albumin/Globulin Ratio 0.6 (1.0-1.7) Thyroid Stimulating Hormone (TSH) 1.962 uIU/mL (0.358-3.74) Glucose (Fingerstick) 141 mg/dL (70-99) 269 mg/dL (70-99) 244 mg/dL (70-99) NEVIN LONG MD Apr 30, 2017 08:36
[2017-04-30] MEDS ORDERED: LOSARTAN POTASSIUM 50 MG TABLET. PO SCH (09:00)
[2017-04-30] MEDS: metFORMIN 500 MG TABLET PO SCH ×2 (09:29→17:58)
[2017-04-30] MEDS: ASPIRIN 325 MG TABLET PO SCH (09:29)
[2017-04-30] MEDS: CITALOPRAM 20 MG TABLET. PO SCH (09:31)
[2017-04-30] MEDS: DOCUSATE SODIUM 100 MG CAPSULE. PO SCH (09:31)
[2017-04-30] MEDS: CHOLECALCIFEROL (VITAMIN D3) 1,000 UNIT TABLET PO SCH (09:31)
[2017-04-30] MEDS: LOSARTAN POTASSIUM 50 MG TABLET. PO SCH (09:31)
[2017-04-30] MEDS: CELECOXIB 200 MG CAPSULE. PO SCH ×2 (09:31→22:29)
[2017-04-30] MEDS: TAMSULOSIN 0.4 MG CAP.ER.24H. PO SCH ×2 (09:31→22:29)
[2017-04-30] MEDS: CLOPIDOGREL BISULFATE 75 MG TABLET PO SCH (09:31)
[2017-04-30] MEDS: GABAPENTIN 300 MG CAPSULE. PO SCH ×2 (09:32→22:29)
[2017-04-30] MEDS: fentaNYL 75MCG/HR PATCH 1 PATCH PATCH.TD72 TD SCH (09:33)
[2017-04-30] MEDS: INSULIN DETEMIR 300 UNITS/3 ML INSULN.PEN. SQ SCH (09:41)
--- NOTE | 2017-04-30 10:00 | PDOC2 ---
JAMMIE LORENZO ORE MIXER 04/30/17 1000: CARDIAC CONSULT DATE OF CONSULT Date of Consult DATE: 04/30/17 TIME: 09:57 REASON FOR CONSULT Reason for Consult: Syncope REFERRING PHYSICIAN Referring Physician: Dr. Oneal SOURCE Source: Chart review, Patient HISTORY OF PRESENT ILLNESS HISTORY OF PRESENT ILLNESS This is a 62 yo male who presented secondary to syncopal episode. Patient was at ID follow up appointment; reports he was sitting in his wheelchair waiting for cab to arrive when he slummed over in his wheelchair and "passed out." EMS was called. Patient reports feeling dizzy prior. Denies any shortness of breath , palpitations, diaphoresis, or chest pain. Per ER documentation, patient admitted that he may have taken an extra dose of benzodiazepine that morning. Was sleepy appearing upon exam. Patient is presently unsure of this and denies any drowsiness prior to passing out. No recent dizziness/syncopal episodes or further dizziness. PAST MEDICAL HISTORY Cardiovascular: HTN, Hyperlipidemia Pulmonary: Other (DAVID) CENTRAL NERVOUS SYSTEM: CVA, Periperal neuropathy GI: GERD Heme/Onc: Anemia NOS Hepatobiliary: No pertinent hx Psych: Depression Musculoskeletal: Osteoarthritis Rheumatologic: No pertinent hx Infectious disease: No pertinent hx Renal/: Chronic renal insuff, Acute renal failure Endocrine: Diabetes Dermatology: Other (necrotizing fasciitis ) PAST SURGICAL HISTORY Past Surgical History: Cholecystectomy, Hernia Repair FAMILY HISTORY Family History: Diabetes SOCIAL HISTORY Smoke: No ALCOHOL: none Drugs: None Lives: [facility] ([facility] for rehab) CURRENT MEDICATIONS CURRENT MEDICATIONS Current Medications Medications (Trade) Dose Ordered Sig/Serenity Route PRN Reason Start Time Stop Time Status Last Admin Dose Admin Sodium Chloride 1,000 ml @ 999 mls/hr Q1H1M IV 04/29/17 15:28 04/30/17 02:42 DC 04/30/17 00:02 Aspirin (Omkar Aspirin) 325 mg DAILY PO 04/30/17 09:00 04/30/17 09:29 Atorvastatin Calcium (Lipitor) 20 mg QHS PO 04/29/17 21:00 04/29/17 21:25 Celecoxib (CeleBREX) 200 mg BID PO 04/29/17 21:00 04/30/17 09:31 Vitamin D (Vitamin D3) 1,000 unit DAILY PO 04/30/17 09:00 04/30/17 09:31 Clopidogrel Bisulfate (Plavix) 75 mg DAILY PO 04/30/17 09:00 04/30/17 09:31 Docusate Sodium (Colace) 100 mg DAILY PO 04/30/17 09:00 04/30/17 09:31 Fentanyl (Duragesic 75mcg/ Hr Patch) 1 patch Q3DAYS TD 04/30/17 09:00 04/30/17 09:33 Acetaminophen/ Hydrocodone Bitart (Lortab 7.5/325) 1 tab PRN Q6HRS PRN PO MODERATE PAIN 04/29/17 18:00 04/29/17 22:47 DC 04/29/17 21:25 Metformin HCl (Glucophage) 500 mg BIDWMEALS PO 04/30/17 08:00 04/30/17 09:29 Pantoprazole Sodium (Protonix) 40 mg DAILYAC PO 04/30/17 07:30 04/30/17 07:59 Tamsulosin HCl (Flomax) 0.4 mg BID PO 04/29/17 21:00 04/30/17 09:31 Citalopram Hydrobromide (CeleXA) 40 mg DAILY PO 04/30/17 09:00 04/30/17 09:31 Gabapentin (Neurontin) 300 mg BID PO 04/29/17 21:00 04/30/17 09:32 Insulin Aspart (NovoLOG) 15 units TIDAC SQ 04/30/17 07:30 04/30/17 08:03 Insulin Detemir (Levemir) 22 units QHS SQ 04/29/17 21:00 04/30/17 08:32 DC 04/29/17 21:26 Piperacillin Sod/ Tazobactam Sod (Zosyn) 4.5 gm 1X ONCE IVP 04/29/17 18:30 04/29/17 18:31 DC 04/29/17 18:57 Piperacillin Sod/ Tazobactam Sod (Zosyn) 3.375 gm Q6HRS IVP 04/30/17 00:00 04/30/17 06:40 Hydromorphone HCl (Dilaudid) 1 mg 1X ONCE IV 04/29/17 22:45 04/29/17 22:46 DC 04/29/17 22:55 Acetaminophen/ Hydrocodone Bitart (Lortab 7.5/325) 2 tab PRN Q6HRS PRN PO MODERATE PAIN 04/29/17 23:00 04/30/17 08:00 Insulin Detemir (Levemir) 25 units DAILY08 SQ 04/30/17 09:00 04/30/17 09:41 Losartan Potassium (Cozaar) 100 mg DAILY PO 04/30/17 09:00 04/30/17 09:31 ALLERGIES ALLERGIES: Coded Allergies: morphine (Verified Allergy, Intermediate, 02/19/17) causes hallucinations ROS Review of System 14 point ROS conducted with pertinent positives noted above in HPI PHYSICAL EXAM General: Alert, Oriented X3, Cooperative, No acute distress HEENT: Atraumatic, Mucous membr. moist/pink Lungs: Clear to auscultation, Normal air movement Heart: Regular rate, Normal S1, Normal S2, Other (soft sytolic murmur, no acute event or pauses noted on telemetry) Abdomen: Soft, No tenderness, Other (obese ) Extremities: Other (LLE edema ) Skin: Other (left ankle and right heel wound with DRSG intact) Neuro: Normal speech, Sensation intact Psych/Mental Status: Mental status NL, Mood NL MUSCULOSKELETAL: Osteoarthritic changes both hands VITALS VITALS Vital Signs Date Time Temp Pulse Resp B/P (MAP) Pulse Ox O2 Delivery O2 Flow Rate FiO2 04/30/17 09:33 20 Nasal Cannula 1.0 04/30/17 09:31 88 121/81 04/30/17 08:00 93 04/30/17 07:00 97.8 97.8 LABS Lab: Laboratory Tests Test 04/29/17 14:10 04/29/17 15:54 04/29/17 20:53 04/30/17 07:22 White Blood Count 8.0 x10^3/uL (4.0-11.0) Red Blood Count 2.45 x10^6/uL (4.30-5.70) Hemoglobin 7.9 g/dL (13.0-17.5) Hematocrit 23.4 % (39.0-53.0) Mean Corpuscular Volume 95 fL (79-100) Mean Corpuscular Hemoglobin 32 pg (25-35) Mean Corpuscular Hemoglobin Concent 34 g/dL (31-37) Red Cell Distribution Width 16.1 % (11.5-14.5) Platelet Count 173 x10^3/uL (140-400) Neutrophils (%) (Auto) 71 % (31-73) Lymphocytes (%) (Auto) 13 % (24-48) Monocytes (%) (Auto) 10 % (0-9) Eosinophils (%) (Auto) 5 % (0-3) Basophils (%) (Auto) 1 % (0-3) Neutrophils # (Auto) 5.7 x10^3uL (1.8-7.7) Lymphocytes # (Auto) 1.0 x10^3/uL (1.0-4.8) Monocytes # (Auto) 0.8 x10^3/uL (0.0-1.1) Eosinophils # (Auto) 0.4 x10^3/uL (0.0-0.7) Basophils # (Auto) 0.1 x10^3/uL (0.0-0.2) Urine Collection Type Unknown Urine Color Yellow Urine Clarity Clear Urine pH 5.5 Urine Specific [place] 1.010 Urine Protein Negative mg/dL (NEG-TRACE) Urine Glucose (UA) Negative mg/dL (NEG) Urine Ketones (Stick) Negative mg/dL (NEG) Urine Blood Negative (NEG) Urine Nitrite Negative (NEG) Urine Bilirubin Negative (NEG) Urine Urobilinogen Dipstick 0.2 mg/dL (0.2 mg/dL) Urine Leukocyte Esterase Negative (NEG) Urine RBC 3-5 /HPF (0-2) Urine WBC 1-4 /HPF (0-4) Urine Bacteria 0 /HPF (0-FEW) Urine Hyaline Casts Many /HPF Urine Mucus Mod /LPF Sodium Level 142 mmol/L (136-145) Potassium Level 4.4 mmol/L (3.5-5.1) Chloride Level 103 mmol/L (98-107) Carbon Dioxide Level 31 mmol/L (21-32) Anion Gap 8 (6-14) Blood Urea Nitrogen 33 mg/dL (8-26) Creatinine 1.6 mg/dL (0.7-1.3) Estimated GFR (Cockcroft-Gault) 43.9 BUN/Creatinine Ratio 21 (6-20) Glucose Level 182 mg/dL (70-99) Calcium Level 9.3 mg/dL (8.5-10.1) Total Bilirubin 0.4 mg/dL (0.2-1.0) Aspartate Amino Transf (AST/SGOT) 31 U/L (15-37) Alanine Aminotransferase (ALT/SGPT) 31 U/L (16-63) Alkaline Phosphatase 115 U/L (46-116) Troponin I Quantitative < 0.017 ng/mL (0.000-0.055) Total Protein 7.2 g/dL (6.4-8.2) Albumin 2.8 g/dL (3.4-5.0) Albumin/Globulin Ratio 0.6 (1.0-1.7) Thyroid Stimulating Hormone (TSH) 1.962 uIU/mL (0.358-3.74) Glucose (Fingerstick) 141 mg/dL (70-99) 269 mg/dL (70-99) 244 mg/dL (70-99) ECHOCARDIOGRAM ECHOCARDIOGRAM <Conclusion> The Left Ventricle is mildly dilated. The left ventricular systolic function is normal and the ejection fraction is within normal range. The Ejection Fraction is 60-65%. There is normal left ventricular wall thickness. The interatrial septum is intact with no evidence for an atrial septal defect or patent foramen ovale as noted on 2-D or Doppler imaging. Injection of agitated saline bubbles documented no interatrial shunt. There is no significant aortic valvular stenosis. Doppler and Color Flow revealed no significant aortic regurgitation. Doppler and Color Flow revealed trace mitral regurgitation. Doppler and Color Flow revealed trace tricuspid regurgitation. DATE: 03/12/17 1221 ASSESSMENT/PLAN ASSESSMENT/PLAN 1. Syncope; no clear cardiac source 2. Hypertension 3. Hyperlipemia 4. H/o CVA 5. Diabetes, II 6. CKD 7. Lower extremity wounds 8. Anemia Recommendations Check orthos Monitor telemetry Supportive care Could consider outpatient event monitor Problems: KENDALL SOLIS MD 05/03/17 0050: CARDIAC CONSULT ALLERGIES ALLERGIES: Coded Allergies: morphine (Verified Allergy, Intermediate, 02/19/17) causes hallucinations ASSESSMENT/PLAN ASSESSMENT/PLAN Late entry for 04/30/2017 Pt. seen and examined. 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 Thank you for this consultation Problems: BJJAMMIE FAIZAN Apr 30, 2017 10:00 KENDALL SOLIS MD May 03, 2017 00:50
[2017-04-30 11:00] VITALS: BP 120/68
--- NOTE | 2017-04-30 11:53 | PDOC ---
Infectious Disease Note Subjective Subjective Known to service see consult 03/24. Was seen in ID office 04/29 with instructions to start Zosyn but had a syncopal episode in the waiting room after being seen. States he may or may not have taken pain med prior to syncope No F/c/s/n/v/d/SOA/rash ROS ROS GEN: Denies fevers, chills, sweats HEENT: Denies blurred vision, sore throat CV: Denies chest pain RESP: Denies shortness of air, cough GI: Denies n/v/d NEURO: Denies confusion, dizziness MSK: Denies weakness, joint pain/swelling Vital Sign Vital Signs Vital Signs Date Time Temp Pulse Resp B/P (MAP) Pulse Ox O2 Delivery O2 Flow Rate FiO2 04/30/17 09:33 20 Nasal Cannula 1.0 04/30/17 09:31 88 121/81 04/30/17 08:00 93 04/30/17 07:00 97.8 97.8 Physical Exam PHYSICAL EXAM GENERAL: NAD, Alert HEENT: PERRL, OC/OP - clean NECK: Supple, no JVD, no LN LUNGS: Clear HEART: S1S2, no gallop, no murmur ABD: Soft, NT, no organomegaly, no rebound obese EXT: LLE with open wounds that are draining. Achilles area soft. R foot wound is clean DIRECTOR OF GLOBAL SALES: Alert, 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, no focal neurologic deficit SKIN: No rash IV: RUE midline - clean Labs Lab Laboratory Tests Test 04/29/17 14:10 04/29/17 15:54 04/29/17 20:53 04/30/17 07:22 White Blood Count 8.0 x10^3/uL (4.0-11.0) Red Blood Count 2.45 x10^6/uL (4.30-5.70) Hemoglobin 7.9 g/dL (13.0-17.5) Hematocrit 23.4 % (39.0-53.0) Mean Corpuscular Volume 95 fL (79-100) Mean Corpuscular Hemoglobin 32 pg (25-35) Mean Corpuscular Hemoglobin Concent 34 g/dL (31-37) Red Cell Distribution Width 16.1 % (11.5-14.5) Platelet Count 173 x10^3/uL (140-400) Neutrophils (%) (Auto) 71 % (31-73) Lymphocytes (%) (Auto) 13 % (24-48) Monocytes (%) (Auto) 10 % (0-9) Eosinophils (%) (Auto) 5 % (0-3) Basophils (%) (Auto) 1 % (0-3) Neutrophils # (Auto) 5.7 x10^3uL (1.8-7.7) Lymphocytes # (Auto) 1.0 x10^3/uL (1.0-4.8) Monocytes # (Auto) 0.8 x10^3/uL (0.0-1.1) Eosinophils # (Auto) 0.4 x10^3/uL (0.0-0.7) Basophils # (Auto) 0.1 x10^3/uL (0.0-0.2) Urine Collection Type Unknown Urine Color Yellow Urine Clarity Clear Urine pH 5.5 Urine Specific [place] 1.010 Urine Protein Negative mg/dL (NEG-TRACE) Urine Glucose (UA) Negative mg/dL (NEG) Urine Ketones (Stick) Negative mg/dL (NEG) Urine Blood Negative (NEG) Urine Nitrite Negative (NEG) Urine Bilirubin Negative (NEG) Urine Urobilinogen Dipstick 0.2 mg/dL (0.2 mg/dL) Urine Leukocyte Esterase Negative (NEG) Urine RBC 3-5 /HPF (0-2) Urine WBC 1-4 /HPF (0-4) Urine Bacteria 0 /HPF (0-FEW) Urine Hyaline Casts Many /HPF Urine Mucus Mod /LPF Sodium Level 142 mmol/L (136-145) Potassium Level 4.4 mmol/L (3.5-5.1) Chloride Level 103 mmol/L (98-107) Carbon Dioxide Level 31 mmol/L (21-32) Anion Gap 8 (6-14) Blood Urea Nitrogen 33 mg/dL (8-26) Creatinine 1.6 mg/dL (0.7-1.3) Estimated GFR (Cockcroft-Gault) 43.9 BUN/Creatinine Ratio 21 (6-20) Glucose Level 182 mg/dL (70-99) Calcium Level 9.3 mg/dL (8.5-10.1) Total Bilirubin 0.4 mg/dL (0.2-1.0) Aspartate Amino Transf (AST/SGOT) 31 U/L (15-37) Alanine Aminotransferase (ALT/SGPT) 31 U/L (16-63) Alkaline Phosphatase 115 U/L (46-116) Troponin I Quantitative < 0.017 ng/mL (0.000-0.055) Total Protein 7.2 g/dL (6.4-8.2) Albumin 2.8 g/dL (3.4-5.0) Albumin/Globulin Ratio 0.6 (1.0-1.7) Thyroid Stimulating Hormone (TSH) 1.962 uIU/mL (0.358-3.74) Glucose (Fingerstick) 141 mg/dL (70-99) 269 mg/dL (70-99) 244 mg/dL (70-99) Test 04/30/17 10:53 Glucose (Fingerstick) 275 mg/dL (70-99) Micro EXAM: Left ankle 2 views. HISTORY: Follow-up arthrodesis COMPARISON: 04/02/2017 FINDINGS: Two views of the left ankle are obtained. There are changes of triple arthrodesis with a retrograde intramedullary nail traversing the calcaneus, talus and distal tibia. This is fixed by screws in the talus, calcaneus and tibia. Alignment is near-anatomic. There are fracture deformities of the medial and lateral malleolar line with evidence of healing but no solid bridging. The arthrodesis is not yet solidly fused. A calcaneal fracture is also partially visualized. There are tracts from removal of prior tibial hardware. Atherosclerotic calcifications are noted. There is soft tissue swelling about the ankle. IMPRESSION: 1. Triple arthrodesis. No solid healing yet. DICTATED and SIGNED BY: ANGELICA WILSON MD DATE: 04/23/171415 Objective Assessment 1. Left ankle wound with infection and hardware in place, internal as well as external hardware.Seen in ID office and zosyn recommended to restart 2. Right calcaneal wound. 3. Syncope, which may have been related to pain medication. He has been back to his normal. 4. Diabetes. 5. History of cerebrovascular accident. 6. Hypertension. 7. Obesity. Plan Plan of Care Cont Zosyn Await Cardiology w/u Does not want amputation but needs an amputation F/u labs in am Wound care RADHA Banuelos MD Apr 30, 2017 11:53
[2017-04-30 14:57] VITALS: BP 109/67
[2017-04-30 19:59] VITALS: BP 116/63
[2017-04-30] MEDS: ATORVASTATIN CALCIUM 20 MG TABLET PO SCH (22:29)
[2017-04-30 23:15] VITALS: BP 95/64
[2017-05-01] VITALS (11 sets, daily range): BP systolic 111–149; BP diastolic 55–83
[2017-05-01] MEDS: PIPERACILLIN/TAZO IV Push 3.375 GM VIAL. IVP SCH ×5 (00:03→22:51)
[2017-05-01 06:48] LABS: BASO # 0.1 x10^3/uL (0.0-0.2); BASO % 1 % (0-3); EOS % 6 % (0-3); LYMPH # 0.7 x10^3/uL (1.0-4.8); LYMPH % 11 % (24-48); MEAN CORPUSCULAR HEMOGLOBIN 32 pg (25-35); MEAN CORPUSCULAR HGB CONC 34 g/dL (31-37); MEAN CORPUSCULAR VOLUME 94 fL (79-100); MONO % 8 % (0-9); NEUT % 74 % (31-73); PLATELET COUNT 171 x10^3/uL (140-400); RED BLOOD COUNT 1.87 x10^6/uL (4.30-5.70); RED CELL DISTRIBUTION WIDTH 16.3 % (11.5-14.5)
[2017-05-01 06:49] LABS: CALCIUM 8.7 mg/dL (8.5-10.1); CREATININE 1.6 mg/dL (0.7-1.3); GFR 43.9; POTASSIUM 4.4 mmol/L (3.5-5.1)
[2017-05-01 06:54] LABS: HEMATOCRIT 17.7 % (39.0-53.0)
[2017-05-01] MEDS: metFORMIN 500 MG TABLET PO SCH ×2 (08:32→17:08)
[2017-05-01] MEDS: CITALOPRAM 20 MG TABLET. PO SCH (08:32)
[2017-05-01] MEDS: ASPIRIN 325 MG TABLET PO SCH (08:32)
[2017-05-01] MEDS: LOSARTAN POTASSIUM 50 MG TABLET. PO SCH (08:32)
[2017-05-01] MEDS: CELECOXIB 200 MG CAPSULE. PO SCH ×2 (08:32→20:30)
[2017-05-01] MEDS: CHOLECALCIFEROL (VITAMIN D3) 1,000 UNIT TABLET PO SCH (08:32)
[2017-05-01] MEDS: CLOPIDOGREL BISULFATE 75 MG TABLET PO SCH (08:33)
[2017-05-01] MEDS: GABAPENTIN 300 MG CAPSULE. PO SCH ×2 (08:33→20:30)
[2017-05-01] MEDS: PANTOPRAZOLE 40 MG TABLET.DR. PO SCH (08:33)
[2017-05-01] MEDS: TAMSULOSIN 0.4 MG CAP.ER.24H. PO SCH ×2 (08:33→20:31)
[2017-05-01] MEDS: DOCUSATE SODIUM 100 MG CAPSULE. PO SCH (08:34)
[2017-05-01] MEDS: INSULIN ASPART 300 UNITS/3 ML INSULN.PEN SQ SCH ×3 (08:38→17:10)
[2017-05-01] MEDS: INSULIN DETEMIR 300 UNITS/3 ML INSULN.PEN. SQ SCH (08:39)
--- NOTE | 2017-05-01 14:19 | PDOC ---
Infectious Disease Note Subjective Subjective Feeling ok Denies pain nonambulatory ROS ROS GEN: Denies fevers, chills, sweats CV: Denies chest pain RESP: Denies shortness of air, cough GI: Denies n/v/d NEURO: Denies confusion, dizziness Vital Sign Vital Signs Vital Signs Date Time Temp Pulse Resp B/P (MAP) Pulse Ox O2 Delivery O2 Flow Rate FiO2 05/01/17 13:51 97.7 82 18 118/63 97.7 05/01/17 07:45 Nasal Cannula 2.0 05/01/17 07:00 95 Physical Exam PHYSICAL EXAM Alert, relaxed appearance, getting blood transfusion LUNGS: Clear HEART: S1S2 ABD: Obese, soft, NT EXT: 1+ edema BLE. 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, 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, no focal neurologic deficit SKIN: No rash IV: ok Labs Lab Laboratory Tests Test 04/30/17 16:47 04/30/17 21:10 05/01/17 06:25 05/01/17 07:04 Glucose (Fingerstick) 235 mg/dL (70-99) 265 mg/dL (70-99) 271 mg/dL (70-99) White Blood Count 7.0 x10^3/uL (4.0-11.0) Red Blood Count 1.87 x10^6/uL (4.30-5.70) Hemoglobin 6.0 g/dL (13.0-17.5) Hematocrit 17.7 % (39.0-53.0) Mean Corpuscular Volume 94 fL (79-100) Mean Corpuscular Hemoglobin 32 pg (25-35) Mean Corpuscular Hemoglobin Concent 34 g/dL (31-37) Red Cell Distribution Width 16.3 % (11.5-14.5) Platelet Count 171 x10^3/uL (140-400) Neutrophils (%) (Auto) 74 % (31-73) Lymphocytes (%) (Auto) 11 % (24-48) Monocytes (%) (Auto) 8 % (0-9) Eosinophils (%) (Auto) 6 % (0-3) Basophils (%) (Auto) 1 % (0-3) Neutrophils # (Auto) 5.2 x10^3uL (1.8-7.7) Lymphocytes # (Auto) 0.7 x10^3/uL (1.0-4.8) Monocytes # (Auto) 0.6 x10^3/uL (0.0-1.1) Eosinophils # (Auto) 0.4 x10^3/uL (0.0-0.7) Basophils # (Auto) 0.1 x10^3/uL (0.0-0.2) Sodium Level 140 mmol/L (136-145) Potassium Level 4.4 mmol/L (3.5-5.1) Chloride Level 103 mmol/L (98-107) Carbon Dioxide Level 34 mmol/L (21-32) Anion Gap 3 (6-14) Blood Urea Nitrogen 36 mg/dL (8-26) Creatinine 1.6 mg/dL (0.7-1.3) Estimated GFR (Cockcroft-Gault) 43.9 Glucose Level 286 mg/dL (70-99) Calcium Level 8.7 mg/dL (8.5-10.1) Test 05/01/17 11:00 Glucose (Fingerstick) 331 mg/dL (70-99) Objective Assessment 1. Left ankle wound with infection and hardware in place. - -hx proteus, PSA, Enterococcus and MSSA 2. Right calcaneal wound. 3. Syncope, which may have been related to pain medication. back to baseline. 4. Diabetes. 5. History of cerebrovascular accident. 6. Hypertension. 7. Obesity. 8. Anemia Plan Plan of Care Cont Kashmir Michaels Does not want amputation but needs an amputation F/u labs in am NPO after midnight. scheduled for right heel and left foot/ankle I and D with wound vac and possible hardware removal. ULISSES CABEZAS APRN May 01, 2017 14:19
--- NOTE | 2017-05-01 14:47 | PDOC ---
PROGRESS NOTES Chief Complaint Chief Complaint Syncope Cellulitis ASSESSMENT AND PLAN: 1. Syncope: poss vasovagal or related to anemia. no obvious cardiac source. 2. HTN: borderline control. increased cozaar with now good control 3. L LE cellulitis: on zosyn as per ID service 4. L fxL external hardware removed 2 weeks ago, sites purulent. ortho consult 5. DM2: poorly controlled (chronic). switch to AM levemir, increase dose 6. CAD: no acute issues. cont 2ary prevention meds 7. Hx CVA 8. Hx severe BRYCE with HD requirement: mild BRYCE at admit, prob vasomotor. monitor with IVF, PO fluids 9. Anemia: chronic, worsening. trasfuse PRBCx1. nl vitamin levels, ferritin and retic c/w inflammatory anemia. no sign of GIB. cont low dose PO iron, folate 10. morbid obesity, BMI 46. w/ moderately severe malnutrition, serum albumin 2.8. dietary teaching History of Present Illness History of Present Illness denies pain. no other c/o Vitals Vitals Vital Signs Date Time Temp Pulse Resp B/P (MAP) Pulse Ox O2 Delivery O2 Flow Rate FiO2 05/01/17 14:38 97.5 87 20 118/56 (76) 95 Room Air 97.5 05/01/17 07:45 2.0 Physical Exam General: Alert, Oriented X3, Cooperative, No acute distress Heart: Regular rate Lungs: Clear Abdomen: Normal bowel sounds, No tenderness Extremities: No cyanosis, Other (L ankle swollen. post heel wound with jay pus, medial and lateral wounds not well healing, with detritus, ?pus) Labs LABS Laboratory Tests Test 04/30/17 16:47 04/30/17 21:10 05/01/17 06:25 05/01/17 07:04 Glucose (Fingerstick) 235 mg/dL (70-99) 265 mg/dL (70-99) 271 mg/dL (70-99) White Blood Count 7.0 x10^3/uL (4.0-11.0) Red Blood Count 1.87 x10^6/uL (4.30-5.70) Hemoglobin 6.0 g/dL (13.0-17.5) Hematocrit 17.7 % (39.0-53.0) Mean Corpuscular Volume 94 fL (79-100) Mean Corpuscular Hemoglobin 32 pg (25-35) Mean Corpuscular Hemoglobin Concent 34 g/dL (31-37) Red Cell Distribution Width 16.3 % (11.5-14.5) Platelet Count 171 x10^3/uL (140-400) Neutrophils (%) (Auto) 74 % (31-73) Lymphocytes (%) (Auto) 11 % (24-48) Monocytes (%) (Auto) 8 % (0-9) Eosinophils (%) (Auto) 6 % (0-3) Basophils (%) (Auto) 1 % (0-3) Neutrophils # (Auto) 5.2 x10^3uL (1.8-7.7) Lymphocytes # (Auto) 0.7 x10^3/uL (1.0-4.8) Monocytes # (Auto) 0.6 x10^3/uL (0.0-1.1) Eosinophils # (Auto) 0.4 x10^3/uL (0.0-0.7) Basophils # (Auto) 0.1 x10^3/uL (0.0-0.2) Sodium Level 140 mmol/L (136-145) Potassium Level 4.4 mmol/L (3.5-5.1) Chloride Level 103 mmol/L (98-107) Carbon Dioxide Level 34 mmol/L (21-32) Anion Gap 3 (6-14) Blood Urea Nitrogen 36 mg/dL (8-26) Creatinine 1.6 mg/dL (0.7-1.3) Estimated GFR (Cockcroft-Gault) 43.9 Glucose Level 286 mg/dL (70-99) Calcium Level 8.7 mg/dL (8.5-10.1) Test 05/01/17 11:00 Glucose (Fingerstick) 331 mg/dL (70-99) NEVIN LONG MD May 01, 2017 14:47
--- NOTE | 2017-05-01 19:00 | CONS ---
DATE OF CONSULTATION: 05/01/2017 REFERRING PROVIDER: Sophia Oneal MD. CONSULTING PROVIDER: Wiley Floyd MD. REASON FOR CONSULTATION: Left foot and ankle wounds. CHIEF COMPLAINT: Drainage and wounds from left foot and ankle. HISTORY OF PRESENT ILLNESS: The patient is a pleasant 62-year-old gentleman with multiple medical comorbidities and complicated history regarding his left foot and ankle. In short, he has a hindfoot nail in place and has underwent dynamization of this. It has not shown any signs of union. He currently tells me he does not really hurt down there, but he has dense neuropathy present. He tells me that he is not able to walk much at all. He was admitted after passing out in the waiting room in Infectious Disease. He currently denies any other complaints or concern to me right now. PAST MEDICAL HISTORY: Hypertension, hyperlipidemia, peripheral neuropathy, history of stroke, GERD, depression, renal insufficiency, diabetes. PAST SURGICAL HISTORY: Multiple left foot and ankle procedures. FAMILY HISTORY: Diabetes, hypertension. SOCIAL HISTORY: No tobacco. Does use alcohol occasionally. ALLERGIES: MORPHINE. MEDICATIONS: Reviewed, please see MRAD. REVIEW OF SYSTEMS: Twelve-point review of systems negative except as per HPI. PHYSICAL EXAMINATION: VITAL SIGNS: Reviewed. BMI 44.5. He has been afebrile since admission. GENERAL: The patient alert and oriented, in no acute distress. Mood and affect are appropriate. HEENT: Normocephalic, atraumatic. Extraocular muscles are intact. CARDIOVASCULAR: Regular rate and rhythm. Mild edema bilateral ankles. ABDOMEN: Obese, nontender. EXTREMITIES: Examination of bilateral lower extremities reveals a superficial right heel wound with some seropurulent drainage present. No underlying fluctuance. I am not able to probe deep. Examination of his left lower extremity reveals nonhealing wounds from his ex-fix pin sites. He has medial, lateral and posterior wounds around his ankle and heel with necrotic debris and purulence present. There is a small amount of surrounding fluctuance and erythema around these wounds. He has diminished sensation bilateral feet and ankles. IMAGING STUDIES: Most recent foot and ankle x-rays were reviewed. He has a hindfoot nail in place without any signs of bony union. These x-rays are interpreted by myself. The report was also reviewed. 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 PLAN: I did discuss with the patient different treatment options including I and D and wound VAC versus below-knee amputation. He has questions about the below-knee amputation. I will request David from [facility] comes over to discuss prosthetic use more in depth with him. The patient does not feel ready to proceed with below-knee amputation and really the only thing he was agreeable today was I and D and possible hardware removal and wound VAC. We will plan on doing this on Wednesday. WILEY FLOYD MD DR: JENSEN/annika JOB#: [id number] / [id number] TOMAS
[2017-05-01] MEDS: HYDROcodone/APAP 7.5/325MG 1 TAB TABLET PO PRN (20:30)
[2017-05-01] MEDS: LACTOBACILLUS RHAMNOSUS GG 1 CAPSULE. PO SCH (20:30)
[2017-05-01] MEDS: ATORVASTATIN CALCIUM 20 MG TABLET PO SCH (20:31)
[2017-05-01] MEDS ORDERED: INSULIN ASPART 300 UNITS/3 ML INSULN.PEN SQ ONE (22:45)
[2017-05-02] VITALS (21 sets, daily range): BP systolic 105–191; BP diastolic 69–97
[2017-05-02] MEDS: PIPERACILLIN/TAZO IV Push 3.375 GM VIAL. IVP SCH ×3 (04:57→19:17)
[2017-05-02 05:01] LABS: BASO # 0.1 x10^3/uL (0.0-0.2); BASO % 1 % (0-3); EOS % 6 % (0-3); LYMPH # 0.8 x10^3/uL (1.0-4.8); LYMPH % 12 % (24-48); MEAN CORPUSCULAR HEMOGLOBIN 32 pg (25-35); MEAN CORPUSCULAR HGB CONC 34 g/dL (31-37); MEAN CORPUSCULAR VOLUME 94 fL (79-100); MONO % 10 % (0-9); NEUT % 72 % (31-73); PLATELET COUNT 165 x10^3/uL (140-400); RED BLOOD COUNT 1.99 x10^6/uL (4.30-5.70); RED CELL DISTRIBUTION WIDTH 16.3 % (11.5-14.5); WHITE BLOOD COUNT 7.1 x10^3/uL (4.0-11.0)
[2017-05-02 05:07] LABS: HEMATOCRIT 18.6 % (39.0-53.0); HEMOGLOBIN 6.4 g/dL (13.0-17.5)
[2017-05-02 05:37] LABS: ALBUMIN 2.6 g/dL (3.4-5.0); ALBUMIN/GLOBULIN RATIO 0.6 (1.0-1.7); CALCIUM 9.1 mg/dL (8.5-10.1); CREATININE 1.5 mg/dL (0.7-1.3); GFR 47.3; POTASSIUM 4.6 mmol/L (3.5-5.1); TOTAL BILIRUBIN 0.4 mg/dL (0.2-1.0); TOTAL PROTEIN 6.9 g/dL (6.4-8.2)
--- NOTE | 2017-05-02 07:47 | PDOC ---
ORTHO PROGRESS NOTES Subjective Pain tolerable, no new complaints Vitals Vital Signs Date Time Temp Pulse Resp B/P (MAP) Pulse Ox O2 Delivery O2 Flow Rate FiO2 05/02/17 07:36 98.0 83 20 135/84 (101) 93 Nasal Cannula 2.0 98.0 Labs Laboratory Tests Test 04/30/17 10:53 04/30/17 16:47 04/30/17 21:10 05/01/17 06:25 Glucose (Fingerstick) 275 mg/dL (70-99) 235 mg/dL (70-99) 265 mg/dL (70-99) White Blood Count 7.0 x10^3/uL (4.0-11.0) Red Blood Count 1.87 x10^6/uL (4.30-5.70) Hemoglobin 6.0 g/dL (13.0-17.5) Hematocrit 17.7 % (39.0-53.0) Mean Corpuscular Volume 94 fL (79-100) Mean Corpuscular Hemoglobin 32 pg (25-35) Mean Corpuscular Hemoglobin Concent 34 g/dL (31-37) Red Cell Distribution Width 16.3 % (11.5-14.5) Platelet Count 171 x10^3/uL (140-400) Neutrophils (%) (Auto) 74 % (31-73) Lymphocytes (%) (Auto) 11 % (24-48) Monocytes (%) (Auto) 8 % (0-9) Eosinophils (%) (Auto) 6 % (0-3) Basophils (%) (Auto) 1 % (0-3) Neutrophils # (Auto) 5.2 x10^3uL (1.8-7.7) Lymphocytes # (Auto) 0.7 x10^3/uL (1.0-4.8) Monocytes # (Auto) 0.6 x10^3/uL (0.0-1.1) Eosinophils # (Auto) 0.4 x10^3/uL (0.0-0.7) Basophils # (Auto) 0.1 x10^3/uL (0.0-0.2) Sodium Level 140 mmol/L (136-145) Potassium Level 4.4 mmol/L (3.5-5.1) Chloride Level 103 mmol/L (98-107) Carbon Dioxide Level 34 mmol/L (21-32) Anion Gap 3 (6-14) Blood Urea Nitrogen 36 mg/dL (8-26) Creatinine 1.6 mg/dL (0.7-1.3) Estimated GFR (Cockcroft-Gault) 43.9 Glucose Level 286 mg/dL (70-99) Calcium Level 8.7 mg/dL (8.5-10.1) Test 05/01/17 07:04 05/01/17 11:00 05/01/17 16:16 05/01/17 20:48 Glucose (Fingerstick) 271 mg/dL (70-99) 331 mg/dL (70-99) 358 mg/dL (70-99) 409 mg/dL (70-99) Test 05/02/17 04:00 05/02/17 07:04 White Blood Count 7.1 x10^3/uL (4.0-11.0) Red Blood Count 1.99 x10^6/uL (4.30-5.70) Hemoglobin 6.4 g/dL (13.0-17.5) Hematocrit 18.6 % (39.0-53.0) Mean Corpuscular Volume 94 fL (79-100) Mean Corpuscular Hemoglobin 32 pg (25-35) Mean Corpuscular Hemoglobin Concent 34 g/dL (31-37) Red Cell Distribution Width 16.3 % (11.5-14.5) Platelet Count 165 x10^3/uL (140-400) Neutrophils (%) (Auto) 72 % (31-73) Lymphocytes (%) (Auto) 12 % (24-48) Monocytes (%) (Auto) 10 % (0-9) Eosinophils (%) (Auto) 6 % (0-3) Basophils (%) (Auto) 1 % (0-3) Neutrophils # (Auto) 5.1 x10^3uL (1.8-7.7) Lymphocytes # (Auto) 0.8 x10^3/uL (1.0-4.8) Monocytes # (Auto) 0.7 x10^3/uL (0.0-1.1) Eosinophils # (Auto) 0.4 x10^3/uL (0.0-0.7) Basophils # (Auto) 0.1 x10^3/uL (0.0-0.2) Sodium Level 141 mmol/L (136-145) Potassium Level 4.6 mmol/L (3.5-5.1) Chloride Level 104 mmol/L (98-107) Carbon Dioxide Level 32 mmol/L (21-32) Anion Gap 5 (6-14) Blood Urea Nitrogen 33 mg/dL (8-26) Creatinine 1.5 mg/dL (0.7-1.3) Estimated GFR (Cockcroft-Gault) 47.3 BUN/Creatinine Ratio 22 (6-20) Glucose Level 275 mg/dL (70-99) Calcium Level 9.1 mg/dL (8.5-10.1) Total Bilirubin 0.4 mg/dL (0.2-1.0) Aspartate Amino Transf (AST/SGOT) 17 U/L (15-37) Alanine Aminotransferase (ALT/SGPT) 27 U/L (16-63) Alkaline Phosphatase 112 U/L (46-116) Total Protein 6.9 g/dL (6.4-8.2) Albumin 2.6 g/dL (3.4-5.0) Albumin/Globulin Ratio 0.6 (1.0-1.7) Glucose (Fingerstick) 229 mg/dL (70-99) Laboratory Tests Test 05/01/17 11:00 05/01/17 16:16 05/01/17 20:48 05/02/17 04:00 Glucose (Fingerstick) 331 mg/dL (70-99) 358 mg/dL (70-99) 409 mg/dL (70-99) White Blood Count 7.1 x10^3/uL (4.0-11.0) Red Blood Count 1.99 x10^6/uL (4.30-5.70) Hemoglobin 6.4 g/dL (13.0-17.5) Hematocrit 18.6 % (39.0-53.0) Mean Corpuscular Volume 94 fL (79-100) Mean Corpuscular Hemoglobin 32 pg (25-35) Mean Corpuscular Hemoglobin Concent 34 g/dL (31-37) Red Cell Distribution Width 16.3 % (11.5-14.5) Platelet Count 165 x10^3/uL (140-400) Neutrophils (%) (Auto) 72 % (31-73) Lymphocytes (%) (Auto) 12 % (24-48) Monocytes (%) (Auto) 10 % (0-9) Eosinophils (%) (Auto) 6 % (0-3) Basophils (%) (Auto) 1 % (0-3) Neutrophils # (Auto) 5.1 x10^3uL (1.8-7.7) Lymphocytes # (Auto) 0.8 x10^3/uL (1.0-4.8) Monocytes # (Auto) 0.7 x10^3/uL (0.0-1.1) Eosinophils # (Auto) 0.4 x10^3/uL (0.0-0.7) Basophils # (Auto) 0.1 x10^3/uL (0.0-0.2) Sodium Level 141 mmol/L (136-145) Potassium Level 4.6 mmol/L (3.5-5.1) Chloride Level 104 mmol/L (98-107) Carbon Dioxide Level 32 mmol/L (21-32) Anion Gap 5 (6-14) Blood Urea Nitrogen 33 mg/dL (8-26) Creatinine 1.5 mg/dL (0.7-1.3) Estimated GFR (Cockcroft-Gault) 47.3 BUN/Creatinine Ratio 22 (6-20) Glucose Level 275 mg/dL (70-99) Calcium Level 9.1 mg/dL (8.5-10.1) Total Bilirubin 0.4 mg/dL (0.2-1.0) Aspartate Amino Transf (AST/SGOT) 17 U/L (15-37) Alanine Aminotransferase (ALT/SGPT) 27 U/L (16-63) Alkaline Phosphatase 112 U/L (46-116) Total Protein 6.9 g/dL (6.4-8.2) Albumin 2.6 g/dL (3.4-5.0) Albumin/Globulin Ratio 0.6 (1.0-1.7) Test 05/02/17 07:04 Glucose (Fingerstick) 229 mg/dL (70-99) Notes A and A lying in bed BLE: wounds unchanged wiggles toes Assessment and Plan OR tomorrow for I and D, VAC discussed BKA with him, not willing to proceed with this at this time EDIN KEARNS II, MD May 02, 2017 07:47
[2017-05-02] MEDS ORDERED: INSULIN DETEMIR 300 UNITS/3 ML INSULN.PEN. SQ SCH (08:00)
[2017-05-02] MEDS: CELECOXIB 200 MG CAPSULE. PO SCH ×2 (08:02→21:27)
[2017-05-02] MEDS: PANTOPRAZOLE 40 MG TABLET.DR. PO SCH (08:02)
[2017-05-02] MEDS: LACTOBACILLUS RHAMNOSUS GG 1 CAPSULE. PO SCH ×2 (08:02→21:27)
[2017-05-02] MEDS: metFORMIN 500 MG TABLET PO SCH ×2 (08:02→17:29)
[2017-05-02] MEDS: DOCUSATE SODIUM 100 MG CAPSULE. PO SCH (08:02)
[2017-05-02] MEDS: CITALOPRAM 20 MG TABLET. PO SCH (08:02)
[2017-05-02] MEDS: CHOLECALCIFEROL (VITAMIN D3) 1,000 UNIT TABLET PO SCH (08:02)
[2017-05-02] MEDS: GABAPENTIN 300 MG CAPSULE. PO SCH ×2 (08:02→21:27)
[2017-05-02] MEDS: TAMSULOSIN 0.4 MG CAP.ER.24H. PO SCH ×2 (08:03→21:29)
[2017-05-02] MEDS: LOSARTAN POTASSIUM 50 MG TABLET. PO SCH (08:03)
[2017-05-02] MEDS: INSULIN ASPART 300 UNITS/3 ML INSULN.PEN SQ SCH ×3 (08:07→17:31)
[2017-05-02] MEDS: ASPIRIN 325 MG TABLET PO SCH (08:08)
[2017-05-02] MEDS: CLOPIDOGREL BISULFATE 75 MG TABLET PO SCH (08:08)
--- NOTE | 2017-05-02 10:05 | PDOC ---
PROGRESS NOTES Chief Complaint Chief Complaint Syncope Cellulitis ASSESSMENT AND PLAN: 1. Syncope: poss vasovagal or related to anemia. no obvious cardiac source. 2. Anemia: chronic, did receive PRBC x2 2 days ago, now lowish again. transfuse PRBC x2 in anticipation of surgery. check OB stool. nl vitamin levels , ferritin and retic c/w inflammatory anemia. no sign of GIB. cont low dose PO iron, folate 3. L LE cellulitis: on zosyn as per ID service 4. L LE fx: external hardware removed 2 weeks ago, sites purulent. ortho on board, planned surgery in AM 5. HTN: well controlled with med adjustement 6. DM2: poorly controlled (chronic). switched to AM levemir, needs furhter increase in levemir 7. CAD: no acute issues. cont 2ary prevention meds 8. Hx CVA 9. Hx severe BRYCE with HD requirement: mild BRYCE at admit, prob vasomotor. monitor with IVF, PO fluids 10. morbid obesity, BMI 46. w/ moderately severe malnutrition, serum albumin 2.8. dietary teaching 11. Dyspnea: not hypoxic. prob obesity driven hypoventilation +/- anemia. trial albuterol PRN History of Present Illness History of Present Illness denies pain. worried about surgery and daughter being readmitted to hospital as well Vitals Vitals Vital Signs Date Time Temp Pulse Resp B/P (MAP) Pulse Ox O2 Delivery O2 Flow Rate FiO2 05/02/17 09:05 97.5 77 18 139/72 97.5 05/02/17 07:45 Room Air 05/02/17 07:36 93 2.0 Physical Exam General: Alert, Oriented X3, Cooperative, No acute distress Heart: Regular rate Lungs: Clear Abdomen: Normal bowel sounds, No tenderness Extremities: No cyanosis, Other (L ankle swollen. post heel wound with jay pus, medial and lateral wounds not well healing, with detritus, ?pus) Skin: No rashes Labs LABS Laboratory Tests Test 05/01/17 11:00 05/01/17 16:16 05/01/17 20:48 05/02/17 04:00 Glucose (Fingerstick) 331 mg/dL (70-99) 358 mg/dL (70-99) 409 mg/dL (70-99) White Blood Count 7.1 x10^3/uL (4.0-11.0) Red Blood Count 1.99 x10^6/uL (4.30-5.70) Hemoglobin 6.4 g/dL (13.0-17.5) Hematocrit 18.6 % (39.0-53.0) Mean Corpuscular Volume 94 fL (79-100) Mean Corpuscular Hemoglobin 32 pg (25-35) Mean Corpuscular Hemoglobin Concent 34 g/dL (31-37) Red Cell Distribution Width 16.3 % (11.5-14.5) Platelet Count 165 x10^3/uL (140-400) Neutrophils (%) (Auto) 72 % (31-73) Lymphocytes (%) (Auto) 12 % (24-48) Monocytes (%) (Auto) 10 % (0-9) Eosinophils (%) (Auto) 6 % (0-3) Basophils (%) (Auto) 1 % (0-3) Neutrophils # (Auto) 5.1 x10^3uL (1.8-7.7) Lymphocytes # (Auto) 0.8 x10^3/uL (1.0-4.8) Monocytes # (Auto) 0.7 x10^3/uL (0.0-1.1) Eosinophils # (Auto) 0.4 x10^3/uL (0.0-0.7) Basophils # (Auto) 0.1 x10^3/uL (0.0-0.2) Sodium Level 141 mmol/L (136-145) Potassium Level 4.6 mmol/L (3.5-5.1) Chloride Level 104 mmol/L (98-107) Carbon Dioxide Level 32 mmol/L (21-32) Anion Gap 5 (6-14) Blood Urea Nitrogen 33 mg/dL (8-26) Creatinine 1.5 mg/dL (0.7-1.3) Estimated GFR (Cockcroft-Gault) 47.3 BUN/Creatinine Ratio 22 (6-20) Glucose Level 275 mg/dL (70-99) Calcium Level 9.1 mg/dL (8.5-10.1) Total Bilirubin 0.4 mg/dL (0.2-1.0) Aspartate Amino Transf (AST/SGOT) 17 U/L (15-37) Alanine Aminotransferase (ALT/SGPT) 27 U/L (16-63) Alkaline Phosphatase 112 U/L (46-116) Total Protein 6.9 g/dL (6.4-8.2) Albumin 2.6 g/dL (3.4-5.0) Albumin/Globulin Ratio 0.6 (1.0-1.7) Test 05/02/17 07:04 Glucose (Fingerstick) 229 mg/dL (70-99) NEVIN LONG MD May 02, 2017 10:05
[2017-05-02] MEDS: ALBUTEROL SULFATE 2.5 MG/3 ML NEBU. NEB PRN ×2 (11:05→22:42)
[2017-05-02] MEDS: INSULIN DETEMIR 300 UNITS/3 ML INSULN.PEN. SQ SCH (12:13)
[2017-05-02 17:15] LABS: HCO3 ABG 21 mmol/L (21-28); PCO2 ABG 24 mmHg (35-46); PO2 ABG 125 mmHg (65-108); SAT O2 ABG 98 % (92-99)
[2017-05-02 17:28] LABS: PH ABG 7.57 (7.35-7.45)
--- NOTE | 2017-05-02 19:38 | RAD ---
AP portable chest x-ray HISTORY: Shortness of breath COMPARISON: Chest x-ray April 29, 2017 FINDINGS: Mild cardiomegaly is stable. Mediastinum is unremarkable. No pneumothorax, pulmonary opacities or pleural effusions. Bones unremarkable. IMPRESSION: No acute process. Electronically signed by: Deng Lee MD (05/02/2017 7:34 PM) [facility]
[2017-05-02] MEDS: ATORVASTATIN CALCIUM 20 MG TABLET PO SCH (21:27)
[2017-05-03] MEDS: PIPERACILLIN/TAZO IV Push 3.375 GM VIAL. IVP SCH ×5 (00:10→20:43)
[2017-05-03 03:00] VITALS: BP 164/89
[2017-05-03] MEDS: ALBUTEROL SULFATE 2.5 MG/3 ML NEBU. NEB PRN (04:19)
[2017-05-03 05:11] LABS: BASO % 0 % (0-3); EOS % 4 % (0-3); HEMATOCRIT 28.4 % (39.0-53.0); HEMOGLOBIN 9.5 g/dL (13.0-17.5); LYMPH # 0.9 x10^3/uL (1.0-4.8); LYMPH % 10 % (24-48); MEAN CORPUSCULAR HEMOGLOBIN 31 pg (25-35); MEAN CORPUSCULAR HGB CONC 34 g/dL (31-37); MEAN CORPUSCULAR VOLUME 92 fL (79-100); MONO % 8 % (0-9); NEUT % 77 % (31-73); PLATELET COUNT 169 x10^3/uL (140-400); RED BLOOD COUNT 3.07 x10^6/uL (4.30-5.70); RED CELL DISTRIBUTION WIDTH 15.8 % (11.5-14.5); WHITE BLOOD COUNT 8.9 x10^3/uL (4.0-11.0)
[2017-05-03 05:37] LABS: ALBUMIN 2.7 g/dL (3.4-5.0); ALBUMIN/GLOBULIN RATIO 0.6 (1.0-1.7); CALCIUM 9.8 mg/dL (8.5-10.1); CREATININE 1.2 mg/dL (0.7-1.3); GFR 61.1; POTASSIUM 4.1 mmol/L (3.5-5.1); TOTAL BILIRUBIN 0.5 mg/dL (0.2-1.0); TOTAL PROTEIN 7.5 g/dL (6.4-8.2)
[2017-05-03 07:00] VITALS: BP 162/88
[2017-05-03] MEDS: INSULIN ASPART 300 UNITS/3 ML INSULN.PEN SQ SCH ×3 (07:30→16:30)
[2017-05-03] MEDS: INSULIN DETEMIR 300 UNITS/3 ML INSULN.PEN. SQ SCH ×2 (08:00→20:55)
[2017-05-03] MEDS: TAMSULOSIN 0.4 MG CAP.ER.24H. PO SCH ×2 (09:00→20:42)
[2017-05-03] MEDS: GABAPENTIN 300 MG CAPSULE. PO SCH ×2 (09:00→20:42)
[2017-05-03] MEDS: LACTOBACILLUS RHAMNOSUS GG 1 CAPSULE. PO SCH ×2 (09:00→20:42)
[2017-05-03] MEDS ORDERED: INSULIN ASPART 300 UNITS/3 ML INSULN.PEN SQ ONE (09:15)
--- NOTE | 2017-05-03 09:50 | PDOC ---
PROGRESS NOTES Chief Complaint Chief Complaint Syncope Cellulitis ASSESSMENT AND PLAN: 1. Syncope: poss vasovagal or related to anemia. no obvious cardiac source. 2. Anemia: chronic, did receive PRBC x2 2 days ago, now lowish again. transfuse PRBC x2 in anticipation of surgery. check OB stool. nl vitamin levels , ferritin and retic c/w inflammatory anemia. no sign of GIB. cont low dose PO iron, folate 3. L LE cellulitis: on zosyn as per ID service 4. L LE fx: external hardware removed 2 weeks ago, sites purulent. ortho on board, planned surgery in AM 5. HTN: well controlled with med adjustement 6. DM2: poorly controlled (chronic). switched to AM levemir, needs furhter increase in levemir 7. CAD: no acute issues. cont 2ary prevention meds 8. Hx CVA 9. Hx severe BRYCE with HD requirement: mild BRYCE at admit, prob vasomotor. monitor with IVF, PO fluids 10. morbid obesity, BMI 46. w/ moderately severe malnutrition, serum albumin 2.8. dietary teaching 11. Dyspnea: not hypoxic. prob obesity driven hypoventilation +/- anemia. trial albuterol PRN History of Present Illness History of Present Illness Out having hyperbaric tx BS 230s this AM, npo for OR later- Ortho has recommneded amputation, he is not ready for that ON hefty levemir doses in AM SOme confusion last night STat ABG and CXR - ok\ NOt confused this am PLAN: SSI high dose, hold the levemir this AM OR later LAbs post op Dw DANK [place] Vitals Vitals Vital Signs Date Time Temp Pulse Resp B/P (MAP) Pulse Ox O2 Delivery O2 Flow Rate FiO2 05/03/17 07:00 97.8 88 18 162/88 (112) 97 Room Air 97.8 05/02/17 16:40 2.0 Physical Exam General: Alert, Oriented X3, Cooperative, No acute distress Heart: Regular rate Lungs: Clear Abdomen: Normal bowel sounds, No tenderness Extremities: No cyanosis, Other (L ankle swollen. post heel wound with jay pus, medial and lateral wounds not well healing, with detritus, ?pus) Skin: No rashes Labs LABS Laboratory Tests Test 05/02/17 10:52 05/02/17 16:40 05/02/17 17:00 05/02/17 20:52 Glucose (Fingerstick) 311 mg/dL (70-99) 286 mg/dL (70-99) 320 mg/dL (70-99) O2 Saturation 98 % (92-99) Arterial Blood pH 7.57 (7.35-7.45) Arterial Blood pCO2 at Patient Temp 24 mmHg (35-46) Arterial Blood pO2 at Patient Temp 125 mmHg (65-108) Arterial Blood HCO3 21 mmol/L (21-28) Arterial Blood Base Excess 0 mmol/L (-3-3) Test 05/03/17 04:00 05/03/17 09:26 White Blood Count 8.9 x10^3/uL (4.0-11.0) Red Blood Count 3.07 x10^6/uL (4.30-5.70) Hemoglobin 9.5 g/dL (13.0-17.5) Hematocrit 28.4 % (39.0-53.0) Mean Corpuscular Volume 92 fL (79-100) Mean Corpuscular Hemoglobin 31 pg (25-35) Mean Corpuscular Hemoglobin Concent 34 g/dL (31-37) Red Cell Distribution Width 15.8 % (11.5-14.5) Platelet Count 169 x10^3/uL (140-400) Neutrophils (%) (Auto) 77 % (31-73) Lymphocytes (%) (Auto) 10 % (24-48) Monocytes (%) (Auto) 8 % (0-9) Eosinophils (%) (Auto) 4 % (0-3) Basophils (%) (Auto) 0 % (0-3) Neutrophils # (Auto) 6.8 x10^3uL (1.8-7.7) Lymphocytes # (Auto) 0.9 x10^3/uL (1.0-4.8) Monocytes # (Auto) 0.7 x10^3/uL (0.0-1.1) Eosinophils # (Auto) 0.4 x10^3/uL (0.0-0.7) Basophils # (Auto) 0.0 x10^3/uL (0.0-0.2) Sodium Level 140 mmol/L (136-145) Potassium Level 4.1 mmol/L (3.5-5.1) Chloride Level 102 mmol/L (98-107) Carbon Dioxide Level 29 mmol/L (21-32) Anion Gap 9 (6-14) Blood Urea Nitrogen 30 mg/dL (8-26) Creatinine 1.2 mg/dL (0.7-1.3) Estimated GFR (Cockcroft-Gault) 61.1 BUN/Creatinine Ratio 25 (6-20) Glucose Level 239 mg/dL (70-99) Calcium Level 9.8 mg/dL (8.5-10.1) Total Bilirubin 0.5 mg/dL (0.2-1.0) Aspartate Amino Transf (AST/SGOT) 17 U/L (15-37) Alanine Aminotransferase (ALT/SGPT) 25 U/L (16-63) Alkaline Phosphatase 109 U/L (46-116) Total Protein 7.5 g/dL (6.4-8.2) Albumin 2.7 g/dL (3.4-5.0) Albumin/Globulin Ratio 0.6 (1.0-1.7) Glucose (Fingerstick) 231 mg/dL (70-99) Review of Systems Review of Systems out having hyperbaric tx Assessment and Plan Assessmemt and Plan Problems Medical Problems: (1) Anemia Status: Acute (2) Syncope Status: Acute Problems: Comment Review of Relevant I have reviewed the following items lauryn (where applicable) has been applied. Labs Laboratory Tests Test 05/01/17 11:00 05/01/17 16:16 05/01/17 20:48 05/02/17 04:00 Glucose (Fingerstick) 331 mg/dL (70-99) 358 mg/dL (70-99) 409 mg/dL (70-99) White Blood Count 7.1 x10^3/uL (4.0-11.0) Red Blood Count 1.99 x10^6/uL (4.30-5.70) Hemoglobin 6.4 g/dL (13.0-17.5) Hematocrit 18.6 % (39.0-53.0) Mean Corpuscular Volume 94 fL (79-100) Mean Corpuscular Hemoglobin 32 pg (25-35) Mean Corpuscular Hemoglobin Concent 34 g/dL (31-37) Red Cell Distribution Width 16.3 % (11.5-14.5) Platelet Count 165 x10^3/uL (140-400) Neutrophils (%) (Auto) 72 % (31-73) Lymphocytes (%) (Auto) 12 % (24-48) Monocytes (%) (Auto) 10 % (0-9) Eosinophils (%) (Auto) 6 % (0-3) Basophils (%) (Auto) 1 % (0-3) Neutrophils # (Auto) 5.1 x10^3uL (1.8-7.7) Lymphocytes # (Auto) 0.8 x10^3/uL (1.0-4.8) Monocytes # (Auto) 0.7 x10^3/uL (0.0-1.1) Eosinophils # (Auto) 0.4 x10^3/uL (0.0-0.7) Basophils # (Auto) 0.1 x10^3/uL (0.0-0.2) Sodium Level 141 mmol/L (136-145) Potassium Level 4.6 mmol/L (3.5-5.1) Chloride Level 104 mmol/L (98-107) Carbon Dioxide Level 32 mmol/L (21-32) Anion Gap 5 (6-14) Blood Urea Nitrogen 33 mg/dL (8-26) Creatinine 1.5 mg/dL (0.7-1.3) Estimated GFR (Cockcroft-Gault) 47.3 BUN/Creatinine Ratio 22 (6-20) Glucose Level 275 mg/dL (70-99) Calcium Level 9.1 mg/dL (8.5-10.1) Total Bilirubin 0.4 mg/dL (0.2-1.0) Aspartate Amino Transf (AST/SGOT) 17 U/L (15-37) Alanine Aminotransferase (ALT/SGPT) 27 U/L (16-63) Alkaline Phosphatase 112 U/L (46-116) Total Protein 6.9 g/dL (6.4-8.2) Albumin 2.6 g/dL (3.4-5.0) Albumin/Globulin Ratio 0.6 (1.0-1.7) Test 05/02/17 07:04 05/02/17 10:52 05/02/17 16:40 05/02/17 17:00 Glucose (Fingerstick) 229 mg/dL (70-99) 311 mg/dL (70-99) 286 mg/dL (70-99) O2 Saturation 98 % (92-99) Arterial Blood pH 7.57 (7.35-7.45) Arterial Blood pCO2 at Patient Temp 24 mmHg (35-46) Arterial Blood pO2 at Patient Temp 125 mmHg (65-108) Arterial Blood HCO3 21 mmol/L (21-28) Arterial Blood Base Excess 0 mmol/L (-3-3) Test 05/02/17 20:52 05/03/17 04:00 05/03/17 09:26 Glucose (Fingerstick) 320 mg/dL (70-99) 231 mg/dL (70-99) White Blood Count 8.9 x10^3/uL (4.0-11.0) Red Blood Count 3.07 x10^6/uL (4.30-5.70) Hemoglobin 9.5 g/dL (13.0-17.5) Hematocrit 28.4 % (39.0-53.0) Mean Corpuscular Volume 92 fL (79-100) Mean Corpuscular Hemoglobin 31 pg (25-35) Mean Corpuscular Hemoglobin Concent 34 g/dL (31-37) Red Cell Distribution Width 15.8 % (11.5-14.5) Platelet Count 169 x10^3/uL (140-400) Neutrophils (%) (Auto) 77 % (31-73) Lymphocytes (%) (Auto) 10 % (24-48) Monocytes (%) (Auto) 8 % (0-9) Eosinophils (%) (Auto) 4 % (0-3) Basophils (%) (Auto) 0 % (0-3) Neutrophils # (Auto) 6.8 x10^3uL (1.8-7.7) Lymphocytes # (Auto) 0.9 x10^3/uL (1.0-4.8) Monocytes # (Auto) 0.7 x10^3/uL (0.0-1.1) Eosinophils # (Auto) 0.4 x10^3/uL (0.0-0.7) Basophils # (Auto) 0.0 x10^3/uL (0.0-0.2) Sodium Level 140 mmol/L (136-145) Potassium Level 4.1 mmol/L (3.5-5.1) Chloride Level 102 mmol/L (98-107) Carbon Dioxide Level 29 mmol/L (21-32) Anion Gap 9 (6-14) Blood Urea Nitrogen 30 mg/dL (8-26) Creatinine 1.2 mg/dL (0.7-1.3) Estimated GFR (Cockcroft-Gault) 61.1 BUN/Creatinine Ratio 25 (6-20) Glucose Level 239 mg/dL (70-99) Calcium Level 9.8 mg/dL (8.5-10.1) Total Bilirubin 0.5 mg/dL (0.2-1.0) Aspartate Amino Transf (AST/SGOT) 17 U/L (15-37) Alanine Aminotransferase (ALT/SGPT) 25 U/L (16-63) Alkaline Phosphatase 109 U/L (46-116) Total Protein 7.5 g/dL (6.4-8.2) Albumin 2.7 g/dL (3.4-5.0) Albumin/Globulin Ratio 0.6 (1.0-1.7) Laboratory Tests Test 05/02/17 10:52 05/02/17 16:40 05/02/17 17:00 05/02/17 20:52 Glucose (Fingerstick) 311 mg/dL (70-99) 286 mg/dL (70-99) 320 mg/dL (70-99) O2 Saturation 98 % (92-99) Arterial Blood pH 7.57 (7.35-7.45) Arterial Blood pCO2 at Patient Temp 24 mmHg (35-46) Arterial Blood pO2 at Patient Temp 125 mmHg (65-108) Arterial Blood HCO3 21 mmol/L (21-28) Arterial Blood Base Excess 0 mmol/L (-3-3) Test 05/03/17 04:00 05/03/17 09:26 White Blood Count 8.9 x10^3/uL (4.0-11.0) Red Blood Count 3.07 x10^6/uL (4.30-5.70) Hemoglobin 9.5 g/dL (13.0-17.5) Hematocrit 28.4 % (39.0-53.0) Mean Corpuscular Volume 92 fL (79-100) Mean Corpuscular Hemoglobin 31 pg (25-35) Mean Corpuscular Hemoglobin Concent 34 g/dL (31-37) Red Cell Distribution Width 15.8 % (11.5-14.5) Platelet Count 169 x10^3/uL (140-400) Neutrophils (%) (Auto) 77 % (31-73) Lymphocytes (%) (Auto) 10 % (24-48) Monocytes (%) (Auto) 8 % (0-9) Eosinophils (%) (Auto) 4 % (0-3) Basophils (%) (Auto) 0 % (0-3) Neutrophils # (Auto) 6.8 x10^3uL (1.8-7.7) Lymphocytes # (Auto) 0.9 x10^3/uL (1.0-4.8) Monocytes # (Auto) 0.7 x10^3/uL (0.0-1.1) Eosinophils # (Auto) 0.4 x10^3/uL (0.0-0.7) Basophils # (Auto) 0.0 x10^3/uL (0.0-0.2) Sodium Level 140 mmol/L (136-145) Potassium Level 4.1 mmol/L (3.5-5.1) Chloride Level 102 mmol/L (98-107) Carbon Dioxide Level 29 mmol/L (21-32) Anion Gap 9 (6-14) Blood Urea Nitrogen 30 mg/dL (8-26) Creatinine 1.2 mg/dL (0.7-1.3) Estimated GFR (Cockcroft-Gault) 61.1 BUN/Creatinine Ratio 25 (6-20) Glucose Level 239 mg/dL (70-99) Calcium Level 9.8 mg/dL (8.5-10.1) Total Bilirubin 0.5 mg/dL (0.2-1.0) Aspartate Amino Transf (AST/SGOT) 17 U/L (15-37) Alanine Aminotransferase (ALT/SGPT) 25 U/L (16-63) Alkaline Phosphatase 109 U/L (46-116) Total Protein 7.5 g/dL (6.4-8.2) Albumin 2.7 g/dL (3.4-5.0) Albumin/Globulin Ratio 0.6 (1.0-1.7) Glucose (Fingerstick) 231 mg/dL (70-99) Medications Current Medications Sodium Chloride 1,000 ml @ 999 mls/hr Q1H1M IV Last administered on 00:02; Start 04/29/17 at 15:28; Stop 04/30/17 at 02:42; Status DC Aspirin (Omkar Aspirin) 325 mg DAILY PO Last administered on 05/01/17 08:32; Start 04/30/17 at 09:00; Stop 05/03/17 at 08:39; Status DC Atorvastatin Calcium (Lipitor) 20 mg QHS PO Last administered on 05/02/17 21: 27; Start 04/29/17 at 21:00 Celecoxib (CeleBREX) 200 mg BID PO Last administered on 05/02/17 21:27; Start 04/29/17 at 21:00; Stop 05/03/17 at 08:39; Status DC Vitamin D (Vitamin D3) 1,000 unit DAILY PO Last administered on 05/02/17 08: 02; Start 04/30/17 at 09:00 Clopidogrel Bisulfate (Plavix) 75 mg DAILY PO Last administered on 05/01/17 08:33; Start 04/30/17 at 09:00; Stop 05/02/17 at 12:02; Status DC Docusate Sodium (Colace) 100 mg DAILY PO Last administered on 05/02/17 08:02 ; Start 04/30/17 at 09:00 Fentanyl (Duragesic 75mcg/ Hr Patch) 1 patch Q3DAYS TD Last administered on 09:33; Start 04/30/17 at 09:00 Acetaminophen/ Hydrocodone Bitart (Lortab 7.5/325) 1 tab PRN Q6HRS PRN PO MODERATE PAIN Last administered on 04/29/17 21:25; Start 04/29/17 at 18:00; Stop 04/29/17 at 22:47; Status DC Losartan Potassium (Cozaar) 50 mg DAILY PO ; Start 04/30/17 at 09:00; Stop at 09:00; Status DC Metformin HCl (Glucophage) 500 mg BIDWMEALS PO Last administered on 05/02/17 17:29; Start 04/30/17 at 08:00 Pantoprazole Sodium (Protonix) 40 mg DAILYAC PO Last administered on 08:02; Start 04/30/17 at 07:30 Piperacillin/ Tazobactam/ Dextrose (Zosyn 3.375gm Premix) 3.375 gm Q6HRS IV ; Start 04/30/17 at 00:00; Status Cancel Tamsulosin HCl (Flomax) 0.4 mg BID PO Last administered on 05/02/17 21:29; Start 04/29/17 at 21:00 Tamsulosin HCl (Flomax) 0.4 mg HS PO ; Start 04/29/17 at 21:00; Status UNV Citalopram Hydrobromide (CeleXA) 40 mg DAILY PO Last administered on 08:02; Start 04/30/17 at 09:00 Gabapentin (Neurontin) 300 mg BID PO Last administered on 05/02/17 21:27; Start 04/29/17 at 21:00 Insulin Aspart (NovoLOG) 15 units TIDAC SQ Last administered on 05/02/17 17: 31; Start 04/30/17 at 07:30 Insulin Detemir (Levemir) 22 units QHS SQ Last administered on 04/29/17 21:26 ; Start 04/29/17 at 21:00; Stop 04/30/17 at 08:32; Status DC Labetalol HCl (Normodyne) 20 mg Q2HR PRN IVP hypertension; Start 04/29/17 at 18:00 Piperacillin Sod/ Tazobactam Sod 4.5 gm/Dextrose 100 ml @ 200 mls/hr 1X ONCE IV ; Start 04/29/17 at 18:15; Stop 04/29/17 at 18:44; Status UNV Piperacillin Sod/ Tazobactam Sod (Zosyn) 4.5 gm 1X ONCE IVP Last administered on 04/29/17 18:57; Start 04/29/17 at 18:30; Stop 04/29/17 at 18:31; Status DC Piperacillin Sod/ Tazobactam Sod (Zosyn) 3.375 gm Q6HRS IVP Last administered on 05/03/17 06:08; Start 04/30/17 at 00:00 Hydromorphone HCl (Dilaudid) 1 mg 1X ONCE IV Last administered on 04/29/17 22:55; Start 04/29/17 at 22:45; Stop 04/29/17 at 22:46; Status DC Acetaminophen/ Hydrocodone Bitart (Lortab 7.5/325) 2 tab PRN Q6HRS PRN PO MODERATE PAIN Last administered on 05/01/17 20:30; Start 04/29/17 at 23:00 Hydromorphone HCl (Dilaudid) 1 mg PRN Q4HRS PRN IVP PAIN; Start 04/29/17 at 23 :00; Stop 04/30/17 at 08:32; Status DC Insulin Detemir (Levemir) 25 units DAILY08 SQ Last administered on 05/01/17 08:39; Start 04/30/17 at 09:00; Stop 05/01/17 at 17:01; Status DC Losartan Potassium (Cozaar) 100 mg DAILY PO Last administered on 05/02/17 08: 03; Start 04/30/17 at 09:00 Lactobacillus Rhamnosus (Culturelle) 1 cap BID PO Last administered on 21:27; Start 05/01/17 at 21:00 Insulin Detemir (Levemir) 35 units DAILY08 SQ Last administered on 05/02/17 08:08; Start 05/02/17 at 08:00; Stop 05/02/17 at 11:55; Status DC Insulin Aspart (NovoLOG) 18 units 1X ONCE SQ Last administered on 05/01/17 22:46; Start 05/01/17 at 22:45; Stop 05/01/17 at 22:46; Status DC Albuterol Sulfate (Ventolin Neb Soln) 2.5 mg PRN Q4HRS PRN NEB SHORTNESS OF BREATH Last administered on 05/03/17 04:19; Start 05/02/17 at 10:00 Insulin Detemir (Levemir) 45 units DAILY08 SQ Last administered on 05/02/17 12:13; Start 05/02/17 at 13:00 Acetaminophen/ Hydrocodone Bitart (Lortab 5/325) 1 tab PRN Q4HRS PRN PO PAIN; Start 05/03/17 at 08:45 Insulin Aspart (NovoLOG) 3 units 1X ONCE SQ Last administered on 05/03/17 09 :09; Start 05/03/17 at 09:15; Stop 05/03/17 at 09:16; Status DC Active Scripts Active Hydrocodone-Apap 7.5-325 (Hydrocodone Bit/Acetaminophen) 1 Each Tablet 1 Tab PO PRN Q6HRS PRN FENTANYL 50mcg/hr (Fentanyl) 1 Each Patch.td72 1 Patch TP Q3DAYS Reported Tamsulosin Hcl 0.4 Mg Cap.er.24h 1 Cap PO DAILY Zosyn 3.375 Gm Galaxy Bag (Evygzopqhrtq-Bdqn-Egowxzjp,Iso) 3.375 Gm/50 Ml Froz.piggy 3.375 Gm IV Q6HRS Novolog (Insulin Aspart) 100 Unit/1 Ml Cartridge 15 Unit SQ TIDAC Pantoprazole Sodium 40 Mg Tablet.dr 40 Mg PO DAILY Levemir (Insulin Detemir) 100 Unit/1 Ml Vial 22 Unit SQ HS FENTANYL 75mcg/hr (Fentanyl) 1 Each Patch.td72 1 Patch TP Q3DAYS Colace (Docusate Sodium) 100 Mg Capsule 1 Cap PO DAILY Aspirin 325 Mg Tablet 1 Tab PO DAILY Vitamin D3 (Cholecalciferol (Vitamin D3)) 1,000 Unit Tablet 1 Tab PO DAILY Losartan Potassium 50 Mg Tablet 50 Mg PO DAILY Gabapentin 300 Mg Capsule 300 Mg PO BID Celebrex (Celecoxib) 200 Mg Capsule 200 Mg PO BID 30 Days Citalopram Hbr (Citalopram Hydrobromide) 40 Mg Tablet 40 Mg PO DAILY Lipitor (Atorvastatin Calcium) 20 Mg Tablet 20 Mg PO QHS Flomax (Tamsulosin Hcl) 0.4 Mg Cap.er.24h 0.4 Mg PO HS Metformin Hcl 500 Mg Tablet 500 Mg PO BID Plavix (Clopidogrel Bisulfate) 75 Mg Tablet 75 Mg PO DAILY Vitals/I & O Vital Sign - Last 24 Hours 05/02/17 05/02/17 05/02/17 05/02/17 10:05 10:35 11:05 11:09 Temp 97.7 97.7 97.7 97.7 97.7 97.7 Pulse 79 79 76 Resp 18 18 20 B/P (MAP) 140/78 140/78 (98) 145/74 Pulse Ox 97 97 O2 Delivery Nasal Cannula Room Air O2 Flow Rate 2.0 05/02/17 05/02/17 05/02/17 05/02/17 12:05 12:45 14:44 15:30 Temp 97.5 97.7 97.7 97.7 97.5 97.7 97.7 97.7 Pulse 79 82 80 78 Resp 22 20 20 20 B/P (MAP) 153/79 149/80 154/82 (106) 153/85 Pulse Ox 96 O2 Delivery Room Air 05/02/17 05/02/17 05/02/17 05/02/17 15:45 16:40 16:45 16:55 Temp 97.6 97.5 97.5 97.6 97.5 97.5 Pulse 88 80 80 85 Resp 22 20 20 B/P (MAP) 166/93 166/92 (116) 166/92 191/97 (128) Pulse Ox 94 O2 Delivery Nasal Cannula O2 Flow Rate 2.0 05/02/17 05/02/17 05/02/17 05/02/17 17:05 17:13 18:05 19:05 Temp 97.7 97.7 97.7 97.7 97.7 97.7 97.7 97.7 Pulse 78 78 80 82 Resp 20 18 20 B/P (MAP) 156/78 156/78 (104) 156/77 157/76 Pulse Ox 96 O2 Delivery Room Air 05/02/17 05/02/17 05/02/17 05/02/17 19:15 19:25 22:44 23:00 Temp 97.7 97.7 97.7 97.7 Pulse 82 86 Resp 20 B/P (MAP) 157/76 (103) 149/76 (100) Pulse Ox 96 98 95 O2 Delivery Room Air Room Air Room Air Room Air 05/03/17 05/03/17 05/03/17 03:00 04:21 07:00 Temp 96.1 97.8 96.1 97.8 Pulse 79 88 Resp 18 B/P (MAP) 164/89 (114) 162/88 (112) Pulse Ox 98 98 97 O2 Delivery Nasal Cannula Room Air Room Air Intake and Output 05/02/17 05/02/17 05/03/17 14:59 22:59 06:59 Intake Total 750 ml 710 ml 400 ml Output Total 400 ml 1075 ml 1400 ml Balance 350 ml -365 ml -1000 ml MARINA GREGG MD May 03, 2017 09:50
--- NOTE | 2017-05-03 13:34 | PDOC ---
HBO-PROGRESS NOTE CHIEF COMPLAIN/HPI: TYPE OF WOUND: Ulcer (patient presents for hyperbaric therapy #14 anticipated initial 20 treatment regimen under protocol for diabetic Arias 3 ulceration of the left hindfoot with evidence of muscle necrosis. He is tolerating his treatments without complication.) Location of Modifier: Left WOUND LOCATION: Foot ASSOCIATED SIGNS/SYMPTOMS: ASSOCIATED SIGNS/SYMTPTOMS: Increased wound drainage, Edema/swelling PAST MEDICAL HISTORY: PAST MEDICAL HISTORY: Diabetes PRE-HBO SYMPTOMS: PRE-HBO SYMPTOMS: None LEFT EAR TEEDS: 0 RIGHT EAR TEEDS: 0 PROCEDURE: PROCEDURE: Diabetic Ulcer Lower Ext EPIFANIO: 2.0 PreTreatment Checklist Complet: Yes LS: 09:28 AP: 09:38 ABT Minutes: 90 LP: 11:08 : 11:18 100% 02 Pressure Minutes: 110 Compression Tolerated: Yes Decompression Tolerated: Yes 110 POST HBO SIGNS/SYMPTOMS: POST-HBO SIGNS/SYMPTOMS: None STATEMENT OF ATTENDANCE: Statement: I have provided supervision throughout the entire treatment including compression and decompression. ASSESSMENT: Hyperbaric Medical: Diabetic Arias 3 ulceration of left heel with evidence of muscle necrosis. Vital Signs: Vital Signs Date Time Temp Pulse Resp B/P (MAP) Pulse Ox O2 Delivery O2 Flow Rate FiO2 05/02/17 07:36 98.0 83 20 135/84 (101) 93 Nasal Cannula 2.0 98.0 Vital Signs Date Time Temp Pulse Resp B/P (MAP) Pulse Ox O2 Delivery O2 Flow Rate FiO2 05/03/17 12:41 98.1 76 15 157/83 95 Room Air 98.1 05/02/17 16:40 2.0 BG#1: 231 Time: 09:00 BG#2: 231 Time: 11:27 PLAN: Protocol: Diabetic ulcer of the lower extremity Total Tx Provided: 14 Total Tx Ordered: An initial 20 treatment regimen MANAGMENT OF COMPLICATIONS: Off-loading ONGOING PLAN: Continue protocol PROBLEMS: Problems: (1) Type 2 diabetes mellitus with foot ulcer (2) Non-pressure chronic ulcer of left heel and midfoot with necrosis of muscle AYLIN CHRISTENSEN DO May 03, 2017 13:34
[2017-05-03] MEDS ORDERED: fentaNYL PF VIAL 100 MCG/2 ML VIAL ONE (14:55)
[2017-05-03] MEDS ORDERED: MIDAZOLAM HCL/PF 2 MG/2 ML VIAL. ONE (14:55)
--- NOTE | 2017-05-03 15:12 | PDOC ---
BRIEF OPERATIVE NOTE Date: May 03, 2017 Pre-Op Diagnosis R foot wound; L ankle infected hindfoot nail, chronic wounds Post-Op Diagnosis same Procedure Performed I and Ds, wound VAC to LLE Surgeon Mariel Extractive Metallurgist Christina Anesthesiologist [place] Anesthesia Type: General Blood Loss 20mL IV Fluid per Anes Urine Output NA Specimens Obtained tissue and Cxs Findings purulent material L ankle Complications none Operative Note see dictation EDIN KEARNS II, MD May 03, 2017 15:12
[2017-05-03] MEDS ORDERED: PROPOFOL 20 ML IV ONE (15:18)
[2017-05-03] MEDS ORDERED: FAMOTIDINE 20 MG/2 ML VIAL ONE (15:18)
[2017-05-03] MEDS ORDERED: LIDOCAINE 2% PF Vial for OR 5 ML VIAL. ONE (15:18)
[2017-05-03] MEDS ORDERED: DEXAMETHASONE SOD PHOS 20 MG/5 ML VIAL. ONE (15:18)
[2017-05-03] MEDS ORDERED: ONDANSETRON PF 4 MG/2 ML VIAL. ONE (15:18)
[2017-05-03] MEDS ORDERED: PHENYLEPHRINE in 0.9% NACL PF 1 MG/10 ML DISP.SYRIN. IV ONE (15:41)
[2017-05-03] MEDS ORDERED: SEVOFLURANE 31 TO 60 MINUTES. IH ONE (16:02)
--- NOTE | 2017-05-03 16:24 | OP ---
DATE OF SURGERY: 05/03/2017 SURGEON: Wiley Kearns MD [facility] PROVIDER: None. PREOPERATIVE DIAGNOSES: 1. 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 2. Partial thickness wound over right heel. POSTOPERATIVE DIAGNOSES: 1. 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 2. Partial thickness wound over right heel. PROCEDURES PERFORMED: 1. Irrigation and debridement, excisional, down to bone at left ankle. 2. Irrigation and debridement of skin and subcutaneous tissue, excisional, right heel wound. 3. Application of wound VAC to wounds, totaling about 10 cm2. FINDINGS: 1. Regarding the right heel wound, it was partial thickness, it was about 6 x 4 cm and shallow. 2. At his left ankle he had purulent material that I was able to express from the medial and posterior wounds. He had a small amount of purulent material over the anterior tibial screw holes as well. COMPLICATIONS: None. BLOOD LOSS: 20 mL. ANESTHESIA: General. REASON FOR PROCEDURE: The patient is a 62-year-old gentleman who has undergone multiple reconstructive surgeries after a left ankle fracture dislocation. He presented with increasing pain and drainage, but mainly was admitted for syncope. I have seen him in consultation. Please see my full dictated consult note. We had talked about different options including temporizing this and irrigation and debridement and wound VAC versus a below-knee amputation. He has not really ever been willing to consider a below-knee amputation. I did discuss this case with my colleague who is quite familiar with this gentleman as well. We both thought the above surgery was reasonable to proceed with and the patient elected to proceed. DESCRIPTION OF PROCEDURE: The patient was greeted in the preoperative holding area by myself. Correct extremities were marked and verified. He was taken to the operative suite and antibiotics were started once he was in the OR. Once he was in the OR, he was transferred gently supine to the OR table and secured to the bed with all pressure points padded after successful induction with general anesthetic with an LMA. We then proceeded to prep and drape bilateral lower extremities with Betadine. We conducted a standard preoperative timeout. I began the procedure by debriding the necrotic appearing tissue from the base of the right heel wound followed by some of the surrounding callus. I encountered some good granulation tissue and bleeding. I then irrigated this out with about 500 mL of sterile saline. I then directed my attention to debriding the medial and lateral as well as posterior wounds and his pin sites with a combination of curette and rongeur. After debriding these wounds I then irrigated them all out and used a total of another 2500 mL of sterile saline. After this, his leg and ankle were cleansed and dried and the wound VAC sponges were cut to fit the wounds and sealed in place with the wound VAC adhesive. I then created a tunnel from lateral to posterior to medial and then to the dorsum of his foot for the wound VAC suction apparatus and attached it to the cannister. This revealed it had a good seal. We then cleansed and dried his legs again and I applied gauze to his wounds at his right heel and anterior left tibia. We then placed soft roll and a very loose Fabián wrap. He tolerated this well. At the conclusion of the surgery, the patient was awakened from anesthesia, transferred gently supine to the hospital bed and taken to the PACU in stable and extubated condition. Postoperative plan is nonweightbearing left lower extremity. We will follow along with cultures. Infectious Disease is seeing him. We will readmit him back to the care of the hospitalist. WILEY KEARNS MD DR: JENSEN/annika JOB#: [id number] / [id number] TOMAS
[2017-05-03] MEDS ORDERED: INSULIN ASPART 100 UNIT/ML 10ML VIAL. SQ PRN (16:45)
[2017-05-03] MEDS: metFORMIN 500 MG TABLET PO SCH ×2 (17:00→18:04)
[2017-05-03] MEDS: PANTOPRAZOLE 40 MG TABLET.DR. PO SCH (18:03)
[2017-05-03] MEDS: DOCUSATE SODIUM 100 MG CAPSULE. PO SCH (18:03)
[2017-05-03] MEDS: CHOLECALCIFEROL (VITAMIN D3) 1,000 UNIT TABLET PO SCH (18:04)
[2017-05-03] MEDS: LOSARTAN POTASSIUM 50 MG TABLET. PO SCH (18:04)
[2017-05-03] MEDS: CITALOPRAM 20 MG TABLET. PO SCH (18:04)
[2017-05-03] MEDS: fentaNYL 75MCG/HR PATCH 1 PATCH PATCH.TD72 TD SCH (18:06)
[2017-05-03] MEDS ORDERED: LIDOCAINE 1% PF 2 ML VIAL. ID PRN (18:30)
[2017-05-03] MEDS ORDERED: MIDAZOLAM HCL/PF 2 MG/2 ML VIAL. IV PRN (18:30)
[2017-05-03 19:00] VITALS: BP 155/82
[2017-05-03] MEDS: IV NORMAL SALINE 1000ML BAG 1,000 ML IV SCH (20:42)
[2017-05-03] MEDS: ATORVASTATIN CALCIUM 20 MG TABLET PO SCH (20:42)
[2017-05-03 23:09] VITALS: BP 159/90
[2017-05-04] MEDS: IV NORMAL SALINE 1000ML BAG 1,000 ML IV SCH (02:16)
[2017-05-04 03:00] VITALS: BP 129/69
[2017-05-04 05:14] LABS: BASO % 0 % (0-3); EOS % 1 % (0-3); HEMATOCRIT 27.4 % (39.0-53.0); HEMOGLOBIN 9.3 g/dL (13.0-17.5); LYMPH # 0.5 x10^3/uL (1.0-4.8); LYMPH % 6 % (24-48); MEAN CORPUSCULAR HEMOGLOBIN 32 pg (25-35); MEAN CORPUSCULAR HGB CONC 34 g/dL (31-37); MEAN CORPUSCULAR VOLUME 94 fL (79-100); MONO % 8 % (0-9); NEUT % 85 % (31-73); PLATELET COUNT 144 x10^3/uL (140-400); RED BLOOD COUNT 2.93 x10^6/uL (4.30-5.70); RED CELL DISTRIBUTION WIDTH 16.2 % (11.5-14.5)
[2017-05-04 05:49] LABS: ALBUMIN 2.6 g/dL (3.4-5.0); ALBUMIN/GLOBULIN RATIO 0.6 (1.0-1.7); CALCIUM 9.6 mg/dL (8.5-10.1); CREATININE 1.2 mg/dL (0.7-1.3); GFR 61.1; POTASSIUM 4.5 mmol/L (3.5-5.1); TOTAL BILIRUBIN 0.6 mg/dL (0.2-1.0); TOTAL PROTEIN 7.2 g/dL (6.4-8.2)
[2017-05-04] MEDS: PIPERACILLIN/TAZO IV Push 3.375 GM VIAL. IVP SCH ×3 (05:50→17:48)
[2017-05-04 07:00] VITALS: BP 145/78
[2017-05-04] MEDS: TAMSULOSIN 0.4 MG CAP.ER.24H. PO SCH ×2 (08:29→20:59)
[2017-05-04] MEDS: CHOLECALCIFEROL (VITAMIN D3) 1,000 UNIT TABLET PO SCH (08:29)
[2017-05-04] MEDS: CITALOPRAM 20 MG TABLET. PO SCH (08:29)
[2017-05-04] MEDS: DOCUSATE SODIUM 100 MG CAPSULE. PO SCH (08:30)
[2017-05-04] MEDS: GABAPENTIN 300 MG CAPSULE. PO SCH ×2 (08:30→20:59)
[2017-05-04] MEDS: LOSARTAN POTASSIUM 50 MG TABLET. PO SCH (08:30)
[2017-05-04] MEDS: PANTOPRAZOLE 40 MG TABLET.DR. PO SCH (08:30)
[2017-05-04] MEDS: metFORMIN 500 MG TABLET PO SCH ×2 (08:30→17:48)
[2017-05-04] MEDS: INSULIN DETEMIR 300 UNITS/3 ML INSULN.PEN. SQ SCH ×2 (08:34→21:04)
[2017-05-04] MEDS: INSULIN ASPART 300 UNITS/3 ML INSULN.PEN SQ SCH ×3 (08:34→17:58)
[2017-05-04] MEDS: LACTOBACILLUS RHAMNOSUS GG 1 CAPSULE. PO SCH ×2 (09:00→20:59)
--- NOTE | 2017-05-04 09:34 | PDOC ---
ORTHO PROGRESS NOTES Subjective Bunny tells me that the dressings and wound VAC must have gotten torn off while he slept last night. He tells me his pain is tolerable. He denies any other complaints or concerns Vitals Vital Signs Date Time Temp Pulse Resp B/P (MAP) Pulse Ox O2 Delivery O2 Flow Rate FiO2 05/04/17 08:30 74 145/78 05/04/17 07:00 97.7 20 93 Nasal Cannula 2.0 97.7 Labs Laboratory Tests Test 05/02/17 10:52 05/02/17 16:40 05/02/17 17:00 05/02/17 20:52 Glucose (Fingerstick) 311 mg/dL (70-99) 286 mg/dL (70-99) 320 mg/dL (70-99) O2 Saturation 98 % (92-99) Arterial Blood pH 7.57 (7.35-7.45) Arterial Blood pCO2 at Patient Temp 24 mmHg (35-46) Arterial Blood pO2 at Patient Temp 125 mmHg (65-108) Arterial Blood HCO3 21 mmol/L (21-28) Arterial Blood Base Excess 0 mmol/L (-3-3) Test 05/03/17 04:00 05/03/17 09:26 05/03/17 13:51 05/03/17 16:36 White Blood Count 8.9 x10^3/uL (4.0-11.0) Red Blood Count 3.07 x10^6/uL (4.30-5.70) Hemoglobin 9.5 g/dL (13.0-17.5) Hematocrit 28.4 % (39.0-53.0) Mean Corpuscular Volume 92 fL (79-100) Mean Corpuscular Hemoglobin 31 pg (25-35) Mean Corpuscular Hemoglobin Concent 34 g/dL (31-37) Red Cell Distribution Width 15.8 % (11.5-14.5) Platelet Count 169 x10^3/uL (140-400) Neutrophils (%) (Auto) 77 % (31-73) Lymphocytes (%) (Auto) 10 % (24-48) Monocytes (%) (Auto) 8 % (0-9) Eosinophils (%) (Auto) 4 % (0-3) Basophils (%) (Auto) 0 % (0-3) Neutrophils # (Auto) 6.8 x10^3uL (1.8-7.7) Lymphocytes # (Auto) 0.9 x10^3/uL (1.0-4.8) Monocytes # (Auto) 0.7 x10^3/uL (0.0-1.1) Eosinophils # (Auto) 0.4 x10^3/uL (0.0-0.7) Basophils # (Auto) 0.0 x10^3/uL (0.0-0.2) Sodium Level 140 mmol/L (136-145) Potassium Level 4.1 mmol/L (3.5-5.1) Chloride Level 102 mmol/L (98-107) Carbon Dioxide Level 29 mmol/L (21-32) Anion Gap 9 (6-14) Blood Urea Nitrogen 30 mg/dL (8-26) Creatinine 1.2 mg/dL (0.7-1.3) Estimated GFR (Cockcroft-Gault) 61.1 BUN/Creatinine Ratio 25 (6-20) Glucose Level 239 mg/dL (70-99) Calcium Level 9.8 mg/dL (8.5-10.1) Total Bilirubin 0.5 mg/dL (0.2-1.0) Aspartate Amino Transf (AST/SGOT) 17 U/L (15-37) Alanine Aminotransferase (ALT/SGPT) 25 U/L (16-63) Alkaline Phosphatase 109 U/L (46-116) Total Protein 7.5 g/dL (6.4-8.2) Albumin 2.7 g/dL (3.4-5.0) Albumin/Globulin Ratio 0.6 (1.0-1.7) Glucose (Fingerstick) 231 mg/dL (70-99) 213 mg/dL (70-99) 204 mg/dL (70-99) Test 05/03/17 20:32 05/04/17 04:05 05/04/17 04:50 05/04/17 08:09 Glucose (Fingerstick) 365 mg/dL (70-99) 338 mg/dL (70-99) Sodium Level 141 mmol/L (136-145) Potassium Level 4.5 mmol/L (3.5-5.1) Chloride Level 104 mmol/L (98-107) Carbon Dioxide Level 31 mmol/L (21-32) Anion Gap 6 (6-14) Blood Urea Nitrogen 27 mg/dL (8-26) Creatinine 1.2 mg/dL (0.7-1.3) Estimated GFR (Cockcroft-Gault) 61.1 BUN/Creatinine Ratio 23 (6-20) Glucose Level 409 mg/dL (70-99) Calcium Level 9.6 mg/dL (8.5-10.1) Total Bilirubin 0.6 mg/dL (0.2-1.0) Aspartate Amino Transf (AST/SGOT) 13 U/L (15-37) Alanine Aminotransferase (ALT/SGPT) 22 U/L (16-63) Alkaline Phosphatase 105 U/L (46-116) Total Protein 7.2 g/dL (6.4-8.2) Albumin 2.6 g/dL (3.4-5.0) Albumin/Globulin Ratio 0.6 (1.0-1.7) White Blood Count 9.0 x10^3/uL (4.0-11.0) Red Blood Count 2.93 x10^6/uL (4.30-5.70) Hemoglobin 9.3 g/dL (13.0-17.5) Hematocrit 27.4 % (39.0-53.0) Mean Corpuscular Volume 94 fL (79-100) Mean Corpuscular Hemoglobin 32 pg (25-35) Mean Corpuscular Hemoglobin Concent 34 g/dL (31-37) Red Cell Distribution Width 16.2 % (11.5-14.5) Platelet Count 144 x10^3/uL (140-400) Neutrophils (%) (Auto) 85 % (31-73) Lymphocytes (%) (Auto) 6 % (24-48) Monocytes (%) (Auto) 8 % (0-9) Eosinophils (%) (Auto) 1 % (0-3) Basophils (%) (Auto) 0 % (0-3) Neutrophils # (Auto) 7.6 x10^3uL (1.8-7.7) Lymphocytes # (Auto) 0.5 x10^3/uL (1.0-4.8) Monocytes # (Auto) 0.7 x10^3/uL (0.0-1.1) Eosinophils # (Auto) 0.1 x10^3/uL (0.0-0.7) Basophils # (Auto) 0.0 x10^3/uL (0.0-0.2) Laboratory Tests Test 05/03/17 13:51 05/03/17 16:36 05/03/17 20:32 05/04/17 04:05 Glucose (Fingerstick) 213 mg/dL (70-99) 204 mg/dL (70-99) 365 mg/dL (70-99) Sodium Level 141 mmol/L (136-145) Potassium Level 4.5 mmol/L (3.5-5.1) Chloride Level 104 mmol/L (98-107) Carbon Dioxide Level 31 mmol/L (21-32) Anion Gap 6 (6-14) Blood Urea Nitrogen 27 mg/dL (8-26) Creatinine 1.2 mg/dL (0.7-1.3) Estimated GFR (Cockcroft-Gault) 61.1 BUN/Creatinine Ratio 23 (6-20) Glucose Level 409 mg/dL (70-99) Calcium Level 9.6 mg/dL (8.5-10.1) Total Bilirubin 0.6 mg/dL (0.2-1.0) Aspartate Amino Transf (AST/SGOT) 13 U/L (15-37) Alanine Aminotransferase (ALT/SGPT) 22 U/L (16-63) Alkaline Phosphatase 105 U/L (46-116) Total Protein 7.2 g/dL (6.4-8.2) Albumin 2.6 g/dL (3.4-5.0) Albumin/Globulin Ratio 0.6 (1.0-1.7) Test 05/04/17 04:50 05/04/17 08:09 White Blood Count 9.0 x10^3/uL (4.0-11.0) Red Blood Count 2.93 x10^6/uL (4.30-5.70) Hemoglobin 9.3 g/dL (13.0-17.5) Hematocrit 27.4 % (39.0-53.0) Mean Corpuscular Volume 94 fL (79-100) Mean Corpuscular Hemoglobin 32 pg (25-35) Mean Corpuscular Hemoglobin Concent 34 g/dL (31-37) Red Cell Distribution Width 16.2 % (11.5-14.5) Platelet Count 144 x10^3/uL (140-400) Neutrophils (%) (Auto) 85 % (31-73) Lymphocytes (%) (Auto) 6 % (24-48) Monocytes (%) (Auto) 8 % (0-9) Eosinophils (%) (Auto) 1 % (0-3) Basophils (%) (Auto) 0 % (0-3) Neutrophils # (Auto) 7.6 x10^3uL (1.8-7.7) Lymphocytes # (Auto) 0.5 x10^3/uL (1.0-4.8) Monocytes # (Auto) 0.7 x10^3/uL (0.0-1.1) Eosinophils # (Auto) 0.1 x10^3/uL (0.0-0.7) Basophils # (Auto) 0.0 x10^3/uL (0.0-0.2) Glucose (Fingerstick) 338 mg/dL (70-99) Notes His dressings and wound VAC are very disheveled. The overall appearance of his left foot and ankle and the right heel wound are unchanged. Assessment and Plan We will ask wound care to come by to assist with the wound VAC. From my standpoint disposition per primary. His family is talked about getting another opinion regarding his further care. I have spoken with Dr. Galvin a couple of times regarding Mr. Kyle. We think that this is really the only good temporizing solution. We did both think that consideration of a below-knee amputation was appropriate as well. EDIN KEARNS II, MD May 04, 2017 09:34
--- NOTE | 2017-05-04 12:11 | PDOC ---
PROGRESS NOTES Chief Complaint Chief Complaint Syncope Cellulitis ASSESSMENT AND PLAN: 1. Syncope: poss vasovagal or related to anemia. no obvious cardiac source. 2. Anemia: chronic, did receive PRBC x2 2 days ago, now lowish again. transfuse PRBC x2 in anticipation of surgery. check OB stool. nl vitamin levels , ferritin and retic c/w inflammatory anemia. no sign of GIB. cont low dose PO iron, folate 3. L LE cellulitis: on zosyn as per ID service 4. L LE fx: external hardware removed 2 weeks ago, sites purulent. ortho on board, planned surgery in AM 5. HTN: well controlled with med adjustement 6. DM2: poorly controlled (chronic). switched to AM levemir, needs furhter increase in levemir 7. CAD: no acute issues. cont 2ary prevention meds 8. Hx CVA 9. Hx severe BRYCE with HD requirement: mild BRYCE at admit, prob vasomotor. monitor with IVF, PO fluids 10. morbid obesity, BMI 46. w/ moderately severe malnutrition, serum albumin 2.8. dietary teaching 11. Dyspnea: not hypoxic. prob obesity driven hypoventilation +/- anemia. trial albuterol PRN History of Present Illness History of Present Illness Out having HD wants a second opinion from brandon briones - refuses BKA If memory serves, he has seen 3 brandon briones here in his past admits for same issues Hgb 9 post BT wednesday PLAN: SSI high dose, LAbs tmr COnt PT.OT SW dispo? Dw RN Vitals Vitals Vital Signs Date Time Temp Pulse Resp B/P (MAP) Pulse Ox O2 Delivery O2 Flow Rate FiO2 05/04/17 08:30 74 145/78 05/04/17 07:00 97.7 20 93 Nasal Cannula 2.0 97.7 Physical Exam General: Alert, Oriented X3, Cooperative, No acute distress Heart: Regular rate Lungs: Clear Abdomen: Normal bowel sounds, No tenderness Extremities: No cyanosis, Other (L ankle swollen. post heel wound with jay pus, medial and lateral wounds not well healing, with detritus, ?pus) Skin: No rashes Labs LABS Laboratory Tests Test 05/03/17 13:51 05/03/17 16:36 05/03/17 20:32 05/04/17 04:05 Glucose (Fingerstick) 213 mg/dL (70-99) 204 mg/dL (70-99) 365 mg/dL (70-99) Sodium Level 141 mmol/L (136-145) Potassium Level 4.5 mmol/L (3.5-5.1) Chloride Level 104 mmol/L (98-107) Carbon Dioxide Level 31 mmol/L (21-32) Anion Gap 6 (6-14) Blood Urea Nitrogen 27 mg/dL (8-26) Creatinine 1.2 mg/dL (0.7-1.3) Estimated GFR (Cockcroft-Gault) 61.1 BUN/Creatinine Ratio 23 (6-20) Glucose Level 409 mg/dL (70-99) Calcium Level 9.6 mg/dL (8.5-10.1) Total Bilirubin 0.6 mg/dL (0.2-1.0) Aspartate Amino Transf (AST/SGOT) 13 U/L (15-37) Alanine Aminotransferase (ALT/SGPT) 22 U/L (16-63) Alkaline Phosphatase 105 U/L (46-116) Total Protein 7.2 g/dL (6.4-8.2) Albumin 2.6 g/dL (3.4-5.0) Albumin/Globulin Ratio 0.6 (1.0-1.7) Test 05/04/17 04:50 05/04/17 08:09 White Blood Count 9.0 x10^3/uL (4.0-11.0) Red Blood Count 2.93 x10^6/uL (4.30-5.70) Hemoglobin 9.3 g/dL (13.0-17.5) Hematocrit 27.4 % (39.0-53.0) Mean Corpuscular Volume 94 fL (79-100) Mean Corpuscular Hemoglobin 32 pg (25-35) Mean Corpuscular Hemoglobin Concent 34 g/dL (31-37) Red Cell Distribution Width 16.2 % (11.5-14.5) Platelet Count 144 x10^3/uL (140-400) Neutrophils (%) (Auto) 85 % (31-73) Lymphocytes (%) (Auto) 6 % (24-48) Monocytes (%) (Auto) 8 % (0-9) Eosinophils (%) (Auto) 1 % (0-3) Basophils (%) (Auto) 0 % (0-3) Neutrophils # (Auto) 7.6 x10^3uL (1.8-7.7) Lymphocytes # (Auto) 0.5 x10^3/uL (1.0-4.8) Monocytes # (Auto) 0.7 x10^3/uL (0.0-1.1) Eosinophils # (Auto) 0.1 x10^3/uL (0.0-0.7) Basophils # (Auto) 0.0 x10^3/uL (0.0-0.2) Glucose (Fingerstick) 338 mg/dL (70-99) Review of Systems Review of Systems leg pains, no abd pain, cp or soa Assessment and Plan Assessmemt and Plan Problems Medical Problems: (1) Anemia Status: Acute (2) Syncope Status: Acute Problems: Comment Review of Relevant I have reviewed the following items lauryn (where applicable) has been applied. Labs Laboratory Tests Test 05/02/17 16:40 05/02/17 17:00 05/02/17 20:52 05/03/17 04:00 Glucose (Fingerstick) 286 mg/dL (70-99) 320 mg/dL (70-99) O2 Saturation 98 % (92-99) Arterial Blood pH 7.57 (7.35-7.45) Arterial Blood pCO2 at Patient Temp 24 mmHg (35-46) Arterial Blood pO2 at Patient Temp 125 mmHg (65-108) Arterial Blood HCO3 21 mmol/L (21-28) Arterial Blood Base Excess 0 mmol/L (-3-3) White Blood Count 8.9 x10^3/uL (4.0-11.0) Red Blood Count 3.07 x10^6/uL (4.30-5.70) Hemoglobin 9.5 g/dL (13.0-17.5) Hematocrit 28.4 % (39.0-53.0) Mean Corpuscular Volume 92 fL (79-100) Mean Corpuscular Hemoglobin 31 pg (25-35) Mean Corpuscular Hemoglobin Concent 34 g/dL (31-37) Red Cell Distribution Width 15.8 % (11.5-14.5) Platelet Count 169 x10^3/uL (140-400) Neutrophils (%) (Auto) 77 % (31-73) Lymphocytes (%) (Auto) 10 % (24-48) Monocytes (%) (Auto) 8 % (0-9) Eosinophils (%) (Auto) 4 % (0-3) Basophils (%) (Auto) 0 % (0-3) Neutrophils # (Auto) 6.8 x10^3uL (1.8-7.7) Lymphocytes # (Auto) 0.9 x10^3/uL (1.0-4.8) Monocytes # (Auto) 0.7 x10^3/uL (0.0-1.1) Eosinophils # (Auto) 0.4 x10^3/uL (0.0-0.7) Basophils # (Auto) 0.0 x10^3/uL (0.0-0.2) Sodium Level 140 mmol/L (136-145) Potassium Level 4.1 mmol/L (3.5-5.1) Chloride Level 102 mmol/L (98-107) Carbon Dioxide Level 29 mmol/L (21-32) Anion Gap 9 (6-14) Blood Urea Nitrogen 30 mg/dL (8-26) Creatinine 1.2 mg/dL (0.7-1.3) Estimated GFR (Cockcroft-Gault) 61.1 BUN/Creatinine Ratio 25 (6-20) Glucose Level 239 mg/dL (70-99) Calcium Level 9.8 mg/dL (8.5-10.1) Total Bilirubin 0.5 mg/dL (0.2-1.0) Aspartate Amino Transf (AST/SGOT) 17 U/L (15-37) Alanine Aminotransferase (ALT/SGPT) 25 U/L (16-63) Alkaline Phosphatase 109 U/L (46-116) Total Protein 7.5 g/dL (6.4-8.2) Albumin 2.7 g/dL (3.4-5.0) Albumin/Globulin Ratio 0.6 (1.0-1.7) Test 05/03/17 09:26 05/03/17 13:51 05/03/17 16:36 05/03/17 20:32 Glucose (Fingerstick) 231 mg/dL (70-99) 213 mg/dL (70-99) 204 mg/dL (70-99) 365 mg/dL (70-99) Test 05/04/17 04:05 05/04/17 04:50 05/04/17 08:09 Sodium Level 141 mmol/L (136-145) Potassium Level 4.5 mmol/L (3.5-5.1) Chloride Level 104 mmol/L (98-107) Carbon Dioxide Level 31 mmol/L (21-32) Anion Gap 6 (6-14) Blood Urea Nitrogen 27 mg/dL (8-26) Creatinine 1.2 mg/dL (0.7-1.3) Estimated GFR (Cockcroft-Gault) 61.1 BUN/Creatinine Ratio 23 (6-20) Glucose Level 409 mg/dL (70-99) Calcium Level 9.6 mg/dL (8.5-10.1) Total Bilirubin 0.6 mg/dL (0.2-1.0) Aspartate Amino Transf (AST/SGOT) 13 U/L (15-37) Alanine Aminotransferase (ALT/SGPT) 22 U/L (16-63) Alkaline Phosphatase 105 U/L (46-116) Total Protein 7.2 g/dL (6.4-8.2) Albumin 2.6 g/dL (3.4-5.0) Albumin/Globulin Ratio 0.6 (1.0-1.7) White Blood Count 9.0 x10^3/uL (4.0-11.0) Red Blood Count 2.93 x10^6/uL (4.30-5.70) Hemoglobin 9.3 g/dL (13.0-17.5) Hematocrit 27.4 % (39.0-53.0) Mean Corpuscular Volume 94 fL (79-100) Mean Corpuscular Hemoglobin 32 pg (25-35) Mean Corpuscular Hemoglobin Concent 34 g/dL (31-37) Red Cell Distribution Width 16.2 % (11.5-14.5) Platelet Count 144 x10^3/uL (140-400) Neutrophils (%) (Auto) 85 % (31-73) Lymphocytes (%) (Auto) 6 % (24-48) Monocytes (%) (Auto) 8 % (0-9) Eosinophils (%) (Auto) 1 % (0-3) Basophils (%) (Auto) 0 % (0-3) Neutrophils # (Auto) 7.6 x10^3uL (1.8-7.7) Lymphocytes # (Auto) 0.5 x10^3/uL (1.0-4.8) Monocytes # (Auto) 0.7 x10^3/uL (0.0-1.1) Eosinophils # (Auto) 0.1 x10^3/uL (0.0-0.7) Basophils # (Auto) 0.0 x10^3/uL (0.0-0.2) Glucose (Fingerstick) 338 mg/dL (70-99) Laboratory Tests Test 05/03/17 13:51 05/03/17 16:36 05/03/17 20:32 05/04/17 04:05 Glucose (Fingerstick) 213 mg/dL (70-99) 204 mg/dL (70-99) 365 mg/dL (70-99) Sodium Level 141 mmol/L (136-145) Potassium Level 4.5 mmol/L (3.5-5.1) Chloride Level 104 mmol/L (98-107) Carbon Dioxide Level 31 mmol/L (21-32) Anion Gap 6 (6-14) Blood Urea Nitrogen 27 mg/dL (8-26) Creatinine 1.2 mg/dL (0.7-1.3) Estimated GFR (Cockcroft-Gault) 61.1 BUN/Creatinine Ratio 23 (6-20) Glucose Level 409 mg/dL (70-99) Calcium Level 9.6 mg/dL (8.5-10.1) Total Bilirubin 0.6 mg/dL (0.2-1.0) Aspartate Amino Transf (AST/SGOT) 13 U/L (15-37) Alanine Aminotransferase (ALT/SGPT) 22 U/L (16-63) Alkaline Phosphatase 105 U/L (46-116) Total Protein 7.2 g/dL (6.4-8.2) Albumin 2.6 g/dL (3.4-5.0) Albumin/Globulin Ratio 0.6 (1.0-1.7) Test 05/04/17 04:50 05/04/17 08:09 White Blood Count 9.0 x10^3/uL (4.0-11.0) Red Blood Count 2.93 x10^6/uL (4.30-5.70) Hemoglobin 9.3 g/dL (13.0-17.5) Hematocrit 27.4 % (39.0-53.0) Mean Corpuscular Volume 94 fL (79-100) Mean Corpuscular Hemoglobin 32 pg (25-35) Mean Corpuscular Hemoglobin Concent 34 g/dL (31-37) Red Cell Distribution Width 16.2 % (11.5-14.5) Platelet Count 144 x10^3/uL (140-400) Neutrophils (%) (Auto) 85 % (31-73) Lymphocytes (%) (Auto) 6 % (24-48) Monocytes (%) (Auto) 8 % (0-9) Eosinophils (%) (Auto) 1 % (0-3) Basophils (%) (Auto) 0 % (0-3) Neutrophils # (Auto) 7.6 x10^3uL (1.8-7.7) Lymphocytes # (Auto) 0.5 x10^3/uL (1.0-4.8) Monocytes # (Auto) 0.7 x10^3/uL (0.0-1.1) Eosinophils # (Auto) 0.1 x10^3/uL (0.0-0.7) Basophils # (Auto) 0.0 x10^3/uL (0.0-0.2) Glucose (Fingerstick) 338 mg/dL (70-99) Microbiology 05/03/17 Gram Stain - Final, Complete Medications Current Medications Sodium Chloride 1,000 ml @ 999 mls/hr Q1H1M IV Last administered on 00:02; Start 04/29/17 at 15:28; Stop 04/30/17 at 02:42; Status DC Aspirin (Omkar Aspirin) 325 mg DAILY PO Last administered on 05/01/17 08:32; Start 04/30/17 at 09:00; Stop 05/03/17 at 08:39; Status DC Atorvastatin Calcium (Lipitor) 20 mg QHS PO Last administered on 05/03/17 20: 42; Start 04/29/17 at 21:00 Celecoxib (CeleBREX) 200 mg BID PO Last administered on 05/02/17 21:27; Start 04/29/17 at 21:00; Stop 05/03/17 at 08:39; Status DC Vitamin D (Vitamin D3) 1,000 unit DAILY PO Last administered on 05/04/17 08: 29; Start 04/30/17 at 09:00 Clopidogrel Bisulfate (Plavix) 75 mg DAILY PO Last administered on 05/01/17 08:33; Start 04/30/17 at 09:00; Stop 05/02/17 at 12:02; Status DC Docusate Sodium (Colace) 100 mg DAILY PO Last administered on 05/04/17 08:30 ; Start 04/30/17 at 09:00 Fentanyl (Duragesic 75mcg/ Hr Patch) 1 patch Q3DAYS TD Last administered on 18:06; Start 04/30/17 at 09:00 Acetaminophen/ Hydrocodone Bitart (Lortab 7.5/325) 1 tab PRN Q6HRS PRN PO MODERATE PAIN Last administered on 04/29/17 21:25; Start 04/29/17 at 18:00; Stop 04/29/17 at 22:47; Status DC Losartan Potassium (Cozaar) 50 mg DAILY PO ; Start 04/30/17 at 09:00; Stop at 09:00; Status DC Metformin HCl (Glucophage) 500 mg BIDWMEALS PO Last administered on 05/04/17 08:30; Start 04/30/17 at 08:00 Pantoprazole Sodium (Protonix) 40 mg DAILYAC PO Last administered on 08:30; Start 04/30/17 at 07:30 Piperacillin/ Tazobactam/ Dextrose (Zosyn 3.375gm Premix) 3.375 gm Q6HRS IV ; Start 04/30/17 at 00:00; Status Cancel Tamsulosin HCl (Flomax) 0.4 mg BID PO Last administered on 05/04/17 08:29; Start 04/29/17 at 21:00 Tamsulosin HCl (Flomax) 0.4 mg HS PO ; Start 04/29/17 at 21:00; Status UNV Citalopram Hydrobromide (CeleXA) 40 mg DAILY PO Last administered on 08:29; Start 04/30/17 at 09:00 Gabapentin (Neurontin) 300 mg BID PO Last administered on 05/04/17 08:30; Start 04/29/17 at 21:00 Insulin Aspart (NovoLOG) 15 units TIDAC SQ Last administered on 05/04/17 08: 34; Start 04/30/17 at 07:30 Insulin Detemir (Levemir) 22 units QHS SQ Last administered on 04/29/17 21:26 ; Start 04/29/17 at 21:00; Stop 04/30/17 at 08:32; Status DC Labetalol HCl (Normodyne) 20 mg Q2HR PRN IVP hypertension; Start 04/29/17 at 18:00 Piperacillin Sod/ Tazobactam Sod 4.5 gm/Dextrose 100 ml @ 200 mls/hr 1X ONCE IV ; Start 04/29/17 at 18:15; Stop 04/29/17 at 18:44; Status UNV Piperacillin Sod/ Tazobactam Sod (Zosyn) 4.5 gm 1X ONCE IVP Last administered on 04/29/17 18:57; Start 04/29/17 at 18:30; Stop 04/29/17 at 18:31; Status DC Piperacillin Sod/ Tazobactam Sod (Zosyn) 3.375 gm Q6HRS IVP Last administered on 05/04/17 05:50; Start 04/30/17 at 00:00 Hydromorphone HCl (Dilaudid) 1 mg 1X ONCE IV Last administered on 04/29/17 22:55; Start 04/29/17 at 22:45; Stop 04/29/17 at 22:46; Status DC Acetaminophen/ Hydrocodone Bitart (Lortab 7.5/325) 2 tab PRN Q6HRS PRN PO MODERATE PAIN Last administered on 05/01/17 20:30; Start 04/29/17 at 23:00 Hydromorphone HCl (Dilaudid) 1 mg PRN Q4HRS PRN IVP PAIN; Start 04/29/17 at 23 :00; Stop 04/30/17 at 08:32; Status DC Insulin Detemir (Levemir) 25 units DAILY08 SQ Last administered on 05/01/17 08:39; Start 04/30/17 at 09:00; Stop 05/01/17 at 17:01; Status DC Losartan Potassium (Cozaar) 100 mg DAILY PO Last administered on 05/04/17 08: 30; Start 04/30/17 at 09:00 Lactobacillus Rhamnosus (Culturelle) 1 cap BID PO Last administered on 20:42; Start 05/01/17 at 21:00 Insulin Detemir (Levemir) 35 units DAILY08 SQ Last administered on 05/02/17 08:08; Start 05/02/17 at 08:00; Stop 05/02/17 at 11:55; Status DC Insulin Aspart (NovoLOG) 18 units 1X ONCE SQ Last administered on 05/01/17 22:46; Start 05/01/17 at 22:45; Stop 05/01/17 at 22:46; Status DC Albuterol Sulfate (Ventolin Neb Soln) 2.5 mg PRN Q4HRS PRN NEB SHORTNESS OF BREATH Last administered on 05/03/17 04:19; Start 05/02/17 at 10:00 Insulin Detemir (Levemir) 45 units DAILY08 SQ Last administered on 05/04/17 08:34; Start 05/02/17 at 13:00 Acetaminophen/ Hydrocodone Bitart (Lortab 5/325) 1 tab PRN Q4HRS PRN PO PAIN; Start 05/03/17 at 08:45 Insulin Aspart (NovoLOG) 3 units 1X ONCE SQ Last administered on 05/03/17 09 :09; Start 05/03/17 at 09:15; Stop 05/03/17 at 09:16; Status DC Fentanyl Citrate (Fentanyl 2ml Vial) 100 mcg STK-MED ONCE .ROUTE ; Start at 14:55; Stop 05/03/17 at 14:56; Status DC Midazolam HCl (Versed) 2 mg STK-MED ONCE .ROUTE ; Start 05/03/17 at 14:55; Stop 05/03/17 at 14:56; Status DC Propofol 20 ml @ As Directed STK-MED ONCE IV ; Start 05/03/17 at 15:18; Stop 05/03/17 at 15:19; Status DC Dexamethasone Sodium Phosphate (Decadron) 20 mg STK-MED ONCE .ROUTE ; Start at 15:18; Stop 05/03/17 at 15:19; Status DC Famotidine (Pepcid Vial) 20 mg STK-MED ONCE .ROUTE ; Start 05/03/17 at 15:18; Stop 05/03/17 at 15:19; Status DC Lidocaine HCl (Lidocaine Pf 2% Vial) 5 ml STK-MED ONCE .ROUTE ; Start 05/03/17 at 15:18; Stop 05/03/17 at 15:19; Status DC Ondansetron HCl (Zofran) 4 mg STK-MED ONCE .ROUTE ; Start 05/03/17 at 15:18; Stop 05/03/17 at 15:19; Status DC Phenylephrine HCl 1 mg STK-MED ONCE IV ; Start 05/03/17 at 15:41; Stop at 15:42; Status DC Ephedrine Sulfate (Akovaz) 50 mg STK-MED ONCE .ROUTE ; Start 05/03/17 at 15:53 ; Stop 05/03/17 at 15:54; Status DC Sevoflurane (Ultane) 30 ml STK-MED ONCE IH ; Start 05/03/17 at 16:02; Stop at 16:03; Status DC Insulin Aspart (NovoLOG VIAL) 3 unit 1X PACU PRN SQ SEE COMMENTS Last administered on 05/03/17t 16:59; Start 05/03/17 at 16:45 Midazolam HCl (Versed) 2 mg PRN 1X PRN IV PRIOR TO PROCEDURE; Start 05/03/17 at 18:30; Stop 05/04/17 at 06:00; Status DC Sodium Chloride 1,000 ml @ 125 mls/hr Q8H IV Last administered on 05/04/17t 02:16; Start 05/03/17 at 18:30; Stop 05/04/17 at 06:00; Status DC Lidocaine HCl (Xylocaine-Mpf 1% Vial) 2 ml 1X PRN PRN ID IV START; Start 05/03 at 18:30; Stop 05/04/17 at 06:00; Status DC Insulin Detemir (Levemir) 20 units QHS SQ ; Start 05/04/17 at 21:00 Active Scripts Active Hydrocodone-Apap 7.5-325 (Hydrocodone Bit/Acetaminophen) 1 Each Tablet 1 Tab PO PRN Q6HRS PRN FENTANYL 50mcg/hr (Fentanyl) 1 Each Patch.td72 1 Patch TP Q3DAYS Reported Tamsulosin Hcl 0.4 Mg Cap.er.24h 1 Cap PO DAILY Zosyn 3.375 Gm Galaxy Bag (Eubwjkfjvwoj-Kyye-Gigdubqe,Iso) 3.375 Gm/50 Ml Froz.piggy 3.375 Gm IV Q6HRS Novolog (Insulin Aspart) 100 Unit/1 Ml Cartridge 15 Unit SQ TIDAC Pantoprazole Sodium 40 Mg Tablet.dr 40 Mg PO DAILY Levemir (Insulin Detemir) 100 Unit/1 Ml Vial 22 Unit SQ HS FENTANYL 75mcg/hr (Fentanyl) 1 Each Patch.td72 1 Patch TP Q3DAYS Colace (Docusate Sodium) 100 Mg Capsule 1 Cap PO DAILY Aspirin 325 Mg Tablet 1 Tab PO DAILY Vitamin D3 (Cholecalciferol (Vitamin D3)) 1,000 Unit Tablet 1 Tab PO DAILY Losartan Potassium 50 Mg Tablet 50 Mg PO DAILY Gabapentin 300 Mg Capsule 300 Mg PO BID Celebrex (Celecoxib) 200 Mg Capsule 200 Mg PO BID 30 Days Citalopram Hbr (Citalopram Hydrobromide) 40 Mg Tablet 40 Mg PO DAILY Lipitor (Atorvastatin Calcium) 20 Mg Tablet 20 Mg PO QHS Flomax (Tamsulosin Hcl) 0.4 Mg Cap.er.24h 0.4 Mg PO HS Metformin Hcl 500 Mg Tablet 500 Mg PO BID Plavix (Clopidogrel Bisulfate) 75 Mg Tablet 75 Mg PO DAILY Vitals/I & O Vital Sign - Last 24 Hours 05/03/17 05/03/17 05/03/17 05/03/17 12:41 16:14 16:29 16:40 Temp 98.1 97.6 98.1 97.6 Pulse 76 79 77 Resp 15 21 16 B/P (MAP) 157/83 131/74 154/80 Pulse Ox 95 99 95 O2 Delivery Room Air Room Air Room Air Nasal Cannula O2 Flow Rate 2 05/03/17 05/03/17 05/03/17 05/03/17 16:44 16:59 18:04 18:06 Pulse 74 74 79 Resp 18 16 20 B/P (MAP) 132/74 144/80 155/82 Pulse Ox 93 96 94 O2 Delivery Room Air Nasal Cannula Nasal Cannula O2 Flow Rate 2 2.0 05/03/17 05/03/17 05/03/17 05/03/17 19:00 20:00 22:00 23:09 Temp 97.7 97.7 97.7 97.7 Pulse 78 86 Resp 18 20 18 B/P (MAP) 155/82 (106) 159/90 (113) Pulse Ox 97 94 O2 Delivery Nasal Cannula Room Air Room Air O2 Flow Rate 2.0 05/04/17 05/04/17 05/04/17 03:00 07:00 08:30 Temp 97.8 97.7 97.8 97.7 Pulse 73 74 74 Resp 18 20 B/P (MAP) 129/69 (89) 145/78 (100) 145/78 Pulse Ox 98 93 O2 Delivery Room Air Nasal Cannula O2 Flow Rate 2.0 Intake and Output 05/03/17 05/03/17 05/04/17 15:00 23:00 07:00 Intake Total 350 ml 1125 ml Output Total 200 ml 300 ml 1900 ml Balance -200 ml 50 ml -775 ml MARINA GREGG MD May 04, 2017 12:11
[2017-05-04 15:18] VITALS: BP 125/65
[2017-05-04 19:00] VITALS: BP 140/69
[2017-05-04] MEDS: ATORVASTATIN CALCIUM 20 MG TABLET PO SCH (20:59)
[2017-05-04 23:00] VITALS: BP 140/78
[2017-05-05] MEDS: PIPERACILLIN/TAZO IV Push 3.375 GM VIAL. IVP SCH ×5 (00:09→23:52)
[2017-05-05 03:00] VITALS: BP 105/58
[2017-05-05 04:52] LABS: BASO # 0.1 x10^3/uL (0.0-0.2); BASO % 1 % (0-3); EOS % 5 % (0-3); HEMATOCRIT 27.3 % (39.0-53.0); HEMOGLOBIN 9.2 g/dL (13.0-17.5); LYMPH # 0.8 x10^3/uL (1.0-4.8); LYMPH % 10 % (24-48); MEAN CORPUSCULAR HEMOGLOBIN 31 pg (25-35); MEAN CORPUSCULAR HGB CONC 34 g/dL (31-37); MEAN CORPUSCULAR VOLUME 93 fL (79-100); MONO % 9 % (0-9); NEUT % 76 % (31-73); PLATELET COUNT 149 x10^3/uL (140-400); RED BLOOD COUNT 2.93 x10^6/uL (4.30-5.70); RED CELL DISTRIBUTION WIDTH 16.3 % (11.5-14.5); WHITE BLOOD COUNT 8.4 x10^3/uL (4.0-11.0)
[2017-05-05 05:20] LABS: ALBUMIN 2.7 g/dL (3.4-5.0); ALBUMIN/GLOBULIN RATIO 0.6 (1.0-1.7); CALCIUM 9.3 mg/dL (8.5-10.1); CREATININE 1.4 mg/dL (0.7-1.3); GFR 51.2; POTASSIUM 3.9 mmol/L (3.5-5.1); TOTAL BILIRUBIN 0.5 mg/dL (0.2-1.0)
[2017-05-05 07:00] VITALS: BP 159/82
[2017-05-05] MEDS: INSULIN ASPART 300 UNITS/3 ML INSULN.PEN SQ SCH ×5 (07:30→17:36)
--- NOTE | 2017-05-05 07:57 | PDOC ---
ORTHO PROGRESS NOTES Subjective Pain tolerable. Eating breakfast. VAC changed yesterday Vitals Vital Signs Date Time Temp Pulse Resp B/P (MAP) Pulse Ox O2 Delivery O2 Flow Rate FiO2 05/05/17 03:00 97.9 68 18 105/58 (74) 92 Room Air 97.9 05/04/17 08:00 2.0 Labs Laboratory Tests Test 05/03/17 09:26 05/03/17 13:51 05/03/17 16:36 05/03/17 20:32 Glucose (Fingerstick) 231 mg/dL (70-99) 213 mg/dL (70-99) 204 mg/dL (70-99) 365 mg/dL (70-99) Test 05/04/17 04:05 05/04/17 04:50 05/04/17 08:09 05/04/17 16:50 Sodium Level 141 mmol/L (136-145) Potassium Level 4.5 mmol/L (3.5-5.1) Chloride Level 104 mmol/L (98-107) Carbon Dioxide Level 31 mmol/L (21-32) Anion Gap 6 (6-14) Blood Urea Nitrogen 27 mg/dL (8-26) Creatinine 1.2 mg/dL (0.7-1.3) Estimated GFR (Cockcroft-Gault) 61.1 BUN/Creatinine Ratio 23 (6-20) Glucose Level 409 mg/dL (70-99) Calcium Level 9.6 mg/dL (8.5-10.1) Total Bilirubin 0.6 mg/dL (0.2-1.0) Aspartate Amino Transf (AST/SGOT) 13 U/L (15-37) Alanine Aminotransferase (ALT/SGPT) 22 U/L (16-63) Alkaline Phosphatase 105 U/L (46-116) Total Protein 7.2 g/dL (6.4-8.2) Albumin 2.6 g/dL (3.4-5.0) Albumin/Globulin Ratio 0.6 (1.0-1.7) White Blood Count 9.0 x10^3/uL (4.0-11.0) Red Blood Count 2.93 x10^6/uL (4.30-5.70) Hemoglobin 9.3 g/dL (13.0-17.5) Hematocrit 27.4 % (39.0-53.0) Mean Corpuscular Volume 94 fL (79-100) Mean Corpuscular Hemoglobin 32 pg (25-35) Mean Corpuscular Hemoglobin Concent 34 g/dL (31-37) Red Cell Distribution Width 16.2 % (11.5-14.5) Platelet Count 144 x10^3/uL (140-400) Neutrophils (%) (Auto) 85 % (31-73) Lymphocytes (%) (Auto) 6 % (24-48) Monocytes (%) (Auto) 8 % (0-9) Eosinophils (%) (Auto) 1 % (0-3) Basophils (%) (Auto) 0 % (0-3) Neutrophils # (Auto) 7.6 x10^3uL (1.8-7.7) Lymphocytes # (Auto) 0.5 x10^3/uL (1.0-4.8) Monocytes # (Auto) 0.7 x10^3/uL (0.0-1.1) Eosinophils # (Auto) 0.1 x10^3/uL (0.0-0.7) Basophils # (Auto) 0.0 x10^3/uL (0.0-0.2) Glucose (Fingerstick) 338 mg/dL (70-99) 326 mg/dL (70-99) Test 05/04/17 20:57 05/05/17 04:15 Glucose (Fingerstick) 277 mg/dL (70-99) White Blood Count 8.4 x10^3/uL (4.0-11.0) Red Blood Count 2.93 x10^6/uL (4.30-5.70) Hemoglobin 9.2 g/dL (13.0-17.5) Hematocrit 27.3 % (39.0-53.0) Mean Corpuscular Volume 93 fL (79-100) Mean Corpuscular Hemoglobin 31 pg (25-35) Mean Corpuscular Hemoglobin Concent 34 g/dL (31-37) Red Cell Distribution Width 16.3 % (11.5-14.5) Platelet Count 149 x10^3/uL (140-400) Neutrophils (%) (Auto) 76 % (31-73) Lymphocytes (%) (Auto) 10 % (24-48) Monocytes (%) (Auto) 9 % (0-9) Eosinophils (%) (Auto) 5 % (0-3) Basophils (%) (Auto) 1 % (0-3) Neutrophils # (Auto) 6.4 x10^3uL (1.8-7.7) Lymphocytes # (Auto) 0.8 x10^3/uL (1.0-4.8) Monocytes # (Auto) 0.7 x10^3/uL (0.0-1.1) Eosinophils # (Auto) 0.4 x10^3/uL (0.0-0.7) Basophils # (Auto) 0.1 x10^3/uL (0.0-0.2) Sodium Level 141 mmol/L (136-145) Potassium Level 3.9 mmol/L (3.5-5.1) Chloride Level 103 mmol/L (98-107) Carbon Dioxide Level 30 mmol/L (21-32) Anion Gap 8 (6-14) Blood Urea Nitrogen 28 mg/dL (8-26) Creatinine 1.4 mg/dL (0.7-1.3) Estimated GFR (Cockcroft-Gault) 51.2 BUN/Creatinine Ratio 20 (6-20) Glucose Level 210 mg/dL (70-99) Calcium Level 9.3 mg/dL (8.5-10.1) Total Bilirubin 0.5 mg/dL (0.2-1.0) Aspartate Amino Transf (AST/SGOT) 14 U/L (15-37) Alanine Aminotransferase (ALT/SGPT) 22 U/L (16-63) Alkaline Phosphatase 93 U/L (46-116) Total Protein 7.0 g/dL (6.4-8.2) Albumin 2.7 g/dL (3.4-5.0) Albumin/Globulin Ratio 0.6 (1.0-1.7) Laboratory Tests Test 05/04/17 08:09 05/04/17 16:50 05/04/17 20:57 05/05/17 04:15 Glucose (Fingerstick) 338 mg/dL (70-99) 326 mg/dL (70-99) 277 mg/dL (70-99) White Blood Count 8.4 x10^3/uL (4.0-11.0) Red Blood Count 2.93 x10^6/uL (4.30-5.70) Hemoglobin 9.2 g/dL (13.0-17.5) Hematocrit 27.3 % (39.0-53.0) Mean Corpuscular Volume 93 fL (79-100) Mean Corpuscular Hemoglobin 31 pg (25-35) Mean Corpuscular Hemoglobin Concent 34 g/dL (31-37) Red Cell Distribution Width 16.3 % (11.5-14.5) Platelet Count 149 x10^3/uL (140-400) Neutrophils (%) (Auto) 76 % (31-73) Lymphocytes (%) (Auto) 10 % (24-48) Monocytes (%) (Auto) 9 % (0-9) Eosinophils (%) (Auto) 5 % (0-3) Basophils (%) (Auto) 1 % (0-3) Neutrophils # (Auto) 6.4 x10^3uL (1.8-7.7) Lymphocytes # (Auto) 0.8 x10^3/uL (1.0-4.8) Monocytes # (Auto) 0.7 x10^3/uL (0.0-1.1) Eosinophils # (Auto) 0.4 x10^3/uL (0.0-0.7) Basophils # (Auto) 0.1 x10^3/uL (0.0-0.2) Sodium Level 141 mmol/L (136-145) Potassium Level 3.9 mmol/L (3.5-5.1) Chloride Level 103 mmol/L (98-107) Carbon Dioxide Level 30 mmol/L (21-32) Anion Gap 8 (6-14) Blood Urea Nitrogen 28 mg/dL (8-26) Creatinine 1.4 mg/dL (0.7-1.3) Estimated GFR (Cockcroft-Gault) 51.2 BUN/Creatinine Ratio 20 (6-20) Glucose Level 210 mg/dL (70-99) Calcium Level 9.3 mg/dL (8.5-10.1) Total Bilirubin 0.5 mg/dL (0.2-1.0) Aspartate Amino Transf (AST/SGOT) 14 U/L (15-37) Alanine Aminotransferase (ALT/SGPT) 22 U/L (16-63) Alkaline Phosphatase 93 U/L (46-116) Total Protein 7.0 g/dL (6.4-8.2) Albumin 2.7 g/dL (3.4-5.0) Albumin/Globulin Ratio 0.6 (1.0-1.7) Notes A and A sitting at edge of bed RLE: dressing intact LLE: VAC in place edema and cellulitic changes still present Assessment and Plan from my standpoint, he can be discharged. I have spoken with both Carlota and Glenis regarding his Ortho issues. He is not interested in BKA family wishes for another opinion, which I encouraged f/u Ortho in 2-3 wks otherwise EDIN KEARNS II, MD May 05, 2017 07:57
[2017-05-05] MEDS: metFORMIN 500 MG TABLET PO SCH ×2 (08:29→17:25)
[2017-05-05] MEDS: DOCUSATE SODIUM 100 MG CAPSULE. PO SCH (08:29)
[2017-05-05] MEDS: TAMSULOSIN 0.4 MG CAP.ER.24H. PO SCH ×2 (08:30→22:01)
[2017-05-05] MEDS: PANTOPRAZOLE 40 MG TABLET.DR. PO SCH (08:30)
[2017-05-05] MEDS: LACTOBACILLUS RHAMNOSUS GG 1 CAPSULE. PO SCH ×2 (08:30→22:01)
[2017-05-05] MEDS: LOSARTAN POTASSIUM 50 MG TABLET. PO SCH (08:30)
[2017-05-05] MEDS: CITALOPRAM 20 MG TABLET. PO SCH (08:30)
[2017-05-05] MEDS: GABAPENTIN 300 MG CAPSULE. PO SCH ×2 (08:31→22:01)
[2017-05-05] MEDS: CHOLECALCIFEROL (VITAMIN D3) 1,000 UNIT TABLET PO SCH (08:31)
[2017-05-05] MEDS ORDERED: LOSA100T6 PO (09:30)
--- NOTE | 2017-05-05 09:33 | PDOC3 ---
Discharge Summary Visit Information Date of Admission: Apr 29, 2017 Date of Discharge: May 05, 2017 Admitting Diagnosis Comment: 1. Syncope: poss vasovagal or related to anemia. no obvious cardiac source. 2. Anemia: chronic, did receive PRBC x2 2 days ago, now lowish again. transfuse PRBC x2 in anticipation of surgery. check OB stool. nl vitamin levels , ferritin and retic c/w inflammatory anemia. no sign of GIB. cont low dose PO iron, folate 3. L LE cellulitis: on zosyn as per ID service 4. L LE fx: external hardware removed 2 weeks ago, sites purulent. ortho on board, planned surgery in AM 5. HTN: well controlled with med adjustement 6. DM2: poorly controlled (chronic). switched to AM levemir, needs furhter increase in levemir 7. CAD: no acute issues. cont 2ary prevention meds 8. Hx CVA 9. Hx severe RBYCE with HD requirement: mild BRYCE at admit, prob vasomotor. monitor with IVF, PO fluids 10. morbid obesity, BMI 46. w/ moderately severe malnutrition, serum albumin 2.8. dietary teaching 11. Dyspnea: not hypoxic. prob obesity driven hypoventilation +/- anemia. trial albuterol PRN Final Diagnosis Problems Medical Problems: (1) Anemia Status: Acute (2) Syncope Status: Acute Brief Hospital Course Allergies Allergies Coded Allergies Type Severity Reaction Last Updated Verified morphine Allergy Intermediate 02/19/17 Yes Vital Signs Vital Signs Date Time Temp Pulse Resp B/P (MAP) Pulse Ox O2 Delivery O2 Flow Rate FiO2 05/05/17 08:30 80 159/82 05/05/17 07:00 97.7 20 95 Nasal Cannula 1.0 97.7 Lab Results Laboratory Tests Test 05/03/17 13:51 05/03/17 16:36 05/03/17 20:32 05/04/17 04:05 Glucose (Fingerstick) 213 mg/dL (70-99) 204 mg/dL (70-99) 365 mg/dL (70-99) Sodium Level 141 mmol/L (136-145) Potassium Level 4.5 mmol/L (3.5-5.1) Chloride Level 104 mmol/L (98-107) Carbon Dioxide Level 31 mmol/L (21-32) Anion Gap 6 (6-14) Blood Urea Nitrogen 27 mg/dL (8-26) Creatinine 1.2 mg/dL (0.7-1.3) Estimated GFR (Cockcroft-Gault) 61.1 BUN/Creatinine Ratio 23 (6-20) Glucose Level 409 mg/dL (70-99) Calcium Level 9.6 mg/dL (8.5-10.1) Total Bilirubin 0.6 mg/dL (0.2-1.0) Aspartate Amino Transf (AST/SGOT) 13 U/L (15-37) Alanine Aminotransferase (ALT/SGPT) 22 U/L (16-63) Alkaline Phosphatase 105 U/L (46-116) Total Protein 7.2 g/dL (6.4-8.2) Albumin 2.6 g/dL (3.4-5.0) Albumin/Globulin Ratio 0.6 (1.0-1.7) Test 05/04/17 04:50 05/04/17 08:09 05/04/17 16:50 05/04/17 20:57 White Blood Count 9.0 x10^3/uL (4.0-11.0) Red Blood Count 2.93 x10^6/uL (4.30-5.70) Hemoglobin 9.3 g/dL (13.0-17.5) Hematocrit 27.4 % (39.0-53.0) Mean Corpuscular Volume 94 fL (79-100) Mean Corpuscular Hemoglobin 32 pg (25-35) Mean Corpuscular Hemoglobin Concent 34 g/dL (31-37) Red Cell Distribution Width 16.2 % (11.5-14.5) Platelet Count 144 x10^3/uL (140-400) Neutrophils (%) (Auto) 85 % (31-73) Lymphocytes (%) (Auto) 6 % (24-48) Monocytes (%) (Auto) 8 % (0-9) Eosinophils (%) (Auto) 1 % (0-3) Basophils (%) (Auto) 0 % (0-3) Neutrophils # (Auto) 7.6 x10^3uL (1.8-7.7) Lymphocytes # (Auto) 0.5 x10^3/uL (1.0-4.8) Monocytes # (Auto) 0.7 x10^3/uL (0.0-1.1) Eosinophils # (Auto) 0.1 x10^3/uL (0.0-0.7) Basophils # (Auto) 0.0 x10^3/uL (0.0-0.2) Glucose (Fingerstick) 338 mg/dL (70-99) 326 mg/dL (70-99) 277 mg/dL (70-99) Test 05/05/17 04:15 05/05/17 07:26 White Blood Count 8.4 x10^3/uL (4.0-11.0) Red Blood Count 2.93 x10^6/uL (4.30-5.70) Hemoglobin 9.2 g/dL (13.0-17.5) Hematocrit 27.3 % (39.0-53.0) Mean Corpuscular Volume 93 fL (79-100) Mean Corpuscular Hemoglobin 31 pg (25-35) Mean Corpuscular Hemoglobin Concent 34 g/dL (31-37) Red Cell Distribution Width 16.3 % (11.5-14.5) Platelet Count 149 x10^3/uL (140-400) Neutrophils (%) (Auto) 76 % (31-73) Lymphocytes (%) (Auto) 10 % (24-48) Monocytes (%) (Auto) 9 % (0-9) Eosinophils (%) (Auto) 5 % (0-3) Basophils (%) (Auto) 1 % (0-3) Neutrophils # (Auto) 6.4 x10^3uL (1.8-7.7) Lymphocytes # (Auto) 0.8 x10^3/uL (1.0-4.8) Monocytes # (Auto) 0.7 x10^3/uL (0.0-1.1) Eosinophils # (Auto) 0.4 x10^3/uL (0.0-0.7) Basophils # (Auto) 0.1 x10^3/uL (0.0-0.2) Sodium Level 141 mmol/L (136-145) Potassium Level 3.9 mmol/L (3.5-5.1) Chloride Level 103 mmol/L (98-107) Carbon Dioxide Level 30 mmol/L (21-32) Anion Gap 8 (6-14) Blood Urea Nitrogen 28 mg/dL (8-26) Creatinine 1.4 mg/dL (0.7-1.3) Estimated GFR (Cockcroft-Gault) 51.2 BUN/Creatinine Ratio 20 (6-20) Glucose Level 210 mg/dL (70-99) Calcium Level 9.3 mg/dL (8.5-10.1) Total Bilirubin 0.5 mg/dL (0.2-1.0) Aspartate Amino Transf (AST/SGOT) 14 U/L (15-37) Alanine Aminotransferase (ALT/SGPT) 22 U/L (16-63) Alkaline Phosphatase 93 U/L (46-116) Total Protein 7.0 g/dL (6.4-8.2) Albumin 2.7 g/dL (3.4-5.0) Albumin/Globulin Ratio 0.6 (1.0-1.7) Glucose (Fingerstick) 192 mg/dL (70-99) Laboratory Tests Test 05/04/17 16:50 05/04/17 20:57 05/05/17 04:15 05/05/17 07:26 Glucose (Fingerstick) 326 mg/dL (70-99) 277 mg/dL (70-99) 192 mg/dL (70-99) White Blood Count 8.4 x10^3/uL (4.0-11.0) Red Blood Count 2.93 x10^6/uL (4.30-5.70) Hemoglobin 9.2 g/dL (13.0-17.5) Hematocrit 27.3 % (39.0-53.0) Mean Corpuscular Volume 93 fL (79-100) Mean Corpuscular Hemoglobin 31 pg (25-35) Mean Corpuscular Hemoglobin Concent 34 g/dL (31-37) Red Cell Distribution Width 16.3 % (11.5-14.5) Platelet Count 149 x10^3/uL (140-400) Neutrophils (%) (Auto) 76 % (31-73) Lymphocytes (%) (Auto) 10 % (24-48) Monocytes (%) (Auto) 9 % (0-9) Eosinophils (%) (Auto) 5 % (0-3) Basophils (%) (Auto) 1 % (0-3) Neutrophils # (Auto) 6.4 x10^3uL (1.8-7.7) Lymphocytes # (Auto) 0.8 x10^3/uL (1.0-4.8) Monocytes # (Auto) 0.7 x10^3/uL (0.0-1.1) Eosinophils # (Auto) 0.4 x10^3/uL (0.0-0.7) Basophils # (Auto) 0.1 x10^3/uL (0.0-0.2) Sodium Level 141 mmol/L (136-145) Potassium Level 3.9 mmol/L (3.5-5.1) Chloride Level 103 mmol/L (98-107) Carbon Dioxide Level 30 mmol/L (21-32) Anion Gap 8 (6-14) Blood Urea Nitrogen 28 mg/dL (8-26) Creatinine 1.4 mg/dL (0.7-1.3) Estimated GFR (Cockcroft-Gault) 51.2 BUN/Creatinine Ratio 20 (6-20) Glucose Level 210 mg/dL (70-99) Calcium Level 9.3 mg/dL (8.5-10.1) Total Bilirubin 0.5 mg/dL (0.2-1.0) Aspartate Amino Transf (AST/SGOT) 14 U/L (15-37) Alanine Aminotransferase (ALT/SGPT) 22 U/L (16-63) Alkaline Phosphatase 93 U/L (46-116) Total Protein 7.0 g/dL (6.4-8.2) Albumin 2.7 g/dL (3.4-5.0) Albumin/Globulin Ratio 0.6 (1.0-1.7) Brief Hospital Course Mr. Soliz is a 62 old male, known to us, for issues with legs, he started with external fixators in his legs, then lTAC course, then came back [facility] and had the external fixators removed, then compliacted by leg wounds,. And now this admit had a final ortho proc on ankle done and that is the "last resort "/final fix that ortho could do, The service has been recommending amputation but he has been refusing that since day 1 and still is, He is now undergoing hyperbaric O2 therapy, IV abx zosyn and wound vac and is recommended by ortho to cont same upon dc. CO managed with ID, Pt wishes to see a third ortho opinion outside and he is welcome to do so, One LTAC/Bed avail, we will dc him on MIdline IV zosyn wound vac and hyperbaric O2 tx Discharge Information Condition at Discharge: Improved, Stable Disposition/Orders: Other (SNU) Scheduled Aspirin (Aspirin), 1 TAB PO DAILY, (Reported) Atorvastatin Calcium (Lipitor), 20 MG PO QHS, (Reported) Celecoxib (Celebrex), 200 MG PO BID, (Reported) Cholecalciferol (Vitamin D3) (Vitamin D3), 1 TAB PO DAILY, (Reported) Citalopram Hydrobromide (Citalopram Hbr), 40 MG PO DAILY, (Reported) Clopidogrel Bisulfate (Plavix), 75 MG PO DAILY, (Reported) Docusate Sodium (Colace), 1 CAP PO DAILY, (Reported) Fentanyl (FENTANYL 75mcg/hr), 1 PATCH TP Q3DAYS, (Reported) Fentanyl (FENTANYL 50mcg/hr), 1 PATCH TP Q3DAYS Gabapentin (Gabapentin), 300 MG PO BID, (Reported) Insulin Aspart (Novolog), 15 UNIT SQ TIDAC, (Reported) Insulin Detemir (Levemir), 22 UNIT SQ HS, (Reported) Losartan Potassium (Losartan Potassium), 50 MG PO DAILY, (Reported) Metformin Hcl (Metformin Hcl), 500 MG PO BID, (Reported) Pantoprazole Sodium (Pantoprazole Sodium), 40 MG PO DAILY, (Reported) Xcujoscyblef-Dizu-Ckzzbafa,Iso (Zosyn 3.375 Gm Galaxy Bag), 3.375 GM IV Q6HRS, ( Reported) Tamsulosin Hcl (Flomax), 0.4 MG PO HS, (Reported) Tamsulosin Hcl (Tamsulosin Hcl), 1 CAP PO DAILY, (Reported) Scheduled PRN Hydrocodone Bit/Acetaminophen (Hydrocodone-Apap 7.5-325 ), 1 TAB PO PRN Q6HRS PRN for MODERATE PAIN MARINA GREGG MD May 05, 2017 09:33
--- NOTE | 2017-05-05 10:10 | PDOC ---
Infectious Disease Note Subjective Subjective Feeling ok Denies pain nonambulatory ,,, going for hyperbaric ROS ROS GEN: Denies fevers, chills, sweats HEENT: Denies blurred vision, sore throat CV: Denies chest pain RESP: Denies shortness of air, cough GI: Denies n/v/d NEURO: Denies confusion, dizziness MSK: Denies weakness, joint pain/swelling Vital Sign Vital Signs Vital Signs Date Time Temp Pulse Resp B/P (MAP) Pulse Ox O2 Delivery O2 Flow Rate FiO2 05/05/17 08:30 80 159/82 05/05/17 08:00 Room Air 05/05/17 07:00 97.7 20 95 1.0 97.7 Physical Exam PHYSICAL EXAM GENERAL: NAD, Alert HEENT: PERRL, OC/OP NECK: Supple, no JVD, no LN LUNGS: Clear HEART: S1S2, no gallop, no murmur ABD: Soft, NT, no organomegaly, no rebound EXT: No edema, no cyanosis,, wound vac not opened BILINGUAL OFFICE ASSISTANT: Alert, 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, no focal neurologic deficit SKIN: No rash IV: ok Labs Lab Laboratory Tests Test 05/04/17 16:50 05/04/17 20:57 05/05/17 04:15 05/05/17 07:26 Glucose (Fingerstick) 326 mg/dL (70-99) 277 mg/dL (70-99) 192 mg/dL (70-99) White Blood Count 8.4 x10^3/uL (4.0-11.0) Red Blood Count 2.93 x10^6/uL (4.30-5.70) Hemoglobin 9.2 g/dL (13.0-17.5) Hematocrit 27.3 % (39.0-53.0) Mean Corpuscular Volume 93 fL (79-100) Mean Corpuscular Hemoglobin 31 pg (25-35) Mean Corpuscular Hemoglobin Concent 34 g/dL (31-37) Red Cell Distribution Width 16.3 % (11.5-14.5) Platelet Count 149 x10^3/uL (140-400) Neutrophils (%) (Auto) 76 % (31-73) Lymphocytes (%) (Auto) 10 % (24-48) Monocytes (%) (Auto) 9 % (0-9) Eosinophils (%) (Auto) 5 % (0-3) Basophils (%) (Auto) 1 % (0-3) Neutrophils # (Auto) 6.4 x10^3uL (1.8-7.7) Lymphocytes # (Auto) 0.8 x10^3/uL (1.0-4.8) Monocytes # (Auto) 0.7 x10^3/uL (0.0-1.1) Eosinophils # (Auto) 0.4 x10^3/uL (0.0-0.7) Basophils # (Auto) 0.1 x10^3/uL (0.0-0.2) Sodium Level 141 mmol/L (136-145) Potassium Level 3.9 mmol/L (3.5-5.1) Chloride Level 103 mmol/L (98-107) Carbon Dioxide Level 30 mmol/L (21-32) Anion Gap 8 (6-14) Blood Urea Nitrogen 28 mg/dL (8-26) Creatinine 1.4 mg/dL (0.7-1.3) Estimated GFR (Cockcroft-Gault) 51.2 BUN/Creatinine Ratio 20 (6-20) Glucose Level 210 mg/dL (70-99) Calcium Level 9.3 mg/dL (8.5-10.1) Total Bilirubin 0.5 mg/dL (0.2-1.0) Aspartate Amino Transf (AST/SGOT) 14 U/L (15-37) Alanine Aminotransferase (ALT/SGPT) 22 U/L (16-63) Alkaline Phosphatase 93 U/L (46-116) Total Protein 7.0 g/dL (6.4-8.2) Albumin 2.7 g/dL (3.4-5.0) Albumin/Globulin Ratio 0.6 (1.0-1.7) Micro GRAM STAIN Final WBCS NONE SEEN RBCS MANY GRAM POSITIVE COCCI OCCASIONAL GRAM POSITIVE RODS OCCASIONAL Objective Assessment 1. Left ankle wound with infection and hardware in place. s/p I and D - -hx proteus, PSA, Enterococcus and MSSA 2. Right calcaneal wound. 3. Syncope, which may have been related to pain medication. back to baseline. 4. Diabetes. 5. History of cerebrovascular accident. 6. Hypertension. 7. Obesity. 8. Anemia Plan Plan of Care Cont Bradyn Probiotics Does not want amputation but needs an amputation F/u labs in am d/c home soon on iv zosyn, culture is not final, may need adjustment ROLANDO RUIZ MD May 05, 2017 10:09
[2017-05-05 11:00] VITALS: BP 156/64
[2017-05-05 14:57] VITALS: BP 131/77
[2017-05-05] MEDS: HYDROcodone/APAP 5/325MG 1 TAB TABLET PO PRN (15:50)
[2017-05-05] MEDS ORDERED: INSULIN DETEMIR 300 UNITS/3 ML INSULN.PEN. SQ ONE ×2 (17:15→21:00)
[2017-05-05] MEDS: INSULIN DETEMIR 300 UNITS/3 ML INSULN.PEN. SQ SCH (17:40)
[2017-05-05 19:22] VITALS: BP 150/75
[2017-05-05] MEDS: ALBUTEROL SULFATE 2.5 MG/3 ML NEBU. NEB PRN (19:30)
[2017-05-05] MEDS: ATORVASTATIN CALCIUM 20 MG TABLET PO SCH (22:01)
[2017-05-05 23:50] VITALS: BP 145/79
[2017-05-06] VITALS (7 sets, daily range): BP systolic 108–165; BP diastolic 63–97
[2017-05-06 05:37] LABS: BASO # 0.1 x10^3/uL (0.0-0.2); BASO % 1 % (0-3); EOS % 4 % (0-3); HEMATOCRIT 28.2 % (39.0-53.0); HEMOGLOBIN 9.6 g/dL (13.0-17.5); LYMPH # 0.7 x10^3/uL (1.0-4.8); LYMPH % 10 % (24-48); MEAN CORPUSCULAR HEMOGLOBIN 32 pg (25-35); MEAN CORPUSCULAR HGB CONC 34 g/dL (31-37); MEAN CORPUSCULAR VOLUME 93 fL (79-100); MONO % 9 % (0-9); NEUT % 77 % (31-73); PLATELET COUNT 157 x10^3/uL (140-400); RED BLOOD COUNT 3.03 x10^6/uL (4.30-5.70); RED CELL DISTRIBUTION WIDTH 16.1 % (11.5-14.5); WHITE BLOOD COUNT 7.7 x10^3/uL (4.0-11.0)
[2017-05-06 05:56] LABS: ALBUMIN 2.6 g/dL (3.4-5.0); ALBUMIN/GLOBULIN RATIO 0.5 (1.0-1.7); CALCIUM 9.7 mg/dL (8.5-10.1); CREATININE 1.1 mg/dL (0.7-1.3); GFR 67.6; POTASSIUM 3.9 mmol/L (3.5-5.1); TOTAL BILIRUBIN 0.4 mg/dL (0.2-1.0); TOTAL PROTEIN 7.4 g/dL (6.4-8.2)
[2017-05-06] MEDS: PIPERACILLIN/TAZO IV Push 3.375 GM VIAL. IVP SCH ×4 (06:12→19:34)
[2017-05-06] MEDS: ALBUTEROL SULFATE 2.5 MG/3 ML NEBU. NEB PRN (06:56)
[2017-05-06] MEDS: TAMSULOSIN 0.4 MG CAP.ER.24H. PO SCH ×2 (08:21→19:34)
[2017-05-06] MEDS: GABAPENTIN 300 MG CAPSULE. PO SCH ×2 (08:21→19:34)
[2017-05-06] MEDS: LACTOBACILLUS RHAMNOSUS GG 1 CAPSULE. PO SCH ×2 (08:22→19:34)
[2017-05-06] MEDS: DOCUSATE SODIUM 100 MG CAPSULE. PO SCH (08:22)
[2017-05-06] MEDS: CITALOPRAM 20 MG TABLET. PO SCH (08:22)
[2017-05-06] MEDS: PANTOPRAZOLE 40 MG TABLET.DR. PO SCH (08:22)
[2017-05-06] MEDS: metFORMIN 500 MG TABLET PO SCH ×2 (08:22→16:48)
[2017-05-06] MEDS: CHOLECALCIFEROL (VITAMIN D3) 1,000 UNIT TABLET PO SCH (08:23)
[2017-05-06] MEDS: LOSARTAN POTASSIUM 50 MG TABLET. PO SCH (08:23)
[2017-05-06] MEDS: fentaNYL 75MCG/HR PATCH 1 PATCH PATCH.TD72 TD SCH (08:24)
[2017-05-06] MEDS: INSULIN ASPART 300 UNITS/3 ML INSULN.PEN SQ SCH ×3 (08:35→16:53)
[2017-05-06] MEDS: INSULIN DETEMIR 300 UNITS/3 ML INSULN.PEN. SQ SCH (08:35)
--- NOTE | 2017-05-06 08:44 | PDOC ---
PROGRESS NOTES Chief Complaint Chief Complaint Syncope, backgrund of anemia, vaso vagal Cellulitis. legs s/p sx ortho - s.p external fixators removed past admit Indwelling leg wound vac - on hyperbaric O2 Obesity DM 2 uncontrolled HTN controlled CAD chronic stable Hx CVA no residuals Mod pCM History of Present Illness History of Present Illness Looks good VS good labs good Being screened for [facility] by MATI Will seek thrid opinoion at [facility] ortho Ortho aware PLAN: Will stay over holiday till SW comes back wednesday to see if accepted at [facility] in [facility] and could not manage alone with Insurance wont pay anymore for LTAC or SNU Vitals Vitals Vital Signs Date Time Temp Pulse Resp B/P (MAP) Pulse Ox O2 Delivery O2 Flow Rate FiO2 05/06/17 08:24 20 Room Air 05/06/17 08:23 83 160/97 05/06/17 07:00 98.1 93 98.1 05/05/17 17:03 1.0 Physical Exam General: Alert, Oriented X3, Cooperative, No acute distress Heart: Regular rate Lungs: Clear Abdomen: Normal bowel sounds, No tenderness Extremities: No cyanosis, Other (L ankle swollen. post heel wound with jay pus, medial and lateral wounds not well healing, with detritus, ?pus) Skin: No rashes Labs LABS Laboratory Tests Test 05/05/17 11:32 05/05/17 16:51 05/05/17 21:13 05/06/17 05:30 Glucose (Fingerstick) 275 mg/dL (70-99) 300 mg/dL (70-99) 275 mg/dL (70-99) White Blood Count 7.7 x10^3/uL (4.0-11.0) Red Blood Count 3.03 x10^6/uL (4.30-5.70) Hemoglobin 9.6 g/dL (13.0-17.5) Hematocrit 28.2 % (39.0-53.0) Mean Corpuscular Volume 93 fL (79-100) Mean Corpuscular Hemoglobin 32 pg (25-35) Mean Corpuscular Hemoglobin Concent 34 g/dL (31-37) Red Cell Distribution Width 16.1 % (11.5-14.5) Platelet Count 157 x10^3/uL (140-400) Neutrophils (%) (Auto) 77 % (31-73) Lymphocytes (%) (Auto) 10 % (24-48) Monocytes (%) (Auto) 9 % (0-9) Eosinophils (%) (Auto) 4 % (0-3) Basophils (%) (Auto) 1 % (0-3) Neutrophils # (Auto) 5.9 x10^3uL (1.8-7.7) Lymphocytes # (Auto) 0.7 x10^3/uL (1.0-4.8) Monocytes # (Auto) 0.7 x10^3/uL (0.0-1.1) Eosinophils # (Auto) 0.3 x10^3/uL (0.0-0.7) Basophils # (Auto) 0.1 x10^3/uL (0.0-0.2) Sodium Level 139 mmol/L (136-145) Potassium Level 3.9 mmol/L (3.5-5.1) Chloride Level 102 mmol/L (98-107) Carbon Dioxide Level 30 mmol/L (21-32) Anion Gap 7 (6-14) Blood Urea Nitrogen 33 mg/dL (8-26) Creatinine 1.1 mg/dL (0.7-1.3) Estimated GFR (Cockcroft-Gault) 67.6 BUN/Creatinine Ratio 30 (6-20) Glucose Level 269 mg/dL (70-99) Calcium Level 9.7 mg/dL (8.5-10.1) Total Bilirubin 0.4 mg/dL (0.2-1.0) Aspartate Amino Transf (AST/SGOT) 13 U/L (15-37) Alanine Aminotransferase (ALT/SGPT) 21 U/L (16-63) Alkaline Phosphatase 106 U/L (46-116) Total Protein 7.4 g/dL (6.4-8.2) Albumin 2.6 g/dL (3.4-5.0) Albumin/Globulin Ratio 0.5 (1.0-1.7) Test 05/06/17 07:09 Glucose (Fingerstick) 241 mg/dL (70-99) Review of Systems Review of Systems denies 14 pt reviewed Assessment and Plan Assessmemt and Plan Problems Medical Problems: (1) Anemia Status: Acute (2) Syncope Status: Acute Problems: Comment Review of Relevant I have reviewed the following items lauryn (where applicable) has been applied. Labs Laboratory Tests Test 05/04/17 16:50 05/04/17 20:57 05/05/17 04:15 05/05/17 07:26 Glucose (Fingerstick) 326 mg/dL (70-99) 277 mg/dL (70-99) 192 mg/dL (70-99) White Blood Count 8.4 x10^3/uL (4.0-11.0) Red Blood Count 2.93 x10^6/uL (4.30-5.70) Hemoglobin 9.2 g/dL (13.0-17.5) Hematocrit 27.3 % (39.0-53.0) Mean Corpuscular Volume 93 fL (79-100) Mean Corpuscular Hemoglobin 31 pg (25-35) Mean Corpuscular Hemoglobin Concent 34 g/dL (31-37) Red Cell Distribution Width 16.3 % (11.5-14.5) Platelet Count 149 x10^3/uL (140-400) Neutrophils (%) (Auto) 76 % (31-73) Lymphocytes (%) (Auto) 10 % (24-48) Monocytes (%) (Auto) 9 % (0-9) Eosinophils (%) (Auto) 5 % (0-3) Basophils (%) (Auto) 1 % (0-3) Neutrophils # (Auto) 6.4 x10^3uL (1.8-7.7) Lymphocytes # (Auto) 0.8 x10^3/uL (1.0-4.8) Monocytes # (Auto) 0.7 x10^3/uL (0.0-1.1) Eosinophils # (Auto) 0.4 x10^3/uL (0.0-0.7) Basophils # (Auto) 0.1 x10^3/uL (0.0-0.2) Sodium Level 141 mmol/L (136-145) Potassium Level 3.9 mmol/L (3.5-5.1) Chloride Level 103 mmol/L (98-107) Carbon Dioxide Level 30 mmol/L (21-32) Anion Gap 8 (6-14) Blood Urea Nitrogen 28 mg/dL (8-26) Creatinine 1.4 mg/dL (0.7-1.3) Estimated GFR (Cockcroft-Gault) 51.2 BUN/Creatinine Ratio 20 (6-20) Glucose Level 210 mg/dL (70-99) Calcium Level 9.3 mg/dL (8.5-10.1) Total Bilirubin 0.5 mg/dL (0.2-1.0) Aspartate Amino Transf (AST/SGOT) 14 U/L (15-37) Alanine Aminotransferase (ALT/SGPT) 22 U/L (16-63) Alkaline Phosphatase 93 U/L (46-116) Total Protein 7.0 g/dL (6.4-8.2) Albumin 2.7 g/dL (3.4-5.0) Albumin/Globulin Ratio 0.6 (1.0-1.7) Test 05/05/17 11:32 05/05/17 16:51 05/05/17 21:13 05/06/17 05:30 Glucose (Fingerstick) 275 mg/dL (70-99) 300 mg/dL (70-99) 275 mg/dL (70-99) White Blood Count 7.7 x10^3/uL (4.0-11.0) Red Blood Count 3.03 x10^6/uL (4.30-5.70) Hemoglobin 9.6 g/dL (13.0-17.5) Hematocrit 28.2 % (39.0-53.0) Mean Corpuscular Volume 93 fL (79-100) Mean Corpuscular Hemoglobin 32 pg (25-35) Mean Corpuscular Hemoglobin Concent 34 g/dL (31-37) Red Cell Distribution Width 16.1 % (11.5-14.5) Platelet Count 157 x10^3/uL (140-400) Neutrophils (%) (Auto) 77 % (31-73) Lymphocytes (%) (Auto) 10 % (24-48) Monocytes (%) (Auto) 9 % (0-9) Eosinophils (%) (Auto) 4 % (0-3) Basophils (%) (Auto) 1 % (0-3) Neutrophils # (Auto) 5.9 x10^3uL (1.8-7.7) Lymphocytes # (Auto) 0.7 x10^3/uL (1.0-4.8) Monocytes # (Auto) 0.7 x10^3/uL (0.0-1.1) Eosinophils # (Auto) 0.3 x10^3/uL (0.0-0.7) Basophils # (Auto) 0.1 x10^3/uL (0.0-0.2) Sodium Level 139 mmol/L (136-145) Potassium Level 3.9 mmol/L (3.5-5.1) Chloride Level 102 mmol/L (98-107) Carbon Dioxide Level 30 mmol/L (21-32) Anion Gap 7 (6-14) Blood Urea Nitrogen 33 mg/dL (8-26) Creatinine 1.1 mg/dL (0.7-1.3) Estimated GFR (Cockcroft-Gault) 67.6 BUN/Creatinine Ratio 30 (6-20) Glucose Level 269 mg/dL (70-99) Calcium Level 9.7 mg/dL (8.5-10.1) Total Bilirubin 0.4 mg/dL (0.2-1.0) Aspartate Amino Transf (AST/SGOT) 13 U/L (15-37) Alanine Aminotransferase (ALT/SGPT) 21 U/L (16-63) Alkaline Phosphatase 106 U/L (46-116) Total Protein 7.4 g/dL (6.4-8.2) Albumin 2.6 g/dL (3.4-5.0) Albumin/Globulin Ratio 0.5 (1.0-1.7) Test 05/06/17 07:09 Glucose (Fingerstick) 241 mg/dL (70-99) Laboratory Tests Test 05/05/17 11:32 05/05/17 16:51 05/05/17 21:13 05/06/17 05:30 Glucose (Fingerstick) 275 mg/dL (70-99) 300 mg/dL (70-99) 275 mg/dL (70-99) White Blood Count 7.7 x10^3/uL (4.0-11.0) Red Blood Count 3.03 x10^6/uL (4.30-5.70) Hemoglobin 9.6 g/dL (13.0-17.5) Hematocrit 28.2 % (39.0-53.0) Mean Corpuscular Volume 93 fL (79-100) Mean Corpuscular Hemoglobin 32 pg (25-35) Mean Corpuscular Hemoglobin Concent 34 g/dL (31-37) Red Cell Distribution Width 16.1 % (11.5-14.5) Platelet Count 157 x10^3/uL (140-400) Neutrophils (%) (Auto) 77 % (31-73) Lymphocytes (%) (Auto) 10 % (24-48) Monocytes (%) (Auto) 9 % (0-9) Eosinophils (%) (Auto) 4 % (0-3) Basophils (%) (Auto) 1 % (0-3) Neutrophils # (Auto) 5.9 x10^3uL (1.8-7.7) Lymphocytes # (Auto) 0.7 x10^3/uL (1.0-4.8) Monocytes # (Auto) 0.7 x10^3/uL (0.0-1.1) Eosinophils # (Auto) 0.3 x10^3/uL (0.0-0.7) Basophils # (Auto) 0.1 x10^3/uL (0.0-0.2) Sodium Level 139 mmol/L (136-145) Potassium Level 3.9 mmol/L (3.5-5.1) Chloride Level 102 mmol/L (98-107) Carbon Dioxide Level 30 mmol/L (21-32) Anion Gap 7 (6-14) Blood Urea Nitrogen 33 mg/dL (8-26) Creatinine 1.1 mg/dL (0.7-1.3) Estimated GFR (Cockcroft-Gault) 67.6 BUN/Creatinine Ratio 30 (6-20) Glucose Level 269 mg/dL (70-99) Calcium Level 9.7 mg/dL (8.5-10.1) Total Bilirubin 0.4 mg/dL (0.2-1.0) Aspartate Amino Transf (AST/SGOT) 13 U/L (15-37) Alanine Aminotransferase (ALT/SGPT) 21 U/L (16-63) Alkaline Phosphatase 106 U/L (46-116) Total Protein 7.4 g/dL (6.4-8.2) Albumin 2.6 g/dL (3.4-5.0) Albumin/Globulin Ratio 0.5 (1.0-1.7) Test 05/06/17 07:09 Glucose (Fingerstick) 241 mg/dL (70-99) Microbiology 05/03/17 Anaerobic/Aerobic Culture, Resulted Pending 05/03/17 Anaerobic Culture Result 1 (LIONEL), Resulted Pending 05/03/17 Aerobic Culture - Preliminary, Resulted 05/03/17 Aerobic Culture Result 1 (LIONEL) - Preliminary, Resulted 05/03/17 Aerobic Culture Result 2 (LIONEL) - Preliminary, Resulted Medications Current Medications Sodium Chloride 1,000 ml @ 999 mls/hr Q1H1M IV Last administered on 00:02; Start 04/29/17 at 15:28; Stop 04/30/17 at 02:42; Status DC Aspirin (Omkar Aspirin) 325 mg DAILY PO Last administered on 05/01/17 08:32; Start 04/30/17 at 09:00; Stop 05/03/17 at 08:39; Status DC Atorvastatin Calcium (Lipitor) 20 mg QHS PO Last administered on 05/05/17 22: 01; Start 04/29/17 at 21:00 Celecoxib (CeleBREX) 200 mg BID PO Last administered on 05/02/17 21:27; Start 04/29/17 at 21:00; Stop 05/03/17 at 08:39; Status DC Vitamin D (Vitamin D3) 1,000 unit DAILY PO Last administered on 05/06/17 08: 23; Start 04/30/17 at 09:00 Clopidogrel Bisulfate (Plavix) 75 mg DAILY PO Last administered on 05/01/17 08:33; Start 04/30/17 at 09:00; Stop 05/02/17 at 12:02; Status DC Docusate Sodium (Colace) 100 mg DAILY PO Last administered on 05/06/17 08:22 ; Start 04/30/17 at 09:00 Fentanyl (Duragesic 75mcg/ Hr Patch) 1 patch Q3DAYS TD Last administered on 08:24; Start 04/30/17 at 09:00 Acetaminophen/ Hydrocodone Bitart (Lortab 7.5/325) 1 tab PRN Q6HRS PRN PO MODERATE PAIN Last administered on 04/29/17 21:25; Start 04/29/17 at 18:00; Stop 04/29/17 at 22:47; Status DC Losartan Potassium (Cozaar) 50 mg DAILY PO ; Start 04/30/17 at 09:00; Stop at 09:00; Status DC Metformin HCl (Glucophage) 500 mg BIDWMEALS PO Last administered on 05/06/17 08:22; Start 04/30/17 at 08:00 Pantoprazole Sodium (Protonix) 40 mg DAILYAC PO Last administered on 08:22; Start 04/30/17 at 07:30 Piperacillin/ Tazobactam/ Dextrose (Zosyn 3.375gm Premix) 3.375 gm Q6HRS IV ; Start 04/30/17 at 00:00; Status Cancel Tamsulosin HCl (Flomax) 0.4 mg BID PO Last administered on 05/06/17 08:21; Start 04/29/17 at 21:00 Tamsulosin HCl (Flomax) 0.4 mg HS PO ; Start 04/29/17 at 21:00; Status UNV Citalopram Hydrobromide (CeleXA) 40 mg DAILY PO Last administered on 08:22; Start 04/30/17 at 09:00 Gabapentin (Neurontin) 300 mg BID PO Last administered on 05/06/17 08:21; Start 04/29/17 at 21:00 Insulin Aspart (NovoLOG) 15 units TIDAC SQ Last administered on 05/05/17 12: 08; Start 04/30/17 at 07:30; Stop 05/05/17 at 17:16; Status DC Insulin Detemir (Levemir) 22 units QHS SQ Last administered on 04/29/17 21:26 ; Start 04/29/17 at 21:00; Stop 04/30/17 at 08:32; Status DC Labetalol HCl (Normodyne) 20 mg Q2HR PRN IVP hypertension; Start 04/29/17 at 18:00 Piperacillin Sod/ Tazobactam Sod 4.5 gm/Dextrose 100 ml @ 200 mls/hr 1X ONCE IV ; Start 04/29/17 at 18:15; Stop 04/29/17 at 18:44; Status UNV Piperacillin Sod/ Tazobactam Sod (Zosyn) 4.5 gm 1X ONCE IVP Last administered on 04/29/17 18:57; Start 04/29/17 at 18:30; Stop 04/29/17 at 18:31; Status DC Piperacillin Sod/ Tazobactam Sod (Zosyn) 3.375 gm Q6HRS IVP Last administered on 05/06/17 06:12; Start 04/30/17 at 00:00 Hydromorphone HCl (Dilaudid) 1 mg 1X ONCE IV Last administered on 04/29/17 22:55; Start 04/29/17 at 22:45; Stop 04/29/17 at 22:46; Status DC Acetaminophen/ Hydrocodone Bitart (Lortab 7.5/325) 2 tab PRN Q6HRS PRN PO MODERATE PAIN Last administered on 05/01/17 20:30; Start 04/29/17 at 23:00 Hydromorphone HCl (Dilaudid) 1 mg PRN Q4HRS PRN IVP PAIN; Start 04/29/17 at 23 :00; Stop 04/30/17 at 08:32; Status DC Insulin Detemir (Levemir) 25 units DAILY08 SQ Last administered on 05/01/17 08:39; Start 04/30/17 at 09:00; Stop 05/01/17 at 17:01; Status DC Losartan Potassium (Cozaar) 100 mg DAILY PO Last administered on 05/06/17 08: 23; Start 04/30/17 at 09:00 Lactobacillus Rhamnosus (Culturelle) 1 cap BID PO Last administered on 08:22; Start 05/01/17 at 21:00 Insulin Detemir (Levemir) 35 units DAILY08 SQ Last administered on 05/02/17 08:08; Start 05/02/17 at 08:00; Stop 05/02/17 at 11:55; Status DC Insulin Aspart (NovoLOG) 18 units 1X ONCE SQ Last administered on 05/01/17 22:46; Start 05/01/17 at 22:45; Stop 05/01/17 at 22:46; Status DC Albuterol Sulfate (Ventolin Neb Soln) 2.5 mg PRN Q4HRS PRN NEB SHORTNESS OF BREATH Last administered on 05/06/17 06:56; Start 05/02/17 at 10:00 Insulin Detemir (Levemir) 45 units DAILY08 SQ Last administered on 05/06/17 08:35; Start 05/02/17 at 13:00 Acetaminophen/ Hydrocodone Bitart (Lortab 5/325) 1 tab PRN Q4HRS PRN PO PAIN Last administered on 05/05/17 15:50; Start 05/03/17 at 08:45 Insulin Aspart (NovoLOG) 3 units 1X ONCE SQ Last administered on 05/03/17 09 :09; Start 05/03/17 at 09:15; Stop 05/03/17 at 09:16; Status DC Fentanyl Citrate (Fentanyl 2ml Vial) 100 mcg STK-MED ONCE .ROUTE ; Start at 14:55; Stop 05/03/17 at 14:56; Status DC Midazolam HCl (Versed) 2 mg STK-MED ONCE .ROUTE ; Start 05/03/17 at 14:55; Stop 05/03/17 at 14:56; Status DC Propofol 20 ml @ As Directed STK-MED ONCE IV ; Start 05/03/17 at 15:18; Stop 05/03/17 at 15:19; Status DC Dexamethasone Sodium Phosphate (Decadron) 20 mg STK-MED ONCE .ROUTE ; Start at 15:18; Stop 05/03/17 at 15:19; Status DC Famotidine (Pepcid Vial) 20 mg STK-MED ONCE .ROUTE ; Start 05/03/17 at 15:18; Stop 05/03/17 at 15:19; Status DC Lidocaine HCl (Lidocaine Pf 2% Vial) 5 ml STK-MED ONCE .ROUTE ; Start 05/03/17 at 15:18; Stop 05/03/17 at 15:19; Status DC Ondansetron HCl (Zofran) 4 mg STK-MED ONCE .ROUTE ; Start 05/03/17 at 15:18; Stop 05/03/17 at 15:19; Status DC Phenylephrine HCl 1 mg STK-MED ONCE IV ; Start 05/03/17 at 15:41; Stop at 15:42; Status DC Ephedrine Sulfate (Akovaz) 50 mg STK-MED ONCE .ROUTE ; Start 05/03/17 at 15:53 ; Stop 05/03/17 at 15:54; Status DC Sevoflurane (Ultane) 30 ml STK-MED ONCE IH ; Start 05/03/17 at 16:02; Stop at 16:03; Status DC Insulin Aspart (NovoLOG VIAL) 3 unit 1X PACU PRN SQ SEE COMMENTS Last administered on 05/03/17 16:59; Start 05/03/17 at 16:45; Stop 05/05/17 at 15 :17; Status DC Midazolam HCl (Versed) 2 mg PRN 1X PRN IV PRIOR TO PROCEDURE; Start 05/03/17 at 18:30; Stop 05/04/17 at 06:00; Status DC Sodium Chloride 1,000 ml @ 125 mls/hr Q8H IV Last administered on 05/04/17 02:16; Start 05/03/17 at 18:30; Stop 05/04/17 at 06:00; Status DC Lidocaine HCl (Xylocaine-Mpf 1% Vial) 2 ml 1X PRN PRN ID IV START; Start 05/03 at 18:30; Stop 05/04/17 at 06:00; Status DC Insulin Detemir (Levemir) 20 units QHS SQ Last administered on 05/04/17 21:04 ; Start 05/04/17 at 21:00; Stop 05/06/17 at 08:02; Status DC Insulin Aspart (NovoLOG) 20 units TIDAC SQ Last administered on 05/06/17 08: 35; Start 05/05/17 at 17:15 Insulin Detemir (Levemir) 30 units 1X ONCE SQ ; Start 05/05/17 at 17:15; Stop 05/05/17 at 17:40; Status DC Insulin Detemir (Levemir) 30 units 1X ONCE SQ Last administered on 05/05/17 22:04; Start 05/05/17 at 21:00; Stop 05/05/17 at 21:01; Status DC Insulin Detemir (Levemir) 25 units QHS SQ ; Start 05/06/17 at 21:00 Active Scripts Active Hydrocodone-Apap 7.5-325 (Hydrocodone Bit/Acetaminophen) 1 Each Tablet 1 Tab PO PRN Q6HRS PRN FENTANYL 50mcg/hr (Fentanyl) 1 Each Patch.td72 1 Patch TP Q3DAYS Reported Tamsulosin Hcl 0.4 Mg Cap.er.24h 1 Cap PO DAILY Zosyn 3.375 Gm Galaxy Bag (Zgrogcqsnpwm-Dusz-Wpnjdltw,Iso) 3.375 Gm/50 Ml Froz.piggy 3.375 Gm IV Q6HRS Novolog (Insulin Aspart) 100 Unit/1 Ml Cartridge 15 Unit SQ TIDAC Pantoprazole Sodium 40 Mg Tablet.dr 40 Mg PO DAILY Levemir (Insulin Detemir) 100 Unit/1 Ml Vial 22 Unit SQ HS FENTANYL 75mcg/hr (Fentanyl) 1 Each Patch.td72 1 Patch TP Q3DAYS Colace (Docusate Sodium) 100 Mg Capsule 1 Cap PO DAILY Aspirin 325 Mg Tablet 1 Tab PO DAILY Vitamin D3 (Cholecalciferol (Vitamin D3)) 1,000 Unit Tablet 1 Tab PO DAILY Losartan Potassium 50 Mg Tablet 50 Mg PO DAILY Gabapentin 300 Mg Capsule 300 Mg PO BID Celebrex (Celecoxib) 200 Mg Capsule 200 Mg PO BID 30 Days Citalopram Hbr (Citalopram Hydrobromide) 40 Mg Tablet 40 Mg PO DAILY Lipitor (Atorvastatin Calcium) 20 Mg Tablet 20 Mg PO QHS Flomax (Tamsulosin Hcl) 0.4 Mg Cap.er.24h 0.4 Mg PO HS Metformin Hcl 500 Mg Tablet 500 Mg PO BID Plavix (Clopidogrel Bisulfate) 75 Mg Tablet 75 Mg PO DAILY Vitals/I & O Vital Sign - Last 24 Hours 05/05/17 05/05/17 05/05/17 05/05/17 11:00 12:05 14:57 15:50 Temp 97.5 97.7 97.5 97.7 Pulse 78 74 Resp 20 20 B/P (MAP) 156/64 (94) 131/77 (95) Pulse Ox 90 98 95 95 O2 Delivery Room Air Room Air Room Air Room Air O2 Flow Rate 1.0 05/05/17 05/05/17 05/05/17 05/05/17 17:03 19:22 19:32 19:46 Temp 98.1 98.1 Pulse 79 Resp 18 B/P (MAP) 150/75 (100) Pulse Ox 95 95 98 O2 Delivery Room Air Room Air Room Air Room Air O2 Flow Rate 1.0 05/05/17 05/06/17 05/06/17 05/06/17 23:50 03:59 06:58 07:00 Temp 98.0 98.2 98.1 98.0 98.2 98.1 Pulse 81 89 83 Resp 18 18 20 B/P (MAP) 145/79 (101) 139/70 (93) 160/97 (118) Pulse Ox 95 90 98 93 O2 Delivery Room Air Room Air Room Air Room Air 05/06/17 05/06/17 08:23 08:24 Pulse 83 Resp 20 B/P (MAP) 160/97 O2 Delivery Room Air Intake and Output 05/05/17 05/05/17 05/06/17 15:00 23:00 07:00 Intake Total 0 ml Output Total 350 ml 200 ml Balance -350 ml -200 ml MARINA GREGG MD May 06, 2017 08:44
--- NOTE | 2017-05-06 09:12 | PDOC ---
Infectious Disease Note Subjective Subjective Feeling ok Denies pain nonambulatory ,,, ROS ROS GEN: Denies fevers, chills, sweats HEENT: Denies blurred vision, sore throat CV: Denies chest pain RESP: Denies shortness of air, cough GI: Denies n/v/d NEURO: Denies confusion, dizziness Vital Sign Vital Signs Vital Signs Date Time Temp Pulse Resp B/P (MAP) Pulse Ox O2 Delivery O2 Flow Rate FiO2 05/06/17 08:24 20 Room Air 05/06/17 08:23 83 160/97 05/06/17 07:00 98.1 93 98.1 05/05/17 17:03 1.0 Physical Exam PHYSICAL EXAM GENERAL: NAD, Alert HEENT: PERRL, OC/OP NECK: Supple, no JVD, no LN LUNGS: Clear HEART: S1S2, no gallop, no murmur ABD: Soft, NT, no organomegaly, no rebound EXT: No edema, no cyanosis,, left foot dressing not opened RUBBER TESTER: Alert, 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, no focal neurologic deficit SKIN: No rash IV: ok Labs Lab Laboratory Tests Test 05/05/17 11:32 05/05/17 16:51 05/05/17 21:13 05/06/17 05:30 Glucose (Fingerstick) 275 mg/dL (70-99) 300 mg/dL (70-99) 275 mg/dL (70-99) White Blood Count 7.7 x10^3/uL (4.0-11.0) Red Blood Count 3.03 x10^6/uL (4.30-5.70) Hemoglobin 9.6 g/dL (13.0-17.5) Hematocrit 28.2 % (39.0-53.0) Mean Corpuscular Volume 93 fL (79-100) Mean Corpuscular Hemoglobin 32 pg (25-35) Mean Corpuscular Hemoglobin Concent 34 g/dL (31-37) Red Cell Distribution Width 16.1 % (11.5-14.5) Platelet Count 157 x10^3/uL (140-400) Neutrophils (%) (Auto) 77 % (31-73) Lymphocytes (%) (Auto) 10 % (24-48) Monocytes (%) (Auto) 9 % (0-9) Eosinophils (%) (Auto) 4 % (0-3) Basophils (%) (Auto) 1 % (0-3) Neutrophils # (Auto) 5.9 x10^3uL (1.8-7.7) Lymphocytes # (Auto) 0.7 x10^3/uL (1.0-4.8) Monocytes # (Auto) 0.7 x10^3/uL (0.0-1.1) Eosinophils # (Auto) 0.3 x10^3/uL (0.0-0.7) Basophils # (Auto) 0.1 x10^3/uL (0.0-0.2) Sodium Level 139 mmol/L (136-145) Potassium Level 3.9 mmol/L (3.5-5.1) Chloride Level 102 mmol/L (98-107) Carbon Dioxide Level 30 mmol/L (21-32) Anion Gap 7 (6-14) Blood Urea Nitrogen 33 mg/dL (8-26) Creatinine 1.1 mg/dL (0.7-1.3) Estimated GFR (Cockcroft-Gault) 67.6 BUN/Creatinine Ratio 30 (6-20) Glucose Level 269 mg/dL (70-99) Calcium Level 9.7 mg/dL (8.5-10.1) Total Bilirubin 0.4 mg/dL (0.2-1.0) Aspartate Amino Transf (AST/SGOT) 13 U/L (15-37) Alanine Aminotransferase (ALT/SGPT) 21 U/L (16-63) Alkaline Phosphatase 106 U/L (46-116) Total Protein 7.4 g/dL (6.4-8.2) Albumin 2.6 g/dL (3.4-5.0) Albumin/Globulin Ratio 0.5 (1.0-1.7) Test 05/06/17 07:09 Glucose (Fingerstick) 241 mg/dL (70-99) Micro GRAM STAIN Final WBCS NONE SEEN RBCS MANY GRAM POSITIVE COCCI OCCASIONAL GRAM POSITIVE RODS OCCASIONAL ANAEROBIC-AEROBIC CULTURE PENDING ANAEROBIC RES 1 PENDING AEROBIC CULT Preliminary Preliminary report AEROBIC RES 1 Preliminary Staphylococcus aureus Light growth AEROBIC RES 2 Preliminary Mixed skin renato Moderate growth Performed at: [facility] [address] [place], [place] [id number] Stove Fitter: Shellie Gibbs MD, Phone: [phone] Objective Assessment 1. Left ankle wound with infection and hardware in place. s/p I and D - -hx proteus, PSA, Enterococcus and MSSA 2. Right calcaneal wound. 3. Syncope, which may have been related to pain medication. back to baseline. 4. Diabetes. 5. History of cerebrovascular accident. 6. Hypertension. 7. Obesity. 8. Anemia Plan Plan of Care Cont [place] Probiotics Does not want amputation but needs an amputation F/u labs in ROLANDO RUIZ MD May 06, 2017 09:12
[2017-05-06] MEDS: ATORVASTATIN CALCIUM 20 MG TABLET PO SCH (19:34)
[2017-05-06] MEDS ORDERED: INSULIN DETEMIR 300 UNITS/3 ML INSULN.PEN. SQ SCH (21:00)
[2017-05-07 03:09] VITALS: BP_SYST 124; BP_SYST 148; BP_DIAS 81; BP_DIAS 85
[2017-05-07] MEDS: PIPERACILLIN/TAZO IV Push 3.375 GM VIAL. IVP SCH ×3 (05:29→18:01)
[2017-05-07 07:00] VITALS: BP 161/98
[2017-05-07] MEDS: CHOLECALCIFEROL (VITAMIN D3) 1,000 UNIT TABLET PO SCH (07:56)
[2017-05-07] MEDS: CITALOPRAM 20 MG TABLET. PO SCH (07:57)
[2017-05-07] MEDS: DOCUSATE SODIUM 100 MG CAPSULE. PO SCH (07:57)
[2017-05-07] MEDS: TAMSULOSIN 0.4 MG CAP.ER.24H. PO SCH ×2 (07:57→20:49)
[2017-05-07] MEDS: GABAPENTIN 300 MG CAPSULE. PO SCH ×2 (07:57→20:49)
[2017-05-07] MEDS: LACTOBACILLUS RHAMNOSUS GG 1 CAPSULE. PO SCH ×2 (07:57→20:49)
[2017-05-07] MEDS: PANTOPRAZOLE 40 MG TABLET.DR. PO SCH (07:58)
[2017-05-07] MEDS: LOSARTAN POTASSIUM 50 MG TABLET. PO SCH (08:00)
[2017-05-07] MEDS: metFORMIN 500 MG TABLET PO SCH ×2 (08:01→17:03)
[2017-05-07] MEDS: INSULIN ASPART 300 UNITS/3 ML INSULN.PEN SQ SCH ×3 (08:06→17:06)
[2017-05-07] MEDS: INSULIN DETEMIR 300 UNITS/3 ML INSULN.PEN. SQ SCH ×2 (08:07→20:53)
--- NOTE | 2017-05-07 10:58 | PDOC ---
HBO-PROGRESS NOTE CHIEF COMPLAIN/HPI: TYPE OF WOUND: Ulcer (patient presents for hyperbaric therapy #17 of an anticipated initial 20 treatment regimen under protocol for diabetic ulcer of the lower extremity. He is effectively offloaded, blood glucose is adequately controlled, protein supplementation is been recommended, drainage is managed and he continues on culture directed IV antibiotic therapy. 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 ) Location of Modifier: Left WOUND LOCATION: Foot ASSOCIATED SIGNS/SYMPTOMS: ASSOCIATED SIGNS/SYMTPTOMS: Increased wound drainage, Edema/swelling PAST MEDICAL HISTORY: PAST MEDICAL HISTORY: Diabetes PRE-HBO SYMPTOMS: PRE-HBO SYMPTOMS: None LEFT EAR TEEDS: 0 RIGHT EAR TEEDS: 0 PROCEDURE: PROCEDURE: Diabetic Ulcer Lower Ext EPIFANIO: 2.0 PreTreatment Checklist Complet: Yes LS: 1015 AP: 1023 ABT: 90 LP: 1153 : 1201 Air Breaks: None Scheduled Compression Tolerated: Yes Decompression Tolerated: Yes Total Minutes: 106 Total Treatment Time (1st desc: 106 POST HBO SIGNS/SYMPTOMS: POST-HBO SIGNS/SYMPTOMS: None STATEMENT OF ATTENDANCE: Statement: I have provided supervision throughout the entire treatment including compression and decompression. ASSESSMENT: Vital Signs: Vital Signs Date Time Temp Pulse Resp B/P (MAP) Pulse Ox O2 Delivery O2 Flow Rate FiO2 05/06/17 07:00 98.1 83 20 160/97 (118) 93 Room Air 98.1 Vital Signs Date Time Temp Pulse Resp B/P (MAP) Pulse Ox O2 Delivery O2 Flow Rate FiO2 05/07/17 10:39 18 05/07/17 08:00 88 161/98 05/07/17 08:00 Room Air 05/07/17 07:00 98.4 98 98.4 BG#1: 231 Time: 09:00 BG#2: 231 Time: 11:27 PLAN: Protocol: Diabetic ulcer of the lower extremity. This is a Arias 3 with bone necrosis. Total Tx Provided: 17 Total Tx Ordered: An initial 20 minute regimen MANAGMENT OF COMPLICATIONS: Off-loading ONGOING PLAN: Continue protocol PROBLEMS: Problems: (1) Non-pressure chronic ulcer of left heel and midfoot with necrosis of bone (2) Type 2 diabetes mellitus with foot ulcer AYLIN CHRISTENSEN DO May 07, 2017 10:58
--- NOTE | 2017-05-07 11:12 | PDOC ---
PROGRESS NOTES Chief Complaint Chief Complaint Syncope Cellulitis ASSESSMENT AND PLAN: 1. L LE cellulitis: cont zosyn as per ID service 2. L LE fx: external hardware removed 2 weeks ago, internal hardware removal and debridement on 05/04. bone nonhealing (fx in December). wound vac, hyperbaric O2 as per wound care team. amputation recommended, pt not agreeable 3. Anemia: chronic, did receive PRBC x 3 prior to surgery. 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 now stable. 4. Syncope POA: poss vasovagal or related to anemia. no obvious cardiac source. 5. HTN: well controlled with med adjustment 6. DM2: poorly controlled (chronic). insulin resistant; now on bid levemir dosing, increase dose 7. CAD: no acute issues. cont 2ary prevention meds 8. Hx CVA 9. Hx severe BRYCE with HD requirement: mild BRYCE at admit, prob vasomotor. monitor with IVF, PO fluids 10. morbid obesity, BMI 46. w/ moderately severe malnutrition, serum albumin 2.8. dietary teaching 11. Dyspnea: not hypoxic. prob obesity driven hypoventilation Dispo: [facility] in [facility] if accepted History of Present Illness History of Present Illness occas sharp shooting pain in R heel, otherwise fine Vitals Vitals Vital Signs Date Time Temp Pulse Resp B/P (MAP) Pulse Ox O2 Delivery O2 Flow Rate FiO2 05/07/17 10:39 18 05/07/17 08:00 88 161/98 05/07/17 08:00 Room Air 05/07/17 07:00 98.4 98 98.4 Physical Exam General: Alert, Oriented X3, Cooperative, No acute distress Heart: Regular rate Lungs: Clear Abdomen: Normal bowel sounds, No tenderness Extremities: No cyanosis, Other (L ankle swollen. post heel wound with jay pus, medial and lateral wounds not well healing, with detritus, ?pus) Skin: No rashes Labs LABS Laboratory Tests Test 05/06/17 16:02 05/06/17 19:36 05/07/17 07:17 Glucose (Fingerstick) 274 mg/dL (70-99) 317 mg/dL (70-99) 169 mg/dL (70-99) NEVIN LONG MD May 07, 2017 11:12
[2017-05-07 13:49] VITALS: BP 132/69
[2017-05-07 15:00] VITALS: BP 124/79
[2017-05-07 19:00] VITALS: BP 134/84
[2017-05-07] MEDS: ATORVASTATIN CALCIUM 20 MG TABLET PO SCH (20:49)
[2017-05-07 23:00] VITALS: BP 151/80
[2017-05-08] MEDS: PIPERACILLIN/TAZO IV Push 3.375 GM VIAL. IVP SCH ×4 (00:34→17:59)
[2017-05-08 02:49] VITALS: BP 154/84
[2017-05-08 05:01] LABS: BASO # 0.1 x10^3/uL (0.0-0.2); BASO % 1 % (0-3); EOS % 3 % (0-3); HEMATOCRIT 27.3 % (39.0-53.0); HEMOGLOBIN 9.2 g/dL (13.0-17.5); LYMPH % 10 % (24-48); MEAN CORPUSCULAR HEMOGLOBIN 31 pg (25-35); MEAN CORPUSCULAR HGB CONC 34 g/dL (31-37); MEAN CORPUSCULAR VOLUME 92 fL (79-100); MONO % 9 % (0-9); NEUT % 77 % (31-73); PLATELET COUNT 164 x10^3/uL (140-400); RED BLOOD COUNT 2.96 x10^6/uL (4.30-5.70); RED CELL DISTRIBUTION WIDTH 16.1 % (11.5-14.5); WHITE BLOOD COUNT 9.5 x10^3/uL (4.0-11.0)
[2017-05-08 05:26] LABS: CALCIUM 9.7 mg/dL (8.5-10.1); CREATININE 1.1 mg/dL (0.7-1.3); GFR 67.6; POTASSIUM 3.9 mmol/L (3.5-5.1)
[2017-05-08 07:00] VITALS: BP 161/89
[2017-05-08] MEDS: PANTOPRAZOLE 40 MG TABLET.DR. PO SCH (08:00)
[2017-05-08] MEDS: CHOLECALCIFEROL (VITAMIN D3) 1,000 UNIT TABLET PO SCH (08:00)
[2017-05-08] MEDS: CITALOPRAM 20 MG TABLET. PO SCH (08:01)
[2017-05-08] MEDS: DOCUSATE SODIUM 100 MG CAPSULE. PO SCH (08:01)
[2017-05-08] MEDS: LACTOBACILLUS RHAMNOSUS GG 1 CAPSULE. PO SCH ×2 (08:01→20:36)
[2017-05-08] MEDS: metFORMIN 500 MG TABLET PO SCH ×2 (08:01→17:01)
[2017-05-08] MEDS: TAMSULOSIN 0.4 MG CAP.ER.24H. PO SCH ×2 (08:01→20:36)
[2017-05-08] MEDS: GABAPENTIN 300 MG CAPSULE. PO SCH ×2 (08:01→20:36)
[2017-05-08] MEDS: LOSARTAN POTASSIUM 50 MG TABLET. PO SCH (08:01)
[2017-05-08] MEDS: INSULIN ASPART 300 UNITS/3 ML INSULN.PEN SQ SCH ×3 (08:11→17:07)
[2017-05-08] MEDS: INSULIN DETEMIR 300 UNITS/3 ML INSULN.PEN. SQ SCH ×2 (08:12→20:40)
[2017-05-08] MEDS: amLODIPine BESYLATE 5 MG TABLET PO SCH (09:36)
--- NOTE | 2017-05-08 10:49 | PDOC ---
PROGRESS NOTES Chief Complaint Chief Complaint Syncope Cellulitis ASSESSMENT AND PLAN: 1. L LE cellulitis: cont zosyn as per ID service 2. L LE fx: external hardware removed 2 weeks ago, internal hardware removal and debridement on 05/04. bone nonhealing (fx in December). wound vac, hyperbaric O2 as per wound care team. amputation recommended, pt not agreeable 3. Anemia: chronic, did receive PRBC x 3 prior to surgery. 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 now stable. 4. Syncope POA: poss vasovagal or related to anemia. no obvious cardiac source. 5. HTN: well controlled with med adjustment 6. DM2: poorly controlled (chronic). insulin resistant; now on bid levemir dosing, increase dose 7. CAD: no acute issues. cont 2ary prevention meds 8. Hx CVA 9. Hx severe BRYCE with HD requirement: mild BRYCE at admit, prob vasomotor. monitor with IVF, PO fluids 10. morbid obesity, BMI 46. w/ moderately severe malnutrition, serum albumin 2.8. dietary teaching 11. Dyspnea: not hypoxic. prob obesity driven hypoventilation Dispo: [facility] in [facility] if accepted History of Present Illness History of Present Illness Bp on high side, no symptoms LAst hyperbarix tx was wednesday, will do it again on wednesday OnIV abx and wound vac Off HD now - had total 15 sessions PLAN: Start norvasc 5 PO qD Dw him and RN Vitals Vitals Vital Signs Date Time Temp Pulse Resp B/P (MAP) Pulse Ox O2 Delivery O2 Flow Rate FiO2 05/08/17 09:36 85 161/89 05/08/17 08:00 Room Air 05/08/17 07:00 98.0 18 93 98.0 Physical Exam General: Alert, Oriented X3, Cooperative, No acute distress Heart: Regular rate Lungs: Clear Abdomen: Normal bowel sounds, No tenderness Extremities: No cyanosis, Other (L ankle swollen. post heel wound with jay pus, medial and lateral wounds not well healing, with detritus, ?pus) Skin: No rashes Labs LABS Laboratory Tests Test 05/07/17 13:34 05/07/17 16:39 05/07/17 20:06 05/08/17 04:35 Glucose (Fingerstick) 166 mg/dL (70-99) 178 mg/dL (70-99) 270 mg/dL (70-99) White Blood Count 9.5 x10^3/uL (4.0-11.0) Red Blood Count 2.96 x10^6/uL (4.30-5.70) Hemoglobin 9.2 g/dL (13.0-17.5) Hematocrit 27.3 % (39.0-53.0) Mean Corpuscular Volume 92 fL (79-100) Mean Corpuscular Hemoglobin 31 pg (25-35) Mean Corpuscular Hemoglobin Concent 34 g/dL (31-37) Red Cell Distribution Width 16.1 % (11.5-14.5) Platelet Count 164 x10^3/uL (140-400) Neutrophils (%) (Auto) 77 % (31-73) Lymphocytes (%) (Auto) 10 % (24-48) Monocytes (%) (Auto) 9 % (0-9) Eosinophils (%) (Auto) 3 % (0-3) Basophils (%) (Auto) 1 % (0-3) Neutrophils # (Auto) 7.3 x10^3uL (1.8-7.7) Lymphocytes # (Auto) 1.0 x10^3/uL (1.0-4.8) Monocytes # (Auto) 0.9 x10^3/uL (0.0-1.1) Eosinophils # (Auto) 0.3 x10^3/uL (0.0-0.7) Basophils # (Auto) 0.1 x10^3/uL (0.0-0.2) Sodium Level 140 mmol/L (136-145) Potassium Level 3.9 mmol/L (3.5-5.1) Chloride Level 103 mmol/L (98-107) Carbon Dioxide Level 31 mmol/L (21-32) Anion Gap 6 (6-14) Blood Urea Nitrogen 30 mg/dL (8-26) Creatinine 1.1 mg/dL (0.7-1.3) Estimated GFR (Cockcroft-Gault) 67.6 Glucose Level 213 mg/dL (70-99) Calcium Level 9.7 mg/dL (8.5-10.1) Test 05/08/17 07:49 Glucose (Fingerstick) 204 mg/dL (70-99) Review of Systems Review of Systems no cp, dizziness, lightheadedness, abd pain,emesis Assessment and Plan Assessmemt and Plan Problems Medical Problems: (1) Anemia Status: Acute (2) Syncope Status: Acute Problems: Comment Review of Relevant I have reviewed the following items lauryn (where applicable) has been applied. Labs Laboratory Tests Test 05/06/17 10:58 05/06/17 16:02 05/06/17 19:36 05/07/17 07:17 Glucose (Fingerstick) 342 mg/dL (70-99) 274 mg/dL (70-99) 317 mg/dL (70-99) 169 mg/dL (70-99) Test 05/07/17 13:34 05/07/17 16:39 05/07/17 20:06 05/08/17 04:35 Glucose (Fingerstick) 166 mg/dL (70-99) 178 mg/dL (70-99) 270 mg/dL (70-99) White Blood Count 9.5 x10^3/uL (4.0-11.0) Red Blood Count 2.96 x10^6/uL (4.30-5.70) Hemoglobin 9.2 g/dL (13.0-17.5) Hematocrit 27.3 % (39.0-53.0) Mean Corpuscular Volume 92 fL (79-100) Mean Corpuscular Hemoglobin 31 pg (25-35) Mean Corpuscular Hemoglobin Concent 34 g/dL (31-37) Red Cell Distribution Width 16.1 % (11.5-14.5) Platelet Count 164 x10^3/uL (140-400) Neutrophils (%) (Auto) 77 % (31-73) Lymphocytes (%) (Auto) 10 % (24-48) Monocytes (%) (Auto) 9 % (0-9) Eosinophils (%) (Auto) 3 % (0-3) Basophils (%) (Auto) 1 % (0-3) Neutrophils # (Auto) 7.3 x10^3uL (1.8-7.7) Lymphocytes # (Auto) 1.0 x10^3/uL (1.0-4.8) Monocytes # (Auto) 0.9 x10^3/uL (0.0-1.1) Eosinophils # (Auto) 0.3 x10^3/uL (0.0-0.7) Basophils # (Auto) 0.1 x10^3/uL (0.0-0.2) Sodium Level 140 mmol/L (136-145) Potassium Level 3.9 mmol/L (3.5-5.1) Chloride Level 103 mmol/L (98-107) Carbon Dioxide Level 31 mmol/L (21-32) Anion Gap 6 (6-14) Blood Urea Nitrogen 30 mg/dL (8-26) Creatinine 1.1 mg/dL (0.7-1.3) Estimated GFR (Cockcroft-Gault) 67.6 Glucose Level 213 mg/dL (70-99) Calcium Level 9.7 mg/dL (8.5-10.1) Test 05/08/17 07:49 Glucose (Fingerstick) 204 mg/dL (70-99) Laboratory Tests Test 05/07/17 13:34 05/07/17 16:39 05/07/17 20:06 05/08/17 04:35 Glucose (Fingerstick) 166 mg/dL (70-99) 178 mg/dL (70-99) 270 mg/dL (70-99) White Blood Count 9.5 x10^3/uL (4.0-11.0) Red Blood Count 2.96 x10^6/uL (4.30-5.70) Hemoglobin 9.2 g/dL (13.0-17.5) Hematocrit 27.3 % (39.0-53.0) Mean Corpuscular Volume 92 fL (79-100) Mean Corpuscular Hemoglobin 31 pg (25-35) Mean Corpuscular Hemoglobin Concent 34 g/dL (31-37) Red Cell Distribution Width 16.1 % (11.5-14.5) Platelet Count 164 x10^3/uL (140-400) Neutrophils (%) (Auto) 77 % (31-73) Lymphocytes (%) (Auto) 10 % (24-48) Monocytes (%) (Auto) 9 % (0-9) Eosinophils (%) (Auto) 3 % (0-3) Basophils (%) (Auto) 1 % (0-3) Neutrophils # (Auto) 7.3 x10^3uL (1.8-7.7) Lymphocytes # (Auto) 1.0 x10^3/uL (1.0-4.8) Monocytes # (Auto) 0.9 x10^3/uL (0.0-1.1) Eosinophils # (Auto) 0.3 x10^3/uL (0.0-0.7) Basophils # (Auto) 0.1 x10^3/uL (0.0-0.2) Sodium Level 140 mmol/L (136-145) Potassium Level 3.9 mmol/L (3.5-5.1) Chloride Level 103 mmol/L (98-107) Carbon Dioxide Level 31 mmol/L (21-32) Anion Gap 6 (6-14) Blood Urea Nitrogen 30 mg/dL (8-26) Creatinine 1.1 mg/dL (0.7-1.3) Estimated GFR (Cockcroft-Gault) 67.6 Glucose Level 213 mg/dL (70-99) Calcium Level 9.7 mg/dL (8.5-10.1) Test 05/08/17 07:49 Glucose (Fingerstick) 204 mg/dL (70-99) Microbiology 05/03/17 Anaerobic/Aerobic Culture - Final, Complete 05/03/17 Anaerobic Culture Result 1 (LIONEL) - Final, Complete 05/03/17 Aerobic Culture - Final, Complete 05/03/17 Aerobic Culture Result 1 (LIONEL) - Final, Complete 05/03/17 Aerobic Culture Result 2 (LIONEL) - Final, Complete 05/03/17 Antimicrobic Susceptibility - Final, Complete Medications Current Medications Sodium Chloride 1,000 ml @ 999 mls/hr Q1H1M IV Last administered on 00:02; Start 04/29/17 at 15:28; Stop 04/30/17 at 02:42; Status DC Aspirin (Omkar Aspirin) 325 mg DAILY PO Last administered on 05/01/17 08:32; Start 04/30/17 at 09:00; Stop 05/03/17 at 08:39; Status DC Atorvastatin Calcium (Lipitor) 20 mg QHS PO Last administered on 05/07/17 20: 49; Start 04/29/17 at 21:00 Celecoxib (CeleBREX) 200 mg BID PO Last administered on 05/02/17 21:27; Start 04/29/17 at 21:00; Stop 05/03/17 at 08:39; Status DC Vitamin D (Vitamin D3) 1,000 unit DAILY PO Last administered on 05/08/17 08: 00; Start 04/30/17 at 09:00 Clopidogrel Bisulfate (Plavix) 75 mg DAILY PO Last administered on 05/01/17 08:33; Start 04/30/17 at 09:00; Stop 05/02/17 at 12:02; Status DC Docusate Sodium (Colace) 100 mg DAILY PO Last administered on 05/07/17 07:57 ; Start 04/30/17 at 09:00 Fentanyl (Duragesic 75mcg/ Hr Patch) 1 patch Q3DAYS TD Last administered on 08:24; Start 04/30/17 at 09:00 Acetaminophen/ Hydrocodone Bitart (Lortab 7.5/325) 1 tab PRN Q6HRS PRN PO MODERATE PAIN Last administered on 04/29/17 21:25; Start 04/29/17 at 18:00; Stop 04/29/17 at 22:47; Status DC Losartan Potassium (Cozaar) 50 mg DAILY PO ; Start 04/30/17 at 09:00; Stop at 09:00; Status DC Metformin HCl (Glucophage) 500 mg BIDWMEALS PO Last administered on 05/08/17 08:01; Start 04/30/17 at 08:00 Pantoprazole Sodium (Protonix) 40 mg DAILYAC PO Last administered on 08:00; Start 04/30/17 at 07:30 Piperacillin/ Tazobactam/ Dextrose (Zosyn 3.375gm Premix) 3.375 gm Q6HRS IV ; Start 04/30/17 at 00:00; Status Cancel Tamsulosin HCl (Flomax) 0.4 mg BID PO Last administered on 05/08/17 08:01; Start 04/29/17 at 21:00 Tamsulosin HCl (Flomax) 0.4 mg HS PO ; Start 04/29/17 at 21:00; Status UNV Citalopram Hydrobromide (CeleXA) 40 mg DAILY PO Last administered on 08:01; Start 04/30/17 at 09:00 Gabapentin (Neurontin) 300 mg BID PO Last administered on 05/08/17 08:01; Start 04/29/17 at 21:00 Insulin Aspart (NovoLOG) 15 units TIDAC SQ Last administered on 05/05/17 12: 08; Start 04/30/17 at 07:30; Stop 05/05/17 at 17:16; Status DC Insulin Detemir (Levemir) 22 units QHS SQ Last administered on 04/29/17 21:26 ; Start 04/29/17 at 21:00; Stop 04/30/17 at 08:32; Status DC Labetalol HCl (Normodyne) 20 mg Q2HR PRN IVP hypertension; Start 04/29/17 at 18:00 Piperacillin Sod/ Tazobactam Sod 4.5 gm/Dextrose 100 ml @ 200 mls/hr 1X ONCE IV ; Start 04/29/17 at 18:15; Stop 04/29/17 at 18:44; Status UNV Piperacillin Sod/ Tazobactam Sod (Zosyn) 4.5 gm 1X ONCE IVP Last administered on 04/29/17 18:57; Start 04/29/17 at 18:30; Stop 04/29/17 at 18:31; Status DC Piperacillin Sod/ Tazobactam Sod (Zosyn) 3.375 gm Q6HRS IVP Last administered on 05/08/17 06:19; Start 04/30/17 at 00:00 Hydromorphone HCl (Dilaudid) 1 mg 1X ONCE IV Last administered on 04/29/17 22:55; Start 04/29/17 at 22:45; Stop 04/29/17 at 22:46; Status DC Acetaminophen/ Hydrocodone Bitart (Lortab 7.5/325) 2 tab PRN Q6HRS PRN PO MODERATE - SEVERE PAIN Last administered on 05/01/17 20:30; Start 04/29/17 at 23:00 Hydromorphone HCl (Dilaudid) 1 mg PRN Q4HRS PRN IVP PAIN; Start 04/29/17 at 23 :00; Stop 04/30/17 at 08:32; Status DC Insulin Detemir (Levemir) 25 units DAILY08 SQ Last administered on 05/01/17 08:39; Start 04/30/17 at 09:00; Stop 05/01/17 at 17:01; Status DC Losartan Potassium (Cozaar) 100 mg DAILY PO Last administered on 05/08/17 08: 01; Start 04/30/17 at 09:00 Lactobacillus Rhamnosus (Culturelle) 1 cap BID PO Last administered on 08:01; Start 05/01/17 at 21:00 Insulin Detemir (Levemir) 35 units DAILY08 SQ Last administered on 05/02/17 08:08; Start 05/02/17 at 08:00; Stop 05/02/17 at 11:55; Status DC Insulin Aspart (NovoLOG) 18 units 1X ONCE SQ Last administered on 05/01/17 22:46; Start 05/01/17 at 22:45; Stop 05/01/17 at 22:46; Status DC Albuterol Sulfate (Ventolin Neb Soln) 2.5 mg PRN Q4HRS PRN NEB SHORTNESS OF BREATH Last administered on 05/06/17 06:56; Start 05/02/17 at 10:00 Insulin Detemir (Levemir) 45 units DAILY08 SQ Last administered on 05/07/17 08:07; Start 05/02/17 at 13:00; Stop 05/07/17 at 14:01; Status DC Acetaminophen/ Hydrocodone Bitart (Lortab 5/325) 1 tab PRN Q4HRS PRN PO MILD PAIN Last administered on 05/05/17 15:50; Start 05/03/17 at 08:45 Insulin Aspart (NovoLOG) 3 units 1X ONCE SQ Last administered on 05/03/17 09 :09; Start 05/03/17 at 09:15; Stop 05/03/17 at 09:16; Status DC Fentanyl Citrate (Fentanyl 2ml Vial) 100 mcg STK-MED ONCE .ROUTE ; Start at 14:55; Stop 05/03/17 at 14:56; Status DC Midazolam HCl (Versed) 2 mg STK-MED ONCE .ROUTE ; Start 05/03/17 at 14:55; Stop 05/03/17 at 14:56; Status DC Propofol 20 ml @ As Directed STK-MED ONCE IV ; Start 05/03/17 at 15:18; Stop 05/03/17 at 15:19; Status DC Dexamethasone Sodium Phosphate (Decadron) 20 mg STK-MED ONCE .ROUTE ; Start at 15:18; Stop 05/03/17 at 15:19; Status DC Famotidine (Pepcid Vial) 20 mg STK-MED ONCE .ROUTE ; Start 05/03/17 at 15:18; Stop 05/03/17 at 15:19; Status DC Lidocaine HCl (Lidocaine Pf 2% Vial) 5 ml STK-MED ONCE .ROUTE ; Start 05/03/17 at 15:18; Stop 05/03/17 at 15:19; Status DC Ondansetron HCl (Zofran) 4 mg STK-MED ONCE .ROUTE ; Start 05/03/17 at 15:18; Stop 05/03/17 at 15:19; Status DC Phenylephrine HCl 1 mg STK-MED ONCE IV ; Start 05/03/17 at 15:41; Stop at 15:42; Status DC Ephedrine Sulfate (Akovaz) 50 mg STK-MED ONCE .ROUTE ; Start 05/03/17 at 15:53 ; Stop 05/03/17 at 15:54; Status DC Sevoflurane (Ultane) 30 ml STK-MED ONCE IH ; Start 05/03/17 at 16:02; Stop at 16:03; Status DC Insulin Aspart (NovoLOG VIAL) 3 unit 1X PACU PRN SQ SEE COMMENTS Last administered on 05/03/17 16:59; Start 05/03/17 at 16:45; Stop 05/05/17 at 15 :17; Status DC Midazolam HCl (Versed) 2 mg PRN 1X PRN IV PRIOR TO PROCEDURE; Start 05/03/17 at 18:30; Stop 05/04/17 at 06:00; Status DC Sodium Chloride 1,000 ml @ 125 mls/hr Q8H IV Last administered on 05/04/17 02:16; Start 05/03/17 at 18:30; Stop 05/04/17 at 06:00; Status DC Lidocaine HCl (Xylocaine-Mpf 1% Vial) 2 ml 1X PRN PRN ID IV START; Start 05/03 at 18:30; Stop 05/04/17 at 06:00; Status DC Insulin Detemir (Levemir) 20 units QHS SQ Last administered on 05/04/17 21:04 ; Start 05/04/17 at 21:00; Stop 05/06/17 at 08:02; Status DC Insulin Aspart (NovoLOG) 20 units TIDAC SQ Last administered on 05/08/17 08: 11; Start 05/05/17 at 17:15 Insulin Detemir (Levemir) 30 units 1X ONCE SQ ; Start 05/05/17 at 17:15; Stop 05/05/17 at 17:40; Status DC Insulin Detemir (Levemir) 30 units 1X ONCE SQ Last administered on 05/05/17 22:04; Start 05/05/17 at 21:00; Stop 05/05/17 at 21:01; Status DC Insulin Detemir (Levemir) 25 units QHS SQ Last administered on 05/06/17 19:41 ; Start 05/06/17 at 21:00; Stop 05/07/17 at 14:01; Status DC Insulin Detemir (Levemir) 60 units DAILY08 SQ Last administered on 05/08/17 08:12; Start 05/08/17 at 08:00 Insulin Detemir (Levemir) 32 units QHS SQ Last administered on 05/07/17 20:53 ; Start 05/07/17 at 21:00 Amlodipine Besylate (Norvasc) 5 mg DAILY PO Last administered on 05/08/17 09: 36; Start 05/08/17 at 09:30 Active Scripts Active Hydrocodone-Apap 7.5-325 (Hydrocodone Bit/Acetaminophen) 1 Each Tablet 1 Tab PO PRN Q6HRS PRN FENTANYL 50mcg/hr (Fentanyl) 1 Each Patch.td72 1 Patch TP Q3DAYS Reported Tamsulosin Hcl 0.4 Mg Cap.er.24h 1 Cap PO DAILY Zosyn 3.375 Gm Galaxy Bag (Wgzisdwwclbz-Jbrl-Xgmhzjac,Iso) 3.375 Gm/50 Ml Froz.piggy 3.375 Gm IV Q6HRS Novolog (Insulin Aspart) 100 Unit/1 Ml Cartridge 15 Unit SQ TIDAC Pantoprazole Sodium 40 Mg Tablet.dr 40 Mg PO DAILY Levemir (Insulin Detemir) 100 Unit/1 Ml Vial 22 Unit SQ HS FENTANYL 75mcg/hr (Fentanyl) 1 Each Patch.td72 1 Patch TP Q3DAYS Colace (Docusate Sodium) 100 Mg Capsule 1 Cap PO DAILY Aspirin 325 Mg Tablet 1 Tab PO DAILY Vitamin D3 (Cholecalciferol (Vitamin D3)) 1,000 Unit Tablet 1 Tab PO DAILY Losartan Potassium 50 Mg Tablet 50 Mg PO DAILY Gabapentin 300 Mg Capsule 300 Mg PO BID Celebrex (Celecoxib) 200 Mg Capsule 200 Mg PO BID 30 Days Citalopram Hbr (Citalopram Hydrobromide) 40 Mg Tablet 40 Mg PO DAILY Lipitor (Atorvastatin Calcium) 20 Mg Tablet 20 Mg PO QHS Flomax (Tamsulosin Hcl) 0.4 Mg Cap.er.24h 0.4 Mg PO HS Metformin Hcl 500 Mg Tablet 500 Mg PO BID Plavix (Clopidogrel Bisulfate) 75 Mg Tablet 75 Mg PO DAILY Vitals/I & O Vital Sign - Last 24 Hours 05/07/17 05/07/17 05/07/17 05/07/17 13:49 15:00 19:00 20:10 Temp 98.2 98.4 98.3 98.2 98.4 98.3 Pulse 72 69 85 Resp 24 20 19 B/P (MAP) 132/69 (90) 124/79 (94) 134/84 (101) Pulse Ox 98 98 94 O2 Delivery Room Air Room Air Room Air 05/07/17 05/08/17 05/08/17 05/08/17 23:00 02:49 07:00 08:00 Temp 97.9 98.4 98.0 97.9 98.4 98.0 Pulse 84 88 85 Resp 18 18 18 B/P (MAP) 151/80 (103) 154/84 (107) 161/89 (113) Pulse Ox 94 93 93 O2 Delivery Room Air Room Air Room Air Room Air 05/08/17 05/08/17 08:01 09:36 Pulse 85 85 B/P (MAP) 161/89 161/89 Intake and Output 05/07/17 05/07/17 05/08/17 15:00 23:00 07:00 Intake Total 600 ml 1182 ml 320 ml Output Total 300 ml 851 ml 400 ml Balance 300 ml 331 ml -80 ml MARINA GREGG MD May 08, 2017 10:49
[2017-05-08 11:31] VITALS: BP 142/76
[2017-05-08 15:08] VITALS: BP 103/58
--- NOTE | 2017-05-08 18:52 | PDOC ---
Infectious Disease Note Subjective Subjective Comfortable, sleepy Denies pain nonambulatory ,,, ROS ROS GEN: Denies fevers, chills, sweats CV: Denies chest pain RESP: Denies shortness of air, cough GI: Denies n/v/d Vital Sign Vital Signs Vital Signs Date Time Temp Pulse Resp B/P (MAP) Pulse Ox O2 Delivery O2 Flow Rate FiO2 05/08/17 15:08 98.0 80 18 103/58 (73) 92 Room Air 98.0 Physical Exam PHYSICAL EXAM GENERAL: Lying down, NAD LUNGS: Clear HEART: S1S2, no gallop, no murmur ABD: Obese, soft, NT EXT: Right heel bandaged. 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, no focal neurologic deficit SKIN: No rash RUE-midline, ok Labs Lab Laboratory Tests Test 05/07/17 20:06 05/08/17 04:35 05/08/17 07:49 05/08/17 10:37 Glucose (Fingerstick) 270 mg/dL (70-99) 204 mg/dL (70-99) 288 mg/dL (70-99) White Blood Count 9.5 x10^3/uL (4.0-11.0) Red Blood Count 2.96 x10^6/uL (4.30-5.70) Hemoglobin 9.2 g/dL (13.0-17.5) Hematocrit 27.3 % (39.0-53.0) Mean Corpuscular Volume 92 fL (79-100) Mean Corpuscular Hemoglobin 31 pg (25-35) Mean Corpuscular Hemoglobin Concent 34 g/dL (31-37) Red Cell Distribution Width 16.1 % (11.5-14.5) Platelet Count 164 x10^3/uL (140-400) Neutrophils (%) (Auto) 77 % (31-73) Lymphocytes (%) (Auto) 10 % (24-48) Monocytes (%) (Auto) 9 % (0-9) Eosinophils (%) (Auto) 3 % (0-3) Basophils (%) (Auto) 1 % (0-3) Neutrophils # (Auto) 7.3 x10^3uL (1.8-7.7) Lymphocytes # (Auto) 1.0 x10^3/uL (1.0-4.8) Monocytes # (Auto) 0.9 x10^3/uL (0.0-1.1) Eosinophils # (Auto) 0.3 x10^3/uL (0.0-0.7) Basophils # (Auto) 0.1 x10^3/uL (0.0-0.2) Sodium Level 140 mmol/L (136-145) Potassium Level 3.9 mmol/L (3.5-5.1) Chloride Level 103 mmol/L (98-107) Carbon Dioxide Level 31 mmol/L (21-32) Anion Gap 6 (6-14) Blood Urea Nitrogen 30 mg/dL (8-26) Creatinine 1.1 mg/dL (0.7-1.3) Estimated GFR (Cockcroft-Gault) 67.6 Glucose Level 213 mg/dL (70-99) Calcium Level 9.7 mg/dL (8.5-10.1) Test 05/08/17 16:36 Glucose (Fingerstick) 210 mg/dL (70-99) Micro ANAEROBIC RES 1 Final No anaerobic growth in 72 hours. AEROBIC RES 1 Final Methicillin - resistant Staphylococcus aureus AEROBIC RES 2 Final Mixed skin reanto Antibiotic RSLT#1 Ciprofloxacin R Clindamycin S Erythromycin R Gentamicin S Levofloxacin I Linezolid S Oxacillin R Penicillin R Rifampin S Tetracycline S Trimethoprim/Sulfa S Vancomycin S Objective Assessment 1. Left ankle wound with infection and hardware in place. s/p I and D, . MRSA - -hx proteus, PSA, Enterococcus and MSSA 2. Right calcaneal wound. s/p I and D,05/03 3. Syncope, which may have been related to pain medication. back to baseline. 4. Diabetes. 5. History of cerebrovascular accident. 6. Hypertension. 7. Obesity. 8. Anemia Plan Plan of Care Cont Zosyn and dapto Probiotics Does not want amputation but needs an amputation F/u labs in am Monitor Ck above per Dr. Zelaya Patient seen and examined on 05/08/17. 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 Chart reviewed in detail. Agree with above plan. Note signed the next day after completion. ULISSES CABEZAS APRN May 08, 2017 18:52 MISTI ZELAYA MD May 09, 2017 16:35
[2017-05-08 19:05] VITALS: BP 139/74
[2017-05-08] MEDS: DAPTOMYCIN IV SCH (20:36)
[2017-05-08] MEDS: NORMAL SALINE IV SCH (20:36)
[2017-05-08] MEDS: ATORVASTATIN CALCIUM 20 MG TABLET PO SCH (20:36)
[2017-05-08 22:33] VITALS: BP 157/80
[2017-05-09] MEDS: PIPERACILLIN/TAZO IV Push 3.375 GM VIAL. IVP SCH ×4 (00:22→17:16)
[2017-05-09 03:22] VITALS: BP 152/90
[2017-05-09] MEDS: ALBUTEROL SULFATE 2.5 MG/3 ML NEBU. NEB PRN (05:22)
[2017-05-09 05:27] LABS: BASO % 1 % (0-3); EOS % 4 % (0-3); HEMATOCRIT 26.9 % (39.0-53.0); HEMOGLOBIN 9.2 g/dL (13.0-17.5); LYMPH % 12 % (24-48); MEAN CORPUSCULAR HEMOGLOBIN 31 pg (25-35); MEAN CORPUSCULAR HGB CONC 34 g/dL (31-37); MEAN CORPUSCULAR VOLUME 92 fL (79-100); MONO % 9 % (0-9); NEUT % 75 % (31-73); PLATELET COUNT 165 x10^3/uL (140-400); RED BLOOD COUNT 2.92 x10^6/uL (4.30-5.70)
[2017-05-09 06:03] LABS: CALCIUM 9.5 mg/dL (8.5-10.1); CREATININE 1.2 mg/dL (0.7-1.3); GFR 61.1; POTASSIUM 3.7 mmol/L (3.5-5.1)
[2017-05-09 07:00] VITALS: BP 161/81
[2017-05-09] MEDS: metFORMIN 500 MG TABLET PO SCH ×2 (08:00→17:13)
[2017-05-09] MEDS: amLODIPine BESYLATE 5 MG TABLET PO SCH (08:00)
[2017-05-09] MEDS: LACTOBACILLUS RHAMNOSUS GG 1 CAPSULE. PO SCH ×2 (08:01→20:18)
[2017-05-09] MEDS: LOSARTAN POTASSIUM 50 MG TABLET. PO SCH (08:01)
[2017-05-09] MEDS: CHOLECALCIFEROL (VITAMIN D3) 1,000 UNIT TABLET PO SCH (08:01)
[2017-05-09] MEDS: CITALOPRAM 20 MG TABLET. PO SCH (08:01)
[2017-05-09] MEDS: TAMSULOSIN 0.4 MG CAP.ER.24H. PO SCH ×2 (08:01→20:17)
[2017-05-09] MEDS: GABAPENTIN 300 MG CAPSULE. PO SCH ×2 (08:01→20:17)
[2017-05-09] MEDS: PANTOPRAZOLE 40 MG TABLET.DR. PO SCH (08:01)
[2017-05-09] MEDS: DOCUSATE SODIUM 100 MG CAPSULE. PO SCH (08:12)
[2017-05-09] MEDS: INSULIN ASPART 300 UNITS/3 ML INSULN.PEN SQ SCH ×4 (08:12→18:00)
[2017-05-09] MEDS: INSULIN DETEMIR 300 UNITS/3 ML INSULN.PEN. SQ SCH ×2 (08:12→20:25)
[2017-05-09] MEDS: fentaNYL 75MCG/HR PATCH 1 PATCH PATCH.TD72 TD SCH (08:13)
[2017-05-09 11:00] VITALS: BP 125/70
--- NOTE | 2017-05-09 12:46 | PDOC ---
Infectious Disease Note Subjective Subjective Comfortable Denies pain ROS ROS GEN: Denies fevers, chills, sweats CV: Denies chest pain RESP: Denies shortness of air, cough GI: Denies n/v/d Vital Sign Vital Signs Vital Signs Date Time Temp Pulse Resp B/P (MAP) Pulse Ox O2 Delivery O2 Flow Rate FiO2 05/09/17 08:20 Room Air 05/09/17 08:01 91 161/81 05/09/17 07:00 98.0 20 97 98.0 Physical Exam PHYSICAL EXAM GENERAL: Sitting in the chair, NAD LUNGS: Clear HEART: S1S2, no gallop, no murmur ABD: Obese, soft, NT EXT: Right heel bandaged. 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, no focal neurologic deficit SKIN: No rash RUE-midline, ok Labs Lab Laboratory Tests Test 05/08/17 16:36 05/08/17 20:32 05/09/17 04:05 05/09/17 07:50 Glucose (Fingerstick) 210 mg/dL (70-99) 257 mg/dL (70-99) 166 mg/dL (70-99) White Blood Count 9.0 x10^3/uL (4.0-11.0) Red Blood Count 2.92 x10^6/uL (4.30-5.70) Hemoglobin 9.2 g/dL (13.0-17.5) Hematocrit 26.9 % (39.0-53.0) Mean Corpuscular Volume 92 fL (79-100) Mean Corpuscular Hemoglobin 31 pg (25-35) Mean Corpuscular Hemoglobin Concent 34 g/dL (31-37) Red Cell Distribution Width 16.0 % (11.5-14.5) Platelet Count 165 x10^3/uL (140-400) Neutrophils (%) (Auto) 75 % (31-73) Lymphocytes (%) (Auto) 12 % (24-48) Monocytes (%) (Auto) 9 % (0-9) Eosinophils (%) (Auto) 4 % (0-3) Basophils (%) (Auto) 1 % (0-3) Neutrophils # (Auto) 6.8 x10^3uL (1.8-7.7) Lymphocytes # (Auto) 1.0 x10^3/uL (1.0-4.8) Monocytes # (Auto) 0.8 x10^3/uL (0.0-1.1) Eosinophils # (Auto) 0.4 x10^3/uL (0.0-0.7) Basophils # (Auto) 0.0 x10^3/uL (0.0-0.2) Sodium Level 141 mmol/L (136-145) Potassium Level 3.7 mmol/L (3.5-5.1) Chloride Level 103 mmol/L (98-107) Carbon Dioxide Level 31 mmol/L (21-32) Anion Gap 7 (6-14) Blood Urea Nitrogen 29 mg/dL (8-26) Creatinine 1.2 mg/dL (0.7-1.3) Estimated GFR (Cockcroft-Gault) 61.1 Glucose Level 172 mg/dL (70-99) Calcium Level 9.5 mg/dL (8.5-10.1) Test 05/09/17 11:27 Glucose (Fingerstick) 259 mg/dL (70-99) Micro ANAEROBIC RES 1 Final No anaerobic growth in 72 hours. AEROBIC RES 1 Final Methicillin - resistant Staphylococcus aureus AEROBIC RES 2 Final Mixed skin renato Antibiotic RSLT#1 Ciprofloxacin R Clindamycin S Erythromycin R Gentamicin S Levofloxacin I Linezolid S Oxacillin R Penicillin R Rifampin S Tetracycline S Trimethoprim/Sulfa S Vancomycin S Objective Assessment 1. Left ankle wound with infection and hardware in place. s/p I and D, . MRSA - -hx proteus, PSA, Enterococcus and MSSA 2. Right calcaneal wound. s/p I and D,05/03 3. Syncope, which may have been related to pain medication. back to baseline. 4. Diabetes. 5. History of cerebrovascular accident. 6. Hypertension. 7. Obesity. 8. Anemia Plan Plan of Care Cont Zosyn and dapto Probiotics Does not want amputation but needs an amputation F/u labs in am Monitor Ck Patient seen and examined. Case discussed with [employer]. Chart reviewed in detail. Agree with above plan ULISSES CABEZAS APRN May 09, 2017 12:46 MISTI YAÑEZ MD May 09, 2017 16:36
--- NOTE | 2017-05-09 12:55 | PDOC ---
PROGRESS NOTES Chief Complaint Chief Complaint Syncope Cellulitis ASSESSMENT AND PLAN: 1. L LE cellulitis: cont zosyn as per ID service 2. L LE fx: external hardware removed 2 weeks ago, internal hardware removal and debridement on 05/04. bone nonhealing (fx in December). wound vac, hyperbaric O2 as per wound care team. amputation recommended, pt not agreeable 3. Anemia: chronic, did receive PRBC x 3 prior to surgery. 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 now stable. 4. Syncope POA: poss vasovagal or related to anemia. no obvious cardiac source. 5. HTN: well controlled with med adjustment 6. DM2: poorly controlled (chronic). insulin resistant; now on bid levemir dosing, increase dose 7. CAD: no acute issues. cont 2ary prevention meds 8. Hx CVA 9. Hx severe BRYCE with HD requirement: mild BRYCE at admit, prob vasomotor. monitor with IVF, PO fluids 10. morbid obesity, BMI 46. w/ moderately severe malnutrition, serum albumin 2.8. dietary teaching 11. Dyspnea: not hypoxic. prob obesity driven hypoventilation 12. Long toe nails Dispo: [facility] in [facility] if accepted History of Present Illness History of Present Illness Cleared form ortho, ID to dc SW looking at [facility] rehab bec cant manage shona t home with HH For hyperbaric tx wednesday and IV abx and wound vac x 4-[address] barba Pt wants a second opinion from [facility] and he is welcome to do so (he alreday has an ortho dc in mind) BP high still, despite me starting norvasc on wednesday BS ok He otherwise looks good, request toe nail clipping PLAN: Podiatry consult for toenail clipping Dc to [facility] acute rehab hopefully if he gets accepted wednesday Vitals Vitals Vital Signs Date Time Temp Pulse Resp B/P (MAP) Pulse Ox O2 Delivery O2 Flow Rate FiO2 05/09/17 08:20 Room Air 05/09/17 08:01 91 161/81 05/09/17 07:00 98.0 20 97 98.0 Physical Exam General: Alert, Oriented X3, Cooperative, No acute distress Heart: Regular rate Lungs: Clear Abdomen: Normal bowel sounds, No tenderness Extremities: No cyanosis, Other (L ankle swollen. post heel wound with jay pus, medial and lateral wounds not well healing, with detritus, ?pus) Skin: No rashes Labs LABS Laboratory Tests Test 05/08/17 16:36 05/08/17 20:32 05/09/17 04:05 05/09/17 07:50 Glucose (Fingerstick) 210 mg/dL (70-99) 257 mg/dL (70-99) 166 mg/dL (70-99) White Blood Count 9.0 x10^3/uL (4.0-11.0) Red Blood Count 2.92 x10^6/uL (4.30-5.70) Hemoglobin 9.2 g/dL (13.0-17.5) Hematocrit 26.9 % (39.0-53.0) Mean Corpuscular Volume 92 fL (79-100) Mean Corpuscular Hemoglobin 31 pg (25-35) Mean Corpuscular Hemoglobin Concent 34 g/dL (31-37) Red Cell Distribution Width 16.0 % (11.5-14.5) Platelet Count 165 x10^3/uL (140-400) Neutrophils (%) (Auto) 75 % (31-73) Lymphocytes (%) (Auto) 12 % (24-48) Monocytes (%) (Auto) 9 % (0-9) Eosinophils (%) (Auto) 4 % (0-3) Basophils (%) (Auto) 1 % (0-3) Neutrophils # (Auto) 6.8 x10^3uL (1.8-7.7) Lymphocytes # (Auto) 1.0 x10^3/uL (1.0-4.8) Monocytes # (Auto) 0.8 x10^3/uL (0.0-1.1) Eosinophils # (Auto) 0.4 x10^3/uL (0.0-0.7) Basophils # (Auto) 0.0 x10^3/uL (0.0-0.2) Sodium Level 141 mmol/L (136-145) Potassium Level 3.7 mmol/L (3.5-5.1) Chloride Level 103 mmol/L (98-107) Carbon Dioxide Level 31 mmol/L (21-32) Anion Gap 7 (6-14) Blood Urea Nitrogen 29 mg/dL (8-26) Creatinine 1.2 mg/dL (0.7-1.3) Estimated GFR (Cockcroft-Gault) 61.1 Glucose Level 172 mg/dL (70-99) Calcium Level 9.5 mg/dL (8.5-10.1) Test 05/09/17 11:27 Glucose (Fingerstick) 259 mg/dL (70-99) Review of Systems Review of Systems denies 14 pt reviewed Assessment and Plan Assessmemt and Plan Problems Medical Problems: (1) Anemia Status: Acute (2) Syncope Status: Acute Problems: Comment Review of Relevant I have reviewed the following items lauryn (where applicable) has been applied. Labs Laboratory Tests Test 05/07/17 13:34 05/07/17 16:39 05/07/17 20:06 05/08/17 04:35 Glucose (Fingerstick) 166 mg/dL (70-99) 178 mg/dL (70-99) 270 mg/dL (70-99) White Blood Count 9.5 x10^3/uL (4.0-11.0) Red Blood Count 2.96 x10^6/uL (4.30-5.70) Hemoglobin 9.2 g/dL (13.0-17.5) Hematocrit 27.3 % (39.0-53.0) Mean Corpuscular Volume 92 fL (79-100) Mean Corpuscular Hemoglobin 31 pg (25-35) Mean Corpuscular Hemoglobin Concent 34 g/dL (31-37) Red Cell Distribution Width 16.1 % (11.5-14.5) Platelet Count 164 x10^3/uL (140-400) Neutrophils (%) (Auto) 77 % (31-73) Lymphocytes (%) (Auto) 10 % (24-48) Monocytes (%) (Auto) 9 % (0-9) Eosinophils (%) (Auto) 3 % (0-3) Basophils (%) (Auto) 1 % (0-3) Neutrophils # (Auto) 7.3 x10^3uL (1.8-7.7) Lymphocytes # (Auto) 1.0 x10^3/uL (1.0-4.8) Monocytes # (Auto) 0.9 x10^3/uL (0.0-1.1) Eosinophils # (Auto) 0.3 x10^3/uL (0.0-0.7) Basophils # (Auto) 0.1 x10^3/uL (0.0-0.2) Sodium Level 140 mmol/L (136-145) Potassium Level 3.9 mmol/L (3.5-5.1) Chloride Level 103 mmol/L (98-107) Carbon Dioxide Level 31 mmol/L (21-32) Anion Gap 6 (6-14) Blood Urea Nitrogen 30 mg/dL (8-26) Creatinine 1.1 mg/dL (0.7-1.3) Estimated GFR (Cockcroft-Gault) 67.6 Glucose Level 213 mg/dL (70-99) Calcium Level 9.7 mg/dL (8.5-10.1) Test 05/08/17 07:49 05/08/17 10:37 05/08/17 16:36 05/08/17 20:32 Glucose (Fingerstick) 204 mg/dL (70-99) 288 mg/dL (70-99) 210 mg/dL (70-99) 257 mg/dL (70-99) Test 05/09/17 04:05 05/09/17 07:50 05/09/17 11:27 White Blood Count 9.0 x10^3/uL (4.0-11.0) Red Blood Count 2.92 x10^6/uL (4.30-5.70) Hemoglobin 9.2 g/dL (13.0-17.5) Hematocrit 26.9 % (39.0-53.0) Mean Corpuscular Volume 92 fL (79-100) Mean Corpuscular Hemoglobin 31 pg (25-35) Mean Corpuscular Hemoglobin Concent 34 g/dL (31-37) Red Cell Distribution Width 16.0 % (11.5-14.5) Platelet Count 165 x10^3/uL (140-400) Neutrophils (%) (Auto) 75 % (31-73) Lymphocytes (%) (Auto) 12 % (24-48) Monocytes (%) (Auto) 9 % (0-9) Eosinophils (%) (Auto) 4 % (0-3) Basophils (%) (Auto) 1 % (0-3) Neutrophils # (Auto) 6.8 x10^3uL (1.8-7.7) Lymphocytes # (Auto) 1.0 x10^3/uL (1.0-4.8) Monocytes # (Auto) 0.8 x10^3/uL (0.0-1.1) Eosinophils # (Auto) 0.4 x10^3/uL (0.0-0.7) Basophils # (Auto) 0.0 x10^3/uL (0.0-0.2) Sodium Level 141 mmol/L (136-145) Potassium Level 3.7 mmol/L (3.5-5.1) Chloride Level 103 mmol/L (98-107) Carbon Dioxide Level 31 mmol/L (21-32) Anion Gap 7 (6-14) Blood Urea Nitrogen 29 mg/dL (8-26) Creatinine 1.2 mg/dL (0.7-1.3) Estimated GFR (Cockcroft-Gault) 61.1 Glucose Level 172 mg/dL (70-99) Calcium Level 9.5 mg/dL (8.5-10.1) Glucose (Fingerstick) 166 mg/dL (70-99) 259 mg/dL (70-99) Laboratory Tests Test 05/08/17 16:36 05/08/17 20:32 05/09/17 04:05 05/09/17 07:50 Glucose (Fingerstick) 210 mg/dL (70-99) 257 mg/dL (70-99) 166 mg/dL (70-99) White Blood Count 9.0 x10^3/uL (4.0-11.0) Red Blood Count 2.92 x10^6/uL (4.30-5.70) Hemoglobin 9.2 g/dL (13.0-17.5) Hematocrit 26.9 % (39.0-53.0) Mean Corpuscular Volume 92 fL (79-100) Mean Corpuscular Hemoglobin 31 pg (25-35) Mean Corpuscular Hemoglobin Concent 34 g/dL (31-37) Red Cell Distribution Width 16.0 % (11.5-14.5) Platelet Count 165 x10^3/uL (140-400) Neutrophils (%) (Auto) 75 % (31-73) Lymphocytes (%) (Auto) 12 % (24-48) Monocytes (%) (Auto) 9 % (0-9) Eosinophils (%) (Auto) 4 % (0-3) Basophils (%) (Auto) 1 % (0-3) Neutrophils # (Auto) 6.8 x10^3uL (1.8-7.7) Lymphocytes # (Auto) 1.0 x10^3/uL (1.0-4.8) Monocytes # (Auto) 0.8 x10^3/uL (0.0-1.1) Eosinophils # (Auto) 0.4 x10^3/uL (0.0-0.7) Basophils # (Auto) 0.0 x10^3/uL (0.0-0.2) Sodium Level 141 mmol/L (136-145) Potassium Level 3.7 mmol/L (3.5-5.1) Chloride Level 103 mmol/L (98-107) Carbon Dioxide Level 31 mmol/L (21-32) Anion Gap 7 (6-14) Blood Urea Nitrogen 29 mg/dL (8-26) Creatinine 1.2 mg/dL (0.7-1.3) Estimated GFR (Cockcroft-Gault) 61.1 Glucose Level 172 mg/dL (70-99) Calcium Level 9.5 mg/dL (8.5-10.1) Test 05/09/17 11:27 Glucose (Fingerstick) 259 mg/dL (70-99) Microbiology 05/03/17 Anaerobic/Aerobic Culture - Final, Complete 05/03/17 Anaerobic Culture Result 1 (LIONEL) - Final, Complete 05/03/17 Aerobic Culture - Final, Complete 05/03/17 Aerobic Culture Result 1 (LIONEL) - Final, Complete 05/03/17 Aerobic Culture Result 2 (LIONEL) - Final, Complete 05/03/17 Antimicrobic Susceptibility - Final, Complete Medications Current Medications Sodium Chloride 1,000 ml @ 999 mls/hr Q1H1M IV Last administered on 00:02; Start 04/29/17 at 15:28; Stop 04/30/17 at 02:42; Status DC Aspirin (Omkar Aspirin) 325 mg DAILY PO Last administered on 05/01/17 08:32; Start 04/30/17 at 09:00; Stop 05/03/17 at 08:39; Status DC Atorvastatin Calcium (Lipitor) 20 mg QHS PO Last administered on 05/08/17 20: 36; Start 04/29/17 at 21:00 Celecoxib (CeleBREX) 200 mg BID PO Last administered on 05/02/17 21:27; Start 04/29/17 at 21:00; Stop 05/03/17 at 08:39; Status DC Vitamin D (Vitamin D3) 1,000 unit DAILY PO Last administered on 05/09/17 08: 01; Start 04/30/17 at 09:00 Clopidogrel Bisulfate (Plavix) 75 mg DAILY PO Last administered on 05/01/17 08:33; Start 04/30/17 at 09:00; Stop 05/02/17 at 12:02; Status DC Docusate Sodium (Colace) 100 mg DAILY PO Last administered on 05/07/17 07:57 ; Start 04/30/17 at 09:00 Fentanyl (Duragesic 75mcg/ Hr Patch) 1 patch Q3DAYS TD Last administered on 08:24; Start 04/30/17 at 09:00 Acetaminophen/ Hydrocodone Bitart (Lortab 7.5/325) 1 tab PRN Q6HRS PRN PO MODERATE PAIN Last administered on 04/29/17 21:25; Start 04/29/17 at 18:00; Stop 04/29/17 at 22:47; Status DC Losartan Potassium (Cozaar) 50 mg DAILY PO ; Start 04/30/17 at 09:00; Stop at 09:00; Status DC Metformin HCl (Glucophage) 500 mg BIDWMEALS PO Last administered on 05/09/17 08:00; Start 04/30/17 at 08:00 Pantoprazole Sodium (Protonix) 40 mg DAILYAC PO Last administered on 08:01; Start 04/30/17 at 07:30 Piperacillin/ Tazobactam/ Dextrose (Zosyn 3.375gm Premix) 3.375 gm Q6HRS IV ; Start 04/30/17 at 00:00; Status Cancel Tamsulosin HCl (Flomax) 0.4 mg BID PO Last administered on 05/09/17 08:01; Start 04/29/17 at 21:00 Tamsulosin HCl (Flomax) 0.4 mg HS PO ; Start 04/29/17 at 21:00; Status UNV Citalopram Hydrobromide (CeleXA) 40 mg DAILY PO Last administered on 08:01; Start 04/30/17 at 09:00 Gabapentin (Neurontin) 300 mg BID PO Last administered on 05/09/17 08:01; Start 04/29/17 at 21:00 Insulin Aspart (NovoLOG) 15 units TIDAC SQ Last administered on 05/05/17 12: 08; Start 04/30/17 at 07:30; Stop 05/05/17 at 17:16; Status DC Insulin Detemir (Levemir) 22 units QHS SQ Last administered on 04/29/17 21:26 ; Start 04/29/17 at 21:00; Stop 04/30/17 at 08:32; Status DC Labetalol HCl (Normodyne) 20 mg Q2HR PRN IVP hypertension; Start 04/29/17 at 18:00 Piperacillin Sod/ Tazobactam Sod 4.5 gm/Dextrose 100 ml @ 200 mls/hr 1X ONCE IV ; Start 04/29/17 at 18:15; Stop 04/29/17 at 18:44; Status UNV Piperacillin Sod/ Tazobactam Sod (Zosyn) 4.5 gm 1X ONCE IVP Last administered on 04/29/17 18:57; Start 04/29/17 at 18:30; Stop 04/29/17 at 18:31; Status DC Piperacillin Sod/ Tazobactam Sod (Zosyn) 3.375 gm Q6HRS IVP Last administered on 05/09/17 11:44; Start 04/30/17 at 00:00 Hydromorphone HCl (Dilaudid) 1 mg 1X ONCE IV Last administered on 04/29/17 22:55; Start 04/29/17 at 22:45; Stop 04/29/17 at 22:46; Status DC Acetaminophen/ Hydrocodone Bitart (Lortab 7.5/325) 2 tab PRN Q6HRS PRN PO MODERATE - SEVERE PAIN Last administered on 05/01/17 20:30; Start 04/29/17 at 23:00 Hydromorphone HCl (Dilaudid) 1 mg PRN Q4HRS PRN IVP PAIN; Start 04/29/17 at 23 :00; Stop 04/30/17 at 08:32; Status DC Insulin Detemir (Levemir) 25 units DAILY08 SQ Last administered on 05/01/17 08:39; Start 04/30/17 at 09:00; Stop 05/01/17 at 17:01; Status DC Losartan Potassium (Cozaar) 100 mg DAILY PO Last administered on 05/09/17 08: 01; Start 04/30/17 at 09:00 Lactobacillus Rhamnosus (Culturelle) 1 cap BID PO Last administered on 08:01; Start 05/01/17 at 21:00 Insulin Detemir (Levemir) 35 units DAILY08 SQ Last administered on 05/02/17 08:08; Start 05/02/17 at 08:00; Stop 05/02/17 at 11:55; Status DC Insulin Aspart (NovoLOG) 18 units 1X ONCE SQ Last administered on 05/01/17 22:46; Start 05/01/17 at 22:45; Stop 05/01/17 at 22:46; Status DC Albuterol Sulfate (Ventolin Neb Soln) 2.5 mg PRN Q4HRS PRN NEB SHORTNESS OF BREATH Last administered on 05/09/17 05:22; Start 05/02/17 at 10:00 Insulin Detemir (Levemir) 45 units DAILY08 SQ Last administered on 05/07/17 08:07; Start 05/02/17 at 13:00; Stop 05/07/17 at 14:01; Status DC Acetaminophen/ Hydrocodone Bitart (Lortab 5/325) 1 tab PRN Q4HRS PRN PO MILD PAIN Last administered on 05/05/17 15:50; Start 05/03/17 at 08:45 Insulin Aspart (NovoLOG) 3 units 1X ONCE SQ Last administered on 05/03/17 09 :09; Start 05/03/17 at 09:15; Stop 05/03/17 at 09:16; Status DC Fentanyl Citrate (Fentanyl 2ml Vial) 100 mcg STK-MED ONCE .ROUTE ; Start at 14:55; Stop 05/03/17 at 14:56; Status DC Midazolam HCl (Versed) 2 mg STK-MED ONCE .ROUTE ; Start 05/03/17 at 14:55; Stop 05/03/17 at 14:56; Status DC Propofol 20 ml @ As Directed STK-MED ONCE IV ; Start 05/03/17 at 15:18; Stop 05/03/17 at 15:19; Status DC Dexamethasone Sodium Phosphate (Decadron) 20 mg STK-MED ONCE .ROUTE ; Start at 15:18; Stop 05/03/17 at 15:19; Status DC Famotidine (Pepcid Vial) 20 mg STK-MED ONCE .ROUTE ; Start 05/03/17 at 15:18; Stop 05/03/17 at 15:19; Status DC Lidocaine HCl (Lidocaine Pf 2% Vial) 5 ml STK-MED ONCE .ROUTE ; Start 05/03/17 at 15:18; Stop 05/03/17 at 15:19; Status DC Ondansetron HCl (Zofran) 4 mg STK-MED ONCE .ROUTE ; Start 05/03/17 at 15:18; Stop 05/03/17 at 15:19; Status DC Phenylephrine HCl 1 mg STK-MED ONCE IV ; Start 05/03/17 at 15:41; Stop at 15:42; Status DC Ephedrine Sulfate (Akovaz) 50 mg STK-MED ONCE .ROUTE ; Start 05/03/17 at 15:53 ; Stop 05/03/17 at 15:54; Status DC Sevoflurane (Ultane) 30 ml STK-MED ONCE IH ; Start 05/03/17 at 16:02; Stop at 16:03; Status DC Insulin Aspart (NovoLOG VIAL) 3 unit 1X PACU PRN SQ SEE COMMENTS Last administered on 05/03/17t 16:59; Start 05/03/17 at 16:45; Stop 05/05/17 at 15 :17; Status DC Midazolam HCl (Versed) 2 mg PRN 1X PRN IV PRIOR TO PROCEDURE; Start 05/03/17 at 18:30; Stop 05/04/17 at 06:00; Status DC Sodium Chloride 1,000 ml @ 125 mls/hr Q8H IV Last administered on 05/04/17t 02:16; Start 05/03/17 at 18:30; Stop 05/04/17 at 06:00; Status DC Lidocaine HCl (Xylocaine-Mpf 1% Vial) 2 ml 1X PRN PRN ID IV START; Start 05/03 at 18:30; Stop 05/04/17 at 06:00; Status DC Insulin Detemir (Levemir) 20 units QHS SQ Last administered on 05/04/17 21:04 ; Start 05/04/17 at 21:00; Stop 05/06/17 at 08:02; Status DC Insulin Aspart (NovoLOG) 20 units TIDAC SQ Last administered on 05/09/17 11: 55; Start 05/05/17 at 17:15 Insulin Detemir (Levemir) 30 units 1X ONCE SQ ; Start 05/05/17 at 17:15; Stop 05/05/17 at 17:40; Status DC Insulin Detemir (Levemir) 30 units 1X ONCE SQ Last administered on 05/05/17 22:04; Start 05/05/17 at 21:00; Stop 05/05/17 at 21:01; Status DC Insulin Detemir (Levemir) 25 units QHS SQ Last administered on 05/06/17 19:41 ; Start 05/06/17 at 21:00; Stop 05/07/17 at 14:01; Status DC Insulin Detemir (Levemir) 60 units DAILY08 SQ Last administered on 05/09/17 08:12; Start 05/08/17 at 08:00 Insulin Detemir (Levemir) 32 units QHS SQ Last administered on 05/08/17 20:40 ; Start 05/07/17 at 21:00 Amlodipine Besylate (Norvasc) 5 mg DAILY PO Last administered on 05/09/17 08: 00; Start 05/08/17 at 09:30 Daptomycin 890 mg/ Sodium Chloride 50 ml @ 100 mls/hr Q24H IV Last administered on 05/08/17 20:36; Start 05/08/17 at 20:00 Active Scripts Active Hydrocodone-Apap 7.5-325 (Hydrocodone Bit/Acetaminophen) 1 Each Tablet 1 Tab PO PRN Q6HRS PRN FENTANYL 50mcg/hr (Fentanyl) 1 Each Patch.td72 1 Patch TP Q3DAYS Reported Tamsulosin Hcl 0.4 Mg Cap.er.24h 1 Cap PO DAILY Zosyn 3.375 Gm Galaxy Bag (Ezpzplrcfylq-Qdeu-Tcdqygnh,Iso) 3.375 Gm/50 Ml Froz.piggy 3.375 Gm IV Q6HRS Novolog (Insulin Aspart) 100 Unit/1 Ml Cartridge 15 Unit SQ TIDAC Pantoprazole Sodium 40 Mg Tablet.dr 40 Mg PO DAILY Levemir (Insulin Detemir) 100 Unit/1 Ml Vial 22 Unit SQ HS FENTANYL 75mcg/hr (Fentanyl) 1 Each Patch.td72 1 Patch TP Q3DAYS Colace (Docusate Sodium) 100 Mg Capsule 1 Cap PO DAILY Aspirin 325 Mg Tablet 1 Tab PO DAILY Vitamin D3 (Cholecalciferol (Vitamin D3)) 1,000 Unit Tablet 1 Tab PO DAILY Losartan Potassium 50 Mg Tablet 50 Mg PO DAILY Gabapentin 300 Mg Capsule 300 Mg PO BID Celebrex (Celecoxib) 200 Mg Capsule 200 Mg PO BID 30 Days Citalopram Hbr (Citalopram Hydrobromide) 40 Mg Tablet 40 Mg PO DAILY Lipitor (Atorvastatin Calcium) 20 Mg Tablet 20 Mg PO QHS Flomax (Tamsulosin Hcl) 0.4 Mg Cap.er.24h 0.4 Mg PO HS Metformin Hcl 500 Mg Tablet 500 Mg PO BID Plavix (Clopidogrel Bisulfate) 75 Mg Tablet 75 Mg PO DAILY Vitals/I & O Vital Sign - Last 24 Hours 05/08/17 05/08/17 05/08/17 05/08/17 15:08 19:05 20:15 22:33 Temp 98.0 98.5 97.9 98.0 98.5 97.9 Pulse 80 86 83 Resp 18 20 18 B/P (MAP) 103/58 (73) 139/74 (95) 157/80 (105) Pulse Ox 92 92 92 O2 Delivery Room Air Room Air Room Air Room Air 05/09/17 05/09/17 05/09/17 05/09/17 03:22 05:24 07:00 08:00 Temp 98.6 98.0 98.6 98.0 Pulse 85 91 91 Resp 18 20 B/P (MAP) 152/90 (110) 161/81 (107) 166/81 Pulse Ox 93 94 97 O2 Delivery Room Air Room Air Room Air 05/09/17 05/09/17 08:01 08:20 Pulse 91 B/P (MAP) 161/81 O2 Delivery Room Air Intake and Output 05/08/17 05/08/17 05/09/17 15:00 23:00 07:00 Intake Total 700 ml 1370 ml 240 ml Output Total 801 ml 250 ml Balance 700 ml 569 ml -10 ml MARINA GREGG MD May 09, 2017 12:54
[2017-05-09 15:00] VITALS: BP 146/76
[2017-05-09 19:00] VITALS: BP 150/77
[2017-05-09] MEDS: NORMAL SALINE IV SCH (20:17)
[2017-05-09] MEDS: DAPTOMYCIN IV SCH (20:17)
[2017-05-09] MEDS: ATORVASTATIN CALCIUM 20 MG TABLET PO SCH (20:18)
[2017-05-09 22:49] VITALS: BP 139/69
[2017-05-10] MEDS: PIPERACILLIN/TAZO IV Push 3.375 GM VIAL. IVP SCH ×5 (00:17→23:59)
[2017-05-10 03:00] VITALS: BP 162/88
[2017-05-10 05:14] LABS: BASO % 0 % (0-3); EOS % 3 % (0-3); HEMATOCRIT 25.3 % (39.0-53.0); HEMOGLOBIN 8.8 g/dL (13.0-17.5); LYMPH # 0.9 x10^3/uL (1.0-4.8); LYMPH % 9 % (24-48); MEAN CORPUSCULAR HEMOGLOBIN 32 pg (25-35); MEAN CORPUSCULAR HGB CONC 35 g/dL (31-37); MEAN CORPUSCULAR VOLUME 92 fL (79-100); MONO % 10 % (0-9); NEUT % 78 % (31-73); PLATELET COUNT 172 x10^3/uL (140-400); RED BLOOD COUNT 2.74 x10^6/uL (4.30-5.70); RED CELL DISTRIBUTION WIDTH 15.6 % (11.5-14.5); WHITE BLOOD COUNT 10.3 x10^3/uL (4.0-11.0)
[2017-05-10 05:45] LABS: CALCIUM 9.6 mg/dL (8.5-10.1); CREATININE 1.2 mg/dL (0.7-1.3); GFR 61.1; POTASSIUM 3.4 mmol/L (3.5-5.1)
[2017-05-10 07:00] VITALS: BP 155/86
[2017-05-10] MEDS: CITALOPRAM 20 MG TABLET. PO SCH (08:06)
[2017-05-10] MEDS: TAMSULOSIN 0.4 MG CAP.ER.24H. PO SCH ×2 (08:06→20:27)
[2017-05-10] MEDS: LACTOBACILLUS RHAMNOSUS GG 1 CAPSULE. PO SCH ×2 (08:06→20:27)
[2017-05-10] MEDS: LOSARTAN POTASSIUM 50 MG TABLET. PO SCH (08:07)
[2017-05-10] MEDS: CHOLECALCIFEROL (VITAMIN D3) 1,000 UNIT TABLET PO SCH (08:07)
[2017-05-10] MEDS: amLODIPine BESYLATE 5 MG TABLET PO SCH (08:08)
[2017-05-10] MEDS: metFORMIN 500 MG TABLET PO SCH ×2 (08:08→16:23)
[2017-05-10] MEDS: PANTOPRAZOLE 40 MG TABLET.DR. PO SCH (08:08)
[2017-05-10] MEDS: DOCUSATE SODIUM 100 MG CAPSULE. PO SCH (08:09)
[2017-05-10] MEDS: INSULIN ASPART 300 UNITS/3 ML INSULN.PEN SQ SCH ×3 (08:17→16:29)
[2017-05-10] MEDS: INSULIN DETEMIR 300 UNITS/3 ML INSULN.PEN. SQ SCH ×2 (08:17→20:43)
[2017-05-10] MEDS: GABAPENTIN 300 MG CAPSULE. PO SCH ×2 (08:20→20:27)
--- NOTE | 2017-05-10 12:31 | PDOC ---
Infectious Disease Note Subjective Subjective Comfortable,eating lunch Denies pain or diarrhea ROS ROS as above otherwise neg Vital Sign Vital Signs Vital Signs Date Time Temp Pulse Resp B/P (MAP) Pulse Ox O2 Delivery O2 Flow Rate FiO2 05/10/17 08:15 Room Air 05/10/17 08:08 91 155/86 05/10/17 07:00 98.6 20 92 98.6 05/05/17 17:03 1.0 Physical Exam PHYSICAL EXAM GENERAL: Sitting in the chair, NAD LUNGS: Clear HEART: S1S2, no gallop, no murmur ABD: Obese, soft, NT EXT: Right heel bandaged. 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 deficit SKIN: No rash RUE-midline, ok Labs Lab Laboratory Tests Test 05/09/17 17:54 05/09/17 19:48 05/09/17 20:15 05/10/17 04:50 Glucose (Fingerstick) 218 mg/dL (70-99) 213 mg/dL (70-99) 194 mg/dL (70-99) White Blood Count 10.3 x10^3/uL (4.0-11.0) Red Blood Count 2.74 x10^6/uL (4.30-5.70) Hemoglobin 8.8 g/dL (13.0-17.5) Hematocrit 25.3 % (39.0-53.0) Mean Corpuscular Volume 92 fL (79-100) Mean Corpuscular Hemoglobin 32 pg (25-35) Mean Corpuscular Hemoglobin Concent 35 g/dL (31-37) Red Cell Distribution Width 15.6 % (11.5-14.5) Platelet Count 172 x10^3/uL (140-400) Neutrophils (%) (Auto) 78 % (31-73) Lymphocytes (%) (Auto) 9 % (24-48) Monocytes (%) (Auto) 10 % (0-9) Eosinophils (%) (Auto) 3 % (0-3) Basophils (%) (Auto) 0 % (0-3) Neutrophils # (Auto) 8.1 x10^3uL (1.8-7.7) Lymphocytes # (Auto) 0.9 x10^3/uL (1.0-4.8) Monocytes # (Auto) 1.0 x10^3/uL (0.0-1.1) Eosinophils # (Auto) 0.3 x10^3/uL (0.0-0.7) Basophils # (Auto) 0.0 x10^3/uL (0.0-0.2) Sodium Level 140 mmol/L (136-145) Potassium Level 3.4 mmol/L (3.5-5.1) Chloride Level 103 mmol/L (98-107) Carbon Dioxide Level 29 mmol/L (21-32) Anion Gap 8 (6-14) Blood Urea Nitrogen 27 mg/dL (8-26) Creatinine 1.2 mg/dL (0.7-1.3) Estimated GFR (Cockcroft-Gault) 61.1 Glucose Level 151 mg/dL (70-99) Calcium Level 9.6 mg/dL (8.5-10.1) Test 05/10/17 07:18 Glucose (Fingerstick) 142 mg/dL (70-99) Micro Micro ANAEROBIC RES 1 Final No anaerobic growth in 72 hours. AEROBIC RES 1 Final Methicillin - resistant Staphylococcus aureus AEROBIC RES 2 Final Mixed skin renato Antibiotic RSLT#1 Ciprofloxacin R Clindamycin S Erythromycin R Gentamicin S Levofloxacin I Linezolid S Oxacillin R Penicillin R Rifampin S Tetracycline S Trimethoprim/Sulfa S Vancomycin S Objective Assessment Assessment 1. Left ankle wound with infection and hardware in place. s/p I and D, . MRSA - -hx proteus, PSA, Enterococcus and MSSA 2. Right calcaneal wound. s/p I and D,05/03 3. Syncope, which may have been related to pain medication. back to baseline. 4. Diabetes. 5. History of cerebrovascular accident. 6. Hypertension. 7. Obesity. 8. Anemia Plan Plan of Care Cont Zosyn and daptomycin Probiotics Does not want amputation but needs an amputation Local wound care F/u labs in am Monitor weekly CPK SHI RUIZ MD May 10, 2017 12:31
--- NOTE | 2017-05-10 13:47 | PDOC ---
PROGRESS NOTES Chief Complaint Chief Complaint Syncope Cellulitis ASSESSMENT AND PLAN: 1. L LE cellulitis: cont zosyn as per ID service 2. L LE fx: external hardware removed 2 weeks ago, internal hardware removal and debridement on 05/04. bone nonhealing (fx in December). wound vac, hyperbaric O2 as per wound care team. amputation recommended, pt not agreeable 3. Anemia: chronic, did receive PRBC x 3 prior to surgery. 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 now stable. 4. Syncope POA: poss vasovagal or related to anemia. no obvious cardiac source. 5. HTN: well controlled with med adjustment 6. DM2: poorly controlled (chronic). insulin resistant; now on bid levemir dosing, increase dose 7. CAD: no acute issues. cont 2ary prevention meds 8. Hx CVA 9. Hx severe BRYCE with HD requirement: mild BRYCE at admit, prob vasomotor. monitor with IVF, PO fluids 10. morbid obesity, BMI 46. w/ moderately severe malnutrition, serum albumin 2.8. dietary teaching 11. Dyspnea: not hypoxic. prob obesity driven hypoventilation 12. Long toe nails Dispo: [facility] in [facility] if accepted History of Present Illness History of Present Illness Rejected by [facility] rehab [facility] needs hyperbaric O2 tx nearby I did tell him to start setting up OP appt with the ortho of his choice at [facility] for second opinion Podiatry has not seen PLAn: ff up podiatry LTAc screen Needs wound vac care and hyperbaric tx wherever he goes Vitals Vitals Vital Signs Date Time Temp Pulse Resp B/P (MAP) Pulse Ox O2 Delivery O2 Flow Rate FiO2 05/10/17 08:15 Room Air 05/10/17 08:08 91 155/86 05/10/17 07:00 98.6 20 92 98.6 Physical Exam General: Alert, Oriented X3, Cooperative, No acute distress Heart: Regular rate Lungs: Clear Abdomen: Normal bowel sounds, No tenderness Extremities: No cyanosis, Other (L ankle swollen. post heel wound with jay pus, medial and lateral wounds not well healing, with detritus, ?pus) Skin: No rashes Labs LABS Laboratory Tests Test 05/09/17 17:54 05/09/17 19:48 05/09/17 20:15 05/10/17 04:50 Glucose (Fingerstick) 218 mg/dL (70-99) 213 mg/dL (70-99) 194 mg/dL (70-99) White Blood Count 10.3 x10^3/uL (4.0-11.0) Red Blood Count 2.74 x10^6/uL (4.30-5.70) Hemoglobin 8.8 g/dL (13.0-17.5) Hematocrit 25.3 % (39.0-53.0) Mean Corpuscular Volume 92 fL (79-100) Mean Corpuscular Hemoglobin 32 pg (25-35) Mean Corpuscular Hemoglobin Concent 35 g/dL (31-37) Red Cell Distribution Width 15.6 % (11.5-14.5) Platelet Count 172 x10^3/uL (140-400) Neutrophils (%) (Auto) 78 % (31-73) Lymphocytes (%) (Auto) 9 % (24-48) Monocytes (%) (Auto) 10 % (0-9) Eosinophils (%) (Auto) 3 % (0-3) Basophils (%) (Auto) 0 % (0-3) Neutrophils # (Auto) 8.1 x10^3uL (1.8-7.7) Lymphocytes # (Auto) 0.9 x10^3/uL (1.0-4.8) Monocytes # (Auto) 1.0 x10^3/uL (0.0-1.1) Eosinophils # (Auto) 0.3 x10^3/uL (0.0-0.7) Basophils # (Auto) 0.0 x10^3/uL (0.0-0.2) Sodium Level 140 mmol/L (136-145) Potassium Level 3.4 mmol/L (3.5-5.1) Chloride Level 103 mmol/L (98-107) Carbon Dioxide Level 29 mmol/L (21-32) Anion Gap 8 (6-14) Blood Urea Nitrogen 27 mg/dL (8-26) Creatinine 1.2 mg/dL (0.7-1.3) Estimated GFR (Cockcroft-Gault) 61.1 Glucose Level 151 mg/dL (70-99) Calcium Level 9.6 mg/dL (8.5-10.1) Test 05/10/17 07:18 05/10/17 13:14 Glucose (Fingerstick) 142 mg/dL (70-99) 210 mg/dL (70-99) Review of Systems Review of Systems denies 14 pt reviewed Assessment and Plan Assessmemt and Plan Problems Medical Problems: (1) Anemia Status: Acute (2) Syncope Status: Acute Problems: Comment Review of Relevant I have reviewed the following items lauryn (where applicable) has been applied. Labs Laboratory Tests Test 05/08/17 16:36 05/08/17 20:32 05/09/17 04:05 05/09/17 07:50 Glucose (Fingerstick) 210 mg/dL (70-99) 257 mg/dL (70-99) 166 mg/dL (70-99) White Blood Count 9.0 x10^3/uL (4.0-11.0) Red Blood Count 2.92 x10^6/uL (4.30-5.70) Hemoglobin 9.2 g/dL (13.0-17.5) Hematocrit 26.9 % (39.0-53.0) Mean Corpuscular Volume 92 fL (79-100) Mean Corpuscular Hemoglobin 31 pg (25-35) Mean Corpuscular Hemoglobin Concent 34 g/dL (31-37) Red Cell Distribution Width 16.0 % (11.5-14.5) Platelet Count 165 x10^3/uL (140-400) Neutrophils (%) (Auto) 75 % (31-73) Lymphocytes (%) (Auto) 12 % (24-48) Monocytes (%) (Auto) 9 % (0-9) Eosinophils (%) (Auto) 4 % (0-3) Basophils (%) (Auto) 1 % (0-3) Neutrophils # (Auto) 6.8 x10^3uL (1.8-7.7) Lymphocytes # (Auto) 1.0 x10^3/uL (1.0-4.8) Monocytes # (Auto) 0.8 x10^3/uL (0.0-1.1) Eosinophils # (Auto) 0.4 x10^3/uL (0.0-0.7) Basophils # (Auto) 0.0 x10^3/uL (0.0-0.2) Sodium Level 141 mmol/L (136-145) Potassium Level 3.7 mmol/L (3.5-5.1) Chloride Level 103 mmol/L (98-107) Carbon Dioxide Level 31 mmol/L (21-32) Anion Gap 7 (6-14) Blood Urea Nitrogen 29 mg/dL (8-26) Creatinine 1.2 mg/dL (0.7-1.3) Estimated GFR (Cockcroft-Gault) 61.1 Glucose Level 172 mg/dL (70-99) Calcium Level 9.5 mg/dL (8.5-10.1) Test 05/09/17 11:27 05/09/17 17:54 05/09/17 19:48 05/09/17 20:15 Glucose (Fingerstick) 259 mg/dL (70-99) 218 mg/dL (70-99) 213 mg/dL (70-99) 194 mg/dL (70-99) Test 05/10/17 04:50 05/10/17 07:18 05/10/17 13:14 White Blood Count 10.3 x10^3/uL (4.0-11.0) Red Blood Count 2.74 x10^6/uL (4.30-5.70) Hemoglobin 8.8 g/dL (13.0-17.5) Hematocrit 25.3 % (39.0-53.0) Mean Corpuscular Volume 92 fL (79-100) Mean Corpuscular Hemoglobin 32 pg (25-35) Mean Corpuscular Hemoglobin Concent 35 g/dL (31-37) Red Cell Distribution Width 15.6 % (11.5-14.5) Platelet Count 172 x10^3/uL (140-400) Neutrophils (%) (Auto) 78 % (31-73) Lymphocytes (%) (Auto) 9 % (24-48) Monocytes (%) (Auto) 10 % (0-9) Eosinophils (%) (Auto) 3 % (0-3) Basophils (%) (Auto) 0 % (0-3) Neutrophils # (Auto) 8.1 x10^3uL (1.8-7.7) Lymphocytes # (Auto) 0.9 x10^3/uL (1.0-4.8) Monocytes # (Auto) 1.0 x10^3/uL (0.0-1.1) Eosinophils # (Auto) 0.3 x10^3/uL (0.0-0.7) Basophils # (Auto) 0.0 x10^3/uL (0.0-0.2) Sodium Level 140 mmol/L (136-145) Potassium Level 3.4 mmol/L (3.5-5.1) Chloride Level 103 mmol/L (98-107) Carbon Dioxide Level 29 mmol/L (21-32) Anion Gap 8 (6-14) Blood Urea Nitrogen 27 mg/dL (8-26) Creatinine 1.2 mg/dL (0.7-1.3) Estimated GFR (Cockcroft-Gault) 61.1 Glucose Level 151 mg/dL (70-99) Calcium Level 9.6 mg/dL (8.5-10.1) Glucose (Fingerstick) 142 mg/dL (70-99) 210 mg/dL (70-99) Laboratory Tests Test 05/09/17 17:54 05/09/17 19:48 05/09/17 20:15 05/10/17 04:50 Glucose (Fingerstick) 218 mg/dL (70-99) 213 mg/dL (70-99) 194 mg/dL (70-99) White Blood Count 10.3 x10^3/uL (4.0-11.0) Red Blood Count 2.74 x10^6/uL (4.30-5.70) Hemoglobin 8.8 g/dL (13.0-17.5) Hematocrit 25.3 % (39.0-53.0) Mean Corpuscular Volume 92 fL (79-100) Mean Corpuscular Hemoglobin 32 pg (25-35) Mean Corpuscular Hemoglobin Concent 35 g/dL (31-37) Red Cell Distribution Width 15.6 % (11.5-14.5) Platelet Count 172 x10^3/uL (140-400) Neutrophils (%) (Auto) 78 % (31-73) Lymphocytes (%) (Auto) 9 % (24-48) Monocytes (%) (Auto) 10 % (0-9) Eosinophils (%) (Auto) 3 % (0-3) Basophils (%) (Auto) 0 % (0-3) Neutrophils # (Auto) 8.1 x10^3uL (1.8-7.7) Lymphocytes # (Auto) 0.9 x10^3/uL (1.0-4.8) Monocytes # (Auto) 1.0 x10^3/uL (0.0-1.1) Eosinophils # (Auto) 0.3 x10^3/uL (0.0-0.7) Basophils # (Auto) 0.0 x10^3/uL (0.0-0.2) Sodium Level 140 mmol/L (136-145) Potassium Level 3.4 mmol/L (3.5-5.1) Chloride Level 103 mmol/L (98-107) Carbon Dioxide Level 29 mmol/L (21-32) Anion Gap 8 (6-14) Blood Urea Nitrogen 27 mg/dL (8-26) Creatinine 1.2 mg/dL (0.7-1.3) Estimated GFR (Cockcroft-Gault) 61.1 Glucose Level 151 mg/dL (70-99) Calcium Level 9.6 mg/dL (8.5-10.1) Test 05/10/17 07:18 05/10/17 13:14 Glucose (Fingerstick) 142 mg/dL (70-99) 210 mg/dL (70-99) Microbiology 05/03/17 Anaerobic/Aerobic Culture - Final, Complete 05/03/17 Anaerobic Culture Result 1 (LIONEL) - Final, Complete 05/03/17 Aerobic Culture - Final, Complete 05/03/17 Aerobic Culture Result 1 (LIONEL) - Final, Complete 05/03/17 Aerobic Culture Result 2 (LIONEL) - Final, Complete 05/03/17 Antimicrobic Susceptibility - Final, Complete Medications Current Medications Sodium Chloride 1,000 ml @ 999 mls/hr Q1H1M IV Last administered on 00:02; Start 04/29/17 at 15:28; Stop 04/30/17 at 02:42; Status DC Aspirin (Omkar Aspirin) 325 mg DAILY PO Last administered on 05/01/17 08:32; Start 04/30/17 at 09:00; Stop 05/03/17 at 08:39; Status DC Atorvastatin Calcium (Lipitor) 20 mg QHS PO Last administered on 05/09/17 20: 18; Start 04/29/17 at 21:00 Celecoxib (CeleBREX) 200 mg BID PO Last administered on 05/02/17 21:27; Start 04/29/17 at 21:00; Stop 05/03/17 at 08:39; Status DC Vitamin D (Vitamin D3) 1,000 unit DAILY PO Last administered on 05/10/17 08: 07; Start 04/30/17 at 09:00 Clopidogrel Bisulfate (Plavix) 75 mg DAILY PO Last administered on 05/01/17 08:33; Start 04/30/17 at 09:00; Stop 05/02/17 at 12:02; Status DC Docusate Sodium (Colace) 100 mg DAILY PO Last administered on 05/07/17 07:57 ; Start 04/30/17 at 09:00 Fentanyl (Duragesic 75mcg/ Hr Patch) 1 patch Q3DAYS TD Last administered on 08:24; Start 04/30/17 at 09:00 Acetaminophen/ Hydrocodone Bitart (Lortab 7.5/325) 1 tab PRN Q6HRS PRN PO MODERATE PAIN Last administered on 04/29/17 21:25; Start 04/29/17 at 18:00; Stop 04/29/17 at 22:47; Status DC Losartan Potassium (Cozaar) 50 mg DAILY PO ; Start 04/30/17 at 09:00; Stop at 09:00; Status DC Metformin HCl (Glucophage) 500 mg BIDWMEALS PO Last administered on 05/10/17 08:08; Start 04/30/17 at 08:00 Pantoprazole Sodium (Protonix) 40 mg DAILYAC PO Last administered on 08:08; Start 04/30/17 at 07:30 Piperacillin/ Tazobactam/ Dextrose (Zosyn 3.375gm Premix) 3.375 gm Q6HRS IV ; Start 04/30/17 at 00:00; Status Cancel Tamsulosin HCl (Flomax) 0.4 mg BID PO Last administered on 05/10/17 08:06; Start 04/29/17 at 21:00 Tamsulosin HCl (Flomax) 0.4 mg HS PO ; Start 04/29/17 at 21:00; Status UNV Citalopram Hydrobromide (CeleXA) 40 mg DAILY PO Last administered on 08:06; Start 04/30/17 at 09:00 Gabapentin (Neurontin) 300 mg BID PO Last administered on 05/10/17 08:20; Start 04/29/17 at 21:00 Insulin Aspart (NovoLOG) 15 units TIDAC SQ Last administered on 05/05/17 12: 08; Start 04/30/17 at 07:30; Stop 05/05/17 at 17:16; Status DC Insulin Detemir (Levemir) 22 units QHS SQ Last administered on 04/29/17 21:26 ; Start 04/29/17 at 21:00; Stop 04/30/17 at 08:32; Status DC Labetalol HCl (Normodyne) 20 mg Q2HR PRN IVP hypertension; Start 04/29/17 at 18:00 Piperacillin Sod/ Tazobactam Sod 4.5 gm/Dextrose 100 ml @ 200 mls/hr 1X ONCE IV ; Start 04/29/17 at 18:15; Stop 04/29/17 at 18:44; Status UNV Piperacillin Sod/ Tazobactam Sod (Zosyn) 4.5 gm 1X ONCE IVP Last administered on 04/29/17 18:57; Start 04/29/17 at 18:30; Stop 04/29/17 at 18:31; Status DC Piperacillin Sod/ Tazobactam Sod (Zosyn) 3.375 gm Q6HRS IVP Last administered on 05/10/17 13:20; Start 04/30/17 at 00:00 Hydromorphone HCl (Dilaudid) 1 mg 1X ONCE IV Last administered on 04/29/17 22:55; Start 04/29/17 at 22:45; Stop 04/29/17 at 22:46; Status DC Acetaminophen/ Hydrocodone Bitart (Lortab 7.5/325) 2 tab PRN Q6HRS PRN PO MODERATE - SEVERE PAIN Last administered on 05/01/17 20:30; Start 04/29/17 at 23:00 Hydromorphone HCl (Dilaudid) 1 mg PRN Q4HRS PRN IVP PAIN; Start 04/29/17 at 23 :00; Stop 04/30/17 at 08:32; Status DC Insulin Detemir (Levemir) 25 units DAILY08 SQ Last administered on 05/01/17 08:39; Start 04/30/17 at 09:00; Stop 05/01/17 at 17:01; Status DC Losartan Potassium (Cozaar) 100 mg DAILY PO Last administered on 05/10/17 08: 07; Start 04/30/17 at 09:00 Lactobacillus Rhamnosus (Culturelle) 1 cap BID PO Last administered on 08:06; Start 05/01/17 at 21:00 Insulin Detemir (Levemir) 35 units DAILY08 SQ Last administered on 05/02/17 08:08; Start 05/02/17 at 08:00; Stop 05/02/17 at 11:55; Status DC Insulin Aspart (NovoLOG) 18 units 1X ONCE SQ Last administered on 05/01/17 22:46; Start 05/01/17 at 22:45; Stop 05/01/17 at 22:46; Status DC Albuterol Sulfate (Ventolin Neb Soln) 2.5 mg PRN Q4HRS PRN NEB SHORTNESS OF BREATH Last administered on 05/09/17 05:22; Start 05/02/17 at 10:00 Insulin Detemir (Levemir) 45 units DAILY08 SQ Last administered on 05/07/17 08:07; Start 05/02/17 at 13:00; Stop 05/07/17 at 14:01; Status DC Acetaminophen/ Hydrocodone Bitart (Lortab 5/325) 1 tab PRN Q4HRS PRN PO MILD PAIN Last administered on 05/05/17 15:50; Start 05/03/17 at 08:45 Insulin Aspart (NovoLOG) 3 units 1X ONCE SQ Last administered on 05/03/17 09 :09; Start 05/03/17 at 09:15; Stop 05/03/17 at 09:16; Status DC Fentanyl Citrate (Fentanyl 2ml Vial) 100 mcg STK-MED ONCE .ROUTE ; Start at 14:55; Stop 05/03/17 at 14:56; Status DC Midazolam HCl (Versed) 2 mg STK-MED ONCE .ROUTE ; Start 05/03/17 at 14:55; Stop 05/03/17 at 14:56; Status DC Propofol 20 ml @ As Directed STK-MED ONCE IV ; Start 05/03/17 at 15:18; Stop 05/03/17 at 15:19; Status DC Dexamethasone Sodium Phosphate (Decadron) 20 mg STK-MED ONCE .ROUTE ; Start at 15:18; Stop 05/03/17 at 15:19; Status DC Famotidine (Pepcid Vial) 20 mg STK-MED ONCE .ROUTE ; Start 05/03/17 at 15:18; Stop 05/03/17 at 15:19; Status DC Lidocaine HCl (Lidocaine Pf 2% Vial) 5 ml STK-MED ONCE .ROUTE ; Start 05/03/17 at 15:18; Stop 05/03/17 at 15:19; Status DC Ondansetron HCl (Zofran) 4 mg STK-MED ONCE .ROUTE ; Start 05/03/17 at 15:18; Stop 05/03/17 at 15:19; Status DC Phenylephrine HCl 1 mg STK-MED ONCE IV ; Start 05/03/17 at 15:41; Stop at 15:42; Status DC Ephedrine Sulfate (Akovaz) 50 mg STK-MED ONCE .ROUTE ; Start 05/03/17 at 15:53 ; Stop 05/03/17 at 15:54; Status DC Sevoflurane (Ultane) 30 ml STK-MED ONCE IH ; Start 05/03/17 at 16:02; Stop at 16:03; Status DC Insulin Aspart (NovoLOG VIAL) 3 unit 1X PACU PRN SQ SEE COMMENTS Last administered on 05/03/17 16:59; Start 05/03/17 at 16:45; Stop 05/05/17 at 15 :17; Status DC Midazolam HCl (Versed) 2 mg PRN 1X PRN IV PRIOR TO PROCEDURE; Start 05/03/17 at 18:30; Stop 05/04/17 at 06:00; Status DC Sodium Chloride 1,000 ml @ 125 mls/hr Q8H IV Last administered on 05/04/17 02:16; Start 05/03/17 at 18:30; Stop 05/04/17 at 06:00; Status DC Lidocaine HCl (Xylocaine-Mpf 1% Vial) 2 ml 1X PRN PRN ID IV START; Start 05/03 at 18:30; Stop 05/04/17 at 06:00; Status DC Insulin Detemir (Levemir) 20 units QHS SQ Last administered on 05/04/17 21:04 ; Start 05/04/17 at 21:00; Stop 05/06/17 at 08:02; Status DC Insulin Aspart (NovoLOG) 20 units TIDAC SQ Last administered on 05/10/17 13: 26; Start 05/05/17 at 17:15 Insulin Detemir (Levemir) 30 units 1X ONCE SQ ; Start 05/05/17 at 17:15; Stop 05/05/17 at 17:40; Status DC Insulin Detemir (Levemir) 30 units 1X ONCE SQ Last administered on 05/05/17 22:04; Start 05/05/17 at 21:00; Stop 05/05/17 at 21:01; Status DC Insulin Detemir (Levemir) 25 units QHS SQ Last administered on 05/06/17 19:41 ; Start 05/06/17 at 21:00; Stop 05/07/17 at 14:01; Status DC Insulin Detemir (Levemir) 60 units DAILY08 SQ Last administered on 05/10/17 08:17; Start 05/08/17 at 08:00 Insulin Detemir (Levemir) 32 units QHS SQ Last administered on 05/09/17 20:25 ; Start 05/07/17 at 21:00 Amlodipine Besylate (Norvasc) 5 mg DAILY PO Last administered on 05/10/17 08: 08; Start 05/08/17 at 09:30 Daptomycin 890 mg/ Sodium Chloride 50 ml @ 100 mls/hr Q24H IV Last administered on 05/09/17 20:17; Start 05/08/17 at 20:00 Active Scripts Active Hydrocodone-Apap 7.5-325 (Hydrocodone Bit/Acetaminophen) 1 Each Tablet 1 Tab PO PRN Q6HRS PRN FENTANYL 50mcg/hr (Fentanyl) 1 Each Patch.td72 1 Patch TP Q3DAYS Reported Tamsulosin Hcl 0.4 Mg Cap.er.24h 1 Cap PO DAILY Zosyn 3.375 Gm Galaxy Bag (Irmsitznqolp-Fhtd-Pjixdjnx,Iso) 3.375 Gm/50 Ml Froz.piggy 3.375 Gm IV Q6HRS Novolog (Insulin Aspart) 100 Unit/1 Ml Cartridge 15 Unit SQ TIDAC Pantoprazole Sodium 40 Mg Tablet.dr 40 Mg PO DAILY Levemir (Insulin Detemir) 100 Unit/1 Ml Vial 22 Unit SQ HS FENTANYL 75mcg/hr (Fentanyl) 1 Each Patch.td72 1 Patch TP Q3DAYS Colace (Docusate Sodium) 100 Mg Capsule 1 Cap PO DAILY Aspirin 325 Mg Tablet 1 Tab PO DAILY Vitamin D3 (Cholecalciferol (Vitamin D3)) 1,000 Unit Tablet 1 Tab PO DAILY Losartan Potassium 50 Mg Tablet 50 Mg PO DAILY Gabapentin 300 Mg Capsule 300 Mg PO BID Celebrex (Celecoxib) 200 Mg Capsule 200 Mg PO BID 30 Days Citalopram Hbr (Citalopram Hydrobromide) 40 Mg Tablet 40 Mg PO DAILY Lipitor (Atorvastatin Calcium) 20 Mg Tablet 20 Mg PO QHS Flomax (Tamsulosin Hcl) 0.4 Mg Cap.er.24h 0.4 Mg PO HS Metformin Hcl 500 Mg Tablet 500 Mg PO BID Plavix (Clopidogrel Bisulfate) 75 Mg Tablet 75 Mg PO DAILY Vitals/I & O Vital Sign - Last 24 Hours 05/09/17 05/09/17 05/09/17 05/09/17 15:00 19:00 20:55 22:49 Temp 97.9 98.4 98.0 97.9 98.4 98.0 Pulse 88 88 68 Resp 22 17 16 B/P (MAP) 146/76 (99) 150/77 (101) 139/69 (92) Pulse Ox 98 95 96 O2 Delivery Room Air Room Air Room Air Room Air 05/10/17 05/10/17 05/10/17 05/10/17 03:00 07:00 08:07 08:08 Temp 98.3 98.6 98.3 98.6 Pulse 93 91 91 91 Resp 16 20 B/P (MAP) 162/88 (112) 155/86 (109) 155/86 155/86 Pulse Ox 93 92 O2 Delivery Room Air Room Air 05/10/17 08:15 O2 Delivery Room Air Intake and Output 05/09/17 05/09/17 05/10/17 15:00 23:00 07:00 Intake Total 1080 ml 320 ml 120 ml Output Total 600 ml 400 ml 400 ml Balance 480 ml -80 ml -280 ml MARINA GREGG MD May 10, 2017 13:47
[2017-05-10 14:33] VITALS: BP 128/68
[2017-05-10 19:00] VITALS: BP 128/69
[2017-05-10] MEDS: DAPTOMYCIN IV SCH (20:27)
[2017-05-10] MEDS: ATORVASTATIN CALCIUM 20 MG TABLET PO SCH (20:27)
[2017-05-10] MEDS: NORMAL SALINE IV SCH (20:27)
[2017-05-10 22:31] VITALS: BP 142/61
[2017-05-11 02:50] VITALS: BP 141/80
[2017-05-11] MEDS: PIPERACILLIN/TAZO IV Push 3.375 GM VIAL. IVP SCH ×2 (05:35→13:11)
[2017-05-11 06:20] LABS: BASO # 0.1 x10^3/uL (0.0-0.2); BASO % 1 % (0-3); EOS % 4 % (0-3); HEMATOCRIT 25.5 % (39.0-53.0); HEMOGLOBIN 8.6 g/dL (13.0-17.5); LYMPH % 11 % (24-48); MEAN CORPUSCULAR HEMOGLOBIN 31 pg (25-35); MEAN CORPUSCULAR HGB CONC 34 g/dL (31-37); MEAN CORPUSCULAR VOLUME 93 fL (79-100); MONO % 9 % (0-9); NEUT % 75 % (31-73); PLATELET COUNT 165 x10^3/uL (140-400); RED BLOOD COUNT 2.75 x10^6/uL (4.30-5.70); WHITE BLOOD COUNT 9.3 x10^3/uL (4.0-11.0)
[2017-05-11 06:47] LABS: CALCIUM 9.8 mg/dL (8.5-10.1); CREATININE 1.2 mg/dL (0.7-1.3); GFR 61.1; POTASSIUM 3.8 mmol/L (3.5-5.1)
[2017-05-11 07:25] VITALS: BP 141/80
[2017-05-11] MEDS: TAMSULOSIN 0.4 MG CAP.ER.24H. PO SCH (08:31)
[2017-05-11] MEDS: LOSARTAN POTASSIUM 50 MG TABLET. PO SCH (08:31)
[2017-05-11] MEDS: CHOLECALCIFEROL (VITAMIN D3) 1,000 UNIT TABLET PO SCH (08:31)
[2017-05-11] MEDS: DOCUSATE SODIUM 100 MG CAPSULE. PO SCH (08:31)
[2017-05-11] MEDS: amLODIPine BESYLATE 5 MG TABLET PO SCH (08:31)
[2017-05-11] MEDS: PANTOPRAZOLE 40 MG TABLET.DR. PO SCH (08:31)
[2017-05-11] MEDS: GABAPENTIN 300 MG CAPSULE. PO SCH (08:31)
[2017-05-11] MEDS: CITALOPRAM 20 MG TABLET. PO SCH (08:31)
--- NOTE | 2017-05-11 08:35 | RAD ---
Portable left foot, 3 views, 05/10/2017: History: Nonhealing wound in calcaneal region Comparison is made to left foot radiographs from 02/02/2017 as well as ankle radiographs from 04/23/2017. Radiopacities compatible with bandages overlie the ankle region. An intramedullary zhang remains in place in the distal tibia extending through the talus into the calcaneus. One horizontally oriented screw remains in place at the level of the talus. The other screw previously seen extending longitudinally through the calcaneus has been removed. There is a destructive process involving the inferior aspect of the calcaneus, not present on 02/02/2017. This has progressed since 04/23/2017 at which time a smaller bony defect is partially visualized in retrospect. The appearance suggests osteomyelitis. There is extensive patchy bony demineralization. There are moderate scattered degenerative changes. Scattered arterial calcifications are present. There is diffuse soft tissue swelling about the foot. IMPRESSION: 1. Mid calcaneal bony destruction compatible with osteomyelitis. 2. Moderate scattered degenerative and postsurgical changes.
[2017-05-11] MEDS: INSULIN ASPART 300 UNITS/3 ML INSULN.PEN SQ SCH ×2 (08:37→13:37)
[2017-05-11] MEDS: INSULIN DETEMIR 300 UNITS/3 ML INSULN.PEN. SQ SCH (08:37)
[2017-05-11] MEDS: metFORMIN 500 MG TABLET PO SCH (08:38)
--- NOTE | 2017-05-11 11:31 | PDOC3 ---
Discharge Summary Visit Information Date of Admission: Apr 29, 2017 Date of Discharge: May 11, 2017 Admitting Diagnosis Comment: 1. L LE cellulitis: cont zosyn as per ID service 2. L LE fx: external hardware removed 2 weeks ago, internal hardware removal and debridement on 05/04. bone nonhealing (fx in December). wound vac, hyperbaric O2 as per wound care team. amputation recommended, pt not agreeable 3. Anemia: chronic, did receive PRBC x 3 prior to surgery. 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 now stable. 4. Syncope POA: poss vasovagal or related to anemia. no obvious cardiac source. 5. HTN: well controlled with med adjustment 6. DM2: poorly controlled (chronic). insulin resistant; now on bid levemir dosing, increase dose 7. CAD: no acute issues. cont 2ary prevention meds 8. Hx CVA 9. Hx severe BRYCE with HD requirement: mild BRYCE at admit, prob vasomotor. monitor with IVF, PO fluids 10. morbid obesity, BMI 46. w/ moderately severe malnutrition, serum albumin 2.8. dietary teaching 11. Dyspnea: not hypoxic. prob obesity driven hypoventilation 12. Long toe nails Final Diagnosis Problems Medical Problems: (1) Anemia Status: Acute (2) Syncope Status: Acute Brief Hospital Course Allergies Allergies Coded Allergies Type Severity Reaction Last Updated Verified morphine Allergy Intermediate 02/19/17 Yes I S O L A T I O N *CONTACT* Allergy Unknown 05/10/17 Yes Vital Signs Vital Signs Date Time Temp Pulse Resp B/P (MAP) Pulse Ox O2 Delivery O2 Flow Rate FiO2 05/11/17 08:31 78 141/80 05/11/17 07:25 97.9 18 90 Room Air 97.9 05/11/17 02:50 2.0 Lab Results Laboratory Tests Test 05/09/17 17:54 05/09/17 19:48 05/09/17 20:15 05/10/17 04:50 Glucose (Fingerstick) 218 mg/dL (70-99) 213 mg/dL (70-99) 194 mg/dL (70-99) White Blood Count 10.3 x10^3/uL (4.0-11.0) Red Blood Count 2.74 x10^6/uL (4.30-5.70) Hemoglobin 8.8 g/dL (13.0-17.5) Hematocrit 25.3 % (39.0-53.0) Mean Corpuscular Volume 92 fL (79-100) Mean Corpuscular Hemoglobin 32 pg (25-35) Mean Corpuscular Hemoglobin Concent 35 g/dL (31-37) Red Cell Distribution Width 15.6 % (11.5-14.5) Platelet Count 172 x10^3/uL (140-400) Neutrophils (%) (Auto) 78 % (31-73) Lymphocytes (%) (Auto) 9 % (24-48) Monocytes (%) (Auto) 10 % (0-9) Eosinophils (%) (Auto) 3 % (0-3) Basophils (%) (Auto) 0 % (0-3) Neutrophils # (Auto) 8.1 x10^3uL (1.8-7.7) Lymphocytes # (Auto) 0.9 x10^3/uL (1.0-4.8) Monocytes # (Auto) 1.0 x10^3/uL (0.0-1.1) Eosinophils # (Auto) 0.3 x10^3/uL (0.0-0.7) Basophils # (Auto) 0.0 x10^3/uL (0.0-0.2) Sodium Level 140 mmol/L (136-145) Potassium Level 3.4 mmol/L (3.5-5.1) Chloride Level 103 mmol/L (98-107) Carbon Dioxide Level 29 mmol/L (21-32) Anion Gap 8 (6-14) Blood Urea Nitrogen 27 mg/dL (8-26) Creatinine 1.2 mg/dL (0.7-1.3) Estimated GFR (Cockcroft-Gault) 61.1 Glucose Level 151 mg/dL (70-99) Calcium Level 9.6 mg/dL (8.5-10.1) Test 05/10/17 07:18 05/10/17 13:14 05/10/17 16:09 05/10/17 20:16 Glucose (Fingerstick) 142 mg/dL (70-99) 210 mg/dL (70-99) 168 mg/dL (70-99) 202 mg/dL (70-99) Test 05/11/17 05:00 05/11/17 06:48 White Blood Count 9.3 x10^3/uL (4.0-11.0) Red Blood Count 2.75 x10^6/uL (4.30-5.70) Hemoglobin 8.6 g/dL (13.0-17.5) Hematocrit 25.5 % (39.0-53.0) Mean Corpuscular Volume 93 fL (79-100) Mean Corpuscular Hemoglobin 31 pg (25-35) Mean Corpuscular Hemoglobin Concent 34 g/dL (31-37) Red Cell Distribution Width 16.0 % (11.5-14.5) Platelet Count 165 x10^3/uL (140-400) Neutrophils (%) (Auto) 75 % (31-73) Lymphocytes (%) (Auto) 11 % (24-48) Monocytes (%) (Auto) 9 % (0-9) Eosinophils (%) (Auto) 4 % (0-3) Basophils (%) (Auto) 1 % (0-3) Neutrophils # (Auto) 7.0 x10^3uL (1.8-7.7) Lymphocytes # (Auto) 1.0 x10^3/uL (1.0-4.8) Monocytes # (Auto) 0.9 x10^3/uL (0.0-1.1) Eosinophils # (Auto) 0.3 x10^3/uL (0.0-0.7) Basophils # (Auto) 0.1 x10^3/uL (0.0-0.2) Sodium Level 142 mmol/L (136-145) Potassium Level 3.8 mmol/L (3.5-5.1) Chloride Level 104 mmol/L (98-107) Carbon Dioxide Level 29 mmol/L (21-32) Anion Gap 9 (6-14) Blood Urea Nitrogen 29 mg/dL (8-26) Creatinine 1.2 mg/dL (0.7-1.3) Estimated GFR (Cockcroft-Gault) 61.1 Glucose Level 184 mg/dL (70-99) Calcium Level 9.8 mg/dL (8.5-10.1) Glucose (Fingerstick) 158 mg/dL (70-99) Laboratory Tests Test 05/10/17 13:14 05/10/17 16:09 05/10/17 20:16 11/28/17 05:00 Glucose (Fingerstick) 210 mg/dL (70-99) 168 mg/dL (70-99) 202 mg/dL (70-99) White Blood Count 9.3 x10^3/uL (4.0-11.0) Red Blood Count 2.75 x10^6/uL (4.30-5.70) Hemoglobin 8.6 g/dL (13.0-17.5) Hematocrit 25.5 % (39.0-53.0) Mean Corpuscular Volume 93 fL (79-100) Mean Corpuscular Hemoglobin 31 pg (25-35) Mean Corpuscular Hemoglobin Concent 34 g/dL (31-37) Red Cell Distribution Width 16.0 % (11.5-14.5) Platelet Count 165 x10^3/uL (140-400) Neutrophils (%) (Auto) 75 % (31-73) Lymphocytes (%) (Auto) 11 % (24-48) Monocytes (%) (Auto) 9 % (0-9) Eosinophils (%) (Auto) 4 % (0-3) Basophils (%) (Auto) 1 % (0-3) Neutrophils # (Auto) 7.0 x10^3uL (1.8-7.7) Lymphocytes # (Auto) 1.0 x10^3/uL (1.0-4.8) Monocytes # (Auto) 0.9 x10^3/uL (0.0-1.1) Eosinophils # (Auto) 0.3 x10^3/uL (0.0-0.7) Basophils # (Auto) 0.1 x10^3/uL (0.0-0.2) Sodium Level 142 mmol/L (136-145) Potassium Level 3.8 mmol/L (3.5-5.1) Chloride Level 104 mmol/L (98-107) Carbon Dioxide Level 29 mmol/L (21-32) Anion Gap 9 (6-14) Blood Urea Nitrogen 29 mg/dL (8-26) Creatinine 1.2 mg/dL (0.7-1.3) Estimated GFR (Cockcroft-Gault) 61.1 Glucose Level 184 mg/dL (70-99) Calcium Level 9.8 mg/dL (8.5-10.1) Test 05/11/17 06:48 Glucose (Fingerstick) 158 mg/dL (70-99) Brief Hospital Course Mr. Soliz is a 62 old male, problems started external fixators on legs, complicated by wound infection,needing re -OR, Pt needs amputation but has been refusing since day 1., HE has been seen by 2 diff ortho ion our hospital, He is actually wanting as third opinion with an ortho in [facility] and he is welcome to do so, In the meantime needs IV abx and wound vac and hyperbaric for total [address] Floyd PLs set up appt with ortho in [facility] for appt ALso wants toe nail clipping COnuslt ID at [facility] for iv abx Seen and examined [facility] staff and Case SW full code Discharge Information Condition at Discharge: Improved, Stable Disposition/Orders: Other (ltac) Scheduled Aspirin (Aspirin), 1 TAB PO DAILY, (Reported) Atorvastatin Calcium (Lipitor), 20 MG PO QHS, (Reported) Celecoxib (Celebrex), 200 MG PO BID, (Reported) Cholecalciferol (Vitamin D3) (Vitamin D3), 1 TAB PO DAILY, (Reported) Citalopram Hydrobromide (Citalopram Hbr), 40 MG PO DAILY, (Reported) Clopidogrel Bisulfate (Plavix), 75 MG PO DAILY, (Reported) Docusate Sodium (Colace), 1 CAP PO DAILY, (Reported) Fentanyl (FENTANYL 75mcg/hr), 1 PATCH TP Q3DAYS, (Reported) Fentanyl (FENTANYL 50mcg/hr), 1 PATCH TP Q3DAYS Gabapentin (Gabapentin), 300 MG PO BID, (Reported) Insulin Aspart (Novolog), 15 UNIT SQ TIDAC, (Reported) Insulin Detemir (Levemir), 22 UNIT SQ HS, (Reported) Losartan Potassium (Losartan Potassium), 50 MG PO DAILY, (Reported) Metformin Hcl (Metformin Hcl), 500 MG PO BID, (Reported) Pantoprazole Sodium (Pantoprazole Sodium), 40 MG PO DAILY, (Reported) Jocogfvwrykv-Vszm-Bkagiear,Iso (Zosyn 3.375 Gm Galaxy Bag), 3.375 GM IV Q6HRS, ( Reported) Tamsulosin Hcl (Flomax), 0.4 MG PO HS, (Reported) Tamsulosin Hcl (Tamsulosin Hcl), 1 CAP PO DAILY, (Reported) Scheduled PRN Hydrocodone Bit/Acetaminophen (Hydrocodone-Apap 7.5-325 ), 1 TAB PO PRN Q6HRS PRN for MODERATE PAIN MARINA GREGG MD May 11, 2017 11:30
[2017-05-11] MEDS: LACTOBACILLUS RHAMNOSUS GG 1 CAPSULE. PO SCH (13:10)
[2017-05-11 13:18] VITALS: BP 127/85
[2017-05-11 15:00] VITALS: BP 136/71
[2017-05-11 16:27] VITALS: BP 136/71
[2017-05-11] MEDS: HYDROcodone/APAP 5/325MG 1 TAB TABLET PO PRN (16:40)
== END 2017-05-11 15:00 | DRG 570 ==
LOC: ER 14:07 → ED HOLD 16:54 → 5 SOUTH 18:54
PROVIDERS: ADMIT Internal Medicine; ATTEND Internal Medicine
PROC: 0JBR0ZZ Excision of Left Foot Subcutaneous Tissue and Fascia, Open Approach (ICD-10-PCS; 2017-05-03)
PROC: 0JBP0ZZ Excision of Left Lower Leg Subcutaneous Tissue and Fascia, Open Approach (ICD-10-PCS; principal; 2017-05-03 12:35)
DX: L03.116 Cellulitis of left lower limb (principal); N18.6 End stage renal disease; E11.22 Type 2 diabetes mellitus with diabetic chronic kidney disease; E11.42 Type 2 diabetes mellitus with diabetic polyneuropathy; L97.424 Non-pressure chronic ulcer of left heel and midfoot with necrosis of bone; I12.0 Hypertensive chronic kidney disease with stage 5 chronic kidney disease or end stage renal disease; Z68.41 Body mass index [BMI] 40.0-44.9, adult; E11.621 Type 2 diabetes mellitus with foot ulcer; E11.622 Type 2 diabetes mellitus with other skin ulcer; E66.01 Morbid (severe) obesity due to excess calories; E88.81 Metabolic syndrome and other insulin resistance; D64.9 Anemia, unspecified; F32.9 Major depressive disorder, single episode, unspecified; M19.90 Unspecified osteoarthritis, unspecified site; E11.65 Type 2 diabetes mellitus with hyperglycemia; E78.00 Pure hypercholesterolemia, unspecified; E78.5 Hyperlipidemia, unspecified; G47.33 Obstructive sleep apnea (adult) (pediatric); I25.10 Atherosclerotic heart disease of native coronary artery without angina pectoris; K21.9 Gastro-esophageal reflux disease without esophagitis; S91.301A Unspecified open wound, right foot, initial encounter; Z79.4 Long term (current) use of insulin; Z79.82 Long term (current) use of aspirin; Z82.49 Family history of ischemic heart disease and other diseases of the circulatory system; Z86.73 Personal history of transient ischemic attack (TIA), and cerebral infarction without residual deficits; Z83.3 Family history of diabetes mellitus; Z90.49 Acquired absence of other specified parts of digestive tract; Z88.5 Allergy status to narcotic agent
CPT/HCPCS: 36415; 36600; 71010; 73630; 80048; 80053; 81001; 82805; 82962; 84443; 84484; 85025; 86850; 86900; 86901; 86920; 87071; 87075; 87186; 87205; 87641; 93005; 94250; 94640; 94760; J0878; J1100; J1170; J1815; J2250; J2370; J2405; J2543; J2704; J3010; J7030; J7613; P9016; S0028; 97110; 97530; 97535; 99285-25; A4461; J2001

== ENCOUNTER 2020-01-13 18:01 | Inpatient (IN) | payer MEDICARE, BC ==
[~2020-01-13] VITALS: Ht 180.3 cm; Wt 126.9 kg
[~2020-01-13 18:01] MED LIST changes: +AMOX1TAB61 PO; +ATOR20TA58 PO; +CITA10TA8 PO; +CYAN500T52 PO; +ESOM20CA PO; -GABA-586 PO; +GABA300C18 PO; +GABA600T7 PO; -HYDR-2762 PO; +HYDR-2765 PO; +INSU100I13 SQ; +LOSA-73 PO; +LOSA100T14 PO; -LOSA50TA6 PO; +METF500T16 PO; -METF500T4 PO; +NIAC-9 PO; -PANT40TA5 PO; +PANT40TA77 PO; +PIOG30TA41 PO; +TRAZ-118 PO
[2020-01-13 18:45] LABS: BASO % 0 % (0-3); EOS # 0.2 x10^3/uL (0.0-0.7); EOS % 2 % (0-3); HEMATOCRIT 31.2 % (39.0-53.0); HEMOGLOBIN 11.1 g/dL (13.0-17.5); LYMPH # 3.1 x10^3/uL (1.0-4.8); LYMPH % 34 % (24-48); MEAN CORPUSCULAR HEMOGLOBIN 32 pg (25-35); MEAN CORPUSCULAR HGB CONC 36 g/dL (31-37); MEAN CORPUSCULAR VOLUME 89 fL (79-100); MONO # 0.4 x10^3/uL (0.0-1.1); MONO % 5 % (0-9); NEUT # 5.4 x10^3/uL (1.8-7.7); NEUT % 59 % (31-73); PLATELET COUNT 144 x10^3/uL (140-400); RED BLOOD COUNT 3.51 x10^6/uL (4.30-5.70); RED CELL DISTRIBUTION WIDTH 14.9 % (11.5-14.5); WHITE BLOOD COUNT 9.1 x10^3/uL (4.0-11.0)
[2020-01-13] MEDS ORDERED: fentaNYL PF VIAL 100 MCG/2 ML VIAL IV PRN (18:45)
[2020-01-13] MEDS ORDERED: IV NORMAL SALINE 1000ML BAG 1,000 ML IV ONE ×4 (18:45→20:45)
[2020-01-13] MEDS ORDERED: MIDAZOLAM HCL/PF 5 MG/5 ML VIAL. IV PRN (18:45)
[2020-01-13 18:55] LABS: PROTHROMBIN TIME PATIENT 14.3 SEC (11.7-14.0)
[2020-01-13] MEDS ORDERED: ETOMIDATE 20 MG/10 ML VIAL. IV ONE ×2 (18:58→19:00)
[2020-01-13] MEDS ORDERED: ROCURONIUM 50 MG/5 ML VIAL. ONE (18:59)
[2020-01-13] MEDS ORDERED: ROCURONIUM 50 MG/5 ML VIAL. IV ONE (19:00)
[2020-01-13 19:09] LABS: ALBUMIN 3.3 g/dL (3.4-5.0); CALCIUM 9.4 mg/dL (8.5-10.1); CREATININE 1.8 mg/dL (0.7-1.3); GFR 37.9; MAGNESIUM 1.7 mg/dL (1.8-2.4); TOTAL BILIRUBIN 0.4 mg/dL (0.2-1.0); TOTAL PROTEIN 6.7 g/dL (6.4-8.2)
[2020-01-13 19:10] LABS: CREATINE KINASE 42 U/L (39-308); POTASSIUM 2.6 mmol/L (3.5-5.1)
[2020-01-13 19:16] LABS: BILIRUBIN,URINE NEGATIVE (NEG); CLARITY,URINE CLEAR; COLOR,URINE YELLOW; NITRITE,URINE NEGATIVE (NEG); PROTEIN,URINE NEGATIVE (NEG-TRACE); UROBILINOGEN,URINE 0.2 mg/dL (0.2 mg/dL)
--- NOTE | 2020-01-13 19:17 | PHYS DOC ---
Past Medical History Past Medical History: Cancer, CVA, Depression, Diabetes-Type II, GERD, High Cholesterol, Hypertension, Other Additional Past Medical Histor: charcoit foot, NEUROPATHY, SLEEP APNEA Past Medical History Limited secondary to altered mental status Past Surgical History: Cholecystectomy, Other Additional Past Surgical Histo: right foot surgery, hemmorhoid surgery, non- descended testicle, hernia, BKA Past Surgical History Limited secondary to altered mental status Smoking Status: Never Smoker Alcohol Use: None Drug Use: None Social History Limited secondary to altered mental status General Adult EDM: Chief Complaint: ALTERED MENTAL STATUS HPI: HPI: Patient is a 65 year old male presents via EMS with report of altered mental status. Patient lives at home with spouse who also have several medical problems. EMS reports neighbor found patient "face down" in his bathroom with altered mental status. EMS reports last known well at 1600. Patient with history of DM. EMS reports blood sugar on scene [id number]. Upon arrival patient started to vomit. History of present illness limited due to altered mental status. Review of Systems: Review of Systems: Review of systems limited secondary to altered mental status Current Medications: Current Medications Medications (Trade) Dose Ordered Sig/Serenity Start Time Stop Time Status Last Admin Dose Admin Chlorhexidine Gluconate (Peridex) 15 ml BID 01/13/20 21:00 UNV Etomidate (Amidate) 20 mg 1X ONCE 01/13/20 19:00 01/13/20 19:01 UNV Fentanyl Citrate (Fentanyl 2ml Vial) 50 mcg PRN Q1HR PRN 01/13/20 18:45 UNV Midazolam HCl (Versed) 5 mg Q1HR PRN 01/13/20 18:45 01/14/20 18:44 UNV Rocuronium [place] (Zemuron) 50 mg 1X ONCE 01/13/20 19:00 01/13/20 19:01 UNV Sodium Chloride 1,000 ml @ 1,000 mls/hr 1X ONCE 01/13/20 18:45 01/13/20 19:44 UNV 01/13/20 18:35 1,000 MLS/HR Allergies: Allergies: Allergies Coded Allergies Type Severity Reaction Last Updated Verified morphine Allergy Intermediate 02/19/17 Yes I S O L A T I O N *CONTACT* Allergy Unknown 05/10/17 Yes Physical Exam: PE: Constitutional: Well developed, obese, pale HENT: Normocephalic, atraumatic, right nasal trumpet in place from EMS Eyes: Pupils 5mm sluggish, conjunctiva normal, no discharge Neck: Supple, C-collar placed upon arrival Lungs & Thorax: Tachypnea, diminished breath sounds Abdomen: Soft, no tenderness, obese Skin: Warm, dry, pale Extremities: No deformity, left BKA, no edema Neurologic: GCS 7 (eye 2, verbal 2, motor 3), obtunded Psychologic: Limited, judgment abnormal Current Patient Data: Labs: Laboratory Tests Test 01/13/20 18:07 01/13/20 18:20 Glucose (Fingerstick) 339 mg/dL (70-99) H White Blood Count 9.1 x10^3/uL (4.0-11.0) Red Blood Count 3.51 x10^6/uL (4.30-5.70) L Hemoglobin 11.1 g/dL (13.0-17.5) L Hematocrit 31.2 % (39.0-53.0) L Mean Corpuscular Volume 89 fL (79-100) Mean Corpuscular Hemoglobin 32 pg (25-35) Mean Corpuscular Hemoglobin Concent 36 g/dL (31-37) Red Cell Distribution Width 14.9 % (11.5-14.5) H Platelet Count 144 x10^3/uL (140-400) Neutrophils (%) (Auto) 59 % (31-73) Lymphocytes (%) (Auto) 34 % (24-48) Monocytes (%) (Auto) 5 % (0-9) Eosinophils (%) (Auto) 2 % (0-3) Basophils (%) (Auto) 0 % (0-3) Neutrophils # (Auto) 5.4 x10^3/uL (1.8-7.7) Lymphocytes # (Auto) 3.1 x10^3/uL (1.0-4.8) Monocytes # (Auto) 0.4 x10^3/uL (0.0-1.1) Eosinophils # (Auto) 0.2 x10^3/uL (0.0-0.7) Basophils # (Auto) 0.0 x10^3/uL (0.0-0.2) Prothrombin Time 14.3 SEC (11.7-14.0) H Prothrombin Time INR 1.2 (0.8-1.1) H Activated Partial Thromboplast Time 25 SEC (24-38) Sodium Level 138 mmol/L (136-145) Potassium Level 2.6 mmol/L (3.5-5.1) *L Chloride Level 101 mmol/L (98-107) Carbon Dioxide Level 21 mmol/L (21-32) Anion Gap 16 (6-14) H Blood Urea Nitrogen 34 mg/dL (8-26) H Creatinine 1.8 mg/dL (0.7-1.3) H Estimated GFR (Cockcroft-Gault) 37.9 BUN/Creatinine Ratio 19 (6-20) Glucose Level 311 mg/dL (70-99) H Calcium Level 9.4 mg/dL (8.5-10.1) Magnesium Level 1.7 mg/dL (1.8-2.4) L Total Bilirubin 0.4 mg/dL (0.2-1.0) Aspartate Amino Transferase (AST) 11 U/L (15-37) L Alanine Aminotransferase (ALT) 25 U/L (16-63) Alkaline Phosphatase 87 U/L (46-116) Ammonia 15 mcmol/L (11-34) Creatine Kinase 42 U/L (39-308) Creatine Kinase MB (Mass) 1.8 ng/mL (0.0-3.6) Creatine Kinase MB Relative Index % (0-4) Troponin I Quantitative < 0.017 ng/mL (0.000-0.055) WG-Jkj-D-Type Natriuretic Peptide 179 pg/mL (0-124) H Total Protein 6.7 g/dL (6.4-8.2) Albumin 3.3 g/dL (3.4-5.0) L Albumin/Globulin Ratio 1.0 (1.0-1.7) Lipase 344 U/L (73-393) Ethyl Alcohol Level < 10 mg/dL (0-10) Laboratory Tests 01/13/20 18:20 Laboratory Tests 01/13/20 18:20 Vital Signs: Vital Signs Date Time Temp Pulse Resp B/P (MAP) Pulse Ox O2 Delivery O2 Flow Rate FiO2 01/13/20 18:30 100 Ventilator EKG: EKG: @1810 NSR at 96bpm, NO ST elevation, QRS 86ms, QT/QTc 408/516ms Radiology/Procedures: Radiology/Procedures: PROCEDURE: PORTABLE CHEST 1V AP chest. HISTORY: Altered mental status, intubated AP view was taken of the chest. Endotracheal tube is in good position. NG tube extends into the abdomen. Heart is mildly enlarged. The aorta is tortuous. There is mild vascular congestion or slight interstitial prominence versus poor inspiration. Patient's taken a poor inspiration. There are no confluent infiltrates. The patient is rotated to the right. IMPRESSION: 1. Poor inspiration. 2. Mild crowding of the vasculature versus mild interstitial prominence or vascular congestion. 3. Endotracheal tube and NG tube appear in good position. Electronically signed by: Tommy Gordon MD (01/13/2020 7:16 PM) [facility] PROCEDURE: CT HEAD AND CERVICAL SPINE WO CT brain without contrast, CT cervical spine without contrast HISTORY: Altered mental status, intubated CT brain CT scan of brain was done without contrast. There is a mucous retention cyst in the left maxillary antrum. There is mucosal thickening in the ethmoid sinuses and left sphenoid sinus. There is no skull fracture. Mastoids are normally aerated. There is no intracranial hemorrhage or subdural hematoma. Ventricles are normal in size. There is no mass or shift of the midline. IMPRESSION: 1. Mild mucosal thickening in the sinuses. 2. No intracranial hemorrhage or acute CVA noted. End impression CT cervical spine Axial CT images were obtained to the cervical spine. Sagittal and coronal reconstructed images were reviewed. There is no acute fracture. Endotracheal tube stops at the level aortic arch. NG tube is noted in the esophagus. There is mild motion artifact. There is degenerative disc disease and spurring at C5-6 and C6-7. IMPRESSION: 1. Degenerative spondylosis in the lower cervical spine. 2. No acute C-spine fracture. PQRS Compliance Statement: One or more of the following individualized dose reduction techniques were utilized for this examination: 1. Automated exposure control 2. Adjustment of the mA and/or kV according to patient size 3. Use of iterative reconstruction technique Electronically signed by: Tommy Gordon MD (01/13/2020 8:27 PM) [facility] PROCEDURE: CHEST AP ONLY Study: CR CHEST AP ONLY Indication: Right IJ placement. Comparison: 01/13/2020 at 1855 hours Findings: Interval placement of a right IJ central venous catheter with the tip projecting within the superior vena cava. Enteric tube is again noted with the tip beyond the inferior field of view. Endotracheal tube tip terminates at the level of the clavicles. Unchanged prominence of the cardiomediastinal silhouette. No pneumothorax or newly seen airspace consolidation or layering effusion. Impression: Right IJ with the tip projecting within the superior vena cava. Additional support devices are unchanged. No newly seen abnormality of the chest. Electronically signed by: EZEQUIEL CHILDRESS MD (01/13/2020 10:33 PM) [id number] Course & Med Decision Making: Course & Med Decision Making Pertinent Labs and Imaging studies reviewed. (See chart for details) Patient presents via EMS with altered mental status after being found "face down" by neighbor. GCS 7. Patient started to vomit soon after arrival. Concern for c-spine. C-spine precautions in place and patient immediately suctioned and placed on side. Concern for possible aspiration. Patient requiring intubation to protect airway. RSI performed and ETT placed. CXR with good position of ETT. EKG stable. Labs obtained and posted to chart. Hypokalemia noted and addressed. Lactic acid elevated. Hypomagnesemia addressed. Acute renal insufficiency noted. Ammonia and acetone WNL. Hyperglycemia addressed. Patient also continued to have hypotension. Patient meeting septic shock criteria. IVF bolusing utilized. Empiric antibiotics given. Pressors initiated. CT head/cervical spine without acute process. C-collar cleared. Central line placed to RIJ and XR confirmed good placement. Patient requiring admission for further evaluation and treatment. Discussed with Dr. Oneal (hospitalist) who is in agreement with admission. Silvia Disclaimer: Silvia Disclaimer: This electronic medical record was generated, in whole or in part, using a voice recognition dictation system. Departure Departure Impression: Primary Impression: Septic shock Additional Impressions: Altered mental status Qualified Codes: R41.82 - Altered mental status, unspecified Aspiration pneumonia Qualified Codes: J69.0 - Pneumonitis due to inhalation of food and vomit Hyperglycemia Hypomagnesemia Acute renal insufficiency Disposition: 09 ADMITTED INPATIENT Admitting Physician: ANDREW (Jm) Condition: GUARDED Referrals: TEE BENAVIDES MD (PCP) Justicifation of Admission Dx: Justifications for Admission: Justification of Admission Dx: Yes Aspiration Pneumonia: Hemodynamic Instability Sepsis: Altered Mental Status Altered Mental Status: Altered Mental Status Central Line Central Line : Central Line Lumen: triple Central Line Procedure: sterile drapes applied, sterile dressing applied Central Line Postion: internal jugular (R) Anesthesia: Lidocaine cc's of anesthesia: 2 Complications: none Central Line Post Position: sutured, good blood return, position confirmed w/ CXR Progress Emergent consent obtained. Time out performed. Hand hygiene utilized. Sterile technique utilized. Sterile gown and gloves donned. Sterile dressing applied after ChloraPrep placement. Bedside ultrasound utilized with good visualization of RIJ. Triple lumen catheter placed over wire via Seldinger technique. Catheter secured in place and sterile dressing applied. All three lumens with good drawback and easily flushes. Patient tolerated well and without di fficulty. XR confirmed good placement/position. Intubation Intubation : Intubation Method: orotracheal Tube Size (cm): 8.0 Breath Sounds after Intubation: equal Intubation Complications: no complications Post Intubation Xray: Yes Progress Emergent consent obtained. Time out performed. Hand hygiene utilized. RSI performed after supplemental O2 placed on patient with NRB at 15L. Etomidate 20mg and Rocuronium 50mg IVP given. C-spine precautions in placed. 8.0 cuffed ETT placed by video glidescope and marked 25cm at teeth. Patient noted to have secretions and scant vomitus noted in oropharynx upon initial visualization which was suctioned with Yankauer suction tip. Patient tolerated procedure well. Good fogging in the tube noted as well as positive end-tidal CO2 color change noted. Chest x-ray confirmed placement. Critical Care Time Critical care time was 30 minutes which includes time at bedside, spent in discussion of patient's care with specialists and/or family members, with interpretation of laboratory and/or radiological studies and is exclusive of procedures. Date and Time of Reassessment Date: Jan 13, 2020 Time: 20:00 Fluid Challenge Is the fluid challenge complet: No IBW Target Volume Used: Yes BMI > 30: Yes Vital Signs Vital Signs: Vital Signs Date Time Temp Pulse Resp B/P (MAP) Pulse Ox O2 Delivery O2 Flow Rate FiO2 01/13/20 18:30 100 Ventilator Temperature Source: Rectal Respirations Respiratory Effort: Mechanical ventilation Respiratory Pattern: Normal Cardiovascular Pulse Rhythm: Regular Heart: Nml rate, reg. rhythm Lung Sounds Breath Sounds: Clear, Coarse Capillary Refil Capillary Refill: Rt Hand < 3 seconds Peripheral Pulse Pulse Location: Radial Pulse Strength: Normal (2+) Pulse Assessment Method: Palpation Integumentary Skin: Warm, Dry Skin Moisture: Dry Skin Turgor: Normal Skin Color: warm, dry, pallor Fingernail Color: WNDARRYL MURDOCK DO Jan 13, 2020 19:17
[2020-01-13 19:21] LABS: BACTERIA,URINE 0 /HPF (0-FEW); RBC,URINE 0 /HPF (0-2); WBC,URINE 0 /HPF (0-4)
[2020-01-13 19:22] LABS: BARBITURATES NEG (NEG); BENZODIAZEPINES NEG (NEG); CANNABINOIDS NEG (NEG); COCAINE NEG (NEG); METHADONE NEG (NEG); OPIATES NEG (NEG); PHENCYCLIDINE NEG (NEG)
[2020-01-13 19:23] LABS: AMPHETAMINE/METHAMPHETAMINE NEG (NEG)
[2020-01-13] MEDS ORDERED: INSULIN REGULAR 100 UNIT/ML 3ML VIAL. SQ ONE (19:45)
[2020-01-13] MEDS ORDERED: NOREPINEPHRINE VIAL 8 MG in IV DEXTROSE 5% 250 ML IV ONE (19:45)
[2020-01-13] MEDS ORDERED: PIPERACILLIN/TAZOBACTAM 4.5 GM in IV NORMAL SALINE 100ML 100 ML IV ONE (19:45)
[2020-01-13] MEDS ORDERED: MAGNESIUM SULFATE 2GM 50 ML IV ONE (19:45)
--- NOTE | 2020-01-13 20:30 | RAD ---
CT brain without contrast, CT cervical spine without contrast HISTORY: Altered mental status, intubated CT brain CT scan of brain was done without contrast. There is a mucous retention cyst in the left maxillary antrum. There is mucosal thickening in the ethmoid sinuses and left sphenoid sinus. There is no skull fracture. Mastoids are normally aerated. There is no intracranial hemorrhage or subdural hematoma. Ventricles are normal in size. There is no mass or shift of the midline. IMPRESSION: 1. Mild mucosal thickening in the sinuses. 2. No intracranial hemorrhage or acute CVA noted. End impression CT cervical spine Axial CT images were obtained to the cervical spine. Sagittal and coronal reconstructed images were reviewed. There is no acute fracture. Endotracheal tube stops at the level aortic arch. NG tube is noted in the esophagus. There is mild motion artifact. There is degenerative disc disease and spurring at C5-6 and C6-7. IMPRESSION: 1. Degenerative spondylosis in the lower cervical spine. 2. No acute C-spine fracture. PQRS Compliance Statement: One or more of the following individualized dose reduction techniques were utilized for this examination: 1. Automated exposure control 2. Adjustment of the mA and/or kV according to patient size 3. Use of iterative reconstruction technique Electronically signed by: Tommy Gordon MD (01/13/2020 8:27 PM) [facility]
[2020-01-13 20:45] LABS: BASE EXCESS COOX -8 mmol/L (-3-3); HCO3 COOX 18 mmol/L (21-28); METHEMOGLOBIN 0.6 % (0.0-1.9); OXYHEMOGLOBIN 97.4 %; PCO2 COOX 39 mmHg (35-46); PO2 COOX 184 mmHg (65-108); SAT O2 COOX 98 % (92-99)
[2020-01-13] MEDS ORDERED: ONDANSETRON PF 4 MG/2 ML VIAL. IV PRN (20:45)
[2020-01-13] MEDS ORDERED: VANCOMYCIN 2 GM in IV NORMAL SALINE 500ML BAG 500 ML IV ONE (21:00)
[2020-01-13 22:30] VITALS: BP 75/46
--- NOTE | 2020-01-13 22:36 | RAD ---
Study: CR CHEST AP ONLY Indication: Right IJ placement. Comparison: 01/13/2020 at 1855 hours Findings: Interval placement of a right IJ central venous catheter with the tip projecting within the superior vena cava. Enteric tube is again noted with the tip beyond the inferior field of view. Endotracheal tube tip terminates at the level of the clavicles. Unchanged prominence of the cardiomediastinal silhouette. No pneumothorax or newly seen airspace consolidation or layering effusion. Impression: Right IJ with the tip projecting within the superior vena cava. Additional support devices are unchanged. No newly seen abnormality of the chest. Electronically signed by: EZEQUIEL CHILDRESS MD (01/13/2020 10:33 PM) [id number]
[2020-01-13 22:45] VITALS: BP 86/51
[2020-01-13] MEDS: POTASSIUM CHLORIDE 10MEQ 100 ML IV SCH ×2 (22:48→23:21)
[2020-01-13 23:00] VITALS: BP 64/49
[2020-01-13] MEDS: MIDAZOLAM 100mg/100ml NS BAG 100 ML IV PRN (23:01)
[2020-01-13 23:15] VITALS: BP 67/43
[2020-01-13] MEDS: CHLORHEXIDINE 0.12% 15 ML MOUTHWASH. MM SCH (23:20)
[2020-01-13] MEDS: DEXTROSE 50% 25 GM / 50ML DISP.SYRIN. IV PRN (23:25)
[2020-01-13 23:30] VITALS: BP 129/60
[2020-01-14] VITALS (25 sets, daily range): BP systolic 72–153; BP diastolic 46–65
[2020-01-14] MEDS: POTASSIUM CHLORIDE 10MEQ 100 ML IV SCH ×2 (00:06→00:34)
[2020-01-14] MEDS: VANCOMYCIN PER PHARMACY MC PRN ×3 (00:15→10:37)
--- NOTE | 2020-01-14 00:15 | NUR ---
Pharmacy Vancomycin Dosing Note S:Consulted to monitor and dose vancomycin started 01/13/20. O:RED MOMIN is a 65 year old M with Sepsis Pneumonia . Height: 5 feet, 11 inches Weight: 127.3 kg [place] Body Weight: 75.30 Adjusted Body Weight: 95.98 Dosing Weight: Actual Other Antibiotics: LABS: Last BUN: 34 Last Creatinine: 1.8 Creatinine Clearance: 55 mL/min Last WBC: 9.1 Last Procalcitonin: Tmax (past 24 hours): Microbiology: I/O: Drug Levels: Last level: on at Last dose given 01/13/20 at 2300 Vancomycin Dosing: Loading Dose: 2000 mg x1 Dosing Weight: Actual Target Trough: 15-20 A: Based on: WT AND CRCL P: 1. Begin Vancomycin 2000 mg IV q24h 2. Follow up Trough level on 01/15/20 at 2230 3. Pharmacy will continue to monitor, follow and adjust therapy as needed. CHANDNI JURADO RPH, 01/14/20 0015 Signed: 01/14/20 at 0015 by CHANDNI JURADO RPH PHA
[2020-01-14] MEDS: DEXTROSE 50% 25 GM / 50ML DISP.SYRIN. IV PRN ×6 (01:30→21:02)
[2020-01-14 01:49] LABS: CREATININE 1.4 mg/dL (0.7-1.3); GFR 50.7; POTASSIUM 3.2 mmol/L (3.5-5.1)
[2020-01-14] MEDS ORDERED: POTASSIUM CHLORIDE 20 MEQ in IV DEXTROSE 5 %-0.45 % NACL 1,000 ML IV SCH (02:00)
--- NOTE | 2020-01-14 02:01 | NUR ---
Pt arrived to ICU room 102 at 2330. Pt brought on bed by ED RN and RT. Pt being bagged with O2 through ET tube during 6x assist transfer to ICU bed. Once in ICU bed, pt placed on ventilator. Pt unresponsive upon admission. Pupils reactive to light. No cough or gag reflux noted. When assessed, pt noted to have low BG. D50 administered per protocol. Pt SBP low in the 70s upon admission. Levophed titrated per protocol. Vital signs now stable. After D50 administration, pt did respond to touch, cough, gag, and was moving his arms for a few minutes. Pt is no longer responsive at this time. Continuing to monitor VS and BG frequently. Critical troponin increase from <0.017 to 0.135 reported to this nurse by the lab at 01:10. Results called to Dr. Oneal. Received order to begin prophylactic Lovenox. Also notified MD of current patient status, BG, and labs. Also received order to start D5 0.45NS with 20 K at 85 mls/hr. Pt is within sight of care team. Will pass on and continue to monitor. Addendum: 01/14/20 at 0550 by ASHLEE REYES RN RN Pt arrived to room at 2230.
[2020-01-14] MEDS: ENOXAPARIN 40 MG/0.4 ML SYRINGE. SQ SCH ×2 (02:26→20:50)
[2020-01-14] MEDS: POTASSIUM CL 20MEQ D5-0.45NACL 1,000 ML IV SCH ×2 (02:30→14:19)
[2020-01-14] MEDS ORDERED: NOREPINEPHRINE VIAL 8 MG in IV DEXTROSE 5% 250 ML IV PRN (02:45)
[2020-01-14 05:16] LABS: HEMATOCRIT 28.1 % (39.0-53.0); HEMOGLOBIN 9.7 g/dL (13.0-17.5); RED BLOOD COUNT 3.12 x10^6/uL (4.30-5.70); RED CELL DISTRIBUTION WIDTH 14.8 % (11.5-14.5); WHITE BLOOD COUNT 15.9 x10^3/uL (4.0-11.0)
[2020-01-14 05:24] LABS: CALCIUM 8.2 mg/dL (8.5-10.1); CREATININE 1.5 mg/dL (0.7-1.3); GFR 46.8; POTASSIUM 3.1 mmol/L (3.5-5.1)
[2020-01-14] MEDS: INSULIN LISPRO 300 UNITS/3 ML VIAL. SQ SCH ×3 (07:47→16:59)
--- NOTE | 2020-01-14 08:05 | PDOC1 ---
History and Physical Date of Admission: Date of Admission DATE: 01/14/20 TIME: 07:54 Chief Complaint: Chief Complain: Found unresponsive History of Present Illness: HPI: This patient is a 65-year-old male who has presented to the hospital before with past medical history of diabetes type 2, depression, dyslipidemia, hypertension, who comes to the hospital due to being found unresponsive by his neighbor. Patient has had suicide attempts in the past. There is possible concerns of empty pill bottles. History is obtained from ED physician charting and chart review. Unable to obtain history from patient as the patient is intubated. Patient is currently not on any sedation. Patient is in the ICU requiring vasopressors and fluid boluses. Patient has received 3 L in the emergency department this time. CT head did not show any acute findings that would can attribute to his neurological exam. Urine drug screen is negative at this time. Past Medical/Surgical History: PMH/PSH: Limited due to mental status Chart reviewed: Past Medical History: Cancer, CVA, Depression, Diabetes-Type II, GERD, High Cholesterol, Hypertension, Charcot foot, NEUROPATHY, SLEEP APNEA Past Surgical History: Cholecystectomy, right foot surgery, hemmorhoidectomy, non-descended testicle, hernia, BKA Allergies: Allergies: Coded Allergies: morphine (Verified Allergy, Intermediate, 02/19/17) causes hallucinations I S O L A T I O N *CONTACT* (Verified Allergy, Unknown, 05/10/17) mrsa Family History: Family History: Unable to obtain due to mental status Social History: Social History: Limited due to mental status Smoking Status: Never Smoker Alcohol Use: None Drug Use: None Current Medications: Current Medications Current Medications Sodium Chloride 1,000 ml @ 1,000 mls/hr 1X ONCE IV Last administered on 01/13/20at 18:20; Start 01/13/20 at 18:45; Stop 01/13/20 at 19:44; Status DC Sodium Chloride 1,000 ml @ 1,000 mls/hr 1X ONCE IV Last administered on 01/13/20at 18:35; Start 01/13/20 at 18:45; Stop 01/13/20 at 19:44; Status DC Fentanyl Citrate (Fentanyl 2ml Vial) 50 mcg PRN Q1HR PRN IV SEE COMMENTS; Start 01/13/20 at 18:45 Chlorhexidine Gluconate (Peridex) 15 ml BID MM Last administered on 01/13/20at 23:20; Start 01/13/20 at 21:00 Midazolam HCl (Versed) 5 mg PRN Q1HR PRN IV AGITATION Last administered on 01/13/20at 19:53; Start 01/13/20 at 18:45 Etomidate (Amidate) 20 mg STK-MED ONCE IV ; Start 01/13/20 at 18:58; Stop 01/13/20 at 18:59; Status DC Rocuronium [place] (Zemuron) 50 mg STK-MED ONCE .ROUTE ; Start 01/13/20 at 18:59; Stop 01/13/20 at 18:59; Status DC Rocuronium [place] (Zemuron) 50 mg 1X ONCE IV Last administered on 01/13/20at 19:52; Start 01/13/20 at 19:00; Stop 01/13/20 at 19:25; Status DC Etomidate (Amidate) 20 mg 1X ONCE IV Last administered on 01/13/20at 19:52; Start 01/13/20 at 19:00; Stop 01/13/20 at 19:25; Status DC Potassium Chloride/Water 100 ml @ 100 mls/hr Q1H IV Last administered on 01/14/20at 00:34; Start 01/13/20 at 19:15; Stop 01/13/20 at 23:14; Status DC Norepinephrine Bitartrate 8 mg/ Dextrose 258 ml @ 24.633 mls/ hr 1X ONCE IV Last administered on 01/13/20at 19:45; Start 01/13/20 at 19:45; Stop 01/14/20 at 06:13; Status DC Piperacillin Sod/ Tazobactam Sod 4.5 gm/Sodium Chloride 100 ml @ 200 mls/hr 1X ONCE IV Last administered on 01/13/20at 19:45; Start 01/13/20 at 19:45; Stop 01/13/20 at 20:14; Status DC Sodium Chloride 1,000 ml @ 1,000 mls/hr 1X ONCE IV Last administered on 01/13/20at 19:45; Start 01/13/20 at 19:45; Stop 01/13/20 at 20:44; Status DC Levofloxacin/ Dextrose 150 ml @ 100 mls/hr 1X ONCE IV Last administered on 01/13/20at 21:05; Start 01/13/20 at 21:00; Stop 01/13/20 at 22:29; Status DC Vancomycin HCl (Vanco Per Pharmacy) 1 each PRN DAILY PRN MC SEE COMMENTS Last administered on 01/14/20at 00:15; Start 01/13/20 at 19:45 Magnesium Sulfate 50 ml @ 25 mls/hr 1X ONCE IV Last administered on 01/14/20at 01:11; Start 01/13/20 at 19:45; Stop 01/13/20 at 21:44; Status DC Insulin Human Regular (HumuLIN R VIAL) 12 unit 1X ONCE SQ Last administered on 01/13/20at 19:45; Start 01/13/20 at 19:45; Stop 01/13/20 at 19:46; Status DC Ondansetron HCl (Zofran) 4 mg PRN Q8HRS PRN IV NAUSEA/VOMITING; Start 01/13/20 at 20:45; Stop 01/14/20 at 20:44 Insulin Human Lispro (HumaLOG) 0-5 UNITS TIDWMEALS SQ ; Start 01/14/20 at 08:00 Dextrose (Dextrose 50%-Water Syringe) 12.5 gm PRN Q15MIN PRN IV SEE COMMENTS Last administered on 01/14/20at 06:51; Start 01/13/20 at 20:45 Sodium Chloride 1,000 ml @ 100 mls/hr 1X ONCE IV Last administered on 01/13/20at 21:10; Start 01/13/20 at 20:45; Stop 01/14/20 at 06:44; Status DC Vancomycin HCl 2 gm/Sodium Chloride 500 ml @ 250 mls/hr 1X ONCE IV Last administered on 01/13/20at 22:59; Start 01/13/20 at 21:00; Stop 01/13/20 at 22:59; Status DC Midazolam HCl 100 ml @ 0 mls/hr CONT PRN IV SEE PROTOCOL Last administered on 01/13/20at 23:01; Start 01/13/20 at 22:15 Vancomycin HCl 2 gm/Sodium Chloride 500 ml @ 250 mls/hr Q24H IV ; Start 01/14/20 at 23:00 Vancomycin HCl (Vancomycin Trough Level) 1 each 1X ONCE MC ; Start 01/15/20 at 22:30; Stop 01/15/20 at 22:31 Enoxaparin Sodium (Lovenox Per Pharmacy Prophylaxis Dosing) 1 each PRN DAILY PRN MC SEE COMMENTS; Start 01/14/20 at 02:00 Potassium Chloride 20 meq/ Dextrose/Sodium Chloride 1,010 ml @ 85 mls/hr [id number] IV ; Start 01/14/20 at 02:00; Status UNV Potassium Chloride/Dextrose/ Sod Cl 1,000 ml @ 85 mls/hr [id number] IV Last administered on 01/14/20at 02:30; Start 01/14/20 at 02:15 Enoxaparin Sodium (Lovenox 40mg Syringe) 40 mg QHS SQ Last administered on 01/14/20at 02:26; Start 01/14/20 at 02:15 Norepinephrine Bitartrate 8 mg/ Dextrose 258 ml @ 22.678 mls/ hr CONT PRN IV PER PROTOCOL Last administered on 01/14/20at 02:42; Start 01/14/20 at 02:45; Stop 01/14/20 at 09:00 Norepinephrine Bitartrate 32 mg/ Dextrose 250 ml @ 5.484 mls/ hr CONT PRN IV SEE I/O RECORD; Start 01/14/20 at 07:45 Active Scripts Active Aspirin 325 Mg Tablet 325 Mg PO [id number] 30 Days Atorvastatin Calcium 20 Mg Tablet 20 Mg PO QHS 30 Days Reported Trazodone Hcl 50 Mg Tablet 1 Tab PO QHS Celexa (Citalopram Hydrobromide) 10 Mg Tablet 1 Tab PO DAILY Lantus Solostar (Insulin Glargine,Hum.rec.anlog) 100 Unit/1 Ml Insuln.pen 65 Unit SQ QHS Gabapentin (Gabapentin) 300 Mg Capsule 300 Mg PO TID Nexium Capsule (Esomeprazole Magnesium) 20 Mg Capsule. 1 Cap PO DAILY Actos (Pioglitazone Hcl) 30 Mg Tablet 30 Mg PO DAILY Metformin Hcl 500 Mg Tablet 500 Mg PO BIDWMEALS ROS: Review of Systems Review of System REVIEW OF SYSTEMS: GENERAL: Denies weakness SKIN: No bruising, hair changes or rashes. EYES: No blurred, double or loss of vision. NOSE AND THROAT: No history of nosebleeds, hoarseness or sore throat. HEART: No history of palpitations, chest pain or shortness of breath on exertion. LUNGS: Denies cough, hemoptysis, wheezing or shortness of breath. GASTROINTESTINAL: Denies changes in appetite, nausea, vomiting, diarrhea or constipation. GENITOURINARY: No history of frequency, urgency, hesitancy or nocturia. NEUROLOGIC: Denies history of numbness, tingling, or tremor. PSYCHIATRIC: No history of panic, anxiety or depression. ENDOCRINE: No history of heat or cold intolerance, polyuria or polydipsia. EXTREMITIES: Denies joint pain, pain on walking or stiffness. Physical Exam: Vital Signs: Vital Signs Date Time Temp Pulse Resp B/P (MAP) Pulse Ox O2 Delivery O2 Flow Rate FiO2 01/14/20 07:29 100 Ventilator 01/14/20 07:00 99 20 94/48 (63) 01/14/20 04:00 97.3 97.3 01/13/20 18:01 15.0 Physcial Exam: GEN: No apparent distress. Intubated HEENT: Normal cephalic, atraumatic, external auditory canals are patent. EYES: PERRLA. Sluggish MUSCULOSKELETAL: Well developed , well nourished, good range of motion HEMATOPOIETIC: No bruising NECK: Supple, no JVD, no thyromegaly was noted LUNGS: Clear to auscultation in all lung sheppard without rhonchi or wheezing HEART: RRR, S!, S2 present. Peripheral pulses intact, no obvious murmurs noted ABDOMEN: Soft, nontender. Positive bowel sounds, no organomegaly, obese EXTREMITIES: Without clubbing, cyanosis, or edema. Pedal pulses intact. Negative Homans sign. Left below knee amputation NEUROLOGIC: Normal speech and tone. A&O x 3, moves all extremities, no obvious focal deficits PSYCHIATRIC: Normal affect, normal mood. Stable SKIN: No ulcerations or rashes, good skin turgor, no jaundice VASCULAR: Good capillary refill, neurovascular bundle appears to be intact Labs: Labs: Laboratory Tests Test 01/13/20 18:07 01/13/20 18:20 01/13/20 18:37 01/13/20 19:08 Glucose (Fingerstick) 339 mg/dL (70-99) White Blood Count 9.1 x10^3/uL (4.0-11.0) Red Blood Count 3.51 x10^6/uL (4.30-5.70) Hemoglobin 11.1 g/dL (13.0-17.5) Hematocrit 31.2 % (39.0-53.0) Mean Corpuscular Volume 89 fL (79-100) Mean Corpuscular Hemoglobin 32 pg (25-35) Mean Corpuscular Hemoglobin Concent 36 g/dL (31-37) Red Cell Distribution Width 14.9 % (11.5-14.5) Platelet Count 144 x10^3/uL (140-400) Neutrophils (%) (Auto) 59 % (31-73) Lymphocytes (%) (Auto) 34 % (24-48) Monocytes (%) (Auto) 5 % (0-9) Eosinophils (%) (Auto) 2 % (0-3) Basophils (%) (Auto) 0 % (0-3) Neutrophils # (Auto) 5.4 x10^3/uL (1.8-7.7) Lymphocytes # (Auto) 3.1 x10^3/uL (1.0-4.8) Monocytes # (Auto) 0.4 x10^3/uL (0.0-1.1) Eosinophils # (Auto) 0.2 x10^3/uL (0.0-0.7) Basophils # (Auto) 0.0 x10^3/uL (0.0-0.2) Prothrombin Time 14.3 SEC (11.7-14.0) Prothromb Time International Ratio 1.2 (0.8-1.1) Activated Partial Thromboplast Time 25 SEC (24-38) Sodium Level 138 mmol/L (136-145) Potassium Level 2.6 mmol/L (3.5-5.1) Chloride Level 101 mmol/L (98-107) Carbon Dioxide Level 21 mmol/L (21-32) Anion Gap 16 (6-14) Blood Urea Nitrogen 34 mg/dL (8-26) Creatinine 1.8 mg/dL (0.7-1.3) Estimated GFR (Cockcroft-Gault) 37.9 BUN/Creatinine Ratio 19 (6-20) Glucose Level 311 mg/dL (70-99) Lactic Acid Level 6.1 mmol/L (0.4-2.0) Calcium Level 9.4 mg/dL (8.5-10.1) Magnesium Level 1.7 mg/dL (1.8-2.4) Total Bilirubin 0.4 mg/dL (0.2-1.0) Aspartate Amino Transf (AST/SGOT) 11 U/L (15-37) Alanine Aminotransferase (ALT/SGPT) 25 U/L (16-63) Alkaline Phosphatase 87 U/L (46-116) Ammonia 15 mcmol/L (11-34) Creatine Kinase 42 U/L (39-308) Creatine Kinase MB (Mass) 1.8 ng/mL (0.0-3.6) Creatine Kinase MB Relative Index % (0-4) Troponin I Quantitative < 0.017 ng/mL (0.000-0.055) [id number]-Type Natriuretic Peptide 179 pg/mL (0-124) Total Protein 6.7 g/dL (6.4-8.2) Albumin 3.3 g/dL (3.4-5.0) Albumin/Globulin Ratio 1.0 (1.0-1.7) Lipase 344 U/L (73-393) Ethyl Alcohol Level < 10 mg/dL (0-10) Acetone Level Neg (NEG) O2 Saturation 98 % (92-99) Arterial Blood pH 7.29 (7.35-7.45) Arterial Blood pCO2 at Patient Temp 39 mmHg (35-46) Arterial Blood pO2 at Patient Temp 184 mmHg (65-108) Arterial Blood HCO3 18 mmol/L (21-28) Arterial Blood Base Excess -8 mmol/L (-3-3) Oxyhemoglobin 97.4 % Methemoglobin 0.6 % (0.0-1.9) Carbon Monoxide, Quantitative 0.1 % (0.0-1.9) FiO2 100 Urine Collection Type Unknown Urine Color Yellow Urine Clarity Clear Urine pH 5.0 (<5.0-8.0) Urine Specific [place] >=1.030 (1.000-1.030) Urine Protein Negative mg/dL (NEG-TRACE) Urine Glucose (UA) >=1000 mg/dL (NEG) Urine Ketones (Stick) Trace mg/dL (NEG) Urine Blood Negative (NEG) Urine Nitrite Negative (NEG) Urine Bilirubin Negative (NEG) Urine Urobilinogen Dipstick 0.2 mg/dL (0.2 mg/dL) Urine Leukocyte Esterase Negative (NEG) Urine RBC 0 /HPF (0-2) Urine WBC 0 /HPF (0-4) Urine Bacteria 0 /HPF (0-FEW) Urine Opiates Screen Neg (NEG) Urine Methadone Screen Neg (NEG) Urine Barbiturates Neg (NEG) Urine Phencyclidine Screen Neg (NEG) Urine Amphetamine/Methamphetamine Neg (NEG) Urine Benzodiazepines Screen Neg (NEG) Urine Cocaine Screen Neg (NEG) Urine Cannabinoids Screen Neg (NEG) Urine Ethyl Alcohol Neg (NEG) Test 01/13/20 20:59 01/13/20 23:01 01/13/20 23:24 01/13/20 23:37 Glucose (Fingerstick) 138 mg/dL (70-99) 56 mg/dL (70-99) 46 mg/dL (70-99) 114 mg/dL (70-99) Test 01/14/20 00:08 01/14/20 00:20 01/14/20 01:20 01/14/20 01:24 Glucose (Fingerstick) 105 mg/dL (70-99) 65 mg/dL (70-99) Lactic Acid Level < 0.3 mmol/L (0.4-2.0) Troponin I Quantitative 0.135 ng/mL (0.000-0.055) Sodium Level 140 mmol/L (136-145) Potassium Level 3.2 mmol/L (3.5-5.1) Chloride Level 107 mmol/L (98-107) Carbon Dioxide Level 21 mmol/L (21-32) Anion Gap 12 (6-14) Blood Urea Nitrogen 31 mg/dL (8-26) Creatinine 1.4 mg/dL (0.7-1.3) Estimated GFR (Cockcroft-Gault) 50.7 Glucose Level 65 mg/dL (70-99) Calcium Level 8.0 mg/dL (8.5-10.1) Test 01/14/20 01:38 01/14/20 03:07 01/14/20 03:16 01/14/20 04:22 Glucose (Fingerstick) 95 mg/dL (70-99) 67 mg/dL (70-99) 118 mg/dL (70-99) 72 mg/dL (70-99) Test 01/14/20 05:00 01/14/20 05:04 01/14/20 06:47 01/14/20 07:46 White Blood Count 15.9 x10^3/uL (4.0-11.0) Red Blood Count 3.12 x10^6/uL (4.30-5.70) Hemoglobin 9.7 g/dL (13.0-17.5) Hematocrit 28.1 % (39.0-53.0) Mean Corpuscular Volume 90 fL (79-100) Mean Corpuscular Hemoglobin 31 pg (25-35) Mean Corpuscular Hemoglobin Concent 35 g/dL (31-37) Red Cell Distribution Width 14.8 % (11.5-14.5) Platelet Count 175 x10^3/uL (140-400) Sodium Level 139 mmol/L (136-145) Potassium Level 3.1 mmol/L (3.5-5.1) Chloride Level 106 mmol/L (98-107) Carbon Dioxide Level 23 mmol/L (21-32) Anion Gap 10 (6-14) Blood Urea Nitrogen 31 mg/dL (8-26) Creatinine 1.5 mg/dL (0.7-1.3) Estimated GFR (Cockcroft-Gault) 46.8 Glucose Level 76 mg/dL (70-99) Calcium Level 8.2 mg/dL (8.5-10.1) Troponin I Quantitative 0.072 ng/mL (0.000-0.055) Glucose (Fingerstick) 74 mg/dL (70-99) 56 mg/dL (70-99) 81 mg/dL (70-99) Laboratory Tests Test 01/13/20 18:07 01/13/20 18:20 01/13/20 18:37 01/13/20 19:08 Glucose (Fingerstick) 339 mg/dL (70-99) White Blood Count 9.1 x10^3/uL (4.0-11.0) Red Blood Count 3.51 x10^6/uL (4.30-5.70) Hemoglobin 11.1 g/dL (13.0-17.5) Hematocrit 31.2 % (39.0-53.0) Mean Corpuscular Volume 89 fL (79-100) Mean Corpuscular Hemoglobin 32 pg (25-35) Mean Corpuscular Hemoglobin Concent 36 g/dL (31-37) Red Cell Distribution Width 14.9 % (11.5-14.5) Platelet Count 144 x10^3/uL (140-400) Neutrophils (%) (Auto) 59 % (31-73) Lymphocytes (%) (Auto) 34 % (24-48) Monocytes (%) (Auto) 5 % (0-9) Eosinophils (%) (Auto) 2 % (0-3) Basophils (%) (Auto) 0 % (0-3) Neutrophils # (Auto) 5.4 x10^3/uL (1.8-7.7) Lymphocytes # (Auto) 3.1 x10^3/uL (1.0-4.8) Monocytes # (Auto) 0.4 x10^3/uL (0.0-1.1) Eosinophils # (Auto) 0.2 x10^3/uL (0.0-0.7) Basophils # (Auto) 0.0 x10^3/uL (0.0-0.2) Prothrombin Time 14.3 SEC (11.7-14.0) Prothromb Time International Ratio 1.2 (0.8-1.1) Activated Partial Thromboplast Time 25 SEC (24-38) Sodium Level 138 mmol/L (136-145) Potassium Level 2.6 mmol/L (3.5-5.1) Chloride Level 101 mmol/L (98-107) Carbon Dioxide Level 21 mmol/L (21-32) Anion Gap 16 (6-14) Blood Urea Nitrogen 34 mg/dL (8-26) Creatinine 1.8 mg/dL (0.7-1.3) Estimated GFR (Cockcroft-Gault) 37.9 BUN/Creatinine Ratio 19 (6-20) Glucose Level 311 mg/dL (70-99) Lactic Acid Level 6.1 mmol/L (0.4-2.0) Calcium Level 9.4 mg/dL (8.5-10.1) Magnesium Level 1.7 mg/dL (1.8-2.4) Total Bilirubin 0.4 mg/dL (0.2-1.0) Aspartate Amino Transf (AST/SGOT) 11 U/L (15-37) Alanine Aminotransferase (ALT/SGPT) 25 U/L (16-63) Alkaline Phosphatase 87 U/L (46-116) Ammonia 15 mcmol/L (11-34) Creatine Kinase 42 U/L (39-308) Creatine Kinase MB (Mass) 1.8 ng/mL (0.0-3.6) Creatine Kinase MB Relative Index % (0-4) Troponin I Quantitative < 0.017 ng/mL (0.000-0.055) EY-[id number]-[id number]-Type Natriuretic Peptide 179 pg/mL (0-124) Total Protein 6.7 g/dL (6.4-8.2) Albumin 3.3 g/dL (3.4-5.0) Albumin/Globulin Ratio 1.0 (1.0-1.7) Lipase 344 U/L (73-393) Ethyl Alcohol Level < 10 mg/dL (0-10) Acetone Level Neg (NEG) O2 Saturation 98 % (92-99) Arterial Blood pH 7.29 (7.35-7.45) Arterial Blood pCO2 at Patient Temp 39 mmHg (35-46) Arterial Blood pO2 at Patient Temp 184 mmHg (65-108) Arterial Blood HCO3 18 mmol/L (21-28) Arterial Blood Base Excess -8 mmol/L (-3-3) Oxyhemoglobin 97.4 % Methemoglobin 0.6 % (0.0-1.9) Carbon Monoxide, Quantitative 0.1 % (0.0-1.9) FiO2 100 Urine Collection Type Unknown Urine Color Yellow Urine Clarity Clear Urine pH 5.0 (<5.0-8.0) Urine Specific [place] >=1.030 (1.000-1.030) Urine Protein Negative mg/dL (NEG-TRACE) Urine Glucose (UA) >=1000 mg/dL (NEG) Urine Ketones (Stick) Trace mg/dL (NEG) Urine Blood Negative (NEG) Urine Nitrite Negative (NEG) Urine Bilirubin Negative (NEG) Urine Urobilinogen Dipstick 0.2 mg/dL (0.2 mg/dL) Urine Leukocyte Esterase Negative (NEG) Urine RBC 0 /HPF (0-2) Urine WBC 0 /HPF (0-4) Urine Bacteria 0 /HPF (0-FEW) Urine Opiates Screen Neg (NEG) Urine Methadone Screen Neg (NEG) Urine Barbiturates Neg (NEG) Urine Phencyclidine Screen Neg (NEG) Urine Amphetamine/Methamphetamine Neg (NEG) Urine Benzodiazepines Screen Neg (NEG) Urine Cocaine Screen Neg (NEG) Urine Cannabinoids Screen Neg (NEG) Urine Ethyl Alcohol Neg (NEG) Test 8/1/20 20:59 01/13/20 23:01 01/13/20 23:24 01/13/20 23:37 Glucose (Fingerstick) 138 mg/dL (70-99) 56 mg/dL (70-99) 46 mg/dL (70-99) 114 mg/dL (70-99) Test 01/14/20 00:08 01/14/20 00:20 01/14/20 01:20 01/14/20 01:24 Glucose (Fingerstick) 105 mg/dL (70-99) 65 mg/dL (70-99) Lactic Acid Level < 0.3 mmol/L (0.4-2.0) Troponin I Quantitative 0.135 ng/mL (0.000-0.055) Sodium Level 140 mmol/L (136-145) Potassium Level 3.2 mmol/L (3.5-5.1) Chloride Level 107 mmol/L (98-107) Carbon Dioxide Level 21 mmol/L (21-32) Anion Gap 12 (6-14) Blood Urea Nitrogen 31 mg/dL (8-26) Creatinine 1.4 mg/dL (0.7-1.3) Estimated GFR (Cockcroft-Gault) 50.7 Glucose Level 65 mg/dL (70-99) Calcium Level 8.0 mg/dL (8.5-10.1) Test 01/14/20 01:38 01/14/20 03:07 01/14/20 03:16 01/14/20 04:22 Glucose (Fingerstick) 95 mg/dL (70-99) 67 mg/dL (70-99) 118 mg/dL (70-99) 72 mg/dL (70-99) Test 01/14/20 05:00 01/14/20 05:04 01/14/20 06:47 01/14/20 07:46 White Blood Count 15.9 x10^3/uL (4.0-11.0) Red Blood Count 3.12 x10^6/uL (4.30-5.70) Hemoglobin 9.7 g/dL (13.0-17.5) Hematocrit 28.1 % (39.0-53.0) Mean Corpuscular Volume 90 fL (79-100) Mean Corpuscular Hemoglobin 31 pg (25-35) Mean Corpuscular Hemoglobin Concent 35 g/dL (31-37) Red Cell Distribution Width 14.8 % (11.5-14.5) Platelet Count 175 x10^3/uL (140-400) Sodium Level 139 mmol/L (136-145) Potassium Level 3.1 mmol/L (3.5-5.1) Chloride Level 106 mmol/L (98-107) Carbon Dioxide Level 23 mmol/L (21-32) Anion Gap 10 (6-14) Blood Urea Nitrogen 31 mg/dL (8-26) Creatinine 1.5 mg/dL (0.7-1.3) Estimated GFR (Cockcroft-Gault) 46.8 Glucose Level 76 mg/dL (70-99) Calcium Level 8.2 mg/dL (8.5-10.1) Troponin I Quantitative 0.072 ng/mL (0.000-0.055) Glucose (Fingerstick) 74 mg/dL (70-99) 56 mg/dL (70-99) 81 mg/dL (70-99) Images: Images All labs, images, and reports were reviewed by me personally Study: CR CHEST AP ONLY Indication: Right IJ placement. Comparison: 01/13/2020 at 1855 hours Findings: Interval placement of a right IJ central venous catheter with the tip projecting within the superior vena cava. Enteric tube is again noted with the tip beyond the inferior field of view. Endotracheal tube tip terminates at the level of the clavicles. Unchanged prominence of the cardiomediastinal silhouette. No pneumothorax or newly seen airspace consolidation or layering effusion. Impression: Right IJ with the tip projecting within the superior vena cava. Additional support devices are unchanged. No newly seen abnormality of the chest. CT brain without contrast, CT cervical spine without contrast HISTORY: Altered mental status, intubated CT brain CT scan of brain was done without contrast. There is a mucous retention cyst in the left maxillary antrum. There is mucosal thickening in the ethmoid sinuses and left sphenoid sinus. There is no skull fracture. Mastoids are normally aerated. There is no intracranial hemorrhage or subdural hematoma. Ventricles are normal in size. There is no mass or shift of the midline. IMPRESSION: 1. Mild mucosal thickening in the sinuses. 2. No intracranial hemorrhage or acute CVA noted. End impression CT cervical spine Axial CT images were obtained to the cervical spine. Sagittal and coronal reconstructed images were reviewed. There is no acute fracture. Endotracheal tube stops at the level aortic arch. NG tube is noted in the esophagus. There is mild motion artifact. There is degenerative disc disease and spurring at C5-6 and C6-7. IMPRESSION: 1. Degenerative spondylosis in the lower cervical spine. 2. No acute C-spine fracture. Assessment/Plan Assessment/Plan Acute metabolic encephalopathy NOS due to infectious versus toxic versus metabolic disturbance Lactic acidosisgap is closed Acute hypoglycemiasuspicion for overdose on p.o. glitazone versus sulfonylureas medications Suicidal attempt Acute electrolyte derangements Acute on chronic renal failure likely due to vasomotor nephropathy Acute hypoxic respiratory failure due to above Ventilator dependence Concern for anoxic brain injury versus encephalopathy Normocytic anemia Troponinemia with no acute ST changes, possible pathological Q waves on inferior limb leads on EKG- likely demand ischemia Admit to ICU Pending neurology consult Pending nephrology consult Pending pulmonary consult Pending cardiology consult Continue Levophed and vasopressor, map goals of 60-65 Pending C-peptide level Glucagon 1 mg as needed to maintain glucose range of 140-180 Accu-Cheks every 2 hours BMP every 4 hours Continue IV fluids Lovenox for DVT prophylaxis Protonix GI prophylaxis ADA diet Full code Discussed with RN Dispo continue ICU care Total critical care time spent 55 minutes Justicifation of Admission Dx: Justifications for Admission: Justification of Admission Dx: Yes Aspiration Pneumonia: Hemodynamic Instability Sepsis: Altered Mental Status Altered Mental Status: Altered Mental Status ALLY CASTANEDA MD Jan 14, 2020 08:05
[2020-01-14 08:19] LABS: BASE EXCESS ABG -6 mmol/L (-3-3); HCO3 ABG 19 mmol/L (21-28); PCO2 ABG 36 mmHg (35-46); PO2 ABG 108 mmHg (65-108); SAT O2 ABG 97 % (92-99)
[2020-01-14 08:22] LABS: FIO2 ABG 40% VENT
[2020-01-14] MEDS: CHLORHEXIDINE 0.12% 15 ML MOUTHWASH. MM SCH ×2 (08:58→20:50)
[2020-01-14] MEDS ORDERED: VASOPRESSIN 20 UNIT in IV DEXTROSE 5% 100ML 100 ML IV PRN (09:45)
[2020-01-14] MEDS: GLUCAGON,HUMAN RECOMBINANT 1 MG/ML VIAL. IV PRN ×3 (10:09→11:26)
[2020-01-14] MEDS: NOREPINEPHRINE VIAL 32 MG in IV D5W 250ML IV PRN ×2 (10:21→17:43)
[2020-01-14 10:25] LABS: CALCIUM 8.4 mg/dL (8.5-10.1); CREATININE 1.7 mg/dL (0.7-1.3); GFR 40.5; POTASSIUM 3.4 mmol/L (3.5-5.1)
[2020-01-14] MEDS: POTASSIUM CHLORIDE 20MEQ 100 ML IV SCH ×4 (10:33→14:19)
--- NOTE | 2020-01-14 11:25 | EKG ---
[facility] [address] [place] [address] Test Date: 2020-01-14 Test Time: 11:24:27 Pat Name: RED MOMIN Department: Room: 102 1 Gender: M Technical Implementation Lead: TATIANA : 1955 Requested By: ALLY CASTANEDA Order Number: [id number] Reading MD: Measurements Intervals [place] Rate: 123 P: -90 AL: 134 QRS: -43 QRSD: 68 T: 50 QT: 320 QTc: 464 Interpretive Statements SINUS TACHYCARDIA ABNORMAL LEFT AXIS DEVIATION R-S TRANSITION ZONE IN V LEADS DISPLACED TO THE LEFT LOW VOLTAGE QRS(T) CONTOUR ABNORMALITY CONSIDER ANTEROLATERAL MYOCARDIAL DAMAGE CONSISTENT WITH INFERIOR INFARCT PROBABLY OLD ABNORMAL ECG RI6.01 Compared to ECG 07/27/2019 16:07:24 Left-axis deviation now present Low QRS voltage now present Myocardial infarct finding now present Sinus rhythm no longer present
--- NOTE | 2020-01-14 12:07 | PDOC2 ---
CONSULT Date of Consult Date of Consult DATE: 01/14/20 TIME: 11:54 Reason for Consult Reason for Consult: RENAL FAILURE Referring Physician Referring Physician: LEONEL Identification/Chief Complaint Chief Complaint THIS IS A 65 YR OLD WITH ALTERED MS. FOUND DOWN BY NEIGHBOR. CONCERN OF SUICIDE ATTEMPT HE HAS ATTEMPTS IN THE PAST. CONCERNS OF EMPTY PILL BOTTLES. UDS IS NEG. HIGH BG ON ADMIT WITH GLUCOSURIA AND KETONURIA AND MILD MET ACIDOSIS. SINCE THEN HE HAS HAD HYPOGLYCEMIA AND HAS REQUIRED GLUCAGON. HE HAS IN THE PAST USED EXCESSIVE INSULIN IN HIS SUICIDE ATTEMPTS. CR OF 1.7. HAS PROB MILD CKD STAGE 2 WITH BASELINE CR OF ABOUT 1.2 ON AVG. CKD DUE TO DM II. CURRENTLY INTUBATED AND UNRESPONSIVE DESPITE NO SEDATION, APPEARS TO BE TRIGGERING THE VENT SOME ON AC MODE VENTILATION. BRAIN IMAGING NEG FOR ACUTE FINDINGS. CXRAY CONCERNING FOR SOME VASCULAR CONGESTION. OTHER PERTINENT LABS INCLUDED LEUCOCYTOSIS AND ACIDEMIA ON ADMIT WHICH HAS CORRECT. CURRENTLY NEEDING PRESSORS. MILD INCREASE IN CARDIAC ENZYMES NOTED Source Source: Chart review History of Present Illness Reason for Visit: ABOVE Past Medical History Cardiovascular: HTN, Hyperlipidemia Pulmonary: Other CENTRAL NERVOUS SYSTEM: CVA, Periperal neuropathy GI: GERD Heme/Onc: Anemia NOS Hepatobiliary: No pertinent hx Psych: Depression Musculoskeletal: Osteoarthritis Rheumatologic: No pertinent hx Infectious disease: No pertinent hx Renal/: Chronic renal insuff, Acute renal failure Endocrine: Diabetes Past Surgical History Past Surgical History: Cholecystectomy, Hernia Repair Family History Family History: Diabetes Social History ALCOHOL: none Drugs: None Lives: with Family Current Problem List Problem List Problems Medical Problems: (1) Acute renal insufficiency Status: Acute (2) Altered mental status Status: Acute (3) Aspiration pneumonia Status: Acute (4) Hyperglycemia Status: Acute (5) Hypomagnesemia Status: Acute (6) Septic shock Status: Acute Current Medications Current Medications Current Medications Sodium Chloride 1,000 ml @ 1,000 mls/hr 1X ONCE IV Last administered on 01/13/20at 18:20; Start 01/13/20 at 18:45; Stop 01/13/20 at 19:44; Status DC Sodium Chloride 1,000 ml @ 1,000 mls/hr 1X ONCE IV Last administered on 01/13/20at 18:35; Start 01/13/20 at 18:45; Stop 01/13/20 at 19:44; Status DC Fentanyl Citrate (Fentanyl 2ml Vial) 50 mcg PRN Q1HR PRN IV SEE COMMENTS; Start 01/13/20 at 18:45 Chlorhexidine Gluconate (Peridex) 15 ml BID MM Last administered on 01/14/20at 08:58; Start 01/13/20 at 21:00 Midazolam HCl (Versed) 5 mg PRN Q1HR PRN IV AGITATION Last administered on 01/13/20at 19:53; Start 01/13/20 at 18:45 Etomidate (Amidate) 20 mg STK-MED ONCE IV ; Start 01/13/20 at 18:58; Stop 01/13/20 at 18:59; Status DC Rocuronium [place] (Zemuron) 50 mg STK-MED ONCE .ROUTE ; Start 01/13/20 at 18:59; Stop 01/13/20 at 18:59; Status DC Rocuronium [place] (Zemuron) 50 mg 1X ONCE IV Last administered on 01/13/20at 19:52; Start 01/13/20 at 19:00; Stop 01/13/20 at 19:25; Status DC Etomidate (Amidate) 20 mg 1X ONCE IV Last administered on 01/13/20at 19:52; Start 01/13/20 at 19:00; Stop 01/13/20 at 19:25; Status DC Potassium Chloride/Water 100 ml @ 100 mls/hr Q1H IV Last administered on 01/14/20at 00:34; Start 01/13/20 at 19:15; Stop 01/13/20 at 23:14; Status DC Norepinephrine Bitartrate 8 mg/ Dextrose 258 ml @ 24.633 mls/ hr 1X ONCE IV Last administered on 01/13/20at 19:45; Start 01/13/20 at 19:45; Stop 01/14/20 at 06:13; Status DC Piperacillin Sod/ Tazobactam Sod 4.5 gm/Sodium Chloride 100 ml @ 200 mls/hr 1X ONCE IV Last administered on 01/13/20at 19:45; Start 01/13/20 at 19:45; Stop at 20:14; Status DC Sodium Chloride 1,000 ml @ 1,000 mls/hr 1X ONCE IV Last administered on 01/13/20at 19:45; Start 01/13/20 at 19:45; Stop 01/13/20 at 20:44; Status DC Levofloxacin/ Dextrose 150 ml @ 100 mls/hr 1X ONCE IV Last administered on 01/13/20at 21:05; Start 01/13/20 at 21:00; Stop 01/13/20 at 22:29; Status DC Vancomycin HCl (Vanco Per Pharmacy) 1 each PRN DAILY PRN MC SEE COMMENTS Last administered on 01/14/20at 10:37; Start 01/13/20 at 19:45 Magnesium Sulfate 50 ml @ 25 mls/hr 1X ONCE IV Last administered on 01/14/20at 01:11; Start 01/13/20 at 19:45; Stop 01/13/20 at 21:44; Status DC Insulin Human Regular (HumuLIN R VIAL) 12 unit 1X ONCE SQ Last administered on 01/13/20at 19:45; Start 01/13/20 at 19:45; Stop 01/13/20 at 19:46; Status DC Ondansetron HCl (Zofran) 4 mg PRN Q8HRS PRN IV NAUSEA/VOMITING; Start 01/13/20 at 20:45; Stop 01/14/20 at 20:44 Insulin Human Lispro (HumaLOG) 0-5 UNITS TIDWMEALS SQ ; Start 01/14/20 at 08:00 Dextrose (Dextrose 50%-Water Syringe) 12.5 gm PRN Q15MIN PRN IV SEE COMMENTS Last administered on 01/14/20at 06:51; Start 01/13/20 at 20:45 Sodium Chloride 1,000 ml @ 100 mls/hr 1X ONCE IV Last administered on 01/13/20at 21:10; Start 01/13/20 at 20:45; Stop 01/14/20 at 06:44; Status DC Vancomycin HCl 2 gm/Sodium Chloride 500 ml @ 250 mls/hr 1X ONCE IV Last administered on 01/13/20at 22:59; Start 01/13/20 at 21:00; Stop 01/13/20 at 22:59; Status DC Midazolam HCl 100 ml @ 0 mls/hr CONT PRN IV SEE PROTOCOL Last administered on 01/13/20at 23:01; Start 01/13/20 at 22:15 Vancomycin HCl 2 gm/Sodium Chloride 500 ml @ 250 mls/hr Q24H IV ; Start 01/14/20 at 23:00 Vancomycin HCl (Vancomycin Trough Level) 1 each 1X ONCE MC ; Start 01/15/20 at 22:30; Stop 01/15/20 at 22:31 Enoxaparin Sodium (Lovenox Per Pharmacy Prophylaxis Dosing) 1 each PRN DAILY PRN MC SEE COMMENTS; Start 01/14/20 at 02:00 Potassium Chloride 20 meq/ Dextrose/Sodium Chloride 1,010 ml @ 85 mls/hr [id number] IV ; Start 01/14/20 at 02:00; Status UNV Potassium Chloride/Dextrose/ Sod Cl 1,000 ml @ 85 mls/hr [id number] IV Last administered on 01/14/20at 02:30; Start 01/14/20 at 02:15 Enoxaparin Sodium (Lovenox 40mg Syringe) 40 mg QHS SQ Last administered on 01/14/20at 02:26; Start 01/14/20 at 02:15 Norepinephrine Bitartrate 8 mg/ Dextrose 258 ml @ 22.678 mls/ hr CONT PRN IV PER PROTOCOL Last administered on 01/14/20at 02:42; Start 01/14/20 at 02:45; Stop 01/14/20 at 09:00; Status DC Norepinephrine Bitartrate 32 mg/ Dextrose 250 ml @ 5.484 mls/ hr CONT PRN IV SEE I/O RECORD Last administered on 01/14/20at 10:21; Start 01/14/20 at 07:45 Glucagon (Glucagen) 1 mg PRN Q15MIN PRN IV LOW BLOOD SUGAR Last administered on 01/14/20at 11:26; Start 01/14/20 at 09:30 Vasopressin 20 unit/Dextrose 101 ml @ 12 mls/hr CONT PRN IV SEE I/O RECORD; Start 01/14/20 at 09:45 Potassium Chloride/Water 100 ml @ 100 mls/hr Q1H IV Last administered on 01/14/20at 10:33; Start 01/14/20 at 11:00; Stop 01/14/20 at 14:59 Vancomycin HCl 1.75 gm/Sodium Chloride 500 ml @ 250 mls/hr Q18H IV ; Start 01/14/20 at 17:00; Status Cancel Active Scripts Active Aspirin 325 Mg Tablet 325 Mg PO [id number] 30 Days Atorvastatin Calcium 20 Mg Tablet 20 Mg PO QHS 30 Days Reported Trazodone Hcl 50 Mg Tablet 1 Tab PO QHS Celexa (Citalopram Hydrobromide) 10 Mg Tablet 1 Tab PO DAILY Lantus Solostar (Insulin Glargine,Hum.rec.anlog) 100 Unit/1 Ml Insuln.pen 65 Unit SQ QHS Gabapentin (Gabapentin) 300 Mg Capsule 300 Mg PO TID Nexium Capsule (Esomeprazole Magnesium) 20 Mg Capsule. 1 Cap PO DAILY Actos (Pioglitazone Hcl) 30 Mg Tablet 30 Mg PO DAILY Metformin Hcl 500 Mg Tablet 500 Mg PO BIDWMEALS Allergies Allergies: Coded Allergies: morphine (Verified Allergy, Intermediate, 02/19/17) causes hallucinations I S O L A T I O N *CONTACT* (Verified Allergy, Unknown, 05/10/17) mrsa ROS Review of System UNABLE TO OBTAIN Physical Exam General: Alert, Cooperative, No acute distress HEENT: PERRLA Lungs: Clear to auscultation Heart: Regular rate Abdomen: Normal bowel sounds Skin: No rashes Neuro: Other (UNRESPONSIVE) Psych/Mental Status: Other (ON THE VENT, UNRESPONSIVE. SLUGGISH BUT RESPONSIVE PUPILS) MUSCULOSKELETAL: No joint tenderness, No swelling (LEFT BKA) Vitals VITALS Vital Signs Date Time Temp Pulse Resp B/P (MAP) Pulse Ox O2 Delivery O2 Flow Rate FiO2 01/14/20 11:00 123 20 118/56 (76) 100 Ventilator 01/14/20 07:54 99.2 99.2 01/13/20 18:01 15.0 Labs Labs Laboratory Tests Test 01/13/20 18:07 01/13/20 18:20 01/13/20 18:37 01/13/20 19:08 Glucose (Fingerstick) 339 mg/dL (70-99) White Blood Count 9.1 x10^3/uL (4.0-11.0) Red Blood Count 3.51 x10^6/uL (4.30-5.70) Hemoglobin 11.1 g/dL (13.0-17.5) Hematocrit 31.2 % (39.0-53.0) Mean Corpuscular Volume 89 fL (79-100) Mean Corpuscular Hemoglobin 32 pg (25-35) Mean Corpuscular Hemoglobin Concent 36 g/dL (31-37) Red Cell Distribution Width 14.9 % (11.5-14.5) Platelet Count 144 x10^3/uL (140-400) Neutrophils (%) (Auto) 59 % (31-73) Lymphocytes (%) (Auto) 34 % (24-48) Monocytes (%) (Auto) 5 % (0-9) Eosinophils (%) (Auto) 2 % (0-3) Basophils (%) (Auto) 0 % (0-3) Neutrophils # (Auto) 5.4 x10^3/uL (1.8-7.7) Lymphocytes # (Auto) 3.1 x10^3/uL (1.0-4.8) Monocytes # (Auto) 0.4 x10^3/uL (0.0-1.1) Eosinophils # (Auto) 0.2 x10^3/uL (0.0-0.7) Basophils # (Auto) 0.0 x10^3/uL (0.0-0.2) Prothrombin Time 14.3 SEC (11.7-14.0) Prothromb Time International Ratio 1.2 (0.8-1.1) Activated Partial Thromboplast Time 25 SEC (24-38) Sodium Level 138 mmol/L (136-145) Potassium Level 2.6 mmol/L (3.5-5.1) Chloride Level 101 mmol/L (98-107) Carbon Dioxide Level 21 mmol/L (21-32) Anion Gap 16 (6-14) Blood Urea Nitrogen 34 mg/dL (8-26) Creatinine 1.8 mg/dL (0.7-1.3) Estimated GFR (Cockcroft-Gault) 37.9 BUN/Creatinine Ratio 19 (6-20) Glucose Level 311 mg/dL (70-99) Lactic Acid Level 6.1 mmol/L (0.4-2.0) Calcium Level 9.4 mg/dL (8.5-10.1) Magnesium Level 1.7 mg/dL (1.8-2.4) Total Bilirubin 0.4 mg/dL (0.2-1.0) Aspartate Amino Transf (AST/SGOT) 11 U/L (15-37) Alanine Aminotransferase (ALT/SGPT) 25 U/L (16-63) Alkaline Phosphatase 87 U/L (46-116) Ammonia 15 mcmol/L (11-34) Creatine Kinase 42 U/L (39-308) Creatine Kinase MB (Mass) 1.8 ng/mL (0.0-3.6) Creatine Kinase MB Relative Index % (0-4) Troponin I Quantitative < 0.017 ng/mL (0.000-0.055) [id number]-Type Natriuretic Peptide 179 pg/mL (0-124) Total Protein 6.7 g/dL (6.4-8.2) Albumin 3.3 g/dL (3.4-5.0) Albumin/Globulin Ratio 1.0 (1.0-1.7) Lipase 344 U/L (73-393) Ethyl Alcohol Level < 10 mg/dL (0-10) Acetone Level Neg (NEG) O2 Saturation 98 % (92-99) Arterial Blood pH 7.29 (7.35-7.45) Arterial Blood pCO2 at Patient Temp 39 mmHg (35-46) Arterial Blood pO2 at Patient Temp 184 mmHg (65-108) Arterial Blood HCO3 18 mmol/L (21-28) Arterial Blood Base Excess -8 mmol/L (-3-3) Oxyhemoglobin 97.4 % Methemoglobin 0.6 % (0.0-1.9) Carbon Monoxide, Quantitative 0.1 % (0.0-1.9) FiO2 100 Urine Collection Type Unknown Urine Color Yellow Urine Clarity Clear Urine pH 5.0 (<5.0-8.0) Urine Specific [place] >=1.030 (1.000-1.030) Urine Protein Negative mg/dL (NEG-TRACE) Urine Glucose (UA) >=1000 mg/dL (NEG) Urine Ketones (Stick) Trace mg/dL (NEG) Urine Blood Negative (NEG) Urine Nitrite Negative (NEG) Urine Bilirubin Negative (NEG) Urine Urobilinogen Dipstick 0.2 mg/dL (0.2 mg/dL) Urine Leukocyte Esterase Negative (NEG) Urine RBC 0 /HPF (0-2) Urine WBC 0 /HPF (0-4) Urine Bacteria 0 /HPF (0-FEW) Urine Opiates Screen Neg (NEG) Urine Methadone Screen Neg (NEG) Urine Barbiturates Neg (NEG) Urine Phencyclidine Screen Neg (NEG) Urine Amphetamine/Methamphetamine Neg (NEG) Urine Benzodiazepines Screen Neg (NEG) Urine Cocaine Screen Neg (NEG) Urine Cannabinoids Screen Neg (NEG) Urine Ethyl Alcohol Neg (NEG) Test 01/13/20 20:59 01/13/20 23:01 01/13/20 23:24 01/13/20 23:37 Glucose (Fingerstick) 138 mg/dL (70-99) 56 mg/dL (70-99) 46 mg/dL (70-99) 114 mg/dL (70-99) Test 01/14/20 00:08 01/14/20 00:20 01/14/20 01:20 01/14/20 01:24 Glucose (Fingerstick) 105 mg/dL (70-99) 65 mg/dL (70-99) Lactic Acid Level < 0.3 mmol/L (0.4-2.0) Troponin I Quantitative 0.135 ng/mL (0.000-0.055) Sodium Level 140 mmol/L (136-145) Potassium Level 3.2 mmol/L (3.5-5.1) Chloride Level 107 mmol/L (98-107) Carbon Dioxide Level 21 mmol/L (21-32) Anion Gap 12 (6-14) Blood Urea Nitrogen 31 mg/dL (8-26) Creatinine 1.4 mg/dL (0.7-1.3) Estimated GFR (Cockcroft-Gault) 50.7 Glucose Level 65 mg/dL (70-99) Calcium Level 8.0 mg/dL (8.5-10.1) Test 01/14/20 01:38 01/14/20 03:07 01/14/20 03:16 01/14/20 04:22 Glucose (Fingerstick) 95 mg/dL (70-99) 67 mg/dL (70-99) 118 mg/dL (70-99) 72 mg/dL (70-99) Test 01/14/20 05:00 01/14/20 05:04 01/14/20 06:47 01/14/20 07:46 White Blood Count 15.9 x10^3/uL (4.0-11.0) Red Blood Count 3.12 x10^6/uL (4.30-5.70) Hemoglobin 9.7 g/dL (13.0-17.5) Hematocrit 28.1 % (39.0-53.0) Mean Corpuscular Volume 90 fL (79-100) Mean Corpuscular Hemoglobin 31 pg (25-35) Mean Corpuscular Hemoglobin Concent 35 g/dL (31-37) Red Cell Distribution Width 14.8 % (11.5-14.5) Platelet Count 175 x10^3/uL (140-400) Sodium Level 139 mmol/L (136-145) Potassium Level 3.1 mmol/L (3.5-5.1) Chloride Level 106 mmol/L (98-107) Carbon Dioxide Level 23 mmol/L (21-32) Anion Gap 10 (6-14) Blood Urea Nitrogen 31 mg/dL (8-26) Creatinine 1.5 mg/dL (0.7-1.3) Estimated GFR (Cockcroft-Gault) 46.8 Glucose Level 76 mg/dL (70-99) Calcium Level 8.2 mg/dL (8.5-10.1) Magnesium Level 2.0 mg/dL (1.8-2.4) Troponin I Quantitative 0.072 ng/mL (0.000-0.055) Glucose (Fingerstick) 74 mg/dL (70-99) 56 mg/dL (70-99) 81 mg/dL (70-99) Test 01/14/20 08:00 01/14/20 08:56 01/14/20 09:52 01/14/20 10:00 O2 Saturation 97 % (92-99) Arterial Blood pH 7.35 (7.35-7.45) Arterial Blood pCO2 at Patient Temp 36 mmHg (35-46) Arterial Blood pO2 at Patient Temp 108 mmHg (65-108) Arterial Blood HCO3 19 mmol/L (21-28) Arterial Blood Base Excess -6 mmol/L (-3-3) FiO2 40% vent Glucose (Fingerstick) 77 mg/dL (70-99) 91 mg/dL (70-99) Sodium Level 139 mmol/L (136-145) Potassium Level 3.4 mmol/L (3.5-5.1) Chloride Level 105 mmol/L (98-107) Carbon Dioxide Level 23 mmol/L (21-32) Anion Gap 11 (6-14) Blood Urea Nitrogen 30 mg/dL (8-26) Creatinine 1.7 mg/dL (0.7-1.3) Estimated GFR (Cockcroft-Gault) 40.5 Glucose Level 93 mg/dL (70-99) Calcium Level 8.4 mg/dL (8.5-10.1) Test 01/14/20 10:36 01/14/20 11:20 Glucose (Fingerstick) 83 mg/dL (70-99) 112 mg/dL (70-99) Laboratory Tests Test 01/13/20 18:07 01/13/20 18:20 01/13/20 18:37 01/13/20 19:08 Glucose (Fingerstick) 339 mg/dL (70-99) White Blood Count 9.1 x10^3/uL (4.0-11.0) Red Blood Count 3.51 x10^6/uL (4.30-5.70) Hemoglobin 11.1 g/dL (13.0-17.5) Hematocrit 31.2 % (39.0-53.0) Mean Corpuscular Volume 89 fL (79-100) Mean Corpuscular Hemoglobin 32 pg (25-35) Mean Corpuscular Hemoglobin Concent 36 g/dL (31-37) Red Cell Distribution Width 14.9 % (11.5-14.5) Platelet Count 144 x10^3/uL (140-400) Neutrophils (%) (Auto) 59 % (31-73) Lymphocytes (%) (Auto) 34 % (24-48) Monocytes (%) (Auto) 5 % (0-9) Eosinophils (%) (Auto) 2 % (0-3) Basophils (%) (Auto) 0 % (0-3) Neutrophils # (Auto) 5.4 x10^3/uL (1.8-7.7) Lymphocytes # (Auto) 3.1 x10^3/uL (1.0-4.8) Monocytes # (Auto) 0.4 x10^3/uL (0.0-1.1) Eosinophils # (Auto) 0.2 x10^3/uL (0.0-0.7) Basophils # (Auto) 0.0 x10^3/uL (0.0-0.2) Prothrombin Time 14.3 SEC (11.7-14.0) Prothromb Time International Ratio 1.2 (0.8-1.1) Activated Partial Thromboplast Time 25 SEC (24-38) Sodium Level 138 mmol/L (136-145) Potassium Level 2.6 mmol/L (3.5-5.1) Chloride Level 101 mmol/L (98-107) Carbon Dioxide Level 21 mmol/L (21-32) Anion Gap 16 (6-14) Blood Urea Nitrogen 34 mg/dL (8-26) Creatinine 1.8 mg/dL (0.7-1.3) Estimated GFR (Cockcroft-Gault) 37.9 BUN/Creatinine Ratio 19 (6-20) Glucose Level 311 mg/dL (70-99) Lactic Acid Level 6.1 mmol/L (0.4-2.0) Calcium Level 9.4 mg/dL (8.5-10.1) Magnesium Level 1.7 mg/dL (1.8-2.4) Total Bilirubin 0.4 mg/dL (0.2-1.0) Aspartate Amino Transf (AST/SGOT) 11 U/L (15-37) Alanine Aminotransferase (ALT/SGPT) 25 U/L (16-63) Alkaline Phosphatase 87 U/L (46-116) Ammonia 15 mcmol/L (11-34) Creatine Kinase 42 U/L (39-308) Creatine Kinase MB (Mass) 1.8 ng/mL (0.0-3.6) Creatine Kinase MB Relative Index % (0-4) Troponin I Quantitative < 0.017 ng/mL (0.000-0.055) XQ-Kif-L-Type Natriuretic Peptide 179 pg/mL (0-124) Total Protein 6.7 g/dL (6.4-8.2) Albumin 3.3 g/dL (3.4-5.0) Albumin/Globulin Ratio 1.0 (1.0-1.7) Lipase 344 U/L (73-393) Ethyl Alcohol Level < 10 mg/dL (0-10) Acetone Level Neg (NEG) O2 Saturation 98 % (92-99) Arterial Blood pH 7.29 (7.35-7.45) Arterial Blood pCO2 at Patient Temp 39 mmHg (35-46) Arterial Blood pO2 at Patient Temp 184 mmHg (65-108) Arterial Blood HCO3 18 mmol/L (21-28) Arterial Blood Base Excess -8 mmol/L (-3-3) Oxyhemoglobin 97.4 % Methemoglobin 0.6 % (0.0-1.9) Carbon Monoxide, Quantitative 0.1 % (0.0-1.9) FiO2 100 Urine Collection Type Unknown Urine Color Yellow Urine Clarity Clear Urine pH 5.0 (<5.0-8.0) Urine Specific [place] >=1.030 (1.000-1.030) Urine Protein Negative mg/dL (NEG-TRACE) Urine Glucose (UA) >=1000 mg/dL (NEG) Urine Ketones (Stick) Trace mg/dL (NEG) Urine Blood Negative (NEG) Urine Nitrite Negative (NEG) Urine Bilirubin Negative (NEG) Urine Urobilinogen Dipstick 0.2 mg/dL (0.2 mg/dL) Urine Leukocyte Esterase Negative (NEG) Urine RBC 0 /HPF (0-2) Urine WBC 0 /HPF (0-4) Urine Bacteria 0 /HPF (0-FEW) Urine Opiates Screen Neg (NEG) Urine Methadone Screen Neg (NEG) Urine Barbiturates Neg (NEG) Urine Phencyclidine Screen Neg (NEG) Urine Amphetamine/Methamphetamine Neg (NEG) Urine Benzodiazepines Screen Neg (NEG) Urine Cocaine Screen Neg (NEG) Urine Cannabinoids Screen Neg (NEG) Urine Ethyl Alcohol Neg (NEG) Test 01/13/20 20:59 01/13/20 23:01 01/13/20 23:24 01/13/20 23:37 Glucose (Fingerstick) 138 mg/dL (70-99) 56 mg/dL (70-99) 46 mg/dL (70-99) 114 mg/dL (70-99) Test 01/14/20 00:08 01/14/20 00:20 01/14/20 01:20 01/14/20 01:24 Glucose (Fingerstick) 105 mg/dL (70-99) 65 mg/dL (70-99) Lactic Acid Level < 0.3 mmol/L (0.4-2.0) Troponin I Quantitative 0.135 ng/mL (0.000-0.055) Sodium Level 140 mmol/L (136-145) Potassium Level 3.2 mmol/L (3.5-5.1) Chloride Level 107 mmol/L (98-107) Carbon Dioxide Level 21 mmol/L (21-32) Anion Gap 12 (6-14) Blood Urea Nitrogen 31 mg/dL (8-26) Creatinine 1.4 mg/dL (0.7-1.3) Estimated GFR (Cockcroft-Gault) 50.7 Glucose Level 65 mg/dL (70-99) Calcium Level 8.0 mg/dL (8.5-10.1) Test 01/14/20 01:38 01/14/20 03:07 01/14/20 03:16 01/14/20 04:22 Glucose (Fingerstick) 95 mg/dL (70-99) 67 mg/dL (70-99) 118 mg/dL (70-99) 72 mg/dL (70-99) Test 01/14/20 05:00 01/14/20 05:04 01/14/20 06:47 01/14/20 07:46 White Blood Count 15.9 x10^3/uL (4.0-11.0) Red Blood Count 3.12 x10^6/uL (4.30-5.70) Hemoglobin 9.7 g/dL (13.0-17.5) Hematocrit 28.1 % (39.0-53.0) Mean Corpuscular Volume 90 fL (79-100) Mean Corpuscular Hemoglobin 31 pg (25-35) Mean Corpuscular Hemoglobin Concent 35 g/dL (31-37) Red Cell Distribution Width 14.8 % (11.5-14.5) Platelet Count 175 x10^3/uL (140-400) Sodium Level 139 mmol/L (136-145) Potassium Level 3.1 mmol/L (3.5-5.1) Chloride Level 106 mmol/L (98-107) Carbon Dioxide Level 23 mmol/L (21-32) Anion Gap 10 (6-14) Blood Urea Nitrogen 31 mg/dL (8-26) Creatinine 1.5 mg/dL (0.7-1.3) Estimated GFR (Cockcroft-Gault) 46.8 Glucose Level 76 mg/dL (70-99) Calcium Level 8.2 mg/dL (8.5-10.1) Magnesium Level 2.0 mg/dL (1.8-2.4) Troponin I Quantitative 0.072 ng/mL (0.000-0.055) Glucose (Fingerstick) 74 mg/dL (70-99) 56 mg/dL (70-99) 81 mg/dL (70-99) Test 01/14/20 08:00 01/14/20 08:56 01/14/20 09:52 01/14/20 10:00 O2 Saturation 97 % (92-99) Arterial Blood pH 7.35 (7.35-7.45) Arterial Blood pCO2 at Patient Temp 36 mmHg (35-46) Arterial Blood pO2 at Patient Temp 108 mmHg (65-108) Arterial Blood HCO3 19 mmol/L (21-28) Arterial Blood Base Excess -6 mmol/L (-3-3) FiO2 40% vent Glucose (Fingerstick) 77 mg/dL (70-99) 91 mg/dL (70-99) Sodium Level 139 mmol/L (136-145) Potassium Level 3.4 mmol/L (3.5-5.1) Chloride Level 105 mmol/L (98-107) Carbon Dioxide Level 23 mmol/L (21-32) Anion Gap 11 (6-14) Blood Urea Nitrogen 30 mg/dL (8-26) Creatinine 1.7 mg/dL (0.7-1.3) Estimated GFR (Cockcroft-Gault) 40.5 Glucose Level 93 mg/dL (70-99) Calcium Level 8.4 mg/dL (8.5-10.1) Test 01/14/20 10:36 01/14/20 11:20 Glucose (Fingerstick) 83 mg/dL (70-99) 112 mg/dL (70-99) Images Images CT brain without contrast, CT cervical spine without contrast HISTORY: Altered mental status, intubated CT brain CT scan of brain was done without contrast. There is a mucous retention cyst in the left maxillary antrum. There is mucosal thickening in the ethmoid sinuses and left sphenoid sinus. There is no skull fracture. Mastoids are normally aerated. There is no intracranial hemorrhage or subdural hematoma. Ventricles are normal in size. There is no mass or shift of the midline. IMPRESSION: 1. Mild mucosal thickening in the sinuses. 2. No intracranial hemorrhage or acute CVA noted. End impression CT cervical spine Axial CT images were obtained to the cervical spine. Sagittal and coronal reconstructed images were reviewed. There is no acute fracture. Endotracheal tube stops at the level aortic arch. NG tube is noted in the esophagus. There is mild motion artifact. There is degenerative disc disease and spurring at C5-6 and C6-7. IMPRESSION: 1. Degenerative spondylosis in the lower cervical spine. 2. No acute C-spine fracture. Study: CR CHEST AP ONLY Indication: Right IJ placement. Comparison: 01/13/2020 at 1855 hours Findings: Interval placement of a right IJ central venous catheter with the tip projecting within the superior vena cava. Enteric tube is again noted with the tip beyond the inferior field of view. Endotracheal tube tip terminates at the level of the clavicles. Unchanged prominence of the cardiomediastinal silhouette. No pneumothorax or newly seen airspace consolidation or layering effusion. Impression: Right IJ with the tip projecting within the superior vena cava. Additional support devices are unchanged. No newly seen abnormality of the chest. Assessment/Plan Assessment/Plan IMP ENCEPHALOPATHY ACUTE RENAL FAILURE-PROB ATN-CR OF 1.7 SUSPECT STAGE 2 CKD WITH CR OF 1.2 BASELINE SUSPECT DEHYDRATION ACUTE RESP FAILURE ACIDEMIA AND MET ACIDOSIS-IMPROVED LEUCOCYTOSIS HYPOTENSION PROB EVOLVING SEPSIS INCREASED CARDIAC ENZYMES-PROB DEMAND ISCHEMIA PLAN VOLUME EXPAND SUGGEST ANTIBIOTICS PRESSORS ECHOCARDIOGRAM RULE OUT COVID 19 VENT SUPPORT REPLACE K CORRECT BG NUTRITION SUGGEST ID AND CARDIOLOGY EVALUATION ALSO NEURO EVALUATION D/W PULMONARY/CRITICAL CARE WILL FOLLOW MARSHAL SNOW MD Jan 14, 2020 12:07
--- NOTE | 2020-01-14 12:51 | CONS ---
DATE OF CONSULTATION: 01/14/2020 I was asked to see this 65-year-old gentleman for acute respiratory failure, septic shock. HISTORY OF PRESENT ILLNESS: The patient is currently intubated and is on the ventilator. He is not responsive. All of the information was obtained from chart and nursing staff. He was found down at home. He was brought to the Emergency Room. He vomited. He was intubated in the Emergency Room. On admission, his blood sugar was 453, but his blood sugar has been low. He required glucagon D50 and now is on D5 drip. He is currently on Levophed. He is not responsive. He is not on any sedation. He has small amount of ET tube secretion. PAST MEDICAL HISTORY: Hypertension, diabetes mellitus, CVA, peripheral neuropathy, status post left below-knee amputation, chronic kidney disease, obstructive sleep apnea-hypopnea syndrome, CPAP INTOLERANT. ALLERGIES: MORPHINE. MEDICATIONS: Currently, he is on vancomycin, potassium, Levophed, Lovenox 40 mg subcutaneous daily. SOCIAL HISTORY: Unable to obtain. He is on the ventilator and is unresponsive. FAMILY HISTORY: The patient is on the ventilator and unresponsive. Unable to obtain. REVIEW OF SYSTEMS: Unable to obtain. The patient is on the ventilator and is not responsive. PHYSICAL EXAMINATION: GENERAL: This is an obese gentleman. VITAL SIGNS: His O2 saturation on 40% FiO2 is 100%, respiratory rate 20, heart rate 90, blood pressure 118/56, temperature 99.2. HEENT: Normocephalic, atraumatic. Pupils equal, round, reactive to light. He is orally intubated. Nose is clear. NECK: Short and thick. There is no lymphadenopathy or thyromegaly. CARDIOVASCULAR: Regular rate and rhythm. PMI is nondisplaced. CHEST: Inspection is normal. LUNGS: There are bibasilar crackles, dullness at the bases. ABDOMEN: Soft and obese. Bowel sounds are good. EXTREMITIES: There is left below-knee amputation, on right he has edema. NEUROLOGIC: He is on the ventilator and is unresponsive. SKIN: Chronic changes. LABORATORY DATA: I reviewed the following lab data: WBC 15.9, hemoglobin 9.7, platelets 175. Sodium 139, potassium 3.4, chloride 105, CO2 of 23, glucose 93, BUN 30, creatinine 1.7. Troponin less than 0.01, repeat 0.135, repeat 0.072. BNP 179. Lactic acid 6.1, repeat 0.3. Urine drug screen: Negative. ABG: pH 7.35, pCO2 of 36, pO2 of 108 on assist control rate of 20, tidal volume 500, FiO2 40%. INR 1.2, PTT 25. Chest x-ray: ET tube is in good position, increased interstitial marking. CT of head showed mild mucosal thickening of sinuses. No acute abnormality. No acute C-spine fracture. IMPRESSION: 1. Acute hypoxemic respiratory failure secondary to septic shock, source unknown, encephalopathy, acute kidney injury, rule out non-ST elevation myocardial infarction versus others. 2. Abnormal chest x-ray. 3. Acute kidney injury. 4. Septic shock. 5. Diabetes mellitus, hyperglycemic at the beginning, now hypoglycemic. 6. Abnormal chest x-ray. 7. Encephalopathy, metabolic. 8. Obstructive sleep apnea-hypopnea syndrome. 9. Chronic kidney disease. 10. History of cerebrovascular accident. 11. Lower extremity edema. PLAN AND RECOMMENDATIONS: 1. Titrate FiO2 to keep O2 saturation more than 94%. 2. Continue ventilator support until the patient is more stable. Ventilator setting was reviewed. 3. Check COVID-19. 4. Continue Lovenox for deep venous thrombosis prophylaxis. 5. Start Protonix for stress ulcer prophylaxis. 6. Lower extremity venous Doppler. 7. Nephrology is consulted. 8. Monitor blood sugars. 9. Replace potassium. 10. Monitor creatinine. 11. Continue pressors to keep mean arterial pressure more than 65. 12. Follow up cultures. 13. Continue antibiotic. 14. The findings and recommendations were discussed with RN and RT, Dr. Grant. Thank you very much for allowing me to participate in care of this very nice gentleman. The patient is critically ill. This is critical care time 30 minutes without overlap. EFREM BLUE M.D. DR: JENNIFER/annika JOB#: [id number] / [id number]
[2020-01-14] MEDS: PANTOPRAZOLE IV PUSH 40 MG VIAL. IVP SCH (13:17)
--- NOTE | 2020-01-14 15:46 | CONS ---
DATE OF CONSULTATION: 01/14/2020 REASON FOR CONSULTATION: Elevated troponin and hypotension. HISTORY OF PRESENT ILLNESS: The patient is a 65-year-old man with past medical history as noted below, who apparently was found down at home and he was brought to the Emergency Department and upon arrival, he was noted to have elevated blood sugar and due to vomiting and unstable airway, he was intubated. He is currently intubated and sedated. No further history is available, otherwise. Cardiology was asked to evaluate him due to persistent hypotension requiring vasopressor therapy and mildly elevated troponin. PAST MEDICAL HISTORY: 1. Hypertension. 2. Dyslipidemia. 3. CVA. 4. Peripheral neuropathy. 5. Anemia of chronic disease. 6. GERD. 7. Chronic renal failure. SOCIAL HISTORY: No alcohol, tobacco or illicit drug use. ALLERGIES: MORPHINE. REVIEW OF SYSTEMS: Unable to be obtained. PHYSICAL EXAMINATION: VITAL SIGNS: Afebrile, 125, 21, 115/56, 100% on ventilator at 40% FiO2. GENERAL: He is sedated and nonresponsive. He is morbidly obese. CARDIAC: Unremarkable. ABDOMEN: Soft. EXTREMITIES: No clubbing, cyanosis or edema. NEUROLOGIC: Unable to be obtained. LUNGS: Decreased breath sounds bilaterally. DIAGNOSTIC STUDIES: Creatinine 1.7, potassium 3.4. Troponin minimally elevated, not consistent with acute coronary syndrome. EKG is unremarkable. Chest x-ray reviewed and suggestive of vascular congestion. Echocardiogram obtained in 02/2017 revealed normal LV function. IMPRESSION: 1. Septic shock, currently per standard interest with COVID rule out. 2. End-stage renal disease. 3. Elevated troponin, likely secondary to above comorbidities and likely type 2. RECOMMENDATIONS: Continue supportive care with IV fluids and antibiotics. Continue vasopressor therapy. Once his coronavirus has been ruled out, we will obtain a repeat echocardiogram to ensure stable LV function. Otherwise, no further acute cardiovascular testing necessary. Thank you for this consultation. KENDALL SOLIS MD DR: AKANKSHA/annika JOB#: [id number] / [id number]
[2020-01-14] MEDS: IV NORMAL SALINE 1000ML BAG 1,000 ML IV SCH (15:52)
[2020-01-14] MEDS ORDERED: NALOXONE 0.4 MG/ML VIAL. IV PRN (16:00)
[2020-01-14] MEDS ORDERED: VANCOMYCIN 1.75 GM in IV NORMAL SALINE 500ML BAG 500 ML IV SCH (17:00)
[2020-01-14 17:19] LABS: CALCIUM 8.7 mg/dL (8.5-10.1); CREATININE 1.8 mg/dL (0.7-1.3); GFR 37.9
--- NOTE | 2020-01-14 19:49 | CONS ---
DATE OF CONSULTATION: 01/14/2020 REFERRING PHYSICIAN: Philip Ricketts MD REASON FOR CONSULTATION: Encephalopathy. HISTORY OF PRESENT ILLNESS: The patient is a 65-year-old man who was found down by a neighbor at home. He has had previous suicide attempts by overusing insulin. There is also concern that he has empty pill bottles although urine drug screen was negative. He was found to be in respiratory failure and required intubation. He was initially hyperglycemic, but then his sugars dropped and he required repeated doses of D5 and glucagon to maintain his blood sugars. He underwent a CT scan of the head, which was not revealing. He became hypotensive and there was concern for septic shock. He has also had some renal failure. Neurology is asked to evaluate his neurologic status. He has not had any obvious convulsive activity. There was no evidence of trauma to the head. In addition, he also had evidence for elevated troponin suggesting the possibility of a myocardial infarction. He has been seen by Cardiology due to persistent hypotension requiring pressors. He had mildly elevated troponin. PAST MEDICAL HISTORY: 1. Hypertension. 2. Diabetes mellitus, insulin-dependent. 3. History of stroke. 4. Peripheral neuropathy. 5. Status post left [id number] amputation. 6. Chronic kidney disease. 7. Obstructive sleep apnea. 8. CPAP INTOLERANT. 9. History of suicidal attempts. ALLERGIES: MORPHINE. MEDICATIONS PRIOR TO ADMISSION: Aspirin 325 mg, atorvastatin 20 mg, citalopram 10 mg, Nexium, gabapentin 300 mg 3 times per day, insulin, metformin 500 mg twice per day, pioglitazone 30 mg and trazodone 50 mg nightly. FAMILY HISTORY: Noncontributory. SOCIAL HISTORY: He does not smoke tobacco, drink alcohol or use recreational drugs. REVIEW OF SYSTEMS: Unobtainable. PHYSICAL EXAMINATION: VITAL SIGNS: The blood pressure was 116/57, pulse 121, respirations 20, temperature 99.4 degrees orally. He was on a ventilator with 100% oximetry. His weight was 117.2 kilograms, height 71 inches and a calculated body mass index of 36. NEUROLOGIC: He was intubated, ventilated and not sedated. His eyes were closed. He did not respond to verbal stimulation. When I held open the eyes, he did not look up or down to command. He did not follow any commands. Sternal rub did provoke some brief alerting but no following of commands. He also localized the sternal rub with both arms trying to get to my hand to remove it. He moved both sides equally well when I did sternal rub. The eyes were disconjugate. Oculocephalic reflex was not present. Pupils were 3 mm and poorly reactive. Corneal reflex was present bilaterally. The face appeared symmetric. There was no nuchal rigidity. Muscle bulk was symmetric. Tone was diminished throughout. The spontaneous movement in reaction to sternal rub appeared symmetric. Tendon reflexes were absent. Toes were mute. He did not have any reaction to nail bed pressure on any of his extremities. There was a left [id number] amputation. LABORATORY RESULTS: CBC was performed 01/14/2020 revealing an elevated white blood cell count at 15.9. Hemoglobin was 9.7, hematocrit 28.1 and platelet count normal at 175. Chemistries were performed 01/14/2020 revealing normal sodium, chloride and CO2. Potassium was low at 3.4. BUN was 30 and creatinine 1.7 with a GFR diminished at 40.5. Calcium was low at 8.4. Procalcitonin was not elevated. Magnesium was normal at 2. Troponin was elevated to 0.072. PT/INR was 1.2 and PTT was 25. Urine drug screen was negative. Alcohol was not detected in the urine or blood stream. Acetone was negative. Urinalysis revealed a high specific gravity of greater than 1.030. There was greater than 1000 glucose. There was trace ketones,. An arterial blood gas was performed 01/14/2020 on the ventilator with an FiO2 of 40%. The pH was 7.35, pCO2 was 36, pO2 was 108 and saturation 97%. Bicarbonate was 19, which was low. DIAGNOSTIC RESULTS: CT scan of the head and cervical spine was performed 01/13/2020. This revealed no acute intracranial process. There was mild mucosal thickening in the sinuses. The cervical spine revealed degenerative spondylosis in the lower cervical spine, but no acute fracture. Chest x-ray was performed 01/13/2020. This revealed poor inspiration. There was mild crowding of the vasculature versus mild interstitial prominence or vascular congestion. The endotracheal tube was in good positioning. IMPRESSION: The patient is a 65-year-old man who was found down in his home. Initially, he was very hyperglycemic, but without treatment apparently became extremely hypoglycemic requiring repeated dosages of glucagon and D50. He was hypotensive as well with concern of sepsis syndrome. He was in respiratory failure. He has acute renal failure as well. Neurologic examination reveals a marked decline without all brainstem reflexes present. He is severely encephalopathic from toxic and metabolic causes. There may also be an underlying infectious process, which is being investigated. He did move his arms symmetrically, which was reassuring. RECOMMENDATIONS: I would continue to treat the underlying toxic, metabolic, and possible underlying infectious etiologies. If he is not improving, he may need a lumbar puncture under fluoroscopy to obtain spinal fluid for analysis. A followup CAT scan can also be performed at 48-72 hours to make sure there is not an interval change. If this is due to overdose from medications such as trazodone then this should clear eventually. I appreciate being involved in his care. ELVIN ZULUAGA MD DR: LOUISA/annika JOB#: [id number] / [id number] YAZ Gillespie MD
[2020-01-14] MEDS: IV DEXTROSE 10% 1,000 ML IV SCH (21:22)
[2020-01-14] MEDS: VANCOMYCIN 2 GM in IV NORMAL SALINE 500ML BAG 500 ML IV SCH (23:42)
[2020-01-15] VITALS (43 sets, daily range): BP systolic 78–158; BP diastolic 39–89
--- NOTE | 2020-01-15 00:35 | NUR ---
Pt awake. Pt waving arms and at times almost getting his arms caught in his ventilator tubing. Started Fentanyl gtt at 50 mcg/hour also gave him 100mcg bolus dose. Fentanyl did not seem effective, pt continued to be awake and waving arms around. Started Versed gtt at 1mg/hour then increased to 2mg/hour. Pt resting quietly at this time.
[2020-01-15] MEDS: DEXTROSE 50% 25 GM / 50ML DISP.SYRIN. IV PRN (00:41)
[2020-01-15] MEDS: NOREPINEPHRINE VIAL 32 MG in IV D5W 250ML IV PRN (04:06)
[2020-01-15] MEDS: GLUCAGON,HUMAN RECOMBINANT 1 MG/ML VIAL. IV PRN (04:12)
[2020-01-15 06:25] LABS: CALCIUM 8.2 mg/dL (8.5-10.1); CREATININE 1.8 mg/dL (0.7-1.3); GFR 37.9; MAGNESIUM 1.8 mg/dL (1.8-2.4); POTASSIUM 4.4 mmol/L (3.5-5.1)
[2020-01-15] MEDS: PANTOPRAZOLE IV PUSH 40 MG VIAL. IVP SCH (07:30)
[2020-01-15 07:50] LABS: BASE EXCESS ABG -7 mmol/L (-3-3); HCO3 ABG 17 mmol/L (21-28); PCO2 ABG 32 mmHg (35-46); PO2 ABG 95 mmHg (65-108); SAT O2 ABG 97 % (92-99)
[2020-01-15 07:53] LABS: FIO2 ABG 40%
[2020-01-15 08:32] LABS: BASO % 0 % (0-3); EOS % 0 % (0-3); HEMATOCRIT 30.7 % (39.0-53.0); HEMOGLOBIN 10.4 g/dL (13.0-17.5); LYMPH # 3.2 x10^3/uL (1.0-4.8); LYMPH % 19 % (24-48); MEAN CORPUSCULAR HEMOGLOBIN 31 pg (25-35); MEAN CORPUSCULAR HGB CONC 34 g/dL (31-37); MEAN CORPUSCULAR VOLUME 91 fL (79-100); MONO # 1.9 x10^3/uL (0.0-1.1); MONO % 11 % (0-9); NEUT # 11.8 x10^3/uL (1.8-7.7); NEUT % 70 % (31-73); PLATELET COUNT 190 x10^3/uL (140-400); RED BLOOD COUNT 3.36 x10^6/uL (4.30-5.70); RED CELL DISTRIBUTION WIDTH 15.3 % (11.5-14.5)
[2020-01-15] MEDS: INSULIN LISPRO 300 UNITS/3 ML VIAL. SQ SCH ×3 (08:34→17:00)
--- NOTE | 2020-01-15 08:59 | PDOC ---
PULMONARY PROGRESS NOTES Subjective Pt. remains on Vent 40% and PEEP of 5 levophed gtt as well no overnight concerns from nursing Vitals Vital Signs Date Time Temp Pulse Resp B/P (MAP) Pulse Ox O2 Delivery O2 Flow Rate FiO2 01/15/20 07:36 99 Ventilator 01/15/20 07:00 122 23 119/63 (81) 01/15/20 04:00 99.0 99.0 01/15/20 00:39 15.0 Comments visual exam done during COVID- pandemic Labs Laboratory Tests Test 01/13/20 18:07 01/13/20 18:20 01/13/20 18:37 01/13/20 19:08 Glucose (Fingerstick) 339 mg/dL (70-99) White Blood Count 9.1 x10^3/uL (4.0-11.0) Red Blood Count 3.51 x10^6/uL (4.30-5.70) Hemoglobin 11.1 g/dL (13.0-17.5) Hematocrit 31.2 % (39.0-53.0) Mean Corpuscular Volume 89 fL (79-100) Mean Corpuscular Hemoglobin 32 pg (25-35) Mean Corpuscular Hemoglobin Concent 36 g/dL (31-37) Red Cell Distribution Width 14.9 % (11.5-14.5) Platelet Count 144 x10^3/uL (140-400) Neutrophils (%) (Auto) 59 % (31-73) Lymphocytes (%) (Auto) 34 % (24-48) Monocytes (%) (Auto) 5 % (0-9) Eosinophils (%) (Auto) 2 % (0-3) Basophils (%) (Auto) 0 % (0-3) Neutrophils # (Auto) 5.4 x10^3/uL (1.8-7.7) Lymphocytes # (Auto) 3.1 x10^3/uL (1.0-4.8) Monocytes # (Auto) 0.4 x10^3/uL (0.0-1.1) Eosinophils # (Auto) 0.2 x10^3/uL (0.0-0.7) Basophils # (Auto) 0.0 x10^3/uL (0.0-0.2) Prothrombin Time 14.3 SEC (11.7-14.0) Prothromb Time International Ratio 1.2 (0.8-1.1) Activated Partial Thromboplast Time 25 SEC (24-38) Sodium Level 138 mmol/L (136-145) Potassium Level 2.6 mmol/L (3.5-5.1) Chloride Level 101 mmol/L (98-107) Carbon Dioxide Level 21 mmol/L (21-32) Anion Gap 16 (6-14) Blood Urea Nitrogen 34 mg/dL (8-26) Creatinine 1.8 mg/dL (0.7-1.3) Estimated GFR (Cockcroft-Gault) 37.9 BUN/Creatinine Ratio 19 (6-20) Glucose Level 311 mg/dL (70-99) Lactic Acid Level 6.1 mmol/L (0.4-2.0) Calcium Level 9.4 mg/dL (8.5-10.1) Magnesium Level 1.7 mg/dL (1.8-2.4) Total Bilirubin 0.4 mg/dL (0.2-1.0) Aspartate Amino Transf (AST/SGOT) 11 U/L (15-37) Alanine Aminotransferase (ALT/SGPT) 25 U/L (16-63) Alkaline Phosphatase 87 U/L (46-116) Ammonia 15 mcmol/L (11-34) Creatine Kinase 42 U/L (39-308) Creatine Kinase MB (Mass) 1.8 ng/mL (0.0-3.6) Creatine Kinase MB Relative Index % (0-4) Troponin I Quantitative < 0.017 ng/mL (0.000-0.055) LK-Bbt-F-Type Natriuretic Peptide 179 pg/mL (0-124) Total Protein 6.7 g/dL (6.4-8.2) Albumin 3.3 g/dL (3.4-5.0) Albumin/Globulin Ratio 1.0 (1.0-1.7) Lipase 344 U/L (73-393) Ethyl Alcohol Level < 10 mg/dL (0-10) Acetone Level Neg (NEG) O2 Saturation 98 % (92-99) Arterial Blood pH 7.29 (7.35-7.45) Arterial Blood pCO2 at Patient Temp 39 mmHg (35-46) Arterial Blood pO2 at Patient Temp 184 mmHg (65-108) Arterial Blood HCO3 18 mmol/L (21-28) Arterial Blood Base Excess -8 mmol/L (-3-3) Oxyhemoglobin 97.4 % Methemoglobin 0.6 % (0.0-1.9) Carbon Monoxide, Quantitative 0.1 % (0.0-1.9) FiO2 100 Urine Collection Type Unknown Urine Color Yellow Urine Clarity Clear Urine pH 5.0 (<5.0-8.0) Urine Specific [place] >=1.030 (1.000-1.030) Urine Protein Negative mg/dL (NEG-TRACE) Urine Glucose (UA) >=1000 mg/dL (NEG) Urine Ketones (Stick) Trace mg/dL (NEG) Urine Blood Negative (NEG) Urine Nitrite Negative (NEG) Urine Bilirubin Negative (NEG) Urine Urobilinogen Dipstick 0.2 mg/dL (0.2 mg/dL) Urine Leukocyte Esterase Negative (NEG) Urine RBC 0 /HPF (0-2) Urine WBC 0 /HPF (0-4) Urine Bacteria 0 /HPF (0-FEW) Urine Opiates Screen Neg (NEG) Urine Methadone Screen Neg (NEG) Urine Barbiturates Neg (NEG) Urine Phencyclidine Screen Neg (NEG) Urine Amphetamine/Methamphetamine Neg (NEG) Urine Benzodiazepines Screen Neg (NEG) Urine Cocaine Screen Neg (NEG) Urine Cannabinoids Screen Neg (NEG) Urine Ethyl Alcohol Neg (NEG) Test 01/13/20 20:59 01/13/20 23:01 01/13/20 23:24 01/13/20 23:37 Glucose (Fingerstick) 138 mg/dL (70-99) 56 mg/dL (70-99) 46 mg/dL (70-99) 114 mg/dL (70-99) Test 01/14/20 00:08 01/14/20 00:20 01/14/20 01:20 01/14/20 01:24 Glucose (Fingerstick) 105 mg/dL (70-99) 65 mg/dL (70-99) Lactic Acid Level < 0.3 mmol/L (0.4-2.0) Troponin I Quantitative 0.135 ng/mL (0.000-0.055) Sodium Level 140 mmol/L (136-145) Potassium Level 3.2 mmol/L (3.5-5.1) Chloride Level 107 mmol/L (98-107) Carbon Dioxide Level 21 mmol/L (21-32) Anion Gap 12 (6-14) Blood Urea Nitrogen 31 mg/dL (8-26) Creatinine 1.4 mg/dL (0.7-1.3) Estimated GFR (Cockcroft-Gault) 50.7 Glucose Level 65 mg/dL (70-99) Calcium Level 8.0 mg/dL (8.5-10.1) Test 01/14/20 01:38 01/14/20 03:07 01/14/20 03:16 01/14/20 04:22 Glucose (Fingerstick) 95 mg/dL (70-99) 67 mg/dL (70-99) 118 mg/dL (70-99) 72 mg/dL (70-99) Test 01/14/20 05:00 01/14/20 05:04 01/14/20 06:47 01/14/20 07:46 White Blood Count 15.9 x10^3/uL (4.0-11.0) Red Blood Count 3.12 x10^6/uL (4.30-5.70) Hemoglobin 9.7 g/dL (13.0-17.5) Hematocrit 28.1 % (39.0-53.0) Mean Corpuscular Volume 90 fL (79-100) Mean Corpuscular Hemoglobin 31 pg (25-35) Mean Corpuscular Hemoglobin Concent 35 g/dL (31-37) Red Cell Distribution Width 14.8 % (11.5-14.5) Platelet Count 175 x10^3/uL (140-400) Sodium Level 139 mmol/L (136-145) Potassium Level 3.1 mmol/L (3.5-5.1) Chloride Level 106 mmol/L (98-107) Carbon Dioxide Level 23 mmol/L (21-32) Anion Gap 10 (6-14) Blood Urea Nitrogen 31 mg/dL (8-26) Creatinine 1.5 mg/dL (0.7-1.3) Estimated GFR (Cockcroft-Gault) 46.8 Glucose Level 76 mg/dL (70-99) Calcium Level 8.2 mg/dL (8.5-10.1) Magnesium Level 2.0 mg/dL (1.8-2.4) Troponin I Quantitative 0.072 ng/mL (0.000-0.055) Glucose (Fingerstick) 74 mg/dL (70-99) 56 mg/dL (70-99) 81 mg/dL (70-99) Test 01/14/20 08:00 01/14/20 08:56 01/14/20 09:52 01/14/20 10:00 O2 Saturation 97 % (92-99) Arterial Blood pH 7.35 (7.35-7.45) Arterial Blood pCO2 at Patient Temp 36 mmHg (35-46) Arterial Blood pO2 at Patient Temp 108 mmHg (65-108) Arterial Blood HCO3 19 mmol/L (21-28) Arterial Blood Base Excess -6 mmol/L (-3-3) FiO2 40% vent Glucose (Fingerstick) 77 mg/dL (70-99) 91 mg/dL (70-99) Sodium Level 139 mmol/L (136-145) Potassium Level 3.4 mmol/L (3.5-5.1) Chloride Level 105 mmol/L (98-107) Carbon Dioxide Level 23 mmol/L (21-32) Anion Gap 11 (6-14) Blood Urea Nitrogen 30 mg/dL (8-26) Creatinine 1.7 mg/dL (0.7-1.3) Estimated GFR (Cockcroft-Gault) 40.5 Glucose Level 93 mg/dL (70-99) Calcium Level 8.4 mg/dL (8.5-10.1) Procalcitonin < 0.10 ng/mL (0.00-0.10) Test 01/14/20 10:36 01/14/20 11:20 01/14/20 12:43 01/14/20 14:23 Glucose (Fingerstick) 83 mg/dL (70-99) 112 mg/dL (70-99) 173 mg/dL (70-99) 139 mg/dL (70-99) Test 01/14/20 16:45 01/14/20 16:48 01/14/20 17:21 01/14/20 18:35 Sodium Level 138 mmol/L (136-145) Potassium Level 5.0 mmol/L (3.5-5.1) Chloride Level 106 mmol/L (98-107) Carbon Dioxide Level 22 mmol/L (21-32) Anion Gap 10 (6-14) Blood Urea Nitrogen 28 mg/dL (8-26) Creatinine 1.8 mg/dL (0.7-1.3) Estimated GFR (Cockcroft-Gault) 37.9 Glucose Level 77 mg/dL (70-99) Calcium Level 8.7 mg/dL (8.5-10.1) Glucose (Fingerstick) 69 mg/dL (70-99) 98 mg/dL (70-99) 91 mg/dL (70-99) Test 01/14/20 19:49 01/14/20 20:57 01/14/20 21:11 01/14/20 22:23 Glucose (Fingerstick) 72 mg/dL (70-99) 49 mg/dL (70-99) 122 mg/dL (70-99) 73 mg/dL (70-99) Test 01/14/20 23:45 01/15/20 00:32 01/15/20 00:45 01/15/20 02:02 Glucose (Fingerstick) 72 mg/dL (70-99) 63 mg/dL (70-99) 109 mg/dL (70-99) 74 mg/dL (70-99) Test 01/15/20 03:56 01/15/20 04:32 01/15/20 05:45 01/15/20 05:50 Glucose (Fingerstick) 60 mg/dL (70-99) 80 mg/dL (70-99) 81 mg/dL (70-99) Sodium Level 139 mmol/L (136-145) Potassium Level 4.4 mmol/L (3.5-5.1) Chloride Level 107 mmol/L (98-107) Carbon Dioxide Level 24 mmol/L (21-32) Anion Gap 8 (6-14) Blood Urea Nitrogen 24 mg/dL (8-26) Creatinine 1.8 mg/dL (0.7-1.3) Estimated GFR (Cockcroft-Gault) 37.9 Glucose Level 80 mg/dL (70-99) Calcium Level 8.2 mg/dL (8.5-10.1) Magnesium Level 1.8 mg/dL (1.8-2.4) Thyroid Stimulating Hormone (TSH) 0.160 uIU/mL (0.358-3.74) Test 01/15/20 07:55 01/15/20 08:15 01/15/20 08:17 O2 Saturation 97 % (92-99) Arterial Blood pH 7.35 (7.35-7.45) Arterial Blood pCO2 at Patient Temp 32 mmHg (35-46) Arterial Blood pO2 at Patient Temp 95 mmHg (65-108) Arterial Blood HCO3 17 mmol/L (21-28) Arterial Blood Base Excess -7 mmol/L (-3-3) FiO2 40% White Blood Count 17.0 x10^3/uL (4.0-11.0) Red Blood Count 3.36 x10^6/uL (4.30-5.70) Hemoglobin 10.4 g/dL (13.0-17.5) Hematocrit 30.7 % (39.0-53.0) Mean Corpuscular Volume 91 fL (79-100) Mean Corpuscular Hemoglobin 31 pg (25-35) Mean Corpuscular Hemoglobin Concent 34 g/dL (31-37) Red Cell Distribution Width 15.3 % (11.5-14.5) Platelet Count 190 x10^3/uL (140-400) Neutrophils (%) (Auto) 70 % (31-73) Lymphocytes (%) (Auto) 19 % (24-48) Monocytes (%) (Auto) 11 % (0-9) Eosinophils (%) (Auto) 0 % (0-3) Basophils (%) (Auto) 0 % (0-3) Neutrophils # (Auto) 11.8 x10^3/uL (1.8-7.7) Lymphocytes # (Auto) 3.2 x10^3/uL (1.0-4.8) Monocytes # (Auto) 1.9 x10^3/uL (0.0-1.1) Eosinophils # (Auto) 0.0 x10^3/uL (0.0-0.7) Basophils # (Auto) 0.0 x10^3/uL (0.0-0.2) Glucose (Fingerstick) 81 mg/dL (70-99) Laboratory Tests Test 01/14/20 09:52 01/14/20 10:00 01/14/20 10:36 01/14/20 11:20 Glucose (Fingerstick) 91 mg/dL (70-99) 83 mg/dL (70-99) 112 mg/dL (70-99) Sodium Level 139 mmol/L (136-145) Potassium Level 3.4 mmol/L (3.5-5.1) Chloride Level 105 mmol/L (98-107) Carbon Dioxide Level 23 mmol/L (21-32) Anion Gap 11 (6-14) Blood Urea Nitrogen 30 mg/dL (8-26) Creatinine 1.7 mg/dL (0.7-1.3) Estimated GFR (Cockcroft-Gault) 40.5 Glucose Level 93 mg/dL (70-99) Calcium Level 8.4 mg/dL (8.5-10.1) Procalcitonin < 0.10 ng/mL (0.00-0.10) Test 01/14/20 12:43 01/14/20 14:23 01/14/20 16:45 01/14/20 16:48 Glucose (Fingerstick) 173 mg/dL (70-99) 139 mg/dL (70-99) 69 mg/dL (70-99) Sodium Level 138 mmol/L (136-145) Potassium Level 5.0 mmol/L (3.5-5.1) Chloride Level 106 mmol/L (98-107) Carbon Dioxide Level 22 mmol/L (21-32) Anion Gap 10 (6-14) Blood Urea Nitrogen 28 mg/dL (8-26) Creatinine 1.8 mg/dL (0.7-1.3) Estimated GFR (Cockcroft-Gault) 37.9 Glucose Level 77 mg/dL (70-99) Calcium Level 8.7 mg/dL (8.5-10.1) Test 01/14/20 17:21 01/14/20 18:35 01/14/20 19:49 01/14/20 20:57 Glucose (Fingerstick) 98 mg/dL (70-99) 91 mg/dL (70-99) 72 mg/dL (70-99) 49 mg/dL (70-99) Test 01/14/20 21:11 01/14/20 22:23 01/14/20 23:45 01/15/20 00:32 Glucose (Fingerstick) 122 mg/dL (70-99) 73 mg/dL (70-99) 72 mg/dL (70-99) 63 mg/dL (70-99) Test 01/15/20 00:45 01/15/20 02:02 01/15/20 03:56 01/15/20 04:32 Glucose (Fingerstick) 109 mg/dL (70-99) 74 mg/dL (70-99) 60 mg/dL (70-99) 80 mg/dL (70-99) Test 01/15/20 05:45 01/15/20 05:50 01/15/20 07:55 01/15/20 08:15 Glucose (Fingerstick) 81 mg/dL (70-99) Sodium Level 139 mmol/L (136-145) Potassium Level 4.4 mmol/L (3.5-5.1) Chloride Level 107 mmol/L (98-107) Carbon Dioxide Level 24 mmol/L (21-32) Anion Gap 8 (6-14) Blood Urea Nitrogen 24 mg/dL (8-26) Creatinine 1.8 mg/dL (0.7-1.3) Estimated GFR (Cockcroft-Gault) 37.9 Glucose Level 80 mg/dL (70-99) Calcium Level 8.2 mg/dL (8.5-10.1) Magnesium Level 1.8 mg/dL (1.8-2.4) Thyroid Stimulating Hormone (TSH) 0.160 uIU/mL (0.358-3.74) O2 Saturation 97 % (92-99) Arterial Blood pH 7.35 (7.35-7.45) Arterial Blood pCO2 at Patient Temp 32 mmHg (35-46) Arterial Blood pO2 at Patient Temp 95 mmHg (65-108) Arterial Blood HCO3 17 mmol/L (21-28) Arterial Blood Base Excess -7 mmol/L (-3-3) FiO2 40% White Blood Count 17.0 x10^3/uL (4.0-11.0) Red Blood Count 3.36 x10^6/uL (4.30-5.70) Hemoglobin 10.4 g/dL (13.0-17.5) Hematocrit 30.7 % (39.0-53.0) Mean Corpuscular Volume 91 fL (79-100) Mean Corpuscular Hemoglobin 31 pg (25-35) Mean Corpuscular Hemoglobin Concent 34 g/dL (31-37) Red Cell Distribution Width 15.3 % (11.5-14.5) Platelet Count 190 x10^3/uL (140-400) Neutrophils (%) (Auto) 70 % (31-73) Lymphocytes (%) (Auto) 19 % (24-48) Monocytes (%) (Auto) 11 % (0-9) Eosinophils (%) (Auto) 0 % (0-3) Basophils (%) (Auto) 0 % (0-3) Neutrophils # (Auto) 11.8 x10^3/uL (1.8-7.7) Lymphocytes # (Auto) 3.2 x10^3/uL (1.0-4.8) Monocytes # (Auto) 1.9 x10^3/uL (0.0-1.1) Eosinophils # (Auto) 0.0 x10^3/uL (0.0-0.7) Basophils # (Auto) 0.0 x10^3/uL (0.0-0.2) Test 01/15/20 08:17 Glucose (Fingerstick) 81 mg/dL (70-99) Medications Active Scripts Medications Dose Route/Sig Max Daily Dose Days Date Category Aspirin 325 Mg Tablet 325 Mg PO [id number] 30 09/11/19 Rx Atorvastatin Calcium 20 Mg Tablet 20 Mg PO QHS 30 09/11/19 Rx Trazodone Hcl 50 Mg Tablet 1 Tab PO QHS 09/10/19 Reported Celexa (Citalopram Hydrobromide) 10 Mg Tablet 1 Tab PO DAILY 09/10/19 Reported Lantus Solostar (Insulin Glargine,Hum.rec.anlog) 100 Unit/1 Ml Insuln.pen 65 Unit SQ QHS 09/10/19 Reported Gabapentin (Gabapentin) 300 Mg Capsule 300 Mg PO TID 07/28/19 Reported Nexium Capsule (Esomeprazole Magnesium) 20 Mg Capsule.dr 1 Cap PO DAILY 07/28/19 Reported Actos (Pioglitazone Hcl) 30 Mg Tablet 30 Mg PO DAILY 07/28/19 Reported Metformin Hcl 500 Mg Tablet 500 Mg PO BIDWMEALS 07/28/19 Reported Comments CXR 01/15/2020 Impression: 1. New platelike atelectasis of the left midlung. No other new findings. Impression . IMPRESSION: 1. Acute hypoxemic respiratory failure secondary to septic shock, source unknown, encephalopathy, suspected suicidal attempt with insulin, acute kidney injury, rule out non-ST elevation myocardial infarction versus others. 2. Abnormal chest x-ray. 3. Acute kidney injury. 4. Septic shock. 5. Diabetes mellitus, hyperglycemic at the beginning, now hypoglycemic. 6. Abnormal chest x-ray. 7. Encephalopathy, metabolic. 8. Obstructive sleep apnea-hypopnea syndrome. 9. Chronic kidney disease. 10. History of cerebrovascular accident. 11. Lower extremity edema. Plan . PLAN AND RECOMMENDATIONS: Continue ventilator support 40% and PEEP 5, follow CXR and ABG Check COVID-19. Lower extremity venous Doppler-- NEG Follow nephrology recommendations Monitor blood sugars. Continue pressors to keep mean arterial pressure more than 65, give additional IVF fluid bolus X1 Follow up cultures. Continue antibiotic per ID DVT/GI PPX discussed with RN and RT, Critical Care time 30 minutes ALFONSO ALEXANDER MD Jan 15, 2020 08:59
[2020-01-15] MEDS: CHLORHEXIDINE 0.12% 15 ML MOUTHWASH. MM SCH ×2 (09:00→21:05)
[2020-01-15] MEDS: VANCOMYCIN PER PHARMACY MC PRN ×2 (09:02→23:24)
--- NOTE | 2020-01-15 09:14 | RAD ---
Single AP view of the chest. Comparison: 01/13/2020. Indication: Respiratory failure Findings: Endotracheal tube nasogastric tube and right internal jugular central line are stable. The heart is enlarged but stable. There is no pneumothorax or effusion. No air space or interstitial disease. There is new platelike atelectasis of the left midlung. Impression: 1. New platelike atelectasis of the left midlung. No other new findings. Electronically signed by: Shai Peña MD (01/15/2020 9:11 AM) [id number]
--- NOTE | 2020-01-15 09:25 | PDOC ---
[facility] PROGRESS NOTE Chief Complaint Chief Complaint Acute encephalopathy Fall, found down on kitchen floor. Hyperglycemia and hypoglycemia DM. HTN. HLD. Cancer. Morbid obesity. Left BKA. Acute hypoxemic respiratory failure secondary to septic shock, source unknown, encephalopathy, acute kidney injury, rule out non-ST elevation myocardial infarction versus others. Abnormal chest x-ray. Acute kidney injury - likely vasomotor nephropathy Shock. Obstructive sleep apnea-hypopnea syndrome. History of cerebrovascular accident. Lower extremity edema History of Present Illness History of Present Illness Mr Soliz is a 65 yo M w/ PMHx diabetes type 2, depression, dyslipidemia, hypertension, CVA, PVD s/p left BKA who comes to the hospital due to being found unresponsive by his neighbor. Patient has had suicide attempts in the past. There is possible concerns of empty pill bottles and insulin OD. History is obtained from ED physician charting and chart review. Unable to obtain history from patient as the patient is intubated. Patient is in the ICU requiring high dose levophed and fluid boluses as well as ventilatory support. CXR this morning reviewed with left middle platelike atelectasis. CT head did not show any acute findings that would can attribute to his neurological exam. Afebrile. Hypoglycemic overnight started on D10 infusion. WBC 17 K Hb 10.40.8, glucose 80, mag 1.8, TSH 0.160. Vitals/I&O Vitals/I&O: Vital Signs Date Time Temp Pulse Resp B/P (MAP) Pulse Ox O2 Delivery O2 Flow Rate FiO2 01/15/20 07:36 99 Ventilator 01/15/20 07:00 122 23 119/63 (81) 01/15/20 04:00 99.0 99.0 01/15/20 00:39 15.0 I & O 01/14/20 01/14/20 01/15/20 15:00 23:00 07:00 Intake Total 1377 ml 2242.5 ml Output Total 295 ml 195 ml 300 ml Balance -295 ml 1182 ml 1942.5 ml Physical Exam General: No acute distress, Other (Sedated on vent) Heart: Regular rate Lungs: Clear Abdomen: Normal bowel sounds Skin: No rashes Labs Labs: Laboratory Tests Test 01/14/20 09:52 01/14/20 10:00 01/14/20 10:36 01/14/20 11:20 Glucose (Fingerstick) 91 mg/dL (70-99) 83 mg/dL (70-99) 112 mg/dL (70-99) Sodium Level 139 mmol/L (136-145) Potassium Level 3.4 mmol/L (3.5-5.1) Chloride Level 105 mmol/L (98-107) Carbon Dioxide Level 23 mmol/L (21-32) Anion Gap 11 (6-14) Blood Urea Nitrogen 30 mg/dL (8-26) Creatinine 1.7 mg/dL (0.7-1.3) Estimated GFR (Cockcroft-Gault) 40.5 Glucose Level 93 mg/dL (70-99) Calcium Level 8.4 mg/dL (8.5-10.1) Procalcitonin < 0.10 ng/mL (0.00-0.10) Test 01/14/20 12:43 01/14/20 14:23 01/14/20 16:45 01/14/20 16:48 Glucose (Fingerstick) 173 mg/dL (70-99) 139 mg/dL (70-99) 69 mg/dL (70-99) Sodium Level 138 mmol/L (136-145) Potassium Level 5.0 mmol/L (3.5-5.1) Chloride Level 106 mmol/L (98-107) Carbon Dioxide Level 22 mmol/L (21-32) Anion Gap 10 (6-14) Blood Urea Nitrogen 28 mg/dL (8-26) Creatinine 1.8 mg/dL (0.7-1.3) Estimated GFR (Cockcroft-Gault) 37.9 Glucose Level 77 mg/dL (70-99) Calcium Level 8.7 mg/dL (8.5-10.1) Test 01/14/20 17:21 01/14/20 18:35 01/14/20 19:49 01/14/20 20:57 Glucose (Fingerstick) 98 mg/dL (70-99) 91 mg/dL (70-99) 72 mg/dL (70-99) 49 mg/dL (70-99) Test 01/14/20 21:11 01/14/20 22:23 01/14/20 23:45 01/15/20 00:32 Glucose (Fingerstick) 122 mg/dL (70-99) 73 mg/dL (70-99) 72 mg/dL (70-99) 63 mg/dL (70-99) Test 01/15/20 00:45 01/15/20 02:02 01/15/20 03:56 01/15/20 04:32 Glucose (Fingerstick) 109 mg/dL (70-99) 74 mg/dL (70-99) 60 mg/dL (70-99) 80 mg/dL (70-99) Test 01/15/20 05:45 01/15/20 05:50 01/15/20 07:55 01/15/20 08:15 Glucose (Fingerstick) 81 mg/dL (70-99) Sodium Level 139 mmol/L (136-145) Potassium Level 4.4 mmol/L (3.5-5.1) Chloride Level 107 mmol/L (98-107) Carbon Dioxide Level 24 mmol/L (21-32) Anion Gap 8 (6-14) Blood Urea Nitrogen 24 mg/dL (8-26) Creatinine 1.8 mg/dL (0.7-1.3) Estimated GFR (Cockcroft-Gault) 37.9 Glucose Level 80 mg/dL (70-99) Calcium Level 8.2 mg/dL (8.5-10.1) Magnesium Level 1.8 mg/dL (1.8-2.4) Thyroid Stimulating Hormone (TSH) 0.160 uIU/mL (0.358-3.74) O2 Saturation 97 % (92-99) Arterial Blood pH 7.35 (7.35-7.45) Arterial Blood pCO2 at Patient Temp 32 mmHg (35-46) Arterial Blood pO2 at Patient Temp 95 mmHg (65-108) Arterial Blood HCO3 17 mmol/L (21-28) Arterial Blood Base Excess -7 mmol/L (-3-3) FiO2 40% White Blood Count 17.0 x10^3/uL (4.0-11.0) Red Blood Count 3.36 x10^6/uL (4.30-5.70) Hemoglobin 10.4 g/dL (13.0-17.5) Hematocrit 30.7 % (39.0-53.0) Mean Corpuscular Volume 91 fL (79-100) Mean Corpuscular Hemoglobin 31 pg (25-35) Mean Corpuscular Hemoglobin Concent 34 g/dL (31-37) Red Cell Distribution Width 15.3 % (11.5-14.5) Platelet Count 190 x10^3/uL (140-400) Neutrophils (%) (Auto) 70 % (31-73) Lymphocytes (%) (Auto) 19 % (24-48) Monocytes (%) (Auto) 11 % (0-9) Eosinophils (%) (Auto) 0 % (0-3) Basophils (%) (Auto) 0 % (0-3) Neutrophils # (Auto) 11.8 x10^3/uL (1.8-7.7) Lymphocytes # (Auto) 3.2 x10^3/uL (1.0-4.8) Monocytes # (Auto) 1.9 x10^3/uL (0.0-1.1) Eosinophils # (Auto) 0.0 x10^3/uL (0.0-0.7) Basophils # (Auto) 0.0 x10^3/uL (0.0-0.2) Test 01/15/20 08:17 Glucose (Fingerstick) 81 mg/dL (70-99) Assessment and Plan Assessmemt and Plan Problems Medical Problems: (1) Acute renal insufficiency Status: Acute (2) Altered mental status Status: Acute (3) Aspiration pneumonia Status: Acute (4) Hyperglycemia Status: Acute (5) Hypomagnesemia Status: Acute (6) Septic shock Status: Acute Comment Review of Relevant I have reviewed the following items lauryn (where applicable) has been applied. Medications: Current Medications Medications (Trade) Dose Ordered Sig/Serenity Route PRN Reason Start Time Stop Time Status Last Admin Dose Admin Vancomycin HCl 2 gm/Sodium Chloride 500 ml @ 250 mls/hr Q24H IV 01/14/20 23:00 01/14/20 23:42 Glucagon (Glucagen) 1 mg PRN Q15MIN PRN IV LOW BLOOD SUGAR 01/14/20 09:30 01/15/20 04:12 Potassium Chloride/Water 100 ml @ 100 mls/hr Q1H IV 01/14/20 11:00 01/14/20 14:59 DC 01/14/20 14:19 Pantoprazole Sodium (PROTONIX VIAL for IV PUSH) 40 mg DAILYAC IVP 01/14/20 13:00 01/15/20 07:30 Fentanyl Citrate 30 ml @ 0 mls/hr CONT PRN IV SEE PROTOCOL 01/14/20 16:00 01/15/20 00:39 Dextrose 1,000 ml @ 75 mls/hr [id number] IV 01/14/20 21:30 01/14/20 21:22 Justicifation of Admission Dx: Justifications for Admission: Justification of Admission Dx: Yes Aspiration Pneumonia: Hemodynamic Instability Sepsis: Altered Mental Status Altered Mental Status: Altered Mental Status SHERICE WILLIAMSON MD Jan 15, 2020 09:25
[2020-01-15 09:28] LABS: % ATYL 1 % (0-0); % BANDS 4 % (0-9); % EOS 1 % (0-5); % LYMPHS 22 % (24-48); % MONOS 8 % (0-10); % SEGS 64 % (35-66)
[2020-01-15 09:29] LABS: PLT ESTIMATE ADEQUATE (ADEQUATE)
[2020-01-15 09:30] LABS: POLYCHROMASIA SLIGHT
--- NOTE | 2020-01-15 09:30 | PDOC ---
PROGRESS NOTES Assessment Problems Medical Problems: (1) Acute renal insufficiency Status: Acute (2) Altered mental status Status: Acute (3) Aspiration pneumonia Status: Acute (4) Hyperglycemia Status: Acute (5) Hypomagnesemia Status: Acute (6) Septic shock Status: Acute Acute encephalopathy Fall Hyperglycemia and hypoglycemia, Respiratory failure, septic shock, acute kidney injury, possible non-ST elevation myocardial infarction History of cerebrovascular accident. History of suicidal gestures Plan Treat medical issues Repeat head CT, and electroencephalogram depending on course. Subjective None Objective Vital Signs Date Time Temp Pulse Resp B/P (MAP) Pulse Ox O2 Delivery O2 Flow Rate FiO2 01/15/20 07:36 99 Ventilator 01/15/20 07:00 122 23 119/63 (81) 01/15/20 04:00 99.0 99.0 01/15/20 00:39 15.0 Intake and Output 01/15/20 07:00 Intake Total 3619.5 ml Output Total 790 ml Balance 2829.5 ml Intake IV Total 3619.5 ml Output Urine Total 790 ml PHYSICAL EXAM Sedated, on ventilator PERRL. EOMI. CN: no focal findings. Muscle tone: normal. Muscle strength: minimal withdrawal to pain DTR: 1+ Plantar reflex: silent on right, left BKA Gait: not examined in bed. Sensory exam: not cooperative. Cerebellar: not cooperative Review of Relevant I have reviewed the following items lauryn (where applicable) has been applied. Labs Laboratory Tests Test 01/13/20 18:07 01/13/20 18:20 01/13/20 18:37 01/13/20 19:08 Glucose (Fingerstick) 339 mg/dL (70-99) White Blood Count 9.1 x10^3/uL (4.0-11.0) Red Blood Count 3.51 x10^6/uL (4.30-5.70) Hemoglobin 11.1 g/dL (13.0-17.5) Hematocrit 31.2 % (39.0-53.0) Mean Corpuscular Volume 89 fL (79-100) Mean Corpuscular Hemoglobin 32 pg (25-35) Mean Corpuscular Hemoglobin Concent 36 g/dL (31-37) Red Cell Distribution Width 14.9 % (11.5-14.5) Platelet Count 144 x10^3/uL (140-400) Neutrophils (%) (Auto) 59 % (31-73) Lymphocytes (%) (Auto) 34 % (24-48) Monocytes (%) (Auto) 5 % (0-9) Eosinophils (%) (Auto) 2 % (0-3) Basophils (%) (Auto) 0 % (0-3) Neutrophils # (Auto) 5.4 x10^3/uL (1.8-7.7) Lymphocytes # (Auto) 3.1 x10^3/uL (1.0-4.8) Monocytes # (Auto) 0.4 x10^3/uL (0.0-1.1) Eosinophils # (Auto) 0.2 x10^3/uL (0.0-0.7) Basophils # (Auto) 0.0 x10^3/uL (0.0-0.2) Prothrombin Time 14.3 SEC (11.7-14.0) Prothromb Time International Ratio 1.2 (0.8-1.1) Activated Partial Thromboplast Time 25 SEC (24-38) Sodium Level 138 mmol/L (136-145) Potassium Level 2.6 mmol/L (3.5-5.1) Chloride Level 101 mmol/L (98-107) Carbon Dioxide Level 21 mmol/L (21-32) Anion Gap 16 (6-14) Blood Urea Nitrogen 34 mg/dL (8-26) Creatinine 1.8 mg/dL (0.7-1.3) Estimated GFR (Cockcroft-Gault) 37.9 BUN/Creatinine Ratio 19 (6-20) Glucose Level 311 mg/dL (70-99) Lactic Acid Level 6.1 mmol/L (0.4-2.0) Calcium Level 9.4 mg/dL (8.5-10.1) Magnesium Level 1.7 mg/dL (1.8-2.4) Total Bilirubin 0.4 mg/dL (0.2-1.0) Aspartate Amino Transf (AST/SGOT) 11 U/L (15-37) Alanine Aminotransferase (ALT/SGPT) 25 U/L (16-63) Alkaline Phosphatase 87 U/L (46-116) Ammonia 15 mcmol/L (11-34) Creatine Kinase 42 U/L (39-308) Creatine Kinase MB (Mass) 1.8 ng/mL (0.0-3.6) Creatine Kinase MB Relative Index % (0-4) Troponin I Quantitative < 0.017 ng/mL (0.000-0.055) ZE-Eeq-X-Type Natriuretic Peptide 179 pg/mL (0-124) Total Protein 6.7 g/dL (6.4-8.2) Albumin 3.3 g/dL (3.4-5.0) Albumin/Globulin Ratio 1.0 (1.0-1.7) Lipase 344 U/L (73-393) Ethyl Alcohol Level < 10 mg/dL (0-10) Acetone Level Neg (NEG) O2 Saturation 98 % (92-99) Arterial Blood pH 7.29 (7.35-7.45) Arterial Blood pCO2 at Patient Temp 39 mmHg (35-46) Arterial Blood pO2 at Patient Temp 184 mmHg (65-108) Arterial Blood HCO3 18 mmol/L (21-28) Arterial Blood Base Excess -8 mmol/L (-3-3) Oxyhemoglobin 97.4 % Methemoglobin 0.6 % (0.0-1.9) Carbon Monoxide, Quantitative 0.1 % (0.0-1.9) FiO2 100 Urine Collection Type Unknown Urine Color Yellow Urine Clarity Clear Urine pH 5.0 (<5.0-8.0) Urine Specific [place] >=1.030 (1.000-1.030) Urine Protein Negative mg/dL (NEG-TRACE) Urine Glucose (UA) >=1000 mg/dL (NEG) Urine Ketones (Stick) Trace mg/dL (NEG) Urine Blood Negative (NEG) Urine Nitrite Negative (NEG) Urine Bilirubin Negative (NEG) Urine Urobilinogen Dipstick 0.2 mg/dL (0.2 mg/dL) Urine Leukocyte Esterase Negative (NEG) Urine RBC 0 /HPF (0-2) Urine WBC 0 /HPF (0-4) Urine Bacteria 0 /HPF (0-FEW) Urine Opiates Screen Neg (NEG) Urine Methadone Screen Neg (NEG) Urine Barbiturates Neg (NEG) Urine Phencyclidine Screen Neg (NEG) Urine Amphetamine/Methamphetamine Neg (NEG) Urine Benzodiazepines Screen Neg (NEG) Urine Cocaine Screen Neg (NEG) Urine Cannabinoids Screen Neg (NEG) Urine Ethyl Alcohol Neg (NEG) Test 01/13/20 20:59 01/13/20 23:01 01/13/20 23:24 01/13/20 23:37 Glucose (Fingerstick) 138 mg/dL (70-99) 56 mg/dL (70-99) 46 mg/dL (70-99) 114 mg/dL (70-99) Test 01/14/20 00:08 01/14/20 00:20 01/14/20 01:20 01/14/20 01:24 Glucose (Fingerstick) 105 mg/dL (70-99) 65 mg/dL (70-99) Lactic Acid Level < 0.3 mmol/L (0.4-2.0) Troponin I Quantitative 0.135 ng/mL (0.000-0.055) Sodium Level 140 mmol/L (136-145) Potassium Level 3.2 mmol/L (3.5-5.1) Chloride Level 107 mmol/L (98-107) Carbon Dioxide Level 21 mmol/L (21-32) Anion Gap 12 (6-14) Blood Urea Nitrogen 31 mg/dL (8-26) Creatinine 1.4 mg/dL (0.7-1.3) Estimated GFR (Cockcroft-Gault) 50.7 Glucose Level 65 mg/dL (70-99) Calcium Level 8.0 mg/dL (8.5-10.1) Test 01/14/20 01:38 01/14/20 03:07 01/14/20 03:16 01/14/20 04:22 Glucose (Fingerstick) 95 mg/dL (70-99) 67 mg/dL (70-99) 118 mg/dL (70-99) 72 mg/dL (70-99) Test 01/14/20 05:00 01/14/20 05:04 01/14/20 06:47 01/14/20 07:46 White Blood Count 15.9 x10^3/uL (4.0-11.0) Red Blood Count 3.12 x10^6/uL (4.30-5.70) Hemoglobin 9.7 g/dL (13.0-17.5) Hematocrit 28.1 % (39.0-53.0) Mean Corpuscular Volume 90 fL (79-100) Mean Corpuscular Hemoglobin 31 pg (25-35) Mean Corpuscular Hemoglobin Concent 35 g/dL (31-37) Red Cell Distribution Width 14.8 % (11.5-14.5) Platelet Count 175 x10^3/uL (140-400) Sodium Level 139 mmol/L (136-145) Potassium Level 3.1 mmol/L (3.5-5.1) Chloride Level 106 mmol/L (98-107) Carbon Dioxide Level 23 mmol/L (21-32) Anion Gap 10 (6-14) Blood Urea Nitrogen 31 mg/dL (8-26) Creatinine 1.5 mg/dL (0.7-1.3) Estimated GFR (Cockcroft-Gault) 46.8 Glucose Level 76 mg/dL (70-99) Calcium Level 8.2 mg/dL (8.5-10.1) Magnesium Level 2.0 mg/dL (1.8-2.4) Troponin I Quantitative 0.072 ng/mL (0.000-0.055) Glucose (Fingerstick) 74 mg/dL (70-99) 56 mg/dL (70-99) 81 mg/dL (70-99) Test 01/14/20 08:00 01/14/20 08:56 01/14/20 09:52 01/14/20 10:00 O2 Saturation 97 % (92-99) Arterial Blood pH 7.35 (7.35-7.45) Arterial Blood pCO2 at Patient Temp 36 mmHg (35-46) Arterial Blood pO2 at Patient Temp 108 mmHg (65-108) Arterial Blood HCO3 19 mmol/L (21-28) Arterial Blood Base Excess -6 mmol/L (-3-3) FiO2 40% vent Glucose (Fingerstick) 77 mg/dL (70-99) 91 mg/dL (70-99) Sodium Level 139 mmol/L (136-145) Potassium Level 3.4 mmol/L (3.5-5.1) Chloride Level 105 mmol/L (98-107) Carbon Dioxide Level 23 mmol/L (21-32) Anion Gap 11 (6-14) Blood Urea Nitrogen 30 mg/dL (8-26) Creatinine 1.7 mg/dL (0.7-1.3) Estimated GFR (Cockcroft-Gault) 40.5 Glucose Level 93 mg/dL (70-99) Calcium Level 8.4 mg/dL (8.5-10.1) Procalcitonin < 0.10 ng/mL (0.00-0.10) Test 01/14/20 10:36 01/14/20 11:20 01/14/20 12:43 01/14/20 14:23 Glucose (Fingerstick) 83 mg/dL (70-99) 112 mg/dL (70-99) 173 mg/dL (70-99) 139 mg/dL (70-99) Test 01/14/20 16:45 01/14/20 16:48 01/14/20 17:21 01/14/20 18:35 Sodium Level 138 mmol/L (136-145) Potassium Level 5.0 mmol/L (3.5-5.1) Chloride Level 106 mmol/L (98-107) Carbon Dioxide Level 22 mmol/L (21-32) Anion Gap 10 (6-14) Blood Urea Nitrogen 28 mg/dL (8-26) Creatinine 1.8 mg/dL (0.7-1.3) Estimated GFR (Cockcroft-Gault) 37.9 Glucose Level 77 mg/dL (70-99) Calcium Level 8.7 mg/dL (8.5-10.1) Glucose (Fingerstick) 69 mg/dL (70-99) 98 mg/dL (70-99) 91 mg/dL (70-99) Test 01/14/20 19:49 01/14/20 20:57 01/14/20 21:11 01/14/20 22:23 Glucose (Fingerstick) 72 mg/dL (70-99) 49 mg/dL (70-99) 122 mg/dL (70-99) 73 mg/dL (70-99) Test 01/14/20 23:45 01/15/20 00:32 01/15/20 00:45 01/15/20 02:02 Glucose (Fingerstick) 72 mg/dL (70-99) 63 mg/dL (70-99) 109 mg/dL (70-99) 74 mg/dL (70-99) Test 01/15/20 03:56 01/15/20 04:32 01/15/20 05:45 01/15/20 05:50 Glucose (Fingerstick) 60 mg/dL (70-99) 80 mg/dL (70-99) 81 mg/dL (70-99) Sodium Level 139 mmol/L (136-145) Potassium Level 4.4 mmol/L (3.5-5.1) Chloride Level 107 mmol/L (98-107) Carbon Dioxide Level 24 mmol/L (21-32) Anion Gap 8 (6-14) Blood Urea Nitrogen 24 mg/dL (8-26) Creatinine 1.8 mg/dL (0.7-1.3) Estimated GFR (Cockcroft-Gault) 37.9 Glucose Level 80 mg/dL (70-99) Calcium Level 8.2 mg/dL (8.5-10.1) Magnesium Level 1.8 mg/dL (1.8-2.4) Thyroid Stimulating Hormone (TSH) 0.160 uIU/mL (0.358-3.74) Test 01/15/20 07:55 01/15/20 08:15 01/15/20 08:17 O2 Saturation 97 % (92-99) Arterial Blood pH 7.35 (7.35-7.45) Arterial Blood pCO2 at Patient Temp 32 mmHg (35-46) Arterial Blood pO2 at Patient Temp 95 mmHg (65-108) Arterial Blood HCO3 17 mmol/L (21-28) Arterial Blood Base Excess -7 mmol/L (-3-3) FiO2 40% White Blood Count 17.0 x10^3/uL (4.0-11.0) Red Blood Count 3.36 x10^6/uL (4.30-5.70) Hemoglobin 10.4 g/dL (13.0-17.5) Hematocrit 30.7 % (39.0-53.0) Mean Corpuscular Volume 91 fL (79-100) Mean Corpuscular Hemoglobin 31 pg (25-35) Mean Corpuscular Hemoglobin Concent 34 g/dL (31-37) Red Cell Distribution Width 15.3 % (11.5-14.5) Platelet Count 190 x10^3/uL (140-400) Neutrophils (%) (Auto) 70 % (31-73) Lymphocytes (%) (Auto) 19 % (24-48) Monocytes (%) (Auto) 11 % (0-9) Eosinophils (%) (Auto) 0 % (0-3) Basophils (%) (Auto) 0 % (0-3) Neutrophils # (Auto) 11.8 x10^3/uL (1.8-7.7) Lymphocytes # (Auto) 3.2 x10^3/uL (1.0-4.8) Monocytes # (Auto) 1.9 x10^3/uL (0.0-1.1) Eosinophils # (Auto) 0.0 x10^3/uL (0.0-0.7) Basophils # (Auto) 0.0 x10^3/uL (0.0-0.2) Glucose (Fingerstick) 81 mg/dL (70-99) Laboratory Tests Test 01/14/20 09:52 01/14/20 10:00 01/14/20 10:36 01/14/20 11:20 Glucose (Fingerstick) 91 mg/dL (70-99) 83 mg/dL (70-99) 112 mg/dL (70-99) Sodium Level 139 mmol/L (136-145) Potassium Level 3.4 mmol/L (3.5-5.1) Chloride Level 105 mmol/L (98-107) Carbon Dioxide Level 23 mmol/L (21-32) Anion Gap 11 (6-14) Blood Urea Nitrogen 30 mg/dL (8-26) Creatinine 1.7 mg/dL (0.7-1.3) Estimated GFR (Cockcroft-Gault) 40.5 Glucose Level 93 mg/dL (70-99) Calcium Level 8.4 mg/dL (8.5-10.1) Procalcitonin < 0.10 ng/mL (0.00-0.10) Test 01/14/20 12:43 01/14/20 14:23 01/14/20 16:45 01/14/20 16:48 Glucose (Fingerstick) 173 mg/dL (70-99) 139 mg/dL (70-99) 69 mg/dL (70-99) Sodium Level 138 mmol/L (136-145) Potassium Level 5.0 mmol/L (3.5-5.1) Chloride Level 106 mmol/L (98-107) Carbon Dioxide Level 22 mmol/L (21-32) Anion Gap 10 (6-14) Blood Urea Nitrogen 28 mg/dL (8-26) Creatinine 1.8 mg/dL (0.7-1.3) Estimated GFR (Cockcroft-Gault) 37.9 Glucose Level 77 mg/dL (70-99) Calcium Level 8.7 mg/dL (8.5-10.1) Test 01/14/20 17:21 01/14/20 18:35 01/14/20 19:49 01/14/20 20:57 Glucose (Fingerstick) 98 mg/dL (70-99) 91 mg/dL (70-99) 72 mg/dL (70-99) 49 mg/dL (70-99) Test 01/14/20 21:11 01/14/20 22:23 01/14/20 23:45 01/15/20 00:32 Glucose (Fingerstick) 122 mg/dL (70-99) 73 mg/dL (70-99) 72 mg/dL (70-99) 63 mg/dL (70-99) Test 01/15/20 00:45 01/15/20 02:02 01/15/20 03:56 01/15/20 04:32 Glucose (Fingerstick) 109 mg/dL (70-99) 74 mg/dL (70-99) 60 mg/dL (70-99) 80 mg/dL (70-99) Test 01/15/20 05:45 01/15/20 05:50 01/15/20 07:55 01/15/20 08:15 Glucose (Fingerstick) 81 mg/dL (70-99) Sodium Level 139 mmol/L (136-145) Potassium Level 4.4 mmol/L (3.5-5.1) Chloride Level 107 mmol/L (98-107) Carbon Dioxide Level 24 mmol/L (21-32) Anion Gap 8 (6-14) Blood Urea Nitrogen 24 mg/dL (8-26) Creatinine 1.8 mg/dL (0.7-1.3) Estimated GFR (Cockcroft-Gault) 37.9 Glucose Level 80 mg/dL (70-99) Calcium Level 8.2 mg/dL (8.5-10.1) Magnesium Level 1.8 mg/dL (1.8-2.4) Thyroid Stimulating Hormone (TSH) 0.160 uIU/mL (0.358-3.74) O2 Saturation 97 % (92-99) Arterial Blood pH 7.35 (7.35-7.45) Arterial Blood pCO2 at Patient Temp 32 mmHg (35-46) Arterial Blood pO2 at Patient Temp 95 mmHg (65-108) Arterial Blood HCO3 17 mmol/L (21-28) Arterial Blood Base Excess -7 mmol/L (-3-3) FiO2 40% White Blood Count 17.0 x10^3/uL (4.0-11.0) Red Blood Count 3.36 x10^6/uL (4.30-5.70) Hemoglobin 10.4 g/dL (13.0-17.5) Hematocrit 30.7 % (39.0-53.0) Mean Corpuscular Volume 91 fL (79-100) Mean Corpuscular Hemoglobin 31 pg (25-35) Mean Corpuscular Hemoglobin Concent 34 g/dL (31-37) Red Cell Distribution Width 15.3 % (11.5-14.5) Platelet Count 190 x10^3/uL (140-400) Neutrophils (%) (Auto) 70 % (31-73) Lymphocytes (%) (Auto) 19 % (24-48) Monocytes (%) (Auto) 11 % (0-9) Eosinophils (%) (Auto) 0 % (0-3) Basophils (%) (Auto) 0 % (0-3) Neutrophils # (Auto) 11.8 x10^3/uL (1.8-7.7) Lymphocytes # (Auto) 3.2 x10^3/uL (1.0-4.8) Monocytes # (Auto) 1.9 x10^3/uL (0.0-1.1) Eosinophils # (Auto) 0.0 x10^3/uL (0.0-0.7) Basophils # (Auto) 0.0 x10^3/uL (0.0-0.2) Test 01/15/20 08:17 Glucose (Fingerstick) 81 mg/dL (70-99) Microbiology 01/14/20 Blood Culture - Preliminary, Resulted NO GROWTH AFTER 1 DAY Medications Current Medications Sodium Chloride 1,000 ml @ 1,000 mls/hr 1X ONCE IV Last administered on 01/13/20at 18:20; Start 01/13/20 at 18:45; Stop 01/13/20 at 19:44; Status DC Sodium Chloride 1,000 ml @ 1,000 mls/hr 1X ONCE IV Last administered on 01/13/20at 18:35; Start 01/13/20 at 18:45; Stop 01/13/20 at 19:44; Status DC Fentanyl Citrate (Fentanyl 2ml Vial) 50 mcg PRN Q1HR PRN IV SEE COMMENTS; Start 01/13/20 at 18:45 Chlorhexidine Gluconate (Peridex) 15 ml BID MM Last administered on 01/14/20at 20:50; Start 01/13/20 at 21:00 Midazolam HCl (Versed) 5 mg PRN Q1HR PRN IV AGITATION Last administered on 01/13/20at 19:53; Start 01/13/20 at 18:45 Etomidate (Amidate) 20 mg STK-MED ONCE IV ; Start 01/13/20 at 18:58; Stop 01/13/20 at 18:59; Status DC Rocuronium [place] (Zemuron) 50 mg STK-MED ONCE .ROUTE ; Start 01/13/20 at 18:59; Stop 01/13/20 at 18:59; Status DC Rocuronium [place] (Zemuron) 50 mg 1X ONCE IV Last administered on 01/13/20at 19:52; Start 01/13/20 at 19:00; Stop 01/13/20 at 19:25; Status DC Etomidate (Amidate) 20 mg 1X ONCE IV Last administered on 01/13/20at 19:52; Start 01/13/20 at 19:00; Stop 01/13/20 at 19:25; Status DC Potassium Chloride/Water 100 ml @ 100 mls/hr Q1H IV Last administered on 01/14/20at 00:34; Start 01/13/20 at 19:15; Stop 01/13/20 at 23:14; Status DC Norepinephrine Bitartrate 8 mg/ Dextrose 258 ml @ 24.633 mls/ hr 1X ONCE IV Last administered on 01/13/20at 19:45; Start 01/13/20 at 19:45; Stop 01/14/20 at 06:13; Status DC Piperacillin Sod/ Tazobactam Sod 4.5 gm/Sodium Chloride 100 ml @ 200 mls/hr 1X ONCE IV Last administered on 01/13/20at 19:45; Start 01/13/20 at 19:45; Stop 01/13/20 at 20:14; Status DC Sodium Chloride 1,000 ml @ 1,000 mls/hr 1X ONCE IV Last administered on 01/13/20at 19:45; Start 01/13/20 at 19:45; Stop 01/13/20 at 20:44; Status DC Levofloxacin/ Dextrose 150 ml @ 100 mls/hr 1X ONCE IV Last administered on 01/13/20at 21:05; Start 01/13/20 at 21:00; Stop 01/13/20 at 22:29; Status DC Vancomycin HCl (Vanco Per Pharmacy) 1 each PRN DAILY PRN MC SEE COMMENTS Last administered on 01/15/20at 09:02; Start 01/13/20 at 19:45 Magnesium Sulfate 50 ml @ 25 mls/hr 1X ONCE IV Last administered on 01/14/20at 01:11; Start 01/13/20 at 19:45; Stop 01/13/20 at 21:44; Status DC Insulin Human Regular (HumuLIN R VIAL) 12 unit 1X ONCE SQ Last administered on 01/13/20at 19:45; Start 01/13/20 at 19:45; Stop 01/13/20 at 19:46; Status DC Ondansetron HCl (Zofran) 4 mg PRN Q8HRS PRN IV NAUSEA/VOMITING; Start 01/13/20 at 20:45; Stop 01/14/20 at 20:44; Status DC Insulin Human Lispro (HumaLOG) 0-5 UNITS TIDWMEALS SQ ; Start 01/14/20 at 08:00 Dextrose (Dextrose 50%-Water Syringe) 12.5 gm PRN Q15MIN PRN IV SEE COMMENTS Last administered on 01/15/20at 00:41; Start 01/13/20 at 20:45 Sodium Chloride 1,000 ml @ 100 mls/hr 1X ONCE IV Last administered on 01/13/20 at 21:10; Start 01/13/20 at 20:45; Stop 01/14/20 at 06:44; Status DC Vancomycin HCl 2 gm/Sodium Chloride 500 ml @ 250 mls/hr 1X ONCE IV Last administered on 01/13/20at 22:59; Start 01/13/20 at 21:00; Stop 01/13/20 at 22:59; Status DC Midazolam HCl 100 ml @ 0 mls/hr CONT PRN IV SEE PROTOCOL Last administered on 01/13/20at 23:01; Start 01/13/20 at 22:15 Vancomycin HCl 2 gm/Sodium Chloride 500 ml @ 250 mls/hr Q24H IV Last administered on 01/14/20at 23:42; Start 01/14/20 at 23:00 Vancomycin HCl (Vancomycin Trough Level) 1 each 1X ONCE MC ; Start 01/15/20 at 22:30; Stop 01/15/20 at 22:31 Enoxaparin Sodium (Lovenox Per Pharmacy Prophylaxis Dosing) 1 each PRN DAILY PRN MC SEE COMMENTS; Start 01/14/20 at 02:00 Potassium Chloride 20 meq/ Dextrose/Sodium Chloride 1,010 ml @ 85 mls/hr [id number] IV ; Start 01/14/20 at 02:00; Status UNV Potassium Chloride/Dextrose/ Sod Cl 1,000 ml @ 85 mls/hr [id number] IV Last administered on 01/14/20at 14:19; Start 01/14/20 at 02:15; Stop 01/14/20 at 21:20; Status DC Enoxaparin Sodium (Lovenox 40mg Syringe) 40 mg QHS SQ Last administered on 01/14/20at 20:50; Start 01/14/20 at 02:15 Norepinephrine Bitartrate 8 mg/ Dextrose 258 ml @ 22.678 mls/ hr CONT PRN IV PER PROTOCOL Last administered on 01/14/20at 02:42; Start 01/14/20 at 02:45; Stop 01/14/20 at 09:00; Status DC Norepinephrine Bitartrate 32 mg/ Dextrose 250 ml @ 5.484 mls/ hr CONT PRN IV SEE I/O RECORD Last administered on 01/15/20at 04:06; Start 01/14/20 at 07:45 Glucagon (Glucagen) 1 mg PRN Q15MIN PRN IV LOW BLOOD SUGAR Last administered on 01/15/20at 04:12; Start 01/14/20 at 09:30 Vasopressin 20 unit/Dextrose 101 ml @ 12 mls/hr CONT PRN IV SEE I/O RECORD; Start 01/14/20 at 09:45 Potassium Chloride/Water 100 ml @ 100 mls/hr Q1H IV Last administered on 8/2/20at 14:19; Start 01/14/20 at 11:00; Stop 01/14/20 at 14:59; Status DC Vancomycin HCl 1.75 gm/Sodium Chloride 500 ml @ 250 mls/hr Q18H IV ; Start 01/14/20 at 17:00; Status Cancel Pantoprazole Sodium (PROTONIX VIAL for IV PUSH) 40 mg DAILYAC IVP Last administered on 01/15/20at 07:30; Start 01/14/20 at 13:00 Fentanyl Citrate 30 ml @ 0 mls/hr CONT PRN IV SEE I/O RECORD; Start 01/14/20 at 16:00; Status Cancel Naloxone HCl (Narcan) 0.4 mg PRN Q2MIN PRN IV SEE INSTRUCTIONS; Start 01/14/20 at 16:00 Sodium Chloride 1,000 ml @ 25 mls/hr Q24H IV ; Start 01/14/20 at 15:52 Fentanyl Citrate 30 ml @ 0 mls/hr CONT PRN IV SEE PROTOCOL Last administered on 01/15/20at 00:39; Start 01/14/20 at 16:00 Dextrose 1,000 ml @ 75 mls/hr [id number] IV Last administered on 01/14/20at 21:22; Start 01/14/20 at 21:30 Active Scripts Active Aspirin 325 Mg Tablet 325 Mg PO [id number] 30 Days Atorvastatin Calcium 20 Mg Tablet 20 Mg PO QHS 30 Days Reported Trazodone Hcl 50 Mg Tablet 1 Tab PO QHS Celexa (Citalopram Hydrobromide) 10 Mg Tablet 1 Tab PO DAILY Lantus Solostar (Insulin Glargine,Hum.rec.anlog) 100 Unit/1 Ml Insuln.pen 65 Unit SQ QHS Gabapentin (Gabapentin) 300 Mg Capsule 300 Mg PO TID Nexium Capsule (Esomeprazole Magnesium) 20 Mg Capsule.dr 1 Cap PO DAILY Actos (Pioglitazone Hcl) 30 Mg Tablet 30 Mg PO DAILY Metformin Hcl 500 Mg Tablet 500 Mg PO BIDWMEALS Vitals/I & O Vital Sign - Last 24 Hours 01/14/20 01/14/20 01/14/20 01/14/20 09:35 10:00 11:00 11:12 Pulse 90 123 Resp 19 20 B/P (MAP) 153/65 (94) 118/56 (76) Pulse Ox 100 100 100 100 O2 Delivery Ventilator Ventilator Ventilator Ventilator 01/14/20 01/14/20 01/14/20 01/14/20 12:00 12:00 13:00 13:01 Temp 98.7 98.7 Pulse 124 125 Resp 21 B/P (MAP) 117/58 (77) 115/56 (75) Pulse Ox 100 100 100 O2 Delivery Ventilator Mechanical Ventilator Ventilator Ventilator 01/14/20 01/14/20 01/14/20 01/14/20 14:00 15:00 15:43 16:00 Pulse 125 124 Resp 20 20 B/P (MAP) 102/55 (71) 106/56 (73) Pulse Ox 100 100 100 O2 Delivery Ventilator Ventilator Ventilator Mechanical Ventilator 01/14/20 01/14/20 01/14/20 01/14/20 16:00 17:00 17:22 18:00 Temp 99.4 99.4 Pulse 124 121 120 Resp 18 20 B/P (MAP) 107/53 (71) 116/57 (76) 103/54 (70) Pulse Ox 100 100 100 100 O2 Delivery Ventilator Ventilator Ventilator Ventilator 01/14/20 01/14/20 01/14/20 01/14/20 19:00 20:00 20:00 20:29 Temp 99.7 99.7 Pulse 120 120 Resp 20 B/P (MAP) 102/54 (70) 118/56 (76) Pulse Ox 100 100 100 O2 Delivery Ventilator Ventilator Mechanical Ventilator Ventilator 01/14/20 01/14/20 01/14/20 01/15/20 21:00 22:00 23:00 00:00 Temp 99.2 99.2 Pulse 118 119 118 122 Resp 23 23 23 23 B/P (MAP) 116/56 (76) 109/57 (74) 111/55 (73) 128/56 (80) Pulse Ox 99 100 100 100 O2 Delivery Ventilator Ventilator Ventilator Ventilator 01/15/20 01/15/20 01/15/20 01/15/20 00:00 00:15 00:39 01:00 Pulse 119 Resp 23 B/P (MAP) 90/52 (65) Pulse Ox 100 100 100 O2 Delivery Mechanical Ventilator Ventilator Ventilator O2 Flow Rate 15.0 01/15/20 01/15/20 01/15/20 01/15/20 02:00 03:00 04:00 04:00 Temp 99.0 99.0 Pulse 118 119 118 Resp 23 B/P (MAP) 114/53 (73) 116/58 (77) 119/58 (78) Pulse Ox 100 100 100 O2 Delivery Ventilator Ventilator Ventilator Mechanical Ventilator 01/15/20 01/15/20 01/15/20 01/15/20 04:30 05:00 05:45 06:00 Pulse 117 110 121 Resp 22 B/P (MAP) 102/55 (71) 80/56 (64) 156/85 (108) Pulse Ox 100 100 100 100 O2 Delivery Ventilator Ventilator Ventilator Ventilator 01/15/20 01/15/20 01/15/20 01/15/20 06:10 06:25 07:00 07:36 Pulse 122 118 122 Resp 23 B/P (MAP) 148/75 (99) 102/62 (75) 119/63 (81) Pulse Ox 100 99 O2 Delivery Ventilator Ventilator Intake and Output 01/14/20 01/14/20 01/15/20 15:00 23:00 07:00 Intake Total 1377 ml 2242.5 ml Output Total 295 ml 195 ml 300 ml Balance -295 ml 1182 ml 1942.5 ml Justicifation of Admission Dx: Justifications for Admission: Justification of Admission Dx: Yes Aspiration Pneumonia: Hemodynamic Instability Sepsis: Altered Mental Status Altered Mental Status: Altered Mental Status YAZ ESCOBEDO MD Jan 15, 2020 09:30
[2020-01-15] MEDS ORDERED: IV NORMAL SALINE 1000ML BAG 1,000 ML IV ONE (09:45)
[2020-01-15] MEDS: IV DEXTROSE 10% 1,000 ML IV SCH (11:15)
--- NOTE | 2020-01-15 12:28 | NUR ---
SS following for discharge planning. SS reviewed pt chart and discussed with pt RN. Pt is from home with spouse and is currently on the vent. Possible SI overdose. Pt was found face down at home and apparently overdosed on medications. Pt on IV Vancomycin and Levophed. COVID19 pending. Per RN, pt will need psychiatric referral and PAT team referral once awake. SS notified PAT team. SS will continue to follow for discharge planning.
[2020-01-15] MEDS ORDERED: IV NORMAL SALINE 500ML BAG 500 ML IV ONE (12:30)
--- NOTE | 2020-01-15 14:01 | PDOC ---
SUBJECTIVE ROS Stable, remains Intubated and on levophed OBJECTIVE Vital Signs Vital Signs Date Time Temp Pulse Resp B/P (MAP) Pulse Ox O2 Delivery O2 Flow Rate FiO2 01/15/20 13:30 88 124/70 (88) 01/15/20 13:00 20 100 Ventilator 01/15/20 12:00 98.6 98.6 01/15/20 00:39 15.0 I & 0 Intake and Output 01/15/20 07:00 Intake Total 3619.5 ml Output Total 790 ml Balance 2829.5 ml Intake IV Total 3619.5 ml Output Urine Total 790 ml PHYSICAL EXAM Physical Exam GEN: Intubated, On MV HEENT: Intubated NECK: Supple LUNGS: Clear to auscultation ant HEART: RRR, S!, S2 present. ABDOMEN: Soft, nontender. EXTREMITIES: No clubbing, cyanosis, or edema. Left below knee amputation NEUROLOGIC: Intubated PSYCHIATRIC: Intubated SKIN: No rash Brooks + DIAGNOSIS/ASSESSMENT Assessment & Plan BRYCE - ATN ,Creat 1.7-1.8 , not at baseline E-lytes stable , UA unremarkable , Supportive care , strict I/O, Avoid nephrotoxins CKD stage 2- Baseline Cr probably 1.2 with BRYCE in 2017 Acute hypoxemic respiratory failure secondary to septic shock, source unknown CoVid 19 pending Encephalopathy- suspected suicidal attempt with insulin Abnormal chest x-ray Septic Shock Diabetes mellitus History of cerebrovascular accident. Lower extremity edema. COMMENT/RELEVANT DATA Meds Current Medications Medications (Trade) Dose Ordered Sig/Serenity Start Time Stop Time Status Last Admin Dose Admin Chlorhexidine Gluconate (Peridex) 15 ml BID 01/13/20 21:00 01/14/20 20:50 15 ML Dextrose 1,000 ml @ 75 mls/hr [id number] 01/14/20 21:30 01/15/20 11:15 75 MLS/HR Dextrose (Dextrose 50%-Water Syringe) 12.5 gm PRN Q15MIN PRN 01/13/20 20:45 01/15/20 00:41 12.5 GM Enoxaparin Sodium (Lovenox 40mg Syringe) 40 mg QHS 01/14/20 02:15 01/14/20 20:50 40 MG Enoxaparin Sodium (Lovenox Per Pharmacy Prophylaxis Dosing) 1 each PRN DAILY PRN 01/14/20 02:00 Etomidate (Amidate) 20 mg 1X ONCE 01/13/20 19:00 01/13/20 19:25 DC 01/13/20 19:52 20 MG Fentanyl Citrate 30 ml @ 0 mls/hr CONT PRN 01/14/20 16:00 01/15/20 09:50 2.5 MLS/HR Fentanyl Citrate (Fentanyl 2ml Vial) 50 mcg PRN Q1HR PRN 01/13/20 18:45 Glucagon (Glucagen) 1 mg PRN Q15MIN PRN 01/14/20 09:30 01/15/20 04:12 1 MG Insulin Human Lispro (HumaLOG) 0-5 UNITS TIDWMEALS 01/14/20 08:00 Insulin Human Regular (HumuLIN R VIAL) 12 unit 1X ONCE 01/13/20 19:45 01/13/20 19:46 DC 01/13/20 19:45 12 UNIT Levofloxacin/ Dextrose 150 ml @ 100 mls/hr 1X ONCE 01/13/20 21:00 01/13/20 22:29 DC 01/13/20 21:05 100 MLS/HR Magnesium Sulfate 50 ml @ 25 mls/hr 1X ONCE 01/13/20 19:45 01/13/20 21:44 DC 01/14/20 01:11 25 MLS/HR Midazolam HCl 100 ml @ 0 mls/hr CONT PRN 01/13/20 22:15 01/13/20 23:01 1 MLS/HR Midazolam HCl (Versed) 5 mg PRN Q1HR PRN 01/13/20 18:45 01/13/20 19:53 5 MG Naloxone HCl (Narcan) 0.4 mg PRN Q2MIN PRN 01/14/20 16:00 Norepinephrine Bitartrate 32 mg/ Dextrose 250 ml @ 5.484 mls/ hr CONT PRN 01/14/20 07:45 01/15/20 04:06 21.938 MLS/HR Norepinephrine Bitartrate 8 mg/ Dextrose 258 ml @ 22.678 mls/ hr CONT PRN 01/14/20 02:45 01/14/20 09:00 DC 01/14/20 02:42 32.9 MLS/HR Ondansetron HCl (Zofran) 4 mg PRN Q8HRS PRN 01/13/20 20:45 01/14/20 20:44 DC Pantoprazole Sodium (PROTONIX VIAL for IV PUSH) 40 mg DAILYAC 01/14/20 13:00 01/15/20 07:30 40 MG Piperacillin Sod/ Tazobactam Sod 4.5 gm/Sodium Chloride 100 ml @ 200 mls/hr 1X ONCE 01/13/20 19:45 01/13/20 20:14 DC 01/13/20 19:45 200 MLS/HR Potassium Chloride 20 meq/ Dextrose/Sodium Chloride 1,010 ml @ 85 mls/hr [id number] 01/14/20 02:00 UNV Potassium Chloride/Dextrose/ Sod Cl 1,000 ml @ 85 mls/hr [id number] 01/14/20 02:15 01/14/20 21:20 DC 01/14/20 14:19 85 MLS/HR Potassium Chloride/Water 100 ml @ 100 mls/hr Q1H 01/14/20 11:00 01/14/20 14:59 DC 01/14/20 14:19 100 MLS/HR Rocuronium Abbott (Zemuron) 50 mg 1X ONCE 01/13/20 19:00 01/13/20 19:25 DC 01/13/20 19:52 50 MG Sodium Chloride 500 ml @ 500 mls/hr 1X ONCE 01/15/20 12:30 01/15/20 13:29 DC 01/15/20 12:30 500 MLS/HR Vancomycin HCl (Vanco Per Pharmacy) 1 each PRN DAILY PRN 01/13/20 19:45 01/15/20 09:02 1 EACH Vancomycin HCl (Vancomycin Trough Level) 1 each 1X ONCE 01/15/20 22:30 01/15/20 22:31 Vancomycin HCl 1.75 gm/Sodium Chloride 500 ml @ 250 mls/hr Q18H 01/14/20 17:00 Cancel Vancomycin HCl 2 gm/Sodium Chloride 500 ml @ 250 mls/hr Q24H 01/14/20 23:00 01/14/20 23:42 250 MLS/HR Vasopressin 20 unit/Dextrose 101 ml @ 12 mls/hr CONT PRN 01/14/20 09:45 Lab Laboratory Tests Test 01/14/20 14:23 01/14/20 16:45 01/14/20 16:48 01/14/20 17:21 Glucose (Fingerstick) 139 mg/dL (70-99) 69 mg/dL (70-99) 98 mg/dL (70-99) Sodium Level 138 mmol/L (136-145) Potassium Level 5.0 mmol/L (3.5-5.1) Chloride Level 106 mmol/L (98-107) Carbon Dioxide Level 22 mmol/L (21-32) Anion Gap 10 (6-14) Blood Urea Nitrogen 28 mg/dL (8-26) Creatinine 1.8 mg/dL (0.7-1.3) Estimated GFR (Cockcroft-Gault) 37.9 Glucose Level 77 mg/dL (70-99) Calcium Level 8.7 mg/dL (8.5-10.1) Test 01/14/20 18:35 01/14/20 19:49 01/14/20 20:57 01/14/20 21:11 Glucose (Fingerstick) 91 mg/dL (70-99) 72 mg/dL (70-99) 49 mg/dL (70-99) 122 mg/dL (70-99) Test 01/14/20 22:23 01/14/20 23:45 01/15/20 00:32 01/15/20 00:45 Glucose (Fingerstick) 73 mg/dL (70-99) 72 mg/dL (70-99) 63 mg/dL (70-99) 109 mg/dL (70-99) Test 01/15/20 02:02 01/15/20 03:56 01/15/20 04:32 01/15/20 05:45 Glucose (Fingerstick) 74 mg/dL (70-99) 60 mg/dL (70-99) 80 mg/dL (70-99) 81 mg/dL (70-99) Test 01/15/20 05:50 01/15/20 07:55 01/15/20 08:15 01/15/20 08:17 Sodium Level 139 mmol/L (136-145) Potassium Level 4.4 mmol/L (3.5-5.1) Chloride Level 107 mmol/L (98-107) Carbon Dioxide Level 24 mmol/L (21-32) Anion Gap 8 (6-14) Blood Urea Nitrogen 24 mg/dL (8-26) Creatinine 1.8 mg/dL (0.7-1.3) Estimated GFR (Cockcroft-Gault) 37.9 Glucose Level 80 mg/dL (70-99) Calcium Level 8.2 mg/dL (8.5-10.1) Magnesium Level 1.8 mg/dL (1.8-2.4) Vitamin B12 Level 961 pg/mL (247-911) Thyroid Stimulating Hormone (TSH) 0.160 uIU/mL (0.358-3.74) O2 Saturation 97 % (92-99) Arterial Blood pH 7.35 (7.35-7.45) Arterial Blood pCO2 at Patient Temp 32 mmHg (35-46) Arterial Blood pO2 at Patient Temp 95 mmHg (65-108) Arterial Blood HCO3 17 mmol/L (21-28) Arterial Blood Base Excess -7 mmol/L (-3-3) FiO2 40% White Blood Count 17.0 x10^3/uL (4.0-11.0) Red Blood Count 3.36 x10^6/uL (4.30-5.70) Hemoglobin 10.4 g/dL (13.0-17.5) Hematocrit 30.7 % (39.0-53.0) Mean Corpuscular Volume 91 fL (79-100) Mean Corpuscular Hemoglobin 31 pg (25-35) Mean Corpuscular Hemoglobin Concent 34 g/dL (31-37) Red Cell Distribution Width 15.3 % (11.5-14.5) Platelet Count 190 x10^3/uL (140-400) Neutrophils (%) (Auto) 70 % (31-73) Lymphocytes (%) (Auto) 19 % (24-48) Monocytes (%) (Auto) 11 % (0-9) Eosinophils (%) (Auto) 0 % (0-3) Basophils (%) (Auto) 0 % (0-3) Neutrophils # (Auto) 11.8 x10^3/uL (1.8-7.7) Lymphocytes # (Auto) 3.2 x10^3/uL (1.0-4.8) Monocytes # (Auto) 1.9 x10^3/uL (0.0-1.1) Eosinophils # (Auto) 0.0 x10^3/uL (0.0-0.7) Basophils # (Auto) 0.0 x10^3/uL (0.0-0.2) Segmented Neutrophils % 64 % (35-66) Band Neutrophils % 4 % (0-9) Lymphocytes % 22 % (24-48) Atypical Lymphocytes % (Manual) 1 % (0-0) Monocytes % 8 % (0-10) Eosinophils % 1 % (0-5) Platelet Estimate Adequate (ADEQUATE) Polychromasia Slight Glucose (Fingerstick) 81 mg/dL (70-99) Test 01/15/20 10:01 01/15/20 11:39 Glucose (Fingerstick) 73 mg/dL (70-99) 70 mg/dL (70-99) Results All relevant outside records, renal labs, imaging studies, telemetry/EKG's were reviewed. Justicifation of Admission Dx: Justifications for Admission: Justification of Admission Dx: Yes Aspiration Pneumonia: Hemodynamic Instability Sepsis: Altered Mental Status Altered Mental Status: Altered Mental Status SVITLANA FELIZ MD Jan 15, 2020 14:01
[2020-01-15] MEDS: MIDAZOLAM 100mg/100ml NS BAG 100 ML IV PRN (14:38)
--- NOTE | 2020-01-15 15:17 | EKG ---
[facility] [address] [place] [address] Test Date: 2020-01-13 Test Time: 18:10:19 Pat Name: RED MOMIN Department: Room: Gender: M [employer]: : [id number] Requested By: DARRYL FELIPE Order Number: [id number] Reading MD: Measurements Intervals [place] Rate: 96 P: -68 IA: 146 QRS: -30 QRSD: 86 T: 41 QT: 408 QTc: 516 Interpretive Statements SINUS RHYTHM ABNORMAL LEFT AXIS DEVIATION QRS(T) CONTOUR ABNORMALITY CONSIDER ANTEROSEPTAL MYOCARDIAL DAMAGE PROLONGED QT ABNORMAL ECG RI6.01 No previous ECG available for comparison
[2020-01-15] MEDS: PIPERACILLIN/TAZOBACTAM 4.5 GM in IV NORMAL SALINE 100ML 100 ML IV SCH (15:51)
[2020-01-15] MEDS: IV NORMAL SALINE 1000ML BAG 1,000 ML IV SCH (15:53)
--- NOTE | 2020-01-15 15:59 | PDOC ---
JAMMIE LORENZO [employer] HELPER 01/15/20 1559: CARDIO Progress Notes Date and Time Date of Service 01/15/20 Time of Evaluation 1305 Subjective Subjective: Other (intubated/sedated ) Vitals Vitals Vital Signs Date Time Temp Pulse Resp B/P (MAP) Pulse Ox O2 Delivery O2 Flow Rate FiO2 01/15/20 15:24 100 Ventilator 01/15/20 15:00 86 20 106/58 (74) 01/15/20 12:00 98.6 98.6 01/15/20 00:39 15.0 Weight Weight [ ] Input and Output Intake and Output Intake and Output 01/15/20 06:59 Intake Total 3619.5 ml Output Total 815 ml Balance 2804.5 ml Intake IV Total 3619.5 ml Output Urine Total 815 ml Laboratory Labs Laboratory Tests Test 01/14/20 16:45 01/14/20 16:48 01/14/20 17:21 01/14/20 18:35 Sodium Level 138 mmol/L (136-145) Potassium Level 5.0 mmol/L (3.5-5.1) Chloride Level 106 mmol/L (98-107) Carbon Dioxide Level 22 mmol/L (21-32) Anion Gap 10 (6-14) Blood Urea Nitrogen 28 mg/dL (8-26) Creatinine 1.8 mg/dL (0.7-1.3) Estimated GFR (Cockcroft-Gault) 37.9 Glucose Level 77 mg/dL (70-99) Calcium Level 8.7 mg/dL (8.5-10.1) Glucose (Fingerstick) 69 mg/dL (70-99) 98 mg/dL (70-99) 91 mg/dL (70-99) Test 01/14/20 19:49 01/14/20 20:57 01/14/20 21:11 01/14/20 22:23 Glucose (Fingerstick) 72 mg/dL (70-99) 49 mg/dL (70-99) 122 mg/dL (70-99) 73 mg/dL (70-99) Test 01/14/20 23:45 01/15/20 00:32 01/15/20 00:45 01/15/20 02:02 Glucose (Fingerstick) 72 mg/dL (70-99) 63 mg/dL (70-99) 109 mg/dL (70-99) 74 mg/dL (70-99) Test 01/15/20 03:56 01/15/20 04:32 01/15/20 05:45 01/15/20 05:50 Glucose (Fingerstick) 60 mg/dL (70-99) 80 mg/dL (70-99) 81 mg/dL (70-99) Sodium Level 139 mmol/L (136-145) Potassium Level 4.4 mmol/L (3.5-5.1) Chloride Level 107 mmol/L (98-107) Carbon Dioxide Level 24 mmol/L (21-32) Anion Gap 8 (6-14) Blood Urea Nitrogen 24 mg/dL (8-26) Creatinine 1.8 mg/dL (0.7-1.3) Estimated GFR (Cockcroft-Gault) 37.9 Glucose Level 80 mg/dL (70-99) Calcium Level 8.2 mg/dL (8.5-10.1) Magnesium Level 1.8 mg/dL (1.8-2.4) Vitamin B12 Level 961 pg/mL (247-911) Thyroid Stimulating Hormone (TSH) 0.160 uIU/mL (0.358-3.74) Test 01/15/20 07:55 01/15/20 08:15 01/15/20 08:17 01/15/20 10:01 O2 Saturation 97 % (92-99) Arterial Blood pH 7.35 (7.35-7.45) Arterial Blood pCO2 at Patient Temp 32 mmHg (35-46) Arterial Blood pO2 at Patient Temp 95 mmHg (65-108) Arterial Blood HCO3 17 mmol/L (21-28) Arterial Blood Base Excess -7 mmol/L (-3-3) FiO2 40% White Blood Count 17.0 x10^3/uL (4.0-11.0) Red Blood Count 3.36 x10^6/uL (4.30-5.70) Hemoglobin 10.4 g/dL (13.0-17.5) Hematocrit 30.7 % (39.0-53.0) Mean Corpuscular Volume 91 fL (79-100) Mean Corpuscular Hemoglobin 31 pg (25-35) Mean Corpuscular Hemoglobin Concent 34 g/dL (31-37) Red Cell Distribution Width 15.3 % (11.5-14.5) Platelet Count 190 x10^3/uL (140-400) Neutrophils (%) (Auto) 70 % (31-73) Lymphocytes (%) (Auto) 19 % (24-48) Monocytes (%) (Auto) 11 % (0-9) Eosinophils (%) (Auto) 0 % (0-3) Basophils (%) (Auto) 0 % (0-3) Neutrophils # (Auto) 11.8 x10^3/uL (1.8-7.7) Lymphocytes # (Auto) 3.2 x10^3/uL (1.0-4.8) Monocytes # (Auto) 1.9 x10^3/uL (0.0-1.1) Eosinophils # (Auto) 0.0 x10^3/uL (0.0-0.7) Basophils # (Auto) 0.0 x10^3/uL (0.0-0.2) Segmented Neutrophils % 64 % (35-66) Band Neutrophils % 4 % (0-9) Lymphocytes % 22 % (24-48) Atypical Lymphocytes % (Manual) 1 % (0-0) Monocytes % 8 % (0-10) Eosinophils % 1 % (0-5) Platelet Estimate Adequate (ADEQUATE) Polychromasia Slight Glucose (Fingerstick) 81 mg/dL (70-99) 73 mg/dL (70-99) Test 01/15/20 11:39 01/15/20 13:46 01/15/20 15:38 Glucose (Fingerstick) 70 mg/dL (70-99) 88 mg/dL (70-99) 124 mg/dL (70-99) Microbiology Micro Microbiology 01/14/20 Blood Culture - Preliminary, Resulted NO GROWTH AFTER 1 DAY Physical Exam HEENT: Neck Supple W Full Motion LUNGS: Other (mechanical vent ) Heart: RRR Abdomen: Other (obese) Extremities: Other (BKA) Neurology: other (sedated) Assessment Assessment 1. Acute respiratory failure s/p intubation. COVID pending 2. Leukocytosis, lactic acidosis 3. Septic shock; pressor support. S/p fluid bolus. 4. BRYCE on CKD 5. Mild troponin elevation; peal 0.135. Most probably type II, demand ischemia secondary to above. 6. Diabetes, II; initially hyperglycemic and then hypoglycemic 7. Metabolic encephalopathy 8. COPD, DAVID, morbid obesity 9. H/o CVA Recommendations Given additional 500cc IVFs Pressor support Ongoing antibiotic therapy Lipid panel ASA Echo to assess LV systolic function if COVID negative. Supportive care Justicifation of Admission Dx: Justifications for Admission: Justification of Admission Dx: Yes Aspiration Pneumonia: Hemodynamic Instability Sepsis: Altered Mental Status Altered Mental Status: Altered Mental Status KENDALL SOLIS MD 01/15/20 2315: CARDIO Progress Notes Plan Plan Pt. seen and examined. Agree with above [place] note Supportive care from CV standpoint JAMMIE LORENZO APRN Jan 15, 2020 15:59 KENDALL SOLIS MD Jan 15, 2020 23:15
[2020-01-15 16:30] LABS: CHOLESTEROL/HDL RATIO 3.3
--- NOTE | 2020-01-15 16:41 | PN ---
PROGRESS NOTES Date of Service DATE: 01/15/20 TIME: 16:40 Subjective Subjective Patient was seen for initial psychiatric assessment upon consult request however patient is intubated and not able to communicate due to excessive sedation and ETT tube in place. Objective Objective Vital Signs Date Time Temp Pulse Resp B/P (MAP) Pulse Ox O2 Delivery O2 Flow Rate FiO2 01/15/20 16:00 97.8 90 20 149/60 (89) 100 Ventilator 97.8 01/15/20 00:39 15.0 Intake and Output 01/15/20 07:00 Intake Total 3619.5 ml Output Total 790 ml Balance 2829.5 ml Intake IV Total 3619.5 ml Output Urine Total 790 ml Diagnosis PROBLEM LIST Problems Medical Problems: (1) Acute renal insufficiency Status: Acute (2) Altered mental status Status: Acute (3) Aspiration pneumonia Status: Acute (4) Hyperglycemia Status: Acute (5) Hypomagnesemia Status: Acute (6) Septic shock Status: Acute Assessment Assessment Problems Medical Problems: (1) Acute renal insufficiency Status: Acute (2) Altered mental status Status: Acute (3) Aspiration pneumonia Status: Acute (4) Hyperglycemia Status: Acute (5) Hypomagnesemia Status: Acute (6) Septic shock Status: Acute Comment Review of Relevant I have reviewed the following items lauryn (where applicable) has been applied. Labs Laboratory Tests Test 01/13/20 18:07 01/13/20 18:20 01/13/20 18:37 01/13/20 19:08 Glucose (Fingerstick) 339 mg/dL (70-99) White Blood Count 9.1 x10^3/uL (4.0-11.0) Red Blood Count 3.51 x10^6/uL (4.30-5.70) Hemoglobin 11.1 g/dL (13.0-17.5) Hematocrit 31.2 % (39.0-53.0) Mean Corpuscular Volume 89 fL (79-100) Mean Corpuscular Hemoglobin 32 pg (25-35) Mean Corpuscular Hemoglobin Concent 36 g/dL (31-37) Red Cell Distribution Width 14.9 % (11.5-14.5) Platelet Count 144 x10^3/uL (140-400) Neutrophils (%) (Auto) 59 % (31-73) Lymphocytes (%) (Auto) 34 % (24-48) Monocytes (%) (Auto) 5 % (0-9) Eosinophils (%) (Auto) 2 % (0-3) Basophils (%) (Auto) 0 % (0-3) Neutrophils # (Auto) 5.4 x10^3/uL (1.8-7.7) Lymphocytes # (Auto) 3.1 x10^3/uL (1.0-4.8) Monocytes # (Auto) 0.4 x10^3/uL (0.0-1.1) Eosinophils # (Auto) 0.2 x10^3/uL (0.0-0.7) Basophils # (Auto) 0.0 x10^3/uL (0.0-0.2) Prothrombin Time 14.3 SEC (11.7-14.0) Prothromb Time International Ratio 1.2 (0.8-1.1) Activated Partial Thromboplast Time 25 SEC (24-38) Sodium Level 138 mmol/L (136-145) Potassium Level 2.6 mmol/L (3.5-5.1) Chloride Level 101 mmol/L (98-107) Carbon Dioxide Level 21 mmol/L (21-32) Anion Gap 16 (6-14) Blood Urea Nitrogen 34 mg/dL (8-26) Creatinine 1.8 mg/dL (0.7-1.3) Estimated GFR (Cockcroft-Gault) 37.9 BUN/Creatinine Ratio 19 (6-20) Glucose Level 311 mg/dL (70-99) Lactic Acid Level 6.1 mmol/L (0.4-2.0) Calcium Level 9.4 mg/dL (8.5-10.1) Magnesium Level 1.7 mg/dL (1.8-2.4) Total Bilirubin 0.4 mg/dL (0.2-1.0) Aspartate Amino Transf (AST/SGOT) 11 U/L (15-37) Alanine Aminotransferase (ALT/SGPT) 25 U/L (16-63) Alkaline Phosphatase 87 U/L (46-116) Ammonia 15 mcmol/L (11-34) Creatine Kinase 42 U/L (39-308) Creatine Kinase MB (Mass) 1.8 ng/mL (0.0-3.6) Creatine Kinase MB Relative Index % (0-4) Troponin I Quantitative < 0.017 ng/mL (0.000-0.055) WZ-Psu-[id number]-Type Natriuretic Peptide 179 pg/mL (0-124) Total Protein 6.7 g/dL (6.4-8.2) Albumin 3.3 g/dL (3.4-5.0) Albumin/Globulin Ratio 1.0 (1.0-1.7) Lipase 344 U/L (73-393) Ethyl Alcohol Level < 10 mg/dL (0-10) Acetone Level Neg (NEG) O2 Saturation 98 % (92-99) Arterial Blood pH 7.29 (7.35-7.45) Arterial Blood pCO2 at Patient Temp 39 mmHg (35-46) Arterial Blood pO2 at Patient Temp 184 mmHg (65-108) Arterial Blood HCO3 18 mmol/L (21-28) Arterial Blood Base Excess -8 mmol/L (-3-3) Oxyhemoglobin 97.4 % Methemoglobin 0.6 % (0.0-1.9) Carbon Monoxide, Quantitative 0.1 % (0.0-1.9) FiO2 100 Urine Collection Type Unknown Urine Color Yellow Urine Clarity Clear Urine pH 5.0 (<5.0-8.0) Urine Specific [place] >=1.030 (1.000-1.030) Urine Protein Negative mg/dL (NEG-TRACE) Urine Glucose (UA) >=1000 mg/dL (NEG) Urine Ketones (Stick) Trace mg/dL (NEG) Urine Blood Negative (NEG) Urine Nitrite Negative (NEG) Urine Bilirubin Negative (NEG) Urine Urobilinogen Dipstick 0.2 mg/dL (0.2 mg/dL) Urine Leukocyte Esterase Negative (NEG) Urine RBC 0 /HPF (0-2) Urine WBC 0 /HPF (0-4) Urine Bacteria 0 /HPF (0-FEW) Urine Opiates Screen Neg (NEG) Urine Methadone Screen Neg (NEG) Urine Barbiturates Neg (NEG) Urine Phencyclidine Screen Neg (NEG) Urine Amphetamine/Methamphetamine Neg (NEG) Urine Benzodiazepines Screen Neg (NEG) Urine Cocaine Screen Neg (NEG) Urine Cannabinoids Screen Neg (NEG) Urine Ethyl Alcohol Neg (NEG) Test 01/13/20 20:59 01/13/20 23:01 01/13/20 23:24 01/13/20 23:37 Glucose (Fingerstick) 138 mg/dL (70-99) 56 mg/dL (70-99) 46 mg/dL (70-99) 114 mg/dL (70-99) Test 01/14/20 00:08 01/14/20 00:20 01/14/20 01:20 01/14/20 01:24 Glucose (Fingerstick) 105 mg/dL (70-99) 65 mg/dL (70-99) Lactic Acid Level < 0.3 mmol/L (0.4-2.0) Troponin I Quantitative 0.135 ng/mL (0.000-0.055) Sodium Level 140 mmol/L (136-145) Potassium Level 3.2 mmol/L (3.5-5.1) Chloride Level 107 mmol/L (98-107) Carbon Dioxide Level 21 mmol/L (21-32) Anion Gap 12 (6-14) Blood Urea Nitrogen 31 mg/dL (8-26) Creatinine 1.4 mg/dL (0.7-1.3) Estimated GFR (Cockcroft-Gault) 50.7 Glucose Level 65 mg/dL (70-99) Calcium Level 8.0 mg/dL (8.5-10.1) Test 01/14/20 01:38 01/14/20 03:07 01/14/20 03:16 01/14/20 04:22 Glucose (Fingerstick) 95 mg/dL (70-99) 67 mg/dL (70-99) 118 mg/dL (70-99) 72 mg/dL (70-99) Test 01/14/20 05:00 01/14/20 05:04 01/14/20 06:47 01/14/20 07:46 White Blood Count 15.9 x10^3/uL (4.0-11.0) Red Blood Count 3.12 x10^6/uL (4.30-5.70) Hemoglobin 9.7 g/dL (13.0-17.5) Hematocrit 28.1 % (39.0-53.0) Mean Corpuscular Volume 90 fL (79-100) Mean Corpuscular Hemoglobin 31 pg (25-35) Mean Corpuscular Hemoglobin Concent 35 g/dL (31-37) Red Cell Distribution Width 14.8 % (11.5-14.5) Platelet Count 175 x10^3/uL (140-400) Sodium Level 139 mmol/L (136-145) Potassium Level 3.1 mmol/L (3.5-5.1) Chloride Level 106 mmol/L (98-107) Carbon Dioxide Level 23 mmol/L (21-32) Anion Gap 10 (6-14) Blood Urea Nitrogen 31 mg/dL (8-26) Creatinine 1.5 mg/dL (0.7-1.3) Estimated GFR (Cockcroft-Gault) 46.8 Glucose Level 76 mg/dL (70-99) C-Peptide 0.6 ng/mL (1.1-4.4) Calcium Level 8.2 mg/dL (8.5-10.1) Magnesium Level 2.0 mg/dL (1.8-2.4) Troponin I Quantitative 0.072 ng/mL (0.000-0.055) Glucose (Fingerstick) 74 mg/dL (70-99) 56 mg/dL (70-99) 81 mg/dL (70-99) Test 01/14/20 08:00 01/14/20 08:56 01/14/20 09:52 01/14/20 10:00 O2 Saturation 97 % (92-99) Arterial Blood pH 7.35 (7.35-7.45) Arterial Blood pCO2 at Patient Temp 36 mmHg (35-46) Arterial Blood pO2 at Patient Temp 108 mmHg (65-108) Arterial Blood HCO3 19 mmol/L (21-28) Arterial Blood Base Excess -6 mmol/L (-3-3) FiO2 40% vent Glucose (Fingerstick) 77 mg/dL (70-99) 91 mg/dL (70-99) Sodium Level 139 mmol/L (136-145) Potassium Level 3.4 mmol/L (3.5-5.1) Chloride Level 105 mmol/L (98-107) Carbon Dioxide Level 23 mmol/L (21-32) Anion Gap 11 (6-14) Blood Urea Nitrogen 30 mg/dL (8-26) Creatinine 1.7 mg/dL (0.7-1.3) Estimated GFR (Cockcroft-Gault) 40.5 Glucose Level 93 mg/dL (70-99) Calcium Level 8.4 mg/dL (8.5-10.1) Procalcitonin < 0.10 ng/mL (0.00-0.10) Test 01/14/20 10:36 01/14/20 11:20 01/14/20 12:40 01/14/20 12:43 Glucose (Fingerstick) 83 mg/dL (70-99) 112 mg/dL (70-99) 173 mg/dL (70-99) Coronavirus (PCR) Not detected (Not Detected) Test 01/14/20 14:23 01/14/20 16:45 01/14/20 16:48 01/14/20 17:21 Glucose (Fingerstick) 139 mg/dL (70-99) 69 mg/dL (70-99) 98 mg/dL (70-99) Sodium Level 138 mmol/L (136-145) Potassium Level 5.0 mmol/L (3.5-5.1) Chloride Level 106 mmol/L (98-107) Carbon Dioxide Level 22 mmol/L (21-32) Anion Gap 10 (6-14) Blood Urea Nitrogen 28 mg/dL (8-26) Creatinine 1.8 mg/dL (0.7-1.3) Estimated GFR (Cockcroft-Gault) 37.9 Glucose Level 77 mg/dL (70-99) Calcium Level 8.7 mg/dL (8.5-10.1) Test 01/14/20 18:35 01/14/20 19:49 01/14/20 20:57 01/14/20 21:11 Glucose (Fingerstick) 91 mg/dL (70-99) 72 mg/dL (70-99) 49 mg/dL (70-99) 122 mg/dL (70-99) Test 01/14/20 22:23 01/14/20 23:45 01/15/20 00:32 01/15/20 00:45 Glucose (Fingerstick) 73 mg/dL (70-99) 72 mg/dL (70-99) 63 mg/dL (70-99) 109 mg/dL (70-99) Test 01/15/20 02:02 01/15/20 03:56 01/15/20 04:32 01/15/20 05:45 Glucose (Fingerstick) 74 mg/dL (70-99) 60 mg/dL (70-99) 80 mg/dL (70-99) 81 mg/dL (70-99) Test 01/15/20 05:50 01/15/20 07:55 01/15/20 08:15 01/15/20 08:17 Sodium Level 139 mmol/L (136-145) Potassium Level 4.4 mmol/L (3.5-5.1) Chloride Level 107 mmol/L (98-107) Carbon Dioxide Level 24 mmol/L (21-32) Anion Gap 8 (6-14) Blood Urea Nitrogen 24 mg/dL (8-26) Creatinine 1.8 mg/dL (0.7-1.3) Estimated GFR (Cockcroft-Gault) 37.9 Glucose Level 80 mg/dL (70-99) Calcium Level 8.2 mg/dL (8.5-10.1) Magnesium Level 1.8 mg/dL (1.8-2.4) Triglycerides Level 154 mg/dL (0-150) Cholesterol Level 117 mg/dL (0-200) LDL Cholesterol, Calculated 51 mg/dL (0-100) VLDL Cholesterol, Calculated 31 mg/dL (0-40) Non-HDL Cholesterol Calculated 82 mg/dL (0-129) HDL Cholesterol 35 mg/dL (40-60) Cholesterol/HDL Ratio 3.3 Vitamin B12 Level 961 pg/mL (247-911) Thyroid Stimulating Hormone (TSH) 0.160 uIU/mL (0.358-3.74) O2 Saturation 97 % (92-99) Arterial Blood pH 7.35 (7.35-7.45) Arterial Blood pCO2 at Patient Temp 32 mmHg (35-46) Arterial Blood pO2 at Patient Temp 95 mmHg (65-108) Arterial Blood HCO3 17 mmol/L (21-28) Arterial Blood Base Excess -7 mmol/L (-3-3) FiO2 40% White Blood Count 17.0 x10^3/uL (4.0-11.0) Red Blood Count 3.36 x10^6/uL (4.30-5.70) Hemoglobin 10.4 g/dL (13.0-17.5) Hematocrit 30.7 % (39.0-53.0) Mean Corpuscular Volume 91 fL (79-100) Mean Corpuscular Hemoglobin 31 pg (25-35) Mean Corpuscular Hemoglobin Concent 34 g/dL (31-37) Red Cell Distribution Width 15.3 % (11.5-14.5) Platelet Count 190 x10^3/uL (140-400) Neutrophils (%) (Auto) 70 % (31-73) Lymphocytes (%) (Auto) 19 % (24-48) Monocytes (%) (Auto) 11 % (0-9) Eosinophils (%) (Auto) 0 % (0-3) Basophils (%) (Auto) 0 % (0-3) Neutrophils # (Auto) 11.8 x10^3/uL (1.8-7.7) Lymphocytes # (Auto) 3.2 x10^3/uL (1.0-4.8) Monocytes # (Auto) 1.9 x10^3/uL (0.0-1.1) Eosinophils # (Auto) 0.0 x10^3/uL (0.0-0.7) Basophils # (Auto) 0.0 x10^3/uL (0.0-0.2) Segmented Neutrophils % 64 % (35-66) Band Neutrophils % 4 % (0-9) Lymphocytes % 22 % (24-48) Atypical Lymphocytes % (Manual) 1 % (0-0) Monocytes % 8 % (0-10) Eosinophils % 1 % (0-5) Platelet Estimate Adequate (ADEQUATE) Polychromasia Slight Glucose (Fingerstick) 81 mg/dL (70-99) Test 01/15/20 10:01 01/15/20 11:39 01/15/20 13:46 01/15/20 15:38 Glucose (Fingerstick) 73 mg/dL (70-99) 70 mg/dL (70-99) 88 mg/dL (70-99) 124 mg/dL (70-99) Laboratory Tests Test 01/14/20 16:45 01/14/20 16:48 01/14/20 17:21 01/14/20 18:35 Sodium Level 138 mmol/L (136-145) Potassium Level 5.0 mmol/L (3.5-5.1) Chloride Level 106 mmol/L (98-107) Carbon Dioxide Level 22 mmol/L (21-32) Anion Gap 10 (6-14) Blood Urea Nitrogen 28 mg/dL (8-26) Creatinine 1.8 mg/dL (0.7-1.3) Estimated GFR (Cockcroft-Gault) 37.9 Glucose Level 77 mg/dL (70-99) Calcium Level 8.7 mg/dL (8.5-10.1) Glucose (Fingerstick) 69 mg/dL (70-99) 98 mg/dL (70-99) 91 mg/dL (70-99) Test 01/14/20 19:49 01/14/20 20:57 01/14/20 21:11 01/14/20 22:23 Glucose (Fingerstick) 72 mg/dL (70-99) 49 mg/dL (70-99) 122 mg/dL (70-99) 73 mg/dL (70-99) Test 01/14/20 23:45 01/15/20 00:32 01/15/20 00:45 01/15/20 02:02 Glucose (Fingerstick) 72 mg/dL (70-99) 63 mg/dL (70-99) 109 mg/dL (70-99) 74 mg/dL (70-99) Test 01/15/20 03:56 01/15/20 04:32 01/15/20 05:45 01/15/20 05:50 Glucose (Fingerstick) 60 mg/dL (70-99) 80 mg/dL (70-99) 81 mg/dL (70-99) Sodium Level 139 mmol/L (136-145) Potassium Level 4.4 mmol/L (3.5-5.1) Chloride Level 107 mmol/L (98-107) Carbon Dioxide Level 24 mmol/L (21-32) Anion Gap 8 (6-14) Blood Urea Nitrogen 24 mg/dL (8-26) Creatinine 1.8 mg/dL (0.7-1.3) Estimated GFR (Cockcroft-Gault) 37.9 Glucose Level 80 mg/dL (70-99) Calcium Level 8.2 mg/dL (8.5-10.1) Magnesium Level 1.8 mg/dL (1.8-2.4) Triglycerides Level 154 mg/dL (0-150) Cholesterol Level 117 mg/dL (0-200) LDL Cholesterol, Calculated 51 mg/dL (0-100) VLDL Cholesterol, Calculated 31 mg/dL (0-40) Non-HDL Cholesterol Calculated 82 mg/dL (0-129) HDL Cholesterol 35 mg/dL (40-60) Cholesterol/HDL Ratio 3.3 Vitamin B12 Level 961 pg/mL (247-911) Thyroid Stimulating Hormone (TSH) 0.160 uIU/mL (0.358-3.74) Test 01/15/20 07:55 01/15/20 08:15 01/15/20 08:17 01/15/20 10:01 O2 Saturation 97 % (92-99) Arterial Blood pH 7.35 (7.35-7.45) Arterial Blood pCO2 at Patient Temp 32 mmHg (35-46) Arterial Blood pO2 at Patient Temp 95 mmHg (65-108) Arterial Blood HCO3 17 mmol/L (21-28) Arterial Blood Base Excess -7 mmol/L (-3-3) FiO2 40% White Blood Count 17.0 x10^3/uL (4.0-11.0) Red Blood Count 3.36 x10^6/uL (4.30-5.70) Hemoglobin 10.4 g/dL (13.0-17.5) Hematocrit 30.7 % (39.0-53.0) Mean Corpuscular Volume 91 fL (79-100) Mean Corpuscular Hemoglobin 31 pg (25-35) Mean Corpuscular Hemoglobin Concent 34 g/dL (31-37) Red Cell Distribution Width 15.3 % (11.5-14.5) Platelet Count 190 x10^3/uL (140-400) Neutrophils (%) (Auto) 70 % (31-73) Lymphocytes (%) (Auto) 19 % (24-48) Monocytes (%) (Auto) 11 % (0-9) Eosinophils (%) (Auto) 0 % (0-3) Basophils (%) (Auto) 0 % (0-3) Neutrophils # (Auto) 11.8 x10^3/uL (1.8-7.7) Lymphocytes # (Auto) 3.2 x10^3/uL (1.0-4.8) Monocytes # (Auto) 1.9 x10^3/uL (0.0-1.1) Eosinophils # (Auto) 0.0 x10^3/uL (0.0-0.7) Basophils # (Auto) 0.0 x10^3/uL (0.0-0.2) Segmented Neutrophils % 64 % (35-66) Band Neutrophils % 4 % (0-9) Lymphocytes % 22 % (24-48) Atypical Lymphocytes % (Manual) 1 % (0-0) Monocytes % 8 % (0-10) Eosinophils % 1 % (0-5) Platelet Estimate Adequate (ADEQUATE) Polychromasia Slight Glucose (Fingerstick) 81 mg/dL (70-99) 73 mg/dL (70-99) Test 01/15/20 11:39 01/15/20 13:46 01/15/20 15:38 Glucose (Fingerstick) 70 mg/dL (70-99) 88 mg/dL (70-99) 124 mg/dL (70-99) Microbiology 01/14/20 Blood Culture - Preliminary, Resulted NO GROWTH AFTER 1 DAY Medications Current Medications Sodium Chloride 1,000 ml @ 1,000 mls/hr 1X ONCE IV Last administered on 01/13/20at 18:20; Admin Dose 1,000 MLS/HR; Start 01/13/20 at 18:45; Stop 01/13/20 at 19:44; Status DC Sodium Chloride 1,000 ml @ 1,000 mls/hr 1X ONCE IV Last administered on 01/13/20at 18:35; Admin Dose 1,000 MLS/HR; Start 01/13/20 at 18:45; Stop 01/13/20 at 19:44; Status DC Fentanyl Citrate (Fentanyl 2ml Vial) 50 mcg PRN Q1HR PRN IV SEE COMMENTS; Start 01/13/20 at 18:45 Chlorhexidine Gluconate (Peridex) 15 ml BID MM Last administered on 01/14/20at 20:50; Admin Dose 15 ML; Start 01/13/20 at 21:00 Midazolam HCl (Versed) 5 mg PRN Q1HR PRN IV AGITATION Last administered on 01/13/20at 19:53; Admin Dose 5 MG; Start 01/13/20 at 18:45 Etomidate (Amidate) 20 mg STK-MED ONCE IV ; Start 01/13/20 at 18:58; Stop 01/13/20 at 18:59; Status DC Rocuronium [place] (Zemuron) 50 mg STK-MED ONCE .ROUTE ; Start 01/13/20 at 18:59; Stop 01/13/20 at 18:59; Status DC Rocuronium [place] (Zemuron) 50 mg 1X ONCE IV Last administered on 01/13/20at 19:52; Admin Dose 50 MG; Start 01/13/20 at 19:00; Stop 01/13/20 at 19:25; Status DC Etomidate (Amidate) 20 mg 1X ONCE IV Last administered on 01/13/20at 19:52; Admin Dose 20 MG; Start 01/13/20 at 19:00; Stop 01/13/20 at 19:25; Status DC Potassium Chloride/Water 100 ml @ 100 mls/hr Q1H IV Last administered on 01/14/20at 00:34; Admin Dose 100 MLS/HR; Start 01/13/20 at 19:15; Stop 01/13/20 at 23:14; Status DC Norepinephrine Bitartrate 8 mg/ Dextrose 258 ml @ 24.633 mls/ hr 1X ONCE IV Last administered on 01/13/20at 19:45; Admin Dose 22.5 MLS/HR; Start 01/13/20 at 19:45; Stop 01/14/20 at 06:13; Status DC Piperacillin Sod/ Tazobactam Sod 4.5 gm/Sodium Chloride 100 ml @ 200 mls/hr 1X ONCE IV Last administered on 01/13/20at 19:45; Admin Dose 200 MLS/HR; Start 01/13/20 at 19:45; Stop 01/13/20 at 20:14; Status DC Sodium Chloride 1,000 ml @ 1,000 mls/hr 1X ONCE IV Last administered on 01/13/20at 19:45; Admin Dose 1,000 MLS/HR; Start 01/13/20 at 19:45; Stop 01/13/20 at 20:44; Status DC Levofloxacin/ Dextrose 150 ml @ 100 mls/hr 1X ONCE IV Last administered on 01/13/20at 21:05; Admin Dose 100 MLS/HR; Start 01/13/20 at 21:00; Stop 01/13/20 at 22:29; Status DC Vancomycin HCl (Vanco Per Pharmacy) 1 each PRN DAILY PRN MC SEE COMMENTS Last administered on 01/15/20at 09:02; Admin Dose 1 EACH; Start 01/13/20 at 19:45 Magnesium Sulfate 50 ml @ 25 mls/hr 1X ONCE IV Last administered on 01/14/20at 01:11; Admin Dose 25 MLS/HR; Start 01/13/20 at 19:45; Stop 01/13/20 at 21:44; Status DC Insulin Human Regular (HumuLIN R VIAL) 12 unit 1X ONCE SQ Last administered on 01/13/20at 19:45; Admin Dose 12 UNIT; Start 01/13/20 at 19:45; Stop 01/13/20 at 19:46; Status DC Ondansetron HCl (Zofran) 4 mg PRN Q8HRS PRN IV NAUSEA/VOMITING; Start 01/13/20 at 20:45; Stop 01/14/20 at 20:44; Status DC Insulin Human Lispro (HumaLOG) 0-5 UNITS TIDWMEALS SQ ; Start 01/14/20 at 08:00 Dextrose (Dextrose 50%-Water Syringe) 12.5 gm PRN Q15MIN PRN IV SEE COMMENTS Last administered on 01/15/20at 00:41; Admin Dose 12.5 GM; Start 01/13/20 at 20:45 Sodium Chloride 1,000 ml @ 100 mls/hr 1X ONCE IV Last administered on 01/13/20at 21:10; Admin Dose 100 MLS/HR; Start 01/13/20 at 20:45; Stop 01/14/20 at 06:44; Status DC Vancomycin HCl 2 gm/Sodium Chloride 500 ml @ 250 mls/hr 1X ONCE IV Last administered on 01/13/20at 22:59; Admin Dose 250 MLS/HR; Start 01/13/20 at 21:00; Stop 01/13/20 at 22:59; Status DC Midazolam HCl 100 ml @ 0 mls/hr CONT PRN IV SEE PROTOCOL Last administered on 01/15/20at 14:38; Admin Dose 5 MLS/HR; Start 01/13/20 at 22:15 Vancomycin HCl 2 gm/Sodium Chloride 500 ml @ 250 mls/hr Q24H IV Last administered on 01/14/20at 23:42; Admin Dose 250 MLS/HR; Start 01/14/20 at 23:00 Vancomycin HCl (Vancomycin Trough Level) 1 each 1X ONCE MC ; Start 01/15/20 at 22:30; Stop 01/15/20 at 22:31 Enoxaparin Sodium (Lovenox Per Pharmacy Prophylaxis Dosing) 1 each PRN DAILY PRN MC SEE COMMENTS; Start 01/14/20 at 02:00 Potassium Chloride 20 meq/ Dextrose/Sodium Chloride 1,010 ml @ 85 mls/hr [id number] IV ; Start 01/14/20 at 02:00; Status UNV Potassium Chloride/Dextrose/ Sod Cl 1,000 ml @ 85 mls/hr [id number] IV Last administered on 01/14/20at 14:19; Admin Dose 85 MLS/HR; Start 01/14/20 at 02:15; Stop 01/14/20 at 21:20; Status DC Enoxaparin Sodium (Lovenox 40mg Syringe) 40 mg QHS SQ Last administered on 01/14/20at 20:50; Admin Dose 40 MG; Start 01/14/20 at 02:15 Norepinephrine Bitartrate 8 mg/ Dextrose 258 ml @ 22.678 mls/ hr CONT PRN IV PER PROTOCOL Last administered on 01/14/20at 02:42; Admin Dose 32.9 MLS/HR; Start 01/14/20 at 02:45; Stop 01/14/20 at 09:00; Status DC Norepinephrine Bitartrate 32 mg/ Dextrose 250 ml @ 5.484 mls/ hr CONT PRN IV SEE I/O RECORD Last administered on 01/15/20at 04:06; Admin Dose 21.938 MLS/HR; Start 01/14/20 at 07:45 Glucagon (Glucagen) 1 mg PRN Q15MIN PRN IV LOW BLOOD SUGAR Last administered on 01/15/20at 04:12; Admin Dose 1 MG; Start 01/14/20 at 09:30 Vasopressin 20 unit/Dextrose 101 ml @ 12 mls/hr CONT PRN IV SEE I/O RECORD; Start 01/14/20 at 09:45 Potassium Chloride/Water 100 ml @ 100 mls/hr Q1H IV Last administered on 01/14/20at 14:19; Admin Dose 100 MLS/HR; Start 01/14/20 at 11:00; Stop 01/14/20 at 14:59; Status DC Vancomycin HCl 1.75 gm/Sodium Chloride 500 ml @ 250 mls/hr Q18H IV ; Start 01/14/20 at 17:00; Status Cancel Pantoprazole Sodium (PROTONIX VIAL for IV PUSH) 40 mg DAILYAC IVP Last administered on 01/15/20at 07:30; Admin Dose 40 MG; Start 01/14/20 at 13:00 Fentanyl Citrate 30 ml @ 0 mls/hr CONT PRN IV SEE I/O RECORD; Start 01/14/20 at 16:00; Status Cancel Naloxone HCl (Narcan) 0.4 mg PRN Q2MIN PRN IV SEE INSTRUCTIONS; Start 01/14/20 at 16:00 Sodium Chloride 1,000 ml @ 25 mls/hr Q24H IV ; Start 01/14/20 at 15:52 Fentanyl Citrate 30 ml @ 0 mls/hr CONT PRN IV SEE PROTOCOL Last administered on 01/15/20at 09:50; Admin Dose 2.5 MLS/HR; Start 01/14/20 at 16:00 Dextrose 1,000 ml @ 75 mls/hr [id number] IV Last administered on 01/15/20at 11:15; Admin Dose 75 MLS/HR; Start 01/14/20 at 21:30; Stop 01/15/20 at 15:50; Status DC Sodium Chloride 1,000 ml @ 1,000 mls/hr 1X ONCE IV Last administered on 01/15/20at 09:48; Admin Dose 1,000 MLS/HR; Start 01/15/20 at 09:45; Stop 01/15/20 at 10:44; Status DC Sodium Chloride 500 ml @ 500 mls/hr 1X ONCE IV Last administered on 01/15/20at 12:30; Admin Dose 500 MLS/HR; Start 01/15/20 at 12:30; Stop 01/15/20 at 13:29; Status DC Piperacillin Sod/ Tazobactam Sod 4.5 gm/Sodium Chloride 100 ml @ 200 mls/hr Q6HRS IV Last administered on 01/15/20at 15:51; Admin Dose 200 MLS/HR; Start 01/15/20 at 16:00 Aspirin (Ecotrin) 81 mg DAILYWBKFT PO ; Start 01/16/20 at 08:00 Active Scripts Active Aspirin 325 Mg Tablet 325 Mg PO DAILYWBKFT 30 Days Atorvastatin Calcium 20 Mg Tablet 20 Mg PO QHS 30 Days Reported Trazodone Hcl 50 Mg Tablet 1 Tab PO QHS Celexa (Citalopram Hydrobromide) 10 Mg Tablet 1 Tab PO DAILY Lantus Solostar (Insulin Glargine,Hum.rec.anlog) 100 Unit/1 Ml Insuln.pen 65 Unit SQ QHS Gabapentin (Gabapentin) 300 Mg Capsule 300 Mg PO TID Nexium Capsule (Esomeprazole Magnesium) 20 Mg Capsule.dr 1 Cap PO DAILY Actos (Pioglitazone Hcl) 30 Mg Tablet 30 Mg PO DAILY Metformin Hcl 500 Mg Tablet 500 Mg PO BIDWMEALS Vitals/I & O Vital Sign - Last 24 Hours 01/14/20 01/14/20 01/14/20 01/14/20 17:00 17:22 18:00 19:00 Pulse 121 120 120 Resp 20 20 B/P (MAP) 116/57 (76) 103/54 (70) 102/54 (70) Pulse Ox 100 100 100 100 O2 Delivery Ventilator Ventilator Ventilator Ventilator 01/14/20 01/14/20 01/14/20 01/14/20 20:00 20:00 20:29 21:00 Temp 99.7 99.7 Pulse 120 118 Resp 23 B/P (MAP) 118/56 (76) 116/56 (76) Pulse Ox 100 100 99 O2 Delivery Ventilator Mechanical Ventilator Ventilator Ventilator 01/14/20 01/14/20 01/15/20 01/15/20 22:00 23:00 00:00 00:00 Temp 99.2 99.2 Pulse 119 118 122 Resp 23 23 23 B/P (MAP) 109/57 (74) 111/55 (73) 128/56 (80) Pulse Ox 100 100 100 O2 Delivery Ventilator Ventilator Ventilator Mechanical Ventilator 01/15/20 01/15/20 01/15/20 01/15/20 00:15 00:39 01:00 02:00 Pulse 119 118 Resp 20 B/P (MAP) 90/52 (65) 114/53 (73) Pulse Ox 100 100 100 100 O2 Delivery Ventilator Ventilator Ventilator O2 Flow Rate 15.0 01/15/20 01/15/20 01/15/20 01/15/20 03:00 04:00 04:00 04:30 Temp 99.0 99.0 Pulse 119 118 Resp 23 B/P (MAP) 116/58 (77) 119/58 (78) Pulse Ox 100 100 100 O2 Delivery Ventilator Ventilator Mechanical Ventilator Ventilator 8/08/3101/15/20 01/15/20 01/15/20 05:00 05:45 06:00 06:10 Pulse 117 110 121 122 Resp 22 22 B/P (MAP) 102/55 (71) 80/56 (64) 156/85 (108) 148/75 (99) Pulse Ox 100 100 100 O2 Delivery Ventilator Ventilator Ventilator 01/15/20 01/15/20 01/15/20 01/15/20 06:25 07:00 07:36 08:00 Temp 99.6 99.6 Pulse 118 122 118 Resp 20 B/P (MAP) 102/62 (75) 119/63 (81) 95/59 (71) Pulse Ox 100 99 100 O2 Delivery Ventilator Ventilator Ventilator 01/15/20 01/15/20 01/15/20 01/15/20 08:00 08:15 08:30 08:45 Pulse 108 110 110 B/P (MAP) 116/89 (98) 94/51 (65) 96/51 (66) O2 Delivery Mechanical Ventilator 01/15/20 01/15/20 01/15/20 01/15/20 09:00 09:15 09:30 09:45 Pulse 108 108 96 104 Resp 20 B/P (MAP) 107/55 (72) 118/63 (81) 154/70 (98) 129/61 (83) Pulse Ox 100 O2 Delivery Ventilator 01/15/20 01/15/20 01/15/20 01/15/20 09:50 10:00 10:15 10:30 Pulse 104 102 98 Resp 20 B/P (MAP) 158/69 (98) 119/52 (74) 104/50 (68) Pulse Ox 99 100 O2 Delivery Ventilator Ventilator 01/15/20 01/15/20 01/15/20 01/15/20 10:36 10:45 11:00 11:15 Pulse 100 92 94 Resp 20 20 B/P (MAP) 110/53 (72) 78/39 (52) 115/54 (74) Pulse Ox 99 100 O2 Delivery Ventilator Ventilator 01/15/20 01/15/20 01/15/20 01/15/20 11:23 11:30 11:45 12:00 Temp 98.6 98.6 Pulse 94 96 96 Resp 20 B/P (MAP) 126/49 (74) 124/61 (82) 128/73 (91) Pulse Ox 100 100 O2 Delivery Ventilator Ventilator 01/15/20 01/15/20 01/15/20 01/15/20 12:00 12:15 12:30 12:45 Pulse 94 116 108 B/P (MAP) 135/67 (89) 126/65 (85) 103/57 (72) O2 Delivery Mechanical Ventilator 01/15/20 01/15/20 01/15/20 01/15/20 13:00 13:15 13:30 15:00 Pulse 82 82 88 86 Resp 20 20 B/P (MAP) 112/61 (78) 125/66 (85) 124/70 (88) 106/58 (74) Pulse Ox 100 100 O2 Delivery Ventilator Ventilator 01/15/20 01/15/20 01/15/20 15:24 16:00 16:00 Temp 97.8 97.8 Pulse 90 Resp 20 B/P (MAP) 149/60 (89) Pulse Ox 100 100 O2 Delivery Ventilator Mechanical Ventilator Ventilator Intake and Output 01/14/20 01/14/20 01/15/20 15:00 23:00 07:00 Intake Total 1377 ml 2242.5 ml Output Total 295 ml 195 ml 300 ml Balance -295 ml 1182 ml 1942.5 ml DELONTE STARK MD Jan 15, 2020 16:41
--- NOTE | 2020-01-15 19:32 | NUR ---
Talked with [facility] nurse Emperatriz [phone]. She stated that upon discharge that they will not continue with HH services due to patient and his are in need of a higher level of care. Also talked with Johnathan the patients neighbor and DPOA and he informed me that he found patients down on the floor today in their apt/house. She is being admitted to [facility].
[2020-01-15] MEDS: ENOXAPARIN 40 MG/0.4 ML SYRINGE. SQ SCH (21:06)
--- NOTE | 2020-01-15 22:10 | RAD ---
Exam: Bilateral lower extremity venous duplex study INDICATION: Leg swelling TECHNIQUE: Using a combination of real-time ultrasound imaging and color-flow and pulse Doppler imaging techniques along with graded compression and augmentation, duplex evaluation of the deep venous systems of bilateral lower extremity was performed. Multiple images were obtained. Findings: Occlusive thrombus in the left superficial femoral vein. Partially occlusive thrombus seen in the left popliteal vein. There is no sonographic evidence for deep venous thrombosis involving the visualized deep venous structures of the right lower extremity. IMPRESSION: 1. Occlusive thrombus in the left superficial femoral vein extending into the popliteal vein where it is nonocclusive. 2. No acute DVT in the right lower extremities. Electronically signed by: Justine Limon MD (01/15/2020 10:07 PM) [id number]
[2020-01-15 23:11] LABS: VANC TR 14.4 mcg/mL (10.0-20.0)
[2020-01-15] MEDS: VANCOMYCIN 2 GM in IV NORMAL SALINE 500ML BAG 500 ML IV SCH (23:20)
--- NOTE | 2020-01-15 23:24 | NUR ---
Pharmacy Vancomycin Dosing Note S:Consulted to monitor and dose vancomycin started 01/13/20. O:RED MOMIN is a 65 year old M with Sepsis Pneumonia . Height: 5 feet, 11 inches Weight: 128.566938 kg [place] Body Weight: 75.30 Adjusted Body Weight: 96.90 Dosing Weight: Actual Other Antibiotics: LABS: Last BUN: 24 Last Creatinine: 1.8 Creatinine Clearance: 55 mL/min Last WBC: 17 Last Procalcitonin: <0.10 Tmax (past 24 hours): 99.7 Microbiology: I/O: 3966/410 Drug Levels: Last Trough level: 14.4 on 01/15/20 at 2230 Last dose given 01/14/20 at 2342 Vancomycin Dosing: Loading Dose: 2000 mg x1 Dosing Weight: Actual Target Trough: 15-20 A: Based on: TROUGH P: 1. Continue Vancomycin 2000 mg IV q24h 2. Follow up Trough level IF NECESSARY 3. Pharmacy will continue to monitor, follow and adjust therapy as needed. CHANDNI JURADO RPH, 01/15/20 2324 Signed: 01/15/20 at 2325 by CHANDNI JURADO RPH PHA
[2020-01-16] VITALS (30 sets, daily range): BP systolic 75–149; BP diastolic 45–76
[2020-01-16] MEDS: PIPERACILLIN/TAZOBACTAM 4.5 GM in IV NORMAL SALINE 100ML 100 ML IV SCH ×5 (00:28→23:40)
[2020-01-16] MEDS: NOREPINEPHRINE VIAL 32 MG in IV D5W 250ML IV PRN (00:29)
[2020-01-16 05:19] LABS: HEMATOCRIT 25.4 % (39.0-53.0); HEMOGLOBIN 8.9 g/dL (13.0-17.5); RED BLOOD COUNT 2.77 x10^6/uL (4.30-5.70); WHITE BLOOD COUNT 10.7 x10^3/uL (4.0-11.0)
[2020-01-16 05:36] LABS: CALCIUM 7.7 mg/dL (8.5-10.1); CREATININE 1.3 mg/dL (0.7-1.3); GFR 55.2; POTASSIUM 4.7 mmol/L (3.5-5.1)
[2020-01-16] MEDS: ASPIRIN ENTERIC COATED 81 MG TABLET.DR. PO SCH (08:05)
[2020-01-16] MEDS: PANTOPRAZOLE IV PUSH 40 MG VIAL. IVP SCH (08:05)
[2020-01-16 08:19] LABS: BASE EXCESS ABG -8 mmol/L (-3-3); HCO3 ABG 17 mmol/L (21-28); PCO2 ABG 35 mmHg (35-46); PO2 ABG 103 mmHg (65-108); SAT O2 ABG 97 % (92-99)
[2020-01-16 08:20] LABS: FIO2 ABG 35
[2020-01-16] MEDS: INSULIN LISPRO 300 UNITS/3 ML VIAL. SQ SCH ×2 (08:43→13:49)
[2020-01-16] MEDS: MIDAZOLAM 100mg/100ml NS BAG 100 ML IV PRN (08:45)
[2020-01-16] MEDS: CHLORHEXIDINE 0.12% 15 ML MOUTHWASH. MM SCH (08:59)
--- NOTE | 2020-01-16 09:02 | PDOC ---
DATE OF SERVICE DATE: 01/16/20 TIME: 08:57 SUBJECTIVE ROS Stable, remains Intubated, off pressors, UOP improved OBJECTIVE Vital Signs Vital Signs Date Time Temp Pulse Resp B/P (MAP) Pulse Ox O2 Delivery O2 Flow Rate FiO2 01/16/20 07:50 99 Ventilator 01/16/20 06:00 85 21 110/52 (71) 01/16/20 04:00 98.4 98.4 I & 0 Intake and Output 01/16/20 07:00 Intake Total 5158.44 ml Output Total 2285 ml Balance 2873.44 ml Intake IV Total 4090.44 ml Tube Feeding 468 ml Other 600 ml Output Urine Total 2285 ml Gastric Drainage Total 0 ml PHYSICAL EXAM Physical Exam GEN: Intubated, On MV HEENT: Intubated NECK: Supple LUNGS: Clear to auscultation ant HEART: RRR, S!, S2 present. ABDOMEN: Soft, nontender. EXTREMITIES: No clubbing, cyanosis, or edema. Left below knee amputation NEUROLOGIC: Intubated PSYCHIATRIC: Intubated SKIN: No rash Brooks + DIAGNOSIS/ASSESSMENT Assessment & Plan BRYCE - ATN ,Creat improving , UOP good E-lytes stable , UA unremarkable , Supportive care , strict I/O, Avoid nephrotoxins CKD stage 2- Baseline Cr probably 1.2 with [facility] in 2017 Anemia- per primary Acute hypoxemic respiratory failure secondary to septic shock, source unknown CoVid 19 negative Encephalopathy- suspected suicidal attempt with insulin Abnormal chest x-ray Septic Shock Diabetes mellitus History of cerebrovascular accident. Lower extremity edema. COMMENT/RELEVANT DATA Meds Current Medications Medications (Trade) Dose Ordered Sig/Serenity Start Time Stop Time Status Last Admin Dose Admin Aspirin (Ecotrin) 81 mg [id number] 01/16/20 08:00 01/16/20 08:05 81 MG Chlorhexidine Gluconate (Peridex) 15 ml BID 01/13/20 21:00 01/15/20 21:05 15 ML Dextrose 1,000 ml @ 75 mls/hr [id number] 01/14/20 21:30 01/15/20 15:50 DC 01/15/20 11:15 75 MLS/HR Dextrose (Dextrose 50%-Water Syringe) 12.5 gm PRN Q15MIN PRN 01/13/20 20:45 01/15/20 00:41 12.5 GM Enoxaparin Sodium (Lovenox 40mg Syringe) 40 mg QHS 01/14/20 02:15 01/15/20 21:06 40 MG Enoxaparin Sodium (Lovenox Per Pharmacy Prophylaxis Dosing) 1 each PRN DAILY PRN 01/14/20 02:00 Etomidate (Amidate) 20 mg 1X ONCE 01/13/20 19:00 01/13/20 19:25 DC 01/13/20 19:52 20 MG Fentanyl Citrate 30 ml @ 0 mls/hr CONT PRN 01/14/20 16:00 01/15/20 21:08 2.5 MLS/HR Fentanyl Citrate (Fentanyl 2ml Vial) 50 mcg PRN Q1HR PRN 01/13/20 18:45 Glucagon (Glucagen) 1 mg PRN Q15MIN PRN 01/14/20 09:30 01/15/20 04:12 1 MG Insulin Human Lispro (HumaLOG) 0-5 UNITS TIDWMEALS 01/14/20 08:00 01/16/20 08:43 4 UNITS Insulin Human Regular (HumuLIN R VIAL) 12 unit 1X ONCE 01/13/20 19:45 01/13/20 19:46 DC 01/13/20 19:45 12 UNIT Levofloxacin/ Dextrose 150 ml @ 100 mls/hr 1X ONCE 01/13/20 21:00 01/13/20 22:29 DC 01/13/20 21:05 100 MLS/HR Magnesium Sulfate 50 ml @ 25 mls/hr 1X ONCE 01/13/20 19:45 01/13/20 21:44 DC 01/14/20 01:11 25 MLS/HR Midazolam HCl 100 ml @ 0 mls/hr CONT PRN 01/13/20 22:15 01/16/20 08:45 5 MLS/HR Midazolam HCl (Versed) 5 mg PRN Q1HR PRN 01/13/20 18:45 01/13/20 19:53 5 MG Naloxone HCl (Narcan) 0.4 mg PRN Q2MIN PRN 01/14/20 16:00 Norepinephrine Bitartrate 32 mg/ Dextrose 250 ml @ 5.484 mls/ hr CONT PRN 01/14/20 07:45 01/16/20 00:29 9.872 MLS/HR Norepinephrine Bitartrate 8 mg/ Dextrose 258 ml @ 22.678 mls/ hr CONT PRN 01/14/20 02:45 01/14/20 09:00 DC 01/14/20 02:42 32.9 MLS/HR Ondansetron HCl (Zofran) 4 mg PRN Q8HRS PRN 01/13/20 20:45 01/14/20 20:44 DC Pantoprazole Sodium (PROTONIX VIAL for IV PUSH) 40 mg DAILYAC 01/14/20 13:00 01/16/20 08:05 40 MG Piperacillin Sod/ Tazobactam Sod 4.5 gm/Sodium Chloride 100 ml @ 200 mls/hr Q6HRS 01/15/20 16:00 01/16/20 05:50 200 MLS/HR Potassium Chloride 20 meq/ Dextrose/Sodium Chloride 1,010 ml @ 85 mls/hr [id number] 01/14/20 02:00 UNV Potassium Chloride/Dextrose/ Sod Cl 1,000 ml @ 85 mls/hr [id number] 01/14/20 02:15 01/14/20 21:20 DC 01/14/20 14:19 85 MLS/HR Potassium Chloride/Water 100 ml @ 100 mls/hr Q1H 01/14/20 11:00 01/14/20 14:59 DC 01/14/20 14:19 100 MLS/HR Rocuronium [place] (Zemuron) 50 mg 1X ONCE 01/13/20 19:00 01/13/20 19:25 DC 01/13/20 19:52 50 MG Sodium Chloride 500 ml @ 500 mls/hr 1X ONCE 01/15/20 12:30 01/15/20 13:29 DC 01/15/20 12:30 500 MLS/HR Vancomycin HCl (Vanco Per Pharmacy) 1 each PRN DAILY PRN 01/13/20 19:45 01/15/20 23:24 1 EACH Vancomycin HCl (Vancomycin Trough Level) 1 each 1X ONCE 01/15/20 22:30 01/15/20 22:31 DC 01/15/20 22:30 1 EACH Vancomycin HCl 1.75 gm/Sodium Chloride 500 ml @ 250 mls/hr Q18H 01/14/20 17:00 Cancel Vancomycin HCl 2 gm/Sodium Chloride 500 ml @ 250 mls/hr Q24H 01/14/20 23:00 01/15/20 23:20 250 MLS/HR Vasopressin 20 unit/Dextrose 101 ml @ 12 mls/hr CONT PRN 01/14/20 09:45 Lab Laboratory Tests Test 01/15/20 10:01 01/15/20 11:39 01/15/20 13:46 01/15/20 15:38 Glucose (Fingerstick) 73 mg/dL (70-99) 70 mg/dL (70-99) 88 mg/dL (70-99) 124 mg/dL (70-99) Test 01/15/20 17:34 01/15/20 22:29 01/15/20 22:30 01/16/20 05:00 Glucose (Fingerstick) 133 mg/dL (70-99) 122 mg/dL (70-99) Vancomycin Level Trough 14.4 mcg/mL (10.0-20.0) Vancomycin Last Dose Date Vancomycin Last Dose Time White Blood Count 10.7 x10^3/uL (4.0-11.0) Red Blood Count 2.77 x10^6/uL (4.30-5.70) Hemoglobin 8.9 g/dL (13.0-17.5) Hematocrit 25.4 % (39.0-53.0) Mean Corpuscular Volume 92 fL (79-100) Mean Corpuscular Hemoglobin 32 pg (25-35) Mean Corpuscular Hemoglobin Concent 35 g/dL (31-37) Red Cell Distribution Width 16.0 % (11.5-14.5) Platelet Count 129 x10^3/uL (140-400) Sodium Level 138 mmol/L (136-145) Potassium Level 4.7 mmol/L (3.5-5.1) Chloride Level 108 mmol/L (98-107) Carbon Dioxide Level 22 mmol/L (21-32) Anion Gap 8 (6-14) Blood Urea Nitrogen 21 mg/dL (8-26) Creatinine 1.3 mg/dL (0.7-1.3) Estimated GFR (Cockcroft-Gault) 55.2 Glucose Level 221 mg/dL (70-99) Calcium Level 7.7 mg/dL (8.5-10.1) Test 01/16/20 07:55 01/16/20 08:15 O2 Saturation 97 % (92-99) Arterial Blood pH 7.32 (7.35-7.45) Arterial Blood pCO2 at Patient Temp 35 mmHg (35-46) Arterial Blood pO2 at Patient Temp 103 mmHg (65-108) Arterial Blood HCO3 17 mmol/L (21-28) Arterial Blood Base Excess -8 mmol/L (-3-3) FiO2 35 Glucose (Fingerstick) 276 mg/dL (70-99) Results All relevant outside records, renal labs, imaging studies, telemetry/EKG's were reviewed. Other CxR--01/14 1. New platelike atelectasis of the left midlung. No other new findings. Justicifation of Admission Dx: Justifications for Admission: Justification of Admission Dx: Yes Aspiration Pneumonia: Hemodynamic Instability Sepsis: Altered Mental Status Altered Mental Status: Altered Mental Status SVITLANA FELIZ MD Jan 16, 2020 09:02
--- NOTE | 2020-01-16 09:34 | PDOC ---
PROGRESS NOTES Assessment Problems Medical Problems: (1) Acute renal insufficiency Status: Acute (2) Altered mental status Status: Acute (3) Aspiration pneumonia Status: Acute (4) Hyperglycemia Status: Acute (5) Hypomagnesemia Status: Acute (6) Septic shock Status: Acute Acute encephalopathy Fall Hyperglycemia and hypoglycemia, Respiratory failure, septic shock, acute kidney injury, possible non-ST elevation myocardial infarction History of cerebrovascular accident. History of suicidal gestures Plan Extubate today? Treat medical issues Repeat head CT, and electroencephalogram depending on course. Subjective None Objective Vital Signs Date Time Temp Pulse Resp B/P (MAP) Pulse Ox O2 Delivery O2 Flow Rate FiO2 01/16/20 09:12 23 98 Ventilator 01/16/20 06:00 85 110/52 (71) 01/16/20 04:00 98.4 98.4 Intake and Output 01/16/20 07:00 Intake Total 5158.44 ml Output Total 2285 ml Balance 2873.44 ml Intake IV Total 4090.44 ml Tube Feeding 468 ml Other 600 ml Output Urine Total 2285 ml Gastric Drainage Total 0 ml PHYSICAL EXAM Sedated, on ventilator PERRL. EOMI. CN: no focal findings. Muscle tone: normal. Muscle strength: minimal withdrawal to pain DTR: 1+ Plantar reflex: silent on right, left BKA Gait: not examined in bed. Sensory exam: not cooperative. Cerebellar: not cooperative Review of Relevant I have reviewed the following items lauryn (where applicable) has been applied. Labs Laboratory Tests Test 01/14/20 09:52 01/14/20 10:00 01/14/20 10:36 01/14/20 11:20 Glucose (Fingerstick) 91 mg/dL (70-99) 83 mg/dL (70-99) 112 mg/dL (70-99) Sodium Level 139 mmol/L (136-145) Potassium Level 3.4 mmol/L (3.5-5.1) Chloride Level 105 mmol/L (98-107) Carbon Dioxide Level 23 mmol/L (21-32) Anion Gap 11 (6-14) Blood Urea Nitrogen 30 mg/dL (8-26) Creatinine 1.7 mg/dL (0.7-1.3) Estimated GFR (Cockcroft-Gault) 40.5 Glucose Level 93 mg/dL (70-99) Calcium Level 8.4 mg/dL (8.5-10.1) Procalcitonin < 0.10 ng/mL (0.00-0.10) Test 01/14/20 12:40 01/14/20 12:43 01/14/20 14:23 01/14/20 16:45 Coronavirus (PCR) Not detected (Not Detected) Glucose (Fingerstick) 173 mg/dL (70-99) 139 mg/dL (70-99) Sodium Level 138 mmol/L (136-145) Potassium Level 5.0 mmol/L (3.5-5.1) Chloride Level 106 mmol/L (98-107) Carbon Dioxide Level 22 mmol/L (21-32) Anion Gap 10 (6-14) Blood Urea Nitrogen 28 mg/dL (8-26) Creatinine 1.8 mg/dL (0.7-1.3) Estimated GFR (Cockcroft-Gault) 37.9 Glucose Level 77 mg/dL (70-99) Calcium Level 8.7 mg/dL (8.5-10.1) Test 01/14/20 16:48 01/14/20 17:21 01/14/20 18:35 01/14/20 19:49 Glucose (Fingerstick) 69 mg/dL (70-99) 98 mg/dL (70-99) 91 mg/dL (70-99) 72 mg/dL (70-99) Test 01/14/20 20:57 01/14/20 21:11 01/14/20 22:23 01/14/20 23:45 Glucose (Fingerstick) 49 mg/dL (70-99) 122 mg/dL (70-99) 73 mg/dL (70-99) 72 mg/dL (70-99) Test 01/15/20 00:32 01/15/20 00:45 01/15/20 02:02 01/15/20 03:56 Glucose (Fingerstick) 63 mg/dL (70-99) 109 mg/dL (70-99) 74 mg/dL (70-99) 60 mg/dL (70-99) Test 01/15/20 04:32 01/15/20 05:45 01/15/20 05:50 01/15/20 07:55 Glucose (Fingerstick) 80 mg/dL (70-99) 81 mg/dL (70-99) Sodium Level 139 mmol/L (136-145) Potassium Level 4.4 mmol/L (3.5-5.1) Chloride Level 107 mmol/L (98-107) Carbon Dioxide Level 24 mmol/L (21-32) Anion Gap 8 (6-14) Blood Urea Nitrogen 24 mg/dL (8-26) Creatinine 1.8 mg/dL (0.7-1.3) Estimated GFR (Cockcroft-Gault) 37.9 Glucose Level 80 mg/dL (70-99) Calcium Level 8.2 mg/dL (8.5-10.1) Magnesium Level 1.8 mg/dL (1.8-2.4) Triglycerides Level 154 mg/dL (0-150) Cholesterol Level 117 mg/dL (0-200) LDL Cholesterol, Calculated 51 mg/dL (0-100) VLDL Cholesterol, Calculated 31 mg/dL (0-40) Non-HDL Cholesterol Calculated 82 mg/dL (0-129) HDL Cholesterol 35 mg/dL (40-60) Cholesterol/HDL Ratio 3.3 Vitamin B12 Level 961 pg/mL (247-911) Thyroid Stimulating Hormone (TSH) 0.160 uIU/mL (0.358-3.74) O2 Saturation 97 % (92-99) Arterial Blood pH 7.35 (7.35-7.45) Arterial Blood pCO2 at Patient Temp 32 mmHg (35-46) Arterial Blood pO2 at Patient Temp 95 mmHg (65-108) Arterial Blood HCO3 17 mmol/L (21-28) Arterial Blood Base Excess -7 mmol/L (-3-3) FiO2 40% Test 01/15/20 08:15 01/15/20 08:17 01/15/20 10:01 01/15/20 11:39 White Blood Count 17.0 x10^3/uL (4.0-11.0) Red Blood Count 3.36 x10^6/uL (4.30-5.70) Hemoglobin 10.4 g/dL (13.0-17.5) Hematocrit 30.7 % (39.0-53.0) Mean Corpuscular Volume 91 fL (79-100) Mean Corpuscular Hemoglobin 31 pg (25-35) Mean Corpuscular Hemoglobin Concent 34 g/dL (31-37) Red Cell Distribution Width 15.3 % (11.5-14.5) Platelet Count 190 x10^3/uL (140-400) Neutrophils (%) (Auto) 70 % (31-73) Lymphocytes (%) (Auto) 19 % (24-48) Monocytes (%) (Auto) 11 % (0-9) Eosinophils (%) (Auto) 0 % (0-3) Basophils (%) (Auto) 0 % (0-3) Neutrophils # (Auto) 11.8 x10^3/uL (1.8-7.7) Lymphocytes # (Auto) 3.2 x10^3/uL (1.0-4.8) Monocytes # (Auto) 1.9 x10^3/uL (0.0-1.1) Eosinophils # (Auto) 0.0 x10^3/uL (0.0-0.7) Basophils # (Auto) 0.0 x10^3/uL (0.0-0.2) Segmented Neutrophils % 64 % (35-66) Band Neutrophils % 4 % (0-9) Lymphocytes % 22 % (24-48) Atypical Lymphocytes % (Manual) 1 % (0-0) Monocytes % 8 % (0-10) Eosinophils % 1 % (0-5) Platelet Estimate Adequate (ADEQUATE) Polychromasia Slight Glucose (Fingerstick) 81 mg/dL (70-99) 73 mg/dL (70-99) 70 mg/dL (70-99) Test 01/15/20 13:46 01/15/20 15:38 01/15/20 17:34 01/15/20 22:29 Glucose (Fingerstick) 88 mg/dL (70-99) 124 mg/dL (70-99) 133 mg/dL (70-99) 122 mg/dL (70-99) Test 01/15/20 22:30 01/16/20 05:00 01/16/20 07:55 01/16/20 08:15 Vancomycin Level Trough 14.4 mcg/mL (10.0-20.0) Vancomycin Last Dose Date Vancomycin Last Dose Time White Blood Count 10.7 x10^3/uL (4.0-11.0) Red Blood Count 2.77 x10^6/uL (4.30-5.70) Hemoglobin 8.9 g/dL (13.0-17.5) Hematocrit 25.4 % (39.0-53.0) Mean Corpuscular Volume 92 fL (79-100) Mean Corpuscular Hemoglobin 32 pg (25-35) Mean Corpuscular Hemoglobin Concent 35 g/dL (31-37) Red Cell Distribution Width 16.0 % (11.5-14.5) Platelet Count 129 x10^3/uL (140-400) Sodium Level 138 mmol/L (136-145) Potassium Level 4.7 mmol/L (3.5-5.1) Chloride Level 108 mmol/L (98-107) Carbon Dioxide Level 22 mmol/L (21-32) Anion Gap 8 (6-14) Blood Urea Nitrogen 21 mg/dL (8-26) Creatinine 1.3 mg/dL (0.7-1.3) Estimated GFR (Cockcroft-Gault) 55.2 Glucose Level 221 mg/dL (70-99) Calcium Level 7.7 mg/dL (8.5-10.1) O2 Saturation 97 % (92-99) Arterial Blood pH 7.32 (7.35-7.45) Arterial Blood pCO2 at Patient Temp 35 mmHg (35-46) Arterial Blood pO2 at Patient Temp 103 mmHg (65-108) Arterial Blood HCO3 17 mmol/L (21-28) Arterial Blood Base Excess -8 mmol/L (-3-3) FiO2 35 Glucose (Fingerstick) 276 mg/dL (70-99) Laboratory Tests Test 01/15/20 10:01 01/15/20 11:39 01/15/20 13:46 01/15/20 15:38 Glucose (Fingerstick) 73 mg/dL (70-99) 70 mg/dL (70-99) 88 mg/dL (70-99) 124 mg/dL (70-99) Test 01/15/20 17:34 01/15/20 22:29 01/15/20 22:30 01/16/20 05:00 Glucose (Fingerstick) 133 mg/dL (70-99) 122 mg/dL (70-99) Vancomycin Level Trough 14.4 mcg/mL (10.0-20.0) Vancomycin Last Dose Date Vancomycin Last Dose Time White Blood Count 10.7 x10^3/uL (4.0-11.0) Red Blood Count 2.77 x10^6/uL (4.30-5.70) Hemoglobin 8.9 g/dL (13.0-17.5) Hematocrit 25.4 % (39.0-53.0) Mean Corpuscular Volume 92 fL (79-100) Mean Corpuscular Hemoglobin 32 pg (25-35) Mean Corpuscular Hemoglobin Concent 35 g/dL (31-37) Red Cell Distribution Width 16.0 % (11.5-14.5) Platelet Count 129 x10^3/uL (140-400) Sodium Level 138 mmol/L (136-145) Potassium Level 4.7 mmol/L (3.5-5.1) Chloride Level 108 mmol/L (98-107) Carbon Dioxide Level 22 mmol/L (21-32) Anion Gap 8 (6-14) Blood Urea Nitrogen 21 mg/dL (8-26) Creatinine 1.3 mg/dL (0.7-1.3) Estimated GFR (Cockcroft-Gault) 55.2 Glucose Level 221 mg/dL (70-99) Calcium Level 7.7 mg/dL (8.5-10.1) Test 01/16/20 07:55 01/16/20 08:15 O2 Saturation 97 % (92-99) Arterial Blood pH 7.32 (7.35-7.45) Arterial Blood pCO2 at Patient Temp 35 mmHg (35-46) Arterial Blood pO2 at Patient Temp 103 mmHg (65-108) Arterial Blood HCO3 17 mmol/L (21-28) Arterial Blood Base Excess -8 mmol/L (-3-3) FiO2 35 Glucose (Fingerstick) 276 mg/dL (70-99) Microbiology 01/14/20 Blood Culture - Preliminary, Resulted NO GROWTH AFTER 2 DAYS Medications Current Medications Sodium Chloride 1,000 ml @ 1,000 mls/hr 1X ONCE IV Last administered on 01/13/20at 18:20; Start 01/13/20 at 18:45; Stop 01/13/20 at 19:44; Status DC Sodium Chloride 1,000 ml @ 1,000 mls/hr 1X ONCE IV Last administered on 01/13/20at 18:35; Start 01/13/20 at 18:45; Stop 01/13/20 at 19:44; Status DC Fentanyl Citrate (Fentanyl 2ml Vial) 50 mcg PRN Q1HR PRN IV SEE COMMENTS; Start 01/13/20 at 18:45 Chlorhexidine Gluconate (Peridex) 15 ml BID MM Last administered on 01/16/20at 08:59; Start 01/13/20 at 21:00 Midazolam HCl (Versed) 5 mg PRN Q1HR PRN IV AGITATION Last administered on 01/13/20at 19:53; Start 01/13/20 at 18:45 Etomidate (Amidate) 20 mg STK-MED ONCE IV ; Start 01/13/20 at 18:58; Stop 01/13/20 at 18:59; Status DC Rocuronium [place] (Zemuron) 50 mg STK-MED ONCE .ROUTE ; Start 01/13/20 at 18:59; Stop 01/13/20 at 18:59; Status DC Rocuronium [place] (Zemuron) 50 mg 1X ONCE IV Last administered on 01/13/20at 19:52; Start 01/13/20 at 19:00; Stop 01/13/20 at 19:25; Status DC Etomidate (Amidate) 20 mg 1X ONCE IV Last administered on 01/13/20at 19:52; Start 01/13/20 at 19:00; Stop 01/13/20 at 19:25; Status DC Potassium Chloride/Water 100 ml @ 100 mls/hr Q1H IV Last administered on 01/14/20at 00:34; Start 01/13/20 at 19:15; Stop 01/13/20 at 23:14; Status DC Norepinephrine Bitartrate 8 mg/ Dextrose 258 ml @ 24.633 mls/ hr 1X ONCE IV Last administered on 01/13/20at 19:45; Start 01/13/20 at 19:45; Stop 01/14/20 at 06:13; Status DC Piperacillin Sod/ Tazobactam Sod 4.5 gm/Sodium Chloride 100 ml @ 200 mls/hr 1X ONCE IV Last administered on 01/13/20at 19:45; Start 01/13/20 at 19:45; Stop 01/13/20 at 20:14; Status DC Sodium Chloride 1,000 ml @ 1,000 mls/hr 1X ONCE IV Last administered on 01/13/20at 19:45; Start 01/13/20 at 19:45; Stop 01/13/20 at 20:44; Status DC Levofloxacin/ Dextrose 150 ml @ 100 mls/hr 1X ONCE IV Last administered on 01/13/20at 21:05; Start 01/13/20 at 21:00; Stop 01/13/20 at 22:29; Status DC Vancomycin HCl (Vanco Per Pharmacy) 1 each PRN DAILY PRN MC SEE COMMENTS Last administered on 01/15/20at 23:24; Start 01/13/20 at 19:45 Magnesium Sulfate 50 ml @ 25 mls/hr 1X ONCE IV Last administered on 01/14/20at 01:11; Start 01/13/20 at 19:45; Stop 01/13/20 at 21:44; Status DC Insulin Human Regular (HumuLIN R VIAL) 12 unit 1X ONCE SQ Last administered on 01/13/20at 19:45; Start 01/13/20 at 19:45; Stop 01/13/20 at 19:46; Status DC Ondansetron HCl (Zofran) 4 mg PRN Q8HRS PRN IV NAUSEA/VOMITING; Start 01/13/20 at 20:45; Stop 01/14/20 at 20:44; Status DC Insulin Human Lispro (HumaLOG) 0-5 UNITS TIDWMEALS SQ Last administered on 01/16/20at 08:43; Start 01/14/20 at 08:00 Dextrose (Dextrose 50%-Water Syringe) 12.5 gm PRN Q15MIN PRN IV SEE COMMENTS Last administered on 01/15/20at 00:41; Start 01/13/20 at 20:45 Sodium Chloride 1,000 ml @ 100 mls/hr 1X ONCE IV Last administered on 01/13/20at 21:10; Start 01/13/20 at 20:45; Stop 01/14/20 at 06:44; Status DC Vancomycin HCl 2 gm/Sodium Chloride 500 ml @ 250 mls/hr 1X ONCE IV Last administered on 01/13/20at 22:59; Start 01/13/20 at 21:00; Stop 01/13/20 at 22:59; Status DC Midazolam HCl 100 ml @ 0 mls/hr CONT PRN IV SEE PROTOCOL Last administered on 01/16/20at 08:45; Start 01/13/20 at 22:15 Vancomycin HCl 2 gm/Sodium Chloride 500 ml @ 250 mls/hr Q24H IV Last administered on 01/15/20at 23:20; Start 01/14/20 at 23:00 Vancomycin HCl (Vancomycin Trough Level) 1 each 1X ONCE MC Last administered on 01/15/20at 22:30; Start 01/15/20 at 22:30; Stop 01/15/20 at 22:31; Status DC Enoxaparin Sodium (Lovenox Per Pharmacy Prophylaxis Dosing) 1 each PRN DAILY PRN MC SEE COMMENTS; Start 01/14/20 at 02:00 Potassium Chloride 20 meq/ Dextrose/Sodium Chloride 1,010 ml @ 85 mls/hr [id number] IV ; Start 01/14/20 at 02:00; Status UNV Potassium Chloride/Dextrose/ Sod Cl 1,000 ml @ 85 mls/hr [id number] IV Last administered on 01/14/20at 14:19; Start 01/14/20 at 02:15; Stop 01/14/20 at 21:20; Status DC Enoxaparin Sodium (Lovenox 40mg Syringe) 40 mg QHS SQ Last administered on 01/15/20at 21:06; Start 01/14/20 at 02:15 Norepinephrine Bitartrate 8 mg/ Dextrose 258 ml @ 22.678 mls/ hr CONT PRN IV PER PROTOCOL Last administered on 01/14/20at 02:42; Start 01/14/20 at 02:45; Stop 01/14/20 at 09:00; Status DC Norepinephrine Bitartrate 32 mg/ Dextrose 250 ml @ 5.484 mls/ hr CONT PRN IV SEE I/O RECORD Last administered on 01/16/20at 00:29; Start 01/14/20 at 07:45 Glucagon (Glucagen) 1 mg PRN Q15MIN PRN IV LOW BLOOD SUGAR Last administered on 01/15/20at 04:12; Start 01/14/20 at 09:30 Vasopressin 20 unit/Dextrose 101 ml @ 12 mls/hr CONT PRN IV SEE I/O RECORD; Start 01/14/20 at 09:45 Potassium Chloride/Water 100 ml @ 100 mls/hr Q1H IV Last administered on 01/14/20at 14:19; Start 01/14/20 at 11:00; Stop 01/14/20 at 14:59; Status DC Vancomycin HCl 1.75 gm/Sodium Chloride 500 ml @ 250 mls/hr Q18H IV ; Start 01/14/20 at 17:00; Status Cancel Pantoprazole Sodium (PROTONIX VIAL for IV PUSH) 40 mg DAILYAC IVP Last administered on 01/16/20at 08:05; Start 01/14/20 at 13:00 Fentanyl Citrate 30 ml @ 0 mls/hr CONT PRN IV SEE I/O RECORD; Start 01/14/20 at 16:00; Status Cancel Naloxone HCl (Narcan) 0.4 mg PRN Q2MIN PRN IV SEE INSTRUCTIONS; Start 01/14/20 at 16:00 Sodium Chloride 1,000 ml @ 25 mls/hr Q24H IV ; Start 01/14/20 at 15:52 Fentanyl Citrate 30 ml @ 0 mls/hr CONT PRN IV SEE PROTOCOL Last administered on 01/16/20at 09:12; Start 01/14/20 at 16:00 Dextrose 1,000 ml @ 75 mls/hr [id number] IV Last administered on 01/15/20at 11:15; Start 01/14/20 at 21:30; Stop 01/15/20 at 15:50; Status DC Sodium Chloride 1,000 ml @ 1,000 mls/hr 1X ONCE IV Last administered on at 09:48; Start 01/15/20 at 09:45; Stop 01/15/20 at 10:44; Status DC Sodium Chloride 500 ml @ 500 mls/hr 1X ONCE IV Last administered on 01/15/20at 12:30; Start 01/15/20 at 12:30; Stop 01/15/20 at 13:29; Status DC Piperacillin Sod/ Tazobactam Sod 4.5 gm/Sodium Chloride 100 ml @ 200 mls/hr Q6HRS IV Last administered on 01/16/20at 05:50; Start 01/15/20 at 16:00 Aspirin (Ecotrin) 81 mg [id number] PO Last administered on 01/16/20at 08:05; Start 01/16/20 at 08:00 Active Scripts Active Aspirin 325 Mg Tablet 325 Mg PO [id number] 30 Days Atorvastatin Calcium 20 Mg Tablet 20 Mg PO QHS 30 Days Reported Trazodone Hcl 50 Mg Tablet 1 Tab PO QHS Celexa (Citalopram Hydrobromide) 10 Mg Tablet 1 Tab PO DAILY Lantus Solostar (Insulin Glargine,Hum.rec.anlog) 100 Unit/1 Ml Insuln.pen 65 Unit SQ QHS Gabapentin (Gabapentin) 300 Mg Capsule 300 Mg PO TID Nexium Capsule (Esomeprazole Magnesium) 20 Mg Capsule. 1 Cap PO DAILY Actos (Pioglitazone Hcl) 30 Mg Tablet 30 Mg PO DAILY Metformin Hcl 500 Mg Tablet 500 Mg PO BIDWMEALS Vitals/I & O Vital Sign - Last 24 Hours 01/15/20 01/15/20 01/15/20 01/15/20 09:45 09:50 10:00 10:15 Pulse 104 104 102 Resp 23 20 B/P (MAP) 129/61 (83) 158/69 (98) 119/52 (74) Pulse Ox 99 100 O2 Delivery Ventilator Ventilator 01/15/20 01/15/20 01/15/20 01/15/20 10:30 10:36 10:45 11:00 Pulse 98 100 92 Resp 20 20 B/P (MAP) 104/50 (68) 110/53 (72) 78/39 (52) Pulse Ox 99 100 O2 Delivery Ventilator Ventilator 01/15/20 01/15/20 01/15/20 01/15/20 11:15 11:23 11:30 11:45 Pulse 94 94 96 B/P (MAP) 115/54 (74) 126/49 (74) 124/61 (82) Pulse Ox 100 O2 Delivery Ventilator 01/15/20 01/15/20 01/15/20 01/15/20 12:00 12:00 12:15 12:30 Temp 98.6 98.6 Pulse 96 94 116 Resp 20 B/P (MAP) 128/73 (91) 135/67 (89) 126/65 (85) Pulse Ox 100 O2 Delivery Ventilator Mechanical Ventilator 01/15/20 01/15/20 01/15/20 01/15/20 12:45 13:00 13:15 13:30 Pulse 108 82 82 88 Resp 20 B/P (MAP) 103/57 (72) 112/61 (78) 125/66 (85) 124/70 (88) Pulse Ox 100 O2 Delivery Ventilator 01/15/20 01/15/20 01/15/20 01/15/20 15:00 15:24 16:00 16:00 Temp 97.8 97.8 Pulse 86 90 Resp 20 20 B/P (MAP) 106/58 (74) 149/60 (89) Pulse Ox 100 100 100 O2 Delivery Ventilator Ventilator Mechanical Ventilator Ventilator 01/15/20 01/15/20 01/15/20 01/15/20 17:00 18:00 19:00 19:42 Pulse 88 90 90 Resp 20 20 20 B/P (MAP) 80/39 (53) 95/47 (63) 99/45 (63) Pulse Ox 100 100 100 100 O2 Delivery Ventilator Ventilator Ventilator Ventilator 01/15/20 01/15/20 01/15/20 01/15/20 20:00 20:00 21:00 21:08 Temp 98.5 98.5 Pulse 87 88 Resp 23 21 B/P (MAP) 101/54 (70) 97/52 (67) Pulse Ox 100 100 100 O2 Delivery Ventilator Mechanical Ventilator Ventilator Ventilator 01/15/20 01/15/20 01/15/20 01/15/20 21:40 21:45 22:00 23:00 Pulse 88 89 Resp 21 23 B/P (MAP) 107/52 (70) 112/53 (72) Pulse Ox 100 100 100 100 O2 Delivery Ventilator Ventilator Ventilator Ventilator 01/15/20 01/16/20 01/16/20 01/16/20 23:10 00:00 00:00 00:15 Temp 98.4 98.4 Pulse 90 Resp 20 B/P (MAP) 114/54 (74) 99/50 (66) Pulse Ox 100 100 O2 Delivery Ventilator Mechanical Ventilator Ventilator 01/16/20 01/16/20 01/16/20 01/16/20 00:30 00:45 00:55 01:00 Pulse 78 Resp 20 B/P (MAP) 109/48 (68) 85/45 (58) 95/57 (70) Pulse Ox 100 100 O2 Delivery Ventilator Ventilator 01/16/20 01/16/20 01/16/20 01/16/20 02:00 03:00 03:23 04:00 Temp 98.4 98.4 Pulse 101 87 90 Resp 24 20 25 B/P (MAP) 126/69 (88) 117/59 (78) 118/68 (85) Pulse Ox 100 100 100 100 O2 Delivery Ventilator Ventilator Ventilator Ventilator 01/16/20 01/16/20 01/16/20 01/16/20 04:00 04:15 05:00 05:47 Pulse 84 Resp 20 B/P (MAP) 110/58 (75) 97/53 (68) Pulse Ox 100 100 O2 Delivery Mechanical Ventilator Ventilator Ventilator 01/16/20 01/16/20 01/16/20 06:00 07:50 09:12 Pulse 85 Resp 21 23 B/P (MAP) 110/52 (71) Pulse Ox 100 99 98 O2 Delivery Ventilator Ventilator Ventilator Intake and Output 01/15/20 01/15/20 01/16/20 15:00 23:00 07:00 Intake Total 1500 ml 1388.44 ml 2270 ml Output Total 935 ml 1050 ml 300 ml Balance 565 ml 338.44 ml 1970 ml Justicifation of Admission Dx: Justifications for Admission: Justification of Admission Dx: Yes Aspiration Pneumonia: Hemodynamic Instability Sepsis: Altered Mental Status Altered Mental Status: Altered Mental Status YAZ ESCOBEDO MD Jan 16, 2020 09:34
--- NOTE | 2020-01-16 10:29 | PDOC ---
PULMONARY PROGRESS NOTES DATE: 01/16/20 TIME: 10:25 Subjective Pt. remains on Vent 35% and PEEP of 5, off pressors and off sedation today no overnight concerns from nursing Vitals Vital Signs Date Time Temp Pulse Resp B/P (MAP) Pulse Ox O2 Delivery O2 Flow Rate FiO2 01/16/20 10:00 84 21 75/47 (56) 96 Ventilator 01/16/20 08:00 98.3 98.3 Comments unable to obtain ROS 2/2 intubated/sedated Lungs: Clear Cardiovascular: S1, S2 Abdomen: Soft, Non-tender Neuro Exam: Alert Extremities: Other (+1 RLE) Skin: Warm, Dry Labs Laboratory Tests Test 01/14/20 10:36 01/14/20 11:20 01/14/20 12:40 01/14/20 12:43 Glucose (Fingerstick) 83 mg/dL (70-99) 112 mg/dL (70-99) 173 mg/dL (70-99) Coronavirus (PCR) Not detected (Not Detected) Test 01/14/20 14:23 01/14/20 16:45 01/14/20 16:48 01/14/20 17:21 Glucose (Fingerstick) 139 mg/dL (70-99) 69 mg/dL (70-99) 98 mg/dL (70-99) Sodium Level 138 mmol/L (136-145) Potassium Level 5.0 mmol/L (3.5-5.1) Chloride Level 106 mmol/L (98-107) Carbon Dioxide Level 22 mmol/L (21-32) Anion Gap 10 (6-14) Blood Urea Nitrogen 28 mg/dL (8-26) Creatinine 1.8 mg/dL (0.7-1.3) Estimated GFR (Cockcroft-Gault) 37.9 Glucose Level 77 mg/dL (70-99) Calcium Level 8.7 mg/dL (8.5-10.1) Test 01/14/20 18:35 01/14/20 19:49 01/14/20 20:57 01/14/20 21:11 Glucose (Fingerstick) 91 mg/dL (70-99) 72 mg/dL (70-99) 49 mg/dL (70-99) 122 mg/dL (70-99) Test 01/14/20 22:23 01/14/20 23:45 01/15/20 00:32 01/15/20 00:45 Glucose (Fingerstick) 73 mg/dL (70-99) 72 mg/dL (70-99) 63 mg/dL (70-99) 109 mg/dL (70-99) Test 01/15/20 02:02 01/15/20 03:56 01/15/20 04:32 01/15/20 05:45 Glucose (Fingerstick) 74 mg/dL (70-99) 60 mg/dL (70-99) 80 mg/dL (70-99) 81 mg/dL (70-99) Test 01/15/20 05:50 01/15/20 07:55 01/15/20 08:15 01/15/20 08:17 Sodium Level 139 mmol/L (136-145) Potassium Level 4.4 mmol/L (3.5-5.1) Chloride Level 107 mmol/L (98-107) Carbon Dioxide Level 24 mmol/L (21-32) Anion Gap 8 (6-14) Blood Urea Nitrogen 24 mg/dL (8-26) Creatinine 1.8 mg/dL (0.7-1.3) Estimated GFR (Cockcroft-Gault) 37.9 Glucose Level 80 mg/dL (70-99) Calcium Level 8.2 mg/dL (8.5-10.1) Magnesium Level 1.8 mg/dL (1.8-2.4) Triglycerides Level 154 mg/dL (0-150) Cholesterol Level 117 mg/dL (0-200) LDL Cholesterol, Calculated 51 mg/dL (0-100) VLDL Cholesterol, Calculated 31 mg/dL (0-40) Non-HDL Cholesterol Calculated 82 mg/dL (0-129) HDL Cholesterol 35 mg/dL (40-60) Cholesterol/HDL Ratio 3.3 Vitamin B12 Level 961 pg/mL (247-911) Thyroid Stimulating Hormone (TSH) 0.160 uIU/mL (0.358-3.74) O2 Saturation 97 % (92-99) Arterial Blood pH 7.35 (7.35-7.45) Arterial Blood pCO2 at Patient Temp 32 mmHg (35-46) Arterial Blood pO2 at Patient Temp 95 mmHg (65-108) Arterial Blood HCO3 17 mmol/L (21-28) Arterial Blood Base Excess -7 mmol/L (-3-3) FiO2 40% White Blood Count 17.0 x10^3/uL (4.0-11.0) Red Blood Count 3.36 x10^6/uL (4.30-5.70) Hemoglobin 10.4 g/dL (13.0-17.5) Hematocrit 30.7 % (39.0-53.0) Mean Corpuscular Volume 91 fL (79-100) Mean Corpuscular Hemoglobin 31 pg (25-35) Mean Corpuscular Hemoglobin Concent 34 g/dL (31-37) Red Cell Distribution Width 15.3 % (11.5-14.5) Platelet Count 190 x10^3/uL (140-400) Neutrophils (%) (Auto) 70 % (31-73) Lymphocytes (%) (Auto) 19 % (24-48) Monocytes (%) (Auto) 11 % (0-9) Eosinophils (%) (Auto) 0 % (0-3) Basophils (%) (Auto) 0 % (0-3) Neutrophils # (Auto) 11.8 x10^3/uL (1.8-7.7) Lymphocytes # (Auto) 3.2 x10^3/uL (1.0-4.8) Monocytes # (Auto) 1.9 x10^3/uL (0.0-1.1) Eosinophils # (Auto) 0.0 x10^3/uL (0.0-0.7) Basophils # (Auto) 0.0 x10^3/uL (0.0-0.2) Segmented Neutrophils % 64 % (35-66) Band Neutrophils % 4 % (0-9) Lymphocytes % 22 % (24-48) Atypical Lymphocytes % (Manual) 1 % (0-0) Monocytes % 8 % (0-10) Eosinophils % 1 % (0-5) Platelet Estimate Adequate (ADEQUATE) Polychromasia Slight Glucose (Fingerstick) 81 mg/dL (70-99) Test 01/15/20 10:01 01/15/20 11:39 01/15/20 13:46 01/15/20 15:38 Glucose (Fingerstick) 73 mg/dL (70-99) 70 mg/dL (70-99) 88 mg/dL (70-99) 124 mg/dL (70-99) Test 01/15/20 17:34 01/15/20 22:29 01/15/20 22:30 01/16/20 05:00 Glucose (Fingerstick) 133 mg/dL (70-99) 122 mg/dL (70-99) Vancomycin Level Trough 14.4 mcg/mL (10.0-20.0) Vancomycin Last Dose Date Vancomycin Last Dose Time White Blood Count 10.7 x10^3/uL (4.0-11.0) Red Blood Count 2.77 x10^6/uL (4.30-5.70) Hemoglobin 8.9 g/dL (13.0-17.5) Hematocrit 25.4 % (39.0-53.0) Mean Corpuscular Volume 92 fL (79-100) Mean Corpuscular Hemoglobin 32 pg (25-35) Mean Corpuscular Hemoglobin Concent 35 g/dL (31-37) Red Cell Distribution Width 16.0 % (11.5-14.5) Platelet Count 129 x10^3/uL (140-400) Sodium Level 138 mmol/L (136-145) Potassium Level 4.7 mmol/L (3.5-5.1) Chloride Level 108 mmol/L (98-107) Carbon Dioxide Level 22 mmol/L (21-32) Anion Gap 8 (6-14) Blood Urea Nitrogen 21 mg/dL (8-26) Creatinine 1.3 mg/dL (0.7-1.3) Estimated GFR (Cockcroft-Gault) 55.2 Glucose Level 221 mg/dL (70-99) Calcium Level 7.7 mg/dL (8.5-10.1) Test 01/16/20 07:55 01/16/20 08:15 O2 Saturation 97 % (92-99) Arterial Blood pH 7.32 (7.35-7.45) Arterial Blood pCO2 at Patient Temp 35 mmHg (35-46) Arterial Blood pO2 at Patient Temp 103 mmHg (65-108) Arterial Blood HCO3 17 mmol/L (21-28) Arterial Blood Base Excess -8 mmol/L (-3-3) FiO2 35 Glucose (Fingerstick) 276 mg/dL (70-99) Laboratory Tests Test 01/15/20 11:39 01/15/20 13:46 01/15/20 15:38 8/3/20 17:34 Glucose (Fingerstick) 70 mg/dL (70-99) 88 mg/dL (70-99) 124 mg/dL (70-99) 133 mg/dL (70-99) Test 01/15/20 22:29 01/15/20 22:30 01/16/20 05:00 01/16/20 07:55 Glucose (Fingerstick) 122 mg/dL (70-99) Vancomycin Level Trough 14.4 mcg/mL (10.0-20.0) Vancomycin Last Dose Date Vancomycin Last Dose Time White Blood Count 10.7 x10^3/uL (4.0-11.0) Red Blood Count 2.77 x10^6/uL (4.30-5.70) Hemoglobin 8.9 g/dL (13.0-17.5) Hematocrit 25.4 % (39.0-53.0) Mean Corpuscular Volume 92 fL (79-100) Mean Corpuscular Hemoglobin 32 pg (25-35) Mean Corpuscular Hemoglobin Concent 35 g/dL (31-37) Red Cell Distribution Width 16.0 % (11.5-14.5) Platelet Count 129 x10^3/uL (140-400) Sodium Level 138 mmol/L (136-145) Potassium Level 4.7 mmol/L (3.5-5.1) Chloride Level 108 mmol/L (98-107) Carbon Dioxide Level 22 mmol/L (21-32) Anion Gap 8 (6-14) Blood Urea Nitrogen 21 mg/dL (8-26) Creatinine 1.3 mg/dL (0.7-1.3) Estimated GFR (Cockcroft-Gault) 55.2 Glucose Level 221 mg/dL (70-99) Calcium Level 7.7 mg/dL (8.5-10.1) O2 Saturation 97 % (92-99) Arterial Blood pH 7.32 (7.35-7.45) Arterial Blood pCO2 at Patient Temp 35 mmHg (35-46) Arterial Blood pO2 at Patient Temp 103 mmHg (65-108) Arterial Blood HCO3 17 mmol/L (21-28) Arterial Blood Base Excess -8 mmol/L (-3-3) FiO2 35 Test 01/16/20 08:15 Glucose (Fingerstick) 276 mg/dL (70-99) Medications Active Scripts Medications Dose Route/Sig Max Daily Dose Days Date Category Aspirin 325 Mg Tablet 325 Mg PO DAILYWBKFT 30 09/11/19 Rx Atorvastatin Calcium 20 Mg Tablet 20 Mg PO QHS 30 09/11/19 Rx Trazodone Hcl 50 Mg Tablet 1 Tab PO QHS 09/10/19 Reported Celexa (Citalopram Hydrobromide) 10 Mg Tablet 1 Tab PO DAILY 09/10/19 Reported Lantus Solostar (Insulin Glargine,Hum.rec.anlog) 100 Unit/1 Ml Insuln.pen 65 Unit SQ QHS 09/10/19 Reported Gabapentin (Gabapentin) 300 Mg Capsule 300 Mg PO TID 07/28/19 Reported Nexium Capsule (Esomeprazole Magnesium) 20 Mg Capsule.dr 1 Cap PO DAILY 07/28/19 Reported Actos (Pioglitazone Hcl) 30 Mg Tablet 30 Mg PO DAILY 07/28/19 Reported Metformin Hcl 500 Mg Tablet 500 Mg PO BIDWMEALS 07/28/19 Reported Comments CXR 01/15/2020 Impression: 1. New platelike atelectasis of the left midlung. No other new findings. Impression . IMPRESSION: 1. Acute hypoxemic respiratory failure secondary to septic shock, source unknown, encephalopathy, suspected suicidal attempt with insulin, acute kidney injury, rule out non-ST elevation myocardial infarction versus others. 2. Abnormal chest x-ray. 3. Acute kidney injury--resolved 4. Septic shock. 5. Diabetes mellitus, hyperglycemic at the beginning, now hypoglycemic. 6. Abnormal chest x-ray. 7. Encephalopathy, metabolic. 8. Obstructive sleep apnea-hypopnea syndrome. 9. Chronic kidney disease. 10. History of cerebrovascular accident. 11. Lower extremity edema. Plan . PLAN AND RECOMMENDATIONS: Continue ventilator support 35% and PEEP 5, follow CXR and ABG, will plan for CPAP trial this afternoon COVID-19.- NEG Lower extremity venous Doppler-- NEG Follow nephrology recommendations Continue pressors to keep mean arterial pressure more than 65, -- off pressors at this time Continue antibiotic per ID Cont. TF for nutritional support DVT/GI PPX discussed with RN and RT, Critical Care time 30 minutes ALFONSO ALEXANDER MD Jan 16, 2020 10:29
--- NOTE | 2020-01-16 10:34 | PDOC ---
[facility]SE [facility] 01/16/20 1034: CARDIO Progress Notes Date and Time Date of Service 01/16/2020 Time of Evaluation 0850 Subjective Subjective: Other (intubated/sedated ) Vitals Vitals Vital Signs Date Time Temp Pulse Resp B/P (MAP) Pulse Ox O2 Delivery O2 Flow Rate FiO2 01/16/20 10:00 84 21 75/47 (56) 96 Ventilator 01/16/20 08:00 98.3 98.3 Weight Weight [ ] Input and Output Intake and Output Intake and Output 01/16/20 07:00 Intake Total 5158.44 ml Output Total 2360 ml Balance 2798.44 ml Intake IV Total 4090.44 ml Tube Feeding 468 ml Other 600 ml Output Urine Total 2360 ml Gastric Drainage Total 0 ml Laboratory Labs Laboratory Tests Test 01/15/20 11:39 01/15/20 13:46 01/15/20 15:38 01/15/20 17:34 Glucose (Fingerstick) 70 mg/dL (70-99) 88 mg/dL (70-99) 124 mg/dL (70-99) 133 mg/dL (70-99) Test 01/15/20 22:29 01/15/20 22:30 01/16/20 05:00 01/16/20 07:55 Glucose (Fingerstick) 122 mg/dL (70-99) Vancomycin Level Trough 14.4 mcg/mL (10.0-20.0) Vancomycin Last Dose Date Vancomycin Last Dose Time White Blood Count 10.7 x10^3/uL (4.0-11.0) Red Blood Count 2.77 x10^6/uL (4.30-5.70) Hemoglobin 8.9 g/dL (13.0-17.5) Hematocrit 25.4 % (39.0-53.0) Mean Corpuscular Volume 92 fL (79-100) Mean Corpuscular Hemoglobin 32 pg (25-35) Mean Corpuscular Hemoglobin Concent 35 g/dL (31-37) Red Cell Distribution Width 16.0 % (11.5-14.5) Platelet Count 129 x10^3/uL (140-400) Sodium Level 138 mmol/L (136-145) Potassium Level 4.7 mmol/L (3.5-5.1) Chloride Level 108 mmol/L (98-107) Carbon Dioxide Level 22 mmol/L (21-32) Anion Gap 8 (6-14) Blood Urea Nitrogen 21 mg/dL (8-26) Creatinine 1.3 mg/dL (0.7-1.3) Estimated GFR (Cockcroft-Gault) 55.2 Glucose Level 221 mg/dL (70-99) Calcium Level 7.7 mg/dL (8.5-10.1) O2 Saturation 97 % (92-99) Arterial Blood pH 7.32 (7.35-7.45) Arterial Blood pCO2 at Patient Temp 35 mmHg (35-46) Arterial Blood pO2 at Patient Temp 103 mmHg (65-108) Arterial Blood HCO3 17 mmol/L (21-28) Arterial Blood Base Excess -8 mmol/L (-3-3) FiO2 35 Test 01/16/20 08:15 Glucose (Fingerstick) 276 mg/dL (70-99) Microbiology Micro Microbiology 01/14/20 Blood Culture - Preliminary, Resulted NO GROWTH AFTER 2 DAYS Physical Exam HEENT: Neck Supple W Full Motion LUNGS: Other (mechanical vent ) Heart: RRR (SR with no significant ectopies) Abdomen: Other (obese) Extremities: Other (LBKA) Neurology: other (sedated) Assessment Assessment 1. Acute respiratory failure s/p intubation. COVID negative, pulmonary following 2. Leukocytosis, lactic acidosis 3. Septic shock 4. BRYCE on CKD 5. Mild troponin elevation; peal 0.135. Most probably type II, demand ischemia secondary to above. 6. DM2 with hypoglycemic episode 7. Metabolic encephalopathy: now off sedation 8. COPD, DAVID, morbid obesity 9. H/o CVA Recommendations 1. Levophed to titrate per BP trend 2. Ongoing antibiotic therapy 3. TTE 4. Supportive care Justicifation of Admission Dx: Justifications for Admission: Justification of Admission Dx: Yes Aspiration Pneumonia: Hemodynamic Instability Sepsis: Altered Mental Status Altered Mental Status: Altered Mental Status KENDALL SOLIS MD 01/16/20 1350: CARDIO Progress Notes Plan Plan Pt. seen and examined. Agree with above [employer] note. Supportive care. TTE today, consider outpt ischemic eval. Lower suspicion for CV source given improvement with fluids and abx. Thanks [facility] Jan 16, 2020 10:34 KENDALL SOLIS MD Jan 16, 2020 13:50
--- NOTE | 2020-01-16 10:38 | NUR ---
SS following up with discharge planning. SS reviewed pt chart and discussed with pt RN. Pt remains on the vent at this time. Pt had SI attempt at home. PAT team referral and psych consult made. Pt on IV Vancomycin and IV Zosyn. COVID19 negative. Pt had [facility] at home and [facility] stating that pt needs higher level of care. Possible inpatient psychiatric treatment needed. PAT team and psych will evaluate once extubated. SS will continue to follow for discharge planning.
[2020-01-16] MEDS ORDERED: ALBUMIN HUMAN 5% 250 ML IV ONE (11:15)
[2020-01-16] MEDS: VANCOMYCIN PER PHARMACY MC PRN ×2 (11:41→16:58)
--- NOTE | 2020-01-16 12:42 | PDOC ---
[facility] PROGRESS NOTE Date of Service DOS: DATE: 01/16/20 TIME: 12:38 Chief Complaint Chief Complaint Acute encephalopathy Fall, found down on kitchen floor. Hyperglycemia and hypoglycemia DM. HTN. HLD. Cancer. Morbid obesity. Left BKA. Acute hypoxemic respiratory failure secondary to septic shock, source unknown, encephalopathy, acute kidney injury, rule out non-ST elevation myocardial infarction versus others. Abnormal chest x-ray. Acute kidney injury - likely vasomotor nephropathy Shock. Obstructive sleep apnea-hypopnea syndrome. History of cerebrovascular accident. Lower extremity edema CC time 38 minutes History of Present Illness History of Present Illness Mr Soliz is a 65 yo M w/ PMHx diabetes type 2, depression, dyslipidemia, hypertension, CVA, PVD s/p left BKA who comes to the hospital due to being found unresponsive by his neighbor. Patient has had suicide attempts in the past. Th ere is possible concerns of empty pill bottles and insulin OD. History is obtained from ED physician charting and chart review. Unable to obtain history from patient as the patient is intubated. 01/14: ICU requiring high dose levophed and fluid boluses as well as vent. CXR reviewed with left middle platelike atelectasis. CT head did negative for acute findings. Afebrile. Hypoglycemic overnight started on D10 infusion. WBC 17 K Hb 10.40.8, glucose 80, mag 1.8, TSH 0.160. Afebrile overnight. Vent 35% and PEEP of 5, and off sedation today. Still on low-dose Levophed. Not waking up very well. Labs stable glucose in the 200s. Plan: We will wean. If plans for extubation will need one-to-one sitter for suicidal ideation history of suicide attempts. Vitals/I&O Vitals/I&O: Vital Signs Date Time Temp Pulse Resp B/P (MAP) Pulse Ox O2 Delivery O2 Flow Rate FiO2 01/16/20 11:42 99 Ventilator 01/16/20 11:00 80 21 82/47 (59) 01/16/20 08:00 98.3 98.3 I & O 01/15/20 01/15/20 01/16/20 15:00 23:00 07:00 Intake Total 1500 ml 1388.44 ml 2270 ml Output Total 935 ml 1050 ml 375 ml Balance 565 ml 338.44 ml 1895 ml Physical Exam General: No acute distress, Other (Sedated on vent) Heart: Regular rate Lungs: Clear Abdomen: Normal bowel sounds Skin: No rashes Labs Labs: Laboratory Tests Test 01/15/20 13:46 01/15/20 15:38 01/15/20 17:34 01/15/20 22:29 Glucose (Fingerstick) 88 mg/dL (70-99) 124 mg/dL (70-99) 133 mg/dL (70-99) 122 mg/dL (70-99) Test 01/15/20 22:30 01/16/20 05:00 01/16/20 07:55 01/16/20 08:15 Vancomycin Level Trough 14.4 mcg/mL (10.0-20.0) Vancomycin Last Dose Date Vancomycin Last Dose Time White Blood Count 10.7 x10^3/uL (4.0-11.0) Red Blood Count 2.77 x10^6/uL (4.30-5.70) Hemoglobin 8.9 g/dL (13.0-17.5) Hematocrit 25.4 % (39.0-53.0) Mean Corpuscular Volume 92 fL (79-100) Mean Corpuscular Hemoglobin 32 pg (25-35) Mean Corpuscular Hemoglobin Concent 35 g/dL (31-37) Red Cell Distribution Width 16.0 % (11.5-14.5) Platelet Count 129 x10^3/uL (140-400) Sodium Level 138 mmol/L (136-145) Potassium Level 4.7 mmol/L (3.5-5.1) Chloride Level 108 mmol/L (98-107) Carbon Dioxide Level 22 mmol/L (21-32) Anion Gap 8 (6-14) Blood Urea Nitrogen 21 mg/dL (8-26) Creatinine 1.3 mg/dL (0.7-1.3) Estimated GFR (Cockcroft-Gault) 55.2 Glucose Level 221 mg/dL (70-99) Calcium Level 7.7 mg/dL (8.5-10.1) O2 Saturation 97 % (92-99) Arterial Blood pH 7.32 (7.35-7.45) Arterial Blood pCO2 at Patient Temp 35 mmHg (35-46) Arterial Blood pO2 at Patient Temp 103 mmHg (65-108) Arterial Blood HCO3 17 mmol/L (21-28) Arterial Blood Base Excess -8 mmol/L (-3-3) FiO2 35 Glucose (Fingerstick) 276 mg/dL (70-99) Assessment and Plan Assessmemt and Plan Problems Medical Problems: (1) Acute renal insufficiency Status: Acute (2) Altered mental status Status: Acute (3) Aspiration pneumonia Status: Acute (4) Hyperglycemia Status: Acute (5) Hypomagnesemia Status: Acute (6) Septic shock Status: Acute Comment Review of Relevant I have reviewed the following items lauryn (where applicable) has been applied. Medications: Current Medications Medications (Trade) Dose Ordered Sig/Serenity Route PRN Reason Start Time Stop Time Status Last Admin Dose Admin Vancomycin HCl (Vancomycin Trough Level) 1 each 1X ONCE MC 01/15/20 22:30 01/15/20 22:31 DC 01/15/20 22:30 Piperacillin Sod/ Tazobactam Sod 4.5 gm/Sodium Chloride 100 ml @ 200 mls/hr Q6HRS IV 01/15/20 16:00 01/16/20 05:50 Aspirin (Ecotrin) 81 mg [id number] PO 01/16/20 08:00 01/16/20 08:05 Albumin Human 250 ml @ 62.5 mls/hr 1X ONCE IV 01/16/20 11:15 01/16/20 15:14 01/16/20 11:33 Justicifation of Admission Dx: Justifications for Admission: Justification of Admission Dx: Yes Aspiration Pneumonia: Hemodynamic Instability Sepsis: Altered Mental Status Altered Mental Status: Altered Mental Status SHERICE WILLIAMSON MD Jan 16, 2020 12:42
[2020-01-16] MEDS ORDERED: DEXTROSE 50% 25 GM / 50ML DISP.SYRIN. IV PRN (12:45)
[2020-01-16 13:58] LABS: BASE EXCESS ABG -9 mmol/L (-3-3); HCO3 ABG 17 mmol/L (21-28); PCO2 ABG 33 mmHg (35-46); PO2 ABG 96 mmHg (65-108); SAT O2 ABG 96 % (92-99)
[2020-01-16 14:01] LABS: FIO2 ABG 35
[2020-01-16] MEDS ORDERED: SODIUM BICARB ADULT 8.4% 50 MEQ/50 ML DISP.SYRIN. ONE (14:11)
[2020-01-16] MEDS ORDERED: SODIUM BICARB ADULT 8.4% 50 MEQ/50 ML DISP.SYRIN. IV ONE ×2 (14:15)
--- NOTE | 2020-01-16 14:47 | NUR ---
pt extubated at 1430. placed on 40% venti mask. tolerated well. pt made 1:1 status. RN at bedside
[2020-01-16] MEDS: IV NORMAL SALINE 1000ML BAG 1,000 ML IV SCH (15:52)
[2020-01-16] MEDS ORDERED: IV NORMAL SALINE 1000ML BAG 1,000 ML IV ONE (16:45)
[2020-01-16] MEDS ORDERED: HALOPERIDOL LACTATE 5 MG/ML VIAL. IVP ONE (18:00)
--- NOTE | 2020-01-16 18:50 | PDOC1 ---
History & Psych Evaluation Date of Service: DOS: DATE: 01/16/20 TIME: 18:27 Source: Source: Caregiver, Chart review, Patient Identification: Identification He is a 65-year-old male known to this creative writer from previous admission admitted with unresponsiveness found by his neighbor. History of Present Illness: HPI: He is a gentleman with multiple medical comorbidities and previous history of suicidal attempt brought in by his neighbor when he was found unresponsive by him. He has history of previous suicide attempt with same circumstances. At that point, he presumably took overdose of insulin. Patient was intubated, and extubated today. Upon interview, he is responsive but confused. Continue to ruminate that he wanted to talk to his neighbor. He appears paranoid, when asked about intentions of overdose to take his life, he appears little bit upset and telling that he has the right to know who said it was an intentional overdose. He categorically denies that it was something int entional. He is portraying it as an accidental overdose. Denies divert depression and anxiety. Skeptical why he is labeled as a suicide attempt. Denies any intent or plan. He is upset that why is everyone judgmental however he is told that no one is judging him. Questions were being asked only for safety concern. Patient wanting to talk to his neighbor and asking creative writer to sindy l contact his neighbor right away. He is restless, argumentative, and verbally agitated. Also wanting to talk to his . Due to patient's confusion, limited insight, he is not communicating effectively. Reviewed H&P by this creative writer from previous admission and read as: He is a pleasant gentleman admitted with intentional overdose on his prescribed insulin found unresponsive due to severe hypoglycemia. Reportedly, he overdosed with intentions to take his life. Reportedly, 2 weeks ago his 34-year- old daughter committed suicide by overdose. Upon interview he appears cooperative and interactive. States, 2 weeks ago his daughter who was living with him committed suicide by overdose. States, he found his daughter pulseless and cold. States, due to the stress of her and grief he was not processing and right direction. States, he was in deep grief and sad. States, his whom he for 39 years as hospitalized as well for hip replacement. However, he appears insightful, cognizant of the fact that "I made a stupid mistake which I shouldn't, and I apologize". States, he is adi in God and would like to do anything in future to harm her . , when he spoke to his and told her that he was hospitalized for intentional overdose, she got very upset and scared. He is, he knows that "my doctors are in having and God will take care of it". He denies depression and treatment of depression. Chart review, indicates history of depression and reported medications citalopram 40 mg daily. When asked from patient, he couldn't recall diagnoses of depression or citalopram. States, he has learned his lesson. He denies hopelessness, insomnia, extremely sad mood, worthlessness, or loss of interest. He denies suicidal or homicidal thoughts intent or plan. He denies previous suicidal attempt or history of recurrent suicidal ideation, except for the last few days prior to attempts. He denies history of overt depression or anxiety, illicit substance use, bipolar mood disorder, psychosis, or PTSD. , is 24 years old daughter was with interstitial lung disease in 2004. Denies nightmares, flashbacks or chronic bereavement. He denies access to firearms. Past Psychiatric History: Previously denies past psychiatric history of mental health illness, suicidality, or illicit substance use. Chart review indicates depression, and citalopram 40 mg not verified by the patient. Family History: Family history is positive for depression and suicide by biological daughter. Social History: Social History: for 39 years, is in [facility] for depressed placement. He had 2 daughters. Worked in [employer]. He is retired. No legal issues. Current Medications: Current Medications Current Medications Medications (Trade) Dose Ordered Sig/Serenity Start Time Stop Time Status Last Admin Dose Admin Albumin Human 250 ml @ 62.5 mls/hr 1X ONCE 01/16/20 11:15 01/16/20 15:14 DC 01/16/20 11:33 62.5 MLS/HR Aspirin (Omkar Aspirin) 325 mg [id number] 01/17/20 08:00 Aspirin (Ecotrin) 81 mg [id number] 01/16/20 08:00 01/16/20 08:05 81 MG Atorvastatin Calcium (Lipitor) 20 mg QHS 01/16/20 21:00 01/16/20 12:45 DC Chlorhexidine Gluconate (Peridex) 15 ml BID 01/13/20 21:00 01/16/20 08:59 15 ML Dextrose (Dextrose 50%-Water Syringe) 12.5 gm PRN Q15MIN PRN 01/16/20 12:45 Enoxaparin Sodium (Lovenox 40mg Syringe) 40 mg QHS 01/14/20 02:15 01/15/20 21:06 40 MG Enoxaparin Sodium (Lovenox Per Pharmacy Prophylaxis Dosing) 1 each PRN DAILY PRN 01/14/20 02:00 Etomidate (Amidate) 20 mg 1X ONCE 01/13/20 19:00 01/13/20 19:25 DC 01/13/20 19:52 20 MG Fentanyl Citrate 30 ml @ 0 mls/hr CONT PRN 01/14/20 16:00 01/16/20 09:12 2.5 MLS/HR Fentanyl Citrate (Fentanyl 2ml Vial) 50 mcg PRN Q1HR PRN 01/13/20 18:45 01/16/20 17:12 50 MCG Glucagon (Glucagen) 1 mg PRN Q15MIN PRN 01/14/20 09:30 01/15/20 04:12 1 MG Haloperidol Lactate (Haldol Inj) 5 mg 1X ONCE 01/16/20 18:00 01/16/20 18:01 DC 01/16/20 18:00 5 MG Insulin Glargine (Lantus Syringe) 20 unit QHS 01/16/20 21:00 Insulin Human Lispro (HumaLOG) 0-7 UNITS TIDWMEALS 01/16/20 17:00 01/16/20 13:49 7 UNITS Insulin Human Regular (HumuLIN R VIAL) 12 unit 1X ONCE 01/13/20 19:45 01/13/20 19:46 DC 01/13/20 19:45 12 UNIT Levofloxacin/ Dextrose 150 ml @ 100 mls/hr 1X ONCE 01/13/20 21:00 01/13/20 22:29 DC 01/13/20 21:05 100 MLS/HR Magnesium Sulfate 50 ml @ 25 mls/hr 1X ONCE 01/13/20 19:45 01/13/20 21:44 DC 01/14/20 01:11 25 MLS/HR Midazolam HCl 100 ml @ 0 mls/hr CONT PRN 01/13/20 22:15 01/16/20 08:45 5 MLS/HR Midazolam HCl (Versed) 5 mg PRN Q1HR PRN 01/13/20 18:45 01/13/20 19:53 5 MG Naloxone HCl (Narcan) 0.4 mg PRN Q2MIN PRN 01/14/20 16:00 Norepinephrine Bitartrate 32 mg/ Dextrose 250 ml @ 5.484 mls/ hr CONT PRN 01/14/20 07:45 01/16/20 00:29 9.872 MLS/HR Norepinephrine Bitartrate 8 mg/ Dextrose 258 ml @ 22.678 mls/ hr CONT PRN 01/14/20 02:45 01/14/20 09:00 DC 01/14/20 02:42 32.9 MLS/HR Ondansetron HCl (Zofran) 4 mg PRN Q8HRS PRN 01/13/20 20:45 01/14/20 20:44 DC Pantoprazole Sodium (PROTONIX VIAL for IV PUSH) 40 mg DAILYAC 01/14/20 13:00 01/16/20 08:05 40 MG Piperacillin Sod/ Tazobactam Sod 4.5 gm/Sodium Chloride 100 ml @ 200 mls/hr Q6HRS 01/15/20 16:00 01/16/20 17:35 200 MLS/HR Potassium Chloride 20 meq/ Dextrose/Sodium Chloride 1,010 ml @ 85 mls/hr [id number] 01/14/20 02:00 UNV Potassium Chloride/Dextrose/ Sod Cl 1,000 ml @ 85 mls/hr [id number] 01/14/20 02:15 01/14/20 21:20 DC 01/14/20 14:19 85 MLS/HR Potassium Chloride/Water 100 ml @ 100 mls/hr Q1H 01/14/20 11:00 01/14/20 14:59 DC 01/14/20 14:19 100 MLS/HR Rocuronium Imbler (Zemuron) 50 mg 1X ONCE 01/13/20 19:00 01/13/20 19:25 DC 01/13/20 19:52 50 MG Sodium Bicarbonate (Sodium Bicarb Adult 8.4% Syr) 50 meq STK-MED ONCE 01/16/20 14:11 01/16/20 14:12 DC Sodium Chloride 1,000 ml @ 75 mls/hr 1X ONCE 01/16/20 16:45 01/17/20 06:04 01/16/20 17:07 75 MLS/HR Vancomycin HCl (Vanco Per Pharmacy) 1 each PRN DAILY PRN 01/13/20 19:45 01/16/20 16:58 1 EACH Vancomycin HCl (Vancomycin Trough Level) 1 each 1X ONCE 01/16/20 22:30 01/16/20 22:31 Vancomycin HCl 1.75 gm/Sodium Chloride 500 ml @ 250 mls/hr Q18H 01/14/20 17:00 Cancel Vancomycin HCl 2 gm/Sodium Chloride 500 ml @ 250 mls/hr Q24H 01/14/20 23:00 01/15/20 23:20 250 MLS/HR Vasopressin 20 unit/Dextrose 101 ml @ 12 mls/hr CONT PRN 01/14/20 09:45 Allergies: Allergies: Coded Allergies: morphine (Verified Allergy, Intermediate, 02/19/17) causes hallucinations I S O L A T I O N *CONTACT* (Verified Allergy, Unknown, 05/10/17) mrsa Mental Status Examination: Mental Status Examination Obese gentleman, appears as a stated age Confused and not very cooperative Disoriented Thought processes concrete Denies auditory or visual hallucinations. Denies suicidal or homicidal thoughts Mood is dysphoric Affect is dysthymic Insight is limited Judgment is limited Impulse control is poor Attention span and concentration impaired Recent and remote memory impaired ROS: 14 point review of system is otherwise negative except for stated in H&P. Physical Exam: Refer to Physician's note. WINCH STRIPPER: No focal deficit MSK: No EPS, TDK, or abnormal involuntary movements Vitals: Vitals Vital Signs Date Time Temp Pulse Resp B/P (MAP) Pulse Ox O2 Delivery O2 Flow Rate FiO2 01/16/20 17:42 23 99 Venturi Mask 12.0 01/16/20 17:00 94 95/53 (67) 01/16/20 16:00 97.6 97.6 Labs: Labs Laboratory Tests Test 01/14/20 18:35 01/14/20 19:49 01/14/20 20:57 01/14/20 21:11 Glucose (Fingerstick) 91 mg/dL (70-99) 72 mg/dL (70-99) 49 mg/dL (70-99) 122 mg/dL (70-99) Test 01/14/20 22:23 01/14/20 23:45 01/15/20 00:32 01/15/20 00:45 Glucose (Fingerstick) 73 mg/dL (70-99) 72 mg/dL (70-99) 63 mg/dL (70-99) 109 mg/dL (70-99) Test 01/15/20 02:02 01/15/20 03:56 01/15/20 04:32 01/15/20 05:45 Glucose (Fingerstick) 74 mg/dL (70-99) 60 mg/dL (70-99) 80 mg/dL (70-99) 81 mg/dL (70-99) Test 01/15/20 05:50 01/15/20 07:55 01/15/20 08:15 01/15/20 08:17 Sodium Level 139 mmol/L (136-145) Potassium Level 4.4 mmol/L (3.5-5.1) Chloride Level 107 mmol/L (98-107) Carbon Dioxide Level 24 mmol/L (21-32) Anion Gap 8 (6-14) Blood Urea Nitrogen 24 mg/dL (8-26) Creatinine 1.8 mg/dL (0.7-1.3) Estimated GFR (Cockcroft-Gault) 37.9 Glucose Level 80 mg/dL (70-99) Calcium Level 8.2 mg/dL (8.5-10.1) Magnesium Level 1.8 mg/dL (1.8-2.4) Triglycerides Level 154 mg/dL (0-150) Cholesterol Level 117 mg/dL (0-200) LDL Cholesterol, Calculated 51 mg/dL (0-100) VLDL Cholesterol, Calculated 31 mg/dL (0-40) Non-HDL Cholesterol Calculated 82 mg/dL (0-129) HDL Cholesterol 35 mg/dL (40-60) Cholesterol/HDL Ratio 3.3 Vitamin B12 Level 961 pg/mL (247-911) Thyroid Stimulating Hormone (TSH) 0.160 uIU/mL (0.358-3.74) O2 Saturation 97 % (92-99) Arterial Blood pH 7.35 (7.35-7.45) Arterial Blood pCO2 at Patient Temp 32 mmHg (35-46) Arterial Blood pO2 at Patient Temp 95 mmHg (65-108) Arterial Blood HCO3 17 mmol/L (21-28) Arterial Blood Base Excess -7 mmol/L (-3-3) FiO2 40% White Blood Count 17.0 x10^3/uL (4.0-11.0) Red Blood Count 3.36 x10^6/uL (4.30-5.70) Hemoglobin 10.4 g/dL (13.0-17.5) Hematocrit 30.7 % (39.0-53.0) Mean Corpuscular Volume 91 fL (79-100) Mean Corpuscular Hemoglobin 31 pg (25-35) Mean Corpuscular Hemoglobin Concent 34 g/dL (31-37) Red Cell Distribution Width 15.3 % (11.5-14.5) Platelet Count 190 x10^3/uL (140-400) Neutrophils (%) (Auto) 70 % (31-73) Lymphocytes (%) (Auto) 19 % (24-48) Monocytes (%) (Auto) 11 % (0-9) Eosinophils (%) (Auto) 0 % (0-3) Basophils (%) (Auto) 0 % (0-3) Neutrophils # (Auto) 11.8 x10^3/uL (1.8-7.7) Lymphocytes # (Auto) 3.2 x10^3/uL (1.0-4.8) Monocytes # (Auto) 1.9 x10^3/uL (0.0-1.1) Eosinophils # (Auto) 0.0 x10^3/uL (0.0-0.7) Basophils # (Auto) 0.0 x10^3/uL (0.0-0.2) Segmented Neutrophils % 64 % (35-66) Band Neutrophils % 4 % (0-9) Lymphocytes % 22 % (24-48) Atypical Lymphocytes % (Manual) 1 % (0-0) Monocytes % 8 % (0-10) Eosinophils % 1 % (0-5) Platelet Estimate Adequate (ADEQUATE) Polychromasia Slight Glucose (Fingerstick) 81 mg/dL (70-99) Test 01/15/20 10:01 01/15/20 11:39 01/15/20 13:46 01/15/20 15:38 Glucose (Fingerstick) 73 mg/dL (70-99) 70 mg/dL (70-99) 88 mg/dL (70-99) 124 mg/dL (70-99) Test 01/15/20 17:34 01/15/20 22:29 01/15/20 22:30 01/16/20 05:00 Glucose (Fingerstick) 133 mg/dL (70-99) 122 mg/dL (70-99) Vancomycin Level Trough 14.4 mcg/mL (10.0-20.0) Vancomycin Last Dose Date Vancomycin Last Dose Time White Blood Count 10.7 x10^3/uL (4.0-11.0) Red Blood Count 2.77 x10^6/uL (4.30-5.70) Hemoglobin 8.9 g/dL (13.0-17.5) Hematocrit 25.4 % (39.0-53.0) Mean Corpuscular Volume 92 fL (79-100) Mean Corpuscular Hemoglobin 32 pg (25-35) Mean Corpuscular Hemoglobin Concent 35 g/dL (31-37) Red Cell Distribution Width 16.0 % (11.5-14.5) Platelet Count 129 x10^3/uL (140-400) Sodium Level 138 mmol/L (136-145) Potassium Level 4.7 mmol/L (3.5-5.1) Chloride Level 108 mmol/L (98-107) Carbon Dioxide Level 22 mmol/L (21-32) Anion Gap 8 (6-14) Blood Urea Nitrogen 21 mg/dL (8-26) Creatinine 1.3 mg/dL (0.7-1.3) Estimated GFR (Cockcroft-Gault) 55.2 Glucose Level 221 mg/dL (70-99) Calcium Level 7.7 mg/dL (8.5-10.1) Test 01/16/20 07:55 01/16/20 08:15 01/16/20 13:40 01/16/20 13:50 O2 Saturation 97 % (92-99) 96 % (92-99) Arterial Blood pH 7.32 (7.35-7.45) 7.32 (7.35-7.45) Arterial Blood pCO2 at Patient Temp 35 mmHg (35-46) 33 mmHg (35-46) Arterial Blood pO2 at Patient Temp 103 mmHg (65-108) 96 mmHg (65-108) Arterial Blood HCO3 17 mmol/L (21-28) 17 mmol/L (21-28) Arterial Blood Base Excess -8 mmol/L (-3-3) -9 mmol/L (-3-3) FiO2 35 35 Glucose (Fingerstick) 276 mg/dL (70-99) 338 mg/dL (70-99) Test 01/16/20 17:30 Glucose (Fingerstick) 287 mg/dL (70-99) Laboratory Tests Test 01/15/20 22:29 01/15/20 22:30 01/16/20 05:00 01/16/20 07:55 Glucose (Fingerstick) 122 mg/dL (70-99) Vancomycin Level Trough 14.4 mcg/mL (10.0-20.0) Vancomycin Last Dose Date Vancomycin Last Dose Time White Blood Count 10.7 x10^3/uL (4.0-11.0) Red Blood Count 2.77 x10^6/uL (4.30-5.70) Hemoglobin 8.9 g/dL (13.0-17.5) Hematocrit 25.4 % (39.0-53.0) Mean Corpuscular Volume 92 fL (79-100) Mean Corpuscular Hemoglobin 32 pg (25-35) Mean Corpuscular Hemoglobin Concent 35 g/dL (31-37) Red Cell Distribution Width 16.0 % (11.5-14.5) Platelet Count 129 x10^3/uL (140-400) Sodium Level 138 mmol/L (136-145) Potassium Level 4.7 mmol/L (3.5-5.1) Chloride Level 108 mmol/L (98-107) Carbon Dioxide Level 22 mmol/L (21-32) Anion Gap 8 (6-14) Blood Urea Nitrogen 21 mg/dL (8-26) Creatinine 1.3 mg/dL (0.7-1.3) Estimated GFR (Cockcroft-Gault) 55.2 Glucose Level 221 mg/dL (70-99) Calcium Level 7.7 mg/dL (8.5-10.1) O2 Saturation 97 % (92-99) Arterial Blood pH 7.32 (7.35-7.45) Arterial Blood pCO2 at Patient Temp 35 mmHg (35-46) Arterial Blood pO2 at Patient Temp 103 mmHg (65-108) Arterial Blood HCO3 17 mmol/L (21-28) Arterial Blood Base Excess -8 mmol/L (-3-3) FiO2 35 Test 01/16/20 08:15 01/16/20 13:40 01/16/20 13:50 01/16/20 17:30 Glucose (Fingerstick) 276 mg/dL (70-99) 338 mg/dL (70-99) 287 mg/dL (70-99) O2 Saturation 96 % (92-99) Arterial Blood pH 7.32 (7.35-7.45) Arterial Blood pCO2 at Patient Temp 33 mmHg (35-46) Arterial Blood pO2 at Patient Temp 96 mmHg (65-108) Arterial Blood HCO3 17 mmol/L (21-28) Arterial Blood Base Excess -9 mmol/L (-3-3) FiO2 35 Diagnosis: Diagnosis: #1 acute delirium, multifactorial, mixed hyperactive and hypoactive 2. Presumably a suicidal attempt by intentional overdose 3. Major depressive disorder, recurrent, severe Assessment: He is a gentleman with previous history of intentional overdose readmitted with same circumstances of intentional overdose and found unresponsive by his neighbor. Apparently, he is trying to downplay with the severity of the situation and using his defenses. However, circumstances led to admission and history are consistent with of suicidal attempt in context of his ongoing depression, multiple medical health problems, and recent of his daughter by suicide overdose. Agitation, and confusion will give him temporary antipsychotics to calm him down. Antipsychotic will also help in resolution of delirium. Will obtain collateral information as well. Plan: #1 start Haldol 5 mg at bedtime for agitation and confusion. #2 Haldol 5 mg every 6 hourly as needed for agitation and psychosis. 3. Risks, benefits, alternatives of the treatment are discussed. 4. Avoid sedatives and hypnotics. Use only in case of severe agitation. 5. Monitor closely for symptomatology, safety, and agitation. Will adjust medications accordingly. 6. Applied delirium protocol. Keep bright sunlight during the day in room. Thank you for involving inpatient care DELONTE STARK MD Jan 16, 2020 18:50
[2020-01-16] MEDS: ENOXAPARIN 40 MG/0.4 ML SYRINGE. SQ SCH (20:32)
[2020-01-16] MEDS: INSULIN GLARGINE SYRINGE. SQ SCH (20:33)
[2020-01-16] MEDS ORDERED: ATORVASTATIN CALCIUM 20 MG TABLET PO SCH (21:00)
[2020-01-16 22:26] LABS: VANC TR 15.1 mcg/mL (10.0-20.0)
[2020-01-16] MEDS: VANCOMYCIN 2 GM in IV NORMAL SALINE 500ML BAG 500 ML IV SCH (22:55)
[2020-01-17] VITALS (14 sets, daily range): BP systolic 95–132; BP diastolic 9–76
[2020-01-17] MEDS: HALOPERIDOL LACTATE 5 MG/ML VIAL. IVP PRN ×2 (00:33→06:13)
[2020-01-17] MEDS: VANCOMYCIN PER PHARMACY MC PRN ×2 (05:27→09:49)
--- NOTE | 2020-01-17 05:27 | NUR ---
Pharmacy Vancomycin Dosing Note S:Consulted to monitor and dose vancomycin started 01/13/20. O:RED MOMIN is a 65 year old M with Sepsis Pneumonia . Height: 5 feet, 11 inches Weight: 134.915818 kg [place] Body Weight: 75.30 Adjusted Body Weight: 98.86 Dosing Weight: Actual Other Antibiotics: LABS: Last BUN: 21 Last Creatinine: 1.3 Creatinine Clearance: 78 mL/min Last WBC: 10.7 Last Procalcitonin: <0.10 Tmax (past 24 hours): 99.7 Microbiology: I/O: [id number] Drug Levels: Last Trough level: 15.1 on 01/16/20 at 2230 Last dose given 01/14/20 at 2342 Vancomycin Dosing: Loading Dose: 2000 mg x1 Dosing Weight: Actual Target Trough: 15-20 A: Based on: TROUGH P: 1. Continue Vancomycin 2000 mg IV q24h 2. Follow up Trough level on IF NEEDED 3. Pharmacy will continue to monitor, follow and adjust therapy as needed. CHANDNI JURADO RPH, 01/17/20 0527 Signed: 01/17/20 at 05 by CHANDNI JURADO RPH PHA
[2020-01-17 05:37] LABS: ALBUMIN 2.1 g/dL (3.4-5.0); CALCIUM 7.7 mg/dL (8.5-10.1); CREATININE 1.3 mg/dL (0.7-1.3); GFR 55.2; PHOSPHORUS 2.1 mg/dL (2.6-4.7); POTASSIUM 3.8 mmol/L (3.5-5.1)
--- NOTE | 2020-01-17 05:44 | NUR ---
Starting around 0400 patient became very belligerent and was yelling at staff and trying to get out of bed. He kept repeating "give me my phone so I can call my reinforcing iron worker helper" and was informed that it is hospital policy that he cannot have his belongings. He said we were "torturing" and "holding him hostage". Patient was asked to turn onto his side so we could change his sheets and patient stated no so RN turned patient onto his side and sheets were changed. Patient then stated that RN and CATERING AND EVENTS MANAGER were "harmful" and that he was going to report us to his reinforcing iron worker helper. RN told patient that it was not harmful for us to turn him to change his sheets and that is was helpful, but that taking too many medications to try to hurt yourself is harmful. Patient stated "So what? I tried to kill myself, but that was my choice". Patient was asked why he took all those medications and patient stated "no comment because this is an insane asylum and I want to talk to my reinforcing iron worker helper". Patient has stated multiple times throughout the night that he tried to harm/kill himself by taking medications. Patient is very uncooperative and rude to staff. He claims that today he is going to sign himself out AMA because that is his right. Patient informed that he is not able to sign himself out at this time R/T hospital policy and suicide attempt/ideation. Patient continues to be belligerent and talk about his reinforcing iron worker helper/suing the hospital, and continues to be uncooperative with staff. Sitter present in room to continuously redirect patient, mitts placed on patient for protection since patient was pulling at catheter, cords, and central line. Will continue to monitor.
[2020-01-17] MEDS: PIPERACILLIN/TAZOBACTAM 4.5 GM in IV NORMAL SALINE 100ML 100 ML IV SCH ×3 (05:56→17:51)
[2020-01-17] MEDS: PANTOPRAZOLE IV PUSH 40 MG VIAL. IVP SCH (07:24)
[2020-01-17] MEDS: INSULIN LISPRO 300 UNITS/3 ML VIAL. SQ SCH ×3 (07:25→17:51)
[2020-01-17] MEDS ORDERED: ASPIRIN 325 MG TABLET PO SCH (08:00)
--- NOTE | 2020-01-17 09:12 | PDOC ---
DATE OF SERVICE DATE: 01/17/20 TIME: 09:10 SUBJECTIVE ROS Extubated OBJECTIVE Vital Signs Vital Signs Date Time Temp Pulse Resp B/P (MAP) Pulse Ox O2 Delivery O2 Flow Rate FiO2 01/17/20 08:00 92 16 106/9 (41) 100 Room Air 01/17/20 08:00 2.0 01/17/20 07:00 97.6 97.6 I & 0 Intake and Output 01/17/20 07:00 Intake Total 2475.8 ml Output Total 1670 ml Balance 805.8 ml Intake Oral 0 ml IV Total 1814.8 ml Tube Feeding 261 ml Other 400 ml Output Urine Total 1670 ml Gastric Drainage Total 0 ml PHYSICAL EXAM Physical Exam GEN: Extubated, NAD HEENT: IOM moist NECK: Supple LUNGS: Clear to auscultation ant HEART: RRR, S!, S2 present. ABDOMEN: Soft, nontender. EXTREMITIES: No clubbing, cyanosis, or edema. Left below knee amputation NEUROLOGIC: grossly normal SKIN: No rash Brooks + DIAGNOSIS/ASSESSMENT Assessment & Plan [facility] - ATN Renal function improved close to baseline , stable , UOP good E-lytes stable , UA unremarkable , Supportive care , strict I/O, Avoid nephrotoxins CKD stage 2- Baseline Cr probably 1.2 with [facility] in 2017 Anemia- per primary Acute hypoxemic respiratory failure secondary to septic shock, source unknown CoVid 19 negative Encephalopathy- suspected suicidal attempt with insulin Abnormal chest x-ray Septic Shock Diabetes mellitus History of cerebrovascular accident. Lower extremity edema. COMMENT/RELEVANT DATA Meds Current Medications Medications (Trade) Dose Ordered Sig/Serenity Start Time Stop Time Status Last Admin Dose Admin Albumin Human 250 ml @ 62.5 mls/hr 1X ONCE 01/16/20 11:15 01/16/20 15:14 DC 01/16/20 11:33 62.5 MLS/HR Aspirin (Omkar Aspirin) 325 mg DAILYWBKFT 01/17/20 08:00 Aspirin (Ecotrin) 81 mg DAILYWBKFT 01/16/20 08:00 01/16/20 08:05 81 MG Atorvastatin Calcium (Lipitor) 20 mg QHS 01/16/20 21:00 01/16/20 12:45 DC Chlorhexidine Gluconate (Peridex) 15 ml BID 01/13/20 21:00 01/16/20 19:23 DC 01/16/20 08:59 15 ML Dextrose (Dextrose 50%-Water Syringe) 12.5 gm PRN Q15MIN PRN 01/16/20 12:45 Enoxaparin Sodium (Lovenox 40mg Syringe) 40 mg QHS 01/14/20 02:15 01/16/20 20:32 40 MG Enoxaparin Sodium (Lovenox Per Pharmacy Prophylaxis Dosing) 1 each PRN DAILY PRN 01/14/20 02:00 Etomidate (Amidate) 20 mg 1X ONCE 01/13/20 19:00 01/13/20 19:25 DC 01/13/20 19:52 20 MG Fentanyl Citrate 30 ml @ 0 mls/hr CONT PRN 01/14/20 16:00 01/16/20 09:12 2.5 MLS/HR Fentanyl Citrate (Fentanyl 2ml Vial) 50 mcg PRN Q1HR PRN 01/13/20 18:45 01/16/20 19:23 DC 01/16/20 17:12 50 MCG Glucagon (Glucagen) 1 mg PRN Q15MIN PRN 01/14/20 09:30 01/15/20 04:12 1 MG Haloperidol Lactate (Haldol Inj) 5 mg 1X ONCE 01/16/20 18:00 01/16/20 18:01 DC 01/16/20 18:00 5 MG Insulin Glargine (Lantus Syringe) 20 unit QHS 01/16/20 21:00 01/16/20 20:33 20 UNIT Insulin Human Lispro (HumaLOG) 0-7 UNITS TIDWMEALS 01/16/20 17:00 01/17/20 07:25 2 UNITS Insulin Human Regular (HumuLIN R VIAL) 12 unit 1X ONCE 01/13/20 19:45 01/13/20 19:46 DC 01/13/20 19:45 12 UNIT Levofloxacin/ Dextrose 150 ml @ 100 mls/hr 1X ONCE 01/13/20 21:00 01/13/20 22:29 DC 01/13/20 21:05 100 MLS/HR Magnesium Sulfate 50 ml @ 25 mls/hr 1X ONCE 01/13/20 19:45 01/13/20 21:44 DC 01/14/20 01:11 25 MLS/HR Midazolam HCl 100 ml @ 0 mls/hr CONT PRN 01/13/20 22:15 01/16/20 08:45 5 MLS/HR Midazolam HCl (Versed) 5 mg PRN Q1HR PRN 01/13/20 18:45 01/17/20 09:00 DC 01/13/20 19:53 5 MG Naloxone HCl (Narcan) 0.4 mg PRN Q2MIN PRN 01/14/20 16:00 Norepinephrine Bitartrate 32 mg/ Dextrose 250 ml @ 5.484 mls/ hr CONT PRN 01/14/20 07:45 01/16/20 00:29 9.872 MLS/HR Norepinephrine Bitartrate 8 mg/ Dextrose 258 ml @ 22.678 mls/ hr CONT PRN 01/14/20 02:45 01/14/20 09:00 DC 01/14/20 02:42 32.9 MLS/HR Ondansetron HCl (Zofran) 4 mg PRN Q8HRS PRN 01/13/20 20:45 01/14/20 20:44 DC Pantoprazole Sodium (PROTONIX VIAL for IV PUSH) 40 mg DAILYAC 01/14/20 13:00 01/17/20 07:24 40 MG Piperacillin Sod/ Tazobactam Sod 4.5 gm/Sodium Chloride 100 ml @ 200 mls/hr Q6HRS 01/15/20 16:00 01/17/20 05:56 200 MLS/HR Potassium Chloride 20 meq/ Dextrose/Sodium Chloride 1,010 ml @ 85 mls/hr [id number] 01/14/20 02:00 UNV Potassium Chloride/Dextrose/ Sod Cl 1,000 ml @ 85 mls/hr [id number] 01/14/20 02:15 01/14/20 21:20 DC 01/14/20 14:19 85 MLS/HR Potassium Chloride/Water 100 ml @ 100 mls/hr Q1H 01/14/20 11:00 01/14/20 14:59 DC 01/14/20 14:19 100 MLS/HR Rocuronium [place] (Zemuron) 50 mg 1X ONCE 01/13/20 19:00 01/13/20 19:25 DC 01/13/20 19:52 50 MG Sodium Bicarbonate (Sodium Bicarb Adult 8.4% Syr) 50 meq STK-MED ONCE 01/16/20 14:11 01/16/20 14:12 DC Sodium Chloride 1,000 ml @ 75 mls/hr 1X ONCE 01/16/20 16:45 01/17/20 06:04 DC 01/16/20 17:07 75 MLS/HR Vancomycin HCl (Vanco Per Pharmacy) 1 each PRN DAILY PRN 01/13/20 19:45 01/17/20 05:27 1 EACH Vancomycin HCl (Vancomycin Trough Level) 1 each 1X ONCE 01/16/20 22:30 01/16/20 22:31 DC 01/16/20 22:30 1 EACH Vancomycin HCl 1.75 gm/Sodium Chloride 500 ml @ 250 mls/hr Q18H 01/14/20 17:00 Cancel Vancomycin HCl 2 gm/Sodium Chloride 500 ml @ 250 mls/hr Q24H 01/14/20 23:00 01/16/20 22:55 250 MLS/HR Vasopressin 20 unit/Dextrose 101 ml @ 12 mls/hr CONT PRN 01/14/20 09:45 Lab Laboratory Tests Test 01/16/20 13:40 01/16/20 13:50 01/16/20 17:30 01/16/20 20:35 Glucose (Fingerstick) 338 mg/dL (70-99) 287 mg/dL (70-99) 255 mg/dL (70-99) O2 Saturation 96 % (92-99) Arterial Blood pH 7.32 (7.35-7.45) Arterial Blood pCO2 at Patient Temp 33 mmHg (35-46) Arterial Blood pO2 at Patient Temp 96 mmHg (65-108) Arterial Blood HCO3 17 mmol/L (21-28) Arterial Blood Base Excess -9 mmol/L (-3-3) FiO2 35 Test 01/16/20 22:05 01/17/20 05:00 Vancomycin Level Trough 15.1 mcg/mL (10.0-20.0) Vancomycin Last Dose Date 01/15/2020 Vancomycin Last Dose Time 2300 Sodium Level 142 mmol/L (136-145) Potassium Level 3.8 mmol/L (3.5-5.1) Chloride Level 110 mmol/L (98-107) Carbon Dioxide Level 25 mmol/L (21-32) Anion Gap 7 (6-14) Blood Urea Nitrogen 21 mg/dL (8-26) Creatinine 1.3 mg/dL (0.7-1.3) Estimated GFR (Cockcroft-Gault) 55.2 Glucose Level 219 mg/dL (70-99) Calcium Level 7.7 mg/dL (8.5-10.1) Phosphorus Level 2.1 mg/dL (2.6-4.7) Albumin 2.1 g/dL (3.4-5.0) Results All relevant outside records, renal labs, imaging studies, telemetry/EKG's were reviewed. Justicifation of Admission Dx: Justifications for Admission: Justification of Admission Dx: Yes Aspiration Pneumonia: Hemodynamic Instability Sepsis: Altered Mental Status Altered Mental Status: Altered Mental Status SVITLANA FELIZ MD Jan 17, 2020 09:12
--- NOTE | 2020-01-17 09:26 | PDOC ---
[employer] PROGRESS NOTE Date of Service DOS: DATE: 01/17/20 TIME: 09:23 Chief Complaint Chief Complaint Acute encephalopathy Suicide attempt Fall, found down on kitchen floor. Hyperglycemia and hypoglycemia DM. HTN. HLD. Cancer. Morbid obesity. Left BKA. Acute hypoxemic respiratory failure secondary to septic shock, source unknown, encephalopathy, acute kidney injury, rule out non-ST elevation myocardial infarction versus others. Abnormal chest x-ray. Acute kidney injury - likely vasomotor nephropathy Shock. Obstructive sleep apnea-hypopnea syndrome. History of cerebrovascular accident. Lower extremity edema CC time 38 minutes History of Present Illness History of Present Illness Mr Soliz is a 65 yo M w/ PMHx diabetes type 2, depression, dyslipidemia, hypertension, CVA, PVD s/p left BKA who comes to the hospital due to being found unresponsive by his neighbor. Patient has had suicide attempts in the past. There is possible concerns of empty pill bottles and insulin OD. History is obtained from ED physician charting and chart review. Unable to obtain history from patient as the patient is intubated. 01/14: ICU requiring high dose levophed and fluid boluses as well as vent. CXR reviewed with left middle platelike atelectasis. CT head did negative for acute findings. Afebrile. Hypoglycemic overnight started on D10 infusion. WBC 17 K Hb 10.40.8, glucose 80, mag 1.8, TSH 0.160. 01/15: Afebrile overnight. Vent 35% and PEEP of 5, and off sedation today. Still on low-dose Levophed. Not waking up very well. Labs stable glucose in the 200s. Afebrile. On 4 L nasal cannulated oxygen. Was extubated late on 01/16/2020. Labs stable hemodynamically stable. He does admit to attempting suicide to me today notes after that suicide of his daughter and of his other daughter he has had suicidal thoughts for quite a while and due to the worsening health of his who had an infected hip arthroplasty and is now wheelchair-bound and the $300,000 each of them individually O and healthcare bills he felt hopeless and attempted to kill himself so that he could be with his daughters, he still feels hopeless at this time and still plans to be with his daughters in any way possible. He understands that inpatient psychiatric care would be appropriate and he is currently amenable to this, he wants to know if there is a better solution. Plan: We will wean O2 as tolerated Continue one-to-one sitter Psychiatry and PAT team to see Needs inpatient psych placement Okay to downgrade to medical surgical floor Vitals/I&O Vitals/I&O: Vital Signs Date Time Temp Pulse Resp B/P (MAP) Pulse Ox O2 Delivery O2 Flow Rate FiO2 01/17/20 08:00 92 16 106/9 (41) 100 Room Air 01/17/20 08:00 2.0 01/17/20 07:00 97.6 97.6 I & O 01/16/20 01/16/20 01/17/20 15:00 23:00 07:00 Intake Total 789.8 ml 496 ml 1190 ml Output Total 750 ml 470 ml 450 ml Balance 39.8 ml 26 ml 740 ml Physical Exam General: Alert, Oriented X3, Cooperative, No acute distress Heart: Regular rate Lungs: Clear Abdomen: Normal bowel sounds Skin: No rashes Labs Labs: Laboratory Tests Test 01/16/20 13:40 01/16/20 13:50 01/16/20 17:30 01/16/20 20:35 Glucose (Fingerstick) 338 mg/dL (70-99) 287 mg/dL (70-99) 255 mg/dL (70-99) O2 Saturation 96 % (92-99) Arterial Blood pH 7.32 (7.35-7.45) Arterial Blood pCO2 at Patient Temp 33 mmHg (35-46) Arterial Blood pO2 at Patient Temp 96 mmHg (65-108) Arterial Blood HCO3 17 mmol/L (21-28) Arterial Blood Base Excess -9 mmol/L (-3-3) FiO2 35 Test 01/16/20 22:05 01/17/20 05:00 Vancomycin Level Trough 15.1 mcg/mL (10.0-20.0) Vancomycin Last Dose Date 01/15/2020 Vancomycin Last Dose Time 2300 Sodium Level 142 mmol/L (136-145) Potassium Level 3.8 mmol/L (3.5-5.1) Chloride Level 110 mmol/L (98-107) Carbon Dioxide Level 25 mmol/L (21-32) Anion Gap 7 (6-14) Blood Urea Nitrogen 21 mg/dL (8-26) Creatinine 1.3 mg/dL (0.7-1.3) Estimated GFR (Cockcroft-Gault) 55.2 Glucose Level 219 mg/dL (70-99) Calcium Level 7.7 mg/dL (8.5-10.1) Phosphorus Level 2.1 mg/dL (2.6-4.7) Albumin 2.1 g/dL (3.4-5.0) Assessment and Plan Assessmemt and Plan Problems Medical Problems: (1) Acute renal insufficiency Status: Acute (2) Altered mental status Status: Acute (3) Aspiration pneumonia Status: Acute (4) Hyperglycemia Status: Acute (5) Hypomagnesemia Status: Acute (6) Septic shock Status: Acute Comment Review of Relevant I have reviewed the following items lauryn (where applicable) has been applied. Medications: Current Medications Medications (Trade) Dose Ordered Sig/Serenity Route PRN Reason Start Time Stop Time Status Last Admin Dose Admin Albumin Human 250 ml @ 62.5 mls/hr 1X ONCE IV 01/16/20 11:15 01/16/20 15:14 DC 01/16/20 11:33 Insulin Glargine (Lantus Syringe) 20 unit QHS SQ 01/16/20 21:00 01/16/20 20:33 Insulin Human Lispro (HumaLOG) 0-7 UNITS TIDWMEALS SQ 01/16/20 17:00 01/17/20 07:25 Sodium Bicarbonate (Sodium Bicarb Adult 8.4% Syr) 50 meq 1X ONCE IV 01/16/20 14:15 01/16/20 14:16 DC 01/16/20 14:13 Sodium Bicarbonate (Sodium Bicarb Adult 8.4% Syr) 50 meq 1X ONCE IV 01/16/20 14:15 01/16/20 14:16 DC 01/16/20 14:13 Sodium Chloride 1,000 ml @ 75 mls/hr 1X ONCE IV 01/16/20 16:45 01/17/20 06:04 DC 01/16/20 17:07 Vancomycin HCl (Vancomycin Trough Level) 1 each 1X ONCE MC 01/16/20 22:30 01/16/20 22:31 DC 01/16/20 22:30 Haloperidol Lactate (Haldol Inj) 5 mg PRN Q6HRS PRN IVP AGITATION 01/16/20 18:00 01/17/20 06:13 Haloperidol Lactate (Haldol Inj) 5 mg 1X ONCE IVP 01/16/20 18:00 01/16/20 18:01 DC 01/16/20 18:00 Justicifation of Admission Dx: Justifications for Admission: Justification of Admission Dx: Yes Aspiration Pneumonia: Hemodynamic Instability Sepsis: Altered Mental Status Altered Mental Status: Altered Mental Status SHERICE WILLIAMSON MD Jan 17, 2020 09:26
--- NOTE | 2020-01-17 09:57 | CARD ---
MR#: [id number] Date of Study: 01/16/2020 Ordering Physician: ALLY CASTANEDA, Referring Physician: ALLY CASTANEDA, Tech: Daisy Gloria APPROVED REPORT EXAM: Two-dimensional and M-mode echocardiogram with Doppler and color Doppler. Other Information Quality : Fair Technically limited study due to combative patient INDICATION AMS RISK FACTORS Hypertension Hyperlipidemia Diabetes 2D DIMENSIONS Left Atrium(2D)4.0 (1.6-4.0cm)IVSd1.1 (0.7-1.1cm) Aortic Root(2D)3.2 (2.0-3.7cm)LVDd4.5 (3.9-5.9cm) LVOT Diameter2.2 (1.8-2.4cm)PWd1.1 (0.7-1.1cm) LVDs3.6 (2.5-4.0cm)FS (%) 18.8 % SV35.9 mlLVEF(%)39.0 (>50%) Aortic Valve AoV Peak Gama.163.0cm/sAoV VTI30.3cm AO Peak GR.10.6mmHgLVOT VTI 24.14cm AO Mean GR.6mmHg Mitral Valve MV E Vkuvhpvs710.2cm/sMV E Peak Gr.6mmHg MV E Mean Gr.4mmHg TDI Lateral E' P. V5.15cm/sMedial E' P. V11.78cm/s E/Lateral E'22.4E/Medial E'9.8 Tricuspid Valve TR P. [id number]/sRAP [id number] TR Peak Gr.[id number] LEFT VENTRICLE The left ventricle is normal size. There is mild concentric left ventricular hypertrophy. The left ve ntricular systolic function is normal. The Ejection Fraction is 55%. There is normal LV segmental wal l motion. RIGHT VENTRICLE The right ventricle is normal size. There is normal right ventricular wall thickness. The right ventr icular systolic function is normal. ATRIA The left atrium is mildly dilated. The right atrium is mildly dilated. The interatrial septum is inta ct with no evidence for an atrial septal defect or patent foramen ovale as noted on 2-D or Doppler im aging. AORTIC VALVE The aortic valve is thickened but opens well. Doppler and Color Flow revealed no significant aortic r egurgitation. There is no significant aortic valvular stenosis. Calculated aortic valve area is 3.19 cm2 with maximum pressure gradient of 14 mmHg and mean pressure gradient of 7 mmHg. MITRAL VALVE The mitral valve is normal in structure and function. There is no evidence of mitral valve prolapse. There is no mitral valve stenosis. Doppler and Color Flow revealed no mitral valve regurgitation note d. TRICUSPID VALVE The tricuspid valve is normal in structure and function. Doppler and Color Flow revealed trace tricus pid regurgitation with an estimated PAP of 25 mmHg. There is no tricuspid valve stenosis. PULMONIC VALVE The pulmonic valve is not well visualized. Doppler and Color Flow revealed no pulmonic valvular regur gitation. GREAT VESSELS The aortic root is normal in size. The IVC was not visualized. PERICARDIAL EFFUSION There is no evidence of significant pericardial effusion. Critical Notification Critical Value: No <Conclusion> The left ventricular systolic function is normal. The Ejection Fraction is 55%. There is normal LV segmental wall motion. Trace tricuspid regurgitation with an estimated PAP of 25 mmHg. There is no evidence of significant pericardial effusion. Signed by : Julito Mckeon, Electronically Approved : 01/17/2020 09:56:51
--- NOTE | 2020-01-17 10:05 | PDOC ---
PROGRESS NOTES Assessment Problems Medical Problems: (1) Acute renal insufficiency Status: Acute (2) Altered mental status Status: Acute (3) Aspiration pneumonia Status: Acute (4) Hyperglycemia Status: Acute (5) Hypomagnesemia Status: Acute (6) Septic shock Status: Acute Admits that he made a suicide attempt,history of suicidal gestures Acute encephalopathy Fall Hyperglycemia and hypoglycemia, Respiratory failure, septic shock, acute kidney injury, possible non-ST elevation myocardial infarction History of cerebrovascular accident. Plan No additional neurological studies needed Treat medical issues Psychiatric assessment team, psychiatry to follow Subjective Denies pain Objective Vital Signs Date Time Temp Pulse Resp B/P (MAP) Pulse Ox O2 Delivery O2 Flow Rate FiO2 01/17/20 09:00 93 16 101/61 (74) 100 Room Air 01/17/20 08:00 2.0 01/17/20 07:00 97.6 97.6 Intake and Output 01/17/20 07:00 Intake Total 2475.8 ml Output Total 1670 ml Balance 805.8 ml Intake Oral 0 ml IV Total 1814.8 ml Tube Feeding 261 ml Other 400 ml Output Urine Total 1670 ml Gastric Drainage Total 0 ml PHYSICAL EXAM Alert. Oriented to place and person. PERRL. EOMI. CN: no focal findings. Muscle tone: normal. 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 Sensory exam: no abnormal findings. No cerebellar signs elicited. Review of Relevant I have reviewed the following items lauryn (where applicable) has been applied. Labs Laboratory Tests Test 01/15/20 11:39 01/15/20 13:46 01/15/20 15:38 01/15/20 17:34 Glucose (Fingerstick) 70 mg/dL (70-99) 88 mg/dL (70-99) 124 mg/dL (70-99) 133 mg/dL (70-99) Test 01/15/20 22:29 01/15/20 22:30 01/16/20 05:00 01/16/20 07:55 Glucose (Fingerstick) 122 mg/dL (70-99) Vancomycin Level Trough 14.4 mcg/mL (10.0-20.0) Vancomycin Last Dose Date Vancomycin Last Dose Time White Blood Count 10.7 x10^3/uL (4.0-11.0) Red Blood Count 2.77 x10^6/uL (4.30-5.70) Hemoglobin 8.9 g/dL (13.0-17.5) Hematocrit 25.4 % (39.0-53.0) Mean Corpuscular Volume 92 fL (79-100) Mean Corpuscular Hemoglobin 32 pg (25-35) Mean Corpuscular Hemoglobin Concent 35 g/dL (31-37) Red Cell Distribution Width 16.0 % (11.5-14.5) Platelet Count 129 x10^3/uL (140-400) Sodium Level 138 mmol/L (136-145) Potassium Level 4.7 mmol/L (3.5-5.1) Chloride Level 108 mmol/L (98-107) Carbon Dioxide Level 22 mmol/L (21-32) Anion Gap 8 (6-14) Blood Urea Nitrogen 21 mg/dL (8-26) Creatinine 1.3 mg/dL (0.7-1.3) Estimated GFR (Cockcroft-Gault) 55.2 Glucose Level 221 mg/dL (70-99) Calcium Level 7.7 mg/dL (8.5-10.1) O2 Saturation 97 % (92-99) Arterial Blood pH 7.32 (7.35-7.45) Arterial Blood pCO2 at Patient Temp 35 mmHg (35-46) Arterial Blood pO2 at Patient Temp 103 mmHg (65-108) Arterial Blood HCO3 17 mmol/L (21-28) Arterial Blood Base Excess -8 mmol/L (-3-3) FiO2 35 Test 01/16/20 08:15 01/16/20 13:40 01/16/20 13:50 01/16/20 17:30 Glucose (Fingerstick) 276 mg/dL (70-99) 338 mg/dL (70-99) 287 mg/dL (70-99) O2 Saturation 96 % (92-99) Arterial Blood pH 7.32 (7.35-7.45) Arterial Blood pCO2 at Patient Temp 33 mmHg (35-46) Arterial Blood pO2 at Patient Temp 96 mmHg (65-108) Arterial Blood HCO3 17 mmol/L (21-28) Arterial Blood Base Excess -9 mmol/L (-3-3) FiO2 35 Test 01/16/20 20:35 01/16/20 22:05 01/17/20 05:00 Glucose (Fingerstick) 255 mg/dL (70-99) Vancomycin Level Trough 15.1 mcg/mL (10.0-20.0) Vancomycin Last Dose Date 01/15/2020 Vancomycin Last Dose Time 2300 Sodium Level 142 mmol/L (136-145) Potassium Level 3.8 mmol/L (3.5-5.1) Chloride Level 110 mmol/L (98-107) Carbon Dioxide Level 25 mmol/L (21-32) Anion Gap 7 (6-14) Blood Urea Nitrogen 21 mg/dL (8-26) Creatinine 1.3 mg/dL (0.7-1.3) Estimated GFR (Cockcroft-Gault) 55.2 Glucose Level 219 mg/dL (70-99) Calcium Level 7.7 mg/dL (8.5-10.1) Phosphorus Level 2.1 mg/dL (2.6-4.7) Albumin 2.1 g/dL (3.4-5.0) Laboratory Tests Test 01/16/20 13:40 01/16/20 13:50 01/16/20 17:30 01/16/20 20:35 Glucose (Fingerstick) 338 mg/dL (70-99) 287 mg/dL (70-99) 255 mg/dL (70-99) O2 Saturation 96 % (92-99) Arterial Blood pH 7.32 (7.35-7.45) Arterial Blood pCO2 at Patient Temp 33 mmHg (35-46) Arterial Blood pO2 at Patient Temp 96 mmHg (65-108) Arterial Blood HCO3 17 mmol/L (21-28) Arterial Blood Base Excess -9 mmol/L (-3-3) FiO2 35 Test 01/16/20 22:05 01/17/20 05:00 Vancomycin Level Trough 15.1 mcg/mL (10.0-20.0) Vancomycin Last Dose Date 01/15/2020 Vancomycin Last Dose Time 2300 Sodium Level 142 mmol/L (136-145) Potassium Level 3.8 mmol/L (3.5-5.1) Chloride Level 110 mmol/L (98-107) Carbon Dioxide Level 25 mmol/L (21-32) Anion Gap 7 (6-14) Blood Urea Nitrogen 21 mg/dL (8-26) Creatinine 1.3 mg/dL (0.7-1.3) Estimated GFR (Cockcroft-Gault) 55.2 Glucose Level 219 mg/dL (70-99) Calcium Level 7.7 mg/dL (8.5-10.1) Phosphorus Level 2.1 mg/dL (2.6-4.7) Albumin 2.1 g/dL (3.4-5.0) Microbiology 01/14/20 Blood Culture - Preliminary, Resulted NO GROWTH AFTER 3 DAYS Medications Current Medications Sodium Chloride 1,000 ml @ 1,000 mls/hr 1X ONCE IV Last administered on 01/13/20at 18:20; Start 01/13/20 at 18:45; Stop 01/13/20 at 19:44; Status DC Sodium Chloride 1,000 ml @ 1,000 mls/hr 1X ONCE IV Last administered on 01/13/20at 18:35; Start 01/13/20 at 18:45; Stop 01/13/20 at 19:44; Status DC Fentanyl Citrate (Fentanyl 2ml Vial) 50 mcg PRN Q1HR PRN IV SEE COMMENTS Last administered on 01/16/20at 17:12; Start 01/13/20 at 18:45; Stop 01/16/20 at 19:23; Status DC Chlorhexidine Gluconate (Peridex) 15 ml BID MM Last administered on 01/16/20at 08:59; Start 01/13/20 at 21:00; Stop 01/16/20 at 19:23; Status DC Midazolam HCl (Versed) 5 mg PRN Q1HR PRN IV AGITATION Last administered on 01/13/20at 19:53; Start 01/13/20 at 18:45; Stop 01/17/20 at 09:00; Status DC Etomidate (Amidate) 20 mg STK-MED ONCE IV ; Start 01/13/20 at 18:58; Stop 01/13/20 at 18:59; Status DC Rocuronium [place] (Zemuron) 50 mg STK-MED ONCE .ROUTE ; Start 01/13/20 at 18:59; Stop 01/13/20 at 18:59; Status DC Rocuronium [place] (Zemuron) 50 mg 1X ONCE IV Last administered on 01/13/20at 19:52; Start 01/13/20 at 19:00; Stop 01/13/20 at 19:25; Status DC Etomidate (Amidate) 20 mg 1X ONCE IV Last administered on 01/13/20at 19:52; Start 01/13/20 at 19:00; Stop 01/13/20 at 19:25; Status DC Potassium Chloride/Water 100 ml @ 100 mls/hr Q1H IV Last administered on 01/14/20at 00:34; Start 01/13/20 at 19:15; Stop 01/13/20 at 23:14; Status DC Norepinephrine Bitartrate 8 mg/ Dextrose 258 ml @ 24.633 mls/ hr 1X ONCE IV Last administered on 01/13/20at 19:45; Start 01/13/20 at 19:45; Stop 01/14/20 at 06:13; Status DC Piperacillin Sod/ Tazobactam Sod 4.5 gm/Sodium Chloride 100 ml @ 200 mls/hr 1X ONCE IV Last administered on 01/13/20at 19:45; Start 01/13/20 at 19:45; Stop 01/13/20 at 20:14; Status DC Sodium Chloride 1,000 ml @ 1,000 mls/hr 1X ONCE IV Last administered on 01/13/20at 19:45; Start 01/13/20 at 19:45; Stop 01/13/20 at 20:44; Status DC Levofloxacin/ Dextrose 150 ml @ 100 mls/hr 1X ONCE IV Last administered on 01/13/20at 21:05; Start 01/13/20 at 21:00; Stop 01/13/20 at 22:29; Status DC Vancomycin HCl (Vanco Per Pharmacy) 1 each PRN DAILY PRN MC SEE COMMENTS Last administered on 01/17/20at 09:49; Start 01/13/20 at 19:45 Magnesium Sulfate 50 ml @ 25 mls/hr 1X ONCE IV Last administered on 01/14/20at 01:11; Start 01/13/20 at 19:45; Stop 01/13/20 at 21:44; Status DC Insulin Human Regular (HumuLIN R VIAL) 12 unit 1X ONCE SQ Last administered on 01/13/20at 19:45; Start 01/13/20 at 19:45; Stop 01/13/20 at 19:46; Status DC Ondansetron HCl (Zofran) 4 mg PRN Q8HRS PRN IV NAUSEA/VOMITING; Start 01/13/20 at 20:45; Stop 01/14/20 at 20:44; Status DC Insulin Human Lispro (HumaLOG) 0-5 UNITS TIDWMEALS SQ Last administered on 01/16/20at 08:43; Start 01/14/20 at 08:00; Stop 01/16/20 at 12:43; Status DC Dextrose (Dextrose 50%-Water Syringe) 12.5 gm PRN Q15MIN PRN IV SEE COMMENTS Last administered on 01/15/20at 00:41; Start 01/13/20 at 20:45; Stop 01/17/20 at 09:01; Status DC Sodium Chloride 1,000 ml @ 100 mls/hr 1X ONCE IV Last administered on 01/13/20at 21:10; Start 01/13/20 at 20:45; Stop 01/14/20 at 06:44; Status DC Vancomycin HCl 2 gm/Sodium Chloride 500 ml @ 250 mls/hr 1X ONCE IV Last administered on 01/13/20at 22:59; Start 01/13/20 at 21:00; Stop 01/13/20 at 22:59; Status DC Midazolam HCl 100 ml @ 0 mls/hr CONT PRN IV SEE PROTOCOL Last administered on 01/16/20at 08:45; Start 01/13/20 at 22:15 Vancomycin HCl 2 gm/Sodium Chloride 500 ml @ 250 mls/hr Q24H IV Last administered on 01/16/20at 22:55; Start 01/14/20 at 23:00 Vancomycin HCl (Vancomycin Trough Level) 1 each 1X ONCE MC Last administered on 01/15/20at 22:30; Start 01/15/20 at 22:30; Stop 01/15/20 at 22:31; Status DC Enoxaparin Sodium (Lovenox Per Pharmacy Prophylaxis Dosing) 1 each PRN DAILY PRN MC SEE COMMENTS; Start 01/14/20 at 02:00 Potassium Chloride 20 meq/ Dextrose/Sodium Chloride 1,010 ml @ 85 mls/hr [id number] IV ; Start 01/14/20 at 02:00; Status UNV Potassium Chloride/Dextrose/ Sod Cl 1,000 ml @ 85 mls/hr [id number] IV Last administered on 01/14/20at 14:19; Start 01/14/20 at 02:15; Stop 01/14/20 at 21:20; Status DC Enoxaparin Sodium (Lovenox 40mg Syringe) 40 mg QHS SQ Last administered on 01/16/20at 20:32; Start 01/14/20 at 02:15 Norepinephrine Bitartrate 8 mg/ Dextrose 258 ml @ 22.678 mls/ hr CONT PRN IV PER PROTOCOL Last administered on 01/14/20at 02:42; Start 01/14/20 at 02:45; Stop 01/14/20 at 09:00; Status DC Norepinephrine Bitartrate 32 mg/ Dextrose 250 ml @ 5.484 mls/ hr CONT PRN IV SEE I/O RECORD Last administered on 01/16/20at 00:29; Start 01/14/20 at 07:45 Glucagon (Glucagen) 1 mg PRN Q15MIN PRN IV LOW BLOOD SUGAR Last administered on 01/15/20at 04:12; Start 01/14/20 at 09:30 Vasopressin 20 unit/Dextrose 101 ml @ 12 mls/hr CONT PRN IV SEE I/O RECORD; Start 01/14/20 at 09:45 Potassium Chloride/Water 100 ml @ 100 mls/hr Q1H IV Last administered on 01/14/20at 14:19; Start 01/14/20 at 11:00; Stop 01/14/20 at 14:59; Status DC Vancomycin HCl 1.75 gm/Sodium Chloride 500 ml @ 250 mls/hr Q18H IV ; Start 01/14/20 at 17:00; Status Cancel Pantoprazole Sodium (PROTONIX VIAL for IV PUSH) 40 mg DAILYAC IVP Last administered on 01/17/20at 07:24; Start 01/14/20 at 13:00 Fentanyl Citrate 30 ml @ 0 mls/hr CONT PRN IV SEE I/O RECORD; Start 01/14/20 at 16:00; Status Cancel Naloxone HCl (Narcan) 0.4 mg PRN Q2MIN PRN IV SEE INSTRUCTIONS; Start 01/14/20 at 16:00 Sodium Chloride 1,000 ml @ 25 mls/hr Q24H IV ; Start 01/14/20 at 15:52 Fentanyl Citrate 30 ml @ 0 mls/hr CONT PRN IV SEE PROTOCOL Last administered on 01/16/20at 09:12; Start 01/14/20 at 16:00 Dextrose 1,000 ml @ 75 mls/hr [id number] IV Last administered on 01/15/20at 11:15; Start 01/14/20 at 21:30; Stop 01/15/20 at 15:50; Status DC Sodium Chloride 1,000 ml @ 1,000 mls/hr 1X ONCE IV Last administered on 01/15/20at 09:48; Start 01/15/20 at 09:45; Stop 01/15/20 at 10:44; Status DC Sodium Chloride 500 ml @ 500 mls/hr 1X ONCE IV Last administered on 01/15/20at 12:30; Start 01/15/20 at 12:30; Stop 01/15/20 at 13:29; Status DC Piperacillin Sod/ Tazobactam Sod 4.5 gm/Sodium Chloride 100 ml @ 200 mls/hr Q6HRS IV Last administered on 01/17/20at 05:56; Start 01/15/20 at 16:00 Aspirin (Ecotrin) 81 mg DAILYWBKFT PO Last administered on 01/16/20at 08:05; Start 01/16/20 at 08:00 Albumin Human 250 ml @ 62.5 mls/hr 1X ONCE IV Last administered on 01/16/20at 11:33; Start 01/16/20 at 11:15; Stop 01/16/20 at 15:14; Status DC Aspirin (Omkar Aspirin) 325 mg DAILYWBKFT PO ; Start 01/17/20 at 08:00; Stop 01/17/20 at 09:23; Status DC Atorvastatin Calcium (Lipitor) 20 mg QHS PO ; Start 01/16/20 at 21:00; Stop 01/16/20 at 12:45; Status DC Insulin Glargine (Lantus Syringe) 20 unit QHS SQ Last administered on 01/16/20at 20:33; Start 01/16/20 at 21:00 Insulin Human Lispro (HumaLOG) 0-7 UNITS TIDWMEALS SQ Last administered on 01/17/20at 07:25; Start 01/16/20 at 17:00 Dextrose (Dextrose 50%-Water Syringe) 12.5 gm PRN Q15MIN PRN IV SEE COMMENTS; Start 01/16/20 at 12:45 Sodium Bicarbonate (Sodium Bicarb Adult 8.4% Syr) 50 meq 1X ONCE IV Last administered on 01/16/20at 14:13; Start 01/16/20 at 14:15; Stop 01/16/20 at 14:16; Status DC Sodium Bicarbonate (Sodium Bicarb Adult 8.4% Syr) 50 meq 1X ONCE IV Last administered on 01/16/20at 14:13; Start 01/16/20 at 14:15; Stop 01/16/20 at 14:16; Status DC Sodium Bicarbonate (Sodium Bicarb Adult 8.4% Syr) 50 meq STK-MED ONCE .ROUTE ; Start 01/16/20 at 14:11; Stop 01/16/20 at 14:12; Status DC Sodium Chloride 1,000 ml @ 75 mls/hr 1X ONCE IV Last administered on 01/16/20at 17:07; Start 01/16/20 at 16:45; Stop 01/17/20 at 06:04; Status DC Vancomycin HCl (Vancomycin Trough Level) 1 each 1X ONCE MC Last administered on 01/16/20at 22:30; Start 01/16/20 at 22:30; Stop 01/16/20 at 22:31; Status DC Haloperidol Lactate (Haldol Inj) 5 mg PRN Q6HRS PRN IVP AGITATION Last administered on 01/17/20at 06:13; Start 01/16/20 at 18:00 Haloperidol Lactate (Haldol Inj) 5 mg 1X ONCE IVP Last administered on 01/16/20at 18:00; Start 01/16/20 at 18:00; Stop 01/16/20 at 18:01; Status DC Active Scripts Active Aspirin 325 Mg Tablet 325 Mg PO [id number] 30 Days Atorvastatin Calcium 20 Mg Tablet 20 Mg PO QHS 30 Days Reported Trazodone Hcl 50 Mg Tablet 1 Tab PO QHS Celexa (Citalopram Hydrobromide) 10 Mg Tablet 1 Tab PO DAILY Lantus Solostar (Insulin Glargine,Hum.rec.anlog) 100 Unit/1 Ml Insuln.pen 65 Unit SQ QHS Gabapentin (Gabapentin) 300 Mg Capsule 300 Mg PO TID Nexium Capsule (Esomeprazole Magnesium) 20 Mg Capsule. 1 Cap PO DAILY Actos (Pioglitazone Hcl) 30 Mg Tablet 30 Mg PO DAILY Metformin Hcl 500 Mg Tablet 500 Mg PO BIDWMEALS Vitals/I & O Vital Sign - Last 24 Hours 01/16/20 01/16/20 01/16/20 01/16/20 11:00 11:42 12:00 12:00 Temp 97.7 97.7 Pulse 80 82 Resp 20 B/P (MAP) 82/47 (59) 140/67 (91) Pulse Ox 98 99 98 O2 Delivery Ventilator Ventilator Ventilator Mechanical Ventilator 01/16/20 01/16/20 01/16/20 01/16/20 12:30 12:45 13:00 13:00 Pulse 84 84 90 Resp 20 20 20 B/P (MAP) 149/71 (97) 97/50 (66) 99/56 (70) Pulse Ox 99 97 97 O2 Delivery Ventilator Ventilator Ventilator Ventilator 01/16/20 01/16/20 01/16/20 01/16/20 14:00 14:30 15:00 16:00 Temp 97.6 97.6 Pulse 86 94 93 Resp 20 30 23 B/P (MAP) 92/53 (66) 98/76 (83) 99/54 (69) Pulse Ox 97 98 100 O2 Delivery Ventilator Venturi Mask Venturi Mask Venturi Mask O2 Flow Rate 12.0 12.0 12.0 01/16/20 01/16/20 01/16/20 01/16/20 16:00 17:00 17:12 17:42 Pulse 94 Resp 23 23 B/P (MAP) 95/53 (67) Pulse Ox 100 100 99 O2 Delivery Venturi Mask Venturi Mask Venturi Mask Venturi Mask O2 Flow Rate 12.0 12.0 12.0 12.0 01/16/20 01/16/20 01/16/20 01/16/20 18:00 19:00 19:40 20:00 Temp 98.4 98.4 Pulse 94 96 96 Resp 19 18 19 B/P (MAP) 85/56 (66) 95/63 (74) 99/58 (72) Pulse Ox 95 96 95 O2 Delivery Room Air Ventilator Room Air Room Air O2 Flow Rate 01/16/20 01/16/20 01/16/20 01/16/20 21:00 22:00 23:00 23:40 Temp 97.4 97.4 Pulse 97 96 100 Resp 18 18 18 B/P (MAP) 104/60 (75) 119/72 (88) 103/54 (70) Pulse Ox 100 100 100 O2 Delivery Room Air Room Air Room Air Room Air 01/17/20 01/17/20 01/17/20 01/17/20 00:00 01:00 02:00 03:00 Temp 97.9 97.9 Pulse 101 100 100 101 Resp 18 20 22 18 B/P (MAP) 129/58 (81) 107/53 (71) 114/58 (76) 132/68 (89) Pulse Ox 96 93 96 91 O2 Delivery Room Air Room Air Room Air Room Air 01/17/20 01/17/20 01/17/20 01/17/20 03:45 04:00 05:00 06:00 Pulse 100 98 98 Resp 20 18 18 B/P (MAP) 114/60 (78) 108/58 (75) 99/54 (69) Pulse Ox 99 100 100 O2 Delivery Nasal Cannula Room Air Room Air Room Air O2 Flow Rate 2.0 01/17/20 01/17/20 01/17/20 01/17/20 07:00 08:00 08:00 09:00 Temp 97.6 97.6 Pulse 96 92 93 Resp 16 16 16 B/P (MAP) 95/49 (64) 106/69 (81) 101/61 (74) Pulse Ox 100 100 100 O2 Delivery Room Air Nasal Cannula Room Air Room Air O2 Flow Rate 2.0 Intake and Output 01/16/20 01/16/20 01/17/20 15:00 23:00 07:00 Intake Total 789.8 ml 496 ml 1190 ml Output Total 750 ml 470 ml 450 ml Balance 39.8 ml 26 ml 740 ml Justicifation of Admission Dx: Justifications for Admission: Justification of Admission Dx: Yes Aspiration Pneumonia: Hemodynamic Instability Sepsis: Altered Mental Status Altered Mental Status: Altered Mental Status YAZ ESCOBEDO MD Jan 17, 2020 10:05
--- NOTE | 2020-01-17 10:30 | PDOC ---
PULMONARY PROGRESS NOTES DATE: 01/17/20 TIME: 10:27 Subjective extubated 01/15 no overnight concerns from nursing Vitals Vital Signs Date Time Temp Pulse Resp B/P (MAP) Pulse Ox O2 Delivery O2 Flow Rate FiO2 01/17/20 09:00 93 16 101/61 (74) 100 Room Air 01/17/20 08:00 2.0 01/17/20 07:00 97.6 97.6 ROS: No Nausea, No Chest Pain General: Alert Lungs: Clear Cardiovascular: S1, S2 Abdomen: Soft, Non-tender Neuro Exam: Alert Extremities: Other (+1 RLE) Skin: Warm, Dry Labs Laboratory Tests Test 01/15/20 11:39 01/15/20 13:46 01/15/20 15:38 01/15/20 17:34 Glucose (Fingerstick) 70 mg/dL (70-99) 88 mg/dL (70-99) 124 mg/dL (70-99) 133 mg/dL (70-99) Test 01/15/20 22:29 01/15/20 22:30 01/16/20 05:00 01/16/20 07:55 Glucose (Fingerstick) 122 mg/dL (70-99) Vancomycin Level Trough 14.4 mcg/mL (10.0-20.0) Vancomycin Last Dose Date Vancomycin Last Dose Time White Blood Count 10.7 x10^3/uL (4.0-11.0) Red Blood Count 2.77 x10^6/uL (4.30-5.70) Hemoglobin 8.9 g/dL (13.0-17.5) Hematocrit 25.4 % (39.0-53.0) Mean Corpuscular Volume 92 fL (79-100) Mean Corpuscular Hemoglobin 32 pg (25-35) Mean Corpuscular Hemoglobin Concent 35 g/dL (31-37) Red Cell Distribution Width 16.0 % (11.5-14.5) Platelet Count 129 x10^3/uL (140-400) Sodium Level 138 mmol/L (136-145) Potassium Level 4.7 mmol/L (3.5-5.1) Chloride Level 108 mmol/L (98-107) Carbon Dioxide Level 22 mmol/L (21-32) Anion Gap 8 (6-14) Blood Urea Nitrogen 21 mg/dL (8-26) Creatinine 1.3 mg/dL (0.7-1.3) Estimated GFR (Cockcroft-Gault) 55.2 Glucose Level 221 mg/dL (70-99) Calcium Level 7.7 mg/dL (8.5-10.1) O2 Saturation 97 % (92-99) Arterial Blood pH 7.32 (7.35-7.45) Arterial Blood pCO2 at Patient Temp 35 mmHg (35-46) Arterial Blood pO2 at Patient Temp 103 mmHg (65-108) Arterial Blood HCO3 17 mmol/L (21-28) Arterial Blood Base Excess -8 mmol/L (-3-3) FiO2 35 Test 01/16/20 08:15 01/16/20 13:40 01/16/20 13:50 01/16/20 17:30 Glucose (Fingerstick) 276 mg/dL (70-99) 338 mg/dL (70-99) 287 mg/dL (70-99) O2 Saturation 96 % (92-99) Arterial Blood pH 7.32 (7.35-7.45) Arterial Blood pCO2 at Patient Temp 33 mmHg (35-46) Arterial Blood pO2 at Patient Temp 96 mmHg (65-108) Arterial Blood HCO3 17 mmol/L (21-28) Arterial Blood Base Excess -9 mmol/L (-3-3) FiO2 35 Test 01/16/20 20:35 01/16/20 22:05 01/17/20 05:00 Glucose (Fingerstick) 255 mg/dL (70-99) Vancomycin Level Trough 15.1 mcg/mL (10.0-20.0) Vancomycin Last Dose Date 01/15/2020 Vancomycin Last Dose Time 2300 Sodium Level 142 mmol/L (136-145) Potassium Level 3.8 mmol/L (3.5-5.1) Chloride Level 110 mmol/L (98-107) Carbon Dioxide Level 25 mmol/L (21-32) Anion Gap 7 (6-14) Blood Urea Nitrogen 21 mg/dL (8-26) Creatinine 1.3 mg/dL (0.7-1.3) Estimated GFR (Cockcroft-Gault) 55.2 Glucose Level 219 mg/dL (70-99) Calcium Level 7.7 mg/dL (8.5-10.1) Phosphorus Level 2.1 mg/dL (2.6-4.7) Albumin 2.1 g/dL (3.4-5.0) Laboratory Tests Test 01/16/20 13:40 01/16/20 13:50 01/16/20 17:30 01/16/20 20:35 Glucose (Fingerstick) 338 mg/dL (70-99) 287 mg/dL (70-99) 255 mg/dL (70-99) O2 Saturation 96 % (92-99) Arterial Blood pH 7.32 (7.35-7.45) Arterial Blood pCO2 at Patient Temp 33 mmHg (35-46) Arterial Blood pO2 at Patient Temp 96 mmHg (65-108) Arterial Blood HCO3 17 mmol/L (21-28) Arterial Blood Base Excess -9 mmol/L (-3-3) FiO2 35 Test 01/16/20 22:05 01/17/20 05:00 Vancomycin Level Trough 15.1 mcg/mL (10.0-20.0) Vancomycin Last Dose Date 01/15/2020 Vancomycin Last Dose Time 2300 Sodium Level 142 mmol/L (136-145) Potassium Level 3.8 mmol/L (3.5-5.1) Chloride Level 110 mmol/L (98-107) Carbon Dioxide Level 25 mmol/L (21-32) Anion Gap 7 (6-14) Blood Urea Nitrogen 21 mg/dL (8-26) Creatinine 1.3 mg/dL (0.7-1.3) Estimated GFR (Cockcroft-Gault) 55.2 Glucose Level 219 mg/dL (70-99) Calcium Level 7.7 mg/dL (8.5-10.1) Phosphorus Level 2.1 mg/dL (2.6-4.7) Albumin 2.1 g/dL (3.4-5.0) Medications Active Scripts Medications Dose Route/Sig Max Daily Dose Days Date Category Aspirin 325 Mg Tablet 325 Mg PO [id number] 09/11/19 Rx Atorvastatin Calcium 20 Mg Tablet 20 Mg PO QHS 30 09/11/19 Rx Trazodone Hcl 50 Mg Tablet 1 Tab PO QHS 09/10/19 Reported Celexa (Citalopram Hydrobromide) 10 Mg Tablet 1 Tab PO DAILY 09/10/19 Reported Lantus Solostar (Insulin Glargine,Hum.rec.anlog) 100 Unit/1 Ml Insuln.pen 65 Unit SQ QHS 09/10/19 Reported Gabapentin (Gabapentin) 300 Mg Capsule 300 Mg PO TID 07/28/19 Reported Nexium Capsule (Esomeprazole Magnesium) 20 Mg Capsule. 1 Cap PO DAILY 07/28/19 Reported Actos (Pioglitazone Hcl) 30 Mg Tablet 30 Mg PO DAILY 07/28/19 Reported Metformin Hcl 500 Mg Tablet 500 Mg PO BIDWMEALS 07/28/19 Reported Comments CXR 01/15/2020 Impression: 1. New platelike atelectasis of the left midlung. No other new findings. Impression . IMPRESSION: 1. Acute hypoxemic respiratory failure secondary to septic shock, source unknown, encephalopathy, suspected suicidal attempt with insulin, acute kidney injury, extubated 01/15 2. Abnormal chest x-ray. 3. Acute kidney injury--resolved 4. Septic shock. 5. Diabetes mellitus, hyperglycemic at the beginning, now hypoglycemic. 6. Abnormal chest x-ray. 7. Encephalopathy, metabolic. 8. Obstructive sleep apnea-hypopnea syndrome. 9. Chronic kidney disease. 10. History of cerebrovascular accident. 11. Lower extremity edema. Plan . Nasal canula COVID-19.- NEG Lower extremity venous Doppler-- NEG Follow nephrology recommendations off pressors . keep mean arterial pressure more than 65, - Continue antibiotic per ID Cont. TF for nutritional support DVT/GI PPX discussed with supervisor transferring and boxing to floor ALFONSO ALEXANDER MD Jan 17, 2020 10:30
--- NOTE | 2020-01-17 11:21 | PDOC ---
JOSE STEINER SALON PROFESSIONAL 01/17/20 1121: CARDIO Progress Notes Date and Time Date of Service 01/17/2020 Time of Evaluation 1010 Subjective Subjective: Other (extubated, restless) Vitals Vitals Vital Signs Date Time Temp Pulse Resp B/P (MAP) Pulse Ox O2 Delivery O2 Flow Rate FiO2 01/17/20 09:00 93 16 101/61 (74) 100 Room Air 01/17/20 08:00 2.0 01/17/20 07:00 97.6 97.6 Weight Weight [ ] Input and Output Intake and Output Intake and Output 01/17/20 07:00 Intake Total 2475.8 ml Output Total 1670 ml Balance 805.8 ml Intake Oral 0 ml IV Total 1814.8 ml Tube Feeding 261 ml Other 400 ml Output Urine Total 1670 ml Gastric Drainage Total 0 ml Laboratory Labs Laboratory Tests Test 01/16/20 13:40 01/16/20 13:50 01/16/20 17:30 01/16/20 20:35 Glucose (Fingerstick) 338 mg/dL (70-99) 287 mg/dL (70-99) 255 mg/dL (70-99) O2 Saturation 96 % (92-99) Arterial Blood pH 7.32 (7.35-7.45) Arterial Blood pCO2 at Patient Temp 33 mmHg (35-46) Arterial Blood pO2 at Patient Temp 96 mmHg (65-108) Arterial Blood HCO3 17 mmol/L (21-28) Arterial Blood Base Excess -9 mmol/L (-3-3) FiO2 35 Test 01/16/20 22:05 01/17/20 05:00 Vancomycin Level Trough 15.1 mcg/mL (10.0-20.0) Vancomycin Last Dose Date 01/15/2020 Vancomycin Last Dose Time 2300 Sodium Level 142 mmol/L (136-145) Potassium Level 3.8 mmol/L (3.5-5.1) Chloride Level 110 mmol/L (98-107) Carbon Dioxide Level 25 mmol/L (21-32) Anion Gap 7 (6-14) Blood Urea Nitrogen 21 mg/dL (8-26) Creatinine 1.3 mg/dL (0.7-1.3) Estimated GFR (Cockcroft-Gault) 55.2 Glucose Level 219 mg/dL (70-99) Calcium Level 7.7 mg/dL (8.5-10.1) Phosphorus Level 2.1 mg/dL (2.6-4.7) Albumin 2.1 g/dL (3.4-5.0) Microbiology Micro Microbiology 01/14/20 Blood Culture - Preliminary, Resulted NO GROWTH AFTER 3 DAYS Physical Exam HEENT: Neck Supple W Full Motion LUNGS: Other (diminished) Heart: RRR (SR with no significant ectopies) Abdomen: Other (obese) Extremities: Other (LBKA; 1+ RLE pitting edema) Neurology: alert, follow commands, confused Assessment Assessment 1. Acute respiratory failure s/p intubation. COVID negative, pulmonary following 2. Leukocytosis, lactic acidosis: afebrile 3. Septic shock: BP better 4. BRYCE on CKD: Cr much better 5. Mild troponin elevation; peal 0.135. Most probably type II, demand ischemia secondary to above. EF and WM nml 6. DM2 with hypoglycemic episode 7. Metabolic encephalopathy: remains restless 8. COPD, DAVID, morbid obesity 9. H/o CVA 10. Hematuria: porribly from accidental zelaya pulling Recommendations 1. Off pressor, bipap PRN 2. Ongoing antibiotic therapy 3. Secondary prevention once PO allowed. Speech eval pending 4. Supportive care Justicifation of Admission Dx: Justifications for Admission: Justification of Admission Dx: Yes Aspiration Pneumonia: Hemodynamic Instability Sepsis: Altered Mental Status Altered Mental Status: Altered Mental Status KENDALL SOLIS MD 01/17/20 1807: CARDIO Progress Notes Plan Plan The patient was seen and interviewed as well as examined at the bedside. The chart was reviewed. The case was discussed. Agree with the plan of care. JOSE STEINER APRN Jan 17, 2020 11:21 KENDALL SOLIS MD Jan 17, 2020 18:07
[2020-01-17] MEDS: IV NORMAL SALINE 1000ML BAG 1,000 ML IV SCH (11:30)
[2020-01-17] MEDS: ASPIRIN ENTERIC COATED 81 MG TABLET.DR. PO SCH (12:21)
--- NOTE | 2020-01-17 15:29 | NUR ---
SS following up with discharge planning. Pt is currently on room air. Pt on IV Zosyn and IV Vancomycin. COVID19 negative. Psych and Darren from the PAT team met with pt. Inpatient psych recommended. Darren from PAT team sent referrals to [facility] and [facility]. SS will await acceptance decision and will proceed accordingly.
[2020-01-17] MEDS: ENOXAPARIN 40 MG/0.4 ML SYRINGE. SQ SCH (20:48)
[2020-01-17] MEDS: INSULIN GLARGINE SYRINGE. SQ SCH (20:54)
[2020-01-17] MEDS: VANCOMYCIN 2 GM in IV NORMAL SALINE 500ML BAG 500 ML IV SCH (23:39)
[2020-01-18] MEDS: PIPERACILLIN/TAZOBACTAM 4.5 GM in IV NORMAL SALINE 100ML 100 ML IV SCH ×4 (01:22→17:01)
[2020-01-18 03:48] VITALS: BP 138/77
[2020-01-18] MEDS: HALOPERIDOL LACTATE 5 MG/ML VIAL. IVP PRN (03:52)
[2020-01-18 07:13] VITALS: BP 168/87
[2020-01-18] MEDS: ASPIRIN ENTERIC COATED 81 MG TABLET.DR. PO SCH (08:24)
[2020-01-18] MEDS: PANTOPRAZOLE IV PUSH 40 MG VIAL. IVP SCH (08:24)
[2020-01-18] MEDS: INSULIN LISPRO 300 UNITS/3 ML VIAL. SQ SCH ×3 (08:30→17:03)
--- NOTE | 2020-01-18 10:13 | PDOC ---
PROGRESS NOTES Date of Service: DATE: 01/18/20 TIME: 10:12 Chief Complaint Chief Complaint impression Acute encephalopathy Suicide attempt Fall, found down on kitchen floor. Hyperglycemia and hypoglycemia DM. HTN. HLD. Cancer. Morbid obesity. Left BKA. Acute hypoxemic respiratory failure secondary to septic shock, source unknown, encephalopathy, acute kidney injury, rule out non-ST elevation myocardial infarction versus others. Abnormal chest x-ray. Acute kidney injury - likely vasomotor nephropathy Shock. Obstructive sleep apnea-hypopnea syndrome. History of cerebrovascular accident. Lower extremity edema 01/17 HE STATES HE HAS BEEN VERY DEPRESSED RE 'S HEALTH, Living situation, of daughter 38 minutes time spent with pt exam, chart review, > 50% of time spent with exam, chart review, pt care coordination History of Present Illness History of Present Illness He is a gentleman with multiple medical comorbidities and previous history of suicidal attempt brought in by his neighbor when he was found unresponsive by him. He has history of previous suicide attempt with same circumstances. At that point, he presumably took overdose of insulin. Patient was intubated, and extubated today. Upon interview, he is responsive but confused. Continue to ruminate that he wanted to talk to his neighbor. He appears paranoid, when asked about intentions of overdose to take his life, he appears little bit upset and telling that he has the right to know who said it was an intentional overdose. He categorically denies that it was something intentional. He is portraying it as an accidental overdose. Denies divert depression and anxiety. Skeptical why he is labeled as a suicide attempt. Denies any intent or plan. He is upset that why is everyone judgmental however he is told that no one is judging him. Questions were being asked only for safety concern. Patient wanting to talk to his neighbor and asking medical underwriter to call contact his neighbor right away. He is restless, argumentative, and verbally agitated. Also wanting to talk to his . Due to patient's limited insight, he is not communicating effectively. Reviewed H&P by this medical underwriter from previous admission and read as: He is a pleasant gentleman admitted with intentional overdose on his prescribed insulin found unresponsive due to severe hypoglycemia. Reportedly, he overdosed with intentions to take his life. Reportedly, 2 weeks ago his 34-year-old daughter committed suicide by overdose. Upon interview he appears cooperative and interactive. States, 2 weeks ago his daughter who was living with him committed suicide by overdose. States, he found his daughter pulseless and cold. States, due to the stress of her and grief he was not processing and right direction. States, he was in deep grief and sad. States, his whom he for 39 years as hospitalized as well for hip replacement. However, he appears insightful, cognizant of the fact that "I made a stupid mistake which I shouldn't, and I apologize". States, he is adi in God and would like to do anything in future to harm her . States, when he spoke to his and told her that he was hospitalized for intentional overdose, she got very upset and scared. He is, he knows that "my doctors are in having and God will take care of it". He denies depression and treatment of depression. Chart review, indicates history of depression and reported medications citalopram 40 mg daily. When asked from patient, he couldn't recall diagnoses of depression or citalopram. States, he has learned his lesson. He denies hopelessness, insomnia, extremely sad mood, worthlessness, or loss of interest. He denies suicidal or homicidal thoughts intent or plan. He denies previous suicidal attempt or history of recurrent suicidal ideation, except for the last few days prior to attempts. He denies history of overt depression or anxiety, illicit substance use, bipolar mood disorder, psychosis, or PTSD. States, is 24 years old daughter was with interstitial lung disease in 2004. Denies nightmares, flashbacks or chronic bereavement. He denies access to firearms. Mr Soliz is a 65 yo M w/ PMHx diabetes type 2, depression, dyslipidemia, hypertension, CVA, PVD s/p left BKA who comes to the hospital due to being found unresponsive by his neighbor. Patient has had suicide attempts in the past. There is possible concerns of empty pill bottles and insulin OD. History is obtained from ED physician charting and chart review. 01/14: ICU requiring high dose levophed and fluid boluses as well as vent. CXR reviewed with left middle platelike atelectasis. CT head did negative for acute findings. Afebrile. Hypoglycemic overnight started on D10 infusion. WBC 17 K Hb 10.40.8, glucose 80, mag 1.8, TSH 0.160. 01/15: Afebrile overnight. Vent 35% and PEEP of 5, and off sedation today. Still on low-dose Levophed. Not waking up very well. Labs stable glucose in the 200s. 01/17 await placement Afebrile. On room air . Was extubated late on 01/16/2020. Labs stable hemodynamically stable. He does admit to attempting suicide to me today notes after that suicide of his daughter and of his other daughter he has had suicidal thoughts for quite a while and due to the worsening health of his who had an infected hip arthroplasty and is now wheelchair-bound and the $300,000 each of them individually O and healthcare bills he felt hopeless and attempted to kill himself so that he could be with his daughters, he still feels hopeless at this time and still plans to be with his daughters in any way possible. He understands that inpatient psychiatric care would be appropriate and he is currently amenable to this, he wants to know if there is a better solution. Plan: We will wean O2 as tolerated Continue one-to-one sitter Psychiatry and PAT team to see Needs inpatient psych placement medical surgical floor Vitals Vitals Vital Signs Date Time Temp Pulse Resp B/P (MAP) Pulse Ox O2 Delivery O2 Flow Rate FiO2 01/18/20 07:13 97.5 91 22 168/87 (114) 98 Room Air 97.5 01/17/20 20:30 2.0 Physical Exam General: Alert, Oriented X3, Cooperative, No acute distress Heart: Regular rate Lungs: Clear Abdomen: Normal bowel sounds Skin: No rashes Labs LABS Laboratory Tests Test 01/17/20 11:50 01/17/20 17:49 01/17/20 19:50 01/18/20 06:55 Glucose (Fingerstick) 184 mg/dL (70-99) 250 mg/dL (70-99) 228 mg/dL (70-99) 180 mg/dL (70-99) Assessment and Plan Assessmemt and Plan Problems Medical Problems: (1) Acute renal insufficiency Status: Acute (2) Altered mental status Status: Acute (3) Aspiration pneumonia Status: Acute (4) Hyperglycemia Status: Acute (5) Hypomagnesemia Status: Acute (6) Septic shock Status: Acute Comment Review of Relevant I have reviewed the following items lauryn (where applicable) has been applied. Labs Laboratory Tests Test 01/16/20 13:40 01/16/20 13:50 01/16/20 17:30 01/16/20 20:35 Glucose (Fingerstick) 338 mg/dL (70-99) 287 mg/dL (70-99) 255 mg/dL (70-99) O2 Saturation 96 % (92-99) Arterial Blood pH 7.32 (7.35-7.45) Arterial Blood pCO2 at Patient Temp 33 mmHg (35-46) Arterial Blood pO2 at Patient Temp 96 mmHg (65-108) Arterial Blood HCO3 17 mmol/L (21-28) Arterial Blood Base Excess -9 mmol/L (-3-3) FiO2 35 Test 01/16/20 22:05 01/17/20 05:00 01/17/20 11:50 01/17/20 17:49 Vancomycin Level Trough 15.1 mcg/mL (10.0-20.0) Vancomycin Last Dose Date 01/15/2020 Vancomycin Last Dose Time 2300 Sodium Level 142 mmol/L (136-145) Potassium Level 3.8 mmol/L (3.5-5.1) Chloride Level 110 mmol/L (98-107) Carbon Dioxide Level 25 mmol/L (21-32) Anion Gap 7 (6-14) Blood Urea Nitrogen 21 mg/dL (8-26) Creatinine 1.3 mg/dL (0.7-1.3) Estimated GFR (Cockcroft-Gault) 55.2 Glucose Level 219 mg/dL (70-99) Calcium Level 7.7 mg/dL (8.5-10.1) Phosphorus Level 2.1 mg/dL (2.6-4.7) Albumin 2.1 g/dL (3.4-5.0) Glucose (Fingerstick) 184 mg/dL (70-99) 250 mg/dL (70-99) Test 01/17/20 19:50 01/18/20 06:55 Glucose (Fingerstick) 228 mg/dL (70-99) 180 mg/dL (70-99) Laboratory Tests Test 01/17/20 11:50 01/17/20 17:49 01/17/20 19:50 01/18/20 06:55 Glucose (Fingerstick) 184 mg/dL (70-99) 250 mg/dL (70-99) 228 mg/dL (70-99) 180 mg/dL (70-99) Microbiology 01/14/20 Blood Culture - Preliminary, Resulted NO GROWTH AFTER 4 DAYS Medications Current Medications Sodium Chloride 1,000 ml @ 1,000 mls/hr 1X ONCE IV Last administered on 01/13/20at 18:20; Start 01/13/20 at 18:45; Stop 01/13/20 at 19:44; Status DC Sodium Chloride 1,000 ml @ 1,000 mls/hr 1X ONCE IV Last administered on 01/13/20at 18:35; Start 01/13/20 at 18:45; Stop 01/13/20 at 19:44; Status DC Fentanyl Citrate (Fentanyl 2ml Vial) 50 mcg PRN Q1HR PRN IV SEE COMMENTS Last administered on 01/16/20at 17:12; Start 01/13/20 at 18:45; Stop 01/16/20 at 19:23; Status DC Chlorhexidine Gluconate (Peridex) 15 ml BID MM Last administered on 01/16/20at 08:59; Start 01/13/20 at 21:00; Stop 01/16/20 at 19:23; Status DC Midazolam HCl (Versed) 5 mg PRN Q1HR PRN IV AGITATION Last administered on 01/13/20at 19:53; Start 01/13/20 at 18:45; Stop 01/17/20 at 09:00; Status DC Etomidate (Amidate) 20 mg STK-MED ONCE IV ; Start 01/13/20 at 18:58; Stop 01/13/20 at 18:59; Status DC Rocuronium [place] (Zemuron) 50 mg STK-MED ONCE .ROUTE ; Start 01/13/20 at 18:59; Stop 01/13/20 at 18:59; Status DC Rocuronium [place] (Zemuron) 50 mg 1X ONCE IV Last administered on 01/13/20at 19:52; Start 01/13/20 at 19:00; Stop 01/13/20 at 19:25; Status DC Etomidate (Amidate) 20 mg 1X ONCE IV Last administered on 01/13/20at 19:52; Start 01/13/20 at 19:00; Stop 01/13/20 at 19:25; Status DC Potassium Chloride/Water 100 ml @ 100 mls/hr Q1H IV Last administered on 01/14/20at 00:34; Start 01/13/20 at 19:15; Stop 01/13/20 at 23:14; Status DC Norepinephrine Bitartrate 8 mg/ Dextrose 258 ml @ 24.633 mls/ hr 1X ONCE IV Last administered on 01/13/20at 19:45; Start 01/13/20 at 19:45; Stop 01/14/20 at 06:13; Status DC Piperacillin Sod/ Tazobactam Sod 4.5 gm/Sodium Chloride 100 ml @ 200 mls/hr 1X ONCE IV Last administered on 01/13/20at 19:45; Start 01/13/20 at 19:45; Stop 01/13/20 at 20:14; Status DC Sodium Chloride 1,000 ml @ 1,000 mls/hr 1X ONCE IV Last administered on 01/13/20at 19:45; Start 01/13/20 at 19:45; Stop 01/13/20 at 20:44; Status DC Levofloxacin/ Dextrose 150 ml @ 100 mls/hr 1X ONCE IV Last administered on 01/13/20at 21:05; Start 01/13/20 at 21:00; Stop 01/13/20 at 22:29; Status DC Vancomycin HCl (Vanco Per Pharmacy) 1 each PRN DAILY PRN MC SEE COMMENTS Last administered on 01/17/20at 09:49; Start 01/13/20 at 19:45 Magnesium Sulfate 50 ml @ 25 mls/hr 1X ONCE IV Last administered on 01/14/20at 01:11; Start 01/13/20 at 19:45; Stop 01/13/20 at 21:44; Status DC Insulin Human Regular (HumuLIN R VIAL) 12 unit 1X ONCE SQ Last administered on 01/13/20at 19:45; Start 01/13/20 at 19:45; Stop 01/13/20 at 19:46; Status DC Ondansetron HCl (Zofran) 4 mg PRN Q8HRS PRN IV NAUSEA/VOMITING; Start 01/13/20 at 20:45; Stop 01/14/20 at 20:44; Status DC Insulin Human Lispro (HumaLOG) 0-5 UNITS TIDWMEALS SQ Last administered on 01/16/20at 08:43; Start 01/14/20 at 08:00; Stop 01/16/20 at 12:43; Status DC Dextrose (Dextrose 50%-Water Syringe) 12.5 gm PRN Q15MIN PRN IV SEE COMMENTS Last administered on 01/15/20at 00:41; Start 01/13/20 at 20:45; Stop 01/17/20 at 09:01; Status DC Sodium Chloride 1,000 ml @ 100 mls/hr 1X ONCE IV Last administered on 01/13/20at 21:10; Start 01/13/20 at 20:45; Stop 01/14/20 at 06:44; Status DC Vancomycin HCl 2 gm/Sodium Chloride 500 ml @ 250 mls/hr 1X ONCE IV Last administered on 01/13/20at 22:59; Start 01/13/20 at 21:00; Stop 01/13/20 at 22:59; Status DC Midazolam HCl 100 ml @ 0 mls/hr CONT PRN IV SEE PROTOCOL Last administered on 01/16/20at 08:45; Start 01/13/20 at 22:15; Stop 01/17/20 at 12:18; Status DC Vancomycin HCl 2 gm/Sodium Chloride 500 ml @ 250 mls/hr Q24H IV Last administered on 01/17/20at 23:39; Start 01/14/20 at 23:00 Vancomycin HCl (Vancomycin Trough Level) 1 each 1X ONCE MC Last administered on 01/15/20at 22:30; Start 01/15/20 at 22:30; Stop 01/15/20 at 22:31; Status DC Enoxaparin Sodium (Lovenox Per Pharmacy Prophylaxis Dosing) 1 each PRN DAILY PRN MC SEE COMMENTS; Start 01/14/20 at 02:00 Potassium Chloride 20 meq/ Dextrose/Sodium Chloride 1,010 ml @ 85 mls/hr [id number] IV ; Start 01/14/20 at 02:00; Status UNV Potassium Chloride/Dextrose/ Sod Cl 1,000 ml @ 85 mls/hr [id number] IV Last administered on 01/14/20at 14:19; Start 01/14/20 at 02:15; Stop 01/14/20 at 21:20; Status DC Enoxaparin Sodium (Lovenox 40mg Syringe) 40 mg QHS SQ Last administered on 01/17/20at 20:48; Start 01/14/20 at 02:15 Norepinephrine Bitartrate 8 mg/ Dextrose 258 ml @ 22.678 mls/ hr CONT PRN IV PER PROTOCOL Last administered on 01/14/20at 02:42; Start 01/14/20 at 02:45; Stop 01/14/20 at 09:00; Status DC Norepinephrine Bitartrate 32 mg/ Dextrose 250 ml @ 5.484 mls/ hr CONT PRN IV SEE I/O RECORD Last administered on 01/16/20at 00:29; Start 01/14/20 at 07:45; Stop 01/17/20 at 12:18; Status DC Glucagon (Glucagen) 1 mg PRN Q15MIN PRN IV LOW BLOOD SUGAR Last administered on 01/15/20at 04:12; Start 01/14/20 at 09:30 Vasopressin 20 unit/Dextrose 101 ml @ 12 mls/hr CONT PRN IV SEE I/O RECORD; Start 01/14/20 at 09:45; Stop 01/17/20 at 12:18; Status DC Potassium Chloride/Water 100 ml @ 100 mls/hr Q1H IV Last administered on 01/13at 14:19; Start 01/14/20 at 11:00; Stop 01/14/20 at 14:59; Status DC Vancomycin HCl 1.75 gm/Sodium Chloride 500 ml @ 250 mls/hr Q18H IV ; Start 01/14/20 at 17:00; Status Cancel Pantoprazole Sodium (PROTONIX VIAL for IV PUSH) 40 mg DAILYAC IVP Last admi nistered on 01/18/20at 08:24; Start 01/14/20 at 13:00 Fentanyl Citrate 30 ml @ 0 mls/hr CONT PRN IV SEE I/O RECORD; Start 01/14/20 at 16:00; Status Cancel Naloxone HCl (Narcan) 0.4 mg PRN Q2MIN PRN IV SEE INSTRUCTIONS; Start 01/14/20 at 16:00 Sodium Chloride 1,000 ml @ 25 mls/hr Q24H IV Last administered on 01/17/20at 11:30; Start 8/2/20 at 15:52 Fentanyl Citrate 30 ml @ 0 mls/hr CONT PRN IV SEE PROTOCOL Last administered on 01/16/20at 09:12; Start 01/14/20 at 16:00; Stop 01/17/20 at 12:18; Status DC Dextrose 1,000 ml @ 75 mls/hr [id number] IV Last administered on 01/15/20at 11:15; Start 01/14/20 at 21:30; Stop 01/15/20 at 15:50; Status DC Sodium Chloride 1,000 ml @ 1,000 mls/hr 1X ONCE IV Last administered on 01/15/20at 09:48; Start 01/15/20 at 09:45; Stop 01/15/20 at 10:44; Status DC Sodium Chloride 500 ml @ 500 mls/hr 1X ONCE IV Last administered on 01/15/20at 12:30; Start 01/15/20 at 12:30; Stop 01/15/20 at 13:29; Status DC Piperacillin Sod/ Tazobactam Sod 4.5 gm/Sodium Chloride 100 ml @ 200 mls/hr Q6HRS IV Last administered on 01/18/20at 06:03; Start 01/15/20 at 16:00 Aspirin (Ecotrin) 81 mg DAILYWBKFT PO Last administered on 01/18/20at 08:24; Start 01/16/20 at 08:00 Albumin Human 250 ml @ 62.5 mls/hr 1X ONCE IV Last administered on 01/16/20at 11:33; Start 01/16/20 at 11:15; Stop 01/16/20 at 15:14; Status DC Aspirin (Omkar Aspirin) 325 mg DAILYWBKFT PO ; Start 01/17/20 at 08:00; Stop 01/17/20 at 09:23; Status DC Atorvastatin Calcium (Lipitor) 20 mg QHS PO ; Start 01/16/20 at 21:00; Stop 01/16/20 at 12:45; Status DC Insulin Glargine (Lantus Syringe) 20 unit QHS SQ Last administered on 01/17/20at 20:54; Start 01/16/20 at 21:00 Insulin Human Lispro (HumaLOG) 0-7 UNITS TIDWMEALS SQ Last administered on 01/18/20at 08:30; Start 01/16/20 at 17:00 Dextrose (Dextrose 50%-Water Syringe) 12.5 gm PRN Q15MIN PRN IV SEE COMMENTS; Start 01/16/20 at 12:45 Sodium Bicarbonate (Sodium Bicarb Adult 8.4% Syr) 50 meq 1X ONCE IV Last administered on 01/16/20at 14:13; Start 01/16/20 at 14:15; Stop 01/16/20 at 14:16; Status DC Sodium Bicarbonate (Sodium Bicarb Adult 8.4% Syr) 50 meq 1X ONCE IV Last administered on 01/16/20at 14:13; Start 01/16/20 at 14:15; Stop 01/16/20 at 14:16; Status DC Sodium Bicarbonate (Sodium Bicarb Adult 8.4% Syr) 50 meq STK-MED ONCE .ROUTE ; Start 01/16/20 at 14:11; Stop 01/16/20 at 14:12; Status DC Sodium Chloride 1,000 ml @ 75 mls/hr 1X ONCE IV Last administered on 01/16/20at 17:07; Start 01/16/20 at 16:45; Stop 01/17/20 at 06:04; Status DC Vancomycin HCl (Vancomycin Trough Level) 1 each 1X ONCE MC Last administered on 01/16/20at 22:30; Start 01/16/20 at 22:30; Stop 01/16/20 at 22:31; Status DC Haloperidol Lactate (Haldol Inj) 5 mg PRN Q6HRS PRN IVP AGITATION Last administered on 01/18/20at 03:52; Start 01/16/20 at 18:00 Haloperidol Lactate (Haldol Inj) 5 mg 1X ONCE IVP Last administered on 01/16/20at 18:00; Start 01/16/20 at 18:00; Stop 01/16/20 at 18:01; Status DC Active Scripts Active Aspirin 325 Mg Tablet 325 Mg PO DAILYWBKFT 30 Days Atorvastatin Calcium 20 Mg Tablet 20 Mg PO QHS 30 Days Reported Trazodone Hcl 50 Mg Tablet 1 Tab PO QHS Celexa (Citalopram Hydrobromide) 10 Mg Tablet 1 Tab PO DAILY Lantus Solostar (Insulin Glargine,Hum.rec.anlog) 100 Unit/1 Ml Insuln.pen 65 Unit SQ QHS Gabapentin (Gabapentin) 300 Mg Capsule 300 Mg PO TID Nexium Capsule (Esomeprazole Magnesium) 20 Mg Capsule.dr 1 Cap PO DAILY Actos (Pioglitazone Hcl) 30 Mg Tablet 30 Mg PO DAILY Metformin Hcl 500 Mg Tablet 500 Mg PO BIDWMEALS Vitals/I & O Vital Sign - Last 24 Hours 01/17/20 01/17/20 01/17/20 01/17/20 12:00 12:00 16:00 16:00 Temp 97.5 97.9 97.5 97.9 Pulse 91 97 Resp 20 30 B/P (MAP) 119/62 (81) 123/76 (92) Pulse Ox 100 97 O2 Delivery Nasal Cannula Room Air Room Air Nasal Cannula O2 Flow Rate 2.0 2.0 01/17/20 01/17/20 01/17/20 01/18/20 19:12 20:30 23:03 03:48 Temp 98.0 97.5 98.1 98.0 97.5 98.1 Pulse 101 98 93 Resp 24 26 22 B/P (MAP) 114/61 (78) 109/59 (76) 138/77 (97) Pulse Ox 96 92 95 O2 Delivery Room Air Nasal Cannula Room Air Room Air O2 Flow Rate 2.0 01/18/20 07:13 Temp 97.5 97.5 Pulse 91 Resp 22 B/P (MAP) 168/87 (114) Pulse Ox 98 O2 Delivery Room Air Intake and Output 01/17/20 01/17/20 01/18/20 15:00 23:00 07:00 Intake Total 50 ml 240 ml 960 ml Output Total 260 ml 375 ml 375 ml Balance -210 ml -135 ml 585 ml Justicifation of Admission Dx: Justifications for Admission: Justification of Admission Dx: Yes Aspiration Pneumonia: Hemodynamic Instability Sepsis: Altered Mental Status Altered Mental Status: Altered Mental Status ED GORDON MD Jan 18, 2020 10:13
[2020-01-18 11:09] VITALS: BP 145/80
--- NOTE | 2020-01-18 11:12 | PDOC ---
PULMONARY PROGRESS NOTES DATE: 01/18/20 TIME: 11:09 Subjective extubated 01/15 no overnight concerns from nursing Vitals Vital Signs Date Time Temp Pulse Resp B/P (MAP) Pulse Ox O2 Delivery O2 Flow Rate FiO2 01/18/20 08:00 Room Air 01/18/20 07:13 97.5 91 22 168/87 (114) 98 97.5 01/17/20 20:30 2.0 ROS: No Nausea, No Chest Pain General: Alert, No acute distress Lungs: Clear Cardiovascular: S1, S2 Abdomen: Soft, Non-tender Neuro Exam: Alert Extremities: Other (+1 RLE) Skin: Warm, Dry Labs Laboratory Tests Test 01/16/20 13:40 01/16/20 13:50 01/16/20 17:30 01/16/20 20:35 Glucose (Fingerstick) 338 mg/dL (70-99) 287 mg/dL (70-99) 255 mg/dL (70-99) O2 Saturation 96 % (92-99) Arterial Blood pH 7.32 (7.35-7.45) Arterial Blood pCO2 at Patient Temp 33 mmHg (35-46) Arterial Blood pO2 at Patient Temp 96 mmHg (65-108) Arterial Blood HCO3 17 mmol/L (21-28) Arterial Blood Base Excess -9 mmol/L (-3-3) FiO2 35 Test 01/16/20 22:05 01/17/20 05:00 01/17/20 11:50 01/17/20 17:49 Vancomycin Level Trough 15.1 mcg/mL (10.0-20.0) Vancomycin Last Dose Date 01/15/2020 Vancomycin Last Dose Time 2300 Sodium Level 142 mmol/L (136-145) Potassium Level 3.8 mmol/L (3.5-5.1) Chloride Level 110 mmol/L (98-107) Carbon Dioxide Level 25 mmol/L (21-32) Anion Gap 7 (6-14) Blood Urea Nitrogen 21 mg/dL (8-26) Creatinine 1.3 mg/dL (0.7-1.3) Estimated GFR (Cockcroft-Gault) 55.2 Glucose Level 219 mg/dL (70-99) Calcium Level 7.7 mg/dL (8.5-10.1) Phosphorus Level 2.1 mg/dL (2.6-4.7) Albumin 2.1 g/dL (3.4-5.0) Glucose (Fingerstick) 184 mg/dL (70-99) 250 mg/dL (70-99) Test 01/17/20 19:50 01/18/20 06:55 Glucose (Fingerstick) 228 mg/dL (70-99) 180 mg/dL (70-99) Laboratory Tests Test 01/17/20 11:50 01/17/20 17:49 01/17/20 19:50 01/18/20 06:55 Glucose (Fingerstick) 184 mg/dL (70-99) 250 mg/dL (70-99) 228 mg/dL (70-99) 180 mg/dL (70-99) Medications Active Scripts Medications Dose Route/Sig Max Daily Dose Days Date Category Aspirin 325 Mg Tablet 325 Mg PO DAILYWBKFT 30 09/11/19 Rx Atorvastatin Calcium 20 Mg Tablet 20 Mg PO QHS 30 09/11/19 Rx Trazodone Hcl 50 Mg Tablet 1 Tab PO QHS 09/10/19 Reported Celexa (Citalopram Hydrobromide) 10 Mg Tablet 1 Tab PO DAILY 09/10/19 Reported Lantus Solostar (Insulin Glargine,Hum.rec.anlog) 100 Unit/1 Ml Insuln.pen 65 Unit SQ QHS 09/10/19 Reported Gabapentin (Gabapentin) 300 Mg Capsule 300 Mg PO TID 07/28/19 Reported Nexium Capsule (Esomeprazole Magnesium) 20 Mg Capsule.dr 1 Cap PO DAILY 07/28/19 Reported Actos (Pioglitazone Hcl) 30 Mg Tablet 30 Mg PO DAILY 07/28/19 Reported Metformin Hcl 500 Mg Tablet 500 Mg PO BIDWMEALS 07/28/19 Reported Comments CXR 01/15/2020 Impression: 1. New platelike atelectasis of the left midlung. No other new findings. Impression . IMPRESSION: 1. Acute hypoxemic respiratory failure secondary to septic shock, source unknown, encephalopathy, suspected suicidal attempt with insulin, acute kidney injury, extubated 01/15. Doing well 2. Abnormal chest x-ray. 3. Acute kidney injury--resolved 4. Septic shock. 5. Diabetes mellitus, hyperglycemic at the beginning, now hypoglycemic. 6. Abnormal chest x-ray. 7. Encephalopathy, metabolic. 8. Obstructive sleep apnea-hypopnea syndrome. 9. Chronic kidney disease. 10. History of cerebrovascular accident. 11. Lower extremity edema. Plan . off O2 COVID-19.- NEG Lower extremity venous Doppler-- NEG Follow nephrology recommendations off pressors . keep mean arterial pressure more than 65, - Continue antibiotic per ID diet per speech DVT/GI PPX discussed with ALFONSO Garza MD Jan 18, 2020 11:12
--- NOTE | 2020-01-18 11:28 | PDOC ---
DATE OF SERVICE DATE: 01/18/20 TIME: 11:25 SUBJECTIVE ROS Transferred out of ICU , stable OBJECTIVE Vital Signs Vital Signs Date Time Temp Pulse Resp B/P (MAP) Pulse Ox O2 Delivery O2 Flow Rate FiO2 01/18/20 08:00 Room Air 01/18/20 07:13 97.5 91 22 168/87 (114) 98 97.5 01/17/20 20:30 2.0 I & 0 Intake and Output 01/18/20 07:00 Intake Total 1250 ml Output Total 1010 ml Balance 240 ml Intake Oral 1250 ml Output Urine Total 1010 ml # Bowel Movements 3 PHYSICAL EXAM Physical Exam GEN: NAD HEENT: OM moist , On RA NECK: Supple LUNGS: Clear to auscultation ant HEART: RRR, S!, S2 present. ABDOMEN: Soft, nontender. EXTREMITIES: No clubbing, cyanosis, or edema. Left below knee amputation NEUROLOGIC: grossly normal SKIN: No rash DIAGNOSIS/ASSESSMENT Assessment & Plan [facility] - ATN Renal function improved close to baseline , UOP good , No labs this am E-lytes stable , UA unremarkable , Supportive care , strict I/O, Avoid nephrotoxins , CKD stage 2- Baseline Cr probably 1.2 with [facility] in 2017 Anemia- per primary Acute hypoxemic respiratory failure secondary to septic shock, source unknown CoVid 19 negative Encephalopathy- suspected suicidal attempt with insulin Abnormal chest x-ray Septic Shock Diabetes mellitus History of cerebrovascular accident. Lower extremity edema. COMMENT/RELEVANT DATA Meds Current Medications Medications (Trade) Dose Ordered Sig/Serenity Start Time Stop Time Status Last Admin Dose Admin Albumin Human 250 ml @ 62.5 mls/hr 1X ONCE 01/16/20 11:15 01/16/20 15:14 DC 01/16/20 11:33 62.5 MLS/HR Aspirin (Omkar Aspirin) 325 mg DAILYWBKFT 01/17/20 08:00 01/17/20 09:23 DC Aspirin (Ecotrin) 81 mg DAILYWBKFT 01/16/20 08:00 01/18/20 08:24 81 MG Atorvastatin Calcium (Lipitor) 20 mg QHS 01/16/20 21:00 01/16/20 12:45 DC Chlorhexidine Gluconate (Peridex) 15 ml BID 01/13/20 21:00 01/16/20 19:23 DC 01/16/20 08:59 15 ML Dextrose (Dextrose 50%-Water Syringe) 12.5 gm PRN Q15MIN PRN 01/16/20 12:45 Enoxaparin Sodium (Lovenox 40mg Syringe) 40 mg QHS 01/14/20 02:15 01/17/20 20:48 40 MG Enoxaparin Sodium (Lovenox Per Pharmacy Prophylaxis Dosing) 1 each PRN DAILY PRN 01/14/20 02:00 Etomidate (Amidate) 20 mg 1X ONCE 01/13/20 19:00 01/13/20 19:25 DC 01/13/20 19:52 20 MG Fentanyl Citrate 30 ml @ 0 mls/hr CONT PRN 01/14/20 16:00 01/17/20 12:18 DC 01/16/20 09:12 2.5 MLS/HR Fentanyl Citrate (Fentanyl 2ml Vial) 50 mcg PRN Q1HR PRN 01/13/20 18:45 01/16/20 19:23 DC 01/16/20 17:12 50 MCG Glucagon (Glucagen) 1 mg PRN Q15MIN PRN 01/14/20 09:30 01/15/20 04:12 1 MG Haloperidol Lactate (Haldol Inj) 5 mg 1X ONCE 01/16/20 18:00 01/16/20 18:01 DC 01/16/20 18:00 5 MG Insulin Glargine (Lantus Syringe) 20 unit QHS 01/16/20 21:00 01/17/20 20:54 20 UNIT Insulin Human Lispro (HumaLOG) 0-7 UNITS TIDWMEALS 01/16/20 17:00 01/18/20 08:30 3 UNITS Insulin Human Regular (HumuLIN R VIAL) 12 unit 1X ONCE 01/13/20 19:45 01/13/20 19:46 DC 01/13/20 19:45 12 UNIT Levofloxacin/ Dextrose 150 ml @ 100 mls/hr 1X ONCE 01/13/20 21:00 01/13/20 22:29 DC 01/13/20 21:05 100 MLS/HR Magnesium Sulfate 50 ml @ 25 mls/hr 1X ONCE 01/13/20 19:45 01/13/20 21:44 DC 01/14/20 01:11 25 MLS/HR Midazolam HCl 100 ml @ 0 mls/hr CONT PRN 01/13/20 22:15 8/5/20 12:18 DC 01/16/20 08:45 5 MLS/HR Midazolam HCl (Versed) 5 mg PRN Q1HR PRN 01/13/20 18:45 01/17/20 09:00 DC 01/13/20 19:53 5 MG Naloxone HCl (Narcan) 0.4 mg PRN Q2MIN PRN 01/14/20 16:00 Norepinephrine Bitartrate 32 mg/ Dextrose 250 ml @ 5.484 mls/ hr CONT PRN 01/14/20 07:45 01/17/20 12:18 DC 01/16/20 00:29 9.872 MLS/HR Norepinephrine Bitartrate 8 mg/ Dextrose 258 ml @ 22.678 mls/ hr CONT PRN 01/14/20 02:45 01/14/20 09:00 DC 01/14/20 02:42 32.9 MLS/HR Ondansetron HCl (Zofran) 4 mg PRN Q8HRS PRN 01/13/20 20:45 01/14/20 20:44 DC Pantoprazole Sodium (PROTONIX VIAL for IV PUSH) 40 mg DAILYAC 01/14/20 13:00 01/18/20 08:24 40 MG Piperacillin Sod/ Tazobactam Sod 4.5 gm/Sodium Chloride 100 ml @ 200 mls/hr Q6HRS 01/15/20 16:00 01/18/20 06:03 200 MLS/HR Potassium Chloride 20 meq/ Dextrose/Sodium Chloride 1,010 ml @ 85 mls/hr [id number] 01/14/20 02:00 UNV Potassium Chloride/Dextrose/ Sod Cl 1,000 ml @ 85 mls/hr [id number] 01/14/20 02:15 01/14/20 21:20 DC 01/14/20 14:19 85 MLS/HR Potassium Chloride/Water 100 ml @ 100 mls/hr Q1H 01/14/20 11:00 01/14/20 14:59 DC 01/14/20 14:19 100 MLS/HR Rocuronium [place] (Zemuron) 50 mg 1X ONCE 01/13/20 19:00 01/13/20 19:25 DC 01/13/20 19:52 50 MG Sodium Bicarbonate (Sodium Bicarb Adult 8.4% Syr) 50 meq STK-MED ONCE 01/16/20 14:11 01/16/20 14:12 DC Sodium Chloride 1,000 ml @ 75 mls/hr 1X ONCE 01/16/20 16:45 01/17/20 06:04 DC 01/16/20 17:07 75 MLS/HR Vancomycin HCl (Vanco Per Pharmacy) 1 each PRN DAILY PRN 01/13/20 19:45 01/17/20 09:49 1 EACH Vancomycin HCl (Vancomycin Trough Level) 1 each 1X ONCE 01/16/20 22:30 01/16/20 22:31 DC 01/16/20 22:30 1 EACH Vancomycin HCl 1.75 gm/Sodium Chloride 500 ml @ 250 mls/hr Q18H 01/14/20 17:00 Cancel Vancomycin HCl 2 gm/Sodium Chloride 500 ml @ 250 mls/hr Q24H 01/14/20 23:00 01/17/20 23:39 250 MLS/HR Vasopressin 20 unit/Dextrose 101 ml @ 12 mls/hr CONT PRN 01/14/20 09:45 01/17/20 12:18 DC Lab Laboratory Tests Test 01/17/20 11:50 01/17/20 17:49 01/17/20 19:50 01/18/20 06:55 Glucose (Fingerstick) 184 mg/dL (70-99) 250 mg/dL (70-99) 228 mg/dL (70-99) 180 mg/dL (70-99) Results All relevant outside records, renal labs, imaging studies, telemetry/EKG's were reviewed. Justicifation of Admission Dx: Justifications for Admission: Justification of Admission Dx: Yes Aspiration Pneumonia: Hemodynamic Instability Sepsis: Altered Mental Status Altered Mental Status: Altered Mental Status SVITLANA FELIZ MD Jan 18, 2020 11:28
--- NOTE | 2020-01-18 12:10 | NUR ---
SS following up with discharge planning. SS reviewed pt chart and discussed with pt RN and Darren. Pt was declined at [facility] and [facility]. Darren met with pt and referral was sent to [facility], . Pt accepted at [facility]. Bed available today. Dr. Jose notified and SS requested discharge orders. SS currently awaiting orders and will schedule transportation. Pt will go to bed# 520 Bed A at the [facility]. Pt's RN notified. SS will continue to follow for discharge planning.
--- NOTE | 2020-01-18 13:40 | PDOC ---
PROGRESS NOTES Assessment Problems Medical Problems: (1) Acute renal insufficiency Status: Acute (2) Altered mental status Status: Acute (3) Aspiration pneumonia Status: Acute (4) Hyperglycemia Status: Acute (5) Hypomagnesemia Status: Acute (6) Septic shock Status: Acute Admits that he made a suicide attempt,history of suicidal gestures Acute encephalopathy, toxic, resolved Fall Hyperglycemia and hypoglycemia, Respiratory failure, septic shock, acute kidney injury, possible non-ST elevation myocardial infarction History of cerebrovascular accident. Plan Subjective Denies pain Objective Vital Signs Date Time Temp Pulse Resp B/P (MAP) Pulse Ox O2 Delivery O2 Flow Rate FiO2 01/17/20 09:00 93 16 101/61 (74) 100 Room Air 01/17/20 08:00 2.0 01/17/20 07:00 97.6 97.6 Intake and Output 01/17/20 07:00 Intake Total 2475.8 ml Output Total 1670 ml Balance 805.8 ml Intake Oral 0 ml IV Total 1814.8 ml Tube Feeding 261 ml Other 400 ml Output Urine Total 1670 ml Gastric Drainage Total 0 ml PHYSICAL EXAM Plan No additional neurological studies needed Treat medical issues Psychiatric assessment team, psychiatry to follow Neurology signs off Objective Vital Signs Date Time Temp Pulse Resp B/P (MAP) Pulse Ox O2 Delivery O2 Flow Rate FiO2 01/18/20 11:09 98.0 89 20 145/80 (101) 96 Room Air 98.0 01/17/20 20:30 2.0 Intake and Output 01/18/20 07:00 Intake Total 1250 ml Output Total 1010 ml Balance 240 ml Intake Oral 1250 ml Output Urine Total 1010 ml # Bowel Movements 3 PHYSICAL EXAM Alert. Oriented to place and person. PERRL. EOMI. CN: no focal findings. Muscle tone: normal. 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 Sensory exam: no abnormal findings. No cerebellar signs elicited. Review of Relevant I have reviewed the following items lauryn (where applicable) has been applied. Labs Laboratory Tests Test 01/16/20 13:40 01/16/20 13:50 01/16/20 17:30 01/16/20 20:35 Glucose (Fingerstick) 338 mg/dL (70-99) 287 mg/dL (70-99) 255 mg/dL (70-99) O2 Saturation 96 % (92-99) Arterial Blood pH 7.32 (7.35-7.45) Arterial Blood pCO2 at Patient Temp 33 mmHg (35-46) Arterial Blood pO2 at Patient Temp 96 mmHg (65-108) Arterial Blood HCO3 17 mmol/L (21-28) Arterial Blood Base Excess -9 mmol/L (-3-3) FiO2 35 Test 01/16/20 22:05 01/17/20 05:00 01/17/20 11:50 01/17/20 17:49 Vancomycin Level Trough 15.1 mcg/mL (10.0-20.0) Vancomycin Last Dose Date 01/15/2020 Vancomycin Last Dose Time 2300 Sodium Level 142 mmol/L (136-145) Potassium Level 3.8 mmol/L (3.5-5.1) Chloride Level 110 mmol/L (98-107) Carbon Dioxide Level 25 mmol/L (21-32) Anion Gap 7 (6-14) Blood Urea Nitrogen 21 mg/dL (8-26) Creatinine 1.3 mg/dL (0.7-1.3) Estimated GFR (Cockcroft-Gault) 55.2 Glucose Level 219 mg/dL (70-99) Calcium Level 7.7 mg/dL (8.5-10.1) Phosphorus Level 2.1 mg/dL (2.6-4.7) Albumin 2.1 g/dL (3.4-5.0) Glucose (Fingerstick) 184 mg/dL (70-99) 250 mg/dL (70-99) Test 01/17/20 19:50 01/18/20 06:55 01/18/20 11:44 Glucose (Fingerstick) 228 mg/dL (70-99) 180 mg/dL (70-99) 259 mg/dL (70-99) Laboratory Tests Test 01/17/20 17:49 01/17/20 19:50 01/18/20 06:55 01/18/20 11:44 Glucose (Fingerstick) 250 mg/dL (70-99) 228 mg/dL (70-99) 180 mg/dL (70-99) 259 mg/dL (70-99) Microbiology 01/14/20 Blood Culture - Preliminary, Resulted NO GROWTH AFTER 4 DAYS Medications Current Medications Sodium Chloride 1,000 ml @ 1,000 mls/hr 1X ONCE IV Last administered on 01/13/20at 18:20; Start 01/13/20 at 18:45; Stop 01/13/20 at 19:44; Status DC Sodium Chloride 1,000 ml @ 1,000 mls/hr 1X ONCE IV Last administered on 01/13/20at 18:35; Start 01/13/20 at 18:45; Stop 01/13/20 at 19:44; Status DC Fentanyl Citrate (Fentanyl 2ml Vial) 50 mcg PRN Q1HR PRN IV SEE COMMENTS Last administered on 01/16/20at 17:12; Start 01/13/20 at 18:45; Stop 01/16/20 at 19:23; Status DC Chlorhexidine Gluconate (Peridex) 15 ml BID MM Last administered on 01/16/20at 08:59; Start 01/13/20 at 21:00; Stop 01/16/20 at 19:23; Status DC Midazolam HCl (Versed) 5 mg PRN Q1HR PRN IV AGITATION Last administered on 01/13/20at 19:53; Start 01/13/20 at 18:45; Stop 01/17/20 at 09:00; Status DC Etomidate (Amidate) 20 mg STK-MED ONCE IV ; Start 01/13/20 at 18:58; Stop 01/13/20 at 18:59; Status DC Rocuronium [place] (Zemuron) 50 mg STK-MED ONCE .ROUTE ; Start 01/13/20 at 18:59; Stop 01/13/20 at 18:59; Status DC Rocuronium [place] (Zemuron) 50 mg 1X ONCE IV Last administered on 01/13/20at 19:52; Start 01/13/20 at 19:00; Stop 01/13/20 at 19:25; Status DC Etomidate (Amidate) 20 mg 1X ONCE IV Last administered on 01/13/20at 19:52; Start 01/13/20 at 19:00; Stop 01/13/20 at 19:25; Status DC Potassium Chloride/Water 100 ml @ 100 mls/hr Q1H IV Last administered on 01/14/20at 00:34; Start 01/13/20 at 19:15; Stop 01/13/20 at 23:14; Status DC Norepinephrine Bitartrate 8 mg/ Dextrose 258 ml @ 24.633 mls/ hr 1X ONCE IV Last administered on 01/13/20at 19:45; Start 01/13/20 at 19:45; Stop 01/14/20 at 06:13; Status DC Piperacillin Sod/ Tazobactam Sod 4.5 gm/Sodium Chloride 100 ml @ 200 mls/hr 1X ONCE IV Last administered on 01/13/20at 19:45; Start 01/13/20 at 19:45; Stop 01/13/20 at 20:14; Status DC Sodium Chloride 1,000 ml @ 1,000 mls/hr 1X ONCE IV Last administered on 01/13/20at 19:45; Start 01/13/20 at 19:45; Stop 01/13/20 at 20:44; Status DC Levofloxacin/ Dextrose 150 ml @ 100 mls/hr 1X ONCE IV Last administered on 01/13/20at 21:05; Start 01/13/20 at 21:00; Stop 01/13/20 at 22:29; Status DC Vancomycin HCl (Vanco Per Pharmacy) 1 each PRN DAILY PRN MC SEE COMMENTS Last administered on 01/17/20at 09:49; Start 01/13/20 at 19:45 Magnesium Sulfate 50 ml @ 25 mls/hr 1X ONCE IV Last administered on 01/14/20at 01:11; Start 01/13/20 at 19:45; Stop 01/13/20 at 21:44; Status DC Insulin Human Regular (HumuLIN R VIAL) 12 unit 1X ONCE SQ Last administered on 01/13/20at 19:45; Start 01/13/20 at 19:45; Stop 01/13/20 at 19:46; Status DC Ondansetron HCl (Zofran) 4 mg PRN Q8HRS PRN IV NAUSEA/VOMITING; Start 01/13/20 at 20:45; Stop 01/14/20 at 20:44; Status DC Insulin Human Lispro (HumaLOG) 0-5 UNITS TIDWMEALS SQ Last administered on 01/16/20at 08:43; Start 01/14/20 at 08:00; Stop 01/16/20 at 12:43; Status DC Dextrose (Dextrose 50%-Water Syringe) 12.5 gm PRN Q15MIN PRN IV SEE COMMENTS Last administered on 01/15/20at 00:41; Start 01/13/20 at 20:45; Stop 01/17/20 at 09:01; Status DC Sodium Chloride 1,000 ml @ 100 mls/hr 1X ONCE IV Last administered on 01/13/20at 21:10; Start 01/13/20 at 20:45; Stop 01/14/20 at 06:44; Status DC Vancomycin HCl 2 gm/Sodium Chloride 500 ml @ 250 mls/hr 1X ONCE IV Last administered on 01/13/20at 22:59; Start 01/13/20 at 21:00; Stop 01/13/20 at 22:59; Status DC Midazolam HCl 100 ml @ 0 mls/hr CONT PRN IV SEE PROTOCOL Last administered on 01/16/20at 08:45; Start 01/13/20 at 22:15; Stop 01/17/20 at 12:18; Status DC Vancomycin HCl 2 gm/Sodium Chloride 500 ml @ 250 mls/hr Q24H IV Last administered on 01/17/20at 23:39; Start 01/14/20 at 23:00 Vancomycin HCl (Vancomycin Trough Level) 1 each 1X ONCE MC Last administered on 01/15/20at 22:30; Start 01/15/20 at 22:30; Stop 01/15/20 at 22:31; Status DC Enoxaparin Sodium (Lovenox Per Pharmacy Prophylaxis Dosing) 1 each PRN DAILY PRN MC SEE COMMENTS; Start 01/14/20 at 02:00 Potassium Chloride 20 meq/ Dextrose/Sodium Chloride 1,010 ml @ 85 mls/hr [id number] IV ; Start 01/14/20 at 02:00; Status UNV Potassium Chloride/Dextrose/ Sod Cl 1,000 ml @ 85 mls/hr [id number] IV Last administered on 01/14/20at 14:19; Start 01/14/20 at 02:15; Stop 01/14/20 at 21:20; Status DC Enoxaparin Sodium (Lovenox 40mg Syringe) 40 mg QHS SQ Last administered on 01/17/20at 20:48; Start 01/14/20 at 02:15 Norepinephrine Bitartrate 8 mg/ Dextrose 258 ml @ 22.678 mls/ hr CONT PRN IV PER PROTOCOL Last administered on 01/14/20at 02:42; Start 01/14/20 at 02:45; Stop 01/14/20 at 09:00; Status DC Norepinephrine Bitartrate 32 mg/ Dextrose 250 ml @ 5.484 mls/ hr CONT PRN IV SEE I/O RECORD Last administered on 01/16/20at 00:29; Start 01/14/20 at 07:45; Stop 01/17/20 at 12:18; Status DC Glucagon (Glucagen) 1 mg PRN Q15MIN PRN IV LOW BLOOD SUGAR Last administered on 01/15/20at 04:12; Start 01/14/20 at 09:30 Vasopressin 20 unit/Dextrose 101 ml @ 12 mls/hr CONT PRN IV SEE I/O RECORD; Start 01/14/20 at 09:45; Stop 01/17/20 at 12:18; Status DC Potassium Chloride/Water 100 ml @ 100 mls/hr Q1H IV Last administered on 01/14/20at 14:19; Start 01/14/20 at 11:00; Stop 01/14/20 at 14:59; Status DC Vancomycin HCl 1.75 gm/Sodium Chloride 500 ml @ 250 mls/hr Q18H IV ; Start 01/14/20 at 17:00; Status Cancel Pantoprazole Sodium (PROTONIX VIAL for IV PUSH) 40 mg DAILYAC IVP Last administered on 01/18/20at 08:24; Start 01/14/20 at 13:00 Fentanyl Citrate 30 ml @ 0 mls/hr CONT PRN IV SEE I/O RECORD; Start 01/14/20 at 16:00; Status Cancel Naloxone HCl (Narcan) 0.4 mg PRN Q2MIN PRN IV SEE INSTRUCTIONS; Start 01/14/20 at 16:00 Sodium Chloride 1,000 ml @ 25 mls/hr Q24H IV Last administered on 01/17/20at 11:30; Start 01/14/20 at 15:52 Fentanyl Citrate 30 ml @ 0 mls/hr CONT PRN IV SEE PROTOCOL Last administered on 01/16/20at 09:12; Start 01/14/20 at 16:00; Stop 01/17/20 at 12:18; Status DC Dextrose 1,000 ml @ 75 mls/hr [id number] IV Last administered on 01/15/20at 11:15; Start 01/14/20 at 21:30; Stop 01/15/20 at 15:50; Status DC Sodium Chloride 1,000 ml @ 1,000 mls/hr 1X ONCE IV Last administered on 01/15/20at 09:48; Start 01/15/20 at 09:45; Stop 01/15/20 at 10:44; Status DC Sodium Chloride 500 ml @ 500 mls/hr 1X ONCE IV Last administered on 01/15/20at 12:30; Start 01/15/20 at 12:30; Stop 01/15/20 at 13:29; Status DC Piperacillin Sod/ Tazobactam Sod 4.5 gm/Sodium Chloride 100 ml @ 200 mls/hr Q6HRS IV Last administered on 01/18/20at 12:51; Start 01/15/20 at 16:00 Aspirin (Ecotrin) 81 mg DAILYWBKFT PO Last administered on 01/18/20at 08:24; Start 01/16/20 at 08:00 Albumin Human 250 ml @ 62.5 mls/hr 1X ONCE IV Last administered on 01/16/20at 11:33; Start 01/16/20 at 11:15; Stop 01/16/20 at 15:14; Status DC Aspirin (Omkar Aspirin) 325 mg DAILYWBKFT PO ; Start 01/17/20 at 08:00; Stop 01/17/20 at 09:23; Status DC Atorvastatin Calcium (Lipitor) 20 mg QHS PO ; Start 01/16/20 at 21:00; Stop 01/16/20 at 12:45; Status DC Insulin Glargine (Lantus Syringe) 20 unit QHS SQ Last administered on 01/17/20at 20:54; Start 01/16/20 at 21:00 Insulin Human Lispro (HumaLOG) 0-7 UNITS TIDWMEALS SQ Last administered on 01/18/20at 12:55; Start 01/16/20 at 17:00 Dextrose (Dextrose 50%-Water Syringe) 12.5 gm PRN Q15MIN PRN IV SEE COMMENTS; Start 01/16/20 at 12:45 Sodium Bicarbonate (Sodium Bicarb Adult 8.4% Syr) 50 meq 1X ONCE IV Last administered on 01/16/20at 14:13; Start 01/16/20 at 14:15; Stop 01/16/20 at 14:16; Status DC Sodium Bicarbonate (Sodium Bicarb Adult 8.4% Syr) 50 meq 1X ONCE IV Last administered on 01/16/20at 14:13; Start 01/16/20 at 14:15; Stop 01/16/20 at 14:16; Status DC Sodium Bicarbonate (Sodium Bicarb Adult 8.4% Syr) 50 meq STK-MED ONCE .ROUTE ; Start 01/16/20 at 14:11; Stop 01/16/20 at 14:12; Status DC Sodium Chloride 1,000 ml @ 75 mls/hr 1X ONCE IV Last administered on 01/16/20at 17:07; Start 01/16/20 at 16:45; Stop 01/17/20 at 06:04; Status DC Vancomycin HCl (Vancomycin Trough Level) 1 each 1X ONCE MC Last administered on 01/16/20at 22:30; Start 01/16/20 at 22:30; Stop 01/16/20 at 22:31; Status DC Haloperidol Lactate (Haldol Inj) 5 mg PRN Q6HRS PRN IVP AGITATION Last administered on 01/18/20at 03:52; Start 01/16/20 at 18:00 Haloperidol Lactate (Haldol Inj) 5 mg 1X ONCE IVP Last administered on 01/16/20at 18:00; Start 01/16/20 at 18:00; Stop 01/16/20 at 18:01; Status DC Active Scripts Active Aspirin 325 Mg Tablet 325 Mg PO DAILYWBKFT 30 Days Atorvastatin Calcium 20 Mg Tablet 20 Mg PO QHS 30 Days Reported Trazodone Hcl 50 Mg Tablet 1 Tab PO QHS Celexa (Citalopram Hydrobromide) 10 Mg Tablet 1 Tab PO DAILY Lantus Solostar (Insulin Glargine,Hum.rec.anlog) 100 Unit/1 Ml Insuln.pen 65 Unit SQ QHS Gabapentin (Gabapentin) 300 Mg Capsule 300 Mg PO TID Nexium Capsule (Esomeprazole Magnesium) 20 Mg Capsule. 1 Cap PO DAILY Actos (Pioglitazone Hcl) 30 Mg Tablet 30 Mg PO DAILY Metformin Hcl 500 Mg Tablet 500 Mg PO BIDWMEALS Vitals/I & O Vital Sign - Last 24 Hours 01/17/20 01/17/20 01/17/20 01/17/20 16:00 16:00 19:12 20:30 Temp 97.9 98.0 97.9 98.0 Pulse 97 101 Resp 30 24 B/P (MAP) 123/76 (92) 114/61 (78) Pulse Ox 97 96 O2 Delivery Room Air Nasal Cannula Room Air Nasal Cannula O2 Flow Rate 2.0 2.0 01/17/20 01/18/20 01/18/20 01/18/20 23:03 03:48 07:13 08:00 Temp 97.5 98.1 97.5 97.5 98.1 97.5 Pulse 98 93 91 Resp 26 22 22 B/P (MAP) 109/59 (76) 138/77 (97) 168/87 (114) Pulse Ox 92 95 98 O2 Delivery Room Air Room Air Room Air Room Air 01/18/20 11:09 Temp 98.0 98.0 Pulse 89 Resp 20 B/P (MAP) 145/80 (101) Pulse Ox 96 O2 Delivery Room Air Intake and Output 01/17/20 01/17/20 01/18/20 15:00 23:00 07:00 Intake Total 50 ml 240 ml 960 ml Output Total 260 ml 375 ml 375 ml Balance -210 ml -135 ml 585 ml Justicifation of Admission Dx: Justifications for Admission: Justification of Admission Dx: Yes Aspiration Pneumonia: Hemodynamic Instability Sepsis: Altered Mental Status Altered Mental Status: Altered Mental Status YAZ ESCOBEDO MD Jan 18, 2020 13:40
--- NOTE | 2020-01-18 13:48 | NUR ---
SS following up with discharge planning. Pt refusing to go to [facility]. Pt reporting that he will now only go to [facility]. SS contacted [facility] and was notified that they are not taking admissions at this time and most likely would not have a bed until next week. Pt notified and adamantly refused any other placement other than [facility]. SS notified Darren from PAT team. May need to start involuntary placement referral. SS will continue to follow for discharge planning.
[2020-01-18 15:18] VITALS: BP 139/78
--- NOTE | 2020-01-18 16:01 | RAD ---
CHEST AP ONLY History: Reason: pneumonia / Spl. Instructions: / History: Comparison: January 15, 2020 Findings: Decreased patchy bibasilar opacities. No pleural effusion. No pneumothorax. Stable right IJ central line. Interval extubation and removal of enteric tube. Unchanged heart size. Impression: 1. Decreased patchy bibasilar opacities. Electronically signed by: Daniel Ye DO (01/18/2020 3:58 PM) [id number]
[2020-01-18 19:03] VITALS: BP 149/80
[2020-01-18] MEDS: ENOXAPARIN 40 MG/0.4 ML SYRINGE. SQ SCH (20:50)
[2020-01-18] MEDS: INSULIN GLARGINE SYRINGE. SQ SCH (20:54)
[2020-01-18] MEDS: VANCOMYCIN 2 GM in IV NORMAL SALINE 500ML BAG 500 ML IV SCH (23:05)
[2020-01-18 23:23] VITALS: BP 163/100
[2020-01-19] VITALS (7 sets, daily range): BP systolic 123–177; BP diastolic 69–113
--- NOTE | 2020-01-19 00:01 | PDOC ---
F/U PHYSCH PROG NOTE Subjective: Gentleman is seen for routine follow-up. Progress is reviewed with nursing staff. Except for concrete thinking process and some arguments, no major emotional or behavioral breakdown reported. Stating, he is not going to [facility] or [place] for placement. He is willing to sign voluntary for [facility]. However since patient is a special need for full-time nursing care as he is not able to perform his ADLs we will verify the criteria from [facility]. Denies suicidal or homicidal thoughts. Denies auditory or visual hallucinations. No evidence of russell or hypomania. Continues to be depressed and anxious. Will consider restarting Zoloft. Objective: 14 point review of system is otherwise negative except for stated above. Vital Signs: Vital Signs Date Time Temp Pulse Resp B/P (MAP) Pulse Ox O2 Delivery O2 Flow Rate FiO2 01/18/20 23:23 97.9 104 20 163/100 (121) 92 Room Air 2.0 97.9 Labs: Laboratory Tests Test 01/18/20 06:55 01/18/20 11:44 01/18/20 16:56 01/18/20 20:27 Glucose (Fingerstick) 180 mg/dL (70-99) H 259 mg/dL (70-99) H 267 mg/dL (70-99) H 232 mg/dL (70-99) H Medications: Current Medications Medications (Trade) Dose Ordered Sig/Serenity Start Time Stop Time Status Last Admin Dose Admin Albumin Human 250 ml @ 62.5 mls/hr 1X ONCE 01/16/20 11:15 01/16/20 15:14 DC 01/16/20 11:33 62.5 MLS/HR Aspirin (Omkar Aspirin) 325 mg DAILYWBKFT 01/17/20 08:00 01/17/20 09:23 DC Aspirin (Ecotrin) 81 mg DAILYWBKFT 01/16/20 08:00 01/18/20 08:24 81 MG Atorvastatin Calcium (Lipitor) 20 mg QHS 01/16/20 21:00 01/16/20 12:45 DC Chlorhexidine Gluconate (Peridex) 15 ml BID 01/13/20 21:00 01/16/20 19:23 DC 01/16/20 08:59 15 ML Dextrose (Dextrose 50%-Water Syringe) 12.5 gm PRN Q15MIN PRN 01/16/20 12:45 Enoxaparin Sodium (Lovenox 40mg Syringe) 40 mg QHS 01/14/20 02:15 01/18/20 20:50 40 MG Enoxaparin Sodium (Lovenox Per Pharmacy Prophylaxis Dosing) 1 each PRN DAILY PRN 01/14/20 02:00 Etomidate (Amidate) 20 mg 1X ONCE 01/13/20 19:00 01/13/20 19:25 DC 01/13/20 19:52 20 MG Fentanyl Citrate 30 ml @ 0 mls/hr CONT PRN 01/14/20 16:00 01/17/20 12:18 DC 01/16/20 09:12 2.5 MLS/HR Fentanyl Citrate (Fentanyl 2ml Vial) 50 mcg PRN Q1HR PRN 01/13/20 18:45 01/16/20 19:23 DC 01/16/20 17:12 50 MCG Glucagon (Glucagen) 1 mg PRN Q15MIN PRN 01/14/20 09:30 01/15/20 04:12 1 MG Haloperidol Lactate (Haldol Inj) 5 mg 1X ONCE 01/16/20 18:00 01/16/20 18:01 DC 01/16/20 18:00 5 MG Insulin Glargine (Lantus Syringe) 20 unit QHS 01/16/20 21:00 01/18/20 20:54 20 UNIT Insulin Human Lispro (HumaLOG) 0-7 UNITS TIDWMEALS 01/16/20 17:00 01/18/20 17:03 6 UNITS Insulin Human Regular (HumuLIN R VIAL) 12 unit 1X ONCE 01/13/20 19:45 01/13/20 19:46 DC 01/13/20 19:45 12 UNIT Levofloxacin/ Dextrose 150 ml @ 100 mls/hr 1X ONCE 01/13/20 21:00 01/13/20 22:29 DC 01/13/20 21:05 100 MLS/HR Magnesium Sulfate 50 ml @ 25 mls/hr 1X ONCE 01/13/20 19:45 01/13/20 21:44 DC 01/14/20 01:11 25 MLS/HR Midazolam HCl 100 ml @ 0 mls/hr CONT PRN 01/13/20 22:15 01/17/20 12:18 DC 01/16/20 08:45 5 MLS/HR Midazolam HCl (Versed) 5 mg PRN Q1HR PRN 01/13/20 18:45 01/17/20 09:00 DC 01/13/20 19:53 5 MG Naloxone HCl (Narcan) 0.4 mg PRN Q2MIN PRN 01/14/20 16:00 Norepinephrine Bitartrate 32 mg/ Dextrose 250 ml @ 5.484 mls/ hr CONT PRN 01/14/20 07:45 01/17/20 12:18 DC 01/16/20 00:29 9.872 MLS/HR Norepinephrine Bitartrate 8 mg/ Dextrose 258 ml @ 22.678 mls/ hr CONT PRN 01/14/20 02:45 01/14/20 09:00 DC 01/14/20 02:42 32.9 MLS/HR Ondansetron HCl (Zofran) 4 mg PRN Q8HRS PRN 01/13/20 20:45 01/14/20 20:44 DC Pantoprazole Sodium (PROTONIX VIAL for IV PUSH) 40 mg DAILYAC 01/14/20 13:00 01/18/20 08:24 40 MG Piperacillin Sod/ Tazobactam Sod 4.5 gm/Sodium Chloride 100 ml @ 200 mls/hr Q6HRS 01/15/20 16:00 01/18/20 17:01 200 MLS/HR Potassium Chloride 20 meq/ Dextrose/Sodium Chloride 1,010 ml @ 85 mls/hr [id number] 01/14/20 02:00 UNV Potassium Chloride/Dextrose/ Sod Cl 1,000 ml @ 85 mls/hr [id number] 01/14/20 02:15 01/14/20 21:20 DC 01/14/20 14:19 85 MLS/HR Potassium Chloride/Water 100 ml @ 100 mls/hr Q1H 01/14/20 11:00 01/14/20 14:59 DC 01/14/20 14:19 100 MLS/HR Rocuronium [place] (Zemuron) 50 mg 1X ONCE 01/13/20 19:00 01/13/20 19:25 DC 01/13/20 19:52 50 MG Sodium Bicarbonate (Sodium Bicarb Adult 8.4% Syr) 50 meq STK-MED ONCE 01/16/20 14:11 01/16/20 14:12 DC Sodium Chloride 1,000 ml @ 75 mls/hr 1X ONCE 01/16/20 16:45 01/17/20 06:04 DC 01/16/20 17:07 75 MLS/HR Vancomycin HCl (Vanco Per Pharmacy) 1 each PRN DAILY PRN 01/13/20 19:45 01/17/20 09:49 1 EACH Vancomycin HCl (Vancomycin Trough Level) 1 each 1X ONCE 01/16/20 22:30 01/16/20 22:31 DC 01/16/20 22:30 1 EACH Vancomycin HCl 1.75 gm/Sodium Chloride 500 ml @ 250 mls/hr Q18H 01/14/20 17:00 Cancel Vancomycin HCl 2 gm/Sodium Chloride 500 ml @ 250 mls/hr Q24H 01/14/20 23:00 01/18/20 23:05 250 MLS/HR Vasopressin 20 unit/Dextrose 101 ml @ 12 mls/hr CONT PRN 01/14/20 09:45 01/17/20 12:18 DC Physical Exam: Mental Status Exam: Obese gentleman, appears as a stated age Confused and not very cooperative Disoriented Thought processes concrete Denies auditory or visual hallucinations. Denies suicidal or homicidal thoughts Mood is dysphoric Affect is dysthymic Insight is limited Judgment is limited Impulse control is poor Attention span and concentration impaired Recent and remote memory impaired Physical Exam: Refer to Physician's note. STEEL CHECKER: No focal deficit MSK: No EPS, TDK, or abnormal involuntary movements Diagnosis: 1 acute delirium, multifactorial, mixed hyperactive and hypoactive 2. Presumably a suicidal attempt by intentional overdose 3. Major depressive disorder, recurrent, severe Assessment: He is a gentleman with previous history of intentional overdose readmitted with same circumstances of intentional overdose and found unresponsive by his neighbor. Apparently, he is trying to downplay with the severity of the situation and using his defenses. However, circumstances led to admission and history are consistent with of suicidal attempt in context of his ongoing depression, multiple medical health problems, and recent of his daughter by suicide overdose. Agitation, and confusion will give him temporary antipsychotics to calm him down. Antipsychotic will also help in resolution of delirium. Will obtain collateral information as well. 01/18/2020. Today, he appears a lot more clear with respect to mentation and mental status. However, concrete did not want to go to [facility] or change use of for placement. He is in agreement to go to [facility]. He is willing to sign voluntary for [facility]. Will check the status and criteria with [facility] as patient needs full nursing care and not able to perform ADLs on its own. Plan: 1 Continue Haldol 5 mg at bedtime for agitation and confusion. 2 Haldol 5 mg every 6 hourly as needed for agitation and psychosis. 3. Risks, benefits, alternatives of the treatment are discussed. 4. Avoid sedatives and hypnotics. Use only in case of severe agitation. 5. Monitor closely for symptomatology, safety, and agitation. Will adjust medications accordingly. 6. Applied delirium protocol. Keep bright sunlight during the day in room. Thank you for involving inpatient care DELONTE STARK MD Jan 19, 2020 00:01
[2020-01-19] MEDS: HALOPERIDOL LACTATE 5 MG/ML VIAL. IVP PRN ×2 (01:05→08:31)
[2020-01-19] MEDS: PIPERACILLIN/TAZOBACTAM 4.5 GM in IV NORMAL SALINE 100ML 100 ML IV SCH ×2 (01:34→06:27)
[2020-01-19] MEDS: INSULIN LISPRO 300 UNITS/3 ML VIAL. SQ SCH ×3 (08:00→16:30)
[2020-01-19 08:25] LABS: BASO % 1 % (0-3); EOS # 0.2 x10^3/uL (0.0-0.7); EOS % 2 % (0-3); HEMATOCRIT 29.2 % (39.0-53.0); HEMOGLOBIN 10.5 g/dL (13.0-17.5); LYMPH # 0.9 x10^3/uL (1.0-4.8); LYMPH % 14 % (24-48); MEAN CORPUSCULAR HEMOGLOBIN 33 pg (25-35); MEAN CORPUSCULAR HGB CONC 36 g/dL (31-37); MEAN CORPUSCULAR VOLUME 91 fL (79-100); MONO # 0.7 x10^3/uL (0.0-1.1); MONO % 11 % (0-9); NEUT % 73 % (31-73); PLATELET COUNT 149 x10^3/uL (140-400); RED BLOOD COUNT 3.22 x10^6/uL (4.30-5.70); RED CELL DISTRIBUTION WIDTH 15.3 % (11.5-14.5); WHITE BLOOD COUNT 6.8 x10^3/uL (4.0-11.0)
[2020-01-19] MEDS: ASPIRIN ENTERIC COATED 81 MG TABLET.DR. PO SCH (08:31)
[2020-01-19] MEDS: PANTOPRAZOLE IV PUSH 40 MG VIAL. IVP SCH (08:31)
[2020-01-19 08:43] LABS: ALBUMIN 2.7 g/dL (3.4-5.0); ALBUMIN/GLOBULIN RATIO 0.8 (1.0-1.7); CALCIUM 8.9 mg/dL (8.5-10.1); CREATININE 1.4 mg/dL (0.7-1.3); GFR 50.7; POTASSIUM 3.5 mmol/L (3.5-5.1); TOTAL BILIRUBIN 0.5 mg/dL (0.2-1.0); TOTAL PROTEIN 6.3 g/dL (6.4-8.2)
--- NOTE | 2020-01-19 08:52 | PDOC ---
Infectious Disease Note Vital Sign Vital Signs Vital Signs Date Time Temp Pulse Resp B/P (MAP) Pulse Ox O2 Delivery O2 Flow Rate FiO2 01/19/20 07:56 98.2 103 22 177/100 (125) 95 Room Air 98.2 01/19/20 02:42 2.0 Labs Lab Laboratory Tests Test 01/18/20 11:44 01/18/20 16:56 01/18/20 20:27 01/19/20 07:05 Glucose (Fingerstick) 259 mg/dL (70-99) 267 mg/dL (70-99) 232 mg/dL (70-99) 198 mg/dL (70-99) Test 01/19/20 08:00 White Blood Count 6.8 x10^3/uL (4.0-11.0) Red Blood Count 3.22 x10^6/uL (4.30-5.70) Hemoglobin 10.5 g/dL (13.0-17.5) Hematocrit 29.2 % (39.0-53.0) Mean Corpuscular Volume 91 fL (79-100) Mean Corpuscular Hemoglobin 33 pg (25-35) Mean Corpuscular Hemoglobin Concent 36 g/dL (31-37) Red Cell Distribution Width 15.3 % (11.5-14.5) Platelet Count 149 x10^3/uL (140-400) Neutrophils (%) (Auto) 73 % (31-73) Lymphocytes (%) (Auto) 14 % (24-48) Monocytes (%) (Auto) 11 % (0-9) Eosinophils (%) (Auto) 2 % (0-3) Basophils (%) (Auto) 1 % (0-3) Neutrophils # (Auto) 5.0 x10^3/uL (1.8-7.7) Lymphocytes # (Auto) 0.9 x10^3/uL (1.0-4.8) Monocytes # (Auto) 0.7 x10^3/uL (0.0-1.1) Eosinophils # (Auto) 0.2 x10^3/uL (0.0-0.7) Basophils # (Auto) 0.0 x10^3/uL (0.0-0.2) Sodium Level 144 mmol/L (136-145) Potassium Level 3.5 mmol/L (3.5-5.1) Chloride Level 110 mmol/L (98-107) Carbon Dioxide Level 19 mmol/L (21-32) Anion Gap 15 (6-14) Blood Urea Nitrogen 15 mg/dL (8-26) Creatinine 1.4 mg/dL (0.7-1.3) Estimated GFR (Cockcroft-Gault) 50.7 BUN/Creatinine Ratio 11 (6-20) Glucose Level 212 mg/dL (70-99) Calcium Level 8.9 mg/dL (8.5-10.1) Total Bilirubin 0.5 mg/dL (0.2-1.0) Aspartate Amino Transf (AST/SGOT) 18 U/L (15-37) Alanine Aminotransferase (ALT/SGPT) 20 U/L (16-63) Alkaline Phosphatase 86 U/L (46-116) Total Protein 6.3 g/dL (6.4-8.2) Albumin 2.7 g/dL (3.4-5.0) Albumin/Globulin Ratio 0.8 (1.0-1.7) Micro Microbiology 01/14/20 Blood Culture - Final, Complete NO GROWTH AFTER 5 DAYS Objective Assessment pt seen, consult dictated Plan Plan of Care / ROLANDO RUIZ MD Jan 19, 2020 08:52
--- NOTE | 2020-01-19 09:29 | CONS ---
DATE OF CONSULTATION: 01/19/2020 REQUESTING PHYSICIAN: Dr. Jose. REASON FOR CONSULTATION: Antibiotic management. HISTORY OF PRESENT ILLNESS: This is a 65-year-old gentleman who originally came in, because he was found down by a neighbor. The patient apparently tried to kill himself by overdosing on insulin and bunch of other medications. The patient required intubation. The patient was successfully extubated, thought to have had aspiration, leukocytosis, was now receiving vancomycin and Zosyn. The patient is alert, awake and appropriate. The patient is feeling better. He is not feeling any depressed and denies any nausea, vomiting. He does have diarrhea and he does have some abdominal pain, i.e., he calls it a gas pain. Other than that, he has no other complaints. There is no fever noted. White count is back to normal. PAST MEDICAL HISTORY: Positive for obesity, diabetes, hypertension, history of stroke, left below-knee amputation, renal insufficiency, obstructive sleep apnea and prior attempts of suicide in the past. SOCIAL HISTORY: Negative for smoking, alcohol or illicit drug use. ALLERGIES: ALLERGIC TO MORPHINE. CURRENT MEDICATIONS: Reviewed. REVIEW OF SYSTEMS: As per HPI, all other systems reviewed and are negative. PHYSICAL EXAMINATION: GENERAL: Alert, oriented gentleman, not in distress. VITAL SIGNS: Stable, afebrile. HEENT: NAD. NECK: Supple, no JVP, no lymphadenopathy. LUNGS: Clear. HEART: S1, S2 regular. ABDOMEN: Benign. EXTREMITIES: No edema, cyanosis. The amp site is unremarkable. The patient does have a central line in the right IJ. SKIN: Unremarkable. NEUROLOGIC: The patient is alert, awake and appropriate. No focal neurologic deficit. LABORATORY DATA: White count is 6.8, platelets are normal. BUN and creatinine 15 and 1.4. Urinalysis unremarkable. COVID was negative. Blood cultures negative. Chest x-ray is actually not showing any definite consolidation. IMPRESSION: 1. Suicidal attempt. 2. Respiratory failure. 3. Leukocytosis. 4. Renal insufficiency. 5. Hypertension. 6. Diabetes. 7. History of stroke. RECOMMENDATIONS: We will discontinue vancomycin, discontinue Zosyn. Do not see the need for any antibiotics. Supportive care. The patient should have a central line removed as soon as it is not needed and the patient can be discharged to the rehabilitation. Thank you very much, Dr. Jose, for giving me the opportunity to participate in this patient's care. ROLANDO RUIZ MD DR: RONALDO/annika JOB#: [id number] / [id number]
--- NOTE | 2020-01-19 09:42 | PDOC ---
PROGRESS NOTES Date of Service: DATE: 01/19/20 TIME: 09:42 Chief Complaint Chief Complaint impression Acute encephalopathy Suicide attempt Fall, found down on kitchen floor. Hyperglycemia and hypoglycemia DM. HTN. HLD. Cancer. Morbid obesity. Left BKA. Acute hypoxemic respiratory failure secondary to septic shock, source unknown, encephalopathy, acute kidney injury, rule out non-ST elevation myocardial infarction versus others. Abnormal chest x-ray. Acute kidney injury - likely vasomotor nephropathy Shock. Obstructive sleep apnea-hypopnea syndrome. History of cerebrovascular accident. Lower extremity edema 01/17 HE STATES HE HAS BEEN VERY DEPRESSED RE 'S HEALTH, Living situation, of daughter 01/18 c/o llq abd discomfort, ct abd, pelvis pending 38 minutes time spent with pt exam, chart review, > 50% of time spent with exam, chart review, pt care coordination History of Present Illness History of Present Illness He is a gentleman with multiple medical comorbidities and previous history of suicidal attempt brought in by his neighbor when he was found unresponsive by him. He has history of previous suicide attempt with same circumstances. At that point, he presumably took overdose of insulin. Patient was intubated, and extubated today. Upon interview, he is responsive but confused. Continue to ruminate that he wanted to talk to his neighbor. He appears paranoid, when asked about intentions of overdose to take his life, he appears little bit upset and telling that he has the right to know who said it was an intentional overdose. He categorically denies that it was something intentional. He is portraying it as an accidental overdose. Denies divert depression and anxiety. Skeptical why he is labeled as a suicide attempt. Denies any intent or plan. He is upset that why is everyone judgmental however he is told that no one is judging him. Questions were being asked only for safety concern. Patient wanting to talk to his neighbor and asking software writer to call contact his neighbor right away. He is restless, argumentative, and verbally agitated. Also wanting to talk to his . Due to patient's limited insight, he is not communicating effectively. Reviewed H&P by this software writer from previous admission and read as: He is a pleasant gentleman admitted with intentional overdose on his prescribed insulin found unresponsive due to severe hypoglycemia. Reportedly, he overdosed with intentions to take his life. Reportedly, 2 weeks ago his 34-year-old daughter committed suicide by overdose. Upon interview he appears cooperative and interactive. States, 2 weeks ago his daughter who was living with him committed suicide by overdose. States, he found his daughter pulseless and cold. States, due to the stress of her and grief he was not processing and right direction. States, he was in deep grief and sad. , his whom he for 39 years as hospitalized as well for hip replacement. However, he appears insightful, cognizant of the fact that "I made a stupid mistake which I shouldn't, and I apologize". States, he is adi in God and would like to do anything in future to harm her . States, when he spoke to his and told her that he was hospitalized for intentional overdose, she got very upset and scared. He is, he knows that "my doctors are in having and God will take care of it". He denies depression and treatment of depression. Chart review, indicates history of depression and reported medications citalopram 40 mg daily. When asked from patient, he couldn't recall diagnoses of depression or citalopram. States, he has learned his lesson. He denies hopelessness, insomnia, extremely sad mood, worthlessness, or loss of interest. He denies suicidal or homicidal thoughts intent or plan. He denies previous suicidal attempt or history of recurrent suicidal ideation, except for the last few days prior to attempts. He denies history of overt depression or anxiety, illicit substance use, bipolar mood disorder, psychosis, or PTSD. , is 24 years old daughter was with interstitial lung disease in 2004. Denies nightmares, flashbacks or chronic bereavement. He denies access to firearms. Mr Soliz is a 65 yo M w/ PMHx diabetes type 2, depression, dyslipidemia, hypertension, CVA, PVD s/p left BKA who comes to the hospital due to being found unresponsive by his neighbor. Patient has had suicide attempts in the past. There is possible concerns of empty pill bottles and insulin OD. History is obtained from ED physician charting and chart review. 01/14: ICU requiring high dose levophed and fluid boluses as well as vent. CXR reviewed with left middle platelike atelectasis. CT head did negative for acute findings. Afebrile. Hypoglycemic overnight started on D10 infusion. WBC 17 K Hb 10.40.8, glucose 80, mag 1.8, TSH 0.160. 01/15: Afebrile overnight. Vent 35% and PEEP of 5, and off sedation today. Still on low-dose Levophed. Not waking up very well. Labs stable glucose in the 200s. 01/17 await placement Afebrile. On room air . Was extubated late on 01/16/2020. Labs stable hemodynamically stable. He does admit to attempting suicide to me today notes after that suicide of his daughter and of his other daughter he has had suicidal thoughts for quite a while and due to the worsening health of his who had an infected hip arthroplasty and is now wheelchair-bound and the $300,000 each of them individually O and healthcare bills he felt hopeless and attempted to kill himself so that he could be with his daughters, he still feels hopeless at this time and still plans to be with his daughters in any way possible. He understands that inpatient psychiatric care would be appropriate and he is currently amenable to this, he wants to know if there is a better solution. Plan: We will wean O2 as tolerated Continue one-to-one sitter Psychiatry and PAT team to see Needs inpatient psych placement medical surgical floor Vitals Vitals Vital Signs Date Time Temp Pulse Resp B/P (MAP) Pulse Ox O2 Delivery O2 Flow Rate FiO2 01/19/20 07:56 98.2 103 22 177/100 (125) 95 Room Air 98.2 01/19/20 02:42 2.0 Physical Exam General: Alert, Oriented X3, Cooperative, No acute distress Heart: Regular rate Lungs: Clear Abdomen: Normal bowel sounds Skin: No rashes Labs LABS Laboratory Tests Test 01/18/20 11:44 01/18/20 16:56 01/18/20 20:27 01/19/20 07:05 Glucose (Fingerstick) 259 mg/dL (70-99) 267 mg/dL (70-99) 232 mg/dL (70-99) 198 mg/dL (70-99) Test 01/19/20 08:00 White Blood Count 6.8 x10^3/uL (4.0-11.0) Red Blood Count 3.22 x10^6/uL (4.30-5.70) Hemoglobin 10.5 g/dL (13.0-17.5) Hematocrit 29.2 % (39.0-53.0) Mean Corpuscular Volume 91 fL (79-100) Mean Corpuscular Hemoglobin 33 pg (25-35) Mean Corpuscular Hemoglobin Concent 36 g/dL (31-37) Red Cell Distribution Width 15.3 % (11.5-14.5) Platelet Count 149 x10^3/uL (140-400) Neutrophils (%) (Auto) 73 % (31-73) Lymphocytes (%) (Auto) 14 % (24-48) Monocytes (%) (Auto) 11 % (0-9) Eosinophils (%) (Auto) 2 % (0-3) Basophils (%) (Auto) 1 % (0-3) Neutrophils # (Auto) 5.0 x10^3/uL (1.8-7.7) Lymphocytes # (Auto) 0.9 x10^3/uL (1.0-4.8) Monocytes # (Auto) 0.7 x10^3/uL (0.0-1.1) Eosinophils # (Auto) 0.2 x10^3/uL (0.0-0.7) Basophils # (Auto) 0.0 x10^3/uL (0.0-0.2) Sodium Level 144 mmol/L (136-145) Potassium Level 3.5 mmol/L (3.5-5.1) Chloride Level 110 mmol/L (98-107) Carbon Dioxide Level 19 mmol/L (21-32) Anion Gap 15 (6-14) Blood Urea Nitrogen 15 mg/dL (8-26) Creatinine 1.4 mg/dL (0.7-1.3) Estimated GFR (Cockcroft-Gault) 50.7 BUN/Creatinine Ratio 11 (6-20) Glucose Level 212 mg/dL (70-99) Calcium Level 8.9 mg/dL (8.5-10.1) Total Bilirubin 0.5 mg/dL (0.2-1.0) Aspartate Amino Transf (AST/SGOT) 18 U/L (15-37) Alanine Aminotransferase (ALT/SGPT) 20 U/L (16-63) Alkaline Phosphatase 86 U/L (46-116) Total Protein 6.3 g/dL (6.4-8.2) Albumin 2.7 g/dL (3.4-5.0) Albumin/Globulin Ratio 0.8 (1.0-1.7) Assessment and Plan Assessmemt and Plan Problems Medical Problems: (1) Acute renal insufficiency Status: Acute (2) Altered mental status Status: Acute (3) Aspiration pneumonia Status: Acute (4) Hyperglycemia Status: Acute (5) Hypomagnesemia Status: Acute (6) Septic shock Status: Acute Comment Review of Relevant I have reviewed the following items lauryn (where applicable) has been applied. Labs Laboratory Tests Test 01/17/20 11:50 01/17/20 17:49 01/17/20 19:50 01/18/20 06:55 Glucose (Fingerstick) 184 mg/dL (70-99) 250 mg/dL (70-99) 228 mg/dL (70-99) 180 mg/dL (70-99) Test 01/18/20 11:44 01/18/20 16:56 01/18/20 20:27 01/19/20 07:05 Glucose (Fingerstick) 259 mg/dL (70-99) 267 mg/dL (70-99) 232 mg/dL (70-99) 198 mg/dL (70-99) Test 01/19/20 08:00 White Blood Count 6.8 x10^3/uL (4.0-11.0) Red Blood Count 3.22 x10^6/uL (4.30-5.70) Hemoglobin 10.5 g/dL (13.0-17.5) Hematocrit 29.2 % (39.0-53.0) Mean Corpuscular Volume 91 fL (79-100) Mean Corpuscular Hemoglobin 33 pg (25-35) Mean Corpuscular Hemoglobin Concent 36 g/dL (31-37) Red Cell Distribution Width 15.3 % (11.5-14.5) Platelet Count 149 x10^3/uL (140-400) Neutrophils (%) (Auto) 73 % (31-73) Lymphocytes (%) (Auto) 14 % (24-48) Monocytes (%) (Auto) 11 % (0-9) Eosinophils (%) (Auto) 2 % (0-3) Basophils (%) (Auto) 1 % (0-3) Neutrophils # (Auto) 5.0 x10^3/uL (1.8-7.7) Lymphocytes # (Auto) 0.9 x10^3/uL (1.0-4.8) Monocytes # (Auto) 0.7 x10^3/uL (0.0-1.1) Eosinophils # (Auto) 0.2 x10^3/uL (0.0-0.7) Basophils # (Auto) 0.0 x10^3/uL (0.0-0.2) Sodium Level 144 mmol/L (136-145) Potassium Level 3.5 mmol/L (3.5-5.1) Chloride Level 110 mmol/L (98-107) Carbon Dioxide Level 19 mmol/L (21-32) Anion Gap 15 (6-14) Blood Urea Nitrogen 15 mg/dL (8-26) Creatinine 1.4 mg/dL (0.7-1.3) Estimated GFR (Cockcroft-Gault) 50.7 BUN/Creatinine Ratio 11 (6-20) Glucose Level 212 mg/dL (70-99) Calcium Level 8.9 mg/dL (8.5-10.1) Total Bilirubin 0.5 mg/dL (0.2-1.0) Aspartate Amino Transf (AST/SGOT) 18 U/L (15-37) Alanine Aminotransferase (ALT/SGPT) 20 U/L (16-63) Alkaline Phosphatase 86 U/L (46-116) Total Protein 6.3 g/dL (6.4-8.2) Albumin 2.7 g/dL (3.4-5.0) Albumin/Globulin Ratio 0.8 (1.0-1.7) Laboratory Tests Test 01/18/20 11:44 01/18/20 16:56 01/18/20 20:27 01/19/20 07:05 Glucose (Fingerstick) 259 mg/dL (70-99) 267 mg/dL (70-99) 232 mg/dL (70-99) 198 mg/dL (70-99) Test 01/19/20 08:00 White Blood Count 6.8 x10^3/uL (4.0-11.0) Red Blood Count 3.22 x10^6/uL (4.30-5.70) Hemoglobin 10.5 g/dL (13.0-17.5) Hematocrit 29.2 % (39.0-53.0) Mean Corpuscular Volume 91 fL (79-100) Mean Corpuscular Hemoglobin 33 pg (25-35) Mean Corpuscular Hemoglobin Concent 36 g/dL (31-37) Red Cell Distribution Width 15.3 % (11.5-14.5) Platelet Count 149 x10^3/uL (140-400) Neutrophils (%) (Auto) 73 % (31-73) Lymphocytes (%) (Auto) 14 % (24-48) Monocytes (%) (Auto) 11 % (0-9) Eosinophils (%) (Auto) 2 % (0-3) Basophils (%) (Auto) 1 % (0-3) Neutrophils # (Auto) 5.0 x10^3/uL (1.8-7.7) Lymphocytes # (Auto) 0.9 x10^3/uL (1.0-4.8) Monocytes # (Auto) 0.7 x10^3/uL (0.0-1.1) Eosinophils # (Auto) 0.2 x10^3/uL (0.0-0.7) Basophils # (Auto) 0.0 x10^3/uL (0.0-0.2) Sodium Level 144 mmol/L (136-145) Potassium Level 3.5 mmol/L (3.5-5.1) Chloride Level 110 mmol/L (98-107) Carbon Dioxide Level 19 mmol/L (21-32) Anion Gap 15 (6-14) Blood Urea Nitrogen 15 mg/dL (8-26) Creatinine 1.4 mg/dL (0.7-1.3) Estimated GFR (Cockcroft-Gault) 50.7 BUN/Creatinine Ratio 11 (6-20) Glucose Level 212 mg/dL (70-99) Calcium Level 8.9 mg/dL (8.5-10.1) Total Bilirubin 0.5 mg/dL (0.2-1.0) Aspartate Amino Transf (AST/SGOT) 18 U/L (15-37) Alanine Aminotransferase (ALT/SGPT) 20 U/L (16-63) Alkaline Phosphatase 86 U/L (46-116) Total Protein 6.3 g/dL (6.4-8.2) Albumin 2.7 g/dL (3.4-5.0) Albumin/Globulin Ratio 0.8 (1.0-1.7) Microbiology 01/14/20 Blood Culture - Final, Complete NO GROWTH AFTER 5 DAYS Medications Current Medications Sodium Chloride 1,000 ml @ 1,000 mls/hr 1X ONCE IV Last administered on 01/13/20at 18:20; Start 01/13/20 at 18:45; Stop 01/13/20 at 19:44; Status DC Sodium Chloride 1,000 ml @ 1,000 mls/hr 1X ONCE IV Last administered on 01/13/20at 18:35; Start 01/13/20 at 18:45; Stop 01/13/20 at 19:44; Status DC Fentanyl Citrate (Fentanyl 2ml Vial) 50 mcg PRN Q1HR PRN IV SEE COMMENTS Last administered on 01/16/20at 17:12; Start 01/13/20 at 18:45; Stop 01/16/20 at 19:23; Status DC Chlorhexidine Gluconate (Peridex) 15 ml BID MM Last administered on 01/16/20at 08:59; Start 01/13/20 at 21:00; Stop 01/16/20 at 19:23; Status DC Midazolam HCl (Versed) 5 mg PRN Q1HR PRN IV AGITATION Last administered on 01/13/20at 19:53; Start 01/13/20 at 18:45; Stop 01/17/20 at 09:00; Status DC Etomidate (Amidate) 20 mg STK-MED ONCE IV ; Start 01/13/20 at 18:58; Stop 01/13/20 at 18:59; Status DC Rocuronium [place] (Zemuron) 50 mg STK-MED ONCE .ROUTE ; Start 01/13/20 at 18:59; Stop 01/13/20 at 18:59; Status DC Rocuronium [place] (Zemuron) 50 mg 1X ONCE IV Last administered on 01/13/20at 19:52; Start 01/13/20 at 19:00; Stop 01/13/20 at 19:25; Status DC Etomidate (Amidate) 20 mg 1X ONCE IV Last administered on 01/13/20at 19:52; Start 01/13/20 at 19:00; Stop 01/13/20 at 19:25; Status DC Potassium Chloride/Water 100 ml @ 100 mls/hr Q1H IV Last administered on 01/14/20at 00:34; Start 01/13/20 at 19:15; Stop 01/13/20 at 23:14; Status DC Norepinephrine Bitartrate 8 mg/ Dextrose 258 ml @ 24.633 mls/ hr 1X ONCE IV Last administered on 01/13/20at 19:45; Start 01/13/20 at 19:45; Stop 01/14/20 at 06:13; Status DC Piperacillin Sod/ Tazobactam Sod 4.5 gm/Sodium Chloride 100 ml @ 200 mls/hr 1X ONCE IV Last administered on 01/13/20at 19:45; Start 01/13/20 at 19:45; Stop 01/13/20 at 20:14; Status DC Sodium Chloride 1,000 ml @ 1,000 mls/hr 1X ONCE IV Last administered on 01/13/20at 19:45; Start 01/13/20 at 19:45; Stop 01/13/20 at 20:44; Status DC Levofloxacin/ Dextrose 150 ml @ 100 mls/hr 1X ONCE IV Last administered on 01/13/20at 21:05; Start 01/13/20 at 21:00; Stop 01/13/20 at 22:29; Status DC Vancomycin HCl (Vanco Per Pharmacy) 1 each PRN DAILY PRN MC SEE COMMENTS Last administered on 01/17/20at 09:49; Start 01/13/20 at 19:45; Stop 01/19/20 at 08:55; Status DC Magnesium Sulfate 50 ml @ 25 mls/hr 1X ONCE IV Last administered on 01/14/20at 01:11; Start 01/13/20 at 19:45; Stop 01/13/20 at 21:44; Status DC Insulin Human Regular (HumuLIN R VIAL) 12 unit 1X ONCE SQ Last administered on 01/13/20at 19:45; Start 01/13/20 at 19:45; Stop 01/13/20 at 19:46; Status DC Ondansetron HCl (Zofran) 4 mg PRN Q8HRS PRN IV NAUSEA/VOMITING; Start 01/13/20 at 20:45; Stop 01/14/20 at 20:44; Status DC Insulin Human Lispro (HumaLOG) 0-5 UNITS TIDWMEALS SQ Last administered on 01/16/20at 08:43; Start 01/14/20 at 08:00; Stop 01/16/20 at 12:43; Status DC Dextrose (Dextrose 50%-Water Syringe) 12.5 gm PRN Q15MIN PRN IV SEE COMMENTS Last administered on 01/15/20at 00:41; Start 01/13/20 at 20:45; Stop 01/17/20 at 09:01; Status DC Sodium Chloride 1,000 ml @ 100 mls/hr 1X ONCE IV Last administered on 01/13/20at 21:10; Start 01/13/20 at 20:45; Stop 01/14/20 at 06:44; Status DC Vancomycin HCl 2 gm/Sodium Chloride 500 ml @ 250 mls/hr 1X ONCE IV Last administered on 01/13/20at 22:59; Start 01/13/20 at 21:00; Stop 01/13/20 at 22:59; Status DC Midazolam HCl 100 ml @ 0 mls/hr CONT PRN IV SEE PROTOCOL Last administered on 01/16/20at 08:45; Start 01/13/20 at 22:15; Stop 01/17/20 at 12:18; Status DC Vancomycin HCl 2 gm/Sodium Chloride 500 ml @ 250 mls/hr Q24H IV Last administered on 01/18/20at 23:05; Start 01/14/20 at 23:00; Stop 01/19/20 at 08:52; Status DC Vancomycin HCl (Vancomycin Trough Level) 1 each 1X ONCE MC Last administered on 01/15/20at 22:30; Start 01/15/20 at 22:30; Stop 01/15/20 at 22:31; Status DC Enoxaparin Sodium (Lovenox Per Pharmacy Prophylaxis Dosing) 1 each PRN DAILY PRN MC SEE COMMENTS; Start 01/14/20 at 02:00 Potassium Chloride 20 meq/ Dextrose/Sodium Chloride 1,010 ml @ 85 mls/hr [id number] IV ; Start 01/14/20 at 02:00; Status UNV Potassium Chloride/Dextrose/ Sod Cl 1,000 ml @ 85 mls/hr [id number] IV Last administered on 01/14/20at 14:19; Start 01/14/20 at 02:15; Stop 01/14/20 at 21:20; Status DC Enoxaparin Sodium (Lovenox 40mg Syringe) 40 mg QHS SQ Last administered on 01/18/20at 20:50; Start 01/14/20 at 02:15 Norepinephrine Bitartrate 8 mg/ Dextrose 258 ml @ 22.678 mls/ hr CONT PRN IV PER PROTOCOL Last administered on 01/14/20at 02:42; Start 01/14/20 at 02:45; Stop 01/14/20 at 09:00; Status DC Norepinephrine Bitartrate 32 mg/ Dextrose 250 ml @ 5.484 mls/ hr CONT PRN IV SEE I/O RECORD Last administered on 01/16/20at 00:29; Start 01/14/20 at 07:45; Stop 01/17/20 at 12:18; Status DC Glucagon (Glucagen) 1 mg PRN Q15MIN PRN IV LOW BLOOD SUGAR Last administered on 01/15/20at 04:12; Start 01/14/20 at 09:30 Vasopressin 20 unit/Dextrose 101 ml @ 12 mls/hr CONT PRN IV SEE I/O RECORD; Start 01/14/20 at 09:45; Stop 01/17/20 at 12:18; Status DC Potassium Chloride/Water 100 ml @ 100 mls/hr Q1H IV Last administered on 01/14/20at 14:19; Start 01/14/20 at 11:00; Stop 01/14/20 at 14:59; Status DC Vancomycin HCl 1.75 gm/Sodium Chloride 500 ml @ 250 mls/hr Q18H IV ; Start 01/14/20 at 17:00; Status Cancel Pantoprazole Sodium (PROTONIX VIAL for IV PUSH) 40 mg DAILYAC IVP Last administered on 01/19/20at 08:31; Start 01/14/20 at 13:00 Fentanyl Citrate 30 ml @ 0 mls/hr CONT PRN IV SEE I/O RECORD; Start 01/14/20 at 16:00; Status Cancel Naloxone HCl (Narcan) 0.4 mg PRN Q2MIN PRN IV SEE INSTRUCTIONS; Start 01/14/20 at 16:00 Sodium Chloride 1,000 ml @ 25 mls/hr Q24H IV Last administered on 01/17/20at 11:30; Start 01/14/20 at 15:52; Stop 01/18/20 at 15:21; Status DC Fentanyl Citrate 30 ml @ 0 mls/hr CONT PRN IV SEE PROTOCOL Last administered on 01/16/20at 09:12; Start 01/14/20 at 16:00; Stop 01/17/20 at 12:18; Status DC Dextrose 1,000 ml @ 75 mls/hr [id number] IV Last administered on 01/15/20at 11:15; Start 01/14/20 at 21:30; Stop 01/15/20 at 15:50; Status DC Sodium Chloride 1,000 ml @ 1,000 mls/hr 1X ONCE IV Last administered on 01/15/20at 09:48; Start 01/15/20 at 09:45; Stop 01/15/20 at 10:44; Status DC Sodium Chloride 500 ml @ 500 mls/hr 1X ONCE IV Last administered on 01/15/20at 12:30; Start 01/15/20 at 12:30; Stop 01/15/20 at 13:29; Status DC Piperacillin Sod/ Tazobactam Sod 4.5 gm/Sodium Chloride 100 ml @ 200 mls/hr Q6HRS IV Last administered on 01/19/20at 06:27; Start 01/15/20 at 16:00; Stop 01/19/20 at 08:52; Status DC Aspirin (Ecotrin) 81 mg DAILYWBKFT PO Last administered on 01/19/20at 08:31; Start 01/16/20 at 08:00 Albumin Human 250 ml @ 62.5 mls/hr 1X ONCE IV Last administered on 01/16/20at 11:33; Start 01/16/20 at 11:15; Stop 01/16/20 at 15:14; Status DC Aspirin (Omkar Aspirin) 325 mg DAILYWBKFT PO ; Start 01/17/20 at 08:00; Stop 01/17/20 at 09:23; Status DC Atorvastatin Calcium (Lipitor) 20 mg QHS PO ; Start 01/16/20 at 21:00; Stop 01/16/20 at 12:45; Status DC Insulin Glargine (Lantus Syringe) 20 unit QHS SQ Last administered on 01/18/20at 20:54; Start 01/16/20 at 21:00 Insulin Human Lispro (HumaLOG) 0-7 UNITS TIDWMEALS SQ Last administered on 01/18/20at 17:03; Start 01/16/20 at 17:00 Dextrose (Dextrose 50%-Water Syringe) 12.5 gm PRN Q15MIN PRN IV SEE COMMENTS; Start 01/16/20 at 12:45 Sodium Bicarbonate (Sodium Bicarb Adult 8.4% Syr) 50 meq 1X ONCE IV Last administered on 01/16/20at 14:13; Start 01/16/20 at 14:15; Stop 01/16/20 at 14:16; Status DC Sodium Bicarbonate (Sodium Bicarb Adult 8.4% Syr) 50 meq 1X ONCE IV Last administered on 01/16/20at 14:13; Start 01/16/20 at 14:15; Stop 01/16/20 at 14:16; Status DC Sodium Bicarbonate (Sodium Bicarb Adult 8.4% Syr) 50 meq STK-MED ONCE .ROUTE ; Start 01/16/20 at 14:11; Stop 01/16/20 at 14:12; Status DC Sodium Chloride 1,000 ml @ 75 mls/hr 1X ONCE IV Last administered on 01/16/20at 17:07; Start 01/16/20 at 16:45; Stop 01/17/20 at 06:04; Status DC Vancomycin HCl (Vancomycin Trough Level) 1 each 1X ONCE MC Last administered on 01/16/20at 22:30; Start 01/16/20 at 22:30; Stop 01/16/20 at 22:31; Status DC Haloperidol Lactate (Haldol Inj) 5 mg PRN Q6HRS PRN IVP AGITATION Last administered on 01/19/20at 08:31; Start 01/16/20 at 18:00 Haloperidol Lactate (Haldol Inj) 5 mg 1X ONCE IVP Last administered on 01/16/20at 18:00; Start 01/16/20 at 18:00; Stop 01/16/20 at 18:01; Status DC Multivitamins (Thera M Plus) 1 tab DAILY PO ; Start 01/19/20 at 09:30 Ascorbic Acid (Vitamin C) 500 mg DAILY PO ; Start 01/19/20 at 09:30 Amlodipine Besylate (Norvasc) 5 mg DAILY PO ; Start 01/19/20 at 10:00 Active Scripts Active Aspirin 325 Mg Tablet 325 Mg PO DAILYWBKFT 30 Days Atorvastatin Calcium 20 Mg Tablet 20 Mg PO QHS 30 Days Reported Trazodone Hcl 50 Mg Tablet 1 Tab PO QHS Celexa (Citalopram Hydrobromide) 10 Mg Tablet 1 Tab PO DAILY Lantus Solostar (Insulin Glargine,Hum.rec.anlog) 100 Unit/1 Ml Insuln.pen 65 Unit SQ QHS Gabapentin (Gabapentin) 300 Mg Capsule 300 Mg PO TID Nexium Capsule (Esomeprazole Magnesium) 20 Mg Capsule.dr 1 Cap PO DAILY Actos (Pioglitazone Hcl) 30 Mg Tablet 30 Mg PO DAILY Metformin Hcl 500 Mg Tablet 500 Mg PO BIDWMEALS Vitals/I & O Vital Sign - Last 24 Hours 01/18/20 01/18/20 01/18/20 01/18/20 11:09 15:18 19:03 20:15 Temp 98.0 97.5 98.9 98.0 97.5 98.9 Pulse 89 78 90 Resp 20 20 20 B/P (MAP) 145/80 (101) 139/78 (98) 149/80 (103) Pulse Ox 96 96 95 O2 Delivery Room Air Room Air Room Air Room Air 01/18/20 01/19/20 01/19/20 01/19/20 23:23 02:42 03:58 07:45 Temp 97.9 98.0 97.9 98.0 Pulse 104 106 Resp 20 21 B/P (MAP) 163/100 (121) 154/77 (102) Pulse Ox 92 94 O2 Delivery Room Air Room Air Room Air Room Air O2 Flow Rate 2.0 2.0 01/19/20 07:56 Temp 98.2 98.2 Pulse 103 Resp 22 B/P (MAP) 177/100 (125) Pulse Ox 95 O2 Delivery Room Air Intake and Output 01/18/20 01/18/20 01/19/20 15:00 23:00 07:00 Intake Total 460 ml 460 ml Output Total 650 ml Balance 460 ml -190 ml Justicifation of Admission Dx: Justifications for Admission: Justification of Admission Dx: Yes Aspiration Pneumonia: Hemodynamic Instability Sepsis: Altered Mental Status Altered Mental Status: Altered Mental Status ED GORDON MD Jan 19, 2020 09:42
[2020-01-19] MEDS: MULTIVITAMIN with MINERAL TABLET. PO SCH (09:47)
[2020-01-19] MEDS: ASCORBIC ACID 500 MG TABLET PO SCH (09:48)
[2020-01-19] MEDS: amLODIPine BESYLATE 5 MG TABLET PO SCH (09:48)
--- NOTE | 2020-01-19 10:45 | PDOC ---
JOSE STEINER MEAT SPECIALIST 01/19/20 1045: CARDIO Progress Notes Date and Time Date of Service 01/19/2020 Time of Evaluation 0940 Subjective Subjective: No Chest Pain, No shortness of breath, No Palpitations Vitals Vitals Vital Signs Date Time Temp Pulse Resp B/P (MAP) Pulse Ox O2 Delivery O2 Flow Rate FiO2 01/19/20 09:48 103 177/100 01/19/20 07:56 98.2 22 95 Room Air 98.2 01/19/20 02:42 2.0 Weight Weight [ ] Input and Output Intake and Output Intake and Output 01/19/20 07:00 Intake Total 920 ml Output Total 650 ml Balance 270 ml Intake Oral 720 ml IV Total 200 ml Output Urine Total 650 ml # Bowel Movements 7 Laboratory Labs Laboratory Tests Test 01/18/20 11:44 01/18/20 16:56 01/18/20 20:27 01/19/20 07:05 Glucose (Fingerstick) 259 mg/dL (70-99) 267 mg/dL (70-99) 232 mg/dL (70-99) 198 mg/dL (70-99) Test 01/19/20 08:00 White Blood Count 6.8 x10^3/uL (4.0-11.0) Red Blood Count 3.22 x10^6/uL (4.30-5.70) Hemoglobin 10.5 g/dL (13.0-17.5) Hematocrit 29.2 % (39.0-53.0) Mean Corpuscular Volume 91 fL (79-100) Mean Corpuscular Hemoglobin 33 pg (25-35) Mean Corpuscular Hemoglobin Concent 36 g/dL (31-37) Red Cell Distribution Width 15.3 % (11.5-14.5) Platelet Count 149 x10^3/uL (140-400) Neutrophils (%) (Auto) 73 % (31-73) Lymphocytes (%) (Auto) 14 % (24-48) Monocytes (%) (Auto) 11 % (0-9) Eosinophils (%) (Auto) 2 % (0-3) Basophils (%) (Auto) 1 % (0-3) Neutrophils # (Auto) 5.0 x10^3/uL (1.8-7.7) Lymphocytes # (Auto) 0.9 x10^3/uL (1.0-4.8) Monocytes # (Auto) 0.7 x10^3/uL (0.0-1.1) Eosinophils # (Auto) 0.2 x10^3/uL (0.0-0.7) Basophils # (Auto) 0.0 x10^3/uL (0.0-0.2) Sodium Level 144 mmol/L (136-145) Potassium Level 3.5 mmol/L (3.5-5.1) Chloride Level 110 mmol/L (98-107) Carbon Dioxide Level 19 mmol/L (21-32) Anion Gap 15 (6-14) Blood Urea Nitrogen 15 mg/dL (8-26) Creatinine 1.4 mg/dL (0.7-1.3) Estimated GFR (Cockcroft-Gault) 50.7 BUN/Creatinine Ratio 11 (6-20) Glucose Level 212 mg/dL (70-99) Calcium Level 8.9 mg/dL (8.5-10.1) Total Bilirubin 0.5 mg/dL (0.2-1.0) Aspartate Amino Transf (AST/SGOT) 18 U/L (15-37) Alanine Aminotransferase (ALT/SGPT) 20 U/L (16-63) Alkaline Phosphatase 86 U/L (46-116) Total Protein 6.3 g/dL (6.4-8.2) Albumin 2.7 g/dL (3.4-5.0) Albumin/Globulin Ratio 0.8 (1.0-1.7) Microbiology Micro Microbiology 01/14/20 Blood Culture - Final, Complete NO GROWTH AFTER 5 DAYS Physical Exam HEENT: Neck Supple W Full Motion Chest: Symmetric LUNGS: Other (diminished) Heart: RRR (not on tele) Abdomen: Soft N/T, Other (obese) Extremities: No Calf Tenderness, Other (LBKA) Neurology: alert, oriented, follow commands Assessment Assessment 1. Acute respiratory failure s/p intubation. COVID negative, pulmonary following 2. Leukocytosis, lactic acidosis: afebrile 3. Septic shock: resolved 4. BRYCE on CKD: Cr 1.4 5. Mild troponin elevation; peal 0.135. Most probably type II, demand ischemia secondary to above. EF and WM nml 6. DM2 with hypoglycemic episode 7. Metabolic encephalopathy: remains restless 8. COPD, DAVID, morbid obesity 9. H/o CVA 10. HTN urgency Recommendations 1. Bipap PRN 2. Ongoing antibiotic therapy 3. Secondary preventionn measures. May resume home statin. ASA 4. Ideally ACEi but with current renal insufficiency will utilize norvasc at this time for BP control. Uptitrate as warranted 5. May follow up in office if no outpt miller first. Will consider for future MPI if none recent. Justicifation of Admission Dx: Justifications for Admission: Justification of Admission Dx: Yes Aspiration Pneumonia: Hemodynamic Instability Sepsis: Altered Mental Status Altered Mental Status: Altered Mental Status KENDALL SOLIS MD 01/21/202053: CARDIO Progress Notes Plan Plan Late entry for 01/19/2020 Pt. seen and examined. Agree with above SOLE RUFFER note. Supportive care. JOSE STEINER MEAT SPECIALIST Jan 19, 2020 10:45 KENDALL SOLIS MD Jan 21, 2020 20:54
[2020-01-19] MEDS ORDERED: HYDROmorphone 2 MG/ML VIAL IV ONE (11:45)
--- NOTE | 2020-01-19 11:52 | PDOC ---
PULMONARY PROGRESS NOTES DATE: 01/19/20 TIME: 11:42 Subjective extubated 01/15, remains on room air No CP, No SOA, No Cough no overnight concerns from nursing Vitals Vital Signs Date Time Temp Pulse Resp B/P (MAP) Pulse Ox O2 Delivery O2 Flow Rate FiO2 01/19/20 11:05 97.6 105 18 152/113 (126) 93 Room Air 97.6 01/19/20 02:42 2.0 ROS: No Nausea, No Chest Pain General: Alert, No acute distress Lungs: Clear Cardiovascular: S1, S2 Abdomen: Soft, Non-tender Neuro Exam: Alert Extremities: Other (+1 RLE) Skin: Warm, Dry Labs Laboratory Tests Test 01/17/20 11:50 01/17/20 17:49 01/17/20 19:50 01/18/20 06:55 Glucose (Fingerstick) 184 mg/dL (70-99) 250 mg/dL (70-99) 228 mg/dL (70-99) 180 mg/dL (70-99) Test 01/18/20 11:44 01/18/20 16:56 01/18/20 20:27 01/19/20 07:05 Glucose (Fingerstick) 259 mg/dL (70-99) 267 mg/dL (70-99) 232 mg/dL (70-99) 198 mg/dL (70-99) Test 01/19/20 08:00 01/19/20 11:08 White Blood Count 6.8 x10^3/uL (4.0-11.0) Red Blood Count 3.22 x10^6/uL (4.30-5.70) Hemoglobin 10.5 g/dL (13.0-17.5) Hematocrit 29.2 % (39.0-53.0) Mean Corpuscular Volume 91 fL (79-100) Mean Corpuscular Hemoglobin 33 pg (25-35) Mean Corpuscular Hemoglobin Concent 36 g/dL (31-37) Red Cell Distribution Width 15.3 % (11.5-14.5) Platelet Count 149 x10^3/uL (140-400) Neutrophils (%) (Auto) 73 % (31-73) Lymphocytes (%) (Auto) 14 % (24-48) Monocytes (%) (Auto) 11 % (0-9) Eosinophils (%) (Auto) 2 % (0-3) Basophils (%) (Auto) 1 % (0-3) Neutrophils # (Auto) 5.0 x10^3/uL (1.8-7.7) Lymphocytes # (Auto) 0.9 x10^3/uL (1.0-4.8) Monocytes # (Auto) 0.7 x10^3/uL (0.0-1.1) Eosinophils # (Auto) 0.2 x10^3/uL (0.0-0.7) Basophils # (Auto) 0.0 x10^3/uL (0.0-0.2) Sodium Level 144 mmol/L (136-145) Potassium Level 3.5 mmol/L (3.5-5.1) Chloride Level 110 mmol/L (98-107) Carbon Dioxide Level 19 mmol/L (21-32) Anion Gap 15 (6-14) Blood Urea Nitrogen 15 mg/dL (8-26) Creatinine 1.4 mg/dL (0.7-1.3) Estimated GFR (Cockcroft-Gault) 50.7 BUN/Creatinine Ratio 11 (6-20) Glucose Level 212 mg/dL (70-99) Calcium Level 8.9 mg/dL (8.5-10.1) Total Bilirubin 0.5 mg/dL (0.2-1.0) Aspartate Amino Transf (AST/SGOT) 18 U/L (15-37) Alanine Aminotransferase (ALT/SGPT) 20 U/L (16-63) Alkaline Phosphatase 86 U/L (46-116) Total Protein 6.3 g/dL (6.4-8.2) Albumin 2.7 g/dL (3.4-5.0) Albumin/Globulin Ratio 0.8 (1.0-1.7) Glucose (Fingerstick) 228 mg/dL (70-99) Laboratory Tests Test 01/18/20 11:44 01/18/20 16:56 01/18/20 20:27 01/19/20 07:05 Glucose (Fingerstick) 259 mg/dL (70-99) 267 mg/dL (70-99) 232 mg/dL (70-99) 198 mg/dL (70-99) Test 01/19/20 08:00 01/19/20 11:08 White Blood Count 6.8 x10^3/uL (4.0-11.0) Red Blood Count 3.22 x10^6/uL (4.30-5.70) Hemoglobin 10.5 g/dL (13.0-17.5) Hematocrit 29.2 % (39.0-53.0) Mean Corpuscular Volume 91 fL (79-100) Mean Corpuscular Hemoglobin 33 pg (25-35) Mean Corpuscular Hemoglobin Concent 36 g/dL (31-37) Red Cell Distribution Width 15.3 % (11.5-14.5) Platelet Count 149 x10^3/uL (140-400) Neutrophils (%) (Auto) 73 % (31-73) Lymphocytes (%) (Auto) 14 % (24-48) Monocytes (%) (Auto) 11 % (0-9) Eosinophils (%) (Auto) 2 % (0-3) Basophils (%) (Auto) 1 % (0-3) Neutrophils # (Auto) 5.0 x10^3/uL (1.8-7.7) Lymphocytes # (Auto) 0.9 x10^3/uL (1.0-4.8) Monocytes # (Auto) 0.7 x10^3/uL (0.0-1.1) Eosinophils # (Auto) 0.2 x10^3/uL (0.0-0.7) Basophils # (Auto) 0.0 x10^3/uL (0.0-0.2) Sodium Level 144 mmol/L (136-145) Potassium Level 3.5 mmol/L (3.5-5.1) Chloride Level 110 mmol/L (98-107) Carbon Dioxide Level 19 mmol/L (21-32) Anion Gap 15 (6-14) Blood Urea Nitrogen 15 mg/dL (8-26) Creatinine 1.4 mg/dL (0.7-1.3) Estimated GFR (Cockcroft-Gault) 50.7 BUN/Creatinine Ratio 11 (6-20) Glucose Level 212 mg/dL (70-99) Calcium Level 8.9 mg/dL (8.5-10.1) Total Bilirubin 0.5 mg/dL (0.2-1.0) Aspartate Amino Transf (AST/SGOT) 18 U/L (15-37) Alanine Aminotransferase (ALT/SGPT) 20 U/L (16-63) Alkaline Phosphatase 86 U/L (46-116) Total Protein 6.3 g/dL (6.4-8.2) Albumin 2.7 g/dL (3.4-5.0) Albumin/Globulin Ratio 0.8 (1.0-1.7) Glucose (Fingerstick) 228 mg/dL (70-99) Medications Active Scripts Medications Dose Route/Sig Max Daily Dose Days Date Category Aspirin 325 Mg Tablet 325 Mg PO DAILYWBKFT 30 09/11/19 Rx Atorvastatin Calcium 20 Mg Tablet 20 Mg PO QHS 30 09/11/19 Rx Trazodone Hcl 50 Mg Tablet 1 Tab PO QHS 09/10/19 Reported Celexa (Citalopram Hydrobromide) 10 Mg Tablet 1 Tab PO DAILY 09/10/19 Reported Lantus Solostar (Insulin Glargine,Hum.rec.anlog) 100 Unit/1 Ml Insuln.pen 65 Unit SQ QHS 09/10/19 Reported Gabapentin (Gabapentin) 300 Mg Capsule 300 Mg PO TID 07/28/19 Reported Nexium Capsule (Esomeprazole Magnesium) 20 Mg Capsule. 1 Cap PO DAILY 07/28/19 Reported Actos (Pioglitazone Hcl) 30 Mg Tablet 30 Mg PO DAILY 07/28/19 Reported Metformin Hcl 500 Mg Tablet 500 Mg PO BIDWMEALS 07/28/19 Reported Comments CXR 01/18/2020 Impression: 1. Decreased patchy bibasilar opacities. Impression . IMPRESSION: Acute hypoxemic respiratory failure secondary to septic shock, source unknown, encephalopathy, suspected suicidal attempt with insulin, acute kidney injury, extubated 01/15. Doing well--resolved Abnormal chest x-ray-- improved CXR Acute kidney injury--resolved Septic shock.---resolved Diabetes mellitus Encephalopathy, metabolic--- improved Obstructive sleep apnea-hypopnea syndrome. History of cerebrovascular accident. Lower extremity edema--improved Plan . Currently on room air, stable from pulmonary standpoint COVID-19.- NEG Lower extremity venous Doppler-- NEG Follow nephrology recommendations Continue antibiotic per ID, now off ABX diet per speech DVT/GI PPX D/W RN and ALFONSO Brown MD Jan 19, 2020 11:52
--- NOTE | 2020-01-19 13:31 | PDOC2 ---
GI CONSULT Date of Service: DATE: 01/19/20 TIME: 13:09 Reason For Consult: abd pain HPI: HPI: 65 y/o male admitted on 01/13/20. Reviewed chart - found down by neighbor, concern for suicide attempt w/ insulin. Resp failure requiring intubation, now extubated and on room air. Initially also w/ BRYCE, hypokalemia, lactic acidosis, mildly elevated troponin. We are asked to see him today for abdominal pain. He reports middle abdominal pain ("just pain") began two days ago. It is constant and staying the same. No change with eating or stooling. Hurts when people press on it. No similar pain in the past. CT A/P and stool tests ordered per primary. H/o GERD controlled w/ Nexium QD. Denies dysphagia, n/v, constipation, melena, or weight loss. Having soft stools - "too much" - more frequent than normal. Has had two stools today. Usually has 1 daily at home. Occasional bleeding from hemorrhoids - none noted by staff here per 1:1 sitter. Thinks had EGD or colonoscopy ~10 years ago @ [facility], doesn't recall findings. S/p cholecystectomy for stones. Denies liver, pancreas, or PUD history. Chronic anemia noted - iron studies c/w ACD in 2017, B12 normal this admission. On ASA. Was on antibiotics. Stopped per ID. PMH: PMH: HTN, CVA, DM, CKD, DAVID, suicide attempts, GERD, hemorrhoids, anemia left BKA, cholecystectomy FH: Family History: Other ("I don't know") Social History: Smoke: No ALCOHOL: none Drugs: None ROS: GEN: Denies fevers, chills, sweats HEENT: Denies blurred vision, sore throat CV: Denies chest pain RESP: Denies shortness of air, cough GI: Per HPI : Denies hematuria, dysuria ENDO: Denies weight changes NEURO: Denies confusion, dizziness MSK: Denies weakness, joint pain/swelling SKIN: Denies jaundice, pruritus Vitals: Vitals: Vital Signs Date Time Temp Pulse Resp B/P (MAP) Pulse Ox O2 Delivery O2 Flow Rate FiO2 01/19/20 13:08 107 139/80 (99) 01/19/20 11:46 93 Room Air 01/19/20 11:05 97.6 18 97.6 01/19/20 02:42 2.0 Labs: Labs: Laboratory Tests Test 01/18/20 16:56 01/18/20 20:27 01/19/20 07:05 01/19/20 08:00 Glucose (Fingerstick) 267 mg/dL (70-99) 232 mg/dL (70-99) 198 mg/dL (70-99) White Blood Count 6.8 x10^3/uL (4.0-11.0) Red Blood Count 3.22 x10^6/uL (4.30-5.70) Hemoglobin 10.5 g/dL (13.0-17.5) Hematocrit 29.2 % (39.0-53.0) Mean Corpuscular Volume 91 fL (79-100) Mean Corpuscular Hemoglobin 33 pg (25-35) Mean Corpuscular Hemoglobin Concent 36 g/dL (31-37) Red Cell Distribution Width 15.3 % (11.5-14.5) Platelet Count 149 x10^3/uL (140-400) Neutrophils (%) (Auto) 73 % (31-73) Lymphocytes (%) (Auto) 14 % (24-48) Monocytes (%) (Auto) 11 % (0-9) Eosinophils (%) (Auto) 2 % (0-3) Basophils (%) (Auto) 1 % (0-3) Neutrophils # (Auto) 5.0 x10^3/uL (1.8-7.7) Lymphocytes # (Auto) 0.9 x10^3/uL (1.0-4.8) Monocytes # (Auto) 0.7 x10^3/uL (0.0-1.1) Eosinophils # (Auto) 0.2 x10^3/uL (0.0-0.7) Basophils # (Auto) 0.0 x10^3/uL (0.0-0.2) Sodium Level 144 mmol/L (136-145) Potassium Level 3.5 mmol/L (3.5-5.1) Chloride Level 110 mmol/L (98-107) Carbon Dioxide Level 19 mmol/L (21-32) Anion Gap 15 (6-14) Blood Urea Nitrogen 15 mg/dL (8-26) Creatinine 1.4 mg/dL (0.7-1.3) Estimated GFR (Cockcroft-Gault) 50.7 BUN/Creatinine Ratio 11 (6-20) Glucose Level 212 mg/dL (70-99) Calcium Level 8.9 mg/dL (8.5-10.1) Total Bilirubin 0.5 mg/dL (0.2-1.0) Aspartate Amino Transf (AST/SGOT) 18 U/L (15-37) Alanine Aminotransferase (ALT/SGPT) 20 U/L (16-63) Alkaline Phosphatase 86 U/L (46-116) Total Protein 6.3 g/dL (6.4-8.2) Albumin 2.7 g/dL (3.4-5.0) Albumin/Globulin Ratio 0.8 (1.0-1.7) Test 01/19/20 11:08 Glucose (Fingerstick) 228 mg/dL (70-99) BLOOD CULTURE Final NO GROWTH AFTER 5 DAYS Allergies: Coded Allergies: morphine (Verified Allergy, Intermediate, 02/19/17) causes hallucinations I S O L A T I O N *CONTACT* (Verified Allergy, Unknown, 05/10/17) mrsa Medications: Current Medications Medications (Trade) Dose Ordered Sig/Serenity Route PRN Reason Start Time Stop Time Status Last Admin Dose Admin Multivitamins (Thera M Plus) 1 tab DAILY PO 01/19/20 09:30 01/19/20 09:47 Ascorbic Acid (Vitamin C) 500 mg DAILY PO 01/19/20 09:30 01/19/20 09:48 Amlodipine Besylate (Norvasc) 5 mg DAILY PO 01/19/20 10:00 01/19/20 09:48 Hydromorphone HCl (Dilaudid) 0.5 mg 1X ONCE IV 01/19/20 11:45 01/19/20 11:46 DC 01/19/20 11:46 Imaging: Imaging: Head/C-spine CT 01/12 IMPRESSION: 1. Degenerative spondylosis in the lower cervical spine. 2. No acute C-spine fracture. LE US 01/14 IMPRESSION: 1. Occlusive thrombus in the left superficial femoral vein extending into the popliteal vein where it is nonocclusive. 2. No acute DVT in the right lower extremities. Echocardiogram 01/15 <Conclusion> The left ventricular systolic function is normal. The Ejection Fraction is 55%. There is normal LV segmental wall motion. Trace tricuspid regurgitation with an estimated PAP of 25 mmHg. There is no evidence of significant pericardial effusion. DIVISION MANAGER Bedside Swallow Eval 01/16 Bedside swallow eval completed. See full rpt in interventions. Pt intubated 01/12- 01/16/20; slightly less than 24hrs p.extubation at time of eval. Phonation abnl and pt confirms this is not baseline. Pt known to dept from prior bedside s wallow 08/2019. Swallow function was considered WNLs at that time. IMPRESSIONS: Moderate pharyngeal dysphagia w/subtle s/s aspiration w/thin liquids via cup. Mild laryngeal dysfunction as evidenced by abnl phonation, cough and swallow. Puree, solids and honey thick liquids appear safe at this time. Would initiate modified diet and f/u for progress toward safe intake. RECOMMENDATIONS: Initiate dysphagia III w/honey thic liquids. Precautions posted. Diet orders entered. DW RN Malaika and pt. Will f/u per POC. CXR 01/17 Impression: 1. Decreased patchy bibasilar opacities. PE: GEN: NAD HEENT: Atraumatic, PERRL LUNGS: CTAB HEART: mildly tachycardic ABD: large, NABS, periumbilical discomfort EXTREMITY: L BKA SKIN: No rashes, no jaundice NEURO/PSYCH: A & O 3 A/P: A/P: Resp failure, concern for suicide attempt Periumbilical pain x 2 days, frequent stools Chronic anemia - past iron studies c/w ACD GERD - controlled w/ PPI CRC screen - 10 years ago Hemorrhoids, intermittent hematochezia - none here COPD/DAVID, CKD, DM COVID-19 negative -- Await CT and stool tests. Will attempt to review previous 'scope records. Doesn't need IV PPI since eating - change to PO. JAY FUENTES Jan 19, 2020 13:31
--- NOTE | 2020-01-19 14:03 | PDOC ---
DATE OF SERVICE DATE: 01/19/20 TIME: 14:01 SUBJECTIVE ROS stable OBJECTIVE Vital Signs Vital Signs Date Time Temp Pulse Resp B/P (MAP) Pulse Ox O2 Delivery O2 Flow Rate FiO2 01/19/20 13:08 107 139/80 (99) 01/19/20 11:46 93 Room Air 01/19/20 11:05 97.6 18 97.6 01/19/20 02:42 2.0 I & 0 Intake and Output 01/19/20 07:00 Intake Total 920 ml Output Total 650 ml Balance 270 ml Intake Oral 720 ml IV Total 200 ml Output Urine Total 650 ml # Bowel Movements 7 PHYSICAL EXAM Physical Exam GEN: NAD HEENT: OM moist , On RA NECK: Supple LUNGS: Clear to auscultation ant HEART: RRR, S!, S2 present. ABDOMEN: Soft, nontender. EXTREMITIES: No clubbing, cyanosis, or edema. Left below knee amputation NEUROLOGIC: grossly normal SKIN: No rash DIAGNOSIS/ASSESSMENT Assessment & Plan BRYCE - ATN Renal function improved, stable E-lytes stable , UA unremarkable , Supportive care , strict I/O, Avoid nephrotoxins , CKD stage 2- Baseline Cr probably 1.2 with BRYCE in 2017 Anemia- per primary Acute hypoxemic respiratory failure secondary to septic shock, source unknown CoVid 19 negative Encephalopathy- suspected suicidal attempt with insulin Abnormal chest x-ray Septic Shock Diabetes mellitus History of cerebrovascular accident. Lower extremity edema. COMMENT/RELEVANT DATA Meds Current Medications Medications (Trade) Dose Ordered Sig/Serenity Start Time Stop Time Status Last Admin Dose Admin Albumin Human 250 ml @ 62.5 mls/hr 1X ONCE 01/16/20 11:15 01/16/20 15:14 DC 01/16/20 11:33 62.5 MLS/HR Amlodipine Besylate (Norvasc) 5 mg DAILY 01/19/20 10:00 01/19/20 09:48 5 MG Ascorbic Acid (Vitamin C) 500 mg DAILY 01/19/20 09:30 01/19/20 09:48 500 MG Aspirin (Omkar Aspirin) 325 mg DAILYWBKFT 01/17/20 08:00 01/17/20 09:23 DC Aspirin (Ecotrin) 81 mg DAILYWBKFT 01/16/20 08:00 01/19/20 08:31 81 MG Atorvastatin Calcium (Lipitor) 20 mg QHS 01/19/20 21:00 Chlorhexidine Gluconate (Peridex) 15 ml BID 01/13/20 21:00 01/16/20 19:23 DC 01/16/20 08:59 15 ML Dextrose (Dextrose 50%-Water Syringe) 12.5 gm PRN Q15MIN PRN 01/16/20 12:45 Enoxaparin Sodium (Lovenox 40mg Syringe) 40 mg QHS 01/14/20 02:15 01/18/20 20:50 40 MG Enoxaparin Sodium (Lovenox Per Pharmacy Prophylaxis Dosing) 1 each PRN DAILY PRN 01/14/20 02:00 Etomidate (Amidate) 20 mg 1X ONCE 01/13/20 19:00 01/13/20 19:25 DC 01/13/20 19:52 20 MG Fentanyl Citrate 30 ml @ 0 mls/hr CONT PRN 01/14/20 16:00 01/17/20 12:18 DC 01/16/20 09:12 2.5 MLS/HR Fentanyl Citrate (Fentanyl 2ml Vial) 50 mcg PRN Q1HR PRN 01/13/20 18:45 01/16/20 19:23 DC 01/16/20 17:12 50 MCG Glucagon (Glucagen) 1 mg PRN Q15MIN PRN 01/14/20 09:30 01/15/20 04:12 1 MG Haloperidol Lactate (Haldol Inj) 5 mg 1X ONCE 01/16/20 18:00 01/16/20 18:01 DC 01/16/20 18:00 5 MG Hydromorphone HCl (Dilaudid) 0.5 mg 1X ONCE 01/19/20 11:45 01/19/20 11:46 DC 01/19/20 11:46 0.5 MG Insulin Glargine (Lantus Syringe) 20 unit QHS 01/16/20 21:00 01/18/20 20:54 20 UNIT Insulin Human Lispro (HumaLOG) 0-7 UNITS TIDWMEALS 01/16/20 17:00 01/19/20 11:30 4 UNITS Insulin Human Regular (HumuLIN R VIAL) 12 unit 1X ONCE 01/13/20 19:45 01/13/20 19:46 DC 01/13/20 19:45 12 UNIT Levofloxacin/ Dextrose 150 ml @ 100 mls/hr 1X ONCE 01/13/20 21:00 01/13/20 22:29 DC 01/13/20 21:05 100 MLS/HR Magnesium Sulfate 50 ml @ 25 mls/hr 1X ONCE 01/13/20 19:45 01/13/20 21:44 DC 01/14/20 01:11 25 MLS/HR Midazolam HCl 100 ml @ 0 mls/hr CONT PRN 01/13/20 22:15 01/17/20 12:18 DC 01/16/20 08:45 5 MLS/HR Midazolam HCl (Versed) 5 mg PRN Q1HR PRN 01/13/20 18:45 01/17/20 09:00 DC 01/13/20 19:53 5 MG Multivitamins (Thera M Plus) 1 tab DAILY 01/19/20 09:30 01/19/20 09:47 1 TAB Naloxone HCl (Narcan) 0.4 mg PRN Q2MIN PRN 01/14/20 16:00 Norepinephrine Bitartrate 32 mg/ Dextrose 250 ml @ 5.484 mls/ hr CONT PRN 01/14/20 07:45 01/17/20 12:18 DC 01/16/20 00:29 9.872 MLS/HR Norepinephrine Bitartrate 8 mg/ Dextrose 258 ml @ 22.678 mls/ hr CONT PRN 01/14/20 02:45 01/14/20 09:00 DC 01/14/20 02:42 32.9 MLS/HR Ondansetron HCl (Zofran) 4 mg PRN Q8HRS PRN 01/13/20 20:45 01/14/20 20:44 DC Pantoprazole Sodium (PROTONIX VIAL for IV PUSH) 40 mg DAILYAC 01/14/20 13:00 01/19/20 13:32 DC 01/19/20 08:31 40 MG Pantoprazole Sodium (Protonix) 40 mg DAILYAC 01/20/20 07:30 Piperacillin Sod/ Tazobactam Sod 4.5 gm/Sodium Chloride 100 ml @ 200 mls/hr Q6HRS 01/15/20 16:00 01/19/20 08:52 DC 01/19/20 06:27 200 MLS/HR Potassium Chloride 20 meq/ Dextrose/Sodium Chloride 1,010 ml @ 85 mls/hr [id number] 01/14/20 02:00 UNV Potassium Chloride/Dextrose/ Sod Cl 1,000 ml @ 85 mls/hr [id number] 01/14/20 02:15 01/14/20 21:20 DC 01/14/20 14:19 85 MLS/HR Potassium Chloride/Water 100 ml @ 100 mls/hr Q1H 01/14/20 11:00 01/14/20 14:59 DC 01/14/20 14:19 100 MLS/HR Rocuronium Wilmot (Zemuron) 50 mg 1X ONCE 01/13/20 19:00 01/13/20 19:25 DC 01/13/20 19:52 50 MG Sodium Bicarbonate (Sodium Bicarb Adult 8.4% Syr) 50 meq STK-MED ONCE 01/16/20 14:11 01/16/20 14:12 DC Sodium Chloride 1,000 ml @ 75 mls/hr 1X ONCE 01/16/20 16:45 01/17/20 06:04 DC 01/16/20 17:07 75 MLS/HR Vancomycin HCl (Vanco Per Pharmacy) 1 each PRN DAILY PRN 01/13/20 19:45 01/19/20 08:55 DC 01/17/20 09:49 1 EACH Vancomycin HCl (Vancomycin Trough Level) 1 each 1X ONCE 01/16/20 22:30 01/16/20 22:31 DC 01/16/20 22:30 1 EACH Vancomycin HCl 1.75 gm/Sodium Chloride 500 ml @ 250 mls/hr Q18H 01/14/20 17:00 Cancel Vancomycin HCl 2 gm/Sodium Chloride 500 ml @ 250 mls/hr Q24H 01/14/20 23:00 01/19/20 08:52 DC 01/18/20 23:05 250 MLS/HR Vasopressin 20 unit/Dextrose 101 ml @ 12 mls/hr CONT PRN 01/14/20 09:45 01/17/20 12:18 DC Lab Laboratory Tests Test 01/18/20 16:56 01/18/20 20:27 01/19/20 07:05 01/19/20 08:00 Glucose (Fingerstick) 267 mg/dL (70-99) 232 mg/dL (70-99) 198 mg/dL (70-99) White Blood Count 6.8 x10^3/uL (4.0-11.0) Red Blood Count 3.22 x10^6/uL (4.30-5.70) Hemoglobin 10.5 g/dL (13.0-17.5) Hematocrit 29.2 % (39.0-53.0) Mean Corpuscular Volume 91 fL (79-100) Mean Corpuscular Hemoglobin 33 pg (25-35) Mean Corpuscular Hemoglobin Concent 36 g/dL (31-37) Red Cell Distribution Width 15.3 % (11.5-14.5) Platelet Count 149 x10^3/uL (140-400) Neutrophils (%) (Auto) 73 % (31-73) Lymphocytes (%) (Auto) 14 % (24-48) Monocytes (%) (Auto) 11 % (0-9) Eosinophils (%) (Auto) 2 % (0-3) Basophils (%) (Auto) 1 % (0-3) Neutrophils # (Auto) 5.0 x10^3/uL (1.8-7.7) Lymphocytes # (Auto) 0.9 x10^3/uL (1.0-4.8) Monocytes # (Auto) 0.7 x10^3/uL (0.0-1.1) Eosinophils # (Auto) 0.2 x10^3/uL (0.0-0.7) Basophils # (Auto) 0.0 x10^3/uL (0.0-0.2) Sodium Level 144 mmol/L (136-145) Potassium Level 3.5 mmol/L (3.5-5.1) Chloride Level 110 mmol/L (98-107) Carbon Dioxide Level 19 mmol/L (21-32) Anion Gap 15 (6-14) Blood Urea Nitrogen 15 mg/dL (8-26) Creatinine 1.4 mg/dL (0.7-1.3) Estimated GFR (Cockcroft-Gault) 50.7 BUN/Creatinine Ratio 11 (6-20) Glucose Level 212 mg/dL (70-99) Calcium Level 8.9 mg/dL (8.5-10.1) Total Bilirubin 0.5 mg/dL (0.2-1.0) Aspartate Amino Transf (AST/SGOT) 18 U/L (15-37) Alanine Aminotransferase (ALT/SGPT) 20 U/L (16-63) Alkaline Phosphatase 86 U/L (46-116) Total Protein 6.3 g/dL (6.4-8.2) Albumin 2.7 g/dL (3.4-5.0) Albumin/Globulin Ratio 0.8 (1.0-1.7) Test 01/19/20 11:08 Glucose (Fingerstick) 228 mg/dL (70-99) Results All relevant outside records, renal labs, imaging studies, telemetry/EKG's were reviewed. Justicifation of Admission Dx: Justifications for Admission: Justification of Admission Dx: Yes Aspiration Pneumonia: Hemodynamic Instability Sepsis: Altered Mental Status Altered Mental Status: Altered Mental Status SVITLANA FELIZ MD Jan 19, 2020 14:03
--- NOTE | 2020-01-19 14:32 | NUR ---
SS following up with discharge planning. SS reviewed pt chart and discussed with pt RN. Pt needing inpatient psych placement. Pt accepted at [facility], [address] [place] [address] [id number] Obregon. Pt's RN reported that CT scan and GI consult was ordered. Physician not discharging today. SS notified PAT team and [facility]. SS was notified that they cannot hold pt's bed and requested PAT team send updates tomorrow. SS contacted PAT team and notified. Darren or Emilie will visit with pt and send updates tomorrow, 01/19/2020. SS will continue to follow for discharge planning.
--- NOTE | 2020-01-19 14:44 | NUR ---
Wound Care Wound care consult for pressure ulcer to left buttock, DTI. Cleansed area and applied calazime, turned to left side. P500 bed ordered. No other wounds noted. WC will follow up next week.
--- NOTE | 2020-01-19 15:48 | RAD ---
CT abdomen pelvis without contrast dated 01/19/2020. No comparison available. CLINICAL INDICATION: Pain. TECHNIQUE: Contiguous axial imaging the abdomen pelvis performed without the administration of IV or oral contrast. One or more of the following individualized dose reduction techniques were utilized for this examination: 1. Automated exposure control 2. Adjustment of the mA and/or kV according to patient size 3. Use of iterative reconstruction technique. FINDINGS: Limited images of lung bases show small bilateral pleural effusions. Heart size is within normal limits. Small pericardial effusion. Coronary artery calcifications. The esophagus is mildly dilated and fluid-filled. There are borderline enlarged right hilar and subcarinal lymph nodes measuring up to 10 mm short axis. Patchy density in the lower lobes, likely atelectasis. Solid abdominal viscera not well evaluated in the absence of contrast material. No apparent attenuation abnormality of the liver or spleen. Gallbladder surgically absent. Trace amount of perihepatic ascites. Pancreas is somewhat atrophic. Adrenal glands unremarkable. There is mild bilateral hydroureter and pelvic caliectasis. No calcific renal or ureteral stone. Inflammatory stranding in the bilateral perinephric fat. The urinary bladder is moderately distended with Brooks catheter in place. Small amount of gas density in the bladder lumen. No apparent wall thickening. Unopacified GI tract normal in caliber and contour. No focal bowel wall thickening. No inflammatory changes in the mesentery. No adenopathy. Abdominal aorta is normal in caliber. Images of the pelvis show normal-sized prostate gland. No free fluid or pelvic lymphadenopathy. Diffuse vascular calcinosis. Bone windows show no acute findings. Multilevel spondylosis. IMPRESSION: 1. There is mild hydronephrosis and hydroureter to the level of the urinary bladder which appears moderately distended. This could be related to intermittent bladder outlet obstruction or neurogenic bladder with chronic back pressure. Chronic vesicoureteral reflux is also possible. Underlying pyelonephritis and ureteritis not excluded. There is no calcific stone. 2. Bibasilar airspace disease, likely atelectasis. There are small bilateral pleural effusions. 3. Mildly dilated fluid-filled thoracic esophagus, possibly related to chronic GE reflux or esophageal dysmotility. 4. Small pericardial effusion. 5. Small amount of ascites. Electronically signed by: Dipesh Garcia MD (01/19/2020 3:45 PM) [facility]
--- NOTE | 2020-01-19 16:49 | NUR ---
Patient had little to no urine in urinary catheter bag. Bladder scan showed over 900mL urine retained in bladder. Fowl Blood Tester attempted to flush catheter. Fowl Blood Tester removed current zelaya catheter and replaced with a new one, mutiple clots came out with old catheter. Over 1500mL urine was drained after new catheter insertion, Dr. Jose aware.
[2020-01-19] MEDS: SERTRALINE 50 MG TABLET. PO SCH (17:12)
--- NOTE | 2020-01-19 17:28 | PDOC ---
F/U PHYSCH PROG NOTE Subjective: Gentleman is seen for routine follow-up. Progress is reviewed with nursing staff. Patient has been denied from [facility] as he required 04/01 nursing which facility was not equipped with. Aside from that, he denies overt depression or anxiety. Previously on Celexa. Discussed option of adding Zoloft which is relatively safer for his age. He is in agreement with plan and voiced understanding. Denies suicidal or homicidal thoughts. Denies auditory or visual hallucinations. No major emotional or behavioral event reported. No evidence of russell or hypomania. Denies access to firearms. Objective: 14 point review of system is otherwise negative except for stated in subjective history Vital Signs: Vital Signs Date Time Temp Pulse Resp B/P (MAP) Pulse Ox O2 Delivery O2 Flow Rate FiO2 01/19/20 15:14 97.4 100 20 141/90 (107) 95 Room Air 97.4 01/19/20 02:42 2.0 Labs: Laboratory Tests Test 01/18/20 20:27 01/18/20 21:00 01/19/20 07:05 01/19/20 08:00 Glucose (Fingerstick) 232 mg/dL (70-99) H 198 mg/dL (70-99) H Stool Campylobacter PCR Negative (NEGATIVE) Stool E. coli Shiga Toxins (PCR) Negative (NEGATIVE) Stool Salmonella PCR Negative (NEGATIVE) Stool Shigella PCR Negative (NEGATIVE) Clostridioides difficile Toxin (PCR) Negative (NEGATIVE) White Blood Count 6.8 x10^3/uL (4.0-11.0) Red Blood Count 3.22 x10^6/uL (4.30-5.70) L Hemoglobin 10.5 g/dL (13.0-17.5) L Hematocrit 29.2 % (39.0-53.0) L Mean Corpuscular Volume 91 fL (79-100) Mean Corpuscular Hemoglobin 33 pg (25-35) Mean Corpuscular Hemoglobin Concent 36 g/dL (31-37) Red Cell Distribution Width 15.3 % (11.5-14.5) H Platelet Count 149 x10^3/uL (140-400) Neutrophils (%) (Auto) 73 % (31-73) Lymphocytes (%) (Auto) 14 % (24-48) L Monocytes (%) (Auto) 11 % (0-9) H Eosinophils (%) (Auto) 2 % (0-3) Basophils (%) (Auto) 1 % (0-3) Neutrophils # (Auto) 5.0 x10^3/uL (1.8-7.7) Lymphocytes # (Auto) 0.9 x10^3/uL (1.0-4.8) L Monocytes # (Auto) 0.7 x10^3/uL (0.0-1.1) Eosinophils # (Auto) 0.2 x10^3/uL (0.0-0.7) Basophils # (Auto) 0.0 x10^3/uL (0.0-0.2) Sodium Level 144 mmol/L (136-145) Potassium Level 3.5 mmol/L (3.5-5.1) Chloride Level 110 mmol/L (98-107) H Carbon Dioxide Level 19 mmol/L (21-32) L Anion Gap 15 (6-14) H Blood Urea Nitrogen 15 mg/dL (8-26) Creatinine 1.4 mg/dL (0.7-1.3) H Estimated GFR (Cockcroft-Gault) 50.7 BUN/Creatinine Ratio 11 (6-20) Glucose Level 212 mg/dL (70-99) H Calcium Level 8.9 mg/dL (8.5-10.1) Total Bilirubin 0.5 mg/dL (0.2-1.0) Aspartate Amino Transferase (AST) 18 U/L (15-37) Alanine Aminotransferase (ALT) 20 U/L (16-63) Alkaline Phosphatase 86 U/L (46-116) Total Protein 6.3 g/dL (6.4-8.2) L Albumin 2.7 g/dL (3.4-5.0) L Albumin/Globulin Ratio 0.8 (1.0-1.7) L Test 01/19/20 11:08 01/19/20 16:21 Glucose (Fingerstick) 228 mg/dL (70-99) H 223 mg/dL (70-99) H Laboratory Tests 01/19/20 08:00 Laboratory Tests 01/19/20 08:00 Medications: Current Medications Medications (Trade) Dose Ordered Sig/Serenity Start Time Stop Time Status Last Admin Dose Admin Albumin Human 250 ml @ 62.5 mls/hr 1X ONCE 01/16/20 11:15 01/16/20 15:14 DC 01/16/20 11:33 62.5 MLS/HR Amlodipine Besylate (Norvasc) 5 mg DAILY 01/19/20 10:00 01/19/20 09:48 5 MG Ascorbic Acid (Vitamin C) 500 mg DAILY 01/19/20 09:30 01/19/20 09:48 500 MG Aspirin (Omkra Aspirin) 325 mg DAILYWBKFT 01/17/20 08:00 01/17/20 09:23 DC Aspirin (Ecotrin) 81 mg DAILYWBKFT 01/16/20 08:00 01/19/20 08:31 81 MG Atorvastatin Calcium (Lipitor) 20 mg QHS 01/19/20 21:00 Chlorhexidine Gluconate (Peridex) 15 ml BID 01/13/20 21:00 01/16/20 19:23 DC 01/16/20 08:59 15 ML Dextrose (Dextrose 50%-Water Syringe) 12.5 gm PRN Q15MIN PRN 01/16/20 12:45 Enoxaparin Sodium (Lovenox 40mg Syringe) 40 mg QHS 01/14/20 02:15 01/18/20 20:50 40 MG Enoxaparin Sodium (Lovenox Per Pharmacy Prophylaxis Dosing) 1 each PRN DAILY PRN 01/14/20 02:00 Etomidate (Amidate) 20 mg 1X ONCE 01/13/20 19:00 01/13/20 19:25 DC 01/13/20 19:52 20 MG Fentanyl Citrate 30 ml @ 0 mls/hr CONT PRN 01/14/20 16:00 01/17/20 12:18 DC 01/16/20 09:12 2.5 MLS/HR Fentanyl Citrate (Fentanyl 2ml Vial) 50 mcg PRN Q1HR PRN 01/13/20 18:45 01/16/20 19:23 DC 01/16/20 17:12 50 MCG Glucagon (Glucagen) 1 mg PRN Q15MIN PRN 01/14/20 09:30 01/15/20 04:12 1 MG Haloperidol Lactate (Haldol Inj) 5 mg 1X ONCE 01/16/20 18:00 01/16/20 18:01 DC 01/16/20 18:00 5 MG Hydromorphone HCl (Dilaudid) 0.5 mg 1X ONCE 01/19/20 11:45 01/19/20 11:46 DC 01/19/20 11:46 0.5 MG Insulin Glargine (Lantus Syringe) 20 unit QHS 01/16/20 21:00 01/18/20 20:54 20 UNIT Insulin Human Lispro (HumaLOG) 0-7 UNITS TIDWMEALS 01/16/20 17:00 01/19/20 16:30 4 UNITS Insulin Human Regular (HumuLIN R VIAL) 12 unit 1X ONCE 01/13/20 19:45 01/13/20 19:46 DC 01/13/20 19:45 12 UNIT Levofloxacin/ Dextrose 150 ml @ 100 mls/hr 1X ONCE 01/13/20 21:00 01/13/20 22:29 DC 01/13/20 21:05 100 MLS/HR Magnesium Sulfate 50 ml @ 25 mls/hr 1X ONCE 01/13/20 19:45 01/13/20 21:44 DC 01/14/20 01:11 25 MLS/HR Midazolam HCl 100 ml @ 0 mls/hr CONT PRN 01/13/20 22:15 01/17/20 12:18 DC 01/16/20 08:45 5 MLS/HR Midazolam HCl (Versed) 5 mg PRN Q1HR PRN 01/13/20 18:45 01/17/20 09:00 DC 01/13/20 19:53 5 MG Multivitamins (Thera M Plus) 1 tab DAILY 01/19/20 09:30 01/19/20 09:47 1 TAB Naloxone HCl (Narcan) 0.4 mg PRN Q2MIN PRN 01/14/20 16:00 Norepinephrine Bitartrate 32 mg/ Dextrose 250 ml @ 5.484 mls/ hr CONT PRN 01/14/20 07:45 01/17/20 12:18 DC 01/16/20 00:29 9.872 MLS/HR Norepinephrine Bitartrate 8 mg/ Dextrose 258 ml @ 22.678 mls/ hr CONT PRN 01/14/20 02:45 01/14/20 09:00 DC 01/14/20 02:42 32.9 MLS/HR Ondansetron HCl (Zofran) 4 mg PRN Q8HRS PRN 01/13/20 20:45 01/14/20 20:44 DC Pantoprazole Sodium (PROTONIX VIAL for IV PUSH) 40 mg DAILYAC 01/14/20 13:00 01/19/20 13:32 DC 01/19/20 08:31 40 MG Pantoprazole Sodium (Protonix) 40 mg DAILYAC 01/20/20 07:30 Piperacillin Sod/ Tazobactam Sod 4.5 gm/Sodium Chloride 100 ml @ 200 mls/hr Q6HRS 01/15/20 16:00 01/19/20 08:52 DC 01/19/20 06:27 200 MLS/HR Potassium Chloride 20 meq/ Dextrose/Sodium Chloride 1,010 ml @ 85 mls/hr [id number] 01/14/20 02:00 UNV Potassium Chloride/Dextrose/ Sod Cl 1,000 ml @ 85 mls/hr [id number] 01/14/20 02:15 01/14/20 21:20 DC 01/14/20 14:19 85 MLS/HR Potassium Chloride/Water 100 ml @ 100 mls/hr Q1H 01/14/20 11:00 01/14/20 14:59 DC 01/14/20 14:19 100 MLS/HR Rocuronium Oneill (Zemuron) 50 mg 1X ONCE 01/13/20 19:00 01/13/20 19:25 DC 01/13/20 19:52 50 MG Sertraline HCl (Zoloft) 50 mg DAILY 01/19/20 17:30 01/19/20 17:12 50 MG Sodium Bicarbonate (Sodium Bicarb Adult 8.4% Syr) 50 meq STK-MED ONCE 01/16/20 14:11 01/16/20 14:12 DC Sodium Chloride 1,000 ml @ 75 mls/hr 1X ONCE 01/16/20 16:45 01/17/20 06:04 DC 01/16/20 17:07 75 MLS/HR Vancomycin HCl (Vanco Per Pharmacy) 1 each PRN DAILY PRN 01/13/20 19:45 01/19/20 08:55 DC 01/17/20 09:49 1 EACH Vancomycin HCl (Vancomycin Trough Level) 1 each 1X ONCE 01/16/20 22:30 01/16/20 22:31 DC 01/16/20 22:30 1 EACH Vancomycin HCl 1.75 gm/Sodium Chloride 500 ml @ 250 mls/hr Q18H 01/14/20 17:00 Cancel Vancomycin HCl 2 gm/Sodium Chloride 500 ml @ 250 mls/hr Q24H 01/14/20 23:00 01/19/20 08:52 DC 01/18/20 23:05 250 MLS/HR Vasopressin 20 unit/Dextrose 101 ml @ 12 mls/hr CONT PRN 01/14/20 09:45 01/17/20 12:18 DC Physical Exam: Physical Exam: Refer to Physician's note. SPORT INTERN: No focal deficit MSK: No EPS, TDK, or abnormal involuntary movements Diagnosis: 1 acute delirium, multifactorial, mixed hyperactive and hypoactive 2. Presumably a suicidal attempt by intentional overdose 3. Major depressive disorder, recurrent, severe Assessment: He is a gentleman with previous history of intentional overdose readmitted with same circumstances of intentional overdose and found unresponsive by his neighbor. Apparently, he is trying to downplay with the severity of the situation and using his defenses. However, circumstances led to admission and history are consistent with of suicidal attempt in context of his ongoing depression, multiple medical health problems, and recent of his daughter by suicide overdose. Agitation, and confusion will give him temporary antipsychotics to calm him down. Antipsychotic will also help in resolution of delirium. Will obtain collateral information as well. 01/18/2020. Today, he appears a lot more clear with respect to mentation and mental status. However, concrete did not want to go to [facility] or change use of for placement. He is in agreement to go to [facility]. He is willing to sign voluntary for [facility]. Will check the status and criteria with [facility] as patient needs full nursing care and not able to perform ADLs on its own. 01/19/2020. Given patient's depression and anxiety it is reasonable to add his antidepressant Zoloft which is safer with his age. Meanwhile, placement can be looked for. Plan: 1 Continue Haldol 5 mg at bedtime for agitation and confusion. 2 add Zoloft 50 mg daily for depression and anxiety 3. Risks, benefits, alternatives of the treatment are discussed. 4. Avoid sedatives and hypnotics. Use only in case of severe agitation. 5. Monitor closely for symptomatology, safety, and agitation. Will adjust medications accordingly. 6. Applied delirium protocol. Keep bright sunlight during the day in room. Thank you for involving inpatient care DELONTE STARK MD Jan 19, 2020 17:28
[2020-01-19] MEDS: ENOXAPARIN 40 MG/0.4 ML SYRINGE. SQ SCH (20:53)
[2020-01-19] MEDS ORDERED: ATORVASTATIN CALCIUM 20 MG TABLET PO SCH (21:00)
[2020-01-19] MEDS: INSULIN GLARGINE SYRINGE. SQ SCH (21:00)
[2020-01-20 03:55] LABS: BASO % 1 % (0-3); EOS # 0.4 x10^3/uL (0.0-0.7); EOS % 5 % (0-3); HEMATOCRIT 28.5 % (39.0-53.0); HEMOGLOBIN 9.8 g/dL (13.0-17.5); LYMPH # 1.5 x10^3/uL (1.0-4.8); LYMPH % 18 % (24-48); MEAN CORPUSCULAR HEMOGLOBIN 31 pg (25-35); MEAN CORPUSCULAR HGB CONC 35 g/dL (31-37); MEAN CORPUSCULAR VOLUME 91 fL (79-100); MONO # 0.9 x10^3/uL (0.0-1.1); MONO % 11 % (0-9); NEUT # 5.5 x10^3/uL (1.8-7.7); NEUT % 65 % (31-73); PLATELET COUNT 171 x10^3/uL (140-400); RED BLOOD COUNT 3.13 x10^6/uL (4.30-5.70); RED CELL DISTRIBUTION WIDTH 15.3 % (11.5-14.5); WHITE BLOOD COUNT 8.4 x10^3/uL (4.0-11.0)
[2020-01-20 04:00] VITALS: BP 148/83
[2020-01-20 04:10] LABS: ALBUMIN 2.5 g/dL (3.4-5.0); ALBUMIN/GLOBULIN RATIO 0.7 (1.0-1.7); CALCIUM 8.5 mg/dL (8.5-10.1); CREATININE 1.6 mg/dL (0.7-1.3); GFR 43.5; POTASSIUM 3.5 mmol/L (3.5-5.1); TOTAL BILIRUBIN 0.4 mg/dL (0.2-1.0); TOTAL PROTEIN 6.2 g/dL (6.4-8.2)
[2020-01-20 07:00] VITALS: BP 136/81
--- NOTE | 2020-01-20 07:28 | PDOC ---
PULMONARY PROGRESS NOTES DATE: 01/20/20 TIME: 07:27 Subjective extubated 01/15, remains on room air denies sob, cough, pain. has cpap at home not using no overnight concerns from nursing Vitals Vital Signs Date Time Temp Pulse Resp B/P (MAP) Pulse Ox O2 Delivery O2 Flow Rate FiO2 01/20/20 04:00 98.7 90 18 148/83 (104) 95 Room Air 98.7 ROS: No Nausea, No Chest Pain General: Alert, No acute distress HEENT: Other (nc at perrl ) Lungs: Clear Cardiovascular: S1, S2 Abdomen: Soft, Non-tender Neuro Exam: Alert Extremities: Other (+1 RLE) Skin: Warm, Dry Labs Laboratory Tests Test 01/18/20 11:44 01/18/20 16:56 01/18/20 20:27 01/18/20 21:00 Glucose (Fingerstick) 259 mg/dL (70-99) 267 mg/dL (70-99) 232 mg/dL (70-99) Stool Campylobacter PCR Negative (NEGATIVE) Stool E. coli Shiga Toxins (PCR) Negative (NEGATIVE) Stool Salmonella PCR Negative (NEGATIVE) Stool Shigella PCR Negative (NEGATIVE) Clostridium difficile Toxin (PCR) Negative (NEGATIVE) Test 01/19/20 07:05 01/19/20 08:00 01/19/20 11:08 01/19/20 16:21 Glucose (Fingerstick) 198 mg/dL (70-99) 228 mg/dL (70-99) 223 mg/dL (70-99) White Blood Count 6.8 x10^3/uL (4.0-11.0) Red Blood Count 3.22 x10^6/uL (4.30-5.70) Hemoglobin 10.5 g/dL (13.0-17.5) Hematocrit 29.2 % (39.0-53.0) Mean Corpuscular Volume 91 fL (79-100) Mean Corpuscular Hemoglobin 33 pg (25-35) Mean Corpuscular Hemoglobin Concent 36 g/dL (31-37) Red Cell Distribution Width 15.3 % (11.5-14.5) Platelet Count 149 x10^3/uL (140-400) Neutrophils (%) (Auto) 73 % (31-73) Lymphocytes (%) (Auto) 14 % (24-48) Monocytes (%) (Auto) 11 % (0-9) Eosinophils (%) (Auto) 2 % (0-3) Basophils (%) (Auto) 1 % (0-3) Neutrophils # (Auto) 5.0 x10^3/uL (1.8-7.7) Lymphocytes # (Auto) 0.9 x10^3/uL (1.0-4.8) Monocytes # (Auto) 0.7 x10^3/uL (0.0-1.1) Eosinophils # (Auto) 0.2 x10^3/uL (0.0-0.7) Basophils # (Auto) 0.0 x10^3/uL (0.0-0.2) Sodium Level 144 mmol/L (136-145) Potassium Level 3.5 mmol/L (3.5-5.1) Chloride Level 110 mmol/L (98-107) Carbon Dioxide Level 19 mmol/L (21-32) Anion Gap 15 (6-14) Blood Urea Nitrogen 15 mg/dL (8-26) Creatinine 1.4 mg/dL (0.7-1.3) Estimated GFR (Cockcroft-Gault) 50.7 BUN/Creatinine Ratio 11 (6-20) Glucose Level 212 mg/dL (70-99) Calcium Level 8.9 mg/dL (8.5-10.1) Total Bilirubin 0.5 mg/dL (0.2-1.0) Aspartate Amino Transf (AST/SGOT) 18 U/L (15-37) Alanine Aminotransferase (ALT/SGPT) 20 U/L (16-63) Alkaline Phosphatase 86 U/L (46-116) Total Protein 6.3 g/dL (6.4-8.2) Albumin 2.7 g/dL (3.4-5.0) Albumin/Globulin Ratio 0.8 (1.0-1.7) Test 01/19/20 20:33 01/20/20 03:30 Glucose (Fingerstick) 247 mg/dL (70-99) White Blood Count 8.4 x10^3/uL (4.0-11.0) Red Blood Count 3.13 x10^6/uL (4.30-5.70) Hemoglobin 9.8 g/dL (13.0-17.5) Hematocrit 28.5 % (39.0-53.0) Mean Corpuscular Volume 91 fL (79-100) Mean Corpuscular Hemoglobin 31 pg (25-35) Mean Corpuscular Hemoglobin Concent 35 g/dL (31-37) Red Cell Distribution Width 15.3 % (11.5-14.5) Platelet Count 171 x10^3/uL (140-400) Neutrophils (%) (Auto) 65 % (31-73) Lymphocytes (%) (Auto) 18 % (24-48) Monocytes (%) (Auto) 11 % (0-9) Eosinophils (%) (Auto) 5 % (0-3) Basophils (%) (Auto) 1 % (0-3) Neutrophils # (Auto) 5.5 x10^3/uL (1.8-7.7) Lymphocytes # (Auto) 1.5 x10^3/uL (1.0-4.8) Monocytes # (Auto) 0.9 x10^3/uL (0.0-1.1) Eosinophils # (Auto) 0.4 x10^3/uL (0.0-0.7) Basophils # (Auto) 0.0 x10^3/uL (0.0-0.2) Sodium Level 140 mmol/L (136-145) Potassium Level 3.5 mmol/L (3.5-5.1) Chloride Level 107 mmol/L (98-107) Carbon Dioxide Level 20 mmol/L (21-32) Anion Gap 13 (6-14) Blood Urea Nitrogen 18 mg/dL (8-26) Creatinine 1.6 mg/dL (0.7-1.3) Estimated GFR (Cockcroft-Gault) 43.5 BUN/Creatinine Ratio 11 (6-20) Glucose Level 258 mg/dL (70-99) Calcium Level 8.5 mg/dL (8.5-10.1) Total Bilirubin 0.4 mg/dL (0.2-1.0) Aspartate Amino Transf (AST/SGOT) 12 U/L (15-37) Alanine Aminotransferase (ALT/SGPT) 20 U/L (16-63) Alkaline Phosphatase 72 U/L (46-116) Total Protein 6.2 g/dL (6.4-8.2) Albumin 2.5 g/dL (3.4-5.0) Albumin/Globulin Ratio 0.7 (1.0-1.7) Laboratory Tests Test 01/19/20 08:00 01/19/20 11:08 01/19/20 16:21 01/19/20 20:33 White Blood Count 6.8 x10^3/uL (4.0-11.0) Red Blood Count 3.22 x10^6/uL (4.30-5.70) Hemoglobin 10.5 g/dL (13.0-17.5) Hematocrit 29.2 % (39.0-53.0) Mean Corpuscular Volume 91 fL (79-100) Mean Corpuscular Hemoglobin 33 pg (25-35) Mean Corpuscular Hemoglobin Concent 36 g/dL (31-37) Red Cell Distribution Width 15.3 % (11.5-14.5) Platelet Count 149 x10^3/uL (140-400) Neutrophils (%) (Auto) 73 % (31-73) Lymphocytes (%) (Auto) 14 % (24-48) Monocytes (%) (Auto) 11 % (0-9) Eosinophils (%) (Auto) 2 % (0-3) Basophils (%) (Auto) 1 % (0-3) Neutrophils # (Auto) 5.0 x10^3/uL (1.8-7.7) Lymphocytes # (Auto) 0.9 x10^3/uL (1.0-4.8) Monocytes # (Auto) 0.7 x10^3/uL (0.0-1.1) Eosinophils # (Auto) 0.2 x10^3/uL (0.0-0.7) Basophils # (Auto) 0.0 x10^3/uL (0.0-0.2) Sodium Level 144 mmol/L (136-145) Potassium Level 3.5 mmol/L (3.5-5.1) Chloride Level 110 mmol/L (98-107) Carbon Dioxide Level 19 mmol/L (21-32) Anion Gap 15 (6-14) Blood Urea Nitrogen 15 mg/dL (8-26) Creatinine 1.4 mg/dL (0.7-1.3) Estimated GFR (Cockcroft-Gault) 50.7 BUN/Creatinine Ratio 11 (6-20) Glucose Level 212 mg/dL (70-99) Calcium Level 8.9 mg/dL (8.5-10.1) Total Bilirubin 0.5 mg/dL (0.2-1.0) Aspartate Amino Transf (AST/SGOT) 18 U/L (15-37) Alanine Aminotransferase (ALT/SGPT) 20 U/L (16-63) Alkaline Phosphatase 86 U/L (46-116) Total Protein 6.3 g/dL (6.4-8.2) Albumin 2.7 g/dL (3.4-5.0) Albumin/Globulin Ratio 0.8 (1.0-1.7) Glucose (Fingerstick) 228 mg/dL (70-99) 223 mg/dL (70-99) 247 mg/dL (70-99) Test 01/20/20 03:30 White Blood Count 8.4 x10^3/uL (4.0-11.0) Red Blood Count 3.13 x10^6/uL (4.30-5.70) Hemoglobin 9.8 g/dL (13.0-17.5) Hematocrit 28.5 % (39.0-53.0) Mean Corpuscular Volume 91 fL (79-100) Mean Corpuscular Hemoglobin 31 pg (25-35) Mean Corpuscular Hemoglobin Concent 35 g/dL (31-37) Red Cell Distribution Width 15.3 % (11.5-14.5) Platelet Count 171 x10^3/uL (140-400) Neutrophils (%) (Auto) 65 % (31-73) Lymphocytes (%) (Auto) 18 % (24-48) Monocytes (%) (Auto) 11 % (0-9) Eosinophils (%) (Auto) 5 % (0-3) Basophils (%) (Auto) 1 % (0-3) Neutrophils # (Auto) 5.5 x10^3/uL (1.8-7.7) Lymphocytes # (Auto) 1.5 x10^3/uL (1.0-4.8) Monocytes # (Auto) 0.9 x10^3/uL (0.0-1.1) Eosinophils # (Auto) 0.4 x10^3/uL (0.0-0.7) Basophils # (Auto) 0.0 x10^3/uL (0.0-0.2) Sodium Level 140 mmol/L (136-145) Potassium Level 3.5 mmol/L (3.5-5.1) Chloride Level 107 mmol/L (98-107) Carbon Dioxide Level 20 mmol/L (21-32) Anion Gap 13 (6-14) Blood Urea Nitrogen 18 mg/dL (8-26) Creatinine 1.6 mg/dL (0.7-1.3) Estimated GFR (Cockcroft-Gault) 43.5 BUN/Creatinine Ratio 11 (6-20) Glucose Level 258 mg/dL (70-99) Calcium Level 8.5 mg/dL (8.5-10.1) Total Bilirubin 0.4 mg/dL (0.2-1.0) Aspartate Amino Transf (AST/SGOT) 12 U/L (15-37) Alanine Aminotransferase (ALT/SGPT) 20 U/L (16-63) Alkaline Phosphatase 72 U/L (46-116) Total Protein 6.2 g/dL (6.4-8.2) Albumin 2.5 g/dL (3.4-5.0) Albumin/Globulin Ratio 0.7 (1.0-1.7) Medications Active Scripts Medications Dose Route/Sig Max Daily Dose Days Date Category Aspirin 325 Mg Tablet 325 Mg PO DAILYWBKFT 30 09/11/19 Rx Atorvastatin Calcium 20 Mg Tablet 20 Mg PO QHS 30 09/11/19 Rx Trazodone Hcl 50 Mg Tablet 1 Tab PO QHS 09/10/19 Reported Celexa (Citalopram Hydrobromide) 10 Mg Tablet 1 Tab PO DAILY 09/10/19 Reported Lantus Solostar (Insulin Glargine,Hum.rec.anlog) 100 Unit/1 Ml Insuln.pen 65 Unit SQ QHS 09/10/19 Reported Gabapentin (Gabapentin) 300 Mg Capsule 300 Mg PO TID 07/28/19 Reported Nexium Capsule (Esomeprazole Magnesium) 20 Mg Capsule.dr 1 Cap PO DAILY 07/28/19 Reported Actos (Pioglitazone Hcl) 30 Mg Tablet 30 Mg PO DAILY 07/28/19 Reported Metformin Hcl 500 Mg Tablet 500 Mg PO BIDWMEALS 07/28/19 Reported Comments CXR 01/18/2020 Impression: 1. Decreased patchy bibasilar opacities. Impression . IMPRESSION: Acute hypoxemic respiratory failure secondary to septic shock, source unknown, encephalopathy, suspected suicidal attempt with insulin, acute kidney injury, extubated 01/15. Doing well--resolved Abnormal chest x-ray-- improved CXR Acute kidney injury--resolved Septic shock.---resolved Diabetes mellitus Encephalopathy, metabolic--- improved Obstructive sleep apnea-hypopnea syndrome. History of cerebrovascular accident. Lower extremity edema--improved Plan . Currently on room air, stable from pulmonary standpoint advised to use cpap during sleep. aly the importance of tx discussed COVID-19.- NEG Lower extremity venous Doppler-- NEG Follow nephrology recommendations Continue antibiotic per ID, now off ABX diet per speech PT OT DVT/GI PPX D/W RN, pt EFREM BLUE MD Jan 20, 2020 07:28
[2020-01-20] MEDS ORDERED: PANTOPRAZOLE 40 MG TABLET.DR. PO SCH (07:30)
[2020-01-20] MEDS: ASCORBIC ACID 500 MG TABLET PO SCH (08:07)
[2020-01-20] MEDS: amLODIPine BESYLATE 5 MG TABLET PO SCH (08:07)
[2020-01-20] MEDS: ASPIRIN ENTERIC COATED 81 MG TABLET.DR. PO SCH (08:07)
[2020-01-20] MEDS: MULTIVITAMIN with MINERAL TABLET. PO SCH (08:07)
[2020-01-20] MEDS: SERTRALINE 50 MG TABLET. PO SCH (08:07)
[2020-01-20] MEDS: INSULIN LISPRO 300 UNITS/3 ML VIAL. SQ SCH ×3 (08:18→17:00)
--- NOTE | 2020-01-20 10:30 | PDOC ---
PROGRESS NOTES Date of Service: DATE: 01/20/20 TIME: 10:23 Chief Complaint Chief Complaint TRANSFER DX Acute encephalopathy Suicide attempt/ major depression Fall, found down on kitchen floor. Hyperglycemia and hypoglycemia DM. uncontrolled HTN. HLD. Cancer. Morbid obesity. Left BKA. Acute hypoxemic respiratory failure secondary to septic shock, source unknown, encephalopathy, acute kidney injury, rule out non-ST elevation myocardial infarction versus others. Abnormal chest x-ray. Acute kidney injury - likely vasomotor nephropathy Shock. Obstructive sleep apnea-hypopnea syndrome. History of cerebrovascular accident. Lower extremity edema BRYCE ON CT 01/18 mild hydronephrosis and hydroureter to the level of the urinary bladder which appears moderately distended. This could be related to intermittent bladder outlet obstruction or neurogenic bladder with chronic back pressure. Chronic vesicoureteral reflux is also possible. Underlying pyelonephritis and ureteritis not excluded. There is no calcific stone. GERD Mildly dilated fluid-filled thoracic esophagus, possibly related to chronic GE reflux or esophageal dysmotility. 01/17 HE STATES HE HAS BEEN VERY DEPRESSED RE 'S HEALTH, Living situation, of daughter 01/18 c/o llq abd discomfort, ct abd, pelvis pending 01/19 UROLOGY CONSULT NEEDED will try [facility] for transfer consultation 38 minutes time spent with pt exam, chart review d/c planning , > 50% of time spent with exam, chart review, pt care coordination History of Present Illness History of Present Illness He is a gentleman with multiple medical comorbidities and previous hi story of suicidal attempt brought in by his neighbor when he was found unresponsive by him. He has history of previous suicide attempt with same circumstances. At that point, he presumably took overdose of insulin. Patient was intubated, and extubated today. Upon interview, he is responsive but confused. Continue to ruminate that he wanted to talk to his neighbor. He appears paranoid, when asked about intentions of overdose to take his life, he appears little bit upset and telling that he has the right to know who said it was an intentional overdose. He categorically denies that it was something intentional. He is portraying it as an accidental overdose. Denies divert depression and anxiety. Skeptical why he is labeled as a suicide attempt. Denies any intent or plan. He is upset that why is everyone judgmental however he is told that no one is judging him. Questions were being asked only for safety concern. Patient wanting to talk to his neighbor and asking underwriter solicitation director to call contact his neighbor right away. He is restless, argumentative, and verbally agitated. Also wanting to talk to his . Due to patient's limited insight, he is not communicating effectively. Reviewed H&P by this underwriter solicitation director from previous admission and read as: He is a pleasant gentleman admitted with intentional overdose on his prescribed insulin found unresponsive due to severe hypoglycemia. Reportedly, he overdosed with intentions to take his life. Reportedly, 2 weeks ago his 34-year-old daughter committed suicide by overdose. Upon interview he appears cooperative and interactive. States, 2 weeks ago his daughter who was living with him committed suicide by overdose. States, he found his daughter pulseless and cold. States, due to the stress of her and grief he was not processing and right direction. States, he was in deep grief and sad. States, his whom he for 39 years as hospitalized as well for hip replacement. However, he appears insightful, cognizant of the fact that "I made a stupid mistake which I shouldn't, and I apologize". States, he is adi in God and would like to do anything in future to harm her . States, when he spoke to his and told her that he was hospitalized for intentional overdose, she got very upset and scared. He is, he knows that "my doctors are in having and God will take care of it". He denies depression and treatment of depression. Chart review, indicates history of depression and reported medications citalopram 40 mg daily. When asked from patient, he couldn't recall diagnoses of depression or citalopram. States, he has learned his lesson. He denies hopelessness, insomnia, extremely sad mood, worthlessness, or loss of interest. He denies suicidal or homicidal thoughts intent or plan. He denies previous suicidal attempt or history of recurrent suicidal ideation, except for the last few days prior to attempts. He denies history of overt depression or anxiety, illicit substance use, bipolar mood disorder, psychosis, or PTSD. States, is 24 years old daughter was with interstitial lung disease in 2004. Denies nightmares, flashbacks or chronic bereavement. He denies access to firearms. Mr Soliz is a 65 yo M w/ PMHx diabetes type 2, depression, dyslipidemia, hypertension, CVA, PVD s/p left BKA who comes to the hospital due to being found unresponsive by his neighbor. Patient has had suicide attempts in the past. There is possible concerns of empty pill bottles and insulin OD. History is obtained from ED physician charting and chart review. 01/14: ICU requiring high dose levophed and fluid boluses as well as vent. CXR reviewed with left middle platelike atelectasis. CT head did negative for acute findings. Afebrile. Hypoglycemic overnight started on D10 infusion. WBC 17 K Hb 10.40.8, glucose 80, mag 1.8, TSH 0.160. 01/15: Afebrile overnight. Vent 35% and PEEP of 5, and off sedation today. Still on low-dose Levophed. Not waking up very well. Labs stable glucose in the 200s. 01/17 await placement Afebrile. On room air . Was extubated late on 01/16/2020. Labs stable hemodynamically stable. He does admit to attempting suicide to me today notes after that suicide of his daughter and of his other daughter he has had suicidal thoughts for quite a while and due to the worsening health of his who had an infected hip arthroplasty and is now wheelchair-bound and the $300,000 each of them individually O and healthcare bills he felt hopeless and attempted to kill himself so that he could be with his daughters, he still feels hopeless at this time and still plans to be with his daughters in any way possible. He understands that inpatient psychiatric care would be appropriate and he is currently amenable to this, he wants to know if there is a better solution. Plan: We will wean O2 as tolerated Continue one-to-one sitter Psychiatry and PAT team to see Needs inpatient psych placement medical surgical floor Vitals Vitals Vital Signs Date Time Temp Pulse Resp B/P (MAP) Pulse Ox O2 Delivery O2 Flow Rate FiO2 01/20/20 08:07 93 136/81 01/20/20 07:35 Room Air 8/8/20 07:00 98.6 18 96 98.6 Physical Exam General: Alert, Oriented X3, Cooperative, No acute distress Heart: Regular rate, Normal S1 Lungs: Clear Abdomen: Normal bowel sounds Skin: No rashes Labs LABS CT abdomen pelvis without contrast dated 01/19/2020. No comparison available. CLINICAL INDICATION: Pain. TECHNIQUE: Contiguous axial imaging the abdomen pelvis performed without the administration of IV or oral contrast. One or more of the following individualized dose reduction techniques were utilized for this examination: 1. Automated exposure control 2. Adjustment of the mA and/or kV according to patient size 3. Use of iterative reconstruction technique. FINDINGS: Limited images of lung bases show small bilateral pleural effusions. Heart size is within normal limits. Small pericardial effusion. Coronary artery calcifications. The esophagus is mildly dilated and fluid-filled. There are borderline enlarged right hilar and subcarinal lymph nodes measuring up to 10 mm short axis. Patchy density in the lower lobes, likely atelectasis. Solid abdominal viscera not well evaluated in the absence of contrast material. No apparent attenuation abnormality of the liver or spleen. Gallbladder surgically absent. Trace amount of perihepatic ascites. Pancreas is somewhat atrophic. Adrenal glands unremarkable. There is mild bilateral hydroureter and pelvic caliectasis. No calcific renal or ureteral stone. Inflammatory stranding in the bilateral perinephric fat. The urinary bladder is moderately distended with Brooks catheter in place. Small amount of gas density in the bladder lumen. No apparent wall thickening. Unopacified GI tract normal in caliber and contour. No focal bowel wall thickening. No inflammatory changes in the mesentery. No adenopathy. Abdominal aorta is normal in caliber. Images of the pelvis show normal-sized prostate gland. No free fluid or pelvic lymphadenopathy. Diffuse vascular calcinosis. Bone windows show no acute findings. Multilevel spondylosis. IMPRESSION: 1. There is mild hydronephrosis and hydroureter to the level of the urinary bladder which appears moderately distended. This could be related to intermittent bladder outlet obstruction or neurogenic bladder with chronic back pressure. Chronic vesicoureteral reflux is also possible. Underlying pyelonephritis and ureteritis not excluded. There is no calcific stone. 2. Bibasilar airspace disease, likely atelectasis. There are small bilateral pleural effusions. 3. Mildly dilated fluid-filled thoracic esophagus, possibly related to chronic GE reflux or esophageal dysmotility. 4. Small pericardial effusion. 5. Small amount of ascites. Electronically signed by: Dipesh Garcia MD (01/19/2020 3:45 PM) [facility] DICTATED and SIGNED BY: DIPESH GARCIA MD DATE: 01/19/20 1545 Laboratory Tests Test 01/19/20 11:08 01/19/20 16:21 01/19/20 20:33 01/20/20 03:30 Glucose (Fingerstick) 228 mg/dL (70-99) 223 mg/dL (70-99) 247 mg/dL (70-99) White Blood Count 8.4 x10^3/uL (4.0-11.0) Red Blood Count 3.13 x10^6/uL (4.30-5.70) Hemoglobin 9.8 g/dL (13.0-17.5) Hematocrit 28.5 % (39.0-53.0) Mean Corpuscular Volume 91 fL (79-100) Mean Corpuscular Hemoglobin 31 pg (25-35) Mean Corpuscular Hemoglobin Concent 35 g/dL (31-37) Red Cell Distribution Width 15.3 % (11.5-14.5) Platelet Count 171 x10^3/uL (140-400) Neutrophils (%) (Auto) 65 % (31-73) Lymphocytes (%) (Auto) 18 % (24-48) Monocytes (%) (Auto) 11 % (0-9) Eosinophils (%) (Auto) 5 % (0-3) Basophils (%) (Auto) 1 % (0-3) Neutrophils # (Auto) 5.5 x10^3/uL (1.8-7.7) Lymphocytes # (Auto) 1.5 x10^3/uL (1.0-4.8) Monocytes # (Auto) 0.9 x10^3/uL (0.0-1.1) Eosinophils # (Auto) 0.4 x10^3/uL (0.0-0.7) Basophils # (Auto) 0.0 x10^3/uL (0.0-0.2) Sodium Level 140 mmol/L (136-145) Potassium Level 3.5 mmol/L (3.5-5.1) Chloride Level 107 mmol/L (98-107) Carbon Dioxide Level 20 mmol/L (21-32) Anion Gap 13 (6-14) Blood Urea Nitrogen 18 mg/dL (8-26) Creatinine 1.6 mg/dL (0.7-1.3) Estimated GFR (Cockcroft-Gault) 43.5 BUN/Creatinine Ratio 11 (6-20) Glucose Level 258 mg/dL (70-99) Calcium Level 8.5 mg/dL (8.5-10.1) Total Bilirubin 0.4 mg/dL (0.2-1.0) Aspartate Amino Transf (AST/SGOT) 12 U/L (15-37) Alanine Aminotransferase (ALT/SGPT) 20 U/L (16-63) Alkaline Phosphatase 72 U/L (46-116) Total Protein 6.2 g/dL (6.4-8.2) Albumin 2.5 g/dL (3.4-5.0) Albumin/Globulin Ratio 0.7 (1.0-1.7) Test 01/20/20 07:52 Glucose (Fingerstick) 238 mg/dL (70-99) Assessment and Plan Assessmemt and Plan Problems Medical Problems: (1) Acute renal insufficiency Status: Acute (2) Altered mental status Status: Acute (3) Aspiration pneumonia Status: Acute (4) Hyperglycemia Status: Acute (5) Hypomagnesemia Status: Acute (6) Septic shock Status: Acute Comment Review of Relevant I have reviewed the following items lauryn (where applicable) has been applied. Labs Laboratory Tests Test 01/18/20 11:44 01/18/20 16:56 01/18/20 20:27 01/18/20 21:00 Glucose (Fingerstick) 259 mg/dL (70-99) 267 mg/dL (70-99) 232 mg/dL (70-99) Stool Campylobacter PCR Negative (NEGATIVE) Stool E. coli Shiga Toxins (PCR) Negative (NEGATIVE) Stool Salmonella PCR Negative (NEGATIVE) Stool Shigella PCR Negative (NEGATIVE) Clostridium difficile Toxin (PCR) Negative (NEGATIVE) Test 01/19/20 07:05 01/19/20 08:00 01/19/20 11:08 01/19/20 16:21 Glucose (Fingerstick) 198 mg/dL (70-99) 228 mg/dL (70-99) 223 mg/dL (70-99) White Blood Count 6.8 x10^3/uL (4.0-11.0) Red Blood Count 3.22 x10^6/uL (4.30-5.70) Hemoglobin 10.5 g/dL (13.0-17.5) Hematocrit 29.2 % (39.0-53.0) Mean Corpuscular Volume 91 fL (79-100) Mean Corpuscular Hemoglobin 33 pg (25-35) Mean Corpuscular Hemoglobin Concent 36 g/dL (31-37) Red Cell Distribution Width 15.3 % (11.5-14.5) Platelet Count 149 x10^3/uL (140-400) Neutrophils (%) (Auto) 73 % (31-73) Lymphocytes (%) (Auto) 14 % (24-48) Monocytes (%) (Auto) 11 % (0-9) Eosinophils (%) (Auto) 2 % (0-3) Basophils (%) (Auto) 1 % (0-3) Neutrophils # (Auto) 5.0 x10^3/uL (1.8-7.7) Lymphocytes # (Auto) 0.9 x10^3/uL (1.0-4.8) Monocytes # (Auto) 0.7 x10^3/uL (0.0-1.1) Eosinophils # (Auto) 0.2 x10^3/uL (0.0-0.7) Basophils # (Auto) 0.0 x10^3/uL (0.0-0.2) Sodium Level 144 mmol/L (136-145) Potassium Level 3.5 mmol/L (3.5-5.1) Chloride Level 110 mmol/L (98-107) Carbon Dioxide Level 19 mmol/L (21-32) Anion Gap 15 (6-14) Blood Urea Nitrogen 15 mg/dL (8-26) Creatinine 1.4 mg/dL (0.7-1.3) Estimated GFR (Cockcroft-Gault) 50.7 BUN/Creatinine Ratio 11 (6-20) Glucose Level 212 mg/dL (70-99) Calcium Level 8.9 mg/dL (8.5-10.1) Total Bilirubin 0.5 mg/dL (0.2-1.0) Aspartate Amino Transf (AST/SGOT) 18 U/L (15-37) Alanine Aminotransferase (ALT/SGPT) 20 U/L (16-63) Alkaline Phosphatase 86 U/L (46-116) Total Protein 6.3 g/dL (6.4-8.2) Albumin 2.7 g/dL (3.4-5.0) Albumin/Globulin Ratio 0.8 (1.0-1.7) Test 01/19/20 20:33 01/20/20 03:30 01/20/20 07:52 Glucose (Fingerstick) 247 mg/dL (70-99) 238 mg/dL (70-99) White Blood Count 8.4 x10^3/uL (4.0-11.0) Red Blood Count 3.13 x10^6/uL (4.30-5.70) Hemoglobin 9.8 g/dL (13.0-17.5) Hematocrit 28.5 % (39.0-53.0) Mean Corpuscular Volume 91 fL (79-100) Mean Corpuscular Hemoglobin 31 pg (25-35) Mean Corpuscular Hemoglobin Concent 35 g/dL (31-37) Red Cell Distribution Width 15.3 % (11.5-14.5) Platelet Count 171 x10^3/uL (140-400) Neutrophils (%) (Auto) 65 % (31-73) Lymphocytes (%) (Auto) 18 % (24-48) Monocytes (%) (Auto) 11 % (0-9) Eosinophils (%) (Auto) 5 % (0-3) Basophils (%) (Auto) 1 % (0-3) Neutrophils # (Auto) 5.5 x10^3/uL (1.8-7.7) Lymphocytes # (Auto) 1.5 x10^3/uL (1.0-4.8) Monocytes # (Auto) 0.9 x10^3/uL (0.0-1.1) Eosinophils # (Auto) 0.4 x10^3/uL (0.0-0.7) Basophils # (Auto) 0.0 x10^3/uL (0.0-0.2) Sodium Level 140 mmol/L (136-145) Potassium Level 3.5 mmol/L (3.5-5.1) Chloride Level 107 mmol/L (98-107) Carbon Dioxide Level 20 mmol/L (21-32) Anion Gap 13 (6-14) Blood Urea Nitrogen 18 mg/dL (8-26) Creatinine 1.6 mg/dL (0.7-1.3) Estimated GFR (Cockcroft-Gault) 43.5 BUN/Creatinine Ratio 11 (6-20) Glucose Level 258 mg/dL (70-99) Calcium Level 8.5 mg/dL (8.5-10.1) Total Bilirubin 0.4 mg/dL (0.2-1.0) Aspartate Amino Transf (AST/SGOT) 12 U/L (15-37) Alanine Aminotransferase (ALT/SGPT) 20 U/L (16-63) Alkaline Phosphatase 72 U/L (46-116) Total Protein 6.2 g/dL (6.4-8.2) Albumin 2.5 g/dL (3.4-5.0) Albumin/Globulin Ratio 0.7 (1.0-1.7) Laboratory Tests Test 01/19/20 11:08 01/19/20 16:21 01/19/20 20:33 01/20/20 03:30 Glucose (Fingerstick) 228 mg/dL (70-99) 223 mg/dL (70-99) 247 mg/dL (70-99) White Blood Count 8.4 x10^3/uL (4.0-11.0) Red Blood Count 3.13 x10^6/uL (4.30-5.70) Hemoglobin 9.8 g/dL (13.0-17.5) Hematocrit 28.5 % (39.0-53.0) Mean Corpuscular Volume 91 fL (79-100) Mean Corpuscular Hemoglobin 31 pg (25-35) Mean Corpuscular Hemoglobin Concent 35 g/dL (31-37) Red Cell Distribution Width 15.3 % (11.5-14.5) Platelet Count 171 x10^3/uL (140-400) Neutrophils (%) (Auto) 65 % (31-73) Lymphocytes (%) (Auto) 18 % (24-48) Monocytes (%) (Auto) 11 % (0-9) Eosinophils (%) (Auto) 5 % (0-3) Basophils (%) (Auto) 1 % (0-3) Neutrophils # (Auto) 5.5 x10^3/uL (1.8-7.7) Lymphocytes # (Auto) 1.5 x10^3/uL (1.0-4.8) Monocytes # (Auto) 0.9 x10^3/uL (0.0-1.1) Eosinophils # (Auto) 0.4 x10^3/uL (0.0-0.7) Basophils # (Auto) 0.0 x10^3/uL (0.0-0.2) Sodium Level 140 mmol/L (136-145) Potassium Level 3.5 mmol/L (3.5-5.1) Chloride Level 107 mmol/L (98-107) Carbon Dioxide Level 20 mmol/L (21-32) Anion Gap 13 (6-14) Blood Urea Nitrogen 18 mg/dL (8-26) Creatinine 1.6 mg/dL (0.7-1.3) Estimated GFR (Cockcroft-Gault) 43.5 BUN/Creatinine Ratio 11 (6-20) Glucose Level 258 mg/dL (70-99) Calcium Level 8.5 mg/dL (8.5-10.1) Total Bilirubin 0.4 mg/dL (0.2-1.0) Aspartate Amino Transf (AST/SGOT) 12 U/L (15-37) Alanine Aminotransferase (ALT/SGPT) 20 U/L (16-63) Alkaline Phosphatase 72 U/L (46-116) Total Protein 6.2 g/dL (6.4-8.2) Albumin 2.5 g/dL (3.4-5.0) Albumin/Globulin Ratio 0.7 (1.0-1.7) Test 01/20/20 07:52 Glucose (Fingerstick) 238 mg/dL (70-99) Microbiology 01/14/20 Blood Culture - Final, Complete NO GROWTH AFTER 5 DAYS Medications Current Medications Sodium Chloride 1,000 ml @ 1,000 mls/hr 1X ONCE IV Last administered on 01/13/20at 18:20; Start 01/13/20 at 18:45; Stop 01/13/20 at 19:44; Status DC Sodium Chloride 1,000 ml @ 1,000 mls/hr 1X ONCE IV Last administered on 01/13/20at 18:35; Start 01/13/20 at 18:45; Stop 01/13/20 at 19:44; Status DC Fentanyl Citrate (Fentanyl 2ml Vial) 50 mcg PRN Q1HR PRN IV SEE COMMENTS Last administered on 01/16/20at 17:12; Start 01/13/20 at 18:45; Stop 01/16/20 at 19:23; Status DC Chlorhexidine Gluconate (Peridex) 15 ml BID MM Last administered on 01/16/20at 08:59; Start 01/13/20 at 21:00; Stop 01/16/20 at 19:23; Status DC Midazolam HCl (Versed) 5 mg PRN Q1HR PRN IV AGITATION Last administered on 01/13/20at 19:53; Start 01/13/20 at 18:45; Stop 01/17/20 at 09:00; Status DC Etomidate (Amidate) 20 mg STK-MED ONCE IV ; Start 01/13/20 at 18:58; Stop 01/13/20 at 18:59; Status DC Rocuronium Jonancy (Zemuron) 50 mg STK-MED ONCE .ROUTE ; Start 01/13/20 at 18:59; Stop 01/13/20 at 18:59; Status DC Rocuronium Jonancy (Zemuron) 50 mg 1X ONCE IV Last administered on 01/13/20at 19:52; Start 01/13/20 at 19:00; Stop 01/13/20 at 19:25; Status DC Etomidate (Amidate) 20 mg 1X ONCE IV Last administered on 01/13/20at 19:52; Start 01/13/20 at 19:00; Stop 01/13/20 at 19:25; Status DC Potassium Chloride/Water 100 ml @ 100 mls/hr Q1H IV Last administered on 01/14/20at 00:34; Start 01/13/20 at 19:15; Stop 01/13/20 at 23:14; Status DC Norepinephrine Bitartrate 8 mg/ Dextrose 258 ml @ 24.633 mls/ hr 1X ONCE IV Last administered on 01/13/20at 19:45; Start 01/13/20 at 19:45; Stop 01/14/20 at 06:13; Status DC Piperacillin Sod/ Tazobactam Sod 4.5 gm/Sodium Chloride 100 ml @ 200 mls/hr 1X ONCE IV Last administered on 01/13/20at 19:45; Start 01/13/20 at 19:45; Stop 01/13/20 at 20:14; Status DC Sodium Chloride 1,000 ml @ 1,000 mls/hr 1X ONCE IV Last administered on 01/13/20at 19:45; Start 01/13/20 at 19:45; Stop 01/13/20 at 20:44; Status DC Levofloxacin/ Dextrose 150 ml @ 100 mls/hr 1X ONCE IV Last administered on 01/13/20at 21:05; Start 01/13/20 at 21:00; Stop 01/13/20 at 22:29; Status DC Vancomycin HCl (Vanco Per Pharmacy) 1 each PRN DAILY PRN MC SEE COMMENTS Last administered on 01/17/20at 09:49; Start 01/13/20 at 19:45; Stop 01/19/20 at 08:55; Status DC Magnesium Sulfate 50 ml @ 25 mls/hr 1X ONCE IV Last administered on 01/14/20at 01:11; Start 01/13/20 at 19:45; Stop 01/13/20 at 21:44; Status DC Insulin Human Regular (HumuLIN R VIAL) 12 unit 1X ONCE SQ Last administered on 01/13/20at 19:45; Start 01/13/20 at 19:45; Stop 01/13/20 at 19:46; Status DC Ondansetron HCl (Zofran) 4 mg PRN Q8HRS PRN IV NAUSEA/VOMITING; Start 01/13/20 at 20:45; Stop 01/14/20 at 20:44; Status DC Insulin Human Lispro (HumaLOG) 0-5 UNITS TIDWMEALS SQ Last administered on 01/16/20at 08:43; Start 01/14/20 at 08:00; Stop 01/16/20 at 12:43; Status DC Dextrose (Dextrose 50%-Water Syringe) 12.5 gm PRN Q15MIN PRN IV SEE COMMENTS Last administered on 01/15/20at 00:41; Start 01/13/20 at 20:45; Stop 01/17/20 at 0 9:01; Status DC Sodium Chloride 1,000 ml @ 100 mls/hr 1X ONCE IV Last administered on 01/13/20at 21:10; Start 01/13/20 at 20:45; Stop 01/14/20 at 06:44; Status DC Vancomycin HCl 2 gm/Sodium Chloride 500 ml @ 250 mls/hr 1X ONCE IV Last administered on 01/13/20at 22:59; Start 01/13/20 at 21:00; Stop 01/13/20 at 22:59; Status DC Midazolam HCl 100 ml @ 0 mls/hr CONT PRN IV SEE PROTOCOL Last administered on 01/16/20at 08:45; Start 01/13/20 at 22:15; Stop 01/17/20 at 12:18; Status DC Vancomycin HCl 2 gm/Sodium Chloride 500 ml @ 250 mls/hr Q24H IV Last administered on 01/18/20at 23:05; Start 01/14/20 at 23:00; Stop 01/19/20 at 08:52; Status DC Vancomycin HCl (Vancomycin Trough Level) 1 each 1X ONCE MC Last administered on 01/15/20at 22:30; Start 01/15/20 at 22:30; Stop 01/15/20 at 22:31; Status DC Enoxaparin Sodium (Lovenox Per Pharmacy Prophylaxis Dosing) 1 each PRN DAILY PRN MC SEE COMMENTS; Start 01/14/20 at 02:00 Potassium Chloride 20 meq/ Dextrose/Sodium Chloride 1,010 ml @ 85 mls/hr [id number] IV ; Start 01/14/20 at 02:00; Status UNV Potassium Chloride/Dextrose/ Sod Cl 1,000 ml @ 85 mls/hr [id number] IV Last administered on 01/14/20at 14:19; Start 01/14/20 at 02:15; Stop 01/14/20 at 21:20; Status DC Enoxaparin Sodium (Lovenox 40mg Syringe) 40 mg QHS SQ Last administered on 01/19/20at 20:53; Start 01/14/20 at 02:15 Norepinephrine Bitartrate 8 mg/ Dextrose 258 ml @ 22.678 mls/ hr CONT PRN IV PER PROTOCOL Last administered on 01/14/20at 02:42; Start 01/14/20 at 02:45; Stop 01/14/20 at 09:00; Status DC Norepinephrine Bitartrate 32 mg/ Dextrose 250 ml @ 5.484 mls/ hr CONT PRN IV SEE I/O RECORD Last administered on 01/16/20at 00:29; Start 01/14/20 at 07:45; Stop 01/17/20 at 12:18; Status DC Glucagon (Glucagen) 1 mg PRN Q15MIN PRN IV LOW BLOOD SUGAR Last administered on 01/15/20at 04:12; Start 01/14/20 at 09:30 Vasopressin 20 unit/Dextrose 101 ml @ 12 mls/hr CONT PRN IV SEE I/O RECORD; Start 01/14/20 at 09:45; Stop 01/17/20 at 12:18; Status DC Potassium Chloride/Water 100 ml @ 100 mls/hr Q1H IV Last administered on 01/14/20at 14:19; Start 01/14/20 at 11:00; Stop 01/14/20 at 14:59; Status DC Vancomycin HCl 1.75 gm/Sodium Chloride 500 ml @ 250 mls/hr Q18H IV ; Start 01/14/20 at 17:00; Status Cancel Pantoprazole Sodium (PROTONIX VIAL for IV PUSH) 40 mg DAILYAC IVP Last administered on 01/19/20at 08:31; Start 01/14/20 at 13:00; Stop 01/19/20 at 13:32; Status DC Fentanyl Citrate 30 ml @ 0 mls/hr CONT PRN IV SEE I/O RECORD; Start 01/14/20 at 16:00; Status Cancel Naloxone HCl (Narcan) 0.4 mg PRN Q2MIN PRN IV SEE INSTRUCTIONS; Start 01/14/20 at 16:00 Sodium Chloride 1,000 ml @ 25 mls/hr Q24H IV Last administered on 01/17/20at 11:30; Start 01/14/20 at 15:52; Stop 01/18/20 at 15:21; Status DC Fentanyl Citrate 30 ml @ 0 mls/hr CONT PRN IV SEE PROTOCOL Last administered on 01/16/20at 09:12; Start 01/14/20 at 16:00; Stop 01/17/20 at 12:18; Status DC Dextrose 1,000 ml @ 75 mls/hr [id number] IV Last administered on 01/15/20at 11:15; Start 01/14/20 at 21:30; Stop 01/15/20 at 15:50; Status DC Sodium Chloride 1,000 ml @ 1,000 mls/hr 1X ONCE IV Last administered on 01/15/20at 09:48; Start 01/15/20 at 09:45; Stop 01/15/20 at 10:44; Status DC Sodium Chloride 500 ml @ 500 mls/hr 1X ONCE IV Last administered on 01/15/20at 12:30; Start 01/15/20 at 12:30; Stop 01/15/20 at 13:29; Status DC Piperacillin Sod/ Tazobactam Sod 4.5 gm/Sodium Chloride 100 ml @ 200 mls/hr Q6HRS IV Last administered on 01/19/20at 06:27; Start 01/15/20 at 16:00; Stop 01/19/20 at 08:52; Status DC Aspirin (Ecotrin) 81 mg DAILYWBKFT PO Last administered on 01/20/20at 08:07; Start 01/16/20 at 08:00 Albumin Human 250 ml @ 62.5 mls/hr 1X ONCE IV Last administered on 01/16/20at 11:33; Start 01/16/20 at 11:15; Stop 01/16/20 at 15:14; Status DC Aspirin (Omkar Aspirin) 325 mg DAILYWBKFT PO ; Start 01/17/20 at 08:00; Stop 01/17/20 at 09:23; Status DC Atorvastatin Calcium (Lipitor) 20 mg QHS PO ; Start 01/16/20 at 21:00; Stop 01/16/20 at 12:45; Status DC Insulin Glargine (Lantus Syringe) 20 unit QHS SQ Last administered on 01/19/20at 21:00; Start 01/16/20 at 21:00 Insulin Human Lispro (HumaLOG) 0-7 UNITS TIDWMEALS SQ Last administered on 01/20/20at 08:18; Start 01/16/20 at 17:00 Dextrose (Dextrose 50%-Water Syringe) 12.5 gm PRN Q15MIN PRN IV SEE COMMENTS; Start 01/16/20 at 12:45 Sodium Bicarbonate (Sodium Bicarb Adult 8.4% Syr) 50 meq 1X ONCE IV Last administered on 01/16/20at 14:13; Start 01/16/20 at 14:15; Stop 01/16/20 at 14:16; Status DC Sodium Bicarbonate (Sodium Bicarb Adult 8.4% Syr) 50 meq 1X ONCE IV Last administered on 01/16/20at 14:13; Start 01/16/20 at 14:15; Stop 01/16/20 at 14:16; Status DC Sodium Bicarbonate (Sodium Bicarb Adult 8.4% Syr) 50 meq STK-MED ONCE .ROUTE ; Start 01/16/20 at 14:11; Stop 01/16/20 at 14:12; Status DC Sodium Chloride 1,000 ml @ 75 mls/hr 1X ONCE IV Last administered on 01/16/20at 17:07; Start 01/16/20 at 16:45; Stop 01/17/20 at 06:04; Status DC Vancomycin HCl (Vancomycin Trough Level) 1 each 1X ONCE MC Last administered on 01/16/20at 22:30; Start 01/16/20 at 22:30; Stop 01/16/20 at 22:31; Status DC Haloperidol Lactate (Haldol Inj) 5 mg PRN Q6HRS PRN IVP AGITATION Last administered on 01/19/20 08:31; Start 01/16/20 at 18:00 Haloperidol Lactate (Haldol Inj) 5 mg 1X ONCE IVP Last administered on 01/16/20at 18:00; Start 01/16/20 at 18:00; Stop 01/16/20 at 18:01; Status DC Multivitamins (Thera M Plus) 1 tab DAILY PO Last administered on 01/20/20 08 :07; Start 01/19/20 at 09:30 Ascorbic Acid (Vitamin C) 500 mg DAILY PO Last administered on 01/20/20 08:07; Start 01/19/20 at 09:30 Amlodipine Besylate (Norvasc) 5 mg DAILY PO Last administered on 01/20/20 08:07; Start 01/19/20 at 10:00 Atorvastatin Calcium (Lipitor) 20 mg QHS PO Last administered on 01/19/20 20:52; Start 01/19/20 at 21:00 Hydromorphone HCl (Dilaudid) 0.5 mg 1X ONCE IV Last administered on 01/19/20at 11:46; Start 01/19/20 at 11:45; Stop 01/19/20 at 11:46; Status DC Pantoprazole Sodium (Protonix) 40 mg DAILYAC PO Last administered on 8/8/20at 08:07; Start 01/20/20 at 07:30 Sertraline HCl (Zoloft) 50 mg DAILY PO Last administered on 01/20/20at 08:07; Start 01/19/20 at 17:30 Active Scripts Active Aspirin 325 Mg Tablet 325 Mg PO DAILYWBKFT 30 Days Atorvastatin Calcium 20 Mg Tablet 20 Mg PO QHS 30 Days Reported Trazodone Hcl 50 Mg Tablet 1 Tab PO QHS Celexa (Citalopram Hydrobromide) 10 Mg Tablet 1 Tab PO DAILY Lantus Solostar (Insulin Glargine,Hum.rec.anlog) 100 Unit/1 Ml Insuln.pen 65 Unit SQ QHS Gabapentin (Gabapentin) 300 Mg Capsule 300 Mg PO TID Nexium Capsule (Esomeprazole Magnesium) 20 Mg Capsule. 1 Cap PO DAILY Actos (Pioglitazone Hcl) 30 Mg Tablet 30 Mg PO DAILY Metformin Hcl 500 Mg Tablet 500 Mg PO BIDWMEALS Vitals/I & O Vital Sign - Last 24 Hours 01/19/20 01/19/20 01/19/20 01/19/20 11:05 11:46 13:08 15:14 Temp 97.6 97.4 97.6 97.4 Pulse 105 107 100 Resp 18 20 B/P (MAP) 152/113 (126) 139/80 (99) 141/90 (107) Pulse Ox 93 93 95 O2 Delivery Room Air Room Air Room Air 01/19/20 01/19/20 01/19/20 01/20/20 19:00 20:00 23:00 04:00 Temp 97.9 98.4 98.7 97.9 98.4 98.7 Pulse 97 92 90 Resp 18 18 18 B/P (MAP) 123/74 (90) 130/69 (89) 148/83 (104) Pulse Ox 94 95 95 O2 Delivery Room Air Room Air Room Air Room Air 01/20/20 01/20/20 01/20/20 07:00 07:35 08:07 Temp 98.6 98.6 Pulse 93 93 Resp 18 B/P (MAP) 136/81 (99) 136/81 Pulse Ox 96 O2 Delivery Room Air Room Air Intake and Output 01/19/20 01/19/20 01/20/20 15:00 23:00 07:00 Intake Total 800 ml 700 ml 300 ml Output Total 2300 ml 575 ml Balance 800 ml -1600 ml -275 ml Justicifation of Admission Dx: Justifications for Admission: Justification of Admission Dx: Yes Aspiration Pneumonia: Hemodynamic Instability Sepsis: Altered Mental Status Altered Mental Status: Altered Mental Status ED GORDON MD Jan 20, 2020 10:29
[2020-01-20 11:00] VITALS: BP 139/61
--- NOTE | 2020-01-20 11:30 | PDOC ---
DATE OF SERVICE: DOS: DATE: 01/20/20 TIME: 11:28 SUBJECTIVE ROS Asked to see for acute renal insufficiency. Patient had minimal urine output from his catheter yesterday. Catheter was flushed and removed, thereafter he urinated 1.5 L however started passing clots and hence his Brooks catheter was replaced. There are plans to transfer him to a facility where urology care is available. He is feeling better already. CVS: no Orthopnea, no CP RESP: no SOB, no ROMAN GI: no Nausea, no Vomiting : no Dysuria, no Urgency OBJECTIVE Vital Signs Vital Signs Date Time Temp Pulse Resp B/P (MAP) Pulse Ox O2 Delivery O2 Flow Rate FiO2 01/20/20 11:00 98.0 93 18 139/61 (87) 96 Room Air 98.0 I & 0 Intake and Output 01/20/20 07:00 Intake Total 1800 ml Output Total 2875 ml Balance -1075 ml Intake Oral 1800 ml Output Urine Total 2875 ml # Bowel Movements 5 PHYSICAL EXAM Physical Exam GEN: Awake, Oriented x ?, In no distress, morbidly obese gentleman EYES: Sclera anicteric, Conjunctiva Normal EN: No EN Drainage, Mucous Membranes moist NECK: no JVD, or JVP, Supple, no palp Thyromegaly CVS: S1S2, no audible Murmur, No Gallop, No Rub,no Edema RESP: no Rales, no Rhonchi,no Acc. Muscle Use GI: BS + ve, NO Bruit, Non Tender, Non Distended : no CVA tenderness, no Suprapubic Tenderness DIAGNOSIS/ASSESSMENT Assessment & Plan Acute kidney injury: Somewhat worse today. Possibly associated with obstructive uropathy, hydronephrosis was noted on CT scan despite Brooks catheter placement. Anticipate transfer to facility with urology services. Current fluid and E-lyte status does not necessitate emergent need for dialysis. Gross hematuria is reported by nurse: Transfer to facility with urology services Mild metabolic acidosis: Non-anion gap. will change IV fluids to lactated Ringer's. Hydronephrosis as noted on CT scan: Urology evaluation as is being contemplated COMMENT/RELEVANT DATA Meds Current Medications Medications (Trade) Dose Ordered Sig/Serentiy Start Time Stop Time Status Last Admin Dose Admin Albumin Human 250 ml @ 62.5 mls/hr 1X ONCE 8/4/20 11:15 01/16/20 15:14 DC 01/16/20 11:33 62.5 MLS/HR Amlodipine Besylate (Norvasc) 5 mg DAILY 01/19/20 10:00 01/20/20 08:07 5 MG Ascorbic Acid (Vitamin C) 500 mg DAILY 01/19/20 09:30 01/20/20 08:07 500 MG Aspirin (Omkar Aspirin) 325 mg DAILYWBKFT 01/17/20 08:00 01/17/20 09:23 DC Aspirin (Ecotrin) 81 mg DAILYWBKFT 01/16/20 08:00 01/20/20 08:07 81 MG Atorvastatin Calcium (Lipitor) 20 mg QHS 01/19/20 21:00 01/19/20 20:52 20 MG Chlorhexidine Gluconate (Peridex) 15 ml BID 01/13/20 21:00 01/16/20 19:23 WI 01/16/20 08:59 15 ML Dextrose (Dextrose 50%-Water Syringe) 12.5 gm PRN Q15MIN PRN 01/16/20 12:45 Enoxaparin Sodium (Lovenox 40mg Syringe) 40 mg QHS 01/14/20 02:15 01/19/20 20:53 40 MG Enoxaparin Sodium (Lovenox Per Pharmacy Prophylaxis Dosing) 1 each PRN DAILY PRN 01/14/20 02:00 Etomidate (Amidate) 20 mg 1X ONCE 01/13/20 19:00 01/13/20 19:25 WI 01/13/20 19:52 20 MG Fentanyl Citrate 30 ml @ 0 mls/hr CONT PRN 01/14/20 16:00 01/17/20 12:18 WI 01/16/20 09:12 2.5 MLS/HR Fentanyl Citrate (Fentanyl 2ml Vial) 50 mcg PRN Q1HR PRN 01/13/20 18:45 01/16/20 19:23 WI 01/16/20 17:12 50 MCG Glucagon (Glucagen) 1 mg PRN Q15MIN PRN 01/14/20 09:30 01/15/20 04:12 1 MG Haloperidol Lactate (Haldol Inj) 5 mg 1X ONCE 01/16/20 18:00 01/16/20 18:01 DC 01/16/20 18:00 5 MG Hydromorphone HCl (Dilaudid) 0.5 mg 1X ONCE 01/19/20 11:45 01/19/20 11:46 DC 01/19/20 11:46 0.5 MG Insulin Glargine (Lantus Syringe) 24 unit QHS 01/20/20 21:00 Insulin Human Lispro (HumaLOG) 0-7 UNITS TIDWMEALS 01/16/20 17:00 01/20/20 11:20 4 UNITS Insulin Human Regular (HumuLIN R VIAL) 12 unit 1X ONCE 01/13/20 19:45 01/13/20 19:46 DC 01/13/20 19:45 12 UNIT Levofloxacin/ Dextrose 150 ml @ 100 mls/hr 1X ONCE 01/13/20 21:00 01/13/20 22:29 DC 01/13/20 21:05 100 MLS/HR Magnesium Sulfate 50 ml @ 25 mls/hr 1X ONCE 01/13/20 19:45 01/13/20 21:44 DC 01/14/20 01:11 25 MLS/HR Midazolam HCl 100 ml @ 0 mls/hr CONT PRN 01/13/20 22:15 01/17/20 12:18 DC 01/16/20 08:45 5 MLS/HR Midazolam HCl (Versed) 5 mg PRN Q1HR PRN 01/13/20 18:45 01/17/20 09:00 DC 01/13/20 19:53 5 MG Multivitamins (Thera M Plus) 1 tab DAILY 01/19/20 09:30 01/20/20 08:07 1 TAB Naloxone HCl (Narcan) 0.4 mg PRN Q2MIN PRN 01/14/20 16:00 Norepinephrine Bitartrate 32 mg/ Dextrose 250 ml @ 5.484 mls/ hr CONT PRN 01/14/20 07:45 01/17/20 12:18 DC 01/16/20 00:29 9.872 MLS/HR Norepinephrine Bitartrate 8 mg/ Dextrose 258 ml @ 22.678 mls/ hr CONT PRN 01/14/20 02:45 01/14/20 09:00 DC 01/14/20 02:42 32.9 MLS/HR Ondansetron HCl (Zofran) 4 mg PRN Q8HRS PRN 01/13/20 20:45 01/14/20 20:44 DC Pantoprazole Sodium (PROTONIX VIAL for IV PUSH) 40 mg DAILYAC 01/14/20 13:00 01/19/20 13:32 DC 01/19/20 08:31 40 MG Pantoprazole Sodium (Protonix) 40 mg DAILYAC 01/20/20 07:30 01/20/20 08:07 40 MG Piperacillin Sod/ Tazobactam Sod 4.5 gm/Sodium Chloride 100 ml @ 200 mls/hr Q6HRS 01/15/20 16:00 01/19/20 08:52 DC 01/19/20 06:27 200 MLS/HR Potassium Chloride 20 meq/ Dextrose/Sodium Chloride 1,010 ml @ 85 mls/hr [id number] 01/14/20 02:00 UNV Potassium Chloride/Dextrose/ Sod Cl 1,000 ml @ 85 mls/hr [id number] 01/14/20 02:15 01/14/20 21:20 DC 01/14/20 14:19 85 MLS/HR Potassium Chloride/Water 100 ml @ 100 mls/hr Q1H 01/14/20 11:00 01/14/20 14:59 DC 01/14/20 14:19 100 MLS/HR Rocuronium [place] (Zemuron) 50 mg 1X ONCE 01/13/20 19:00 01/13/20 19:25 DC 01/13/20 19:52 50 MG Sertraline HCl (Zoloft) 50 mg DAILY 01/19/20 17:30 01/20/20 08:07 50 MG Sodium Bicarbonate (Sodium Bicarb Adult 8.4% Syr) 50 meq STK-MED ONCE 01/16/20 14:11 01/16/20 14:12 DC Sodium Chloride 1,000 ml @ 75 mls/hr 1X ONCE 01/16/20 16:45 01/17/20 06:04 DC 01/16/20 17:07 75 MLS/HR Vancomycin HCl (Vanco Per Pharmacy) 1 each PRN DAILY PRN 01/13/20 19:45 01/19/20 08:55 DC 01/17/20 09:49 1 EACH Vancomycin HCl (Vancomycin Trough Level) 1 each 1X ONCE 01/16/20 22:30 01/16/20 22:31 DC 01/16/20 22:30 1 EACH Vancomycin HCl 1.75 gm/Sodium Chloride 500 ml @ 250 mls/hr Q18H 01/14/20 17:00 Cancel Vancomycin HCl 2 gm/Sodium Chloride 500 ml @ 250 mls/hr Q24H 01/14/20 23:00 01/19/20 08:52 DC 01/18/20 23:05 250 MLS/HR Vasopressin 20 unit/Dextrose 101 ml @ 12 mls/hr CONT PRN 01/14/20 09:45 01/17/20 12:18 DC Lab Laboratory Tests Test 01/19/20 16:21 01/19/20 20:33 01/20/20 03:30 01/20/20 07:52 Glucose (Fingerstick) 223 mg/dL (70-99) 247 mg/dL (70-99) 238 mg/dL (70-99) White Blood Count 8.4 x10^3/uL (4.0-11.0) Red Blood Count 3.13 x10^6/uL (4.30-5.70) Hemoglobin 9.8 g/dL (13.0-17.5) Hematocrit 28.5 % (39.0-53.0) Mean Corpuscular Volume 91 fL (79-100) Mean Corpuscular Hemoglobin 31 pg (25-35) Mean Corpuscular Hemoglobin Concent 35 g/dL (31-37) Red Cell Distribution Width 15.3 % (11.5-14.5) Platelet Count 171 x10^3/uL (140-400) Neutrophils (%) (Auto) 65 % (31-73) Lymphocytes (%) (Auto) 18 % (24-48) Monocytes (%) (Auto) 11 % (0-9) Eosinophils (%) (Auto) 5 % (0-3) Basophils (%) (Auto) 1 % (0-3) Neutrophils # (Auto) 5.5 x10^3/uL (1.8-7.7) Lymphocytes # (Auto) 1.5 x10^3/uL (1.0-4.8) Monocytes # (Auto) 0.9 x10^3/uL (0.0-1.1) Eosinophils # (Auto) 0.4 x10^3/uL (0.0-0.7) Basophils # (Auto) 0.0 x10^3/uL (0.0-0.2) Sodium Level 140 mmol/L (136-145) Potassium Level 3.5 mmol/L (3.5-5.1) Chloride Level 107 mmol/L (98-107) Carbon Dioxide Level 20 mmol/L (21-32) Anion Gap 13 (6-14) Blood Urea Nitrogen 18 mg/dL (8-26) Creatinine 1.6 mg/dL (0.7-1.3) Estimated GFR (Cockcroft-Gault) 43.5 BUN/Creatinine Ratio 11 (6-20) Glucose Level 258 mg/dL (70-99) Calcium Level 8.5 mg/dL (8.5-10.1) Total Bilirubin 0.4 mg/dL (0.2-1.0) Aspartate Amino Transf (AST/SGOT) 12 U/L (15-37) Alanine Aminotransferase (ALT/SGPT) 20 U/L (16-63) Alkaline Phosphatase 72 U/L (46-116) Total Protein 6.2 g/dL (6.4-8.2) Albumin 2.5 g/dL (3.4-5.0) Albumin/Globulin Ratio 0.7 (1.0-1.7) Test 01/20/20 11:10 Glucose (Fingerstick) 232 mg/dL (70-99) Results All relevant outside records, renal labs, imaging studies, telemetry/EKG's were reviewed. Other CT scan done yesterday showed Pancreas is somewhat atrophic. Adrenal glands unremarkable. There is mild bilateral hydroureter and pelvic caliectasis. No calcific renal or ureteral stone. Inflammatory stranding in the bilateral perinephric fat. The urinary bladder is moderately distended with Brooks catheter in place. Small amount of gas density in the bladder lumen. No apparent wall thickening. Justicifation of Admission Dx: Justifications for Admission: Justification of Admission Dx: Yes Aspiration Pneumonia: Hemodynamic Instability Sepsis: Altered Mental Status Altered Mental Status: Altered Mental Status TERRIE RUIZ MD Jan 20, 2020 11:29
[2020-01-20] MEDS ORDERED: IV RINGERS,LACTATED 1000ML 1,000 ML IV SCH (12:00)
[2020-01-20 15:00] VITALS: BP 150/76
--- NOTE | 2020-01-20 15:33 | PDOC3 ---
Discharge Summary Date of Admission: Jan 14, 2020 Date of Discharge: Jan 20, 2020 Follow-Up: 1-2 days Admitting Diagnosis comment: TRANSFER DX Acute encephalopathy Suicide attempt/ major depression Fall, found down on kitchen floor. Hyperglycemia and hypoglycemia DM. uncontrolled HTN. HLD. Cancer. Morbid obesity. Left BKA. Acute hypoxemic respiratory failure secondary to septic shock, source unknown, encephalopathy, acute kidney injury, rule out non-ST elevation myocardial infarction versus others. Abnormal chest x-ray. Acute kidney injury - likely vasomotor nephropathy Shock. Obstructive sleep apnea-hypopnea syndrome. History of cerebrovascular accident. Lower extremity edema BRYCE ON CT 01/18 mild hydronephrosis and hydroureter to the level of the urinary bladder which appears moderately distended. This could be related to intermittent bladder outlet obstruction or neurogenic bladder with chronic back pressure. Chronic vesicoureteral reflux is also possible. Underlying pyelonephritis and ureteritis not excluded. There is no calcific stone. GERD Mildly dilated fluid-filled thoracic esophagus, possibly related to chronic GE reflux or esophageal dysmotility. 01/17 HE STATES HE HAS BEEN VERY DEPRESSED RE 'S HEALTH, Living situation, of daughter 01/18 c/o llq abd discomfort, ct abd, pelvis pending 01/19 UROLOGY CONSULT NEEDED will try [facility] for transfer consultation SPEC #: [id number] LUI: 01/13/20 STATUS: COMP REQ #: [id number] RECD: 01/13/[address] [facility] [address]: DIPESH FELIPE DO SOURCE: BLOOD ENTR: 01/13/[address] [facility] DR: TEE BENAVIDES MD [facility]: ORDERED: BCULT Procedure Result BLOOD CULTURE Final NO GROWTH AFTER 5 DAYS 38 minutes time spent with pt exam, chart review d/c planning , > 50% of time spent with exam, chart review, pt care coordination History of Present Illness History of Present Illness He is a gentleman with multiple medical comorbidities and previous history of suicidal attempt brought in by his neighbor when he was found unresponsive by him. He has history of previous suicide attempt with same circumstances. At that point, he presumably took overdose of insulin. Patient was intubated, and extubated . Upon interview, he WAS responsive but confused. Continue to ruminate that he wanted to talk to his neighbor. He appears paranoid, when asked about intentions of overdose to take his life, he appears little bit upset and telling that he has the right to know who said it was an intentional overdose. He categorically denies that it was something intentional. He is portraying it as an accidental overdose. Denies divert depression and anxiety. Skeptical why he is labeled as a suicide attempt. Denies any intent or plan. He is upset that why is everyone judgmental however he is told that no one is judging him. Questions were being asked only for safety concern. Patient wanting to talk to his neighbor and asking fiction and nonfiction prose writer to call contact his neighbor right away. He is restless, argumentative, and verbally agitated. Also wanting to talk to his . Due to patient's limited insight, he is not communicating effectively. Reviewed H&P by this fiction and nonfiction prose writer from previous admission and read as: He is a pleasant gentleman admitted with intentional overdose on his prescribed insulin found unresponsive due to severe hypoglycemia. Reportedly, he overdosed with intentions to take his life. Reportedly, 2 weeks ago his 34-year-old daughter committed suicide by overdose. Upon interview he appears cooperative and interactive. States, 2 weeks ago his daughter who was living with him committed suicide by overdose. States, he found his daughter pulseless and cold. States, due to the stress of her and grief he was not processing and right direction. States, he was in deep grief and sad. States, his whom he for 39 years as hospitalized as well for hip replacement. However, he appears insightful, cognizant of the fact that "I made a stupid mistake which I shouldn't, and I apologize". States, he is adi in God and would like to do anything in future to harm her . States, when he spoke to his and told her that he was hospitalized for intentional overdose, she got very upset and scared. He is, he knows that "my doctors are in having and God will take care of it". He denies depression and treatment of depression. Chart review, indicates history of depression and reported medications citalopram 40 mg daily. When asked from patient, he couldn't recall diagnoses of depression or citalopram. States, he has learned his lesson. He denies hopelessness, insomnia, extremely sad mood, worthlessness, or loss of interest. He denies suicidal or homicidal thoughts intent or plan. He denies previous suicidal attempt or history of recurrent suicidal ideation, except for the last few days prior to attempts. He denies history of overt depression or anxiety, illicit substance use, bipolar mood disorder, psychosis, or PTSD. , is 24 years old daughter was with interstitial lung disease in 2004. Denies nightmares, flashbacks or chronic bereavement. He denies access to firearms. Mr Soliz is a 65 yo M w/ PMHx diabetes type 2, depression, dyslipidemia, hypertension, CVA, PVD s/p left BKA who comes to the hospital due to being found unresponsive by his neighbor. Patient has had suicide attempts in the past. There is possible concerns of empty pill bottles and insulin OD. History is obtained from ED physician charting and chart review. 01/14: ICU requiring high dose levophed and fluid boluses as well as vent. CXR reviewed with left middle platelike atelectasis. CT head did negative for acute findings. Afebrile. Hypoglycemic overnight started on D10 infusion. WBC 17 K Hb 10.40.8, glucose 80, mag 1.8, TSH 0.160. 01/15: Afebrile overnight. Vent 35% and PEEP of 5, and off sedation today. Still on low-dose Levophed. Not waking up very well. Labs stable glucose in the 200s. 01/17 await placement Afebrile. On room air . Was extubated late on 01/16/2020. Labs stable hemodynamically stable. He does admit to attempting suicide to me today notes after that suicide of his daughter and of his other daughter he has had suicidal thoughts for quite a while and due to the worsening health of his who had an infected hip arthroplasty and is now wheelchair-bound and the $300,000 each of them individually O and healthcare bills he felt hopeless and attempted to kill himself so that he could be with his daughters, he still feels hopeless at this time and still plans to be with his daughters in any way possible. He understands that inpatient psychiatric care would be appropriate a nd he is currently amenable to this, he wants to know if there is a better solution. Plan: We will wean O2 as tolerated Continue one-to-one sitter Psychiatry and PAT team to see Needs inpatient psych placement medical surgical floor Vitals Vitals Vital Signs Date Time Temp Pulse Resp B/P (MAP) Pulse Ox O2 Delivery O2 Flow Rate FiO2 01/20/20 08:07 93 136/81 01/20/20 07:35 Room Air 01/20/20 07:00 98.6 18 96 98.6 Physical Exam General: Alert, Oriented X3, Cooperative, No acute distress Heart: Regular rate, Normal S1 Lungs: Clear Abdomen: Normal bowel sounds Skin: No rashes Labs LABS CT abdomen pelvis without contrast dated 01/19/2020. No comparison available. CLINICAL INDICATION: Pain. TECHNIQUE: Contiguous axial imaging the abdomen pelvis performed without the administration of IV or oral contrast. One or more of the following individualized dose reduction techniques were utilized for this examination: 1. Automated exposure control 2. Adjustment of the mA and/or kV according to patient size 3. Use of iterative reconstruction technique. FINDINGS: Limited images of lung bases show small bilateral pleural effusions. Heart size is within normal limits. Small pericardial effusion. Coronary artery calcifications. The esophagus is mildly dilated and fluid-filled. There are borderline enlarged right hilar and subcarinal lymph nodes measuring up to 10 mm short axis. Patchy density in the lower lobes, likely atelectasis. Solid abdominal viscera not well evaluated in the absence of contrast material. No apparent attenuation abnormality of the liver or spleen. Gallbladder surgically absent. Trace amount of perihepatic ascites. Pancreas is somewhat atrophic. Adrenal glands unremarkable. There is mild bilateral hydroureter and pelvic caliectasis. No calcific renal or ureteral stone. Inflammatory stranding in the bilateral perinephric fat. The urinary bladder is moderately distended with Brooks catheter in place. Small amount of gas density in the bladder lumen. No apparent wall thickening. Unopacified GI tract normal in caliber and contour. No focal bowel wall thickening. No inflammatory changes in the mesentery. No adenopathy. Abdominal aorta is normal in caliber. Images of the pelvis show normal-sized prostate gland. No free fluid or pelvic lymphadenopathy. Diffuse vascular calcinosis. Bone windows show no acute findings. Multilevel spondylosis. IMPRESSION: 1. There is mild hydronephrosis and hydroureter to the level of the urinary bladder which appears moderately distended. This could be related to intermittent bladder outlet obstruction or neurogenic bladder with chronic back pressure. Chronic vesicoureteral reflux is also possible. Underlying pyelonephritis and ureteritis not excluded. There is no calcific stone. 2. Bibasilar airspace disease, likely atelectasis. There are small bilateral pleural effusions. 3. Mildly dilated fluid-filled thoracic esophagus, possibly related to chronic GE reflux or esophageal dysmotility. 4. Small pericardial effusion. 5. Small amount of ascites. Electronically signed by: Dipesh Garcia MD (01/19/2020 3:45 PM) [facility] [place] DICTATED and SIGNED BY: DIPESH GARCIA MD DATE: 01/19/20 1545 FINAL DIAGNOSIS Problems Medical Problems: (1) Acute renal insufficiency Status: Acute (2) Altered mental status Status: Acute (3) Aspiration pneumonia Status: Acute (4) Hyperglycemia Status: Acute (5) Hypomagnesemia Status: Acute (6) Septic shock Status: Acute Brief Hospital Course Mr. Soliz is a 65 old [sex] who presented with [ DRUG OVERDOSE, SUICIDE ATTEMPT ] CONDITION AT DISCHARGE: Comment (FAIR ) Discharge Medications Current Medications Sodium Chloride 1,000 ml @ 1,000 mls/hr 1X ONCE IV Last administered on 01/13/20at 18:20; Start 01/13/20 at 18:45; Stop 01/13/20 at 19:44; Status DC Sodium Chloride 1,000 ml @ 1,000 mls/hr 1X ONCE IV Last administered on 01/13/20at 18:35; Start 01/13/20 at 18:45; Stop 01/13/20 at 19:44; Status DC Fentanyl Citrate (Fentanyl 2ml Vial) 50 mcg PRN Q1HR PRN IV SEE COMMENTS Last administered on 01/16/20at 17:12; Start 01/13/20 at 18:45; Stop 01/16/20 at 19:23; Status DC Chlorhexidine Gluconate (Peridex) 15 ml BID MM Last administered on 01/16/20at 08:59; Start 01/13/20 at 21:00; Stop 01/16/20 at 19:23; Status DC Midazolam HCl (Versed) 5 mg PRN Q1HR PRN IV AGITATION Last administered on 01/13/20at 19:53; Start 01/13/20 at 18:45; Stop 01/17/20 at 09:00; Status DC Etomidate (Amidate) 20 mg STK-MED ONCE IV ; Start 01/13/20 at 18:58; Stop 01/13/20 at 18:59; Status DC Rocuronium [place] (Zemuron) 50 mg STK-MED ONCE .ROUTE ; Start 01/13/20 at 18:59; Stop 01/13/20 at 18:59; Status DC Rocuronium [place] (Zemuron) 50 mg 1X ONCE IV Last administered on 01/13/20at 19:52; Start 01/13/20 at 19:00; Stop 01/13/20 at 19:25; Status DC Etomidate (Amidate) 20 mg 1X ONCE IV Last administered on 01/13/20at 19:52; Start 01/13/20 at 19:00; Stop 01/13/20 at 19:25; Status DC Potassium Chloride/Water 100 ml @ 100 mls/hr Q1H IV Last administered on 01/14/20at 00:34; Start 01/13/20 at 19:15; Stop 01/13/20 at 23:14; Status DC Norepinephrine Bitartrate 8 mg/ Dextrose 258 ml @ 24.633 mls/ hr 1X ONCE IV Last administered on 01/13/20at 19:45; Start 01/13/20 at 19:45; Stop 01/14/20 at 06:13; Status DC Piperacillin Sod/ Tazobactam Sod 4.5 gm/Sodium Chloride 100 ml @ 200 mls/hr 1X ONCE IV Last administered on 01/13/20at 19:45; Start 01/13/20 at 19:45; Stop 01/13/20 at 20:14; Status DC Sodium Chloride 1,000 ml @ 1,000 mls/hr 1X ONCE IV Last administered on 01/13/20at 19:45; Start 01/13/20 at 19:45; Stop 01/13/20 at 20:44; Status DC Levofloxacin/ Dextrose 150 ml @ 100 mls/hr 1X ONCE IV Last administered on 01/13/20at 21:05; Start 01/13/20 at 21:00; Stop 01/13/20 at 22:29; Status DC Vancomycin HCl (Vanco Per Pharmacy) 1 each PRN DAILY PRN MC SEE COMMENTS Last administered on 01/17/20at 09:49; Start 01/13/20 at 19:45; Stop 01/19/20 at 08:55; Status DC Magnesium Sulfate 50 ml @ 25 mls/hr 1X ONCE IV Last administered on 01/14/20at 01:11; Start 01/13/20 at 19:45; Stop 01/13/20 at 21:44; Status DC Insulin Human Regular (HumuLIN R VIAL) 12 unit 1X ONCE SQ Last administered on 01/13/20at 19:45; Start 01/13/20 at 19:45; Stop 01/13/20 at 19:46; Status DC Ondansetron HCl (Zofran) 4 mg PRN Q8HRS PRN IV NAUSEA/VOMITING; Start 01/13/20 at 20:45; Stop 01/14/20 at 20:44; Status DC Insulin Human Lispro (HumaLOG) 0-5 UNITS TIDWMEALS SQ Last administered on 01/16/20at 08:43; Start 01/14/20 at 08:00; Stop 01/16/20 at 12:43; Status DC Dextrose (Dextrose 50%-Water Syringe) 12.5 gm PRN Q15MIN PRN IV SEE COMMENTS Last administered on 01/15/20at 00:41; Start 01/13/20 at 20:45; Stop 01/17/20 at 09:01; Status DC Sodium Chloride 1,000 ml @ 100 mls/hr 1X ONCE IV Last administered on 01/13/20at 21:10; Start 01/13/20 at 20:45; Stop 01/14/20 at 06:44; Status DC Vancomycin HCl 2 gm/Sodium Chloride 500 ml @ 250 mls/hr 1X ONCE IV Last administered on 01/13/20at 22:59; Start 01/13/20 at 21:00; Stop 01/13/20 at 22:59; Status DC Midazolam HCl 100 ml @ 0 mls/hr CONT PRN IV SEE PROTOCOL Last administered on 01/16/20at 08:45; Start 01/13/20 at 22:15; Stop 01/17/20 at 12:18; Status DC Vancomycin HCl 2 gm/Sodium Chloride 500 ml @ 250 mls/hr Q24H IV Last administered on 01/18/20at 23:05; Start 01/14/20 at 23:00; Stop 01/19/20 at 08:52; Status DC Vancomycin HCl (Vancomycin Trough Level) 1 each 1X ONCE MC Last administered on 01/15/20at 22:30; Start 01/15/20 at 22:30; Stop 01/15/20 at 22:31; Status DC Enoxaparin Sodium (Lovenox Per Pharmacy Prophylaxis Dosing) 1 each PRN DAILY PRN MC SEE COMMENTS; Start 01/14/20 at 02:00 Potassium Chloride 20 meq/ Dextrose/Sodium Chloride 1,010 ml @ 85 mls/hr Q1 1H53M IV ; Start 01/14/20 at 02:00; Status UNV Potassium Chloride/Dextrose/ Sod Cl 1,000 ml @ 85 mls/hr [id number] IV Last administered on 01/14/20at 14:19; Start 01/14/20 at 02:15; Stop 01/14/20 at 21:20; Status DC Enoxaparin Sodium (Lovenox 40mg Syringe) 40 mg QHS SQ Last administered on 01/19/20at 20:53; Start 01/14/20 at 02:15 Norepinephrine Bitartrate 8 mg/ Dextrose 258 ml @ 22.678 mls/ hr CONT PRN IV PER PROTOCOL Last administered on 01/14/20at 02:42; Start 01/14/20 at 02:45; Stop 01/14/20 at 09:00; Status DC Norepinephrine Bitartrate 32 mg/ Dextrose 250 ml @ 5.484 mls/ hr CONT PRN IV SEE I/O RECORD Last administered on 01/16/20at 00:29; Start 01/14/20 at 07:45; Stop 01/17/20 at 12:18; Status DC Glucagon (Glucagen) 1 mg PRN Q15MIN PRN IV LOW BLOOD SUGAR Last administered on 01/15/20at 04:12; Start 01/14/20 at 09:30 Vasopressin 20 unit/Dextrose 101 ml @ 12 mls/hr CONT PRN IV SEE I/O RECORD; Start 01/14/20 at 09:45; Stop 01/17/20 at 12:18; Status DC Potassium Chloride/Water 100 ml @ 100 mls/hr Q1H IV Last administered on 01/14/20at 14:19; Start 01/14/20 at 11:00; Stop 01/14/20 at 14:59; Status DC Vancomycin HCl 1.75 gm/Sodium Chloride 500 ml @ 250 mls/hr Q18H IV ; Start 01/14/20 at 17:00; Status Cancel Pantoprazole Sodium (PROTONIX VIAL for IV PUSH) 40 mg DAILYAC IVP Last administered on 01/19/20at 08:31; Start 01/14/20 at 13:00; Stop 01/19/20 at 13:32; Status DC Fentanyl Citrate 30 ml @ 0 mls/hr CONT PRN IV SEE I/O RECORD; Start 01/14/20 at 16:00; Status Cancel Naloxone HCl (Narcan) 0.4 mg PRN Q2MIN PRN IV SEE INSTRUCTIONS; Start 01/14/20 at 16:00 Sodium Chloride 1,000 ml @ 25 mls/hr Q24H IV Last administered on 01/17/20at 11:30; Start 01/14/20 at 15:52; Stop 01/18/20 at 15:21; Status DC Fentanyl Citrate 30 ml @ 0 mls/hr CONT PRN IV SEE PROTOCOL Last administered on 01/16/20at 09:12; Start 01/14/20 at 16:00; Stop 01/17/20 at 12:18; Status DC Dextrose 1,000 ml @ 75 mls/hr [id number] IV Last administered on 01/15/20at 11:15; Start 01/14/20 at 21:30; Stop 01/15/20 at 15:50; Status DC Sodium Chloride 1,000 ml @ 1,000 mls/hr 1X ONCE IV Last administered on 01/15/20at 09:48; Start 01/15/20 at 09:45; Stop 01/15/20 at 10:44; Status DC Sodium Chloride 500 ml @ 500 mls/hr 1X ONCE IV Last administered on 01/15/20at 12:30; Start 01/15/20 at 12:30; Stop 01/15/20 at 13:29; Status DC Piperacillin Sod/ Tazobactam Sod 4.5 gm/Sodium Chloride 100 ml @ 200 mls/hr Q6HRS IV Last administered on 01/19/20at 06:27; Start 01/15/20 at 16:00; Stop 01/19/20 at 08:52; Status DC Aspirin (Ecotrin) 81 mg DAILYWBKFT PO Last administered on 01/20/20at 08:07; Sta rt 01/16/20 at 08:00 Albumin Human 250 ml @ 62.5 mls/hr 1X ONCE IV Last administered on 01/16/20at 11:33; Start 01/16/20 at 11:15; Stop 01/16/20 at 15:14; Status DC Aspirin (Omkar Aspirin) 325 mg DAILYWBKFT PO ; Start 01/17/20 at 08:00; Stop 01/17/20 at 09:23; Status DC Atorvastatin Calcium (Lipitor) 20 mg QHS PO ; Start 01/16/20 at 21:00; Stop 01/16/20 at 12:45; Status DC Insulin Glargine (Lantus Syringe) 20 unit QHS SQ Last administered on 01/19/20at 21:00; Start 01/16/20 at 21:00; Stop 01/20/20 at 10:29; Status DC Insulin Human Lispro (HumaLOG) 0-7 UNITS TIDWMEALS SQ Last administered on 01/20/20 11:20; Start 01/16/20 at 17:00 Dextrose (Dextrose 50%-Water Syringe) 12.5 gm PRN Q15MIN PRN IV SEE COMMENTS; Start 01/16/20 at 12:45 Sodium Bicarbonate (Sodium Bicarb Adult 8.4% Syr) 50 meq 1X ONCE IV Last administered on 01/16/20at 14:13; Start 01/16/20 at 14:15; Stop 01/16/20 at 14:16; Status DC Sodium Bicarbonate (Sodium Bicarb Adult 8.4% Syr) 50 meq 1X ONCE IV Last administered on 01/16/20at 14:13; Start 01/16/20 at 14:15; Stop 01/16/20 at 14:16; Status DC Sodium Bicarbonate (Sodium Bicarb Adult 8.4% Syr) 50 meq STK-MED ONCE .ROUTE ; Start 01/16/20 at 14:11; Stop 01/16/20 at 14:12; Status DC Sodium Chloride 1,000 ml @ 75 mls/hr 1X ONCE IV Last administered on 01/16/20at 17:07; Start 01/16/20 at 16:45; Stop 01/17/20 at 06:04; Status DC Vancomycin HCl (Vancomycin Trough Level) 1 each 1X ONCE MC Last administered on 01/16/20 22:30; Start 01/16/20 at 22:30; Stop 01/16/20 at 22:31; Status DC Haloperidol Lactate (Haldol Inj) 5 mg PRN Q6HRS PRN IVP AGITATION Last administered on 01/19/20at 08:31; Start 01/16/20 at 18:00 Haloperidol Lactate (Haldol Inj) 5 mg 1X ONCE IVP Last administered on 01/16/20at 18:00; Start 01/16/20 at 18:00; Stop 01/16/20 at 18:01; Status DC Multivitamins (Thera M Plus) 1 tab DAILY PO Last administered on 01/20/20 08:07; Start 01/19/20 at 09:30 Ascorbic Acid (Vitamin C) 500 mg DAILY PO Last administered on 01/20/20 08:07; Start 01/19/20 at 09:30 Amlodipine Besylate (Norvasc) 5 mg DAILY PO Last administered on 01/20/20 08:07; Start 01/19/20 at 10:00 Atorvastatin Calcium (Lipitor) 20 mg QHS PO Last administered on 01/19/20 20:52; Start 01/19/20 at 21:00 Hydromorphone HCl (Dilaudid) 0.5 mg 1X ONCE IV Last administered on 01/19/20 11:46; Start 01/19/20 at 11:45; Stop 01/19/20 at 11:46; Status DC Pantoprazole Sodium (Protonix) 40 mg DAILYAC PO Last administered on 01/20/20 08:07; Start 01/20/20 at 07:30 Sertraline HCl (Zoloft) 50 mg DAILY PO Last administered on 01/20/20 08:07; Start 01/19/20 at 17:30 Insulin Glargine (Lantus Syringe) 24 unit QHS SQ ; Start 01/20/20 at 21:00 Ringer's Solution 1,000 ml @ 75 mls/hr [id number] IV Last administered on 01/20/20at 11:58; Start 01/20/20 at 12:00 Active Scripts Active Aspirin 325 Mg Tablet 325 Mg PO DAILYWBKFT 30 Days Atorvastatin Calcium 20 Mg Tablet 20 Mg PO QHS 30 Days Reported Trazodone Hcl 50 Mg Tablet 1 Tab PO QHS Celexa (Citalopram Hydrobromide) 10 Mg Tablet 1 Tab PO DAILY Lantus Solostar (Insulin Glargine,Hum.rec.anlog) 100 Unit/1 Ml Insuln.pen 65 Unit SQ QHS Gabapentin (Gabapentin) 300 Mg Capsule 300 Mg PO TID Nexium Capsule (Esomeprazole Magnesium) 20 Mg Capsule.dr 1 Cap PO DAILY Actos (Pioglitazone Hcl) 30 Mg Tablet 30 Mg PO DAILY Metformin Hcl 500 Mg Tablet 500 Mg PO BIDWMEALS Vital Signs Vital Signs Date Time Temp Pulse Resp B/P (MAP) Pulse Ox O2 Delivery O2 Flow Rate FiO2 01/20/20 11:00 98.0 93 18 139/61 (87) 96 Room Air 98.0 Labs Laboratory Tests Test 01/18/20 16:56 01/18/20 20:27 01/18/20 21:00 01/19/20 07:05 Glucose (Fingerstick) 267 mg/dL (70-99) 232 mg/dL (70-99) 198 mg/dL (70-99) Stool Campylobacter PCR Negative (NEGATIVE) Stool E. coli Shiga Toxins (PCR) Negative (NEGATIVE) Stool Salmonella PCR Negative (NEGATIVE) Stool Shigella PCR Negative (NEGATIVE) Clostridium difficile Toxin (PCR) Negative (NEGATIVE) Test 01/19/20 08:00 01/19/20 11:08 01/19/20 16:21 01/19/20 20:33 White Blood Count 6.8 x10^3/uL (4.0-11.0) Red Blood Count 3.22 x10^6/uL (4.30-5.70) Hemoglobin 10.5 g/dL (13.0-17.5) Hematocrit 29.2 % (39.0-53.0) Mean Corpuscular Volume 91 fL (79-100) Mean Corpuscular Hemoglobin 33 pg (25-35) Mean Corpuscular Hemoglobin Concent 36 g/dL (31-37) Red Cell Distribution Width 15.3 % (11.5-14.5) Platelet Count 149 x10^3/uL (140-400) Neutrophils (%) (Auto) 73 % (31-73) Lymphocytes (%) (Auto) 14 % (24-48) Monocytes (%) (Auto) 11 % (0-9) Eosinophils (%) (Auto) 2 % (0-3) Basophils (%) (Auto) 1 % (0-3) Neutrophils # (Auto) 5.0 x10^3/uL (1.8-7.7) Lymphocytes # (Auto) 0.9 x10^3/uL (1.0-4.8) Monocytes # (Auto) 0.7 x10^3/uL (0.0-1.1) Eosinophils # (Auto) 0.2 x10^3/uL (0.0-0.7) Basophils # (Auto) 0.0 x10^3/uL (0.0-0.2) Sodium Level 144 mmol/L (136-145) Potassium Level 3.5 mmol/L (3.5-5.1) Chloride Level 110 mmol/L (98-107) Carbon Dioxide Level 19 mmol/L (21-32) Anion Gap 15 (6-14) Blood Urea Nitrogen 15 mg/dL (8-26) Creatinine 1.4 mg/dL (0.7-1.3) Estimated GFR (Cockcroft-Gault) 50.7 BUN/Creatinine Ratio 11 (6-20) Glucose Level 212 mg/dL (70-99) Calcium Level 8.9 mg/dL (8.5-10.1) Total Bilirubin 0.5 mg/dL (0.2-1.0) Aspartate Amino Transf (AST/SGOT) 18 U/L (15-37) Alanine Aminotransferase (ALT/SGPT) 20 U/L (16-63) Alkaline Phosphatase 86 U/L (46-116) Total Protein 6.3 g/dL (6.4-8.2) Albumin 2.7 g/dL (3.4-5.0) Albumin/Globulin Ratio 0.8 (1.0-1.7) Glucose (Fingerstick) 228 mg/dL (70-99) 223 mg/dL (70-99) 247 mg/dL (70-99) Test 01/20/20 03:30 01/20/20 07:52 01/20/20 11:10 White Blood Count 8.4 x10^3/uL (4.0-11.0) Red Blood Count 3.13 x10^6/uL (4.30-5.70) Hemoglobin 9.8 g/dL (13.0-17.5) Hematocrit 28.5 % (39.0-53.0) Mean Corpuscular Volume 91 fL (79-100) Mean Corpuscular Hemoglobin 31 pg (25-35) Mean Corpuscular Hemoglobin Concent 35 g/dL (31-37) Red Cell Distribution Width 15.3 % (11.5-14.5) Platelet Count 171 x10^3/uL (140-400) Neutrophils (%) (Auto) 65 % (31-73) Lymphocytes (%) (Auto) 18 % (24-48) Monocytes (%) (Auto) 11 % (0-9) Eosinophils (%) (Auto) 5 % (0-3) Basophils (%) (Auto) 1 % (0-3) Neutrophils # (Auto) 5.5 x10^3/uL (1.8-7.7) Lymphocytes # (Auto) 1.5 x10^3/uL (1.0-4.8) Monocytes # (Auto) 0.9 x10^3/uL (0.0-1.1) Eosinophils # (Auto) 0.4 x10^3/uL (0.0-0.7) Basophils # (Auto) 0.0 x10^3/uL (0.0-0.2) Sodium Level 140 mmol/L (136-145) Potassium Level 3.5 mmol/L (3.5-5.1) Chloride Level 107 mmol/L (98-107) Carbon Dioxide Level 20 mmol/L (21-32) Anion Gap 13 (6-14) Blood Urea Nitrogen 18 mg/dL (8-26) Creatinine 1.6 mg/dL (0.7-1.3) Estimated GFR (Cockcroft-Gault) 43.5 BUN/Creatinine Ratio 11 (6-20) Glucose Level 258 mg/dL (70-99) Calcium Level 8.5 mg/dL (8.5-10.1) Total Bilirubin 0.4 mg/dL (0.2-1.0) Aspartate Amino Transf (AST/SGOT) 12 U/L (15-37) Alanine Aminotransferase (ALT/SGPT) 20 U/L (16-63) Alkaline Phosphatase 72 U/L (46-116) Total Protein 6.2 g/dL (6.4-8.2) Albumin 2.5 g/dL (3.4-5.0) Albumin/Globulin Ratio 0.7 (1.0-1.7) Glucose (Fingerstick) 238 mg/dL (70-99) 232 mg/dL (70-99) Laboratory Tests Test 01/19/20 16:21 01/19/20 20:33 01/20/20 03:30 01/20/20 07:52 Glucose (Fingerstick) 223 mg/dL (70-99) 247 mg/dL (70-99) 238 mg/dL (70-99) White Blood Count 8.4 x10^3/uL (4.0-11.0) Red Blood Count 3.13 x10^6/uL (4.30-5.70) Hemoglobin 9.8 g/dL (13.0-17.5) Hematocrit 28.5 % (39.0-53.0) Mean Corpuscular Volume 91 fL (79-100) Mean Corpuscular Hemoglobin 31 pg (25-35) Mean Corpuscular Hemoglobin Concent 35 g/dL (31-37) Red Cell Distribution Width 15.3 % (11.5-14.5) Platelet Count 171 x10^3/uL (140-400) Neutrophils (%) (Auto) 65 % (31-73) Lymphocytes (%) (Auto) 18 % (24-48) Monocytes (%) (Auto) 11 % (0-9) Eosinophils (%) (Auto) 5 % (0-3) Basophils (%) (Auto) 1 % (0-3) Neutrophils # (Auto) 5.5 x10^3/uL (1.8-7.7) Lymphocytes # (Auto) 1.5 x10^3/uL (1.0-4.8) Monocytes # (Auto) 0.9 x10^3/uL (0.0-1.1) Eosinophils # (Auto) 0.4 x10^3/uL (0.0-0.7) Basophils # (Auto) 0.0 x10^3/uL (0.0-0.2) Sodium Level 140 mmol/L (136-145) Potassium Level 3.5 mmol/L (3.5-5.1) Chloride Level 107 mmol/L (98-107) Carbon Dioxide Level 20 mmol/L (21-32) Anion Gap 13 (6-14) Blood Urea Nitrogen 18 mg/dL (8-26) Creatinine 1.6 mg/dL (0.7-1.3) Estimated GFR (Cockcroft-Gault) 43.5 BUN/Creatinine Ratio 11 (6-20) Glucose Level 258 mg/dL (70-99) Calcium Level 8.5 mg/dL (8.5-10.1) Total Bilirubin 0.4 mg/dL (0.2-1.0) Aspartate Amino Transf (AST/SGOT) 12 U/L (15-37) Alanine Aminotransferase (ALT/SGPT) 20 U/L (16-63) Alkaline Phosphatase 72 U/L (46-116) Total Protein 6.2 g/dL (6.4-8.2) Albumin 2.5 g/dL (3.4-5.0) Albumin/Globulin Ratio 0.7 (1.0-1.7) Test 8/8/20 11:10 Glucose (Fingerstick) 232 mg/dL (70-99) Allergies Allergies Coded Allergies Type Severity Reaction Last Updated Verified morphine Allergy Intermediate 02/19/17 Yes I S O L A T I O N *CONTACT* Allergy Unknown 05/10/17 Yes Disposition/Orders: D/C to Another Facility Justicifation of Admission Dx: Justifications for Admission: Justification of Admission Dx: Yes Aspiration Pneumonia: Hemodynamic Instability Sepsis: Altered Mental Status Altered Mental Status: Altered Mental Status ED GORDON MD Jan 20, 2020 15:33
--- NOTE | 2020-01-20 17:03 | NUR ---
Received order from Dr. Jose to transfer patient to [facility] and that Dr. Do would be accepting the patient. Cro faxed Brandt H&P, progress notes, and face sheet to [phone], phone number [phone]. [address] Jose, patient is to continue all medications that were active here at [facility], com writer printed out medication list and completed to be sent in packet to transfer hospital. Spoke to DANK Nowak at [facility] and gave report on patient, plan of care, medications, tests, zelaya, IJ catheter, skin, etc. Eliu's number is [phone]. Patient is to be transferred to ICU bed#11. Tomi Yo, nursing treatment supervisor, transport to be set up. Addendum: 01/20/20 at 1731 by NATALIE CESAR RN Notified patients justice Yo of patient transfer, she thanked com writer.
[2020-01-20 18:00] VITALS: BP 138/68
--- NOTE | 2020-01-20 19:04 | NUR ---
Patent left unit at 1900 by EMS. Belongings were taken with patient. RN who will be taking patient tonight was called by this RN.
[2020-01-20] MEDS ORDERED: INSULIN GLARGINE SYRINGE. SQ SCH (21:00)
== END 2020-01-20 19:12 | disposition short-term general hospital (02) | DRG 871 ==
LOC: ER 18:01 → 1 WEST ICU 20:35 → 4 NORTH 01-17 18:34
PROVIDERS: ADMIT Internal Medicine; ATTEND Internal Medicine
PROC: 5A1945Z Respiratory Ventilation, 24-96 Consecutive Hours (ICD-10-PCS; principal; 2020-01-13)
PROC: 0BH17EZ Insertion of Endotracheal Airway into Trachea, Via Natural or Artificial Opening (ICD-10-PCS; 2020-01-13)
PROC: 02HV33Z Insertion of Infusion Device into Superior Vena Cava, Percutaneous Approach (ICD-10-PCS; 2020-01-13)
DX: A41.9 Sepsis, unspecified organism (principal); J96.01 Acute respiratory failure with hypoxia; N17.0 Acute kidney failure with tubular necrosis; G93.41 Metabolic encephalopathy; J69.0 Pneumonitis due to inhalation of food and vomit; N18.6 End stage renal disease; R65.21 Severe sepsis with septic shock; I21.4 Non-ST elevation (NSTEMI) myocardial infarction; F05 Delirium due to known physiological condition; F33.2 Major depressive disorder, recurrent severe without psychotic features; I12.0 Hypertensive chronic kidney disease with stage 5 chronic kidney disease or end stage renal disease; I24.8 Other forms of acute ischemic heart disease; I31.3 Pericardial effusion (noninflammatory); I82.412 Acute embolism and thrombosis of left femoral vein; J44.0 Chronic obstructive pulmonary disease with (acute) lower respiratory infection; J98.11 Atelectasis; N13.30 Unspecified hydronephrosis; Z99.11 Dependence on respirator [ventilator] status; T38.3X2A Poisoning by insulin and oral hypoglycemic [antidiabetic] drugs, intentional self-harm, initial encounter; D63.8 Anemia in other chronic diseases classified elsewhere; E11.22 Type 2 diabetes mellitus with diabetic chronic kidney disease; E11.42 Type 2 diabetes mellitus with diabetic polyneuropathy; E11.610 Type 2 diabetes mellitus with diabetic neuropathic arthropathy; E11.649 Type 2 diabetes mellitus with hypoglycemia without coma; E11.65 Type 2 diabetes mellitus with hyperglycemia; E66.01 Morbid (severe) obesity due to excess calories; E78.00 Pure hypercholesterolemia, unspecified; E78.5 Hyperlipidemia, unspecified; E83.42 Hypomagnesemia; E87.6 Hypokalemia; F41.9 Anxiety disorder, unspecified; G47.33 Obstructive sleep apnea (adult) (pediatric); I16.0 Hypertensive urgency; K21.9 Gastro-esophageal reflux disease without esophagitis; K22.70 Barrett's esophagus without dysplasia; K64.9 Unspecified hemorrhoids; M46.02 Spinal enthesopathy, cervical region; M47.9 Spondylosis, unspecified; R13.13 Dysphagia, pharyngeal phase; Z20.828 Contact with and (suspected) exposure to other viral communicable diseases; Z79.4 Long term (current) use of insulin; Z79.899 Other long term (current) drug therapy; Z81.8 Family history of other mental and behavioral disorders; Z83.3 Family history of diabetes mellitus; Z86.73 Personal history of transient ischemic attack (TIA), and cerebral infarction without residual deficits; Z89.512 Acquired absence of left leg below knee; Z90.49 Acquired absence of other specified parts of digestive tract; Z91.5 Personal history of self-harm; Z96.649 Presence of unspecified artificial hip joint; M19.90 Unspecified osteoarthritis, unspecified site
CPT/HCPCS: 31500; 36415; 36556; 36600; 51702; 70450; 71045; 72125; 74176; 80048; 80053; 80061; 80069; 80202; 80307; 81001; 82010; 82140; 82553; 82607; 82805; 82962; 83605; 83690; 83735; 83880; 84145; 84443; 84484; 84681; 85007; 85025; 85027; 85610; 85730; 87040; 87493; 87505; 93005; 93306; 93970; 94002; 94003; C9113; G0480; J1170; J1610; J1630; J1650; J1815; J1956; J2250; J2543; J3010; J3370; J3475; J3480; J3490; J7030; J7040; J7060; J7120; P9041; 92526-GN; 92610-GN; 97110-GO; 97110-GP; 97530-GO; 97530-GP; 99291-25; G0378; U0003-CS